=== PATIENT | female | born 1940 | race Caucasian/White ===

== ENCOUNTER → 2017-07-22 | Outpatient (CLI) | payer MEDICARE, BC ==
--- NOTE | 2017-07-22 15:43 | US ---
EXAMINATION TYPE: US thyroid st tissue head/neck DATE OF EXAM: 07/22/2017 COMPARISON: Prior thyroid ultrasound June 14, 2015 CLINICAL HISTORY: L65.9 Hair loss, R53.83 Fatigue. Pt states recent changes in hair loss, fatigue/ fo llow-up GLAND SIZE: Right Lobe: Surgically absent Left Lobe: 5.2 x 2.3 x 2.0 cm Overall Parenchyma: Heterogeneous Isthmus Thickness: 0.4 cm NODULES LEFT: # of nodules measured on left: 2 1. 2.5 X 1.0 x 2.0 cm hypoechoic mixed nodule at the upper pole with well-defined margins; This nod ule is wider than tall and shows intranodular vascularity. Prior size: 2.6 x 1.0 x 1.7 cm 2. 1.4 X 1.0 x 1.4 cm hypoechoic mixed nodule at the lower pole with well-defined margins; This nod ule is wider than tall and shows no intranodular vascularity. Prior size: 0.8 x 0.7 x 0.5 cm ISTHMUS: # of nodules measured in the isthmus: 1 1. 0.9 X 0.5 x 0.7 cm hypoechoic mixed nodule with well-defined margins; This nodule is wider yolanda n tall and shows intranodular vascularity. Prior size: 0.8 x 0.5 x 0.7 cm Bilateral neck scanned, no evidence of lymphadenopathy. Multiple nodules on left, only largest 2 michael ured to compare to previous/ Right lobe surgically absent Heterogeneous prominent left thyroid with scattered mixed nodules remains present. IMPRESSION: Heterogeneous enlarged left thyroid with scattered stable mixed nodules, no definitive new greater th an 1 cm solid or cystic nodules. No suspicious recurrent tissue right thyroid bed.
== END | disposition home or self-care (01) ==
LOC: RADUSWWP 15:01
PROVIDERS: ATTEND Surgery
DX: E04.9 Nontoxic goiter, unspecified (principal); R53.83 Other fatigue; L65.9 Nonscarring hair loss, unspecified
CPT/HCPCS: 76536; 84439; 84443; 84481

== ENCOUNTER → 2017-08-04 | Outpatient (CLI) | payer MEDICARE, BC | END | disposition home or self-care (01) | LOC: LABWHC1 16:11 | PROVIDERS: ATTEND Otolaryngology | DX: J39.2 Other diseases of pharynx (principal) | CPT/HCPCS: 36415; 82565; 84520 ==

== ENCOUNTER → 2017-09-03 | Outpatient (CLI) | payer MEDICARE, BC ==
--- NOTE | 2017-09-04 10:06 | MM ---
Reason for exam: additional evaluation requested from abnormal screening. Last mammogram was performed less than 1 month ago. History: Patient is postmenopausal. Took estrogen for 8 years beginning at age 48. Physical Findings: Nurse did not find any significant physical abnormalities on exam. MG 3D Work Up W/Cad RT Spot compression CC, spot compression MLO, and LM view(s) were taken of the right breast. Prior study comparison: August 25, 2017, bilateral MG 3d screening mammo w/cad. July 02, 2016, bilateral MG 3d screening mammo w/cad. The breast tissue is heterogeneously dense. This may lower the sensitivity of mammography. No suspicious abnormality. The previously seen focal asymmetry resolves on additional views and appear as fibroglandular tissue/overlap. These results were verbally communicated with the patient and result sheet given to the patient on 09/03/17. ASSESSMENT: Negative, BI-RAD 1 RECOMMENDATION: Return to routine screening mammogram schedule for both breasts.
== END | disposition home or self-care (01) ==
LOC: RADMAMWWP 09:18
PROVIDERS: ATTEND Family Medicine
DX: R92.8 Other abnormal and inconclusive findings on diagnostic imaging of breast (principal)
CPT/HCPCS: G0206; G0279

== ENCOUNTER 2017-11-29 14:33 | Emergency (ER) | payer MEDICARE, BC ==
[2017-11-29 14:48] VITALS: TEMP 98.3
[2017-11-29] MEDS ORDERED: IPRATROPIUM-ALBUTEROL 3 ML NEB INHALATION STA (14:59)
--- NOTE | 2017-11-29 15:01 | ED ---
General Adult HPI - General Chief complaint: Back Pain/Injury Stated complaint: Back pain Time Seen by Provider: 11/29/17 14:51 Source: patient, family, RN notes reviewed Mode of arrival: wheelchair Limitations: no limitations - History of Present Illness Initial comments: Patient is a pleasant 77-year-old female presenting to the emergency department with complaints of upper back discomfort. Patient was diagnosed with bronchitis and has been having cough for the past one to 2 weeks. Cough is nonproductive. No fevers. Patient does have a history of mild COPD. Back discomfort started just prior to arrival. No trauma. Patient is also feeling somewhat short of breath. Area of discomfort is the mid thoracic region. - Related Data Home Medications Medication Instructions Recorded Confirmed Loratadine [Claritin] 10 mg PO DAILY 03/18/15 11/29/17 Insulin Detemir [Levemir] 16 unit SQ HS 04/01/16 11/29/17 Insulin Lispro [humaLOG Kwikpen] See Protocol SQ AC-TID PRN 04/01/16 11/29/17 [facility]-3 Fatty Acids/Fish Oil [Fish 1 cap PO DAILY 04/01/16 11/29/17 Oil 1,000 mg Softgel] amLODIPine [Norvasc] 10 mg PO DAILY 04/01/16 11/29/17 Temazepam [Temazepam] 30 mg PO HS 04/09/16 11/29/17 Cholecalciferol [Vitamin D3] 1,000 unit PO DAILY 07/30/17 11/29/17 Montelukast Sodium [Singulair] 10 mg PO HS 07/30/17 11/29/17 Albuterol Nebulized [Ventolin 2.5 mg INHALATION RT-Q4H PRN 11/29/17 11/29/17 Nebulized] Biotin 5 mg PO DAILY 11/29/17 11/29/17 Losartan Potassium [Cozaar] 50 mg PO DAILY 11/29/17 11/29/17 Promethazine HCl/Codeine 5 ml PO Q6H PRN 11/29/17 11/29/17 [Prometh-Codein 6.25-10 mg/5 ml] Simvastatin [Zocor] 5 mg PO HS 11/29/17 11/29/17 predniSONE See Taper PO DIRECTED 11/29/17 11/29/17 Allergies Allergy/AdvReac Type Severity Reaction Status Date / Time sulfamethoxazole AdvReac Unknown Verified 11/29/17 16:35 [From Bactrim] trimethoprim [From Bactrim] AdvReac Unknown Verified 11/29/17 16:35 Review of Systems ROS Statement: Those systems with pertinent positive or pertinent negative responses have been documented in the HPI. ROS Other: All systems not noted in ROS Statement are negative. Constitutional: Denies: fever, chills Eyes: Denies: eye pain ENT: Denies: throat pain Respiratory: Reports: cough, dyspnea Cardiovascular: Denies: chest pain Endocrine: Denies: fatigue Gastrointestinal: Denies: abdominal pain, vomiting Genitourinary: Denies: dysuria Musculoskeletal: Reports: back pain Skin: Denies: rash Neurological: Denies: weakness Past Medical History Past Medical History: Diabetes Mellitus, Hypertension, Musculoskeletal Disorder , Sleep Apnea/CPAP/BIPAP, Thyroid Disorder Additional Past Medical History / Comment(s): HX OF THYROID NODULES, HX OF RUPTURED DISCS, SLEEP APNEA WITH BI-PAP MACHINE, [employer] PACEMAKER. History of Any Multi-Drug Resistant Organisms: None Reported Past Surgical History: Appendectomy, Back Surgery, Bariatric Surgery, Coronary Bypass/CABG, Heart Catheterization, Hysterectomy, Pacemaker Additional Past Surgical History / Comment(s): LAP BAND, CATARACT LEFT EYE, NEUROMA ON FOOT, KNEE ARTHROSCOPY, PACEMAKER ([employer] 04/18/2015) Partial thyroidectomy 1999 Past Anesthesia/Blood Transfusion Reactions: No Reported Reaction Type of Cardiac Device: Permanent Pacemaker Device Placement Date:: 04/18/2015 [employer] Past Psychological History: No Psychological Hx Reported Smoking Status: Current every day smoker Past Alcohol Use History: Occasional Past Drug Use History: None Reported - Past Family History Son(s) Family Medical History: Cancer Additional Family Medical History / Comment(s): MELANOMA Father History Unknown: Yes Family Medical History: Cancer Mother Family Medical History: Coronary Artery Disease (CAD) General Exam Limitations: no limitations General appearance: alert, in no apparent distress Head exam: Present: atraumatic Eye exam: Present: normal appearance ENT exam: Present: normal oropharynx Neck exam: Present: normal inspection Respiratory exam: Present: normal lung sounds bilaterally. Absent: chest wall tenderness Cardiovascular Exam: Present: regular rate, normal rhythm Expanded Peripheral pulses: 2+: Radial (R), Radial (L), Posterior Tibialis (R), Posterior Tibialis (L) GI/Abdominal exam: Present: soft. Absent: tenderness Extremities exam: Present: normal inspection. Absent: pedal edema, calf tenderness Back exam: Present: normal inspection. Absent: tenderness Neurological exam: Present: alert Psychiatric exam: Present: normal affect, normal mood Skin exam: Present: normal color. Absent: rash Course Vital Signs 11/29/17 11/29/17 11/29/17 14:46 15:15 15:28 Temperature 98.3 F Pulse Rate 64 66 68 Respiratory 18 Rate Blood Pressure 138/65 Blood Pressure [Left Arm] Blood Pressure [Right Arm] O2 Sat by Pulse 96 Oximetry 11/29/17 11/29/17 16:47 19:20 Temperature Pulse Rate 89 Respiratory 20 Rate Blood Pressure 147/82 Blood Pressure 179/77 [Left Arm] Blood Pressure 173/81 [Right Arm] O2 Sat by Pulse 96 Oximetry EKG Findings - EKG Comments: EKG Findings:: Paced rhythm at 61. AL 186. QRS 98. QT 406. QTc 408. Left axis. LVH criteria. Biphasic lateral T waves. Medical Decision Making - Medical Decision Making Patient reevaluated and resting comfortably in bed. Patient now symptom-free. Patient and family updated on results. Patient also notified of limitations of tests in the emergency department. Patient is advised admission. Patient is made aware that heart disease and other causes of her back discomfort have not been completely ruled out at this time. Plan was for patient to stay overnight with repeat testing and cardiology evaluation. Patient states she does not have any symptoms at this time and does not want to stay. Patient is advised she would need to leave AGAINST MEDICAL ADVICE. Patient does demonstrate medical decision making. Family is present. - Lab Data Result diagrams: 11/29/17 15:07 11/29/17 15:07 Lab Results 11/29/17 11/29/17 11/29/17 Range/Units 15:07 15:07 15:07 WBC 11.6 H (3.8-10.6) k/uL RBC 4.83 (3.80-5.40) m/uL Hgb 14.5 (11.4-16.0) gm/dL Hct 42.2 (34.0-46.0) % MCV 87.3 (80.0-100.0) fL MCH 30.0 (25.0-35.0) pg MCHC 34.4 (31.0-37.0) g/dL RDW 13.3 (11.5-15.5) % Plt Count 244 (150-450) k/uL Neutrophils % (Manual) 86 % Band Neutrophils % 1 % Lymphocytes % (Manual) 8 % Monocytes % (Manual) 3 % Eosinophils % (Manual) 2 % Neutrophils # (Manual) 10.00 H (1.3-7.7) k/uL Lymphocytes # (Manual) 0.93 L (1.0-4.8) k/uL Monocytes # (Manual) 0.35 (0-1.0) k/uL Eosinophils # (Manual) 0.23 (0-0.7) k/uL Nucleated RBCs 0 (0-0) /100 WBC Manual Slide Review Performed PT (9.0-12.0) sec INR (<1.2) APTT (22.0-30.0) sec D-Dimer (<0.60) mg/L FEU Sodium 141 (137-145) mmol/L Potassium 4.9 (3.5-5.1) mmol/L Chloride 110 H (98-107) mmol/L Carbon Dioxide 19 L (22-30) mmol/L Anion Gap 12 mmol/L BUN 38 H (7-17) mg/dL Creatinine 1.68 H (0.52-1.04) mg/dL Est GFR (CKD-EPI)AfAm 34 (>60 ml/min/1.73 sqM) Est GFR (CKD-EPI)NonAf 29 (>60 ml/min/1.73 sqM) Glucose 248 H (74-99) mg/dL Calcium 8.5 (8.4-10.2) mg/dL Magnesium 2.0 (1.6-2.3) mg/dL Total Bilirubin 0.6 (0.2-1.3) mg/dL AST 17 (14-36) U/L ALT 22 (9-52) U/L Alkaline Phosphatase 78 (38-126) U/L Total Creatine Kinase 59 (30-135) U/L CK-MB (CK-2) <0.2 (0.0-2.4) ng/mL CK-MB (CK-2) Rel Index Troponin I <0.012 (0.000-0.034) ng/mL Total Protein 5.9 L (6.3-8.2) g/dL Albumin 3.0 L (3.5-5.0) g/dL 11/29/17 Range/Units 15:07 WBC (3.8-10.6) k/uL RBC (3.80-5.40) m/uL Hgb (11.4-16.0) gm/dL Hct (34.0-46.0) % MCV (80.0-100.0) fL MCH (25.0-35.0) pg MCHC (31.0-37.0) g/dL RDW (11.5-15.5) % Plt Count (150-450) k/uL Neutrophils % (Manual) % Band Neutrophils % % Lymphocytes % (Manual) % Monocytes % (Manual) % Eosinophils % (Manual) % Neutrophils # (Manual) (1.3-7.7) k/uL Lymphocytes # (Manual) (1.0-4.8) k/uL Monocytes # (Manual) (0-1.0) k/uL Eosinophils # (Manual) (0-0.7) k/uL Nucleated RBCs (0-0) /100 WBC Manual Slide Review PT 10.5 (9.0-12.0) sec INR 1.1 (<1.2) APTT 20.4 L (22.0-30.0) sec D-Dimer 6.00 H (<0.60) mg/L FEU Sodium (137-145) mmol/L Potassium (3.5-5.1) mmol/L Chloride (98-107) mmol/L Carbon Dioxide (22-30) mmol/L Anion Gap mmol/L BUN (7-17) mg/dL Creatinine (0.52-1.04) mg/dL Est GFR (CKD-EPI)AfAm (>60 ml/min/1.73 sqM) Est GFR (CKD-EPI)NonAf (>60 ml/min/1.73 sqM) Glucose (74-99) mg/dL Calcium (8.4-10.2) mg/dL Magnesium (1.6-2.3) mg/dL Total Bilirubin (0.2-1.3) mg/dL AST (14-36) U/L ALT (9-52) U/L Alkaline Phosphatase (38-126) U/L Total Creatine Kinase (30-135) U/L CK-MB (CK-2) (0.0-2.4) ng/mL CK-MB (CK-2) Rel Index Troponin I (0.000-0.034) ng/mL Total Protein (6.3-8.2) g/dL Albumin (3.5-5.0) g/dL - Radiology Data Radiology results: report reviewed (VQ scan low probability for pulmonary embolism.), image reviewed (Chest x-ray shows no acute process.) Disposition Clinical Impression: Back pain Disposition: Left Against Medical Advice Instructions: Back Pain (ED), Acute Bronchitis (ED) Additional Instructions: Please follow-up with your primary care physician Friday. Return for increased pain, chest pain, difficulty breathing, worsening or change in symptoms or other concerns. You are leaving AGAINST MEDICAL ADVICE. Referrals: Carissa Ward MD [Primary Care Provider] - 1-2 days Time of Disposition: 19:28
[2017-11-29 15:39] LABS: Calcium 8.5 mg/dL (8.4-10.2); Potassium 4.9 mmol/L (3.5-5.1); Total Bilirubin 0.6 mg/dL (0.2-1.3); Total Protein 5.9 g/dL (6.3-8.2)
[2017-11-29 15:42] LABS: Creatine Kinase 59 U/L (30-135)
--- NOTE | 2017-11-29 15:44 | XR ---
EXAMINATION TYPE: XR chest 2V DATE OF EXAM: 11/29/2017 COMPARISON: Prior chest 07/11/2017 HISTORY: Chest pain, back pain TECHNIQUE: Frontal and lateral views of the chest are obtained. FINDINGS: There is no focal air space opacity, pleural effusion, or pneumothorax seen. The cardiac silhouette size is within normal limits. Patient is post median sternotomy. Pacemaker is stable. The re are overlying cardiac leads, patient is post lap band. Prominent lung volume may be indicative of underlying COPD. The osseous structures are intact. IMPRESSION: No acute cardiopulmonary process.
[2017-11-29 15:54] LABS: INR 1.1 (<1.2); Prothrombin Time 10.5 sec (9.0-12.0)
[2017-11-29 15:55] LABS: Creatine Kinase MB <0.2 ng/mL (0.0-2.4); Troponin I <0.012 ng/mL (0.000-0.034)
[2017-11-29 16:15] LABS: Partial Thromboplastin Time 20.4 sec (22.0-30.0)
[2017-11-29 16:17] LABS: HCT 42.2 % (34.0-46.0); HGB 14.5 gm/dL (11.4-16.0); MCHC 34.4 g/dL (31.0-37.0); MCV 87.3 fL (80.0-100.0); Mean Platelet Volume 7.9; Platelet Count 244 k/uL (150-450); RBC 4.83 m/uL (3.80-5.40); RDW 13.3 % (11.5-15.5); WBC 11.6 k/uL (3.8-10.6)
[2017-11-29 16:40] LABS: Band Neutrophils % 1 %; Eosinophils # (M) 0.23 k/uL (0-0.7); Lymphocytes # (M) 0.93 k/uL (1.0-4.8); Monocytes # (M) 0.35 k/uL (0-1.0); Neutrophils % (M) 86 %; Nucleated Red Blood Cells 0 /100 WBC (0-0); Total Cells Counted 100
[2017-11-29 19:00] VITALS: RESP 20
--- NOTE | 2017-11-29 19:08 | NM ---
EXAMINATION TYPE: NM pul vent and perfuse DATE OF EXAM: 11/29/2017 COMPARISON: Chest x-ray same date HISTORY: Pain and dyspnea TECHNIQUE: Utilizing inhalation of 72.3 mCi Tc 99m DTPA aerosol and intravenous injection of 5.4 mCi of Tc 99m MAA, ventilation and perfusion images are acquired post injection in multiple projections. FINDINGS: There is heterogeneous uptake on ventilation and perfusion imaging, perfusion somewhat better uptake than on ventilation imaging. No ventilation/perfusion mismatches are evident. Focal subsegmental matc inga defects are also present. IMPRESSION: Low probability for pulmonary embolism.
[2017-11-29 19:21] VITALS: BP 179/77
[2017-11-29 19:29] VITALS: PULSE 60
== END 2017-11-29 19:44 | disposition left against medical advice (07) ==
LOC: EC 14:33
DX: M54.9 Dorsalgia, unspecified (principal); E11.9 Type 2 diabetes mellitus without complications; I10 Essential (primary) hypertension; J44.9 Chronic obstructive pulmonary disease, unspecified; F17.200 Nicotine dependence, unspecified, uncomplicated; G47.30 Sleep apnea, unspecified; Z99.89 Dependence on other enabling machines and devices; Z98.890 Other specified postprocedural states; Z95.1 Presence of aortocoronary bypass graft; Z95.5 Presence of coronary angioplasty implant and graft; Z79.4 Long term (current) use of insulin; Z79.52 Long term (current) use of systemic steroids; Z79.899 Other long term (current) drug therapy; Z88.2 Allergy status to sulfonamides
CPT/HCPCS: 36415; 94640; 93005; 85379; 80053; 82550; 82553; 83735; 84484; 85025; 85610; 85730; 71046; 78582; 99284; A9540; A9567

== ENCOUNTER → 2017-12-10 | Outpatient (CLI) | payer MEDICARE, BC ==
--- NOTE | 2017-12-10 15:43 | XR ---
EXAMINATION TYPE: XR Hip Limited LT DATE OF EXAM: 12/10/2017 COMPARISON: NONE HISTORY: Pain TECHNIQUE: 2 views submitted FINDINGS: There is no evidence of erosive change or acute fracture. Hypertrophic change of the acetabulum and narrowing of the joint space noted. Vascular calcification seen. Soft tissue ossification adjacent to the greater trochanter. IMPRESSION: 1. Left hip arthropathy correlate for femoral acetabular impingement.
--- NOTE | 2017-12-10 15:44 | XR ---
EXAMINATION TYPE: XR knee complete RT DATE OF EXAM: 12/10/2017 COMPARISON: NONE HISTORY: Chronic knee pain TECHNIQUE: Four views are submitted. FINDINGS: Narrowing of the joint space is seen. While hypertrophic spurring along the medial compartment noted on the lateral view. Suggestion of chondrocalcinosis. Diffuse osteopenia and vascular calcifications noted. Osseous structures are intact. No acute fracture seen. IMPRESSION: 1. Mild arthritic changes correlate for osteoarthritis.
== END | disposition home or self-care (01) ==
LOC: RADXRMAIN 15:18
PROVIDERS: ATTEND Family Medicine
DX: M16.12 Unilateral primary osteoarthritis, left hip (principal); M17.11 Unilateral primary osteoarthritis, right knee
CPT/HCPCS: 73501

== ENCOUNTER → 2018-03-31 | Outpatient (CLI) | payer OTHER ==
--- NOTE | 2018-03-31 15:42 | CT ---
EXAMINATION TYPE: CT pelvis wo con DATE OF EXAM: 03/31/2018 COMPARISON: None HISTORY: Left hip pain after fall injury x4 days ago CT DLP: 781.[address] of the pelvis was performed with bone and soft tissue window settings submitted. Brown l and sagittal reconstruction is also reviewed. FINDINGS: No visible displaced or impacted fracture. Moderate to severe degenerative changes lumbar spine great est at L5-S1. Spondylosis noted. Moderate degenerative narrowing bilateral hip joint spaces. Associat ed spur formation of the bilateral hips. No soft tissue mass or collection appreciated. Incidental hy sterectomy changes seen. IMPRESSION: NO EVIDENCE FOR DISPLACED OR IMPACTED FRACTURE.
== END | disposition home or self-care (01) ==
LOC: RADCTMAIN 15:04
PROVIDERS: ATTEND Emergency Medicine
DX: S70.02XA Contusion of left hip, initial encounter (principal)
CPT/HCPCS: 72192

== ENCOUNTER → 2018-03-31 | Outpatient (CLI) | payer OTHER ==
--- NOTE | 2018-03-31 12:25 | XR ---
EXAMINATION TYPE: XR tibia fibula bilateral DATE OF EXAM: 03/31/2018 COMPARISON: NONE HISTORY: Pain TECHNIQUE: Two views are submitted. FINDINGS: The osseous structures are intact. Arthropathy of the knee is noted. There is diffuse osteopenia.. C alcaneal spurs noted. Surgical clips are seen in the soft tissues of the left lower extremity. Athero sclerotic change of the vasculature. IMPRESSION: 1. No acute osseous abnormality.
--- NOTE | 2018-03-31 12:28 | XR ---
EXAMINATION TYPE: XR Hip Complete LT DATE OF EXAM: 03/31/2018 COMPARISON: NONE HISTORY: Pain TECHNIQUE: 2 views submitted FINDINGS: There is no evidence of erosive change or acute fracture. Narrowing of the joint space seen with hype rtrophic change of the acetabulum. Vascular calcifications are noted. IMPRESSION: 1. No evidence of acute fracture or dislocation. 2. Post arthritic changes.
--- NOTE | 2018-03-31 12:30 | XR ---
EXAMINATION TYPE: XR knee complete bilateral DATE OF EXAM: 03/31/2018 COMPARISON: NONE HISTORY: Pain TECHNIQUE: Three views are submitted bilaterally. FINDINGS: Surgical clips are seen in the soft tissues adjacent to the knee and there are vascular calcification s. There is narrowing of the joint spaces without evidence of erosive change. Vascular calcifications are noted. IMPRESSION: 1. No acute fracture.
--- NOTE | 2018-03-31 12:32 | XR ---
EXAMINATION TYPE: XR pelvis complete DATE OF EXAM: 03/31/2018 COMPARISON: NONE HISTORY: Pain The osseous structures are intact and there is narrowing of the hip joints bilaterally with hypertrop hic changes. Calcifications in the pelvis appear to be vascular. Deformity involving the left inferio r pubic ramus is noted vascular calcifications are seen. Degenerative change lower lumbar spine. No a cute fracture is seen. Visualized bowel gas pattern is nonspecific. IMPRESSION: 1. Deformity along the left inferior pubic ramus not seen on the previous exam. This may still be chr onic. Recommend CT scan for further evaluation..
== END | disposition home or self-care (01) ==
LOC: RADXRMAIN 10:54
PROVIDERS: ATTEND Emergency Medicine
DX: M95.5 Acquired deformity of pelvis (principal); M16.52 Unilateral post-traumatic osteoarthritis, left hip; S80.01XA Contusion of right knee, initial encounter; S80.02XA Contusion of left knee, initial encounter
CPT/HCPCS: 73502

== ENCOUNTER → 2018-04-13 | Outpatient (CLI) | payer OTHER ==
--- NOTE | 2018-04-13 17:38 | CT ---
EXAMINATION TYPE: CT knee RT wo con with 3-D reconstruction renderings DATE OF EXAM: 04/13/2018 COMPARISON: 03/31/2018 HISTORY: Right knee pain after slip and fall. CT DLP: 419.5 mGycm. Automated exposure control for dose reduction was used. 3-D postprocessing was o btained at an independent workstation. FINDINGS: There is no fracture or malalignment. There is generalized osteopenia. There is also a "moth-eaten" distribution of subcentimeter osteopenia throughout the trabecula of the visualized lower femur, upper tibia and upper fibula. This moderately heterogeneous nonspecific find ing but peripheral blood smear correlation is requested, in order to exclude for infiltrating process . Mild tricompartmental osteoarthritis changes are appreciated. There is fluid anterior to the patellar tendon, consistent with infrapatellar bursitis. Soft tissues are otherwise unremarkable. IMPRESSION: 1. NEGATIVE FOR FRACTURE OR MALALIGNMENT. 2. INFRAPATELLAR BURSITIS, MILD-MODERATE DEGREE. 3. MODERATELY HETEROGENEOUS OSTEOPENIA PATTERN FOR WHICH PERIPHERAL BLOOD SMEAR CORRELATION IS REQUES
== END | disposition home or self-care (01) ==
LOC: RADCTMAIN 16:10
PROVIDERS: ATTEND Emergency Medicine
DX: M70.51 Other bursitis of knee, right knee (principal); M85.861 Other specified disorders of bone density and structure, right lower leg

== ENCOUNTER → 2018-06-05 | Outpatient (CLI) | payer MEDICARE, BC ==
--- NOTE | 2018-06-24 10:29 | P.ARTDOP ---
Arterial Doppler LOWER EXTREMITY ARTERIAL DOPPLER: DATE OF SERVICE: 06/06/2018 Reason for study: Suspected vascular disease with decreased pulses. Doppler waveforms: Atypical waveforms throughout bilaterally. Waveforms are sharp down to the dorsalis pedis but digital waveforms are flat.. Pulse volume recording: []. Pressure gradients: Moderate gradient on the left at the thigh level and mild gradient at the right thigh level significant infrapopliteal gradients as well.. Ankle-brachial indices: 0.46 on the right and 0.4 on the left. Toe pressures: [] on the right, [] on the left Impression: Suggests at least moderate bilateral femoral popliteal occlusive disease. Suspect significant distal disease. Possible iliac component. Clinical assessment warranted depending on symptoms.
== END | disposition home or self-care (01) ==
LOC: RADUSWWP 10:05
PROVIDERS: ATTEND Family Medicine
DX: Z53.9 Procedure and treatment not carried out, unspecified reason (principal)

== ENCOUNTER → 2018-06-05 | Outpatient (CLI) | payer MEDICARE, BC ==
[2018-06-05 14:04] LABS: Appearance,Urine Cloudy (Clear); Bacteria,Urine Many /hpf; Bilirubin,Urine Negative (Negative); Blood,Urine Negative (Negative); Color,Urine Yellow; Glucose,Urine (UA) Trace (Negative); Ketones,Urine Negative (Negative); Leukocyte Esterase,Urine Small (Negative); Nitrite,Urine Negative (Negative); Protein,Urine 3+ (Negative); Specific Gravity,Urine 1.015 (1.001-1.035); Urobilinogen,Urine <2.0 mg/dL (<2.0); WBC,Urine 21 /hpf (0-5)
[2018-06-05 14:05] LABS: Basophils % (A) 0 %; Eosinophils # (A) 0.1 k/uL (0-0.7); Eosinophils % (A) 1 %; HCT 41.3 % (34.0-46.0); HGB 12.9 gm/dL (11.4-16.0); Lymphocytes # (A) 1.8 k/uL (1.0-4.8); Lymphocytes % (A) 22 %; MCH 29.3 pg (25.0-35.0); MCHC 31.2 g/dL (31.0-37.0); Mean Platelet Volume 7.9; Monocytes # (A) 0.9 k/uL (0-1.0); Monocytes % (A) 11 %; Neutrophils # (A) 4.9 k/uL (1.3-7.7); Neutrophils % (A) 62 %; Platelet Count 175 k/uL (150-450); RDW 13.6 % (11.5-15.5); WBC 7.9 k/uL (3.8-10.6)
[2018-06-05 14:23] LABS: Calcium 9.6 mg/dL (8.4-10.2); Magnesium 2.2 mg/dL (1.6-2.3); Phosphorus 4.8 mg/dL (2.5-4.5); Uric Acid 7.8 mg/dL (3.7-7.4)
[2018-06-05 14:48] LABS: Reticulocyte % 1.9 % (0.5-2.0)
--- NOTE | 2018-06-05 15:19 | NM ---
EXAMINATION TYPE: NM bone/joint multiple DATE OF EXAM: 06/05/2018 COMPARISON: CT right knee 04/13/2018, CT pelvis 03/31/2018, right leg and knee 03/31/2018 HISTORY: Trauma March 2018, right knee pain, left hip pain TECHNIQUE: After the intravenous administration of 24.1 mCi Tc 99m MDP. Immediate images and 3 hour s post injection images acquired. Images of the pelvis and lower extremities obtained FINDINGS: Mild uptake noted within the hips, knees compatible with arthropathy. Soft tissue uptake is normal. Mild uptake in the lower lumbar spine compatible with degenerative disc disease. No abnormal uptake to suggest metastatic disease. IMPRESSION: No abnormality evident to suggest fracture. Findings compatible with underlying arthropat hy.
--- NOTE | 2018-06-05 16:10 | US ---
EXAMINATION TYPE: US thyroid st tissue head/neck DATE OF EXAM: 06/05/2018 COMPARISON: Prior thyroid ultrasound 07/22/2017 CLINICAL HISTORY: R94.6 Abnormal TSH. Tired and cold. GLAND SIZE: Right Lobe: Surgically absent cm Left Lobe: 5.2 x 2.5 x 2.3 cm Overall Parenchyma: heterogeneous Isthmus Thickness: 0.5 cm NODULES LEFT: # of nodules measured on left: 2 1. 1.1 X 0.9 x 1.1 cm echogenic mixed nodule at the lower pole with well-defined margins; . This n odule is wider than tall and shows no intranodular vascularity. Prior size: 1.4 x 1.0 x 1.4 cm 2. .7 X .6 x .7 cm echogenic mixed nodule at the upper pole with well-defined margins; . This nodul e is wider than tall and shows intranodular vascularity. 3. Mixed hypoechoic nodule not measured by the technologist medially within the left lobe measures ap proximately 2.4 cm and shows less cystic component than on prior. ISTHMUS: # of nodules measured in the isthmus: 2 1. .7 X .6 x .6 cm hypoechoic mixed nodule well-defined margins; . This nodule is taller than wide and shows intranodular vascularity. Prior size: 0.8 x 0.7 x 0.5 cm 2. .9 X .4 x .6 cm hypoechoic mixed nodule pole with well-defined margins; . This nodule is wider than tall and shows no intranodular vascularity. Prior size: New nodule compared to previous. IMPRESSION: Status post right hemithyroidectomy. Multinodular goiter as described, multiple colloid cysts are not ed.
[2018-06-05 18:13] LABS: Iron Saturation 18.66 (12.00-45.00); Protein, Total 6.4 g/dL (6.2-8.2)
[2018-06-05 18:17] LABS: Parathyroid Hormone Intact 63.1 pg/mL (14.0-72.0)
[2018-06-05 18:18] LABS: Thyroid Peroxidase Antibodies 40.2 U/mL (0.0-60.0); Vitamin D 25 Hydroxy 23.4 ng/mL (30.0-100.0)
[2018-06-08 09:27] LABS: Albumin 3.36 g/dL (3.80-4.90); Gamma Globulin 0.94 g/dL (0.70-1.50)
== END | disposition home or self-care (01) ==
LOC: RADNMMAIN 10:02
PROVIDERS: ATTEND Internal Medicine Cardiovascular Disease
DX: I80.3 Phlebitis and thrombophlebitis of lower extremities, unspecified (principal); E04.2 Nontoxic multinodular goiter; E89.0 Postprocedural hypothyroidism; E87.8 Other disorders of electrolyte and fluid balance, not elsewhere classified; R73.9 Hyperglycemia, unspecified; D64.9 Anemia, unspecified; E55.9 Vitamin D deficiency, unspecified; N39.0 Urinary tract infection, site not specified; I50.9 Heart failure, unspecified; I49.9 Cardiac arrhythmia, unspecified; I08.0 Rheumatic disorders of both mitral and aortic valves; I95.9 Hypotension, unspecified; Z79.899 Other long term (current) drug therapy
CPT/HCPCS: 84439; 84481; 83880; 80051; 82308; 82728; 82310; 82565; 82550; 82977; 83540; 83550; 83735; 84075; 84100; 84443; 84450; 84460; 84520; 84550; 85025; 85045; 81001; 84165; 86800; 86376; 82306; 83970; 87086; 87077; 87186; 76536; 93923; 78305; A9503

== ENCOUNTER → 2018-12-03 | Outpatient (CLI) | payer MEDICARE, BC | END | disposition home or self-care (01) | LOC: LABWHC1 16:40 | PROVIDERS: ATTEND Family Medicine | DX: E11.40 Type 2 diabetes mellitus with diabetic neuropathy, unspecified (principal) | CPT/HCPCS: 36415; 84681 ==

== ENCOUNTER → 2018-12-29 | Outpatient (CLI) | payer MEDICARE, BC ==
--- NOTE | 2018-12-30 09:27 | BD ---
EXAMINATION TYPE: Axial Bone Density DATE OF EXAM: 12/29/2018 COMPARISON: 09.06.2009 CLINICAL HISTORY: 78 YR OLD FEMALE...ICD-10 CODE: Z13.820 OSTEOPOROSIS SCREENING Height: 65 Weight: 207 FRAX RISK QUESTIONS: Glucocorticoids (More than 3mos): YES (Ex: prednisone, prednisolone, methylprednisolone, dexamethasone, and hydrocortisone). Secondary Osteoporosis: YES 1. Type 1 Diabetes: YES 3. Menopause before 45: YES Current Tobacco Use: YES RISK FACTORS HISTORY OF: Surgery to Spine...L5/S1...LAMINECTOMY...1984 Postmenopausal woman: HYST AT AGE 40 YRS OLD If Premenopausal, do you have irregular periods: AT FIRST FOR ABOUT 5 YRS, NONE NOW Lost more than 2 inches in height since high school: YES MEDICATIONS: Prednisone or other steroids: NEBULIZER, FOR CHRONIC BRONCHITIS, SYMBICORT, How Long: MANY YRS Additional Medications: CHOLESTEROL MEDS, BP MEDS , INSULIN, VIT D, Additional History: INSULIN DIABETIC, HYPERTENSION, CHOLESTEROL, ARTHRITIS, EXAM MEASUREMENTS: Bone mineral densitometry was performed using the [employer] System. LAMINECTOMY 1984...L5/S1 Bone mineral density about the R hip (g/cm2): 1.172 Bone mineral density about the L hip (g/cm2): 1.155 T Score values are as follows: -----R Neck: 0.0 -----L Neck: -1.3 -----R Total: 1.3 -----L Total: 1.2 Bone mineral density has: Increased 2.0% since study of: 09.06.2009 Bone mineral density about the L Wrist (g/cm2): 0.478 T Score values are as follows: -----Dist. R+U: -1.8 -----Prox. R+U: -2.0 -----Radius total: -2.5 Bone mineral density FIRST BONE DENSITY FOR WRIST FRAX%s: THERE IS A 17.7% CHANCE FOR A MAJOR OSTEOPOROTIC FX AND A 6.3% FOR HIP....PROBABILITY OF FX IN 10 YRS TIME IMPRESSION: Osteopenia (T Score between -2.5 and -1). Values approach osteoporosis with regards to the left radiu s. There is slightly increased risk of fracture and the patient may be considered for treatment. Re-Screen 2-5 years. NOTE: T-SCORE=SD OF THE YOUNG ADULT MEAN.
--- NOTE | 2018-12-31 10:31 | MM ---
Reason for exam: screening (asymptomatic). Last mammogram was performed 1 year and 4 months ago. History: Patient is postmenopausal. Took estrogen for 8 years beginning at age 48. Physical Findings: A clinical breast exam by your physician is recommended on an annual basis and results should be correlated with mammographic findings. MG 3D Screening Mammo W/Cad Bilateral CC and MLO view(s) were taken. Prior study comparison: September 03, 2017, right breast MG 3d work up w/cad RT. August 25, 2017, bilateral MG 3d screening mammo w/cad. Finding: There are typically benign stable grouped/clustered calcifications in both breasts. No significant changes in finding since September 03, 2017 and August 25, 2017. ASSESSMENT: Benign, BI-RAD 2 RECOMMENDATION: Routine screening mammogram of both breasts in 1 year.
== END | disposition home or self-care (01) ==
LOC: RADMAMWWP 14:48
PROVIDERS: ATTEND Family Medicine
DX: Z12.31 Encounter for screening mammogram for malignant neoplasm of breast (principal); Z13.820 Encounter for screening for osteoporosis; M85.80 Other specified disorders of bone density and structure, unspecified site; M81.0 Age-related osteoporosis without current pathological fracture
CPT/HCPCS: 77063; 77067; 77080

== ENCOUNTER → 2019-07-01 | Outpatient (CLI) | payer MEDICARE, BC ==
[~2019-07-01] MED LIST: REGADENOSON 0.4 MG/5 ML SYRINGE IV ONE
--- NOTE | 2019-07-01 11:54 | NM ---
EXAMINATION TYPE: NM stress lexiscan cardiolite DATE OF EXAM: 07/01/2019 COMPARISON: NONE HISTORY: E87.8, coronary artery bypass graft, coronary artery disease, I11.0 TECHNIQUE: After the intravenous administration of 9.48 mCi Tc 99m Sestamibi - Cardiolite resting SP ECT images acquired 45 minutes post injection. The patient received 0.4mg Lexiscan, 26.2 mCi Tc 99m Sestamibi - Stress images obtained [address] injection FINDINGS: Review of stress and rest SPECT images demonstrates decreased radio pharmaceutical uptake along the i nferior wall the left ventricle on stress images as compared to rest images towards the base of the h eart. Gated analysis shows normal wall motion with an estimated left ventricular ejection fraction o f 52 %. IMPRESSION: Pharmacologically induced left ventricular myocardial ischemia. Results relayed to the office of Dr.R hayes at the time of interpretation.
--- NOTE | 2019-07-01 12:26 | P.STRESS ---
- Stress Test Note Stress Test Results/Findings: Exam Performed: NM stress lexiscan cardiolite Exam Date: 07/01/19 Reason for Exam: SOB Height: 5 ft 6 in Weight: 92.986 kg Protocol: LEXISCAN Stage: NA Duration of Exercise: NA Resting Heart Rate: 67 Resting Blood Pressure: 170/74 Maximum Achieved Heart Rate: 68 Maximum Achieved Blood Pressure: 182/62 85% PMHR: NA 100% PMHR: NA METS: NA Technologist Comment: Stress Test Results/Findings: This is a 79-year-old female with history of hypertension, diabetes, family history of ischemic heart disease being evaluated for symptoms of shortness of breath. Stress data: Baseline EKG showed dual-chamber pacemaker rhythm with a DDD pacing. Blood pressure at rest is 170/74 with pulse rate of 67. A standard dose of Lexiscan was infused. EKGs taken during the exercise showed pacemaker rhythm with intermittent sinus rhythm with a deep T-wave changes in inferolateral leads. Final impression: #1. Nondiagnostic scan stress test because of baseline EKG changes #2. Report of the nuclear images to be given by the radiologist.
== END | disposition home or self-care (01) ==
LOC: RADNMMAIN 08:18
PROVIDERS: ATTEND Internal Medicine Cardiovascular Disease
DX: I25.9 Chronic ischemic heart disease, unspecified (principal); I11.0 Hypertensive heart disease with heart failure
CPT/HCPCS: 93017; 78452; A9500; J2785

== ENCOUNTER → 2019-07-23 | Outpatient (CLI) | payer MEDICARE, BC ==
--- NOTE | 2019-07-24 15:12 | US ---
EXAMINATION TYPE: US renals and bladder DATE OF EXAM: 07/23/2019 COMPARISON: None CLINICAL HISTORY: N25.89 Other disorders resulting from impaired melissa. Abnormal labs EXAM MEASUREMENTS: Right Kidney: 10.1 x 4.7 x 4.2 cm Left Kidney: 9.7 x 5.7 x 4.5 cm Right Kidney: No evidence of hydronephrosis, possible fluid or edema anterior to kidney Left Kidney: No evidence of hydronephrosis Bladder: wnl Bilateral Jets seen: No There is no evidence for hydronephrosis at this point in time. No nephrolithiasis is seen. No lesly s are identified. The urinary bladder is anechoic. Bilateral ureteral jets are seen. IMPRESSION: Possible trace amount of fluid in the hepatorenal fossa. Otherwise unremarkable exam with no hydronephrosis or nephrolithiasis.
== END | disposition home or self-care (01) ==
LOC: RADUSMAIN 18:06
PROVIDERS: ATTEND Family Medicine
DX: N25.89 Other disorders resulting from impaired renal tubular function (principal)
CPT/HCPCS: 76770

== ENCOUNTER → 2019-10-12 | Outpatient (CLI) | payer MEDICARE, BC ==
[2019-10-12 17:46] LABS: HCT 38.3 % (34.0-46.0); HGB 11.9 gm/dL (11.4-16.0); Hypochromasia Slight; MCH 28.6 pg (25.0-35.0); MCHC 31.1 g/dL (31.0-37.0); Mean Platelet Volume 8.3; Platelet Count 196 k/uL (150-450); RBC 4.16 m/uL (3.80-5.40); RDW 13.8 % (11.5-15.5); WBC 6.5 k/uL (3.8-10.6)
[2019-10-12 18:21] LABS: Appearance,Urine Cloudy (Clear); Bacteria,Urine Many /hpf; Bilirubin,Urine Negative (Negative); Blood,Urine Small (Negative); Color,Urine Light Yellow; Glucose,Urine (UA) 1+ (Negative); Hyaline Casts,Urine 7 /lpf (0-2); Ketones,Urine Negative (Negative); Leukocyte Esterase,Urine Small (Negative); Mucus,Urine Rare /hpf; Nitrite,Urine Negative (Negative); Protein,Urine 3+ (Negative); RBC,Urine 11 /hpf (0-5); Specific Gravity,Urine 1.013 (1.001-1.035); Squamous Epithelial Cell,Urine 1 /hpf (0-4); Urobilinogen,Urine <2.0 mg/dL (<2.0); WBC,Urine 90 /hpf (0-5)
[2019-10-13 00:59] LABS: Urine Creatinine 56.9 mg/dL
[2019-10-13 01:51] LABS: % Iron Saturation 13.09 (12.00-45.00); African American GFR (CKD) 30.5 (60.0-200.0); Albumin 3.3 g/dL (3.80-4.90); Albumin/Globulin Ratio 1.83 (1.60-3.17); Anion Gap 6.8 mmol/L (4.00-12.00); BUN/Creat Ratio 17.78 Ratio (12.00-20.00); Calcium 8.4 mg/dL (8.7-10.3); Carbon Dioxide 23.2 mmol/L (21.6-31.8); Globulin 1.8 g/dL (1.6-3.3); Magnesium 2.1 mg/dL (1.5-2.4); Non-African American GFR(CKD) 26.3 (60.0-200.0); Phosphorus 4.5 mg/dL (2.4-5.1); Potassium 4.8 mmol/L (3.5-5.5); Total Bilirubin 0.3 mg/dL (0.3-1.2); Total Protein 5.1 g/dL (6.2-8.2); Uric Acid 6.7 mg/dL (2.9-7.7)
[2019-10-13 02:00] LABS: Ferritin 49.1 ng/mL (10.0-291.0)
[2019-10-13 07:11] LABS: DNA Double-Stranded NEGATIVE (NEGATIVE)
[2019-10-13 07:13] LABS: Free Kappa Lt Chain Qnt, Serum 6.46 mg/dL (0.33-1.94)
[2019-10-13 13:54] LABS: C-ANCA <1:20 Titer (<1:20)
== END | disposition home or self-care (01) ==
LOC: LABWHC1 16:23
PROVIDERS: ATTEND Internal Medicine
DX: N39.0 Urinary tract infection, site not specified (principal); N25.81 Secondary hyperparathyroidism of renal origin; E55.9 Vitamin D deficiency, unspecified; M10.9 Gout, unspecified; D63.1 Anemia in chronic kidney disease; N18.3 Chronic kidney disease, stage 3 (moderate)
CPT/HCPCS: 36415; 80053; 81001; 82043; 82306; 82570; 82728; 83516; 83540; 83550; 83735; 83883; 83970; 84100; 84166; 84550; 85027; 86038; 86160; 86162; 86225; 86255; 86334

== ENCOUNTER 2019-11-09 22:23 | Inpatient (IN) | payer MEDICARE, BC ==
--- NOTE | 2019-11-09 22:27 | ED ---
General Adult HPI - General Stated complaint: Hypertension Time Seen by Provider: 11/09/19 22:26 - History of Present Illness Initial comments: Elza is a 79-year-old female with extensive past medical history most significant for coronary artery disease status post CABG in the past, pacemaker placement, hypertension, oxygen-dependent COPD. Patient presents to the emergency department today via EMS reporting that she is just not been feeling well today. 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 Patient reports that upon returning home she continued to feel that she is lacking in energy she may have any specific chest pain palpitations she did feel short of breath and does admit she has not been compliant with her oxygen as prescribed. She decided to put her on her oxygen but didn't feel any better which time she contacted EMS to bring her to the hospital. EMS noted the patient was profoundly hypertensive with blood pressure greater than 200 systolic in route to the hospital. Patient denies any recent fevers chills, nausea, vomiting. She reports aside from not wearing her oxygen she has been compliant with her home medications. - Related Data Home Medications Medication Instructions Recorded Confirmed Loratadine [Claritin] 10 mg PO DAILY 03/18/15 11/29/17 Insulin Detemir (Levemir) [Levemir] 16 unit SQ HS 04/01/16 11/29/17 Insulin Lispro [humaLOG Kwikpen] See Protocol SQ AC-TID PRN 04/01/16 11/29/17 [place]-3 Fatty Acids/Fish Oil [Fish 1 cap PO DAILY 04/01/16 11/29/17 Oil 1,000 mg Softgel] amLODIPine [Norvasc] 10 mg PO DAILY 04/01/16 11/29/17 Temazepam 30 mg PO HS 04/09/16 11/29/17 Cholecalciferol [Vitamin D3] 1,000 unit PO DAILY 07/30/17 11/29/17 Montelukast Sodium [Singulair] 10 mg PO HS 07/30/17 11/29/17 Albuterol Nebulized [Ventolin 2.5 mg INHALATION RT-Q4H PRN 11/29/17 11/29/17 Nebulized] Biotin 5 mg PO DAILY 11/29/17 11/29/17 Losartan Potassium [Cozaar] 50 mg PO DAILY 11/29/17 11/29/17 Promethazine HCl/Codeine 5 ml PO Q6H PRN 11/29/17 11/29/17 [Prometh-Codein 6.25-10 mg/5 ml] Simvastatin [Zocor] 5 mg PO HS 11/29/17 11/29/17 predniSONE See Taper PO DIRECTED 11/29/17 11/29/17 Allergies Allergy/AdvReac Type Severity Reaction Status Date / Time sulfamethoxazole AdvReac Unknown Verified 11/29/17 16:35 [From Bactrim] trimethoprim [From Bactrim] AdvReac Unknown Verified 11/29/17 16:35 Review of Systems ROS Statement: Those systems with pertinent positive or pertinent negative responses have been documented in the HPI. ROS Other: All systems not noted in ROS Statement are negative. Past Medical History Past Medical History: Diabetes Mellitus, Hypertension, Musculoskeletal Disorder, Sleep Apnea/CPAP/BIPAP, Thyroid Disorder Additional Past Medical History / Comment(s): HX OF THYROID NODULES, HX OF RUPTURED DISCS, SLEEP APNEA WITH BI-PAP MACHINE, [employer] PACEMAKER. History of Any Multi-Drug Resistant Organisms: ESBL Date of last positivie culture/infection: 10/18/19 MDRO Source:: ESBL URINE Past Surgical History: Appendectomy, Back Surgery, Bariatric Surgery, Coronary Bypass/CABG, Heart Catheterization, Hysterectomy, Pacemaker Additional Past Surgical History / Comment(s): LAP BAND, CATARACT LEFT EYE, NEUROMA ON FOOT, KNEE ARTHROSCOPY, PACEMAKER ([employer] 04/18/2015) Partial thyroidectomy 2000 Past Anesthesia/Blood Transfusion Reactions: No Reported Reaction Type of Cardiac Device: Permanent Pacemaker Device Placement Date:: 04/18/2015 [employer] Past Psychological History: No Psychological Hx Reported Smoking Status: Current every day smoker Past Alcohol Use History: Occasional Past Drug Use History: None Reported - Past Family History Son(s) Family Medical History: Cancer Additional Family Medical History / Comment(s): MELANOMA Father History Unknown: Yes Family Medical History: Cancer Mother Family Medical History: Coronary Artery Disease (CAD) General Exam - General Exam Comments Initial Comments: Physical Exam GENERAL: Elderly female in no acute distress HENT: Normocephalic, Atraumatic. EYES: PERRL, EOMI PULMONARY: Crackles at bilateral bases No wheezing CARDIOVASCULAR: RRR ABDOMEN: Obese Soft and nontender with normal bowel sounds. SKIN: Skin is clear with no lesions or rashes and otherwise unremarkable. : Deferred NEUROLOGIC: Patient is alert and oriented x3. Moving all extremities spontaneously MUSCULOSKELETAL: Normal extremities with adequate strength and full range of motion 2+ pitting edema bilateral lower extremities PSYCHIATRIC: Normal psychiatric evaluation. Course Vital Signs 11/09/19 11/09/19 11/09/19 22:26 22:55 23:30 Temperature 98.7 F Pulse Rate 78 64 64 Respiratory 19 18 19 Rate Blood Pressure 199/102 207/83 210/87 O2 Sat by Pulse 98 97 98 Oximetry 11/10/19 11/10/19 11/10/19 00:00 00:30 00:44 Temperature Pulse Rate 60 60 60 Respiratory 20 18 18 Rate Blood Pressure 213/89 186/78 178/84 O2 Sat by Pulse 97 97 97 Oximetry EKG Findings - EKG Comments: EKG Findings:: EKG was obtained due to hypertension and patient's history, EKG was obtained at 2228, rate is 78 rhythm is paced, RI prolonged at 208, QRS 1:30, QTC is [address] elevations or depressions no evidence of acute ischemia or infarction. A repeat EKG was obtained due to the elevated troponin, repeat EKG was obtained at 12:47 AM, rate is 60 rhythm is paced again with prolonged AV conduction, RI to 48 QRS 102, QTc [address] elevations but noted to have T-wave inversions which are new from previous EKG, T wave inversions are noted in lead 1, 2, aVR, aVF, V3 through V5 Medical Decision Making - Medical Decision Making The patient was seen and evaluated, history is obtained from the patient 79-year-old female with extensive past medical history presenting with generalized fatigue, shortness of breath and hypertension Initial EKG is nonischemic Patient's blood pressure was treated with clonidine Chest x-ray reveals evidence of congestive heart failure Resulted with multiple significant abnormalities, patient's chronic kidney disease with a creatinine of rate or been to have GFR of 25 Patient has a troponin is elevated at 3.1 Decision was made to place the patient on high-dose heparin as we cannot rule out a pulmonary embolism as the cause of shortness of breath though patient does have heart failure which appears new likely contributing to her shortness of breath. Patient are was discussed with Dr. Sandoval cardiology snuff container inspector, patient's labs and EKG findings were discussed, he agrees with plan of care for IV heparin, trending troponin, treatment of heart failure, he will evaluate the patient in the morning Patient care was discussed with Dr. Arias who agrees with plan and accepts admission - Lab Data Result diagrams: 11/09/19 22:42 11/09/19 22:42 Lab Results 11/09/19 11/09/19 11/09/19 Range/Units 22:42 22:42 22:42 WBC 7.8 (3.8-10.6) k/uL RBC 4.05 (3.80-5.40) m/uL Hgb 11.6 (11.4-16.0) gm/dL Hct 37.2 (34.0-46.0) % MCV 91.7 (80.0-100.0) fL MCH 28.6 (25.0-35.0) pg MCHC 31.2 (31.0-37.0) g/dL RDW 13.8 (11.5-15.5) % Plt Count 209 (150-450) k/uL Neutrophils % (Manual) 67 % Band Neutrophils % 2 % Lymphocytes % (Manual) 28 % Monocytes % (Manual) 2 % Eosinophils % (Manual) 1 % Neutrophils # (Manual) 5.30 (1.3-7.7) k/uL Lymphocytes # (Manual) 2.18 (1.0-4.8) k/uL Monocytes # (Manual) 0.16 (0-1.0) k/uL Eosinophils # (Manual) 0.08 (0-0.7) k/uL Nucleated RBCs 0 (0-0) /100 WBC Manual Slide Review Performed Poikilocytosis (manual Present Rouleaux Present PT 10.3 (9.0-12.0) sec INR 1.0 (<1.2) APTT 22.7 (22.0-30.0) sec Sodium 143 (137-145) mmol/L Potassium 4.0 (3.5-5.1) mmol/L Chloride 115 H (98-107) mmol/L Carbon Dioxide 25 (22-30) mmol/L Anion Gap 3 mmol/L BUN 30 H (7-17) mg/dL Creatinine 2.11 H (0.52-1.04) mg/dL Est GFR (CKD-EPI)AfAm 25 (>60 ml/min/1.73 sqM) Est GFR (CKD-EPI)NonAf 22 (>60 ml/min/1.73 sqM) Glucose 92 (74-99) mg/dL Calcium 8.4 (8.4-10.2) mg/dL Total Bilirubin 0.3 (0.2-1.3) mg/dL AST 32 (14-36) U/L ALT 17 (4-34) U/L Alkaline Phosphatase 84 (38-126) U/L Troponin I (0.000-0.034) ng/mL NT-Pro-B Natriuret Pep pg/mL Total Protein 5.9 L (6.3-8.2) g/dL Albumin 3.0 L (3.5-5.0) g/dL 11/09/19 11/09/19 Range/Units 22:42 22:42 WBC (3.8-10.6) k/uL RBC (3.80-5.40) m/uL Hgb (11.4-16.0) gm/dL Hct (34.0-46.0) % MCV (80.0-100.0) fL MCH (25.0-35.0) pg MCHC (31.0-37.0) g/dL RDW (11.5-15.5) % Plt Count (150-450) k/uL Neutrophils % (Manual) % Band Neutrophils % % Lymphocytes % (Manual) % Monocytes % (Manual) % Eosinophils % (Manual) % Neutrophils # (Manual) (1.3-7.7) k/uL Lymphocytes # (Manual) (1.0-4.8) k/uL Monocytes # (Manual) (0-1.0) k/uL Eosinophils # (Manual) (0-0.7) k/uL Nucleated RBCs (0-0) /100 WBC Manual Slide Review Poikilocytosis (manual Rouleaux PT (9.0-12.0) sec INR (<1.2) APTT (22.0-30.0) sec Sodium (137-145) mmol/L Potassium (3.5-5.1) mmol/L Chloride (98-107) mmol/L Carbon Dioxide (22-30) mmol/L Anion Gap mmol/L BUN (7-17) mg/dL Creatinine (0.52-1.04) mg/dL Est GFR (CKD-EPI)AfAm (>60 ml/min/1.73 sqM) Est GFR (CKD-EPI)NonAf (>60 ml/min/1.73 sqM) Glucose (74-99) mg/dL Calcium (8.4-10.2) mg/dL Total Bilirubin (0.2-1.3) mg/dL AST (14-36) U/L ALT (4-34) U/L Alkaline Phosphatase (38-126) U/L Troponin I 3.100 H* (0.000-0.034) ng/mL NT-Pro-B Natriuret Pep 75931 pg/mL Total Protein (6.3-8.2) g/dL Albumin (3.5-5.0) g/dL Critical Care Time Critical Care Time: Yes Total Critical Care Time: 30 Critical Care Time: Critical care time was exclusive of separately billable procedures and treating other patients and teaching time. Critical care was necessary to treat or prevent imminent or life-threatening deterioration. Given the critical condition in which the patient arrived, the patient was immediately assessed by myself and the nurse, and cardiac monitoring initiated due to the potential for rapid decompensation of the patient's clinical condition. During the course of the patients stay, I spent a considerable amount of time at the bedside performing serial re-evaluations of the patient's hemodynamic and clinical status because of the recognized potential threat to life or limb in this condition. I then had a chance to review not only all of the available current laboratory and radiographic studies obtained today, but I also reviewed old records available to me at the time. 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 Sequential vital signs were obtained. Disposition Clinical Impression: Congestive heart failure, Acute pulmonary edema, Acute exacerbation of chronic obstructive pulmonary disease, Pleural effusion, Troponin level elevated, Hx of CABG, Hypertensive emergency Disposition: ADMITTED IP TO THIS HOSP Condition: Serious Is patient prescribed a controlled substance at d/c from ED?: No
[2019-11-09] MEDS ORDERED: ENALAPRILAT 1.25 MG/ML 1 ML VIAL IVP STA (22:50)
[2019-11-09] MEDS ORDERED: cloNIDine HCL 0.1 MG TAB PO STA (22:51)
[2019-11-09 23:02] LABS: HCT 37.2 % (34.0-46.0); HGB 11.6 gm/dL (11.4-16.0); MCH 28.6 pg (25.0-35.0); MCHC 31.2 g/dL (31.0-37.0); MCV 91.7 fL (80.0-100.0); Mean Platelet Volume 8.3; Platelet Count 209 k/uL (150-450); RBC 4.05 m/uL (3.80-5.40); RDW 13.8 % (11.5-15.5); WBC 7.8 k/uL (3.8-10.6)
[2019-11-09 23:08] LABS: Calcium 8.4 mg/dL (8.4-10.2); Total Bilirubin 0.3 mg/dL (0.2-1.3); Total Protein 5.9 g/dL (6.3-8.2)
[2019-11-09 23:12] LABS: Partial Thromboplastin Time 22.7 sec (22.0-30.0); Prothrombin Time 10.3 sec (9.0-12.0)
[2019-11-09 23:23] LABS: Band Neutrophils % 2 %; Eosinophils # (M) 0.08 k/uL (0-0.7); Lymphocytes # (M) 2.18 k/uL (1.0-4.8); Monocytes # (M) 0.16 k/uL (0-1.0); Neutrophils % (M) 67 %; Nucleated Red Blood Cells 0 /100 WBC (0-0); Poikilocytosis (M) Present; Rouleaux Present; Total Cells Counted 100
--- NOTE | 2019-11-09 23:23 | XR ---
EXAMINATION TYPE: XR chest 2V DATE OF EXAM: 11/09/2019 COMPARISON: 11/29/2017 HISTORY: Short of breath TECHNIQUE: FINDINGS: There is pulmonary interstitial edema. There is blunting of costophrenic angles. Heart appe ars enlarged. There is left axillary pacemaker. There are sternal wires. There are chest leads. IMPRESSION: , Pulmonary Edema and pleural fluid probably related to congestive heart failure that is a change compared to last exam.
[2019-11-10] MEDS ORDERED: NITROGLYCERIN OINT 1 INCH/GM PACKET TOPICAL STA (00:45)
[2019-11-10] MEDS ORDERED: HEPARIN SODIUM,PORCINE 5,000 UNIT/ML 1 ML VIAL IV PRN (00:45)
[2019-11-10] MEDS ORDERED: HEPARIN SODIUM,PORCINE 10,000 UNIT/ML 1 ML VIAL IV ONE (00:45)
[2019-11-10] MEDS: HEPARIN SOD,PORK IN 0.45% NACL 25,000 UNIT in 0.45% NACL 1 250ML.BAG IV SCH ×2 (01:05→17:47)
[2019-11-10 01:06] LABS: Glucose,Whole Blood 73 mg/dL (75-99)
[2019-11-10] MEDS: FUROSEMIDE 10 MG/ML 4 ML VIAL IV SCH ×4 (01:10→17:31)
[2019-11-10] MEDS ORDERED: amLODIPine 5 MG TAB PO STA (02:32)
[2019-11-10] MEDS ORDERED: hydrALAZINE HCL 20 MG/ML 1 ML VIAL IVP PRN ×2 (02:32→11:00)
[2019-11-10 05:50] LABS: Glucose,Whole Blood 98 mg/dL (75-99)
[2019-11-10] MEDS: ALBUTEROL NEBULIZED 2.5 MG/3 ML INHALATION PRN ×2 (05:52→11:39)
[2019-11-10] MEDS: INSULIN ASPART (NovoLOG) 100 UNIT/ML VIAL SQ SCH ×4 (06:07→20:55)
--- NOTE | 2019-11-10 08:42 | CONS ---
CONSULTATION Ms. Avery is a 79-year-old female with a history of coronary artery disease, status post coronary artery bypass grafting in 2000, history of permanent pacemaker implantation, who presented with symptoms of dyspnea. The patient has underwent [address] way bypass in 2000. According to her, she had no prior history of myocardial infarction or documented history of congestive heart failure. 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 Yesterday felt suddenly dyspneic with no chest discomfort. She has chronic peripheral edema and according to her, there are no significant changes. She denies any dizziness or palpitation. No syncope. No PND, nor orthopnea. She had no recent cardiac workup. Her coronary risk factors remarkable for history of hypertension, diabetes and hyperlipidemia. She is a nonsmoker. MEDICATION: At home include insulin, losartan 50 mg daily, simvastatin 5 mg daily, temazepam and Ventolin on a p.r.n. basis. PAST MEDICAL HISTORY: Remarkable for history of coronary artery disease, status post coronary artery bypass grafting, history of permanent pacemaker implantation, history of chronic kidney disease, followed by Dr. Roland. REVIEW OF SYSTEMS: RESPIRATORY SYSTEM: She has no documented history of asthma, emphysema or bronchitis. No recent cough. GI SYSTEM: No recent GI bleeding. No peptic ulcer disease. SYSTEM: No dysuria or hematuria. NERVOUS SYSTEM: No stroke or seizure. MUSCULOSKELETAL: She has history of arthritis and has underwent a total hip arthroplasty in January of last year. PHYSICAL EXAMINATION: She is a 79-year-old female, alert, oriented, in no apparent distress. Blood pressure 177/70 with a heart rate in the 70s. HEAD: Normocephalic. EYES: Sclerae nonicteric. NECK: No bruit. LUNGS: With crackles and rales at post bases. HEART: Regular rate and rhythm, S1, S2. No S3 with systolic ejection murmur heard at the base. No diastolic murmur. ABDOMEN: Soft, nontender. Positive bowel sounds, no organomegaly. EXTREMITIES: +1 to 2 edema bilaterally with intact distal pulses. LAB DATA: Revealed BUN and creatinine 30 and 2.1, potassium 4.0, troponin 3.1 and 3.6. NT proBNP 21,300. Hemoglobin of 11.6. Chest x-ray is consistent was congestive heart failure. EKG revealed a sinus mechanism with normal axis and intervals and T-wave inversion in the anterolateral wall. Subsequently, the EKG revealed a paced rhythm. IMPRESSION: 1. Non ST-segment elevation myocardial infarction in a patient with known history of coronary artery disease, status post coronary artery bypass grafting 19 years ago, the details of her surgical intervention is not available to me. The patient had T- wave inversion in the anterolateral leads, consistent with ischemia. 2. Symptoms of congestive heart failure. Her echocardiogram in 2014 revealed an ejection fraction of 50% to 55%. 3. History of chronic kidney disease. 4. History of hypertension. 5. Hyperlipidemia. 6. Permanent pacemaker implantation. 7. History of diabetes. RECOMMENDATION: I will optimize her medical therapy at this time. I will add hydralazine to her regimen to optimize her blood pressure control. I will obtain echocardiogram with Doppler. If further evaluate her renal function, will obtain a consultation from the Renal service. I will try to obtain the report of her prior surgical intervention. The patient most likely will require coronary angiography but since she is feeling better, I will wait at this time to optimize her treatment and if she is stable, that may be something we will address in the next 24 to 48 hours. I have discussed with the patient those findings and she has in under full understanding and agreement. Thank you for this consult. Will follow with you. MMODL / IJN: [id number] /
[2019-11-10] MEDS ORDERED: hydrALAZINE HCL 50 MG TAB PO SCH (09:00)
[2019-11-10] MEDS ORDERED: amLODIPine 5 MG TAB PO SCH (09:00)
[2019-11-10] MEDS: LOSARTAN 50 MG TAB PO SCH (09:13)
[2019-11-10] MEDS: CLOPIDOGREL 75 MG TAB PO SCH (09:13)
[2019-11-10] MEDS: METOPROLOL TARTRATE 25 MG TAB PO SCH ×2 (09:14→19:59)
[2019-11-10] MEDS: NITROGLYCERIN OINT 1 INCH/GM PACKET TOPICAL SCH ×4 (09:14→23:21)
[2019-11-10 10:17] LABS: HCT 35.9 % (34.0-46.0); Hypochromasia Slight; MCH 29.1 pg (25.0-35.0); MCHC 30.7 g/dL (31.0-37.0); MCV 94.8 fL (80.0-100.0); Mean Platelet Volume 10.8; Platelet Count 176 k/uL (150-450); RBC 3.78 m/uL (3.80-5.40); RDW 13.9 % (11.5-15.5); WBC 6.5 k/uL (3.8-10.6)
[2019-11-10 10:33] LABS: Albumin 2.5 g/dL (3.5-5.0); Calcium 8.1 mg/dL (8.4-10.2); Potassium 4.1 mmol/L (3.5-5.1); Total Bilirubin 0.4 mg/dL (0.2-1.3); Total Protein 5.2 g/dL (6.3-8.2)
--- NOTE | 2019-11-10 10:59 | P.HPIM ---
History of Present Illness H&P Date: 11/10/19 This is a 79-year-old female patient of Dr. Ward. Patient reports that over the past few days she has felt increasingly short of breath with activity and not feeling well. Patient denies any specific chest pain. Patient does have past medical history of coronary artery disease with coronary artery bypass grafting in 2000 and permanent pacemaker implantation 2014. Patient reports she follows with bumper machine operator out of [place] additional medical history includes COPD she is oxygen dependent at home, sleep apnea, diabetes mellitus and chronic kidney disease. Upon arrival the ER patient's troponin elevated at 3.100 followed by troponin 3.680 patient started on heparin drip. Patient's creatinine also elevated at 2.11 and bun 30 this does appear higher than baseline. Patient's BNP elevated at 21,300. Patient does have +2 lower extremity edema which she does report his chronic for her. Patient states she does follow regularly with medical surgical tech. At this time cardiology, nephrology and pulmonary services will be consulted. Patient remains on heparin drip. IV Lasix has been ordered 40 every 8. Patient's blood pressure upon arrival 200. This has improved medications adjusted per cardiology. At this time patient is resting comfortably in bed. Possible plans for cardiac cath tomorrow. Patient denies any chest pain. Patient denies any shortness of breath. Patient denies nausea vomiting or diarrhea. Patient denies any urinary burning or frequency Review of Systems Please refer to HPI otherwise unremarkable Past Medical History Past Medical History: Diabetes Mellitus, Hypertension, Musculoskeletal Disorder, Sleep Apnea/CPAP/BIPAP, Thyroid Disorder Additional Past Medical History / Comment(s): HX OF THYROID NODULES, HX OF RUPTURED DISCS, SLEEP APNEA WITH BI-PAP MACHINE, [employer] PACEMAKER. History of Any Multi-Drug Resistant Organisms: ESBL Date of last positivie culture/infection: 10/18/19 MDRO Source:: ESBL URINE Past Surgical History: Appendectomy, Back Surgery, Bariatric Surgery, Coronary Bypass/CABG, Heart Catheterization, Hysterectomy, Pacemaker Additional Past Surgical History / Comment(s): LAP BAND, CATARACT LEFT EYE, NEUROMA ON FOOT, KNEE ARTHROSCOPY, PACEMAKER ([employer] 04/18/2015) Partial thyroidectomy 1999 Past Anesthesia/Blood Transfusion Reactions: No Reported Reaction Type of Cardiac Device: Permanent Pacemaker Device Placement Date:: 04/18/2015 [employer] Past Psychological History: No Psychological Hx Reported Smoking Status: Current every day smoker Past Alcohol Use History: Occasional Past Drug Use History: None Reported - Past Family History Son(s) Family Medical History: Cancer Additional Family Medical History / Comment(s): MELANOMA Father History Unknown: Yes Family Medical History: Cancer Mother Family Medical History: Coronary Artery Disease (CAD) Medications and Allergies Home Medications Medication Instructions Recorded Confirmed Type Insulin Detemir (Levemir) [Levemir] 20 - 25 unit SQ HS 04/01/16 11/10/19 History Insulin Lispro [humaLOG Kwikpen] See Protocol SQ AC-TID PRN 04/01/16 11/10/19 History Temazepam 30 mg PO HS 04/09/16 11/10/19 History Albuterol Nebulized [Ventolin 2.5 mg INHALATION RT-Q4H PRN 11/29/17 11/10/19 History Nebulized] Losartan Potassium [Cozaar] 50 mg PO DAILY 11/29/17 11/10/19 History Simvastatin [Zocor] 5 mg PO HS 11/29/17 11/10/19 History Allergies Allergy/AdvReac Type Severity Reaction Status Date / Time sulfamethoxazole Allergy Unknown Verified 11/10/19 08:09 [From Bactrim] trimethoprim [From Bactrim] Allergy Unknown Verified 11/10/19 08:09 Physical Exam Vitals: Vital Signs Temp Pulse Pulse Resp BP BP Pulse Ox 11/10/19 06:21 177/75 11/10/19 06:00 76 11/10/19 05:52 72 11/10/19 04:00 98.3 F 72 18 187/83 95 11/10/19 01:45 98.9 F 57 L 16 213/86 98 11/10/19 00:44 60 18 178/84 97 11/10/19 00:30 60 18 186/78 97 11/10/19 00:00 60 20 213/89 97 11/09/19 23:30 64 19 210/87 98 11/09/19 22:55 64 18 207/83 97 11/09/19 22:26 98.7 F 78 19 199/102 98 Intake and Output 11/09/19 11/10/19 11/10/19 22:59 06:59 14:59 Intake Total 68 138.677 Balance 68 138.677 Intake: IV 68 Heparin Sod,Pork in 0.45% 68 NaCl 25,000 unit In 0.45 % NaCl 1 250ml.bag @ 18 UNITS/KG/HR 17.554 mls/hr IV .[id number] [facility] Rx#: [id number] Intake, IV Titration 138.677 Amount Heparin Sod,Pork in 0.45% 138.677 NaCl 25,000 unit In 0.45 % NaCl 1 250ml.bag @ 18 UNITS/KG/HR 17.554 mls/hr IV .[id number] [facility] Rx#: [id number] Other: Voiding Method Toilet Weight 97.522 kg 102.1 kg 102.1 kg Head normocephalic Neck supple Lungs diminished bilaterally Heart regular rate and rhythm S1-S2, no rub or gallop Abdomen is soft nontender nondistended positive bowel sounds no hepatosplenomegaly Extremities +2 lower extremity edema Neuro alert and orientated to 3 Results CBC & Chem 7: 11/09/19 22:42 11/10/19 06:12 Labs: Abnormal Lab Results - Last 24 Hours (Table) 11/09/19 11/09/19 11/10/19 Range/Units 22:42 22:42 01:03 APTT (22.0-30.0) sec Chloride 115 H (98-107) mmol/L Carbon Dioxide (22-30) mmol/L BUN 30 H (7-17) mg/dL Creatinine 2.11 H (0.52-1.04) mg/dL POC Glucose (mg/dL) 73 L (75-99) mg/dL Calcium (8.4-10.2) mg/dL Troponin I 3.100 H* (0.000-0.034) ng/mL Total Protein 5.9 L (6.3-8.2) g/dL Albumin 3.0 L (3.5-5.0) g/dL 11/10/19 11/10/19 11/10/19 Range/Units 04:54 06:12 06:12 APTT >200.0 H* (22.0-30.0) sec Chloride 118 H (98-107) mmol/L Carbon Dioxide 17 L (22-30) mmol/L BUN 27 H (7-17) mg/dL Creatinine 2.01 H (0.52-1.04) mg/dL POC Glucose (mg/dL) (75-99) mg/dL Calcium 8.1 L (8.4-10.2) mg/dL Troponin I 3.680 H* (0.000-0.034) ng/mL Total Protein 5.2 L (6.3-8.2) g/dL Albumin 2.5 L (3.5-5.0) g/dL Thrombosis Risk Factor Assmnt - Choose All That Apply Any of the Below Risk Factors Present?: Yes Each Factor Represents 1 point: Heart failure (<1month), Obesity (BMI >25), Swollen legs (current) Other Risk Factors: Yes Each Risk Factor Represents 3 Points: Age 75 years or older Other congenital or acquired thrombophilia - If yes, enter type in comment: No Thrombosis Risk Factor Assessment Total Risk Factor Score: 6 Thrombosis Risk Factor Assessment Level: High Risk Assessment and Plan Assessment: 1. Non-ST elevated myocardial infarction. Troponins elevated at 3.1 and 3.681. Patient currently maintained on heparin drip cardiology services are following. Plans for possible cardiac catheterization tomorrow 11/11/2019 per cardiology services 2. Acute exacerbation of CHF. 2-D echo has been ordered. Patient currently maintained on IV Lasix. BNP elevated at 21,000 3. Hypertensive urgency. Blood pressure upon arrival greater than 200 medications have been adjusted per cardiology will continue to monitor 4. Acute on chronic kidney disease initial creatinine elevated at 2.11 and bun 30 this does appear higher than baseline. Nephrology services have been consulted. Patient does reports she follows regularly with medical surgical tech 5. History of coronary artery disease with coronary artery bypass graft surgery 2000. Patient reports follows with bumper machine operator on [place] 6. History of permanent pacemaker placement 2014 7. Diabetes mellitus type 2. Home long-acting insulin resumed. Sliding scale coverage ordered 8. History of sleep apnea 9. History of COPD oxygen dependent. Troponins services have been consulted DVT prophylaxis heparin drip. GI prophylaxis Pepcid Cardiology, nephrology and pulmonary service is consulted Patient currently maintained on IV Lasix and IV heparin 2-D echo has been ordered Time with Patient: Greater than 30 (Greater than 60% of the total time spent in counseling and coordination of care. I performed an examination of the patient and discussed their management with the Nurse Practitioner. I have reviewed the Nurse Practitioner's notes and agree with the documented findings and plan of care)
--- NOTE | 2019-11-10 11:02 | P.NPCON ---
History of Present Illness - Reason for Consult chronic renal failure - History of Present Illness Reason for consultation: Chronic kidney disease History of present illness: Patient is a 79-year-old female seen in renal consultation for chronic kidney disease. Patient has chronic kidney disease stage III with baseline creatinine in the range of 1.7-2. GFR is near baseline. Patient came to the hospital with complaint of not feeling well overall. Patient states when she came home she felt very tired. Her checked her blood pressure and it was greater than 200 systolic. She denies any vomiting or diarrhea. Oral intake has been fair. She has been voiding. No hematuria or dysuria. No fever or chills. No cough. Denies use of nonsteroidals. Patient does have long-standing history of diabetes mellitus and is insulin-dependent. Her troponins were noted to be elevated and she is currently maintained on heparin drip. Echocardiogram is being done. Chest x-ray was suggestive of fluid overload. She is maintained on IV Lasix. Vital signs are stable. General: The patient appeared well nourished and normally developed. HEENT: Head exam is unremarkable. Neck is without jugular venous distension. LUNGS: Lungs are clear to auscultation and percussion. Breath sounds decreased. HEART: Rate and Rhythm are regular. First and second heart sounds normal. No murmurs, rubs or gallops. ABDOMEN: Abdominal exam reveals normal bowel sounds. Non-tender and non- distended. No evidence of peritonitis. EXTREMITITES: 1+ edema. Right greater than left. Past Medical History Past Medical History: Diabetes Mellitus, Hypertension, Musculoskeletal Disorder, Sleep Apnea/CPAP/BIPAP, Thyroid Disorder Additional Past Medical History / Comment(s): HX OF THYROID NODULES, HX OF RUPTURED DISCS, SLEEP APNEA WITH BI-PAP MACHINE, [employer] PACEMAKER. History of Any Multi-Drug Resistant Organisms: ESBL Date of last positivie culture/infection: 10/18/19 MDRO Source:: ESBL URINE Past Surgical History: Appendectomy, Back Surgery, Bariatric Surgery, Coronary Bypass/CABG, Heart Catheterization, Hysterectomy, Pacemaker Additional Past Surgical History / Comment(s): LAP BAND, CATARACT LEFT EYE, NEUROMA ON FOOT, KNEE ARTHROSCOPY, PACEMAKER ([employer] 04/18/2015) Partial thyroidectomy 1999 Past Anesthesia/Blood Transfusion Reactions: No Reported Reaction Type of Cardiac Device: Permanent Pacemaker Device Placement Date:: 04/18/2015 [employer] Past Psychological History: No Psychological Hx Reported Smoking Status: Current every day smoker Past Alcohol Use History: Occasional Past Drug Use History: None Reported - Past Family History Son(s) Family Medical History: Cancer Additional Family Medical History / Comment(s): MELANOMA Father History Unknown: Yes Family Medical History: Cancer Mother Family Medical History: Coronary Artery Disease (CAD) Medications and Allergies Home Medications Medication Instructions Recorded Confirmed Type Insulin Detemir (Levemir) [Levemir] 20 - 25 unit SQ HS 04/01/16 11/10/19 History Insulin Lispro [humaLOG Kwikpen] See Protocol SQ AC-TID PRN 04/01/16 11/10/19 History Temazepam 30 mg PO HS 04/09/16 11/10/19 History Albuterol Nebulized [Ventolin 2.5 mg INHALATION RT-Q4H PRN 11/29/17 11/10/19 History Nebulized] Losartan Potassium [Cozaar] 50 mg PO DAILY 11/29/17 11/10/19 History Simvastatin [Zocor] 5 mg PO HS 11/29/17 11/10/19 History Allergies Allergy/AdvReac Type Severity Reaction Status Date / Time sulfamethoxazole Allergy Unknown Verified 11/10/19 08:09 [From Bactrim] trimethoprim [From Bactrim] Allergy Unknown Verified 11/10/19 08:09 Physical Exam Vitals: Vital Signs Temp Pulse Pulse Resp BP BP Pulse Ox 11/10/19 06:21 177/75 11/10/19 06:00 76 11/10/19 05:52 72 11/10/19 04:00 98.3 F 72 18 187/83 95 11/10/19 01:45 98.9 F 57 L 16 213/86 98 11/10/19 00:44 60 18 178/84 97 11/10/19 00:30 60 18 186/78 97 11/10/19 00:00 60 20 213/89 97 11/09/19 23:30 64 19 210/87 98 11/09/19 22:55 64 18 207/83 97 11/09/19 22:26 98.7 F 78 19 199/102 98 Intake and Output 11/09/19 11/10/19 11/10/19 22:59 06:59 14:59 Intake Total 68 138.677 Balance 68 138.677 Intake: IV 68 Heparin Sod,Pork in 0.45% 68 NaCl 25,000 unit In 0.45 % NaCl 1 250ml.bag @ 18 UNITS/KG/HR 17.554 mls/hr IV .[id number] [facility] Rx#: [id number] Intake, IV Titration 138.677 Amount Heparin Sod,Pork in 0.45% 138.677 NaCl 25,000 unit In 0.45 % NaCl 1 250ml.bag @ 18 UNITS/KG/HR 17.554 mls/hr IV .[id number] [facility] Rx#: [id number] Other: Voiding Method Toilet Weight 97.522 kg 102.1 kg 102.1 kg Results - Lab Results Most recent lab results Calcium 8.1 mg/dL (8.4-10.2) L 11/10/19 06:12 11/10/19 06:12 11/10/19 06:12 Assessment and Plan Plan: Assessment: 1. 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 2. Non-ST elevated myocardial infarction maintained on heparin drip. 3. Pulmonary edema maintained on IV Lasix. 4. Hypertension with chronic kidney disease. 5. Metabolic acidosis secondary to acute kidney injury. 6. Insulin-dependent diabetes mellitus. Plan: Maintain IV Lasix. Follow-up echocardiogram. Increase hydralazine to 50 mg 3 times daily. Add oral sodium bicarbonate. Repeat electrolytes in the morning. Thank you for the consultation. I will continue to follow the patient with you during her hospital stay.
--- NOTE | 2019-11-10 11:08 | ECHOF ---
Referral Reason:cad MEASUREMENTS -------- HEIGHT: 167.6 cm WEIGHT: 102.1 kg BP: RVIDd: 2.6 cm (< 3.3) IVSd: 1.2 cm (0.6 - 1.1) LVIDd: 5.3 cm (3.9 - 5.3) LVPWd: 1.4 cm (0.6 - 1.1) IVSs: 1.7 cm LVIDs: 3.6 cm LVPWs: 1.6 cm LAESV Index (A-L): 36.98 ml/m Ao Diam: 2.6 cm (2.0 - 3.7) AV Cusp: 2.1 cm (1.5 - 2.6) LA Diam: 3.0 cm (2.7 - 3.8) MV EXCURSION: 15.618 mm (> 18.000) MV EF SLOPE: 46 mm/s (70 - 150) EPSS: 0.9 cm MV E Andres: 1.13 m/s MV DecT: 222 ms MV A Andres: 1.36 m/s MV E/A Ratio: 0.83 RAP: 5.00 mmHg RVSP: 23.58 mmHg FINDINGS -------- Pacemaker This was a technically good study. The left ventricular size is normal. There is mild concentric left ventricular hypertrophy. Overa ll left ventricular systolic function is low-normal with, an EF between 50 - 55 %. Left ventricular fillimg pressure cannot be estimated due to paced rhythm. The right ventricle is normal in size. LA is moderately dilated 34-39 ml/m2 The right atrial size is normal. The aortic valve is trileaflet and appears structurally normal. The mitral valve is normal. The mitral valve leaflets are mildly thickened. Moderate mitral regur gitation is present. The tricuspid valve appears structurally normal. Trace tricuspid regurgitation present. Right maryellen tricular systolic pressure is normal at < 35 mmHg. There is no pulmonic regurgitation present. The aortic root size is normal. Normal inferior vena cava with normal inspiratory collapse consistent with estimated right atrial pre ssure of 5 mmHg. There is no pericardial effusion. CONCLUSIONS -------- 1. Pacemaker 2. This was a technically good study. 3. The left ventricular size is normal. 4. There is mild concentric left ventricular hypertrophy. 5. Overall left ventricular systolic function is low-normal with, an EF between 50 - 55 %. 6. Left ventricular fillimg pressure cannot be estimated due to paced rhythm. 7. The right ventricle is normal in size. 8. LA is moderately dilated 34-39 ml/m2 9. The right atrial size is normal. 10. The aortic valve is trileaflet and appears structurally normal. 11. The mitral valve is normal. 12. The mitral valve leaflets are mildly thickened. 13. Moderate mitral regurgitation is present. 14. The tricuspid valve appears structurally normal. 15. Trace tricuspid regurgitation present. 16. Right ventricular systolic pressure is normal at < 35 mmHg. 17. There is no pulmonic regurgitation present. 18. The aortic root size is normal. 19. Normal inferior vena cava with normal inspiratory collapse consistent with estimated right atrial pressure of 5 mmHg. 20. There is no pericardial effusion. SINGE WINDER: Anita Banda RDCS
[2019-11-10 11:09] LABS: Crenated RBC Present; Eosinophils # (M) 0.46 k/uL (0-0.7); Lymphocytes # (M) 2.02 k/uL (1.0-4.8); Monocytes # (M) 0.26 k/uL (0-1.0); Neutrophils # (M) 3.77 k/uL (1.3-7.7); Neutrophils % (M) 58 %; Nucleated Red Blood Cells 0 /100 WBC (0-0); Poikilocytosis (M) Present; Rouleaux Present; Total Cells Counted 100
[2019-11-10 11:32] LABS: Glucose,Whole Blood 267 mg/dL (75-99)
[2019-11-10] MEDS ORDERED: IPRATROPIUM-ALBUTEROL 3 ML NEB INHALATION PRN (11:55)
--- NOTE | 2019-11-10 12:31 | P.CNPUL ---
History of Present Illness Consult date: 11/10/19 Reason for consult: dyspnea, cough Chief complaint: Shortness of breath History of present illness: 79-year-old white female patient of Dr. Ward, with past medical history of coronary artery disease with previous bypass grafting, diabetes mellitus type 2, chronic kidney disease, pacemaker placement, hypertension, oxygen dependent COPD, chronic smoker, patient carries 50 year history of smoking of less than a pack a day. Does have a chronic cough on a regular basis. In the last few months patient was trying to quit smoking, and switched to vaping with nicotine- containing products. 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 Her noted that patient is more short of breath with exertion just walking down the [place]. On 11/09/2019 patient got home from work, she states she did not feel good. She hadn't been all that compliant with her oxygen as prescribed. She applied her oxygen, but she denied any fevers, chills, denied any chest pain. Her took her blood pressure and the systolic blood pressure was well over 200 mmHg. He called EMS the patient was brought in to the emergency department for evaluation. Chest x-ray was taken showing pulmonary edema and pleural fluid related to acute exacerbation of congestive heart failure. EKG showed atrial paced rhythm, with ST and T-wave abnormality in the inferior and anterolateral leads. Lab work showed no evidence of leukocytosis, white blood cell count was 7.8, hemoglobin was 11.6, serum sodium was 143, potassium is 4.0, BUN was 30, creatinine is 2.11, showing worsening renal function, troponin was elevated at 3.1, 3.68, and 2.62, proBNP was 21,300. Blood pressure was 213/86. Patient was treated with Vasotec, clonidine, and nitroglycerin patches, started on IV Lasix and IV heparin. Was seen by cardiology and diagnosed with non-ST segment elevated myocardial infarction and acute exacerbation of CHF with diastolic dysfunction. Were consulted for acute exacerbation of chronic obstructive pulmonary disease Review of Systems All systems: negative Constitutional: Denies chills, Denies fever Eyes: denies blurred vision, denies pain Ears, nose, mouth and throat: Denies headache, Denies sore throat Cardiovascular: Reports decreased exercise tolerance, Reports edema, Reports high blood pressure, Reports leg edema, Reports shortness of breath, Denies chest pain Respiratory: Reports cough, Reports dyspnea, Reports home oxygen, Reports wheezing Gastrointestinal: Denies abdominal pain, Denies diarrhea, Denies nausea, Denies vomiting Genitourinary: Denies dysuria, Denies hematuria Musculoskeletal: Denies myalgias Integumentary: Denies pruritus, Denies rash Neurological: Denies numbness, Denies weakness Psychiatric: Denies anxiety, Denies depression Endocrine: Denies fatigue, Denies weight change Hematologic/Lymphatic: Reports lymphedema Past Medical History Past Medical History: Diabetes Mellitus, Hypertension, Musculoskeletal Disorder, Sleep Apnea/CPAP/BIPAP, Thyroid Disorder Additional Past Medical History / Comment(s): HX OF THYROID NODULES, HX OF RUPTURED DISCS, SLEEP APNEA WITH BI-PAP MACHINE, [employer] PACEMAKER. History of Any Multi-Drug Resistant Organisms: ESBL Date of last positivie culture/infection: 10/18/19 MDRO Source:: ESBL URINE Past Surgical History: Appendectomy, Back Surgery, Bariatric Surgery, Coronary Bypass/CABG, Heart Catheterization, Hysterectomy, Pacemaker Additional Past Surgical History / Comment(s): LAP BAND, CATARACT LEFT EYE, NEUROMA ON FOOT, KNEE ARTHROSCOPY, PACEMAKER ([employer] 04/18/2015) Partial thyroidectomy 1999 Past Anesthesia/Blood Transfusion Reactions: No Reported Reaction Type of Cardiac Device: Permanent Pacemaker Device Placement Date:: 04/18/2015 [employer] Past Psychological History: No Psychological Hx Reported Smoking Status: Current every day smoker Past Alcohol Use History: Occasional Past Drug Use History: None Reported - Past Family History Son(s) Family Medical History: Cancer Additional Family Medical History / Comment(s): MELANOMA Father History Unknown: Yes Family Medical History: Cancer Mother Family Medical History: Coronary Artery Disease (CAD) Medications and Allergies Home Medications Medication Instructions Recorded Confirmed Type Insulin Detemir (Levemir) [Levemir] 20 - 25 unit SQ HS 04/01/16 11/10/19 History Insulin Lispro [humaLOG Kwikpen] See Protocol SQ AC-TID PRN 04/01/16 11/10/19 History Temazepam 30 mg PO HS 04/09/16 11/10/19 History Albuterol Nebulized [Ventolin 2.5 mg INHALATION RT-Q4H PRN 11/29/17 11/10/19 History Nebulized] Losartan Potassium [Cozaar] 50 mg PO DAILY 11/29/17 11/10/19 History Simvastatin [Zocor] 5 mg PO HS 11/29/17 11/10/19 History Allergies Allergy/AdvReac Type Severity Reaction Status Date / Time sulfamethoxazole Allergy Unknown Verified 11/10/19 08:09 [From Bactrim] trimethoprim [From Bactrim] Allergy Unknown Verified 11/10/19 08:09 Physical Exam Vitals: Vital Signs Temp Pulse Pulse Resp BP BP Pulse Ox 11/10/19 11:49 70 11/10/19 11:41 64 11/10/19 08:00 97.8 F 62 16 166/74 95 11/10/19 06:21 177/75 11/10/19 06:00 76 11/10/19 05:52 72 11/10/19 04:00 98.3 F 72 18 187/83 95 11/10/19 01:45 98.9 F 57 L 16 213/86 98 11/10/19 00:44 60 18 178/84 97 11/10/19 00:30 60 18 186/78 97 11/10/19 00:00 60 20 213/89 97 11/09/19 23:30 64 19 210/87 98 11/09/19 22:55 64 18 207/83 97 11/09/19 22:26 98.7 F 78 19 199/102 98 Intake and Output 11/09/19 11/10/19 11/10/19 22:59 06:59 14:59 Intake Total 68 138.677 Balance 68 138.677 Intake: IV 68 Heparin Sod,Pork in 0.45% 68 NaCl 25,000 unit In 0.45 % NaCl 1 250ml.bag @ 18 UNITS/KG/HR 17.554 mls/hr IV .[id number] [facility] Rx#: [id number] Intake, IV Titration 138.677 Amount Heparin Sod,Pork in 0.45% 138.677 NaCl 25,000 unit In 0.45 % NaCl 1 250ml.bag @ 18 UNITS/KG/HR 17.554 mls/hr IV .[id number] [facility] Rx#: [id number] Other: Voiding Method Toilet Toilet Weight 97.522 kg 102.1 kg 102.1 kg GENERAL EXAM: Alert, very pleasant, 79-year-old white female, on 2 L of oxygen with a pulse ox of 95%, comfortable in no apparent distress. HEAD: Normocephalic/atraumatic. EYES: Normal reaction of pupils, equal size. Conjunctiva pink, sclera white. NOSE: Clear with pink turbinates. THROAT: No erythema or exudates. NECK: No masses, no JVD, no thyroid enlargement, no adenopathy. CHEST: No chest wall deformity. Symmetrical expansion. LUNGS: Equal air entry with diffuse wheezes, and crackles at the bases CVS: Regular rate and rhythm, normal S1 and S2, no gallops, no murmurs, no rubs ABDOMEN: Soft, nontender. No hepatosplenomegaly, normal bowel sounds, no guarding or rigidity. EXTREMITIES: No clubbing, 1+ edema, patient does have history of chronic lymphedema involving lower extremities no cyanosis, 2+ pulses and upper and lower extremities. MUSCULOSKELETAL: Muscle strength and tone normal. SPINE: No scoliosis or deformity SKIN: No rashes CENTRAL NERVOUS SYSTEM: Alert and oriented -3. No focal deficits, tone is normal in all 4 extremities. PSYCHIATRIC: Alert and oriented -3. Appropriate affect. Intact judgment and insight. Results - Laboratory Findings CBC and BMP: 11/10/19 06:12 11/10/19 06:12 PT/INR, D-dimer PT 10.3 sec (9.0-12.0) 11/09/19 22:42 INR 1.0 (<1.2) 11/09/19 22:42 Abnormal lab findings: Abnormal Labs 11/09/19 11/09/19 11/10/19 22:42 22:42 01:03 RBC Hgb MCHC APTT Chloride 115 H Carbon Dioxide BUN 30 H Creatinine 2.11 H POC Glucose (mg/dL) 73 L Calcium Troponin I 3.100 H* Total Protein 5.9 L Albumin 3.0 L 11/10/19 11/10/19 11/10/19 04:54 06:12 06:12 RBC 3.78 L Hgb 11.0 L MCHC 30.7 L APTT >200.0 H* Chloride Carbon Dioxide BUN Creatinine POC Glucose (mg/dL) Calcium Troponin I 3.680 H* Total Protein Albumin 11/10/19 11/10/19 06:12 11:30 RBC Hgb MCHC APTT Chloride 118 H Carbon Dioxide 17 L BUN 27 H Creatinine 2.01 H POC Glucose (mg/dL) 267 H Calcium 8.1 L Troponin I Total Protein 5.2 L Albumin 2.5 L - Diagnostic Findings Chest x-ray: report reviewed, image reviewed Additional studies: EKG reviewed Assessment and Plan Plan: Assessment: #1. Acute exacerbation of COPD #2. Acute non-ST elevated myocardial infarction #3. Hypertensive emergency, with pulmonary edema, and acute on chronic kidney failure #4. Acute exacerbation of diastolic CHF #5. Acute kidney injury #6. History of coronary artery disease status post bypass grafting 19 years ago #7. History of CHF with diastolic dysfunction, echocardiogram showed low normal EF of 50-55% moderate mitral regurgitation, trace tricuspid regurg, PA systolic of less than 35 mmHg, normal inferior vena cava with normal inspiratory collapse an estimated right atrial pressure of 5 mmHg #8. Diabetes mellitus #9. Chronic smoker, carries 50 years of smoking of less than a pack a day, and more recently started vaping in an attempt to quit smoking #10. Oxygen dependent COPD, not consistently compliant with oxygen #11. Hypertension #12. Hyperlipidemia #13. Permanent pacemaker insertion in 2015 #14. Chronic kidney disease, stage III #15. Obstructive sleep apnea on BiPAP machine #16. Obesity, with history of lap band Plan: Continue diuretics, continue breathing treatments, we will add Symbicort, continue DuoNeb. Repeat chest x-ray in the morning, daily weights, daily labs, cardiology and nephrology are following. Blood pressure is better controlled, no complaints of chest pain, no significant cough or phlegm production, no fever or chills. We'll continue to follow. I performed a history & physical examination of the patient and discussed their management with my nurse practitioner, Marylu Lovelace. I reviewed the nurse practitioner's note and agree with the documented findings and plan of care. Lung sounds are positive for diminished breath sounds with expiratory wheezes. The findings and the impression was discussed with the patient. I attest to the documentation by the nurse practitioner. Time with Patient: Greater than 30
[2019-11-10] MEDS: SODIUM BICARBONATE TAB 650 MG TAB PO SCH ×2 (12:57→19:59)
[2019-11-10] MEDS: IPRATROPIUM-ALBUTEROL 3 ML NEB INHALATION SCH ×2 (15:53→20:39)
[2019-11-10 16:47] LABS: Glucose,Whole Blood 241 mg/dL (75-99)
[2019-11-10] MEDS: hydrALAZINE HCL 50 MG TAB PO SCH ×2 (17:30→23:21)
[2019-11-10 20:24] LABS: Glucose,Whole Blood 354 mg/dL (75-99)
[2019-11-10] MEDS: SYMBICORT 160-4.5 MCG INHALER INHALATION SCH (20:39)
[2019-11-10] MEDS: INSULIN DETEMIR (LEVEMIR) 100 UNIT/ML SYR SQ SCH (20:55)
[2019-11-10] MEDS ORDERED: TEMAZEPAM 30 MG CAP PO SCH (21:00)
[2019-11-10] MEDS ORDERED: ATORVASTATIN 10 MG TAB PO SCH (21:00)
[2019-11-10] MEDS: TEMAZEPAM 15 MG CAP PO SCH (23:28)
[2019-11-11] MEDS ORDERED: ASPIRIN 325 MG TAB PO SCH (00:47)
[2019-11-11] MEDS: FUROSEMIDE 10 MG/ML 4 ML VIAL IV SCH ×2 (03:59→10:16)
[2019-11-11 06:00] LABS: Glucose,Whole Blood 85 mg/dL (75-99)
[2019-11-11] MEDS: INSULIN ASPART (NovoLOG) 100 UNIT/ML VIAL SQ SCH ×4 (06:25→20:12)
[2019-11-11 06:29] LABS: HCT 34.3 % (34.0-46.0); HGB 10.6 gm/dL (11.4-16.0); Hypochromasia Slight; MCH 28.8 pg (25.0-35.0); MCV 92.9 fL (80.0-100.0); Mean Platelet Volume 8.8; Platelet Count 194 k/uL (150-450); RBC 3.69 m/uL (3.80-5.40); RDW 13.9 % (11.5-15.5); WBC 6.9 k/uL (3.8-10.6)
[2019-11-11] MEDS: HEPARIN SOD,PORK IN 0.45% NACL 25,000 UNIT in 0.45% NACL 1 250ML.BAG IV SCH (06:43)
[2019-11-11 07:04] LABS: Calcium 7.8 mg/dL (8.4-10.2)
[2019-11-11 07:13] LABS: Eosinophils # (M) 0.28 k/uL (0-0.7); Lymphocytes # (M) 1.93 k/uL (1.0-4.8); Monocytes # (M) 0.35 k/uL (0-1.0); Neutrophils # (M) 4.35 k/uL (1.3-7.7); Neutrophils % (M) 63 %; Nucleated Red Blood Cells 0 /100 WBC (0-0); Total Cells Counted 100
[2019-11-11] MEDS ORDERED: ASPIRIN 81 MG PO SCH (09:00)
--- NOTE | 2019-11-11 09:07 | XR ---
EXAMINATION TYPE: XR chest 1V portable DATE OF EXAM: 11/11/2019 COMPARISON: 11/09/2019 HISTORY: Shortness of breath TECHNIQUE: Single frontal view of the chest is obtained. FINDINGS: Coarsened interstitium with hyperinflation. Heart is enlarged and is postoperative change. Cardiac device seen. Bilateral infiltrates. Surgical change left shoulder. IMPRESSION: 1. Pleural-parenchymal changes most suggestive of COPD with superimposed mild CHF or interstitial pne umonitis. Findings stable. Underlying pneumonia at the lung bases not excluded
[2019-11-11] MEDS: IPRATROPIUM-ALBUTEROL 3 ML NEB INHALATION SCH ×4 (09:28→21:21)
[2019-11-11] MEDS: SYMBICORT 160-4.5 MCG INHALER INHALATION SCH ×2 (09:28→21:22)
[2019-11-11] MEDS: CLOPIDOGREL 75 MG TAB PO SCH (10:09)
[2019-11-11] MEDS: LOSARTAN 50 MG TAB PO SCH (10:10)
[2019-11-11] MEDS: SODIUM BICARBONATE TAB 650 MG TAB PO SCH ×2 (10:10→20:03)
[2019-11-11] MEDS: hydrALAZINE HCL 50 MG TAB PO SCH ×3 (10:10→23:22)
[2019-11-11] MEDS: FAMOTIDINE 20 MG TAB PO SCH (10:10)
[2019-11-11] MEDS: METOPROLOL TARTRATE 25 MG TAB PO SCH (10:16)
[2019-11-11] MEDS: NITROGLYCERIN OINT 1 INCH/GM PACKET TOPICAL SCH (10:17)
--- NOTE | 2019-11-11 10:17 | PN ---
PROGRESS NOTE Mrs. Avery is 79-year-old female with known history of coronary artery disease status post coronary artery bypass grafting, history of hypertension, hyperlipidemia, diabetes mellitus, who presented with symptoms of CHF as well as evidence of non-STEMI. She has a history of chronic kidney disease. She is feeling well this morning. She is denying any symptoms of chest pain. Her breathing is better. She denies any dizziness or palpitation. She denies any nausea. She has underwent an echocardiogram that showed a preserved ventricular size with an ejection fraction 50% to 55% with moderate mitral regurgitation. She continues to be at this time on aspirin once a day, Plavix 75 mg daily, Lipitor 5 mg daily, amlodipine 5 mg daily, IV heparin, hydralazine 50 mg 3 times a day, Cozaar 50 mg daily, metoprolol tartrate 50 mg twice a day and nitro paste. PHYSICAL EXAMINATION: Blood pressure 142/60 with the heart rate in the 60s. LUNGS: Clear. HEART: Regular rate and rhythm. S1, S2. No S3 with systolic murmur. No diastolic murmur. No rub. ABDOMEN: Soft, nontender. EXTREMITIES: No edema. LAB DATA: Lab data revealed a BUN and creatinine 31 and 2.16, potassium 4.0, hemoglobin of 10.6. She had a chest x-ray performed today that revealed evidence of COPD with mild CHF. IMPRESSION: 1. Symptoms of congestive heart failure, improved. 2. Non ST-segment elevation myocardial infarction in a patient with known history of coronary artery disease. 3. Status post coronary artery bypass grafting. 4. Status post permanent pacemaker implantation. 5. Chronic kidney disease. 6. Hypertension. 7. Hyperlipidemia. 8. Diabetes mellitus. RECOMMENDATION: I had a long discussion with the patient regarding the options including coronary angiography, the rationale behind that and the risk to cause worsening renal function. The patient is reluctant to undergo any intervention at this time. I would like to maximize her medical therapy. I will stop her IV heparin. Continue on the aspirin and Plavix. I will switch her to oral diuretics. Continue to increase her level activity and depending on her progress, further recommendation will be made. MMODL / IJN: [id number] /
--- NOTE | 2019-11-11 10:19 | P.PN ---
Subjective Progress Note Date: 11/11/19 This is a 79-year-old female patient of Dr. Ward. Patient reports that over the past few days she has felt increasingly short of breath with activity and not feeling well. Patient denies any specific chest pain. Patient does have past medical history of coronary artery disease with coronary artery bypass grafting in 2000 and permanent pacemaker implantation 2014. Patient reports she follows with insurance billing clerk out of [place] additional medical history includes COPD she is oxygen dependent at home, sleep apnea, diabetes mellitus and chronic kidney disease. Upon arrival the ER patient's troponin elevated at 3.100 followed by troponin 3.680 patient started on heparin drip. Patient's cr eatinine also elevated at 2.11 and bun 30 this does appear higher than baseline. Patient's BNP elevated at 21,300. Patient does have +2 lower extremity edema which she does report his chronic for her. Patient states she does follow regularly with band tumbler. At this time cardiology, nephrology and pulmonary services will be consulted. Patient remains on heparin drip. IV Lasix has been ordered 40 every 8. Patient's blood pressure upon arrival 200. This has improved medications adjusted per cardiology. At this time patient is resting comfortably in bed. Possible plans for cardiac cath tomorrow. Patient denies any chest pain. Patient denies any shortness of breath. Patient denies nausea vomiting or diarrhea. Patient denies any urinary burning or frequency On 11/11/2019 patient is alert and oriented 3. Cardiology was recommending cardiac cath the patient has refused. Discussed case with Dr. Atkinson per cardiology will medically managed at this time. Blood pressure has improved hydralazine added per nephrology. Patient has been transitioned to oral Lasix 40 mg twice a day we'll continue to monitor kidney function over the next 24-48 hours. Patient denies any chest pain or shortness breath at this time. Patient denies nausea vomiting or diarrhea. Patient denies any urinary burning or frequency Objective - Vital Signs Vital signs: Vital Signs Temp 98.4 F 11/11/19 04:00 Pulse 73 11/11/19 09:44 Resp 16 11/11/19 04:00 BP 142/65 11/11/19 04:00 Pulse Ox 95 11/11/19 04:00 Intake & Output 11/10/19 11/11/19 11/11/19 18:59 06:59 18:59 Intake Total 850.000 183.969 200 Output Total 800 1000 Balance 50.000 -816.031 200 Weight 102.1 kg 103.7 kg Intake: IV 20 Invasive Line 1 20 Intake, IV Titration 250.000 163.969 Amount Heparin Sod,Pork in 0.45% 250.000 163.969 NaCl 25,000 unit In 0.45 % NaCl 1 250ml.bag @ 18 UNITS/KG/HR 17.554 mls/hr IV .[id number] [facility] Rx#: [id number] Oral 600 200 Output: Urine 800 1000 Other: Voiding Method Toilet Toilet # Voids 1 # Bowel Movements 0 - Exam Head normocephalic Neck supple Lungs diminished bilaterally Heart regular rate and rhythm S1-S2, no rub or gallop Abdomen is soft nontender nondistended positive bowel sounds no hepatosplenomegaly Extremities +2 lower extremity edema Neuro alert and orientated to 3 - Labs CBC & Chem 7: 11/11/19 05:54 11/11/19 05:54 Labs: Abnormal Lab Results - Last 24 Hours (Table) 11/10/19 11/10/19 11/10/19 Range/Units 06:12 06:12 11:01 RBC 3.78 L (3.80-5.40) m/uL Hgb 11.0 L (11.4-16.0) gm/dL MCHC 30.7 L (31.0-37.0) g/dL APTT (22.0-30.0) sec Chloride 118 H (98-107) mmol/L Carbon Dioxide 17 L (22-30) mmol/L BUN 27 H (7-17) mg/dL Creatinine 2.01 H (0.52-1.04) mg/dL POC Glucose (mg/dL) (75-99) mg/dL Calcium 8.1 L (8.4-10.2) mg/dL Troponin I 2.620 H* (0.000-0.034) ng/mL Total Protein 5.2 L (6.3-8.2) g/dL Albumin 2.5 L (3.5-5.0) g/dL 11/10/19 11/10/19 11/10/19 Range/Units 11:30 15:22 16:45 RBC (3.80-5.40) m/uL Hgb (11.4-16.0) gm/dL MCHC (31.0-37.0) g/dL APTT 85.1 H (22.0-30.0) sec Chloride (98-107) mmol/L Carbon Dioxide (22-30) mmol/L BUN (7-17) mg/dL Creatinine (0.52-1.04) mg/dL POC Glucose (mg/dL) 267 H 241 H (75-99) mg/dL Calcium (8.4-10.2) mg/dL Troponin I (0.000-0.034) ng/mL Total Protein (6.3-8.2) g/dL Albumin (3.5-5.0) g/dL 11/10/19 11/10/19 11/11/19 Range/Units 20:22 23:09 05:54 RBC 3.69 L (3.80-5.40) m/uL Hgb 10.6 L (11.4-16.0) gm/dL MCHC (31.0-37.0) g/dL APTT 53.7 H (22.0-30.0) sec Chloride (98-107) mmol/L Carbon Dioxide (22-30) mmol/L BUN (7-17) mg/dL Creatinine (0.52-1.04) mg/dL POC Glucose (mg/dL) 354 H (75-99) mg/dL Calcium (8.4-10.2) mg/dL Troponin I (0.000-0.034) ng/mL Total Protein (6.3-8.2) g/dL Albumin (3.5-5.0) g/dL 11/11/19 11/11/19 Range/Units 05:54 05:54 RBC (3.80-5.40) m/uL Hgb (11.4-16.0) gm/dL MCHC (31.0-37.0) g/dL APTT 57.2 H (22.0-30.0) sec Chloride 115 H (98-107) mmol/L Carbon Dioxide 20 L (22-30) mmol/L BUN 31 H (7-17) mg/dL Creatinine 2.16 H (0.52-1.04) mg/dL POC Glucose (mg/dL) (75-99) mg/dL Calcium 7.8 L (8.4-10.2) mg/dL Troponin I (0.000-0.034) ng/mL Total Protein (6.3-8.2) g/dL Albumin (3.5-5.0) g/dL Assessment and Plan Assessment: 1. Non-ST elevated myocardial infarction. Troponins elevated at 3.1 and 3.681. Patient currently maintained on heparin drip cardiology services are following. Cardiology services were recommending cardiac cath but patient declined. At this time per cardiology services will medically manage 2. Acute exacerbation of diastolic CHF. 2-D echo completed showing an EF of 50-55%. Patient currently maintained on IV Lasix. BNP elevated at 21,000. She has been transitioned to oral Lasix per cardiology 3. Hypertensive urgency. Blood pressure upon arrival greater than 200 medications have been adjusted per cardiology will continue to monitor. Hydralazine has been added per nephrology services blood pressure has improved 4. Acute on chronic kidney disease initial creatinine elevated at 2.11 and bun 30 this does appear higher than baseline. Nephrology services have been consulted. Patient does reports she follows regularly with band tumbler 5. History of coronary artery disease with coronary artery bypass graft surgery 2000. Patient reports follows with insurance billing clerk on [place] 6. History of permanent pacemaker placement 2014 7. Diabetes mellitus type 2. Home long-acting insulin resumed. Sliding scale coverage ordered 8. History of sleep apnea 9. History of COPD oxygen dependent. Patient was evaluated by pulmonary services continue breathing treatment Symbicort added and repeat chest x-ray ordered for a.m. 10. Metabolic acidosis secondary to acute kidney injury. Sodium bicarb added per nephrology DVT prophylaxis heparin drip. GI prophylaxis Pepcid Cardiology, nephrology and pulmonary service is consulted I performed an examination of the patient and discussed their management with e Nurse Practitioner. I have reviewed the Nurse Practitioner's notes and agree with the documented findings and plan of care
[2019-11-11 11:48] LABS: Glucose,Whole Blood 166 mg/dL (75-99)
[2019-11-11] MEDS: ISOSORBIDE MONONITRATE ER 60 MG TAB.ER.24H PO SCH (12:23)
--- NOTE | 2019-11-11 14:35 | P.PN ---
Subjective Progress Note Date: 11/11/19 On 11/11/2019 patient seen in follow-up on selective care unit, she is calm and comfortable sitting up in the chair, no worsening dyspnea, no complaints of chest pain, she is on 2 L of oxygen with a pulse ox of 98%, afebrile, blood pressure still elevated at 193/75. Cardiology is on the case and managing the blood pressures. Patient has been diuresed and her IV Lasix has been transitioned to oral Lasix, patient is in -760 mL fluid balance. Chest x-ray today still shows COPD with superimposed mild CHF and interstitial prominence. Clinically patient is improving, on today's exam lung sounds reveal some minimal crackles at the bases, no rhonchi, no wheezing. Have been no fever or chills. Cardiology is following and planning on medical treatment at this time, she was offered heart catheterization however she declined and at this time with a concern for worsening renal function. Objective - Vital Signs Vital signs: Vital Signs Temp 97.5 F L 11/11/19 07:50 Pulse 73 11/11/19 09:44 Resp 16 11/11/19 07:50 BP 193/75 11/11/19 07:50 Pulse Ox 98 11/11/19 07:50 Intake & Output 11/10/19 11/11/19 11/11/19 18:59 06:59 18:59 Intake Total 850.000 183.969 400 Output Total 800 1000 Balance 50.000 -816.031 400 Weight 102.1 kg 103.7 kg Intake: IV 20 Invasive Line 1 20 Intake, IV Titration 250.000 163.969 Amount Heparin Sod,Pork in 0.45% 250.000 163.969 NaCl 25,000 unit In 0.45 % NaCl 1 250ml.bag @ 18 UNITS/KG/HR 17.554 mls/hr IV .[id number] WILMER Rx#: [id number] Oral 600 400 Output: Urine 800 1000 Other: Voiding Method Toilet Toilet Toilet # Voids 1 0 # Bowel Movements 0 - Exam GENERAL EXAM: Alert, very pleasant, 79-year-old white female, on 3 L of oxygen with a pulse ox of 95%, comfortable in no apparent distress. HEAD: Normocephalic/atraumatic. EYES: Normal reaction of pupils, equal size. Conjunctiva pink, sclera white. NOSE: Clear with pink turbinates. THROAT: No erythema or exudates. NECK: No masses, no JVD, no thyroid enlargement, no adenopathy. CHEST: No chest wall deformity. Symmetrical expansion. LUNGS: Equal air entry with and crackles at the bases CVS: Regular rate and rhythm, normal S1 and S2, no gallops, no murmurs, no rubs ABDOMEN: Soft, nontender. No hepatosplenomegaly, normal bowel sounds, no guarding or rigidity. EXTREMITIES: No clubbing, 1+ edema, patient does have history of chronic lymphedema involving lower extremities no cyanosis, 2+ pulses and upper and lower extremities. MUSCULOSKELETAL: Muscle strength and tone normal. SPINE: No scoliosis or deformity SKIN: No rashes CENTRAL NERVOUS SYSTEM: Alert and oriented -3. No focal deficits, tone is normal in all 4 extremities. PSYCHIATRIC: Alert and oriented -3. Appropriate affect. Intact judgment and insight. - Labs CBC & Chem 7: 11/11/19 05:54 11/11/19 05:54 Labs: Abnormal Lab Results - Last 24 Hours (Table) 11/10/19 11/10/19 11/10/19 Range/Units 15:22 16:45 20:22 RBC (3.80-5.40) m/uL Hgb (11.4-16.0) gm/dL APTT 85.1 H (22.0-30.0) sec Chloride (98-107) mmol/L Carbon Dioxide (22-30) mmol/L BUN (7-17) mg/dL Creatinine (0.52-1.04) mg/dL POC Glucose (mg/dL) 241 H 354 H (75-99) mg/dL Calcium (8.4-10.2) mg/dL 11/10/19 11/11/19 11/11/19 Range/Units 23:09 05:54 05:54 RBC 3.69 L (3.80-5.40) m/uL Hgb 10.6 L (11.4-16.0) gm/dL APTT 53.7 H (22.0-30.0) sec Chloride 115 H (98-107) mmol/L Carbon Dioxide 20 L (22-30) mmol/L BUN 31 H (7-17) mg/dL Creatinine 2.16 H (0.52-1.04) mg/dL POC Glucose (mg/dL) (75-99) mg/dL Calcium 7.8 L (8.4-10.2) mg/dL 11/11/19 11/11/19 Range/Units 05:54 11:46 RBC (3.80-5.40) m/uL Hgb (11.4-16.0) gm/dL APTT 57.2 H (22.0-30.0) sec Chloride (98-107) mmol/L Carbon Dioxide (22-30) mmol/L BUN (7-17) mg/dL Creatinine (0.52-1.04) mg/dL POC Glucose (mg/dL) 166 H (75-99) mg/dL Calcium (8.4-10.2) mg/dL Assessment and Plan Plan: Assessment: #1. Acute exacerbation of COPD #2. Acute non-ST elevated myocardial infarction #3. Hypertensive emergency, with pulmonary edema, and acute on chronic kidney failure #4. Acute exacerbation of diastolic CHF #5. Acute kidney injury #6. History of coronary artery disease status post bypass grafting 19 years ago #7. History of CHF with diastolic dysfunction, echocardiogram showed low normal EF of 50-55% moderate mitral regurgitation, trace tricuspid regurg, PA systolic of less than 35 mmHg, normal inferior vena cava with normal inspiratory collapse an estimated right atrial pressure of 5 mmHg #8. Diabetes mellitus #9. Chronic smoker, carries 50 years of smoking of less than a pack a day, and more recently started vaping in an attempt to quit smoking #10. Oxygen dependent COPD, not consistently compliant with oxygen #11. Hypertension #12. Hyperlipidemia #13. Permanent pacemaker insertion in 2015 #14. Chronic kidney disease, stage III #15. Obstructive sleep apnea on BiPAP machine #16. Obesity, with history of lap band Plan: Continue oral diuretics, continue same medical treatment, patient is breathing easier, blood pressure and diuretic management per cardiology. This chest x-ray has been reviewed still showing some interstitial edema, clinically patient is improving, maintaining negative fluid balance. We'll continue same medical treatment, will follow I performed a history & physical examination of the patient and discussed their management with my nurse practitioner, Marylu Lovelace. I reviewed the nurse pra ctitioner's note and agree with the documented findings and plan of care. Lung sounds are positive for diminished breath sounds with expiratory wheezes. The findings and the impression was discussed with the patient. I attest to the documentation by the nurse practitioner. Time with Patient: Less than 30
[2019-11-11 17:02] LABS: Glucose,Whole Blood 238 mg/dL (75-99)
--- NOTE | 2019-11-11 18:40 | PN ---
PROGRESS NOTE The patient is seen for followup for acute kidney injury on top of chronic kidney disease. The patient is currently comfortable. She denies any significant complaints. She is currently being diuresed. Lasix is at 40 mg IV q.8 hours and it has been changed to p.o. today. PHYSICAL EXAMINATION: On examination, patient is comfortable, awake, not in any acute distress. Blood pressure was 193/75 earlier today, heart rate 65 per minute, patient is afebrile. Examination of the heart S1, S2. Examination of the lungs, bilateral breath sounds are heard. Abdomen is soft, obese, nontender. Examination of lower extremities shows edema 1+ bilaterally. CAR SALTER exam grossly intact. LABS: Show sodium 139, potassium 4.0, chloride 115. CO2 is 20, BUN 31, creatinine 2.1. ASSESSMENT: 1. Chronic kidney disease stage 3 secondary to diabetic kidney disease, baseline creatinine about 1.7. 2. Non ST elevation MD. 3. Pulmonary edema/volume overload, improved. Lasix has been changed to p.o. 4. Hypertension, improved. 5. Metabolic acidosis secondary to renal failure, maintained on oral sodium bicarb. 6. Hypertension, partly volume sensitive. Hypertension with CKD, better controlled. PLAN: Continue with the current dose of oral diuretics. Repeat labs in a.m. Continue to avoid nephrotoxic agents. At this time, patient is not keen on cardiac catheterization, which can definitely worsen her renal function as the patient does have acute kidney injury on top of chronic kidney disease. She is maintained on medical therapy. MMODL / IJN: [id number] /
[2019-11-11] MEDS ORDERED: TEMAZEPAM 15 MG CAP PO STA (19:56)
[2019-11-11] MEDS: ATORVASTATIN 40 MG TAB PO SCH (20:03)
[2019-11-11] MEDS: FUROSEMIDE 40 MG TAB PO SCH (20:03)
[2019-11-11] MEDS: HEPARIN SODIUM,PORCINE 5,000 UNIT/ML 1 ML VIAL SQ SCH (20:03)
[2019-11-11 20:08] LABS: Glucose,Whole Blood 299 mg/dL (75-99)
[2019-11-11] MEDS: INSULIN DETEMIR (LEVEMIR) 100 UNIT/ML SYR SQ SCH (20:12)
[2019-11-12] MEDS: INSULIN ASPART (NovoLOG) 100 UNIT/ML VIAL SQ SCH ×4 (06:14→21:03)
[2019-11-12 06:15] LABS: Glucose,Whole Blood 114 mg/dL (75-99)
[2019-11-12 07:21] LABS: Calcium 7.7 mg/dL (8.4-10.2); Potassium 4.2 mmol/L (3.5-5.1)
[2019-11-12 07:31] LABS: HCT 30.2 % (34.0-46.0); HGB 9.5 gm/dL (11.4-16.0); MCH 28.8 pg (25.0-35.0); MCHC 31.3 g/dL (31.0-37.0); MCV 91.9 fL (80.0-100.0); Mean Platelet Volume 8.8; Platelet Count 185 k/uL (150-450); RBC 3.29 m/uL (3.80-5.40); WBC 5.3 k/uL (3.8-10.6)
[2019-11-12] MEDS: SYMBICORT 160-4.5 MCG INHALER INHALATION SCH ×2 (07:57→19:10)
[2019-11-12] MEDS: IPRATROPIUM-ALBUTEROL 3 ML NEB INHALATION SCH ×4 (07:57→19:09)
[2019-11-12 08:05] LABS: Eosinophils # (M) 0.21 k/uL (0-0.7); Lymphocytes # (M) 2.01 k/uL (1.0-4.8); Monocytes # (M) 0.37 k/uL (0-1.0); Neutrophils % (M) 51 %; Nucleated Red Blood Cells 0 /100 WBC (0-0); Total Cells Counted 100
[2019-11-12 08:06] LABS: Poikilocytosis (M) Present
[2019-11-12] MEDS: LOSARTAN 50 MG TAB PO SCH (09:13)
[2019-11-12] MEDS: FUROSEMIDE 40 MG TAB PO SCH ×2 (09:13→21:02)
[2019-11-12] MEDS: HEPARIN SODIUM,PORCINE 5,000 UNIT/ML 1 ML VIAL SQ SCH ×2 (09:13→21:03)
[2019-11-12] MEDS: SODIUM BICARBONATE TAB 650 MG TAB PO SCH ×2 (09:13→21:02)
[2019-11-12] MEDS: CLOPIDOGREL 75 MG TAB PO SCH (09:13)
[2019-11-12] MEDS: FAMOTIDINE 20 MG TAB PO SCH (09:13)
[2019-11-12] MEDS: hydrALAZINE HCL 50 MG TAB PO SCH (09:13)
[2019-11-12] MEDS: ISOSORBIDE MONONITRATE ER 60 MG TAB.ER.24H PO SCH (09:13)
--- NOTE | 2019-11-12 10:20 | P.PN ---
Subjective Progress Note Date: 11/12/19 This is a 79-year-old female patient of Dr. Ward. Patient reports that over the past few days she has felt increasingly short of breath with activity and not feeling well. Patient denies any specific chest pain. Patient does have past medical history of coronary artery disease with coronary artery bypass grafting in 2000 and permanent pacemaker implantation 2014. Patient reports she follows with stunt person out of [place] additional medical history includes COPD she is oxygen dependent at home, sleep apnea, diabetes mellitus and chronic kidney disease. Upon arrival the ER patient's troponin elevated at 3.100 followed by troponin 3.680 patient started on heparin drip. Patient's cr eatinine also elevated at 2.11 and bun 30 this does appear higher than baseline. Patient's BNP elevated at 21,300. Patient does have +2 lower extremity edema which she does report his chronic for her. Patient states she does follow regularly with broadcast maintenance technician. At this time cardiology, nephrology and pulmonary services will be consulted. Patient remains on heparin drip. IV Lasix has been ordered 40 every 8. Patient's blood pressure upon arrival 200. This has improved medications adjusted per cardiology. At this time patient is resting comfortably in bed. Possible plans for cardiac cath tomorrow. Patient denies any chest pain. Patient denies any shortness of breath. Patient denies nausea vomiting or diarrhea. Patient denies any urinary burning or frequency On 11/11/2019 patient is alert and oriented 3. Cardiology was recommending cardiac cath the patient has refused. Discussed case with Dr. Grande per cardiology will medically managed at this time. Blood pressure has improved hydralazine added per nephrology. Patient has been transitioned to oral Lasix 40 mg twice a day we'll continue to monitor kidney function over the next 24-48 hours. Patient denies any chest pain or shortness breath at this time. Patient denies nausea vomiting or diarrhea. Patient denies any urinary burning or frequency On 11/12/2019 patient's alert and oriented 3. Patient will continue to be medically managed for non-STEMI per cardiology. Creatinine increasing to 2.21 and bun 36. Nephrology are following. Patient has been transitioned to oral Lasix. Patient is having some increased wheezing pulmonary pump services are following. Patient remains on DuoNeb breathing treatments. Patient denies chest pain. Patient denies nausea vomiting or diarrhea. Patient denies any u rinary burning or frequency Objective - Vital Signs Vital signs: Vital Signs Temp 97.9 F 11/12/19 04:00 Pulse 72 11/12/19 08:09 Resp 16 11/12/19 04:00 BP 132/52 11/12/19 04:00 Pulse Ox 98 11/12/19 04:00 Intake & Output 11/11/19 11/12/19 11/12/19 18:59 06:59 18:59 Intake Total 640 120 Output Total 250 Balance 640 -250 120 Weight 104.7 kg Intake: Oral 640 120 Output: Urine 250 Other: Voiding Method Toilet Toilet # Voids 2 # Bowel Movements 0 - Exam Head normocephalic Neck supple Lungs diminished bilaterally Heart regular rate and rhythm S1-S2, no rub or gallop Abdomen is soft nontender nondistended positive bowel sounds no hepatosplenomegaly Extremities +2 lower extremity edema Neuro alert and orientated to 3 - Labs CBC & Chem 7: 11/12/19 06:03 11/12/19 06:03 Labs: Abnormal Lab Results - Last 24 Hours (Table) 11/11/19 11/11/19 11/11/19 Range/Units 11:46 17:00 20:07 RBC (3.80-5.40) m/uL Hgb (11.4-16.0) gm/dL Hct (34.0-46.0) % Chloride (98-107) mmol/L Carbon Dioxide (22-30) mmol/L BUN (7-17) mg/dL Creatinine (0.52-1.04) mg/dL Glucose (74-99) mg/dL POC Glucose (mg/dL) 166 H 238 H 299 H (75-99) mg/dL Calcium (8.4-10.2) mg/dL 11/12/19 11/12/19 11/12/19 Range/Units 06:03 06:03 06:13 RBC 3.29 L (3.80-5.40) m/uL Hgb 9.5 L (11.4-16.0) gm/dL Hct 30.2 L (34.0-46.0) % Chloride 112 H (98-107) mmol/L Carbon Dioxide 20 L (22-30) mmol/L BUN 36 H (7-17) mg/dL Creatinine 2.21 H (0.52-1.04) mg/dL Glucose 104 H (74-99) mg/dL POC Glucose (mg/dL) 114 H (75-99) mg/dL Calcium 7.7 L (8.4-10.2) mg/dL Assessment and Plan Assessment: 1. Non-ST elevated myocardial infarction. Troponins elevated at 3.1 and 3.681. Patient currently maintained on heparin drip cardiology services are following. Cardiology services were recommending cardiac cath but patient declined. At this time per cardiology services will medically manage 2. Acute exacerbation of diastolic CHF. 2-D echo completed showing an EF of 50-55%. Patient currently maintained on IV Lasix. BNP elevated at 21,000. She has been transitioned to oral Lasix per cardiology 3. Hypertensive urgency. Blood pressure upon arrival greater than 200 medications have been adjusted per cardiology will continue to monitor. Hydralazine has been added per nephrology services blood pressure has improved 4. Acute on chronic kidney disease initial creatinine elevated at 2.11 and bun 30 this does appear higher than baseline. Nephrology services have been consulted. Patient does reports she follows regularly with broadcast maintenance technician 5. History of coronary artery disease with coronary artery bypass graft surgery 2000. Patient reports follows with stunt person on [place] 6. History of permanent pacemaker placement 2014 7. Diabetes mellitus type 2. Home long-acting insulin resumed. Sliding scale coverage ordered 8. History of sleep apnea 9. History of COPD oxygen dependent. Patient was evaluated by pulmonary services continue breathing treatment Symbicort added. Chest x-ray completed showing pleuroparenchymal changes most suggestive COPD with superimposed mild CHF or interstitial pneumonitis. Findings stable underlying pneumonia at the lung bases not excluded. Pulmonary services are following 10. Metabolic acidosis secondary to acute kidney injury. Sodium bicarb added per nephrology DVT prophylaxis heparin drip. GI prophylaxis Pepcid Cardiology, nephrology and pulmonary service is consulted I performed an examination of the patient and discussed their management with the Nurse Practitioner. I have reviewed the Nurse Practitioner's notes and agree with the documented findings and plan of care
[2019-11-12] MEDS: guaiFENesin SYRUP 100MG/5ML 200 MG/10 ML CUP PO PRN (11:29)
[2019-11-12 11:33] LABS: Glucose,Whole Blood 137 mg/dL (75-99)
--- NOTE | 2019-11-12 12:33 | PN ---
PROGRESS NOTE Patient is seen for followup for acute kidney injury. Serum creatinine has increased further to about 2.2 today. Patient has been voiding. Her diuretics were changed to p.o. She denies any significant complaints. She is maintained on angiotensin receptor blockers. Blood pressure has not been low in fact it is slightly on the higher side. Chest x-ray from yesterday showed changes suggestive of COPD with some pulmonary vascular congestion. PHYSICAL EXAMINATION: On examination today, blood pressure was 157/65, heart rate 72 per minute. Patient is afebrile. EXAMINATION OF THE HEART: S1, S2. EXAMINATION OF THE LUNGS: Bilateral breath sounds are heard. Decreased breath sounds at bases. Wheezing is heard. Abdomen is soft, nontender, obese. Examination of lower extremities shows edema 1+ bilaterally. LABS: Labs show sodium 138, potassium 4.2, chloride 112, CO2 is 20, BUN 36, creatinine 2.2, hemoglobin 9.5 g/dL. ASSESSMENT: 1. Chronic kidney disease stage 3 secondary to diabetic kidney disease, baseline creatinine about 1.7 mg/dL. 2. Acute kidney injury, most likely cardiorenal. Rule out urine retention. We will check a postvoid urine. The patient is not on any nephrotoxic medications. She is maintained on Cozaar, which I will continue for now as blood pressure remains high. Continue with the same dose on the diuretics. 3. Hdl-FA-zetsrzzfx myocardial infarction. 4. Volume overload, now improved. 5. Metabolic acidosis associated with renal failure, maintained on sodium bicarb. 6. Hypertension partly volume sensitive. Continue current antihypertensive regimen. PLAN: Check postvoid urine. Continue current dose of Lasix. MMODL / IJN: [id number] /
--- NOTE | 2019-11-12 12:33 | PN ---
PROGRESS NOTE Mrs. Avery is a 79-year-old female with a known history of coronary artery disease, status post coronary artery bypass grafting, history of chronic kidney disease, who presented with symptoms of CHF and [id number] myocardial infarction. Her echocardiogram revealed ejection fraction of 50% to 55% with moderate mitral regurgitation. She is feeling better today. Her breathing is better. She denies any chest pain. No dizziness. No palpitation. No nausea. She has declined coronary angiography. She continues to be on Lipitor 40 mg daily, Plavix 75 mg daily, furosemide 40 mg twice a day, losartan 50 mg daily, isosorbide mononitrate 60 mg daily, hydralazine 50 mg 3 times a day chief. PHYSICAL EXAMINATION: Blood pressure 157/60 with a heart rate in the 70s. LUNGS: Clear. HEART: Regular rate and rhythm, S1, S2. No S3 with a systolic murmur no diastolic murmur. ABDOMEN: Soft, nontender. EXTREMITIES: +1 to 2 edema bilaterally. IMPRESSION: 1. Congestion, improved. 2. Non-STEMI. 3. Chronic kidney disease. 4. Hyperlipidemia. 5. Hypertension. RECOMMENDATION: From the cardiac standpoint, I will continue the present therapy. I will adjust the dose of her hydralazine for her blood pressure control I would expect she should be able to be discharged home soon and follow with her primary lathe spotter. DELL / EDWIN: [id number] /
--- NOTE | 2019-11-12 13:38 | CDI ---
Documentation Clarification Form Date: 11/12/2019 12:45:21 PM From: Cathy Roberts RN, CCDS Admit Date: 11/10/2019 12:48:00 AM Patient Name: Elza Avery Visit Number: [id number] Discharge Date: ATTENTION: The Clinical Documentation Specialists (CDI) and [facility] Coding Staff appreciate your assistance in clarifying documentation. Please respond to the clarification below the line at the bottom and electronically sign. The CDI & [facility] Coding staff will review the response and follow-up if needed. Please note: Queries are made part of the Legal Health Record. If you have any questions, please contact the author of this message via ITS. Dr. Lona Arias Conflicting documentation has been found in the medical record: Emergency department assessment 11/08 (Dr. Anderson) "Hypertensive emergency. 11/09 and subsequent progress notes by attending (Dr. Arias) "Hypertensive urgency. Blood pressure upon arrival greater than 200 medications have been adjusted by cardiology". 11/09 and subsequent progress notes by Pulmonary (Dr. Hammer) "Hypertensive emergency, with pulmonary edema, and acute on chronic kidney failure". History/Risk Factors: Diastolic Congestive heart failure, Diabetes mellitus, Coronary artery disease, Chronic kidney disease, stage III, Hypertension Clinical Indicators: 79-year-old female present to [facility] on 11/08 with complaints of not feeling well, short of breath, noncompliant with her oxygen as prescribed. EMS was called and patient was profoundly hypertensive with blood pressure greater than 200 systolic in route to the hospital. She reports she has been compliant with her home medications. 11/08 vital signs 199/102, 78 19, 207/83 64 18, 10 64 19 11/08 EKG AT 12:47 AM, rate is 60 rhythm is paced again with prolonged AV conduction. with T-wave inversions. lead 1,2, aVR, V3 through V5 11/08 Chest x-ray: evidence of congestive heart failure 11/08 Labs: troponin is elevated 3.1 Treatment: Telemetry monitoring Sequential vital signs monitoring Catapres 0.1 mg po once stat (t 22:51) Lasix 40 mg IV Q8HRS 11/10 change to PO Heparin drip (titrate per orders) Monitor troponin Apresoline 10 Mg IVP at 03: 33 on 11/09 Apresoline 50 Mg PO BID, Increased to 75 MG PO TID 11/11 In your opinion, what is the most clinically appropriate diagnosis for this patient? Hypertensive Emergency Hypertensive Urgency Other explanation of clinical findings Unable to determine (no explanation for clinical findings) (Last Revision: December 2017) MTDD
[2019-11-12 16:34] LABS: Glucose,Whole Blood 195 mg/dL (75-99)
[2019-11-12] MEDS: hydrALAZINE HCL 25 MG TAB PO SCH ×2 (17:39→21:03)
[2019-11-12 20:44] LABS: Glucose,Whole Blood 234 mg/dL (75-99)
[2019-11-12] MEDS: INSULIN DETEMIR (LEVEMIR) 100 UNIT/ML SYR SQ SCH (21:03)
[2019-11-12] MEDS: TEMAZEPAM 15 MG CAP PO SCH (21:03)
[2019-11-12] MEDS: ATORVASTATIN 40 MG TAB PO SCH (21:03)
[2019-11-13 06:15] LABS: Glucose,Whole Blood 105 mg/dL (75-99)
[2019-11-13] MEDS: INSULIN ASPART (NovoLOG) 100 UNIT/ML VIAL SQ SCH ×4 (06:19→20:53)
[2019-11-13 06:59] LABS: HCT 29.6 % (34.0-46.0); HGB 9.4 gm/dL (11.4-16.0); MCH 29.4 pg (25.0-35.0); MCHC 31.7 g/dL (31.0-37.0); MCV 92.9 fL (80.0-100.0); Mean Platelet Volume 8.8; Platelet Count 169 k/uL (150-450); RBC 3.18 m/uL (3.80-5.40); RDW 14.2 % (11.5-15.5); WBC 5.6 k/uL (3.8-10.6)
[2019-11-13 07:04] LABS: Albumin 2.4 g/dL (3.5-5.0); Calcium 7.9 mg/dL (8.4-10.2); Potassium 4.8 mmol/L (3.5-5.1); Total Bilirubin 0.3 mg/dL (0.2-1.3); Total Protein 4.8 g/dL (6.3-8.2)
[2019-11-13] MEDS: IPRATROPIUM-ALBUTEROL 3 ML NEB INHALATION SCH ×4 (08:45→19:10)
[2019-11-13] MEDS: SYMBICORT 160-4.5 MCG INHALER INHALATION SCH ×2 (08:46→19:10)
[2019-11-13 08:58] LABS: Eosinophils # (M) 0.28 k/uL (0-0.7); Lymphocytes # (M) 1.51 k/uL (1.0-4.8); Monocytes # (M) 0.28 k/uL (0-1.0); Neutrophils # (M) 3.53 k/uL (1.3-7.7); Neutrophils % (M) 63 %; Nucleated Red Blood Cells 0 /100 WBC (0-0); Total Cells Counted 100
[2019-11-13] MEDS: hydrALAZINE HCL 25 MG TAB PO SCH ×3 (09:19→20:53)
[2019-11-13] MEDS: ASPIRIN 81 MG PO SCH (09:19)
[2019-11-13] MEDS: LOSARTAN 50 MG TAB PO SCH (09:19)
[2019-11-13] MEDS: ISOSORBIDE MONONITRATE ER 60 MG TAB.ER.24H PO SCH (09:19)
[2019-11-13] MEDS: SODIUM BICARBONATE TAB 650 MG TAB PO SCH ×2 (09:19→20:53)
[2019-11-13] MEDS: FAMOTIDINE 20 MG TAB PO SCH (09:19)
[2019-11-13] MEDS: FUROSEMIDE 40 MG TAB PO SCH (09:19)
[2019-11-13] MEDS: HEPARIN SODIUM,PORCINE 5,000 UNIT/ML 1 ML VIAL SQ SCH ×2 (09:19→20:53)
[2019-11-13] MEDS: CLOPIDOGREL 75 MG TAB PO SCH (09:19)
--- NOTE | 2019-11-13 11:20 | P.PN ---
Subjective Progress Note Date: 11/13/19 Follow-up for acute kidney injury. Still has lower edema with lower extremity swelling. Lasix has been changed to by mouth with worsening creatinine yesterday. Objective - Vital Signs Vital signs: Vital Signs Temp 97.5 F L 11/13/19 08:00 Pulse 76 11/13/19 09:06 Resp 18 11/13/19 08:00 BP 172/73 11/13/19 08:00 Pulse Ox 92 L 11/13/19 08:48 Intake & Output 11/12/19 11/13/19 11/13/19 18:59 06:59 18:59 Intake Total 600 360 Output Total 1424 1500 Balance -824 -1500 360 Weight 97.5 kg Intake: Oral 600 360 Output: Urine 1400 1500 Post Void Residual 24 Other: Voiding Method Toilet Toilet Toilet # Voids 3 - Exam No acute distress S1-S2 heard Decreased breath sounds 2+ edema - Labs CBC & Chem 7: 11/13/19 06:18 11/13/19 06:18 Labs: Abnormal Lab Results - Last 24 Hours (Table) 11/12/19 11/12/19 11/12/19 Range/Units 11:31 16:34 20:42 RBC (3.80-5.40) m/uL Hgb (11.4-16.0) gm/dL Hct (34.0-46.0) % Chloride (98-107) mmol/L Carbon Dioxide (22-30) mmol/L BUN (7-17) mg/dL Creatinine (0.52-1.04) mg/dL POC Glucose (mg/dL) 137 H 195 H 234 H (75-99) mg/dL Calcium (8.4-10.2) mg/dL Total Protein (6.3-8.2) g/dL Albumin (3.5-5.0) g/dL 11/13/19 11/13/19 11/13/19 Range/Units 06:14 06:18 06:18 RBC 3.18 L (3.80-5.40) m/uL Hgb 9.4 L (11.4-16.0) gm/dL Hct 29.6 L (34.0-46.0) % Chloride 113 H (98-107) mmol/L Carbon Dioxide 19 L (22-30) mmol/L BUN 41 H (7-17) mg/dL Creatinine 2.35 H (0.52-1.04) mg/dL POC Glucose (mg/dL) 105 H (75-99) mg/dL Calcium 7.9 L (8.4-10.2) mg/dL Total Protein 4.8 L (6.3-8.2) g/dL Albumin 2.4 L (3.5-5.0) g/dL Assessment and Plan Assessment: #1 nonoliguric acute kidney injury secondary to type I cardiorenal syndrome. #2 diastolic CHF #3 metabolic acidosis secondary to acute kidney injury #4 hypertension with chronic kidney disease #5 chronic kidney disease stage III with a baseline creatinine of 1.8-2.0 MG per DL. #6 volume overload Plan: #1 change by mouth Lasix to IV Lasix 40 mg every 8 hours. #2 check bladder scan to rule out urinary retention and renal ultrasound #3 discontinue losartan for now #4 check urine analysis/urine electrolytes #5 labs in the morning
[2019-11-13 12:06] LABS: Glucose,Whole Blood 205 mg/dL (75-99)
[2019-11-13] MEDS: guaiFENesin SYRUP 100MG/5ML 200 MG/10 ML CUP PO PRN (12:46)
[2019-11-13] MEDS: FUROSEMIDE 10 MG/ML 4 ML VIAL IV SCH ×2 (12:49→20:53)
--- NOTE | 2019-11-13 12:52 | US ---
EXAMINATION TYPE: US kidneys/renal and bladder DATE OF EXAM: 11/13/2019 COMPARISON: US abdomen 2014. Bilateral renal ultrasound July 23, 2019 CLINICAL HISTORY: obstruction. EXAM MEASUREMENTS: Right Kidney: 9.6 x 4.5 x 4.6 cm Left Kidney: 10.6 x 5.5 x 5.5 cm Right Kidney: No hydronephrosis or masses seen Left Kidney: lower pole simple appearing thin-walled cyst measures 1.1 x 0.9 x 1.2 cm Bladder: wnl When scanning right kidney adjacent liver is heterogeneously hyperechoic suggesting diffuse fatty inf iltration similar to prior. There is no evidence for hydronephrosis at this point in time. No nephrolithiasis is seen. No olegario rning solid or cystic masses are identified. The urinary bladder is anechoic. IMPRESSION: No hydronephrosis is seen bilaterally.
--- NOTE | 2019-11-13 13:00 | P.PN ---
Subjective This is a pleasant 79-year-old female past medical history significant for coronary artery disease status post 2 V bypass grafting 2010, chronic kidney disease, hypertension, permanent pacemaker implantation and chronic lower extremity edema. She is seen and examined sitting up in the chair in no acute distress. She complains of persistent cough unable to clear secretions, shortness of breath and increased fatigue. Currently maintained on aspirin 81 mg daily, atorvastatin 40 mg daily, Plavix 75 mg daily, Lasix 40 mg IV 3 times a day, hydralazine 75 mg 3 times a day, Imdur 60 mg daily and losartan 50 mg daily. Laboratory data reviewed, sodium 138, potassium 4.8, creatinine 2.35 with a GFR 19. Blood pressure 172/73 with a heart rate of 76, maintaining oxygen saturation on nasal cannula. GENERAL: Well-appearing, well-nourished and in no acute distress. NECK: Supple without JVD or thyromegaly. LUNGS: Scattered rhonchi and faint expiratory wheezes. No rales. Respiration equal and unlabored. HEART: Regular rate and rhythm with systolic ejection murmur at the left sternal border, no rubs or gallops. S1 and S2 heard. EXTREMITIES: Normal range of motion, 2+ bilateral lower extremity pitting edema. No clubbing or cyanosis. Peripheral pulses intact. ASSESSMENT Acute non-ST elevated myocardial infarction on maximum medical therapy Acute exacerbation of COPD Acute on chronic diastolic heart failure Hypertension Acute kidney injury Dyslipidemia History of coronary artery disease status post bypass grafting in 2010 s/p permanent pacemaker implantation Chronic nicotine dependence PLAN Diuretic therapy per nephrology. Stable from a cardiac perspective on current regimen. We will continue to follow as needed. Follow-up with her primary library media specialist upon discharge. Nurse Practitioner note has been reviewed, I agree with a documented findings and plan of care. Patient was seen and examined. Objective - Vital Signs Vital signs: Vital Signs Temp 97.5 F L 11/13/19 08:00 Pulse 76 11/13/19 09:06 Resp 18 11/13/19 08:00 BP 172/73 11/13/19 08:00 Pulse Ox 92 L 11/13/19 08:48 Intake & Output 11/12/19 11/13/19 11/13/19 18:59 06:59 18:59 Intake Total 600 360 Output Total 1424 1500 Balance -824 -1500 360 Weight 97.5 kg Intake: Oral 600 360 Output: Urine 1400 1500 Post Void Residual 24 Other: Voiding Method Toilet Toilet Toilet # Voids 3 - Labs CBC & Chem 7: 11/13/19 06:18 11/13/19 06:18 Labs: Abnormal Lab Results - Last 24 Hours (Table) 11/12/19 11/12/19 11/12/19 Range/Units 11:31 16:34 20:42 RBC (3.80-5.40) m/uL Hgb (11.4-16.0) gm/dL Hct (34.0-46.0) % Chloride (98-107) mmol/L Carbon Dioxide (22-30) mmol/L BUN (7-17) mg/dL Creatinine (0.52-1.04) mg/dL POC Glucose (mg/dL) 137 H 195 H 234 H (75-99) mg/dL Calcium (8.4-10.2) mg/dL Total Protein (6.3-8.2) g/dL Albumin (3.5-5.0) g/dL 11/13/19 11/13/19 11/13/19 Range/Units 06:14 06:18 06:18 RBC 3.18 L (3.80-5.40) m/uL Hgb 9.4 L (11.4-16.0) gm/dL Hct 29.6 L (34.0-46.0) % Chloride 113 H (98-107) mmol/L Carbon Dioxide 19 L (22-30) mmol/L BUN 41 H (7-17) mg/dL Creatinine 2.35 H (0.52-1.04) mg/dL POC Glucose (mg/dL) 105 H (75-99) mg/dL Calcium 7.9 L (8.4-10.2) mg/dL Total Protein 4.8 L (6.3-8.2) g/dL Albumin 2.4 L (3.5-5.0) g/dL
--- NOTE | 2019-11-13 13:00 | P.PN ---
Subjective Progress Note Date: 11/13/19 On 11/13/2019 of seeing the patient for a follow-up on the telemetry unit. She is on oxygen 2 L per minute nasal cannula. Chest x-rays percent with COPD and mild CHF from 11/11/2019. She was diureses IV Lasix and she switched to oral Lasix for now. She is on Symbicort and DuoNeb nebulized treatments around the clock. She has a congested cough and sputum production. No chest pain. No pleurisy. No hemoptysis. On the blood work, there is no significant leukocytosis. The patient's creatinine is at 2.3 with a BUN of 41. There is a non-anion gap metabolic acidosis with a bicarb level of 19 and the patient has an anion gap of 6. Blood sugar is 205 from this morning. She is post non- STEMI. ProBNP level was 2100 at a time of admission and the echocardiogram showed an ejection fraction of 50-55% without any significant pulmonary hypertension. Objective - Vital Signs Vital signs: Vital Signs Temp 97.5 F L 11/13/19 08:00 Pulse 76 11/13/19 09:06 Resp 18 11/13/19 08:00 BP 172/73 11/13/19 08:00 Pulse Ox 92 L 11/13/19 08:48 Intake & Output 11/12/19 11/13/19 11/13/19 18:59 06:59 18:59 Intake Total 600 360 Output Total 1424 1500 Balance -824 -1500 360 Weight 97.5 kg Intake: Oral 600 360 Output: Urine 1400 1500 Post Void Residual 24 Other: Voiding Method Toilet Toilet Toilet # Voids 3 - Exam GENERAL EXAM: Alert, very pleasant, 79-year-old white female, on 3 L of oxygen with a pulse ox of 95%, comfortable in no apparent distress. HEAD: Normocephalic/atraumatic. EYES: Normal reaction of pupils, equal size. Conjunctiva pink, sclera white. NOSE: Clear with pink turbinates. THROAT: No erythema or exudates. NECK: No masses, no JVD, no thyroid enlargement, no adenopathy. CHEST: No chest wall deformity. Symmetrical expansion. LUNGS: Equal air entry with and crackles at the bases CVS: Regular rate and rhythm, normal S1 and S2, no gallops, no murmurs, no rubs ABDOMEN: Soft, nontender. No hepatosplenomegaly, normal bowel sounds, no guarding or rigidity. EXTREMITIES: No clubbing, 1+ edema, patient does have history of chronic lymphedema involving lower extremities no cyanosis, 2+ pulses and upper and lower extremities. MUSCULOSKELETAL: Muscle strength and tone normal. SPINE: No scoliosis or deformity SKIN: No rashes CENTRAL NERVOUS SYSTEM: Alert and oriented -3. No focal deficits, tone is normal in all 4 extremities. PSYCHIATRIC: Alert and oriented -3. Appropriate affect. Intact judgment and insight. - Labs CBC & Chem 7: 11/13/19 06:18 11/13/19 06:18 Labs: Abnormal Lab Results - Last 24 Hours (Table) 11/12/19 11/12/19 11/13/19 Range/Units 16:34 20:42 06:14 RBC (3.80-5.40) m/uL Hgb (11.4-16.0) gm/dL Hct (34.0-46.0) % Chloride (98-107) mmol/L Carbon Dioxide (22-30) mmol/L BUN (7-17) mg/dL Creatinine (0.52-1.04) mg/dL POC Glucose (mg/dL) 195 H 234 H 105 H (75-99) mg/dL Calcium (8.4-10.2) mg/dL Total Protein (6.3-8.2) g/dL Albumin (3.5-5.0) g/dL 11/13/19 11/13/19 11/13/19 Range/Units 06:18 06:18 12:02 RBC 3.18 L (3.80-5.40) m/uL Hgb 9.4 L (11.4-16.0) gm/dL Hct 29.6 L (34.0-46.0) % Chloride 113 H (98-107) mmol/L Carbon Dioxide 19 L (22-30) mmol/L BUN 41 H (7-17) mg/dL Creatinine 2.35 H (0.52-1.04) mg/dL POC Glucose (mg/dL) 205 H (75-99) mg/dL Calcium 7.9 L (8.4-10.2) mg/dL Total Protein 4.8 L (6.3-8.2) g/dL Albumin 2.4 L (3.5-5.0) g/dL Assessment and Plan Plan: #1. Acute exacerbation of COPD #2. Acute non-ST elevated myocardial infarction, currently free of any chest pain #3. Hypertensive emergency, with pulmonary edema, and acute on chronic kidney failure, and the blood pressure is under better control #4. Acute exacerbation of diastolic CHF #5. Acute kidney injury on top of chronic kidney disease #6. History of coronary artery disease status post bypass grafting 19 years ago #7. History of CHF with diastolic dysfunction, echocardiogram showed low normal EF of 50-55% moderate mitral regurgitation, trace tricuspid regurg, PA systolic of less than 35 mmHg, normal inferior vena cava with normal inspiratory collapse an estimated right atrial pressure of 5 mmHg #8. Diabetes mellitus #9. Chronic smoker, carries 50 years of smoking of less than a pack a day, and more recently started vaping in an attempt to quit smoking #10. Oxygen dependent COPD, not consistently compliant with oxygen #11. Hypertension #12. Hyperlipidemia #13. Permanent pacemaker insertion in 2015 #14. Chronic kidney disease, stage III #15. Obstructive sleep apnea on BiPAP machine #16. Obesity, with history of lap band Plan: Monitor the renal function Keep oral Lasix Add IV Solu-Medrol 40 mg every 12 hours Continue DuoNeb nebulized treatments around the clock We'll continue to follow.
--- NOTE | 2019-11-13 15:41 | P.PN ---
Subjective Progress Note Date: 11/13/19 This is a 79-year-old female patient of Dr. Ward. Patient reports that over the past few days she has felt increasingly short of breath with activity and not feeling well. Patient denies any specific chest pain. Patient does have past medical history of coronary artery disease with coronary artery bypass grafting in 2000 and permanent pacemaker implantation 2014. Patient reports she follows with personnel director out of [place] additional medical history includes COPD she is oxygen dependent at home, sleep apnea, diabetes mellitus and chronic kidney disease. Upon arrival the ER patient's troponin elevated at 3.100 followed by troponin 3.680 patient started on heparin drip. Patient's c reatinine also elevated at 2.11 and bun 30 this does appear higher than baseline. Patient's BNP elevated at 21,300. Patient does have +2 lower extremity edema which she does report his chronic for her. Patient states she does follow regularly with barber or beauty shop manager. At this time cardiology, nephrology and pulmonary services will be consulted. Patient remains on heparin drip. IV Lasix has been ordered 40 every 8. Patient's blood pressure upon arrival 200. This has improved medications adjusted per cardiology. At this time patient is resting comfortably in bed. Possible plans for cardiac cath tomorrow. Patient denies any chest pain. Patient denies any shortness of breath. Patient denies nausea vomiting or diarrhea. Patient denies any urinary burning or frequency On 11/11/2019 patient is alert and oriented 3. Cardiology was recommending cardiac cath the patient has refused. Discussed case with Dr. Grande per cardiology will medically managed at this time. Blood pressure has improved hydralazine added per nephrology. Patient has been transitioned to oral Lasix 40 mg twice a day we'll continue to monitor kidney function over the next 24-48 hours. Patient denies any chest pain or shortness breath at this time. Patient denies nausea vomiting or diarrhea. Patient denies any urinary burning or frequency On 11/12/2019 patient's alert and oriented 3. Patient will continue to be medically managed for non-STEMI per cardiology. Creatinine increasing to 2.21 and bun 36. Nephrology are following. Patient has been transitioned to oral Lasix. Patient is having some increased wheezing pulmonary pump services are following. Patient remains on DuoNeb breathing treatments. Patient denies chest pain. Patient denies nausea vomiting or diarrhea. Patient denies any urinary burning or frequency On 11/13/2019 patient was seen and examined on the telemetry floor she is alert and oriented 3 in no apparent distress there is no fever or chills no headache or dizziness no chest pain no shortness of breath no cough no nausea or vomiting no abdominal pain no diarrhea no burning with urination no frequency or urgency no hematuria Objective - Vital Signs Vital signs: Vital Signs Temp 97.9 F 11/13/19 12:00 Pulse 78 11/13/19 13:14 Resp 16 11/13/19 12:00 BP 135/60 11/13/19 12:00 Pulse Ox 98 11/13/19 12:00 Intake & Output 11/12/19 11/13/19 11/13/19 18:59 06:59 18:59 Intake Total 600 720 Output Total 1424 1500 800 Balance -824 -1500 -80 Weight 97.5 kg Intake: Oral 600 720 Output: Urine 1400 1500 800 Post Void Residual 24 Other: Voiding Method Toilet Toilet Toilet # Voids 3 - Exam In general patient is alert and oriented 3 in no apparent distress Head normocephalic and atraumatic Neck supple no JVD no goiter Lungs diminished bilaterally Heart regular rate and rhythm S1-S2, no rub or gallop Abdomen is soft nontender nondistended positive bowel sounds no hepatosplenomegaly Extremities +2 lower extremity edema Neuro no gross focal neurological deficit - Labs CBC & Chem 7: 11/13/19 06:18 11/13/19 06:18 Labs: Abnormal Lab Results - Last 24 Hours (Table) 11/12/19 11/12/19 11/13/19 Range/Units 16:34 20:42 06:14 RBC (3.80-5.40) m/uL Hgb (11.4-16.0) gm/dL Hct (34.0-46.0) % Chloride (98-107) mmol/L Carbon Dioxide (22-30) mmol/L BUN (7-17) mg/dL Creatinine (0.52-1.04) mg/dL POC Glucose (mg/dL) 195 H 234 H 105 H (75-99) mg/dL Calcium (8.4-10.2) mg/dL Total Protein (6.3-8.2) g/dL Albumin (3.5-5.0) g/dL 11/13/19 11/13/19 11/13/19 Range/Units 06:18 06:18 12:02 RBC 3.18 L (3.80-5.40) m/uL Hgb 9.4 L (11.4-16.0) gm/dL Hct 29.6 L (34.0-46.0) % Chloride 113 H (98-107) mmol/L Carbon Dioxide 19 L (22-30) mmol/L BUN 41 H (7-17) mg/dL Creatinine 2.35 H (0.52-1.04) mg/dL POC Glucose (mg/dL) 205 H (75-99) mg/dL Calcium 7.9 L (8.4-10.2) mg/dL Total Protein 4.8 L (6.3-8.2) g/dL Albumin 2.4 L (3.5-5.0) g/dL Assessment and Plan Plan: 1. Non-ST elevated myocardial infarction. Troponins elevated at 3.1 and 3.681. Patient currently maintained on heparin drip cardiology services are following. Cardiology services were recommending cardiac cath but patient declined. At this time per cardiology services will medically manage 2. Acute exacerbation of diastolic CHF. 2-D echo completed showing an EF of 50-55%. Patient currently maintained on IV Lasix. BNP elevated at 21,000. She has been transitioned to oral Lasix per cardiology 3. Hypertensive urgency. Blood pressure upon arrival greater than 200 medications have been adjusted per cardiology will continue to monitor. Hydrala zine has been added per nephrology services blood pressure has improved 4. Acute on chronic kidney disease initial creatinine elevated at 2.11 and bun 30 this does appear higher than baseline. Nephrology services have been consulted. Patient does reports she follows regularly with barber or beauty shop manager 5. History of coronary artery disease with coronary artery bypass graft surgery 2000. Patient reports follows with personnel director on [place] 6. History of permanent pacemaker placement 2014 7. Diabetes mellitus type 2. Home long-acting insulin resumed. Sliding scale coverage ordered 8. History of sleep apnea 9. History of COPD oxygen dependent. Patient was evaluated by pulmonary services continue breathing treatment Symbicort added. Chest x-ray completed showing pleuroparenchymal changes most suggestive COPD with superimposed mild CHF or interstitial pneumonitis. Findings stable underlying pneumonia at the lung bases not excluded. Pulmonary services are following 10. Metabolic acidosis secondary to acute kidney injury. Sodium bicarb added per nephrology DVT prophylaxis heparin drip. GI prophylaxis Pepcid Cardiology, nephrology and pulmonary service is consulted
[2019-11-13] MEDS: methylPREDNISolone SOD SUCCI 40 MG/ML 1 ML VIAL IV SCH ×2 (16:11→23:49)
[2019-11-13 16:59] LABS: Glucose,Whole Blood 170 mg/dL (75-99)
[2019-11-13 17:30] LABS: Appearance,Urine Clear (Clear); Bacteria,Urine Rare /hpf; Bilirubin,Urine Negative (Negative); Blood,Urine Negative (Negative); Color,Urine Light Yellow; Glucose,Urine (UA) Trace (Negative); Ketones,Urine Negative (Negative); Leukocyte Esterase,Urine Negative (Negative); Mucus,Urine Rare /hpf; Nitrite,Urine Negative (Negative); PH, Urine 5.5 (5.0-8.0); Protein,Urine 2+ (Negative); RBC,Urine <1 /hpf (0-5); Specific Gravity,Urine 1.009 (1.001-1.035); Squamous Epithelial Cell,Urine <1 /hpf (0-4); Urobilinogen,Urine <2.0 mg/dL (<2.0); WBC,Urine 2 /hpf (0-5)
[2019-11-13 20:42] LABS: Glucose,Whole Blood 373 mg/dL (75-99)
[2019-11-13] MEDS: ATORVASTATIN 40 MG TAB PO SCH (20:53)
[2019-11-13] MEDS: TEMAZEPAM 15 MG CAP PO SCH (20:53)
[2019-11-13] MEDS: INSULIN DETEMIR (LEVEMIR) 100 UNIT/ML SYR SQ SCH (20:54)
[2019-11-14] MEDS: FUROSEMIDE 10 MG/ML 4 ML VIAL IV SCH ×3 (05:12→21:21)
[2019-11-14 06:11] LABS: Glucose,Whole Blood 375 mg/dL (75-99)
[2019-11-14 06:12] LABS: Basophils % (A) 0 %; Eosinophils % (A) 0 %; HCT 30.7 % (34.0-46.0); HGB 9.6 gm/dL (11.4-16.0); Lymphocytes # (A) 0.6 k/uL (1.0-4.8); Lymphocytes % (A) 11 %; MCH 28.8 pg (25.0-35.0); MCHC 31.4 g/dL (31.0-37.0); MCV 91.9 fL (80.0-100.0); Mean Platelet Volume 8.8; Monocytes # (A) 0.6 k/uL (0-1.0); Monocytes % (A) 11 %; Neutrophils % (A) 75 %; Platelet Count 177 k/uL (150-450); RBC 3.34 m/uL (3.80-5.40); WBC 5.3 k/uL (3.8-10.6)
[2019-11-14] MEDS: INSULIN ASPART (NovoLOG) 100 UNIT/ML VIAL SQ SCH ×4 (06:22→21:23)
[2019-11-14 06:42] LABS: Albumin 2.7 g/dL (3.5-5.0); Calcium 8.2 mg/dL (8.4-10.2); Potassium 5.3 mmol/L (3.5-5.1); Total Bilirubin 0.3 mg/dL (0.2-1.3); Total Protein 5.1 g/dL (6.3-8.2)
[2019-11-14] MEDS: SYMBICORT 160-4.5 MCG INHALER INHALATION SCH ×2 (08:21→20:25)
[2019-11-14] MEDS: IPRATROPIUM-ALBUTEROL 3 ML NEB INHALATION SCH ×4 (08:21→20:25)
[2019-11-14] MEDS ORDERED: guaiFENesin-Coden 100-10MG/5ML 10 ML CUP PO PRN (09:02)
[2019-11-14] MEDS: ISOSORBIDE MONONITRATE ER 60 MG TAB.ER.24H PO SCH ×2 (09:30→21:22)
[2019-11-14] MEDS: SODIUM BICARBONATE TAB 650 MG TAB PO SCH ×2 (09:45→21:22)
[2019-11-14] MEDS: CLOPIDOGREL 75 MG TAB PO SCH (09:45)
[2019-11-14] MEDS: hydrALAZINE HCL 25 MG TAB PO SCH ×3 (09:45→21:22)
[2019-11-14] MEDS: ASPIRIN 81 MG PO SCH (09:45)
[2019-11-14] MEDS: FAMOTIDINE 20 MG TAB PO SCH (09:45)
[2019-11-14] MEDS: methylPREDNISolone SOD SUCCI 40 MG/ML 1 ML VIAL IV SCH (09:45)
[2019-11-14] MEDS: HEPARIN SODIUM,PORCINE 5,000 UNIT/ML 1 ML VIAL SQ SCH ×2 (09:45→21:22)
--- NOTE | 2019-11-14 09:57 | P.PN ---
Subjective Progress Note Date: 11/14/19 This is a 79-year-old female patient of Dr. Ward. Patient reports that over the past few days she has felt increasingly short of breath with activity and not feeling well. Patient denies any specific chest pain. Patient does have past medical history of coronary artery disease with coronary artery bypass grafting in 2000 and permanent pacemaker implantation 2014. Patient reports she follows with bridge game director out of [place] additional medical history includes COPD she is oxygen dependent at home, sleep apnea, diabetes mellitus and chronic kidney disease. Upon arrival the ER patient's troponin elevated at 3.100 followed by troponin 3.680 patient started on heparin drip. Patient's c reatinine also elevated at 2.11 and bun 30 this does appear higher than baseline. Patient's BNP elevated at 21,300. Patient does have +2 lower extremity edema which she does report his chronic for her. Patient states she does follow regularly with patent attorney. At this time cardiology, nephrology and pulmonary services will be consulted. Patient remains on heparin drip. IV Lasix has been ordered 40 every 8. Patient's blood pressure upon arrival 200. This has improved medications adjusted per cardiology. At this time patient is resting comfortably in bed. Possible plans for cardiac cath tomorrow. Patient denies any chest pain. Patient denies any shortness of breath. Patient denies nausea vomiting or diarrhea. Patient denies any urinary burning or frequency On 11/11/2019 patient is alert and oriented 3. Cardiology was recommending cardiac cath the patient has refused. Discussed case with Dr. Grande per cardiology will medically managed at this time. Blood pressure has improved hydralazine added per nephrology. Patient has been transitioned to oral Lasix 40 mg twice a day we'll continue to monitor kidney function over the next 24-48 hours. Patient denies any chest pain or shortness breath at this time. Patient denies nausea vomiting or diarrhea. Patient denies any urinary burning or frequency On 11/12/2019 patient's alert and oriented 3. Patient will continue to be medically managed for non-STEMI per cardiology. Creatinine increasing to 2.21 and bun 36. Nephrology are following. Patient has been transitioned to oral Lasix. Patient is having some increased wheezing pulmonary pump services are following. Patient remains on DuoNeb breathing treatments. Patient denies chest pain. Patient denies nausea vomiting or diarrhea. Patient denies any urinary burning or frequency On 11/13/2019 patient was seen and examined on the telemetry floor she is alert and oriented 3 in no apparent distress there is no fever or chills no headache or dizziness no chest pain no shortness of breath no cough no nausea or vomiting no abdominal pain no diarrhea no burning with urination no frequency or urgency no hematuria On 11/14/2019 patient was seen and examined on the telemetry floor she is complaining of shortness of breath with activity she is complaining of cough otherwise she denies any complaints there is no fever or chills no headache or dizziness no chest pain no nausea or vomiting no abdominal pain no diarrhea no burning was urination no frequency or urgency and no hematuria patient has 3+ pitting edema bilaterally Objective - Vital Signs Vital signs: Vital Signs Temp 98 F 11/13/19 20:00 Pulse 84 11/14/19 08:34 Resp 19 11/14/19 04:00 BP 156/67 11/14/19 04:00 Pulse Ox 95 11/14/19 08:24 Intake & Output 11/13/19 11/14/19 11/14/19 17:59 06:59 18:59 Intake Total 120 Output Total Balance 120 Weight Intake: Oral 120 Output: Urine Other: Voiding Method - Exam In general patient is alert and oriented 3 in no apparent distress Head normocephalic and atraumatic Neck supple no JVD no goiter Lungs diminished bilaterally Heart regular rate and rhythm S1-S2, no rub or gallop Abdomen is soft nontender nondistended positive bowel sounds no hepatosplenome sylvester Extremities +3 lower extremity edema no cyanosis or clubbing Neuro no gross focal neurological deficit - Labs CBC & Chem 7: 11/14/19 05:53 11/14/19 05:53 Labs: Abnormal Lab Results - Last 24 Hours (Table) 11/13/19 11/13/19 11/13/19 Range/Units 12:02 15:00 16:58 RBC (3.80-5.40) m/uL Hgb (11.4-16.0) gm/dL Hct (34.0-46.0) % Lymphocytes # (1.0-4.8) k/uL Sodium (137-145) mmol/L Potassium (3.5-5.1) mmol/L BUN (7-17) mg/dL Creatinine (0.52-1.04) mg/dL Glucose (74-99) mg/dL POC Glucose (mg/dL) 205 H 170 H (75-99) mg/dL Calcium (8.4-10.2) mg/dL Total Protein (6.3-8.2) g/dL Albumin (3.5-5.0) g/dL Urine Protein 2+ H (Negative) Urine Glucose (UA) Trace H (Negative) Urine Bacteria Rare H (None) /hpf Urine Mucus Rare H (None) /hpf 11/13/19 11/14/19 11/14/19 Range/Units 20:40 05:53 05:53 RBC 3.34 L (3.80-5.40) m/uL Hgb 9.6 L (11.4-16.0) gm/dL Hct 30.7 L (34.0-46.0) % Lymphocytes # 0.6 L (1.0-4.8) k/uL Sodium 134 L (137-145) mmol/L Potassium 5.3 H (3.5-5.1) mmol/L BUN 43 H (7-17) mg/dL Creatinine 2.25 H (0.52-1.04) mg/dL Glucose 333 H (74-99) mg/dL POC Glucose (mg/dL) 373 H (75-99) mg/dL Calcium 8.2 L (8.4-10.2) mg/dL Total Protein 5.1 L (6.3-8.2) g/dL Albumin 2.7 L (3.5-5.0) g/dL Urine Protein (Negative) Urine Glucose (UA) (Negative) Urine Bacteria (None) /hpf Urine Mucus (None) /hpf 11/14/19 Range/Units 06:10 RBC (3.80-5.40) m/uL Hgb (11.4-16.0) gm/dL Hct (34.0-46.0) % Lymphocytes # (1.0-4.8) k/uL Sodium (137-145) mmol/L Potassium (3.5-5.1) mmol/L BUN (7-17) mg/dL Creatinine (0.52-1.04) mg/dL Glucose (74-99) mg/dL POC Glucose (mg/dL) 375 H (75-99) mg/dL Calcium (8.4-10.2) mg/dL Total Protein (6.3-8.2) g/dL Albumin (3.5-5.0) g/dL Urine Protein (Negative) Urine Glucose (UA) (Negative) Urine Bacteria (None) /hpf Urine Mucus (None) /hpf Assessment and Plan Plan: 1. Non-ST elevated myocardial infarction. Troponins elevated at 3.1 and 3.681. Patient currently maintained on heparin drip cardiology services are following. Cardiology services were recommending cardiac cath but patient declined. At this time per cardiology services will medically manage 2. Acute exacerbation of diastolic CHF. 2-D echo completed showing an EF of 50-55%. Patient currently maintained on IV Lasix. BNP elevated at 21,000. She has been transitioned to oral Lasix per cardiology 3. Hypertensive urgency. Blood pressure upon arrival greater than 200 medications have been adjusted per cardiology will continue to monitor. Hydralazine has been added per nephrology services blood pressure has improved 4. Acute on chronic kidney disease initial creatinine elevated at 2.11 and bun 30 this does appear higher than baseline. Nephrology services have been consulted. Patient does reports she follows regularly with patent attorney 5. History of coronary artery disease with coronary artery bypass graft surgery 2000. Patient reports follows with bridge game director on [place] 6. History of permanent pacemaker placement 2014 7. Diabetes mellitus type 2. Home long-acting insulin resumed. Sliding scale coverage ordered 8. History of sleep apnea 9. History of COPD oxygen dependent. Patient was evaluated by pulmonary services continue breathing treatment Symbicort added. Chest x-ray completed showing pleuroparenchymal changes most suggestive COPD with superimposed mild CHF or interstitial pneumonitis. Findings stable underlying pneumonia at the lung bases not excluded. Pulmonary services are following 10. Metabolic acidosis secondary to acute kidney injury. Sodium bicarb added per nephrology DVT prophylaxis heparin drip. GI prophylaxis Pepcid Cardiology, nephrology and pulmonary service is consulted
[2019-11-14 11:39] LABS: Glucose,Whole Blood 371 mg/dL (75-99)
--- NOTE | 2019-11-14 11:43 | P.PN ---
Subjective Progress Note Date: 11/14/19 Follow-up for acute kidney injury. Still has lower extremity edema Objective - Vital Signs Vital signs: Vital Signs Temp 98 F 11/13/19 20:00 Pulse 84 11/14/19 08:34 Resp 19 11/14/19 04:00 BP 156/67 11/14/19 04:00 Pulse Ox 95 11/14/19 08:24 Intake & Output 11/13/19 11/14/19 11/14/19 17:59 06:59 18:59 Intake Total 120 Output Total Balance 120 Weight Intake: Oral 120 Output: Urine Other: Voiding Method - Exam No acute distress S1-S2 heard Decreased breath sounds 2+ edema - Labs CBC & Chem 7: 11/14/19 05:53 11/14/19 05:53 Labs: Abnormal Lab Results - Last 24 Hours (Table) 11/13/19 11/13/19 11/13/19 Range/Units 12:02 15:00 16:58 RBC (3.80-5.40) m/uL Hgb (11.4-16.0) gm/dL Hct (34.0-46.0) % Lymphocytes # (1.0-4.8) k/uL Sodium (137-145) mmol/L Potassium (3.5-5.1) mmol/L BUN (7-17) mg/dL Creatinine (0.52-1.04) mg/dL Glucose (74-99) mg/dL POC Glucose (mg/dL) 205 H 170 H (75-99) mg/dL Calcium (8.4-10.2) mg/dL Total Protein (6.3-8.2) g/dL Albumin (3.5-5.0) g/dL Urine Protein 2+ H (Negative) Urine Glucose (UA) Trace H (Negative) Urine Bacteria Rare H (None) /hpf Urine Mucus Rare H (None) /hpf 11/13/19 11/14/19 11/14/19 Range/Units 20:40 05:53 05:53 RBC 3.34 L (3.80-5.40) m/uL Hgb 9.6 L (11.4-16.0) gm/dL Hct 30.7 L (34.0-46.0) % Lymphocytes # 0.6 L (1.0-4.8) k/uL Sodium 134 L (137-145) mmol/L Potassium 5.3 H (3.5-5.1) mmol/L BUN 43 H (7-17) mg/dL Creatinine 2.25 H (0.52-1.04) mg/dL Glucose 333 H (74-99) mg/dL POC Glucose (mg/dL) 373 H (75-99) mg/dL Calcium 8.2 L (8.4-10.2) mg/dL Total Protein 5.1 L (6.3-8.2) g/dL Albumin 2.7 L (3.5-5.0) g/dL Urine Protein (Negative) Urine Glucose (UA) (Negative) Urine Bacteria (None) /hpf Urine Mucus (None) /hpf 11/14/19 Range/Units 06:10 RBC (3.80-5.40) m/uL Hgb (11.4-16.0) gm/dL Hct (34.0-46.0) % Lymphocytes # (1.0-4.8) k/uL Sodium (137-145) mmol/L Potassium (3.5-5.1) mmol/L BUN (7-17) mg/dL Creatinine (0.52-1.04) mg/dL Glucose (74-99) mg/dL POC Glucose (mg/dL) 375 H (75-99) mg/dL Calcium (8.4-10.2) mg/dL Total Protein (6.3-8.2) g/dL Albumin (3.5-5.0) g/dL Urine Protein (Negative) Urine Glucose (UA) (Negative) Urine Bacteria (None) /hpf Urine Mucus (None) /hpf Assessment and Plan Assessment: #1 nonoliguric acute kidney injury secondary to type I cardiorenal syndrome. #2 diastolic CHF #3 metabolic acidosis secondary to acute kidney injury #4 hypertension with chronic kidney disease #5 chronic kidney disease stage III with a baseline creatinine of 1.8-2.0 MG per DL. #6 volume overload #7 mild hyperkalemia secondary to transcellular shift with hyperglycemia #8 pseudohyponatremia from hyperglycemia Plan: #1 continue with Lasix 40 mg IV every 8 hours, add metolazone 2.5 mg twice a day. #2 monitor bladder scans. #3 discontinue losartan for now #4 check urine analysis/urine electrolytes #5 labs in the morning
[2019-11-14] MEDS: METOLAZONE 2.5 MG TAB PO SCH ×2 (13:17→21:22)
[2019-11-14] MEDS ORDERED: ACETAMINOPHEN TAB 325 MG TAB PO STA (13:33)
[2019-11-14] MEDS ORDERED: NITROGLYCERIN SL TABS 0.4 MG TAB SUBLINGUAL PRN (13:33)
--- NOTE | 2019-11-14 13:49 | P.PN ---
Subjective Progress Note Date: 11/14/19 Physical pleasant 79-year-old female patient with past medical history significant for CAD, status post two-vessel bypass grafting in 2010, chronic kidney disease, hypertension, permanent pacemaker implantation and chronic lower extremity edema. Initially presented with hypertension and acute kidney injury and acute events ST elevation SD and medications were adjusted and she been doing well. She is currently on aspirin 81 mg by mouth daily, atorvastatin 40 mg by mouth daily, Plavix 75 mg by mouth daily, Lasix 40 mg IV every 8 hours, hydralazine 75 mg by mouth 3 times a day, isosorbide mononitrate ER 60 mg by mouth daily and metolazone 2.5 mg by mouth twice a day. This morning the kajal ent developed a headache which subsequently radiated into her jaw and also had some chest heaviness. Blood pressure remains somewhat elevated. EKG today showed a 100% paced rhythm. Labs this morning show potassium 5.3, BUN 43, creatinine 2.25, hemoglobin 9.6. Upon examination, patient is resting in bed continues to complain of headache and some jaw discomfort feels a little better overall. Does have some mild shortness of breath. Denies any dizziness or palpitations. Objective - Vital Signs Vital signs: Vital Signs Temp 98 F 11/13/19 20:00 Pulse 80 11/14/19 11:55 Resp 19 11/14/19 04:00 BP 156/67 11/14/19 04:00 Pulse Ox 95 11/14/19 08:24 Intake & Output 11/13/19 11/14/19 11/14/19 17:59 06:59 18:59 Intake Total 120 Output Total Balance 120 Weight Intake: Oral 120 Output: Urine Other: Voiding Method - Exam PHYSICAL EXAMINATION: HEENT: Head is atraumatic, normocephalic. Pupils equal, round. Neck is supple. There is no elevated jugular venous pressure. HEART EXAMINATION: Heart sounds regular, S1 and S2 with a systolic ejection murmur at the left sternal border. CHEST EXAMINATION: Lungs reveal faint extra wheezing throughout. No chest wall tenderness is noted on palpation or with deep breathing. ABDOMEN: Soft, nontender. Bowel sounds are heard. No organomegaly noted. EXTREMITIES: 2+ peripheral pulses with no evidence of peripheral edema and no calf tenderness noted. NEUROLOGIC patient is awake, alert and oriented x3. . - Labs CBC & Chem 7: 11/14/19 05:53 11/14/19 05:53 Labs: Abnormal Lab Results - Last 24 Hours (Table) 11/13/19 11/13/19 11/13/19 Range/Units 15:00 16:58 20:40 RBC (3.80-5.40) m/uL Hgb (11.4-16.0) gm/dL Hct (34.0-46.0) % Lymphocytes # (1.0-4.8) k/uL Sodium (137-145) mmol/L Potassium (3.5-5.1) mmol/L BUN (7-17) mg/dL Creatinine (0.52-1.04) mg/dL Glucose (74-99) mg/dL POC Glucose (mg/dL) 170 H 373 H (75-99) mg/dL Calcium (8.4-10.2) mg/dL Total Protein (6.3-8.2) g/dL Albumin (3.5-5.0) g/dL Urine Protein 2+ H (Negative) Urine Glucose (UA) Trace H (Negative) Urine Bacteria Rare H (None) /hpf Urine Mucus Rare H (None) /hpf 11/14/19 11/14/19 11/14/19 Range/Units 05:53 05:53 06:10 RBC 3.34 L (3.80-5.40) m/uL Hgb 9.6 L (11.4-16.0) gm/dL Hct 30.7 L (34.0-46.0) % Lymphocytes # 0.6 L (1.0-4.8) k/uL Sodium 134 L (137-145) mmol/L Potassium 5.3 H (3.5-5.1) mmol/L BUN 43 H (7-17) mg/dL Creatinine 2.25 H (0.52-1.04) mg/dL Glucose 333 H (74-99) mg/dL POC Glucose (mg/dL) 375 H (75-99) mg/dL Calcium 8.2 L (8.4-10.2) mg/dL Total Protein 5.1 L (6.3-8.2) g/dL Albumin 2.7 L (3.5-5.0) g/dL Urine Protein (Negative) Urine Glucose (UA) (Negative) Urine Bacteria (None) /hpf Urine Mucus (None) /hpf 11/14/19 Range/Units 11:38 RBC (3.80-5.40) m/uL Hgb (11.4-16.0) gm/dL Hct (34.0-46.0) % Lymphocytes # (1.0-4.8) k/uL Sodium (137-145) mmol/L Potassium (3.5-5.1) mmol/L BUN (7-17) mg/dL Creatinine (0.52-1.04) mg/dL Glucose (74-99) mg/dL POC Glucose (mg/dL) 371 H (75-99) mg/dL Calcium (8.4-10.2) mg/dL Total Protein (6.3-8.2) g/dL Albumin (3.5-5.0) g/dL Urine Protein (Negative) Urine Glucose (UA) (Negative) Urine Bacteria (None) /hpf Urine Mucus (None) /hpf Assessment and Plan Assessment: #1 non-ST elevation SD with recurrent chest discomfort, has chosen to pursue medical management at this time #2 acute exacerbation of COPD #3 acute on chronic diastolic heart failure #4 acute kidney injury on chronic kidney disease #5 hypertension, poorly controlled #6 hyperlipidemia #7 history of CAD status post bypass grafting in 2010 #8 diabetes mellitus #9 status post pacemaker implantation #10 chronic nicotine dependence Plan: From home service director perspective, we will order sublingual nitro to be given as needed. Will order Tylenol to be given once for headache. We will increase isosorbide 60 mg by mouth twice a day. We will start the patient on carvedilol 6.25 mg by mouth twice a day. We'll continue to follow the patient for further recommendations accordingly. ECD note has been reviewed, I agree with a documented findings and plan of care. Patient was seen and examined.
--- NOTE | 2019-11-14 15:26 | P.PN ---
Subjective Progress Note Date: 11/14/19 On today's evaluation of 11/14/2019, the patient's course has improved significantly. No significant cough or congestion or any chest wheezing on today's evaluation. She was in COPD exacerbation I gave her IV Solu-Medrol yesterday and she improved significantly. Nevertheless, the patient developed some chest pain and jaw pain along with some headache earlier. Cardiology was made aware. Her EKG showed 100% pacing. Blood work was done and the hemoglobin was at 9.6 with a creatinine of 2.25.. She was placed on Coreg. No plans to do any further cardiac evaluation. She remains on Lasix 40 mg IV every 8 hours and the rest of medications include aspirin, high-dose Lipitor, Plavix, hydralazine and angios. He is also on Zaroxolyn 2.5 mg twice a day. She is post non-STEMI. ProBNP level was 2100 at a time of admission and the echocardiogram showed an ejection fraction of 50-55% without any significant pulmonary hypertension. Objective - Vital Signs Vital signs: Vital Signs Temp 98 F 11/13/19 20:00 Pulse 80 11/14/19 11:55 Resp 19 11/14/19 04:00 BP 156/67 11/14/19 04:00 Pulse Ox 95 11/14/19 08:24 Intake & Output 11/13/19 11/14/19 11/14/19 17:59 06:59 18:59 Intake Total 240 Output Total Balance 240 Weight Intake: Oral 240 Output: Urine Other: Voiding Method - Exam GENERAL EXAM: Alert, very pleasant, 79-year-old white female, on 3 L of oxygen with a pulse ox of 95%, comfortable in no apparent distress. HEAD: Normocephalic/atraumatic. EYES: Normal reaction of pupils, equal size. Conjunctiva pink, sclera white. NOSE: Clear with pink turbinates. THROAT: No erythema or exudates. NECK: No masses, no JVD, no thyroid enlargement, no adenopathy. CHEST: No chest wall deformity. Symmetrical expansion. LUNGS: Breath sounds are equal and symmetrical and improved air entry bi laterally without any significant wheeze CVS: Regular rate and rhythm, normal S1 and S2, no gallops, no murmurs, no rubs ABDOMEN: Soft, nontender. No hepatosplenomegaly, normal bowel sounds, no guard ing or rigidity. EXTREMITIES: No clubbing, 1+ edema, patient does have history of chronic lymphedema involving lower extremities no cyanosis, 2+ pulses and upper and lower extremities. MUSCULOSKELETAL: Muscle strength and tone normal. SPINE: No scoliosis or deformity SKIN: No rashes CENTRAL NERVOUS SYSTEM: Alert and oriented -3. No focal deficits, tone is normal in all 4 extremities. PSYCHIATRIC: Alert and oriented -3. Appropriate affect. Intact judgment and insight. - Labs CBC & Chem 7: 11/14/19 05:53 11/14/19 05:53 Labs: Abnormal Lab Results - Last 24 Hours (Table) 11/13/19 11/13/19 11/13/19 Range/Units 15:00 16:58 20:40 RBC (3.80-5.40) m/uL Hgb (11.4-16.0) gm/dL Hct (34.0-46.0) % Lymphocytes # (1.0-4.8) k/uL Sodium (137-145) mmol/L Potassium (3.5-5.1) mmol/L BUN (7-17) mg/dL Creatinine (0.52-1.04) mg/dL Glucose (74-99) mg/dL POC Glucose (mg/dL) 170 H 373 H (75-99) mg/dL Calcium (8.4-10.2) mg/dL Total Protein (6.3-8.2) g/dL Albumin (3.5-5.0) g/dL Urine Protein 2+ H (Negative) Urine Glucose (UA) Trace H (Negative) Urine Bacteria Rare H (None) /hpf Urine Mucus Rare H (None) /hpf 11/14/19 11/14/19 11/14/19 Range/Units 05:53 05:53 06:10 RBC 3.34 L (3.80-5.40) m/uL Hgb 9.6 L (11.4-16.0) gm/dL Hct 30.7 L (34.0-46.0) % Lymphocytes # 0.6 L (1.0-4.8) k/uL Sodium 134 L (137-145) mmol/L Potassium 5.3 H (3.5-5.1) mmol/L BUN 43 H (7-17) mg/dL Creatinine 2.25 H (0.52-1.04) mg/dL Glucose 333 H (74-99) mg/dL POC Glucose (mg/dL) 375 H (75-99) mg/dL Calcium 8.2 L (8.4-10.2) mg/dL Total Protein 5.1 L (6.3-8.2) g/dL Albumin 2.7 L (3.5-5.0) g/dL Urine Protein (Negative) Urine Glucose (UA) (Negative) Urine Bacteria (None) /hpf Urine Mucus (None) /hpf 11/14/19 Range/Units 11:38 RBC (3.80-5.40) m/uL Hgb (11.4-16.0) gm/dL Hct (34.0-46.0) % Lymphocytes # (1.0-4.8) k/uL Sodium (137-145) mmol/L Potassium (3.5-5.1) mmol/L BUN (7-17) mg/dL Creatinine (0.52-1.04) mg/dL Glucose (74-99) mg/dL POC Glucose (mg/dL) 371 H (75-99) mg/dL Calcium (8.4-10.2) mg/dL Total Protein (6.3-8.2) g/dL Albumin (3.5-5.0) g/dL Urine Protein (Negative) Urine Glucose (UA) (Negative) Urine Bacteria (None) /hpf Urine Mucus (None) /hpf Assessment and Plan Plan: #1. Acute exacerbation of COPD, improving #2. Acute non-ST elevated myocardial infarction, currently free of any chest pain, however earlier the patient had some chest pain and jaw pain. Cardiology was made aware. She is being treated medically. #3. Hypertensive emergency, with pulmonary edema, and acute on chronic kidney failure, and the blood pressure is under better control #4. Acute exacerbation of diastolic CHF #5. Acute kidney injury on top of chronic kidney disease #6. History of coronary artery disease status post bypass grafting 19 years ago #7. History of CHF with diastolic dysfunction, echocardiogram showed low normal EF of 50-55% moderate mitral regurgitation, trace tricuspid regurg, PA systolic of less than 35 mmHg, normal inferior vena cava with normal inspiratory collapse an estimated right atrial pressure of 5 mmHg #8. Diabetes mellitus #9. Chronic smoker, carries 50 years of smoking of less than a pack a day, and more recently started vaping in an attempt to quit smoking #10. Oxygen dependent COPD, not consistently compliant with oxygen #11. Hypertension #12. Hyperlipidemia #13. Permanent pacemaker insertion in 2015 #14. Chronic kidney disease, stage III #15. Obstructive sleep apnea on BiPAP machine #16. Obesity, with history of lap band Plan: This continued IV Solu-Medrol. COPD status improved significantly. She is on Symbicort. Management of non-STEMI and chest pain per cardiology. She is on a combination of medical treatments including diuresis with IV Lasix 40 mg every 8 hours. Monitor renal function. We'll follow.
[2019-11-14 16:51] LABS: Glucose,Whole Blood 396 mg/dL (75-99)
[2019-11-14] MEDS: CARVEDILOL 6.25 MG TAB PO SCH (17:49)
[2019-11-14 20:32] LABS: Glucose,Whole Blood 299 mg/dL (75-99)
[2019-11-14] MEDS: ATORVASTATIN 40 MG TAB PO SCH (21:22)
[2019-11-14] MEDS: TEMAZEPAM 15 MG CAP PO SCH (21:22)
[2019-11-14] MEDS: INSULIN DETEMIR (LEVEMIR) 100 UNIT/ML SYR SQ SCH (21:22)
[2019-11-15] MEDS: CARVEDILOL 6.25 MG TAB PO SCH ×2 (06:15→17:27)
[2019-11-15] MEDS: FUROSEMIDE 10 MG/ML 4 ML VIAL IV SCH ×3 (06:15→21:38)
[2019-11-15 06:18] LABS: Glucose,Whole Blood 97 mg/dL (75-99)
[2019-11-15] MEDS: INSULIN ASPART (NovoLOG) 100 UNIT/ML VIAL SQ SCH ×4 (06:19→21:38)
[2019-11-15 07:55] LABS: HCT 28.7 % (34.0-46.0); HGB 9.1 gm/dL (11.4-16.0); MCHC 31.7 g/dL (31.0-37.0); MCV 91.7 fL (80.0-100.0); Mean Platelet Volume 9.1; Platelet Count 206 k/uL (150-450); RBC 3.13 m/uL (3.80-5.40); WBC 7.2 k/uL (3.8-10.6)
[2019-11-15 08:06] LABS: Albumin 2.5 g/dL (3.5-5.0); Calcium 8.2 mg/dL (8.4-10.2); Potassium 5.6 mmol/L (3.5-5.1); Total Bilirubin 0.3 mg/dL (0.2-1.3)
[2019-11-15] MEDS: FAMOTIDINE 20 MG TAB PO SCH (08:09)
[2019-11-15] MEDS: HEPARIN SODIUM,PORCINE 5,000 UNIT/ML 1 ML VIAL SQ SCH ×2 (08:09→21:38)
[2019-11-15] MEDS: CLOPIDOGREL 75 MG TAB PO SCH (08:09)
[2019-11-15] MEDS: METOLAZONE 2.5 MG TAB PO SCH ×2 (08:09→21:37)
[2019-11-15] MEDS: SODIUM BICARBONATE TAB 650 MG TAB PO SCH (08:09)
[2019-11-15] MEDS: ISOSORBIDE MONONITRATE ER 60 MG TAB.ER.24H PO SCH ×2 (08:09→21:37)
[2019-11-15] MEDS: ASPIRIN 81 MG PO SCH (08:09)
[2019-11-15] MEDS: hydrALAZINE HCL 25 MG TAB PO SCH ×3 (08:09→21:37)
[2019-11-15] MEDS ORDERED: SODIUM POLYSTYRENE SULFONATE 15 GM/60 ML BOTTLE PO STA (08:33)
[2019-11-15] MEDS: IPRATROPIUM-ALBUTEROL 3 ML NEB INHALATION SCH ×4 (08:56→19:50)
[2019-11-15] MEDS: SYMBICORT 160-4.5 MCG INHALER INHALATION SCH ×2 (08:56→19:50)
[2019-11-15 09:37] LABS: Basophils # (M) 0.14 k/uL (0-0.2); Eosinophils # (M) 0.07 k/uL (0-0.7); Lymphocytes # (M) 1.37 k/uL (1.0-4.8); Monocytes # (M) 0.14 k/uL (0-1.0); Neutrophils # (M) 5.47 k/uL (1.3-7.7); Neutrophils % (M) 76 %; Nucleated Red Blood Cells 0 /100 WBC (0-0); Total Cells Counted 100
[2019-11-15 09:38] LABS: Poikilocytosis (M) Present
--- NOTE | 2019-11-15 10:48 | P.PN ---
Subjective Progress Note Date: 11/15/19 This is a 79-year-old female patient of Dr. Ward. Patient reports that over the past few days she has felt increasingly short of breath with activity and not feeling well. Patient denies any specific chest pain. Patient does have past medical history of coronary artery disease with coronary artery bypass grafting in 2000 and permanent pacemaker implantation 2014. 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 Upon arrival the ER patient's troponin elevated at 3.100 followed by troponin 3.680 patient started on heparin drip. Patient's cr eatinine also elevated at 2.11 and bun 30 this does appear higher than baseline. Patient's BNP elevated at 21,300. Patient does have +2 lower extremity edema which she does report his chronic for her. Patient states she does follow regularly with lung splitter. At this time cardiology, nephrology and pulmonary services will be consulted. Patient remains on heparin drip. IV Lasix has been ordered 40 every 8. Patient's blood pressure upon arrival 200. This has improved medications adjusted per cardiology. At this time patient is resting comfortably in bed. Possible plans for cardiac cath tomorrow. Patient denies any chest pain. Patient denies any shortness of breath. Patient denies nausea vomiting or diarrhea. Patient denies any urinary burning or frequency On 11/11/2019 patient is alert and oriented 3. Cardiology was recommending cardiac cath the patient has refused. Discussed case with Dr. Grande per cardiology will medically managed at this time. Blood pressure has improved hydralazine added per nephrology. Patient has been transitioned to oral Lasix 40 mg twice a day we'll continue to monitor kidney function over the next 24-48 hours. Patient denies any chest pain or shortness breath at this time. Patient denies nausea vomiting or diarrhea. Patient denies any urinary burning or frequency On 11/12/2019 patient's alert and oriented 3. Patient will continue to be medically managed for non-STEMI per cardiology. Creatinine increasing to 2.21 and bun 36. Nephrology are following. Patient has been transitioned to oral Lasix. Patient is having some increased wheezing pulmonary pump services are following. Patient remains on DuoNeb breathing treatments. Patient denies chest pain. Patient denies nausea vomiting or diarrhea. Patient denies any u rinary burning or frequency On 11/13/2019 patient was seen and examined on the telemetry floor she is alert and oriented 3 in no apparent distress there is no fever or chills no headache or dizziness no chest pain no shortness of breath no cough no nausea or vomiting no abdominal pain no diarrhea no burning with urination no frequency or urgency no hematuria On 11/14/2019 patient was seen and examined on the telemetry floor she is complaining of shortness of breath with activity she is complaining of cough otherwise she denies any complaints there is no fever or chills no headache or dizziness no chest pain no nausea or vomiting no abdominal pain no diarrhea no burning was urination no frequency or urgency and no hematuria patient has 3+ pitting edema bilaterally On 11/15/2019 patient is alert and oriented 3. Patient having some increased wheeziness. Patient has been started back on IV Lasix per nephrology. Patient's potassium elevated at 5.6 Kayexalate ordered recheck ordered. Patient also complaining of increase abdominal discomfort right upper quadrant. Will order abdominal ultrasound. At this time patient denies chest pain. Patient denies nausea vomiting or diarrhea. Patient denies any urinary burning or frequency Objective - Vital Signs Vital signs: Vital Signs Temp 98.1 F 11/15/19 07:57 Pulse 72 11/15/19 09:13 Resp 18 11/15/19 08:00 BP 143/65 11/15/19 07:57 Pulse Ox 98 11/15/19 08:58 Intake & Output 11/14/19 11/15/19 11/15/19 18:59 06:59 18:59 Intake Total 240 Output Total 1000 Balance 240 -1000 Weight 98.1 kg Intake: Oral 240 Output: Urine 1000 Other: Voiding Method Toilet Toilet - Exam Head normocephalic Neck supple Lungs diminished bilaterally Heart regular rate and rhythm S1-S2, no rub or gallop Abdomen is soft nontender nondistended positive bowel sounds no hepatos plenomegaly Extremities +2 lower extremity edema Neuro alert and orientated to 3 - Labs CBC & Chem 7: 11/15/19 06:23 11/15/19 06:23 Labs: Abnormal Lab Results - Last 24 Hours (Table) 11/14/19 11/14/19 11/14/19 Range/Units 11:38 16:50 20:31 RBC (3.80-5.40) m/uL Hgb (11.4-16.0) gm/dL Hct (34.0-46.0) % Sodium (137-145) mmol/L Potassium (3.5-5.1) mmol/L BUN (7-17) mg/dL Creatinine (0.52-1.04) mg/dL POC Glucose (mg/dL) 371 H 396 H 299 H (75-99) mg/dL Calcium (8.4-10.2) mg/dL Total Protein (6.3-8.2) g/dL Albumin (3.5-5.0) g/dL 11/15/19 11/15/19 Range/Units 06:23 06:23 RBC 3.13 L (3.80-5.40) m/uL Hgb 9.1 L (11.4-16.0) gm/dL Hct 28.7 L (34.0-46.0) % Sodium 134 L (137-145) mmol/L Potassium 5.6 H (3.5-5.1) mmol/L BUN 56 H (7-17) mg/dL Creatinine 2.72 H (0.52-1.04) mg/dL POC Glucose (mg/dL) (75-99) mg/dL Calcium 8.2 L (8.4-10.2) mg/dL Total Protein 5.0 L (6.3-8.2) g/dL Albumin 2.5 L (3.5-5.0) g/dL Assessment and Plan Assessment: 1. Non-ST elevated myocardial infarction. Troponins elevated at 3.1 and 3.681. Patient currently maintained on heparin drip cardiology services are following. Cardiology services were recommending cardiac cath but patient declined. At this time per cardiology services will medically manage. Imdur and Coreg added 2. Acute exacerbation of diastolic CHF. 2-D echo completed showing an EF of 50-55%. Patient currently maintained on IV Lasix. BNP elevated at 21,000. Patient has been placed back on IV Lasix per nephrology 3. Hypertensive urgency. Blood pressure upon arrival greater than 200 medications have been adjusted per cardiology will continue to monitor. Hydralazine has been added per nephrology services blood pressure has improved 4. Acute on chronic kidney disease initial creatinine elevated at 2.11 and bun 30 this does appear higher than baseline. Nephrology services have been consulted. Patient does reports she follows regularly with lung splitter 5. History of coronary artery disease with coronary artery bypass graft surgery 2000. Patient reports follows with aviation maintenance technician on [place] 6. History of permanent pacemaker placement 2014 7. Diabetes mellitus type 2. Home long-acting insulin resumed. Sliding scale coverage ordered 8. History of sleep apnea 9. History of COPD oxygen dependent. Patient was evaluated by pulmonary serv ices continue breathing treatment Symbicort added. Chest x-ray completed showing pleuroparenchymal changes most suggestive COPD with superimposed mild CHF or interstitial pneumonitis. Findings stable underlying pneumonia at the lung bases not excluded. Pulmonary services are following 10. Metabolic acidosis secondary to acute kidney injury. Sodium bicarb added per nephrology 11. Hyperkalemia. Potassium 5.6. Kayexalate will be ordered recheck ordered for 2 PM 12. Abdominal discomfort. Abdominal ultrasound will be ordered DVT prophylaxis heparin drip. GI prophylaxis Pepcid Cardiology, nephrology and pulmonary service is consulted I performed an examination of the patient and discussed their management with the Nurse Practitioner. I have reviewed the Nurse Practitioner's notes and agree with the documented findings and plan of care
--- NOTE | 2019-11-15 11:27 | P.PN ---
Subjective Progress Note Date: 11/15/19 This is a pleasant 79-year-old female patient with past medical history significant for CAD, status post two-vessel bypass grafting in 2010, chronic kidney disease, hypertension, permanent pacemaker implantation and chronic lower extremity edema. Initially presented with hypertension, acute ki dney injury and nonstemi. Patient was seen and examined this morning, denied any chest discomfort through the night last January. She is still complaining of some right upper quadrant tenderness on examination which she states that she's been experiencing for quite some time. Blood pressure this morning 142/60 with a heart rate in the 60s to 70s, 98% on 2 L of oxygen. White blood cell count 7.2, hemoglobin 9.1, platelet count 206. Sodium 134, potassium 5.6, BUN 56, creatinine 2.7. Objective - Vital Signs Vital signs: Vital Signs Temp 98.1 F 11/15/19 07:57 Pulse 72 11/15/19 09:13 Resp 18 11/15/19 08:00 BP 143/65 11/15/19 07:57 Pulse Ox 98 11/15/19 08:58 Intake & Output 11/14/19 11/15/19 11/15/19 18:59 06:59 18:59 Intake Total 240 Output Total 1000 Balance 240 -1000 Weight 98.1 kg Intake: Oral 240 Output: Urine 1000 Other: Voiding Method Toilet Toilet - Exam PHYSICAL EXAMINATION: HEENT: Head is atraumatic, normocephalic. Pupils equal, round. Neck is supple. There is no elevated jugular venous pressure. HEART EXAMINATION: Heart sounds regular, S1 and S2 with a systolic ejection murmur at the left sternal border. CHEST EXAMINATION: Lungs reveal faint extra wheezing throughout. No chest wall tenderness is noted on palpation or with deep breathing. ABDOMEN: Soft, nontender. Bowel sounds are heard. No organomegaly noted. EXTREMITIES: 2+ peripheral pulses with no evidence of peripheral edema and no calf tenderness noted. NEUROLOGIC patient is awake, alert and oriented x3. . - Labs CBC & Chem 7: 11/15/19 06:23 11/15/19 06:23 Labs: Abnormal Lab Results - Last 24 Hours (Table) 11/14/19 11/14/19 11/14/19 Range/Units 11:38 16:50 20:31 RBC (3.80-5.40) m/uL Hgb (11.4-16.0) gm/dL Hct (34.0-46.0) % Sodium (137-145) mmol/L Potassium (3.5-5.1) mmol/L BUN (7-17) mg/dL Creatinine (0.52-1.04) mg/dL POC Glucose (mg/dL) 371 H 396 H 299 H (75-99) mg/dL Calcium (8.4-10.2) mg/dL Total Protein (6.3-8.2) g/dL Albumin (3.5-5.0) g/dL 11/15/19 11/15/19 Range/Units 06:23 06:23 RBC 3.13 L (3.80-5.40) m/uL Hgb 9.1 L (11.4-16.0) gm/dL Hct 28.7 L (34.0-46.0) % Sodium 134 L (137-145) mmol/L Potassium 5.6 H (3.5-5.1) mmol/L BUN 56 H (7-17) mg/dL Creatinine 2.72 H (0.52-1.04) mg/dL POC Glucose (mg/dL) (75-99) mg/dL Calcium 8.2 L (8.4-10.2) mg/dL Total Protein 5.0 L (6.3-8.2) g/dL Albumin 2.5 L (3.5-5.0) g/dL Assessment and Plan Plan: Assessment: #1 non-ST elevation [place] with recurrent chest discomfort, has chosen to pursue medical management at this time #2 acute exacerbation of COPD #3 acute on chronic diastolic heart failure #4 acute kidney injury on chronic kidney disease #5 hypertension, poorly controlled #6 hyperlipidemia #7 history of CAD status post bypass grafting in 2010 #8 diabetes mellitus #9 status post pacemaker implantation #10 chronic nicotine dependence Plan From cardiology's perspective, we'll continue the patient on her current medications. She may be able to be discharged home from our standpoint to follow-up in the office post discharge. DNP note has been reviewed, I agree with a documented findings and plan of care. Patient was seen and examined.
[2019-11-15 12:06] LABS: Glucose,Whole Blood 118 mg/dL (75-99)
--- NOTE | 2019-11-15 13:07 | P.PN ---
Subjective Progress Note Date: 11/15/19 On 11/11/2019 patient seen in follow-up on selective care unit, she is calm and comfortable sitting up in the chair, no worsening dyspnea, no complaints of chest pain, she is on 2 L of oxygen with a pulse ox of 98%, afebrile, blood pressure still elevated at 193/75. Cardiology is on the case and managing the blood pressures. Patient has been diuresed and her IV Lasix has been transitioned to oral Lasix, patient is in -760 mL fluid balance. Chest x-ray today still shows COPD with superimposed mild CHF and interstitial prominence. Clinically patient is improving, on today's exam lung sounds reveal some minimal crackles at the bases, no rhonchi, no wheezing. Have been no fever or chills. Cardiology is following and planning on medical treatment at this time, she was offered heart catheterization however she declined and at this time with a concern for worsening renal function. On 11/15/2019 patient seen in follow-up on selective care unit, she is resting comfortably in bed, she is currently on 3 L of oxygen the pulse ox of 98%, blood pressures 140/67, patient is afebrile, she states she is still has some occasional wheezing, but overall her breathing has significantly improved, cristhian freeman remains on IV Lasix of 40 mg every 8 hours, and Zaroxolyn at 2-1/2 mg twice daily. Patient is in -760 mL fluid balance over the last 24 hours still has quite significant edema in bilateral lower extremities which shiny swollen legs and the patient states it is somewhat chronic for her. No episodes of chest pain since yesterday morning. Objective - Vital Signs Vital signs: Vital Signs Temp 98.3 F 11/15/19 12:00 Pulse 77 11/15/19 12:00 Resp 18 11/15/19 12:00 BP 140/67 11/15/19 12:00 Pulse Ox 98 11/15/19 12:00 Intake & Output 11/14/19 11/15/19 11/15/19 18:59 06:59 18:59 Intake Total 240 240 Output Total 1000 Balance 240 -1000 240 Weight 98.1 kg Intake: Oral 240 240 Output: Urine 1000 Other: Voiding Method Toilet Toilet - Exam GENERAL EXAM: Alert, very pleasant, 79-year-old white female, on 3 L of oxygen with a pulse ox of 95%, comfortable in no apparent distress. HEAD: Normocephalic/atraumatic. EYES: Normal reaction of pupils, equal size. Conjunctiva pink, sclera white. NOSE: Clear with pink turbinates. THROAT: No erythema or exudates. NECK: No masses, no JVD, no thyroid enlargement, no adenopathy. CHEST: No chest wall deformity. Symmetrical expansion. LUNGS: Equal air entry with and crackles at the bases, mild wheezing at bilateral upper airways CVS: Regular rate and rhythm, normal S1 and S2, no gallops, no murmurs, no rubs ABDOMEN: Soft, nontender. No hepatosplenomegaly, normal bowel sounds, no guarding or rigidity. EXTREMITIES: No clubbing, 1+ edema, patient does have history of chronic l ymphedema involving lower extremities no cyanosis, 2+ pulses and upper and lower extremities. MUSCULOSKELETAL: Muscle strength and tone normal. SPINE: No scoliosis or deformity SKIN: No rashes CENTRAL NERVOUS SYSTEM: Alert and oriented -3. No focal deficits, tone is normal in all 4 extremities. PSYCHIATRIC: Alert and oriented -3. Appropriate affect. Intact judgment and insight. - Labs CBC & Chem 7: 11/15/19 06:23 11/15/19 06:23 Labs: Abnormal Lab Results - Last 24 Hours (Table) 11/14/19 11/14/19 11/15/19 Range/Units 16:50 20:31 06:23 RBC (3.80-5.40) m/uL Hgb (11.4-16.0) gm/dL Hct (34.0-46.0) % Sodium 134 L (137-145) mmol/L Potassium 5.6 H (3.5-5.1) mmol/L BUN 56 H (7-17) mg/dL Creatinine 2.72 H (0.52-1.04) mg/dL POC Glucose (mg/dL) 396 H 299 H (75-99) mg/dL Calcium 8.2 L (8.4-10.2) mg/dL Total Protein 5.0 L (6.3-8.2) g/dL Albumin 2.5 L (3.5-5.0) g/dL 11/15/19 11/15/19 Range/Units 06:23 12:00 RBC 3.13 L (3.80-5.40) m/uL Hgb 9.1 L (11.4-16.0) gm/dL Hct 28.7 L (34.0-46.0) % Sodium (137-145) mmol/L Potassium (3.5-5.1) mmol/L BUN (7-17) mg/dL Creatinine (0.52-1.04) mg/dL POC Glucose (mg/dL) 118 H (75-99) mg/dL Calcium (8.4-10.2) mg/dL Total Protein (6.3-8.2) g/dL Albumin (3.5-5.0) g/dL Assessment and Plan Plan: Assessment: #1. Acute exacerbation of COPD #2. Acute non-ST elevated myocardial infarction #3. Hypertensive emergency, with pulmonary edema, and acute on chronic kidney failure #4. Acute exacerbation of diastolic CHF #5. Acute kidney injury #6. History of coronary artery disease status post bypass grafting 19 years ago #7. History of CHF with diastolic dysfunction, echocardiogram showed low normal EF of 50-55% moderate mitral regurgitation, trace tricuspid regurg, PA systolic of less than 35 mmHg, normal inferior vena cava with normal inspiratory collapse an estimated right atrial pressure of 5 mmHg #8. Diabetes mellitus #9. Chronic smoker, carries 50 years of smoking of less than a pack a day, and more recently started vaping in an attempt to quit smoking #10. Oxygen dependent COPD, not consistently compliant with oxygen #11. Hypertension #12. Hyperlipidemia #13. Permanent pacemaker insertion in 2015 #14. Chronic kidney disease, stage III #15. Obstructive sleep apnea on BiPAP machine #16. Obesity, with history of lap band Plan: Patient is diuresing, maintaining negative fluid balance, no episodes of chest pain since yesterday, vital signs are stable, no fever or chills, continue breathing treatments. Increase activity as tolerated. From pulmonary perspective patient can be considered for discharge home if cleared by cardiology, and nephrology. I performed a history & physical examination of the patient and discussed their management with my nurse practitioner, Marylu Lovelace. I reviewed the nurse practitioner's note and agree with the documented findings and plan of care. Lung sounds are positive for diminished breath sounds with expiratory wheezes. The findings and the impression was discussed with the patient. I attest to the documentation by the nurse practitioner. Time with Patient: Less than 30
--- NOTE | 2019-11-15 14:56 | US ---
EXAMINATION TYPE: US abdomen complete DATE OF EXAM: 11/15/2019 COMPARISON: US renal dated 11/13/2019 CLINICAL HISTORY: abdominal pain. Generalized ABD pain EXAM MEASUREMENTS: Liver Length: 19.2 cm Gallbladder Wall: 0.2 cm CBD: 0.9 cm Spleen: 9.2 cm Right Kidney: 11.2 x 3.9 x 4.7 cm Left Kidney: 9.5 x 5.6 x 4.6 cm There is no ascites. Pancreas: wnl, tail obscured by overlying bowel gas Liver: Enlarged, heterogeneous Gallbladder: wnl Evidence for sonographic Locke's sign: No CBD: ?dilated for pt's age vs. upper limits of normal Spleen: wnl Right Kidney: No evidence of hydro, possible cyst upper pole= 0.8 cm Left Kidney: No evidence of hydro, difficult to visualize Upper IVC: wnl Abd Aorta: atherosclerotic renae without evident aneurysm Kidneys show normal cortical medullary differentiation. IMPRESSION: Hepatomegaly, correlate for possible hepatocellular disease, hepatic steatosis. Common bi le duct at the upper limit of normal or mildly dilated, some limitations the exam
--- NOTE | 2019-11-15 15:42 | PN ---
PROGRESS NOTE Patient is seen for followup for chronic kidney disease and acute kidney injury. She is maintained on IV Lasix secondary to significant edema of the lower extremities. Zaroxolyn was also added. Patient was on steroids, which are now discontinued as well. The patient denies any shortness of breath, nausea, vomiting. She has had good urine output and has been voiding frequently. PHYSICAL EXAMINATION: This afternoon blood pressure 140/67, heart rate 77 per minute, patient is afebrile. Examination of the heart S1, S2. Examination of the lungs, bilateral breath sounds are heard. Abdomen is soft, nontender. Examination lower extremities shows edema 2+ bilaterally. SANITATION ENGINEER exam grossly intact. LABS: Show sodium 134, potassium 5.4, BUN 56 serum creatinine 2.72, CO2 is 26, chloride is 104, hemoglobin 9.1 g/dL. ASSESSMENT: 1. Chronic kidney disease stage III. Baseline creatinine 1.82 mg/dL secondary to nephrosclerosis. 2. Acute kidney injury, cardiorenal. 3. Diastolic congestive heart failure. 4. Hypertension with chronic kidney disease. 5. Volume overload. 6. Hyperkalemia, currently improved. Expect further improvement with continued loop diuretic and thiazide diuretic usage. PLAN: Continue with IV Lasix for one more day. Continue with the metolazone. Expect improvement in volume status now that the IV Solu-Medrol has been discontinued. I will also DC the sodium bicarb for now. MMODL / IJN: [id number] /
[2019-11-15 17:25] LABS: Glucose,Whole Blood 186 mg/dL (75-99)
[2019-11-15 21:02] LABS: Glucose,Whole Blood 231 mg/dL (75-99)
[2019-11-15] MEDS: TEMAZEPAM 15 MG CAP PO SCH (21:37)
[2019-11-15] MEDS: INSULIN DETEMIR (LEVEMIR) 100 UNIT/ML SYR SQ SCH (21:37)
[2019-11-15] MEDS: ATORVASTATIN 40 MG TAB PO SCH (21:48)
[2019-11-16] MEDS: FUROSEMIDE 10 MG/ML 4 ML VIAL IV SCH ×2 (06:03→12:14)
[2019-11-16] MEDS: CARVEDILOL 6.25 MG TAB PO SCH ×2 (06:04→19:33)
[2019-11-16 06:35] LABS: Glucose,Whole Blood 83 mg/dL (75-99)
[2019-11-16] MEDS: INSULIN ASPART (NovoLOG) 100 UNIT/ML VIAL SQ SCH ×4 (06:49→22:10)
[2019-11-16 07:24] LABS: Albumin 2.9 g/dL (3.5-5.0); Calcium 8.3 mg/dL (8.4-10.2); Potassium 4.6 mmol/L (3.5-5.1); Total Bilirubin 0.3 mg/dL (0.2-1.3); Total Protein 5.5 g/dL (6.3-8.2)
[2019-11-16 07:35] LABS: HCT 31.5 % (34.0-46.0); MCH 29.1 pg (25.0-35.0); MCHC 31.9 g/dL (31.0-37.0); MCV 91.4 fL (80.0-100.0); Mean Platelet Volume 8.8; Platelet Count 236 k/uL (150-450); RBC 3.44 m/uL (3.80-5.40); RDW 13.7 % (11.5-15.5); WBC 6.4 k/uL (3.8-10.6)
[2019-11-16 08:12] LABS: Eosinophils # (M) 0.13 k/uL (0-0.7); Lymphocytes # (M) 2.62 k/uL (1.0-4.8); Monocytes # (M) 0.51 k/uL (0-1.0); Neutrophils # (M) 3.14 k/uL (1.3-7.7); Neutrophils % (M) 49 %; Nucleated Red Blood Cells 0 /100 WBC (0-0); Total Cells Counted 100
[2019-11-16] MEDS: IPRATROPIUM-ALBUTEROL 3 ML NEB INHALATION SCH ×4 (08:12→19:20)
[2019-11-16] MEDS: SYMBICORT 160-4.5 MCG INHALER INHALATION SCH ×2 (08:12→19:20)
[2019-11-16] MEDS: HEPARIN SODIUM,PORCINE 5,000 UNIT/ML 1 ML VIAL SQ SCH ×2 (08:45→22:09)
[2019-11-16] MEDS: hydrALAZINE HCL 25 MG TAB PO SCH ×3 (08:45→22:24)
[2019-11-16] MEDS: FAMOTIDINE 20 MG TAB PO SCH (08:45)
[2019-11-16] MEDS: ISOSORBIDE MONONITRATE ER 60 MG TAB.ER.24H PO SCH ×2 (08:45→22:09)
[2019-11-16] MEDS: ASPIRIN 81 MG PO SCH (08:45)
[2019-11-16] MEDS: CLOPIDOGREL 75 MG TAB PO SCH (08:45)
--- NOTE | 2019-11-16 11:04 | P.PN ---
Subjective Progress Note Date: 11/16/19 This is a 79-year-old female patient of Dr. Ward. Patient reports that over the past few days she has felt increasingly short of breath with activity and not feeling well. Patient denies any specific chest pain. Patient does have past medical history of coronary artery disease with coronary artery bypass grafting in 2000 and permanent pacemaker implantation 2014. Patient reports she follows with licensing engineer out of [place] additional medical history includes COPD she is oxygen dependent at home, sleep apnea, diabetes mellitus and chronic kidney disease. Upon arrival the ER patient's troponin elevated at 3.100 followed by troponin 3.680 patient started on heparin drip. Patient's cr eatinine also elevated at 2.11 and bun 30 this does appear higher than baseline. Patient's BNP elevated at 21,300. Patient does have +2 lower extremity edema which she does report his chronic for her. Patient states she does follow regularly with caption writer. At this time cardiology, nephrology and pulmonary services will be consulted. Patient remains on heparin drip. IV Lasix has been ordered 40 every 8. Patient's blood pressure upon arrival 200. This has improved medications adjusted per cardiology. At this time patient is resting comfortably in bed. Possible plans for cardiac cath tomorrow. Patient denies any chest pain. Patient denies any shortness of breath. Patient denies nausea vomiting or diarrhea. Patient denies any urinary burning or frequency On 11/11/2019 patient is alert and oriented 3. Cardiology was recommending cardiac cath the patient has refused. Discussed case with Dr. Grande per cardiology will medically managed at this time. Blood pressure has improved hydralazine added per nephrology. Patient has been transitioned to oral Lasix 40 mg twice a day we'll continue to monitor kidney function over the next 24-48 hours. Patient denies any chest pain or shortness breath at this time. Patient denies nausea vomiting or diarrhea. Patient denies any urinary burning or frequency On 11/12/2019 patient's alert and oriented 3. Patient will continue to be medically managed for non-STEMI per cardiology. Creatinine increasing to 2.21 and bun 36. Nephrology are following. Patient has been transitioned to oral Lasix. Patient is having some increased wheezing pulmonary pump services are following. Patient remains on DuoNeb breathing treatments. Patient denies chest pain. Patient denies nausea vomiting or diarrhea. Patient denies any u rinary burning or frequency On 11/13/2019 patient was seen and examined on the telemetry floor she is alert and oriented 3 in no apparent distress there is no fever or chills no headache or dizziness no chest pain no shortness of breath no cough no nausea or vomiting no abdominal pain no diarrhea no burning with urination no frequency or urgency no hematuria On 11/14/2019 patient was seen and examined on the telemetry floor she is complaining of shortness of breath with activity she is complaining of cough otherwise she denies any complaints there is no fever or chills no headache or dizziness no chest pain no nausea or vomiting no abdominal pain no diarrhea no burning was urination no frequency or urgency and no hematuria patient has 3+ pitting edema bilaterally On 11/15/2019 patient is alert and oriented 3. Patient having some increased wheeziness. Patient has been started back on IV Lasix per nephrology. Patient's potassium elevated at 5.6 Kayexalate ordered recheck ordered. Patient also complaining of increase abdominal discomfort right upper quadrant. Will order abdominal ultrasound. At this time patient denies chest pain. Patient denies nausea vomiting or diarrhea. Patient denies any urinary burning or frequency On 11/16/2019 patient is alert and oriented 3 patient denies any chest pain or shortness of breath. Patient's creatinine increasing to 2.98 and bun 69. Per nephrology possible plans to transition to oral Lasix. GI service is consulted abdominal ultrasound showing increased, and bile duct dilation. Patient denies any nausea vomiting at this time. Still having some abdominal tenderness. Patient denies any urinary burning or frequency Objective - Vital Signs Vital signs: Vital Signs Temp 97.4 F L 11/16/19 08:00 Pulse 68 11/16/19 08:00 Resp 18 11/16/19 08:00 BP 131/69 11/16/19 08:00 Pulse Ox 98 11/16/19 08:00 Intake & Output 11/15/19 11/16/19 11/16/19 18:59 06:59 18:59 Intake Total 480 540 240 Output Total 300 2300 900 Balance 180 -7950 660 Intake: Oral 480 540 240 Output: Urine 300 2300 900 Other: Voiding Method Toilet # Voids 1 - Exam Head normocephalic Neck supple Lungs diminished bilaterally Heart regular rate and rhythm S1-S2, no rub or gallop Abdomen is soft nontender nondistended positive bowel sounds no hepatosplenomegaly Extremities +2 lower extremity edema Neuro alert and orientated to 3 - Labs CBC & Chem 7: 11/16/19 06:33 11/16/19 06:33 Labs: Abnormal Lab Results - Last 24 Hours (Table) 11/15/19 11/15/19 11/15/19 Range/Units 12:00 14:02 17:04 RBC (3.80-5.40) m/uL Hgb (11.4-16.0) gm/dL Hct (34.0-46.0) % Sodium (137-145) mmol/L Potassium 5.4 H (3.5-5.1) mmol/L BUN (7-17) mg/dL Creatinine (0.52-1.04) mg/dL Glucose (74-99) mg/dL POC Glucose (mg/dL) 118 H 186 H (75-99) mg/dL Calcium (8.4-10.2) mg/dL AST (14-36) U/L Total Protein (6.3-8.2) g/dL Albumin (3.5-5.0) g/dL 11/15/19 11/16/19 11/16/19 Range/Units 21:00 06:33 06:33 RBC 3.44 L (3.80-5.40) m/uL Hgb 10.0 L (11.4-16.0) gm/dL Hct 31.5 L (34.0-46.0) % Sodium 136 L (137-145) mmol/L Potassium (3.5-5.1) mmol/L BUN 69 H (7-17) mg/dL Creatinine 2.98 H (0.52-1.04) mg/dL Glucose 73 L (74-99) mg/dL POC Glucose (mg/dL) 231 H (75-99) mg/dL Calcium 8.3 L (8.4-10.2) mg/dL AST 37 H (14-36) U/L Total Protein 5.5 L (6.3-8.2) g/dL Albumin 2.9 L (3.5-5.0) g/dL Assessment and Plan Assessment: 1. Non-ST elevated myocardial infarction. Troponins elevated at 3.1 and 3.681. Patient currently maintained on heparin drip cardiology services are following. Cardiology services were recommending cardiac cath but patient declined. At this time per cardiology services will medically manage. Imdur and Coreg added 2. Acute exacerbation of diastolic CHF. 2-D echo completed showing an EF of 50-55%. Patient currently maintained on IV Lasix. BNP elevated at 21,000. Patient has been placed back on IV Lasix per nephrology 3. Hypertensive urgency. Blood pressure upon arrival greater than 200 medications have been adjusted per cardiology will continue to monitor. Hydralazine has been added per nephrology services blood pressure has improved 4. Acute on chronic kidney disease initial creatinine elevated at 2.11 and bun 30 this does appear higher than baseline. Nephrology services have been consulted. Patient does reports she follows regularly with caption writer. Patient remains on IV Lasix per nephrology possible plans to transition to oral today 5. History of coronary artery disease with coronary artery bypass graft surgery 2000. Patient reports follows with licensing engineer on [place] 6. History of permanent pacemaker placement 2014 7. Diabetes mellitus type 2. Home long-acting insulin resumed. Sliding scale coverage ordered 8. History of sleep apnea 9. History of COPD oxygen dependent. Patient was evaluated by pulmonary services continue breathing treatment Symbicort added. Chest x-ray completed showing pleuroparenchymal changes most suggestive COPD with superimposed mild CHF or interstitial pneumonitis. Findings stable underlying pneumonia at the lung bases not excluded. Pulmonary services are following 10. Metabolic acidosis secondary to acute kidney injury. Sodium bicarb added per nephrology. Sodium bicarb has been DC'd per nephrology 11. Hyperkalemia. Potassium 5.6. Kayexalate will be ordered recheck ordered for 2 PM. Resolved 12. Abdominal discomfort. Abdominal ultrasound completed showing hepatomeg carlitos, correlate for possible hepatocellular disease hepatic steatosis, and bile duct duct at the upper limit of normal or mildly dilated. GI services will be consulted DVT prophylaxis heparin drip. GI prophylaxis Pepcid Cardiology, nephrology and pulmonary service is consulted I performed an examination of the patient and discussed their management with the Nurse Practitioner. I have reviewed the Nurse Practitioner's notes and agree with the documented findings and plan of care
--- NOTE | 2019-11-16 12:03 | P.PN ---
Subjective Progress Note Date: 11/16/19 This is a pleasant 79-year-old female patient with past medical history significant for CAD, status post two-vessel bypass grafting in 2010, chronic kidney disease, hypertension, permanent pacemaker implantation and chronic lower extremity edema. Initially presented with hypertension, acute ki dney injury and nonstemi. Patient was seen and examined this morning, denied any chest discomfort through the night last January. She is still complaining of some right upper quadrant tenderness on examination which she states that she's been experiencing for quite some time. Blood pressure this morning 142/60 with a heart rate in the 60s to 70s, 98% on 2 L of oxygen. White blood cell count 7.2, hemoglobin 9.1, platelet count 206. Sodium 134, potassium 5.6, BUN 56, creatinine 2.7. 11/16/2019 Patient was seen and examined this morning, she had just returned from a walk in the hallway, mildly short of breath but otherwise feeling well. Blood pressure 130/60 with a heart rate in the 60s, 98% on BiPAP. White blood cell count 6.4, hemoglobin 10.0, platelet count 236. Sodium 136, potassium 4.6, BUN 29, creatinine 2.9. Objective - Vital Signs Vital signs: Vital Signs Temp 97.4 F L 11/16/19 08:00 Pulse 68 11/16/19 08:00 Resp 18 11/16/19 08:00 BP 131/69 11/16/19 08:00 Pulse Ox 98 11/16/19 08:00 Intake & Output 11/15/19 11/16/19 11/16/19 18:59 06:59 18:59 Intake Total 480 540 240 Output Total 300 2300 900 Balance 180 -1760 -660 Intake: Oral 480 540 240 Output: Urine 300 2300 900 Other: Voiding Method Toilet # Voids 1 - Exam PHYSICAL EXAMINATION: HEENT: Head is atraumatic, normocephalic. Pupils equal, round. Neck is supple. There is no elevated jugular venous pressure. HEART EXAMINATION: Heart sounds regular, S1 and S2 with a systolic ejection murmur at the left sternal border. CHEST EXAMINATION: Lungs reveal faint extra wheezing throughout. No chest wall tenderness is noted on palpation or with deep breathing. ABDOMEN: Soft, nontender. Bowel sounds are heard. No organomegaly noted. EXTREMITIES: 2+ peripheral pulses with 1+ evidence of peripheral edema NEUROLOGIC patient is awake, alert and oriented x3. . - Labs CBC & Chem 7: 11/16/19 06:33 11/16/19 06:33 Labs: Abnormal Lab Results - Last 24 Hours (Table) 11/15/19 11/15/19 11/15/19 Range/Units 12:00 14:02 17:04 RBC (3.80-5.40) m/uL Hgb (11.4-16.0) gm/dL Hct (34.0-46.0) % Sodium (137-145) mmol/L Potassium 5.4 H (3.5-5.1) mmol/L BUN (7-17) mg/dL Creatinine (0.52-1.04) mg/dL Glucose (74-99) mg/dL POC Glucose (mg/dL) 118 H 186 H (75-99) mg/dL Calcium (8.4-10.2) mg/dL AST (14-36) U/L Total Protein (6.3-8.2) g/dL Albumin (3.5-5.0) g/dL 11/15/19 11/16/19 11/16/19 Range/Units 21:00 06:33 06:33 RBC 3.44 L (3.80-5.40) m/uL Hgb 10.0 L (11.4-16.0) gm/dL Hct 31.5 L (34.0-46.0) % Sodium 136 L (137-145) mmol/L Potassium (3.5-5.1) mmol/L BUN 69 H (7-17) mg/dL Creatinine 2.98 H (0.52-1.04) mg/dL Glucose 73 L (74-99) mg/dL POC Glucose (mg/dL) 231 H (75-99) mg/dL Calcium 8.3 L (8.4-10.2) mg/dL AST 37 H (14-36) U/L Total Protein 5.5 L (6.3-8.2) g/dL Albumin 2.9 L (3.5-5.0) g/dL Assessment and Plan Plan: Assessment: #1 non-ST elevation OH with recurrent chest discomfort, has chosen to pursue me dical management at this time #2 acute exacerbation of COPD #3 acute on chronic diastolic heart failure #4 acute kidney injury on chronic kidney disease #5 hypertension, poorly controlled #6 hyperlipidemia #7 history of CAD status post bypass grafting in 2010 #8 diabetes mellitus #9 status post pacemaker implantation #10 chronic nicotine dependence Plan From cardiology's perspective, we'll continue the patient on her current medications. Diuretic management per nephrology. DNP note has been reviewed, I agree with a documented findings and plan of care. Patient was seen and examined.
[2019-11-16 12:08] LABS: Glucose,Whole Blood 132 mg/dL (75-99)
[2019-11-16] MEDS: METOLAZONE 2.5 MG TAB PO SCH ×2 (12:12→22:09)
[2019-11-16 14:21] VITALS: BMI 34.9
--- NOTE | 2019-11-16 15:50 | PN ---
PROGRESS NOTE Patient is seen for followup for acute kidney injury. Her renal function has been slowly worsening. She is maintained on IV Lasix for significant lower extremity edema. Creatinine is up to 2.9. Her baseline is about 1.7 to 1.8 mg/dL. The patient is also maintained on a small dose of zaroxolyn. She states she has had good urine output. Blood pressure is not low. PHYSICAL EXAMINATION: On examination today, blood pressure is 146/72, heart rate is 73 per minute. The patient is afebrile. Examination of the heart, S1, S2. Examination of the lungs, bilateral breath sounds are heard. No crackles or wheezing is heard. Abdomen is soft, nontender. Examination lower extremities shows edema 3+ bilaterally. PLASTIC CARD GRADER CARDROOM exam grossly intact. LABS: Labs show sodium 136, potassium 4.6, chloride 100, CO2 is 27, BUN is 69, creatinine is 2.98, albumin 2.9, hemoglobin 10.0 g/dL. ASSESSMENT: 1. Acute kidney injury, mainly cardiorenal; no evidence of obstruction. Urinalysis is fairly benign with proteinuria. I will change the IV Lasix to p.o. long-acting loop diuretic in the form of Demadex. Continue with the metolazone, as well, for now. The patient does have underlying proteinuria, which needs to be quantified, most likely underlying diuretic nephropathy. If she has nephrotic-range proteinuria, we should consider a kidney biopsy down the road. 2. Chronic kidney disease, most likely secondary to diabetic nephropathy; rule out any other underlying ___. We will quantify the proteinuria. 3. Preserved ejection fraction at 50-55% with normal right ventricular pressures. PLAN: Switch to p.o. Demadex and follow up as an outpatient for CKD. Consider kidney biopsy if renal function does not improve. MMODL / IJN: [id number] /
[2019-11-16 17:08] LABS: Glucose,Whole Blood 185 mg/dL (75-99)
[2019-11-16 20:26] LABS: Glucose,Whole Blood 281 mg/dL (75-99)
[2019-11-16] MEDS: INSULIN DETEMIR (LEVEMIR) 100 UNIT/ML SYR SQ SCH (22:10)
[2019-11-16] MEDS: ATORVASTATIN 40 MG TAB PO SCH (22:10)
[2019-11-16] MEDS: TEMAZEPAM 15 MG CAP PO SCH (22:10)
[2019-11-16] MEDS: TORSEMIDE 20 MG TAB PO SCH (22:24)
--- NOTE | 2019-11-16 22:47 | CONS ---
CONSULTATION DATE OF DICTATION: 11/16/2019 REASON FOR CONSULTATION: Dilated CBD. HISTORY OF PRESENT ILLNESS: The patient is a 79-year-old pleasant white female who was admitted to the hospital with shortness of breath and abdominal pain. She has been in the hospital for the last 6 days' duration. She has a history of underlying coronary artery disease and CABG done in 2000 as well as permanent pacemaker implantation in 2014. She is being followed by Cardiology. While in the hospital she has been complaining of some lower abdominal pain, mostly in the right lower quadrant area, and she feels it is musculoskeletal in etiology. As a part of workup she had an ultrasound of the abdomen done yesterday that showed dilated common bile duct and hence we are consulted in regards to this issue. The patient denies any epigastric or right upper quadrant abdominal pain. She reports no nausea or vomiting. No recent weight loss. No fever, chills, night sweats. The ultrasound of the abdomen did show gallbladder wall normal and CBD dilated at 9 mm in diameter, but no obvious gallstones identified. PAST MEDICAL HISTORY: Significant for diabetes mellitus, hypertension, hyperlipidemia, hypercholesterolemia. MEDICATIONS: Medications at home include Ventolin, Levemir, Humalog, Cozaar, Zocor and temazepam. SOCIAL HISTORY: No smoking or alcohol use. FAMILY HISTORY: Unremarkable. PAST SURGICAL HISTORY: CABG done in 2000, pacemaker implantation in 2014. History of knee arthroscopy, bilateral cataract surgery, partial thyroidectomy. ALLERGIES: BACTRIM. REVIEW OF SYSTEMS: CARDIOPULMONARY: No chest pain or shortness of breath. GENITOURINARY: No dysuria or hematuria. MUSCULOSKELETAL: Unremarkable. SKIN: Unremarkable. ENDOCRINE: Unremarkable. PSYCHIATRIC: Unremarkable. NEUROLOGY: Unremarkable. ENT/VISION: Unremarkable. CONSTITUTIONAL: No recent weight loss. No fever, chills, night sweats. PHYSICAL EXAMINATION: Blood pressure 146/72, pulse rate 73, temperature . HEENT examination unremarkable. Conjunctivae pink. Sclerae anicteric. Oral cavity no lesions. NECK: No JVD or lymph node enlargement. CHEST: Clear to auscultation. HEART: Regular rate and rhythm. ABDOMEN: Soft. Bowel sounds are positive. There was mild tenderness in the right lower quadrant area. EXTREMITIES: No pedal edema. SKIN: No rashes. NEUROLOGIC: Alert and oriented x3. No focal deficits. LABS: WBC 6.4, hemoglobin 10, platelets normal. Basic metabolic panel showed a BUN of 69, creatinine 2.98. ALT, AST, T-bilirubin and alkaline phosphatase are within normal limits. Albumin 2.9. IMPRESSION: 1. This is a lady who had some vague right lower quadrant abdominal pain which appears to be musculoskeletal in etiology, but she had an ultrasound of the abdomen done to evaluate this and was noted to have a dilated common bile duct at 0.9 cm in diameter. No gallstones noted. No gallbladder wall thickening noted. Serum transaminases are within normal limits. At this time it appears we are dealing with nonspecific dilation of the common bile duct. Doubt we are dealing with any extrahepatic biliary pathology. 2. Congestive heart failure, resolved. 3. History of coronary artery disease, status post coronary artery bypass grafting in 2000. Cardiology is following the patient closely. 4. Chronic kidney disease with elevated BUN and creatinine. RECOMMENDATIONS: I had a lengthy discussion with the patient regarding the dilated common bile duct. Since she is asymptomatic at this time and with normal serum transaminases, I would not pursue any further. Ideally it would have been better to obtain an MRCP, but because of the pacemaker, this is contraindicated. CT scan with IV contrast is contraindicated because of ongoing chronic kidney disease. Hence for now we will continue to monitor her labs, and in the future we will consider an endoscopic workup if needed. Thank you for this consultation. ROML / SPENCERN: [id number] /
[2019-11-17 05:03] VITALS: RESP 20
[2019-11-17 06:11] LABS: Glucose,Whole Blood 95 mg/dL (75-99)
[2019-11-17] MEDS: INSULIN ASPART (NovoLOG) 100 UNIT/ML VIAL SQ SCH ×2 (06:20→11:52)
[2019-11-17] MEDS: CARVEDILOL 6.25 MG TAB PO SCH (06:30)
[2019-11-17 06:44] LABS: Albumin 2.4 g/dL (3.5-5.0); Calcium 7.7 mg/dL (8.4-10.2); Potassium 4.2 mmol/L (3.5-5.1); Total Bilirubin 0.3 mg/dL (0.2-1.3); Total Protein 4.7 g/dL (6.3-8.2)
[2019-11-17 06:55] LABS: HCT 27.2 % (34.0-46.0); HGB 8.7 gm/dL (11.4-16.0); MCH 28.8 pg (25.0-35.0); MCHC 31.9 g/dL (31.0-37.0); MCV 90.2 fL (80.0-100.0); Platelet Count 196 k/uL (150-450); RBC 3.01 m/uL (3.80-5.40); RDW 13.5 % (11.5-15.5); WBC 5.6 k/uL (3.8-10.6)
[2019-11-17 07:15] LABS: Eosinophils # (M) 0.39 k/uL (0-0.7); Lymphocytes # (M) 1.68 k/uL (1.0-4.8); Monocytes # (M) 0.39 k/uL (0-1.0); Neutrophils # (M) 3.14 k/uL (1.3-7.7); Neutrophils % (M) 56 %; Nucleated Red Blood Cells 0 /100 WBC (0-0); Total Cells Counted 100
[2019-11-17] MEDS: SYMBICORT 160-4.5 MCG INHALER INHALATION SCH (08:48)
[2019-11-17] MEDS: IPRATROPIUM-ALBUTEROL 3 ML NEB INHALATION SCH ×3 (08:48→15:11)
[2019-11-17] MEDS: TORSEMIDE 20 MG TAB PO SCH (09:49)
[2019-11-17] MEDS: ASPIRIN 81 MG PO SCH (09:49)
[2019-11-17] MEDS: FAMOTIDINE 20 MG TAB PO SCH (09:49)
[2019-11-17] MEDS: CLOPIDOGREL 75 MG TAB PO SCH (09:49)
[2019-11-17] MEDS: ISOSORBIDE MONONITRATE ER 60 MG TAB.ER.24H PO SCH (09:50)
[2019-11-17] MEDS: HEPARIN SODIUM,PORCINE 5,000 UNIT/ML 1 ML VIAL SQ SCH (09:50)
[2019-11-17] MEDS: METOLAZONE 2.5 MG TAB PO SCH (09:50)
[2019-11-17] MEDS: hydrALAZINE HCL 25 MG TAB PO SCH (09:50)
[2019-11-17 10:25] VITALS: TEMP 97.5
[2019-11-17 11:36] LABS: Glucose,Whole Blood 242 mg/dL (75-99)
[2019-11-17 12:34] VITALS: BP 140/65; PULSE 65
--- NOTE | 2019-11-17 13:00 | P.DS ---
Providers Date of admission: 11/10/19 00:48 Expected date of discharge: 11/17/19 Attending physician: Lona Arias Consults: 11/10/19 00:46 Consult Physician Routine Consulting Provider: [facility] Consult Reason/Comments: NSTEMI, CHF Do you want consulting provider notified?: Yes, Notify in am 11/10/19 07:53 Consult Physician Routine Consulting Provider: Nancy Roland Consult Reason/Comments: ckd Do you want consulting provider notified?: Yes 11/10/19 10:28 Consult Physician Routine Consulting Provider: Deondre Ch Consult Reason/Comments: SOB, COPD Do you want consulting provider notified?: Yes 11/14/19 13:50 Consult Physician Routine Consulting Provider: Shandra Noble Consult Reason/Comments: chest pain Do you want consulting provider notified?: Already Contacted 11/16/19 11:00 Consult Physician Routine Consulting Provider: Elena Martines Consult Reason/Comments: Common bile duct dilation with abdominal discomfort Do you want consulting provider notified?: Yes Primary care physician: Carissa Ward Hospital Course: Discharge diagnosis 1. Non-ST elevated myocardial infarction. Troponins elevated at 3.1 and 3.681. Patient currently maintained on heparin drip cardiology services are following. Cardiology services were recommending cardiac cath but patient declined. At this time per cardiology services will medically manage. Plavix, Imdur and Coreg added patient has been cleared for discharge from cardiology services. Patient to follow-up with her rice milling supervisor 2. Acute exacerbation of diastolic CHF. 2-D echo completed showing an EF of 50-55%. Patient currently maintained on IV Lasix. BNP elevated at 21,000. Patient has been placed back on IV Lasix per nephrology 3. Hypertensive emergency. Blood pressure upon arrival greater than 200 medications have been adjusted per cardiology will continue to monitor. Hydralazine has been added per nephrology services blood pressure has improvedPatient will be DC'd on hydralazine per nephrology recommendation . Cozaar DC'd due to acute kidney injury and Coreg added per cardiology 4. Acute on chronic kidney disease initial creatinine elevated at 2.11 and bun 30 this does appear higher than baseline. Nephrology services have been consulted. Patient does reports she follows regularly with sorting supervisor. Patient remains on IV Lasix per nephrology possible plans to transition to oral today. Patient has been transitioned to oral Demadex and Zaroxolyn. Discussed case with Dr. Eduardo per nephrology. Creatinine trending down to 2.86 and bun 76. Patient has been cleared for discharge from nephrology standpoint. Will order repeat CMP in 2 days and patient to follow-up with nephrology services for further management 5. History of coronary artery disease with coronary artery bypass graft surgery 2000. Patient reports follows with rice milling supervisor on [place] 6. History of permanent pacemaker placement 2014 7. Diabetes mellitus type 2. Home long-acting insulin resumed. Sliding scale coverage ordered 8. History of sleep apnea 9. History of COPD oxygen dependent. Patient was evaluated by pulmonary serv ices continue breathing treatment Symbicort added. Chest x-ray completed showing pleuroparenchymal changes most suggestive COPD with superimposed mild CHF or interstitial pneumonitis. Findings stable underlying pneumonia at the lung bases not excluded. Pulmonary services are following 10. Metabolic acidosis secondary to acute kidney injury. Sodium bicarb added per nephrology. Sodium bicarb has been DC'd per nephrology 11. Hyperkalemia. Potassium 5.6. Kayexalate will be ordered recheck ordered for 2 PM. Resolved 12. Abdominal discomfort. Abdominal ultrasound completed showing he patomegaly, correlate for possible hepatocellular disease hepatic steatosis, and bile duct duct at the upper limit of normal or mildly dilated. patient was evaluated by GI services no further workup at this time. Patient on a candidate for MRCP due to pacemaker placement or CT with IV contrast due to chronic kidney disease. She to follow-up outpatient with GI services consideration of endoscopic workup if needed outpatient Hospital course This is a 79-year-old female patient of Dr. Ward. Patient reports that over the past few days she has felt increasingly short of breath with activity and not feeling well. Patient denies any specific chest pain. Patient does have past medical history of coronary artery disease with coronary artery bypass grafting in 2000 and permanent pacemaker implantation 2014. Patient reports she follows with rice milling supervisor out of [place] additional medical history includes COPD she is oxygen dependent at home, sleep apnea, diabetes mellitus and chronic kidney disease. Upon arrival the ER patient's troponin elevated at 3.100 followed by troponin 3.680 patient started on heparin drip. Patient's creatinine also elevated at 2.11 and bun 30 this does appear higher than baseline. Patient's BNP elevated at 21,300. Patient does have +2 lower extremity edema which she does report his chronic for her. Patient states she does follow regularly with sorting supervisor. At this time cardiology, nephrology and pulmonary services will be consulted. Patient remains on heparin drip. IV Lasix has been ordered 40 every 8. Patient's blood pressure upon arrival 200. This has improved medications adjusted per cardiology. At this time patient is resting comfortably in bed. Possible plans for cardiac cath tomorrow. Patient denies any chest pain. Patient denies any shortness of breath. Patient denies nausea vomiting or diarrhea. Patient denies any urinary burning or frequency On 11/11/2019 patient is alert and oriented 3. Cardiology was recommending cardiac cath the patient has refused. Discussed case with Dr. Grande per cardiology will medically managed at this time. Blood pressure has improved hydralazine added per nephrology. Patient has been transitioned to oral Lasix 40 mg twice a day we'll continue to monitor kidney function over the next 24-48 hours. Patient denies any chest pain or shortness breath at this time. Patient denies nausea vomiting or diarrhea. Patient denies any urinary burning or frequency On 11/12/2019 patient's alert and oriented 3. Patient will continue to be medically managed for non-STEMI per cardiology. Creatinine increasing to 2.21 and bun 36. Nephrology are following. Patient has been transitioned to oral Lasix. Patient is having some increased wheezing pulmonary pump services are following. Patient remains on DuoNeb breathing treatments. Patient denies chest pain. Patient denies nausea vomiting or diarrhea. Patient denies any urinary burning or frequency On 11/13/2019 patient was seen and examined on the telemetry floor she is alert and oriented 3 in no apparent distress there is no fever or chills no headache or dizziness no chest pain no shortness of breath no cough no nausea or vomiting no abdominal pain no diarrhea no burning with urination no frequency or urgency no hematuria On 11/14/2019 patient was seen and examined on the telemetry floor she is complaining of shortness of breath with activity she is complaining of cough otherwise she denies any complaints there is no fever or chills no headache or dizziness no chest pain no nausea or vomiting no abdominal pain no diarrhea no burning was urination no frequency or urgency and no hematuria patient has 3+ pitting edema bilaterally On 11/15/2019 patient is alert and oriented 3. Patient having some increased wheeziness. Patient has been started back on IV Lasix per nephrology. Patient's potassium elevated at 5.6 Kayexalate ordered recheck ordered. Patient also complaining of increase abdominal discomfort right upper quadrant. Will order abdominal ultrasound. At this time patient denies chest pain. Patient denies nausea vomiting or diarrhea. Patient denies any urinary burning or frequency On 11/16/2019 patient is alert and oriented 3 patient denies any chest pain or shortness of breath. Patient's creatinine increasing to 2.98 and bun 69. Per nephrology possible plans to transition to oral Lasix. GI service is consulted abdominal ultrasound showing increased, and bile duct dilation. Patient denies any nausea vomiting at this time. Still having some abdominal tenderness. Patient denies any urinary burning or frequency On 11/17/2019 patient's alert and oriented 3. Patient has been cleared for discharge from cardiology and nephrology services. Patient also evaluated by GI services no further workup and patient will follow-up outpatient for further management. At this time patient denies chest pain or shortness breath. Patient denies nausea vomiting or diarrhea. Patient denies any urinary burning or frequency. Patient declined cardiac cath during hospital stay. She will be medically managed per cardiology. Coreg, Imdur, Plavix and aspirin added per cardiology. Hydralazine Demadex and Zaroxolyn added per nephrology. Patient will need close follow-up with consulting providers for further management of chronic conditions I performed an examination of the patient and discussed their management with the Nurse Practitioner. I have reviewed the Nurse Practitioner's notes and agree with the documented findings and plan of care Patient Condition at Discharge: Stable Plan - Discharge Summary Discharge Rx Participant: No New Discharge Prescriptions: New hydrALAZINE HCL [Apresoline] 75 mg PO TID 30 Days #90 tab Carvedilol [Coreg] 6.25 mg PO BID-W/MEALS 30 Days #60 tab Isosorbide Mononitrate ER [Imdur] 60 mg PO BID 30 Days #60 tab.er.24h Clopidogrel [Plavix] 75 mg PO DAILY 30 Days #30 tab Aspirin 81 mg PO DAILY 30 Days #30 chew Torsemide [Demadex] 20 mg PO BID 30 Days #60 tab Metolazone [Zaroxolyn] 2.5 mg PO BID 30 Days #60 tab Continue Insulin Detemir (Levemir) [Levemir] 20 - 25 unit SQ HS Insulin Lispro [humaLOG Kwikpen] See Protocol SQ AC-TID PRN PRN Reason: Blood Sugar - High Temazepam 30 mg PO HS Albuterol Nebulized [Ventolin Nebulized] 2.5 mg INHALATION RT-Q4H PRN PRN Reason: Shortness Of Breath Simvastatin [Zocor] 5 mg PO HS Discontinued Losartan Potassium [Cozaar] 50 mg PO DAILY Discharge Medication List Insulin Detemir (Levemir) [Levemir] 20 - 25 unit SQ HS 04/01/16 [History] Insulin Lispro [humaLOG Kwikpen] See Protocol SQ AC-TID PRN 04/01/16 [History] Temazepam 30 mg PO HS 04/09/16 [History] Albuterol Nebulized [Ventolin Nebulized] 2.5 mg INHALATION RT-Q4H PRN 11/29/17 [History] Simvastatin [Zocor] 5 mg PO HS 11/29/17 [History] Aspirin 81 mg PO DAILY 30 Days #30 chew 11/17/19 [Rx] Carvedilol [Coreg] 6.25 mg PO BID-W/MEALS 30 Days #60 tab 11/17/19 [Rx] Clopidogrel [Plavix] 75 mg PO DAILY 30 Days #30 tab 11/17/19 [Rx] Isosorbide Mononitrate ER [Imdur] 60 mg PO BID 30 Days #60 tab.er.24h 11/17/19 [Rx] Metolazone [Zaroxolyn] 2.5 mg PO BID 30 Days #60 tab 11/17/19 [Rx] Torsemide [Demadex] 20 mg PO BID 30 Days #60 tab 11/17/19 [Rx] hydrALAZINE HCL [Apresoline] 75 mg PO TID 30 Days #90 tab 11/17/19 [Rx] Follow up Appointment(s)/Referral(s): Carissa Ward MD [Primary Care Provider] - 11/17/19 10:00 am Usman Guillen DO [STAFF PHYSICIAN] - 1 Week Gertrude Hammer MD [STAFF PHYSICIAN] - 1 Week Elena Martines MD [STAFF PHYSICIAN] - 1 Week Ambulatory/Diagnostic Orders: Comprehensive Metabolic Panel [LAB.AMB] Time Frame: 2 Days, Location: None Selected Patient Instructions/Handouts: Heart Attack (DC), Chronic Kidney Disease Diet (DC), Hypertension (DC), Electronic Cigarettes and Your Health (ED) Activity/Diet/Wound Care/Special Instructions: Patient to follow with her rice milling supervisor Discharge Disposition: HOME SELF-CARE Care Plan Goals (MU): Please follow up with your rice milling supervisor within one week of being discharged from [facility].
--- NOTE | 2019-11-17 14:35 | P.PN ---
Subjective Progress Note Date: 11/17/19 This is a pleasant 79-year-old female patient with past medical history significant for CAD, status post two-vessel bypass grafting in 2010, chronic kidney disease, hypertension, permanent pacemaker implantation and chronic lower extremity edema. Initially presented with hypertension, acute ki dney injury and nonstemi. Patient was seen and examined this morning, denied any chest discomfort through the night last January. She is still complaining of some right upper quadrant tenderness on examination which she states that she's been experiencing for quite some time. Blood pressure this morning 142/60 with a heart rate in the 60s to 70s, 98% on 2 L of oxygen. White blood cell count 7.2, hemoglobin 9.1, platelet count 206. Sodium 134, potassium 5.6, BUN 56, creatinine 2.7. 11/16/2019 Patient was seen and examined this morning, she had just returned from a walk in the hallway, mildly short of breath but otherwise feeling well. Blood pressure 130/60 with a heart rate in the 60s, 98% on BiPAP. White blood cell count 6.4, hemoglobin 10.0, platelet count 236. Sodium 136, potassium 4.6, BUN 29, creatinine 2.9. 11/17/2019 Since seen and examined this morning, overall feeling significantly better. Denies any chest discomfort and her breathing is stable. She is anticipating d ischarge home today. Objective - Vital Signs Vital signs: Vital Signs Temp 97.5 F L 11/17/19 08:00 Pulse 65 11/17/19 12:00 Resp 20 11/17/19 12:00 BP 140/65 11/17/19 12:00 Pulse Ox 99 11/17/19 12:00 Intake & Output 11/16/19 11/17/19 11/17/19 18:59 06:59 18:59 Intake Total 720 240 240 Output Total 900 1400 1400 Balance -180 -1160 -1160 Weight 98.1 kg 101.8 kg Intake: Oral 720 240 240 Output: Urine 900 1400 1400 Other: # Voids 1 2 2 - Exam PHYSICAL EXAMINATION: HEENT: Head is atraumatic, normocephalic. Pupils equal, round. Neck is supple. There is no elevated jugular venous pressure. HEART EXAMINATION: Heart sounds regular, S1 and S2 with a systolic ejection murmur at the left sternal border. CHEST EXAMINATION: Lungs reveal faint extra wheezing throughout. No chest wall tenderness is noted on palpation or with deep breathing. ABDOMEN: Soft, nontender. Bowel sounds are heard. No organomegaly noted. EXTREMITIES: 2+ peripheral pulses with 1+ evidence of peripheral edema NEUROLOGIC patient is awake, alert and oriented x3. . - Labs CBC & Chem 7: 11/17/19 05:59 11/17/19 05:59 Labs: Abnormal Lab Results - Last 24 Hours (Table) 11/16/19 11/16/19 11/17/19 Range/Units 17:06 20:22 05:59 RBC 3.01 L (3.80-5.40) m/uL Hgb 8.7 L (11.4-16.0) gm/dL Hct 27.2 L (34.0-46.0) % Sodium (137-145) mmol/L BUN (7-17) mg/dL Creatinine (0.52-1.04) mg/dL POC Glucose (mg/dL) 185 H 281 H (75-99) mg/dL Calcium (8.4-10.2) mg/dL Total Protein (6.3-8.2) g/dL Albumin (3.5-5.0) g/dL 11/17/19 11/17/19 Range/Units 05:59 11:33 RBC (3.80-5.40) m/uL Hgb (11.4-16.0) gm/dL Hct (34.0-46.0) % Sodium 133 L (137-145) mmol/L BUN 76 H (7-17) mg/dL Creatinine 2.86 H (0.52-1.04) mg/dL POC Glucose (mg/dL) 242 H (75-99) mg/dL Calcium 7.7 L (8.4-10.2) mg/dL Total Protein 4.7 L (6.3-8.2) g/dL Albumin 2.4 L (3.5-5.0) g/dL Assessment and Plan Plan: Assessment: #1 non-ST elevation [place] with recurrent chest discomfort, has chosen to pursue medical management at this time #2 acute exacerbation of COPD #3 acute on chronic diastolic heart failure #4 acute kidney injury on chronic kidney disease #5 hypertension, poorly controlled #6 hyperlipidemia #7 history of CAD status post bypass grafting in 2010 #8 diabetes mellitus #9 status post pacemaker implantation #10 chronic nicotine dependence Plan From cardiology's perspective, we'll continue the patient on her current medications. She may be able to be discharged home from our perspective to follow-up with her platform inspector post discharge. DNP note has been reviewed, I agree with a documented findings and plan of care. Patient was seen and examined.
--- NOTE | 2019-11-17 15:52 | PN ---
PROGRESS NOTE Patient is seen for followup for acute kidney injury and significant lower extremity edema along with CKD. She was changed to oral diuretics yesterday. Her edema is about the same. The patient denies any shortness of breath. Plans for discharge today. Serum creatinine is slightly improved to 2.8 from 2.96 and was 2.98 yesterday. PHYSICAL EXAMINATION: Upon examination, blood pressure was 101/53, heart rate 71 per minute. The patient is afebrile. Examination of the heart, S1, S2. Examination of the lungs, bilateral breath sounds are heard. Abdomen is soft, nontender. Examination lower extremities shows edema, 3+ bilaterally. BOARD ATTENDANT exam grossly intact. LABS: Labs show sodium 133, potassium 4.2, BUN 76, creatinine 2.86, hemoglobin 8.7 g/dL. ASSESSMENT: 1. Acute kidney injury, mainly cardiorenal, currently slightly improved. Continue with the current dose of Demadex along with metolazone and follow up in the office in 1- 2 weeks. 2. Chronic kidney disease secondary to diabetic nephropathy, rule out any other underlying glomerulonephritis. Proteinuria needs to be quantified. The patient will follow up as outpatient. Need to rule out nephrotic syndrome. 3. Bilateral lower extremity edema with preserved ejection fraction and normal right heart pressures. 4. Tla-[id number] myocardial elevation. The patient has chosen to proceed with medical management. 5. Coronary artery disease with previous history of coronary artery bypass surgery. 6. Acute exacerbation of chronic obstructive pulmonary disease. PLAN: Continue current dose of Demadex along with metolazone. Follow up as outpatient. MMODL / IJN: [id number] /
--- NOTE | 2019-11-17 22:21 | PN ---
PROGRESS NOTE DATE OF SERVICE: November 17, 2019 Patient is a 79 -year-old pleasant white female admitted to the hospital with some right upper quadrant abdominal pain and a ultrasound of the abdomen showed slightly dilated common bile duct. This morning, she is feeling better. The abdominal pain has resolved. She denies any symptoms. She is noted to be discharged home today. PHYSICAL EXAMINATION: Appears comfortable, no apparent distress. Vital signs stable. Blood pressure 140/65 pulse rate 65, temperature 97.5. HEENT examination unremarkable. Conjunctivae pink. Sclerae anicteric. Oral cavity no lesions. NECK: No JVD or lymph node enlargement. CHEST: Clear to auscultation. HEART: Regular rate and rhythm. ABDOMEN: Soft. Bowel sounds are positive. No organomegaly. EXTREMITIES: No pedal edema. SKIN: No rashes. NEUROLOGICAL: She is alert and oriented x3. No focal deficits. LABS: WBC 5.6, hemoglobin 8.7, platelets normal. Basic metabolic panel is within normal limits. BUN 76, creatinine 2.86. AST, ALT, T-bilirubin and alkaline phosphatase are within normal limits. IMPRESSION: 1. Asymptomatic dilation of common bile duct noted on ultrasound of the abdomen, but clinically she is doing well. Her serum transaminases are completely normal limits. 2. Acute kidney injury for which Nephrology is following the patient closely. 3. History of atrial fibrillation/pacemaker implantation. Cardiology following the patient. RECOMMENDATIONS: In regard to the dilated common bile duct, since her serum transaminases are completely within normal limits, at this time we will not plan on any further investigations. The patient was advised to follow up in the office if she has any right upper quadrant abdominal pain or weight loss. She is going to be discharged home today. She was advised to follow up as needed. Thank you for this consultation. MMODL / IJN: [id number] /
== END 2019-11-17 15:05 | disposition home or self-care (01) | DRG 280 ==
LOC: EC 22:23 → 3SCARD 11-10 00:48
PROVIDERS: ADMIT Internal Medicine; ATTEND Internal Medicine
PROC: 5A09557 Assistance with Respiratory Ventilation, Greater than 96 Consecutive Hours, Continuous Positive Airway Pressure (ICD-10-PCS; principal; 2019-11-11)
DX: I21.4 Non-ST elevation (NSTEMI) myocardial infarction (principal); I50.33 Acute on chronic diastolic (congestive) heart failure; E87.2 Acidosis; N17.9 Acute kidney failure, unspecified; J44.1 Chronic obstructive pulmonary disease with (acute) exacerbation; I13.0 Hypertensive heart and chronic kidney disease with heart failure and stage 1 through stage 4 chronic kidney disease, or unspecified chronic kidney disease; I16.1 Hypertensive emergency; K83.8 Other specified diseases of biliary tract; E11.22 Type 2 diabetes mellitus with diabetic chronic kidney disease; E11.65 Type 2 diabetes mellitus with hyperglycemia; N18.3 Chronic kidney disease, stage 3 (moderate); E87.5 Hyperkalemia; I25.10 Atherosclerotic heart disease of native coronary artery without angina pectoris; I34.0 Nonrheumatic mitral (valve) insufficiency; E78.5 Hyperlipidemia, unspecified; E89.0 Postprocedural hypothyroidism; E78.00 Pure hypercholesterolemia, unspecified; G47.33 Obstructive sleep apnea (adult) (pediatric); E66.9 Obesity, unspecified; Z71.3 Dietary counseling and surveillance; Z68.36 Body mass index [BMI] 36.0-36.9, adult; F17.290 Nicotine dependence, other tobacco product, uncomplicated; Z71.6 Tobacco abuse counseling; Z79.4 Long term (current) use of insulin; Z79.899 Other long term (current) drug therapy; Z95.1 Presence of aortocoronary bypass graft; Z99.81 Dependence on supplemental oxygen; Z90.49 Acquired absence of other specified parts of digestive tract; Z98.84 Bariatric surgery status; Z90.710 Acquired absence of both cervix and uterus; Z86.19 Personal history of other infectious and parasitic diseases; Z95.0 Presence of cardiac pacemaker; Z99.89 Dependence on other enabling machines and devices; Z96.649 Presence of unspecified artificial hip joint; Z86.79 Personal history of other diseases of the circulatory system; Z98.42 Cataract extraction status, left eye; Z98.890 Other specified postprocedural states; Z88.2 Allergy status to sulfonamides; Z80.8 Family history of malignant neoplasm of other organs or systems; Z82.49 Family history of ischemic heart disease and other diseases of the circulatory system
CPT/HCPCS: 36415; 71045; 71046; 76700; 76770; 80048; 80053; 81001; 82570; 83880; 84132; 84300; 84484; 84540; 85025; 85610; 85730; 93005; 93306; 94640; 94760; 96365; 96376; 99291

== ENCOUNTER 2020-02-13 03:25 | Inpatient (IN) | payer MEDICARE, BC ==
[2020-02-13] MEDS ORDERED: ASPIRIN 81 MG PO STA (03:30)
--- NOTE | 2020-02-13 03:30 | ED ---
SOB HPI - General Stated Complaint: Shortness of Breath Time Seen by Provider: 02/13/20 03:29 - History of Present Illness Initial Comments: Elza is an 80-year-old female with a history of CHF, COPD on 4 L oxygen at baseline. Patient has known chronic kidney disease and because of that can only take limited diuretics. Patient presented to an outside hospital with a complaint of difficulty breathing she is found to be hypoxic. She was given additional supplemental oxygen and 3 breathing treatments as well as a dose of Solu-Medrol. Her oxygenation improved she declined any diuretics due to concern for her kidney function requested transfer here to follow with her squirrel worker. In route here on the ambulance patient reported she had worsening shortness of breath and did feel some left-sided chest pain with radiation to her jaw. Patient does state that she wears a CPAP or BiPAP at night she's not certain which not certain what her settings are but is agreeable to trying a BiPAP upon arrival. - Related Data Home Medications Medication Instructions Recorded Confirmed RX: Insulin Detemir (Levemir) 20 - 25 unit SQ HS 04/01/16 11/10/19 [Levemir] RX: Insulin Lispro [humaLOG See Protocol SQ AC-TID PRN 04/01/16 11/10/19 Kwikpen] RX: Temazepam 30 mg PO HS 04/09/16 11/10/19 RX: Albuterol Nebulized [Ventolin 2.5 mg INHALATION RT-Q4H PRN 11/29/17 11/10/19 Nebulized] RX: Simvastatin [Zocor] 5 mg PO HS 11/29/17 11/10/19 Previous Rx's Medication Instructions Recorded RX: Aspirin 81 mg PO DAILY 30 Days #30 chew 11/17/19 RX: Carvedilol [Coreg] 6.25 mg PO BID-W/MEALS 30 Days #60 11/17/19 tab RX: Clopidogrel [Plavix] 75 mg PO DAILY 30 Days #30 tab 11/17/19 RX: Isosorbide Mononitrate ER 60 mg PO BID 30 Days #60 tab.er.24h 11/17/19 [Imdur] RX: Metolazone [Zaroxolyn] 2.5 mg PO BID 30 Days #60 tab 11/17/19 RX: Torsemide [Demadex] 20 mg PO BID 30 Days #60 tab 11/17/19 RX: hydrALAZINE HCL [Apresoline] 75 mg PO TID 30 Days #90 tab 11/17/19 Allergies Allergy/AdvReac Type Severity Reaction Status Date / Time sulfamethoxazole Allergy Unknown Verified 11/10/19 08:09 [From Bactrim] trimethoprim [From Bactrim] Allergy Unknown Verified 11/10/19 08:09 Review of Systems ROS Statement: Those systems with pertinent positive or pertinent negative responses have been documented in the HPI. ROS Other: All systems not noted in ROS Statement are negative. Past Medical History Past Medical History: Diabetes Mellitus, Hypertension, Musculoskeletal Disorder, Sleep Apnea/CPAP/BIPAP, Thyroid Disorder Additional Past Medical History / Comment(s): HX OF THYROID NODULES, HX OF RUPTURED DISCS, SLEEP APNEA WITH BI-PAP MACHINE, [employer] PACEMAKER. History of Any Multi-Drug Resistant Organisms: ESBL Date of last positivie culture/infection: 10/18/19 MDRO Source:: ESBL URINE Past Surgical History: Appendectomy, Back Surgery, Bariatric Surgery, Coronary Bypass/CABG, Heart Catheterization, Hysterectomy, Pacemaker Additional Past Surgical History / Comment(s): LAP BAND, CATARACT LEFT EYE, NEUROMA ON FOOT, KNEE ARTHROSCOPY, PACEMAKER ([employer] 04/18/2015) Partial thyroidectomy 2000 Past Anesthesia/Blood Transfusion Reactions: No Reported Reaction Type of Cardiac Device: Permanent Pacemaker Device Placement Date:: 04/18/2015 [employer] Past Psychological History: No Psychological Hx Reported Smoking Status: Current every day smoker Past Alcohol Use History: Occasional Past Drug Use History: None Reported - Past Family History Son(s) Family Medical History: Cancer Additional Family Medical History / Comment(s): MELANOMA Father History Unknown: Yes Family Medical History: Cancer Mother Family Medical History: Coronary Artery Disease (CAD) General Exam - General Exam Comments Initial Comments: Physical Exam GENERAL: Chronically ill appearing HENT: Normocephalic, Atraumatic. EYES: PERRL, EOMI PULMONARY: Wheezing in upper lung forrest Decreased breath sounds at bilateral bases CARDIOVASCULAR: RRR Pacemaker palpable in left chest ABDOMEN: Soft and nontender with normal bowel sounds. SKIN: Skin is clear with no lesions or rashes and otherwise unremarkable. : Deferred NEUROLOGIC: Patient is alert and oriented x3. Moving all extremities spontaneously Lower extremity edema MUSCULOSKELETAL: No obvious injury PSYCHIATRIC: Normal psychiatric evaluation. Course Vital Signs 02/13/20 02/13/20 02/13/20 03:34 03:39 03:52 Temperature 98 F Pulse Rate 82 75 Respiratory 32 H 32 H Rate Blood Pressure 181/98 O2 Sat by Pulse 94 L Oximetry 02/13/20 02/13/20 04:02 05:00 Temperature Pulse Rate 72 65 Respiratory 24 Rate Blood Pressure 180/80 O2 Sat by Pulse 98 Oximetry Medical Decision Making - Medical Decision Making Patient care was discussed with transferring physician extensive 80-year-old female with COPD, CHF and no chronic kidney disease. Patient presented hypoxic appearing to have multifactorial respiratory failure was treated for COPD and given supplemental oxygenation and upon arrival here patient had worsening short ness of breath and chest pain. Decision was made to place patient on BiPAP for respiratory support which significantly improved her condition. Repeat labs were obtained. Patient's troponin is in fact uptrending I still suspect that this is a Type II NSTEMI secondary to hypoxia, however given her symptoms of chest pain with radiation to her jaw we will heparinize Patient continues to decline diuretics at this time to she is evaluated by her squirrel worker We will continue BiPAP support, breathing treatment is needed admit with consult pulmonology and nephrology - Lab Data Result diagrams: 02/13/20 04:23 02/13/20 04:23 Lab Results 02/13/20 02/13/20 02/13/20 Range/Units 04:23 04:23 04:23 WBC 9.3 (3.8-10.6) k/uL RBC 3.80 (3.80-5.40) m/uL Hgb 10.8 L (11.4-16.0) gm/dL Hct 35.2 (34.0-46.0) % MCV 92.5 (80.0-100.0) fL MCH 28.4 (25.0-35.0) pg MCHC 30.7 L (31.0-37.0) g/dL RDW 14.3 (11.5-15.5) % Plt Count 175 (150-450) k/uL Neutrophils % 78 % Lymphocytes % 7 % Monocytes % 12 % Eosinophils % 0 % Basophils % 0 % Neutrophils # 7.2 (1.3-7.7) k/uL Lymphocytes # 0.7 L (1.0-4.8) k/uL Monocytes # 1.2 H (0-1.0) k/uL Eosinophils # 0.0 (0-0.7) k/uL Basophils # 0.0 (0-0.2) k/uL Hypochromasia Moderate PT 10.6 (9.0-12.0) sec INR 1.0 (<1.2) APTT 21.9 L (22.0-30.0) sec Sodium 141 (137-145) mmol/L Potassium 5.9 H (3.5-5.1) mmol/L Chloride 111 H (98-107) mmol/L Carbon Dioxide 22 (22-30) mmol/L Anion Gap 8 mmol/L BUN 42 H (7-17) mg/dL Creatinine 2.23 H (0.52-1.04) mg/dL Est GFR (CKD-EPI)AfAm 23 (>60 ml/min/1.73 sqM) Est GFR (CKD-EPI)NonAf 20 (>60 ml/min/1.73 sqM) Glucose 273 H (74-99) mg/dL Calcium 8.7 (8.4-10.2) mg/dL Magnesium 2.3 (1.6-2.3) mg/dL Total Bilirubin 0.3 (0.2-1.3) mg/dL AST 38 H (14-36) U/L ALT 29 (4-34) U/L Alkaline Phosphatase 77 (38-126) U/L Troponin I (0.000-0.034) ng/mL NT-Pro-B Natriuret Pep pg/mL Total Protein 6.3 (6.3-8.2) g/dL Albumin 3.4 L (3.5-5.0) g/dL 02/13/20 02/13/20 Range/Units 04:23 04:23 WBC (3.8-10.6) k/uL RBC (3.80-5.40) m/uL Hgb (11.4-16.0) gm/dL Hct (34.0-46.0) % MCV (80.0-100.0) fL MCH (25.0-35.0) pg MCHC (31.0-37.0) g/dL RDW (11.5-15.5) % Plt Count (150-450) k/uL Neutrophils % % Lymphocytes % % Monocytes % % Eosinophils % % Basophils % % Neutrophils # (1.3-7.7) k/uL Lymphocytes # (1.0-4.8) k/uL Monocytes # (0-1.0) k/uL Eosinophils # (0-0.7) k/uL Basophils # (0-0.2) k/uL Hypochromasia PT (9.0-12.0) sec INR (<1.2) APTT (22.0-30.0) sec Sodium (137-145) mmol/L Potassium (3.5-5.1) mmol/L Chloride (98-107) mmol/L Carbon Dioxide (22-30) mmol/L Anion Gap mmol/L BUN (7-17) mg/dL Creatinine (0.52-1.04) mg/dL Est GFR (CKD-EPI)AfAm (>60 ml/min/1.73 sqM) Est GFR (CKD-EPI)NonAf (>60 ml/min/1.73 sqM) Glucose (74-99) mg/dL Calcium (8.4-10.2) mg/dL Magnesium (1.6-2.3) mg/dL Total Bilirubin (0.2-1.3) mg/dL AST (14-36) U/L ALT (4-34) U/L Alkaline Phosphatase (38-126) U/L Troponin I 0.176 H* (0.000-0.034) ng/mL NT-Pro-B Natriuret Pep 49733 pg/mL Total Protein (6.3-8.2) g/dL Albumin (3.5-5.0) g/dL - EKG Data -: EKG Interpreted by Id EKG Comments: EKG was obtained due to complaint of left-sided chest pain with radiation to the left jaw and history of coronary artery disease EKG was obtained 3:33 AM, rate is 82 rhythm is AV paced. CT is prolonged at 248, curious 1:30, QT [address] depressions or elevations no obvious evidence of acute ischemia or infarction Disposition Clinical Impression: Acute exacerbation of chronic obstructive pulmonary disease, Troponin level elevated, Acute exacerbation of congestive heart failure Disposition: ADMITTED IP TO THIS HOSP Condition: Serious Is patient prescribed a controlled substance at d/c from ED?: No Referrals: Carissa Ward MD [Primary Care Provider] - 1-2 days
[2020-02-13] MEDS ORDERED: IPRATROPIUM-ALBUTEROL 3 ML NEB INHALATION STA (03:38)
--- NOTE | 2020-02-13 03:54 | XR ---
EXAMINATION TYPE: XR chest 1V portable DATE OF EXAM: 02/13/2020 COMPARISON: NONE HISTORY: 02/13/2020 2 hours ago. TECHNIQUE: Single view FINDINGS: There is pulmonary vascular congestion. Heart is enlarged. There is blunting of the costoph renic angles. There is a left axillary pacemaker. There are sternal wires. IMPRESSION: Congestive heart failure and pulmonary edema appears slightly worse than last exam. Mild pleural effusions.
[2020-02-13 04:32] LABS: Basophils % (A) 0 %; Eosinophils % (A) 0 %; HCT 35.2 % (34.0-46.0); HGB 10.8 gm/dL (11.4-16.0); Hypochromasia Moderate; Lymphocytes # (A) 0.7 k/uL (1.0-4.8); Lymphocytes % (A) 7 %; MCH 28.4 pg (25.0-35.0); MCHC 30.7 g/dL (31.0-37.0); MCV 92.5 fL (80.0-100.0); Mean Platelet Volume 8.2; Monocytes # (A) 1.2 k/uL (0-1.0); Monocytes % (A) 12 %; Neutrophils # (A) 7.2 k/uL (1.3-7.7); Neutrophils % (A) 78 %; Platelet Count 175 k/uL (150-450); RDW 14.3 % (11.5-15.5); WBC 9.3 k/uL (3.8-10.6)
[2020-02-13 04:37] LABS: Prothrombin Time 10.6 sec (9.0-12.0)
[2020-02-13 04:38] LABS: Albumin 3.4 g/dL (3.5-5.0); Calcium 8.7 mg/dL (8.4-10.2); Magnesium 2.3 mg/dL (1.6-2.3); Potassium 5.9 mmol/L (3.5-5.1); Total Bilirubin 0.3 mg/dL (0.2-1.3); Total Protein 6.3 g/dL (6.3-8.2)
[2020-02-13 04:54] LABS: Partial Thromboplastin Time 21.9 sec (22.0-30.0)
[2020-02-13] MEDS ORDERED: HEPARIN SODIUM,PORCINE 5,000 UNIT/ML 1 ML VIAL IV ONE (05:43)
[2020-02-13] MEDS ORDERED: HEPARIN SODIUM,PORCINE 5,000 UNIT/ML 1 ML VIAL IV PRN (05:43)
[2020-02-13] MEDS ORDERED: NALOXONE 0.4 MG/ML 1 ML VIAL IV PRN (05:45)
[2020-02-13] MEDS: HEPARIN SOD,PORK IN 0.45% NACL 25,000 UNIT in 0.45% NACL 1 250ML.BAG IV SCH (06:03)
[2020-02-13] MEDS ORDERED: TORSEMIDE 20 MG TAB PO PRN (08:42)
[2020-02-13] MEDS ORDERED: ISOSORBIDE MONONITRATE ER 60 MG TAB.ER.24H PO SCH ×2 (09:00)
[2020-02-13] MEDS ORDERED: LOSARTAN 50 MG TAB PO SCH (09:00)
[2020-02-13] MEDS ORDERED: predniSONE 20 MG TAB PO SCH (09:00)
[2020-02-13] MEDS ORDERED: TORSEMIDE 20 MG TAB PO SCH (09:00)
[2020-02-13] MEDS ORDERED: METOLAZONE 2.5 MG TAB PO SCH (09:00)
[2020-02-13] MEDS: CLOPIDOGREL 75 MG TAB PO SCH (09:23)
[2020-02-13] MEDS: hydrALAZINE HCL 25 MG TAB PO SCH ×3 (09:23→21:45)
[2020-02-13] MEDS: ASPIRIN 81 MG PO SCH (09:23)
[2020-02-13] MEDS: ISOSORBIDE MONONITRATE ER 60 MG TAB.ER.24H PO SCH (09:23)
[2020-02-13] MEDS: CARVEDILOL 6.25 MG TAB PO SCH ×2 (09:26→15:35)
[2020-02-13 11:35] LABS: Glucose,Whole Blood 362 mg/dL (75-99)
[2020-02-13] MEDS: INSULIN ASPART (NovoLOG) 100 UNIT/ML VIAL SQ SCH ×3 (12:12→21:47)
--- NOTE | 2020-02-13 13:01 | P.CNPUL ---
History of Present Illness Consult date: 02/13/20 Reason for consult: dyspnea History of present illness: This is an 80-year-old female patient with known history of COPD, diastolic heart failure, chronic kidney disease stage III, hypertension, CAD with previous bypass surgery more than 20 years ago, diabetes mellitus, hypertension and hyperlipidemia and history of placement pacemaker insertion 2014 along with obstructive sleep apnea and obesity with a BMI of 34.4 This patient came into the hospital yesterday because of worsening shortness of breath. She has been having increased lower extremity edema. She has been having exertional dyspnea. No significant cough sputum production. No chest tightness. No wheezing. No angina. No previous history of DVT or pulmonary embolism. The patient was concerned about her renal function and she has been taken her torsemide diuretic on a regular basis and she's been doing good probably once or twice a week. During this current admission, her creatinine is at 2.2 which is slightly lower compared to her baseline. BUN is at 42. She has a troponin leak with troponin level of 0.176 and a proBNP level of 20,008 100. The blood sugar is at 273. Potassium level is at 5.9. She was started on IV heparin and the EKG showed a paced rhythm. History of any chest pain for now. Cardiology consultation is still pending for now. Meanwhile, the patient was not given any diuretics based on her ongoing concern. She did consult with nephrology prior to doing so. I noted that her blood pressure was slightly elevated and it resumed her Coreg and hydralazine for now. She is awake and alert and she has no specific complaint otherwise. Review of Systems Constitutional: Reports fatigue, Reports weight gain Eyes: denies as per HPI, denies blurred vision, denies bulging eye, denies decreased vision, denies diplopia, denies discharge, denies dry eye, denies irritation, denies itching, denies pain, denies photophobia, denies loss of peripheral vision, denies loss of vision, denies tunnel vision/blind spots Ears: deny: decreased hearing, ear discharge, earache, tinnitus Ears, nose, mouth and throat: Denies headache, Denies sore throat Breasts: absent: as per HPI, change in shape, gynecomastia, masses, nipple discharge, pain, skin changes, swelling Breasts: Reports as per HPI Cardiovascular: Reports decreased exercise tolerance, Reports dyspnea on exertion, Reports leg edema Respiratory: Reports dyspnea, Reports home oxygen Gastrointestinal: Reports as per HPI Genitourinary: Reports as per HPI Menstruation: Reports as per HPI Musculoskeletal: Reports as per HPI Musculoskeletal: bilateral: ankle swelling, absent: ankle pain, ankle stiffness Integumentary: Reports as per HPI Neurological: Reports as per HPI, Reports weakness Psychiatric: Reports as per HPI Endocrine: Reports as per HPI, Reports fatigue Hematologic/Lymphatic: Reports as per HPI Allergic/Immunologic: Reports as per HPI Past Medical History Past Medical History: Diabetes Mellitus, Hypertension, Musculoskeletal Disorder, Sleep Apnea/CPAP/BIPAP, Thyroid Disorder Additional Past Medical History / Comment(s): COPD, CHF with diastolic heart failure, hypertension, chronic kidney disease stage III, coronary artery disease with previous bypass surgery, history of pacemaker insertion 2014, diabetes mellitus, hypertension, obstructive sleep apnea, thyroid nodules, hyperlipidemia, history of smoking in the order of [id number] History of Any Multi-Drug Resistant Organisms: ESBL Date of last positivie culture/infection: 10/18/19 MDRO Source:: ESBL URINE Past Surgical History: Appendectomy, Back Surgery, Bariatric Surgery, Coronary Bypass/CABG, Heart Catheterization, Hysterectomy, Pacemaker Additional Past Surgical History / Comment(s): LAP BAND, CATARACT LEFT EYE, NEUROMA ON FOOT, KNEE ARTHROSCOPY, PACEMAKER ([employer] 04/18/2015) Partial thyroidectomy 1999 Past Anesthesia/Blood Transfusion Reactions: No Reported Reaction Type of Cardiac Device: Permanent Pacemaker Device Placement Date:: 04/18/2015 [employer] Past Psychological History: No Psychological Hx Reported Smoking Status: Current every day smoker Past Alcohol Use History: Occasional Past Drug Use History: None Reported - Past Family History Son(s) Family Medical History: Cancer Additional Family Medical History / Comment(s): MELANOMA Father History Unknown: Yes Family Medical History: Cancer Mother Family Medical History: Coronary Artery Disease (CAD) Medications and Allergies Home Medications Medication Instructions Recorded Confirmed Type Insulin Detemir (Levemir) [Levemir] 20 - 25 unit SQ HS 04/01/16 02/13/20 History Insulin Lispro [humaLOG Kwikpen] See Protocol SQ AC-TID PRN 04/01/16 02/13/20 Hi story Temazepam 30 mg PO HS 04/09/16 02/13/20 History Albuterol Nebulized [Ventolin 2.5 mg INHALATION RT-Q4H PRN 11/29/17 02/13/20 History Nebulized] Simvastatin [Zocor] 5 mg PO HS 11/29/17 02/13/20 History Aspirin 81 mg PO DAILY 30 Days #30 chew 11/17/19 02/13/20 Rx Carvedilol [Coreg] 6.25 mg PO BID-W/MEALS 30 Days #60 11/17/19 02/13/20 Rx tab Clopidogrel [Plavix] 75 mg PO DAILY 30 Days #30 tab 11/17/19 02/13/20 Rx hydrALAZINE HCL [Apresoline] 75 mg PO TID 30 Days #90 tab 11/17/19 02/13/20 Rx Isosorbide Mononitrate 60 mg PO DAILY 02/13/20 02/13/20 History Losartan Potassium 100 mg PO DAILY 02/13/20 02/13/20 History Torsemide [Demadex] 20 mg PO DAILY PRN 02/13/20 02/13/20 History Allergies Allergy/AdvReac Type Severity Reaction Status Date / Time sulfamethoxazole Allergy Unknown Verified 11/10/19 08:09 [From Bactrim] trimethoprim [From Bactrim] Allergy Unknown Verified 11/10/19 08:09 Physical Exam Vitals: Vital Signs Temp Pulse Resp BP Pulse Ox 02/13/20 07:27 97 02/13/20 05:00 65 24 180/80 98 02/13/20 04:02 72 02/13/20 03:52 75 02/13/20 03:39 32 H 02/13/20 03:34 98 F 82 32 H 181/98 94 L Intake and Output 02/12/20 02/13/20 02/13/20 22:59 06:59 14:59 Output Total 200 Balance -200 Output: Urine 200 Other: # Bowel Movements 0 Weight 96.615 kg GENERAL EXAM: Alert, very pleasant, 80-year-old white female, , comfortable in no apparent distress. HEAD: Normocephalic/atraumatic. EYES: Normal reaction of pupils, equal size. Conjunctiva pink, sclera white. NOSE: Clear with pink turbinates. THROAT: No erythema or exudates. NECK: No masses, no JVD, no thyroid enlargement, no adenopathy. CHEST: No chest wall deformity. Symmetrical expansion. LUNGS: Equal air entry with and crackles at the bases CVS: Regular rate and rhythm, normal S1 and S2, no gallops, no murmurs, no rubs ABDOMEN: Soft, nontender. No hepatosplenomegaly, normal bowel sounds, no guarding or rigidity. EXTREMITIES: No clubbing, 1+ edema, patient does have history of chronic lymphedema involving lower extremities no cyanosis, 2+ pulses and upper and lower extremities. MUSCULOSKELETAL: Muscle strength and tone normal. SPINE: No scoliosis or deformity SKIN: No rashes CENTRAL NERVOUS SYSTEM: Alert and oriented -3. No focal deficits, tone is normal in all 4 extremities. PSYCHIATRIC: Alert and oriented -3. Appropriate affect. Intact judgment and insight. Results - Laboratory Findings CBC and BMP: 02/13/20 04:23 02/13/20 04:23 PT/INR, D-dimer PT 10.6 sec (9.0-12.0) 02/13/20 04:23 INR 1.0 (<1.2) 02/13/20 04:23 Abnormal lab findings: Abnormal Labs 02/13/20 02/13/20 02/13/20 04:23 04:23 04:23 Hgb 10.8 L MCHC 30.7 L Lymphocytes # 0.7 L Monocytes # 1.2 H APTT 21.9 L Potassium 5.9 H Chloride 111 H BUN 42 H Creatinine 2.23 H Glucose 273 H AST 38 H Troponin I Albumin 3.4 L 02/13/20 04:23 Hgb MCHC Lymphocytes # Monocytes # APTT Potassium Chloride BUN Creatinine Glucose AST Troponin I 0.176 H* Albumin - Diagnostic Findings Chest x-ray: image reviewed Assessment and Plan Plan: 1. Shortness of breath likely on the basis of CHF exacerbation/fluid overload. The patient has pulmonary asked her congestion/edema on her chest x-ray in addition to that she has a elevated proBNP level and increased edema in lower extremities is bilaterally. All these findings are supporting CHF/fluid overload. Furthermore, the patient has been not taking her diuretics are regular basis due to concern of renal insufficiency as the patient has chronic kidney disease. 2. Acute non-ST elevated myocardial infarction, currently the patient is on IV heparin. The patient has been fairly of any chest pain. EKGs is paced rhythm and the patient is being seen by cardiology. 3. Hypertension, and the blood pressure is under poor control 4. Diastolic heart failure 5. chronic kidney disease, stage III 6. History of coronary artery disease status post bypass grafting 19 years ago 7. History of CHF with diastolic dysfunction, echocardiogram showed low normal EF of 50-55% moderate mitral regurgitation, trace tricuspid regurg, PA systolic of less than 35 mmHg, normal inferior vena cava with normal inspiratory collapse an estimated right atrial pressure of 5 mmHg 8. Diabetes mellitus 9. Chronic smoker, carries 50 years of smoking of less than a pack a day, and more recently started vaping in an attempt to quit smoking 10. Oxygen dependent COPD, not consistently compliant with oxygen 11. Hypertension 12. Hyperlipidemia 13. Permanent pacemaker insertion in 2014 14. Obesity, with history of lap band 15. Obstructive sleep apnea on BiPAP machine Plan Support the use of gentle diuresis and the patient asked us to clear this with nephrology prior to giving her any such treatment Monitor troponins Continue IV heparin Cardiology consultation Nephrology consultation Continue DuoNeb nebulized treatments around the clock Tighter blood pressure control Will follow
--- NOTE | 2020-02-13 13:22 | P.NPCON ---
History of Present Illness - Reason for Consult Consult date: 02/13/20 acute renal failure - Chief Complaint Shortness of breath - History of Present Illness This is a 80-year-old female known to us with chronic kidney disease stage III to 4, hypertension COPD history of bypass surgery diabetes hypertension and hyperlipidemia and placement of pacemaker in 2014. She came in with shortness of breath for the last few days. She refuses diuretics. She already has congestive heart failure with edema and lung findings as well as chest x-ray findings that conformity. She is on torsemide 20 mg every 3-4 days at home. She has cough no fever chills. She has not been tested for covid-19 Past Medical History Past Medical History: Diabetes Mellitus, Hypertension, Musculoskeletal Disorder, Sleep Apnea/CPAP/BIPAP, Thyroid Disorder Additional Past Medical History / Comment(s): COPD, CHF with diastolic heart failure, hypertension, chronic kidney disease stage III, coronary artery disease with previous bypass surgery, history of pacemaker insertion 2014, diabetes mellitus, hypertension, obstructive sleep apnea, thyroid nodules, hyperlipidemia, history of smoking in the order of [id number] History of Any Multi-Drug Resistant Organisms: ESBL Date of last positivie culture/infection: 10/18/19 MDRO Source:: ESBL URINE Past Surgical History: Appendectomy, Back Surgery, Bariatric Surgery, Coronary Bypass/CABG, Heart Catheterization, Hysterectomy, Pacemaker Additional Past Surgical History / Comment(s): LAP BAND, CATARACT LEFT EYE, NEUROMA ON FOOT, KNEE ARTHROSCOPY, PACEMAKER ([employer] 04/18/2015) Partial thyroidectomy 1999 Past Anesthesia/Blood Transfusion Reactions: No Reported Reaction Type of Cardiac Device: Permanent Pacemaker Device Placement Date:: 04/18/2015 [employer] Past Psychological History: No Psychological Hx Reported Smoking Status: Current every day smoker Past Alcohol Use History: Occasional Past Drug Use History: None Reported - Past Family History Son(s) Family Medical History: Cancer Additional Family Medical History / Comment(s): MELANOMA Father History Unknown: Yes Family Medical History: Cancer Mother Family Medical History: Coronary Artery Disease (CAD) Medications and Allergies Home Medications Medication Instructions Recorded Confirmed Type Insulin Detemir (Levemir) [Levemir] 20 - 25 unit SQ HS 04/01/16 02/13/20 History Insulin Lispro [humaLOG Kwikpen] See Protocol SQ AC-TID PRN 04/01/16 02/13/20 History Temazepam 30 mg PO HS 04/09/16 02/13/20 History Albuterol Nebulized [Ventolin 2.5 mg INHALATION RT-Q4H PRN 11/29/17 02/13/20 History Nebulized] Simvastatin [Zocor] 5 mg PO HS 11/29/17 02/13/20 History Aspirin 81 mg PO DAILY 30 Days #30 chew 11/17/19 02/13/20 Rx Carvedilol [Coreg] 6.25 mg PO BID-W/MEALS 30 Days #60 11/17/19 02/13/20 Rx tab Clopidogrel [Plavix] 75 mg PO DAILY 30 Days #30 tab 11/17/19 02/13/20 Rx hydrALAZINE HCL [Apresoline] 75 mg PO TID 30 Days #90 tab 11/17/19 02/13/20 Rx Isosorbide Mononitrate 60 mg PO DAILY 02/13/20 02/13/20 History Losartan Potassium 100 mg PO DAILY 02/13/20 02/13/20 History Torsemide [Demadex] 20 mg PO DAILY PRN 02/13/20 02/13/20 History Allergies Allergy/AdvReac Type Severity Reaction Status Date / Time sulfamethoxazole Allergy Unknown Verified 11/10/19 08:09 [From Bactrim] trimethoprim [From Bactrim] Allergy Unknown Verified 11/10/19 08:09 Physical Exam Vitals: Vital Signs Temp Pulse Pulse Resp BP BP Pulse Ox 02/13/20 11:55 98.4 F 77 16 164/64 99 02/13/20 07:30 77 16 02/13/20 07:27 97 02/13/20 07:20 97.6 F 77 16 204/88 98 02/13/20 05:00 65 24 180/80 98 02/13/20 04:02 72 02/13/20 03:52 75 02/13/20 03:39 32 H 02/13/20 03:34 98 F 82 32 H 181/98 94 L Intake and Output 02/12/20 02/13/20 02/13/20 22:59 06:59 14:59 Intake Total 600 140 Output Total 500 Balance 600 -360 Intake: IV 20 Invasive Line 3 20 Oral 600 120 Output: Urine 500 Other: # Bowel Movements 0 Weight 96.615 kg 96.615 kg On examination she is short of breath on nasal cannula. HEENT exam no JVP neck is supple facial asymmetry Lungs are significant for bilateral fine crackles with some end expiratory wheezing fairly good air entry bilaterally Heart sounds are unremarkable. She has a pacemaker Abdomen soft nontender no organomegaly ascites masses noted Extremity exam was mild edema Neurologically awake alert oriented Results - Lab Results Most recent lab results Calcium 8.7 mg/dL (8.4-10.2) 02/13/20 04:23 Magnesium 2.3 mg/dL (1.6-2.3) 02/13/20 04:23 02/13/20 04:23 02/13/20 04:23 Assessment and Plan Assessment: Impression 1. Acute kidney injury, secondary to cardiorenal syndrome creatinines up to 2.23 from baseline of 1.8 dated 10/12/2019 2. Chronic kidney disease stage IV, secondary to diabetic nephropathy with microalbumin to creatinine ratio of 318/33 and additionally nephrosclerosis stage IV with GFR and its best at 28.4 dated 11/04/2018 and more recently on 10/12/2019 was 26.3. 3. Congestive heart failure 4. Mild edema 5. Hyperkalemia potassium 5.9 secondary to combination of medications losartan and acute kidney injury. 6. Mild degree of non-gap acidosis from acute kidney injury and chronic kidney disease 7. Diabetes mellitus with A1c 6.5% dated 06/21/2019 Recommendation 1. Diurese gently with Lasix 20 mg IV daily and see how she does. Patient is refusing at this time but may consider it tomorrow 2. Start sodium bicarb at 650 mg 4 times a day to improve her hyperkalemia and mild acidosis 3. 2 g potassium diet 4. Hold losartan as it might increase potassium. It may be reintroduced once she is on Lasix or torsemide
[2020-02-13] MEDS ORDERED: SODIUM POLYSTYRENE SULFONATE 15 GM/60 ML BOTTLE PO STA (13:24)
--- NOTE | 2020-02-13 13:36 | P.HPIM ---
History of Present Illness H&P Date: 02/13/20 Chief Complaint: Worsening shortness of breath Elza Avery is an 80-year-old female, patient of Dr. Ward, who presented to [facility] with a chief complaint of worsening shortness of breath, patient was evaluated and decision was made to transfer to [facility], she has a known history of chronic kidney disease, history of congestive heart failure and history of COPD, patient was hypoxic she was given supplemental oxygen Solu-Medrol and bronchodilator updrafts, patient was resistant to taking IV diuretics before seen her grouter helper due to her kidney function. During her transfer patient had episode of chest pain and shortness of breath in the ambulance, upon arrival to the hospital she was started on BiPAP. Pulmonary consultation cardiology consultation and nephrology consultations were initiated. Patient was admitted to telemetry floor, troponin level was elevated at 0.176, BNP was elevated at 20,800, patient was started on IV heparin. Home medications were reordered including diuretics. Past Medical History Past Medical History: Diabetes Mellitus, Hypertension, Musculoskeletal Disorder, Sleep Apnea/CPAP/BIPAP, Thyroid Disorder Additional Past Medical History / Comment(s): COPD, CHF with diastolic heart failure, hypertension, chronic kidney disease stage III, coronary artery disease with previous bypass surgery, history of pacemaker insertion 2014, diabetes mellitus, hypertension, obstructive sleep apnea, thyroid nodules, hyperlipidemia, history of smoking in the order of [id number] History of Any Multi-Drug Resistant Organisms: ESBL Date of last positivie culture/infection: 10/18/19 MDRO Source:: ESBL URINE Past Surgical History: Appendectomy, Back Surgery, Bariatric Surgery, Coronary Bypass/CABG, Heart Catheterization, Hysterectomy, Pacemaker Additional Past Surgical History / Comment(s): LAP BAND, CATARACT LEFT EYE, NEUROMA ON FOOT, KNEE ARTHROSCOPY, PACEMAKER ([employer] 04/18/2015) Partial thyroidectomy 1999 Past Anesthesia/Blood Transfusion Reactions: No Reported Reaction Type of Cardiac Device: Permanent Pacemaker Device Placement Date:: 04/18/2015 [employer] Past Psychological History: No Psychological Hx Reported Smoking Status: Current every day smoker Past Alcohol Use History: Occasional Past Drug Use History: None Reported - Past Family History Son(s) Family Medical History: Cancer Additional Family Medical History / Comment(s): MELANOMA Father History Unknown: Yes Family Medical History: Cancer Mother Family Medical History: Coronary Artery Disease (CAD) Medications and Allergies Home Medications Medication Instructions Recorded Confirmed Type Insulin Detemir (Levemir) [Levemir] 20 - 25 unit SQ HS 04/01/16 02/13/20 History Insulin Lispro [humaLOG Kwikpen] See Protocol SQ AC-TID PRN 04/01/16 02/13/20 History Temazepam 30 mg PO HS 04/09/16 02/13/20 History Albuterol Nebulized [Ventolin 2.5 mg INHALATION RT-Q4H PRN 11/29/17 02/13/20 History Nebulized] Simvastatin [Zocor] 5 mg PO HS 11/29/17 02/13/20 History Aspirin 81 mg PO DAILY 30 Days #30 chew 11/17/19 02/13/20 Rx Carvedilol [Coreg] 6.25 mg PO BID-W/MEALS 30 Days #60 11/17/19 02/13/20 Rx tab Clopidogrel [Plavix] 75 mg PO DAILY 30 Days #30 tab 11/17/19 02/13/20 Rx hydrALAZINE HCL [Apresoline] 75 mg PO TID 30 Days #90 tab 11/17/19 02/13/20 Rx Isosorbide Mononitrate 60 mg PO DAILY 02/13/20 02/13/20 History Losartan Potassium 100 mg PO DAILY 02/13/20 02/13/20 History Torsemide [Demadex] 20 mg PO DAILY PRN 02/13/20 02/13/20 History Allergies Allergy/AdvReac Type Severity Reaction Status Date / Time sulfamethoxazole Allergy Unknown Verified 11/10/19 08:09 [From Bactrim] trimethoprim [From Bactrim] Allergy Unknown Verified 11/10/19 08:09 Physical Exam Vitals: Vital Signs Temp Pulse Pulse Resp BP BP Pulse Ox 02/13/20 11:55 98.4 F 77 16 164/64 99 02/13/20 07:30 77 16 02/13/20 07:27 97 02/13/20 07:20 97.6 F 77 16 204/88 98 02/13/20 05:00 65 24 180/80 98 02/13/20 04:02 72 02/13/20 03:52 75 02/13/20 03:39 32 H 02/13/20 03:34 98 F 82 32 H 181/98 94 L Intake and Output 02/12/20 02/13/20 02/13/20 22:59 06:59 14:59 Intake Total 600 140 Output Total 500 Balance 600 -360 Intake: IV 20 Invasive Line 3 20 Oral 600 120 Output: Urine 500 Other: # Bowel Movements 0 Weight 96.615 kg 96.615 kg At this time patient is alert and oriented 3 in no apparent distress HEENT head normocephalic and atraumatic Neck is supple no JVD no goiter no lymphadenopathy Chest exam reveals a few scattered rhonchi no wheezing Cardiac exam reveals regular heart sounds S1 and S2 no gallops no murmurs Abdomen is soft nontender no organomegaly with normal bowel sounds Extremity exam reveals no edema no cyanosis or clubbing Neurological examination reveals no gross focal deficits Results CBC & Chem 7: 02/13/20 04:23 02/13/20 04:23 Labs: Abnormal Lab Results - Last 24 Hours (Table) 02/13/20 02/13/20 02/13/20 Range/Units 04:23 04:23 04:23 Hgb 10.8 L (11.4-16.0) gm/dL MCHC 30.7 L (31.0-37.0) g/dL Lymphocytes # 0.7 L (1.0-4.8) k/uL Monocytes # 1.2 H (0-1.0) k/uL APTT 21.9 L (22.0-30.0) sec Potassium 5.9 H (3.5-5.1) mmol/L Chloride 111 H (98-107) mmol/L BUN 42 H (7-17) mg/dL Creatinine 2.23 H (0.52-1.04) mg/dL Glucose 273 H (74-99) mg/dL POC Glucose (mg/dL) (75-99) mg/dL AST 38 H (14-36) U/L Troponin I (0.000-0.034) ng/mL Albumin 3.4 L (3.5-5.0) g/dL 02/13/20 02/13/20 02/13/20 Range/Units 04:23 11:29 11:35 Hgb (11.4-16.0) gm/dL MCHC (31.0-37.0) g/dL Lymphocytes # (1.0-4.8) k/uL Monocytes # (0-1.0) k/uL APTT 46.2 H (22.0-30.0) sec Potassium (3.5-5.1) mmol/L Chloride (98-107) mmol/L BUN (7-17) mg/dL Creatinine (0.52-1.04) mg/dL Glucose (74-99) mg/dL POC Glucose (mg/dL) 362 H (75-99) mg/dL AST (14-36) U/L Troponin I 0.176 H* (0.000-0.034) ng/mL Albumin (3.5-5.0) g/dL Thrombosis Risk Factor Assmnt - Choose All That Apply Any of the Below Risk Factors Present?: Yes Each Factor Represents 1 point: Heart failure (<1month), Obesity (BMI >25), Swollen legs (current) Each Risk Factor Represents 3 Points: Age 75 years or older Thrombosis Risk Factor Assessment Total Risk Factor Score: 6 Thrombosis Risk Factor Assessment Level: High Risk Assessment and Plan Plan: 1. Acute congestive heart failure exacerbation with pulmonary edema 2. Mild pleural effusion 3. Acute non-ST elevation myocardial infarction patient was started on IV hepari n 4. Underlying history of chronic kidney disease stage III 5. Underlying history of hypertension 6. Underlying history of coronary artery disease with history of coronary artery bypass graft surgery in 2000 7. Underlying history of diastolic congestive heart failure exacerbation her last echo cardiogram revealed normal ejection fraction 8. Underlying history of insulin-dependent diabetes mellitus 9. Underlying history of chronic obstructive pulmonary disease, with chronic hypoxic respiratory failure maintained on home oxygen 10. Underlying history of tobacco abuse 11. Underlying history of pacemaker placement 5 years ago 12. Underlying history of obstructive sleep apnea maintained on BiPAP at home At this time patient is maintained on IV heparin, inhaled bronchodilators She had BiPAP through the night Patient is feeling better at this time Nephrology consultation was requested for management of diuretics Pulmonary and cardiology consultation requested Prognosis is guarded due to age and multiple underlying conditions
[2020-02-13] MEDS: SODIUM BICARBONATE TAB 650 MG TAB PO SCH ×2 (15:35→21:45)
[2020-02-13] MEDS: FUROSEMIDE 10 MG/ML 2 ML VIAL IV SCH (15:35)
[2020-02-13] MEDS: IPRATROPIUM-ALBUTEROL 3 ML NEB INHALATION PRN ×2 (16:22→20:00)
[2020-02-13 16:43] LABS: Glucose,Whole Blood 343 mg/dL (75-99)
[2020-02-13 20:51] LABS: Glucose,Whole Blood 264 mg/dL (75-99)
[2020-02-13] MEDS ORDERED: ATORVASTATIN 10 MG TAB PO SCH (21:00)
[2020-02-13] MEDS: INSULIN DETEMIR (LEVEMIR) 100 UNIT/ML SYR SQ SCH (21:46)
[2020-02-13] MEDS ORDERED: TEMAZEPAM 30 MG CAP PO SCH (22:15)
[2020-02-14] MEDS: TEMAZEPAM 15 MG CAP PO SCH (00:16)
[2020-02-14] MEDS: HEPARIN SOD,PORK IN 0.45% NACL 25,000 UNIT in 0.45% NACL 1 250ML.BAG IV SCH (05:13)
[2020-02-14 06:08] LABS: Glucose,Whole Blood 129 mg/dL (75-99)
[2020-02-14 06:26] LABS: Basophils % (A) 0 %; Eosinophils # (A) 0.1 k/uL (0-0.7); Eosinophils % (A) 1 %; HCT 28.1 % (34.0-46.0); Hypochromasia Moderate; Lymphocytes # (A) 2.1 k/uL (1.0-4.8); Lymphocytes % (A) 23 %; MCH 28.9 pg (25.0-35.0); MCHC 31.4 g/dL (31.0-37.0); Mean Platelet Volume 8.7; Monocytes # (A) 1.2 k/uL (0-1.0); Monocytes % (A) 13 %; Neutrophils # (A) 5.5 k/uL (1.3-7.7); Neutrophils % (A) 60 %; Platelet Count 148 k/uL (150-450); RBC 3.05 m/uL (3.80-5.40); RDW 14.1 % (11.5-15.5); WBC 9.2 k/uL (3.8-10.6)
[2020-02-14 06:34] LABS: Albumin 2.5 g/dL (3.5-5.0); Calcium 7.9 mg/dL (8.4-10.2); Potassium 4.6 mmol/L (3.5-5.1); Total Bilirubin 0.3 mg/dL (0.2-1.3)
[2020-02-14] MEDS: INSULIN ASPART (NovoLOG) 100 UNIT/ML VIAL SQ SCH ×4 (06:37→21:33)
[2020-02-14] MEDS: CARVEDILOL 6.25 MG TAB PO SCH ×2 (06:40→16:55)
[2020-02-14 06:47] LABS: HGB 8.8 gm/dL (11.4-16.0)
[2020-02-14] MEDS: LOSARTAN 50 MG TAB PO SCH (09:35)
[2020-02-14] MEDS: CLOPIDOGREL 75 MG TAB PO SCH (09:36)
[2020-02-14] MEDS: ISOSORBIDE MONONITRATE ER 60 MG TAB.ER.24H PO SCH (09:36)
[2020-02-14] MEDS: SODIUM BICARBONATE TAB 650 MG TAB PO SCH ×4 (09:36→21:29)
[2020-02-14] MEDS: ASPIRIN 81 MG PO SCH (09:36)
--- NOTE | 2020-02-14 10:30 | P.PN ---
Subjective Patient is seen in follow-up for acute kidney injury on chronic kidney disease. Patient has chronic kidney disease stage IIIB/4 baseline creatinine in the range of 1.8-2. Renal function stable. Creatinine 2.11 today. She admits to good urine output. No vomiting or diarrhea. Denies chest pain. Dyspnea better. Vital signs are stable. General: The patient appeared well nourished and normally developed. HEENT: Head exam is unremarkable. Neck is without jugular venous distension. LUNGS: Lungs are clear to auscultation and percussion. Breath sounds decreased. HEART: Rate and Rhythm are regular. ABDOMEN: Soft, nontender. EXTREMITITES: 1+ edema. Objective - Vital Signs Vital signs: Vital Signs Temp 98.4 F 02/14/20 05:05 Pulse 61 02/14/20 05:05 Resp 18 02/14/20 05:05 BP 157/69 02/14/20 05:05 Pulse Ox 97 02/14/20 05:05 Intake & Output 02/13/20 02/14/20 02/14/20 18:59 06:59 18:59 Intake Total 270 463.836 280.419 Output Total 800 850 Balance -530 -386.164 280.419 Weight 96.615 kg 99.1 kg Intake: IV 30 Invasive Line 3 30 Intake, IV Titration 223.836 40.419 Amount Heparin Sod,Pork in 0.45% 223.836 40.419 NaCl 25,000 unit In 0.45 % NaCl 1 250ml.bag @ 10 UNITS/KG/HR 9.662 mls/hr IV .Q24H [facility] Rx#: [id number] Oral 240 240 240 Output: Urine 800 850 Other: Voiding Method Bedside Commode # Bowel Movements 0 - Labs CBC & Chem 7: 02/14/20 05:22 02/14/20 05:22 Labs: Abnormal Lab Results - Last 24 Hours (Table) 02/13/20 02/13/20 02/13/20 Range/Units 11:29 11:35 16:40 RBC (3.80-5.40) m/uL Hgb (11.4-16.0) gm/dL Hct (34.0-46.0) % Plt Count (150-450) k/uL Monocytes # (0-1.0) k/uL APTT 46.2 H (22.0-30.0) sec Chloride (98-107) mmol/L BUN (7-17) mg/dL Creatinine (0.52-1.04) mg/dL Glucose (74-99) mg/dL POC Glucose (mg/dL) 362 H 343 H (75-99) mg/dL Calcium (8.4-10.2) mg/dL Total Protein (6.3-8.2) g/dL Albumin (3.5-5.0) g/dL 02/13/20 02/14/20 02/14/20 Range/Units 20:49 05:22 05:22 RBC 3.05 L (3.80-5.40) m/uL Hgb 8.8 L D (11.4-16.0) gm/dL Hct 28.1 L (34.0-46.0) % Plt Count 148 L (150-450) k/uL Monocytes # 1.2 H (0-1.0) k/uL APTT (22.0-30.0) sec Chloride 110 H (98-107) mmol/L BUN 52 H (7-17) mg/dL Creatinine 2.11 H (0.52-1.04) mg/dL Glucose 117 H (74-99) mg/dL POC Glucose (mg/dL) 264 H (75-99) mg/dL Calcium 7.9 L (8.4-10.2) mg/dL Total Protein 5.0 L (6.3-8.2) g/dL Albumin 2.5 L (3.5-5.0) g/dL 02/14/20 02/14/20 Range/Units 05:22 06:06 RBC (3.80-5.40) m/uL Hgb (11.4-16.0) gm/dL Hct (34.0-46.0) % Plt Count (150-450) k/uL Monocytes # (0-1.0) k/uL APTT 37.7 H (22.0-30.0) sec Chloride (98-107) mmol/L BUN (7-17) mg/dL Creatinine (0.52-1.04) mg/dL Glucose (74-99) mg/dL POC Glucose (mg/dL) 129 H (75-99) mg/dL Calcium (8.4-10.2) mg/dL Total Protein (6.3-8.2) g/dL Albumin (3.5-5.0) g/dL Assessment and Plan Plan: Assessment: 1. Acute kidney injury mostly prerenal secondary to cardiorenal syndrome. Renal function stable. Creatinine 2.11 today. 2. Chronic kidney disease stage IIIB/4 with baseline creatinine in the range of 1.8 to secondary to diabetic kidney disease. Serologies were negative outpatient. 3. Hyperkalemia secondary to acute kidney injury as well as losartan. Improve d. 4. Volume overload. 5. Hypertension with chronic kidney disease. 6. Insulin-dependent diabetes mellitus. 7. Mild metabolic acidosis secondary to acute kidney injury maintained on oral bicarb. 8. Acute on chronic diastolic CHF with moderate mitral regurgitation. Plan: Increase Lasix to 40 mg IV twice daily. Strict I's and O's. Avoid nephrotoxins. Repeat electrolytes in the morning. Monitor renal function, potassium level and bicarb.
[2020-02-14 11:52] LABS: Glucose,Whole Blood 195 mg/dL (75-99)
--- NOTE | 2020-02-14 11:55 | CONS ---
CONSULTATION Mrs. Avery is an 80-year-old female who presented to [facility] and subsequently transferred with symptoms of progressive dyspnea. The patient was in the hospital in November. She has a known history of coronary artery disease status post coronary artery bypass grafting in 2000, history of permanent pacemaker implantation, who follows in with a skate boarder in [place]. In November of this year, she presented with non ST-segment elevation myocardial infarction and symptoms of dyspnea and at that time, a discussion was made with her regarding coronary angiography. Patient declined to have any procedure done because of her history of renal function, did not want to have any procedure. According to her, yesterday she became quite dyspneic, suddenly came into the emergency room and subsequently admitted. She has not been taking diuretics at home, has gained peripheral has study had progressive worsening of peripheral edema. No clear PND. She denies any pressure on the chest. She denies any dizziness, palpitation, or syncope. She feels tired at this point. Her echocardiogram during her last admission has revealed an ejection fraction of 50% to 55% with moderate mitral regurgitation and no evidence of pulmonary hypertension. She has a history of chronic obstructive lung disease and a history of chronic kidney disease. MEDICATIONS: At home included furosemide on a p.r.n. basis. She has not been taking Zocor 5 mg daily, losartan 100 mg daily, isosorbide mononitrate 30 mg daily, insulin, Plavix 75 mg daily, aspirin once a day, Coreg 6.5 mg twice a day and insulin. REVIEW OF SYSTEMS: RESPIRATORY SYSTEM: She has dyspnea on exertion. She has history of chronic obstructive lung disease. No recent wheezing. GI SYSTEM: She denies any recent GI bleeding no peptic ulcer disease. SYSTEM: No dysuria or hematuria. NERVOUS SYSTEM: No history of seizure. PHYSICAL EXAMINATION: She is an 80-year-old female, alert, oriented, no apparent distress. Blood pressure running in the 150s, was in the 200 on presentation. HEAD: Normocephalic eyes sclerae anicteric neck no bruit lungs with few crackles at the bases with rales. HEART: Regular S1, S2. No S3 with systolic ejection murmur 2/6 at the base no diastolic murmur. ABDOMEN: Soft, nontender, obese. Positive bowel sounds, no organomegaly. EXTREMITIES: +1 to 2 edema bilaterally. LAB DATA: Revealed a hemoglobin of 8.8, which was slightly higher on presentation in November. Her BUN and creatinine 52 and 2.1, which appears to be in the same range. Her troponin of 0.176. She was up to 3.6 last admission. Her NT proBNP is 20,800, she was 21,000 the last time. Her the EKG revealed evidence of paced ventricular pacing with sinus mechanism. Her chest x-ray shows evidence of fluid overload and congestive heart failure. IMPRESSION: 1. Symptoms of progressive dyspnea consistent with congestive heart failure with diastolic dysfunction with probable element of underlying ischemia. 2. History of coronary artery disease, status post coronary artery bypass grafting with prior non ST-segment elevation myocardial infarction in November. Of note, the patient declined any coronary angiography. 3. Status post coronary artery bypass grafting in 2000. 4. History of hypertension. 5. Hyperlipidemia. 6. Chronic kidney disease. 7. Diabetes mellitus. RECOMMENDATION: From the cardiac standpoint, I will continue the diuretics, adjust her antihypertensive regimen and depending on her progress, further recommendation will be made. Thank you for this consult. Will follow with you. MMODL / IJN: [id number] /
[2020-02-14] MEDS: IPRATROPIUM-ALBUTEROL 3 ML NEB INHALATION PRN ×3 (12:15→20:18)
--- NOTE | 2020-02-14 14:08 | P.PN ---
Subjective Progress Note Date: 02/14/20 Principal diagnosis: acute exacerbation of chronic CHF, acute non-ST elevated OK his is an 80-year-old female patient with known history of COPD, diastolic heart failure, chronic kidney disease stage III, hypertension, CAD with previous bypass surgery more than 20 years ago, diabetes mellitus, hypertension and hyperlipidemia and history of placement pacemaker insertion 2014 along with obstructive sleep apnea and obesity with a BMI of 34.4 This patient came into the hospital yesterday because of worsening shortness of breath. She has been having increased lower extremity edema. She has been having exertional dyspnea. No significant cough sputum production. No chest t ightness. No wheezing. No angina. No previous history of DVT or pulmonary embolism. The patient was concerned about her renal function and she has been taken her torsemide diuretic on a regular basis and she's been doing good probably once or twice a week. During this current admission, her creatinine is at 2.2 which is slightly lower compared to her baseline. BUN is at 42. She has a troponin leak with troponin level of 0.176 and a proBNP level of 20,008 100. The blood sugar is at 273. Potassium level is at 5.9. She was started on IV heparin and the EKG showed a paced rhythm. History of any chest pain for now. Cardiology consultation is still pending for now. Meanwhile, the patient was not given any diuretics based on her ongoing concern. She did consult with nephrology prior to doing so. I noted that her blood pressure was slightly elevated and it resumed her Coreg and hydralazine for now. She is awake and alert and she has no specific complaint otherwise. On 02/09/2020 patient seen in follow-up on selective care unit, she is awake and alert, in no acute distress. patient is currently on 4 L of oxygen, her pulse ox is around 97-98%. her breathing is improving, patient is less dyspneic, she is wearing BiPAP iat bedtime, currently with pressures of 12/5, and FiO2 of 40%. patient is on IV Lasix 40 mg every 12 hours, and she is in negative fluid balance over the last 24 hours. nephrology is following, today's labs have been reviewed, showing slightly improved renal profile, with B1 of 52, and creatinine is 2.11. Admission proBNP was 20,008 100, patient had elevation of troponins of 0.176, cardiology is following. She is being medically treated. Patient had hypertensive urgency on admission, her blood pressure is much better controlled, her blood pressure is 150/69. Objective - Vital Signs Vital signs: Vital Signs Temp 97.6 F 02/14/20 12:00 Pulse 72 02/14/20 12:27 Resp 19 02/14/20 08:00 BP 158/69 02/14/20 12:00 Pulse Ox 98 02/14/20 12:00 Intake & Output 02/13/20 02/14/20 02/14/20 18:59 06:59 18:59 Intake Total 270 463.836 400.419 Output Total 800 850 400 Balance -530 -386.164 0.419 Weight 96.615 kg 99.1 kg Intake: IV 30 Invasive Line 3 30 Intake, IV Titration 223.836 40.419 Amount Heparin Sod,Pork in 0.45% 223.836 40.419 NaCl 25,000 unit In 0.45 % NaCl 1 250ml.bag @ 10 UNITS/KG/HR 9.662 mls/hr IV .Q24H [facility] Rx#: [id number] Oral 240 240 360 Output: Urine 800 850 400 Other: Voiding Method Bedside Commode # Voids 1 # Bowel Movements 0 - Exam GENERAL EXAM: Alert, very pleasant, 80-year-old white female, on 4 L of oxygen with a pulse ox of 98%, comfortable in no apparent distress. HEAD: Normocephalic/atraumatic. EYES: Normal reaction of pupils, equal size. Conjunctiva pink, sclera white. NOSE: Clear with pink turbinates. THROAT: No erythema or exudates. NECK: No masses, no JVD, no thyroid enlargement, no adenopathy. CHEST: No chest wall deformity. Symmetrical expansion. LUNGS: Equal air entry with no crackles, wheeze, rhonchi or dullness. CVS: Regular rate and rhythm, normal S1 and S2, no gallops, no murmurs, no rubs ABDOMEN: Soft, nontender. No hepatosplenomegaly, normal bowel sounds, no guarding or rigidity. EXTREMITIES: No clubbing, no edema, no cyanosis, 2+ pulses and upper and lower extremities. MUSCULOSKELETAL: Muscle strength and tone normal. SPINE: No scoliosis or deformity SKIN: No rashes CENTRAL NERVOUS SYSTEM: Alert and oriented -3. No focal deficits, tone is normal in all 4 extremities. PSYCHIATRIC: Alert and oriented -3. Appropriate affect. Intact judgment and insight. - Labs CBC & Chem 7: 02/14/20 05:22 02/14/20 05:22 Labs: Abnormal Lab Results - Last 24 Hours (Table) 02/13/20 02/13/20 02/14/20 Range/Units 16:40 20:49 05:22 RBC 3.05 L (3.80-5.40) m/uL Hgb 8.8 L D (11.4-16.0) gm/dL Hct 28.1 L (34.0-46.0) % Plt Count 148 L (150-450) k/uL Monocytes # 1.2 H (0-1.0) k/uL APTT (22.0-30.0) sec Chloride (98-107) mmol/L BUN (7-17) mg/dL Creatinine (0.52-1.04) mg/dL Glucose (74-99) mg/dL POC Glucose (mg/dL) 343 H 264 H (75-99) mg/dL Calcium (8.4-10.2) mg/dL Total Protein (6.3-8.2) g/dL Albumin (3.5-5.0) g/dL 02/14/20 02/14/20 02/14/20 Range/Units 05:22 05:22 06:06 RBC (3.80-5.40) m/uL Hgb (11.4-16.0) gm/dL Hct (34.0-46.0) % Plt Count (150-450) k/uL Monocytes # (0-1.0) k/uL APTT 37.7 H (22.0-30.0) sec Chloride 110 H (98-107) mmol/L BUN 52 H (7-17) mg/dL Creatinine 2.11 H (0.52-1.04) mg/dL Glucose 117 H (74-99) mg/dL POC Glucose (mg/dL) 129 H (75-99) mg/dL Calcium 7.9 L (8.4-10.2) mg/dL Total Protein 5.0 L (6.3-8.2) g/dL Albumin 2.5 L (3.5-5.0) g/dL 02/14/20 Range/Units 11:51 RBC (3.80-5.40) m/uL Hgb (11.4-16.0) gm/dL Hct (34.0-46.0) % Plt Count (150-450) k/uL Monocytes # (0-1.0) k/uL APTT (22.0-30.0) sec Chloride (98-107) mmol/L BUN (7-17) mg/dL Creatinine (0.52-1.04) mg/dL Glucose (74-99) mg/dL POC Glucose (mg/dL) 195 H (75-99) mg/dL Calcium (8.4-10.2) mg/dL Total Protein (6.3-8.2) g/dL Albumin (3.5-5.0) g/dL Assessment and Plan Plan: 1. Shortness of breath likely on the basis of CHF exacerbation/fluid overload, with diastolic dysfunction The patient has pulmonary asked her congestion/edema on her chest x-ray in addition to that she has a elevated proBNP level and increased edema in lower extremities is bilaterally. All these findings are supporting CHF/fluid overload. Furthermore, the patient has been not taking her diuretics are regular basis due to concern of renal insufficiency as the patient has chronic kidney disease. 2. Acute non-ST elevated myocardial infarction, currently the patient is on IV heparin. The patient has been fairly of any chest pain. EKGs is paced rhythm and the patient is being seen by cardiology. 3. Hypertension, and the blood pressure is under poor control 4. Diastolic heart failure 5. chronic kidney disease, stage III 6. History of coronary artery disease status post bypass grafting 19 years ago 7. History of CHF with diastolic dysfunction, echocardiogram showed low normal EF of 50-55% moderate mitral regurgitation, trace tricuspid regurg, PA systolic of less than 35 mmHg, normal inferior vena cava with normal inspiratory collapse an estimated right atrial pressure of 5 mmHg 8. Diabetes mellitus 9. Chronic smoker, carries 50 years of smoking of less than a pack a day, and more recently started vaping in an attempt to quit smoking 10. Oxygen dependent COPD, not consistently compliant with oxygen 11. Hypertension 12. Hyperlipidemia 13. Permanent pacemaker insertion in 2014 14. Obesity, with history of lap band 15. Obstructive sleep apnea on BiPAP machine Plan: Continue with IV diuretics, continue medical management, patient is breathing easier, we'll obtain follow-up chest x-ray tomorrow, weaning FiO2, accurate intake and output and daily electrolytes and renal profile. BiPAP support at night and as needed during the day. We'll continue to follow I performed a history & physical examination of the patient and discussed their management with my nurse practitioner, Marylu Lovelace. I reviewed the nurse practitioner's note and agree with the documented findings and plan of care. Lung sounds are positive for bibasilar crackles. The findings and the impression was discussed with the patient. I attest to the documentation by the nurse practitioner. Time with Patient: Less than 30
[2020-02-14] MEDS ORDERED: FUROSEMIDE 10 MG/ML 2 ML VIAL IV SCH ×2 (16:00→21:00)
[2020-02-14 16:39] LABS: Glucose,Whole Blood 231 mg/dL (75-99)
[2020-02-14] MEDS ORDERED: ARTIFICIAL TEARS-HYPROMELLOSE DROPS 15 ML BTL BOTH EYES PRN (16:51)
[2020-02-14] MEDS: hydrALAZINE HCL 50 MG TAB PO SCH ×2 (16:55→21:34)
--- NOTE | 2020-02-14 17:29 | P.PN ---
Subjective Progress Note Date: 02/14/20 Elza Avery is an 80-year-old female, patient of Dr. 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 During her transfer patient had episode of chest pain and shortness of breath in the ambulance, upon arrival to the hospital she was started on BiPAP. Pulmonary consultation cardiology consultation and nephrology consultations were initiated. Patient was admitted to telemetry floor, troponin level was elevated at 0.176, BNP was elevated at 20,800, patient was started on IV heparin. Home medications were reordered including diuretics. Objective - Vital Signs Vital signs: Vital Signs Temp 98.1 F 02/14/20 17:21 Pulse 95 02/14/20 17:21 Resp 16 02/14/20 17:21 BP 118/67 02/14/20 17:21 Pulse Ox 98 02/14/20 17:21 Intake & Output 02/13/20 02/14/20 02/14/20 18:59 06:59 18:59 Intake Total 270 463.836 400.419 Output Total 800 850 700 Balance -530 -386.164 -299.581 Weight 96.615 kg 99.1 kg Intake: IV 30 Invasive Line 3 30 Intake, IV Titration 223.836 40.419 Amount Heparin Sod,Pork in 0.45% 223.836 40.419 NaCl 25,000 unit In 0.45 % NaCl 1 250ml.bag @ 10 UNITS/KG/HR 9.662 mls/hr IV .Q24H [facility] Rx#: [id number] Oral 240 240 360 Output: Urine 800 850 700 Other: Voiding Method Bedside Commode # Voids 1 # Bowel Movements 0 - Exam At this time patient is alert and oriented 3 in no apparent distress HEENT head normocephalic and atraumatic Neck is supple no JVD no goiter no lymphadenopathy Chest exam reveals a few scattered rhonchi no wheezing Cardiac exam reveals regular heart sounds S1 and S2 no gallops no murmurs Abdomen is soft nontender no organomegaly with normal bowel sounds Extremity exam reveals no edema no cyanosis or clubbing Neurological examination reveals no gross focal deficits - Labs CBC & Chem 7: 02/14/20 05:22 02/14/20 05:22 Labs: Abnormal Lab Results - Last 24 Hours (Table) 02/13/20 02/14/20 02/14/20 Range/Units 20:49 05:22 05:22 RBC 3.05 L (3.80-5.40) m/uL Hgb 8.8 L D (11.4-16.0) gm/dL Hct 28.1 L (34.0-46.0) % Plt Count 148 L (150-450) k/uL Monocytes # 1.2 H (0-1.0) k/uL APTT (22.0-30.0) sec Chloride 110 H (98-107) mmol/L BUN 52 H (7-17) mg/dL Creatinine 2.11 H (0.52-1.04) mg/dL Glucose 117 H (74-99) mg/dL POC Glucose (mg/dL) 264 H (75-99) mg/dL Calcium 7.9 L (8.4-10.2) mg/dL Total Protein 5.0 L (6.3-8.2) g/dL Albumin 2.5 L (3.5-5.0) g/dL 02/14/20 02/14/20 02/14/20 Range/Units 05:22 06:06 11:51 RBC (3.80-5.40) m/uL Hgb (11.4-16.0) gm/dL Hct (34.0-46.0) % Plt Count (150-450) k/uL Monocytes # (0-1.0) k/uL APTT 37.7 H (22.0-30.0) sec Chloride (98-107) mmol/L BUN (7-17) mg/dL Creatinine (0.52-1.04) mg/dL Glucose (74-99) mg/dL POC Glucose (mg/dL) 129 H 195 H (75-99) mg/dL Calcium (8.4-10.2) mg/dL Total Protein (6.3-8.2) g/dL Albumin (3.5-5.0) g/dL 02/14/20 Range/Units 16:37 RBC (3.80-5.40) m/uL Hgb (11.4-16.0) gm/dL Hct (34.0-46.0) % Plt Count (150-450) k/uL Monocytes # (0-1.0) k/uL APTT (22.0-30.0) sec Chloride (98-107) mmol/L BUN (7-17) mg/dL Creatinine (0.52-1.04) mg/dL Glucose (74-99) mg/dL POC Glucose (mg/dL) 231 H (75-99) mg/dL Calcium (8.4-10.2) mg/dL Total Protein (6.3-8.2) g/dL Albumin (3.5-5.0) g/dL Assessment and Plan Plan: 1. Acute congestive heart failure exacerbation with pulmonary edema 2. Mild pleural effusion 3. Acute non-ST elevation myocardial infarction patient was started on IV heparin, IV heparin is off at this time patient is maintained on aspirin and Plavix cardiology are following 4. Underlying history of chronic kidney disease stage III 5. Underlying history of hypertension 6. Underlying history of coronary artery disease with history of coronary artery bypass graft surgery in 2000 7. Underlying history of diastolic congestive heart failure exacerbation her last echo cardiogram revealed normal ejection fraction 8. Underlying history of insulin-dependent diabetes mellitus 9. Underlying history of chronic obstructive pulmonary disease, with chronic hypoxic respiratory failure maintained on home oxygen 10. Underlying history of tobacco abuse 11. Underlying history of pacemaker placement 5 years ago 12. Underlying history of obstructive sleep apnea maintained on BiPAP at home 13. Anemia hemoglobin dropped today to 8.8 will monitor closely, check stools for Hemoccult At this time patient is maintained on IV heparin, inhaled bronchodilators She had BiPAP through the night Patient is feeling better at this time Nephrology consultation was requested for management of diuretics Pulmonary and cardiology consultation requested Prognosis is guarded due to age and multiple underlying conditions
[2020-02-14 20:41] LABS: Glucose,Whole Blood 261 mg/dL (75-99)
[2020-02-14] MEDS: FUROSEMIDE 10 MG/ML 4 ML VIAL IV SCH (21:29)
[2020-02-14] MEDS: ATORVASTATIN 40 MG TAB PO SCH (21:29)
[2020-02-14] MEDS: INSULIN DETEMIR (LEVEMIR) 100 UNIT/ML SYR SQ SCH (21:34)
[2020-02-14] MEDS: hydrALAZINE HCL 25 MG TAB PO SCH (23:34)
[2020-02-14] MEDS: FUROSEMIDE 10 MG/ML 2 ML VIAL IV SCH (23:34)
[2020-02-15] MEDS: TEMAZEPAM 15 MG CAP PO SCH ×2 (00:14→23:06)
[2020-02-15 02:11] LABS: Glucose,Whole Blood 202 mg/dL (75-99)
[2020-02-15 06:10] LABS: Glucose,Whole Blood 149 mg/dL (75-99)
[2020-02-15] MEDS: CARVEDILOL 6.25 MG TAB PO SCH ×2 (07:03→16:59)
[2020-02-15] MEDS: INSULIN ASPART (NovoLOG) 100 UNIT/ML VIAL SQ SCH ×4 (07:03→21:11)
[2020-02-15 07:36] LABS: Albumin 2.6 g/dL (3.5-5.0); Potassium 4.8 mmol/L (3.5-5.1); Total Bilirubin 0.3 mg/dL (0.2-1.3); Total Protein 5.1 g/dL (6.3-8.2)
[2020-02-15 07:37] LABS: HCT 28.8 % (34.0-46.0); HGB 9.1 gm/dL (11.4-16.0); Hypochromasia Slight; MCH 28.9 pg (25.0-35.0); MCHC 31.4 g/dL (31.0-37.0); MCV 92.2 fL (80.0-100.0); Mean Platelet Volume 8.6; Platelet Count 163 k/uL (150-450); RBC 3.13 m/uL (3.80-5.40); RDW 14.2 % (11.5-15.5); WBC 7.9 k/uL (3.8-10.6)
[2020-02-15] MEDS: IPRATROPIUM-ALBUTEROL 3 ML NEB INHALATION PRN ×3 (08:39→20:16)
[2020-02-15] MEDS: ASPIRIN 81 MG PO SCH (09:34)
[2020-02-15] MEDS: CLOPIDOGREL 75 MG TAB PO SCH (09:34)
[2020-02-15] MEDS: hydrALAZINE HCL 50 MG TAB PO SCH ×3 (09:35→21:12)
[2020-02-15] MEDS: SODIUM BICARBONATE TAB 650 MG TAB PO SCH ×4 (09:38→21:12)
[2020-02-15] MEDS: LOSARTAN 50 MG TAB PO SCH (09:39)
[2020-02-15] MEDS: ISOSORBIDE MONONITRATE ER 60 MG TAB.ER.24H PO SCH (09:41)
[2020-02-15] MEDS: guaiFENesin 600 MG TABLET.ER PO PRN ×2 (09:47→21:12)
--- NOTE | 2020-02-15 10:21 | XR ---
EXAMINATION TYPE: XR chest 2V DATE OF EXAM: 02/15/2020 COMPARISON: Prior chest x-ray 02/13/2020 HISTORY: Follow-up, abnormal chest x-ray, congestive heart failure TECHNIQUE: Frontal and lateral views of the chest are obtained. FINDINGS: There is some improvement in the aeration within the lung. No evident pneumothorax. There is blunting of the left cosmetic angle. Patient is post median sternotomy and the heart remains enlar ged. Generators in the left pectoral region, there are leads in the right atrium and ventricle are ag ain noted. Aorta is dense. Biapical pleural thickening is again noted. Catheter is overlying the left upper quadrant. IMPRESSION: Improved aeration, volume status.
[2020-02-15] MEDS: FUROSEMIDE 10 MG/ML 4 ML VIAL IV SCH (11:00)
[2020-02-15 11:18] LABS: Eosinophils # (M) 0.24 k/uL (0-0.7); Lymphocytes # (M) 1.82 k/uL (1.0-4.8); Monocytes # (M) 0.32 k/uL (0-1.0); Neutrophils # (M) 5.53 k/uL (1.3-7.7); Neutrophils % (M) 70 %; Nucleated Red Blood Cells 0 /100 WBC (0-0); Total Cells Counted 100
[2020-02-15 11:19] LABS: Anisocytosis (M) Present; Poikilocytosis (M) Present
[2020-02-15 11:34] LABS: Glucose,Whole Blood 213 mg/dL (75-99)
--- NOTE | 2020-02-15 12:08 | P.PN ---
Subjective Patient is seen in follow-up for acute kidney injury on chronic kidney disease. Patient has chronic kidney disease stage IIIB/4 baseline creatinine in the range of 1.8-2. Renal function a little worse today due to diuresis. Creatinine 2.46 today. She admits to good urine output. No vomiting or diarrhea. Denies chest pain. Dyspnea better. Edema improved. Vital signs are stable. General: The patient appeared well nourished and normally developed. HEENT: Head exam is unremarkable. Neck is without jugular venous distension. LUNGS: Lungs are clear to auscultation and percussion. Breath sounds decreased. HEART: Rate and Rhythm are regular. ABDOMEN: Soft, nontender. EXTREMITITES: Trace edema. Objective - Vital Signs Vital signs: Vital Signs Temp 98.3 F 02/15/20 08:23 Pulse 64 02/15/20 10:58 Resp 16 02/15/20 10:58 BP 156/71 02/15/20 10:58 Pulse Ox 96 02/15/20 10:58 Intake & Output 02/14/20 02/15/20 02/15/20 18:59 06:59 18:59 Intake Total 520.419 120 Output Total 700 1974 Balance -179.581 -1974 120 Weight 98.8 kg Intake: Intake, IV Titration 40.419 Amount Heparin Sod,Pork in 0.45% 40.419 NaCl 25,000 unit In 0.45 % NaCl 1 250ml.bag @ 10 UNITS/KG/HR 9.662 mls/hr IV .Q24H [facility] Rx#: [id number] Oral 480 120 Output: Urine 700 1974 Other: Voiding Method Bedside Commode # Voids 1 3 0 - Labs CBC & Chem 7: 02/15/20 06:21 02/15/20 06:21 Labs: Abnormal Lab Results - Last 24 Hours (Table) 02/14/20 02/14/20 02/14/20 Range/Units 11:51 16:37 20:39 RBC (3.80-5.40) m/uL Hgb (11.4-16.0) gm/dL Hct (34.0-46.0) % Chloride (98-107) mmol/L BUN (7-17) mg/dL Creatinine (0.52-1.04) mg/dL Glucose (74-99) mg/dL POC Glucose (mg/dL) 195 H 231 H 261 H (75-99) mg/dL Calcium (8.4-10.2) mg/dL Total Protein (6.3-8.2) g/dL Albumin (3.5-5.0) g/dL 02/15/20 02/15/20 02/15/20 Range/Units 02:09 06:08 06:21 RBC 3.13 L (3.80-5.40) m/uL Hgb 9.1 L (11.4-16.0) gm/dL Hct 28.8 L (34.0-46.0) % Chloride (98-107) mmol/L BUN (7-17) mg/dL Creatinine (0.52-1.04) mg/dL Glucose (74-99) mg/dL POC Glucose (mg/dL) 202 H 149 H (75-99) mg/dL Calcium (8.4-10.2) mg/dL Total Protein (6.3-8.2) g/dL Albumin (3.5-5.0) g/dL 02/15/20 02/15/20 Range/Units 06:21 11:31 RBC (3.80-5.40) m/uL Hgb (11.4-16.0) gm/dL Hct (34.0-46.0) % Chloride 109 H (98-107) mmol/L BUN 58 H (7-17) mg/dL Creatinine 2.46 H (0.52-1.04) mg/dL Glucose 127 H (74-99) mg/dL POC Glucose (mg/dL) 213 H (75-99) mg/dL Calcium 8.0 L (8.4-10.2) mg/dL Total Protein 5.1 L (6.3-8.2) g/dL Albumin 2.6 L (3.5-5.0) g/dL Assessment and Plan Plan: Assessment: 1. Acute kidney injury mostly prerenal secondary to cardiorenal syndrome. Renal function worse due to diuresis. Creatinine 2. 46 today. 2. Chronic kidney disease stage IIIB/4 with baseline creatinine in the range of 1.8 to secondary to diabetic kidney disease. Serologies were negative outpatient. 3. Hyperkalemia secondary to acute kidney injury as well as losartan. Improved. 4. Volume overload. Improved. 5. Hypertension with chronic kidney disease. 6. Insulin-dependent diabetes mellitus. 7. Mild metabolic acidosis secondary to acute kidney injury maintained on oral bicarb. 8. Acute on chronic diastolic CHF with moderate mitral regurgitation. Plan: Agree with decreasing Lasix to 40 mg IV once daily. Can change to oral torsemide tomorrow. Avoid nephrotoxins. Repeat electrolytes in the morning.
--- NOTE | 2020-02-15 12:20 | PN ---
PROGRESS NOTE Mrs. Avery is an 80-year-old female with known history of coronary artery disease, status post coronary artery bypass grafting, history of chronic kidney disease, who presented with symptoms of progressive dyspnea and evidence of congestive heart failure. She is feeling better today. Her breathing is better. She denies any chest pain. She denies any dizziness. She has been evaluated by Dr. Landrum as well as by Dr. Saenz. She continues on aspirin once a day, Lipitor 40 mg daily, carvedilol 6.25 mg twice a day, Plavix 75 mg daily, Lasix 40 mg IV q.12 hours, hydralazine 100 mg 3 times a day, isosorbide mononitrate 60 mg daily, losartan 100 mg daily, sodium bicarb. PHYSICAL EXAMINATION: Blood pressure running in the 140s to 150s with a heart rate in the 60s. LUNGS: Clear. HEART: Regular rate and rhythm, S1, S2. No S3 with a systolic murmur. ABDOMEN: Soft, nontender. EXTREMITIES: +1 edema bilaterally. LAB DATA: Revealed hemoglobin 9.1, BUN and creatinine 58 and 2.46. She is -2 L over 24 hours. IMPRESSION: 1. CHF improving. 2. Status post coronary artery bypass grafting. 3. Chronic kidney disease. 4. History of hypertension. 5. History of hyperlipidemia. RECOMMENDATION: Will cut down the dose of her IV Lasix to once a day. Follow her renal function closely, increase her level of activity. Follow her blood pressure and depending on her progress, further recommendation will be made. MMODL / IJN: [id number] /
--- NOTE | 2020-02-15 12:28 | P.PN ---
Subjective Progress Note Date: 02/15/20 Principal diagnosis: acute exacerbation of chronic CHF, acute non-ST elevated RI his is an 80-year-old female patient with known history of COPD, diastolic heart failure, chronic kidney disease stage III, hypertension, CAD with previous bypass surgery more than 20 years ago, diabetes mellitus, hypertension and hyperlipidemia and history of placement pacemaker insertion 2014 along with obstructive sleep apnea and obesity with a BMI of 34.4 This patient came into the hospital yesterday because of worsening shortness of breath. She has been having increased lower extremity edema. She has been having exertional dyspnea. No significant cough sputum production. No chest t ightness. No wheezing. No angina. No previous history of DVT or pulmonary embolism. The patient was concerned about her renal function and she has been taken her torsemide diuretic on a regular basis and she's been doing good probably once or twice a week. During this current admission, her creatinine is at 2.2 which is slightly lower compared to her baseline. BUN is at 42. She has a troponin leak with troponin level of 0.176 and a proBNP level of 20,008 100. The blood sugar is at 273. Potassium level is at 5.9. She was started on IV heparin and the EKG showed a paced rhythm. History of any chest pain for now. Cardiology consultation is still pending for now. Meanwhile, the patient was not given any diuretics based on her ongoing concern. She did consult with nephrology prior to doing so. I noted that her blood pressure was slightly elevated and it resumed her Coreg and hydralazine for now. She is awake and alert and she has no specific complaint otherwise. On 02/09/2020 patient seen in follow-up on selective care unit, she is awake and alert, in no acute distress. patient is currently on 4 L of oxygen, her pulse ox is around 97-98%. her breathing is improving, patient is less dyspneic, she is wearing BiPAP iat bedtime, currently with pressures of 12/5, and FiO2 of 40%. patient is on IV Lasix 40 mg every 12 hours, and she is in negative fluid balance over the last 24 hours. nephrology is following, today's labs have been reviewed, showing slightly improved renal profile, with B1 of 52, and creatinine is 2.11. Admission proBNP was 20,008 100, patient had elevation of troponins of 0.176, cardiology is following. She is being medically treated. Patient had hypertensive urgency on admission, her blood pressure is much better controlled, her blood pressure is 150/69. On 02/15/2020 patient seen in follow-up on selective care unit, she is resting comfortably in bed, in no acute distress, she is feeling better, still has some residual scattered wheezes, but overall less bronchospastic, chest x-ray is showing improvement in aeration and volume status. Patient has been on IV diuretics, and she is in -2.1 L net fluid balance over the last 24 hours. Kiya hedrick's labs have been reviewed, showing white blood cell, 7.9, hemoglobin of 9.1, sodium is 137, potassium is 4.8, chloride is 109, CO2 is 25, BUN is 58, creatinine is 2.46. Objective - Vital Signs Vital signs: Vital Signs Temp 98.3 F 02/15/20 08:23 Pulse 64 02/15/20 10:58 Resp 16 02/15/20 10:58 BP 156/71 02/15/20 10:58 Pulse Ox 96 02/15/20 10:58 Intake & Output 02/14/20 02/15/20 02/15/20 18:59 06:59 18:59 Intake Total 520.419 120 Output Total 700 1974 Balance -179.581 -1974 120 Weight 98.8 kg Intake: Intake, IV Titration 40.419 Amount Heparin Sod,Pork in 0.45% 40.419 NaCl 25,000 unit In 0.45 % NaCl 1 250ml.bag @ 10 UNITS/KG/HR 9.662 mls/hr IV .Q24H [facility] Rx#: [id number] Oral 480 120 Output: Urine 700 1974 Other: Voiding Method Bedside Commode # Voids 1 3 0 - Exam GENERAL EXAM: Alert, very pleasant, 80-year-old white female, on 4 L of oxygen with a pulse ox of 96%, comfortable in no apparent distress. HEAD: Normocephalic/atraumatic. EYES: Normal reaction of pupils, equal size. Conjunctiva pink, sclera white. NOSE: Clear with pink turbinates. THROAT: No erythema or exudates. NECK: No masses, no JVD, no thyroid enlargement, no adenopathy. CHEST: No chest wall deformity. Symmetrical expansion. LUNGS: Equal air entry with no crackles, wheeze, rhonchi or dullness. CVS: Regular rate and rhythm, normal S1 and S2, no gallops, no murmurs, no rubs ABDOMEN: Soft, nontender. No hepatosplenomegaly, normal bowel sounds, no guarding or rigidity. EXTREMITIES: No clubbing, no edema, no cyanosis, 2+ pulses and upper and lower extremities. MUSCULOSKELETAL: Muscle strength and tone normal. SPINE: No scoliosis or deformity SKIN: No rashes CENTRAL NERVOUS SYSTEM: Alert and oriented -3. No focal deficits, tone is normal in all 4 extremities. PSYCHIATRIC: Alert and oriented -3. Appropriate affect. Intact judgment and insight. - Labs CBC & Chem 7: 02/15/20 06:21 02/15/20 06:21 Labs: Abnormal Lab Results - Last 24 Hours (Table) 02/14/20 02/14/20 02/15/20 Range/Units 16:37 20:39 02:09 RBC (3.80-5.40) m/uL Hgb (11.4-16.0) gm/dL Hct (34.0-46.0) % Chloride (98-107) mmol/L BUN (7-17) mg/dL Creatinine (0.52-1.04) mg/dL Glucose (74-99) mg/dL POC Glucose (mg/dL) 231 H 261 H 202 H (75-99) mg/dL Calcium (8.4-10.2) mg/dL Total Protein (6.3-8.2) g/dL Albumin (3.5-5.0) g/dL 02/15/20 02/15/20 02/15/20 Range/Units 06:08 06:21 06:21 RBC 3.13 L (3.80-5.40) m/uL Hgb 9.1 L (11.4-16.0) gm/dL Hct 28.8 L (34.0-46.0) % Chloride 109 H (98-107) mmol/L BUN 58 H (7-17) mg/dL Creatinine 2.46 H (0.52-1.04) mg/dL Glucose 127 H (74-99) mg/dL POC Glucose (mg/dL) 149 H (75-99) mg/dL Calcium 8.0 L (8.4-10.2) mg/dL Total Protein 5.1 L (6.3-8.2) g/dL Albumin 2.6 L (3.5-5.0) g/dL 02/15/20 Range/Units 11:31 RBC (3.80-5.40) m/uL Hgb (11.4-16.0) gm/dL Hct (34.0-46.0) % Chloride (98-107) mmol/L BUN (7-17) mg/dL Creatinine (0.52-1.04) mg/dL Glucose (74-99) mg/dL POC Glucose (mg/dL) 213 H (75-99) mg/dL Calcium (8.4-10.2) mg/dL Total Protein (6.3-8.2) g/dL Albumin (3.5-5.0) g/dL Assessment and Plan Plan: 1. Shortness of breath likely on the basis of CHF exacerbation/fluid overload, with diastolic dysfunction The patient has pulmonary asked her congestion/edema on her chest x-ray in addition to that she has a elevated proBNP level and increased edema in lower extremities is bilaterally. All these findings are supporting CHF/fluid overload. Furthermore, the patient has been not taking her diuretics are regular basis due to concern of renal insufficiency as the patient has chronic kidney disease. 2. Acute non-ST elevated myocardial infarction, currently the patient is on IV heparin. The patient has been fairly of any chest pain. EKGs is paced rhythm and the patient is being seen by cardiology. 3. Hypertension, and the blood pressure is under poor control 4. Diastolic heart failure 5. chronic kidney disease, stage III 6. History of coronary artery disease status post bypass grafting 19 years ago 7. History of CHF with diastolic dysfunction, echocardiogram showed low normal EF of 50-55% moderate mitral regurgitation, trace tricuspid regurg, PA systolic of less than 35 mmHg, normal inferior vena cava with normal inspiratory collapse an estimated right atrial pressure of 5 mmHg 8. Diabetes mellitus 9. Chronic smoker, carries 50 years of smoking of less than a pack a day, and more recently started vaping in an attempt to quit smoking 10. Oxygen dependent COPD, not consistently compliant with oxygen 11. Hypertension 12. Hyperlipidemia 13. Permanent pacemaker insertion in 2014 14. Obesity, with history of lap band 15. Obstructive sleep apnea on BiPAP machine Plan: We'll contact IV diuretics to once daily, patient is maintaining negative fluid balance, she is breathing easier, wean FiO2, increase activity as tolerated, today's chest x-ray has been reviewed showing improvement in aeration. Continue with accurate intake and output, daily weights. We'll continue to follow I performed a history & physical examination of the patient and discussed their management with my nurse practitioner, Marylu Lovelace. I reviewed the nurse practitioner's note and agree with the documented findings and plan of care. Lung sounds are positive for bibasilar crackles. The findings and the impression was discussed with the patient. I attest to the documentation by the nurse practitioner. Time with Patient: Less than 30
[2020-02-15 16:40] LABS: Glucose,Whole Blood 194 mg/dL (75-99)
--- NOTE | 2020-02-15 17:56 | P.PN ---
Subjective Progress Note Date: 02/15/20 Elza Avery is an 80-year-old female, patient of Dr. 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 During her transfer patient had episode of chest pain and shortness of breath in the ambulance, upon arrival to the hospital she was started on BiPAP. Pulmonary consultation cardiology consultation and nephrology consultations were initiated. Patient was admitted to telemetry floor, troponin level was elevated at 0.176, BNP was elevated at 20,800, patient was started on IV heparin. Home medications were reordered including diuretics. On 02/15/2020 patient was seen and examined on the telemetry floor she is alert and oriented 3 in no apparent distress, there is no fever or chills no headache or dizziness no chest pain, shortness of breath has improved since yesterday, she is still complaining of cough, there is no nausea or vomiting no abdominal pain no diarrhea no blood in the stools no burning was urination no frequency or urgency and no hematuria Objective - Vital Signs Vital signs: Vital Signs Temp 98.3 F 02/15/20 08:23 Pulse 66 02/15/20 16:00 Resp 16 02/15/20 16:00 BP 188/78 02/15/20 16:00 Pulse Ox 97 02/15/20 16:00 Intake & Output 02/14/20 02/15/20 02/15/20 18:59 06:59 18:59 Intake Total 520.419 520 Output Total 700 1974 Balance - Weight 98.8 kg Intake: Intake, IV Titration 40.419 Amount Heparin Sod,Pork in 0.45% 40.419 NaCl 25,000 unit In 0.45 % NaCl 1 250ml.bag @ 10 UNITS/KG/HR 9.662 mls/hr IV .Q24H [facility] Rx#: [id number] Oral 480 520 Output: Urine 700 1974 Other: Voiding Method Bedside Commode # Voids 1 3 0 # Bowel Movements 1 - Exam At this time patient is alert and oriented 3 in no apparent distress HEENT head normocephalic and atraumatic Neck is supple no JVD no goiter no lymphadenopathy Chest exam reveals a few scattered rhonchi no wheezing Cardiac exam reveals regular heart sounds S1 and S2 no gallops no murmurs Abdomen is soft nontender no organomegaly with normal bowel sounds Extremity exam reveals no edema no cyanosis or clubbing Neurological examination reveals no gross focal deficits - Labs CBC & Chem 7: 02/15/20 06:21 02/15/20 06:21 Labs: Abnormal Lab Results - Last 24 Hours (Table) 02/14/20 02/14/20 02/15/20 Range/Units 10:00 20:39 02:09 RBC (3.80-5.40) m/uL Hgb (11.4-16.0) gm/dL Hct (34.0-46.0) % Chloride (98-107) mmol/L BUN (7-17) mg/dL Creatinine (0.52-1.04) mg/dL Glucose (74-99) mg/dL POC Glucose (mg/dL) 261 H 202 H (75-99) mg/dL Calcium (8.4-10.2) mg/dL Total Protein (6.3-8.2) g/dL Albumin (3.5-5.0) g/dL Stool Occult Blood Positive H (Negative) 02/15/20 02/15/20 02/15/20 Range/Units 06:08 06:21 06:21 RBC 3.13 L (3.80-5.40) m/uL Hgb 9.1 L (11.4-16.0) gm/dL Hct 28.8 L (34.0-46.0) % Chloride 109 H (98-107) mmol/L BUN 58 H (7-17) mg/dL Creatinine 2.46 H (0.52-1.04) mg/dL Glucose 127 H (74-99) mg/dL POC Glucose (mg/dL) 149 H (75-99) mg/dL Calcium 8.0 L (8.4-10.2) mg/dL Total Protein 5.1 L (6.3-8.2) g/dL Albumin 2.6 L (3.5-5.0) g/dL Stool Occult Blood (Negative) 02/15/20 02/15/20 Range/Units 11:31 16:32 RBC (3.80-5.40) m/uL Hgb (11.4-16.0) gm/dL Hct (34.0-46.0) % Chloride (98-107) mmol/L BUN (7-17) mg/dL Creatinine (0.52-1.04) mg/dL Glucose (74-99) mg/dL POC Glucose (mg/dL) 213 H 194 H (75-99) mg/dL Calcium (8.4-10.2) mg/dL Total Protein (6.3-8.2) g/dL Albumin (3.5-5.0) g/dL Stool Occult Blood (Negative) Assessment and Plan Plan: 1. Acute congestive heart failure exacerbation with pulmonary edema 2. Mild pleural effusion 3. Acute non-ST elevation myocardial infarction patient was started on IV heparin, IV heparin is off at this time patient is maintained on aspirin and Plavix cardiology are following 4. Underlying history of chronic kidney disease stage III 5. Underlying history of hypertension 6. Underlying history of coronary artery disease with history of coronary artery bypass graft surgery in 2000 7. Underlying history of diastolic congestive heart failure exacerbation her last echo cardiogram revealed normal ejection fraction 8. Underlying history of insulin-dependent diabetes mellitus 9. Underlying history of chronic obstructive pulmonary disease, with chronic hypoxic respiratory failure maintained on home oxygen 10. Underlying history of tobacco abuse 11. Underlying history of pacemaker placement 5 years ago 12. Underlying history of obstructive sleep apnea maintained on BiPAP at home 13. Anemia hemoglobin dropped today to 8.8 will monitor closely, check stools for Hemoccult At this time patient is maintained on IV heparin, inhaled bronchodilators She had BiPAP through the night Patient is feeling better at this time Nephrology consultation was requested for management of diuretics Pulmonary and cardiology consultation requested Prognosis is guarded due to age and multiple underlying conditions
[2020-02-15 20:04] LABS: Glucose,Whole Blood 363 mg/dL (75-99)
[2020-02-15] MEDS: INSULIN DETEMIR (LEVEMIR) 100 UNIT/ML SYR SQ SCH (21:12)
[2020-02-15] MEDS: ATORVASTATIN 40 MG TAB PO SCH (21:12)
[2020-02-15] MEDS: guaiFENesin-Coden 100-10MG/5ML 10 ML CUP PO PRN (21:15)
[2020-02-16 06:25] LABS: Glucose,Whole Blood 119 mg/dL (75-99)
[2020-02-16] MEDS: CARVEDILOL 6.25 MG TAB PO SCH ×2 (06:26→17:09)
[2020-02-16] MEDS: INSULIN ASPART (NovoLOG) 100 UNIT/ML VIAL SQ SCH ×4 (06:26→20:47)
[2020-02-16] MEDS: IPRATROPIUM-ALBUTEROL 3 ML NEB INHALATION PRN ×4 (07:13→20:18)
[2020-02-16 07:45] LABS: Albumin 2.5 g/dL (3.5-5.0); Potassium 4.7 mmol/L (3.5-5.1); Total Bilirubin 0.3 mg/dL (0.2-1.3); Total Protein 5.1 g/dL (6.3-8.2)
[2020-02-16 08:01] LABS: HCT 28.9 % (34.0-46.0); HGB 9.2 gm/dL (11.4-16.0); Hypochromasia Moderate; MCH 29.3 pg (25.0-35.0); MCHC 31.6 g/dL (31.0-37.0); MCV 92.5 fL (80.0-100.0); Platelet Count 160 k/uL (150-450); RBC 3.13 m/uL (3.80-5.40); WBC 6.1 k/uL (3.8-10.6)
[2020-02-16] MEDS ORDERED: FUROSEMIDE 10 MG/ML 4 ML VIAL IV SCH (09:00)
[2020-02-16] MEDS: CLOPIDOGREL 75 MG TAB PO SCH (09:42)
[2020-02-16] MEDS: hydrALAZINE HCL 50 MG TAB PO SCH ×3 (09:42→20:46)
[2020-02-16] MEDS: ISOSORBIDE MONONITRATE ER 60 MG TAB.ER.24H PO SCH (09:42)
[2020-02-16] MEDS: LOSARTAN 50 MG TAB PO SCH (09:42)
[2020-02-16] MEDS: ASPIRIN 81 MG PO SCH (09:42)
[2020-02-16] MEDS: SODIUM BICARBONATE TAB 650 MG TAB PO SCH ×4 (09:42→20:46)
[2020-02-16] MEDS: guaiFENesin-Coden 100-10MG/5ML 10 ML CUP PO PRN ×2 (09:46→20:47)
[2020-02-16 10:26] LABS: Eosinophils # (M) 0.43 k/uL (0-0.7); Monocytes # (M) 0.18 k/uL (0-1.0); Neutrophils # (M) 3.29 k/uL (1.3-7.7); Neutrophils % (M) 54 %; Nucleated Red Blood Cells 0 /100 WBC (0-0); Total Cells Counted 100
[2020-02-16 12:07] LABS: Glucose,Whole Blood 211 mg/dL (75-99)
--- NOTE | 2020-02-16 12:10 | P.PN ---
Subjective Progress Note Date: 02/16/20 Principal diagnosis: acute exacerbation of chronic CHF, acute non-ST elevated [place] his is an 80-year-old female patient with known history of COPD, diastolic heart failure, chronic kidney disease stage III, hypertension, CAD with previous bypass surgery more than 20 years ago, diabetes mellitus, hypertension and hyperlipidemia and history of placement pacemaker insertion 2014 along with obstructive sleep apnea and obesity with a BMI of 34.4 This patient came into the hospital yesterday because of worsening shortness of breath. She has been having increased lower extremity edema. She has been having exertional dyspnea. No significant cough sputum production. No chest t ightness. No wheezing. No angina. No previous history of DVT or pulmonary embolism. The patient was concerned about her renal function and she has been taken her torsemide diuretic on a regular basis and she's been doing good probably once or twice a week. During this current admission, her creatinine is at 2.2 which is slightly lower compared to her baseline. BUN is at 42. She has a troponin leak with troponin level of 0.176 and a proBNP level of 20,008 100. The blood sugar is at 273. Potassium level is at 5.9. She was started on IV heparin and the EKG showed a paced rhythm. History of any chest pain for now. Cardiology consultation is still pending for now. Meanwhile, the patient was not given any diuretics based on her ongoing concern. She did consult with nephrology prior to doing so. I noted that her blood pressure was slightly elevated and it resumed her Coreg and hydralazine for now. She is awake and alert and she has no specific complaint otherwise. On 02/09/2020 patient seen in follow-up on selective care unit, she is awake and alert, in no acute distress. patient is currently on 4 L of oxygen, her pulse ox is around 97-98%. her breathing is improving, patient is less dyspneic, she is wearing BiPAP iat bedtime, currently with pressures of 12/5, and FiO2 of 40%. patient is on IV Lasix 40 mg every 12 hours, and she is in negative fluid balance over the last 24 hours. nephrology is following, today's labs have been reviewed, showing slightly improved renal profile, with B1 of 52, and creatinine is 2.11. Admission proBNP was 20,008 100, patient had elevation of troponins of 0.176, cardiology is following. She is being medically treated. Patient had hypertensive urgency on admission, her blood pressure is much better controlled, her blood pressure is 150/69. On 02/15/2020 patient seen in follow-up on selective care unit, she is resting comfortably in bed, in no acute distress, she is feeling better, still has some residual scattered wheezes, but overall less bronchospastic, chest x-ray is showing improvement in aeration and volume status. Patient has been on IV diuretics, and she is in -2.1 L net fluid balance over the last 24 hours. T ryley's labs have been reviewed, showing white blood cell, 7.9, hemoglobin of 9.1, sodium is 137, potassium is 4.8, chloride is 109, CO2 is 25, BUN is 58, creatinine is 2.46. On 02/16/2020 patient seen in follow-up on selective care unit. Breathing is comfortable, no signs of any respiratory distress, remains on 4 L with a pulse ox of 96-98%, no fever or chills, hemodynamically stable, no complaints of chest pain. Today's labs have been reviewed showing slightly improved creatinine, down to 2.07, and BUN stable at 56. No nausea vomiting or diarrhea, no significant cough or congestion. Objective - Vital Signs Vital signs: Vital Signs Temp 98.1 F 02/16/20 08:00 Pulse 60 02/16/20 11:44 Resp 16 02/16/20 11:44 BP 158/70 02/16/20 11:44 Pulse Ox 98 02/16/20 11:44 Intake & Output 02/15/20 02/16/20 02/16/20 18:59 06:59 18:59 Intake Total 760 240 Output Total 400 Balance 360 240 Weight 119 kg Intake: Oral 760 240 Output: Urine 400 Other: Voiding Method Bedside Commode # Voids 0 1 # Bowel Movements 1 - Exam GENERAL EXAM: Alert, very pleasant, 80-year-old white female, on 4 L of oxygen with a pulse ox of 98%, comfortable in no apparent distress. HEAD: Normocephalic/atraumatic. EYES: Normal reaction of pupils, equal size. Conjunctiva pink, sclera white. NOSE: Clear with pink turbinates. THROAT: No erythema or exudates. NECK: No masses, no JVD, no thyroid enlargement, no adenopathy. CHEST: No chest wall deformity. Symmetrical expansion. LUNGS: Equal air entry with no crackles, wheeze, rhonchi or dullness. CVS: Regular rate and rhythm, normal S1 and S2, no gallops, no murmurs, no rubs ABDOMEN: Soft, nontender. No hepatosplenomegaly, normal bowel sounds, no guarding or rigidity. EXTREMITIES: No clubbing, no edema, no cyanosis, 2+ pulses and upper and lower extremities. MUSCULOSKELETAL: Muscle strength and tone normal. SPINE: No scoliosis or deformity SKIN: No rashes CENTRAL NERVOUS SYSTEM: Alert and oriented -3. No focal deficits, tone is normal in all 4 extremities. PSYCHIATRIC: Alert and oriented -3. Appropriate affect. Intact judgment and insight. - Labs CBC & Chem 7: 02/16/20 06:32 02/16/20 06:32 Labs: Abnormal Lab Results - Last 24 Hours (Table) 02/14/20 02/15/20 02/15/20 Range/Units 10:00 16:32 20:02 RBC (3.80-5.40) m/uL Hgb (11.4-16.0) gm/dL Hct (34.0-46.0) % Chloride (98-107) mmol/L BUN (7-17) mg/dL Creatinine (0.52-1.04) mg/dL Glucose (74-99) mg/dL POC Glucose (mg/dL) 194 H 363 H (75-99) mg/dL Calcium (8.4-10.2) mg/dL Total Protein (6.3-8.2) g/dL Albumin (3.5-5.0) g/dL Stool Occult Blood Positive H (Negative) 02/16/20 02/16/20 02/16/20 Range/Units 06:23 06:32 06:32 RBC 3.13 L (3.80-5.40) m/uL Hgb 9.2 L (11.4-16.0) gm/dL Hct 28.9 L (34.0-46.0) % Chloride 108 H (98-107) mmol/L BUN 56 H (7-17) mg/dL Creatinine 2.07 H (0.52-1.04) mg/dL Glucose 108 H (74-99) mg/dL POC Glucose (mg/dL) 119 H (75-99) mg/dL Calcium 8.0 L (8.4-10.2) mg/dL Total Protein 5.1 L (6.3-8.2) g/dL Albumin 2.5 L (3.5-5.0) g/dL Stool Occult Blood (Negative) Microbiology - Last 24 Hours (Table) 02/15/20 13:00 Urine Culture - Preliminary Urine,Voided Assessment and Plan Plan: 1. Shortness of breath likely on the basis of CHF exacerbation/fluid overload, with diastolic dysfunction The patient has pulmonary asked her congestion/edema on her chest x-ray in addition to that she has a elevated proBNP level and increased edema in lower extremities is bilaterally. All these findings are supporting CHF/fluid overload. Furthermore, the patient has been not taking her diuretics are regular basis due to concern of renal insufficiency as the patient has chronic kidney disease. 2. Acute non-ST elevated myocardial infarction, currently the patient is on IV heparin. The patient has been fairly of any chest pain. EKGs is paced rhythm and the patient is being seen by cardiology. 3. Hypertension, and the blood pressure is under poor control 4. Diastolic heart failure 5. chronic kidney disease, stage III 6. History of coronary artery disease status post bypass grafting 19 years ago 7. History of CHF with diastolic dysfunction, echocardiogram showed low normal EF of 50-55% moderate mitral regurgitation, trace tricuspid regurg, PA systolic of less than 35 mmHg, normal inferior vena cava with normal inspiratory collapse an estimated right atrial pressure of 5 mmHg 8. Diabetes mellitus 9. Chronic smoker, carries 50 years of smoking of less than a pack a day, and more recently started vaping in an attempt to quit smoking 10. Oxygen dependent COPD, not consistently compliant with oxygen 11. Hypertension 12. Hyperlipidemia 13. Permanent pacemaker insertion in 2015 14. Obesity, with history of lap band 15. Obstructive sleep apnea on BiPAP machine Plan: Breathing is comfortable, no worsening dyspnea, continues on once daily dose of diuretics, renal profile slightly improved. No complaints of chest pain. BiPAP at bedtime and as needed, overall breathing has improved, fluid line status has improved, increase activity as tolerated. I performed a history & physical examination of the patient and discussed their management with my nurse practitioner, Marylu Lovelace. I reviewed the nurse practitioner's note and agree with the documented findings and plan of care. Lung sounds are positive for bibasilar crackles. The findings and the impression was discussed with the patient. I attest to the documentation by the nurse practitioner. Time with Patient: Less than 30
[2020-02-16] MEDS: guaiFENesin 600 MG TABLET.ER PO PRN ×2 (12:25→20:46)
--- NOTE | 2020-02-16 14:20 | P.PN ---
Subjective Progress Note Date: 02/16/20 This up with an 80-year-old female patient with known history of CAD, status post coronary artery bypass grafting, history of CKD. Presented with symptoms of progressive dyspnea and evidence of congestive heart failure. She's feeling better overall. Lasix was decreased yesterday to 40 mg IV push daily. She's being followed by pulmonary and nephrology. She denies any chest discomfort and her breathing is better she does complain of a cough that is nonproductive. She denies any dizziness or lightheadedness. She continues to be on aspirin 81 mg by mouth daily, Lipitor 40 mg by mouth daily at bedtime, carvedilol 6.25 mg by mouth twice a day, Plavix 75 mg daily, Lasix 40 mg IV push daily, hydralazine 100 mg by mouth 3 times a day, losartan 100 mg by mouth daily and isosorbide 60 mg by mouth daily. Objective - Vital Signs Vital signs: Vital Signs Temp 98.1 F 02/16/20 08:00 Pulse 60 02/16/20 11:44 Resp 16 02/16/20 11:44 BP 158/70 02/16/20 11:44 Pulse Ox 98 02/16/20 11:44 Intake & Output 02/15/20 02/16/20 02/16/20 18:59 06:59 18:59 Intake Total 760 240 Output Total 400 Balance 360 240 Weight 119 kg Intake: Oral 760 240 Output: Urine 400 Other: Voiding Method Bedside Commode # Voids 0 1 # Bowel Movements 1 - Exam PHYSICAL EXAMINATION: HEENT: Head is atraumatic, normocephalic. Pupils equal, round. Neck is supple. There is no elevated jugular venous pressure. HEART EXAMINATION: Heart sounds regular, S1 and S2 with a systolic murmur. CHEST EXAMINATION: Lungs are clear to auscultation. No chest wall tenderness is noted on palpation or with deep breathing. ABDOMEN: Soft, nontender. Bowel sounds are heard. No organomegaly noted. EXTREMITIES: 2+ peripheral pulses with evidence of +1 peripheral edema and no calf tenderness noted. NEUROLOGIC patient is awake, alert and oriented x3. . - Labs CBC & Chem 7: 02/16/20 06:32 02/16/20 06:32 Labs: Abnormal Lab Results - Last 24 Hours (Table) 02/14/20 02/15/20 02/15/20 Range/Units 10:00 16:32 20:02 RBC (3.80-5.40) m/uL Hgb (11.4-16.0) gm/dL Hct (34.0-46.0) % Chloride (98-107) mmol/L BUN (7-17) mg/dL Creatinine (0.52-1.04) mg/dL Glucose (74-99) mg/dL POC Glucose (mg/dL) 194 H 363 H (75-99) mg/dL Calcium (8.4-10.2) mg/dL Total Protein (6.3-8.2) g/dL Albumin (3.5-5.0) g/dL Stool Occult Blood Positive H (Negative) 02/16/20 02/16/20 02/16/20 Range/Units 06:23 06:32 06:32 RBC 3.13 L (3.80-5.40) m/uL Hgb 9.2 L (11.4-16.0) gm/dL Hct 28.9 L (34.0-46.0) % Chloride 108 H (98-107) mmol/L BUN 56 H (7-17) mg/dL Creatinine 2.07 H (0.52-1.04) mg/dL Glucose 108 H (74-99) mg/dL POC Glucose (mg/dL) 119 H (75-99) mg/dL Calcium 8.0 L (8.4-10.2) mg/dL Total Protein 5.1 L (6.3-8.2) g/dL Albumin 2.5 L (3.5-5.0) g/dL Stool Occult Blood (Negative) 02/16/20 Range/Units 12:05 RBC (3.80-5.40) m/uL Hgb (11.4-16.0) gm/dL Hct (34.0-46.0) % Chloride (98-107) mmol/L BUN (7-17) mg/dL Creatinine (0.52-1.04) mg/dL Glucose (74-99) mg/dL POC Glucose (mg/dL) 211 H (75-99) mg/dL Calcium (8.4-10.2) mg/dL Total Protein (6.3-8.2) g/dL Albumin (3.5-5.0) g/dL Stool Occult Blood (Negative) Microbiology - Last 24 Hours (Table) 02/15/20 13:00 Urine Culture - Preliminary Urine,Voided Assessment and Plan Assessment: #1 acute on chronic diastolic CHF, improving #2 status post coronary artery bypass grafting #3 chronic kidney disease #4 hypertension #5 hyperlipidemia Plan: From cardiology perspective, medications were reviewed and will continue the same. Continue to follow intake and outputs, daily weights as well as renal function and electrolytes.. We will continue to follow patient and provide further recommendations accordingly. Anticipate discharge in the next 24 hours. CASH REGISTER MECHANIC note has been reviewed, I agree with a documented findings and plan of care. Patient was seen and examined.
--- NOTE | 2020-02-16 14:59 | P.PN ---
Subjective Patient is seen in follow-up for acute kidney injury on chronic kidney disease. Patient has chronic kidney disease stage IIIB/4 baseline creatinine in the range of 1.8-2. Renal function better. Creatinine 2.07 today. Maintain on IV Lasix 40 mg once daily. Edema improved. Good urine output. Vital signs are stable. General: The patient appeared well nourished and normally developed. HEENT: Head exam is unremarkable. Neck is without jugular venous distension. LUNGS: Lungs are clear to auscultation and percussion. Breath sounds decreased. HEART: Rate and Rhythm are regular. ABDOMEN: Soft, nontender. EXTREMITITES: Trace edema. Objective - Vital Signs Vital signs: Vital Signs Temp 98.1 F 02/16/20 08:00 Pulse 60 02/16/20 11:44 Resp 16 02/16/20 11:44 BP 158/70 02/16/20 11:44 Pulse Ox 98 02/16/20 11:44 Intake & Output 02/15/20 02/16/20 02/16/20 18:59 06:59 18:59 Intake Total 760 480 Output Total 400 Balance 360 480 Weight 119 kg Intake: Oral 760 480 Output: Urine 400 Other: Voiding Method Bedside Commode # Voids 0 1 # Bowel Movements 1 - Labs CBC & Chem 7: 02/16/20 06:32 02/16/20 06:32 Labs: Abnormal Lab Results - Last 24 Hours (Table) 02/15/20 02/15/20 02/16/20 Range/Units 16:32 20:02 06:23 RBC (3.80-5.40) m/uL Hgb (11.4-16.0) gm/dL Hct (34.0-46.0) % Chloride (98-107) mmol/L BUN (7-17) mg/dL Creatinine (0.52-1.04) mg/dL Glucose (74-99) mg/dL POC Glucose (mg/dL) 194 H 363 H 119 H (75-99) mg/dL Calcium (8.4-10.2) mg/dL Total Protein (6.3-8.2) g/dL Albumin (3.5-5.0) g/dL 02/16/20 02/16/20 02/16/20 Range/Units 06:32 06:32 12:05 RBC 3.13 L (3.80-5.40) m/uL Hgb 9.2 L (11.4-16.0) gm/dL Hct 28.9 L (34.0-46.0) % Chloride 108 H (98-107) mmol/L BUN 56 H (7-17) mg/dL Creatinine 2.07 H (0.52-1.04) mg/dL Glucose 108 H (74-99) mg/dL POC Glucose (mg/dL) 211 H (75-99) mg/dL Calcium 8.0 L (8.4-10.2) mg/dL Total Protein 5.1 L (6.3-8.2) g/dL Albumin 2.5 L (3.5-5.0) g/dL Microbiology - Last 24 Hours (Table) 02/15/20 13:00 Urine Culture - Preliminary Urine,Voided Assessment and Plan Plan: Assessment: 1. Acute kidney injury mostly prerenal secondary to cardiorenal syndrome. Renal function better. Creatinine 2.07 today. 2. Chronic kidney disease stage IIIB/4 with baseline creatinine in the range of 1.8 to secondary to diabetic kidney disease. Serologies were negative outpatient. 3. Hyperkalemia secondary to acute kidney injury as well as losartan. Improved. 4. Volume overload. Improved. 5. Hypertension with chronic kidney disease. 6. Insulin-dependent diabetes mellitus. 7. Mild metabolic acidosis secondary to acute kidney injury maintained on oral bicarb. 8. Acute on chronic diastolic CHF with moderate mitral regurgitation. Plan: Patient received IV Lasix this morning. Start torsemide 20 mg once daily tomorrow. Avoid nephrotoxins. Repeat electrolytes in the morning. Anticipate discharge soon. I advised patient to monitor her weight closely at home and to call if gains more than 3 pounds or has worsening of edema. Repeat BMP and magnesium level 2-3 days postdischarge. Follow up outpatient in 1-2 weeks.
[2020-02-16 16:38] LABS: Glucose,Whole Blood 172 mg/dL (75-99)
--- NOTE | 2020-02-16 19:14 | P.PN ---
Subjective Progress Note Date: 02/16/20 Elza Avery is an 80-year-old female, patient of Dr. Ward, who presented to [facility] with a chief complaint of worsening shortness of breath, patient was evaluated and decision was made to transfer to [facility], she has a known history of chronic kidney disease, history of co ngestive heart failure and history of COPD, patient was hypoxic she was given supplemental oxygen Solu-Medrol and bronchodilator updrafts, patient was resistant to taking IV diuretics before seen her trading assistant due to her kidney function. During her transfer patient had episode of chest pain and shortness of breath in the ambulance, upon arrival to the hospital she was started on BiPAP. Pulmonary consultation cardiology consultation and nephrology consultations were initiated. Patient was admitted to telemetry floor, troponin level was elevated at 0.176, BNP was elevated at 20,800, patient was started on IV heparin. Home medications were reordered including diuretics. On 02/15/2020 patient was seen and examined on the telemetry floor she is alert and oriented 3 in no apparent distress, there is no fever or chills no headache or dizziness no chest pain, shortness of breath has improved since yesterday, she is still complaining of cough, there is no nausea or vomiting no abdominal pain no diarrhea no blood in the stools no burning was urination no frequency or urgency and no hematuria On 02/16/2020 patient was seen and examined on the telemetry floor she is alert and oriented 3 in no apparent distress, there is no fever or chills no headache or dizziness no chest pain no shortness of breath no cough no nausea or vomiting no abdominal pain no diarrhea no burning with urination no frequency or urgency no hematuria, blood pressure readings are elevated nephrology and cardiology are following Objective - Vital Signs Vital signs: Vital Signs Temp 97.8 F 02/16/20 15:42 Pulse 60 02/16/20 16:23 Resp 16 02/16/20 15:42 BP 184/79 02/16/20 15:42 Pulse Ox 98 02/16/20 15:42 Intake & Output 02/16/20 02/16/20 02/17/20 06:59 18:59 06:59 Intake Total 600 Balance 600 Weight 119 kg Intake: Oral 600 Other: Voiding Method Bedside Commode # Voids 1 - Exam At this time patient is alert and oriented 3 in no apparent distress HEENT head normocephalic and atraumatic Neck is supple no JVD no goiter no lymphadenopathy Chest exam reveals a few scattered rhonchi no wheezing Cardiac exam reveals regular heart sounds S1 and S2 no gallops no murmurs Abdomen is soft nontender no organomegaly with normal bowel sounds Extremity exam reveals no edema no cyanosis or clubbing Neurological examination reveals no gross focal deficits - Labs CBC & Chem 7: 02/16/20 06:32 02/16/20 06:32 Labs: Abnormal Lab Results - Last 24 Hours (Table) 02/15/20 02/16/20 02/16/20 Range/Units 20:02 06:23 06:32 RBC 3.13 L (3.80-5.40) m/uL Hgb 9.2 L (11.4-16.0) gm/dL Hct 28.9 L (34.0-46.0) % Chloride (98-107) mmol/L BUN (7-17) mg/dL Creatinine (0.52-1.04) mg/dL Glucose (74-99) mg/dL POC Glucose (mg/dL) 363 H 119 H (75-99) mg/dL Calcium (8.4-10.2) mg/dL Total Protein (6.3-8.2) g/dL Albumin (3.5-5.0) g/dL 02/16/20 02/16/20 02/16/20 Range/Units 06:32 12:05 16:27 RBC (3.80-5.40) m/uL Hgb (11.4-16.0) gm/dL Hct (34.0-46.0) % Chloride 108 H (98-107) mmol/L BUN 56 H (7-17) mg/dL Creatinine 2.07 H (0.52-1.04) mg/dL Glucose 108 H (74-99) mg/dL POC Glucose (mg/dL) 211 H 172 H (75-99) mg/dL Calcium 8.0 L (8.4-10.2) mg/dL Total Protein 5.1 L (6.3-8.2) g/dL Albumin 2.5 L (3.5-5.0) g/dL Microbiology - Last 24 Hours (Table) 02/15/20 13:00 Urine Culture - Preliminary Urine,Voided Gram Neg Bacilli Assessment and Plan Plan: 1. Acute congestive heart failure exacerbation with pulmonary edema 2. Mild pleural effusion 3. Acute non-ST elevation myocardial infarction patient was started on IV heparin, IV heparin is off at this time patient is maintained on aspirin and Plavix cardiology are following 4. Underlying history of chronic kidney disease stage III 5. Underlying history of hypertension 6. Underlying history of coronary artery disease with history of coronary artery bypass graft surgery in 2000 7. Underlying history of diastolic congestive heart failure exacerbation her last echo cardiogram revealed normal ejection fraction 8. Underlying history of insulin-dependent diabetes mellitus 9. Underlying history of chronic obstructive pulmonary disease, with chronic hypoxic respiratory failure maintained on home oxygen 10. Underlying history of tobacco abuse 11. Underlying history of pacemaker placement 5 years ago 12. Underlying history of obstructive sleep apnea maintained on BiPAP at home 13. Anemia hemoglobin dropped today to 8.8 will monitor closely, check stools for Hemoccult At this time patient is maintained on IV heparin, inhaled bronchodilators She had BiPAP through the night Patient is feeling better at this time Nephrology consultation was requested for management of diuretics Pulmonary and cardiology consultation requested Prognosis is guarded due to age and multiple underlying conditions
[2020-02-16 20:43] LABS: Glucose,Whole Blood 332 mg/dL (75-99)
[2020-02-16] MEDS: ATORVASTATIN 40 MG TAB PO SCH (20:46)
[2020-02-16] MEDS: INSULIN DETEMIR (LEVEMIR) 100 UNIT/ML SYR SQ SCH (20:47)
[2020-02-16] MEDS ORDERED: TEMAZEPAM 15 MG CAP PO SCH (21:00)
[2020-02-17 06:04] LABS: Glucose,Whole Blood 145 mg/dL (75-99)
[2020-02-17] MEDS: CARVEDILOL 6.25 MG TAB PO SCH ×2 (06:21→17:28)
[2020-02-17] MEDS: INSULIN ASPART (NovoLOG) 100 UNIT/ML VIAL SQ SCH ×3 (06:21→17:28)
[2020-02-17 06:25] LABS: HCT 27.4 % (34.0-46.0); HGB 8.8 gm/dL (11.4-16.0); Hypochromasia Slight; MCH 29.2 pg (25.0-35.0); MCHC 32.1 g/dL (31.0-37.0); Mean Platelet Volume 8.7; Platelet Count 148 k/uL (150-450); RBC 3.01 m/uL (3.80-5.40); RDW 14.2 % (11.5-15.5); WBC 6.3 k/uL (3.8-10.6)
[2020-02-17 06:57] LABS: Albumin 2.4 g/dL (3.5-5.0); Calcium 7.7 mg/dL (8.4-10.2); Potassium 4.7 mmol/L (3.5-5.1); Total Bilirubin 0.3 mg/dL (0.2-1.3); Total Protein 4.9 g/dL (6.3-8.2)
[2020-02-17 08:19] VITALS: TEMP 97.2
[2020-02-17] MEDS: CLOPIDOGREL 75 MG TAB PO SCH (08:20)
[2020-02-17] MEDS: LOSARTAN 50 MG TAB PO SCH (08:20)
[2020-02-17] MEDS: ASPIRIN 81 MG PO SCH (08:20)
[2020-02-17] MEDS: ISOSORBIDE MONONITRATE ER 60 MG TAB.ER.24H PO SCH (08:20)
[2020-02-17] MEDS: SODIUM BICARBONATE TAB 650 MG TAB PO SCH ×3 (08:20→17:28)
[2020-02-17] MEDS: hydrALAZINE HCL 50 MG TAB PO SCH ×2 (08:20→17:28)
[2020-02-17] MEDS: guaiFENesin-Coden 100-10MG/5ML 10 ML CUP PO PRN (08:20)
[2020-02-17] MEDS: IPRATROPIUM-ALBUTEROL 3 ML NEB INHALATION PRN ×3 (08:20→16:38)
[2020-02-17 08:43] LABS: Basophils # (M) 0.06 k/uL (0-0.2); Lymphocytes # (M) 1.32 k/uL (1.0-4.8); Monocytes # (M) 0.19 k/uL (0-1.0); Neutrophils # (M) 4.22 k/uL (1.3-7.7); Neutrophils % (M) 67 %; Nucleated Red Blood Cells 0 /100 WBC (0-0); Total Cells Counted 100
[2020-02-17 08:44] LABS: Anisocytosis (M) Present; Poikilocytosis (M) Present
[2020-02-17] MEDS ORDERED: TORSEMIDE 20 MG TAB PO SCH (09:00)
--- NOTE | 2020-02-17 10:29 | PN ---
PROGRESS NOTE Mrs. Avery is an 80-year-old female with known history of coronary artery disease, status post coronary artery bypass grafting, history of chronic kidney disease, who presented with symptoms of progressive dyspnea and symptoms of congestive heart failure. She is feeling better today. Her breathing is stable. She denies any chest pain. She denies any dizziness. She denies any palpitation. She continues on aspirin once a day, Lipitor 40 mg daily, Coreg 6.5 mg twice a day, Plavix 75 mg daily, hydralazine 100 mg 3 times a day, losartan 100 mg daily, isosorbide mononitrate 60 mg daily, and furosemide 20 mg daily. PHYSICAL EXAMINATION: Blood pressure 133/50 with a heart rate in the 60s. LUNGS: Clear. HEART: Regular rate and rhythm, S1, S2. No S3. No rub. ABDOMEN: Soft, nontender. EXTREMITIES: Trace edema. LAB DATA: BUN and creatinine 60 and 2.06, potassium 4.7, hemoglobin of 8.8. IMPRESSION: 1. Symptoms of congestive heart failure, improving. 2. History of coronary artery disease, status post coronary artery bypass grafting. 3. Chronic kidney disease. 4. Hypertension. 5. Hyperlipidemia. RECOMMENDATION: From the cardiac standpoint, she appears to be stable on her present medical regimen. I will continue on her treatment. She may be able to be discharged home today and followed as an outpatient with her primary bead cutter. DELL / EDWIN: [id number] /
--- NOTE | 2020-02-17 11:07 | P.PN ---
Subjective Patient is seen in follow-up for acute kidney injury on chronic kidney disease. Patient has chronic kidney disease stage IIIB/4 baseline creatinine in the range of 1.8-2. Renal function stable. Creatinine 2.06 today. Started on oral diuretics today. Edema improved. Good urine output. Vital signs are stable. General: The patient appeared well nourished and normally developed. HEENT: Head exam is unremarkable. Neck is without jugular venous distension. LUNGS: Lungs are clear to auscultation and percussion. Breath sounds decreased. HEART: Rate and Rhythm are regular. ABDOMEN: Soft, nontender. EXTREMITITES: Trace edema. Objective - Vital Signs Vital signs: Vital Signs Temp 97.2 F L 02/17/20 08:00 Pulse 60 02/17/20 08:31 Resp 18 02/17/20 08:00 BP 133/53 02/17/20 08:00 Pulse Ox 99 02/17/20 08:00 Intake & Output 02/16/20 02/17/20 02/17/20 18:59 06:59 18:59 Intake Total 600 10 350 Balance 600 10 350 Weight 98.7 kg Intake: IV 10 0.9 10 Oral 600 350 Other: Voiding Method Bedside Commode # Voids 2 1 - Labs CBC & Chem 7: 02/17/20 05:43 02/17/20 05:43 Labs: Abnormal Lab Results - Last 24 Hours (Table) 02/16/20 02/16/20 02/16/20 Range/Units 12:05 16:27 20:41 RBC (3.80-5.40) m/uL Hgb (11.4-16.0) gm/dL Hct (34.0-46.0) % Plt Count (150-450) k/uL Sodium (137-145) mmol/L Chloride (98-107) mmol/L BUN (7-17) mg/dL Creatinine (0.52-1.04) mg/dL Glucose (74-99) mg/dL POC Glucose (mg/dL) 211 H 172 H 332 H (75-99) mg/dL Calcium (8.4-10.2) mg/dL Total Protein (6.3-8.2) g/dL Albumin (3.5-5.0) g/dL 02/17/20 02/17/20 02/17/20 Range/Units 05:43 05:43 06:02 RBC 3.01 L (3.80-5.40) m/uL Hgb 8.8 L (11.4-16.0) gm/dL Hct 27.4 L (34.0-46.0) % Plt Count 148 L (150-450) k/uL Sodium 136 L (137-145) mmol/L Chloride 108 H (98-107) mmol/L BUN 60 H (7-17) mg/dL Creatinine 2.06 H (0.52-1.04) mg/dL Glucose 128 H (74-99) mg/dL POC Glucose (mg/dL) 145 H (75-99) mg/dL Calcium 7.7 L (8.4-10.2) mg/dL Total Protein 4.9 L (6.3-8.2) g/dL Albumin 2.4 L (3.5-5.0) g/dL Microbiology - Last 24 Hours (Table) 02/15/20 13:00 Urine Culture - Preliminary Urine,Voided Gram Neg Bacilli Assessment and Plan Plan: Assessment: 1. Acute kidney injury mostly prerenal secondary to cardiorenal syndrome. Renal function stable. Creatinine 2.06 today. 2. Chronic kidney disease stage IIIB/4 with baseline creatinine in the range of 1.8 to secondary to diabetic kidney disease. Serologies were negative outpatient. 3. Hyperkalemia secondary to acute kidney injury as well as losartan. Improved. 4. Volume overload. Improved. 5. Hypertension with chronic kidney disease. Controlled. 6. Insulin-dependent diabetes mellitus. 7. Mild metabolic acidosis secondary to acute kidney injury maintained on oral bicarb. 8. Acute on chronic diastolic CHF with moderate mitral regurgitation. Plan: Maintain torsemide 20 mg once daily. Avoid nephrotoxins. Repeat electrolytes in the morning. Anticipate discharge soon. I advised patient to monitor her weight closely at home and to call if gains more than 3 pounds or has worsening of edema. Repeat BMP and magnesium level 2-3 days postdischarge. Follow up outpatient in 1-2 weeks.
--- NOTE | 2020-02-17 11:41 | CDI ---
Documentation Clarification Form Date: 02/17/2020 10:26:47 AM From: Jenna Walsh RN CCDS Admit Date: 02/13/2020 05:45:00 AM Patient Name: Elza Avery Visit Number: [id number] Discharge Date: ATTENTION: The Clinical Documentation Specialists (CDI) and [facility] Coding Staff appreciate your assistance in clarifying documentation. Please respond to the clarification below the line at the bottom and electronically sign. The CDI & [facility] Coding staff will review the response and follow-up if needed. Please note: Queries are made part of the Legal Health Record. If you have any questions, please contact the author of this message via ITS. Dr. Lona Arias Conflicting documentation has been found in the medical record: Type II NSTEMI is documented in the ED Note 02/12 Acute NSTEMI is documented in H&P 02/12 and following progress notes through 02/15 Patient History/Risk Factors: 80-year old female presents to the ED with shortness of breath and chest pain. Medical HX - Diastolic CHF, COPD, DM, HTN and CKD 3 Clinical Indicators: 02/12 VSS: 181/98, 82,98.0, 32, 94% nasal cannula Labs 02/12 - Troponin: 0.176, Pro BNP 30053 02/12 EKG Results: Atrial sensed ventricular paced rhythm with prolonged AV conduction Treatment: 02/12 Heparin IV x1 followed by Ivpb d/c 02/13, Coreg BID PO, Imdur PO Daily, Lasix IV x1, 02/13 Lasix IV Q 12Hr changed 02/15 to Daily, 02/16 Demadex PO BID Daily For accurate documentation please indicate the underlying etiology of the Type II IA: Type 2 IA secondary to demand ischemia in the setting of Diastolic Heart Failure NSTEMI Ruled Out Unable to determine Other Condition, please specify (Last Revision: December 2017) unable to determine please ask cardiology for accurate answer MTDD
[2020-02-17 11:56] LABS: Glucose,Whole Blood 207 mg/dL (75-99)
[2020-02-17 12:11] VITALS: BP 139/51; RESP 16
--- NOTE | 2020-02-17 12:12 | P.PN ---
Subjective Progress Note Date: 02/17/20 Principal diagnosis: Acute exacerbation of chronic congestive heart failure, acute non-ST segment elevation myocardial infarction This is an 80-year-old female patient with known history of COPD, diastolic heart failure, chronic kidney disease stage III, hypertension, CAD with previous bypass surgery more than 20 years ago, diabetes mellitus, hypertension and hyperlipidemia and history of placement pacemaker insertion 2014 along with obstructive sleep apnea and obesity with a BMI of 34.4 This patient came into the hospital yesterday because of worsening shortness of breath. She has been having increased lower extremity edema. She has been having exertional dyspnea. No significant cough sputum production. No chest tightness. No wheezing. No angina. No previous history of DVT or pulmonary embolism. The patient was concerned about her renal function and she has been taken her torsemide diuretic on a regular basis and she's been doing good probably once or twice a week. During this current admission, her creatinine is at 2.2 which is slightly lower compared to her baseline. BUN is at 42. She has a troponin leak with troponin level of 0.176 and a proBNP level of 20,008 100. The blood sugar is at 273. Potassium level is at 5.9. She was started on IV heparin and the EKG showed a paced rhythm. History of any chest pain for now. Cardiology consultation is still pending for now. Meanwhile, the patient was not given any diuretics based on her ongoing concern. She did consult with nephrology prior to doing so. I noted that her blood pressure was slightly elevated and it resumed her Coreg and hydralazine for now. She is awake and alert and she has no specific complaint otherwise. On 02/09/2020 patient seen in follow-up on selective care unit, she is awake and alert, in no acute distress. patient is currently on 4 L of oxygen, her pulse ox is around 97-98%. her breathing is improving, patient is less dyspneic, she is wearing BiPAP iat bedtime, currently with pressures of 12/5, and FiO2 of 40%. patient is on IV Lasix 40 mg every 12 hours, and she is in negative fluid balance over the last 24 hours. nephrology is following, today's labs have been reviewed, showing slightly improved renal profile, with B1 of 52, and creatinine is 2.11. Admission proBNP was 20,008 100, patient had elevation of troponins of 0.176, cardiology is following. She is being medically treated. Patient had hypertensive urgency on admission, her blood pressure is much better controlled, her blood pressure is 150/69. On 02/15/2020 patient seen in follow-up on selective care unit, she is resting comfortably in bed, in no acute distress, she is feeling better, still has some residual scattered wheezes, but overall less bronchospastic, chest x-ray is s howing improvement in aeration and volume status. Patient has been on IV diuretics, and she is in -2.1 L net fluid balance over the last 24 hours. Today's labs have been reviewed, showing white blood cell, 7.9, hemoglobin of 9.1, sodium is 137, potassium is 4.8, chloride is 109, CO2 is 25, BUN is 58, creatinine is 2.46. On 02/16/2020 patient seen in follow-up on selective care unit. Breathing is comfortable, no signs of any respiratory distress, remains on 4 L with a pulse ox of 96-98%, no fever or chills, hemodynamically stable, no complaints of chest pain. Today's labs have been reviewed showing slightly improved creatinine, down to 2.07, and BUN stable at 56. No nausea vomiting or diarrhea, no significant cough or congestion. The patient is seen today 02/17/2020 in follow-up on the selective care unit. She is currently sitting up in bed. Awake and alert in no acute distress. She is improved today compared to yesterday. No chest pain. No cough or congestion. She is maintaining good O2 saturations on 4 L/m per nasal cannula which is her home oxygen level. Urine culture was positive for gram-negative bacilli. White count 6.3. Hemoglobin 8.8. Platelets 148. Sodium 136. Potassium 4.7. Creatinine 2.06. Remains in sodium bicarb. She is on oral diuretics now. Objective - Vital Signs Vital signs: Vital Signs Temp 97.2 F L 02/17/20 08:00 Pulse 60 02/17/20 11:33 Resp 18 02/17/20 08:00 BP 133/53 02/17/20 08:00 Pulse Ox 99 02/17/20 08:00 Intake & Output 02/16/20 02/17/20 02/17/20 18:59 06:59 18:59 Intake Total 600 10 350 Balance 600 10 350 Weight 98.7 kg Intake: IV 10 0.9 10 Oral 600 350 Other: Voiding Method Bedside Commode # Voids 2 1 - Exam GENERAL EXAM: Alert, very pleasant, 80-year-old female patient, on 4 L of oxygen with a pulse ox of 99%, comfortable in no apparent distress. HEAD: Normocephalic/atraumatic. EYES: Normal reaction of pupils, equal size. Conjunctiva pink, sclera white. NOSE: Clear with pink turbinates. THROAT: No erythema or exudates. NECK: No masses, no JVD, no thyroid enlargement, no adenopathy. CHEST: No chest wall deformity. Symmetrical expansion. LUNGS: Equal air entry with no crackles, wheeze, rhonchi or dullness. CVS: Regular rate and rhythm, normal S1 and S2, no gallops, no murmurs, no rubs ABDOMEN: Soft, nontender. No hepatosplenomegaly, normal bowel sounds, no guarding or rigidity. EXTREMITIES: No clubbing, no edema, no cyanosis, 2+ pulses and upper and lower extremities. MUSCULOSKELETAL: Muscle strength and tone normal. SPINE: No scoliosis or deformity SKIN: No rashes CENTRAL NERVOUS SYSTEM: No focal deficits, tone is normal in all 4 extremities. PSYCHIATRIC: Alert and oriented -3. Appropriate affect. Intact judgment and insight. - Labs CBC & Chem 7: 02/17/20 05:43 02/17/20 05:43 Labs: Abnormal Lab Results - Last 24 Hours (Table) 02/16/20 02/16/20 02/16/20 Range/Units 12:05 16:27 20:41 RBC (3.80-5.40) m/uL Hgb (11.4-16.0) gm/dL Hct (34.0-46.0) % Plt Count (150-450) k/uL Sodium (137-145) mmol/L Chloride (98-107) mmol/L BUN (7-17) mg/dL Creatinine (0.52-1.04) mg/dL Glucose (74-99) mg/dL POC Glucose (mg/dL) 211 H 172 H 332 H (75-99) mg/dL Calcium (8.4-10.2) mg/dL Total Protein (6.3-8.2) g/dL Albumin (3.5-5.0) g/dL 02/17/20 02/17/20 02/17/20 Range/Units 05:43 05:43 06:02 RBC 3.01 L (3.80-5.40) m/uL Hgb 8.8 L (11.4-16.0) gm/dL Hct 27.4 L (34.0-46.0) % Plt Count 148 L (150-450) k/uL Sodium 136 L (137-145) mmol/L Chloride 108 H (98-107) mmol/L BUN 60 H (7-17) mg/dL Creatinine 2.06 H (0.52-1.04) mg/dL Glucose 128 H (74-99) mg/dL POC Glucose (mg/dL) 145 H (75-99) mg/dL Calcium 7.7 L (8.4-10.2) mg/dL Total Protein 4.9 L (6.3-8.2) g/dL Albumin 2.4 L (3.5-5.0) g/dL 02/17/20 Range/Units 11:44 RBC (3.80-5.40) m/uL Hgb (11.4-16.0) gm/dL Hct (34.0-46.0) % Plt Count (150-450) k/uL Sodium (137-145) mmol/L Chloride (98-107) mmol/L BUN (7-17) mg/dL Creatinine (0.52-1.04) mg/dL Glucose (74-99) mg/dL POC Glucose (mg/dL) 207 H (75-99) mg/dL Calcium (8.4-10.2) mg/dL Total Protein (6.3-8.2) g/dL Albumin (3.5-5.0) g/dL Microbiology - Last 24 Hours (Table) 02/15/20 13:00 Urine Culture - Preliminary Urine,Voided Gram Neg Bacilli Assessment and Plan Assessment: 1. Shortness of breath likely on the basis of CHF exacerbation/fluid overload, with diastolic dysfunction The patient has pulmonary vascular congestion/edema on her chest x-ray in addition to that she has a elevated proBNP level and increased edema in lower extremities is bilaterally. All these findings are supporting CHF/fluid overload. Furthermore, the patient has been not taking her diuretics on a regular basis due to concern of renal insufficiency as the patient has chronic kidney disease. 2. Acute non-ST elevated myocardial infarction. The patient has been fairly of any chest pain. EKGs is paced rhythm and the patient is being seen by cardiology. 3. Hypertension, and the blood pressure is under poor control 4. Diastolic heart failure 5. chronic kidney disease, stage III 6. History of coronary artery disease status post bypass grafting 19 years ago 7. History of CHF with diastolic dysfunction, echocardiogram showed low normal EF of 50-55% moderate mitral regurgitation, trace tricuspid regurg, PA systolic of less than 35 mmHg, normal inferior vena cava with normal inspiratory collapse an estimated right atrial pressure of 5 mmHg 8. Diabetes mellitus 9. Chronic smoker, carries 50 years of smoking of less than a pack a day, and more recently started vaping in an attempt to quit smoking 10. Oxygen dependent COPD, not consistently compliant with oxygen 11. Hypertension 12. Hyperlipidemia 13. Permanent pacemaker insertion in 2014 14. Obesity, with history of lap band 15. Obstructive sleep apnea on BiPAP machine 16 Urinary tract infection secondary to gram-negative bacilli Plan: The patient was seen and evaluated by Dr. Landrum Cleared for discharge from the pulmonary standpoint Follow-up in our office in 1-2 weeks' time I, the cosigning physician, performed a history & physical examination of the patient. Lungs sounds are clear. Maintaining good O2 saturations in the 90s on 4 L/m per nasal cannula. I discussed the assessment and plan of care with my nurse practitioner, Kimberley Dowell. I attest to the above note as dictated by her.
[2020-02-17 14:47] VITALS: BMI 35.1
[2020-02-17 16:51] VITALS: PULSE 62
[2020-02-17 16:51] LABS: Glucose,Whole Blood 212 mg/dL (75-99)
--- NOTE | 2020-02-17 17:38 | P.DS ---
Providers Date of admission: 02/13/20 05:45 Expected date of discharge: 02/17/20 Attending physician: Lona Arias Consults: 02/13/20 06:11 Consult Physician Routine Consulting Provider: Gertrude Hammer Consult Reason/Comments: COPD, hypoxic respiratory failure Do you want consulting provider notified?: Yes, Notify in am Consult Physician Urgent Consulting Provider: Desean Eckert Consult Reason/Comments: CKD, CHF, refusing diuretics until she is seen by nephro Do you want consulting provider notified?: Yes, Notify in am 02/13/20 09:20 Consult Physician Routine Consulting Provider: Elder Vasquez Consult Reason/Comments: chf Do you want consulting provider notified?: Yes Primary care physician: Carissa Ward Hospital Course: Diagnosis on discharge: 1. Acute congestive heart failure exacerbation with pulmonary edema 2. Mild pleural effusion 3. Acute non-ST elevation myocardial infarction patient was started on IV heparin, IV heparin is off at this time patient is maintained on aspirin and Plavix cardiology are following 4. Underlying history of chronic kidney disease stage III 5. Underlying history of hypertension 6. Underlying history of coronary artery disease with history of coronary artery bypass graft surgery in 2000 7. Underlying history of diastolic congestive heart failure exacerbation her last echo cardiogram revealed normal ejection fraction 8. Underlying history of insulin-dependent diabetes mellitus 9. Underlying history of chronic obstructive pulmonary disease, with chronic hypoxic respiratory failure maintained on home oxygen 10. Underlying history of tobacco abuse 11. Underlying history of pacemaker placement 5 years ago 12. Underlying history of obstructive sleep apnea maintained on BiPAP at home 13. Anemia hemoglobin dropped today to 8.8 will monitor closely, check stools for Hemoccult Hospital course: Elza Avery is an 80-year-old female, patient of Dr. Ward, who presented to [facility] with a chief complaint of worsening shortness of breath, patient was evaluated and decision was made to transfer to [facility], she has a known history of chronic kidney disease, history of congestive heart failure and history of COPD, patient was hypoxic she was given supplemental oxygen Solu-Medrol and bronchodilator updrafts, patient was resistant to taking IV diuretics before seen her liaison planner due to her kidney function. During her transfer patient had episode of chest pain and shortness of breath in the ambulance, upon arrival to the hospital she was started on BiPAP. Pulmonary consultation cardiology consultation and nephrology consultations were initiated. Patient was admitted to telemetry floor, troponin level was elevated at 0.176, BNP was elevated at 20,800, patient was started on IV heparin. Home medications were reordered including diuretics. On 02/15/2020 patient was seen and examined on the telemetry floor she is alert and oriented 3 in no apparent distress, there is no fever or chills no headache or dizziness no chest pain, shortness of breath has improved since yesterday, she is still complaining of cough, there is no nausea or vomiting no abdominal pain no diarrhea no blood in the stools no burning was urination no frequency or urgency and no hematuria On 02/16/2020 patient was seen and examined on the telemetry floor she is alert and oriented 3 in no apparent distress, there is no fever or chills no headache or dizziness no chest pain no shortness of breath no cough no nausea or vomiting no abdominal pain no diarrhea no burning with urination no frequency or urgency no hematuria, blood pressure readings are elevated nephrology and cardiology are following On 02/17/2020 patient was seen and examined on the medical floor she is alert and oriented 3 in no apparent distress there is no fever or chills no headache or dizziness no chest pain no shortness of breath no cough no nausea or vomiting no abdominal pain no diarrhea no burning was urination no frequency or urgency no hematuria patient improved significantly she is asking to be discharged home she was cleared by pulmonary and cardiology for discharge. Patient will need to follow-up with her primary care physician in 2-3 days, patient would also need to follow with cardiology, pulmonary, nephrology in the next 1-2 weeks Patient Condition at Discharge: Serious Plan - Discharge Summary Discharge Rx Participant: No New Discharge Prescriptions: New hydrALAZINE HCL [Apresoline] 100 mg PO TID tab guaiFENesin [Mucinex] 600 mg PO Q12HR PRN tablet.er PRN Reason: Cough Sodium Bicarbonate Tab 650 mg PO QID tab Continue Insulin Detemir (Levemir) [Levemir] 20 unit SQ HS Insulin Lispro [humaLOG Kwikpen] See Protocol SQ AC-TID PRN PRN Reason: Blood Sugar - High Temazepam 30 mg PO HS Simvastatin [Zocor] 5 mg PO HS Carvedilol [Coreg] 6.25 mg PO BID-W/MEALS 30 Days #60 tab Clopidogrel [Plavix] 75 mg PO DAILY 30 Days #30 tab Aspirin 81 mg PO DAILY 30 Days #30 chew Losartan Potassium 100 mg PO DAILY Torsemide [Demadex] 20 mg PO DAILY PRN PRN Reason: SOB Isosorbide Mononitrate ER [Imdur] 30 mg PO DAILY Insulin Lispro [humaLOG Kwikpen] 10 unit SQ AC-TID Discharge Medication List Insulin Detemir (Levemir) [Levemir] 20 unit SQ HS 04/01/16 [History] Insulin Lispro [humaLOG Kwikpen] See Protocol SQ AC-TID PRN 04/01/16 [History] Temazepam 30 mg PO HS 04/09/16 [History] Simvastatin [Zocor] 5 mg PO HS 11/29/17 [History] Aspirin 81 mg PO DAILY 30 Days #30 chew 11/17/19 [Rx] Carvedilol [Coreg] 6.25 mg PO BID-W/MEALS 30 Days #60 tab 11/17/19 [Rx] Clopidogrel [Plavix] 75 mg PO DAILY 30 Days #30 tab 11/17/19 [Rx] Isosorbide Mononitrate ER [Imdur] 30 mg PO DAILY 02/13/20 [History] Losartan Potassium 100 mg PO DAILY 02/13/20 [History] Torsemide [Demadex] 20 mg PO DAILY PRN 02/13/20 [History] Insulin Lispro [humaLOG Kwikpen] 10 unit SQ AC-TID 02/14/20 [History] Sodium Bicarbonate Tab 650 mg PO QID tab 02/17/20 [Rx] guaiFENesin [Mucinex] 600 mg PO Q12HR PRN tablet.er 02/17/20 [Rx] hydrALAZINE HCL [Apresoline] 100 mg PO TID tab 02/17/20 [Rx] Follow up Appointment(s)/Referral(s): Carissa Ward MD [Primary Care Provider] - 1-2 days Roberth Ervin DO [REFERRING] - 1 Week (Please schedule an appointment with your marine firer.) Usman Guillen DO [STAFF PHYSICIAN] - 1 Week
--- NOTE | 2020-02-18 12:18 | CDI ---
Documentation Clarification Form Date: 02/18/2020 12:09:18 PM From: Jenna Walsh RN CCDS Admit Date: 02/13/2020 05:45:00 AM Patient Name: Elza Avery Visit Number: [id number] Discharge Date: 02/17/2020 07:50:00 PM ATTENTION: The Clinical Documentation Specialists (CDI) and [facility] Coding Staff appreciate your assistance in clarifying documentation. Please respond to the clarification below the line at the bottom and electronically sign. The CDI & [facility] Coding staff will review the response and follow-up if needed. Please note: Queries are made part of the Legal Health Record. If you have any questions, please contact the author of this message via ITS. Dr. Aide Arias referred the query to cardiology for accurate answer. Conflicting documentation has been found in the medical record: Type II NSTEMI is documented in the ED Note 02/12 Acute NSTEMI is documented in H&P 02/12 and following progress notes through 02/15 Patient History/Risk Factors: 80-year old female presents to the ED with shortness of breath and chest pain. Medical HX - Diastolic CHF, COPD, DM, HTN and CKD 3 Clinical Indicators: 02/12 VSS: 181/98, 82,98.0, 32, 94% nasal cannula Labs 02/12 - Troponin: 0.176, Pro BNP 57002 02/12 EKG Results: Atrial sensed ventricular paced rhythm with prolonged AV conduction Treatment: 02/12 Heparin IV x1 followed by Ivpb d/c 02/13, Coreg BID PO, Imdur PO Daily, Lasix IV x1, 02/13 Lasix IV Q 12Hr changed 02/15 to Daily, 02/16 Demadex PO BID Daily For accurate documentation please indicate the underlying etiology of the Type II UT: XXX Type 2 UT secondary to demand ischemia in the setting of Diastolic Heart Failure NSTEMI Ruled Out Unable to determine Other Condition, please specify (Last Revision: December 2017) MTDD
== END 2020-02-17 19:50 | disposition home or self-care (01) | DRG 281 ==
LOC: EC 03:25 → 3SCARD 05:45
PROVIDERS: ADMIT Internal Medicine; ATTEND Internal Medicine
PROC: 5A09357 Assistance with Respiratory Ventilation, Less than 24 Consecutive Hours, Continuous Positive Airway Pressure (ICD-10-PCS; principal; 2020-02-13)
DX: I50.33 Acute on chronic diastolic (congestive) heart failure (principal); I21.A1 Myocardial infarction type 2; J44.1 Chronic obstructive pulmonary disease with (acute) exacerbation; I13.0 Hypertensive heart and chronic kidney disease with heart failure and stage 1 through stage 4 chronic kidney disease, or unspecified chronic kidney disease; N18.4 Chronic kidney disease, stage 4 (severe); J96.11 Chronic respiratory failure with hypoxia; N17.9 Acute kidney failure, unspecified; E87.2 Acidosis; N39.0 Urinary tract infection, site not specified; Z11.59 Encounter for screening for other viral diseases; D63.1 Anemia in chronic kidney disease; E11.22 Type 2 diabetes mellitus with diabetic chronic kidney disease; Z95.1 Presence of aortocoronary bypass graft; Z99.81 Dependence on supplemental oxygen; Z79.4 Long term (current) use of insulin; E66.9 Obesity, unspecified; G47.33 Obstructive sleep apnea (adult) (pediatric); E89.0 Postprocedural hypothyroidism; F17.210 Nicotine dependence, cigarettes, uncomplicated; I25.10 Atherosclerotic heart disease of native coronary artery without angina pectoris; I08.1 Rheumatic disorders of both mitral and tricuspid valves; E78.5 Hyperlipidemia, unspecified; E87.5 Hyperkalemia; I25.2 Old myocardial infarction; I16.0 Hypertensive urgency; B96.89 Other specified bacterial agents as the cause of diseases classified elsewhere; Z71.3 Dietary counseling and surveillance; Z68.34 Body mass index [BMI] 34.0-34.9, adult; Z79.82 Long term (current) use of aspirin; Z79.899 Other long term (current) drug therapy; Z79.02 Long term (current) use of antithrombotics/antiplatelets; Z95.0 Presence of cardiac pacemaker; Z90.710 Acquired absence of both cervix and uterus; Z90.49 Acquired absence of other specified parts of digestive tract; Z98.42 Cataract extraction status, left eye; Z98.890 Other specified postprocedural states; Z91.19 Patient's noncompliance with other medical treatment and regimen; Z98.84 Bariatric surgery status; Z88.2 Allergy status to sulfonamides; Z80.8 Family history of malignant neoplasm of other organs or systems; Z82.49 Family history of ischemic heart disease and other diseases of the circulatory system
CPT/HCPCS: 36415; 71045; 71046; 80053; 82272; 83735; 83880; 84484; 85025; 85610; 85730; 87077; 87086; 87186; 93005; 94640; 94660; 96365; 96376; 99285

== ENCOUNTER 2020-03-09 13:03 | Inpatient (IN) | payer MEDICARE, BC ==
[2020-03-09] MEDS ORDERED: IPRATROPIUM-ALBUTEROL 3 ML NEB INHALATION STA (13:21)
--- NOTE | 2020-03-09 13:34 | ED ---
SOB HPI - General Chief Complaint: Shortness of Breath Stated Complaint: Kidney issue Time Seen by Provider: 03/09/20 13:21 Source: patient, family, RN notes reviewed, old records reviewed Mode of arrival: wheelchair Limitations: no limitations - History of Present Illness Initial Comments: This is an 80-year-old female DF for evaluation patient Dese for evaluation regards to shortness of breath. Patient was sent DF for abnormal lab values with family doctor. Patient states shortness of breath is mainly exertional significant lower extremity edema and waking. No fevers or chest pain. Patient does have some exertional chest pain MD Complaint: shortness of breath, cough -: days(s) Severity: moderate Severity scale (1-10): 7 Quality: dull Consistency: constant Improves With: oxygen, rest, bronchodilators, medication Worsens With: lying flat, exertion Known History Of: COPD, asthma, congestive heart failure Context: recent URI Associated Symptoms: chest pain, pain with inspiration - Related Data Home Medications Medication Instructions Recorded Confirmed Insulin Detemir (Levemir) [Levemir] 20 unit SQ HS 04/01/16 02/14/20 Insulin Lispro [humaLOG Kwikpen] See Protocol SQ AC-TID PRN 04/01/16 02/13/20 Temazepam 30 mg PO HS 04/09/16 02/13/20 Simvastatin [Zocor] 5 mg PO HS 11/29/17 02/13/20 Isosorbide Mononitrate ER [Imdur] 30 mg PO DAILY 02/13/20 02/14/20 Losartan Potassium 100 mg PO DAILY 02/13/20 02/13/20 Torsemide [Demadex] 20 mg PO DAILY PRN 02/13/20 02/13/20 Insulin Lispro [humaLOG Kwikpen] 10 unit SQ AC-TID 02/14/20 02/14/20 Previous Rx's Medication Instructions Recorded Aspirin 81 mg PO DAILY 30 Days #30 chew 11/17/19 Carvedilol [Coreg] 6.25 mg PO BID-W/MEALS 30 Days #60 11/17/19 tab Clopidogrel [Plavix] 75 mg PO DAILY 30 Days #30 tab 11/17/19 Sodium Bicarbonate Tab 650 mg PO QID tab 02/17/20 guaiFENesin [Mucinex] 600 mg PO Q12HR #30 tablet.er 02/17/20 hydrALAZINE HCL [Apresoline] 100 mg PO TID tab 02/17/20 Allergies Allergy/AdvReac Type Severity Reaction Status Date / Time sulfamethoxazole Allergy Unknown Verified 03/09/20 13:20 [From Bactrim] trimethoprim [From Bactrim] Allergy Unknown Verified 03/09/20 13:20 Review of Systems ROS Statement: Those systems with pertinent positive or pertinent negative responses have been documented in the HPI. ROS Other: All systems not noted in ROS Statement are negative. Past Medical History Past Medical History: Diabetes Mellitus, Hypertension, Musculoskeletal Disorder, Sleep Apnea/CPAP/BIPAP, Thyroid Disorder Additional Past Medical History / Comment(s): COPD, CHF with diastolic heart failure, hypertension, chronic kidney disease stage III, coronary artery disease with previous bypass surgery, history of pacemaker insertion 2014, diabetes mellitus, hypertension, obstructive sleep apnea, thyroid nodules, hyperl ipidemia, history of smoking in the order of [id number] History of Any Multi-Drug Resistant Organisms: ESBL Date of last positivie culture/infection: 10/18/19 MDRO Source:: ESBL URINE Past Surgical History: Appendectomy, Back Surgery, Bariatric Surgery, Coronary Bypass/CABG, Heart Catheterization, Hysterectomy, Pacemaker Additional Past Surgical History / Comment(s): LAP BAND, CATARACT LEFT EYE, NEUROMA ON FOOT, KNEE ARTHROSCOPY, PACEMAKER ([employer] 04/18/2015) Partial thyroidectomy 1999 Past Anesthesia/Blood Transfusion Reactions: No Reported Reaction Type of Cardiac Device: Permanent Pacemaker Device Placement Date:: 04/18/2015 [employer] Past Psychological History: No Psychological Hx Reported Smoking Status: Current every day smoker Past Alcohol Use History: Occasional Past Drug Use History: None Reported - Past Family History Son(s) Family Medical History: Cancer Additional Family Medical History / Comment(s): MELANOMA Father History Unknown: Yes Family Medical History: Cancer Mother Family Medical History: Coronary Artery Disease (CAD) General Exam Limitations: no limitations General appearance: alert, in no apparent distress Head exam: Present: atraumatic, normocephalic, normal inspection Eye exam: Present: normal appearance, PERRL, EOMI. Absent: scleral icterus, conjunctival injection, periorbital swelling ENT exam: Present: normal exam, mucous membranes moist Neck exam: Present: normal inspection. Absent: tenderness, meningismus, lymphadenopathy Respiratory exam: Present: normal lung sounds bilaterally, wheezes, rales, decreased breath sounds, prolonged expiratory. Absent: respiratory distress, rhonchi, stridor Cardiovascular Exam: Present: regular rate, normal rhythm, normal heart sounds. Absent: systolic murmur, diastolic murmur, rubs, gallop, clicks GI/Abdominal exam: Present: soft, normal bowel sounds. Absent: distended, tenderness, guarding, rebound, rigid Extremities exam: Present: normal inspection, full ROM, normal capillary refill, other (Bilateral lower Shorty 3+ edema). Absent: tenderness, pedal edema, joint swelling, calf tenderness Back exam: Present: normal inspection Neurological exam: Present: alert, oriented X3, CN II-XII intact Psychiatric exam: Present: normal affect, normal mood Skin exam: Present: warm, dry, intact, normal color. Absent: rash Course Vital Signs 03/09/20 03/09/20 03/09/20 13:18 14:19 14:34 Temperature 98.4 F Pulse Rate 81 70 63 Respiratory 22 Rate Blood Pressure 154/69 O2 Sat by Pulse 90 L Oximetry 03/09/20 03/09/20 14:40 14:42 Temperature Pulse Rate 60 Respiratory 20 20 Rate Blood Pressure 151/54 O2 Sat by Pulse 94 L Oximetry - Reevaluation(s) Reevaluation #1: 03/09/20 15:02 Medical records reviewed Reevaluation #2: 03/09/20 15:02 Patient is still complaining of shortness of breath - Consultations Consultation #1: Spoke with Dr Arias on room agree to admit Medical Decision Making - Medical Decision Making 80 female DF for abnormal outpatient lab tests increasing heart failure CHF and shortness of breath. Patient be admitted for diuresis nephrology and cardiology - Lab Data Result diagrams: 03/09/20 14:31 03/09/20 14:31 Lab Results 03/09/20 03/09/20 03/09/20 Range/Units 14:31 14:31 14:31 WBC 12.3 H (3.8-10.6) k/uL RBC 2.89 L (3.80-5.40) m/uL Hgb 8.2 L (11.4-16.0) gm/dL Hct 26.5 L (34.0-46.0) % MCV 91.7 (80.0-100.0) fL MCH 28.3 (25.0-35.0) pg MCHC 30.9 L (31.0-37.0) g/dL RDW 13.8 (11.5-15.5) % Plt Count 196 (150-450) k/uL Neutrophils % 76 % Lymphocytes % 7 % Monocytes % 14 % Eosinophils % 0 % Basophils % 0 % Neutrophils # 9.3 H (1.3-7.7) k/uL Lymphocytes # 0.9 L (1.0-4.8) k/uL Monocytes # 1.8 H (0-1.0) k/uL Eosinophils # 0.0 (0-0.7) k/uL Basophils # 0.0 (0-0.2) k/uL Hypochromasia Slight PT 10.7 (9.0-12.0) sec INR 1.0 (<1.2) APTT 20.9 L (22.0-30.0) sec Sodium 139 (137-145) mmol/L Potassium 4.7 (3.5-5.1) mmol/L Chloride 107 (98-107) mmol/L Carbon Dioxide 27 (22-30) mmol/L Anion Gap 5 mmol/L BUN 63 H (7-17) mg/dL Creatinine 2.52 H (0.52-1.04) mg/dL Est GFR (CKD-EPI)AfAm 20 (>60 ml/min/1.73 sqM) Est GFR (CKD-EPI)NonAf 17 (>60 ml/min/1.73 sqM) Glucose 60 L (74-99) mg/dL Plasma Lactic Acid David (0.7-2.0) mmol/L Calcium 8.9 (8.4-10.2) mg/dL Magnesium 2.5 H (1.6-2.3) mg/dL Total Bilirubin 0.4 (0.2-1.3) mg/dL AST 19 (14-36) U/L ALT 24 (4-34) U/L Alkaline Phosphatase 57 (38-126) U/L Troponin I (0.000-0.034) ng/mL Total Protein 5.8 L (6.3-8.2) g/dL Albumin 3.2 L (3.5-5.0) g/dL Blood Type Blood Type Recheck Bld Type Recheck Status Antibody Screen Spec Expiration Date 03/09/20 03/09/20 03/09/20 Range/Units 14:31 14:31 14:31 WBC (3.8-10.6) k/uL RBC (3.80-5.40) m/uL Hgb (11.4-16.0) gm/dL Hct (34.0-46.0) % MCV (80.0-100.0) fL MCH (25.0-35.0) pg MCHC (31.0-37.0) g/dL RDW (11.5-15.5) % Plt Count (150-450) k/uL Neutrophils % % Lymphocytes % % Monocytes % % Eosinophils % % Basophils % % Neutrophils # (1.3-7.7) k/uL Lymphocytes # (1.0-4.8) k/uL Monocytes # (0-1.0) k/uL Eosinophils # (0-0.7) k/uL Basophils # (0-0.2) k/uL Hypochromasia PT (9.0-12.0) sec INR (<1.2) APTT (22.0-30.0) sec Sodium (137-145) mmol/L Potassium (3.5-5.1) mmol/L Chloride (98-107) mmol/L Carbon Dioxide (22-30) mmol/L Anion Gap mmol/L BUN (7-17) mg/dL Creatinine (0.52-1.04) mg/dL Est GFR (CKD-EPI)AfAm (>60 ml/min/1.73 sqM) Est GFR (CKD-EPI)NonAf (>60 ml/min/1.73 sqM) Glucose (74-99) mg/dL Plasma Lactic Acid David 1.4 (0.7-2.0) mmol/L Calcium (8.4-10.2) mg/dL Magnesium (1.6-2.3) mg/dL Total Bilirubin (0.2-1.3) mg/dL AST (14-36) U/L ALT (4-34) U/L Alkaline Phosphatase (38-126) U/L Troponin I 0.040 H* (0.000-0.034) ng/mL Total Protein (6.3-8.2) g/dL Albumin (3.5-5.0) g/dL Blood Type O Positive Blood Type Recheck No Previous Record Bld Type Recheck Status CABO Indicated Antibody Screen NEGATIVE Spec Expiration Date 03/12/20202330 - EKG Data -: EKG Interpreted by Me (EKG paced rhythm of 62 AL 216 QRS 146 QTc 477) - Radiology Data Radiology results: report reviewed (Chest x-ray shows CHF pulmonary edema), image reviewed Disposition Clinical Impression: Systolic congestive heart failure, Congestive heart failure, Acute pulmonary edema, Acute renal failure Disposition: ADMITTED IP TO THIS HOSP Condition: Good Is patient prescribed a controlled substance at d/c from ED?: No Referrals: Carissa Ward MD [Primary Care Provider] - 1-2 days
[2020-03-09 14:46] LABS: Basophils % (A) 0 %; Eosinophils % (A) 0 %; HCT 26.5 % (34.0-46.0); HGB 8.2 gm/dL (11.4-16.0); Hypochromasia Slight; Lymphocytes # (A) 0.9 k/uL (1.0-4.8); Lymphocytes % (A) 7 %; MCH 28.3 pg (25.0-35.0); MCHC 30.9 g/dL (31.0-37.0); MCV 91.7 fL (80.0-100.0); Mean Platelet Volume 9.2; Monocytes # (A) 1.8 k/uL (0-1.0); Monocytes % (A) 14 %; Neutrophils # (A) 9.3 k/uL (1.3-7.7); Neutrophils % (A) 76 %; Platelet Count 196 k/uL (150-450); RBC 2.89 m/uL (3.80-5.40); RDW 13.8 % (11.5-15.5); WBC 12.3 k/uL (3.8-10.6)
[2020-03-09 14:57] LABS: Albumin 3.2 g/dL (3.5-5.0); Calcium 8.9 mg/dL (8.4-10.2); Magnesium 2.5 mg/dL (1.6-2.3); Potassium 4.7 mmol/L (3.5-5.1); Total Bilirubin 0.4 mg/dL (0.2-1.3); Total Protein 5.8 g/dL (6.3-8.2)
--- NOTE | 2020-03-09 15:02 | XR ---
EXAMINATION TYPE: XR chest 2V DATE OF EXAM: 03/09/2020 HISTORY: Shortness of breath. COMPARISON: None. TECHNIQUE: 2 views of the chest are submitted. FINDINGS: Demonstrated are scattered senescent parenchymal change. There is cardiomegaly with pulmonary venous congestion, basilar infiltrates and/or atelectasis with s mall effusions. Hilar and mediastinal structures are within normal limits. Degenerative changes are seen of the dorsal spine. IMPRESSION: 1. The findings suggest mild congestive failure. Correlate clinically.
[2020-03-09 15:07] LABS: Prothrombin Time 10.7 sec (9.0-12.0)
[2020-03-09 15:13] LABS: Partial Thromboplastin Time 20.9 sec (22.0-30.0)
[2020-03-09] MEDS: INSULIN ASPART (NovoLOG) 100 UNIT/ML VIAL SQ SCH (17:43)
--- NOTE | 2020-03-09 17:54 | P.HPIM ---
History of Present Illness H&P Date: 03/09/20 Chief Complaint: Shortness of breath Elza Avery is an 80-year-old female with known history of chronic kidney disease who had blood tests recently and is followed by Dr. Fletcher she was called this morning and was told to go to emergency room in regard to worsening blood test and continuing to have shortness of breath, patient was evaluated in the emergency room, blood pressure was elevated at 154/69 pulse ox 90% on 4 L via nasal cannula temperature 98.4 pulse 81 respiration 22 . chest x-ray was suggestive of congestive heart failure, hemoglobin 8.2 BUN 63 creatinine 2.52 creatinine on 02/17/2020 was 2.06 hemoglobin on 02/13/2020 was 10.8, patient stated that she had diarrhea with black stools this morning. On review of systems patient is complaining of cough and shortness of breath, she stated that she follows with Dr. Crockett he recently started her on a course of Zithromax and a course of prednisone, she had diarrhea this morning otherwise she denies any complaints there is no fever or chills no headache or dizziness no chest pain no nausea or vomiting no abdominal pain no burning with urination no frequency or urgency and no hematuria Past Medical History Past Medical History: Diabetes Mellitus, Hypertension, Musculoskeletal Disorder, Sleep Apnea/CPAP/BIPAP, Thyroid Disorder Additional Past Medical History / Comment(s): COPD, CHF with diastolic heart failure, hypertension, chronic kidney disease stage III, coronary artery disease with previous bypass surgery, history of pacemaker insertion 2014, diabetes mellitus, hypertension, obstructive sleep apnea, thyroid nodules, hyperlipid emia, history of smoking in the order of [id number] History of Any Multi-Drug Resistant Organisms: ESBL Date of last positivie culture/infection: 10/18/19 MDRO Source:: ESBL URINE Past Surgical History: Appendectomy, Back Surgery, Bariatric Surgery, Coronary Bypass/CABG, Heart Catheterization, Hysterectomy, Pacemaker Additional Past Surgical History / Comment(s): LAP BAND, CATARACT LEFT EYE, NEUROMA ON FOOT, KNEE ARTHROSCOPY, PACEMAKER ([employer] 04/18/2015) Partial th yroidectomy 1999 Past Anesthesia/Blood Transfusion Reactions: No Reported Reaction Type of Cardiac Device: Permanent Pacemaker Device Placement Date:: 04/18/2015 [employer] Past Psychological History: No Psychological Hx Reported Smoking Status: Current every day smoker Past Alcohol Use History: Occasional Past Drug Use History: None Reported - Past Family History Son(s) Family Medical History: Cancer Additional Family Medical History / Comment(s): MELANOMA Father History Unknown: Yes Family Medical History: Cancer Mother Family Medical History: Coronary Artery Disease (CAD) Medications and Allergies Home Medications Medication Instructions Recorded Confirmed Type Insulin Lispro [humaLOG Kwikpen] See Protocol SQ AC-TID 04/01/16 03/09/20 History Temazepam 30 mg PO HS 04/09/16 03/09/20 History Simvastatin [Zocor] 5 mg PO HS 11/29/17 03/09/20 History Clopidogrel [Plavix] 75 mg PO DAILY 30 Days #30 tab 11/17/19 03/09/20 Rx Isosorbide Mononitrate ER [Imdur] 30 mg PO DAILY 02/13/20 03/09/20 History Losartan Potassium 100 mg PO DAILY 02/13/20 03/09/20 History Torsemide [Demadex] 20 mg PO DAILY 02/13/20 03/09/20 History Insulin Lispro [humaLOG Kwikpen] 10 unit SQ AC-TID 02/14/20 03/09/20 History Sodium Bicarbonate Tab 650 mg PO QID tab 02/17/20 03/09/20 Rx Aspirin EC [Ecotrin Low Dose] 81 mg PO DAILY 03/09/20 03/09/20 History Azithromycin [Zithromax Tri-Ford] 500 mg PO DAILY 03/09/20 03/09/20 History Carvedilol [Coreg] 6.25 mg PO AC-BID@0900,1700 03/09/20 03/09/20 History Insulin Detemir [Levemir Flextouch] 20 unit SQ HS 03/09/20 03/09/20 History guaiFENesin [Mucinex] 600 mg PO Q12H 03/09/20 03/09/20 History hydrALAZINE HCL [Apresoline] 100 mg PO TID@0900,1600,2200 03/09/20 03/09/20 History predniSONE See Taper PO DAILY 03/09/20 03/09/20 History Allergies Allergy/AdvReac Type Severity Reaction Status Date / Time sulfamethoxazole Allergy Unknown Verified 03/09/20 13:20 [From Bactrim] trimethoprim [From Bactrim] Allergy Unknown Verified 03/09/20 13:20 Physical Exam Vitals: Vital Signs Temp Pulse Resp BP Pulse Ox 03/09/20 16:40 62 18 155/61 95 03/09/20 15:56 61 18 152/60 95 03/09/20 14:42 60 20 151/54 94 L 03/09/20 14:40 20 03/09/20 14:34 63 03/09/20 14:19 70 03/09/20 13:18 98.4 F 81 22 154/69 90 L Intake and Output 03/09/20 03/09/20 03/09/20 06:59 14:59 22:59 Other: Weight 100.244 kg In general patient is alert and oriented 3 in no apparent distress HEENT head normocephalic and atraumatic Neck is supple no JVD no goiter no lymphadenopathy Chest exam reveals a few scattered rhonchi no wheezing Cardiac exam reveals regular heart sounds no gallops no murmurs Abdomen is soft nontender no organomegaly with normal bowel sounds Extremity exam reveals 3+ edema no cyanosis or clubbing Neurological examination reveals no gross focal deficit Results CBC & Chem 7: 03/09/20 14:31 03/09/20 14:31 Labs: Abnormal Lab Results - Last 24 Hours (Table) 03/09/20 03/09/20 03/09/20 Range/Units 14:31 14:31 14:31 WBC 12.3 H (3.8-10.6) k/uL RBC 2.89 L (3.80-5.40) m/uL Hgb 8.2 L (11.4-16.0) gm/dL Hct 26.5 L (34.0-46.0) % MCHC 30.9 L (31.0-37.0) g/dL Neutrophils # 9.3 H (1.3-7.7) k/uL Lymphocytes # 0.9 L (1.0-4.8) k/uL Monocytes # 1.8 H (0-1.0) k/uL APTT 20.9 L (22.0-30.0) sec BUN 63 H (7-17) mg/dL Creatinine 2.52 H (0.52-1.04) mg/dL Glucose 60 L (74-99) mg/dL Magnesium 2.5 H (1.6-2.3) mg/dL Troponin I (0.000-0.034) ng/mL Total Protein 5.8 L (6.3-8.2) g/dL Albumin 3.2 L (3.5-5.0) g/dL 03/09/20 Range/Units 14:31 WBC (3.8-10.6) k/uL RBC (3.80-5.40) m/uL Hgb (11.4-16.0) gm/dL Hct (34.0-46.0) % MCHC (31.0-37.0) g/dL Neutrophils # (1.3-7.7) k/uL Lymphocytes # (1.0-4.8) k/uL Monocytes # (0-1.0) k/uL APTT (22.0-30.0) sec BUN (7-17) mg/dL Creatinine (0.52-1.04) mg/dL Glucose (74-99) mg/dL Magnesium (1.6-2.3) mg/dL Troponin I 0.040 H* (0.000-0.034) ng/mL Total Protein (6.3-8.2) g/dL Albumin (3.5-5.0) g/dL Assessment and Plan Plan: 1. Acute on chronic renal failure 2. Acute congestive heart failure exacerbation likely diastolic due to fluid overload 3. Acute bronchitis with bronchospasm, recently started on oral antibiotics and oral steroids by Dr. Crockett as outpatient 4. Underlying history of hypertension 5. Underlying history of insulin-dependent diabetes mellitus 6. Underlying history of hyperlipidemia 7. Underlying history of coronary artery disease 8. Episode of diarrhea this morning with black stools with check stool Hemoccult and monitor CBC closely At this time will hold torsemide, start IV Lasix Consult nephrology Consult pulmonary Will follow during this admission for medical management
[2020-03-09] MEDS: FUROSEMIDE 10 MG/ML 2 ML VIAL IV SCH ×2 (18:44→23:50)
[2020-03-09] MEDS: SODIUM BICARBONATE TAB 650 MG TAB PO SCH ×2 (18:44→23:48)
[2020-03-09] MEDS: ASPIRIN 81 MG PO SCH (18:44)
[2020-03-09] MEDS: hydrALAZINE HCL 50 MG TAB PO SCH (20:36)
[2020-03-09] MEDS: ATORVASTATIN 10 MG TAB PO SCH (20:36)
[2020-03-09] MEDS: guaiFENesin 600 MG TABLET.ER PO SCH (20:36)
[2020-03-09 20:57] LABS: Glucose,Whole Blood 322 mg/dL (75-99)
[2020-03-09] MEDS: INSULIN DETEMIR (LEVEMIR) 100 UNIT/ML SYR SQ SCH (21:43)
[2020-03-09] MEDS ORDERED: TEMAZEPAM 30 MG CAP PO SCH (23:00)
[2020-03-09] MEDS: TEMAZEPAM 15 MG CAP PO SCH (23:48)
[2020-03-10 06:24] LABS: Glucose,Whole Blood 207 mg/dL (75-99)
[2020-03-10 06:27] LABS: Albumin 2.9 g/dL (3.5-5.0); Calcium 8.3 mg/dL (8.4-10.2); Total Bilirubin 0.5 mg/dL (0.2-1.3); Total Protein 5.6 g/dL (6.3-8.2)
[2020-03-10] MEDS: INSULIN ASPART (NovoLOG) 100 UNIT/ML VIAL SQ SCH ×3 (07:06→17:06)
[2020-03-10] MEDS: ISOSORBIDE MONONITRATE ER 30 MG TAB.ER.24H PO SCH (08:30)
[2020-03-10] MEDS: LOSARTAN 50 MG TAB PO SCH (08:30)
[2020-03-10] MEDS: SODIUM BICARBONATE TAB 650 MG TAB PO SCH ×4 (08:30→20:56)
[2020-03-10] MEDS: hydrALAZINE HCL 50 MG TAB PO SCH ×3 (08:30→20:56)
[2020-03-10] MEDS: FUROSEMIDE 10 MG/ML 2 ML VIAL IV SCH ×3 (08:30→23:27)
[2020-03-10] MEDS: guaiFENesin 600 MG TABLET.ER PO SCH ×2 (08:30→20:56)
[2020-03-10] MEDS: CARVEDILOL 6.25 MG TAB PO SCH ×2 (08:30→15:04)
[2020-03-10] MEDS: ASPIRIN 81 MG PO SCH (08:30)
[2020-03-10] MEDS: CLOPIDOGREL 75 MG TAB PO SCH (08:30)
[2020-03-10 08:40] LABS: Basophils % (A) 0 %; Eosinophils % (A) 0 %; HCT 26.7 % (34.0-46.0); HGB 8.4 gm/dL (11.4-16.0); Hypochromasia Moderate; Lymphocytes # (A) 1.4 k/uL (1.0-4.8); Lymphocytes % (A) 17 %; MCH 29.2 pg (25.0-35.0); MCHC 31.3 g/dL (31.0-37.0); MCV 93.3 fL (80.0-100.0); Monocytes # (A) 1.2 k/uL (0-1.0); Monocytes % (A) 15 %; Neutrophils # (A) 5.4 k/uL (1.3-7.7); Neutrophils % (A) 65 %; Platelet Count 183 k/uL (150-450); RBC 2.86 m/uL (3.80-5.40); RDW 13.7 % (11.5-15.5); WBC 8.4 k/uL (3.8-10.6)
[2020-03-10] MEDS ORDERED: predniSONE 10 MG TAB PO SCH (09:00)
[2020-03-10] MEDS ORDERED: TORSEMIDE 20 MG TAB PO SCH (09:00)
[2020-03-10] MEDS ORDERED: IPRATROPIUM-ALBUTEROL 3 ML NEB INHALATION PRN (10:03)
--- NOTE | 2020-03-10 10:06 | P.NPCON ---
History of Present Illness - Reason for Consult Consult date: 03/10/20 acute renal failure - Chief Complaint Shortness of breath - History of Present Illness This is a 80-year-old female, admitted with worsening shortness of breath and cough. She has been hospitalized twice recently in November as well as in February 2020. She is seen because of acute kidney injury and chronic kidney disease with diabetic nephropathy stage IV baseline creatinine 1.8 She is feeling somewhat depressed and supposedly her medical imaging director outside for her that she needs to be dialyzed acutely to improve her congestive heart failure She was seen recently 3 days ago by her pulmonary physician and was started on prednisone and azithromycin. Her history suggest significant for diabetes mellitus, sleep apnea, history of cardiac stent and pacemaker, bariatric surgery. A recent echocardiogram in her November 2019 at admission showed 50-55% ejection fraction and a stress test was positive on the nuclear medicine scan. Admission chest x-rays congestive heart failure. Past Medical History Past Medical History: Diabetes Mellitus, Hypertension, Musculoskeletal Disorder, Sleep Apnea/CPAP/BIPAP, Thyroid Disorder Additional Past Medical History / Comment(s): COPD, CHF with diastolic heart failure, hypertension, chronic kidney disease stage III, coronary artery disease with previous bypass surgery, history of pacemaker insertion 2014, diabetes mellitus, hypertension, obstructive sleep apnea, thyroid nodules, hyperlipidemia, history of smoking in the order of [id number] History of Any Multi-Drug Resistant Organisms: ESBL Date of last positivie culture/infection: 10/18/19 MDRO Source:: ESBL URINE Past Surgical History: Appendectomy, Back Surgery, Bariatric Surgery, Coronary Bypass/CABG, Heart Catheterization, Hysterectomy, Pacemaker Additional Past Surgical History / Comment(s): LAP BAND, CATARACT LEFT EYE, NEUROMA ON FOOT, KNEE ARTHROSCOPY, PACEMAKER ([employer] 04/18/2015) Partial thyroidectomy 1999 Past Anesthesia/Blood Transfusion Reactions: No Reported Reaction Type of Cardiac Device: Permanent Pacemaker Device Placement Date:: 04/18/2015 [employer] Past Psychological History: No Psychological Hx Reported Smoking Status: Current every day smoker Past Alcohol Use History: Occasional Past Drug Use History: None Reported - Past Family History Son(s) Family Medical History: Cancer Additional Family Medical History / Comment(s): MELANOMA Father History Unknown: Yes Family Medical History: Cancer Mother Family Medical History: Coronary Artery Disease (CAD) Medications and Allergies Home Medications Medication Instructions Recorded Confirmed Type Insulin Lispro [humaLOG Kwikpen] See Protocol SQ AC-TID 04/01/16 03/09/20 History Temazepam 30 mg PO HS 04/09/16 03/09/20 History Simvastatin [Zocor] 5 mg PO HS 11/29/17 03/09/20 History Clopidogrel [Plavix] 75 mg PO DAILY 30 Days #30 tab 11/17/19 03/09/20 Rx Isosorbide Mononitrate ER [Imdur] 30 mg PO DAILY 02/13/20 03/09/20 History Losartan Potassium 100 mg PO DAILY 02/13/20 03/09/20 History Torsemide [Demadex] 20 mg PO DAILY 02/13/20 03/09/20 History Insulin Lispro [humaLOG Kwikpen] 10 unit SQ AC-TID 02/14/20 03/09/20 History Sodium Bicarbonate Tab 650 mg PO QID tab 02/17/20 03/09/20 Rx Aspirin EC [Ecotrin Low Dose] 81 mg PO DAILY 03/09/20 03/09/20 History Azithromycin [Zithromax Tri-Ford] 500 mg PO DAILY 03/09/20 03/09/20 History Carvedilol [Coreg] 6.25 mg PO AC-BID@0900,1700 03/09/20 03/09/20 History Insulin Detemir [Levemir Flextouch] 20 unit SQ HS 03/09/20 03/09/20 History guaiFENesin [Mucinex] 600 mg PO Q12H 03/09/20 03/09/20 History hydrALAZINE HCL [Apresoline] 100 mg PO TID@0900,1600,2200 03/09/20 03/09/20 History predniSONE See Taper PO DAILY 03/09/20 03/09/20 History Allergies Allergy/AdvReac Type Severity Reaction Status Date / Time sulfamethoxazole Allergy Unknown Verified 03/09/20 13:20 [From Bactrim] trimethoprim [From Bactrim] Allergy Unknown Verified 03/09/20 13:20 Physical Exam Vitals: Vital Signs Temp Pulse Pulse Resp BP BP Pulse Ox 03/10/20 08:00 97.6 F 56 L 18 193/76 97 03/10/20 04:00 98.0 F 63 18 180/70 97 03/10/20 00:00 98.0 F 66 18 154/52 96 03/09/20 20:00 97.8 F 67 18 171/81 97 03/09/20 17:30 98.2 F 20 151/62 96 03/09/20 16:40 62 18 155/61 95 03/09/20 15:56 61 18 152/60 95 03/09/20 14:42 60 20 151/54 94 L 03/09/20 14:40 20 03/09/20 14:34 63 03/09/20 14:19 70 03/09/20 13:18 98.4 F 81 22 154/69 90 L Intake and Output 03/09/20 03/10/20 03/10/20 22:59 06:59 14:59 Intake Total 711 Output Total 525 Balance 186 Intake: Oral 711 Output: Urine 525 Other: # Voids 2 Weight 100.244 kg 102.1 kg On examination she is awake alert oriented somewhat depressed looking HEENT exam no JVP noted neck is supple no facial asymmetry Lungs are significant for bilateral fine crackles with slight end expiratory wheezing fairly good air entry bilaterally Heart sounds are unremarkable she has a paced rhythm with no murmur rub gallop noted Abdomen is soft nontender no masses felt Extreme exam was 1+ edema Neurologically awake alert oriented no focal motor deficit but she has generalized weakness Results - Lab Results Most recent lab results Calcium 8.3 mg/dL (8.4-10.2) L 03/10/20 05:57 Magnesium 2.5 mg/dL (1.6-2.3) H 03/09/20 14:31 03/10/20 07:42 03/10/20 05:57 Assessment and Plan Assessment: Impression 1. Acute kidney injury secondary to cardiorenal syndrome. Admission creatinine is 2.5 to as of yesterday and 2.49 this morning her baseline creatinine is 1.8 as of 10/12/2019. 2. Chronic kidney disease stage IV with baseline creatinine 1.8 diabetic nephropathy and GFR is in the 14th 222 range by CK D Epi equation 3. Coronary artery disease with stent and pacemaker ejection fraction is maintained at 55% dated November 2019 echocardiogram. She has a positive nuclear medicine scan for 4. History of COPD. 5. Anemia hemoglobin is 8.4 Recommendation 1. Aggressive diuresis with the aim of having at least 2 L of urine per day 2. Check iron saturation 3. Cardiology evaluation regarding positive stress test 4. Will monitor closely her hemoglobin and labs and urine output Thank you for your consultation, we'll continue to follow
--- NOTE | 2020-03-10 11:48 | P.CRDCN ---
History of Present Illness Consult date: 03/10/20 History of present illness: This is a 80-year-old female with history of diabetes mellitus, hypertension, sleep apnea, thyroid disorder, history of diastolic congestive heart failure, history of previous bypass surgery and also permanent pacemaker implantation. Patient is now admitted to the hospital with complaints of increasing shortness of breath and evidence of congestive heart failure. Her creatinine has gone up to 2.5. Patient was seen by her blueprint clerk and week ago, who recommended that she may need dialysis and wanted to be consulted by boiler helper. Patient was seen by nephrology today and recommended aggressive diuretic therapy. She denied any chest pain. There is history of positive stress test. However patient is not having any chest pains. Given her acute renal failure, no cardiac intervention is contemplated this time, as long as patient is not having angina. He patient doesn't respond to diuretic therapy, may be considered for dialysis. Recent echo cardiac rhythm showed normal LV function. No acute changes on the EKG at this time Review of Systems As per the chart Past Medical History Past Medical History: Diabetes Mellitus, Hypertension, Musculoskeletal Disorder, Sleep Apnea/CPAP/BIPAP, Thyroid Disorder Additional Past Medical History / Comment(s): COPD, CHF with diastolic heart failure, hypertension, chronic kidney disease stage III, coronary artery disease with previous bypass surgery, history of pacemaker insertion 2014, diabetes mellitus, hypertension, obstructive sleep apnea, thyroid nodules, hyperlipidemia, history of smoking in the order of [id number] History of Any Multi-Drug Resistant Organisms: ESBL Date of last positivie culture/infection: 10/18/19 MDRO Source:: ESBL URINE Past Surgical History: Appendectomy, Back Surgery, Bariatric Surgery, Coronary Bypass/CABG, Heart Catheterization, Hysterectomy, Pacemaker Additional Past Surgical History / Comment(s): LAP BAND, CATARACT LEFT EYE, NEUROMA ON FOOT, KNEE ARTHROSCOPY, PACEMAKER ([facility] 04/18/2015) Partial thyroidectomy 1999 Past Anesthesia/Blood Transfusion Reactions: No Reported Reaction Type of Cardiac Device: Permanent Pacemaker Device Placement Date:: 04/18/2015 [facility] Past Psychological History: No Psychological Hx Reported Smoking Status: Current every day smoker Past Alcohol Use History: Occasional Past Drug Use History: None Reported - Past Family History Son(s) Family Medical History: Cancer Additional Family Medical History / Comment(s): MELANOMA Father History Unknown: Yes Family Medical History: Cancer Mother Family Medical History: Coronary Artery Disease (CAD) Medications and Allergies Home Medications Medication Instructions Recorded Confirmed Type Insulin Lispro [humaLOG Kwikpen] See Protocol SQ AC-TID 04/01/16 03/09/20 History Temazepam 30 mg PO HS 04/09/16 03/09/20 History Simvastatin [Zocor] 5 mg PO HS 11/29/17 03/09/20 History Clopidogrel [Plavix] 75 mg PO DAILY 30 Days #30 tab 11/17/19 03/09/20 Rx Isosorbide Mononitrate ER [Imdur] 30 mg PO DAILY 02/13/20 03/09/20 History Losartan Potassium 100 mg PO DAILY 02/13/20 03/09/20 History Torsemide [Demadex] 20 mg PO DAILY 02/13/20 03/09/20 History Insulin Lispro [humaLOG Kwikpen] 10 unit SQ AC-TID 02/14/20 03/09/20 History Sodium Bicarbonate Tab 650 mg PO QID tab 02/17/20 03/09/20 Rx Aspirin EC [Ecotrin Low Dose] 81 mg PO DAILY 03/09/20 03/09/20 History Azithromycin [Zithromax Tri-Ford] 500 mg PO DAILY 03/09/20 03/09/20 History Carvedilol [Coreg] 6.25 mg PO AC-BID@0900,1700 03/09/20 03/09/20 History Insulin Detemir [Levemir Flextouch] 20 unit SQ HS 03/09/20 03/09/20 History guaiFENesin [Mucinex] 600 mg PO Q12H 03/09/20 03/09/20 History hydrALAZINE HCL [Apresoline] 100 mg PO TID@0900,1600,2200 03/09/20 03/09/20 History predniSONE See Taper PO DAILY 03/09/20 03/09/20 History Allergies Allergy/AdvReac Type Severity Reaction Status Date / Time sulfamethoxazole Allergy Unknown Verified 03/09/20 13:20 [From Bactrim] trimethoprim [From Bactrim] Allergy Unknown Verified 03/09/20 13:20 Physical Exam Vitals: Vital Signs Temp Pulse Pulse Resp BP BP Pulse Ox 03/10/20 11:29 97.9 F 62 18 151/66 94 L 03/10/20 11:22 60 03/10/20 11:12 60 95 03/10/20 08:00 97.6 F 56 L 18 193/76 97 03/10/20 04:00 98.0 F 63 18 180/70 97 03/10/20 00:00 98.0 F 66 18 154/52 96 03/09/20 20:00 97.8 F 67 18 171/81 97 03/09/20 17:30 98.2 F 20 151/62 96 03/09/20 16:40 62 18 155/61 95 03/09/20 15:56 61 18 152/60 95 03/09/20 14:42 60 20 151/54 94 L 03/09/20 14:40 20 03/09/20 14:34 63 03/09/20 14:19 70 03/09/20 13:18 98.4 F 81 22 154/69 90 L Intake and Output 03/09/20 03/10/20 03/10/20 22:59 06:59 14:59 Intake Total 711 Output Total 525 Balance 186 Intake: Oral 711 Output: Urine 525 Other: # Voids 2 Weight 100.244 kg 102.1 kg GENERAL EXAM: Patient is alert and oriented and doesn't appear to be in any acute distress HEENT: Normocephalic. Normal reaction of pupils, equal size, normal range of e xtraocular motion. No erythema or exudates in the throat. NECK: Mild JVD. CHEST: No chest wall deformity. LUNGS: Clear with diminished breath sounds at bases HEART: S1 and S2 normal with no audible mumurs or gallops. Regular rhythm, femorals equal on both sides.. ABDOMEN: No hepatosplenomegaly, normal bowel sounds, no guarding or rigidity. SKIN: No rashes CENTRAL NERVOUS SYSTEM: No focal deficits. EXTREMITIES: Significant edema Results 03/10/20 07:42 03/10/20 05:57 Cardiac Enzymes 03/09/20 03/09/20 03/09/20 Range/Units 14:31 14:31 17:16 AST 19 (14-36) U/L Troponin I 0.040 H* 0.037 H* (0.000-0.034) ng/mL 03/09/20 03/10/20 Range/Units 20:02 05:57 AST 25 (14-36) U/L Troponin I 0.034 (0.000-0.034) ng/mL Coagulation 03/09/20 Range/Units 14:31 PT 10.7 (9.0-12.0) sec APTT 20.9 L (22.0-30.0) sec CBC 03/09/20 03/10/20 Range/Units 14:31 07:42 WBC 12.3 H 8.4 (3.8-10.6) k/uL RBC 2.89 L 2.86 L (3.80-5.40) m/uL Hgb 8.2 L 8.4 L (11.4-16.0) gm/dL Hct 26.5 L 26.7 L (34.0-46.0) % Plt Count 196 183 (150-450) k/uL Comprehensive Metabolic Panel 03/09/20 03/10/20 Range/Units 14:31 05:57 Sodium 139 136 L (137-145) mmol/L Potassium 4.7 5.0 (3.5-5.1) mmol/L Chloride 107 105 (98-107) mmol/L Carbon Dioxide 27 25 (22-30) mmol/L BUN 63 H 68 H (7-17) mg/dL Creatinine 2.52 H 2.49 H (0.52-1.04) mg/dL Glucose 60 L 195 H (74-99) mg/dL Calcium 8.9 8.3 L (8.4-10.2) mg/dL AST 19 25 (14-36) U/L ALT 24 23 (4-34) U/L Alkaline Phosphatase 57 43 (38-126) U/L Total Protein 5.8 L 5.6 L (6.3-8.2) g/dL Albumin 3.2 L 2.9 L (3.5-5.0) g/dL Current Medications Generic Name Dose Route Start Last Admin Trade Name Freq PRN Reason Stop Dose Admin Albuterol/Ipratropium 3 ml 03/10/20 13:00 Duoneb 0.5 Mg-3 Mg/3 Ml Soln INHALATION RT-TID WILMER Aspirin 81 mg 03/09/20 17:30 03/10/20 08:30 Aspirin PO 81 mg DAILY WILMER Administration Atorvastatin Calcium 10 mg 03/09/20 21:00 03/09/20 20:36 Lipitor PO 10 mg HS WILMER Administration Carvedilol 6.25 mg 03/10/20 09:00 03/10/20 08:30 Coreg PO 6.25 mg AC-BID@0900,1700 WILMER Administration Clopidogrel Bisulfate 75 mg 03/10/20 09:00 03/10/20 08:30 Plavix PO 75 mg DAILY WILMER Administration Darbepoetin Patrice 60 mcg 03/10/20 12:00 Aranesp SQ Q7D WILMER Furosemide 20 mg 03/09/20 17:45 03/10/20 08:30 Lasix IV 20 mg Q8HR WILMER Administration Guaifenesin 600 mg 03/09/20 21:00 03/10/20 08:30 Mucinex PO 600 mg Q12HR WILMER Administration Hydralazine HCl 100 mg 03/09/20 22:00 03/10/20 08:30 Apresoline PO 100 mg TID@0900,1600,2200 WILMER Administration Insulin Aspart 10 unit 03/09/20 17:30 03/10/20 07:06 Novolog SQ 10 unit AC-TID WILMER Administration Insulin Detemir 20 unit 03/09/20 21:00 03/09/20 21:43 Levemir SQ 20 unit HS WILMER Administration Isosorbide Mononitrate 30 mg 03/10/20 09:00 03/10/20 08:30 Imdur PO 30 mg DAILY WILMER Administration Losartan Potassium 100 mg 03/10/20 09:00 03/10/20 08:30 Cozaar PO 100 mg DAILY WILMER Administration Prednisone 30 mg 03/11/20 09:00 PO DAILY WILMER Sodium Bicarbonate 650 mg 03/09/20 18:00 03/10/20 08:30 Sodium Bicarbonate Tab PO 650 mg QID WILMER Administration Temazepam 30 mg 03/09/20 23:09 03/09/20 23:48 Restoril PO 30 mg HS WILMER Administration Intake and Output 03/09/20 03/10/20 03/10/20 22:59 06:59 14:59 Intake Total 711 Output Total 525 Balance 186 Intake: Oral 711 Output: Urine 525 Other: # Voids 2 Weight 100.244 kg 102.1 kg 03/10/20 07:42 03/10/20 05:57 EKG Interpretations (text) EKG showed dual-chamber paced rhythm Assessment and Plan (1) Diastolic CHF Current Visit: Yes Status: Acute Code(s): I50.30 - UNSPECIFIED DIASTOLIC (CONGESTIVE) HEART FAILURE SNOMED Code(s): 139052177 (2) History of coronary artery disease Current Visit: Yes Status: Acute Code(s): Z86.79 - PERSONAL HISTORY OF OTHER DISEASES OF THE CIRCULATORY SYSTEM SNOMED Code(s): 450017648 (3) Acute renal failure Current Visit: Yes Status: Acute Code(s): N17.9 - ACUTE KIDNEY FAILURE, UNSPECIFIED SNOMED Code(s): 32046602 (4) Diabetes mellitus Current Visit: No Status: Acute Code(s): E11.9 - TYPE 2 DIABETES MELLITUS WITHOUT COMPLICATIONS SNOMED Code(s): 75103127 Plan: Continue with aggressive diuretic therapy as recommended by nephrology. No coronary intervention recommended at this time, Given her acute renal failure and lack of any angina symptoms. Further recommendations depend upon the clinical course. He an elevated troponin values, are not suggestive of acute coronary syndrome and probably related to acute renal failure and elevated creatinine
[2020-03-10] MEDS: IPRATROPIUM-ALBUTEROL 3 ML NEB INHALATION SCH ×2 (11:50→20:55)
--- NOTE | 2020-03-10 12:18 | P.CNPUL ---
History of Present Illness Consult date: 03/10/20 Requesting physician: Lona Arias Reason for consult: dyspnea Chief complaint: Abnormal labs, shortness of breath History of present illness: This is a very pleasant 80-year-old female patient who follows with Dr. Ward as her primary care provider. She has a history of morbid obesity, diabetes mellitus, hypertension, obstructive sleep apnea, hypothyroidism, systolic congestive heart failure, chronic kidney disease stage III, coronary artery disease with previous bypass surgery, permanent pacemaker implantation, chronic and ongoing tobacco dependence of greater than 50 years. She has been seen by Dr. Ch in our office on 03/07/2020 and treated for an acute exacerbation of COPD with Zithromax and steroids. She presented here to the hospital again yesterday after being instructed to go to the emergency room based on abnormal lab findings by nephrology. Her creatinine was up to 2.52. She is seen today in consultation on the selective care unit. She is currently awake and alert in no acute distress. Resting fairly comfortably in bed. She is maintaining O2 saturations in the low 90s on 4 L/m per nasal cannula. Chest x-ray revealed evidence of cardiomegaly and pulmonary venous congestion. White count 8.4. Hemoglobin 8.4. Sodium 136. Potassium 5.0. Creatinine 2.49. ProBNP 37,300. She's been initiated on DuoNeb inhalations, IV diuretics, Mucinex and oral prednisone taper. Review of Systems REVIEW OF SYSTEMS: CONSTITUTIONAL: Denies any recent significant weight loss or weight gain. EYES: Denies change in vision. EARS, NOSE, MOUTH, THROAT: Denies headaches, denies sore throat. CARDIOVASCULAR: Denies chest pain, palpitations or syncopal episodes. RESPIRATORY: Positive for shortness of breath, cough, congestion no hemoptysis. GASTROINTESTINAL: Denies change in appetite, denies abdominal pain GENITOURINARY: Denies hematuria, denies infections. MUSKULOSKELETAL: Denies pain, denies swelling. INTEGUMENTARY: Denies rash, denies eczema. NEUROLOGICAL: Denies recent memory loss, no recent seizure activity. PSYCHIATRIC: Denies anxiety, denies depression. HEMATOLOGIC/LYMPHATIC: Positive for anemia, denies enlarged lymph nodes. Past Medical History Past Medical History: Diabetes Mellitus, Hypertension, Musculoskeletal Disorder, Sleep Apnea/CPAP/BIPAP, Thyroid Disorder Additional Past Medical History / Comment(s): COPD, CHF with diastolic heart failure, hypertension, chronic kidney disease stage III, coronary artery disease with previous bypass surgery, history of pacemaker insertion 2014, diabetes mellitus, hypertension, obstructive sleep apnea, thyroid nodules, hyperlipidemia, history of smoking in the order of [id number] History of Any Multi-Drug Resistant Organisms: ESBL Date of last positivie culture/infection: 10/18/19 MDRO Source:: ESBL URINE Past Surgical History: Appendectomy, Back Surgery, Bariatric Surgery, Coronary Bypass/CABG, Heart Catheterization, Hysterectomy, Pacemaker Additional Past Surgical History / Comment(s): LAP BAND, CATARACT LEFT EYE, NEUROMA ON FOOT, KNEE ARTHROSCOPY, PACEMAKER ([facility] 04/18/2015) Partial thyroidectomy 1999 Past Anesthesia/Blood Transfusion Reactions: No Reported Reaction Type of Cardiac Device: Permanent Pacemaker Device Placement Date:: 04/18/2015 [facility] Past Psychological History: No Psychological Hx Reported Smoking Status: Current every day smoker Past Alcohol Use History: Occasional Past Drug Use History: None Reported - Past Family History Son(s) Family Medical History: Cancer Additional Family Medical History / Comment(s): MELANOMA Father History Unknown: Yes Family Medical History: Cancer Mother Family Medical History: Coronary Artery Disease (CAD) Medications and Allergies Home Medications Medication Instructions Recorded Confirmed Type Insulin Lispro [humaLOG Kwikpen] See Protocol SQ AC-TID 04/01/16 03/09/20 History Temazepam 30 mg PO HS 04/09/16 03/09/20 History Simvastatin [Zocor] 5 mg PO HS 11/29/17 03/09/20 History Clopidogrel [Plavix] 75 mg PO DAILY 30 Days #30 tab 11/17/19 03/09/20 Rx Isosorbide Mononitrate ER [Imdur] 30 mg PO DAILY 02/13/20 03/09/20 History Losartan Potassium 100 mg PO DAILY 02/13/20 03/09/20 History Torsemide [Demadex] 20 mg PO DAILY 02/13/20 03/09/20 History Insulin Lispro [humaLOG Kwikpen] 10 unit SQ AC-TID 02/14/20 03/09/20 History Sodium Bicarbonate Tab 650 mg PO QID tab 02/17/20 03/09/20 Rx Aspirin EC [Ecotrin Low Dose] 81 mg PO DAILY 03/09/20 03/09/20 History Azithromycin [Zithromax Tri-Ford] 500 mg PO DAILY 03/09/20 03/09/20 History Carvedilol [Coreg] 6.25 mg PO AC-BID@0900,1700 03/09/20 03/09/20 History Insulin Detemir [Levemir Flextouch] 20 unit SQ HS 03/09/20 03/09/20 History guaiFENesin [Mucinex] 600 mg PO Q12H 03/09/20 03/09/20 History hydrALAZINE HCL [Apresoline] 100 mg PO TID@0900,1600,2200 03/09/20 03/09/20 History predniSONE See Taper PO DAILY 03/09/20 03/09/20 History Allergies Allergy/AdvReac Type Severity Reaction Status Date / Time sulfamethoxazole Allergy Unknown Verified 03/09/20 13:20 [From Bactrim] trimethoprim [From Bactrim] Allergy Unknown Verified 03/09/20 13:20 Physical Exam Vitals: Vital Signs Temp Pulse Pulse Resp BP BP Pulse Ox 03/10/20 11:29 97.9 F 62 18 151/66 94 L 03/10/20 11:22 60 03/10/20 11:12 60 95 03/10/20 08:00 97.6 F 56 L 18 193/76 97 03/10/20 04:00 98.0 F 63 18 180/70 97 03/10/20 00:00 98.0 F 66 18 154/52 96 03/09/20 20:00 97.8 F 67 18 171/81 97 03/09/20 17:30 98.2 F 20 151/62 96 03/09/20 16:40 62 18 155/61 95 03/09/20 15:56 61 18 152/60 95 03/09/20 14:42 60 20 151/54 94 L 03/09/20 14:40 20 03/09/20 14:34 63 03/09/20 14:19 70 03/09/20 13:18 98.4 F 81 22 154/69 90 L Intake and Output 03/09/20 03/10/20 03/10/20 22:59 06:59 14:59 Intake Total 711 Output Total 525 Balance 186 Intake: Oral 711 Output: Urine 525 Other: # Voids 2 Weight 100.244 kg 102.1 kg GENERAL EXAM: Alert, pleasant morbidly obese 80-year-old female patient, on 4 L nasal cannula comfortable in no apparent distress. HEAD: Normocephalic. EYES: Normal reaction of pupils, equal size. NOSE: Clear with pink turbinates. THROAT: No erythema or exudates. NECK: No masses, no JVD. CHEST: No chest wall deformity. LUNGS: Equal air entry with few scattered rhonchi, crackles in the posterior bases, diminished. CVS: S1 and S2 normal with no audible murmur, regular rhythm. ABDOMEN: No hepatosplenomegaly, normal bowel sounds, no guarding or rigidity. SPINE: No scoliosis or deformity SKIN: No rashes CENTRAL NERVOUS SYSTEM: No focal deficits, tone is normal in all 4 extremities. EXTREMITIES: There is 1+ peripheral edema. No clubbing, no cyanosis. Peripheral pulses are intact. Results - Laboratory Findings CBC and BMP: 03/10/20 07:42 03/10/20 05:57 PT/INR, D-dimer PT 10.7 sec (9.0-12.0) 03/09/20 14:31 INR 1.0 (<1.2) 03/09/20 14:31 Abnormal lab findings: Abnormal Labs 03/09/20 03/09/20 03/09/20 14:31 14:31 14:31 WBC 12.3 H RBC 2.89 L Hgb 8.2 L Hct 26.5 L MCHC 30.9 L Neutrophils # 9.3 H Lymphocytes # 0.9 L Monocytes # 1.8 H APTT 20.9 L Sodium BUN 63 H Creatinine 2.52 H Glucose 60 L POC Glucose (mg/dL) Calcium Magnesium 2.5 H Troponin I Total Protein 5.8 L Albumin 3.2 L 03/09/20 03/09/20 03/09/20 14:31 17:16 20:56 WBC RBC Hgb Hct MCHC Neutrophils # Lymphocytes # Monocytes # APTT Sodium BUN Creatinine Glucose POC Glucose (mg/dL) 322 H Calcium Magnesium Troponin I 0.040 H* 0.037 H* Total Protein Albumin 03/10/20 03/10/20 03/10/20 05:57 06:23 07:42 WBC RBC 2.86 L Hgb 8.4 L Hct 26.7 L MCHC Neutrophils # Lymphocytes # Monocytes # 1.2 H APTT Sodium 136 L BUN 68 H Creatinine 2.49 H Glucose 195 H POC Glucose (mg/dL) 207 H Calcium 8.3 L Magnesium Troponin I Total Protein 5.6 L Albumin 2.9 L - Diagnostic Findings Chest x-ray: image reviewed Assessment and Plan Assessment: 1 Acute on chronic renal failure 2 Acute exacerbation of chronic obstructive pulmonary disease 3 Acute exacerbation of chronic diastolic congestive heart failure 4 Acute on chronic hypoxemic respiratory failure secondary to above 5 Chronic kidney disease, stage III 6 History of coronary artery disease status post bypass grafting 19 years ago 7 History of CHF with diastolic dysfunction, echocardiogram showed low normal EF of 50-55% moderate mitral regurgitation, trace tricuspid regurg, PA systolic of less than 35 mmHg, normal inferior vena cava with normal inspiratory collapse an estimated right atrial pressure of 5 mmHg 8 Diabetes mellitus 9 Chronic smoker, carries 50 years of smoking of less than a pack a day, and more recently started vaping in an attempt to quit smoking 10 Oxygen dependent COPD, not consistently compliant with oxygen 11 Hypertension 12 Hyperlipidemia 13 Permanent pacemaker insertion in 2014 14 Obesity, with history of lap band 15 Obstructive sleep apnea on BiPAP machine Plan The patient was seen and evaluated by Dr. Landrum Chest x-ray and labs reviewed Continue with bronchodilators and prednisone Continue diuretics Nephrology is on the case We will continue to follow and make further recommendations based on her clinical status I, the cosigning physician, performed a history & physical examination of the patient. Lungs sounds with few scattered rhonchi, crackles in posterior bases, end expiratory wheeze, diminished. Maintaining good O2 saturations in the 90s on 4 L/m per nasal cannula. I discussed the assessment and plan of care with my nurse practitioner, Kimberley Dowell. I attest to the above note as dictated by her. Time with Patient: Greater than 30
[2020-03-10 12:26] LABS: Glucose,Whole Blood 142 mg/dL (75-99)
--- NOTE | 2020-03-10 13:06 | P.PN ---
Subjective Progress Note Date: 03/10/20 Elza Avery is an 80-year-old female with known history of chronic kidney disease who had blood tests recently and is followed by Dr. Fletcher she was called this morning and was told to go to emergency room in regard to worsening blood test and continuing to have shortness of breath, patient was evaluated in the emergency room, blood pressure was elevated at 154/69 pulse ox 90% on 4 L via nasal cannula temperature 98.4 pulse 81 respiration 22 . chest x-ray was suggestive of congestive heart failure, hemoglobin 8.2 BUN 63 creatinine 2.52 creatinine on 02/17/2020 was 2.06 hemoglobin on 02/13/2020 was 10.8, patient stated that she had diarrhea with black stools this morning. On review of systems patient is complaining of cough and shortness of breath, she stated that she follows with Dr. Crockett he recently started her on a course of Zithromax and a course of prednisone, she had diarrhea this morning otherwise she denies any complaints there is no fever or chills no headache or dizziness no chest pain no nausea or vomiting no abdominal pain no burning with urination no frequency or urgency and no hematuria On 03/10/2020 patient was seen and examined on the medical floor she is alert and oriented 3 in no apparent distress, shortness of breath better than yesterday, she is still complaining of cough otherwise she denies any complaints there is no fever or chills no headache or dizziness no chest pain, no nausea or vomiting no abdominal pain no diarrhea no burning with urination no frequency or urgency and no hematuria Objective - Vital Signs Vital signs: Vital Signs Temp 97.9 F 03/10/20 11:29 Pulse 62 03/10/20 11:29 Resp 18 03/10/20 11:29 BP 151/66 03/10/20 11:29 Pulse Ox 94 L 03/10/20 11:29 Intake & Output 03/09/20 03/10/20 03/10/20 18:59 06:59 18:59 Intake Total 711 Output Total 525 Balance 186 Weight 100.244 kg 102.1 kg Intake: Oral 711 Output: Urine 525 Other: # Voids 2 - Exam In general patient is alert and oriented 3 in no apparent distress HEENT head normocephalic and atraumatic Neck is supple no JVD no goiter no lymphadenopathy Chest exam reveals a few scattered rhonchi no wheezing Cardiac exam reveals regular heart sounds no gallops no murmurs Abdomen is soft nontender no organomegaly with normal bowel sounds Extremity exam reveals 3+ edema no cyanosis or clubbing Neurological examination reveals no gross focal deficit - Labs CBC & Chem 7: 03/10/20 07:42 03/10/20 05:57 Labs: Abnormal Lab Results - Last 24 Hours (Table) 03/09/20 03/09/20 03/09/20 Range/Units 14:31 14:31 14:31 WBC 12.3 H (3.8-10.6) k/uL RBC 2.89 L (3.80-5.40) m/uL Hgb 8.2 L (11.4-16.0) gm/dL Hct 26.5 L (34.0-46.0) % MCHC 30.9 L (31.0-37.0) g/dL Neutrophils # 9.3 H (1.3-7.7) k/uL Lymphocytes # 0.9 L (1.0-4.8) k/uL Monocytes # 1.8 H (0-1.0) k/uL APTT 20.9 L (22.0-30.0) sec Sodium (137-145) mmol/L BUN 63 H (7-17) mg/dL Creatinine 2.52 H (0.52-1.04) mg/dL Glucose 60 L (74-99) mg/dL POC Glucose (mg/dL) (75-99) mg/dL Calcium (8.4-10.2) mg/dL Magnesium 2.5 H (1.6-2.3) mg/dL Troponin I (0.000-0.034) ng/mL Total Protein 5.8 L (6.3-8.2) g/dL Albumin 3.2 L (3.5-5.0) g/dL 03/09/20 03/09/20 03/09/20 Range/Units 14:31 17:16 20:56 WBC (3.8-10.6) k/uL RBC (3.80-5.40) m/uL Hgb (11.4-16.0) gm/dL Hct (34.0-46.0) % MCHC (31.0-37.0) g/dL Neutrophils # (1.3-7.7) k/uL Lymphocytes # (1.0-4.8) k/uL Monocytes # (0-1.0) k/uL APTT (22.0-30.0) sec Sodium (137-145) mmol/L BUN (7-17) mg/dL Creatinine (0.52-1.04) mg/dL Glucose (74-99) mg/dL POC Glucose (mg/dL) 322 H (75-99) mg/dL Calcium (8.4-10.2) mg/dL Magnesium (1.6-2.3) mg/dL Troponin I 0.040 H* 0.037 H* (0.000-0.034) ng/mL Total Protein (6.3-8.2) g/dL Albumin (3.5-5.0) g/dL 03/10/20 03/10/20 03/10/20 Range/Units 05:57 06:23 07:42 WBC (3.8-10.6) k/uL RBC 2.86 L (3.80-5.40) m/uL Hgb 8.4 L (11.4-16.0) gm/dL Hct 26.7 L (34.0-46.0) % MCHC (31.0-37.0) g/dL Neutrophils # (1.3-7.7) k/uL Lymphocytes # (1.0-4.8) k/uL Monocytes # 1.2 H (0-1.0) k/uL APTT (22.0-30.0) sec Sodium 136 L (137-145) mmol/L BUN 68 H (7-17) mg/dL Creatinine 2.49 H (0.52-1.04) mg/dL Glucose 195 H (74-99) mg/dL POC Glucose (mg/dL) 207 H (75-99) mg/dL Calcium 8.3 L (8.4-10.2) mg/dL Magnesium (1.6-2.3) mg/dL Troponin I (0.000-0.034) ng/mL Total Protein 5.6 L (6.3-8.2) g/dL Albumin 2.9 L (3.5-5.0) g/dL 07/03/20 Range/Units 12:24 WBC (3.8-10.6) k/uL RBC (3.80-5.40) m/uL Hgb (11.4-16.0) gm/dL Hct (34.0-46.0) % MCHC (31.0-37.0) g/dL Neutrophils # (1.3-7.7) k/uL Lymphocytes # (1.0-4.8) k/uL Monocytes # (0-1.0) k/uL APTT (22.0-30.0) sec Sodium (137-145) mmol/L BUN (7-17) mg/dL Creatinine (0.52-1.04) mg/dL Glucose (74-99) mg/dL POC Glucose (mg/dL) 142 H (75-99) mg/dL Calcium (8.4-10.2) mg/dL Magnesium (1.6-2.3) mg/dL Troponin I (0.000-0.034) ng/mL Total Protein (6.3-8.2) g/dL Albumin (3.5-5.0) g/dL Assessment and Plan Plan: 1. Acute on chronic renal failure 2. Acute congestive heart failure exacerbation likely diastolic due to fluid o verload 3. Acute bronchitis with bronchospasm, recently started on oral antibiotics and oral steroids by Dr. Crockett as outpatient 4. Underlying history of hypertension 5. Underlying history of insulin-dependent diabetes mellitus 6. Underlying history of hyperlipidemia 7. Underlying history of coronary artery disease 8. Episode of diarrhea this morning with black stools with check stool Hemoccult and monitor CBC closely At this time will hold torsemide, start IV Lasix Consult nephrology Consult pulmonary Will follow during this admission for medical management
[2020-03-10] MEDS: DARBEPOETIN ALFA 60 MCG/0.3 ML SYRINGE SQ SCH (15:05)
[2020-03-10 17:11] LABS: Glucose,Whole Blood 170 mg/dL (75-99)
[2020-03-10 17:13] LABS: % Iron Saturation 5.42 (12.00-45.00)
[2020-03-10 20:31] LABS: Glucose,Whole Blood 252 mg/dL (75-99)
[2020-03-10] MEDS: INSULIN DETEMIR (LEVEMIR) 100 UNIT/ML SYR SQ SCH (20:56)
[2020-03-10] MEDS: ATORVASTATIN 10 MG TAB PO SCH (20:56)
[2020-03-10] MEDS: TEMAZEPAM 15 MG CAP PO SCH (23:15)
[2020-03-10] MEDS: guaiFENesin-Coden 100-10MG/5ML 10 ML CUP PO PRN (23:26)
[2020-03-11 06:25] LABS: Glucose,Whole Blood 156 mg/dL (75-99)
[2020-03-11] MEDS: INSULIN ASPART (NovoLOG) 100 UNIT/ML VIAL SQ SCH ×3 (07:02→17:33)
[2020-03-11] MEDS: IPRATROPIUM-ALBUTEROL 3 ML NEB INHALATION SCH ×3 (07:20→19:48)
[2020-03-11 08:46] LABS: Basophils % (A) 0 %; Eosinophils # (A) 0.2 k/uL (0-0.7); Eosinophils % (A) 2 %; HCT 25.6 % (34.0-46.0); HGB 8.1 gm/dL (11.4-16.0); Hypochromasia Moderate; Lymphocytes # (A) 1.6 k/uL (1.0-4.8); Lymphocytes % (A) 23 %; MCH 29.5 pg (25.0-35.0); MCHC 31.8 g/dL (31.0-37.0); MCV 92.9 fL (80.0-100.0); Mean Platelet Volume 8.7; Monocytes # (A) 1.1 k/uL (0-1.0); Monocytes % (A) 15 %; Neutrophils # (A) 3.9 k/uL (1.3-7.7); Neutrophils % (A) 55 %; Platelet Count 182 k/uL (150-450); RBC 2.75 m/uL (3.80-5.40); RDW 13.9 % (11.5-15.5); WBC 7.1 k/uL (3.8-10.6)
[2020-03-11 08:47] LABS: Albumin 2.8 g/dL (3.5-5.0); Calcium 8.1 mg/dL (8.4-10.2); Potassium 4.6 mmol/L (3.5-5.1); Total Bilirubin 0.4 mg/dL (0.2-1.3); Total Protein 5.3 g/dL (6.3-8.2)
[2020-03-11] MEDS ORDERED: amLODIPine 5 MG TAB PO SCH (09:00)
[2020-03-11] MEDS: FUROSEMIDE 10 MG/ML 2 ML VIAL IV SCH (09:42)
[2020-03-11] MEDS: CLOPIDOGREL 75 MG TAB PO SCH (09:43)
[2020-03-11] MEDS: ISOSORBIDE MONONITRATE ER 30 MG TAB.ER.24H PO SCH (09:43)
[2020-03-11] MEDS: guaiFENesin 600 MG TABLET.ER PO SCH ×2 (09:43→21:00)
[2020-03-11] MEDS: LOSARTAN 50 MG TAB PO SCH (09:43)
[2020-03-11] MEDS: SODIUM BICARBONATE TAB 650 MG TAB PO SCH ×4 (09:43→21:00)
[2020-03-11] MEDS: predniSONE 10 MG TAB PO SCH (09:43)
[2020-03-11] MEDS: CARVEDILOL 6.25 MG TAB PO SCH ×2 (09:44→17:34)
[2020-03-11] MEDS: ASPIRIN 81 MG PO SCH (09:44)
[2020-03-11] MEDS: hydrALAZINE HCL 50 MG TAB PO SCH ×3 (09:44→21:00)
--- NOTE | 2020-03-11 10:32 | P.PN ---
Subjective Progress Note Date: 03/11/20 Principal diagnosis: This is a 80-year-old female, admitted with worsening shortness of breath and cough. She has been hospitalized twice recently in November as well as in February. She was admitted because of worsening shortness of breath. She is because of acute kidney injury and chronic kidney disease with diabetic nephropathy stage IV baseline creatinine 1.8. She has cardiorenal syndrome She is feeling somewhat depressed and supposedly her director university outside for her that she needs to be dialyzed acutely to improve her congestive heart failure She was seen recently 3 days ago by her pulmonary physician and was started on prednisone and azithromycin. Since admission she on IV Lasix 80 every 8 she has made 4 L of urine creatinine is improved to 2.3 from 2.5. Subjectively she is slightly better but still fixated on needing dialysis. Her was in there today and we had a long discussion about the possibility that her disease could be her without dialysis at this time but dialysis is the definite option if diuretics therapy and optimization of heart failure treatment does not result in subjective improvement. So far as of today she is slightly better. Appetite has come back. Breathing is slightly better edema is slightly better Her history suggest significant for diabetes mellitus, sleep apnea, history of cardiac stent and pacemaker, bariatric surgery. A recent echocardiogram in her November 2019 at admission showed 50-55% ejection fraction and a stress test was positive on the nuclear medicine scan. Admission chest x-rays congestive heart failure. Objective - Vital Signs Vital signs: Vital Signs Temp 98.1 F 03/11/20 04:00 Pulse 77 03/11/20 07:33 Resp 18 03/11/20 07:33 BP 173/70 03/11/20 04:00 Pulse Ox 98 03/11/20 07:21 Intake & Output 03/10/20 03/11/20 03/11/20 18:59 06:59 18:59 Intake Total 240 Output Total 1000 3000 Balance -1000 -2760 Weight 102.1 kg 100.7 kg Intake: Oral 240 Output: Urine 1000 3000 On examination she is awake alert oriented somewhat depressed looking HEENT exam no JVP noted neck is supple no facial asymmetry Lungs are significant for bilateral fine crackles with slight end expiratory wheezing fairly good air entry bilaterally Heart sounds are unremarkable she has a paced rhythm with no murmur rub gallop noted Abdomen is soft nontender no masses felt Extreme exam was 1+ edema Neurologically awake alert oriented no focal motor deficit but she has generaliz ed weakness - Labs CBC & Chem 7: 03/11/20 07:43 03/11/20 07:43 Labs: Abnormal Lab Results - Last 24 Hours (Table) 03/10/20 03/10/20 03/10/20 Range/Units 05:57 12:24 17:07 RBC (3.80-5.40) m/uL Hgb (11.4-16.0) gm/dL Hct (34.0-46.0) % Monocytes # (0-1.0) k/uL BUN (7-17) mg/dL Creatinine (0.52-1.04) mg/dL POC Glucose (mg/dL) 142 H 170 H (75-99) mg/dL Calcium (8.4-10.2) mg/dL Iron 16 L (50-170) ug/dL % Saturation 5.42 L (12.00-45.00) Total Protein (6.3-8.2) g/dL Albumin (3.5-5.0) g/dL 03/10/20 03/11/20 03/11/20 Range/Units 20:29 06:23 07:43 RBC 2.75 L (3.80-5.40) m/uL Hgb 8.1 L (11.4-16.0) gm/dL Hct 25.6 L (34.0-46.0) % Monocytes # 1.1 H (0-1.0) k/uL BUN (7-17) mg/dL Creatinine (0.52-1.04) mg/dL POC Glucose (mg/dL) 252 H 156 H (75-99) mg/dL Calcium (8.4-10.2) mg/dL Iron (50-170) ug/dL % Saturation (12.00-45.00) Total Protein (6.3-8.2) g/dL Albumin (3.5-5.0) g/dL 03/11/20 Range/Units 07:43 RBC (3.80-5.40) m/uL Hgb (11.4-16.0) gm/dL Hct (34.0-46.0) % Monocytes # (0-1.0) k/uL BUN 70 H (7-17) mg/dL Creatinine 2.36 H (0.52-1.04) mg/dL POC Glucose (mg/dL) (75-99) mg/dL Calcium 8.1 L (8.4-10.2) mg/dL Iron (50-170) ug/dL % Saturation (12.00-45.00) Total Protein 5.3 L (6.3-8.2) g/dL Albumin 2.8 L (3.5-5.0) g/dL Assessment and Plan Assessment: Impression 1. Acute kidney injury secondary to cardiorenal syndrome. Admission creatinine is 2.5 , improved to 2.3 this morning. Her urine output was 4 L. Her baseline creatinine is 1.8 as of 10/12/2019. Responding with improvement on IV Lasix 80 every 8 2. Chronic kidney disease stage IV with baseline creatinine 1.8 diabetic nephropathy and GFR is in the 14th 222 range by CKD Epi equation 3. Coronary artery disease with stent and pacemaker ejection fraction is maintained at 55% dated November 2019 echocardiogram. She has a positive nuclear medicine scan for 4. History of COPD. 5. Anemia hemoglobin is 8.4, down to 8.1 today Recommendation 1. Will switch her over to Demadex 80 daily and see if he continues to have adequate diuresis. Aggressive diuresis with the aim of having at least 2 L of urine per day 2. Pending iron saturation 3. Cardiology evaluation regarding positive stress test 4. Will monitor closely her hemoglobin and labs and urine output 5. Extensive discussion with the and the regarding treatment of congestive heart failure cardiorenal syndrome and trying to avoid dialysis but that option will be used as a last resort. Both and are now convinced
--- NOTE | 2020-03-11 10:57 | P.PN ---
Subjective Progress Note Date: 03/11/20 This 80-year-old female with history of chronic diastolic CHF and also renal failure admitted with increasing shortness of breath and fluid overload. She was advised to consider dialysis by her primary shot blast equipment operator from out of town. She was seen by an apology and started on IV Lasix 80 mg. She had minimal diuresis and feeling slightly better. Customer Account Coordinator had a discussion with the family and at this point he wants continue the Demadex. If she doesn't respond dialysis needs to be considered. No complaints of chest pain. Continue current management. As far as positive stress test is concerned, we'll try to get the results of the test. He will the patient has a positive stress test, in the a bsence of any active symptoms of chest pain and acute renal failure, no intervention is contemplated at this time. Further recommendations depend upon the clinical course Objective - Vital Signs Vital signs: Vital Signs Temp 98.1 F 03/11/20 04:00 Pulse 77 03/11/20 07:33 Resp 18 03/11/20 07:33 BP 173/70 03/11/20 04:00 Pulse Ox 98 03/11/20 07:21 Intake & Output 03/10/20 03/11/20 03/11/20 18:59 06:59 18:59 Intake Total 240 Output Total 1000 3000 Balance -1000 -2760 Weight 102.1 kg 100.7 kg Intake: Oral 240 Output: Urine 1000 3000 - Exam GENERAL EXAM: Patient is alert and oriented and doesn't appear to be in any acute distress HEENT: Normocephalic. Normal reaction of pupils, equal size, normal range of extraocular motion. No erythema or exudates in the throat. NECK: No masses, no nuchal rigidity. CHEST: No chest wall deformity. LUNGS: Equal air entry with no crackles or wheeze. Diminished breath sounds at bases HEART: S1 and S2 normal with no audible mumurs or gallops. Regular rhythm, femorals equal on both sides.. ABDOMEN: No hepatosplenomegaly, normal bowel sounds, no guarding or rigidity. SKIN: No rashes CENTRAL NERVOUS SYSTEM: No focal deficits. EXTREMITIES: 2-3+ edema - Labs CBC & Chem 7: 03/11/20 07:43 03/11/20 07:43 Labs: Abnormal Lab Results - Last 24 Hours (Table) 03/10/20 03/10/20 03/10/20 Range/Units 05:57 12:24 17:07 RBC (3.80-5.40) m/uL Hgb (11.4-16.0) gm/dL Hct (34.0-46.0) % Monocytes # (0-1.0) k/uL BUN (7-17) mg/dL Creatinine (0.52-1.04) mg/dL POC Glucose (mg/dL) 142 H 170 H (75-99) mg/dL Calcium (8.4-10.2) mg/dL Iron 16 L (50-170) ug/dL % Saturation 5.42 L (12.00-45.00) Total Protein (6.3-8.2) g/dL Albumin (3.5-5.0) g/dL 03/10/20 03/11/20 03/11/20 Range/Units 20:29 06:23 07:43 RBC 2.75 L (3.80-5.40) m/uL Hgb 8.1 L (11.4-16.0) gm/dL Hct 25.6 L (34.0-46.0) % Monocytes # 1.1 H (0-1.0) k/uL BUN (7-17) mg/dL Creatinine (0.52-1.04) mg/dL POC Glucose (mg/dL) 252 H 156 H (75-99) mg/dL Calcium (8.4-10.2) mg/dL Iron (50-170) ug/dL % Saturation (12.00-45.00) Total Protein (6.3-8.2) g/dL Albumin (3.5-5.0) g/dL 03/11/20 Range/Units 07:43 RBC (3.80-5.40) m/uL Hgb (11.4-16.0) gm/dL Hct (34.0-46.0) % Monocytes # (0-1.0) k/uL BUN 70 H (7-17) mg/dL Creatinine 2.36 H (0.52-1.04) mg/dL POC Glucose (mg/dL) (75-99) mg/dL Calcium 8.1 L (8.4-10.2) mg/dL Iron (50-170) ug/dL % Saturation (12.00-45.00) Total Protein 5.3 L (6.3-8.2) g/dL Albumin 2.8 L (3.5-5.0) g/dL Assessment and Plan (1) Diastolic CHF Current Visit: Yes Status: Acute Code(s): I50.30 - UNSPECIFIED DIASTOLIC (CONGESTIVE) HEART FAILURE SNOMED Code(s): 050041015 (2) History of coronary artery disease Current Visit: Yes Status: Acute Code(s): Z86.79 - PERSONAL HISTORY OF OTHER DISEASES OF THE CIRCULATORY SYSTEM SNOMED Code(s): 067791276 (3) Acute renal failure Current Visit: Yes Status: Acute Code(s): N17.9 - ACUTE KIDNEY FAILURE, UNSPECIFIED SNOMED Code(s): 86499561 (4) Diabetes mellitus Current Visit: No Status: Acute Code(s): E11.9 - TYPE 2 DIABETES MELLITUS WITHOUT COMPLICATIONS SNOMED Code(s): 11858688 Plan: Patient's urine output has picked up. Diuretics have been changed to Demadex. Continue current management. No Cardec intervention at this time. Prognosis is guarded
[2020-03-11 12:24] LABS: Glucose,Whole Blood 228 mg/dL (75-99)
--- NOTE | 2020-03-11 13:47 | P.PN ---
Subjective Progress Note Date: 03/11/20 Principal diagnosis: Acute on chronic renal failure, acute exacerbation of chronic obstructive pulmonary disease/diastolic congestive heart failure This is a very pleasant 80-year-old female patient who follows with Dr. Ward as her primary care provider. She has a history of morbid obesity, diabetes mellitus, hypertension, obstructive sleep apnea, hypothyroidism, systolic c ongestive heart failure, chronic kidney disease stage III, coronary artery disease with previous bypass surgery, permanent pacemaker implantation, chronic and ongoing tobacco dependence of greater than 50 years. She has been seen by Dr. Ch in our office on 03/07/2020 and treated for an acute exacerbation of COPD with Zithromax and steroids. She presented here to the hospital again yesterday after being instructed to go to the emergency room based on abnormal lab findings by nephrology. Her creatinine was up to 2.52. She is seen today in consultation on the selective care unit. She is currently awake and alert in no acute distress. Resting fairly comfortably in bed. She is maintaining O2 saturations in the low 90s on 4 L/m per nasal cannula. Chest x-ray revealed evidence of cardiomegaly and pulmonary venous congestion. White count 8.4. Hemoglobin 8.4. Sodium 136. Potassium 5.0. Creatinine 2.49. ProBNP 37,300. She's been initiated on DuoNeb inhalations, IV diuretics, Mucinex and oral prednisone taper. The patient is seen today 03/11/2020 in follow-up on the selective care unit. She is currently sitting up in bed. Awake and alert in no acute distress. Maintaining O2 saturations in the upper 90s on 2 L/m per nasal cannula. White count 7.1. Hemoglobin 8.1. Sodium 1:30. Potassium 4.6. Creatinine 2.36. She remains on bronchodilators, antibiotics, diuretics. Objective - Vital Signs Vital signs: Vital Signs Temp 98.1 F 03/11/20 04:00 Pulse 80 03/11/20 13:40 Resp 18 03/11/20 13:40 BP 167/70 03/11/20 08:00 Pulse Ox 97 03/11/20 08:00 Intake & Output 03/10/20 03/11/20 03/11/20 18:59 06:59 18:59 Intake Total 240 Output Total 1000 3000 Balance -1000 -2720 Weight 102.1 kg 100.7 kg Intake: Oral 240 Output: Urine 1000 3000 - Exam GENERAL EXAM: Alert, pleasant morbidly obese 80-year-old female patient, on 2 L nasal cannula comfortable in no apparent distress. HEAD: Normocephalic. EYES: Normal reaction of pupils, equal size. NOSE: Clear with pink turbinates. THROAT: No erythema or exudates. NECK: No masses, no JVD. CHEST: No chest wall deformity. LUNGS: Equal air entry with few scattered rhonchi, crackles in the posterior bases, diminished. CVS: S1 and S2 normal with no audible murmur, regular rhythm. ABDOMEN: No hepatosplenomegaly, normal bowel sounds, no guarding or rigidity. SPINE: No scoliosis or deformity SKIN: No rashes CENTRAL NERVOUS SYSTEM: No focal deficits, tone is normal in all 4 extremities. EXTREMITIES: There is 1+ peripheral edema. No clubbing, no cyanosis. Perip heral pulses are intact. - Labs CBC & Chem 7: 03/11/20 07:43 03/11/20 07:43 Labs: Abnormal Lab Results - Last 24 Hours (Table) 03/10/20 03/10/20 03/10/20 Range/Units 05:57 17:07 20:29 RBC (3.80-5.40) m/uL Hgb (11.4-16.0) gm/dL Hct (34.0-46.0) % Monocytes # (0-1.0) k/uL BUN (7-17) mg/dL Creatinine (0.52-1.04) mg/dL POC Glucose (mg/dL) 170 H 252 H (75-99) mg/dL Calcium (8.4-10.2) mg/dL Iron 16 L (50-170) ug/dL % Saturation 5.42 L (12.00-45.00) Total Protein (6.3-8.2) g/dL Albumin (3.5-5.0) g/dL 03/11/20 03/11/20 03/11/20 Range/Units 06:23 07:43 07:43 RBC 2.75 L (3.80-5.40) m/uL Hgb 8.1 L (11.4-16.0) gm/dL Hct 25.6 L (34.0-46.0) % Monocytes # 1.1 H (0-1.0) k/uL BUN 70 H (7-17) mg/dL Creatinine 2.36 H (0.52-1.04) mg/dL POC Glucose (mg/dL) 156 H (75-99) mg/dL Calcium 8.1 L (8.4-10.2) mg/dL Iron (50-170) ug/dL % Saturation (12.00-45.00) Total Protein 5.3 L (6.3-8.2) g/dL Albumin 2.8 L (3.5-5.0) g/dL 03/11/20 Range/Units 12:10 RBC (3.80-5.40) m/uL Hgb (11.4-16.0) gm/dL Hct (34.0-46.0) % Monocytes # (0-1.0) k/uL BUN (7-17) mg/dL Creatinine (0.52-1.04) mg/dL POC Glucose (mg/dL) 228 H (75-99) mg/dL Calcium (8.4-10.2) mg/dL Iron (50-170) ug/dL % Saturation (12.00-45.00) Total Protein (6.3-8.2) g/dL Albumin (3.5-5.0) g/dL Assessment and Plan Assessment: 1 Acute on chronic renal failure 2 Acute exacerbation of chronic obstructive pulmonary disease 3 Acute exacerbation of chronic diastolic congestive heart failure 4 Acute on chronic hypoxemic respiratory failure secondary to above 5 Chronic kidney disease, stage III 6 History of coronary artery disease status post bypass grafting 19 years ago 7 History of CHF with diastolic dysfunction, echocardiogram showed low normal EF of 50-55% moderate mitral regurgitation, trace tricuspid regurg, PA systolic of less than 35 mmHg, normal inferior vena cava with normal inspiratory collapse an estimated right atrial pressure of 5 mmHg 8 Diabetes mellitus 9 Chronic smoker, carries 50 years of smoking of less than a pack a day, and more recently started vaping in an attempt to quit smoking 10 Oxygen dependent COPD, not consistently compliant with oxygen 11 Hypertension 12 Hyperlipidemia 13 Permanent pacemaker insertion in 2014 14 Obesity, with history of lap band 15 Obstructive sleep apnea on BiPAP machine Plan The patient was seen and evaluated by Dr. Landrum Currently stable from the pulmonary standpoint Continue with bronchodilators and prednisone Continue diuretics We will continue to follow and make further recommendations based on her clinical status I, the cosigning physician, performed a history & physical examination of the patient. Lungs sounds with few scattered rhonchi, crackles in posterior bases, end expiratory wheeze, diminished. Maintaining good O2 saturations in the 90s on 2 L/m per nasal cannula. I discussed the assessment and plan of care with my nurse practitioner, Kimberley Dowell. I attest to the above note as dictated by her.
--- NOTE | 2020-03-11 13:52 | P.PN ---
Subjective Progress Note Date: 03/11/20 Elza Avery is an 80-year-old female with known history of chronic kidney disease who had blood tests recently and is followed by Dr. Fletcher she was called this morning and was told to go to emergency room in regard to worsening blood test and continuing to have shortness of breath, patient was evaluated in the emergency room, blood pressure was elevated at 154/69 pulse ox 90% on 4 L via nasal cannula temperature 98.4 pulse 81 respiration 22 . chest x-ray was suggestive of congestive heart failure, hemoglobin 8.2 BUN 63 creatinine 2.52 creatinine on 02/17/2020 was 2.06 hemoglobin on 02/13/2020 was 10.8, patient stated that she had diarrhea with black stools this morning. On review of systems patient is complaining of cough and shortness of breath, she stated that she follows with Dr. Crockett he recently started her on a course of Zithromax and a course of prednisone, she had diarrhea this morning otherwise she denies any complaints there is no fever or chills no headache or dizziness no chest pain no nausea or vomiting no abdominal pain no burning with urination no frequency or urgency and no hematuria On 03/10/2020 patient was seen and examined on the medical floor she is alert and oriented 3 in no apparent distress, shortness of breath better than yesterday, she is still complaining of cough otherwise she denies any complaints there is no fever or chills no headache or dizziness no chest pain, no nausea or vomiting no abdominal pain no diarrhea no burning with urination no frequency or urgency and no hematuria Objective - Vital Signs Vital signs: Vital Signs Temp 98.1 F 03/11/20 04:00 Pulse 60 03/11/20 08:00 Resp 16 03/11/20 08:00 BP 167/70 03/11/20 08:00 Pulse Ox 97 03/11/20 08:00 Intake & Output 03/10/20 03/11/20 03/11/20 18:59 06:59 18:59 Intake Total 240 Output Total 1000 3000 Balance -1000 -2760 Weight 102.1 kg 100.7 kg Intake: Oral 240 Output: Urine 1000 3000 - Exam In general patient is alert and oriented 3 in no apparent distress HEENT head normocephalic and atraumatic Neck is supple no JVD no goiter no lymphadenopathy Chest exam reveals a few scattered rhonchi no wheezing Cardiac exam reveals regular heart sounds no gallops no murmurs Abdomen is soft nontender no organomegaly with normal bowel sounds Extremity exam reveals 3+ edema no cyanosis or clubbing Neurological examination reveals no gross focal deficit - Labs CBC & Chem 7: 03/11/20 07:43 03/11/20 07:43 Labs: Abnormal Lab Results - Last 24 Hours (Table) 03/10/20 03/10/20 03/10/20 Range/Units 05:57 17:07 20:29 RBC (3.80-5.40) m/uL Hgb (11.4-16.0) gm/dL Hct (34.0-46.0) % Monocytes # (0-1.0) k/uL BUN (7-17) mg/dL Creatinine (0.52-1.04) mg/dL POC Glucose (mg/dL) 170 H 252 H (75-99) mg/dL Calcium (8.4-10.2) mg/dL Iron 16 L (50-170) ug/dL % Saturation 5.42 L (12.00-45.00) Total Protein (6.3-8.2) g/dL Albumin (3.5-5.0) g/dL 03/11/20 03/11/20 03/11/20 Range/Units 06:23 07:43 07:43 RBC 2.75 L (3.80-5.40) m/uL Hgb 8.1 L (11.4-16.0) gm/dL Hct 25.6 L (34.0-46.0) % Monocytes # 1.1 H (0-1.0) k/uL BUN 70 H (7-17) mg/dL Creatinine 2.36 H (0.52-1.04) mg/dL POC Glucose (mg/dL) 156 H (75-99) mg/dL Calcium 8.1 L (8.4-10.2) mg/dL Iron (50-170) ug/dL % Saturation (12.00-45.00) Total Protein 5.3 L (6.3-8.2) g/dL Albumin 2.8 L (3.5-5.0) g/dL 03/11/20 Range/Units 12:10 RBC (3.80-5.40) m/uL Hgb (11.4-16.0) gm/dL Hct (34.0-46.0) % Monocytes # (0-1.0) k/uL BUN (7-17) mg/dL Creatinine (0.52-1.04) mg/dL POC Glucose (mg/dL) 228 H (75-99) mg/dL Calcium (8.4-10.2) mg/dL Iron (50-170) ug/dL % Saturation (12.00-45.00) Total Protein (6.3-8.2) g/dL Albumin (3.5-5.0) g/dL Assessment and Plan Plan: 1. Acute on chronic renal failure 2. Acute congestive heart failure exacerbation likely diastolic due to fluid overload 3. Acute bronchitis with bronchospasm, recently started on oral antibiotics and oral steroids by Dr. Crockett as outpatient 4. Underlying history of hypertension 5. Underlying history of insulin-dependent diabetes mellitus 6. Underlying history of hyperlipidemia 7. Underlying history of coronary artery disease 8. Episode of diarrhea this morning with black stools with check stool Hemoccult and monitor CBC closely At this time will hold torsemide, start IV Lasix Consult nephrology Consult pulmonary Will follow during this admission for medical management
[2020-03-11 17:04] LABS: Glucose,Whole Blood 265 mg/dL (75-99)
[2020-03-11 20:50] LABS: Glucose,Whole Blood 343 mg/dL (75-99)
[2020-03-11] MEDS: ATORVASTATIN 10 MG TAB PO SCH (21:00)
[2020-03-11] MEDS: INSULIN DETEMIR (LEVEMIR) 100 UNIT/ML SYR SQ SCH (21:00)
[2020-03-11] MEDS: TEMAZEPAM 15 MG CAP PO SCH (21:00)
[2020-03-11] MEDS: guaiFENesin-Coden 100-10MG/5ML 10 ML CUP PO PRN (23:19)
[2020-03-12 06:15] LABS: Glucose,Whole Blood 240 mg/dL (75-99)
[2020-03-12] MEDS: INSULIN ASPART (NovoLOG) 100 UNIT/ML VIAL SQ SCH ×3 (07:21→17:00)
[2020-03-12] MEDS: guaiFENesin-Coden 100-10MG/5ML 10 ML CUP PO PRN ×2 (07:21→22:05)
[2020-03-12 07:40] LABS: Albumin 2.4 g/dL (3.5-5.0); Calcium 7.6 mg/dL (8.4-10.2); Potassium 4.9 mmol/L (3.5-5.1); Total Bilirubin 0.3 mg/dL (0.2-1.3); Total Protein 4.6 g/dL (6.3-8.2)
[2020-03-12 07:50] LABS: HGB 7.4 gm/dL (11.4-16.0); Hypochromasia Slight; MCV 90.6 fL (80.0-100.0); Mean Platelet Volume 9.3; Platelet Count 183 k/uL (150-450); RBC 2.53 m/uL (3.80-5.40); WBC 7.4 k/uL (3.8-10.6)
[2020-03-12] MEDS: ISOSORBIDE MONONITRATE ER 30 MG TAB.ER.24H PO SCH (08:16)
[2020-03-12] MEDS: hydrALAZINE HCL 50 MG TAB PO SCH ×3 (08:16→21:54)
[2020-03-12] MEDS: CLOPIDOGREL 75 MG TAB PO SCH (08:16)
[2020-03-12] MEDS: guaiFENesin 600 MG TABLET.ER PO SCH ×2 (08:16→20:50)
[2020-03-12] MEDS: amLODIPine 2.5 MG TAB PO SCH (08:16)
[2020-03-12] MEDS: SODIUM BICARBONATE TAB 650 MG TAB PO SCH ×4 (08:16→21:54)
[2020-03-12] MEDS: ASPIRIN 81 MG PO SCH (08:16)
[2020-03-12] MEDS: LOSARTAN 50 MG TAB PO SCH (08:16)
[2020-03-12] MEDS: predniSONE 10 MG TAB PO SCH (08:16)
[2020-03-12] MEDS: TORSEMIDE 20 MG TAB PO SCH (08:17)
[2020-03-12] MEDS: IPRATROPIUM-ALBUTEROL 3 ML NEB INHALATION SCH ×3 (08:17→20:53)
[2020-03-12 08:59] LABS: Lymphocytes # (M) 1.63 k/uL (1.0-4.8); Monocytes # (M) 0.44 k/uL (0-1.0); Neutrophils # (M) 5.33 k/uL (1.3-7.7); Neutrophils % (M) 72 %; Nucleated Red Blood Cells 0 /100 WBC (0-0); Total Cells Counted 100
--- NOTE | 2020-03-12 09:44 | P.PN ---
Subjective Progress Note Date: 03/12/20 Principal diagnosis: This is a 80-year-old female, admitted with worsening shortness of breath and cough. She has been hospitalized twice recently in November as well as in February. She was admitted because of worsening shortness of breath. She is because of acute kidney injury and chronic kidney disease with diabetic nephropathy stage IV baseline creatinine 1.8. She has cardiorenal syndrome She is feeling somewhat depressed and supposedly her image scientist outside told her that she needs to be dialyzed acutely to improve her congestive heart failure She was seen recently 3 days ago by her pulmonary physician and was started on prednisone and azithromycin. Since admission she on IV Lasix she has made 4 L of urine creatinine is improved to 2.3 from 2.5. Subjectively she is slightly better but still fixated on needing dialysis. Her was present on 03/11/2020 and extensive discussion was had regarding why and he was hesitant at this time to start her on dialysis until all the appropriate medication changes and diuretic adjustment were made. Both of them agreed to this plan. I changed her from IV Lasix to torsemide yesterday 80 mg. This morning her urine output has dropped to 1500 mL from 4 L. She continues to have shortness of breath and has fair amount of cough with difficulty expectorating No fever chills no nausea vomiting Her past history is significant for diabetes mellitus, sleep apnea, history of cardiac stent and pacemaker, bariatric surgery. A recent echocardiogram in her November 2019 at admission showed 50-55% ejection fraction and a stress test was positive on the nuclear medicine scan. Admission chest x-rays congestive heart failure. Objective - Vital Signs Vital signs: Vital Signs Temp 98.4 F 03/12/20 04:00 Pulse 82 03/12/20 08:31 Resp 16 03/12/20 08:00 BP 157/68 03/12/20 08:00 Pulse Ox 100 03/12/20 08:00 Intake & Output 03/11/20 03/12/20 03/12/20 18:59 06:59 18:59 Intake Total 120 Output Total 1500 Balance -1380 Weight 101.2 kg Intake: Oral 120 Output: Urine 1500 On examination currently she is awake alert oriented she is on nasal cannula oxygen. HEENT exam no JVP neck is supple no facial asymmetry Lungs are significant for harsh breath sounds and occasional wheeze. No crackles were heard Heart sounds are unremarkable for any murmur rub gallop Abdomen soft nontender Extremity exam was mild edema Neurologically awake alert oriented but profoundly weak - Labs CBC & Chem 7: 03/12/20 06:31 03/12/20 06:31 Labs: Abnormal Lab Results - Last 24 Hours (Table) 03/11/20 03/11/20 03/11/20 Range/Units 12:10 17:02 20:48 RBC (3.80-5.40) m/uL Hgb (11.4-16.0) gm/dL Hct (34.0-46.0) % Sodium (137-145) mmol/L BUN (7-17) mg/dL Creatinine (0.52-1.04) mg/dL Glucose (74-99) mg/dL POC Glucose (mg/dL) 228 H 265 H 343 H (75-99) mg/dL Calcium (8.4-10.2) mg/dL AST (14-36) U/L Total Protein (6.3-8.2) g/dL Albumin (3.5-5.0) g/dL 03/12/20 03/12/20 03/12/20 Range/Units 06:14 06:31 06:31 RBC 2.53 L (3.80-5.40) m/uL Hgb 7.4 L (11.4-16.0) gm/dL Hct 23.0 L (34.0-46.0) % Sodium 135 L (137-145) mmol/L BUN 71 H (7-17) mg/dL Creatinine 2.48 H (0.52-1.04) mg/dL Glucose 187 H (74-99) mg/dL POC Glucose (mg/dL) 240 H (75-99) mg/dL Calcium 7.6 L (8.4-10.2) mg/dL AST 13 L (14-36) U/L Total Protein 4.6 L (6.3-8.2) g/dL Albumin 2.4 L (3.5-5.0) g/dL Assessment and Plan Assessment: Impression 1. Acute kidney injury secondary to cardiorenal syndrome. Admission creatinine is 2.5 , improved to 2.3 yesterday but is 2.48 again this morning. Her urine output was 4 L on IV Lasix but decreased to 1500 mL on switching over to torsemide 80 mg yesterday. Her baseline creatinine is 1.8 as of 10/12/2019. 2. Chronic kidney disease stage IV with baseline creatinine 1.8 diabetic nephropathy and GFR is in the 14th 222 range by CKD Epi equation 3. Coronary artery disease with stent and pacemaker ejection fraction is maintained at 55% dated November 2019 echocardiogram. She has a positive nuclear medicine scan for 4. History of COPD. 5. Anemia hemoglobin is 8.4, down to 8.1 and further down to 7.4 today. 6. Iron deficiency, iron saturation is 5%. 7. Blood pressure is slightly about target Recommendation 1. Continued torsemide 80 mg a day but add metolazone 10 mg. 2. We will give her Ferrlecit 125 mg 1 dose today and daily for 3 days 3. Cardiology is on the case evaluating for coronary artery disease 4. He may have to consider dialysis if she does not respond adequately to the current max dose of torsemide and metolazone 5. Reduce her amlodipine to reduce any edema that could be caused by that. Instead I have increased her Coreg
--- NOTE | 2020-03-12 11:14 | P.PN ---
Subjective Progress Note Date: 03/12/20 This 80-year-old female with history of chronic diastolic CHF and also renal failure admitted with increasing shortness of breath and fluid overload. She was advised to consider dialysis by her primary occupational analyst from out of town. She was seen by an apology and started on IV Lasix 80 mg. She had minimal diuresis and feeling slightly better. Food Quality Technician had a discussion with the family and at this point he wants continue the Demadex. If she doesn't respond dialysis needs to be considered. No complaints of chest pain. Continue current management. As far as positive stress test is concerned, we'll try to get the results of the test. He will the patient has a positive stress test, in the a bsence of any active symptoms of chest pain and acute renal failure, no intervention is contemplated at this time. Further recommendations depend upon the clinical course. 03/12/2020: This patient is admitted with increasing fluid retention and shortness of breath. Patient also has a renal failure. Patient was tried on Lasix and is currently on Bumex. Her urine output is fair but dropped compared to the previous 24 hours. Food Quality Technician has added metolazone 10 mg. If she doesn't respond. Patient may require dialysis. Patient is complaining of cough and shortness of breath and wheezing. Lungs do show expiratory wheezes. Further recommendations depend upon the clinical course. She did not have any chest pain. Given her kidney status, low Cardec intervention at this time Objective - Vital Signs Vital signs: Vital Signs Temp 98.4 F 03/12/20 04:00 Pulse 82 03/12/20 08:31 Resp 16 03/12/20 08:00 BP 157/68 03/12/20 08:00 Pulse Ox 100 03/12/20 08:00 Intake & Output 03/11/20 03/12/20 03/12/20 18:59 06:59 18:59 Intake Total 120 Output Total 1500 Balance -1380 Weight 101.2 kg Intake: Oral 120 Output: Urine 1500 Other: # Voids 1 # Bowel Movements 1 - Exam GENERAL EXAM: Patient is alert and oriented and doesn't appear to be in any acute distress HEENT: Normocephalic. Normal reaction of pupils, equal size, normal range of extraocular motion. No erythema or exudates in the throat. NECK: No masses, no nuchal rigidity. CHEST: No chest wall deformity. LUNGS: Diffuse wheezes and rhonchi HEART: S1 and S2 normal with no audible mumurs or gallops. Regular rhythm, femorals equal on both sides.. ABDOMEN: No hepatosplenomegaly, normal bowel sounds, no guarding or rigidity. SKIN: No rashes CENTRAL NERVOUS SYSTEM: No focal deficits. EXTREMITIES: 2-3+ edema - Labs CBC & Chem 7: 03/12/20 06:31 03/12/20 06:31 Labs: Abnormal Lab Results - Last 24 Hours (Table) 03/11/20 03/11/20 03/11/20 Range/Units 12:10 17:02 20:48 RBC (3.80-5.40) m/uL Hgb (11.4-16.0) gm/dL Hct (34.0-46.0) % Sodium (137-145) mmol/L BUN (7-17) mg/dL Creatinine (0.52-1.04) mg/dL Glucose (74-99) mg/dL POC Glucose (mg/dL) 228 H 265 H 343 H (75-99) mg/dL Calcium (8.4-10.2) mg/dL AST (14-36) U/L Total Protein (6.3-8.2) g/dL Albumin (3.5-5.0) g/dL 03/12/20 03/12/20 03/12/20 Range/Units 06:14 06:31 06:31 RBC 2.53 L (3.80-5.40) m/uL Hgb 7.4 L (11.4-16.0) gm/dL Hct 23.0 L (34.0-46.0) % Sodium 135 L (137-145) mmol/L BUN 71 H (7-17) mg/dL Creatinine 2.48 H (0.52-1.04) mg/dL Glucose 187 H (74-99) mg/dL POC Glucose (mg/dL) 240 H (75-99) mg/dL Calcium 7.6 L (8.4-10.2) mg/dL AST 13 L (14-36) U/L Total Protein 4.6 L (6.3-8.2) g/dL Albumin 2.4 L (3.5-5.0) g/dL Assessment and Plan (1) Diastolic CHF Current Visit: Yes Status: Acute Code(s): I50.30 - UNSPECIFIED DIASTOLIC (CONGESTIVE) HEART FAILURE SNOMED Code(s): 559372566 (2) History of coronary artery disease Current Visit: Yes Status: Acute Code(s): Z86.79 - PERSONAL HISTORY OF OTHER DISEASES OF THE CIRCULATORY SYSTEM SNOMED Code(s): 917119586 (3) Acute renal failure Current Visit: Yes Status: Acute Code(s): N17.9 - ACUTE KIDNEY FAILURE, UNSPECIFIED SNOMED Code(s): 57191883 (4) Diabetes mellitus Current Visit: No Status: Acute Code(s): E11.9 - TYPE 2 DIABETES MELLITUS WITHOUT COMPLICATIONS SNOMED Code(s): 15054020 Plan: Patient is having more wheezing and rhonchi. Her urine output is fair, but Doppler compared to yesterday. Food Quality Technician has added metolazone. Further michelle mmendations depend upon the clinical course
[2020-03-12] MEDS ORDERED: IPRATROPIUM-ALBUTEROL 3 ML NEB INHALATION PRN (11:37)
--- NOTE | 2020-03-12 12:25 | P.PN ---
Subjective Progress Note Date: 03/12/20 Elza Avery is an 80-year-old female with known history of chronic kidney disease who had blood tests recently and is followed by Dr. Fletcher she was called this morning and was told to go to emergency room in regard to worsening blood test and continuing to have shortness of breath, patient was evaluated in the emergency room, blood pressure was elevated at 154/69 pulse ox 90% on 4 L via nasal cannula temperature 98.4 pulse 81 respiration 22 . chest x-ray was suggestive of congestive heart failure, hemoglobin 8.2 BUN 63 creatinine 2.52 creatinine on 02/17/2020 was 2.06 hemoglobin on 02/13/2020 was 10.8, patient stated that she had diarrhea with black stools this morning. On review of systems patient is complaining of cough and shortness of breath, she stated that she follows with Dr. Crockett he recently started her on a course of Zithromax and a course of prednisone, she had diarrhea this morning otherwise she denies any complaints there is no fever or chills no headache or dizziness no chest pain no nausea or vomiting no abdominal pain no burning with urination no frequency or urgency and no hematuria On 03/10/2020 patient was seen and examined on the medical floor she is alert and oriented 3 in no apparent distress, shortness of breath better than yesterday, she is still complaining of cough otherwise she denies any complaints there is no fever or chills no headache or dizziness no chest pain, no nausea or vomiting no abdominal pain no diarrhea no burning with urination no frequency or urgency and no hematuria On 03/12/2020 patient was seen and examined on the medical floor she is alert and oriented in no apparent distress she is still complaining of shortness of breath with any activity she is complaining of significant lower extremity swelling otherwise she denies any complaints there is no fever or chills no headache or dizziness no chest pain no cough no nausea or vomiting no abdominal pain no diarrhea no burning with urination no frequency or urgency no hematuria Objective - Vital Signs Vital signs: Vital Signs Temp 98.4 F 03/12/20 04:00 Pulse 82 03/12/20 08:31 Resp 16 03/12/20 08:00 BP 157/68 03/12/20 08:00 Pulse Ox 100 03/12/20 08:00 Intake & Output 03/11/20 03/12/20 03/12/20 18:59 06:59 18:59 Intake Total 120 Output Total 1500 Balance -1380 Weight 101.2 kg Intake: Oral 120 Output: Urine 1500 Other: # Voids 1 # Bowel Movements 1 - Exam In general patient is alert and oriented 3 in no apparent distress HEENT head normocephalic and atraumatic Neck is supple no JVD no goiter no lymphadenopathy Chest exam reveals a few scattered rhonchi no wheezing Cardiac exam reveals regular heart sounds no gallops no murmurs Abdomen is soft nontender no organomegaly with normal bowel sounds Extremity exam reveals 3+ edema no cyanosis or clubbing Neurological examination reveals no gross focal deficit - Labs CBC & Chem 7: 03/12/20 06:31 03/12/20 06:31 Labs: Abnormal Lab Results - Last 24 Hours (Table) 03/11/20 03/11/20 03/11/20 Range/Units 12:10 17:02 20:48 RBC (3.80-5.40) m/uL Hgb (11.4-16.0) gm/dL Hct (34.0-46.0) % Sodium (137-145) mmol/L BUN (7-17) mg/dL Creatinine (0.52-1.04) mg/dL Glucose (74-99) mg/dL POC Glucose (mg/dL) 228 H 265 H 343 H (75-99) mg/dL Calcium (8.4-10.2) mg/dL AST (14-36) U/L Total Protein (6.3-8.2) g/dL Albumin (3.5-5.0) g/dL 03/12/20 03/12/20 03/12/20 Range/Units 06:14 06:31 06:31 RBC 2.53 L (3.80-5.40) m/uL Hgb 7.4 L (11.4-16.0) gm/dL Hct 23.0 L (34.0-46.0) % Sodium 135 L (137-145) mmol/L BUN 71 H (7-17) mg/dL Creatinine 2.48 H (0.52-1.04) mg/dL Glucose 187 H (74-99) mg/dL POC Glucose (mg/dL) 240 H (75-99) mg/dL Calcium 7.6 L (8.4-10.2) mg/dL AST 13 L (14-36) U/L Total Protein 4.6 L (6.3-8.2) g/dL Albumin 2.4 L (3.5-5.0) g/dL Assessment and Plan Plan: 1. Acute on chronic renal failure 2. Acute congestive heart failure exacerbation likely diastolic due to fluid overload 3. Acute bronchitis with bronchospasm, recently started on oral antibiotics and oral steroids by Dr. Crockett as outpatient 4. Underlying history of hypertension 5. Underlying history of insulin-dependent diabetes mellitus 6. Underlying history of hyperlipidemia 7. Underlying history of coronary artery disease 8. Episode of diarrhea this morning with black stools with check stool Hemoccult and monitor CBC closely At this time will hold torsemide, start IV Lasix Consult nephrology Consult pulmonary Will follow during this admission for medical management
[2020-03-12 12:35] LABS: Glucose,Whole Blood 209 mg/dL (75-99)
[2020-03-12] MEDS: CARVEDILOL 12.5 MG TAB PO SCH ×2 (13:01→17:00)
[2020-03-12] MEDS: METOLAZONE 5 MG TAB PO SCH (13:04)
--- NOTE | 2020-03-12 13:20 | P.PN ---
Subjective Progress Note Date: 03/12/20 Principal diagnosis: Acute on chronic renal failure, acute exacerbation of chronic obstructive pulmonary disease/diastolic congestive heart failure This is a very pleasant 80-year-old female patient who follows with Dr. Ward as her primary care provider. She has a history of morbid obesity, diabetes mellitus, hypertension, obstructive sleep apnea, hypothyroidism, systolic c ongestive heart failure, chronic kidney disease stage III, coronary artery disease with previous bypass surgery, permanent pacemaker implantation, chronic and ongoing tobacco dependence of greater than 50 years. She has been seen by Dr. Ch in our office on 03/07/2020 and treated for an acute exacerbation of COPD with Zithromax and steroids. She presented here to the hospital again yesterday after being instructed to go to the emergency room based on abnormal lab findings by nephrology. Her creatinine was up to 2.52. She is seen today in consultation on the selective care unit. She is currently awake and alert in no acute distress. Resting fairly comfortably in bed. She is maintaining O2 saturations in the low 90s on 4 L/m per nasal cannula. Chest x-ray revealed evidence of cardiomegaly and pulmonary venous congestion. White count 8.4. Hemoglobin 8.4. Sodium 136. Potassium 5.0. Creatinine 2.49. ProBNP 37,300. She's been initiated on DuoNeb inhalations, IV diuretics, Mucinex and oral prednisone taper. The patient is seen today 03/11/2020 in follow-up on the selective care unit. She is currently sitting up in bed. Awake and alert in no acute distress. Maintaining O2 saturations in the upper 90s on 2 L/m per nasal cannula. White count 7.1. Hemoglobin 8.1. Sodium 1:30. Potassium 4.6. Creatinine 2.36. She remains on bronchodilators, antibiotics, diuretics. Patient is seen today 03/12/2020 in follow-up on the selective care unit. Currently sitting up in a chair at the bedside. Awake and alert in no acute distress. Still with some dyspnea on minimal exertion. Maintain good O2 saturations in the mid 90s on room air. White count 7.4. Hemoglobin 7.4. Sodium 135. Potassium 4.9. Creatinine 2.48. Currently on bronchodilators, ceftriaxone, prednisone. Objective - Vital Signs Vital signs: Vital Signs Temp 98.4 F 03/12/20 04:00 Pulse 85 07/05/20 13:05 Resp 16 03/12/20 13:05 BP 111/51 03/12/20 13:05 Pulse Ox 98 03/12/20 13:05 Intake & Output 03/11/20 03/12/20 03/12/20 18:59 06:59 18:59 Intake Total 120 Output Total 1500 Balance -1380 Weight 101.2 kg Intake: Oral 120 Output: Urine 1500 Other: # Voids 1 # Bowel Movements 1 - Exam GENERAL EXAM: Alert, pleasant morbidly obese 80-year-old female patient, on room air, comfortable in no apparent distress. HEAD: Normocephalic. EYES: Normal reaction of pupils, equal size. NOSE: Clear with pink turbinates. THROAT: No erythema or exudates. NECK: No masses, no JVD. CHEST: No chest wall deformity. LUNGS: Equal air entry with few scattered rhonchi, crackles in the posterior bases, diminished. CVS: S1 and S2 normal with no audible murmur, regular rhythm. ABDOMEN: No hepatosplenomegaly, normal bowel sounds, no guarding or rigidity. SPINE: No scoliosis or deformity SKIN: No rashes CENTRAL NERVOUS SYSTEM: No focal deficits, tone is normal in all 4 extremities. EXTREMITIES: There is 1+ peripheral edema. No clubbing, no cyanosis. Peripheral pulses are intact. - Labs CBC & Chem 7: 03/12/20 06:31 03/12/20 06:31 Labs: Abnormal Lab Results - Last 24 Hours (Table) 03/11/20 03/11/20 03/12/20 Range/Units 17:02 20:48 06:14 RBC (3.80-5.40) m/uL Hgb (11.4-16.0) gm/dL Hct (34.0-46.0) % Sodium (137-145) mmol/L BUN (7-17) mg/dL Creatinine (0.52-1.04) mg/dL Glucose (74-99) mg/dL POC Glucose (mg/dL) 265 H 343 H 240 H (75-99) mg/dL Calcium (8.4-10.2) mg/dL AST (14-36) U/L Total Protein (6.3-8.2) g/dL Albumin (3.5-5.0) g/dL 03/12/20 03/12/20 03/12/20 Range/Units 06:31 06:31 12:31 RBC 2.53 L (3.80-5.40) m/uL Hgb 7.4 L (11.4-16.0) gm/dL Hct 23.0 L (34.0-46.0) % Sodium 135 L (137-145) mmol/L BUN 71 H (7-17) mg/dL Creatinine 2.48 H (0.52-1.04) mg/dL Glucose 187 H (74-99) mg/dL POC Glucose (mg/dL) 209 H (75-99) mg/dL Calcium 7.6 L (8.4-10.2) mg/dL AST 13 L (14-36) U/L Total Protein 4.6 L (6.3-8.2) g/dL Albumin 2.4 L (3.5-5.0) g/dL Assessment and Plan Assessment: 1 Acute on chronic renal failure 2 Acute exacerbation of chronic obstructive pulmonary disease 3 Acute exacerbation of chronic diastolic congestive heart failure 4 Acute on chronic hypoxemic respiratory failure secondary to above 5 Chronic kidney disease, stage III 6 History of coronary artery disease status post bypass grafting 19 years ago 7 History of CHF with diastolic dysfunction, echocardiogram showed low normal EF of 50-55% moderate mitral regurgitation, trace tricuspid regurg, PA systolic of less than 35 mmHg, normal inferior vena cava with normal inspiratory collapse an estimated right atrial pressure of 5 mmHg 8 Diabetes mellitus 9 Chronic smoker, carries 50 years of smoking of less than a pack a day, and more recently started vaping in an attempt to quit smoking 10 Oxygen dependent COPD, not consistently compliant with oxygen 11 Hypertension 12 Hyperlipidemia 13 Permanent pacemaker insertion in 2014 14 Obesity, with history of lap band 15 Obstructive sleep apnea on BiPAP machine Plan The patient was seen and evaluated by Dr. Landrum Currently stable from the pulmonary standpoint On room air Repeat chest x-ray in a.m. Continue with bronchodilators and prednisone Continue diuretics We will continue to follow and make further recommendations based on her clinical status I, the cosigning physician, performed a history & physical examination of the patient. Lungs sounds with few scattered rhonchi, crackles in posterior bases, end expiratory wheeze, diminished. Maintaining good O2 saturations in the 90s on room air.. I discussed the assessment and plan of care with my nurse practitioner, Kimberley Dowell. I attest to the above note as dictated by her.
[2020-03-12 16:58] LABS: Glucose,Whole Blood 314 mg/dL (75-99)
[2020-03-12] MEDS: SODIUM FERRIC GLUCONAT-SUCROSE 125 MG in SODIUM CHLORIDE 0.9% 100 ML IVPB SCH (16:59)
[2020-03-12] MEDS: ATORVASTATIN 10 MG TAB PO SCH (20:50)
[2020-03-12 20:53] LABS: Glucose,Whole Blood 398 mg/dL (75-99)
[2020-03-12] MEDS: INSULIN DETEMIR (LEVEMIR) 100 UNIT/ML SYR SQ SCH (20:55)
[2020-03-12] MEDS: TEMAZEPAM 15 MG CAP PO SCH (22:05)
[2020-03-13 06:20] LABS: Glucose,Whole Blood 265 mg/dL (75-99)
[2020-03-13] MEDS: CARVEDILOL 12.5 MG TAB PO SCH ×2 (06:40→17:25)
[2020-03-13] MEDS: INSULIN ASPART (NovoLOG) 100 UNIT/ML VIAL SQ SCH ×3 (06:40→17:25)
[2020-03-13] MEDS: IPRATROPIUM-ALBUTEROL 3 ML NEB INHALATION SCH ×3 (08:02→19:21)
[2020-03-13 08:03] LABS: Albumin 2.8 g/dL (3.5-5.0); Potassium 4.9 mmol/L (3.5-5.1); Total Bilirubin 0.4 mg/dL (0.2-1.3)
[2020-03-13 08:30] LABS: HCT 24.5 % (34.0-46.0); HGB 7.7 gm/dL (11.4-16.0); Hypochromasia Slight; MCH 28.6 pg (25.0-35.0); MCHC 31.6 g/dL (31.0-37.0); MCV 90.6 fL (80.0-100.0); Mean Platelet Volume 9.1; Platelet Count 194 k/uL (150-450); RDW 13.7 % (11.5-15.5); WBC 8.2 k/uL (3.8-10.6)
[2020-03-13] MEDS: SODIUM BICARBONATE TAB 650 MG TAB PO SCH ×4 (08:36→21:15)
[2020-03-13] MEDS: LOSARTAN 50 MG TAB PO SCH (08:36)
[2020-03-13] MEDS: METOLAZONE 5 MG TAB PO SCH (08:36)
[2020-03-13] MEDS: ASPIRIN 81 MG PO SCH (08:36)
[2020-03-13] MEDS: CLOPIDOGREL 75 MG TAB PO SCH (08:37)
[2020-03-13] MEDS: guaiFENesin 600 MG TABLET.ER PO SCH ×2 (08:37→21:08)
[2020-03-13] MEDS: TORSEMIDE 20 MG TAB PO SCH (08:37)
[2020-03-13] MEDS: amLODIPine 2.5 MG TAB PO SCH (08:37)
[2020-03-13] MEDS: ISOSORBIDE MONONITRATE ER 30 MG TAB.ER.24H PO SCH (08:37)
[2020-03-13] MEDS: hydrALAZINE HCL 50 MG TAB PO SCH ×3 (08:37→21:15)
[2020-03-13] MEDS: predniSONE 10 MG TAB PO SCH (08:37)
[2020-03-13 08:56] LABS: Basophils # (M) 0.08 k/uL (0-0.2); Lymphocytes # (M) 1.23 k/uL (1.0-4.8); Monocytes # (M) 0.74 k/uL (0-1.0); Neutrophils # (M) 6.15 k/uL (1.3-7.7); Neutrophils % (M) 75 %; Nucleated Red Blood Cells 0 /100 WBC (0-0); Total Cells Counted 100
[2020-03-13] MEDS: CARVEDILOL 6.25 MG TAB PO SCH (08:58)
[2020-03-13] MEDS: SODIUM FERRIC GLUCONAT-SUCROSE 125 MG in SODIUM CHLORIDE 0.9% 100 ML IVPB SCH (10:42)
[2020-03-13 11:25] LABS: Glucose,Whole Blood 347 mg/dL (75-99)
--- NOTE | 2020-03-13 13:31 | XR ---
EXAMINATION TYPE: XR chest 1V DATE OF EXAM: 03/13/2020 COMPARISON: 03/09/2020 HISTORY: Shortness of breath TECHNIQUE: Single frontal view of the chest is obtained. FINDINGS: Bilateral consolidation and pleural effusion. Postoperative change and cardiomegaly. Promi nence the right paratracheal stripe likely back presents ectatic vasculature. Cardiac device seen. No pneumothorax. Diffuse osteopenia and arthropathy of the shoulders. IMPRESSION: 1. Bilateral infiltrate and pleural effusion correlate for mild CHF otherwise consider pneumonia.
[2020-03-13] MEDS: BUMETANIDE 0.25 MG/ML 10 ML VIAL IV SCH (13:57)
[2020-03-13 14:23] VITALS: BMI 36.1
--- NOTE | 2020-03-13 15:31 | PN ---
PROGRESS NOTE Patient is seen for followup for acute kidney injury. The patient was admitted with volume overload. Her creatinine has been about 2.5 to 2.4 mg/dL mostly this admission. It is not far from where it has been previously at about 1.9 in June of 2019. Patient states she is voiding, but she remains short of breath, which is particularly worse on exertion. Her 24-hour urine output is documented at about 2.2 L. Currently patient is maintained on Zaroxolyn 10 mg daily along with Demadex 80 mg daily. I have discussed with the patient renal replacement therapy. I have advised her that we will try to diurese her with medications before starting dialysis. I have also advised her that it could be a temporary procedure if we end up starting, or she may need to stay on it. I will switch her to IV diuretics, continue with the Zaroxolyn and repeat labs in a.m. I will also discuss with her primary floor waxer, who is out of town. Her renal function is fairly stable so far. O/E Pt is awake, comfortable, alert and oriented x3 Exam of the lungs shows decreased breath sounds at the bases with basal crackles. Exam of the heart shows S1 and S2, no rub is heard. Abdomen is soft, obese nontender. Exam of the lower extremities shows edema 2+ bilateral FULL SERVICE VENDING DRIVER exam is intact, pt is moving all 4 extremities. ASSESSMENT: 1. Chronic kidney disease, NKF stage 4. Baseline creatinine 1.9 to 2 mg/dL secondary to diabetic nephropathy and cardiorenal syndrome. 2. Coronary artery disease with stent placement, ejection fraction about 55%. 3. Iron deficiency, maintained on IV iron. 4. Anemia of chronic disease as well as secondary to iron deficiency, maintained on Aranesp and receiving IV iron. PLAN: Change to IV diuretics. Decrease Cozaar. Repeat labs in a.m. with daily weights. We will start her on dialysis if she remains volume-overloaded with no improvement in diuresis. I will also order a chest x-ray for today. MMODL / IJN: [id number] / MTDD
[2020-03-13 16:30] LABS: Glucose,Whole Blood 372 mg/dL (75-99)
--- NOTE | 2020-03-13 16:39 | P.PN ---
Subjective Progress Note Date: 03/13/20 This 80-year-old female with history of chronic diastolic CHF and also renal failure admitted with increasing shortness of breath and fluid overload. She was advised to consider dialysis by her primary marketing research analyst from out of town. She was seen by an apology and started on IV Lasix 80 mg. She had minimal diuresis and feeling slightly better. Agricultural Labor Camp Manager had a discussion with the family and at this point he wants continue the Demadex. If she doesn't respond dialysis needs to be considered. No complaints of chest pain. Continue current management. As far as positive stress test is concerned, we'll try to get the results of the test. He will the patient has a positive stress test, in the a bsence of any active symptoms of chest pain and acute renal failure, no intervention is contemplated at this time. Further recommendations depend upon the clinical course. 03/12/2020: This patient is admitted with increasing fluid retention and shortness of breath. Patient also has a renal failure. Patient was tried on Lasix and is currently on Bumex. Her urine output is fair but dropped compared to the previous 24 hours. Agricultural Labor Camp Manager has added metolazone 10 mg. If she doesn't respond. Patient may require dialysis. Patient is complaining of cough and shortness of breath and wheezing. Lungs do show expiratory wheezes. Further recommendations depend upon the clinical course. She did not have any chest pain. Given her kidney status, low Cardec intervention at this time. 03/13/2020. Patient is feeling slightly better. Her lungs appeared less wheezy. Her urine output is marginal. Seen by nephrology and patient started on Zaroxolyn. She is going to be switching to IV diuretics. Patient is still short of breath with exertional activity. Being followed by pulmonology also. Dr. Montez is going to discuss the management with the her own marketing research analyst. Further recommendations depend upon the clinical course Objective - Vital Signs Vital signs: Vital Signs Temp 98.2 F 03/13/20 15:11 Pulse 61 03/13/20 15:11 Resp 18 03/13/20 15:40 BP 161/67 03/13/20 15:11 Pulse Ox 96 03/13/20 15:11 Intake & Output 03/12/20 03/13/20 03/13/20 18:59 06:59 18:59 Intake Total 798 Output Total 900 1300 1500 Balance -151 -8750 -702 Weight 101.7 kg 101.7 kg Intake: Intake, IV Titration 100 Amount cefTRIAXone 1 gm In 100 Sodium Chloride 0.9% 50 ml @ 100 mls/hr IVPB Q24HR [facility] Rx#:[id number] Oral 698 Output: Urine 900 1300 1500 Other: # Voids 3 # Bowel Movements 0 - Exam GENERAL EXAM: Patient is alert and oriented and doesn't appear to be in any acute distress HEENT: Normocephalic. Normal reaction of pupils, equal size, normal range of extraocular motion. No erythema or exudates in the throat. NECK: No masses, no nuchal rigidity. CHEST: No chest wall deformity. LUNGS: Diffuse wheezes and rhonchi HEART: S1 and S2 normal with no audible mumurs or gallops. Regular rhythm, femorals equal on both sides.. ABDOMEN: No hepatosplenomegaly, normal bowel sounds, no guarding or rigidity. SKIN: No rashes CENTRAL NERVOUS SYSTEM: No focal deficits. EXTREMITIES: 2-3+ edema - Labs CBC & Chem 7: 03/13/20 07:13 03/13/20 07:13 Labs: Abnormal Lab Results - Last 24 Hours (Table) 03/12/20 03/12/20 03/13/20 Range/Units 16:53 20:48 06:07 RBC (3.80-5.40) m/uL Hgb (11.4-16.0) gm/dL Hct (34.0-46.0) % Sodium (137-145) mmol/L BUN (7-17) mg/dL Creatinine (0.52-1.04) mg/dL Glucose (74-99) mg/dL POC Glucose (mg/dL) 314 H 398 H 265 H (75-99) mg/dL Calcium (8.4-10.2) mg/dL Total Protein (6.3-8.2) g/dL Albumin (3.5-5.0) g/dL 03/13/20 03/13/20 03/13/20 Range/Units 07:13 07:13 11:16 RBC 2.70 L (3.80-5.40) m/uL Hgb 7.7 L (11.4-16.0) gm/dL Hct 24.5 L (34.0-46.0) % Sodium 133 L (137-145) mmol/L BUN 83 H (7-17) mg/dL Creatinine 2.47 H (0.52-1.04) mg/dL Glucose 209 H (74-99) mg/dL POC Glucose (mg/dL) 347 H (75-99) mg/dL Calcium 8.0 L (8.4-10.2) mg/dL Total Protein 5.0 L (6.3-8.2) g/dL Albumin 2.8 L (3.5-5.0) g/dL 03/13/20 Range/Units 16:27 RBC (3.80-5.40) m/uL Hgb (11.4-16.0) gm/dL Hct (34.0-46.0) % Sodium (137-145) mmol/L BUN (7-17) mg/dL Creatinine (0.52-1.04) mg/dL Glucose (74-99) mg/dL POC Glucose (mg/dL) 372 H (75-99) mg/dL Calcium (8.4-10.2) mg/dL Total Protein (6.3-8.2) g/dL Albumin (3.5-5.0) g/dL Assessment and Plan (1) Diastolic CHF Current Visit: Yes Status: Acute Code(s): I50.30 - UNSPECIFIED DIASTOLIC (CONGESTIVE) HEART FAILURE SNOMED Code(s): 971595101 (2) History of coronary artery disease Current Visit: Yes Status: Acute Code(s): Z86.79 - PERSONAL HISTORY OF OTHER DISEASES OF THE CIRCULATORY SYSTEM SNOMED Code(s): 936974507 (3) Acute renal failure Current Visit: Yes Status: Acute Code(s): N17.9 - ACUTE KIDNEY FAILURE, UNSPECIFIED SNOMED Code(s): 32926780 (4) Diabetes mellitus Current Visit: No Status: Acute Code(s): E11.9 - TYPE 2 DIABETES MELLITUS WITHOUT COMPLICATIONS SNOMED Code(s): 46764711 Plan: Overall there appears to be some improvement in fluid status and respiratory status. Diuretics are being addressed by nephrology. We'll continue current medical therapy
--- NOTE | 2020-03-13 18:01 | PN ---
PROGRESS NOTE PULMONARY/CRITICAL CARE PROGRESS NOTE: DATE OF SERVICE: 03/13/2020 This is an 80-year-old female with a history of acute on chronic renal failure, COPD exacerbation and exacerbation of diastolic CHF. She has had multiple admissions to the hospital. She also suffers from chronic kidney disease, stage 3. Currently doing a bit better. Chest x-ray still shows some mild fluid overload. She does have a history of diabetes, chronic tobacco use, oxygen-dependent COPD, hypertension, hyperlipidemia and previous pacemaker insertion. All in all, the patient has been here in the hospital now for about 4 days and seems to be doing better. PHYSICAL EXAMINATION: VITAL SIGNS: Currently her vital signs are stable. Temperature is 97.9, heart rate 62, respiratory rate 18, blood pressure 144/65, mean 91. Three-liter saturation 94%. GENERAL APPEARANCE: Appears in no acute distress. HEENT: Examination is grossly unremarkable. Nasal oxygen noted. NECK: Supple. Full range of motion. No adenopathy. Neck veins are flat. CARDIOVASCULAR: Examination reveals regular rhythm and rate. Heart rate 62 beats per minute. S1, S2 normal. No S3, S4 or murmur. Heart sounds are distant. LUNGS: Lungs reveal some bibasilar crackles. A few scattered rhonchi noted. No wheezes. Breath sounds equal. ABDOMEN: Soft. Bowel sounds are heard. EXTREMITIES: Extremities reveal 1+ to 2+ pitting edema. SKIN: Without rash. NEUROLOGIC: Neurologic examination is nonfocal. LABS: Labs are reviewed. White count 8.2, hemoglobin 7.7, hematocrit 24.5, platelet count 194,000. Sodium 133, potassium 4.9, chloride 99. CO2 is 29. Anion gap is 5. BUN and creatinine were 83 and 2.47. Albumin 2.8. Microbiology is currently negative. Chest x-ray shows some mild fluid overload, bilateral pleural effusions. Medications are reviewed. Everything appears to be appropriate. ASSESSMENT: 1. Shortness of breath, multifactorial, in part related to underlying fluid overload from diastolic congestive heart failure and chronic renal insufficiency as well as chronic obstructive pulmonary disease exacerbation. 2. Acute on chronic hypoxemic respiratory failure. 3. Stage 3 chronic kidney disease. 4. History of coronary artery disease, status post bypass grafting 19 years ago. 5. Diastolic congestive heart failure with some valvular heart disease in the form of moderate mitral regurgitation and trace tricuspid regurgitation. 6. Diabetes mellitus. 7. Chronic tobacco use with ongoing tobacco use currently. 8. Oxygen-dependent chronic obstructive pulmonary disease. 9. Hypertension. 10.Hyperlipidemia. 11.Status post permanent pacemaker insertion in 2015. 12.Obesity with prior lap band procedure. 13.History of sleep apnea syndrome, currently on BiPAP. PLAN: Currently the patient seems to be improving. She continues to be watched very carefully. The patient's respiratory status has improved. Hemodynamically she is stable. She will continue on the current regimen. Additional recommendations and suggestions are forthcoming. Prognosis is guarded. She will likely need more diuretics because of her lower extremity edema. MMODL / IJN: [id number] /
--- NOTE | 2020-03-13 18:39 | P.PN ---
Subjective Progress Note Date: 03/13/20 Elza Avery is an 80-year-old female with known history of chronic kidney disease who had blood tests recently and is followed by Dr. Fletcher she was called this morning and was told to go to emergency room in regard to worsening blood test and continuing to have shortness of breath, patient was evaluated in the emergency room, blood pressure was elevated at 154/69 pulse ox 90% on 4 L via nasal cannula temperature 98.4 pulse 81 respiration 22 . chest x-ray was suggestive of congestive heart failure, hemoglobin 8.2 BUN 63 creatinine 2.52 creatinine on 02/17/2020 was 2.06 hemoglobin on 02/13/2020 was 10.8, patient stated that she had diarrhea with black stools this morning. On review of systems patient is complaining of cough and shortness of breath, she stated that she follows with Dr. Crockett he recently started her on a course of Zithromax and a course of prednisone, she had diarrhea this morning otherwise she denies any complaints there is no fever or chills no headache or dizziness no chest pain no nausea or vomiting no abdominal pain no burning with urination no frequency or urgency and no hematuria On 03/10/2020 patient was seen and examined on the medical floor she is alert and oriented 3 in no apparent distress, shortness of breath better than yesterday, she is still complaining of cough otherwise she denies any complaints there is no fever or chills no headache or dizziness no chest pain, no nausea or vomiting no abdominal pain no diarrhea no burning with urination no frequency or urgency and no hematuria On 03/12/2020 patient was seen and examined on the medical floor she is alert and oriented in no apparent distress she is still complaining of shortness of breath with any activity she is complaining of significant lower extremity swelling otherwise she denies any complaints there is no fever or chills no headache or dizziness no chest pain no cough no nausea or vomiting no abdominal pain no diarrhea no burning with urination no frequency or urgency no hematuria on 03/13/2020 patient was seen and examined on the medical floor she is alert and oriented 3 in no apparent distress she is still complaining of severe bilateral lower extremity edema and complaining of shortness of breath with any activity nephrology are following and diuretics are being adjusted, so far no significant improvement, patient is also being followed by cardiology. Otherwise patient denies any complaints there is no fever or chills no headache or dizziness no chest pain no cough no nausea or vomiting no abdominal pain no diarrhea no burning with urination no frequency or urgency and no hematuria Objective - Vital Signs Vital signs: Vital Signs Temp 98.2 F 03/13/20 15:11 Pulse 61 03/13/20 15:11 Resp 18 03/13/20 15:40 BP 161/67 03/13/20 15:11 Pulse Ox 96 03/13/20 15:11 Intake & Output 03/12/20 03/13/20 03/13/20 18:59 06:59 18:59 Intake Total 1016 Output Total 900 1300 1900 Balance -900 1300 -884 Weight 101.7 kg 101.7 kg Intake: Intake, IV Titration 200 Amount Sodium Ferric Gluconat- 100 Sucrose 125 mg In Sodium Chloride 0.9% 100 ml @ 100 mls/hr IVPB DAILY [facility] Rx#:[id number] cefTRIAXone 1 gm In 100 Sodium Chloride 0.9% 50 ml @ 100 mls/hr IVPB Q24HR [facility] Rx#:[id number] Oral 816 Output: Urine 900 1300 1900 Other: # Voids 3 # Bowel Movements 0 - Exam In general patient is alert and oriented 3 in no apparent distress HEENT head normocephalic and atraumatic Neck is supple no JVD no goiter no lymphadenopathy Chest exam reveals a few scattered rhonchi no wheezing Cardiac exam reveals regular heart sounds no gallops no murmurs Abdomen is soft nontender no organomegaly with normal bowel sounds Extremity exam reveals 3+ edema no cyanosis or clubbing Neurological examination reveals no gross focal deficit - Labs CBC & Chem 7: 03/13/20 07:13 03/13/20 07:13 Labs: Abnormal Lab Results - Last 24 Hours (Table) 03/12/20 03/13/20 03/13/20 Range/Units 20:48 06:07 07:13 RBC 2.70 L (3.80-5.40) m/uL Hgb 7.7 L (11.4-16.0) gm/dL Hct 24.5 L (34.0-46.0) % Sodium (137-145) mmol/L BUN (7-17) mg/dL Creatinine (0.52-1.04) mg/dL Glucose (74-99) mg/dL POC Glucose (mg/dL) 398 H 265 H (75-99) mg/dL Calcium (8.4-10.2) mg/dL Total Protein (6.3-8.2) g/dL Albumin (3.5-5.0) g/dL 03/13/20 03/13/20 03/13/20 Range/Units 07:13 11:16 16:27 RBC (3.80-5.40) m/uL Hgb (11.4-16.0) gm/dL Hct (34.0-46.0) % Sodium 133 L (137-145) mmol/L BUN 83 H (7-17) mg/dL Creatinine 2.47 H (0.52-1.04) mg/dL Glucose 209 H (74-99) mg/dL POC Glucose (mg/dL) 347 H 372 H (75-99) mg/dL Calcium 8.0 L (8.4-10.2) mg/dL Total Protein 5.0 L (6.3-8.2) g/dL Albumin 2.8 L (3.5-5.0) g/dL Assessment and Plan Plan: 1. Acute on chronic renal failure 2. Acute congestive heart failure exacerbation likely diastolic due to fluid overload 3. Acute bronchitis with bronchospasm, recently started on oral antibiotics and oral steroids by Dr. Crockett as outpatient 4. Underlying history of hypertension 5. Underlying history of insulin-dependent diabetes mellitus 6. Underlying history of hyperlipidemia 7. Underlying history of coronary artery disease 8. Episode of diarrhea this morning with black stools with check stool Hemoccult and monitor CBC closely At this time will hold torsemide, start IV Lasix Consult nephrology Consult pulmonary Will follow during this admission for medical management
[2020-03-13 21:04] LABS: Glucose,Whole Blood 440 mg/dL (75-99)
[2020-03-13] MEDS: INSULIN DETEMIR (LEVEMIR) 100 UNIT/ML SYR SQ SCH (21:08)
[2020-03-13] MEDS: ATORVASTATIN 10 MG TAB PO SCH (21:08)
[2020-03-13] MEDS: TEMAZEPAM 15 MG CAP PO SCH (21:08)
[2020-03-14] MEDS: BUMETANIDE 0.25 MG/ML 10 ML VIAL IV SCH ×3 (00:14→23:43)
[2020-03-14] MEDS: CARVEDILOL 12.5 MG TAB PO SCH ×2 (06:10→17:23)
[2020-03-14 06:47] LABS: Glucose,Whole Blood 194 mg/dL (75-99)
[2020-03-14] MEDS: INSULIN ASPART (NovoLOG) 100 UNIT/ML VIAL SQ SCH ×3 (07:06→17:24)
[2020-03-14] MEDS: ISOSORBIDE MONONITRATE ER 30 MG TAB.ER.24H PO SCH (08:22)
[2020-03-14] MEDS: METOLAZONE 5 MG TAB PO SCH (08:22)
[2020-03-14] MEDS: LOSARTAN 25 MG TAB PO SCH (08:22)
[2020-03-14] MEDS: SODIUM BICARBONATE TAB 650 MG TAB PO SCH (08:22)
[2020-03-14] MEDS: hydrALAZINE HCL 50 MG TAB PO SCH ×3 (08:22→20:58)
[2020-03-14] MEDS: CLOPIDOGREL 75 MG TAB PO SCH (08:22)
[2020-03-14] MEDS: amLODIPine 2.5 MG TAB PO SCH (08:23)
[2020-03-14] MEDS: ASPIRIN 81 MG PO SCH (08:23)
[2020-03-14] MEDS: guaiFENesin 600 MG TABLET.ER PO SCH ×2 (08:23→20:58)
[2020-03-14] MEDS: predniSONE 10 MG TAB PO SCH (08:23)
[2020-03-14 08:43] LABS: HCT 25.8 % (34.0-46.0); MCH 27.6 pg (25.0-35.0); MCHC 30.9 g/dL (31.0-37.0); MCV 89.4 fL (80.0-100.0); Mean Platelet Volume 9.1; Platelet Count 178 k/uL (150-450); RBC 2.89 m/uL (3.80-5.40); RDW 14.1 % (11.5-15.5); WBC 8.8 k/uL (3.8-10.6)
[2020-03-14] MEDS: IPRATROPIUM-ALBUTEROL 3 ML NEB INHALATION SCH ×3 (08:45→19:45)
[2020-03-14 08:52] LABS: Albumin 2.9 g/dL (3.5-5.0); Calcium 8.1 mg/dL (8.4-10.2); Potassium 4.7 mmol/L (3.5-5.1); Total Bilirubin 0.4 mg/dL (0.2-1.3); Total Protein 5.1 g/dL (6.3-8.2)
[2020-03-14 09:40] LABS: Lymphocytes # (M) 2.64 k/uL (1.0-4.8); Monocytes # (M) 0.26 k/uL (0-1.0); Neutrophils % (M) 67 %; Nucleated Red Blood Cells 0 /100 WBC (0-0); Total Cells Counted 100
[2020-03-14] MEDS: SODIUM FERRIC GLUCONAT-SUCROSE 125 MG in SODIUM CHLORIDE 0.9% 100 ML IVPB SCH (10:26)
--- NOTE | 2020-03-14 11:25 | PN ---
PROGRESS NOTE PULMONARY/CRITICAL CARE PROGRESS NOTE: DATE OF SERVICE: 03/14/2020 This is an 80-year-old female with a history of acute on chronic renal failure, COPD, and CHF, thought to be diastolic in nature. She has had multiple admissions to the hospital. She typically presents with shortness of breath which is usually multifactorial in part related to underlying heart failure, renal failure, and COPD. She also has lower extremity edema. She is feeling a bit better today. She still has significant edema, although her legs are better today than they were yesterday. She denies any chest pain or chest pressure. She denies any fever or chills. She is not coughing up any phlegm. She is minimally short of breath. Current vital signs are reviewed, temperature is 97.4, heart rate 72, respiratory rate 20, blood pressure 106/53, mean of 70, 3 L saturation 96%. Appears in no acute distress. HEENT: Examination is grossly unremarkable. NECK: Supple. CARDIOVASCULAR: Examination reveals regular rhythm and rate. S1, S2 normal. No S3, S4, or murmur. Heart sounds are distant. LUNGS: Reveal a few scattered rhonchi and crackles. Breath sounds equal. No wheezes. ABDOMEN: Soft, but obese. Bowel sounds are noted. Extremities reveal 1+ pitting edema. Legs are improved. No cyanosis or clubbing. SKIN: Without rash. NEUROLOGIC: Examination is brief but nonfocal. White count 8.8, hemoglobin 8, hematocrit 25.8, platelet count normal. Sodium 133, potassium 4.7, chloride 94, CO2 is 30, anion gap is 9. BUN and creatinine were 99 and 2.64. Albumin 2.9. Microbiology is currently negative. Chest x-ray from yesterday shows evidence of CHF versus bibasilar infiltrates with effusion. Medications have been reviewed. ASSESSMENT: 1. Shortness of breath, multifactorial, in part related to underlying fluid overload from diastolic congestive heart failure and chronic renal insufficiency as well as chronic obstructive pulmonary disease exacerbation. 2. Acute on chronic hypoxemic respiratory failure. 3. Stage 3 chronic kidney disease. 4. History of coronary artery disease and previous bypass grafting 19 years ago. 5. Diastolic heart failure with valvular heart disease including moderate mitral regurgitation and trace tricuspid regurgitation. 6. Diabetes mellitus. 7. Chronic tobacco use with ongoing tobacco use currently. 8. Oxygen-dependent chronic obstructive pulmonary disease. 9. Hypertension. 10.Hyperlipidemia. 11.Pacemaker insertion in 2015. 12.History of lap band procedure for obesity. 13.History of sleep apnea syndrome, currently on BiPAP. PLAN: Overall, the patient's condition is a bit improved. She improved slowly. Her lower extremity edema is better. Her respiratory status is more stable. Hemodynamically, she is doing well. Additional recommendations and suggestions are forthcoming. MMLEVL / IJN: [id number] /
[2020-03-14 12:17] LABS: Glucose,Whole Blood 147 mg/dL (75-99)
--- NOTE | 2020-03-14 14:44 | PN ---
PROGRESS NOTE Patient is seen for followup for acute kidney injury, mostly cardiorenal. Patient is currently in fluid overload and acute exacerbation of CHF. She was switched over to IV Bumex yesterday. It looks like patient has had good urine output with 24 hour output at about 3.9 L. Her weight is down by about 2 kg and overall patient states she is feeling slightly better. PHYSICAL EXAMINATION: On examination today, blood pressure is 106/53, heart rate 67 per minute, she is afebrile. Examination of the heart S1, S2. Examination of the lungs, decreased breath sounds at bases. Abdomen is soft, nontender. Examination of the lower extremities shows edema 2+ bilaterally. CALIBRATION CHECKER exam is grossly intact. LABS: Show sodium of 133, potassium 4.7, chloride 94, CO2 is 30, BUN 99, creatinine 2.64, hemoglobin 8.0 g/dL. ASSESSMENT: 1. Acute kidney injury, mostly cardiorenal. Diuresing well. Patient was switched over to IV Bumex yesterday. She is tolerating that well and I will continue the IV Bumex along with Zaroxolyn for now. 2. Chronic kidney disease, NKF stage IV secondary to nephrosclerosis. Baseline creatinine at close to 2 mg/dL. 3. Metabolic acidosis associated with renal failure, currently resolved. Patient is actually alkalotic. I will discontinue the sodium bicarb. 4. Cardiomyopathy, ejection fraction about 50% with dilated left atrium and moderate mitral regurgitation. 5. Chronic obstructive pulmonary disease, currently stable. PLAN: Continue with IV Bumex. Continue with decreased dose of Cozaar. Repeat labs in a.m. If volume status does not improve and renal function continues to deteriorate. Patient will be started on renal replacement therapy as this is her third admission in the last 3 months. MMODL / IJN: [id number] /
--- NOTE | 2020-03-14 15:43 | P.PN ---
Subjective Progress Note Date: 03/14/20 This is a pleasant 80-year-old female with history of morbid obesity, diabetes, hypertension, hyperlipidemia, obstructive sleep apnea, COPD, hypothyroidism, systolic congestive heart failure, chronic kidney disease, coronary artery disease with prior bypass surgery, prior pacer, nicotine dependence, for greater than 50 year history. Patient was initially directed to come to the hospital because of abnormality in renal function on outpatient labs. Also currently being treated for an acute exacerbation of congestive heart failure, diastolic in nature as well as ask exacerbation of COPD. Patient was seen and examined today, overall feeling better. She does continue to have some lower extremity edema. Blood pressure 130/60 with a heart rate in the 60s, 98% on 3 L of oxygen. White blood cell count 8.8, hemoglobin 8.0, platelet count 178. Sodium 133, potassium 4.7, BUN 99, creatinine 2.6. Objective - Vital Signs Vital signs: Vital Signs Temp 97.4 F L 03/14/20 04:10 Pulse 68 03/14/20 12:06 Resp 22 03/14/20 12:00 BP 130/61 03/14/20 12:00 Pulse Ox 98 03/14/20 12:00 Intake & Output 03/13/20 03/14/20 03/14/20 18:59 06:59 18:59 Intake Total 1256 540 220 Output Total 1900 1999 Balance -644 -1460 220 Weight 101.7 kg 99.7 kg Intake: Intake, IV Titration 200 Amount Sodium Ferric Gluconat- 100 Sucrose 125 mg In Sodium Chloride 0.9% 100 ml @ 100 mls/hr IVPB DAILY [facility] Rx#:[id number] cefTRIAXone 1 gm In 100 Sodium Chloride 0.9% 50 ml @ 100 mls/hr IVPB Q24HR [facility] Rx#:[id number] Oral 1056 540 220 Output: Urine 0 1999 Other: # Voids 1 # Bowel Movements 1 - Exam GENERAL EXAM: Patient is alert and oriented and doesn't appear to be in any acute distress HEENT: Normocephalic. Normal reaction of pupils, equal size, normal range of extraocular motion. No erythema or exudates in the throat. NECK: No masses, no nuchal rigidity. CHEST: No chest wall deformity. LUNGS: Clear with mild expiratory wheezing HEART: S1 and S2 normal with no audible mumurs or gallops. Regular rhythm, femorals equal on both sides.. ABDOMEN: No hepatosplenomegaly, normal bowel sounds, no guarding or rigidity. SKIN: No rashes CENTRAL NERVOUS SYSTEM: No focal deficits. EXTREMITIES:1- 2+ edema - Labs CBC & Chem 7: 03/14/20 06:07 03/14/20 06:07 Labs: Abnormal Lab Results - Last 24 Hours (Table) 03/13/20 03/13/20 03/14/20 Range/Units 16:27 21:02 06:07 RBC 2.89 L (3.80-5.40) m/uL Hgb 8.0 L (11.4-16.0) gm/dL Hct 25.8 L (34.0-46.0) % MCHC 30.9 L (31.0-37.0) g/dL Sodium (137-145) mmol/L Chloride (98-107) mmol/L BUN (7-17) mg/dL Creatinine (0.52-1.04) mg/dL Glucose (74-99) mg/dL POC Glucose (mg/dL) 372 H 440 H (75-99) mg/dL Calcium (8.4-10.2) mg/dL Total Protein (6.3-8.2) g/dL Albumin (3.5-5.0) g/dL 03/14/20 03/14/20 03/14/20 Range/Units 06:07 06:45 12:15 RBC (3.80-5.40) m/uL Hgb (11.4-16.0) gm/dL Hct (34.0-46.0) % MCHC (31.0-37.0) g/dL Sodium 133 L (137-145) mmol/L Chloride 94 L (98-107) mmol/L BUN 99 H (7-17) mg/dL Creatinine 2.64 H (0.52-1.04) mg/dL Glucose 167 H (74-99) mg/dL POC Glucose (mg/dL) 194 H 147 H (75-99) mg/dL Calcium 8.1 L (8.4-10.2) mg/dL Total Protein 5.1 L (6.3-8.2) g/dL Albumin 2.9 L (3.5-5.0) g/dL Assessment and Plan Plan: Assessment and plan #1 Acute on chronic renal failure #2 Acute exacerbation of chronic obstructive pulmonary disease #3 Acute exacerbation of chronic diastolic congestive heart failure #4 Acute on chronic hypoxemic respiratory failure secondary to above #5 Chronic kidney disease, stage III #6 History of coronary artery disease status post bypass grafting 19 years ago #7 History of CHF with diastolic dysfunction, echocardiogram showed low normal EF of 50-55% moderate mitral regurgitation, trace tricuspid regurg, PA systolic of less than 35 mmHg, normal inferior vena cava with normal inspiratory collapse an estimated right atrial pressure of 5 mmHg #8 Diabetes mellitus #9 Chronic smoker, carries 50 years of smoking of less than a pack a day, and more recently started vaping in an attempt to quit smoking #10 Oxygen dependent COPD, not consistently compliant with oxygen #11 Hypertension #12 Hyperlipidemia #13 Permanent pacemaker insertion in 2014 #14 Obesity, with history of lap band #15 Obstructive sleep apnea on BiPAP machine Plan We will continue the patient on current dose of IV Bumex along with Zaroxolyn. Continue to monitor the intake and output along with daily weights and daily lytes BUN and creatinine. DNP note has been reviewed, I agree with a documented findings and plan of care. Patient was seen and examined.
--- NOTE | 2020-03-14 19:11 | P.PN ---
Subjective Progress Note Date: 03/14/20 Elza Avery is an 80-year-old female with known history of chronic kidney disease who had blood tests recently and is followed by Dr. Fletcher she was called this morning and was told to go to emergency room in regard to worsening blood test and continuing to have shortness of breath, patient was evaluated in the emergency room, blood pressure was elevated at 154/69 pulse ox 90% on 4 L via nasal cannula temperature 98.4 pulse 81 respiration 22 . chest x-ray was suggestive of congestive heart failure, hemoglobin 8.2 BUN 63 creatinine 2.52 creatinine on 02/17/2020 was 2.06 hemoglobin on 02/13/2020 was 10.8, patient stated that she had diarrhea with black stools this morning. On review of systems patient is complaining of cough and shortness of breath, she stated that she follows with Dr. Crockett he recently started her on a course of Zithromax and a course of prednisone, she had diarrhea this morning otherwise she denies any complaints there is no fever or chills no headache or dizziness no chest pain no nausea or vomiting no abdominal pain no burning with urination no frequency or urgency and no hematuria On 03/10/2020 patient was seen and examined on the medical floor she is alert and oriented 3 in no apparent distress, shortness of breath better than yesterday, she is still complaining of cough otherwise she denies any complaints there is no fever or chills no headache or dizziness no chest pain, no nausea or vomiting no abdominal pain no diarrhea no burning with urination no frequency or urgency and no hematuria On 03/12/2020 patient was seen and examined on the medical floor she is alert and oriented in no apparent distress she is still complaining of shortness of breath with any activity she is complaining of significant lower extremity swelling otherwise she denies any complaints there is no fever or chills no headache or dizziness no chest pain no cough no nausea or vomiting no abdominal pain no diarrhea no burning with urination no frequency or urgency no hematuria on 03/13/2020 patient was seen and examined on the medical floor she is alert and oriented 3 in no apparent distress she is still complaining of severe bilateral lower extremity edema and complaining of shortness of breath with any activity nephrology are following and diuretics are being adjusted, so far no significant improvement, patient is also being followed by cardiology. Otherwise patient denies any complaints there is no fever or chills no headache or dizziness no chest pain no cough no nausea or vomiting no abdominal pain no diarrhea no burning with urination no frequency or urgency and no hematuria On 03/14/2020 patient was seen and examined on the medical floor she is alert and oriented in no apparent distress there is no fever or chills no headache or dizziness no chest pain she is still complaining of shortness of breath there is no cough no nausea or vomiting no abdominal pain no diarrhea no burning with urination no frequency or urgency there is 3+ edema in bilateral lower extremities Objective - Vital Signs Vital signs: Vital Signs Temp 97.4 F L 03/14/20 04:10 Pulse 72 03/14/20 08:56 Resp 20 03/14/20 08:00 BP 106/53 03/14/20 08:00 Pulse Ox 96 03/14/20 08:00 Intake & Output 03/13/20 03/14/20 03/14/20 18:59 06:59 18:59 Intake Total 1256 540 120 Output Total 1900 2000 Balance -644 -1460 120 Weight 101.7 kg 99.7 kg Intake: Intake, IV Titration 200 Amount Sodium Ferric Gluconat- 100 Sucrose 125 mg In Sodium Chloride 0.9% 100 ml @ 100 mls/hr IVPB DAILY [facility] Rx#:[id number] cefTRIAXone 1 gm In 100 Sodium Chloride 0.9% 50 ml @ 100 mls/hr IVPB Q24HR [facility] Rx#:[id number] Oral 1056 540 120 Output: Urine 1900 1999 - Exam In general patient is alert and oriented 3 in no apparent distress HEENT head normocephalic and atraumatic Neck is supple no JVD no goiter no lymphadenopathy Chest exam reveals a few scattered rhonchi no wheezing Cardiac exam reveals regular heart sounds no gallops no murmurs Abdomen is soft nontender no organomegaly with normal bowel sounds Extremity exam reveals 3+ edema no cyanosis or clubbing Neurological examination reveals no gross focal deficit - Labs CBC & Chem 7: 03/14/20 06:07 03/14/20 06:07 Labs: Abnormal Lab Results - Last 24 Hours (Table) 03/13/20 03/13/20 03/14/20 Range/Units 16:27 21:02 06:07 RBC 2.89 L (3.80-5.40) m/uL Hgb 8.0 L (11.4-16.0) gm/dL Hct 25.8 L (34.0-46.0) % MCHC 30.9 L (31.0-37.0) g/dL Sodium (137-145) mmol/L Chloride (98-107) mmol/L BUN (7-17) mg/dL Creatinine (0.52-1.04) mg/dL Glucose (74-99) mg/dL POC Glucose (mg/dL) 372 H 440 H (75-99) mg/dL Calcium (8.4-10.2) mg/dL Total Protein (6.3-8.2) g/dL Albumin (3.5-5.0) g/dL 03/14/20 03/14/20 Range/Units 06:07 06:45 RBC (3.80-5.40) m/uL Hgb (11.4-16.0) gm/dL Hct (34.0-46.0) % MCHC (31.0-37.0) g/dL Sodium 133 L (137-145) mmol/L Chloride 94 L (98-107) mmol/L BUN 99 H (7-17) mg/dL Creatinine 2.64 H (0.52-1.04) mg/dL Glucose 167 H (74-99) mg/dL POC Glucose (mg/dL) 194 H (75-99) mg/dL Calcium 8.1 L (8.4-10.2) mg/dL Total Protein 5.1 L (6.3-8.2) g/dL Albumin 2.9 L (3.5-5.0) g/dL Assessment and Plan Plan: 1. Acute on chronic renal failure 2. Acute congestive heart failure exacerbation likely diastolic due to fluid overload 3. Acute bronchitis with bronchospasm, recently started on oral antibiotics and oral steroids by Dr. Crockett as outpatient 4. Underlying history of hypertension 5. Underlying history of insulin-dependent diabetes mellitus 6. Underlying history of hyperlipidemia 7. Underlying history of coronary artery disease 8. Episode of diarrhea this morning with black stools with check stool Hemoccult and monitor CBC closely At this time will hold torsemide, start IV Lasix Consult nephrology Consult pulmonary Will follow during this admission for medical management
[2020-03-14 20:07] LABS: Glucose,Whole Blood 338 mg/dL (75-99)
[2020-03-14] MEDS: INSULIN DETEMIR (LEVEMIR) 100 UNIT/ML SYR SQ SCH (20:58)
[2020-03-14] MEDS: ATORVASTATIN 10 MG TAB PO SCH (20:58)
[2020-03-14] MEDS: TEMAZEPAM 15 MG CAP PO SCH (20:59)
[2020-03-15] MEDS: hydrALAZINE HCL 50 MG TAB PO SCH ×3 (08:06→22:20)
[2020-03-15] MEDS: amLODIPine 2.5 MG TAB PO SCH (08:06)
[2020-03-15] MEDS: predniSONE 10 MG TAB PO SCH (08:07)
[2020-03-15] MEDS: INSULIN ASPART (NovoLOG) 100 UNIT/ML VIAL SQ SCH ×3 (08:07→18:04)
[2020-03-15] MEDS: IPRATROPIUM-ALBUTEROL 3 ML NEB INHALATION SCH ×3 (08:07→20:29)
[2020-03-15] MEDS: LOSARTAN 25 MG TAB PO SCH (08:07)
[2020-03-15] MEDS: ASPIRIN 81 MG PO SCH (08:07)
[2020-03-15] MEDS: ISOSORBIDE MONONITRATE ER 30 MG TAB.ER.24H PO SCH (08:07)
[2020-03-15] MEDS: guaiFENesin 600 MG TABLET.ER PO SCH ×2 (08:07→22:20)
[2020-03-15] MEDS: CLOPIDOGREL 75 MG TAB PO SCH (08:07)
[2020-03-15] MEDS: CARVEDILOL 12.5 MG TAB PO SCH ×2 (08:07→18:04)
[2020-03-15] MEDS: METOLAZONE 5 MG TAB PO SCH (08:08)
[2020-03-15 12:05] LABS: Glucose,Whole Blood 130 mg/dL (75-99)
--- NOTE | 2020-03-15 15:09 | P.PN ---
Subjective Progress Note Date: 03/15/20 This is a pleasant 80-year-old female with history of morbid obesity, diabetes, hypertension, hyperlipidemia, obstructive sleep apnea, COPD, hypothyroidism, systolic congestive heart failure, chronic kidney disease, coronary artery disease with prior bypass surgery, prior pacer, nicotine dependence, for greater than 50 year history. Patient was initially directed to come to the hospital because of abnormality in renal function on outpatient labs. Also currently being treated for an acute exacerbation of congestive heart failure, diastolic in nature as well as ask exacerbation of COPD. Patient was seen and examined today, overall feeling better. She does continue to have some lower extremity edema. Blood pressure 130/60 with a heart rate in the 60s, 98% on 3 L of oxygen. White blood cell count 8.8, hemoglobin 8.0, platelet count 178. Sodium 133, potassium 4.7, BUN 99, creatinine 2.6. 03/15/2020 was seen and examined this morning, diuresed well through the night last night. Lungs are clear today. Blood pressure 122/60 with a heart rate in the 60s, 98% on 3 L of oxygen. Objective - Vital Signs Vital signs: Vital Signs Temp 98 F 03/15/20 12:00 Pulse 64 03/15/20 13:13 Resp 18 03/15/20 12:00 BP 123/59 03/15/20 12:00 Pulse Ox 98 03/15/20 12:00 Intake & Output 03/14/20 03/15/20 03/15/20 18:59 06:59 18:59 Intake Total 700 444 Output Total 1999 1000 Balance -1300 -1000 444 Weight 100.1 kg Intake: Oral 700 444 Output: Urine 1999 1000 Other: # Voids 1 # Bowel Movements 1 - Exam GENERAL EXAM: Patient is alert and oriented and doesn't appear to be in any acute distress HEENT: Normocephalic. Normal reaction of pupils, equal size, normal range of extraocular motion. No erythema or exudates in the throat. NECK: No masses, no nuchal rigidity. CHEST: No chest wall deformity. LUNGS: Clear to auscultation HEART: S1 and S2 normal with no audible mumurs or gallops. Regular rhythm, femorals equal on both sides.. ABDOMEN: No hepatosplenomegaly, normal bowel sounds, no guarding or rigidity. SKIN: No rashes CENTRAL NERVOUS SYSTEM: No focal deficits. EXTREMITIES:1-+ edema - Labs CBC & Chem 7: 03/14/20 06:07 03/14/20 06:07 Labs: Abnormal Lab Results - Last 24 Hours (Table) 03/14/20 03/15/20 Range/Units 20:05 12:04 POC Glucose (mg/dL) 338 H 130 H (75-99) mg/dL Assessment and Plan Plan: Assessment and plan #1 Acute on chronic renal failure #2 Acute exacerbation of chronic obstructive pulmonary disease #3 Acute exacerbation of chronic diastolic congestive heart failure #4 Acute on chronic hypoxemic respiratory failure secondary to above #5 Chronic kidney disease, stage III #6 History of coronary artery disease status post bypass grafting 19 years ago #7 History of CHF with diastolic dysfunction, echocardiogram showed low normal EF of 50-55% moderate mitral regurgitation, trace tricuspid regurg, PA systolic of less than 35 mmHg, normal inferior vena cava with normal inspiratory collapse an estimated right atrial pressure of 5 mmHg #8 Diabetes mellitus #9 Chronic smoker, carries 50 years of smoking of less than a pack a day, and more recently started vaping in an attempt to quit smoking #10 Oxygen dependent COPD, not consistently compliant with oxygen #11 Hypertension #12 Hyperlipidemia #13 Permanent pacemaker insertion in 2015 #14 Obesity, with history of lap band #15 Obstructive sleep apnea on BiPAP machine Plan From cardiology's perspective, we'll discontinue the IV Bumex from this evening and change the patient over to oral diuretics. Repeat a chest x-ray tomorrow. DNP note has been reviewed, I agree with a documented findings and plan of care. Patient was seen and examined.
--- NOTE | 2020-03-15 15:18 | PN ---
PROGRESS NOTE DATE OF SERVICE: 03/15/2020 This is a very pleasant 80-year-old female patient we are seeing again today in followup on the selective care unit. She is awake and alert, in no acute distress. Her main complaint is that of being tired today. She is somewhat pale. She denies any worsening shortness of breath, cough or congestion. Lungs sound improved. She does have continued swelling of the lower extremities. PHYSICAL EXAMINATION: GENERAL APPEARANCE: She is alert and oriented. She is a pleasant 80-year-old female patient in no acute distress. HEAD: Normocephalic. Sclerae anicteric. NECK: Supple. Trachea midline. LUNGS: Her lungs have faint bilateral crackles in the posterior bases, diminished. HEART: Regular S1, S2. ABDOMEN: Obese, soft, nontender. Bowel sounds are present. LOWER EXTREMITIES: There is 1 to 2+ lower extremity peripheral edema. No clubbing. No cyanosis. Peripheral pulses are intact. NEUROLOGIC: Alert and oriented. No focal deficits. INVESTIGATIONS: Labs are reviewed. Medications are reviewed. PLAN: The patient was seen and evaluated by Dr. Ch. She is improved from the pulmonary standpoint. We will order Dopplers of the lower extremities to rule out DVT. We will continue to titrate down the FiO2 as tolerated. Increase activity as tolerated. Will continue to follow. I, the cosigning physician, performed a history and physical examination of the patient. Lung sounds with crackles in the bilateral posterior bases. Maintain oxygen saturation in the 90's on 2 L nasal cannula. I discussed the assessment and plan of care with my nurse practitioner, Kimberley Dowell. I attest to the above note as dictated by her. MMODL / IJN: [id number] / MTDD
[2020-03-15] MEDS: BUMETANIDE 0.25 MG/ML 10 ML VIAL IV SCH (15:53)
--- NOTE | 2020-03-15 16:32 | PN ---
PROGRESS NOTE Patient is seen for followup for chronic kidney disease and acute kidney injury mainly cardiorenal associated with volume overload. Patient is currently being diuresed. She is maintained on IV Bumex along with Zaroxolyn. She has put out about 3 L of urine output over 24 hours. Overall, patient states she is feeling slightly better. Her Cozaar dose was decreased 2 days ago. No labs available from today. No complaints of chest pain or shortness of breath. However, patient continues to have dyspnea on exertion. PHYSICAL EXAMINATION: On examination, blood pressure is 135/63, heart rate 62 per minute. She is afebrile. Examination of the heart S1, S2. Examination of the lungs, bilateral breath sounds are heard. Abdomen is soft, nontender. Examination of lower extremities shows edema 2+ bilaterally. LUNG PULLER exam is grossly intact. LABS: Not available from today, serum creatinine 2.64 from yesterday. ASSESSMENT: 1. Acute kidney injury, cardiorenal, currently being diuresed. Repeat chest x-ray has been ordered. I will also repeat her labs today. Continue with the IV Bumex and Zaroxolyn for now. No indication to start renal replacement therapy yet. 2. Hypertension. Blood pressure was high earlier in the morning, but currently improved continue with current medication including Cozaar which is now decreased to 25 mg daily. 3. Cardiomyopathy, ejection fraction about 50%. 4. Acute on top of chronic heart failure mainly diastolic. 5. Anemia of chronic disease as well as iron deficiency status post IV iron maintained on Aranesp. PLAN: Continue with the IV Bumex and Zaroxolyn. Check labs today and repeat chest x-ray today and again in a.m. No indication to start dialysis yet. MMODL / IJN: [id number] /
[2020-03-15 17:06] LABS: Glucose,Whole Blood 333 mg/dL (75-99)
--- NOTE | 2020-03-15 17:22 | P.PN ---
Subjective Progress Note Date: 03/15/20 Elza Avery is an 80-year-old female with known history of chronic kidney disease who had blood tests recently and is followed by Dr. Fletcher she was called this morning and was told to go to emergency room in regard to worsening blood test and continuing to have shortness of breath, patient was evaluated in the emergency room, blood pressure was elevated at 154/69 pulse ox 90% on 4 L via nasal cannula temperature 98.4 pulse 81 respiration 22 . chest x-ray was suggestive of congestive heart failure, hemoglobin 8.2 BUN 63 creatinine 2.52 creatinine on 02/17/2020 was 2.06 hemoglobin on 02/13/2020 was 10.8, patient stated that she had diarrhea with black stools this morning. On review of systems patient is complaining of cough and shortness of breath, she stated that she follows with Dr. Crockett he recently started her on a course of Zithromax and a course of prednisone, she had diarrhea this morning otherwise she denies any complaints there is no fever or chills no headache or dizziness no chest pain no nausea or vomiting no abdominal pain no burning with urination no frequency or urgency and no hematuria On 03/10/2020 patient was seen and examined on the medical floor she is alert and oriented 3 in no apparent distress, shortness of breath better than yesterday, she is still complaining of cough otherwise she denies any complaints there is no fever or chills no headache or dizziness no chest pain, no nausea or vomiting no abdominal pain no diarrhea no burning with urination no frequency or urgency and no hematuria On 03/12/2020 patient was seen and examined on the medical floor she is alert and oriented in no apparent distress she is still complaining of shortness of breath with any activity she is complaining of significant lower extremity swelling otherwise she denies any complaints there is no fever or chills no headache or dizziness no chest pain no cough no nausea or vomiting no abdominal pain no diarrhea no burning with urination no frequency or urgency no hematuria on 03/13/2020 patient was seen and examined on the medical floor she is alert and oriented 3 in no apparent distress she is still complaining of severe bilateral lower extremity edema and complaining of shortness of breath with any activity nephrology are following and diuretics are being adjusted, so far no significant improvement, patient is also being followed by cardiology. Otherwise patient denies any complaints there is no fever or chills no headache or dizziness no chest pain no cough no nausea or vomiting no abdominal pain no diarrhea no burning with urination no frequency or urgency and no hematuria On 03/14/2020 patient was seen and examined on the medical floor she is alert and oriented in no apparent distress there is no fever or chills no headache or dizziness no chest pain she is still complaining of shortness of breath there is no cough no nausea or vomiting no abdominal pain no diarrhea no burning with urination no frequency or urgency there is 3+ edema in bilateral lower extremities. 03/15/2020 patient was seen and examined on the telemetry floor she is alert and oriented 3 she reports some improvement in her lower extremity swelling and her shortness of breath she reports some improvement in her urine output otherwise she denies any complaints there is no fever or chills no headache or dizziness no chest pain no cough no nausea or vomiting no abdominal pain no diarrhea no blood in the stools no burning with urination no frequency or urgency and no hematuria Objective - Vital Signs Vital signs: Vital Signs Temp 98 F 03/15/20 08:00 Pulse 68 03/15/20 08:18 Resp 18 03/15/20 08:00 BP 135/63 03/15/20 08:00 Pulse Ox 98 03/15/20 08:00 Intake & Output 03/14/20 03/15/20 03/15/20 18:59 06:59 18:59 Intake Total 700 444 Output Total 2000 1000 Balance -1300 -1000 444 Weight 100.1 kg Intake: Oral 700 444 Output: Urine 1999 1000 Other: # Voids 1 # Bowel Movements 1 - Exam In general patient is alert and oriented 3 in no apparent distress HEENT head normocephalic and atraumatic Neck is supple no JVD no goiter no lymphadenopathy Chest exam reveals a few scattered rhonchi no wheezing Cardiac exam reveals regular heart sounds no gallops no murmurs Abdomen is soft nontender no organomegaly with normal bowel sounds Extremity exam reveals 3+ edema no cyanosis or clubbing Neurological examination reveals no gross focal deficit - Labs CBC & Chem 7: 03/14/20 06:07 03/14/20 06:07 Labs: Abnormal Lab Results - Last 24 Hours (Table) 03/14/20 03/15/20 Range/Units 20:05 12:04 POC Glucose (mg/dL) 338 H 130 H (75-99) mg/dL Assessment and Plan Plan: 1. Acute on chronic renal failure 2. Acute congestive heart failure exacerbation likely diastolic due to fluid overload 3. Acute bronchitis with bronchospasm, recently started on oral antibiotics and oral steroids by Dr. Crockett as outpatient 4. Underlying history of hypertension 5. Underlying history of insulin-dependent diabetes mellitus 6. Underlying history of hyperlipidemia 7. Underlying history of coronary artery disease 8. Episode of diarrhea this morning with black stools with check stool Hemoccult and monitor CBC closely At this time will hold torsemide, start IV Lasix Consult nephrology Consult pulmonary Will follow during this admission for medical management
--- NOTE | 2020-03-15 17:39 | XR ---
EXAMINATION TYPE: XR chest 1V DATE OF EXAM: 03/15/2020 COMPARISON: 03/13/2020 HISTORY: Short of breath TECHNIQUE: FINDINGS: Heart is enlarged. There is mild pulmonary vascular congestion. There is blunting of the co stophrenic angles. There is left axillary pacemaker. There are chest leads. There are sternal wires. IMPRESSION: Congestive heart failure with pleural effusions is improved compared to recent exam.
--- NOTE | 2020-03-15 18:07 | US ---
EXAMINATION TYPE: US venous doppler duplex LE DATE OF EXAM: 03/15/2020 5:44 PM COMPARISON: US 2015 CLINICAL HISTORY: rule out DVT, swelling. Bilateral leg swelling SIDE PERFORMED: Bilateral TECHNIQUE: The lower extremity deep venous system is examined utilizing real time linear array sonog steve with graded compression, doppler sonography and color-flow sonography. VESSELS IMAGED: External Iliac Vein (EIV) Common Femoral Vein Deep Femoral Vein Greater Saphenous Vein * Femoral Vein Popliteal Vein Small Saphenous Vein * Proximal Calf Veins (* superficial vessels) Difficult and limited study due to leg swelling and shadowing from arterial calcifications Right Leg: Appears negative for DVT Left Leg: Appears negative for DVT IMPRESSION: No sign of deep vein thrombosis in both legs.
[2020-03-15 20:08] LABS: Glucose,Whole Blood 419 mg/dL (75-99)
[2020-03-15] MEDS: TEMAZEPAM 15 MG CAP PO SCH (22:20)
[2020-03-15] MEDS: ATORVASTATIN 10 MG TAB PO SCH (22:20)
[2020-03-15] MEDS: INSULIN DETEMIR (LEVEMIR) 100 UNIT/ML SYR SQ SCH (22:21)
[2020-03-16 06:23] LABS: Glucose,Whole Blood 138 mg/dL (75-99)
[2020-03-16 06:35] LABS: Albumin 2.6 g/dL (3.5-5.0); Calcium 8.2 mg/dL (8.4-10.2); Potassium 4.6 mmol/L (3.5-5.1); Total Bilirubin 0.3 mg/dL (0.2-1.3); Total Protein 4.7 g/dL (6.3-8.2)
[2020-03-16 06:45] LABS: HCT 23.7 % (34.0-46.0); HGB 7.7 gm/dL (11.4-16.0); MCH 28.9 pg (25.0-35.0); MCHC 32.5 g/dL (31.0-37.0); MCV 88.9 fL (80.0-100.0); Mean Platelet Volume 8.5; Platelet Count 195 k/uL (150-450); RBC 2.67 m/uL (3.80-5.40); WBC 7.9 k/uL (3.8-10.6)
[2020-03-16] MEDS: CARVEDILOL 12.5 MG TAB PO SCH ×2 (06:53→17:57)
[2020-03-16] MEDS: INSULIN ASPART (NovoLOG) 100 UNIT/ML VIAL SQ SCH ×3 (06:53→17:56)
[2020-03-16 07:06] LABS: Anisocytosis (M) Present; Eosinophils # (M) 0.08 k/uL (0-0.7); Hypochromasia (M) Present; Lymphocytes # (M) 2.61 k/uL (1.0-4.8); Neutrophils # (M) 4.82 k/uL (1.3-7.7); Neutrophils % (M) 61 %; Nucleated Red Blood Cells 0 /100 WBC (0-0); Poikilocytosis (M) Present; Total Cells Counted 100
--- NOTE | 2020-03-16 07:54 | XR ---
EXAMINATION TYPE: XR chest 2V DATE OF EXAM: 03/16/2020 COMPARISON: 03/15/2020 HISTORY: Shortness of breath TECHNIQUE: Frontal and lateral views of the chest are obtained. FINDINGS: Scattered senescent parenchymal changes noted. Hyperinflation compatible with COPD. No evidence for infiltrate. Small bilateral pleural effusion or compressive atelectasis. Mild pulmona ry venous engorgement without overt failure. Heart size is stable. Mediastinal structures are stable and grossly unremarkable. No evidence for hilar prominence. Degenerative changes dorsal spine. IMPRESSION: 1. Small bilateral pleural effusion or compressive atelectasis. Mild pulmonary venous engorgement wit hout overt failure.
[2020-03-16] MEDS: IPRATROPIUM-ALBUTEROL 3 ML NEB INHALATION SCH ×3 (07:59→19:02)
[2020-03-16] MEDS: hydrALAZINE HCL 50 MG TAB PO SCH ×3 (08:58→20:57)
[2020-03-16] MEDS: guaiFENesin 600 MG TABLET.ER PO SCH ×2 (08:58→20:57)
[2020-03-16] MEDS: ISOSORBIDE MONONITRATE ER 30 MG TAB.ER.24H PO SCH (08:58)
[2020-03-16] MEDS: CLOPIDOGREL 75 MG TAB PO SCH (08:58)
[2020-03-16] MEDS: LOSARTAN 25 MG TAB PO SCH (08:58)
[2020-03-16] MEDS: METOLAZONE 5 MG TAB PO SCH (08:59)
[2020-03-16] MEDS: predniSONE 10 MG TAB PO SCH (08:59)
[2020-03-16] MEDS: ASPIRIN 81 MG PO SCH (08:59)
[2020-03-16] MEDS: amLODIPine 2.5 MG TAB PO SCH (08:59)
--- NOTE | 2020-03-16 11:08 | P.PN ---
Subjective Progress Note Date: 03/16/20 Principal diagnosis: Acute on chronic renal failure, acute exacerbation of chronic obstructive pulmonary disease/diastolic congestive heart failure This is a very pleasant 80-year-old female patient who follows with Dr. Ward as her primary care provider. She has a history of morbid obesity, diabetes mellitus, hypertension, obstructive sleep apnea, hypothyroidism, systolic c ongestive heart failure, chronic kidney disease stage III, coronary artery disease with previous bypass surgery, permanent pacemaker implantation, chronic and ongoing tobacco dependence of greater than 50 years. She has been seen by Dr. Ch in our office on 03/07/2020 and treated for an acute exacerbation of COPD with Zithromax and steroids. She presented here to the hospital again yesterday after being instructed to go to the emergency room based on abnormal lab findings by nephrology. Her creatinine was up to 2.52. She is seen today in consultation on the selective care unit. She is currently awake and alert in no acute distress. Resting fairly comfortably in bed. She is maintaining O2 saturations in the low 90s on 4 L/m per nasal cannula. Chest x-ray revealed evidence of cardiomegaly and pulmonary venous congestion. White count 8.4. Hemoglobin 8.4. Sodium 136. Potassium 5.0. Creatinine 2.49. ProBNP 37,300. She's been initiated on DuoNeb inhalations, IV diuretics, Mucinex and oral prednisone taper. The patient is seen today 03/11/2020 in follow-up on the selective care unit. She is currently sitting up in bed. Awake and alert in no acute distress. Maintaining O2 saturations in the upper 90s on 2 L/m per nasal cannula. White count 7.1. Hemoglobin 8.1. Sodium 1:30. Potassium 4.6. Creatinine 2.36. She remains on bronchodilators, antibiotics, diuretics. Patient is seen today 03/12/2020 in follow-up on the selective care unit. Currently sitting up in a chair at the bedside. Awake and alert in no acute distress. Still with some dyspnea on minimal exertion. Maintain good O2 saturations in the mid 90s on room air. White count 7.4. Hemoglobin 7.4. Sodium 135. Potassium 4.9. Creatinine 2.48. Currently on bronchodilators, ceftriaxone, prednisone. The patient is seen today 03/16/2020 in follow-up on the selective care unit. She is currently up in a chair at the bedside. Awake and alert in no acute distress. She is maintaining good O2 saturations in the high 90s on 3 L/m per nasal cannula. She's afebrile. Hemodynamically stable. White count 7.9. Hemoglobin 7.7. Sodium 131. Potassium 4.6. BUN 114. Creatinine 2.51. Currently in a negative balance. Weight 98.5 kg. Objective - Vital Signs Vital signs: Vital Signs Temp 97.4 F L 03/16/20 08:00 Pulse 68 03/16/20 08:19 Resp 19 03/16/20 08:00 BP 105/46 03/16/20 08:00 Pulse Ox 99 03/16/20 08:00 Intake & Output 03/15/20 03/16/20 03/16/20 18:59 06:59 18:59 Intake Total 1790 240 Output Total 2200 1000 1000 Balance -410 -1000 -760 Weight 98.5 kg Intake: Oral 1790 240 Output: Urine 2200 1000 1000 Other: Voiding Method Bedside Commode # Voids 2 3 - Exam GENERAL EXAM: Alert, pleasant morbidly obese 80-year-old female patient, on 3 L nasal cannula, comfortable in no apparent distress. HEAD: Normocephalic. EYES: Normal reaction of pupils, equal size. NOSE: Clear with pink turbinates. THROAT: No erythema or exudates. NECK: No masses, no JVD. CHEST: No chest wall deformity. LUNGS: Equal air entry with crackles in the posterior bases, diminished. CVS: S1 and S2 normal with no audible murmur, regular rhythm. ABDOMEN: No hepatosplenomegaly, normal bowel sounds, no guarding or rigidity. SPINE: No scoliosis or deformity SKIN: No rashes CENTRAL NERVOUS SYSTEM: No focal deficits, tone is normal in all 4 extremities. EXTREMITIES: There is 1+ peripheral edema. No clubbing, no cyanosis. Periphera l pulses are intact. - Labs CBC & Chem 7: 03/16/20 06:09 03/16/20 06:09 Labs: Abnormal Lab Results - Last 24 Hours (Table) 03/10/20 03/15/20 03/15/20 Range/Units 07:42 12:04 17:05 RBC 2.86 L (3.80-5.40) m/uL Hgb 8.4 L (11.4-16.0) gm/dL Hct 26.7 L (34.0-46.0) % Monocytes # 1.2 H (0-1.0) k/uL Sodium (137-145) mmol/L Chloride (98-107) mmol/L BUN (7-17) mg/dL Creatinine (0.52-1.04) mg/dL Glucose (74-99) mg/dL POC Glucose (mg/dL) 130 H 333 H (75-99) mg/dL Calcium (8.4-10.2) mg/dL Total Protein (6.3-8.2) g/dL Albumin (3.5-5.0) g/dL 03/15/20 03/16/20 03/16/20 Range/Units 20:07 06:09 06:09 RBC 2.67 L (3.80-5.40) m/uL Hgb 7.7 L (11.4-16.0) gm/dL Hct 23.7 L (34.0-46.0) % Monocytes # (0-1.0) k/uL Sodium 131 L (137-145) mmol/L Chloride 95 L (98-107) mmol/L BUN 114 H* (7-17) mg/dL Creatinine 2.51 H (0.52-1.04) mg/dL Glucose 123 H (74-99) mg/dL POC Glucose (mg/dL) 419 H (75-99) mg/dL Calcium 8.2 L (8.4-10.2) mg/dL Total Protein 4.7 L (6.3-8.2) g/dL Albumin 2.6 L (3.5-5.0) g/dL 03/16/20 Range/Units 06:22 RBC (3.80-5.40) m/uL Hgb (11.4-16.0) gm/dL Hct (34.0-46.0) % Monocytes # (0-1.0) k/uL Sodium (137-145) mmol/L Chloride (98-107) mmol/L BUN (7-17) mg/dL Creatinine (0.52-1.04) mg/dL Glucose (74-99) mg/dL POC Glucose (mg/dL) 138 H (75-99) mg/dL Calcium (8.4-10.2) mg/dL Total Protein (6.3-8.2) g/dL Albumin (3.5-5.0) g/dL Assessment and Plan Assessment: 1 Acute on chronic renal failure 2 Acute exacerbation of chronic obstructive pulmonary disease 3 Acute exacerbation of chronic diastolic congestive heart failure 4 Acute on chronic hypoxemic respiratory failure secondary to above 5 Chronic kidney disease, stage III 6 History of coronary artery disease status post bypass grafting 19 years ago 7 History of CHF with diastolic dysfunction, echocardiogram showed low normal EF of 50-55% moderate mitral regurgitation, trace tricuspid regurg, PA systolic of less than 35 mmHg, normal inferior vena cava with normal inspiratory collapse an estimated right atrial pressure of 5 mmHg 8 Diabetes mellitus 9 Chronic smoker, carries 50 years of smoking of less than a pack a day, and more recently started vaping in an attempt to quit smoking 10 Oxygen dependent COPD, not consistently compliant with oxygen 11 Hypertension 12 Hyperlipidemia 13 Permanent pacemaker insertion in 2014 14 Obesity, with history of lap band 15 Obstructive sleep apnea on BiPAP machine Plan The patient was seen and evaluated by Dr. Ch Currently stable from the pulmonary standpoint Continue with bronchodilators and prednisone Continue diuretics We will continue to follow and make further recommendations based on her clinical status I, the cosigning physician, performed a history & physical examination of the patient. Lungs sounds with crackles in posterior bases, end expiratory wheeze, diminished. Maintaining good O2 saturations in the 90s on 3 L/m per nasal canula.. I discussed the assessment and plan of care with my nurse practitioner, Kimberley Dowell. I attest to the above note as dictated by her.
[2020-03-16 11:59] LABS: Glucose,Whole Blood 152 mg/dL (75-99)
[2020-03-16 12:36] LABS: Hepatitis B Surface AB- Quant 3.5 mIU/mL; Hepatitis B Surface Antibody Non-Reactive (Non-Reactive); Hepatitis B Surface Antigen Non-Reactive (Non-Reactive)
[2020-03-16] MEDS: BUMETANIDE 0.25 MG/ML 10 ML VIAL IV SCH ×2 (12:40→23:05)
--- NOTE | 2020-03-16 13:45 | PN ---
PROGRESS NOTE Patient is seen for followup for acute kidney injury on top of chronic kidney disease and CHF exacerbation. Currently patient is being diuresed. She was maintained on IV Bumex. Somehow this was changed to p.o. today. Her BUN is elevated disproportionately. This is mostly from steroids. The serum creatinine is actually slightly better with creatinine down to 2.5 from 2.6 yesterday. A 24 hour urine output was 3.2 L. Patient's weight is down close to 4 kg since admission. Patient's chest x- ray is also improved. Overall, she states she is feeling better. However, still complaining of some dyspnea on exertion, although much better than on admission. PHYSICAL EXAMINATION: On examination today, blood pressure was 105/46, heart rate 60 per minute, she is afebrile. Patient is currently in the shower. She continues to have edema in the lower extremities. COMBUSTION ENGINEER exam is grossly intact. LABS: Show sodium 131, potassium 4.6. BUN 114, serum creatinine 2.5, hemoglobin 7.7 g/dL. ASSESSMENT: 1. Acute kidney injury, cardiorenal, currently slightly improved. The BUN is disproportionately elevated secondary to steroids. I will switch her back to the IV Bumex. 2. Chronic kidney disease, NKF stage IV, secondary to nephrosclerosis and cardiorenal syndrome. 3. Anemia with no active bleeding noted, maintained on Aranesp and status post IV iron. 4. Cardiomyopathy, ejection fraction about 50%. 5. Hypertension with decreased dose of Cozaar. PLAN: Switch back to IV Bumex. Consider weaning steroids further and no need for renal replacement therapy this admission. Patient will need close followup as outpatient for adjustment of her diuretics. Her chest x-ray is improved. Her weight is down and overall she is feeling better than on admission. However, if she her volume status worsens, post discharge we will initiate renal replacement therapy as outpatient. Can also consider workup for anemia including possible underlying GI bleed as hemoglobin has dropped further from yesterday. MMODL / IJN: [id number] /
--- NOTE | 2020-03-16 14:47 | P.PN ---
Subjective Progress Note Date: 03/16/20 This is a pleasant 80-year-old female with history of morbid obesity, diabetes, hypertension, hyperlipidemia, obstructive sleep apnea, COPD, hypothyroidism, systolic congestive heart failure, chronic kidney disease, coronary artery disease with prior bypass surgery, prior pacer, nicotine dependence, for greater than 50 year history. Patient was initially directed to come to the hospital because of abnormality in renal function on outpatient labs. Also currently being treated for an acute exacerbation of congestive heart failure, diastolic in nature as well as ask exacerbation of COPD. Patient was seen and examined today, overall feeling better. She does continue to have some lower extremity edema. Blood pressure 130/60 with a heart rate in the 60s, 98% on 3 L of oxygen. White blood cell count 8.8, hemoglobin 8.0, platelet count 178. Sodium 133, potassium 4.7, BUN 99, creatinine 2.6. 03/15/2020 Patient was seen and examined this morning, diuresed well through the night last night. Lungs are clear today. Blood pressure 122/60 with a heart rate in the 60s, 98% on 3 L of oxygen. 03/16/2020 Patient was seen and examined this morning, appears to be quite comfortable at the time of our examination. Sodium 131, potassium 4.6, BUN 114, creatinine 2.5. White blood cell count 7.9, hemoglobin 7.7, platelet count 195. Objective - Vital Signs Vital signs: Vital Signs Temp 97.4 F L 03/16/20 08:00 Pulse 64 03/16/20 13:38 Resp 19 03/16/20 08:00 BP 105/46 03/16/20 08:00 Pulse Ox 99 03/16/20 08:00 Intake & Output 03/15/20 03/16/20 03/16/20 18:59 06:59 18:59 Intake Total 1790 600 Output Total 2200 1000 1000 Balance -410 -1000 -400 Weight 98.5 kg Intake: Oral 1790 600 Output: Urine 2200 1000 1000 Other: Voiding Method Bedside Commode # Voids 2 3 - Exam GENERAL EXAM: Patient is alert and oriented and doesn't appear to be in any acute distress HEENT: Normocephalic. Normal reaction of pupils, equal size, normal range of extraocular motion. No erythema or exudates in the throat. NECK: No masses, no nuchal rigidity. CHEST: No chest wall deformity. LUNGS: Clear to auscultation HEART: S1 and S2 normal with no audible mumurs or gallops. Regular rhythm, femorals equal on both sides.. ABDOMEN: No hepatosplenomegaly, normal bowel sounds, no guarding or rigidity. SKIN: No rashes CENTRAL NERVOUS SYSTEM: No focal deficits. EXTREMITIES:1-+ edema - Labs CBC & Chem 7: 03/16/20 06:09 03/16/20 06:09 Labs: Abnormal Lab Results - Last 24 Hours (Table) 03/10/20 03/15/20 03/15/20 Range/Units 07:42 17:05 20:07 RBC 2.86 L (3.80-5.40) m/uL Hgb 8.4 L (11.4-16.0) gm/dL Hct 26.7 L (34.0-46.0) % Monocytes # 1.2 H (0-1.0) k/uL Sodium (137-145) mmol/L Chloride (98-107) mmol/L BUN (7-17) mg/dL Creatinine (0.52-1.04) mg/dL Glucose (74-99) mg/dL POC Glucose (mg/dL) 333 H 419 H (75-99) mg/dL Calcium (8.4-10.2) mg/dL Total Protein (6.3-8.2) g/dL Albumin (3.5-5.0) g/dL 03/16/20 03/16/20 03/16/20 Range/Units 06:09 06:09 06:22 RBC 2.67 L (3.80-5.40) m/uL Hgb 7.7 L (11.4-16.0) gm/dL Hct 23.7 L (34.0-46.0) % Monocytes # (0-1.0) k/uL Sodium 131 L (137-145) mmol/L Chloride 95 L (98-107) mmol/L BUN 114 H* (7-17) mg/dL Creatinine 2.51 H (0.52-1.04) mg/dL Glucose 123 H (74-99) mg/dL POC Glucose (mg/dL) 138 H (75-99) mg/dL Calcium 8.2 L (8.4-10.2) mg/dL Total Protein 4.7 L (6.3-8.2) g/dL Albumin 2.6 L (3.5-5.0) g/dL 03/16/20 Range/Units 11:54 RBC (3.80-5.40) m/uL Hgb (11.4-16.0) gm/dL Hct (34.0-46.0) % Monocytes # (0-1.0) k/uL Sodium (137-145) mmol/L Chloride (98-107) mmol/L BUN (7-17) mg/dL Creatinine (0.52-1.04) mg/dL Glucose (74-99) mg/dL POC Glucose (mg/dL) 152 H (75-99) mg/dL Calcium (8.4-10.2) mg/dL Total Protein (6.3-8.2) g/dL Albumin (3.5-5.0) g/dL Assessment and Plan Plan: Assessment and plan #1 Acute on chronic renal failure #2 Acute exacerbation of chronic obstructive pulmonary disease #3 Acute exacerbation of chronic diastolic congestive heart failure #4 Acute on chronic hypoxemic respiratory failure secondary to above #5 Chronic kidney disease, stage III #6 History of coronary artery disease status post bypass grafting 19 years ago #7 History of CHF with diastolic dysfunction, echocardiogram showed low normal EF of 50-55% moderate mitral regurgitation, trace tricuspid regurg, PA systolic of less than 35 mmHg, normal inferior vena cava with normal inspiratory collapse an estimated right atrial pressure of 5 mmHg #8 Diabetes mellitus #9 Chronic smoker, carries 50 years of smoking of less than a pack a day, and more recently started vaping in an attempt to quit smoking #10 Oxygen dependent COPD, not consistently compliant with oxygen #11 Hypertension #12 Hyperlipidemia #13 Permanent pacemaker insertion in 2015 #14 Obesity, with history of lap band #15 Obstructive sleep apnea on BiPAP machine Plan Repeat chest x-ray showed small bilateral pleural effusion with mild pulmonary venous engorgement without any evidence of failure. IV Bumex was discontinued yesterday and patient was changed over to oral diuretics. From our perspective we will continue the patient on current medications. DNP note has been reviewed, I agree with a documented findings and plan of care. Patient was seen and examined.
[2020-03-16 16:38] LABS: Glucose,Whole Blood 417 mg/dL (75-99)
--- NOTE | 2020-03-16 18:50 | P.PN ---
Subjective Progress Note Date: 03/16/20 Elza Avery is an 80-year-old female with known history of chronic kidney disease who had blood tests recently and is followed by Dr. Fletcher she was called this morning and was told to go to emergency room in regard to worsening blood test and continuing to have shortness of breath, patient was evaluated in the emergency room, blood pressure was elevated at 154/69 pulse ox 90% on 4 L via nasal cannula temperature 98.4 pulse 81 respiration 22 . chest x-ray was suggestive of congestive heart failure, hemoglobin 8.2 BUN 63 creatinine 2.52 creatinine on 02/17/2020 was 2.06 hemoglobin on 02/13/2020 was 10.8, patient stated that she had diarrhea with black stools this morning. On review of systems patient is complaining of cough and shortness of breath, she stated that she follows with Dr. Crockett he recently started her on a course of Zithromax and a course of prednisone, she had diarrhea this morning otherwise she denies any complaints there is no fever or chills no headache or dizziness no chest pain no nausea or vomiting no abdominal pain no burning with urination no frequency or urgency and no hematuria On 03/10/2020 patient was seen and examined on the medical floor she is alert and oriented 3 in no apparent distress, shortness of breath better than yesterday, she is still complaining of cough otherwise she denies any complaints there is no fever or chills no headache or dizziness no chest pain, no nausea or vomiting no abdominal pain no diarrhea no burning with urination no frequency or urgency and no hematuria On 03/12/2020 patient was seen and examined on the medical floor she is alert and oriented in no apparent distress she is still complaining of shortness of breath with any activity she is complaining of significant lower extremity swelling otherwise she denies any complaints there is no fever or chills no headache or dizziness no chest pain no cough no nausea or vomiting no abdominal pain no diarrhea no burning with urination no frequency or urgency no hematuria on 03/13/2020 patient was seen and examined on the medical floor she is alert and oriented 3 in no apparent distress she is still complaining of severe bilateral lower extremity edema and complaining of shortness of breath with any activity nephrology are following and diuretics are being adjusted, so far no significant improvement, patient is also being followed by cardiology. Otherwise patient denies any complaints there is no fever or chills no headache or dizziness no chest pain no cough no nausea or vomiting no abdominal pain no diarrhea no burning with urination no frequency or urgency and no hematuria On 03/14/2020 patient was seen and examined on the medical floor she is alert and oriented in no apparent distress there is no fever or chills no headache or dizziness no chest pain she is still complaining of shortness of breath there is no cough no nausea or vomiting no abdominal pain no diarrhea no burning with urination no frequency or urgency there is 3+ edema in bilateral lower extremities. 03/15/2020 patient was seen and examined on the telemetry floor she is alert and oriented 3 she reports some improvement in her lower extremity swelling and her shortness of breath she reports some improvement in her urine output otherwise she denies any complaints there is no fever or chills no headache or dizziness no chest pain no cough no nausea or vomiting no abdominal pain no diarrhea no blood in the stools no burning with urination no frequency or urgency and no hematuria On 03/16/2020 patient was seen and examined on the medical floor she is alert and oriented 3 in no apparent distress she reports some improvement in her shortness of breath and her lower extremity edema, otherwise she denies any complaints there is no fever or chills no headache or dizziness no chest pain no shortness of breath no cough no nausea or vomiting no abdominal pain no diarrhea no burning with urination no frequency or urgency no hematuria Objective - Vital Signs Vital signs: Vital Signs Temp 97.4 F L 03/16/20 08:00 Pulse 67 03/16/20 16:00 Resp 19 03/16/20 16:00 BP 148/58 03/16/20 16:00 Pulse Ox 100 03/16/20 16:00 Intake & Output 03/15/20 03/16/20 03/16/20 18:59 06:59 18:59 Intake Total 1790 840 Output Total 2200 1000 1000 Balance -410 -1000 -160 Weight 98.5 kg Intake: Oral 1790 840 Output: Urine 2200 1000 1000 Other: Voiding Method Bedside Commode Bedside Commode # Voids 2 3 3 - Exam In general patient is alert and oriented 3 in no apparent distress HEENT head normocephalic and atraumatic Neck is supple no JVD no goiter no lymphadenopathy Chest exam reveals a few scattered rhonchi no wheezing Cardiac exam reveals regular heart sounds no gallops no murmurs Abdomen is soft nontender no organomegaly with normal bowel sounds Extremity exam reveals 3+ edema no cyanosis or clubbing Neurological examination reveals no gross focal deficit - Labs CBC & Chem 7: 03/16/20 06:09 03/16/20 06:09 Labs: Abnormal Lab Results - Last 24 Hours (Table) 03/10/20 03/15/20 03/16/20 Range/Units 07:42 20:07 06:09 RBC 2.86 L 2.67 L (3.80-5.40) m/uL Hgb 8.4 L 7.7 L (11.4-16.0) gm/dL Hct 26.7 L 23.7 L (34.0-46.0) % Monocytes # 1.2 H (0-1.0) k/uL Sodium (137-145) mmol/L Chloride (98-107) mmol/L BUN (7-17) mg/dL Creatinine (0.52-1.04) mg/dL Glucose (74-99) mg/dL POC Glucose (mg/dL) 419 H (75-99) mg/dL Calcium (8.4-10.2) mg/dL Total Protein (6.3-8.2) g/dL Albumin (3.5-5.0) g/dL 03/16/20 03/16/20 03/16/20 Range/Units 06:09 06:22 11:54 RBC (3.80-5.40) m/uL Hgb (11.4-16.0) gm/dL Hct (34.0-46.0) % Monocytes # (0-1.0) k/uL Sodium 131 L (137-145) mmol/L Chloride 95 L (98-107) mmol/L BUN 114 H* (7-17) mg/dL Creatinine 2.51 H (0.52-1.04) mg/dL Glucose 123 H (74-99) mg/dL POC Glucose (mg/dL) 138 H 152 H (75-99) mg/dL Calcium 8.2 L (8.4-10.2) mg/dL Total Protein 4.7 L (6.3-8.2) g/dL Albumin 2.6 L (3.5-5.0) g/dL 03/16/20 Range/Units 16:36 RBC (3.80-5.40) m/uL Hgb (11.4-16.0) gm/dL Hct (34.0-46.0) % Monocytes # (0-1.0) k/uL Sodium (137-145) mmol/L Chloride (98-107) mmol/L BUN (7-17) mg/dL Creatinine (0.52-1.04) mg/dL Glucose (74-99) mg/dL POC Glucose (mg/dL) 417 H (75-99) mg/dL Calcium (8.4-10.2) mg/dL Total Protein (6.3-8.2) g/dL Albumin (3.5-5.0) g/dL Assessment and Plan Plan: 1. Acute on chronic renal failure 2. Acute congestive heart failure exacerbation likely diastolic due to fluid overload 3. Acute bronchitis with bronchospasm, recently started on oral antibiotics and oral steroids by Dr. Crockett as outpatient 4. Underlying history of hypertension 5. Underlying history of insulin-dependent diabetes mellitus 6. Underlying history of hyperlipidemia 7. Underlying history of coronary artery disease 8. Episode of diarrhea this morning with black stools with check stool Hemoccult and monitor CBC closely At this time will hold torsemide, start IV Lasix Consult nephrology Consult pulmonary Will follow during this admission for medical management
[2020-03-16 20:32] LABS: Glucose,Whole Blood 456 mg/dL (75-99)
[2020-03-16] MEDS: ATORVASTATIN 10 MG TAB PO SCH (20:57)
[2020-03-16] MEDS: INSULIN DETEMIR (LEVEMIR) 100 UNIT/ML SYR SQ SCH (20:57)
[2020-03-16] MEDS: TEMAZEPAM 15 MG CAP PO SCH (20:57)
[2020-03-17 06:08] LABS: Glucose,Whole Blood 193 mg/dL (75-99)
[2020-03-17] MEDS: INSULIN ASPART (NovoLOG) 100 UNIT/ML VIAL SQ SCH ×2 (06:52→12:29)
[2020-03-17] MEDS: CARVEDILOL 12.5 MG TAB PO SCH (06:52)
[2020-03-17] MEDS: predniSONE 10 MG TAB PO SCH (08:08)
[2020-03-17] MEDS: METOLAZONE 5 MG TAB PO SCH (08:08)
[2020-03-17] MEDS: ISOSORBIDE MONONITRATE ER 30 MG TAB.ER.24H PO SCH (08:08)
[2020-03-17] MEDS: CLOPIDOGREL 75 MG TAB PO SCH (08:08)
[2020-03-17] MEDS: hydrALAZINE HCL 50 MG TAB PO SCH ×2 (08:08→15:33)
[2020-03-17] MEDS: guaiFENesin 600 MG TABLET.ER PO SCH (08:09)
[2020-03-17] MEDS: ASPIRIN 81 MG PO SCH (08:09)
[2020-03-17] MEDS: LOSARTAN 25 MG TAB PO SCH (08:10)
[2020-03-17] MEDS: amLODIPine 2.5 MG TAB PO SCH (08:10)
[2020-03-17] MEDS: IPRATROPIUM-ALBUTEROL 3 ML NEB INHALATION SCH ×2 (08:47→13:38)
[2020-03-17] MEDS ORDERED: BUMETANIDE 1 MG TAB PO SCH ×2 (09:00→21:00)
[2020-03-17 09:55] LABS: Calcium 7.9 mg/dL (8.4-10.2); Potassium 4.5 mmol/L (3.5-5.1)
[2020-03-17 11:03] VITALS: RESP 18
--- NOTE | 2020-03-17 11:28 | PN ---
PROGRESS NOTE Patient is seen for followup for acute kidney injury on top of chronic kidney disease. Patient was admitted to the hospital with diastolic heart failure, volume overload. She is currently maintained on IV diuretics. She has had good diuresis with good decrease in weight since admission. Overall symptoms have improved as well. Therefore, we have held off on starting renal replacement therapy. There are plans for possible discharge today. PHYSICAL EXAMINATION: On examination, patient is comfortable. Blood pressure is 134/57, heart rate 65 per minute, she is afebrile. Patient is awake, alert, oriented x3. Examination of the heart S1, S2. Examination of the lungs, bilateral breath sounds are heard. Abdomen is soft, nontender. Examination of the lower extremities shows edema 2+ bilaterally. 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 LABS: Show sodium 133, potassium 4.5, chloride 95, BUN 107, serum creatinine 2.82. ASSESSMENT: Acute kidney injury on top of chronic kidney disease, mostly cardiorenal. Patient has diuresed well on IV Bumex. We will switch her to oral Bumex which she can continue as outpatient. MMODL / IJN: [id number] /
--- NOTE | 2020-03-17 11:28 | PN ---
PROGRESS NOTE Patient is seen for followup for acute kidney injury. Patient was admitted to the hospital with shortness of breath, volume overload. She is currently being diuresed. She has acute kidney injury, mainly cardiorenal on top of chronic kidney disease. There was initial consideration for renal replacement therapy. However, patient's volume status had improved and therefore we are holding off on dialysis for now. She has responded well to IV Bumex and patient is being considered for discharge today to rehab. PHYSICAL EXAMINATION: On examination today, blood pressure was 134/57, heart rate 65 per minute, she is afebrile. Examination of the heart S1, S2. Examination of the lungs, bilateral breath sounds are heard. Abdomen is soft, nontender. Examination of the lower extremities shows edema 2+ bilaterally. [employer]EL exam grossly intact. LABS: Show sodium 133, potassium 4.5, chloride 95, BUN 107, serum creatinine 2.82. ASSESSMENT: 1. Acute kidney injury cardiorenal, serum creatinine slightly higher than yesterday. Patient can be switched over to oral Bumex today. 2. Disproportionately elevated BUN also secondary to steroids. 3. Chronic kidney disease NKF stage 4 with baseline creatinine around 2.2 to 2.1 mg/dL, secondary to nephrosclerosis. 4. Diastolic heart failure. 5. Volume overload. 6. Congestive heart failure, acute on top of chronic, mainly diastolic. PLAN: Switch to oral Bumex today. Patient can be discharged. Continue with the Zaroxolyn as well. Follow up in the office in 1 week's time. If the patient's volume status worsens, she will be started on renal replacement therapy as outpatient. MMODL / SPENCERN: [id number] /
[2020-03-17] MEDS: DARBEPOETIN ALFA 60 MCG/0.3 ML SYRINGE SQ SCH (11:52)
[2020-03-17 12:01] LABS: Glucose,Whole Blood 236 mg/dL (75-99)
--- NOTE | 2020-03-17 12:16 | P.PN ---
Subjective Progress Note Date: 03/17/20 Principal diagnosis: Acute on chronic renal failure, acute exacerbation of COPD and diastolic CHF This is a very pleasant 80-year-old female patient who follows with Dr. Ward as her primary care provider. She has a history of morbid obesity, diabetes mellitus, hypertension, obstructive sleep apnea, hypothyroidism, systolic congestive heart failure, chronic kidney disease stage III, coronary artery disease with previous bypass surgery, permanent pacemaker implantation, chronic and ongoing tobacco dependence of greater than 50 years. She has been seen by Dr. Ch in our office on 03/07/2020 and treated for an acute exacerbation of COPD with Zithromax and steroids. She presented here to the hospital again yesterday after being instructed to go to the emergency room based on abnormal lab findings by nephrology. Her creatinine was up to 2.52. She is seen today in consultation on the selective care unit. She is currently awake and alert in no acute distress. Resting fairly comfortably in bed. She is maintaining O2 saturations in the low 90s on 4 L/m per nasal cannula. Chest x-ray revealed evidence of cardiomegaly and pulmonary venous congestion. White count 8.4. Hemoglobin 8.4. Sodium 136. Potassium 5.0. Creatinine 2.49. ProBNP 37,300. She's been initiated on DuoNeb inhalations, IV diuretics, Mucinex and oral prednisone taper. The patient is seen today 03/11/2020 in follow-up on the selective care unit. She is currently sitting up in bed. Awake and alert in no acute distress. Maintaining O2 saturations in the upper 90s on 2 L/m per nasal cannula. White count 7.1. Hemoglobin 8.1. Sodium 1:30. Potassium 4.6. Creatinine 2.36. She remains on bronchodilators, antibiotics, diuretics. Patient is seen today 03/12/2020 in follow-up on the selective care unit. Currently sitting up in a chair at the bedside. Awake and alert in no acute distress. Still with some dyspnea on minimal exertion. Maintain good O2 saturations in the mid 90s on room air. White count 7.4. Hemoglobin 7.4. Sodium 135. Potassium 4.9. Creatinine 2.48. Currently on bronchodilators, ceftriaxone, prednisone. The patient is seen today 03/16/2020 in follow-up on the selective care unit. She is currently up in a chair at the bedside. Awake and alert in no acute distress. She is maintaining good O2 saturations in the high 90s on 3 L/m per nasal cannula. She's afebrile. Hemodynamically stable. White count 7.9. Hemoglobin 7.7. Sodium 131. Potassium 4.6. BUN 114. Creatinine 2.51. Currently in a negative balance. Weight 98.5 kg. On 03/17/2020 patient seen in follow-up on selective care unit. She is resting comfortably in bed, in no acute distress, she is on 3 L of oxygen and the pulse ox 100%, hemodynamically she stable, no fever or chills, she is maintaining negative fluid balance, she is in -5.2 L over the last 24 hours, she has been switched to oral Bumex by nephrology, she is on 30 mg of prednisone, breathing treatments, no significant rhonchi or wheezing, she is on empiric antibiotics in the form of Rocephin. Today's labs have been reviewed, serum sodium is 133, potassium is 4.5, B1 is 107, and creatinine is 2.82. Objective - Vital Signs Vital signs: Vital Signs Temp 98 F 03/17/20 11:52 Pulse 65 03/17/20 11:52 Resp 18 03/17/20 11:52 BP 169/73 03/17/20 11:52 Pulse Ox 100 03/17/20 11:52 Intake & Output 03/16/20 03/17/20 03/17/20 18:59 06:59 18:59 Intake Total 840 450 225 Output Total 1000 5500 Balance -160 -5050 225 Weight 98.6 kg Intake: Oral 840 450 225 Output: Urine 1000 5500 Other: Voiding Method Bedside Commode Bedside Commode # Voids 3 - Exam GENERAL EXAM: Alert, very pleasant, 80-year-old white female, 3 L of oxygen pulse ox 100% comfortable in no apparent distress. HEAD: Normocephalic/atraumatic. EYES: Normal reaction of pupils, equal size. Conjunctiva pink, sclera white. NOSE: Clear with pink turbinates. THROAT: No erythema or exudates. NECK: No masses, no JVD, no thyroid enlargement, no adenopathy. CHEST: No chest wall deformity. Symmetrical expansion. LUNGS: Equal air entry with no crackles, wheeze, rhonchi or dullness. CVS: Regular rate and rhythm, normal S1 and S2, no gallops, no murmurs, no rubs ABDOMEN: Soft, nontender. No hepatosplenomegaly, normal bowel sounds, no guarding or rigidity. EXTREMITIES: No clubbing, 1+ pitting edema involving bilateral lower extremities no cyanosis, 2+ pulses and upper and lower extremities. MUSCULOSKELETAL: Muscle strength and tone normal. SPINE: No scoliosis or deformity SKIN: No rashes CENTRAL NERVOUS SYSTEM: Alert and oriented -3. No focal deficits, tone is normal in all 4 extremities. PSYCHIATRIC: Alert and oriented -3. Appropriate affect. Intact judgment and insight. - Labs CBC & Chem 7: 03/16/20 06:09 03/17/20 09:09 Labs: Abnormal Lab Results - Last 24 Hours (Table) 03/16/20 03/16/20 03/17/20 Range/Units 16:36 20:30 06:07 Sodium (137-145) mmol/L Chloride (98-107) mmol/L BUN (7-17) mg/dL Creatinine (0.52-1.04) mg/dL Glucose (74-99) mg/dL POC Glucose (mg/dL) 417 H 456 H 193 H (75-99) mg/dL Calcium (8.4-10.2) mg/dL 03/17/20 03/17/20 Range/Units 09:09 12:00 Sodium 133 L (137-145) mmol/L Chloride 95 L (98-107) mmol/L BUN 107 H* (7-17) mg/dL Creatinine 2.82 H (0.52-1.04) mg/dL Glucose 136 H (74-99) mg/dL POC Glucose (mg/dL) 236 H (75-99) mg/dL Calcium 7.9 L (8.4-10.2) mg/dL Assessment and Plan Plan: Assessment: 1 Acute on chronic renal failure 2 Acute exacerbation of chronic obstructive pulmonary disease 3 Acute exacerbation of chronic diastolic congestive heart failure 4 Acute on chronic hypoxemic respiratory failure secondary to above 5 Chronic kidney disease, stage III 6 History of coronary artery disease status post bypass grafting 19 years ago 7 History of CHF with diastolic dysfunction, echocardiogram showed low normal EF of 50-55% moderate mitral regurgitation, trace tricuspid regurg, PA systolic of less than 35 mmHg, normal inferior vena cava with normal inspiratory collapse an estimated right atrial pressure of 5 mmHg 8 Diabetes mellitus 9 Chronic smoker, carries 50 years of smoking of less than a pack a day, and more recently started vaping in an attempt to quit smoking 10 Oxygen dependent COPD, not consistently compliant with oxygen 11 Hypertension 12 Hyperlipidemia 13 Permanent pacemaker insertion in 2015 14 Obesity, with history of lap band 15 Obstructive sleep apnea on BiPAP machine Plan: Diuretics per nephrology, patient is maintaining negative fluid balance, breathing easier, fluid status is improving, decreased oral prednisone dose to 20 mg, no significant rhonchi or wheezing, continue breathing treatments, increase activity as tolerated, continue monitoring renal profile and electrolytes. Patient has been afebrile, she has received 7 days worth of IV Rocephin, we can discontinue it now. From pulmonary perspective patient can be considered for discharge home when cleared by nephrology and primary care service I performed a history & physical examination of the patient and discussed their management with my nurse practitioner, Marylu Lovelace. I reviewed the nurse practitioner's note and agree with the documented findings and plan of care. Lung sounds are positive for diminished breath sounds. The findings and the impression was discussed with the patient. I attest to the documentation by the nurse practitioner. Time with Patient: Less than 30
--- NOTE | 2020-03-17 14:22 | P.PN ---
Subjective Progress Note Date: 03/17/20 This is a pleasant 80-year-old female with history of morbid obesity, diabetes, hypertension, hyperlipidemia, obstructive sleep apnea, COPD, hypothyroidism, systolic congestive heart failure, chronic kidney disease, coronary artery disease with prior bypass surgery, prior pacer, nicotine dependence, for greater than 50 year history. Patient was initially directed to come to the hospital because of abnormality in renal function on outpatient labs. Also currently being treated for an acute exacerbation of congestive heart failure, diastolic in nature as well as ask exacerbation of COPD. Patient was seen and examined today, overall feeling better. She does continue to have some lower extremity edema. Blood pressure 130/60 with a heart rate in the 60s, 98% on 3 L of oxygen. White blood cell count 8.8, hemoglobin 8.0, platelet count 178. Sodium 133, potassium 4.7, BUN 99, creatinine 2.6. 03/15/2020 Patient was seen and examined this morning, diuresed well through the night last night. Lungs are clear today. Blood pressure 122/60 with a heart rate in the 60s, 98% on 3 L of oxygen. 03/16/2020 Patient was seen and examined this morning, appears to be quite comfortable at the time of our examination. Sodium 131, potassium 4.6, BUN 114, creatinine 2.5. White blood cell count 7.9, hemoglobin 7.7, platelet count 195. 03/17/2020 Patient seen and examined this morning, today she was sitting up in the chair at bedside. She looks good overall, dates that she had some difficulty in breathing through the night last night. Blood pressure 158/73, heart rate in the 60s, 100% on 3 L of oxygen. Sodium 133, potassium 4.5, BUN 107, creatinine 2.8. Objective - Vital Signs Vital signs: Vital Signs Temp 98 F 03/17/20 11:52 Pulse 65 03/17/20 13:54 Resp 18 03/17/20 11:52 BP 169/73 03/17/20 11:52 Pulse Ox 100 03/17/20 11:52 Intake & Output 03/16/20 03/17/20 03/17/20 18:59 06:59 18:59 Intake Total 840 450 275 Output Total 1000 5500 Balance -160 -5050 275 Weight 98.6 kg Intake: Intake, IV Titration 50 Amount cefTRIAXone 1 gm In 50 Sodium Chloride 0.9% 50 ml @ 100 mls/hr IVPB Q24HR [facility] Rx#:[id number] Oral 840 450 225 Output: Urine 1000 5500 Other: Voiding Method Bedside Commode Bedside Commode # Voids 3 1 - Exam GENERAL EXAM: Patient is alert and oriented and doesn't appear to be in any acute distress HEENT: Normocephalic. Normal reaction of pupils, equal size, normal range of extraocular motion. No erythema or exudates in the throat. NECK: No masses, no nuchal rigidity. CHEST: No chest wall deformity. LUNGS: Clear to auscultation HEART: S1 and S2 normal with no audible mumurs or gallops. Regular rhythm, femorals equal on both sides.. ABDOMEN: No hepatosplenomegaly, normal bowel sounds, no guarding or rigidity. SKIN: No rashes CENTRAL NERVOUS SYSTEM: No focal deficits. EXTREMITIES:1-+ edema - Labs CBC & Chem 7: 03/16/20 06:09 03/17/20 09:09 Labs: Abnormal Lab Results - Last 24 Hours (Table) 03/16/20 03/16/20 03/17/20 Range/Units 16:36 20:30 06:07 Sodium (137-145) mmol/L Chloride (98-107) mmol/L BUN (7-17) mg/dL Creatinine (0.52-1.04) mg/dL Glucose (74-99) mg/dL POC Glucose (mg/dL) 417 H 456 H 193 H (75-99) mg/dL Calcium (8.4-10.2) mg/dL 03/17/20 03/17/20 Range/Units 09:09 12:00 Sodium 133 L (137-145) mmol/L Chloride 95 L (98-107) mmol/L BUN 107 H* (7-17) mg/dL Creatinine 2.82 H (0.52-1.04) mg/dL Glucose 136 H (74-99) mg/dL POC Glucose (mg/dL) 236 H (75-99) mg/dL Calcium 7.9 L (8.4-10.2) mg/dL Assessment and Plan Plan: Assessment and plan #1 Acute on chronic renal failure #2 Acute exacerbation of chronic obstructive pulmonary disease #3 Acute exacerbation of chronic diastolic congestive heart failure #4 Acute on chronic hypoxemic respiratory failure secondary to above #5 Chronic kidney disease, stage III #6 History of coronary artery disease status post bypass grafting 19 years ago #7 History of CHF with diastolic dysfunction, echocardiogram showed low normal EF of 50-55% moderate mitral regurgitation, trace tricuspid regurg, PA systolic of less than 35 mmHg, normal inferior vena cava with normal inspiratory collapse an estimated right atrial pressure of 5 mmHg #8 Diabetes mellitus #9 Chronic smoker, carries 50 years of smoking of less than a pack a day, and more recently started vaping in an attempt to quit smoking #10 Oxygen dependent COPD, not consistently compliant with oxygen #11 Hypertension #12 Hyperlipidemia #13 Permanent pacemaker insertion in 2015 #14 Obesity, with history of lap band #15 Obstructive sleep apnea on BiPAP machine Plan From cardiology's perspective, patient may be able to be discharged once cleared by primary and nephrology. We'll make a follow-up appointment in the office post discharge. DNP note has been reviewed, I agree with a documented findings and plan of care. Patient was seen and examined.
[2020-03-17 15:33] VITALS: BP 138/58; PULSE 60; TEMP 97.2
--- NOTE | 2020-03-17 15:58 | P.DS ---
Providers Date of admission: 03/09/20 15:46 Expected date of discharge: 03/17/20 Attending physician: Lona Arias Consults: 03/09/20 15:46 Consult Physician Routine Consulting Provider: Usman Guillen Consult Reason/Comments: arf Do you want consulting provider notified?: Yes Consult Physician Routine Consulting Provider: Shandra Noble Consult Reason/Comments: chf Do you want consulting provider notified?: Yes 03/09/20 17:41 Consult Physician Routine Consulting Provider: Deondre Ch Consult Reason/Comments: shortness of breath Do you want consulting provider notified?: Yes Primary care physician: [facility] Course: Diagnosis on discharge: 1. Acute on chronic renal failure 2. Acute congestive heart failure exacerbation likely diastolic due to fluid overload 3. Acute bronchitis with bronchospasm, recently started on oral antibiotics and oral steroids by Dr. Crockett as outpatient 4. Underlying history of hypertension 5. Underlying history of insulin-dependent diabetes mellitus 6. Underlying history of hyperlipidemia 7. Underlying history of coronary artery disease 8. Episode of diarrhea this morning with black stools with check stool Hemoccult and monitor CBC closely Hospital course: Elza Avery is an 80-year-old female with known history of chronic kidney disease who had blood tests recently and is followed by Dr. Fletcher she was called this morning and was told to go to emergency room in regard to worsening blood test and continuing to have shortness of breath, patient was evaluated in the emergency room, blood pressure was elevated at 154/69 pulse ox 90% on 4 L via nasal cannula temperature 98.4 pulse 81 respiration 22 . chest x-ray was suggestive of congestive heart failure, hemoglobin 8.2 BUN 63 creatinine 2.52 creatinine on 02/17/2020 was 2.06 hemoglobin on 02/13/2020 was 10.8, patient stated that she had diarrhea with black stools this morning. On review of systems patient is complaining of cough and shortness of breath, she stated that she follows with Dr. Crockett he recently started her on a course of Zithromax and a course of prednisone, she had diarrhea this morning otherwise she denies any complaints there is no fever or chills no headache or dizziness no chest pain no nausea or vomiting no abdominal pain no burning with urination no frequency or urgency and no hematuria On 03/10/2020 patient was seen and examined on the medical floor she is alert and oriented 3 in no apparent distress, shortness of breath better than yesterday, she is still complaining of cough otherwise she denies any complaints there is no fever or chills no headache or dizziness no chest pain, no nausea or vomiting no abdominal pain no diarrhea no burning with urination no frequency or urgency and no hematuria On 03/12/2020 patient was seen and examined on the medical floor she is alert and oriented in no apparent distress she is still complaining of shortness of breath with any activity she is complaining of significant lower extremity swelling otherwise she denies any complaints there is no fever or chills no headache or dizziness no chest pain no cough no nausea or vomiting no abdominal pain no diarrhea no burning with urination no frequency or urgency no hematuria on 03/13/2020 patient was seen and examined on the medical floor she is alert and oriented 3 in no apparent distress she is still complaining of severe bilateral lower extremity edema and complaining of shortness of breath with any activity nephrology are following and diuretics are being adjusted, so far no significant improvement, patient is also being followed by cardiology. Otherwise patient denies any complaints there is no fever or chills no headache or dizziness no chest pain no cough no nausea or vomiting no abdominal pain no diarrhea no burning with urination no frequency or urgency and no hematuria On 03/14/2020 patient was seen and examined on the medical floor she is alert and oriented in no apparent distress there is no fever or chills no headache or dizziness no chest pain she is still complaining of shortness of breath there is no cough no nausea or vomiting no abdominal pain no diarrhea no burning with urination no frequency or urgency there is 3+ edema in bilateral lower extremities. 03/15/2020 patient was seen and examined on the telemetry floor she is alert and oriented 3 she reports some improvement in her lower extremity swelling and her shortness of breath she reports some improvement in her urine output otherwise she denies any complaints there is no fever or chills no headache or dizziness no chest pain no cough no nausea or vomiting no abdominal pain no diarrhea no blood in the stools no burning with urination no frequency or urgency and no hematuria On 03/16/2020 patient was seen and examined on the medical floor she is alert and oriented 3 in no apparent distress she reports some improvement in her sergio rtness of breath and her lower extremity edema, otherwise she denies any complaints there is no fever or chills no headache or dizziness no chest pain no shortness of breath no cough no nausea or vomiting no abdominal pain no diarrhea no burning with urination no frequency or urgency no hematuria On 03/17/2020 patient was seen and examined on the medical floor feeling better shortness of breath has improved since yesterday there is no fever or chills no headache or dizziness no chest pain no nausea or vomiting no abdominal pain no diarrhea no burning with urination no frequency or urgency and no hematuria. Diuretics were adjusted patient is now on Bumex 2 mg by mouth twice daily and Zaroxolyn 5 mg by mouth daily responding well patient was cleared for discharge by nephrology pulmonary and cardiology he would be discharged to [facility] on the light today Will follow up at [facility] for rehabilitation patient will then be followed by her primary care physician Dr. Ward Patient Condition at Discharge: Good Plan - Discharge Summary Discharge Rx Participant: No New Discharge Prescriptions: New Bumetanide [BUMEX] 2 mg PO BID tab Carvedilol [Coreg*] 12.5 mg PO BID-W/MEALS tab Ipratropium-Albuterol Nebulize [Duoneb 0.5 mg-3 mg/3 ml Soln] 3 ml INHALATION RT-TID ml amLODIPine [Norvasc] 2.5 mg PO DAILY tab Temazepam [Restoril] 30 mg PO HS cap guaiFENesin-Coden 100-10MG/5ML [Robitussin AC] 10 ml PO Q6H PRN ml PRN Reason: Cough Metolazone [Zaroxolyn] 10 mg PO DAILY tab Continue Simvastatin [Zocor] 5 mg PO HS Clopidogrel [Plavix] 75 mg PO DAILY 30 Days #30 tab Losartan Potassium 100 mg PO DAILY Isosorbide Mononitrate ER [Imdur] 30 mg PO DAILY Insulin Lispro [humaLOG Kwikpen] 10 unit SQ AC-TID Insulin Detemir [Levemir Flextouch] 20 unit SQ HS Aspirin EC [Ecotrin Low Dose] 81 mg PO DAILY hydrALAZINE HCL [Apresoline] 100 mg PO TID@0900,1600,2200 predniSONE See Taper PO DAILY 4 Days #4 Discontinued Insulin Lispro [humaLOG Kwikpen] See Protocol SQ AC-TID Temazepam 30 mg PO HS Torsemide [Demadex] 20 mg PO DAILY Sodium Bicarbonate Tab 650 mg PO QID tab Azithromycin [Zithromax Tri-Ford] 500 mg PO DAILY Carvedilol [Coreg] 6.25 mg PO AC-BID@0900,1700 guaiFENesin [Mucinex] 600 mg PO Q12H Discharge Medication List Simvastatin [Zocor] 5 mg PO HS 11/29/17 [History] Clopidogrel [Plavix] 75 mg PO DAILY 30 Days #30 tab 11/17/19 [Rx] Isosorbide Mononitrate ER [Imdur] 30 mg PO DAILY 02/13/20 [History] Losartan Potassium 100 mg PO DAILY 02/13/20 [History] Insulin Lispro [humaLOG Kwikpen] 10 unit SQ AC-TID 02/14/20 [History] Aspirin EC [Ecotrin Low Dose] 81 mg PO DAILY 03/09/20 [History] Insulin Detemir [Levemir Flextouch] 20 unit SQ HS 03/09/20 [History] hydrALAZINE HCL [Apresoline] 100 mg PO TID@0900,1600,2200 03/09/20 [History] Bumetanide [BUMEX] 2 mg PO BID tab 03/17/20 [Rx] Carvedilol [Coreg*] 12.5 mg PO BID-W/MEALS tab 03/17/20 [Rx] Ipratropium-Albuterol Nebulize [Duoneb 0.5 mg-3 mg/3 ml Soln] 3 ml INHALATION RT-TID ml 03/17/20 [Rx] Metolazone [Zaroxolyn] 10 mg PO DAILY tab 03/17/20 [Rx] Temazepam [Restoril] 30 mg PO HS cap 03/17/20 [Rx] amLODIPine [Norvasc] 2.5 mg PO DAILY tab 03/17/20 [Rx] guaiFENesin-Coden 100-10MG/5ML [Robitussin AC] 10 ml PO Q6H PRN ml 03/17/20 [Rx] predniSONE See Taper PO DAILY 4 Days #4 03/17/20 [Rx] Follow up Appointment(s)/Referral(s): Carissa Ward MD [Primary Care Provider] - 1-2 days [facility] [NON-STAFF] -
[2020-03-18] MEDS ORDERED: predniSONE 20 MG TAB PO SCH (09:00)
== END 2020-03-17 16:30 | DRG 291 ==
LOC: EC 13:03 → 3SCARD 15:46
PROVIDERS: ADMIT Internal Medicine; ATTEND Internal Medicine
DX: I13.0 Hypertensive heart and chronic kidney disease with heart failure and stage 1 through stage 4 chronic kidney disease, or unspecified chronic kidney disease (principal); I50.43 Acute on chronic combined systolic (congestive) and diastolic (congestive) heart failure; J96.21 Acute and chronic respiratory failure with hypoxia; E87.4 Mixed disorder of acid-base balance; J44.1 Chronic obstructive pulmonary disease with (acute) exacerbation; J44.0 Chronic obstructive pulmonary disease with (acute) lower respiratory infection; N17.9 Acute kidney failure, unspecified; N18.4 Chronic kidney disease, stage 4 (severe); D63.8 Anemia in other chronic diseases classified elsewhere; D50.9 Iron deficiency anemia, unspecified; Z11.59 Encounter for screening for other viral diseases; E89.0 Postprocedural hypothyroidism; E11.22 Type 2 diabetes mellitus with diabetic chronic kidney disease; E66.01 Morbid (severe) obesity due to excess calories; Z68.35 Body mass index [BMI] 35.0-35.9, adult; Z98.84 Bariatric surgery status; E78.5 Hyperlipidemia, unspecified; F17.210 Nicotine dependence, cigarettes, uncomplicated; G47.33 Obstructive sleep apnea (adult) (pediatric); Z99.89 Dependence on other enabling machines and devices; I25.10 Atherosclerotic heart disease of native coronary artery without angina pectoris; I08.1 Rheumatic disorders of both mitral and tricuspid valves; I42.9 Cardiomyopathy, unspecified; J20.9 Acute bronchitis, unspecified; T38.0X5A Adverse effect of glucocorticoids and synthetic analogues, initial encounter; Z79.02 Long term (current) use of antithrombotics/antiplatelets; Z79.4 Long term (current) use of insulin; Z79.82 Long term (current) use of aspirin; Z79.899 Other long term (current) drug therapy; Z80.8 Family history of malignant neoplasm of other organs or systems; Z82.49 Family history of ischemic heart disease and other diseases of the circulatory system; Z90.710 Acquired absence of both cervix and uterus; Z95.0 Presence of cardiac pacemaker; Z95.1 Presence of aortocoronary bypass graft; Z95.5 Presence of coronary angioplasty implant and graft; Z99.81 Dependence on supplemental oxygen; Z98.42 Cataract extraction status, left eye; E04.1 Nontoxic single thyroid nodule; Z91.19 Patient's noncompliance with other medical treatment and regimen; Z86.19 Personal history of other infectious and parasitic diseases; Z88.2 Allergy status to sulfonamides; R19.7 Diarrhea, unspecified
CPT/HCPCS: 36415; 71045; 71046; 80048; 80053; 83540; 83550; 83605; 83735; 83880; 84484; 85025; 85610; 85730; 86704; 86706; 86850; 86900; 86901; 87340; 93005; 93970; 94640; 94760; 99285

== ENCOUNTER 2020-03-27 15:52 | Inpatient (IN) | payer MEDICARE, BC ==
--- NOTE | 2020-03-27 16:18 | ED ---
General Adult HPI - General Chief complaint: Recheck/Abnormal Lab/Rx Stated complaint: dialysis Time Seen by Provider: 03/27/20 16:00 Source: patient, EMS Mode of arrival: EMS Limitations: no limitations - History of Present Illness Initial comments: Patient is an 80-year-old female past history of diabetes, hypertension, chronic kidney disease, CHF who presents to the emergency department from [facility]. Patient was transferred for abnormal labs. Patient was recently hospitalized on march for heart failure. She was discharged to [facility] where she has had worsening kidney function. She is on diuresis and reports to improved lower extremity edema and has had improvement in her breathing. States she feels a symptomatically at this time. Patient did sustain a fall a few days ago in the shower. She has bruising to her left humerus and right foot. States x-rays were performed which demonstrated no acute fractures. Patient continues to make urine. Denies dysuria, hematuria or difficult voiding. She sees Dr. Guillen. No other alleviating, precipitating or modifying factors - Related Data Home Medications Medication Instructions Recorded Confirmed Simvastatin [Zocor] 5 mg PO HS@209911/29/17 03/27/20 Losartan Potassium 100 mg PO DAILY@89902/13/20 03/27/20 Insulin Lispro [humaLOG Kwikpen] 10 unit SQ AC-TID 02/14/20 03/27/20 Aspirin EC [Ecotrin Low Dose] 81 mg PO DAILY@89903/09/20 03/27/20 hydrALAZINE HCL [Apresoline] 100 mg PO TID@0900,1600,2200 03/09/20 03/27/20 Bumetanide [BUMEX] 2 mg PO BID@0900,1700 03/27/20 03/27/20 Clopidogrel [Plavix] 75 mg PO DAILY@89903/27/20 03/27/20 Insulin Glargine,Hum.rec.anlog 20 unit SQ HS@209903/27/20 03/27/20 [Basaglar Kwikpen U-100] Insulin Lispro [humaLOG Kwikpen] See Protocol SQ ACHS 03/27/20 03/27/20 Isosorbide Mononitrate ER [Imdur] 30 mg PO DAILY@0900 07/20/20 07/20/20 Nicotine 14Mg/24Hr Patch [Habitrol 1 patch TRANSDERM HS@209903/27/20 03/27/20 14Mg/24Hr Patch] Temazepam [Restoril] 30 mg PO HS@209903/27/20 03/27/20 amLODIPine [Norvasc] 2.5 mg PO DAILY@0900 03/27/20 03/27/20 carvediloL [Coreg*] 12.5 mg PO BID@0900,1700 03/27/20 03/27/20 metOLazone [Zaroxolyn] 10 mg PO DAILY@0900 03/27/20 03/27/20 Previous Rx's Medication Instructions Recorded guaiFENesin-Coden 100-10MG/5ML 10 ml PO Q6H PRN ml 03/17/20 [Robitussin AC] Allergies Allergy/AdvReac Type Severity Reaction Status Date / Time Sulfa (Sulfonamide Allergy Unknown Verified 03/27/20 17:26 Antibiotics) sulfamethoxazole Allergy Unknown Verified 03/27/20 17:26 [From Bactrim] trimethoprim [From Bactrim] Allergy Unknown Verified 03/27/20 17:26 Review of Systems ROS Statement: Those systems with pertinent positive or pertinent negative responses have been documented in the HPI. ROS Other: All systems not noted in ROS Statement are negative. Past Medical History Past Medical History: Diabetes Mellitus, Hypertension, Musculoskeletal Disorder, Sleep Apnea/CPAP/BIPAP, Thyroid Disorder Additional Past Medical History / Comment(s): COPD, CHF with diastolic heart failure, hypertension, chronic kidney disease stage III, coronary artery disease with previous bypass surgery, history of pacemaker insertion 2014, diabetes mellitus, hypertension, obstructive sleep apnea, thyroid nodules, hyperlipidemia, history of smoking in the order of [id number] History of Any Multi-Drug Resistant Organisms: ESBL Date of last positivie culture/infection: 10/18/19 MDRO Source:: ESBL URINE Past Surgical History: Appendectomy, Back Surgery, Bariatric Surgery, Coronary Bypass/CABG, Heart Catheterization, Hysterectomy, Pacemaker Additional Past Surgical History / Comment(s): LAP BAND, CATARACT LEFT EYE, NEUROMA ON FOOT, KNEE ARTHROSCOPY, PACEMAKER ([employer] 04/18/2015) Partial thyroidectomy 2000 Past Anesthesia/Blood Transfusion Reactions: No Reported Reaction Type of Cardiac Device: Permanent Pacemaker Device Placement Date:: 04/18/2015 [employer] Past Psychological History: No Psychological Hx Reported Past Alcohol Use History: Occasional Past Drug Use History: None Reported - Past Family History Son(s) Family Medical History: Cancer Additional Family Medical History / Comment(s): MELANOMA Father History Unknown: Yes Family Medical History: Cancer Mother Family Medical History: Coronary Artery Disease (CAD) Brother(s) Family Medical History: Cancer General Exam Limitations: no limitations General appearance: alert, in no apparent distress Head exam: Present: atraumatic, normocephalic, normal inspection Eye exam: Present: normal appearance, PERRL, EOMI. Absent: scleral icterus, conjunctival injection, periorbital swelling ENT exam: Present: normal exam, mucous membranes moist Neck exam: Present: normal inspection. Absent: tenderness, meningismus, lymphad enopathy Respiratory exam: Present: normal lung sounds bilaterally. Absent: respiratory distress, wheezes, rales, rhonchi, stridor Cardiovascular Exam: Present: regular rate, normal rhythm, normal heart sounds. Absent: systolic murmur, diastolic murmur, rubs, gallop, clicks GI/Abdominal exam: Present: soft, normal bowel sounds. Absent: distended, tenderness, guarding, rebound, rigid Extremities exam: Present: normal inspection, full ROM, normal capillary refill, pedal edema. Absent: tenderness, joint swelling, calf tenderness Back exam: Present: normal inspection Neurological exam: Present: alert, oriented X3, CN II-XII intact Psychiatric exam: Present: normal affect, normal mood Skin exam: Present: warm, dry, intact, other (ecchymosis over dorsal right foot and left bicep). Absent: rash Course Vital Signs 03/27/20 03/27/20 03/27/20 16:01 16:44 19:09 Temperature 98.3 F Pulse Rate 66 68 68 Respiratory 16 18 18 Rate Blood Pressure 142/56 139/61 154/90 O2 Sat by Pulse 99 97 94 L Oximetry 03/27/20 19:10 Temperature 98.3 F Pulse Rate 68 Respiratory 18 Rate Blood Pressure 154/90 O2 Sat by Pulse 94 L Oximetry EKG Findings - EKG Comments: EKG Findings:: EKG demonstrates an electronic ventricular pacemaker. Rate of 63. [place] interval 234. QRS 182. QTC of 43. Pacemaker captures properly. No acute ST segment elevations. Medical Decision Making - Medical Decision Making Upon arrival the patient is placed into room 3. A thorough history and physical exam was performed. Patient is a symptomatically at this time. Laboratory studies were performed which demonstrated BUN 148 and a creatinine of 3.8. Hemoglobin is 8.2. BNP 12,700. Chest x-ray does demonstrate small pleural effusions which are improved compared to last exam. No obvious heart failure. I did discuss results with the patient. She is resting complaint this time. I will admit the patient for nephrology evaluation. I discussed the case with Dr. Ferris who accepted admission. Patient was then transferred to the floor - Lab Data Result diagrams: 04/01/20 05:52 04/01/20 05:52 Lab Results 03/27/20 03/27/20 03/27/20 Range/Units 16:57 16:57 16:57 WBC 6.6 (3.8-10.6) k/uL RBC 2.80 L (3.80-5.40) m/uL Hgb 8.2 L (11.4-16.0) gm/dL Hct 25.0 L (34.0-46.0) % MCV 89.4 (80.0-100.0) fL MCH 29.2 (25.0-35.0) pg MCHC 32.7 (31.0-37.0) g/dL RDW 14.3 (11.5-15.5) % Plt Count 152 (150-450) k/uL Neutrophils % (Manual) 65 % Lymphocytes % (Manual) 23 % Monocytes % (Manual) 8 % Eosinophils % (Manual) 4 % Neutrophils # (Manual) 4.29 (1.3-7.7) k/uL Lymphocytes # (Manual) 1.52 (1.0-4.8) k/uL Monocytes # (Manual) 0.53 (0-1.0) k/uL Eosinophils # (Manual) 0.26 (0-0.7) k/uL Nucleated RBCs 0 (0-0) /100 WBC Manual Slide Review Performed Hypochromasia Slight Poikilocytosis (manual Anisocytosis (manual) PT 10.2 (9.0-12.0) sec INR 1.0 (<1.2) APTT 22.4 (22.0-30.0) sec Sodium 135 L (137-145) mmol/L Potassium 5.0 (3.5-5.1) mmol/L Chloride 100 (98-107) mmol/L Carbon Dioxide 25 (22-30) mmol/L Anion Gap 10 mmol/L BUN 148 H* (7-17) mg/dL Creatinine 3.82 H (0.52-1.04) mg/dL Est GFR (CKD-EPI)AfAm 12 (>60 ml/min/1.73 sqM) Est GFR (CKD-EPI)NonAf 11 (>60 ml/min/1.73 sqM) Glucose 167 H (74-99) mg/dL POC Glucose (mg/dL) (75-99) mg/dL POC Glu Dyeing Machine Tender ID Plasma Lactic Acid David (0.7-2.0) mmol/L Calcium 8.5 (8.4-10.2) mg/dL Magnesium 2.9 H (1.6-2.3) mg/dL Total Bilirubin 0.3 (0.2-1.3) mg/dL AST 18 (14-36) U/L ALT 15 (4-34) U/L Alkaline Phosphatase 91 (38-126) U/L Creatine Kinase 61 (30-135) U/L Troponin I (0.000-0.034) ng/mL NT-Pro-B Natriuret Pep pg/mL Total Protein 5.7 L (6.3-8.2) g/dL Albumin 3.3 L (3.5-5.0) g/dL Urine Color Urine Appearance (Clear) Urine pH (5.0-8.0) Ur Specific [place] (1.001-1.035) Urine Protein (Negative) Urine Glucose (UA) (Negative) Urine Ketones (Negative) Urine Blood (Negative) Urine Nitrite (Negative) Urine Bilirubin (Negative) Urine Urobilinogen (<2.0) mg/dL Ur Leukocyte Esterase (Negative) Urine WBC (0-5) /hpf Ur Squamous Epith Cells (0-4) /hpf Urine Mucus (None) /hpf Coronavirus (PCR) (Not Detected) 03/27/20 03/27/20 03/27/20 Range/Units 16:57 16:57 16:57 WBC (3.8-10.6) k/uL RBC (3.80-5.40) m/uL Hgb (11.4-16.0) gm/dL Hct (34.0-46.0) % MCV (80.0-100.0) fL MCH (25.0-35.0) pg MCHC (31.0-37.0) g/dL RDW (11.5-15.5) % Plt Count (150-450) k/uL Neutrophils % (Manual) % Lymphocytes % (Manual) % Monocytes % (Manual) % Eosinophils % (Manual) % Neutrophils # (Manual) (1.3-7.7) k/uL Lymphocytes # (Manual) (1.0-4.8) k/uL Monocytes # (Manual) (0-1.0) k/uL Eosinophils # (Manual) (0-0.7) k/uL Nucleated RBCs (0-0) /100 WBC Manual Slide Review Hypochromasia Poikilocytosis (manual Anisocytosis (manual) PT (9.0-12.0) sec INR (<1.2) APTT (22.0-30.0) sec Sodium (137-145) mmol/L Potassium (3.5-5.1) mmol/L Chloride (98-107) mmol/L Carbon Dioxide (22-30) mmol/L Anion Gap mmol/L BUN (7-17) mg/dL Creatinine (0.52-1.04) mg/dL Est GFR (CKD-EPI)AfAm (>60 ml/min/1.73 sqM) Est GFR (CKD-EPI)NonAf (>60 ml/min/1.73 sqM) Glucose (74-99) mg/dL POC Glucose (mg/dL) (75-99) mg/dL POC Glu Dyeing Machine Tender ID Plasma Lactic Acid David 1.3 (0.7-2.0) mmol/L Calcium (8.4-10.2) mg/dL Magnesium (1.6-2.3) mg/dL Total Bilirubin (0.2-1.3) mg/dL AST (14-36) U/L ALT (4-34) U/L Alkaline Phosphatase (38-126) U/L Creatine Kinase (30-135) U/L Troponin I 0.049 H* (0.000-0.034) ng/mL NT-Pro-B Natriuret Pep 20730 pg/mL Total Protein (6.3-8.2) g/dL Albumin (3.5-5.0) g/dL Urine Color Urine Appearance (Clear) Urine pH (5.0-8.0) Ur Specific [place] (1.001-1.035) Urine Protein (Negative) Urine Glucose (UA) (Negative) Urine Ketones (Negative) Urine Blood (Negative) Urine Nitrite (Negative) Urine Bilirubin (Negative) Urine Urobilinogen (<2.0) mg/dL Ur Leukocyte Esterase (Negative) Urine WBC (0-5) /hpf Ur Squamous Epith Cells (0-4) /hpf Urine Mucus (None) /hpf Coronavirus (PCR) (Not Detected) 03/27/20 03/27/20 03/27/20 Range/Units 18:49 18:57 20:15 WBC (3.8-10.6) k/uL RBC (3.80-5.40) m/uL Hgb (11.4-16.0) gm/dL Hct (34.0-46.0) % MCV (80.0-100.0) fL MCH (25.0-35.0) pg MCHC (31.0-37.0) g/dL RDW (11.5-15.5) % Plt Count (150-450) k/uL Neutrophils % (Manual) % Lymphocytes % (Manual) % Monocytes % (Manual) % Eosinophils % (Manual) % Neutrophils # (Manual) (1.3-7.7) k/uL Lymphocytes # (Manual) (1.0-4.8) k/uL Monocytes # (Manual) (0-1.0) k/uL Eosinophils # (Manual) (0-0.7) k/uL Nucleated RBCs (0-0) /100 WBC Manual Slide Review Hypochromasia Poikilocytosis (manual Anisocytosis (manual) PT (9.0-12.0) sec INR (<1.2) APTT (22.0-30.0) sec Sodium (137-145) mmol/L Potassium (3.5-5.1) mmol/L Chloride (98-107) mmol/L Carbon Dioxide (22-30) mmol/L Anion Gap mmol/L BUN (7-17) mg/dL Creatinine (0.52-1.04) mg/dL Est GFR (CKD-EPI)AfAm (>60 ml/min/1.73 sqM) Est GFR (CKD-EPI)NonAf (>60 ml/min/1.73 sqM) Glucose (74-99) mg/dL POC Glucose (mg/dL) 181 H (75-99) mg/dL POC Glu Dyeing Machine Tender Zulay Ornelas Plasma Lactic Acid David (0.7-2.0) mmol/L Calcium (8.4-10.2) mg/dL Magnesium (1.6-2.3) mg/dL Total Bilirubin (0.2-1.3) mg/dL AST (14-36) U/L ALT (4-34) U/L Alkaline Phosphatase (38-126) U/L Creatine Kinase (30-135) U/L Troponin I (0.000-0.034) ng/mL NT-Pro-B Natriuret Pep pg/mL Total Protein (6.3-8.2) g/dL Albumin (3.5-5.0) g/dL Urine Color Light Yellow Urine Appearance Clear (Clear) Urine pH 6.0 (5.0-8.0) Ur Specific [place] 1.011 (1.001-1.035) Urine Protein 2+ H (Negative) Urine Glucose (UA) Negative (Negative) Urine Ketones Negative (Negative) Urine Blood Negative (Negative) Urine Nitrite Negative (Negative) Urine Bilirubin Negative (Negative) Urine Urobilinogen <2.0 (<2.0) mg/dL Ur Leukocyte Esterase Negative (Negative) Urine WBC <1 (0-5) /hpf Ur Squamous Epith Cells <1 (0-4) /hpf Urine Mucus Rare H (None) /hpf Coronavirus (PCR) Not Detected (Not Detected) 03/27/20 03/27/20 03/28/20 Range/Units 20:50 23:44 05:44 WBC 5.6 (3.8-10.6) k/uL RBC 2.54 L (3.80-5.40) m/uL Hgb 7.4 L (11.4-16.0) gm/dL Hct 23.1 L (34.0-46.0) % MCV 90.9 (80.0-100.0) fL MCH 29.1 (25.0-35.0) pg MCHC 32.0 (31.0-37.0) g/dL RDW 14.6 (11.5-15.5) % Plt Count 141 L (150-450) k/uL Neutrophils % (Manual) 73 % Lymphocytes % (Manual) 18 % Monocytes % (Manual) 9 % Eosinophils % (Manual) % Neutrophils # (Manual) 4.09 (1.3-7.7) k/uL Lymphocytes # (Manual) 1.01 (1.0-4.8) k/uL Monocytes # (Manual) 0.50 (0-1.0) k/uL Eosinophils # (Manual) (0-0.7) k/uL Nucleated RBCs 0 (0-0) /100 WBC Manual Slide Review Performed Hypochromasia Slight Poikilocytosis (manual Present Anisocytosis (manual) Present PT (9.0-12.0) sec INR (<1.2) APTT (22.0-30.0) sec Sodium (137-145) mmol/L Potassium (3.5-5.1) mmol/L Chloride (98-107) mmol/L Carbon Dioxide (22-30) mmol/L Anion Gap mmol/L BUN (7-17) mg/dL Creatinine (0.52-1.04) mg/dL Est GFR (CKD-EPI)AfAm (>60 ml/min/1.73 sqM) Est GFR (CKD-EPI)NonAf (>60 ml/min/1.73 sqM) Glucose (74-99) mg/dL POC Glucose (mg/dL) (75-99) mg/dL POC Glu Dyeing Machine Tender ID Plasma Lactic Acid David (0.7-2.0) mmol/L Calcium (8.4-10.2) mg/dL Magnesium (1.6-2.3) mg/dL Total Bilirubin (0.2-1.3) mg/dL AST (14-36) U/L ALT (4-34) U/L Alkaline Phosphatase (38-126) U/L Creatine Kinase (30-135) U/L Troponin I 0.068 H* 0.083 H* (0.000-0.034) ng/mL NT-Pro-B Natriuret Pep pg/mL Total Protein (6.3-8.2) g/dL Albumin (3.5-5.0) g/dL Urine Color Urine Appearance (Clear) Urine pH (5.0-8.0) Ur Specific [place] (1.001-1.035) Urine Protein (Negative) Urine Glucose (UA) (Negative) Urine Ketones (Negative) Urine Blood (Negative) Urine Nitrite (Negative) Urine Bilirubin (Negative) Urine Urobilinogen (<2.0) mg/dL Ur Leukocyte Esterase (Negative) Urine WBC (0-5) /hpf Ur Squamous Epith Cells (0-4) /hpf Urine Mucus (None) /hpf Coronavirus (PCR) (Not Detected) 03/28/20 03/28/20 03/28/20 Range/Units 05:44 11:37 16:47 WBC (3.8-10.6) k/uL RBC (3.80-5.40) m/uL Hgb (11.4-16.0) gm/dL Hct (34.0-46.0) % MCV (80.0-100.0) fL MCH (25.0-35.0) pg MCHC (31.0-37.0) g/dL RDW (11.5-15.5) % Plt Count (150-450) k/uL Neutrophils % (Manual) % Lymphocytes % (Manual) % Monocytes % (Manual) % Eosinophils % (Manual) % Neutrophils # (Manual) (1.3-7.7) k/uL Lymphocytes # (Manual) (1.0-4.8) k/uL Monocytes # (Manual) (0-1.0) k/uL Eosinophils # (Manual) (0-0.7) k/uL Nucleated RBCs (0-0) /100 WBC Manual Slide Review Hypochromasia Poikilocytosis (manual Anisocytosis (manual) PT (9.0-12.0) sec INR (<1.2) APTT (22.0-30.0) sec Sodium 138 (137-145) mmol/L Potassium 4.6 (3.5-5.1) mmol/L Chloride 103 (98-107) mmol/L Carbon Dioxide 25 (22-30) mmol/L Anion Gap 10 mmol/L BUN 143 H* (7-17) mg/dL Creatinine 3.42 H (0.52-1.04) mg/dL Est GFR (CKD-EPI)AfAm 14 (>60 ml/min/1.73 sqM) Est GFR (CKD-EPI)NonAf 12 (>60 ml/min/1.73 sqM) Glucose 160 H (74-99) mg/dL POC Glucose (mg/dL) 234 H 171 H (75-99) mg/dL POC Glu Dyeing Machine Tender ID Claudia Perdue Donna Plasma Lactic Acid David (0.7-2.0) mmol/L Calcium 8.2 L (8.4-10.2) mg/dL Magnesium (1.6-2.3) mg/dL Total Bilirubin 0.4 (0.2-1.3) mg/dL AST 18 (14-36) U/L ALT 14 (4-34) U/L Alkaline Phosphatase 65 (38-126) U/L Creatine Kinase (30-135) U/L Troponin I (0.000-0.034) ng/mL NT-Pro-B Natriuret Pep pg/mL Total Protein 5.2 L (6.3-8.2) g/dL Albumin 2.9 L (3.5-5.0) g/dL Urine Color Urine Appearance (Clear) Urine pH (5.0-8.0) Ur Specific [place] (1.001-1.035) Urine Protein (Negative) Urine Glucose (UA) (Negative) Urine Ketones (Negative) Urine Blood (Negative) Urine Nitrite (Negative) Urine Bilirubin (Negative) Urine Urobilinogen (<2.0) mg/dL Ur Leukocyte Esterase (Negative) Urine WBC (0-5) /hpf Ur Squamous Epith Cells (0-4) /hpf Urine Mucus (None) /hpf Coronavirus (PCR) (Not Detected) 03/28/20 03/29/20 03/29/20 Range/Units 19:54 06:00 10:23 WBC (3.8-10.6) k/uL RBC (3.80-5.40) m/uL Hgb (11.4-16.0) gm/dL Hct (34.0-46.0) % MCV (80.0-100.0) fL MCH (25.0-35.0) pg MCHC (31.0-37.0) g/dL RDW (11.5-15.5) % Plt Count (150-450) k/uL Neutrophils % (Manual) % Lymphocytes % (Manual) % Monocytes % (Manual) % Eosinophils % (Manual) % Neutrophils # (Manual) (1.3-7.7) k/uL Lymphocytes # (Manual) (1.0-4.8) k/uL Monocytes # (Manual) (0-1.0) k/uL Eosinophils # (Manual) (0-0.7) k/uL Nucleated RBCs (0-0) /100 WBC Manual Slide Review Hypochromasia Poikilocytosis (manual Anisocytosis (manual) PT (9.0-12.0) sec INR (<1.2) APTT (22.0-30.0) sec Sodium 136 L (137-145) mmol/L Potassium 4.8 (3.5-5.1) mmol/L Chloride 106 (98-107) mmol/L Carbon Dioxide 23 (22-30) mmol/L Anion Gap 7 mmol/L BUN 128 H* (7-17) mg/dL Creatinine 3.02 H (0.52-1.04) mg/dL Est GFR (CKD-EPI)AfAm 16 (>60 ml/min/1.73 sqM) Est GFR (CKD-EPI)NonAf 14 (>60 ml/min/1.73 sqM) Glucose 220 H (74-99) mg/dL POC Glucose (mg/dL) 139 H 180 H (75-99) mg/dL POC Glu Dyeing Machine Tender MARIEL Charly Long Charly Plasma Lactic Acid David (0.7-2.0) mmol/L Calcium 8.3 L (8.4-10.2) mg/dL Magnesium (1.6-2.3) mg/dL Total Bilirubin (0.2-1.3) mg/dL AST (14-36) U/L ALT (4-34) U/L Alkaline Phosphatase (38-126) U/L Creatine Kinase (30-135) U/L Troponin I (0.000-0.034) ng/mL NT-Pro-B Natriuret Pep pg/mL Total Protein (6.3-8.2) g/dL Albumin (3.5-5.0) g/dL Urine Color Urine Appearance (Clear) Urine pH (5.0-8.0) Ur Specific [place] (1.001-1.035) Urine Protein (Negative) Urine Glucose (UA) (Negative) Urine Ketones (Negative) Urine Blood (Negative) Urine Nitrite (Negative) Urine Bilirubin (Negative) Urine Urobilinogen (<2.0) mg/dL Ur Leukocyte Esterase (Negative) Urine WBC (0-5) /hpf Ur Squamous Epith Cells (0-4) /hpf Urine Mucus (None) /hpf Coronavirus (PCR) (Not Detected) 03/29/20 03/29/20 Range/Units 11:33 16:49 WBC (3.8-10.6) k/uL RBC (3.80-5.40) m/uL Hgb (11.4-16.0) gm/dL Hct (34.0-46.0) % MCV (80.0-100.0) fL MCH (25.0-35.0) pg MCHC (31.0-37.0) g/dL RDW (11.5-15.5) % Plt Count (150-450) k/uL Neutrophils % (Manual) % Lymphocytes % (Manual) % Monocytes % (Manual) % Eosinophils % (Manual) % Neutrophils # (Manual) (1.3-7.7) k/uL Lymphocytes # (Manual) (1.0-4.8) k/uL Monocytes # (Manual) (0-1.0) k/uL Eosinophils # (Manual) (0-0.7) k/uL Nucleated RBCs (0-0) /100 WBC Manual Slide Review Hypochromasia Poikilocytosis (manual Anisocytosis (manual) PT (9.0-12.0) sec INR (<1.2) APTT (22.0-30.0) sec Sodium (137-145) mmol/L Potassium (3.5-5.1) mmol/L Chloride (98-107) mmol/L Carbon Dioxide (22-30) mmol/L Anion Gap mmol/L BUN (7-17) mg/dL Creatinine (0.52-1.04) mg/dL Est GFR (CKD-EPI)AfAm (>60 ml/min/1.73 sqM) Est GFR (CKD-EPI)NonAf (>60 ml/min/1.73 sqM) Glucose (74-99) mg/dL POC Glucose (mg/dL) 214 H 214 H (75-99) mg/dL POC Glu Dyeing Machine Tender ID Head, [place], [place] Plasma Lactic Acid David (0.7-2.0) mmol/L Calcium (8.4-10.2) mg/dL Magnesium (1.6-2.3) mg/dL Total Bilirubin (0.2-1.3) mg/dL AST (14-36) U/L ALT (4-34) U/L Alkaline Phosphatase (38-126) U/L Creatine Kinase (30-135) U/L Troponin I (0.000-0.034) ng/mL NT-Pro-B Natriuret Pep pg/mL Total Protein (6.3-8.2) g/dL Albumin (3.5-5.0) g/dL Urine Color Urine Appearance (Clear) Urine pH (5.0-8.0) Ur Specific [place] (1.001-1.035) Urine Protein (Negative) Urine Glucose (UA) (Negative) Urine Ketones (Negative) Urine Blood (Negative) Urine Nitrite (Negative) Urine Bilirubin (Negative) Urine Urobilinogen (<2.0) mg/dL Ur Leukocyte Esterase (Negative) Urine WBC (0-5) /hpf Ur Squamous Epith Cells (0-4) /hpf Urine Mucus (None) /hpf Coronavirus (PCR) (Not Detected) Disposition Clinical Impression: Acute renal failure Disposition: ADMITTED IP TO [facility] Condition: Stable Is patient prescribed a controlled substance at d/c from ED?: No Decision to Admit Reason: Admit from EC Decision Date: 03/27/20 Decision Time: 18:03
[2020-03-27 17:13] LABS: Albumin 3.3 g/dL (3.5-5.0); Calcium 8.5 mg/dL (8.4-10.2); Magnesium 2.9 mg/dL (1.6-2.3); Total Bilirubin 0.3 mg/dL (0.2-1.3); Total Protein 5.7 g/dL (6.3-8.2)
[2020-03-27 17:14] LABS: Partial Thromboplastin Time 22.4 sec (22.0-30.0); Prothrombin Time 10.2 sec (9.0-12.0)
[2020-03-27 17:19] LABS: HGB 8.2 gm/dL (11.4-16.0); Hypochromasia Slight; MCH 29.2 pg (25.0-35.0); MCHC 32.7 g/dL (31.0-37.0); MCV 89.4 fL (80.0-100.0); Mean Platelet Volume 9.3; Platelet Count 152 k/uL (150-450); RDW 14.3 % (11.5-15.5); WBC 6.6 k/uL (3.8-10.6)
[2020-03-27 17:36] LABS: Eosinophils # (M) 0.26 k/uL (0-0.7); Lymphocytes # (M) 1.52 k/uL (1.0-4.8); Monocytes # (M) 0.53 k/uL (0-1.0); Neutrophils # (M) 4.29 k/uL (1.3-7.7); Neutrophils % (M) 65 %; Nucleated Red Blood Cells 0 /100 WBC (0-0); Total Cells Counted 100
--- NOTE | 2020-03-27 17:51 | XR ---
EXAMINATION TYPE: XR chest 2V DATE OF EXAM: 03/27/2020 COMPARISON: 07/17/2020 HISTORY: Short of breath TECHNIQUE: 2 views FINDINGS: Heart is borderline enlarged. There is no pulmonary consolidation. There is some coarsening of the interstitial markings. There are sternal wires. There is left axillary pacemaker. There are n o hilar masses. Thoracic aorta is atheromatous. There is slight blunting of the posterior costophreni c angles. IMPRESSION: Small pleural effusions are improved compared to last exam. No obvious heart failure seen . Pulmonary avascularity improved compared to old exam.
[2020-03-27] MEDS ORDERED: NALOXONE 0.4 MG/ML 1 ML VIAL IV PRN (18:03)
[2020-03-27] MEDS: SODIUM CHLORIDE 0.9% 1,000 ML IV SCH (18:49)
[2020-03-27 19:15] LABS: Appearance,Urine Clear (Clear); Bilirubin,Urine Negative (Negative); Blood,Urine Negative (Negative); Color,Urine Light Yellow; Glucose,Urine (UA) Negative (Negative); Ketones,Urine Negative (Negative); Leukocyte Esterase,Urine Negative (Negative); Mucus,Urine Rare /hpf; Nitrite,Urine Negative (Negative); Protein,Urine 2+ (Negative); Specific Gravity,Urine 1.011 (1.001-1.035); Squamous Epithelial Cell,Urine <1 /hpf (0-4); Urobilinogen,Urine <2.0 mg/dL (<2.0); WBC,Urine <1 /hpf (0-5)
[2020-03-27] MEDS ORDERED: guaiFENesin-Coden 100-10MG/5ML 10 ML CUP PO PRN (19:56)
[2020-03-27 20:16] LABS: Glucose,Whole Blood 181 mg/dL (75-99)
[2020-03-27] MEDS ORDERED: TEMAZEPAM 30 MG CAP PO SCH (21:00)
[2020-03-27] MEDS: hydrALAZINE HCL 50 MG TAB PO SCH (21:03)
[2020-03-27] MEDS: ATORVASTATIN 10 MG TAB PO SCH (21:03)
[2020-03-27] MEDS: INSULIN DETEMIR (LEVEMIR) 100 UNIT/ML SYR SQ SCH (21:04)
[2020-03-27] MEDS: NICOTINE 14MG/24HR PATCH TRANSDERM SCH (21:04)
[2020-03-28] MEDS: TEMAZEPAM 15 MG CAP PO SCH (00:53)
[2020-03-28 06:44] LABS: HCT 23.1 % (34.0-46.0); HGB 7.4 gm/dL (11.4-16.0); Hypochromasia Slight; MCH 29.1 pg (25.0-35.0); MCV 90.9 fL (80.0-100.0); Mean Platelet Volume 9.1; Platelet Count 141 k/uL (150-450); RBC 2.54 m/uL (3.80-5.40); RDW 14.6 % (11.5-15.5); WBC 5.6 k/uL (3.8-10.6)
[2020-03-28 06:50] LABS: Albumin 2.9 g/dL (3.5-5.0); Calcium 8.2 mg/dL (8.4-10.2); Potassium 4.6 mmol/L (3.5-5.1); Total Bilirubin 0.4 mg/dL (0.2-1.3); Total Protein 5.2 g/dL (6.3-8.2)
[2020-03-28] MEDS: INSULIN ASPART (NovoLOG) 100 UNIT/ML VIAL SQ SCH ×3 (07:36→17:16)
[2020-03-28] MEDS: amLODIPine 2.5 MG TAB PO SCH (08:05)
[2020-03-28] MEDS: hydrALAZINE HCL 50 MG TAB PO SCH ×3 (08:05→21:12)
[2020-03-28] MEDS: carvediloL 12.5 MG TAB PO SCH ×2 (08:05→16:03)
[2020-03-28] MEDS: ISOSORBIDE MONONITRATE ER 30 MG TAB.ER.24H PO SCH (08:05)
[2020-03-28] MEDS: CLOPIDOGREL 75 MG TAB PO SCH (08:06)
[2020-03-28] MEDS: ASPIRIN 81 MG PO SCH (08:06)
[2020-03-28] MEDS ORDERED: BUMETANIDE 1 MG TAB PO SCH (09:00)
[2020-03-28] MEDS ORDERED: metOLazone 5 MG TAB PO SCH (09:00)
[2020-03-28] MEDS ORDERED: LOSARTAN 50 MG TAB PO SCH (09:00)
[2020-03-28 10:09] LABS: Anisocytosis (M) Present; Lymphocytes # (M) 1.01 k/uL (1.0-4.8); Neutrophils # (M) 4.09 k/uL (1.3-7.7); Neutrophils % (M) 73 %; Nucleated Red Blood Cells 0 /100 WBC (0-0); Poikilocytosis (M) Present; Total Cells Counted 100
[2020-03-28 12:09] LABS: Glucose,Whole Blood 234 mg/dL (75-99)
--- NOTE | 2020-03-28 14:30 | CONS ---
CONSULTATION REASON FOR CONSULT: Renal failure. HISTORY OF PRESENT ILLNESS: Patient is an 80-year-old female with history of chronic kidney disease, NKF stage IV and diastolic heart failure. The patient was recently discharged from the hospital after admission for congestive heart failure exacerbation. She was diuresed and discharged to rehab facility. The patient states that her shortness of breath has improved. She was able to participate in therapy. However, she was referred back to the hospital as her renal function had deteriorated. On this admission, patient appears to be mildly dehydrated. She has been started on IV fluids and diuretics are on hold. The patient states she has had good appetite. She denies any nausea and vomiting. On previous admissions, we have discussed renal replacement therapy, which will be started if she continues to have repeated hospitalizations for volume overload. On this admission, however, patient was volume depleted. Currently maintained on IV fluids. Her serum creatinine has improved to 3.42 from 3.8 yesterday. Baseline creatinine appears to be around 2.3-2.6 mg/dL. No history of fever, chills, nausea, vomiting, chest pains or shortness of breath or cough. PAST MEDICAL HISTORY: Diastolic heart failure, CKD stage 4, cardiomyopathy, obstructive sleep apnea, type 2 diabetes, hypothyroidism, COPD, coronary artery disease with history of coronary artery bypass surgery, obstructive sleep apnea, hyperlipidemia. PAST SURGICAL HISTORY: Appendectomy, back surgery, bariatric surgery, coronary artery bypass surgery, hysterectomy, pacemaker placement, cardiac catheterization, cataract surgery, arthroscopy of the knee, partial thyroidectomy and pacemaker placement. SOCIAL HISTORY: Negative for smoking, drug abuse or alcohol abuse. MEDICATIONS: Medications prior to admission included Zocor, losartan, hydralazine, aspirin, Bumex, Coreg, Plavix, insulin, metolazone, Restoril, Norvasc. ALLERGIES: Include SULFA and BACTRIM. REVIEW OF SYSTEMS: As per HPI. Other systems negative. PHYSICAL EXAMINATION: Patient is comfortable, awake, alert, oriented x3, not in any acute distress. Blood pressure is 149/68, heart rate 65 per minute. She is afebrile. Examination of the heart S1, S2. Examination of the lungs, bilateral breath sounds are heard. Abdomen: Soft, nontender, obese. Exam of lower extremities shows much decreased edema. DINING ROOM BUSSER exam is grossly intact. LABS SHOW: Hemoglobin 7.4 g/dL, white cell count 5.6, sodium 138, potassium 4.6, BUN 143, serum creatinine 3.42. ASSESSMENT: 1. Acute kidney injury, prerenal, currently improved with IV hydration. Hold off on the diuretics for now. The patient is maintained on Cozaar which I will decrease to 50 mg daily. We need to be cautious with dehydration given her history of diastolic heart failure. 2. Chronic kidney disease stage IV. Baseline creatinine 2.3-2.7 mg/dL secondary to nephrosclerosis. 3. Diastolic heart failure EF about 50 to 55% on previous echocardiogram. 4. Chronic obstructive pulmonary disease. 5. Obstructive sleep apnea. 6. Anemia of chronic disease. The patient will be maintained on erythrocyte stimulating agents in the form of Aranesp. I believe her iron profile was checked on the last admission and she did receive IV iron for iron sat of 5.4. PLAN: Hold diuretics and DC IV fluids later on tonight. Decrease Cozaar. Patient is advised at this time she does not need renal replacement therapy since her volume status has improved and renal function has improved with gentle IV hydration. Hopefully, she can be discharged by tomorrow and follow up as outpatient. Thank you for this consultation. We will continue to follow the patient with you during her hospitalization. MMODL / IJN: [id number] /
[2020-03-28] MEDS: SODIUM CHLORIDE 0.9% 1,000 ML IV SCH (16:03)
[2020-03-28 16:53] LABS: Glucose,Whole Blood 171 mg/dL (75-99)
--- NOTE | 2020-03-28 17:42 | P.HPIM ---
History of Present Illness H&P Date: 03/28/20 Elza Avery, is an 80-year-old female with known history of chronic kidney disease stage IV who was recently admitted to [facility] due to acute diastolic congestive heart failure exacerbation, she was [facility] 10 was transferred to [facility] on the [facility] for rehabilitation, patient did well in regard to her shortness of breath which has improved significantly, she is still having lower extremity edema, however kidney function worsened during her stay at [facility] on the [place], her last creatinine at [facility] was 4.5, a telemedicine visit was done with Dr. Roland trackmobile operator who advised that patient should be transferred to the hospital. Patient was seen and examined on the medical floor she is alert and oriented 3 in no apparent distress she is complaining of bilateral lower extremity edema, there is no shortness of breath at rest but she has some shortness of breath with activity otherwise she denies any complaints there is no fever or chills no headache or dizziness no chest pain no cough no nausea or vomiting no abdominal pain no diarrhea no burning was urination no frequency or urgency and no hematuria. Past Medical History Past Medical History: Diabetes Mellitus, Hypertension, Musculoskeletal Disorder, Sleep Apnea/CPAP/BIPAP, Thyroid Disorder Additional Past Medical History / Comment(s): COPD, CHF with diastolic heart failure, hypertension, chronic kidney disease stage III, coronary artery disease with previous bypass surgery, history of pacemaker insertion 2014, diabetes daniele itus, hypertension, obstructive sleep apnea, thyroid nodules, hyperlipidemia, history of smoking in the order of [id number] History of Any Multi-Drug Resistant Organisms: ESBL Date of last positivie culture/infection: 10/18/19 MDRO Source:: ESBL URINE Past Surgical History: Appendectomy, Back Surgery, Bariatric Surgery, Coronary Bypass/CABG, Heart Catheterization, Hysterectomy, Pacemaker Additional Past Surgical History / Comment(s): LAP BAND, CATARACT LEFT EYE, NEUROMA ON FOOT, KNEE ARTHROSCOPY, PACEMAKER ([employer] 04/18/2015) Partial thyroidectomy 1999 Past Anesthesia/Blood Transfusion Reactions: No Reported Reaction Type of Cardiac Device: Permanent Pacemaker Device Placement Date:: 04/18/2015 [employer] Past Psychological History: No Psychological Hx Reported Past Alcohol Use History: Occasional Past Drug Use History: None Reported - Past Family History Son(s) Family Medical History: Cancer Additional Family Medical History / Comment(s): MELANOMA Brother(s) Family Medical History: Cancer Father History Unknown: Yes Family Medical History: Cancer Mother Family Medical History: Coronary Artery Disease (CAD) Medications and Allergies Home Medications Medication Instructions Recorded Confirmed Type Simvastatin [Zocor] 5 mg PO HS@209911/29/17 03/27/20 History Losartan Potassium 100 mg PO DAILY@89902/13/20 03/27/20 History Insulin Lispro [humaLOG Kwikpen] 10 unit SQ AC-TID 02/14/20 03/27/20 History Aspirin EC [Ecotrin Low Dose] 81 mg PO DAILY@89903/09/20 03/27/20 History hydrALAZINE HCL [Apresoline] 100 mg PO TID@0900,1600,0 03/09/20 03/27/20 History guaiFENesin-Coden 100-10MG/5ML 10 ml PO Q6H PRN ml 03/17/20 03/27/20 Rx [Robitussin AC] Bumetanide [BUMEX] 2 mg PO BID@0900,169903/27/20 03/27/20 History Carvedilol [Coreg*] 12.5 mg PO BID@0900,169903/27/20 03/27/20 History Clopidogrel [Plavix] 75 mg PO DAILY@89903/27/20 03/27/20 History Insulin Glargine,Hum.rec.anlog 20 unit SQ HS@209903/27/20 03/27/20 History [Basaglar Kwikpen U-100] Insulin Lispro [humaLOG Kwikpen] See Protocol SQ ACHS 03/27/20 03/27/20 History Isosorbide Mononitrate ER [Imdur] 30 mg PO DAILY@89903/27/20 03/27/20 History Metolazone [Zaroxolyn] 10 mg PO DAILY@89903/27/20 03/27/20 History Nicotine 14Mg/24Hr Patch [Habitrol 1 patch TRANSDERM HS@209903/27/20 03/27/20 History 14Mg/24Hr Patch] Temazepam [Restoril] 30 mg PO HS@209903/27/20 03/27/20 History amLODIPine [Norvasc] 2.5 mg PO DAILY@0900 03/27/20 03/27/20 History Allergies Allergy/AdvReac Type Severity Reaction Status Date / Time Sulfa (Sulfonamide Allergy Unknown Verified 03/27/20 17:26 Antibiotics) sulfamethoxazole Allergy Unknown Verified 03/27/20 17:26 [From Bactrim] trimethoprim [From Bactrim] Allergy Unknown Verified 03/27/20 17:26 Physical Exam Vitals: Vital Signs Temp Pulse Pulse Resp BP BP Pulse Ox 03/28/20 08:00 98.2 F 65 18 149/68 93 L 03/28/20 03:54 98.1 F 61 16 125/54 93 L 03/28/20 00:00 97.7 F 64 18 147/56 95 03/27/20 20:00 97.7 F 62 18 138/67 94 L 03/27/20 19:10 98.3 F 68 18 154/90 94 L 03/27/20 19:09 68 18 154/90 94 L 03/27/20 16:44 68 18 139/61 97 03/27/20 16:01 98.3 F 66 16 142/56 99 Intake and Output 03/27/20 03/28/20 03/28/20 22:59 06:59 14:59 Intake Total 700 240 Balance 700 240 Intake: Intake, IV Titration 400 Amount Sodium Chloride 0.9% 1, 400 000 ml @ 50 mls/hr IV . Q20H [facility] Rx#:[id number] Oral 300 240 Other: Voiding Method Bedside Commode Bedside Commode Bedside Commode # Voids 1 1 Weight 99.79 kg In general patient is alert and oriented 3 in no apparent distress HEENT head normocephalic and atraumatic Neck is supple no JVD no goiter no lymphadenopathy Chest exam reveals a few scattered rhonchi no wheezing Cardiac exam reveals regular heart sounds S1 and S2 no gallops no murmurs Abdomen is soft nontender no organomegaly with normal bowel sounds Extremity exam reveals 2+ edema no cyanosis or clubbing Neurological examination reveals no gross focal deficits Results CBC & Chem 7: 03/28/20 05:44 03/28/20 05:44 Labs: Abnormal Lab Results - Last 24 Hours (Table) 03/27/20 03/27/20 03/27/20 Range/Units 16:57 16:57 16:57 RBC 2.80 L (3.80-5.40) m/uL Hgb 8.2 L (11.4-16.0) gm/dL Hct 25.0 L (34.0-46.0) % Plt Count (150-450) k/uL Sodium 135 L (137-145) mmol/L BUN 148 H* (7-17) mg/dL Creatinine 3.82 H (0.52-1.04) mg/dL Glucose 167 H (74-99) mg/dL POC Glucose (mg/dL) (75-99) mg/dL Calcium (8.4-10.2) mg/dL Magnesium 2.9 H (1.6-2.3) mg/dL Troponin I 0.049 H* (0.000-0.034) ng/mL Total Protein 5.7 L (6.3-8.2) g/dL Albumin 3.3 L (3.5-5.0) g/dL Urine Protein (Negative) Urine Mucus (None) /hpf 03/27/20 03/27/20 03/27/20 Range/Units 18:57 20:15 20:50 RBC (3.80-5.40) m/uL Hgb (11.4-16.0) gm/dL Hct (34.0-46.0) % Plt Count (150-450) k/uL Sodium (137-145) mmol/L BUN (7-17) mg/dL Creatinine (0.52-1.04) mg/dL Glucose (74-99) mg/dL POC Glucose (mg/dL) 181 H (75-99) mg/dL Calcium (8.4-10.2) mg/dL Magnesium (1.6-2.3) mg/dL Troponin I 0.068 H* (0.000-0.034) ng/mL Total Protein (6.3-8.2) g/dL Albumin (3.5-5.0) g/dL Urine Protein 2+ H (Negative) Urine Mucus Rare H (None) /hpf 03/27/20 03/28/20 03/28/20 Range/Units 23:44 05:44 05:44 RBC 2.54 L (3.80-5.40) m/uL Hgb 7.4 L (11.4-16.0) gm/dL Hct 23.1 L (34.0-46.0) % Plt Count 141 L (150-450) k/uL Sodium (137-145) mmol/L BUN 143 H* (7-17) mg/dL Creatinine 3.42 H (0.52-1.04) mg/dL Glucose 160 H (74-99) mg/dL POC Glucose (mg/dL) (75-99) mg/dL Calcium 8.2 L (8.4-10.2) mg/dL Magnesium (1.6-2.3) mg/dL Troponin I 0.083 H* (0.000-0.034) ng/mL Total Protein 5.2 L (6.3-8.2) g/dL Albumin 2.9 L (3.5-5.0) g/dL Urine Protein (Negative) Urine Mucus (None) /hpf Thrombosis Risk Factor Assmnt - Choose All That Apply Any of the Below Risk Factors Present?: Yes Each Factor Represents 1 point: Heart failure (<1month), Obesity (BMI >25) Other Risk Factors: Yes Each Risk Factor Represents 3 Points: Age 75 years or older Thrombosis Risk Factor Assessment Total Risk Factor Score: 5 Thrombosis Risk Factor Assessment Level: High Risk Assessment and Plan Plan: 1. Acute kidney failure 2. Chronic kidney disease stage IV 3. Chronic diastolic congestive heart failure, last echo done in November 2019 revealed ejection fraction of 50-55% 4. Underlying history of hypertension 5. Underlying history of anemia 6. Underlying history of hyperlipidemia maintained on Lipitor 7. Right foot pain and swelling, possible cellulitis with abscess patient was started on IV Ancef and infectious disease consultation was requested 8. Elevated troponin levels cardiology consultation was requested 9. Underlying history of insulin-dependent diabetes Shaun's At this time patient is clinically stable Medications reviewed and reordered Awaiting input from nephrology and cardiology and infectious disease
[2020-03-28 19:55] LABS: Glucose,Whole Blood 139 mg/dL (75-99)
[2020-03-28] MEDS: ATORVASTATIN 10 MG TAB PO SCH (21:11)
[2020-03-28] MEDS: INSULIN DETEMIR (LEVEMIR) 100 UNIT/ML SYR SQ SCH (21:12)
[2020-03-28] MEDS: NICOTINE 14MG/24HR PATCH TRANSDERM SCH (21:13)
[2020-03-29] MEDS: TEMAZEPAM 15 MG CAP PO SCH (00:09)
[2020-03-29 06:02] LABS: Glucose,Whole Blood 180 mg/dL (75-99)
--- NOTE | 2020-03-29 07:34 | P.CONS ---
History of Present Illness - Reason for Consult Consult date: 03/28/20 Right foot cellulitis Requesting physician: Lona Arias - Chief Complaint Pain and swelling to the right foot x few days - History of Present Illness Patient is 80-year-old female who was recently admitted at this facility and was treated for congestive heart failure patient subsequently was transferred to [facility] on the [facility] for rehabilitation while at the [facility] and the patient was noticed to have worsening of her kidney function patient did have a tele visit with her timber robber will advise the patient to go to the ER for worsening of her kidney function. The patient currently denies having any fever or any chills; no swelling in her both lower extremity and also complaining of swelling and some discoloration and pain on the dorsum aspect of the right foot that she has noticed about 2 days ago she denies having any history of any trauma to been complaining of pain to the right foot more of a dull aching pain 4-5 out of 10 and no radiation patient did have swelling minimal redness and a bruise currently with no open wound or any drainage on arrival to the ER the patient has been afebrile and did have a normal white count she was started on cefazolin and infectious disease was consulted for the management of antibiotic therapy Review of Systems Positive point has been mentioned in the HPI rest of the systems are negative Past Medical History Past Medical History: Diabetes Mellitus, Hypertension, Musculoskeletal Disorder, Sleep Apnea/CPAP/BIPAP, Thyroid Disorder Additional Past Medical History / Comment(s): COPD, CHF with diastolic heart failure, hypertension, chronic kidney disease stage III, coronary artery disease with previous bypass surgery, history of pacemaker insertion 2014, diabetes mellitus, hypertension, obstructive sleep apnea, thyroid nodules, hyperlipidemia, history of smoking in the order of [id number] History of Any Multi-Drug Resistant Organisms: ESBL Year Discovered:: 10/18/19 MDRO Source:: ESBL URINE Past Surgical History: Appendectomy, Back Surgery, Bariatric Surgery, Coronary Bypass/CABG, Heart Catheterization, Hysterectomy, Pacemaker Additional Past Surgical History / Comment(s): LAP BAND, CATARACT LEFT EYE, NEUROMA ON FOOT, KNEE ARTHROSCOPY, PACEMAKER ([employer] 04/18/2015) Partial thyroidectomy 2000 Past Anesthesia/Blood Transfusion Reactions: No Reported Reaction Type of Cardiac Device: Permanent Pacemaker Device Placement Date:: 04/18/2015 [employer] Past Psychological History: No Psychological Hx Reported Past Alcohol Use History: Occasional Past Drug Use History: None Reported - Past Family History Son(s) Family Medical History: Cancer Additional Family Medical History / Comment(s): MELANOMA Brother(s) Family Medical History: Cancer Father History Unknown: Yes Family Medical History: Cancer Mother Family Medical History: Coronary Artery Disease (CAD) Medications and Allergies Home Medications Medication Instructions Recorded Confirmed Type Simvastatin [Zocor] 5 mg PO HS@209911/29/17 03/27/20 History Losartan Potassium 100 mg PO DAILY@89902/13/20 03/27/20 History Insulin Lispro [humaLOG Kwikpen] 10 unit SQ AC-TID 02/14/20 03/27/20 History Aspirin EC [Ecotrin Low Dose] 81 mg PO DAILY@89903/09/20 03/27/20 History hydrALAZINE HCL [Apresoline] 100 mg PO TID@0900,1600,2200 03/09/20 03/27/20 History guaiFENesin-Coden 100-10MG/5ML 10 ml PO Q6H PRN ml 03/17/20 03/27/20 Rx [Robitussin AC] Bumetanide [BUMEX] 2 mg PO BID@0900,1700 03/27/20 03/27/20 History Clopidogrel [Plavix] 75 mg PO DAILY@89903/27/20 03/27/20 History Insulin Glargine,Hum.rec.anlog 20 unit SQ HS@209903/27/20 03/27/20 History [Basaglar Kwikpen U-100] Insulin Lispro [humaLOG Kwikpen] See Protocol SQ ACHS 03/27/20 03/27/20 History Isosorbide Mononitrate ER [Imdur] 30 mg PO DAILY@89903/27/20 03/27/20 History Nicotine 14Mg/24Hr Patch [Habitrol 1 patch TRANSDERM HS@209903/27/20 03/27/20 History 14Mg/24Hr Patch] Temazepam [Restoril] 30 mg PO HS@209903/27/20 03/27/20 History amLODIPine [Norvasc] 2.5 mg PO DAILY@89903/27/20 03/27/20 History carvediloL [Coreg*] 12.5 mg PO BID@0900,1700 03/27/20 03/27/20 History metOLazone [Zaroxolyn] 10 mg PO DAILY@0900 03/27/20 03/27/20 History Allergies Allergy/AdvReac Type Severity Reaction Status Date / Time Sulfa (Sulfonamide Allergy Unknown Verified 03/27/20 17:26 Antibiotics) sulfamethoxazole Allergy Unknown Verified 03/27/20 17:26 [From Bactrim] trimethoprim [From Bactrim] Allergy Unknown Verified 03/27/20 17:26 Physical Exam Vitals: Vital Signs Temp Pulse Pulse Resp BP BP Pulse Ox 03/28/20 12:00 97.8 F 92 16 152/67 94 L 03/28/20 08:00 98.2 F 65 18 149/68 93 L 03/28/20 03:54 98.1 F 61 16 125/54 93 L 03/28/20 00:00 97.7 F 64 18 147/56 95 03/27/20 20:00 97.7 F 62 18 138/67 94 L 03/27/20 19:10 98.3 F 68 18 154/90 94 L 03/27/20 19:09 68 18 154/90 94 L 03/27/20 16:44 68 18 139/61 97 03/27/20 16:01 98.3 F 66 16 142/56 99 Intake and Output 03/27/20 03/28/20 03/28/20 22:59 06:59 14:59 Intake Total 700 480 Balance 700 480 Intake: Intake, IV Titration 400 Amount Sodium Chloride 0.9% 1, 400 000 ml @ 50 mls/hr IV . Q20H [facility] Rx#:[id number] Oral 300 480 Other: Voiding Method Bedside Commode Bedside Commode Bedside Commode # Voids 1 1 1 Weight 99.79 kg GENERAL DESCRIPTION: An elderly female lying in bed, no distress. No tachypnea or accessory muscle of respiration use. HEENT: Shows Pallor , no scleral icterus. Oral mucous membrane is dry. No pharyngeal erythema or thrush NECK: Trachea central, no thyromegaly. LUNGS: Unlabored breathing. Clear to auscultation anteriorly. No wheeze or crackle. HEART: S1, S2, regular rate and rhythm. No loud murmur ABDOMEN: Soft, no tenderness , guarding or rigidity, no organomegaly EXTREMITIES: 2+ edema feet this patient did have a swelling minimal redness and bruise to the right foot dorsum SKIN: No rash, no masses palpable. NEUROLOGICAL: The patient is awake, alert, oriented x3, mood and affect normal. Results CBC & Chem 7: 03/28/20 05:44 03/28/20 05:44 Labs: Abnormal Lab Results - Last 24 Hours (Table) 03/27/20 03/27/20 03/27/20 Range/Units 16:57 16:57 16:57 RBC 2.80 L (3.80-5.40) m/uL Hgb 8.2 L (11.4-16.0) gm/dL Hct 25.0 L (34.0-46.0) % Plt Count (150-450) k/uL Sodium 135 L (137-145) mmol/L BUN 148 H* (7-17) mg/dL Creatinine 3.82 H (0.52-1.04) mg/dL Glucose 167 H (74-99) mg/dL POC Glucose (mg/dL) (75-99) mg/dL Calcium (8.4-10.2) mg/dL Magnesium 2.9 H (1.6-2.3) mg/dL Troponin I 0.049 H* (0.000-0.034) ng/mL Total Protein 5.7 L (6.3-8.2) g/dL Albumin 3.3 L (3.5-5.0) g/dL Urine Protein (Negative) Urine Mucus (None) /hpf 03/27/20 03/27/20 03/27/20 Range/Units 18:57 20:15 20:50 RBC (3.80-5.40) m/uL Hgb (11.4-16.0) gm/dL Hct (34.0-46.0) % Plt Count (150-450) k/uL Sodium (137-145) mmol/L BUN (7-17) mg/dL Creatinine (0.52-1.04) mg/dL Glucose (74-99) mg/dL POC Glucose (mg/dL) 181 H (75-99) mg/dL Calcium (8.4-10.2) mg/dL Magnesium (1.6-2.3) mg/dL Troponin I 0.068 H* (0.000-0.034) ng/mL Total Protein (6.3-8.2) g/dL Albumin (3.5-5.0) g/dL Urine Protein 2+ H (Negative) Urine Mucus Rare H (None) /hpf 03/27/20 03/28/20 03/28/20 Range/Units 23:44 05:44 05:44 RBC 2.54 L (3.80-5.40) m/uL Hgb 7.4 L (11.4-16.0) gm/dL Hct 23.1 L (34.0-46.0) % Plt Count 141 L (150-450) k/uL Sodium (137-145) mmol/L BUN 143 H* (7-17) mg/dL Creatinine 3.42 H (0.52-1.04) mg/dL Glucose 160 H (74-99) mg/dL POC Glucose (mg/dL) (75-99) mg/dL Calcium 8.2 L (8.4-10.2) mg/dL Magnesium (1.6-2.3) mg/dL Troponin I 0.083 H* (0.000-0.034) ng/mL Total Protein 5.2 L (6.3-8.2) g/dL Albumin 2.9 L (3.5-5.0) g/dL Urine Protein (Negative) Urine Mucus (None) /hpf 03/28/20 Range/Units 11:37 RBC (3.80-5.40) m/uL Hgb (11.4-16.0) gm/dL Hct (34.0-46.0) % Plt Count (150-450) k/uL Sodium (137-145) mmol/L BUN (7-17) mg/dL Creatinine (0.52-1.04) mg/dL Glucose (74-99) mg/dL POC Glucose (mg/dL) 234 H (75-99) mg/dL Calcium (8.4-10.2) mg/dL Magnesium (1.6-2.3) mg/dL Troponin I (0.000-0.034) ng/mL Total Protein (6.3-8.2) g/dL Albumin (3.5-5.0) g/dL Urine Protein (Negative) Urine Mucus (None) /hpf Assessment and Plan Assessment: 1- patient with right foot pain and swelling in this patient who did have a component of a bruising on the dorsum aspect of the right foot is minimally tender and slightly warm to touch with a question of possible hematoma underlying cellulitis less likely but not entirely excluded 2- patient with sulfa ALLERGY that would limit the number of antibiotic safety use (1) Cellulitis of right foot Current Visit: Yes Status: Acute Code(s): L03.115 - CELLULITIS OF RIGHT LOWER LIMB SNOMED Code(s): 552999652 (2) Allergy to sulfa drugs Current Visit: Yes Status: Acute Code(s): Z88.2 - ALLERGY STATUS TO SULFONAMIDES STATUS SNOMED Code(s): 49192561 Plan: 1- marked the area there and his right foot 2- Yao wrap to both the from August the toe to below the knee 3- cefazolin dose adjusted to 2 g every 12hr dosing adjusted to the kidney function 4- we'll obtain x-rays of the right foot We will follow on clinical condition and cultures to further adjust medication if needed Thank you for this consultation will follow this patient with you Time with Patient: Greater than 30
[2020-03-29] MEDS: INSULIN ASPART (NovoLOG) 100 UNIT/ML VIAL SQ SCH ×3 (07:51→16:58)
[2020-03-29] MEDS: hydrALAZINE HCL 50 MG TAB PO SCH ×3 (09:06→21:38)
[2020-03-29] MEDS: CLOPIDOGREL 75 MG TAB PO SCH (09:06)
[2020-03-29] MEDS: carvediloL 12.5 MG TAB PO SCH ×2 (09:06→16:58)
[2020-03-29] MEDS: ISOSORBIDE MONONITRATE ER 30 MG TAB.ER.24H PO SCH (09:06)
[2020-03-29] MEDS: ASPIRIN 81 MG PO SCH (09:06)
[2020-03-29] MEDS: amLODIPine 2.5 MG TAB PO SCH ×2 (09:06→21:39)
[2020-03-29] MEDS: LOSARTAN 50 MG TAB PO SCH (09:06)
--- NOTE | 2020-03-29 09:34 | XR ---
EXAMINATION TYPE: XR foot complete RT DATE OF EXAM: 03/29/2020 CLINICAL HISTORY: Pain and swelling in right foot TECHNIQUE: Frontal, lateral, and oblique images of the right foot are obtained. Oblique images demons trate artifact with nonvisualization of the distal second through third toes. COMPARISON: Foot radiograph 03/28/2014 FINDINGS: There is no acute fracture/dislocation evident in the right foot. There is soft tissue swe lling of the volar foot over the level of the metatarsals. There is decreased osseous mineralization. There are degenerative changes of the midfoot. Deformity of the fifth metatarsal head unchanged rede monstrated from 2013 comparison, with pencil in cup deformity. No definitive osseous erosion or perio steal reaction. There appears to be postoperative changes of the calcaneus with removal of previously demonstrated plantar spur. The joint spaces of the toes are limited in evaluation due to flexion. Va scular calcifications. IMPRESSION: 1. Soft tissue swelling of the volar foot at the level of the metatarsals. 2. No evidence of acute osseous abnormality. Somewhat limited evaluation of the distal toes due to t echnique and positioning. 3. Arthritic changes with chronic deformity of the fifth metatarsal head with differential again inc luding psoriatic arthritis. 4. Decreased osseous mineralization.
[2020-03-29 11:02] LABS: Calcium 8.3 mg/dL (8.4-10.2); Potassium 4.8 mmol/L (3.5-5.1)
[2020-03-29 11:34] LABS: Glucose,Whole Blood 214 mg/dL (75-99)
--- NOTE | 2020-03-29 11:35 | P.CRDCN ---
History of Present Illness History of present illness: This is Pattie Avendano PA-C dictating a consult on this patient The patient was interviewed and examined by me as well as by Dr. Vasquez Case discussed with Dr. Vsaquez and he agrees with the plan of care HPI Patient is an 80-year-old female with a history of diabetes, hypertension, sleep apnea, thyroid disorder, CHF, CAD status post CABG, status post permanent pacemaker implantation who presented from [facility] due to abnormal lab, worsening renal function. She follows with Dr. Ervin in [place]. Patient was recently discharged from the hospital after being treated for CHF exacerbation. She was discharged to [facility] and was on Bumex 2 mg twice a day. Her breathing had imp roved. No chest pain or chest pressure. Her renal function was declining therefore she was sent back for evaluation. On arrival to the emergency department her EKG showed ventricular paced rhythm. Chest x-ray showed small pleural effusions which were improved compared to last exam. Hemoglobin was 8.2, BUN 148, creatinine 3.82, potassium 5. Nephrology was consulted and gentle IV hydration along with discontinuation of diuretics was recommended. Her creatinine has improved. Patient seen and examined resting in bed. States she is short of breath at baseline but denies any worsening shortness of breath. States her breathing is improved compared to the last time she was in the hospital when she was treated for CHF exacerbation. Denies any chest pain or chest pressure. Her main complaint is right foot pain. Sections disease is following her for possible hematoma with possible underlying cellulitis and recommended bandages. ROS: No fevers, chills or rigors, no cough, phlegm or expectoration, no nausea, vomiting or diarrhea, no hematuria, dysuria, Positive for right foot pain no strokes or seizures, Positive for bruising of the right foot EXAMINATION: Temperature 98.1F, pulse 70, respirations 18, blood pressure 157/54, oxygen saturation 96% on room air Patient seen and examined resting in bed, in no acute distress Lungs with few scattered crackles at the bases Heart is regular, systolic murmur audible Legs are wrapped in an Yao bandage bilaterally No elevated JVD REVIEW OF LABS, ECG & MEDICAL DATA WBC 5.6, hemoglobin 7.4, platelets 141, potassium 4.6, BUN 143, creatinine 3.4 to Troponin 0.083, 0.068, 0.049 Reveals echocardiogram shows EF 50-55%, moderate MR IMPRESSION / ASSESSMENT: #1 ANABEL on CKD, creatinine improving, nephrology following #2 chronic CHF secondary to systolic dysfunction, last echocardiogram shows EF low normal at 50-55% , stable from a heart failure symptoms standpoint #3 CAD status post CABG #4 abnormal troponins in the setting of worsening renal function, patient denies any symptoms of chest pain #5 diabetes #6 hypertension #7 sleep apnea #8 status post permanent pacemaker implantation #9 right foot pain, infectious disease following for possible cellulitis PLAN: Management of diuretics per nephrology Maximize medical treatment Increase atorvastatin 40 mg daily Increase amlodipine to 2.5 mg twice a day Past Medical History Past Medical History: Diabetes Mellitus, Hypertension, Musculoskeletal Disorder, Sleep Apnea/CPAP/BIPAP, Thyroid Disorder Additional Past Medical History / Comment(s): COPD, CHF with diastolic heart failure, hypertension, chronic kidney disease stage III, coronary artery disease with previous bypass surgery, history of pacemaker insertion 2014, diabetes mellitus, hypertension, obstructive sleep apnea, thyroid nodules, hyperlipi demia, history of smoking in the order of [id number] History of Any Multi-Drug Resistant Organisms: ESBL Date of last positivie culture/infection: 10/18/19 MDRO Source:: ESBL URINE Past Surgical History: Appendectomy, Back Surgery, Bariatric Surgery, Coronary Bypass/CABG, Heart Catheterization, Hysterectomy, Pacemaker Additional Past Surgical History / Comment(s): LAP BAND, CATARACT LEFT EYE, NEUROMA ON FOOT, KNEE ARTHROSCOPY, PACEMAKER ([employer] 04/18/2015) Partial t hyroidectomy 1999 Past Anesthesia/Blood Transfusion Reactions: No Reported Reaction Type of Cardiac Device: Permanent Pacemaker Device Placement Date:: 04/18/2015 [employer] Past Psychological History: No Psychological Hx Reported Past Alcohol Use History: Occasional Past Drug Use History: None Reported - Past Family History Son(s) Family Medical History: Cancer Additional Family Medical History / Comment(s): MELANOMA Brother(s) Family Medical History: Cancer Father History Unknown: Yes Family Medical History: Cancer Mother Family Medical History: Coronary Artery Disease (CAD) Medications and Allergies Home Medications Medication Instructions Recorded Confirmed Type Simvastatin [Zocor] 5 mg PO HS@2100 11/29/17 03/27/20 History Losartan Potassium 100 mg PO DAILY@0900 02/13/20 03/27/20 History Insulin Lispro [humaLOG Kwikpen] 10 unit SQ AC-TID 02/14/20 03/27/20 History Aspirin EC [Ecotrin Low Dose] 81 mg PO DAILY@0903/09/20 03/27/20 History hydrALAZINE HCL [Apresoline] 100 mg PO TID@0900,1600,2200 03/09/20 03/27/20 History guaiFENesin-Coden 100-10MG/5ML 10 ml PO Q6H PRN ml 03/17/20 03/27/20 Rx [Robitussin AC] Bumetanide [BUMEX] 2 mg PO BID@0900,1700 03/27/20 03/27/20 History Clopidogrel [Plavix] 75 mg PO DAILY@0903/27/20 03/27/20 History Insulin Glargine,Hum.rec.anlog 20 unit SQ HS@209903/27/20 03/27/20 History [Basaglar Kwikpen U-100] Insulin Lispro [humaLOG Kwikpen] See Protocol SQ ACHS 03/27/20 03/27/20 History Isosorbide Mononitrate ER [Imdur] 30 mg PO DAILY@0903/27/20 03/27/20 History Nicotine 14Mg/24Hr Patch [Habitrol 1 patch TRANSDERM HS@209903/27/20 03/27/20 History 14Mg/24Hr Patch] Temazepam [Restoril] 30 mg PO HS@209903/27/20 03/27/20 History amLODIPine [Norvasc] 2.5 mg PO DAILY@0903/27/20 03/27/20 History carvediloL [Coreg*] 12.5 mg PO BID@0900,1700 03/27/20 03/27/20 History metOLazone [Zaroxolyn] 10 mg PO DAILY@0900 03/27/20 03/27/20 History Allergies Allergy/AdvReac Type Severity Reaction Status Date / Time Sulfa (Sulfonamide Allergy Unknown Verified 03/27/20 17:26 Antibiotics) sulfamethoxazole Allergy Unknown Verified 03/27/20 17:26 [From Bactrim] trimethoprim [From Bactrim] Allergy Unknown Verified 03/27/20 17:26 Physical Exam Vitals: Vital Signs Temp Pulse Resp BP Pulse Ox 03/29/20 08:00 98.1 F 70 18 157/54 96 03/29/20 04:00 66 18 182/74 96 03/29/20 00:00 65 18 164/70 93 L 03/28/20 20:00 98.5 F 60 18 149/54 95 03/28/20 16:00 97.7 F 60 18 149/66 95 03/28/20 12:00 97.8 F 92 16 152/67 94 L Intake and Output 03/28/20 03/29/20 03/29/20 22:59 06:59 14:59 Intake Total 480 Output Total 280 Balance 480 -280 Intake: Oral 480 Output: Urine 280 Other: Voiding Method Bedside Commode Bedside Commode # Voids 2 1 Results 03/28/20 05:44 03/29/20 10:23 Comprehensive Metabolic Panel 03/29/20 Range/Units 10:23 Sodium 136 L (137-145) mmol/L Potassium 4.8 (3.5-5.1) mmol/L Chloride 106 (98-107) mmol/L Carbon Dioxide 23 (22-30) mmol/L BUN 128 H* (7-17) mg/dL Creatinine 3.02 H (0.52-1.04) mg/dL Glucose 220 H (74-99) mg/dL Calcium 8.3 L (8.4-10.2) mg/dL Current Medications Generic Name Dose Route Start Last Admin Trade Name Freq PRN Reason Stop Dose Admin Amlodipine Besylate 2.5 mg 03/29/20 21:00 Norvasc PO BID WILMER Aspirin 81 mg 03/28/20 09:00 03/29/20 09:06 Aspirin PO 81 mg DAILY@0900 [facility] Administration Atorvastatin Calcium 40 mg 03/29/20 21:00 Lipitor PO HS@2100 [facility] Carvedilol 12.5 mg 03/28/20 09:00 03/29/20 09:06 Coreg PO 12.5 mg BID@0900,1700 [facility] Administration Clopidogrel Bisulfate 75 mg 03/28/20 09:00 03/29/20 09:06 Plavix PO 75 mg DAILY@0900 [facility] Administration Guaifenesin/Codeine Phosphate 10 ml 03/27/20 19:56 Robitussin Ac PO Q6H PRN Cough Hydralazine HCl 100 mg 03/27/20 22:00 03/29/20 09:06 Apresoline PO 100 mg TID@0900,1600,2200 WILMER Administration Cefazolin Sodium 1,000 mg/ 50 mls @ 100 mls/hr 03/29/20 09:00 03/29/20 09:10 Sodium Chloride IVPB 100 mls/hr Q12HR [facility]ILMER Administration Insulin Aspart 10 unit 03/28/20 07:30 03/29/20 07:51 Novolog SQ 10 unit AC-TID [facility]IL[facility] Administration Insulin Detemir 20 unit 03/27/20 21:00 03/28/20 21:12 Levemir SQ 20 unit HS@2100 [facility] Administration Isosorbide Mononitrate 30 mg 03/28/20 09:00 03/29/20 09:06 Imdur PO 30 mg DAILY@0900 [facility] Administration Losartan Potassium 50 mg 03/29/20 09:00 03/29/20 09:06 Cozaar PO 50 mg DAILY@0900 [facility] Administration Naloxone HCl 0.2 mg 03/27/20 18:03 Narcan IV Q2M PRN Opioid Reversal Nicotine 1 patch 03/27/20 21:00 03/28/20 21:13 Habitrol 14mg/24hr Patch TRANSDERM 1 patch HS@2100 [facility] Administration Temazepam 30 mg 03/28/20 00:39 03/29/20 00:09 Restoril PO 30 mg HS@2100 [facility] Administration Intake and Output 03/28/20 03/29/20 03/29/20 22:59 06:59 14:59 Intake Total 480 Output Total 280 Balance 480 -280 Intake: Oral 480 Output: Urine 280 Other: Voiding Method Bedside Commode Bedside Commode # Voids 2 1 03/28/20 05:44 03/29/20 10:23
--- NOTE | 2020-03-29 11:57 | PN ---
PROGRESS NOTE Patient is seen for followup for acute kidney injury on top of chronic kidney disease. This morning her renal function has improved. However, patient states she was short of breath. She has been maintained on IV fluids. She also stated that she does not have a good appetite and the fact that patient is tired of getting admitted to the hospital frequently. On previous admissions, she has had IV fluids for volume depletion and acute kidney injury from over-diuresis and she also developed very rapidly volume overload when diuretic doses are decreased. Given the fact that patient has poor quality of life with significant decrease in appetite, I will proceed with starting renal replacement therapy. We can always discontinue dialysis as outpatient if patient remains stable. She is in agreement. PHYSICAL EXAMINATION: Today, blood pressure is 157/54, heart rate 70 per minute, she is afebrile. Examination of the heart S1, S2. Examination of the lungs, bilateral breath sounds are heard. Abdomen is soft, nontender. Examination of the lower extremities shows bilateral extremities to be wrapped. LABS: Show sodium 136, potassium 4.9, chloride 106, BUN 128, serum creatinine 3.02. ASSESSMENT: 1. Acute kidney injury, mostly prerenal associated with over-diuresis. However, patient is very sensitive to IV fluids and diuresis with multiple admissions for heart failure and worsening renal functions. At this time, she states she has a very poor appetite and is tired of repeated admissions. Therefore, I will proceed with initiation of renal replacement therapy and we will plan our first treatment of dialysis tomorrow. Patient will be monitored as outpatient with possible recovery for possible recovery of kidney function, if she remains stable. 2. Diastolic heart failure. 3. Chronic kidney disease stage IV. Baseline creatinine about 2.5 mg/dL. 4. Hypertension uncontrolled. Expect improvement with improvement in volume status. PLAN: Proceed with Vascular Surgery consult and placement of dialysis catheter with repeat labs in a.m. and plan for first treatment tomorrow. MMODL / IJN: [id number] /
[2020-03-29 16:50] LABS: Glucose,Whole Blood 214 mg/dL (75-99)
--- NOTE | 2020-03-29 16:57 | P.PN ---
Subjective Progress Note Date: 03/29/20 Elza Avery, is an 80-year-old female with known history of chronic kidney disease stage IV who was recently admitted to [facility] due to acute diastolic congestive heart failure exacerbation, she was [facility] eyes 10 was transferred to [facility] on the [facility] for rehabilitation, patient did well in regard to her shortness of breath which has improved significantly, she is still having lower extremity edema, however kidney function worsened during her stay at [facility] on the [place], her last creatinine at [facility] was 4.5, a telemedicine visit was done with Dr. Roland control panel assembler who advised that patient should be transferred to the hospital. Patient was seen and examined on the medical floor she is alert and oriented 3 in no apparent distress she is complaining of bilateral lower extremity edema, there is no shortness of breath at rest but she has some shortness of breath with activity otherwise she denies any complaints there is no fever or chills no headache or dizziness no chest pain no cough no nausea or vomiting no abdominal pain no diarrhea no burning was urination no frequency or urgency and no hematuria. On 03/29/2020 patient was seen and examined on the medical floor, she is alert and oriented 3 in no apparent distress there is no fever or chills no headache or dizziness no chest pain no shortness of breath no cough no nausea or vomiting no abdominal pain no diarrhea no burning with urination no frequency no hematuria she is still complaining of bilateral lower extremity swelling she is complaining of right foot pain and swelling and discoloration and complaining of mild shortness of breath with activity Objective - Vital Signs Vital signs: Vital Signs Temp 98.1 F 03/29/20 08:00 Pulse 60 03/29/20 12:00 Resp 18 03/29/20 12:00 BP 134/63 03/29/20 12:00 Pulse Ox 97 03/29/20 12:00 Intake & Output 03/28/20 03/29/20 03/29/20 18:59 06:59 18:59 Intake Total 960 240 Output Total 280 Balance 960 -280 240 Intake: Oral 960 240 Output: Urine 280 Other: Voiding Method Bedside Commode Bedside Commode # Voids 2 1 - Exam In general patient is alert and oriented 3 in no apparent distress HEENT head normocephalic and atraumatic Neck is supple no JVD no goiter no lymphadenopathy Chest exam reveals a few scattered rhonchi no wheezing Cardiac exam reveals regular heart sounds S1 and S2 no gallops no murmurs Abdomen is soft nontender no organomegaly with normal bowel sounds Extremity exam reveals 2+ edema no cyanosis or clubbing Neurological examination reveals no gross focal deficits - Labs CBC & Chem 7: 03/28/20 05:44 03/29/20 10:23 Labs: Abnormal Lab Results - Last 24 Hours (Table) 03/28/20 03/28/20 03/29/20 Range/Units 16:47 19:54 06:00 Sodium (137-145) mmol/L BUN (7-17) mg/dL Creatinine (0.52-1.04) mg/dL Glucose (74-99) mg/dL POC Glucose (mg/dL) 171 H 139 H 180 H (75-99) mg/dL Calcium (8.4-10.2) mg/dL 03/29/20 03/29/20 Range/Units 10:23 11:33 Sodium 136 L (137-145) mmol/L BUN 128 H* (7-17) mg/dL Creatinine 3.02 H (0.52-1.04) mg/dL Glucose 220 H (74-99) mg/dL POC Glucose (mg/dL) 214 H (75-99) mg/dL Calcium 8.3 L (8.4-10.2) mg/dL Assessment and Plan Plan: 1. Acute kidney failure 2. Chronic kidney disease stage IV 3. Chronic diastolic congestive heart failure, last echo done in November 2019 revealed ejection fraction of 50-55% 4. Underlying history of hypertension 5. Underlying history of anemia 6. Underlying history of hyperlipidemia maintained on Lipitor 7. Right foot pain and swelling, possible cellulitis with abscess patient was started on IV Ancef and infectious disease consultation was requested 8. Elevated troponin levels cardiology consultation was requested 9. Underlying history of insulin-dependent diabetes Shaun's At this time patient is clinically stable Medications reviewed and reordered Awaiting input from nephrology and cardiology and infectious disease
[2020-03-29 20:46] LABS: Glucose,Whole Blood 203 mg/dL (75-99)
[2020-03-29] MEDS: ATORVASTATIN 40 MG TAB PO SCH (21:38)
[2020-03-29] MEDS: NICOTINE 14MG/24HR PATCH TRANSDERM SCH (21:39)
[2020-03-29] MEDS: INSULIN DETEMIR (LEVEMIR) 100 UNIT/ML SYR SQ SCH (21:39)
[2020-03-30] MEDS: TEMAZEPAM 15 MG CAP PO SCH ×2 (00:01→23:16)
--- NOTE | 2020-03-30 00:33 | PN ---
PROGRESS NOTE DATE OF SERVICE: 03/29/2020 REASON FOR FOLLOWUP: Right foot wound with a question of cellulitis. INTERVAL HISTORY: The patient is currently afebrile. The patient is breathing comfortably. Denies having any chest pain, shortness of breath or cough. Overall pain discomfort to the right foot slightly decreased. PHYSICAL EXAMINATION: Blood pressure 144/52 with a pulse of 68, temperature 98. She is 94% on room air. General description is an elderly female lying in bed in no distress. RESPIRATORY SYSTEM: Unlabored breathing, clear to auscultation anteriorly. HEART: S1, S2. Regular rate and rhythm. ABDOMEN: Soft, no tenderness. The right foot is currently dressed up. No obvious drainage on the dressing. LABS: Hemoglobin 7.4, white count 5.6, creatinine 3.02. Urine is negative. DIAGNOSTIC IMPRESSION AND PLAN: Patient with right foot bruise with question of cellulitis. X-ray did show some soft tissue swelling. White count normal. The patient is covered with cefazolin to continue along with Yao wrap. Monitor clinical course closely. MMODL / IJN: [id number] /
[2020-03-30 06:18] LABS: Glucose,Whole Blood 159 mg/dL (75-99)
[2020-03-30 06:57] LABS: Albumin 2.6 g/dL (3.5-5.0); Total Bilirubin 0.3 mg/dL (0.2-1.3); Total Protein 4.9 g/dL (6.3-8.2)
[2020-03-30 06:59] LABS: HCT 22.2 % (34.0-46.0); Hypochromasia Slight; MCHC 31.4 g/dL (31.0-37.0); MCV 92.3 fL (80.0-100.0); Mean Platelet Volume 9.4; Platelet Count 140 k/uL (150-450); RDW 14.9 % (11.5-15.5); WBC 5.7 k/uL (3.8-10.6)
[2020-03-30 07:19] LABS: Calcium 8.2 mg/dL (8.4-10.2); Potassium 4.6 mmol/L (3.5-5.1)
--- NOTE | 2020-03-30 07:33 | P.GSCN ---
History of Present Illness History of present illness: 80-year-old white female, consulted for placement of a dialysis catheter. Patient has history of chronic renal failure sleep apnea heart failure discuss with nephrology for placement of the dialysis catheter Neck examination neck is supple no jugular distention noted Chest few scattered breath sounds first and second sound present Abdomen soft nontender Vascular examination femorals are 1+ bilateral Plan is placement of the dialysis catheter risk and application discussed Past Medical History Past Medical History: Diabetes Mellitus, Hypertension, Musculoskeletal Disorder, Sleep Apnea/CPAP/BIPAP, Thyroid Disorder Additional Past Medical History / Comment(s): COPD, CHF with diastolic heart failure, hypertension, chronic kidney disease stage III, coronary artery disease with previous bypass surgery, history of pacemaker insertion 2014, diabetes mellitus, hypertension, obstructive sleep apnea, thyroid nodules, hyperlipidemia, history of smoking in the order of [id number] History of Any Multi-Drug Resistant Organisms: ESBL Year Discovered:: 10/18/19 MDRO Source:: ESBL URINE Past Surgical History: Appendectomy, Back Surgery, Bariatric Surgery, Coronary Bypass/CABG, Heart Catheterization, Hysterectomy, Pacemaker Additional Past Surgical History / Comment(s): LAP BAND, CATARACT LEFT EYE, NEUROMA ON FOOT, KNEE ARTHROSCOPY, PACEMAKER ([employer] 04/18/2015) Partial thyroidectomy 1999 Past Anesthesia/Blood Transfusion Reactions: No Reported Reaction Type of Cardiac Device: Permanent Pacemaker Device Placement Date:: 04/18/2015 [employer] Past Psychological History: No Psychological Hx Reported Past Alcohol Use History: Occasional Past Drug Use History: None Reported - Past Family History Son(s) Family Medical History: Cancer Additional Family Medical History / Comment(s): MELANOMA Brother(s) Family Medical History: Cancer Father History Unknown: Yes Family Medical History: Cancer Mother Family Medical History: Coronary Artery Disease (CAD) Medications and Allergies Home Medications Medication Instructions Recorded Confirmed Type Simvastatin [Zocor] 5 mg PO HS@2100 11/29/17 03/27/20 History Losartan Potassium 100 mg PO DAILY@0902/13/20 03/27/20 History Insulin Lispro [humaLOG Kwikpen] 10 unit SQ AC-TID 02/14/20 03/27/20 History Aspirin EC [Ecotrin Low Dose] 81 mg PO DAILY@0900 03/09/20 03/27/20 History hydrALAZINE HCL [Apresoline] 100 mg PO TID@0900,1600,2200 03/09/20 03/27/20 History guaiFENesin-Coden 100-10MG/5ML 10 ml PO Q6H PRN ml 03/17/20 03/27/20 Rx [Robitussin AC] Bumetanide [BUMEX] 2 mg PO BID@0900,1700 03/27/20 03/27/20 History Clopidogrel [Plavix] 75 mg PO DAILY@0900 03/27/20 03/27/20 History Insulin Glargine,Hum.rec.anlog 20 unit SQ HS@209903/27/20 03/27/20 History [Basaglar Kwikpen U-100] Insulin Lispro [humaLOG Kwikpen] See Protocol SQ ACHS 03/27/20 03/27/20 History Isosorbide Mononitrate ER [Imdur] 30 mg PO DAILY@0900 03/27/20 03/27/20 History Nicotine 14Mg/24Hr Patch [Habitrol 1 patch TRANSDERM HS@209903/27/20 03/27/20 History 14Mg/24Hr Patch] Temazepam [Restoril] 30 mg PO HS@209903/27/20 03/27/20 History amLODIPine [Norvasc] 2.5 mg PO DAILY@0903/27/20 03/27/20 History carvediloL [Coreg*] 12.5 mg PO BID@0900,1700 03/27/20 03/27/20 History metOLazone [Zaroxolyn] 10 mg PO DAILY@0900 03/27/20 03/27/20 History Allergies Allergy/AdvReac Type Severity Reaction Status Date / Time Sulfa (Sulfonamide Allergy Unknown Verified 03/27/20 17:26 Antibiotics) sulfamethoxazole Allergy Unknown Verified 03/27/20 17:26 [From Bactrim] trimethoprim [From Bactrim] Allergy Unknown Verified 03/27/20 17:26 Surgical - Exam Vital Signs Temp Pulse Resp BP Pulse Ox 98.3 F 66 16 142/56 99 03/27/20 16:01 03/27/20 16:01 03/27/20 16:01 03/27/20 16:01 03/27/20 16:01 Results - Labs 03/30/20 05:45 03/29/20 10:23 Abnormal Lab Results - Last 24 Hours (Table) 03/29/20 03/29/20 03/29/20 Range/Units 10:23 11:33 16:49 RBC (3.80-5.40) m/uL Hgb (11.4-16.0) gm/dL Hct (34.0-46.0) % Plt Count (150-450) k/uL Sodium 136 L (137-145) mmol/L BUN 128 H* (7-17) mg/dL Creatinine 3.02 H (0.52-1.04) mg/dL Glucose 220 H (74-99) mg/dL POC Glucose (mg/dL) 214 H 214 H (75-99) mg/dL Calcium 8.3 L (8.4-10.2) mg/dL 03/29/20 03/30/20 03/30/20 Range/Units 20:44 05:45 06:17 RBC 2.40 L (3.80-5.40) m/uL Hgb 7.0 L (11.4-16.0) gm/dL Hct 22.2 L (34.0-46.0) % Plt Count 140 L (150-450) k/uL Sodium (137-145) mmol/L BUN (7-17) mg/dL Creatinine (0.52-1.04) mg/dL Glucose (74-99) mg/dL POC Glucose (mg/dL) 203 H 159 H (75-99) mg/dL Calcium (8.4-10.2) mg/dL Diabetes panel 03/29/20 Range/Units 10:23 Sodium 136 L (137-145) mmol/L Potassium 4.8 (3.5-5.1) mmol/L Chloride 106 (98-107) mmol/L Carbon Dioxide 23 (22-30) mmol/L BUN 128 H* (7-17) mg/dL Creatinine 3.02 H (0.52-1.04) mg/dL Glucose 220 H (74-99) mg/dL Calcium 8.3 L (8.4-10.2) mg/dL Calcium panel 03/29/20 Range/Units 10:23 Calcium 8.3 L (8.4-10.2) mg/dL Pituitary panel 03/29/20 Range/Units 10:23 Sodium 136 L (137-145) mmol/L Potassium 4.8 (3.5-5.1) mmol/L Chloride 106 (98-107) mmol/L Carbon Dioxide 23 (22-30) mmol/L BUN 128 H* (7-17) mg/dL Creatinine 3.02 H (0.52-1.04) mg/dL Glucose 220 H (74-99) mg/dL Calcium 8.3 L (8.4-10.2) mg/dL Adrenal panel 03/29/20 Range/Units 10:23 Sodium 136 L (137-145) mmol/L Potassium 4.8 (3.5-5.1) mmol/L Chloride 106 (98-107) mmol/L Carbon Dioxide 23 (22-30) mmol/L BUN 128 H* (7-17) mg/dL Creatinine 3.02 H (0.52-1.04) mg/dL Glucose 220 H (74-99) mg/dL Calcium 8.3 L (8.4-10.2) mg/dL
[2020-03-30] MEDS ORDERED: fentaNYL (PF) 50 MCG/ML 2 ML AMP ONE (08:00)
[2020-03-30 08:05] LABS: Eosinophils # (M) 0.11 k/uL (0-0.7); Lymphocytes # (M) 1.03 k/uL (1.0-4.8); Monocytes # (M) 0.29 k/uL (0-1.0); Neutrophils # (M) 4.28 k/uL (1.3-7.7); Neutrophils % (M) 75 %; Nucleated Red Blood Cells 0 /100 WBC (0-0); Total Cells Counted 100
[2020-03-30 08:06] LABS: Anisocytosis (M) Present; Poikilocytosis (M) Present
[2020-03-30] MEDS ORDERED: SODIUM CHLORIDE 0.9% 500 ML 400 ML IV ONE (08:08)
[2020-03-30] MEDS ORDERED: fentaNYL (PF) 50 MCG/ML 2 ML AMP IV ONE (08:17)
[2020-03-30] MEDS: LIDOCAINE 1% INJ 10MG/ML (20 ML MDV) SQ ONE ×2 (08:20→08:25)
[2020-03-30] MEDS ORDERED: MIDAZOLAM 2 MG/2 ML VIAL IVP ONE (08:20)
[2020-03-30] MEDS ORDERED: SODIUM CHLORIDE 0.9% 250 ML IV ONE (08:21)
[2020-03-30] MEDS ORDERED: LIDOCAINE 1% INJ 10MG/ML (20 ML MDV) ONE ×2 (08:25)
[2020-03-30] MEDS ORDERED: LIDOCAINE 1% INJ 10MG/ML (20 ML MDV) SQ ONE (08:27)
[2020-03-30] MEDS: carvediloL 12.5 MG TAB PO SCH ×2 (09:31→21:10)
[2020-03-30] MEDS: ASPIRIN 81 MG PO SCH (09:31)
[2020-03-30] MEDS: amLODIPine 2.5 MG TAB PO SCH ×2 (09:31→21:15)
[2020-03-30] MEDS: hydrALAZINE HCL 50 MG TAB PO SCH ×3 (09:31→21:15)
[2020-03-30] MEDS: CLOPIDOGREL 75 MG TAB PO SCH (09:31)
[2020-03-30] MEDS: ISOSORBIDE MONONITRATE ER 30 MG TAB.ER.24H PO SCH (09:31)
[2020-03-30] MEDS: LOSARTAN 50 MG TAB PO SCH (09:31)
--- NOTE | 2020-03-30 09:35 | XR ---
EXAMINATION TYPE: XR chest 1V portable DATE OF EXAM: 03/30/2020 CLINICAL HISTORY: Hemodialysis catheter placement TECHNIQUE: Frontal portable view of the chest obtained. COMPARISON: Chest radiograph 03/27/2020 FINDINGS: Interval placement of right-sided tunneled dual-lumen hemodialysis catheter, with somewhat sharp curvature at the internal jugular insertion site however no definitive kinking. Left-sided anna l-chamber pacemaker device. Cardiomegaly. The mediastinal silhouette is within normal limits for size . Pulmonary vasculature is normal. Left midlung subsegmental atelectasis. There is no focal air space opacity, pleural effusion, or pneumothorax seen. The osseous structures are intact. IMPRESSION: 1. Right-sided internal jugular tunneled hemodialysis catheter with distal tip at the cavoatrial nini ction. No pneumothorax. 2. Cardiomegaly.
--- NOTE | 2020-03-30 10:31 | IR ---
EXAMINATION TYPE: IR cvc insert central tunneled DATE OF EXAM: 03/30/2020 CLINICAL HISTORY: Renal failure. TECHNIQUE: Fluoroscopy. COMPARISON: None. FINDINGS: Fluoroscopic guidance was provided during dialysis catheter insertion procedure performed by Dr. Goins. A total of 1.9 minute of fluoroscopic time was utilized during the procedure and 0 s pot images are saved to PACS. IMPRESSION: As Above.
--- NOTE | 2020-03-30 10:50 | PCN ---
PROCEDURE NOTE PREOPERATIVE DIAGNOSIS: Acute chronic renal failure. PROCEDURE: Ultrasound-guided 23 cm dialysis catheter placed right jugular approach. SEDATION TIME: 27 minutes This patient brought to the quality assurance lab technician, right side of the chest and prepped and draped in a proper manner. Ultrasound-guided micropuncture into the right common jugular vein and micropuncture guidewire was passed and 4-Kiswahili dilator advanced on top of the guidewire. Then we created the tunnel. Through the tunnel we brought 23 cm dialysis catheter through the neck incision site. This patient has a pacemaker on the left side. After that, we passed a guidewire which was parked in the inferior vena cava and dilator advanced. The sheath was advanced on the top of the guidewire. Then through the sheath we introduced a dialysis catheter, tip of the catheter in superior vena cava at the junction. Flushed with heparin saline and hep-locked and secured with 3-0 nylon. Dressing applied. Patient tolerated the procedure well. MMODL / IJN: [id number] /
--- NOTE | 2020-03-30 11:19 | P.PN ---
Subjective Progress Note Date: 03/30/20 Elza Avery, is an 80-year-old female with known history of chronic kidney disease stage IV who was recently admitted to [facility] due to acute diastolic congestive heart failure exacerbation, she was Mayda eyes 10 was transferred to [facility] on the [facility] for rehabilitation, patient did well in regard to her shortness of breath which has improved significantly, she is still having lower extremity edema, however kidney function worsened during her stay at [facility] on the [place], her last creatinine at [facility] was 4.5, a telemedicine visit was done with Dr. Roland manager business systems who advised that patient should be transferred to the hospital. Patient was seen and examined on the medical floor she is alert and oriented 3 in no apparent distress she is complaining of bilateral lower extremity edema, there is no shortness of breath at rest but she has some shortness of breath with activity otherwise she denies any complaints there is no fever or chills no headache or dizziness no chest pain no cough no nausea or vomiting no abdominal pain no diarrhea no burning was urination no frequency or urgency and no hematuria. On 03/29/2020 patient was seen and examined on the medical floor, she is alert and oriented 3 in no apparent distress there is no fever or chills no headache or dizziness no chest pain no shortness of breath no cough no nausea or vomiting no abdominal pain no diarrhea no burning with urination no frequency no hematuria she is still complaining of bilateral lower extremity swelling she is complaining of right foot pain and swelling and discoloration and complaining of mild shortness of breath with activity On 03/30/2020 patient was seen and examined on the medical floor, she is alert and oriented 3 in no distress, she underwent right subclavian catheter placement for dialysis this morning, there is no fever or chills no headache or dizziness no chest pain no shortness of breath no cough no nausea or vomiting no abdominal pain no diarrhea no blood in the stools no burning with urination no frequency or urgency and no hematuria Objective - Vital Signs Vital signs: Vital Signs Temp 97.3 F L 03/29/20 20:00 Pulse 66 03/30/20 08:00 Resp 18 03/30/20 08:00 BP 173/66 03/30/20 08:00 Pulse Ox 96 03/30/20 08:00 Intake & Output 03/29/20 03/30/2020 18:59 06:59 18:59 Intake Total 340 100 Balance 340 100 Weight 102 kg Intake: IV 100 Intake, IV Titration 100 Amount ceFAZolin 1,000 mg In 100 Sodium Chloride 0.9% 50 ml @ 100 mls/hr IVPB Q12HR [facility] Rx#:[id number] Oral 240 0 Other: Voiding Method Bedside Commode # Voids 2 - Exam In general patient is alert and oriented 3 in no apparent distress HEENT head normocephalic and atraumatic Neck is supple no JVD no goiter no lymphadenopathy Chest exam reveals a few scattered rhonchi no wheezing Cardiac exam reveals regular heart sounds S1 and S2 no gallops no murmurs Abdomen is soft nontender no organomegaly with normal bowel sounds Extremity exam reveals 2+ edema no cyanosis or clubbing Neurological examination reveals no gross focal deficits - Labs CBC & Chem 7: 03/30/20 05:45 03/30/20 05:45 Labs: Abnormal Lab Results - Last 24 Hours (Table) 03/29/20 03/29/20 03/29/20 Range/Units 10:23 11:33 16:49 RBC (3.80-5.40) m/uL Hgb (11.4-16.0) gm/dL Hct (34.0-46.0) % Plt Count (150-450) k/uL Sodium 136 L (137-145) mmol/L Chloride (98-107) mmol/L Carbon Dioxide (22-30) mmol/L BUN 128 H* (7-17) mg/dL Creatinine 3.02 H (0.52-1.04) mg/dL Glucose 220 H (74-99) mg/dL POC Glucose (mg/dL) 214 H 214 H (75-99) mg/dL Calcium 8.3 L (8.4-10.2) mg/dL Total Protein (6.3-8.2) g/dL Albumin (3.5-5.0) g/dL 03/29/20 03/30/20 03/30/20 Range/Units 20:44 05:45 05:45 RBC 2.40 L (3.80-5.40) m/uL Hgb 7.0 L (11.4-16.0) gm/dL Hct 22.2 L (34.0-46.0) % Plt Count 140 L (150-450) k/uL Sodium (137-145) mmol/L Chloride 112 H (98-107) mmol/L Carbon Dioxide 21 L (22-30) mmol/L BUN (7-17) mg/dL Creatinine 3.15 H (0.52-1.04) mg/dL Glucose 141 H (74-99) mg/dL POC Glucose (mg/dL) 203 H (75-99) mg/dL Calcium 8.2 L (8.4-10.2) mg/dL Total Protein 4.9 L (6.3-8.2) g/dL Albumin 2.6 L (3.5-5.0) g/dL 03/30/20 Range/Units 06:17 RBC (3.80-5.40) m/uL Hgb (11.4-16.0) gm/dL Hct (34.0-46.0) % Plt Count (150-450) k/uL Sodium (137-145) mmol/L Chloride (98-107) mmol/L Carbon Dioxide (22-30) mmol/L BUN (7-17) mg/dL Creatinine (0.52-1.04) mg/dL Glucose (74-99) mg/dL POC Glucose (mg/dL) 159 H (75-99) mg/dL Calcium (8.4-10.2) mg/dL Total Protein (6.3-8.2) g/dL Albumin (3.5-5.0) g/dL Assessment and Plan Plan: 1. Acute kidney failure 2. Chronic kidney disease stage IV 3. Chronic diastolic congestive heart failure, last echo done in November 2019 revealed ejection fraction of 50-55% 4. Underlying history of hypertension 5. Underlying history of anemia 6. Underlying history of hyperlipidemia maintained on Lipitor 7. Right foot pain and swelling, possible cellulitis with abscess patient was started on IV Ancef and infectious disease consultation was requested 8. Elevated troponin levels cardiology consultation was requested 9. Underlying history of insulin-dependent diabetes Shaun's At this time patient is clinically stable Medications reviewed and reordered Awaiting input from nephrology and cardiology and infectious disease
[2020-03-30 11:41] LABS: Glucose,Whole Blood 181 mg/dL (75-99)
[2020-03-30] MEDS ORDERED: DARBEPOETIN ALFA 60 MCG/0.3 ML SYRINGE SQ SCH (12:00)
--- NOTE | 2020-03-30 12:03 | PN ---
PROGRESS NOTE Patient is seen for followup for acute kidney injury on top of chronic kidney disease and CHF. This admission was mostly for prerenal acute kidney injury associated with over-diuresis. Patient has started to complain of shortness of breath when she was being hydrated and therefore the decision was made to proceed with renal replacement therapy. Patient had her dialysis catheter placed today and we will plan for her first treatment sometime this afternoon. She will need to be set up as outpatient for dialysis. No significant complaints today. Patient is complaining of soreness at the site of the catheter placement. She continues to have good urine output. PHYSICAL EXAMINATION: Today blood pressure was 173/66, heart rate 66 per minute, she is afebrile. Examination of the heart S1, S2. Examination of lungs, bilateral breath sounds are heard. Abdomen is soft, obese. Examination of the lower extremities shows chronic edema. Chronic skin changes noted. [employer] exam grossly intact. LABS: Show sodium 140, potassium 4.6, chloride 112, CO2 is 21, BUN was 128 yesterday. It is pending today and creatinine 3.15, hemoglobin 7.0. ASSESSMENT: 1. Acute kidney injury, prerenal, somewhat improved from admission. However, patient has started to complain of loss of appetite and increased fatigue and she was also complaining of shortness of breath with IV hydration. Therefore, we have decided to proceed with renal replacement therapy. Patient will have her first treatment today. She will maintain outpatient dialysis. We will continue to monitor for recovery of renal function and maintenance of volume status as outpatient. 2. Anemia of chronic disease, check iron studies. Maintain patient on Aranesp. If the patient is iron deficient, I will add IV iron again this admission. 3. Hypertension. Continue current antihypertensive regimen. Continue with the Cozaar as well. 4. Disproportionately elevated BUN secondary to prerenal acute kidney injury. 5. Diastolic heart failure. PLAN: Hemodialysis today and then again in a.m. Check iron studies. Maintain patient on Aranesp and patient will need to be set up for outpatient dialysis. MMODL / IJN: [id number] /
--- NOTE | 2020-03-30 15:35 | P.PN ---
Subjective This is Pattie Avendano PA-C dictating a progress note on this patient The patient was interviewed and examined by me as well as by Dr. Vasquez Case discussed with Dr. Vasquez and he agrees with the plan of care HPI/interval history Patient is an 80-year-old female with a history of diabetes, hypertension, sleep apnea, thyroid disorder, CHF, CAD status post CABG, status post permanent pacemaker implantation who presented from [facility] due to abnormal lab, worsening renal function. She was admitted for further evaluation and treatment. Nephrology has evaluated the patient and is initiating renal replacement therapy. Patient seen and examined sitting in bed. States her breathing is" okay". Denies any chest pain, dizziness or headaches. EXAMINATION Patient is afebrile, pulse in the 60s, respirations 18, blood pressure 145/57, oxygen saturation 94% on room air Patient seen and examined resting in bed, appears in no acute distress Lungs with few scattered crackles at the bases Heart is regular, systolic murmur audible Mild lower extremity edema bilaterally, legs wrapped Yao bandage REVIEW OF LABS, ECG WBC 5.7, hemoglobin 7, platelets 140, potassium 4.6, creatinine 3.15 IMPRESSION / ASSESSMENT: #1 ANABEL on CKD, nephrology following, starting dialysis #2 chronic CHF secondary to systolic dysfunction, last echocardiogram shows EF low normal at 50-55% , stable from a heart failure symptoms standpoint #3 CAD status post CABG #4 abnormal troponins in the setting of worsening renal function, patient denies any symptoms of chest pain #5 diabetes #6 hypertension blood pressure trending high #7 sleep apnea #8 status post permanent pacemaker implantation #9 right foot pain, infectious disease following for possible cellulitis PLAN: Continue with medical management from a cardiac standpoint Increase Coreg to 25 mg twice daily Continue statins Objective - Vital Signs Vital signs: Vital Signs Temp 97.3 F L 03/29/20 20:00 Pulse 60 03/30/20 12:00 Resp 18 03/30/20 12:00 BP 145/57 03/30/20 12:00 Pulse Ox 94 L 03/30/20 12:00 Intake & Output 03/29/20 03/30/20 03/30/20 18:59 06:59 18:59 Intake Total 340 100 Balance 340 100 Weight 102 kg Intake: IV 100 Intake, IV Titration 100 Amount ceFAZolin 1,000 mg In 100 Sodium Chloride 0.9% 50 ml @ 100 mls/hr IVPB Q12HR [facility] Rx#:[id number] Oral 240 0 Other: Voiding Method Bedside Commode # Voids 2 - Labs CBC & Chem 7: 03/30/20 05:45 03/30/20 05:45 Labs: Abnormal Lab Results - Last 24 Hours (Table) 03/29/20 03/29/20 03/30/20 Range/Units 16:49 20:44 05:45 RBC 2.40 L (3.80-5.40) m/uL Hgb 7.0 L (11.4-16.0) gm/dL Hct 22.2 L (34.0-46.0) % Plt Count 140 L (150-450) k/uL Chloride (98-107) mmol/L Carbon Dioxide (22-30) mmol/L Creatinine (0.52-1.04) mg/dL Glucose (74-99) mg/dL POC Glucose (mg/dL) 214 H 203 H (75-99) mg/dL Calcium (8.4-10.2) mg/dL Total Protein (6.3-8.2) g/dL Albumin (3.5-5.0) g/dL 03/30/20 03/30/20 03/30/20 Range/Units 05:45 06:17 11:40 RBC (3.80-5.40) m/uL Hgb (11.4-16.0) gm/dL Hct (34.0-46.0) % Plt Count (150-450) k/uL Chloride 112 H (98-107) mmol/L Carbon Dioxide 21 L (22-30) mmol/L Creatinine 3.15 H (0.52-1.04) mg/dL Glucose 141 H (74-99) mg/dL POC Glucose (mg/dL) 159 H 181 H (75-99) mg/dL Calcium 8.2 L (8.4-10.2) mg/dL Total Protein 4.9 L (6.3-8.2) g/dL Albumin 2.6 L (3.5-5.0) g/dL
[2020-03-30 17:10] LABS: % Iron Saturation 12.95 (12.00-45.00)
[2020-03-30 17:12] LABS: Glucose,Whole Blood 176 mg/dL (75-99)
[2020-03-30] MEDS: INSULIN ASPART (NovoLOG) 100 UNIT/ML VIAL SQ SCH ×3 (17:50→21:11)
[2020-03-30 20:38] LABS: Glucose,Whole Blood 229 mg/dL (75-99)
[2020-03-30] MEDS: INSULIN DETEMIR (LEVEMIR) 100 UNIT/ML SYR SQ SCH (21:15)
[2020-03-30] MEDS: NICOTINE 14MG/24HR PATCH TRANSDERM SCH (21:15)
[2020-03-30] MEDS: ATORVASTATIN 40 MG TAB PO SCH (21:15)
--- NOTE | 2020-03-31 01:00 | PN ---
PROGRESS NOTE DATE OF SERVICE: 03/30/2020 REASON FOR FOLLOWUP: Right foot cellulitis. INTERVAL HISTORY: The patient is currently afebrile. The patient is breathing comfortably. The patient did get a dialysis catheter for dialysis because of the kidney function. Denies having any chest pain or shortness of breath or cough. No abdominal pain. No worsening of pain in the right foot. PHYSICAL EXAMINATION: Blood pressure 166/72 with a pulse of 64, temperature of 97.8. She is 95% on room air. General description is an elderly female lying in bed in no distress. RESPIRATORY SYSTEM: Unlabored breathing, clear to auscultation anteriorly. HEART: S1, S2. Regular rate and rhythm. ABDOMEN: Soft, no tenderness. LABS: Hemoglobin is 7 with white count 5.7, creatinine 3.15. DIAGNOSTIC IMPRESSION AND PLAN: Patient with right foot cellulitis versus bruise. Currently covered with cefazolin 1 gram q.12. Continue along with Yao wrap to keep the swelling down and monitor clinical course closely. MMODL / IJN: [id number] /
[2020-03-31 06:19] LABS: Glucose,Whole Blood 127 mg/dL (75-99)
[2020-03-31 07:38] LABS: Albumin 2.8 g/dL (3.5-5.0); Calcium 7.9 mg/dL (8.4-10.2); Potassium 4.1 mmol/L (3.5-5.1); Total Bilirubin 0.4 mg/dL (0.2-1.3)
[2020-03-31 07:43] LABS: HCT 22.9 % (34.0-46.0); HGB 7.1 gm/dL (11.4-16.0); Hypochromasia Slight; MCH 28.1 pg (25.0-35.0); MCHC 31.1 g/dL (31.0-37.0); MCV 90.2 fL (80.0-100.0); Mean Platelet Volume 8.9; Platelet Count 140 k/uL (150-450); RBC 2.54 m/uL (3.80-5.40); WBC 4.9 k/uL (3.8-10.6)
[2020-03-31] MEDS: INSULIN ASPART (NovoLOG) 100 UNIT/ML VIAL SQ SCH ×3 (07:46→17:27)
[2020-03-31] MEDS: CLOPIDOGREL 75 MG TAB PO SCH (08:54)
[2020-03-31] MEDS: ASPIRIN 81 MG PO SCH (08:54)
[2020-03-31] MEDS: carvediloL 12.5 MG TAB PO SCH (08:57)
[2020-03-31] MEDS: LOSARTAN 50 MG TAB PO SCH (08:57)
[2020-03-31] MEDS: amLODIPine 2.5 MG TAB PO SCH ×2 (08:57→20:50)
[2020-03-31] MEDS: hydrALAZINE HCL 50 MG TAB PO SCH ×3 (08:57→22:55)
[2020-03-31] MEDS: ISOSORBIDE MONONITRATE ER 30 MG TAB.ER.24H PO SCH (08:58)
[2020-03-31 09:27] LABS: Lymphocytes # (M) 0.44 k/uL (1.0-4.8); Monocytes # (M) 0.34 k/uL (0-1.0); Neutrophils # (M) 3.92 k/uL (1.3-7.7); Neutrophils % (M) 80 %; Nucleated Red Blood Cells 0 /100 WBC (0-0); Total Cells Counted 100
[2020-03-31 09:32] LABS: Anisocytosis (M) Present; Poikilocytosis (M) Present
[2020-03-31] MEDS: SODIUM FERRIC GLUCONAT-SUCROSE 125 MG in SODIUM CHLORIDE 0.9% 100 ML IVPB SCH (10:36)
[2020-03-31 11:00] LABS: Basophils % (A) 0 %; Eosinophils # (A) 0.1 k/uL (0-0.7); Eosinophils % (A) 3 %; HCT 22.4 % (34.0-46.0); Hypochromasia Slight; Lymphocytes # (A) 0.9 k/uL (1.0-4.8); Lymphocytes % (A) 21 %; MCH 27.9 pg (25.0-35.0); MCHC 31.1 g/dL (31.0-37.0); MCV 89.9 fL (80.0-100.0); Mean Platelet Volume 9.1; Monocytes # (A) 0.5 k/uL (0-1.0); Monocytes % (A) 13 %; Neutrophils # (A) 2.4 k/uL (1.3-7.7); Neutrophils % (A) 59 %; Platelet Count 114 k/uL (150-450); RBC 2.49 m/uL (3.80-5.40); RDW 15.1 % (11.5-15.5); WBC 4.1 k/uL (3.8-10.6)
[2020-03-31 11:47] LABS: Glucose,Whole Blood 121 mg/dL (75-99)
--- NOTE | 2020-03-31 13:23 | P.PN ---
Subjective Progress Note Date: 03/31/20 Elza Avery, is an 80-year-old female with known history of chronic kidney disease stage IV who was recently admitted to [facility] due to acute diastolic congestive heart failure exacerbation, she was Mayda eyes 10 was transferred to [facility] on the [facility] for rehabilitation, patient did well in regard to her shortness of breath which has improved significantly, she is still having lower extremity edema, however kidney function worsened during her stay at [facility] on the [place], her last creatinine at [facility] was 4.5, a telemedicine visit was done with Dr. Roland client services manager who advised that patient should be transferred to the hospital. Patient was seen and examined on the medical floor she is alert and oriented 3 in no apparent distress she is complaining of bilateral lower extremity edema, there is no shortness of breath at rest but she has some shortness of breath with activity otherwise she denies any complaints there is no fever or chills no headache or dizziness no chest pain no cough no nausea or vomiting no abdominal pain no diarrhea no burning was urination no frequency or urgency and no hematuria. On 03/29/2020 patient was seen and examined on the medical floor, she is alert and oriented 3 in no apparent distress there is no fever or chills no headache or dizziness no chest pain no shortness of breath no cough no nausea or vomiting no abdominal pain no diarrhea no burning with urination no frequency no hematuria she is still complaining of bilateral lower extremity swelling she is complaining of right foot pain and swelling and discoloration and complaining of mild shortness of breath with activity On 03/30/2020 patient was seen and examined on the medical floor, she is alert and oriented 3 in no distress, she underwent right subclavian catheter placement for dialysis this morning, there is no fever or chills no headache or dizziness no chest pain no shortness of breath no cough no nausea or vomiting no abdominal pain no diarrhea no blood in the stools no burning with urination no frequency or urgency and no hematuria On 03/31/2020 patient was seen and examined on the medical floor she is alert and oriented 3 she underwent her first dialysis session today she had 2.5 L removed better she has less shortness of breath there is no fever or chills no headache or dizziness no chest pain no shortness of breath no cough no nausea or vomiting no abdominal pain no diarrhea no burning with urination no frequency or urgency and no hematuria Objective - Vital Signs Vital signs: Vital Signs Temp 97.3 F L 03/31/20 13:12 Pulse 63 03/31/20 13:12 Resp 18 03/31/20 13:12 BP 126/58 03/31/20 13:12 Pulse Ox 96 03/31/20 10:37 Intake & Output 03/30/20 03/31/20 03/31/20 18:59 06:59 18:59 Intake Total 100 120 300 Output Total 1999 2499 Balance -1900 120 -2200 Weight 101.5 kg Intake: IV 100 Oral 0 120 300 Output: Hemodialysis 1999 2499 Other: Voiding Method Bedside Commode Bedside Commode # Voids 0 - Exam In general patient is alert and oriented 3 in no apparent distress HEENT head normocephalic and atraumatic Neck is supple no JVD no goiter no lymphadenopathy Chest exam reveals a few scattered rhonchi no wheezing Cardiac exam reveals regular heart sounds S1 and S2 no gallops no murmurs Abdomen is soft nontender no organomegaly with normal bowel sounds Extremity exam reveals 2+ edema no cyanosis or clubbing Neurological examination reveals no gross focal deficits - Labs CBC & Chem 7: 03/31/20 10:49 03/31/20 06:22 Labs: Abnormal Lab Results - Last 24 Hours (Table) 03/30/20 03/30/20 03/30/20 Range/Units 05:45 17:10 20:37 RBC (3.80-5.40) m/uL Hgb (11.4-16.0) gm/dL Hct (34.0-46.0) % Plt Count (150-450) k/uL Lymphocytes # (1.0-4.8) k/uL Lymphocytes # (Manual) (1.0-4.8) k/uL Chloride (98-107) mmol/L BUN (7-17) mg/dL Creatinine (0.52-1.04) mg/dL Glucose (74-99) mg/dL POC Glucose (mg/dL) 176 H 229 H (75-99) mg/dL Calcium (8.4-10.2) mg/dL Iron 36 L (50-170) ug/dL Total Protein (6.3-8.2) g/dL Albumin (3.5-5.0) g/dL 03/31/20 03/31/20 03/31/20 Range/Units 06:17 06:22 06:22 RBC 2.54 L (3.80-5.40) m/uL Hgb 7.1 L (11.4-16.0) gm/dL Hct 22.9 L (34.0-46.0) % Plt Count 140 L (150-450) k/uL Lymphocytes # (1.0-4.8) k/uL Lymphocytes # (Manual) 0.44 L (1.0-4.8) k/uL Chloride 110 H (98-107) mmol/L BUN 77 H (7-17) mg/dL Creatinine 2.27 H (0.52-1.04) mg/dL Glucose 111 H (74-99) mg/dL POC Glucose (mg/dL) 127 H (75-99) mg/dL Calcium 7.9 L (8.4-10.2) mg/dL Iron (50-170) ug/dL Total Protein 5.0 L (6.3-8.2) g/dL Albumin 2.8 L (3.5-5.0) g/dL 03/31/20 03/31/20 Range/Units 10:49 11:46 RBC 2.49 L (3.80-5.40) m/uL Hgb 7.0 L (11.4-16.0) gm/dL Hct 22.4 L (34.0-46.0) % Plt Count 114 L (150-450) k/uL Lymphocytes # 0.9 L (1.0-4.8) k/uL Lymphocytes # (Manual) (1.0-4.8) k/uL Chloride (98-107) mmol/L BUN (7-17) mg/dL Creatinine (0.52-1.04) mg/dL Glucose (74-99) mg/dL POC Glucose (mg/dL) 121 H (75-99) mg/dL Calcium (8.4-10.2) mg/dL Iron (50-170) ug/dL Total Protein (6.3-8.2) g/dL Albumin (3.5-5.0) g/dL Assessment and Plan Plan: 1. Acute kidney failure 2. Chronic kidney disease stage IV, with end-stage renal disease patient started on hemodialysis today 3. Chronic diastolic congestive heart failure, last echo done in November 2019 revealed ejection fraction of 50-55% 4. Underlying history of hypertension 5. Underlying history of anemia 6. Underlying history of hyperlipidemia maintained on Lipitor 7. Right foot pain and swelling, possible cellulitis with abscess patient was started on IV Ancef and infectious disease consultation was requested 8. Elevated troponin levels cardiology consultation was requested 9. Underlying history of insulin-dependent diabetes Shaun's At this time patient is clinically stable Medications reviewed and reordered Awaiting input from nephrology and cardiology and infectious disease
[2020-03-31 14:28] LABS: Hepatitis A Antibody IgM Non-Reactive (Non-Reactive); Hepatitis B Core IgM Non-Reactive (Non-Reactive); Hepatitis B Surface AB- Quant 3.5 mIU/mL; Hepatitis B Surface Antibody Non-Reactive (Non-Reactive); Hepatitis B Surface Antigen Non-Reactive (Non-Reactive); Hepatitis C IgG Antibody Non-Reactive (Non-Reactive)
--- NOTE | 2020-03-31 16:29 | P.PN ---
Subjective This is Pattie Avendano PA-C dictating a progress note on this patient The patient was interviewed and examined by me as well as by Dr. Vasquez Case discussed with Dr. Vasquez and he agrees with the plan of care HPI/interval history Patient is an 80-year-old female with a history of diabetes, hypertension, sleep apnea, thyroid disorder, CHF, CAD status post CABG, status post permanent pacemaker implantation who presented from [facility] due to abnormal lab, worsening renal function. She was admitted for further evaluation and treatment. Nephrology has evaluated the patient and is initiated renal replacement therapy. Patient seen and examined resting in bed, currently receiving hemodialysis. States her breathing is" fine". Denies any chest pain. States her foot is getting better. EXAMINATION Patient is afebrile, pulse in the 60s, respirations 18, blood pressure 126/58, oxygen saturation 86% on room air Patient seen and examined resting in bed, in no acute distress Lungs are clear to auscultation bilaterally, no wheezing rhonchi or crackles appreciated Heart is regular, soft systolic murmur Legs are wrapped in an Yao bandage REVIEW OF LABS, ECG WBC 4.1, hemoglobin 7.0, platelets 114, potassium 4.1, BUN 77, creatinine 2.27 IMPRESSION / ASSESSMENT: #1 ANABEL on CKD, nephrology following, on dialysis #2 chronic CHF secondary to systolic dysfunction, last echocardiogram shows EF low normal at 50-55% , stable from a heart failure symptoms standpoint #3 CAD status post CABG #4 abnormal troponins in the setting of worsening renal function, patient denies any symptoms of chest pain #5 diabetes #6 hypertension blood pressure trending high #7 sleep apnea #8 status post permanent pacemaker implantation #9 right foot pain, infectious disease following for possible cellulitis PLAN: Continue aspirin and statins Continue current antihypertensive regimen and monitor blood pressure now that she is receiving dialysis Further recommendations to follow based on blood pressure readings Objective - Vital Signs Vital signs: Vital Signs Temp 97.3 F L 03/31/20 13:12 Pulse 63 03/31/20 13:12 Resp 18 03/31/20 15:26 BP 126/58 03/31/20 13:12 Pulse Ox 96 03/31/20 10:37 Intake & Output 03/30/20 03/31/20 03/31/20 18:59 06:59 18:59 Intake Total 100 120 300 Output Total 2000 2500 Balance -1900 120 -2200 Weight 101.5 kg Intake: IV 100 Oral 0 120 300 Output: Hemodialysis 1999 2499 Other: Voiding Method Bedside Commode Bedside Commode # Voids 0 - Labs CBC & Chem 7: 03/31/20 10:49 03/31/20 06:22 Labs: Abnormal Lab Results - Last 24 Hours (Table) 03/30/20 03/30/20 03/30/20 Range/Units 05:45 17:10 20:37 RBC (3.80-5.40) m/uL Hgb (11.4-16.0) gm/dL Hct (34.0-46.0) % Plt Count (150-450) k/uL Lymphocytes # (1.0-4.8) k/uL Lymphocytes # (Manual) (1.0-4.8) k/uL Chloride (98-107) mmol/L BUN (7-17) mg/dL Creatinine (0.52-1.04) mg/dL Glucose (74-99) mg/dL POC Glucose (mg/dL) 176 H 229 H (75-99) mg/dL Calcium (8.4-10.2) mg/dL Iron 36 L (50-170) ug/dL Total Protein (6.3-8.2) g/dL Albumin (3.5-5.0) g/dL 03/31/20 03/31/20 03/31/20 Range/Units 06:17 06:22 06:22 RBC 2.54 L (3.80-5.40) m/uL Hgb 7.1 L (11.4-16.0) gm/dL Hct 22.9 L (34.0-46.0) % Plt Count 140 L (150-450) k/uL Lymphocytes # (1.0-4.8) k/uL Lymphocytes # (Manual) 0.44 L (1.0-4.8) k/uL Chloride 110 H (98-107) mmol/L BUN 77 H (7-17) mg/dL Creatinine 2.27 H (0.52-1.04) mg/dL Glucose 111 H (74-99) mg/dL POC Glucose (mg/dL) 127 H (75-99) mg/dL Calcium 7.9 L (8.4-10.2) mg/dL Iron (50-170) ug/dL Total Protein 5.0 L (6.3-8.2) g/dL Albumin 2.8 L (3.5-5.0) g/dL 03/31/20 03/31/20 Range/Units 10:49 11:46 RBC 2.49 L (3.80-5.40) m/uL Hgb 7.0 L (11.4-16.0) gm/dL Hct 22.4 L (34.0-46.0) % Plt Count 114 L (150-450) k/uL Lymphocytes # 0.9 L (1.0-4.8) k/uL Lymphocytes # (Manual) (1.0-4.8) k/uL Chloride (98-107) mmol/L BUN (7-17) mg/dL Creatinine (0.52-1.04) mg/dL Glucose (74-99) mg/dL POC Glucose (mg/dL) 121 H (75-99) mg/dL Calcium (8.4-10.2) mg/dL Iron (50-170) ug/dL Total Protein (6.3-8.2) g/dL Albumin (3.5-5.0) g/dL
--- NOTE | 2020-03-31 17:01 | PN ---
PROGRESS NOTE Patient is seen on hemodialysis. She is tolerating her treatment well. This is her second treatment today. We had about 2 L of fluid removed yesterday and we are planning for about 2.5 L today. On examination, patient is comfortable. She denies any complaints. Soreness in the chest has improved. Blood pressure this morning was 118/52, heart rate 62 per minute. She is afebrile. EXAMINATION OF THE HEART: S1 and S2. EXAMINATION OF LUNGS: Bilateral breath sounds are heard. ABDOMEN: Soft, obese, non-tender. Examination of lower extremities shows much improved edema. ENGRAVER TIRE MOLD exam is grossly intact. Labs show sodium of 139, potassium 4.1. ASSESSMENT: 1. Chronic kidney disease, stage 4, with acute kidney injury, mostly cardiorenal, and diastolic heart failure, currently started on hemodialysis and tolerating treatments well. The patient will continue with outpatient hemodialysis. She does not want to go to the [place] [facility] and prefers to go to the [facility]. The patient will be maintained on a Friday, Friday, Friday schedule. We will continue to watch for recovery of renal function. 2. Volume status, currently improving. 3. Metabolic acidosis, now improved. I will discontinue the sodium bicarb. 4. Anemia with evidence of iron deficiency, maintained on Aranesp. IV iron has been added. 5. Hypertension, currently controlled. PLAN: Repeat hemodialysis in a.m. Decrease Coreg to 6.25 mg b.i.d., as blood pressure is improved with ultrafiltration. An outpatient chair time to be arranged. I will also decrease the hydralazine once blood pressure further improves. MMODL / IJN: [id number] /
[2020-03-31 17:04] LABS: Glucose,Whole Blood 137 mg/dL (75-99)
[2020-03-31] MEDS: carvediloL 6.25 MG TAB PO SCH (17:27)
--- NOTE | 2020-03-31 17:28 | PN ---
PROGRESS NOTE DATE OF SERVICE: 03/2024. REASON FOR FOLLOWUP: Right foot cellulitis. INTERVAL HISTORY: Patient is currently afebrile. The patient is breathing comfortably. Denies having any chest pain or shortness of breath or cough. No nausea, no vomiting. No abdominal pain or diarrhea. PHYSICAL EXAMINATION: Blood pressure 136/58 with a pulse of 63, temperature 97.8. General description is an elderly female, lying in bed in no distress. RESPIRATORY SYSTEM: Unlabored breathing, clear to auscultation anteriorly. HEART: S1, S2. Regular rate and rhythm. ABDOMEN: Soft, no tenderness. Right foot is mostly a bruise, though it has spread from the lines of the . LABS: Hemoglobin is 7, white count 4.1, BUN of 77, creatinine is 2.27. DIAGNOSTIC IMPRESSION AND PLAN: Patient with right foot pain. This patient did have a bruise with concern for possible cellulitis, covered with for a short course and monitor clinical course closely. MMODL / IJN: [id number] /
[2020-03-31] MEDS ORDERED: ACETAMINOPHEN TAB 325 MG TAB PO PRN (18:34)
[2020-03-31] MEDS: ATORVASTATIN 40 MG TAB PO SCH (20:51)
[2020-03-31] MEDS: NICOTINE 14MG/24HR PATCH TRANSDERM SCH (20:51)
[2020-03-31] MEDS: INSULIN DETEMIR (LEVEMIR) 100 UNIT/ML SYR SQ SCH (20:57)
[2020-03-31 21:43] LABS: Glucose,Whole Blood 160 mg/dL (75-99)
[2020-03-31] MEDS: TEMAZEPAM 15 MG CAP PO SCH (22:55)
[2020-04-01 06:03] LABS: Glucose,Whole Blood 126 mg/dL (75-99)
[2020-04-01 06:46] LABS: HCT 21.6 % (34.0-46.0); Hypochromasia Moderate; MCH 29.3 pg (25.0-35.0); MCHC 32.2 g/dL (31.0-37.0); MCV 90.9 fL (80.0-100.0); Mean Platelet Volume 9.1; Platelet Count 124 k/uL (150-450); RBC 2.38 m/uL (3.80-5.40); WBC 4.7 k/uL (3.8-10.6)
[2020-04-01 07:08] LABS: ALT <6 U/L (4-34); AST 15 U/L (14-36); African American GFR (CKD) 25 (>60 ml/min/1.73 sqM); Albumin 2.6 g/dL (3.5-5.0); Alkaline Phosphatase 48 U/L (38-126); Anion Gap 5 mmol/L; Blood Urea Nitrogen 50 mg/dL (7-17); Carbon Dioxide 24 mmol/L (22-30); Chloride 111 mmol/L (98-107); Eosinophils # (M) 0.19 k/uL (0-0.7); Glucose 111 mg/dL (74-99); Lymphocytes # (M) 1.36 k/uL (1.0-4.8); Monocytes # (M) 0.56 k/uL (0-1.0); Neutrophils # (M) 2.59 k/uL (1.3-7.7); Neutrophils % (M) 55 %; Non-African American GFR(CKD) 21 (>60 ml/min/1.73 sqM); Nucleated Red Blood Cells 0 /100 WBC (0-0); Sodium 140 mmol/L (137-145); Total Bilirubin 0.3 mg/dL (0.2-1.3); Total Cells Counted 100; Total Protein 4.7 g/dL (6.3-8.2)
[2020-04-01] MEDS: SODIUM FERRIC GLUCONAT-SUCROSE 125 MG in SODIUM CHLORIDE 0.9% 100 ML IVPB SCH (09:13)
[2020-04-01 09:14] LABS: Glucose,Whole Blood 216 mg/dL (75-99)
[2020-04-01] MEDS: hydrALAZINE HCL 50 MG TAB PO SCH ×3 (09:15→22:03)
[2020-04-01] MEDS: carvediloL 6.25 MG TAB PO SCH ×2 (09:15→16:29)
[2020-04-01] MEDS: CLOPIDOGREL 75 MG TAB PO SCH (09:15)
[2020-04-01] MEDS: ASPIRIN 81 MG PO SCH (09:15)
[2020-04-01] MEDS: ISOSORBIDE MONONITRATE ER 30 MG TAB.ER.24H PO SCH (09:15)
[2020-04-01] MEDS: LOSARTAN 50 MG TAB PO SCH (09:15)
[2020-04-01] MEDS: amLODIPine 2.5 MG TAB PO SCH ×2 (09:15→20:34)
[2020-04-01] MEDS: INSULIN ASPART (NovoLOG) 100 UNIT/ML VIAL SQ SCH ×3 (09:17→19:07)
--- NOTE | 2020-04-01 12:14 | PN ---
PROGRESS NOTE Patient is seen for followup for acute kidney injury, currently hemodialysis dependent. Patient has been started on dialysis. She is tolerating her treatment well and feels much better with fluid removal. PHYSICAL EXAMINATION: On examination today, blood pressure is 112/78, heart rate 65 per minute, she is afebrile. Examination of the heart S1, S2. Examination of the lungs, bilateral breath sounds are heard. Abdomen is soft, nontender. Examination of lower extremities shows much decreased edema. HEAD REFRIGERATING ENGINEER exam is grossly intact. LABS: Show sodium 140, potassium 4.0, chloride 111, BUN 50, creatinine 2.1 from today. ASSESSMENT: 1. Acute kidney injury, mainly cardiorenal, currently started on dialysis. The patient will continue on a Friday, Friday, Friday schedule for hemodialysis. We will follow her up at [facility]. She is set for the following Friday as outpatient. 2. Anemia. Hemoglobin has been stable. She is maintained on IV iron and Aranesp. 3. Volume overload, significantly improved. 4. Diastolic heart failure. 5. Generalized debility, currently improved. PLAN: Hemodialysis today and then the patient can be discharged and follow up as outpatient for dialysis on Friday in [place]. I will decrease her hydralazine to 50 mg t.i.d. and the Coreg has also been decreased given the improvement in blood pressure with dialysis. MMODL / IJN: [id number] /
[2020-04-01 12:19] LABS: Glucose,Whole Blood 256 mg/dL (75-99)
--- NOTE | 2020-04-01 13:30 | P.PN ---
Subjective Progress Note Date: 04/01/20 Elza Avery, is an 80-year-old female with known history of chronic kidney disease stage IV who was recently admitted to [facility] due to acute diastolic congestive heart failure exacerbation, she was [facility] 10 was transferred to [facility] the [facility] for rehabilitation, patient did well in regard to her shortness of breath which has improved significantly, she is still having lower extremity edema, however kidney function worsened during her stay at [facility] on the [place], her last creatinine at [facility] was 4.5, a telemedicine visit was done with Dr. Roland oil recovery unit operator who advised that patient should be transferred to the hospital. Patient was seen and examined on the medical floor she is alert and oriented 3 in no apparent distress she is complaining of bilateral lower extremity edema, there is no shortness of breath at rest but she has some shortness of breath with activity otherwise she denies any complaints there is no fever or chills no headache or dizziness no chest pain no cough no nausea or vomiting no abdominal pain no diarrhea no burning was urination no frequency or urgency and no hematuria. On 03/29/2020 patient was seen and examined on the medical floor, she is alert and oriented 3 in no apparent distress there is no fever or chills no headache or dizziness no chest pain no shortness of breath no cough no nausea or vomiting no abdominal pain no diarrhea no burning with urination no frequency no hematuria she is still complaining of bilateral lower extremity swelling she is complaining of right foot pain and swelling and discoloration and complaining of mild shortness of breath with activity On 03/30/2020 patient was seen and examined on the medical floor, she is alert and oriented 3 in no distress, she underwent right subclavian catheter placement for dialysis this morning, there is no fever or chills no headache or dizziness no chest pain no shortness of breath no cough no nausea or vomiting no abdominal pain no diarrhea no blood in the stools no burning with urination no frequency or urgency and no hematuria On 03/31/2020 patient was seen and examined on the medical floor she is alert and oriented 3 she underwent her first dialysis session today she had 2.5 L removed better she has less shortness of breath there is no fever or chills no headache or dizziness no chest pain no shortness of breath no cough no nausea or vomiting no abdominal pain no diarrhea no burning with urination no frequency or urgency and no hematuria On 04/01/2020 patient was seen and examined on the medical floor she is undergoing hemodialysis at this time. She is alert and oriented 3 in no apparent distress shortness of breath with activity has improved since yesterday, lower extremity edema has improved, there is no fever or chills no headache or dizziness no chest pain no shortness of breath no cough no nausea or vomiting no abdominal pain no diarrhea no burning with urination no frequency or urgency and no hematuria. Objective - Vital Signs Vital signs: Vital Signs Temp 98.1 F 04/01/20 12:00 Pulse 69 04/01/20 12:00 Resp 20 04/01/20 12:00 BP 90/44 04/01/20 13:01 Pulse Ox 97 04/01/20 12:00 Intake & Output 03/31/20 04/01/20 04/01/20 18:59 06:59 18:59 Intake Total 780 Output Total 2500 Balance -1720 Weight 99 kg Intake: Oral 780 Output: Hemodialysis 2500 Other: # Voids 0 1 - Exam In general patient is alert and oriented 3 in no apparent distress HEENT head normocephalic and atraumatic Neck is supple no JVD no goiter no lymphadenopathy Chest exam reveals a few scattered rhonchi no wheezing Cardiac exam reveals regular heart sounds S1 and S2 no gallops no murmurs Abdomen is soft nontender no organomegaly with normal bowel sounds Extremity exam reveals 2+ edema no cyanosis or clubbing Neurological examination reveals no gross focal deficits - Labs CBC & Chem 7: 04/01/20 05:52 04/01/20 05:52 Labs: Abnormal Lab Results - Last 24 Hours (Table) 03/31/20 03/31/20 04/01/20 Range/Units 16:58 21:39 05:52 RBC 2.38 L (3.80-5.40) m/uL Hgb 7.0 L (11.4-16.0) gm/dL Hct 21.6 L (34.0-46.0) % Plt Count 124 L (150-450) k/uL Chloride (98-107) mmol/L BUN (7-17) mg/dL Creatinine (0.52-1.04) mg/dL Glucose (74-99) mg/dL POC Glucose (mg/dL) 137 H 160 H (75-99) mg/dL Calcium (8.4-10.2) mg/dL Total Protein (6.3-8.2) g/dL Albumin (3.5-5.0) g/dL 04/01/20 04/01/20 04/01/20 Range/Units 05:52 06:02 09:12 RBC (3.80-5.40) m/uL Hgb (11.4-16.0) gm/dL Hct (34.0-46.0) % Plt Count (150-450) k/uL Chloride 111 H (98-107) mmol/L BUN 50 H (7-17) mg/dL Creatinine 2.14 H (0.52-1.04) mg/dL Glucose 111 H (74-99) mg/dL POC Glucose (mg/dL) 126 H 216 H (75-99) mg/dL Calcium 8.0 L (8.4-10.2) mg/dL Total Protein 4.7 L (6.3-8.2) g/dL Albumin 2.6 L (3.5-5.0) g/dL 04/01/20 Range/Units 11:52 RBC (3.80-5.40) m/uL Hgb (11.4-16.0) gm/dL Hct (34.0-46.0) % Plt Count (150-450) k/uL Chloride (98-107) mmol/L BUN (7-17) mg/dL Creatinine (0.52-1.04) mg/dL Glucose (74-99) mg/dL POC Glucose (mg/dL) 256 H (75-99) mg/dL Calcium (8.4-10.2) mg/dL Total Protein (6.3-8.2) g/dL Albumin (3.5-5.0) g/dL Assessment and Plan Plan: 1. Acute kidney failure 2. Chronic kidney disease stage IV, with end-stage renal disease patient started on hemodialysis today 3. Chronic diastolic congestive heart failure, last echo done in November 2019 revealed ejection fraction of 50-55% 4. Underlying history of hypertension 5. Underlying history of anemia 6. Underlying history of hyperlipidemia maintained on Lipitor 7. Right foot pain and swelling, possible cellulitis with abscess patient was started on IV Ancef and infectious disease consultation was requested 8. Elevated troponin levels cardiology consultation was requested 9. Underlying history of insulin-dependent diabetes Shaun's At this time patient is clinically stable Medications reviewed Patient is undergoing hemodialysis at this time this is her third session during this admission Possible discharge to home tomorrow if stable, She will have dialysis Friday and Friday as outpatient
[2020-04-01 14:49] LABS: Glucose,Whole Blood 121 mg/dL (75-99)
--- NOTE | 2020-04-01 16:41 | P.PN ---
Subjective This is Pattie Avendano PA-C dictating a progress note on this patient The patient was interviewed and examined by me as well as by Dr. Vasquez Case discussed with Dr. Vasquez and he agrees with the plan of care HPI/interval history Patient is an 80-year-old female with a history of diabetes, hypertension, sleep apnea, thyroid disorder, CHF, CAD status post CABG, status post permanent pacemaker implantation who presented from [facility] due to abnormal lab, worsening renal function. She was admitted for further evaluation and treatment. Nephrology has evaluated the patient and initiated renal replacement therapy. Blood pressure medications were reduced by nephrology yesterday. Blood pressure remains well-controlled. Patient seen and examined resting in bed, currently receiving hemodialysis. Denies any shortness of breath, chest pain, dizziness. EXAMINATION Patient is afebrile, pulse in the 60s, respirations 20, blood pressure 111/41, oxygen saturation 99% on room air Patient seen and examined resting in bed in no acute distress Lungs are clear to auscultation bilaterally Heart is regular, soft systolic murmur Mild lower extremity edema bilaterally REVIEW OF LABS, ECG WBC 4.7, hemoglobin 7.0, platelets 124, potassium 4.0, BUN 50, creatinine 2.14 IMPRESSION / ASSESSMENT: #1 ANABEL on CKD, nephrology following, on dialysis #2 chronic CHF secondary to systolic dysfunction, last echocardiogram shows EF low normal at 50-55% , stable from a heart failure symptoms standpoint #3 CAD status post CABG #4 abnormal troponins in the setting of worsening renal function, patient denies any symptoms of chest pain #5 diabetes #6 hypertension blood pressure has improved with hemodialysis #7 sleep apnea #8 status post permanent pacemaker implantation #9 right foot pain, infectious disease following for possible cellulitis PLAN: Continue current antihypertensive regimen Continue aspirin and statins Cardiac standpoint continue the current cardiac medication regimen and we will sign off at this time, patient should follow-up with her primary chancery clerk after discharge Objective - Vital Signs Vital signs: Vital Signs Temp 98.3 F 04/01/20 16:00 Pulse 65 04/01/20 16:00 Resp 20 04/01/20 16:00 BP 111/41 04/01/20 16:22 Pulse Ox 99 04/01/20 16:00 Intake & Output 03/31/20 04/01/20 04/01/20 18:59 06:59 18:59 Intake Total 780 452 Output Total 2500 Balance -1720 452 Weight 99 kg Intake: Oral 780 452 Output: Hemodialysis 2500 Other: # Voids 0 1 - Labs CBC & Chem 7: 04/01/20 05:52 04/01/20 05:52 Labs: Abnormal Lab Results - Last 24 Hours (Table) 03/31/20 03/31/20 04/01/20 Range/Units 16:58 21:39 05:52 RBC 2.38 L (3.80-5.40) m/uL Hgb 7.0 L (11.4-16.0) gm/dL Hct 21.6 L (34.0-46.0) % Plt Count 124 L (150-450) k/uL Chloride (98-107) mmol/L BUN (7-17) mg/dL Creatinine (0.52-1.04) mg/dL Glucose (74-99) mg/dL POC Glucose (mg/dL) 137 H 160 H (75-99) mg/dL Calcium (8.4-10.2) mg/dL Total Protein (6.3-8.2) g/dL Albumin (3.5-5.0) g/dL 04/01/20 04/01/20 04/01/20 Range/Units 05:52 06:02 09:12 RBC (3.80-5.40) m/uL Hgb (11.4-16.0) gm/dL Hct (34.0-46.0) % Plt Count (150-450) k/uL Chloride 111 H (98-107) mmol/L BUN 50 H (7-17) mg/dL Creatinine 2.14 H (0.52-1.04) mg/dL Glucose 111 H (74-99) mg/dL POC Glucose (mg/dL) 126 H 216 H (75-99) mg/dL Calcium 8.0 L (8.4-10.2) mg/dL Total Protein 4.7 L (6.3-8.2) g/dL Albumin 2.6 L (3.5-5.0) g/dL 04/01/20 04/01/20 Range/Units 11:52 14:47 RBC (3.80-5.40) m/uL Hgb (11.4-16.0) gm/dL Hct (34.0-46.0) % Plt Count (150-450) k/uL Chloride (98-107) mmol/L BUN (7-17) mg/dL Creatinine (0.52-1.04) mg/dL Glucose (74-99) mg/dL POC Glucose (mg/dL) 256 H 121 H (75-99) mg/dL Calcium (8.4-10.2) mg/dL Total Protein (6.3-8.2) g/dL Albumin (3.5-5.0) g/dL
--- NOTE | 2020-04-01 16:41 | PN ---
PROGRESS NOTE DATE OF SERVICE: 04/01/2020 REASON FOR FOLLOWUP: Right foot cellulitis. INTERVAL HISTORY: Patient is currently afebrile. The patient is breathing comfortably. Denies having any chest pain. No shortness of breath or cough. No nausea, no vomiting. No abdominal pain or any worsening pain in the right foot. PHYSICAL EXAMINATION: Blood pressure is 140/60 with a pulse of 69, temperature 98.1, she is 97% on room air. General description is an elderly female lying in bed in no distress. Respiratory system: Unlabored breathing, clear to auscultation anteriorly. Heart S1, S2. Regular rate and rhythm. Abdomen soft, no tenderness. Right foot did have a bruise, swelling persists. No significant redness or drainage. LABS: Hemoglobin 7, white count 4.7, BUN of 50, creatinine is 2.14. DIAGNOSTIC IMPRESSION AND PLAN: Patient with right foot swelling and redness with more features of a bruise, underlying cellulitis not entirely excluded. Patient is currently covered with cefazolin, finish therapy short course of oral Keflex along with an Yao wrap to keep the swelling down. Continue supportive care. MMODL / IJN: [id number] /
[2020-04-01 17:39] LABS: Glucose,Whole Blood 117 mg/dL (75-99)
[2020-04-01 19:08] LABS: Glucose,Whole Blood 156 mg/dL (75-99)
[2020-04-01] MEDS: INSULIN DETEMIR (LEVEMIR) 100 UNIT/ML SYR SQ SCH (20:33)
[2020-04-01] MEDS: ATORVASTATIN 40 MG TAB PO SCH (20:34)
[2020-04-01 20:49] LABS: Glucose,Whole Blood 148 mg/dL (75-99)
[2020-04-01] MEDS: NICOTINE 14MG/24HR PATCH TRANSDERM SCH (21:07)
[2020-04-01] MEDS: TEMAZEPAM 15 MG CAP PO SCH (22:04)
[2020-04-02 06:21] LABS: HCT 22.7 % (34.0-46.0); HGB 7.4 gm/dL (11.4-16.0); Hypochromasia Slight; MCHC 32.6 g/dL (31.0-37.0); Mean Platelet Volume 8.8; Platelet Count 144 k/uL (150-450); RBC 2.47 m/uL (3.80-5.40); RDW 15.4 % (11.5-15.5); WBC 6.3 k/uL (3.8-10.6)
[2020-04-02 06:29] LABS: Glucose,Whole Blood 90 mg/dL (75-99)
[2020-04-02 06:33] LABS: ALT <6 U/L (4-34); AST 18 U/L (14-36); African American GFR (CKD) 21 (>60 ml/min/1.73 sqM); Albumin 2.6 g/dL (3.5-5.0); Alkaline Phosphatase 54 U/L (38-126); Anion Gap 7 mmol/L; Blood Urea Nitrogen 51 mg/dL (7-17); Calcium 7.9 mg/dL (8.4-10.2); Carbon Dioxide 23 mmol/L (22-30); Chloride 108 mmol/L (98-107); Glucose 80 mg/dL (74-99); Non-African American GFR(CKD) 19 (>60 ml/min/1.73 sqM); Potassium 4.1 mmol/L (3.5-5.1); Sodium 138 mmol/L (137-145); Total Bilirubin 0.3 mg/dL (0.2-1.3); Total Protein 4.8 g/dL (6.3-8.2)
[2020-04-02] MEDS: INSULIN ASPART (NovoLOG) 100 UNIT/ML VIAL SQ SCH ×3 (06:46→12:51)
[2020-04-02 08:13] LABS: Basophils # (M) 0.06 k/uL (0-0.2); Eosinophils # (M) 0.13 k/uL (0-0.7); Lymphocytes # (M) 1.45 k/uL (1.0-4.8); Monocytes # (M) 0.57 k/uL (0-1.0); Neutrophils % (M) 65 %; Nucleated Red Blood Cells 0 /100 WBC (0-0); Total Cells Counted 100
[2020-04-02 08:14] LABS: Poikilocytosis (M) Present
[2020-04-02] MEDS: ISOSORBIDE MONONITRATE ER 30 MG TAB.ER.24H PO SCH (09:15)
[2020-04-02] MEDS: SODIUM FERRIC GLUCONAT-SUCROSE 125 MG in SODIUM CHLORIDE 0.9% 100 ML IVPB SCH (09:15)
[2020-04-02] MEDS: ASPIRIN 81 MG PO SCH (09:15)
[2020-04-02] MEDS: CLOPIDOGREL 75 MG TAB PO SCH (09:15)
[2020-04-02 09:16] LABS: Glucose,Whole Blood 243 mg/dL (75-99)
[2020-04-02] MEDS: amLODIPine 2.5 MG TAB PO SCH (09:16)
[2020-04-02] MEDS: LOSARTAN 50 MG TAB PO SCH (10:26)
[2020-04-02] MEDS: carvediloL 6.25 MG TAB PO SCH (10:26)
[2020-04-02] MEDS: hydrALAZINE HCL 50 MG TAB PO SCH (10:26)
[2020-04-02 10:42] VITALS: RESP 20; TEMP 98.8
--- NOTE | 2020-04-02 10:57 | PN ---
PROGRESS NOTE Patient is seen for followup for acute kidney injury, currently maintained on hemodialysis. She was admitted with severe volume overload initially and then this admission was mainly prerenal secondary to over-diuresis. Patient remains short of breath. Although her renal function has started to improve, but given the repeated admissions and persistent shortness of breath, patient was started on dialysis. She states she is feeling much better. Her blood pressure was actually low last night. It had dropped into the 80s, currently improved. Antihypertensive medications have been decreased. The patient is set up for dialysis on a Friday, Friday, Friday schedule at [place]. PHYSICAL EXAMINATION: On examination, blood pressure was 123/62, heart rate 63 per minute, she is afebrile. Examination of the heart S1, S2. Examination of the lungs: Decreased breath sounds at bases. Abdomen is soft, nontender. Examination of lower extremities shows much improved edema. COMPUTATIONAL THEORY SCIENTIST exam is grossly intact. ASSESSMENT: 1. Acute kidney injury, mostly cardiorenal, currently hemodialysis dependent. 2. Hypertension. Blood pressure is now low post ultrafiltration and improvement in volume status. We have had 6.5 L taken off in the last 3 days. The patient will be maintained on a Friday, Friday, Friday schedule as outpatient. 3. Chronic kidney disease stage 4. Baseline creatinine 2.5 prior to this admission, mainly cardiorenal and nephrosclerosis. 4. Generalized debility. 5. Diastolic heart failure. 6. Anemia, maintained on IV iron and Aranesp. PLAN: SENAIT Cramer and patient is advised to monitor her blood pressure at home. She may not need as much antihypertensive medication. She will most likely be able to come off the hydralazine as well. I will leave the Cozaar on for now if she is able to tolerate it. MMODL / IJN: [id number] /
[2020-04-02 12:52] LABS: Glucose,Whole Blood 115 mg/dL (75-99)
--- NOTE | 2020-04-02 13:58 | P.DS ---
Providers Date of admission: 03/29/20 20:03 Expected date of discharge: 04/02/20 Attending physician: Lona Arias Consults: 03/27/20 18:04 Consult Physician Urgent Consulting Provider: Nancy Roland Consult Reason/Comments: ngoc/ckd Do you want consulting provider notified?: Yes 03/27/20 20:08 Consult Physician Urgent Consulting Provider: Nancy Roland Consult Reason/Comments: Abnormal labs Do you want consulting provider notified?: Yes 03/28/20 10:56 Consult Physician Routine Consulting Provider: Shandra Noble Consult Reason/Comments: elevated troponin Do you want consulting provider notified?: Yes 03/28/20 14:03 Consult Physician Routine Consulting Provider: Shaorn Do Consult Reason/Comments: R foot infection Do you want consulting provider notified?: Yes 03/29/20 12:08 Consult Physician Urgent Consulting Provider: Jorge A Goins Consult Reason/Comments: diaylsis cath Do you want consulting provider notified?: Yes Primary care physician: Carissa Ward [facility] Course: Diagnosis on discharge: 1. Acute kidney failure 2. Chronic kidney disease stage IV, with end-stage renal disease patient started on hemodialysis today 3. Chronic diastolic congestive heart failure, last echo done in November 2019 revealed ejection fraction of 50-55% 4. Underlying history of hypertension 5. Underlying history of anemia 6. Underlying history of hyperlipidemia maintained on Lipitor 7. Right foot pain and swelling, possible cellulitis with abscess patient was started on IV Ancef and infectious disease consultation was requested 8. Elevated troponin levels cardiology consultation was requested 9. Underlying history of insulin-dependent diabetes mellitus 10. Episodes of hypotension post dialysis on 04/01/2020 requiring holding off blood pressure medications. At this time blood pressure medications are being adjusted, Norvasc was discontinued, hydralazine was cut down to 50 mg 3 times a day, Coreg was cut down to 6.25 mg twice a day, and Cozaar was cut down to 50 mg once daily, patient was instructed to monitor blood pressure closely, and to hold blood pressure medications if systolic blood pressure is below 100. Hospital course: Elza Avery, is an 80-year-old female with known history of chronic kidney disease stage IV who was recently admitted to [facility] due to acute diastolic congestive heart failure exacerbation, she was [facility] eyes 10 was transferred to [facility] on the [facility] for rehabilitation, patient did well in regard to her shortness of breath which has improved significantly, she is still having lower extremity edema, however kidney function worsened during her stay at [facility] on the [place], her last creatinine at [facility] was 4.5, a telemedicine visit was done with Dr. Roland manager domestic who advised that patient should be transferred to the hospital. Patient was seen and examined on the medical floor she is alert and oriented 3 in no apparent distress she is complaining of bilateral lower extremity edema, there is no shortness of breath at rest but she has some shortness of breath with activity otherwise she denies any complaints there is no fever or chills no headache or dizziness no chest pain no cough no nausea or vomiting no abdominal pain no diarrhea no burning was urination no frequency or urgency and no h ematuria. On 03/29/2020 patient was seen and examined on the medical floor, she is alert and oriented 3 in no apparent distress there is no fever or chills no headache or dizziness no chest pain no shortness of breath no cough no nausea or vomiting no abdominal pain no diarrhea no burning with urination no frequency no hematuria she is still complaining of bilateral lower extremity swelling she is complaining of right foot pain and swelling and discoloration and complaining of mild shortness of breath with activity On 03/30/2020 patient was seen and examined on the medical floor, she is alert and oriented 3 in no distress, she underwent right subclavian catheter placement for dialysis this morning, there is no fever or chills no headache or dizziness no chest pain no shortness of breath no cough no nausea or vomiting no abdominal pain no diarrhea no blood in the stools no burning with urination no frequency or urgency and no hematuria On 03/31/2020 patient was seen and examined on the medical floor she is alert and oriented 3 she underwent her first dialysis session today she had 2.5 L removed better she has less shortness of breath there is no fever or chills no headache or dizziness no chest pain no shortness of breath no cough no nausea or vomiting no abdominal pain no diarrhea no burning with urination no frequency or urgency and no hematuria On 04/01/2020 patient was seen and examined on the medical floor she is undergoing hemodialysis at this time. She is alert and oriented 3 in no apparent distress shortness of breath with activity has improved since yesterd ay, lower extremity edema has improved, there is no fever or chills no headache or dizziness no chest pain no shortness of breath no cough no nausea or vomiting no abdominal pain no diarrhea no burning with urination no frequency or urgency and no hematuria. On 04/02/2020 patient was seen and examined on the medical floor she is alert and oriented 3 in no apparent distress there is no fever or chills no headache or dizziness no chest pain no shortness of breath no cough no nausea or vomiting no abdominal pain no diarrhea no burning with urination no frequency or urgency and no hematuria at this time is stable she will be discharged home she will continue hemodialysis on Friday and Friday as outpatient Patient Condition at Discharge: Stable Plan - Discharge Summary Discharge Rx Participant: No New Discharge Prescriptions: New hydrALAZINE HCL [Apresoline] 50 mg PO TID@0900,1600,2200 tab carvediloL [Coreg] 6.25 mg PO BID@0900,1700 tab Losartan [Cozaar] 50 mg PO DAILY@0900 tab Continue Simvastatin [Zocor] 5 mg PO HS@2100 Insulin Lispro [humaLOG Kwikpen] 10 unit SQ AC-TID Aspirin EC [Ecotrin Low Dose] 81 mg PO DAILY@0900 guaiFENesin-Coden 100-10MG/5ML [Robitussin AC] 10 ml PO Q6H PRN ml PRN Reason: Cough Insulin Glargine,Hum.rec.anlog [Basaglar Kwikpen U-100] 20 unit SQ HS@2100 Isosorbide Mononitrate ER [Imdur] 30 mg PO DAILY@0900 Nicotine 14Mg/24Hr Patch [Habitrol] 1 patch TRANSDERM HS@2100 Clopidogrel [Plavix] 75 mg PO DAILY@0900 Temazepam [Restoril] 30 mg PO HS@2100 Discontinued Losartan Potassium 100 mg PO DAILY@0900 hydrALAZINE HCL [Apresoline] 100 mg PO TID@0900,1600,2200 Insulin Lispro [humaLOG Kwikpen] See Protocol SQ ACHS metOLazone [Zaroxolyn] 10 mg PO DAILY@0900 amLODIPine [Norvasc] 2.5 mg PO DAILY@0900 Bumetanide [BUMEX] 2 mg PO BID@0900,1700 carvediloL [Coreg*] 12.5 mg PO BID@0900,1700 Discharge Medication List Simvastatin [Zocor] 5 mg PO HS@209911/29/17 [History] Insulin Lispro [humaLOG Kwikpen] 10 unit SQ AC-TID 02/14/20 [History] Aspirin EC [Ecotrin Low Dose] 81 mg PO DAILY@0903/09/20 [History] guaiFENesin-Coden 100-10MG/5ML [Robitussin AC] 10 ml PO Q6H PRN ml 03/17/20 [Rx] Clopidogrel [Plavix] 75 mg PO DAILY@89903/27/20 [History] Insulin Glargine,Hum.rec.anlog [Basaglar Kwikpen U-100] 20 unit SQ HS@209903/27/20 [History] Isosorbide Mononitrate ER [Imdur] 30 mg PO DAILY@89903/27/20 [History] Nicotine 14Mg/24Hr Patch [Habitrol] 1 patch TRANSDERM HS@209903/27/20 [History] Temazepam [Restoril] 30 mg PO HS@209903/27/20 [History] Losartan [Cozaar] 50 mg PO DAILY@0900 tab 04/02/20 [Rx] carvediloL [Coreg] 6.25 mg PO BID@0900,1700 tab 04/02/20 [Rx] hydrALAZINE HCL [Apresoline] 50 mg PO TID@0900,1600,2200 tab 04/02/20 [Rx] Follow up Appointment(s)/Referral(s): Carissa Ward MD [Primary Care Provider] - 1-2 days [facility] [NON-STAFF] [facility] [place] [facility] - 04/03/20 11:30 am (Starting Friday04/03/2020 plan to start at 11:30AM time for the first week and then your permanent time will be 2:20PM starting 04/10/2020.)
[2020-04-02 14:12] VITALS: BP 112/75; PULSE 78
== END 2020-04-02 16:19 | disposition home health service (06) | DRG 683 ==
LOC: EC 15:52 → 3SCARD 18:03 → OBSVTOIN 03-29 20:03
PROVIDERS: ADMIT Internal Medicine; ATTEND Internal Medicine
PROC: 02HV33Z Insertion of Infusion Device into Superior Vena Cava, Percutaneous Approach (ICD-10-PCS; principal; 2020-03-30 07:30)
PROC: 5A1D70Z Performance of Urinary Filtration, Intermittent, Less than 6 Hours Per Day (ICD-10-PCS; 2020-03-30 07:30)
DX: N17.9 Acute kidney failure, unspecified (principal); I13.0 Hypertensive heart and chronic kidney disease with heart failure and stage 1 through stage 4 chronic kidney disease, or unspecified chronic kidney disease; I50.42 Chronic combined systolic (congestive) and diastolic (congestive) heart failure; L03.115 Cellulitis of right lower limb; E87.2 Acidosis; I42.9 Cardiomyopathy, unspecified; N18.6 End stage renal disease; I95.3 Hypotension of hemodialysis; G47.33 Obstructive sleep apnea (adult) (pediatric); E78.5 Hyperlipidemia, unspecified; J44.9 Chronic obstructive pulmonary disease, unspecified; Z11.59 Encounter for screening for other viral diseases; E66.9 Obesity, unspecified; E03.9 Hypothyroidism, unspecified; E11.22 Type 2 diabetes mellitus with diabetic chronic kidney disease; D63.1 Anemia in chronic kidney disease; I25.10 Atherosclerotic heart disease of native coronary artery without angina pectoris; T50.2X5A Adverse effect of carbonic-anhydrase inhibitors, benzothiadiazides and other diuretics, initial encounter; R53.81 Other malaise; Z68.35 Body mass index [BMI] 35.0-35.9, adult; Z79.02 Long term (current) use of antithrombotics/antiplatelets; Z79.4 Long term (current) use of insulin; Z79.82 Long term (current) use of aspirin; Z79.899 Other long term (current) drug therapy; Z90.710 Acquired absence of both cervix and uterus; Z95.0 Presence of cardiac pacemaker; Z95.1 Presence of aortocoronary bypass graft; Z99.2 Dependence on renal dialysis; Z98.42 Cataract extraction status, left eye; Z98.84 Bariatric surgery status; Z98.890 Other specified postprocedural states; Z82.49 Family history of ischemic heart disease and other diseases of the circulatory system; Z80.8 Family history of malignant neoplasm of other organs or systems; Z88.2 Allergy status to sulfonamides; Z80.9 Family history of malignant neoplasm, unspecified; Z88.8 Allergy status to other drugs, medicaments and biological substances; Z90.49 Acquired absence of other specified parts of digestive tract; Z86.19 Personal history of other infectious and parasitic diseases; Z87.891 Personal history of nicotine dependence
CPT/HCPCS: 36415; 36558; 71045; 71046; 76937; 77001; 80048; 80053; 80074; 81001; 82550; 83540; 83550; 83605; 83735; 83880; 84484; 85025; 85610; 85730; 86704; 86706; 90935; 93005; 99284

== ENCOUNTER 2020-11-24 14:53 | Inpatient (IN) | payer MEDICARE, BC ==
[2020-11-24 16:22] LABS: Basophils % (A) 0 %; Eosinophils # (A) 0.3 k/uL (0-0.7); Eosinophils % (A) 5 %; HCT 30.6 % (34.0-46.0); HGB 9.5 gm/dL (11.4-16.0); Hypochromasia Moderate; Lymphocytes # (A) 1.1 k/uL (1.0-4.8); Lymphocytes % (A) 19 %; MCH 28.5 pg (25.0-35.0); Mean Platelet Volume 9.4; Monocytes # (A) 0.9 k/uL (0-1.0); Monocytes % (A) 15 %; Neutrophils # (A) 3.4 k/uL (1.3-7.7); Neutrophils % (A) 56 %; Platelet Count 137 k/uL (150-450); RBC 3.33 m/uL (3.80-5.40)
--- NOTE | 2020-11-24 16:27 | XR ---
EXAMINATION TYPE: XR chest 2V DATE OF EXAM: 11/24/2020 COMPARISON: 03/30/2020 INDICATION: Difficulty breathing TECHNIQUE: Single frontal view of the chest is obtained. FINDINGS: The heart size is the prominent. Pacemaker is present. The pulmonary vasculature is upper limits of normal. Small bilateral pleural effusions are present. IMPRESSION: 1. Interval development of small pleural effusions. 2. Cardiomegaly. There may be some mild volume overload vascular prominence.
[2020-11-24 16:48] LABS: Albumin 3.6 g/dL (3.5-5.0); INR 1.1 (<1.2); Partial Thromboplastin Time 21.4 sec (22.0-30.0); Prothrombin Time 11.3 sec (9.0-12.0); Total Bilirubin 0.5 mg/dL (0.2-1.3); Total Protein 6.4 g/dL (6.3-8.2)
[2020-11-24] MEDS ORDERED: FUROSEMIDE 10 MG/ML 10 ML VIAL IV STA (17:43)
[2020-11-24] MEDS ORDERED: NALOXONE 0.4 MG/ML 1 ML VIAL IV PRN (17:49)
--- NOTE | 2020-11-24 17:49 | ED ---
SOB HPI - General Chief Complaint: Shortness of Breath Stated Complaint: Diff Breathing Source: patient Mode of arrival: wheelchair Limitations: no limitations - History of Present Illness Initial Comments: Patient is a 80-year-old female past medical history of COPD on 4 L home O2, CHF with diastolic heart failure, diabetes who presents emergency Department with reported weight gain and shortness of breath. Patient admits increased swelling in her bilateral lower extremities for the past month and a half. Also admits to slow progressive weight gain and shortness of breath. She has a pulse ox at home and states that when she ambulates to the bathroom her pulse ox will go down to 82. She takes torsemide. does report that she has missed a couple of doses because she does not like to get up in the middle the night to use the restroom. She denies any chest pain. No fevers, chills or cough. Patient is Covid vaccinated. No abdominal pain. No calf pain. No history of DVT or PE. No other alleviating, precipitating or modifying factors - Related Data Home Medications Medication Instructions Recorded Confirmed Simvastatin [Zocor] 5 mg PO HS 11/29/17 11/24/20 Insulin Lispro [humaLOG Kwikpen] 10 unit SQ AC-TID 02/14/20 11/24/20 Aspirin EC [Ecotrin Low Dose] 81 mg PO DAILY 03/09/20 11/24/20 Clopidogrel [Plavix] 75 mg PO DAILY 03/27/20 11/24/20 Ergocalciferol (Vitamin D2) 1,250 mcg PO BONDS 11/17/20 11/24/20 [Vitamin D2 (50,000 Iu)] Mirtazapine 15 mg PO DAILY 11/17/20 11/24/20 Torsemide [Demadex] 20 mg PO DAILY 11/17/20 11/24/20 Albuterol Nebulized [Ventolin 2.5 mg INHALATION RT-QID PRN 11/24/20 11/24/20 Nebulized] Insulin Detemir [Levemir Flextouch] 20 - 25 units SQ HS 11/24/20 11/24/20 Temazepam 30 mg PO HS 11/24/20 11/24/20 carvediloL [Coreg] 6.25 mg PO BID 11/24/20 11/24/20 Allergies Allergy/AdvReac Type Severity Reaction Status Date / Time Sulfa (Sulfonamide Allergy Unknown Verified 11/24/20 17:23 Antibiotics) sulfamethoxazole Allergy Unknown Verified 11/24/20 17:23 [From Bactrim] trimethoprim [From Bactrim] Allergy Unknown Verified 11/24/20 17:23 Review of Systems ROS Statement: Those systems with pertinent positive or pertinent negative responses have been documented in the HPI. ROS Other: All systems not noted in ROS Statement are negative. Past Medical History Past Medical History: Diabetes Mellitus, Hypertension, Musculoskeletal Disorder, Sleep Apnea/CPAP/BIPAP, Thyroid Disorder Additional Past Medical History / Comment(s): COPD, CHF with diastolic heart failure, hypertension, chronic kidney disease stage III, coronary artery disease with previous bypass surgery, history of pacemaker insertion 2014, diabetes mellitus, hypertension, obstructive sleep apnea, thyroid nodules, hyperlipidemia, history of smoking in the order of [id number] History of Any Multi-Drug Resistant Organisms: ESBL Date of last positivie culture/infection: 10/18/19 MDRO Source:: ESBL URINE Past Surgical History: Appendectomy, Back Surgery, Bariatric Surgery, Coronary Bypass/CABG, Heart Catheterization, Hysterectomy, Pacemaker Additional Past Surgical History / Comment(s): LAP BAND, CATARACT LEFT EYE, NEUROMA ON FOOT, KNEE ARTHROSCOPY, PACEMAKER ([employer] 04/18/2015) Partial thyroidectomy 1999 Past Anesthesia/Blood Transfusion Reactions: No Reported Reaction Type of Cardiac Device: Permanent Pacemaker Device Placement Date:: 04/18/2015 [employer] Past Psychological History: No Psychological Hx Reported Smoking Status: Current every day smoker Past Alcohol Use History: None Reported Past Drug Use History: None Reported - Past Family History Son(s) Family Medical History: Cancer Additional Family Medical History / Comment(s): MELANOMA Brother(s) Family Medical History: Cancer Father History Unknown: Yes Family Medical History: Cancer Mother Family Medical History: Coronary Artery Disease (CAD) General Exam Limitations: no limitations General appearance: alert, in no apparent distress Head exam: Present: atraumatic, normocephalic, normal inspection Eye exam: Present: normal appearance, PERRL, EOMI. Absent: scleral icterus, conjunctival injection, periorbital swelling ENT exam: Present: normal exam, mucous membranes moist Neck exam: Present: normal inspection. Absent: tenderness, meningismus, lymphadenopathy Respiratory exam: Present: rales, decreased breath sounds. Absent: respiratory distress, wheezes, rhonchi, stridor Cardiovascular Exam: Present: regular rate, normal rhythm, normal heart sounds. Absent: systolic murmur, diastolic murmur, rubs, gallop, clicks GI/Abdominal exam: Present: soft, normal bowel sounds. Absent: distended, tenderness, guarding, rebound, rigid Extremities exam: Present: full ROM, normal capillary refill, pedal edema. Absent: tenderness, joint swelling, calf tenderness Back exam: Present: normal inspection Neurological exam: Present: alert, oriented X3, CN II-XII intact Psychiatric exam: Present: normal affect, normal mood Skin exam: Present: warm, dry, intact, normal color. Absent: rash Course Vital Signs 11/24/20 11/24/20 11/24/20 15:02 15:35 17:01 Temperature 97.9 F Pulse Rate 60 60 Pulse Rate [ Pulse Oximetery ] Respiratory 18 24 20 Rate Blood Pressure 164/67 153/67 Blood Pressure [Right Arm] O2 Sat by Pulse 93 L 100 Oximetry 11/24/20 18:25 Temperature 98.1 F Pulse Rate Pulse Rate [ 64 Pulse Oximetery ] Respiratory 18 Rate Blood Pressure Blood Pressure 190/81 [Right Arm] O2 Sat by Pulse 100 Oximetry Medical Decision Making - Medical Decision Making Upon arrival patient is placed into room 2. A thorough history and physical exam is performed. IV is established. Laboratory studies were conducted. Patient has chronic renal failure with a creatinine of 2.6. BNP is 29,000. Chest x-ray does demonstrate interval development of small pleural effusions. M ild volume overload. Patient was given a dose of Lasix. She does see Dr. Roland. I did recommend admission for IV diuresis. Esquivel is placed. Patient will be seen by cardiology and nephrology. Patient remained in stable condition awaiting a bed - Lab Data Result diagrams: 11/29/20 08:53 11/29/20 08:53 Lab Results 11/24/20 11/24/20 11/24/20 Range/Units 15:58 15:58 15:58 WBC 6.0 (3.8-10.6) k/uL RBC 3.33 L (3.80-5.40) m/uL Hgb 9.5 L (11.4-16.0) gm/dL Hct 30.6 L (34.0-46.0) % MCV 92.0 (80.0-100.0) fL MCH 28.5 (25.0-35.0) pg MCHC 31.0 (31.0-37.0) g/dL RDW 15.0 (11.5-15.5) % Plt Count 137 L (150-450) k/uL MPV 9.4 Neutrophils % 56 % Lymphocytes % 19 % Monocytes % 15 % Eosinophils % 5 % Basophils % 0 % Neutrophils # 3.4 (1.3-7.7) k/uL Lymphocytes # 1.1 (1.0-4.8) k/uL Monocytes # 0.9 (0-1.0) k/uL Eosinophils # 0.3 (0-0.7) k/uL Basophils # 0.0 (0-0.2) k/uL Hypochromasia Moderate PT 11.3 (9.0-12.0) sec INR 1.1 (<1.2) APTT 21.4 L (22.0-30.0) sec Sodium 140 (137-145) mmol/L Potassium 5.0 (3.5-5.1) mmol/L Chloride 109 H (98-107) mmol/L Carbon Dioxide 26 (22-30) mmol/L Anion Gap 5 mmol/L BUN 72 H (7-17) mg/dL Creatinine 2.68 H (0.52-1.04) mg/dL Est GFR (CKD-EPI)AfAm 19 (>60 ml/min/1.73 sqM) Est GFR (CKD-EPI)NonAf 16 (>60 ml/min/1.73 sqM) Glucose 111 H (74-99) mg/dL Plasma Lactic Acid David (0.7-2.0) mmol/L Calcium 9.0 (8.4-10.2) mg/dL Total Bilirubin 0.5 (0.2-1.3) mg/dL AST 21 (14-36) U/L ALT 25 (4-34) U/L Alkaline Phosphatase 64 (38-126) U/L Troponin I (0.000-0.034) ng/mL NT-Pro-B Natriuret Pep pg/mL Total Protein 6.4 (6.3-8.2) g/dL Albumin 3.6 (3.5-5.0) g/dL Coronavirus (PCR) (Not Detectd) 11/24/20 11/24/20 11/24/20 Range/Units 15:58 15:58 15:58 WBC (3.8-10.6) k/uL RBC (3.80-5.40) m/uL Hgb (11.4-16.0) gm/dL Hct (34.0-46.0) % MCV (80.0-100.0) fL MCH (25.0-35.0) pg MCHC (31.0-37.0) g/dL RDW (11.5-15.5) % Plt Count (150-450) k/uL MPV Neutrophils % % Lymphocytes % % Monocytes % % Eosinophils % % Basophils % % Neutrophils # (1.3-7.7) k/uL Lymphocytes # (1.0-4.8) k/uL Monocytes # (0-1.0) k/uL Eosinophils # (0-0.7) k/uL Basophils # (0-0.2) k/uL Hypochromasia PT (9.0-12.0) sec INR (<1.2) APTT (22.0-30.0) sec Sodium (137-145) mmol/L Potassium (3.5-5.1) mmol/L Chloride (98-107) mmol/L Carbon Dioxide (22-30) mmol/L Anion Gap mmol/L BUN (7-17) mg/dL Creatinine (0.52-1.04) mg/dL Est GFR (CKD-EPI)AfAm (>60 ml/min/1.73 sqM) Est GFR (CKD-EPI)NonAf (>60 ml/min/1.73 sqM) Glucose (74-99) mg/dL Plasma Lactic Acid David 1.1 (0.7-2.0) mmol/L Calcium (8.4-10.2) mg/dL Total Bilirubin (0.2-1.3) mg/dL AST (14-36) U/L ALT (4-34) U/L Alkaline Phosphatase (38-126) U/L Troponin I 0.018 (0.000-0.034) ng/mL NT-Pro-B Natriuret Pep 22121 pg/mL Total Protein (6.3-8.2) g/dL Albumin (3.5-5.0) g/dL Coronavirus (PCR) (Not Detectd) 11/24/20 Range/Units 15:58 WBC (3.8-10.6) k/uL RBC (3.80-5.40) m/uL Hgb (11.4-16.0) gm/dL Hct (34.0-46.0) % MCV (80.0-100.0) fL MCH (25.0-35.0) pg MCHC (31.0-37.0) g/dL RDW (11.5-15.5) % Plt Count (150-450) k/uL MPV Neutrophils % % Lymphocytes % % Monocytes % % Eosinophils % % Basophils % % Neutrophils # (1.3-7.7) k/uL Lymphocytes # (1.0-4.8) k/uL Monocytes # (0-1.0) k/uL Eosinophils # (0-0.7) k/uL Basophils # (0-0.2) k/uL Hypochromasia PT (9.0-12.0) sec INR (<1.2) APTT (22.0-30.0) sec Sodium (137-145) mmol/L Potassium (3.5-5.1) mmol/L Chloride (98-107) mmol/L Carbon Dioxide (22-30) mmol/L Anion Gap mmol/L BUN (7-17) mg/dL Creatinine (0.52-1.04) mg/dL Est GFR (CKD-EPI)AfAm (>60 ml/min/1.73 sqM) Est GFR (CKD-EPI)NonAf (>60 ml/min/1.73 sqM) Glucose (74-99) mg/dL Plasma Lactic Acid David (0.7-2.0) mmol/L Calcium (8.4-10.2) mg/dL Total Bilirubin (0.2-1.3) mg/dL AST (14-36) U/L ALT (4-34) U/L Alkaline Phosphatase (38-126) U/L Troponin I (0.000-0.034) ng/mL NT-Pro-B Natriuret Pep pg/mL Total Protein (6.3-8.2) g/dL Albumin (3.5-5.0) g/dL Coronavirus (PCR) Not Detected (Not Detectd) - EKG Data EKG Comments: EKG demonstrates AV dual paced rhythm. Rate is 63. [place] interval 198. QRS 190. QTC 497. Pacemaker captures properly. Negative for sgarbossa criteria Disposition Clinical Impression: Congestive heart failure, Hx of CABG, Pleural effusion, CKD (chronic kidney disease), Chronic respiratory failure Disposition: ADMITTED IP TO THIS HOSP Condition: Serious Is patient prescribed a controlled substance at d/c from ED?: No Decision to Admit Reason: Admit from EC Decision Date: 11/24/20 Decision Time: 17:49
[2020-11-24 19:57] LABS: Glucose,Whole Blood 119 mg/dL (75-99)
[2020-11-24] MEDS ORDERED: TEMAZEPAM 30 MG CAP PO SCH (21:00)
[2020-11-24] MEDS: carvediloL 6.25 MG TAB PO SCH (22:04)
[2020-11-24] MEDS: ATORVASTATIN 10 MG TAB PO SCH (22:04)
[2020-11-24] MEDS: INSULIN DETEMIR (LEVEMIR) 100 UNIT/ML SYR SQ SCH (22:04)
[2020-11-24] MEDS: TEMAZEPAM 15 MG CAP PO SCH (22:05)
[2020-11-24] MEDS: ALBUTEROL NEBULIZED 2.5 MG/3 ML INHALATION PRN (23:41)
[2020-11-25] MEDS: carvediloL 6.25 MG TAB PO SCH (06:35)
[2020-11-25 07:18] LABS: Glucose,Whole Blood 159 mg/dL (75-99)
[2020-11-25] MEDS: INSULIN ASPART (NovoLOG) 100 UNIT/ML VIAL SQ SCH ×3 (09:11→17:26)
[2020-11-25] MEDS: MIRTAZAPINE 15 MG TAB PO SCH (09:11)
[2020-11-25] MEDS: CLOPIDOGREL 75 MG TAB PO SCH (09:11)
[2020-11-25] MEDS: FUROSEMIDE 10 MG/ML 10 ML VIAL IV SCH ×2 (09:11→21:14)
[2020-11-25] MEDS: ASPIRIN 81 MG PO SCH (09:11)
[2020-11-25 09:59] LABS: Calcium 8.5 mg/dL (8.4-10.2); Potassium 5.3 mmol/L (3.5-5.1)
[2020-11-25 10:16] LABS: Basophils % (A) 0 %; Eosinophils # (A) 0.2 k/uL (0-0.7); Eosinophils % (A) 4 %; HCT 30.6 % (34.0-46.0); HGB 9.4 gm/dL (11.4-16.0); Hypochromasia Marked; Lymphocytes # (A) 0.7 k/uL (1.0-4.8); Lymphocytes % (A) 13 %; MCH 28.5 pg (25.0-35.0); MCHC 30.5 g/dL (31.0-37.0); MCV 93.2 fL (80.0-100.0); Mean Platelet Volume 9.6; Monocytes % (A) 19 %; Neutrophils % (A) 59 %; Platelet Count 123 k/uL (150-450); RBC 3.29 m/uL (3.80-5.40); RDW 15.1 % (11.5-15.5); WBC 5.1 k/uL (3.8-10.6)
[2020-11-25] MEDS: ALBUTEROL NEBULIZED 2.5 MG/3 ML INHALATION PRN ×3 (11:07→19:31)
[2020-11-25 12:13] LABS: Glucose,Whole Blood 158 mg/dL (75-99)
--- NOTE | 2020-11-25 12:47 | P.HPIM ---
History of Present Illness H&P Date: 11/25/20 Elza Avery, is an 80-year-old female patient of Dr. Ward, who presented to [facility] emergency room with a chief complaint of shortness of breath, patient stated that she had worsening lower extremity edema and weight gain for the last 6 weeks she has a known history of diastolic congestive heart failure and history of COPD with chronic respiratory failure requiring home oxygen use, patient checks her pulse ox at home and it was down in the 80s and she decided to come to emergency room. Patient was evaluated in the emergency room her vital examination on presentation revealed a temperature of 97.9 pulse 60 respiration 18 and blood pressure 164/67 pulse ox 93% on 4 L nasal cannula, white blood count was 6.0 hemoglobin 9.5 platelet count 137, sodium 140 potassium 5.0 chloride 109 CO2 26 BUN 72 creatinine 2.68, AST and ALT within normal limits glucose 111 troponin at 0.018 BNP elevated at 29,400 coronavirus PCR was negative patient stated that she was vaccinated for Covid 19. Chest x- ray done in the emergency room revealed small bilateral pleural effusions, cardiomegaly, with evidence of fluid overload and vascular prominence, EKG done in the emergency room revealed dual paced rhythm. Patient was admitted to telemetry floor, nephrology consultation and cardiology consultation were requested. Past medical history is significant for history of coronary artery disease, history of chronic diastolic congestive heart failure, history of hypertension, history of hypothyroidism, history of chronic kidney disease, history of cardiac arrhythmia with history of pacemaker placement. On review of systems patient is complaining of cough and shortness of breath, and bilateral lower extremity swelling with weight gain otherwise she denies any complaints there is no fever or chills no headache or dizziness no chest pain no palpitation no nausea or vomiting no abdominal pain no diarrhea no blood in the stools no burning with urination no frequency or urgency and no hematuria there is no weakness or numbness in any of the extremities no change in vision speech or gait Past Medical History Past Medical History: Diabetes Mellitus, Hypertension, Musculoskeletal Disorder, Sleep Apnea/CPAP/BIPAP, Thyroid Disorder Additional Past Medical History / Comment(s): COPD, CHF with diastolic heart failure, hypertension, chronic kidney disease stage III, coronary artery disease with previous bypass surgery, history of pacemaker insertion 2014, diabetes mellitus, hypertension, obstructive sleep apnea, thyroid nodules, hyperlipidemia, history of smoking in the order of [id number] History of Any Multi-Drug Resistant Organisms: ESBL Date of last positivie culture/infection: 10/18/19 MDRO Source:: ESBL URINE Past Surgical History: Appendectomy, Back Surgery, Bariatric Surgery, Coronary Bypass/CABG, Heart Catheterization, Hysterectomy, Pacemaker Additional Past Surgical History / Comment(s): LAP BAND, CATARACT LEFT EYE, NEUROMA ON FOOT, KNEE ARTHROSCOPY, PACEMAKER ([employer] 04/18/2015) Partial thyroidectomy 2000 Past Anesthesia/Blood Transfusion Reactions: No Reported Reaction Type of Cardiac Device: Permanent Pacemaker Device Placement Date:: 04/18/2015 [employer] Past Psychological History: No Psychological Hx Reported Smoking Status: Current every day smoker Past Alcohol Use History: None Reported Past Drug Use History: None Reported - Past Family History Son(s) Family Medical History: Cancer Additional Family Medical History / Comment(s): MELANOMA Brother(s) Family Medical History: Cancer Father History Unknown: Yes Family Medical History: Cancer Mother Family Medical History: Coronary Artery Disease (CAD) Medications and Allergies Home Medications Medication Instructions Recorded Confirmed Type Simvastatin [Zocor] 5 mg PO HS 11/29/17 11/24/20 History Insulin Lispro [humaLOG Kwikpen] 10 unit SQ AC-TID 02/14/20 11/24/20 History Aspirin EC [Ecotrin Low Dose] 81 mg PO DAILY 03/09/20 11/24/20 History Clopidogrel [Plavix] 75 mg PO DAILY 03/27/20 11/24/20 History Ergocalciferol (Vitamin D2) 1,250 mcg PO BONDS 11/17/20 11/24/20 History [Vitamin D2 (50,000 Iu)] Mirtazapine 15 mg PO DAILY 11/17/20 11/24/20 History Torsemide [Demadex] 20 mg PO DAILY 11/17/20 11/24/20 History Albuterol Nebulized [Ventolin 2.5 mg INHALATION RT-QID PRN 11/24/20 11/24/20 History Nebulized] Insulin Detemir [Levemir Flextouch] 20 - 25 units SQ HS 11/24/20 11/24/20 History Temazepam 30 mg PO HS 11/24/20 11/24/20 History carvediloL [Coreg] 6.25 mg PO BID 11/24/20 11/24/20 History Allergies Allergy/AdvReac Type Severity Reaction Status Date / Time Sulfa (Sulfonamide Allergy Unknown Verified 11/24/20 17:23 Antibiotics) sulfamethoxazole Allergy Unknown Verified 11/24/20 17:23 [From Bactrim] trimethoprim [From Bactrim] Allergy Unknown Verified 11/24/20 17:23 Physical Exam Vitals: Vital Signs Temp Pulse Pulse Resp BP BP Pulse Ox 11/25/20 11:19 70 11/25/20 11:07 70 11/25/20 08:00 98.2 F 60 18 155/60 97 11/25/20 04:00 61 18 160/67 97 11/25/20 02:00 60 18 11/25/20 00:00 60 18 165/70 99 11/24/20 23:50 71 11/24/20 23:41 68 11/24/20 20:40 18 11/24/20 20:00 64 18 190/81 100 11/24/20 19:12 98.1 F 64 20 177/74 98 11/24/20 18:25 98.1 F 64 18 190/81 100 11/24/20 17:01 60 20 153/67 100 11/24/20 15:35 24 11/24/20 15:02 97.9 F 60 18 164/67 93 L Intake and Output 11/24/20 11/25/20 11/25/20 22:59 06:59 14:59 Intake Total 250 Output Total 295 700 Balance -45 -700 Intake: Oral 250 Output: Urine 295 700 Uretheral (Esquivel) 295 Other: Voiding Method Indwelling Catheter Indwelling Catheter Indwelling Catheter Weight 90.718 kg 92.9 kg In general patient is alert and oriented 3 in no apparent distress HEENT head normocephalic and atraumatic Neck is supple no JVD no goiter no lymphadenopathy Chest exam reveals a few scattered rhonchi no wheezing Cardiac exam reveals regular heart sounds S1 and S2 no gallops no murmurs Abdomen is soft nontender no organomegaly with normal bowel sounds Extremity exam reveals 2+ edema no cyanosis or clubbing Neurological examination reveals no gross focal deficit Results CBC & Chem 7: 11/25/20 08:52 11/25/20 08:52 Labs: Abnormal Lab Results - Last 24 Hours (Table) 11/24/20 11/24/20 11/24/20 Range/Units 15:58 15:58 15:58 RBC 3.33 L (3.80-5.40) m/uL Hgb 9.5 L (11.4-16.0) gm/dL Hct 30.6 L (34.0-46.0) % MCHC (31.0-37.0) g/dL Plt Count 137 L (150-450) k/uL Lymphocytes # (1.0-4.8) k/uL APTT 21.4 L (22.0-30.0) sec Potassium (3.5-5.1) mmol/L Chloride 109 H (98-107) mmol/L BUN 72 H (7-17) mg/dL Creatinine 2.68 H (0.52-1.04) mg/dL Glucose 111 H (74-99) mg/dL POC Glucose (mg/dL) (75-99) mg/dL 11/24/20 11/25/20 11/25/20 Range/Units 19:55 07:17 08:52 RBC 3.29 L (3.80-5.40) m/uL Hgb 9.4 L (11.4-16.0) gm/dL Hct 30.6 L (34.0-46.0) % MCHC 30.5 L (31.0-37.0) g/dL Plt Count 123 L (150-450) k/uL Lymphocytes # 0.7 L (1.0-4.8) k/uL APTT (22.0-30.0) sec Potassium (3.5-5.1) mmol/L Chloride (98-107) mmol/L BUN (7-17) mg/dL Creatinine (0.52-1.04) mg/dL Glucose (74-99) mg/dL POC Glucose (mg/dL) 119 H 159 H (75-99) mg/dL 11/25/20 Range/Units 08:52 RBC (3.80-5.40) m/uL Hgb (11.4-16.0) gm/dL Hct (34.0-46.0) % MCHC (31.0-37.0) g/dL Plt Count (150-450) k/uL Lymphocytes # (1.0-4.8) k/uL APTT (22.0-30.0) sec Potassium 5.3 H (3.5-5.1) mmol/L Chloride 109 H (98-107) mmol/L BUN 71 H (7-17) mg/dL Creatinine 2.56 H (0.52-1.04) mg/dL Glucose 149 H (74-99) mg/dL POC Glucose (mg/dL) (75-99) mg/dL Thrombosis Risk Factor Assmnt - Choose All That Apply Any of the Below Risk Factors Present?: No Other Risk Factors: Yes Each Risk Factor Represents 3 Points: Age 75 years or older Other congenital or acquired thrombophilia - If yes, enter type in comment: No Thrombosis Risk Factor Assessment Total Risk Factor Score: 3 Thrombosis Risk Factor Assessment Level: Moderate Risk Assessment and Plan Plan: Worsening shortness of breath multi-factorial related to acute exacerbation of diastolic congestive heart failure, with evidence of bilateral pleural effusion and underlying advanced chronic obstructive pulmonary disease with history of chronic hypoxic respiratory failure requiring home oxygen use. Evidence of anemia hemoglobin is 9.5 on presentation will check iron vitamin B12 and folate levels Underlying history of chronic kidney disease, patient is followed by Dr. Roland s he stated that last year she had to be on dialysis for several months, nephrology consultation requested Underlying history of chronic diastolic congestive heart failure will check echocardiogram Will consult cardiology Underlying history of diabetes mellitus Underlying history of hypertension Underlying history of hyperlipidemia Underlying history of coronary artery disease, maintained on Plavix and aspirin Underlying history of cardiac arrhythmia with history of pacemaker placement Underlying history of depression maintained on Mirtazapine Underlying history of chronic obstructive pulmonary disease At this time patient is admitted to telemetry floor cardiology consultation and nephrology consultation requested Patient was started on IV Lasix for diuresis Home medications reviewed and reordered Anemia workup initiated Will follow closely
--- NOTE | 2020-11-25 13:34 | P.CRDCN ---
History of Present Illness Consult date: 11/25/20 History of present illness: HISTORY OF PRESENT ILLNESS: This is a 80-year-old female with a past medical history significant for chronic kidney disease who was previously on hemodialysis, hypertension, hyperlipidemia, diabetes mellitus, coronary artery disease with previous CABG, pacemaker insertion, and nicotine dependence. Patient follows with a chief of anesthesiology in [place]. We have been asked to see the patient in consultation for congestive he art failure. Patient examined at the bedside. Patient reports she has been feeling short of breath for the past 6 weeks. She states her shortness of breath has worsened in severity over the last 2-3 days. Reports being unable to lay flat in bed due to dyspnea. She reports increased lower extremity edema. She states that she was evaluated by her primary care physician for this on an outpatient basis but she states "She did nothing". EKG reveals paced rhythm Chest xray small pleural effusions. Cardiomegaly. Mild volume overload. Vascular prominence. Laboratory data: WBC 5.1. Hemoglobin 9.4. Platelet count 123. Sodium 140. Potassium 5.3. BUN 71. Creatinine 2.56. Troponin negative 1. BNP 29,400 Current home cardiac medications include Coreg 6.25 mg twice a day, Demadex 20 mg daily, Zocor 5 mg daily, Plavix 75 mg daily, aspirin 81 mg daily. Most recent echocardiogram obtained in 2020 revealed ejection fraction 50-55% with moderate mitral regurgitation REVIEW OF SYSTEMS: At the time of my exam: CONSTITUTIONAL: Denies fever or chills. HEENT: Denies blurred vision, vision changes, or eye pain. Denies hemoptysis CARDIOVASCULAR: Denies chest pain. Reports orthopnea. Denies PND. Denies palpitations RESPIRATORY: Denies shortness of breath. GASTROINTESTINAL: Denies abdominal pain. Denies nausea or vomiting. HEMATOLOGIC: Denies bleeding disorders. GENITOURINARY: Denies any blood in urine. SKIN: Denies pruitis. Denies rash. PHYSICAL EXAM: VITAL SIGNS: Reviewed. GENERAL: Well-developed in no acute distress. HEENT: Head is normocephalic. Pupils are equal, round. Sclerae anicteric. Mucous membranes of the mouth are moist. Neck supple. No JVD or thyromegaly LUNGS: Respirations even and unlabored. Lungs diminished with bibasilar rales HEART: Regular rate and rhythm. S1 and S2 heard. Systolic murmur. ABDOMEN: Soft. Nondistended. Nontender. EXTREMITIES: Normal range of motion. No clubbing or cyanosis. Peripheral pulses intact. 2+ bilateral lower extremity edema NEUROLOGIC: Awake and alert. Oriented x 3. ASSESSMENT: Acute exacerbation of chronic diastolic heart failure, EF 50-55% in 2019 Coronary artery disease with previous CABG Hypertension Hyperlipidemia History of pacemaker insertion Moderate mitral regurgitation Chronic kidney disease, previously on hemodialysis Diabetes mellitus Nicotine dependence, patient smokes 1/2 pack per day PLAN: Obtain 2-D echo to assess cardiac structure and function Begin Lasix 60 mg IV every 12 hours Daily weights Accurate I&O Monitor kidney function. Nephrology following Resume additional home cardiac medications Smoking cessation encouraged Further recommendations for any patient course Nurse practitioner note has been reviewed by physician. Signing provider agrees with the documented findings, assessment, and plan of care. Past Medical History Past Medical History: Diabetes Mellitus, Hypertension, Musculoskeletal Disorder, Sleep Apnea/CPAP/BIPAP, Thyroid Disorder Additional Past Medical History / Comment(s): COPD, CHF with diastolic heart failure, hypertension, chronic kidney disease stage III, coronary artery disease with previous bypass surgery, history of pacemaker insertion 2014, diabetes mellitus, hypertension, obstructive sleep apnea, thyroid nodules, hyperlipidemia, history of smoking in the order of [id number] History of Any Multi-Drug Resistant Organisms: ESBL Date of last positivie culture/infection: 10/18/19 MDRO Source:: ESBL URINE Past Surgical History: Appendectomy, Back Surgery, Bariatric Surgery, Coronary Bypass/CABG, Heart Catheterization, Hysterectomy, Pacemaker Additional Past Surgical History / Comment(s): LAP BAND, CATARACT LEFT EYE, NEUROMA ON FOOT, KNEE ARTHROSCOPY, PACEMAKER ([employer] 04/18/2015) Partial thyroidectomy 1999 Past Anesthesia/Blood Transfusion Reactions: No Reported Reaction Type of Cardiac Device: Permanent Pacemaker Device Placement Date:: 04/18/2015 [employer] Past Psychological History: No Psychological Hx Reported Smoking Status: Current every day smoker Past Alcohol Use History: None Reported Past Drug Use History: None Reported - Past Family History Son(s) Family Medical History: Cancer Additional Family Medical History / Comment(s): MELANOMA Brother(s) Family Medical History: Cancer Father History Unknown: Yes Family Medical History: Cancer Mother Family Medical History: Coronary Artery Disease (CAD) Medications and Allergies Home Medications Medication Instructions Recorded Confirmed Type Simvastatin [Zocor] 5 mg PO HS 11/29/17 11/24/20 History Insulin Lispro [humaLOG Kwikpen] 10 unit SQ AC-TID 02/14/20 11/24/20 History Aspirin EC [Ecotrin Low Dose] 81 mg PO DAILY 03/09/20 11/24/20 History Clopidogrel [Plavix] 75 mg PO DAILY 03/27/20 11/24/20 History Ergocalciferol (Vitamin D2) 1,250 mcg PO BONDS 11/17/20 11/24/20 History [Vitamin D2 (50,000 Iu)] Mirtazapine 15 mg PO DAILY 11/17/20 11/24/20 History Torsemide [Demadex] 20 mg PO DAILY 11/17/20 11/24/20 History Albuterol Nebulized [Ventolin 2.5 mg INHALATION RT-QID PRN 11/24/20 11/24/20 History Nebulized] Insulin Detemir [Levemir Flextouch] 20 - 25 units SQ HS 11/24/20 11/24/20 History Temazepam 30 mg PO HS 11/24/20 11/24/20 History carvediloL [Coreg] 6.25 mg PO BID 11/24/20 11/24/20 History Allergies Allergy/AdvReac Type Severity Reaction Status Date / Time Sulfa (Sulfonamide Allergy Unknown Verified 11/24/20 17:23 Antibiotics) sulfamethoxazole Allergy Unknown Verified 11/24/20 17:23 [From Bactrim] trimethoprim [From Bactrim] Allergy Unknown Verified 11/24/20 17:23 Physical Exam Vitals: Vital Signs Temp Pulse Pulse Resp BP BP Pulse Ox 11/25/20 11:19 70 11/25/20 11:07 70 11/25/20 08:00 98.2 F 60 18 155/60 97 11/25/20 04:00 61 18 160/67 97 11/25/20 02:00 60 18 11/25/20 00:00 60 18 165/70 99 11/24/20 23:50 71 11/24/20 23:41 68 11/24/20 20:40 18 11/24/20 20:00 64 18 190/81 100 11/24/20 19:12 98.1 F 64 20 177/74 98 11/24/20 18:25 98.1 F 64 18 190/81 100 11/24/20 17:01 60 20 153/67 100 11/24/20 15:35 24 11/24/20 15:02 97.9 F 60 18 164/67 93 L Intake and Output 11/24/20 11/25/20 11/25/20 22:59 06:59 14:59 Intake Total 250 Output Total 295 700 Balance -45 -700 Intake: Oral 250 Output: Urine 295 700 Uretheral (Esquivel) 295 Other: Voiding Method Indwelling Catheter Indwelling Catheter Indwelling Catheter Weight 90.718 kg 92.9 kg Results 11/25/20 08:52 11/25/20 08:52 Cardiac Enzymes 11/24/20 11/24/20 Range/Units 15:58 15:58 AST 21 (14-36) U/L Troponin I 0.018 (0.000-0.034) ng/mL Coagulation 11/24/20 Range/Units 15:58 PT 11.3 (9.0-12.0) sec APTT 21.4 L (22.0-30.0) sec CBC 11/24/20 11/25/20 Range/Units 15:58 08:52 WBC 6.0 5.1 (3.8-10.6) k/uL RBC 3.33 L 3.29 L (3.80-5.40) m/uL Hgb 9.5 L 9.4 L (11.4-16.0) gm/dL Hct 30.6 L 30.6 L (34.0-46.0) % Plt Count 137 L 123 L (150-450) k/uL Comprehensive Metabolic Panel 11/24/20 11/25/20 Range/Units 15:58 08:52 Sodium 140 140 (137-145) mmol/L Potassium 5.0 5.3 H (3.5-5.1) mmol/L Chloride 109 H 109 H (98-107) mmol/L Carbon Dioxide 26 25 (22-30) mmol/L BUN 72 H 71 H (7-17) mg/dL Creatinine 2.68 H 2.56 H (0.52-1.04) mg/dL Glucose 111 H 149 H (74-99) mg/dL Calcium 9.0 8.5 (8.4-10.2) mg/dL AST 21 (14-36) U/L ALT 25 (4-34) U/L Alkaline Phosphatase 64 (38-126) U/L Total Protein 6.4 (6.3-8.2) g/dL Albumin 3.6 (3.5-5.0) g/dL Current Medications Generic Name Dose Route Start Last Admin Trade Name Freq PRN Reason Stop Dose Admin Albuterol Sulfate 2.5 mg 11/24/20 19:16 11/25/20 11:07 Albuterol Nebulized 2.5 Mg/3 Ml INHALATION 2.5 mg RT-QID PRN Administration Shortness Of Breath Aspirin 81 mg 11/25/20 09:00 11/25/20 09:11 Aspirin 81 Mg PO 81 mg DAILY WILMER Administration Atorvastatin Calcium 10 mg 11/24/20 21:00 11/24/20 22:04 Atorvastatin 10 Mg Tab PO 10 mg HS WILMER Administration Carvedilol 6.25 mg 11/24/20 21:00 11/25/20 06:35 Carvedilol 6.25 Mg Tab PO 6.25 mg BID-W/MEALS WILMER Administration Clopidogrel Bisulfate 75 mg 11/25/20 09:00 11/25/20 09:11 Clopidogrel 75 Mg Tab PO 75 mg DAILY WILMER Administration Ergocalciferol 1,250 mcg 11/26/20 09:00 Ergocalciferol 1,250 Mcg (50,000 Iu) Capsule PO BONDS WILMER Furosemide 60 mg 11/25/20 09:00 11/25/20 09:11 Furosemide 10 Mg/Ml 10 Ml Vial IV 60 mg Q12HR WILMER Administration Guaifenesin/Codeine Phosphate 10 ml 11/25/20 12:44 Guaifenesin-Coden 100-10mg/5ml 10 Ml Cup PO Q6H PRN Cough Insulin Aspart 10 unit 11/25/20 07:30 11/25/20 12:37 Insulin Aspart (Novolog) 100 Unit/Ml Vial SQ 10 unit AC-TID WILMER Administration Insulin Detemir 20 unit 11/24/20 21:00 11/24/20 22:04 Insulin Detemir (Levemir) 100 Unit/Ml Syr SQ 20 unit HS WILMER Administration Mirtazapine 15 mg 11/25/20 09:00 11/25/20 09:11 Mirtazapine 15 Mg Tab PO 15 mg DAILY WILMER Administration Naloxone HCl 0.2 mg 11/24/20 17:49 Naloxone 0.4 Mg/Ml 1 Ml Vial IV Q2M PRN Opioid Reversal Temazepam 30 mg 11/24/20 21:00 11/24/20 22:05 Temazepam 15 Mg Cap PO 30 mg HS WILMER Administration Intake and Output 11/24/20 11/25/20 11/25/20 22:59 06:59 14:59 Intake Total 250 Output Total 295 700 Balance -45 -700 Intake: Oral 250 Output: Urine 295 700 Uretheral (Esquivel) 295 Other: Voiding Method Indwelling Catheter Indwelling Catheter Indwelling Catheter Weight 90.718 kg 92.9 kg 11/25/20 08:52 11/25/20 08:52
--- NOTE | 2020-11-25 15:00 | CONS ---
CONSULTATION REASON FOR CONSULT: Renal failure. HISTORY OF PRESENT ILLNESS: Patient is an 80-year-old female with chronic kidney disease, NKF stage IV with history of dialysis dependent acute renal failure and patient was on dialysis for about 2 months. She has been off dialysis for about 5-6 months now. Patient was admitted to the hospital with complaints of increasing shortness of breath over the last two weeks. She has also had some cough. Patient denies any fever or chills. No diarrhea, abdominal pain. Patient has also noticed increased lower extremity edema. She denies changes in her dose of diuretics. Serum creatinine has been at about 2.6-2.5 mg/dL with which is close to her baseline which was around 2 mg/dL. Blood pressure is not low. Chest x-ray shows evidence of cardiomegaly and pulmonary vascular prominence. Patient denies use of any nonsteroidal anti-inflammatory agents. She has been using Demadex 20 mg daily. PAST MEDICAL HISTORY: CKD stage 4 with history of dialysis dependent acute renal failure, came off dialysis about five months ago; chronic diastolic CHF, type 2 diabetes, COPD, hypertension, obstructive sleep apnea, hyperlipidemia. PAST SURGICAL HISTORY: Appendectomy, back surgery, bariatric surgery, coronary artery bypass surgery, hysterectomy, pacemaker placement, cataract surgery, lap band procedure, knee arthroscopy, partial thyroidectomy, removal of neuroma on foot. MEDICATIONS: Medications prior to admission included Zocor, insulin, aspirin, Plavix, vitamin D, Demadex, Coreg. ALLERGIES: Include SULFA, BACTRIM. REVIEW OF SYSTEMS: As per HPI. Other systems negative. SOCIAL HISTORY: Positive for smoking. No history of drug abuse or alcohol abuse. EXAMINATION: Patient is currently comfortable, awake. She is not in any acute distress. Blood pressure this morning 155/60, heart rate 60 per minute, she is afebrile. Examination of the heart S1, S2. Examination of the lungs, bilateral breath sounds are heard. Decreased breath sounds at bases. Abdomen is soft, obese. 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 LAB: Show sodium of 140, potassium 5.3, chloride 109, BUN 71, serum creatinine 2.56, hemoglobin 9.4 g/dL. ASSESSMENT: 1. Chronic kidney disease, NKF stage IV, renal function close to baseline. 2. History of dialysis dependent acute kidney injury about five months ago. Patient stayed on dialysis for about two months and came off about five months ago. 3. Volume overload. 4. Diastolic congestive heart failure, acute on top of chronic. Ejection fraction has been preserved previously. 5. Hyperlipidemia. 6. Type 2 diabetes. 7. Anemia, rule out iron deficiency, most likely component of anemia of chronic disease present. PLAN: Diurese patient, repeat labs in a.m. and hopefully the patient will not need renal replacement therapy and she can diurese on her own. Thank you for this consultation. We will continue to follow the patient with you during her hospitalization/ MMODL / IJN: [id number] /
[2020-11-25 16:56] LABS: Glucose,Whole Blood 127 mg/dL (75-99)
[2020-11-25 18:05] LABS: % Iron Saturation 63.28 (12.00-45.00)
[2020-11-25 18:14] LABS: Folate, Serum 8.3 ng/mL
[2020-11-25] MEDS ORDERED: NICOTINE 14MG/24HR PATCH TRANSDERM SCH (20:00)
[2020-11-25 20:06] LABS: Glucose,Whole Blood 188 mg/dL (75-99)
[2020-11-25] MEDS: ATORVASTATIN 10 MG TAB PO SCH (21:14)
[2020-11-25] MEDS: INSULIN DETEMIR (LEVEMIR) 100 UNIT/ML SYR SQ SCH (21:14)
[2020-11-25] MEDS: TEMAZEPAM 15 MG CAP PO SCH (21:14)
[2020-11-25] MEDS: guaiFENesin-Coden 100-10MG/5ML 10 ML CUP PO PRN (23:28)
[2020-11-25 23:50] LABS: Appearance,Urine Clear (Clear); Bacteria,Urine Moderate /hpf; Bilirubin,Urine Negative (Negative); Blood,Urine Small (Negative); Color,Urine Colorless; Glucose,Urine (UA) Negative (Negative); Ketones,Urine Negative (Negative); Leukocyte Esterase,Urine Large (Negative); Mucus,Urine Rare /hpf; Nitrite,Urine Negative (Negative); Protein,Urine 1+ (Negative); RBC,Urine 10 /hpf (0-5); Specific Gravity,Urine 1.007 (1.001-1.035); Squamous Epithelial Cell,Urine <1 /hpf (0-4); Urobilinogen,Urine <2.0 mg/dL (<2.0); WBC,Urine 58 /hpf (0-5)
[2020-11-26] MEDS: carvediloL 6.25 MG TAB PO SCH ×3 (05:30→17:17)
[2020-11-26 07:18] LABS: Glucose,Whole Blood 149 mg/dL (75-99)
[2020-11-26 08:14] LABS: Calcium 7.9 mg/dL (8.4-10.2); Potassium 4.9 mmol/L (3.5-5.1)
--- NOTE | 2020-11-26 08:38 | ECHOF ---
Referral Reason:lv function, chf MEASUREMENTS -------- HEIGHT: 157.5 cm WEIGHT: 99.8 kg BP: RVIDd: 3.7 cm (< 3.3) IVSd: 1.3 cm (0.6 - 1.1) LVIDd: 5.5 cm (3.9 - 5.3) LVPWd: 1.4 cm (0.6 - 1.1) IVSs: 1.5 cm LVIDs: 4.5 cm LVPWs: 1.6 cm LA Diam: 4.6 cm (2.7 - 3.8) LAESV Index (A-L): 54.58 ml/m Ao Diam: 3.1 cm (2.0 - 3.7) AV Cusp: 1.5 cm (1.5 - 2.6) MV EXCURSION: 17.354 mm (> 18.000) MV EF SLOPE: 46 mm/s (70 - 150) EPSS: 0.9 cm MV E Andres: 1.81 m/s MV DecT: 169 ms MV A Andres: 0.97 m/s MV E/A Ratio: 1.87 RAP: 10.00 mmHg RVSP: 46.69 mmHg FINDINGS -------- Pacerwire seen in RV and RA. This was a technically good study. The left ventricular size is normal. There is borderline concentric left ventricular hypertrophy. Overall left ventricular systolic function is mildly impaired with, an EF between 45 - 50 %. Dista l Septal Hypokinesis. The right ventricle is normal in size. LA is severely dilated >40 ml/m2 The right atrial size is normal. The aortic valve is trileaflet, and appears structurally normal. No aortic stenosis or regurgitation. The mitral valve leaflets are mildly thickened. Severe mitral regurgitation is present. Mild tricuspid regurgitation present. There is moderate pulmonary hypertension. The right ventric ular systolic pressure, as measured by Doppler, is 46.69mmHg. Trace/mild (physiologic) pulmonic regurgitation. The aortic root size is normal. There is no pericardial effusion. CONCLUSIONS -------- 1. Pacerwire seen in RV and RA. 2. The left ventricular size is normal. 3. There is borderline concentric left ventricular hypertrophy. 4. Distal Septal Hypokinesis. 5. The right ventricle is normal in size. 6. LA is severely dilated >40 ml/m2 7. The right atrial size is normal. 8. The mitral valve leaflets are mildly thickened. 9. Severe mitral regurgitation is present. 10. Mild tricuspid regurgitation present. 11. There is moderate pulmonary hypertension. 12. The right ventricular systolic pressure, as measured by Doppler, is 46.69mmHg. 13. Trace/mild (physiologic) pulmonic regurgitation. 14. The aortic root size is normal. 15. There is no pericardial effusion. [employer] MONITORING TECHNICIAN: Loni eDlgado RDCS
[2020-11-26] MEDS: guaiFENesin-Coden 100-10MG/5ML 10 ML CUP PO PRN ×3 (08:48→23:35)
[2020-11-26] MEDS: ERGOCALCIFEROL 1,250 MCG (50,000 IU) CAPSULE PO SCH (08:49)
[2020-11-26] MEDS: MIRTAZAPINE 15 MG TAB PO SCH (08:49)
[2020-11-26] MEDS: FUROSEMIDE 10 MG/ML 10 ML VIAL IV SCH ×2 (08:49→21:17)
[2020-11-26] MEDS: INSULIN ASPART (NovoLOG) 100 UNIT/ML VIAL SQ SCH ×3 (08:49→17:17)
[2020-11-26] MEDS: CLOPIDOGREL 75 MG TAB PO SCH (08:49)
[2020-11-26] MEDS: ASPIRIN 81 MG PO SCH (08:49)
[2020-11-26] MEDS: ALBUTEROL NEBULIZED 2.5 MG/3 ML INHALATION PRN ×3 (11:27→20:07)
--- NOTE | 2020-11-26 11:40 | P.PN ---
Subjective Progress Note Date: 11/26/20 Elza Avrey, is an 80-year-old female patient of Dr. Ward, who presented to [facility] emergency room with a chief complaint of shortness of breath, patient stated that she had worsening lower extremity edema and weight gain for the last 6 weeks she has a known history of diastolic congestive heart failure and history of COPD with chronic respiratory failure requiring home oxygen use, patient checks her pulse ox at home and it was down in the 80s and she decided to come to emergency room. Patient was evaluated in the emergency room her vital examination on presentation revealed a temperature of 97.9 pulse 60 respiration 18 and blood pressure 164/67 pulse ox 93% on 4 L nasal cannula, white blood count was 6.0 hemoglobin 9.5 platelet count 137, sodium 140 potassium 5.0 chloride 109 CO2 26 BUN 72 creatinine 2.68, AST and ALT within normal limits glucose 111 troponin at 0.018 BNP elevated at 29,400 coronavirus PCR was negative patient stated that she was vaccinated for Covid 19. Chest x- ray done in the emergency room revealed small bilateral pleural effusions, cardiomegaly, with evidence of fluid overload and vascular prominence, EKG done in the emergency room revealed dual paced rhythm. Patient was admitted to telemetry floor, nephrology consultation and cardiology consultation were requested. Past medical history is significant for history of coronary artery disease, history of chronic diastolic congestive heart failure, history of hypertension, history of hypothyroidism, history of chronic kidney disease, history of cardiac arrhythmia with history of pacemaker placement. On review of systems patient is complaining of cough and shortness of breath, and bilateral lower extremity swelling with weight gain otherwise she denies any complaints there is no fever or chills no headache or dizziness no chest pain no palpitation no nausea or vomiting no abdominal pain no diarrhea no blood in the stools no burning with urination no frequency or urgency and no hematuria there is no weakness or numbness in any of the extremities no change in vision speech or gait On on 11/26/2020 patient is alert and oriented 3 resting comfortably in bed. Patient reports minimum improvement with shortness of breath. Patient remains on IV Lasix. Nephrology cardiology services following. Pulmonary service is consulted. Swelling to lower extremities do appear slightly improved. Patient denies nausea vomiting or diarrhea. Patient denies any urinary burning or frequency Objective - Vital Signs Vital signs: Vital Signs Temp 97.9 F 11/26/20 08:00 Pulse 60 11/26/20 11:27 Resp 18 11/26/20 08:00 BP 149/56 11/26/20 08:00 Pulse Ox 96 11/26/20 08:00 Intake & Output 11/25/20 11/26/20 11/26/20 18:59 06:59 18:59 Intake Total 1030 240 Output Total 1000 650 Balance 30 -650 240 Weight 94.3 kg Intake: Oral 1030 240 Output: Urine 1000 650 Other: Voiding Method Indwelling Catheter Indwelling Catheter - Exam In general patient is alert and oriented 3 in no apparent distress HEENT head normocephalic and atraumatic Neck is supple no JVD no goiter no lymphadenopathy Chest exam reveals a few scattered rhonchi no wheezing Cardiac exam reveals regular heart sounds S1 and S2 no gallops no murmurs Abdomen is soft nontender no organomegaly with normal bowel sounds Extremity exam reveals 2+ edema no cyanosis or clubbing Neurological examination reveals no gross focal deficit - Labs CBC & Chem 7: 11/25/20 08:52 11/26/20 07:17 Labs: Abnormal Lab Results - Last 24 Hours (Table) 11/25/20 11/25/20 11/25/20 Range/Units 08:52 12:11 16:55 Chloride (98-107) mmol/L BUN (7-17) mg/dL Creatinine (0.52-1.04) mg/dL Glucose (74-99) mg/dL POC Glucose (mg/dL) 158 H 127 H (75-99) mg/dL Calcium (8.4-10.2) mg/dL % Saturation 63.28 H (12.00-45.00) Urine Protein (Negative) Urine Blood (Negative) Ur Leukocyte Esterase (Negative) Urine RBC (0-5) /hpf Urine WBC (0-5) /hpf Urine Bacteria (None) /hpf Urine Mucus (None) /hpf 11/25/20 11/25/20 11/26/20 Range/Units 20:05 23:26 07:17 Chloride 108 H (98-107) mmol/L BUN 74 H (7-17) mg/dL Creatinine 2.78 H (0.52-1.04) mg/dL Glucose 137 H (74-99) mg/dL POC Glucose (mg/dL) 188 H (75-99) mg/dL Calcium 7.9 L (8.4-10.2) mg/dL % Saturation (12.00-45.00) Urine Protein 1+ H (Negative) Urine Blood Small H (Negative) Ur Leukocyte Esterase Large H (Negative) Urine RBC 10 H (0-5) /hpf Urine WBC 58 H (0-5) /hpf Urine Bacteria Moderate H (None) /hpf Urine Mucus Rare H (None) /hpf 11/26/20 Range/Units 07:17 Chloride (98-107) mmol/L BUN (7-17) mg/dL Creatinine (0.52-1.04) mg/dL Glucose (74-99) mg/dL POC Glucose (mg/dL) 149 H (75-99) mg/dL Calcium (8.4-10.2) mg/dL % Saturation (12.00-45.00) Urine Protein (Negative) Urine Blood (Negative) Ur Leukocyte Esterase (Negative) Urine RBC (0-5) /hpf Urine WBC (0-5) /hpf Urine Bacteria (None) /hpf Urine Mucus (None) /hpf Microbiology - Last 24 Hours (Table) 11/25/20 23:26 Urine Culture - Preliminary Urine,Catheterized Assessment and Plan Plan: Worsening shortness of breath multi-factorial related to acute exacerbation of diastolic congestive heart failure, with evidence of bilateral pleural effusion and underlying advanced chronic obstructive pulmonary disease with history of chronic hypoxic respiratory failure requiring home oxygen use. Evidence of anemia hemoglobin is 9.5 on presentation will check iron vitamin B12 and folate levels Underlying history of chronic kidney disease, patient is followed by Dr. Roland she stated that last year she had to be on dialysis for several months, nephrology consultation requested Underlying history of chronic diastolic congestive heart failure will check echocardiogram Will consult cardiology Underlying history of diabetes mellitus Underlying history of hypertension Underlying history of hyperlipidemia Underlying history of coronary artery disease, maintained on Plavix and aspirin Underlying history of cardiac arrhythmia with history of pacemaker placement Underlying history of depression maintained on Mirtazapine Underlying history of chronic obstructive pulmonary disease Urinary tract infection. Patient started on Rocephin urine culture ordered At this time patient is admitted to telemetry floor cardiology consultation and nephrology consultation requested Patient was started on IV Lasix for diuresis Home medications reviewed and reordered Anemia workup initiated Will follow closely
[2020-11-26 12:01] LABS: Glucose,Whole Blood 94 mg/dL (75-99)
--- NOTE | 2020-11-26 12:39 | P.PN ---
Subjective Progress Note Date: 11/26/20 HISTORY OF PRESENT ILLNESS: 11/25/2020 This is a 80-year-old female with a past medical history significant for chronic kidney disease who was previously on hemodialysis, hypertension, hyperlipidemia, diabetes mellitus, coronary artery disease with previous CABG, pacemaker insertion, and nicotine dependence. 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 We have been asked to see the patient in consultation for congestive heart failure. Patient examined at the bedside. Patient reports she has been feeling short of breath for the past 6 weeks. She states her shortness of breath has worsened in severity over the last 2-3 days. Reports being unable to lay flat in bed due to dyspnea. She reports increased lower extremity edema. She states that she was evaluated by her primary care physician for this on an outpatient basis but she states "She did nothing". EKG reveals paced rhythm Chest xray small pleural effusions. Cardiomegaly. Mild volume overload. Vascular prominence. Laboratory data: WBC 5.1. Hemoglobin 9.4. Platelet count 123. Sodium 140. Potassium 5.3. BUN 71. Creatinine 2.56. Troponin negative 1. BNP 29,400 Current home cardiac medications include Coreg 6.25 mg twice a day, Demadex 20 mg daily, Zocor 5 mg daily, Plavix 75 mg daily, aspirin 81 mg daily. Most recent echocardiogram obtained in 2019 revealed ejection fraction 50-55% with moderate mitral regurgitation 11/26/2020 Patient examined this morning at the bedside. Patient states she is tired this morning and did not sleep well overnight. She continues to feel short of breath but states it is improving. She remains on IV Lasix 60 mg every 12 hours. Creatinine 2.78 today. Echocardiogram completed revealed ejection fraction 45-50%, mild tricuspid regurgitation, severe mitral regurgitation, and moderate pulmonary hypertension PHYSICAL EXAM: VITAL SIGNS: Reviewed. GENERAL: Well-developed in no acute distress. HEENT: Head is normocephalic. Pupils are equal, round. Sclerae anicteric. Mucous membranes of the mouth are moist. Neck supple. No JVD or thyromegaly LUNGS: Respirations even and unlabored. Lungs diminished with scattered rhonchi and expiratory wheezing HEART: Regular rate and rhythm. S1 and S2 heard. Systolic murmur. ABDOMEN: Soft. Nondistended. Nontender. EXTREMITIES: Normal range of motion. No clubbing or cyanosis. Peripheral pulses intact. 2+ bilateral lower extremity edema NEUROLOGIC: Awake and alert. Oriented x 3. ASSESSMENT: Acute exacerbation of chronic diastolic heart failure, EF 45-50% Acute exacerbation of COPD Coronary artery disease with previous CABG Hypertension Hyperlipidemia History of pacemaker insertion Valvular heart disease Moderate pulmonary hypertension Chronic kidney disease, previously on hemodialysis Diabetes mellitus Nicotine dependence, patient smokes 1/2 pack per day PLAN: Continue Lasix 60 mg IV every 12 hours Daily weights Accurate I&O Monitor kidney function. Nephrology following Smoking cessation encouraged Further recommendations pending patient course Nurse practitioner note has been reviewed by physician. Signing provider agrees with the documented findings, assessment, and plan of care. Objective - Vital Signs Vital signs: Vital Signs Temp 97.9 F 11/26/20 08:00 Pulse 60 11/26/20 11:38 Resp 18 11/26/20 08:00 BP 149/56 11/26/20 08:00 Pulse Ox 96 11/26/20 08:00 Intake & Output 11/25/20 11/26/20 11/26/20 18:59 06:59 18:59 Intake Total 1030 240 Output Total 1000 650 Balance 30 -650 240 Weight 94.3 kg Intake: Oral 1030 240 Output: Urine 1000 650 Other: Voiding Method Indwelling Catheter Indwelling Catheter - Labs CBC & Chem 7: 11/25/20 08:52 11/26/20 07:17 Labs: Abnormal Lab Results - Last 24 Hours (Table) 11/25/20 11/25/20 11/25/20 Range/Units 08:52 16:55 20:05 Chloride (98-107) mmol/L BUN (7-17) mg/dL Creatinine (0.52-1.04) mg/dL Glucose (74-99) mg/dL POC Glucose (mg/dL) 127 H 188 H (75-99) mg/dL Calcium (8.4-10.2) mg/dL % Saturation 63.28 H (12.00-45.00) Urine Protein (Negative) Urine Blood (Negative) Ur Leukocyte Esterase (Negative) Urine RBC (0-5) /hpf Urine WBC (0-5) /hpf Urine Bacteria (None) /hpf Urine Mucus (None) /hpf 11/25/20 11/26/20 11/26/20 Range/Units 23:26 07:17 07:17 Chloride 108 H (98-107) mmol/L BUN 74 H (7-17) mg/dL Creatinine 2.78 H (0.52-1.04) mg/dL Glucose 137 H (74-99) mg/dL POC Glucose (mg/dL) 149 H (75-99) mg/dL Calcium 7.9 L (8.4-10.2) mg/dL % Saturation (12.00-45.00) Urine Protein 1+ H (Negative) Urine Blood Small H (Negative) Ur Leukocyte Esterase Large H (Negative) Urine RBC 10 H (0-5) /hpf Urine WBC 58 H (0-5) /hpf Urine Bacteria Moderate H (None) /hpf Urine Mucus Rare H (None) /hpf Microbiology - Last 24 Hours (Table) 11/25/20 23:26 Urine Culture - Preliminary Urine,Catheterized
--- NOTE | 2020-11-26 15:03 | PN ---
PROGRESS NOTE Patient is seen for followup for chronic kidney disease. The patient was admitted to the hospital with shortness of breath, volume overload. She is currently being diuresed. Serum creatinine staying at about 2.5-2.7 mg/dL. Overall patient states she is feeling better. She has an indwelling Esquivel catheter and 24 hour urine output documented at about 1.6 L. PHYSICAL EXAMINATION: On examination today, blood pressure was 149/56, heart rate 76 per minute. She is afebrile. Examination of the heart S1, S2. Examination of lungs decreased breath sounds at bases, basal crackles are heard. Abdomen is soft, obese. Exam of lower extremities shows edema 2+ bilaterally. 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 LAB: Show sodium of 141, potassium 4.9, chloride 108, CO2 is 30, BUN 74, creatinine 2.78. UA shows WBCs 58. Urine culture is currently pending. ASSESSMENT: 1. Chronic kidney disease, NKF stage IV secondary to nephrosclerosis, diabetic kidney disease with an element of acute kidney injury, mostly cardiorenal. Patient is currently being diuresed. Lasix is at 60 mg q.12 hours, which I will continue. We can repeat a chest x-ray in a.m. 2. Pyuria. Urine culture is pending. Patient is maintained on ceftriaxone. 3. History of diastolic heart failure. 4. Hypertension, controlled. Blood pressure is slightly on the higher side. Continue to diurese patient. Expect improvement with improving volume status. 5. Type 2 diabetes. 6. History of dialysis dependent acute renal failure. Off dialysis for about 5 months now. PLAN: Continue with IV Lasix. Repeat labs in a.m. Repeat chest x-ray in a.m. MMODL / IJN: [id number] /
[2020-11-26 16:56] LABS: Glucose,Whole Blood 92 mg/dL (75-99)
[2020-11-26 20:52] LABS: Glucose,Whole Blood 123 mg/dL (75-99)
[2020-11-26] MEDS: TEMAZEPAM 15 MG CAP PO SCH (21:17)
[2020-11-26] MEDS: NICOTINE 14MG/24HR PATCH TRANSDERM SCH (21:17)
[2020-11-26] MEDS: ATORVASTATIN 10 MG TAB PO SCH (21:17)
[2020-11-26] MEDS: INSULIN DETEMIR (LEVEMIR) 100 UNIT/ML SYR SQ SCH (21:17)
[2020-11-27] MEDS: carvediloL 6.25 MG TAB PO SCH ×2 (06:23→17:14)
[2020-11-27] MEDS: guaiFENesin-Coden 100-10MG/5ML 10 ML CUP PO PRN (06:23)
[2020-11-27 07:10] LABS: Glucose,Whole Blood 142 mg/dL (75-99)
[2020-11-27] MEDS: INSULIN ASPART (NovoLOG) 100 UNIT/ML VIAL SQ SCH ×3 (07:11→17:14)
[2020-11-27 08:06] LABS: Albumin 3.3 g/dL (3.5-5.0); Basophils % (A) 0 %; Calcium 8.4 mg/dL (8.4-10.2); Eosinophils # (A) 0.2 k/uL (0-0.7); Eosinophils % (A) 3 %; HCT 30.3 % (34.0-46.0); HGB 9.5 gm/dL (11.4-16.0); Hypochromasia Marked; Lymphocytes # (A) 0.7 k/uL (1.0-4.8); Lymphocytes % (A) 10 %; MCH 29.5 pg (25.0-35.0); MCHC 31.3 g/dL (31.0-37.0); Mean Platelet Volume 9.6; Monocytes # (A) 1.2 k/uL (0-1.0); Monocytes % (A) 18 %; Neutrophils # (A) 4.2 k/uL (1.3-7.7); Neutrophils % (A) 64 %; Platelet Count 118 k/uL (150-450); Potassium 5.2 mmol/L (3.5-5.1); RBC 3.22 m/uL (3.80-5.40); RDW 15.2 % (11.5-15.5); Total Bilirubin 0.4 mg/dL (0.2-1.3); Total Protein 5.9 g/dL (6.3-8.2); WBC 6.5 k/uL (3.8-10.6)
[2020-11-27] MEDS: ASPIRIN 81 MG PO SCH (09:05)
[2020-11-27] MEDS: MIRTAZAPINE 15 MG TAB PO SCH (09:05)
[2020-11-27] MEDS: CLOPIDOGREL 75 MG TAB PO SCH (09:05)
[2020-11-27] MEDS: FUROSEMIDE 10 MG/ML 10 ML VIAL IV SCH ×3 (09:05→23:00)
[2020-11-27] MEDS ORDERED: IPRATROPIUM-ALBUTEROL 3 ML NEB INHALATION PRN (10:08)
--- NOTE | 2020-11-27 10:09 | P.CNPUL ---
History of Present Illness Consult date: 11/27/20 Reason for consult: dyspnea History of present illness: 80-year-old female patient presented to the hospital because of feeling short of breath for the past 6 weeks. Shortness of breath got worse over the past few days and for that reason the patient came into the hospital. The patient reported that she was unable to lay down flat in bed because of worsening shortness of breath and the patient also had increased lower extremity edema. The patient has multiple medical problems including COPD and chronic hypoxic respiratory failure and the patient was admitted on oxygen at 2 L per minute nasal cannula chronic kidney disease, hypertension, hyperlipidemia, diabetes mellitus and coronary artery disease and the patient undergone previous bypass surgery. The patient also has a pacemaker in place. The patient at a time of admission showed to have a paced rhythm on the EKG. Chest x-ray showed small bilateral pleural effusion in addition to cardiomegaly and prominent vascular markings. White cell count was at 5.1 with a hemoglobin of 9.4 and platelets of 123. BUN was 71 with a creatinine of 2.56 and a troponin 1 was negative. ProBNP level was 99,400. The patient had an echocardiogram that showed an ejection fraction of 45-50% with severe mitral regurgitation and moderate degree of pulmonary hypertension. Patient was diagnosed having an acute decompensated heart failure and COPD exacerbation. Noted the patient is a chronic smoker. A pulmonary consultation was also requested accordingly. Currently the patient is on IV Lasix 60 mg every 12 hours, the patient is also on 4 L about 2 by nasal cannula with a pulse ox of 98-99% . note that the covid 19 PCR came back negative. This morning, the patient is on 4 L of oxygen by nasal cannula. Saturations around 99%. She is afebrile. She remains on IV Lasix 60 mg every 8 hours. The with balance over the past 24 hours has been -620 mL and the patient's BUN and creatinine are 76 and 3.02 respectively. Potassium level is up to 5.2. Review of Systems Constitutional: Denies chills, Denies fever Eyes: denies as per HPI, denies blurred vision, denies bulging eye, denies decreased vision, denies diplopia, denies discharge, denies dry eye, denies irritation, denies itching, denies pain, denies photophobia, denies loss of peripheral vision, denies loss of vision, denies tunnel vision/blind spots Ears: deny: decreased hearing, ear discharge, earache, tinnitus Ears, nose, mouth and throat: Reports as per HPI Breasts: absent: as per HPI, change in shape, gynecomastia, masses, nipple discharge, pain, skin changes, swelling Cardiovascular: Reports decreased exercise tolerance, Reports dyspnea on exertion, Reports edema, Reports paroxysmal nocturnal dyspnea, Reports shortness of breath Respiratory: Reports dyspnea, Reports home oxygen, Reports wheezing Gastrointestinal: Reports as per HPI Genitourinary: Reports as per HPI Menstruation: Reports as per HPI Musculoskeletal: Reports as per HPI Musculoskeletal: bilateral: ankle swelling, absent: ankle pain, ankle stiffness Integumentary: Reports as per HPI Neurological: Reports as per HPI Psychiatric: Reports as per HPI Endocrine: Reports as per HPI Hematologic/Lymphatic: Reports as per HPI Allergic/Immunologic: Reports as per HPI Past Medical History Past Medical History: Diabetes Mellitus, Hypertension, Musculoskeletal Disorder, Sleep Apnea/CPAP/BIPAP, Thyroid Disorder Additional Past Medical History / Comment(s): COPD, CHF with diastolic heart failure, hypertension, chronic kidney disease stage III, coronary artery disease with previous bypass surgery, history of pacemaker insertion 2014, diabetes mellitus, hypertension, obstructive sleep apnea, thyroid nodules, hyperlipidemia, history of smoking in the order of [id number] History of Any Multi-Drug Resistant Organisms: ESBL Date of last positivie culture/infection: 10/18/19 MDRO Source:: ESBL URINE Past Surgical History: Appendectomy, Back Surgery, Bariatric Surgery, Coronary Bypass/CABG, Heart Catheterization, Hysterectomy, Pacemaker Additional Past Surgical History / Comment(s): LAP BAND, CATARACT LEFT EYE, NEUROMA ON FOOT, KNEE ARTHROSCOPY, PACEMAKER ([employer] 04/18/2015) Partial thyroidectomy 1999 Past Anesthesia/Blood Transfusion Reactions: No Reported Reaction Type of Cardiac Device: Permanent Pacemaker Device Placement Date:: 04/18/2015 [employer] Past Psychological History: No Psychological Hx Reported Smoking Status: Current every day smoker Past Alcohol Use History: None Reported Past Drug Use History: None Reported - Past Family History Son(s) Family Medical History: Cancer Additional Family Medical History / Comment(s): MELANOMA Brother(s) Family Medical History: Cancer Father History Unknown: Yes Family Medical History: Cancer Mother Family Medical History: Coronary Artery Disease (CAD) Medications and Allergies Home Medications Medication Instructions Recorded Confirmed Type Simvastatin [Zocor] 5 mg PO HS 11/29/17 11/24/20 History Insulin Lispro [humaLOG Kwikpen] 10 unit SQ AC-TID 02/14/20 11/24/20 History Aspirin EC [Ecotrin Low Dose] 81 mg PO DAILY 03/09/20 11/24/20 History Clopidogrel [Plavix] 75 mg PO DAILY 03/27/20 11/24/20 History Ergocalciferol (Vitamin D2) 1,250 mcg PO BONDS 11/17/20 11/24/20 History [Vitamin D2 (50,000 Iu)] Mirtazapine 15 mg PO DAILY 11/17/20 11/24/20 History Torsemide [Demadex] 20 mg PO DAILY 11/17/20 11/24/20 History Albuterol Nebulized [Ventolin 2.5 mg INHALATION RT-QID PRN 11/24/20 11/24/20 History Nebulized] Insulin Detemir [Levemir Flextouch] 20 - 25 units SQ HS 11/24/20 11/24/20 History Temazepam 30 mg PO HS 11/24/20 11/24/20 History carvediloL [Coreg] 6.25 mg PO BID 11/24/20 11/24/20 History Allergies Allergy/AdvReac Type Severity Reaction Status Date / Time Sulfa (Sulfonamide Allergy Unknown Verified 11/24/20 17:23 Antibiotics) sulfamethoxazole Allergy Unknown Verified 11/24/20 17:23 [From Bactrim] trimethoprim [From Bactrim] Allergy Unknown Verified 11/24/20 17:23 Physical Exam Vitals: Vital Signs Temp Pulse Pulse Resp BP Pulse Ox 11/27/20 04:00 98.9 F 60 18 144/74 99 11/27/20 02:00 62 18 11/27/20 00:00 98.9 F 62 18 158/67 99 11/26/20 20:22 68 11/26/20 20:08 66 99 11/26/20 20:00 99.7 F H 62 18 155/66 100 11/26/20 16:00 18 167/60 98 11/26/20 15:36 68 11/26/20 15:25 64 11/26/20 13:52 63 18 11/26/20 12:00 63 18 172/62 99 11/26/20 11:38 60 03/21/21 11:27 60 Intake and Output 11/26/20 11/27/20 11/27/20 22:59 06:59 14:59 Intake Total 680 Output Total 600 550 Balance 80 -550 Intake: Oral 680 Output: Urine 600 550 Other: Voiding Method Indwelling Catheter Indwelling Catheter Weight 94.7 kg GENERAL: Well-developed in no acute distress. Patient is currently on 4 L of oxygen by nasal cannula. Head exam was generally normal. There was no scleral icterus or corneal arcus. Mucous membranes were moist. HEENT: Head is normocephalic. Pupils are equal, round. Sclerae anicteric. Mucous membranes of the mouth are moist. Neck supple. No JVD or thyromegaly LUNGS: Respirations even and unlabored. Lungs diminished with scattered rhonchi and expiratory wheezing HEART: Regular rate and rhythm. S1 and S2 heard. Systolic murmur. Abdominal exam revealed normal bowel sounds. The abdomen was soft, non-tender, and without masses, organomegaly, or appreciable enlargement of the abdominal aorta. EXTREMITIES: Normal range of motion. No clubbing or cyanosis. Peripheral pulses intact. 2+ bilateral lower extremity edema NEUROLOGIC: Awake and alert. Oriented x 3. Neurologically, the patient is awake and alert and the patient does not have any focal neurological deficit. Cranial nerves are essentially intact. Results - Laboratory Findings CBC and BMP: 11/27/20 07:32 11/27/20 07:32 PT/INR, D-dimer PT 11.3 sec (9.0-12.0) 11/24/20 15:58 INR 1.1 (<1.2) 11/24/20 15:58 Abnormal lab findings: Abnormal Labs 11/24/20 11/24/20 11/24/20 15:58 15:58 15:58 RBC 3.33 L Hgb 9.5 L Hct 30.6 L MCHC Plt Count 137 L Lymphocytes # Monocytes # APTT 21.4 L Potassium Chloride 109 H BUN 72 H Creatinine 2.68 H Glucose 111 H POC Glucose (mg/dL) Calcium % Saturation Total Protein Albumin Urine Protein Urine Blood Ur Leukocyte Esterase Urine RBC Urine WBC Urine Bacteria Urine Mucus 11/24/20 11/25/20 11/25/20 19:55 07:17 08:52 RBC 3.29 L Hgb 9.4 L Hct 30.6 L MCHC 30.5 L Plt Count 123 L Lymphocytes # 0.7 L Monocytes # APTT Potassium Chloride BUN Creatinine Glucose POC Glucose (mg/dL) 119 H 159 H Calcium % Saturation Total Protein Albumin Urine Protein Urine Blood Ur Leukocyte Esterase Urine RBC Urine WBC Urine Bacteria Urine Mucus 11/25/20 11/25/20 11/25/20 08:52 08:52 12:11 RBC Hgb Hct MCHC Plt Count Lymphocytes # Monocytes # APTT Potassium 5.3 H Chloride 109 H BUN 71 H Creatinine 2.56 H Glucose 149 H POC Glucose (mg/dL) 158 H Calcium % Saturation 63.28 H Total Protein Albumin Urine Protein Urine Blood Ur Leukocyte Esterase Urine RBC Urine WBC Urine Bacteria Urine Mucus 11/25/20 11/25/20 11/25/20 16:55 20:05 23:26 RBC Hgb Hct MCHC Plt Count Lymphocytes # Monocytes # APTT Potassium Chloride BUN Creatinine Glucose POC Glucose (mg/dL) 127 H 188 H Calcium % Saturation Total Protein Albumin Urine Protein 1+ H Urine Blood Small H Ur Leukocyte Esterase Large H Urine RBC 10 H Urine WBC 58 H Urine Bacteria Moderate H Urine Mucus Rare H 11/26/20 11/26/20 11/26/20 07:17 07:17 20:50 RBC Hgb Hct MCHC Plt Count Lymphocytes # Monocytes # APTT Potassium Chloride 108 H BUN 74 H Creatinine 2.78 H Glucose 137 H POC Glucose (mg/dL) 149 H 123 H Calcium 7.9 L % Saturation Total Protein Albumin Urine Protein Urine Blood Ur Leukocyte Esterase Urine RBC Urine WBC Urine Bacteria Urine Mucus 11/27/20 11/27/20 11/27/20 07:08 07:32 07:32 RBC 3.22 L Hgb 9.5 L Hct 30.3 L MCHC Plt Count 118 L Lymphocytes # 0.7 L Monocytes # 1.2 H APTT Potassium 5.2 H Chloride BUN 76 H Creatinine 3.02 H Glucose 162 H POC Glucose (mg/dL) 142 H Calcium % Saturation Total Protein 5.9 L Albumin 3.3 L Urine Protein Urine Blood Ur Leukocyte Esterase Urine RBC Urine WBC Urine Bacteria Urine Mucus Assessment and Plan Plan: 1 shortness of breath predominantly due to CHF exacerbation in addition to a possible component of COPD. Patient is responding nicely to diuretics. The patient presented with increased interstitial edema and elevated proBNP level in addition to increased lower extremity edema on all these facts support diagnosis of underlying CHF/fluid overload specially the patient is a component of chronic kidney disease at baseline 2 CHF with impaired ejection fraction of 45-50% and moderate to severe mitral regurgitation pulmonary patient 3 COPD 4 acute on chronic hypoxic respiratory failure, secondary to above 5. chronic kidney disease, stage III 6. History of coronary artery disease status post bypass grafting 19 years ago 7. History of CHF with systolic and diastolic dysfunction, echocardiogram showed low normal EF of 45% with moderate/severe mitral regurgitation, trace tricuspid regurg, and pulmonary hypertension 8. Diabetes mellitus 9. Chronic smoker, carries 50 years of smoking of less than a pack a day, and more recently started vaping in an attempt to quit smoking 10. Oxygen dependent COPD, not consistently compliant with oxygen 11. Hypertension 12. Hyperlipidemia 13. Permanent pacemaker insertion in 2015 14. Obesity, with history of lap band 15. Obstructive sleep apnea on BiPAP machine Plan Support the use of gentle diuresis and renal function is going up and the patient is on diuretics and the patient continues to have increased lower extremity edema. The patient is currently on Lasix 60 mg IV push every 8 hours. Monitor renal function Cardiology consultation Continue DuoNeb nebulized treatments around the clock Levemir insulin 20 units along with sliding scale insulin coverage Start the patient on DuoNeb nebulized treatments around the clock and add Solu- Medrol 40 mg every 12 hours and monitor the blood sugar Smoking cessation counseling was done Will follow
[2020-11-27] MEDS: IPRATROPIUM-ALBUTEROL 3 ML NEB INHALATION SCH ×3 (11:32→18:50)
--- NOTE | 2020-11-27 12:03 | P.PN ---
Subjective Patient seen and examined sitting up on the edge of the bed. She continues to feel short of breath at rest as well as with exertion. Nephrology is increased her Lasix to 3 times a day and added Zaroxolyn. Creatinine is mildly worse today. Output for the last 24 hours is 1150 mL creating a negative fluid balance wall january. Blood pressure 160/50 heart rate 68 afebrile maintaining oxygen saturation on nasal cannula. Laboratory data reviewed, WBC 6.5, hemoglobin 9.5, platelets 118, sodium 140, potassium 5.2, creatinine 3.02. GENERAL: Well-appearing, well-nourished and in no acute distress. NECK: Supple without JVD or thyromegaly. LUNGS: Respiration equal and unlabored. Scattered rhonchi, diminished bilaterally, no rales or wheezes. HEART: Regular rate and rhythm with systolic ejection murmur at the base, no rubs or gallops. S1 and S2 heard. EXTREMITIES: Normal range of motion, bilateral lower extremity 1+ eating edema. No clubbing or cyanosis. Peripheral pulses intact. ASSESSMENT Acute on chronic heart failure with preserved ejection fraction Acute exacerbation of COPD Acute on chronic kidney disease Coronary artery disease status post bypass grafting Hypertension Dyslipidemia Pulmonary hypertension, moderate Diabetes mellitus Mitral regurgitation, severe Chronic nicotine dependence PLAN Continue IV diuresis per nephrology. Her lungs are clear however her weight is increasing daily and renal function worsening each day. Consider possible fluid overload secondary to kidney disease rather than heart failure. Repeat chest x-ray. Continue to document accurate intake and output along with daily weights. Nurse Practitioner note has been reviewed, I agree with a documented findings and plan of care. Patient was seen and examined. Objective - Vital Signs Vital signs: Vital Signs Temp 99.1 F 11/27/20 08:00 Pulse 68 11/27/20 11:46 Resp 18 11/27/20 08:00 BP 160/50 11/27/20 08:00 Pulse Ox 94 L 11/27/20 08:00 Intake & Output 11/26/20 11/27/20 11/27/20 18:59 06:59 18:59 Intake Total 480 560 Output Total 600 550 Balance -120 10 Weight 94.7 kg Intake: Oral 480 560 Output: Urine 600 550 Other: Voiding Method Indwelling Catheter Indwelling Catheter Indwelling Catheter - Labs CBC & Chem 7: 11/27/20 07:32 11/27/20 07:32 Labs: Abnormal Lab Results - Last 24 Hours (Table) 11/26/20 11/27/20 11/27/20 Range/Units 20:50 07:08 07:32 RBC 3.22 L (3.80-5.40) m/uL Hgb 9.5 L (11.4-16.0) gm/dL Hct 30.3 L (34.0-46.0) % Plt Count 118 L (150-450) k/uL Lymphocytes # 0.7 L (1.0-4.8) k/uL Monocytes # 1.2 H (0-1.0) k/uL Potassium (3.5-5.1) mmol/L BUN (7-17) mg/dL Creatinine (0.52-1.04) mg/dL Glucose (74-99) mg/dL POC Glucose (mg/dL) 123 H 142 H (75-99) mg/dL Total Protein (6.3-8.2) g/dL Albumin (3.5-5.0) g/dL 11/27/20 Range/Units 07:32 RBC (3.80-5.40) m/uL Hgb (11.4-16.0) gm/dL Hct (34.0-46.0) % Plt Count (150-450) k/uL Lymphocytes # (1.0-4.8) k/uL Monocytes # (0-1.0) k/uL Potassium 5.2 H (3.5-5.1) mmol/L BUN 76 H (7-17) mg/dL Creatinine 3.02 H (0.52-1.04) mg/dL Glucose 162 H (74-99) mg/dL POC Glucose (mg/dL) (75-99) mg/dL Total Protein 5.9 L (6.3-8.2) g/dL Albumin 3.3 L (3.5-5.0) g/dL Microbiology - Last 24 Hours (Table) 11/25/20 23:26 Urine Culture - Preliminary Urine,Catheterized
[2020-11-27 12:10] LABS: Glucose,Whole Blood 91 mg/dL (75-99)
--- NOTE | 2020-11-27 12:38 | CDI ---
Documentation Clarification Form Date: 11/27/2020 12:22:57 PM From: Emely Martin CCS, CCDS Admit Date: 11/24/2020 05:49:00 PM Patient Name: Elza Avery Visit Number: [id number] Discharge Date: ATTENTION: The Clinical Documentation Specialists (CDI) and [facility] Coding Staff appreciate your assistance in clarifying documentation. Please respond to the clarification below the line at the bottom and electronically sign. The CDI & [facility] Coding staff will review the response and follow-up if needed. Please note: Queries are made part of the Legal Health Record. If you have any questions, please contact the author of this message via ITS. Dr. Lona Arias: There is conflicting documentation regarding the diagnosis of CHF in the medical record. Per the 11/25 History & Physical: Acute exacerbation of Diastolic CHF. History of Chronic Diastolic CHF. Per the 11/25 Cardiology Consult: Acute exacerbation Chronic Diastolic Heart Failure. Most recent ECHO in 2019 revealed EF 50-55% with Moderate Mitral Regurgitation. Per the 11/25 ECHO: Left ventricular systolic function mildly impaired with EF 45-50%. Severe mitral regurgitation, Mild Tricuspid regurgitation, Moderate pulmonary hypertension. History/Risk Factors: Chronic Diastolic CHF, Chronic Hypoxic Respiratory Failure, COPD on Home O2 4Lnc, CKD Stage III, DM II, Chronic Smoker, recently started Vaping, Hypertension, Hyperlipidemia, Pacemaker, Obesity with history of Bariatric Surgery and ELISABET. Clinical Indicators: VS 11/24: T 97.9, P 60, R 18, BP 164/67, PO 93 4Lnc, BMI: 33.7 11/24 LAB: Hgb 9.5, Pl Ct 137, APTT 21.4, BUN 72, Cr 2.68, Glucose 111, Troponin 0.018, BNP 29,400. Echocardiogram Results 10/28: Systolic EF 45-50%, Severe Mitral Regurgitation, Mild Tricuspid Regurgitation, Moderate Pulmonary Hypertension. Chest X Ray 11/24: Interval development of small pleural effusions. Cardiomegaly. There may be some mild volume overload vascular prominence. Treatment 11/24: IV Lasix 60 mg x1, INH Ventolin, O2 4Lnc In your professional opinion, can you please clarify the acuity and type of CHF if known? [ ] Systolic Heart Failure: [ ] Acute [ ] Chronic [ ] Acute on Chronic [ ] Diastolic Heart Failure: [ ] Acute [ ] Chronic [ ] Acute on Chronic [ ] Systolic & Diastolic Heart Failure: [ ] Acute [ ] Chronic [ ] Acute on Chronic Heart Failure [ ] Unable to Determine [ ] Other, please specify (Last Revision: December 2017) Acute on chronic diastolic heart failure [facility]
[2020-11-27] MEDS: metOLazone 5 MG TAB PO SCH (12:46)
[2020-11-27] MEDS: methylPREDNISolone SOD SUCCI 40 MG/ML 1 ML VIAL IV SCH ×3 (12:46→23:00)
--- NOTE | 2020-11-27 14:18 | PN ---
PROGRESS NOTE Patient is seen for followup for CKD and acute kidney injury as well as volume overload. The patient is maintained on IV Lasix. She has had fair urine output with 24-hour urine output of about 1150 mL. However, she is not in signet significant negative balance. The patient has been coughing. Oral intake is low. PHYSICAL EXAMINATION: Blood pressure this morning 160/50, heart rate 70 per minute. She is afebrile. EXAMINATION OF THE HEART: S1, S2. EXAMINATION OF THE LUNGS: Decreased breath sounds at bases. Abdomen is soft. Examination of lower extremities shows edema 1+ bilaterally. 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 LABS: Labs show sodium 140, potassium 5.2, BUN 76, creatinine 3.02, hemoglobin 9.5 g/dL. ASSESSMENT: 1. Chronic kidney disease, stage 4 secondary to diabetic kidney disease and nephrosclerosis with an element of acute kidney injury, mostly cardiorenal. Continue to diurese patient. I will increase the Lasix and I will also add Zaroxolyn. Repeat chest x-ray in a.m. 2. Mild hyperkalemia associated with acute kidney injury. Monitor closely. Maintain patient on low-potassium diet. 3. History of diastolic heart failure. 4. Urinary tract infection with urine culture growing Gram-negative bacilli. PLAN: Increase diuresis. Repeat chest x-ray. Continue antibiotics. Repeat labs in a.m. Pulmonary consultation has been ordered. MMLEVL / EDWIN: [id number] /
--- NOTE | 2020-11-27 16:15 | XR ---
EXAMINATION TYPE: XR chest 1V portable DATE OF EXAM: 11/27/2020 COMPARISON: Chest x-ray 11/24/2020 HISTORY: Shortness of breath TECHNIQUE: Single frontal view of the chest is obtained. FINDINGS: Patient is post median sternotomy and the heart is enlarged. There is a generator in the l eft pectoral region, leads are present in the right atrium and ventricle. Bibasilar increased attenua tion is present with obscured hemidiaphragms, blunting the costophrenic angles. Central vascularity a nd interstitium are increased. No evident pneumoperitoneum. Postop change noted to the left shoulder. Aorta is dense. IMPRESSION: Correlate for congestive heart failure with pleural effusions, follow-up is recommended. Ammonia not excluded.
[2020-11-27 16:56] LABS: Glucose,Whole Blood 224 mg/dL (75-99)
--- NOTE | 2020-11-27 17:41 | P.PN ---
Subjective Progress Note Date: 11/27/20 Elza Avery, is an 80-year-old female patient of Dr. Ward, who presented to [facility] emergency room with a chief complaint of shortness of breath, patient stated that she had worsening lower extremity edema and weight gain for the last 6 weeks she has a known history of diastolic congestive heart failure and history of COPD with chronic respiratory failure requiring home oxygen use, patient checks her pulse ox at home and it was down in the 80s and she decided to come to emergency room. Patient was evaluated in the emergency room her vital examination on presentation revealed a temperature of 97.9 pulse 60 respiration 18 and blood pressure 164/67 pulse ox 93% on 4 L nasal cannula, white blood count was 6.0 hemoglobin 9.5 platelet count 137, sodium 140 potassium 5.0 chloride 109 CO2 26 BUN 72 creatinine 2.68, AST and ALT within normal limits glucose 111 troponin at 0.018 BNP elevated at 29,400 coronavirus PCR was negative patient stated that she was vaccinated for Covid 19. Chest x- ray done in the emergency room revealed small bilateral pleural effusions, cardiomegaly, with evidence of fluid overload and vascular prominence, EKG done in the emergency room revealed dual paced rhythm. Patient was admitted to telemetry floor, nephrology consultation and cardiology consultation were requested. Past medical history is significant for history of coronary artery disease, history of chronic diastolic congestive heart failure, history of hypertension, history of hypothyroidism, history of chronic kidney disease, history of cardiac arrhythmia with history of pacemaker placement. On review of systems patient is complaining of cough and shortness of breath, and bilateral lower extremity swelling with weight gain otherwise she denies any complaints there is no fever or chills no headache or dizziness no chest pain no palpitation no nausea or vomiting no abdominal pain no diarrhea no blood in the stools no burning with urination no frequency or urgency and no hematuria there is no weakness or numbness in any of the extremities no change in vision speech or gait On on 11/26/2020 patient is alert and oriented 3 resting comfortably in bed. Patient reports minimum improvement with shortness of breath. Patient remains on IV Lasix. Nephrology cardiology services following. Pulmonary service is consulted. Swelling to lower extremities do appear slightly improved. Patient denies nausea vomiting or diarrhea. Patient denies any urinary burning or frequency On 11/27/2020 patient was seen and examined on the telemetry floor she is alert and oriented 3 in no distress. Patient reports minimum improvement with shortness of breath. Patient remains on IV Lasix. Nephrology cardiology services are following. Pulmonary service is consulted. Swelling to lower extremities do is slightly improved. otherwise she denies any complaints there is no fever or chills no headache or dizziness no chest pain no palpitation no nausea or vomiting no abdominal pain no diarrhea no blood in the stools no burning with urination no frequency or urgency and no hematuria there is no weakness or numbness in any of the extremities no change in vision speech or gai t Objective - Vital Signs Vital signs: Vital Signs Temp 98.9 F 11/27/20 04:00 Pulse 60 11/27/20 04:00 Resp 18 11/27/20 04:00 BP 144/74 11/27/20 04:00 Pulse Ox 99 11/27/20 04:00 Intake & Output 11/26/20 11/27/20 11/27/20 18:59 06:59 18:59 Intake Total 480 560 Output Total 600 550 Balance -120 10 Weight 94.7 kg Intake: Oral 480 560 Output: Urine 600 550 Other: Voiding Method Indwelling Catheter Indwelling Catheter - Exam In general patient is alert and oriented 3 in no apparent distress HEENT head normocephalic and atraumatic Neck is supple no JVD no goiter no lymphadenopathy Chest exam reveals a few scattered rhonchi no wheezing Cardiac exam reveals regular heart sounds S1 and S2 no gallops no murmurs Abdomen is soft nontender no organomegaly with normal bowel sounds Extremity exam reveals 2+ edema no cyanosis or clubbing Neurological examination reveals no gross focal deficit - Labs CBC & Chem 7: 11/27/20 07:32 11/27/20 07:32 Labs: Abnormal Lab Results - Last 24 Hours (Table) 11/26/20 11/27/20 11/27/20 Range/Units 20:50 07:08 07:32 RBC 3.22 L (3.80-5.40) m/uL Hgb 9.5 L (11.4-16.0) gm/dL Hct 30.3 L (34.0-46.0) % Plt Count 118 L (150-450) k/uL Lymphocytes # 0.7 L (1.0-4.8) k/uL Monocytes # 1.2 H (0-1.0) k/uL Potassium (3.5-5.1) mmol/L BUN (7-17) mg/dL Creatinine (0.52-1.04) mg/dL Glucose (74-99) mg/dL POC Glucose (mg/dL) 123 H 142 H (75-99) mg/dL Total Protein (6.3-8.2) g/dL Albumin (3.5-5.0) g/dL 11/27/20 Range/Units 07:32 RBC (3.80-5.40) m/uL Hgb (11.4-16.0) gm/dL Hct (34.0-46.0) % Plt Count (150-450) k/uL Lymphocytes # (1.0-4.8) k/uL Monocytes # (0-1.0) k/uL Potassium 5.2 H (3.5-5.1) mmol/L BUN 76 H (7-17) mg/dL Creatinine 3.02 H (0.52-1.04) mg/dL Glucose 162 H (74-99) mg/dL POC Glucose (mg/dL) (75-99) mg/dL Total Protein 5.9 L (6.3-8.2) g/dL Albumin 3.3 L (3.5-5.0) g/dL Microbiology - Last 24 Hours (Table) 11/25/20 23:26 Urine Culture - Preliminary Urine,Catheterized Assessment and Plan Plan: Worsening shortness of breath multi-factorial related to acute exacerbation of diastolic congestive heart failure, with evidence of bilateral pleural effusion and underlying advanced chronic obstructive pulmonary disease with history of chronic hypoxic respiratory failure requiring home oxygen use. Evidence of anemia hemoglobin is 9.5 on presentation will check iron vitamin B12 and folate levels Underlying history of chronic kidney disease, patient is followed by Dr. Roland she stated that last year she had to be on dialysis for several months, nephrology consultation requested Underlying history of chronic diastolic congestive heart failure will check echocardiogram Will consult cardiology Underlying history of diabetes mellitus Underlying history of hypertension Underlying history of hyperlipidemia Underlying history of coronary artery disease, maintained on Plavix and aspirin Underlying history of cardiac arrhythmia with history of pacemaker placement Underlying history of depression maintained on Mirtazapine Underlying history of chronic obstructive pulmonary disease Urinary tract infection. Patient started on Rocephin urine culture ordered At this time patient is admitted to telemetry floor cardiology consultation and nephrology consultation requested Patient was started on IV Lasix for diuresis Home medications reviewed and reordered Anemia workup initiated Will follow closely
[2020-11-27] MEDS: BUDESONIDE 1 MG/2 ML NEBU INHALATION SCH (18:50)
[2020-11-27] MEDS: FORMOTEROL FUMARATE 20 MCG/2 ML NEBU INHALATION SCH (18:50)
[2020-11-27 20:01] LABS: Glucose,Whole Blood 281 mg/dL (75-99)
[2020-11-27] MEDS: NICOTINE 14MG/24HR PATCH TRANSDERM SCH (20:50)
[2020-11-27] MEDS: INSULIN DETEMIR (LEVEMIR) 100 UNIT/ML SYR SQ SCH (20:50)
[2020-11-27] MEDS: ATORVASTATIN 10 MG TAB PO SCH (20:50)
[2020-11-27] MEDS: TEMAZEPAM 15 MG CAP PO SCH (20:50)
[2020-11-28] MEDS: carvediloL 6.25 MG TAB PO SCH ×2 (07:07→14:51)
[2020-11-28] MEDS: INSULIN ASPART (NovoLOG) 100 UNIT/ML VIAL SQ SCH ×4 (07:08→21:59)
[2020-11-28 07:09] LABS: Glucose,Whole Blood 238 mg/dL (75-99)
[2020-11-28] MEDS: IPRATROPIUM-ALBUTEROL 3 ML NEB INHALATION SCH ×4 (07:43→19:04)
[2020-11-28] MEDS: FORMOTEROL FUMARATE 20 MCG/2 ML NEBU INHALATION SCH ×2 (07:43→19:04)
[2020-11-28] MEDS: BUDESONIDE 1 MG/2 ML NEBU INHALATION SCH ×2 (07:43→19:04)
[2020-11-28 08:05] LABS: Calcium 8.2 mg/dL (8.4-10.2); Potassium 5.2 mmol/L (3.5-5.1)
[2020-11-28] MEDS: ASPIRIN 81 MG PO SCH (10:15)
[2020-11-28] MEDS: metOLazone 5 MG TAB PO SCH (10:17)
[2020-11-28] MEDS: CLOPIDOGREL 75 MG TAB PO SCH (10:17)
[2020-11-28] MEDS: MIRTAZAPINE 15 MG TAB PO SCH (10:18)
--- NOTE | 2020-11-28 11:00 | P.PN ---
Subjective Progress Note Date: 11/28/20 80-year-old female patient presented to the hospital because of feeling short of breath for the past 6 weeks. Shortness of breath got worse over the past few days and for that reason the patient came into the hospital. The patient reported that she was unable to lay down flat in bed because of worsening shortness of breath and the patient also had increased lower extremity edema. The patient has multiple medical problems including COPD and chronic hypoxic respiratory failure and the patient was admitted on oxygen at 2 L per minute nasal cannula chronic kidney disease, hypertension, hyperlipidemia, diabetes mellitus and coronary artery disease and the patient undergone previous bypass surgery. The patient also has a pacemaker in place. The patient at a time of admission showed to have a paced rhythm on the EKG. Chest x-ray showed small bilateral pleural effusion in addition to cardiomegaly and prominent vascular markings. White cell count was at 5.1 with a hemoglobin of 9.4 and platelets of 123. BUN was 71 with a creatinine of 2.56 and a troponin 1 was negative. ProBNP level was 99,400. The patient had an echocardiogram that showed an ejection fraction of 45-50% with severe mitral regurgitation and moderate degree of pulmonary hypertension. Patient was diagnosed having an acute decompensated heart failure and COPD exacerbation. Noted the patient is a chronic smoker. A pulmonary consultation was also requested accordingly. Currently the patient is on IV Lasix 60 mg every 12 hours, the patient is also on 4 L about 2 by nasal cannula with a pulse ox of 98-99% . note that the covid 19 PCR came back negative. This morning, the patient is on 4 L of oxygen by nasal cannula. Saturations around 99%. She is afebrile. She remains on IV Lasix 60 mg every 8 hours. The with balance over the past 24 hours has been -620 mL and the patient's BUN and creatinine are 76 and 3.02 respectively. Potassium level is up to 5.2. On today's evaluation of 11/28/2016, the patient is being seen in follow-up. The patient is being treated for CHF predominantly and a mild component of COPD. She had interstitial edema and small bilateral pleural effusions and her chest x-ray. She is on Lasix 60 mg every 8 hours. She is a negative fluid balance of 1.6 L over the past 24 hours. She is also empirically covered with antibiotics. She is on DuoNeb neb last treatment and IV Solu-Medrol 40 mg every 8 hours as the patient was having some limited amount of wheezing on yesterday's evaluation. The blood work from today is showing a BUN of 2081 with a creatinine of 2.8 and the numbers have improved compared to yesterday. Woke was up to 246 and this is probably related to steroids. Potassium level is up to 5.2. Covid 19 was negative. UA was abnormal and urine culture are still pending he was the patient is covered with IV Rocephin regarding the possibility of a gram-negative UTI. She remains on oxygen at 4 L with a pulse ox of 99%. Objective - Vital Signs Vital signs: Vital Signs Temp 98.0 F 11/28/20 08:00 Pulse 62 11/28/20 08:00 Resp 17 11/28/20 08:00 BP 125/56 11/28/20 08:00 Pulse Ox 99 11/28/20 08:00 Intake & Output 11/27/20 11/28/20 11/28/20 18:59 06:59 18:59 Intake Total 660 Output Total 875 800 725 Balance -875 -800 -65 Weight 93.7 kg Intake: Oral 660 Output: Urine 875 800 725 Other: Voiding Method Indwelling Catheter Indwelling Catheter Indwelling Catheter - Exam GENERAL: Well-developed in no acute distress. Patient is currently on 4 L of oxygen by nasal cannula. Head exam was generally normal. There was no scleral icterus or corneal arcus. Mucous membranes were moist. HEENT: Head is normocephalic. Pupils are equal, round. Sclerae anicteric. Mucous membranes of the mouth are moist. Neck supple. No JVD or thyromegaly LUNGS: Respirations even and unlabored. Lungs diminished with scattered rhonchi and expiratory wheezing HEART: Regular rate and rhythm. S1 and S2 heard. Systolic murmur. Abdominal exam revealed normal bowel sounds. The abdomen was soft, non-tender, and without masses, organomegaly, or appreciable enlargement of the abdominal aorta. EXTREMITIES: Normal range of motion. No clubbing or cyanosis. Peripheral pulses intact. 2+ bilateral lower extremity edema NEUROLOGIC: Awake and alert. Oriented x 3. Neurologically, the patient is awake and alert and the patient does not have any focal neurological deficit. Cranial nerves are essentially intact. - Labs CBC & Chem 7: 11/27/20 07:32 11/28/20 06:57 Labs: Abnormal Lab Results - Last 24 Hours (Table) 11/27/20 11/27/20 11/28/20 Range/Units 16:54 20:00 06:57 Sodium 134 L (137-145) mmol/L Potassium 5.2 H (3.5-5.1) mmol/L BUN 81 H (7-17) mg/dL Creatinine 2.87 H (0.52-1.04) mg/dL Glucose 246 H (74-99) mg/dL POC Glucose (mg/dL) 224 H 281 H (75-99) mg/dL Calcium 8.2 L (8.4-10.2) mg/dL 11/28/20 Range/Units 07:07 Sodium (137-145) mmol/L Potassium (3.5-5.1) mmol/L BUN (7-17) mg/dL Creatinine (0.52-1.04) mg/dL Glucose (74-99) mg/dL POC Glucose (mg/dL) 238 H (75-99) mg/dL Calcium (8.4-10.2) mg/dL Microbiology - Last 24 Hours (Table) 11/25/20 23:26 Urine Culture - Preliminary Urine,Catheterized Gram Neg Bacilli Assessment and Plan Plan: 1 shortness of breath predominantly due to CHF exacerbation in addition to a possible component of COPD. Patient is responding nicely to diuretics. The patient presented with increased interstitial edema and elevated proBNP level in addition to increased lower extremity edema on all these facts support diagnosis of underlying CHF/fluid overload specially the patient is a component of chronic kidney disease at baseline and the patient is clinically improving currently on 40s about 2 by nasal cannula and the patient is responding nicely to diuretics and she is in a negative fluid balance. 2 CHF with impaired ejection fraction of 45-50% and moderate to severe mitral regurgitation pulmonary patient 3 COPD 4 acute on chronic hypoxic respiratory failure, secondary to above 5. chronic kidney disease, stage III, creatinine slightly improved compared to yesterday 6. History of coronary artery disease status post bypass grafting 19 years ago 7. History of CHF with systolic and diastolic dysfunction, echocardiogram showed low normal EF of 45% with moderate/severe mitral regurgitation, trace tricuspid regurg, and pulmonary hypertension 8. Diabetes mellitus 9. Chronic smoker, carries 50 years of smoking of less than a pack a day, and more recently started vaping in an attempt to quit smoking 10. Oxygen dependent COPD, not consistently compliant with oxygen 11. Hypertension 12. Hyperlipidemia 13. Permanent pacemaker insertion in 2014 14. Obesity, with history of lap band 15. Obstructive sleep apnea on BiPAP machine Plan Continue diuretics. The patient is currently on Lasix 60 mg IV push every 8 hours. Monitor renal function Continued IV Solu-Medrol for another 24 hours Continue DuoNeb nebulized treatments around the clock Levemir insulin 20 units along with sliding scale insulin coverage DuoNeb nebulized treatments around the clock and add Solu-Medrol 40 mg every 12 hours and monitor the blood sugar Smoking cessation counseling was done Will follow
--- NOTE | 2020-11-28 11:04 | P.PN ---
Subjective Progress Note Date: 11/28/20 Elza Avery, is an 80-year-old female patient of Dr. Ward, who presented to [facility] emergency room with a chief complaint of shortness of breath, patient stated that she had worsening lower extremity edema and weight gain for the last 6 weeks she has a known history of diastolic congestive heart failure and history of COPD with chronic respiratory failure requiring home oxygen use, patient checks her pulse ox at home and it was down in the 80s and she decided to come to emergency room. Patient was evaluated in the emergency room her vital examination on presentation revealed a temperature of 97.9 pulse 60 respiration 18 and blood pressure 164/67 pulse ox 93% on 4 L nasal cannula, white blood count was 6.0 hemoglobin 9.5 platelet count 137, sodium 140 potassium 5.0 chloride 109 CO2 26 BUN 72 creatinine 2.68, AST and ALT within normal limits glucose 111 troponin at 0.018 BNP elevated at 29,400 coronavirus PCR was negative patient stated that she was vaccinated for Covid 19. Chest x- ray done in the emergency room revealed small bilateral pleural effusions, cardiomegaly, with evidence of fluid overload and vascular prominence, EKG done in the emergency room revealed dual paced rhythm. Patient was admitted to telemetry floor, nephrology consultation and cardiology consultation were requested. Past medical history is significant for history of coronary artery disease, history of chronic diastolic congestive heart failure, history of hypertension, history of hypothyroidism, history of chronic kidney disease, history of cardiac arrhythmia with history of pacemaker placement. On review of systems patient is complaining of cough and shortness of breath, and bilateral lower extremity swelling with weight gain otherwise she denies any complaints there is no fever or chills no headache or dizziness no chest pain no palpitation no nausea or vomiting no abdominal pain no diarrhea no blood in the stools no burning with urination no frequency or urgency and no hematuria there is no weakness or numbness in any of the extremities no change in vision speech or gait On on 11/26/2020 patient is alert and oriented 3 resting comfortably in bed. Patient reports minimum improvement with shortness of breath. Patient remains on IV Lasix. Nephrology cardiology services following. Pulmonary service is consulted. Swelling to lower extremities do appear slightly improved. Patient denies nausea vomiting or diarrhea. Patient denies any urinary burning or frequency On 11/27/2020 patient was seen and examined on the telemetry floor she is alert and oriented 3 in no distress. Patient reports minimum improvement with shortness of breath. Patient remains on IV Lasix. Nephrology cardiology services are following. Pulmonary service is consulted. Swelling to lower extremities do is slightly improved. otherwise she denies any complaints there is no fever or chills no headache or dizziness no chest pain no palpitation no nausea or vomiting no abdominal pain no diarrhea no blood in the stools no burning with urination no frequency or urgency and no hematuria there is no weakness or numbness in any of the extremities no change in vision speech or gai t On 11/29/2019 patient is alert and oriented x 3. Patient appears improved. wt decreasing grom 94.7 kg to 93.7 kg. remains on lasix 60mg IV q8hr. creatinine slightly improved. swelling to lower extremity improved. Denies any chest pain. Denies any nausea vomiting or diarrhea. denies any urinary burning or frequency. Objective - Vital Signs Vital signs: Vital Signs Temp 98.0 F 11/28/20 08:00 Pulse 62 11/28/20 08:00 Resp 17 11/28/20 08:00 BP 125/56 11/28/20 08:00 Pulse Ox 99 11/28/20 08:00 Intake & Output 11/27/20 11/28/20 11/28/20 18:59 06:59 18:59 Intake Total 660 Output Total 875 800 725 Balance -875 -800 -65 Weight 93.7 kg Intake: Oral 660 Output: Urine 875 800 725 Other: Voiding Method Indwelling Catheter Indwelling Catheter Indwelling Catheter - Exam In general patient is alert and oriented 3 in no apparent distress HEENT head normocephalic and atraumatic Neck is supple no JVD no goiter no lymphadenopathy Chest exam reveals a few scattered rhonchi no wheezing Cardiac exam reveals regular heart sounds S1 and S2 no gallops no murmurs Abdomen is soft nontender no organomegaly with normal bowel sounds Extremity exam reveals 2+ edema no cyanosis or clubbing Neurological examination reveals no gross focal deficit - Labs CBC & Chem 7: 11/27/20 07:32 11/28/20 06:57 Labs: Abnormal Lab Results - Last 24 Hours (Table) 11/27/20 11/27/20 11/28/20 Range/Units 16:54 20:00 06:57 Sodium 134 L (137-145) mmol/L Potassium 5.2 H (3.5-5.1) mmol/L BUN 81 H (7-17) mg/dL Creatinine 2.87 H (0.52-1.04) mg/dL Glucose 246 H (74-99) mg/dL POC Glucose (mg/dL) 224 H 281 H (75-99) mg/dL Calcium 8.2 L (8.4-10.2) mg/dL 11/28/20 Range/Units 07:07 Sodium (137-145) mmol/L Potassium (3.5-5.1) mmol/L BUN (7-17) mg/dL Creatinine (0.52-1.04) mg/dL Glucose (74-99) mg/dL POC Glucose (mg/dL) 238 H (75-99) mg/dL Calcium (8.4-10.2) mg/dL Microbiology - Last 24 Hours (Table) 11/25/20 23:26 Urine Culture - Preliminary Urine,Catheterized Gram Neg Bacilli Assessment and Plan Plan: Worsening shortness of breath multi-factorial related to acute exacerbation of diastolic congestive heart failure, with evidence of bilateral pleural effusion and underlying advanced chronic obstructive pulmonary disease with history of chronic hypoxic respiratory failure requiring home oxygen use. Evidence of anemia hemoglobin is 9.5 on presentation will check iron vitamin B12 and folate levels Underlying history of chronic kidney disease, patient is followed by Dr. Roland she stated that last year she had to be on dialysis for several months Underlying history of chronic diastolic congestive heart failure will check echocardiogram Will consult cardiology Underlying history of diabetes mellitus Underlying history of hypertension Underlying history of hyperlipidemia Underlying history of coronary artery disease, maintained on Plavix and aspirin Underlying history of cardiac arrhythmia with history of pacemaker placement Underlying history of depression maintained on Mirtazapine Underlying history of chronic obstructive pulmonary disease Urinary tract infection. Patient started on Rocephin urine culture ordered COPD exacerbation. maintained on steroids Patient maintained on IV Lasix for diuresis nephrology, cardiology and pulmonary services following
[2020-11-28] MEDS: FUROSEMIDE 10 MG/ML 10 ML VIAL IV SCH ×3 (11:15→22:14)
[2020-11-28] MEDS: methylPREDNISolone SOD SUCCI 40 MG/ML 1 ML VIAL IV SCH ×2 (11:15→14:51)
--- NOTE | 2020-11-28 11:56 | PN ---
PROGRESS NOTE Patient is seen for followup for CKD. She was admitted with volume overload and is currently being diuresed. Today patient states she is feeling slightly better. A 24- hour output was about 1675 and her weight is finally decreased today. PHYSICAL EXAMINATION: Blood pressure 125/56, heart rate 62 per minute. She is afebrile. EXAMINATION OF THE HEART: S1, S2. EXAMINATION OF THE LUNGS: Bilateral breath sounds are heard. Decreased breath sounds at bases. Abdomen is soft, obese. EXAMINATION OF LOWER EXTREMITIES: 2+ edema. 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 LABS: Labs show sodium 134, potassium 5.2, chloride 102, BUN 81, creatinine 2.87. ASSESSMENT: 1. Chronic kidney disease NKF stage 4 with history of dialysis dependent renal failure for about 2 months, currently off of dialysis for about 5 months now. Renal function fairly stable. Component of acute kidney injury mostly cardiorenal currently stable. We will continue to diurese the patient. 2. Mild hyperkalemia associated with chronic kidney disease and acute kidney injury, currently stable. 3. History of diastolic heart failure. 4. Urinary tract infection with urine culture growing Citrobacter freundii. 5. Congestive heart failure, acute on top of chronic, mostly diastolic. PLAN: Continue current diuresis. Repeat labs in a.m. MMODL / IJN: [id number] /
[2020-11-28 12:03] LABS: Glucose,Whole Blood 303 mg/dL (75-99)
--- NOTE | 2020-11-28 12:18 | P.PN ---
Subjective Patient seen and examined sitting up on the edge of the bed. She continues to feel short of breath at rest as well as with exertion. Nephrology is increased her Lasix to 3 times a day and added Zaroxolyn. Creatinine is mildly worse today. Output for the last 24 hours is 1150 mL creating a negative fluid balance wall january. Blood pressure 160/50 heart rate 68 afebrile maintaining oxygen saturation on nasal cannula. Laboratory data reviewed, WBC 6.5, hemoglobin 9.5, platelets 118, sodium 140, potassium 5.2, creatinine 3.02. 11/28/2020 Patient seen and examined sitting up in bed in no acute distress. She feels his breathing is slightly improved in the last 24 hours however not back to baseline. She continues to have a cough intermittently. She has no symptoms of chest discomfort. Blood pressure 146/67 heart rate 60 afebrile maintaining oxygen saturation on nasal cannula. Laboratory data reviewed, sodium 134, potassium 5.2, creatinine 2.87. Her weight is down 1 kg from yesterday. She is maintaining a negative fluid balance. Currently maintained on Lasix 60 mg IV 3 times a day and Zaroxolyn per nephrology. She is also receiving IV steroids. GENERAL: Well-appearing, well-nourished and in no acute distress. NECK: Supple without JVD or thyromegaly. LUNGS: Respiration equal and unlabored. Scattered rhonchi, diminished bilaterally, no rales or wheezes. HEART: Regular rate and rhythm with systolic ejection murmur at the base, no rubs or gallops. S1 and S2 heard. EXTREMITIES: Normal range of motion, bilateral lower extremity 1+ eating edema. No clubbing or cyanosis. Peripheral pulses intact. ASSESSMENT Acute on chronic heart failure with preserved ejection fraction Acute exacerbation of COPD Acute on chronic kidney disease Coronary artery disease status post bypass grafting Hypertension Dyslipidemia Pulmonary hypertension, moderate Diabetes mellitus Mitral regurgitation, severe Chronic nicotine dependence PLAN Continue IV diuresis per nephrology. Nurse Practitioner note has been reviewed, I agree with a documented findings and plan of care. Patient was seen and examined. Objective - Vital Signs Vital signs: Vital Signs Temp 98 F 11/28/20 11:44 Pulse 60 11/28/20 11:44 Resp 18 11/28/20 11:44 BP 146/67 11/28/20 11:44 Pulse Ox 99 11/28/20 11:44 Intake & Output 11/27/20 11/28/20 11/28/20 18:59 06:59 18:59 Intake Total 660 Output Total 875 800 725 Balance -875 -800 -65 Weight 93.7 kg Intake: Oral 660 Output: Urine 875 800 725 Other: Voiding Method Indwelling Catheter Indwelling Catheter Indwelling Catheter - Labs CBC & Chem 7: 11/27/20 07:32 11/28/20 06:57 Labs: Abnormal Lab Results - Last 24 Hours (Table) 11/27/20 11/27/20 11/28/20 Range/Units 16:54 20:00 06:57 Sodium 134 L (137-145) mmol/L Potassium 5.2 H (3.5-5.1) mmol/L BUN 81 H (7-17) mg/dL Creatinine 2.87 H (0.52-1.04) mg/dL Glucose 246 H (74-99) mg/dL POC Glucose (mg/dL) 224 H 281 H (75-99) mg/dL Calcium 8.2 L (8.4-10.2) mg/dL 11/28/20 11/28/20 Range/Units 07:07 11:58 Sodium (137-145) mmol/L Potassium (3.5-5.1) mmol/L BUN (7-17) mg/dL Creatinine (0.52-1.04) mg/dL Glucose (74-99) mg/dL POC Glucose (mg/dL) 238 H 303 H (75-99) mg/dL Calcium (8.4-10.2) mg/dL Microbiology - Last 24 Hours (Table) 11/25/20 23:26 Urine Culture - Final Urine,Catheterized Citrobacter freundii
[2020-11-28 17:06] LABS: Glucose,Whole Blood 324 mg/dL (75-99)
[2020-11-28 19:50] LABS: Glucose,Whole Blood 390 mg/dL (75-99)
[2020-11-28 19:58] LABS: Glucose,Whole Blood 413 mg/dL (75-99)
[2020-11-28] MEDS: ATORVASTATIN 10 MG TAB PO SCH (21:59)
[2020-11-28] MEDS: INSULIN DETEMIR (LEVEMIR) 100 UNIT/ML SYR SQ SCH (22:00)
[2020-11-28] MEDS: NICOTINE 14MG/24HR PATCH TRANSDERM SCH (22:00)
[2020-11-29] MEDS: methylPREDNISolone SOD SUCCI 40 MG/ML 1 ML VIAL IV SCH (00:11)
[2020-11-29] MEDS: TEMAZEPAM 15 MG CAP PO SCH ×2 (00:11→23:34)
[2020-11-29] MEDS: carvediloL 6.25 MG TAB PO SCH ×2 (06:50→16:31)
[2020-11-29 07:11] LABS: Glucose,Whole Blood 286 mg/dL (75-99)
--- NOTE | 2020-11-29 08:15 | XR ---
EXAMINATION TYPE: XR chest 1V portable DATE OF EXAM: 11/29/2020 HISTORY: Shortness of breath. COMPARISON: 11/27/2020 TECHNIQUE: Single view of the chest is submitted. FINDINGS: Demonstrated are scattered senescent parenchymal change. There is no evidence for focal infiltrate. Continued cardiomegaly with pulmonary venous congestion and scattered infiltrates. Improving pleural effusions. Hilar and mediastinal structures are within normal limits. Degenerative changes are seen of the dorsal spine. IMPRESSION: 1. Continued cardiomegaly with pulmonary venous congestion and scattered infiltrates. Improving pleu ral effusions.
[2020-11-29] MEDS: IPRATROPIUM-ALBUTEROL 3 ML NEB INHALATION SCH ×4 (08:47→19:51)
[2020-11-29] MEDS: FORMOTEROL FUMARATE 20 MCG/2 ML NEBU INHALATION SCH ×2 (08:47→19:51)
[2020-11-29] MEDS: BUDESONIDE 1 MG/2 ML NEBU INHALATION SCH ×2 (08:47→19:51)
[2020-11-29 10:10] LABS: Calcium 7.8 mg/dL (8.4-10.2)
--- NOTE | 2020-11-29 10:20 | P.PN ---
Subjective Progress Note Date: 11/29/20 80-year-old female patient presented to the hospital because of feeling short of breath for the past 6 weeks. Shortness of breath got worse over the past few days and for that reason the patient came into the hospital. The patient reported that she was unable to lay down flat in bed because of worsening shortness of breath and the patient also had increased lower extremity edema. The patient has multiple medical problems including COPD and chronic hypoxic respiratory failure and the patient was admitted on oxygen at 2 L per minute nasal cannula chronic kidney disease, hypertension, hyperlipidemia, diabetes mellitus and coronary artery disease and the patient undergone previous bypass surgery. The patient also has a pacemaker in place. The patient at a time of admission showed to have a paced rhythm on the EKG. Chest x-ray showed small bilateral pleural effusion in addition to cardiomegaly and prominent vascular markings. White cell count was at 5.1 with a hemoglobin of 9.4 and platelets of 123. BUN was 71 with a creatinine of 2.56 and a troponin 1 was negative. ProBNP level was 99,400. The patient had an echocardiogram that showed an ejection fraction of 45-50% with severe mitral regurgitation and moderate degree of pulmonary hypertension. Patient was diagnosed having an acute decompensated heart failure and COPD exacerbation. Noted the patient is a chronic smoker. A pulmonary consultation was also requested accordingly. Currently the patient is on IV Lasix 60 mg every 12 hours, the patient is also on 4 L about 2 by nasal cannula with a pulse ox of 98-99% . note that the covid 19 PCR came back negative. This morning, the patient is on 4 L of oxygen by nasal cannula. Saturations around 99%. She is afebrile. She remains on IV Lasix 60 mg every 8 hours. The with balance over the past 24 hours has been -620 mL and the patient's BUN and creatinine are 76 and 3.02 respectively. Potassium level is up to 5.2. On today's evaluation of 11/28/2016, the patient is being seen in follow-up. The patient is being treated for CHF predominantly and a mild component of COPD. She had interstitial edema and small bilateral pleural effusions and her chest x-ray. She is on Lasix 60 mg every 8 hours. She is a negative fluid balance of 1.6 L over the past 24 hours. She is also empirically covered with antibiotics. She is on DuoNeb neb last treatment and IV Solu-Medrol 40 mg every 8 hours as the patient was having some limited amount of wheezing on yesterday's evaluation. The blood work from today is showing a BUN of 2080 with a creatinine of 2.8 and the numbers have improved compared to yesterday. Woke was up to 246 and this is probably related to steroids. Potassium level is up to 5.2. Covid 19 was negative. UA was abnormal and urine culture are still pending he was the patient is covered with IV Rocephin regarding the possibility of a gram-negative UTI. She remains on oxygen at 4 L with a pulse ox of 99%. 05/01/2021, I'm seeing the patient for a follow-up regarding her acute hypoxic respiratory failure. She is predominantly CHF with a mild component of COPD. I have her on Lasix 60 mg IV every 8 hours and she is also on Zaroxolyn 5 mg by mouth daily. Fluid balance has been -1.6 L over the past 24 hours and since this morning she is another sister 50 mL negative. Blood work and electrolytes shows that the patient's potassium level is at 5.0 and the creatinine is at 2.6 with a BUN of 94. Her blood sugar is elevated at 46 and I am contemplating to reduce the Solu-Medrol dose as the patient has developed steroid-induced hypergl ycemia. She is on DuoNeb nebulized treatments around the clock. She is on IV Solu-Medrol 40 mg every 8 hours. Her current pulse ox is currently 98% 40s about 2 by nasal cannula and this can be further weaned down. Her urine culture came back positive for gram-negative UTI and the patient is currently on IV Rocephin. Chest x-ray from today is showing improvement in the pleural effusions and the patient bilaterally. She has cardiomegaly. Objective - Vital Signs Vital signs: Vital Signs Temp 98.0 F 11/29/20 08:00 Pulse 60 11/29/20 09:28 Resp 20 11/29/20 08:00 BP 144/66 11/29/20 08:00 Pulse Ox 98 11/29/20 08:00 Intake & Output 11/28/20 11/29/20 11/29/20 18:59 06:59 18:59 Intake Total 1566 900 240 Output Total 1075 1625 Balance 491 -725 240 Weight 94.6 kg Intake: Oral 1566 900 240 Output: Urine 8854 1625 Other: Voiding Method Indwelling Catheter Indwelling Catheter - Exam GENERAL: Well-developed in no acute distress. Patient is currently on 4 L of oxygen by nasal cannula. Head exam was generally normal. There was no scleral icterus or corneal arcus. Mucous membranes were moist. HEENT: Head is normocephalic. Pupils are equal, round. Sclerae anicteric. Mucous membranes of the mouth are moist. Neck supple. No JVD or thyromegaly LUNGS: Respirations even and unlabored. Lungs diminished with scattered rhonchi and expiratory wheezing HEART: Regular rate and rhythm. S1 and S2 heard. Systolic murmur. Abdominal exam revealed normal bowel sounds. The abdomen was soft, non-tender, and without masses, organomegaly, or appreciable enlargement of the abdominal aorta. EXTREMITIES: Normal range of motion. No clubbing or cyanosis. Peripheral pulses intact. 2+ bilateral lower extremity edema NEUROLOGIC: Awake and alert. Oriented x 3. Neurologically, the patient is awake and alert and the patient does not have any focal neurological deficit. Cranial nerves are essentially intact. - Labs CBC & Chem 7: 11/27/20 07:32 11/29/20 08:53 Labs: Abnormal Lab Results - Last 24 Hours (Table) 11/28/20 11/28/20 11/28/20 Range/Units 11:58 17:02 19:49 Sodium (137-145) mmol/L Chloride (98-107) mmol/L BUN (7-17) mg/dL Creatinine (0.52-1.04) mg/dL Glucose (74-99) mg/dL POC Glucose (mg/dL) 303 H 324 H 390 H (75-99) mg/dL Calcium (8.4-10.2) mg/dL 11/28/20 11/29/20 11/29/20 Range/Units 19:57 07:09 08:53 Sodium 131 L (137-145) mmol/L Chloride 96 L (98-107) mmol/L BUN 94 H (7-17) mg/dL Creatinine 2.61 H (0.52-1.04) mg/dL Glucose 406 H (74-99) mg/dL POC Glucose (mg/dL) 413 H 286 H (75-99) mg/dL Calcium 7.8 L (8.4-10.2) mg/dL Microbiology - Last 24 Hours (Table) 11/25/20 23:26 Urine Culture - Final Urine,Catheterized Citrobacter freundii Assessment and Plan Plan: 1 shortness of breath predominantly due to CHF exacerbation in addition to a p ossible component of COPD. Patient is responding nicely to diuretics. The patient presented with increased interstitial edema and elevated proBNP level in addition to increased lower extremity edema on all these facts support diagnosis of underlying CHF/fluid overload specially the patient is a component of chronic kidney disease at baseline and the patient is clinically improving. On today's evaluation she still on 4 L. Clinically she is feeling better. Once that is improved as the patient received a combination of Lasix and Zaroxolyn. She is in a negative fluid balance. Chest x-ray showing improvement in the volume status and the pleural effusions. She is less bronchospastic and wheezy insulin Medrol can be also tapered. 2 CHF with impaired ejection fraction of 45-50% and moderate to severe mitral regurgitation pulmonary patient 3 COPD 4 acute on chronic hypoxic respiratory failure, secondary to above 5. chronic kidney disease, stage III, creatinine slightly improved compared to yesterday 6. History of coronary artery disease status post bypass grafting 19 years ago 7. History of CHF with systolic and diastolic dysfunction, echocardiogram showed low normal EF of 45% with moderate/severe mitral regurgitation, trace tricuspid regurg, and pulmonary hypertension 8. Diabetes mellitus 9. Chronic smoker, carries 50 years of smoking of less than a pack a day, and more recently started vaping in an attempt to quit smoking 10. Oxygen dependent COPD, not consistently compliant with oxygen 11. Hypertension 12. Hyperlipidemia 13. Permanent pacemaker insertion in 2015 14. Obesity, with history of lap band 15. Obstructive sleep apnea on BiPAP machine 16 gram-negative bacteria in the urine, gram-negative UTI with Citrobacter and currently she is on IV Rocephin Plan Continue diuretics. The patient can be switched to oral diuretics His continued IV Solu Medrol and start the patient on low-dose prednisone 30 mg and monitor the blood sugars Monitor renal function Continue DuoNeb nebulized treatments around the clock Levemir insulin 20 units along with sliding scale insulin coverage and adjust the liver made insulin as long as the sugars remain elevated, increasing the dose up to 25 as long as the patient is on steroids. Smoking cessation counseling was done Will follow
[2020-11-29 10:43] LABS: Basophils % (A) 0 %; Eosinophils % (A) 0 %; HCT 27.9 % (34.0-46.0); HGB 8.9 gm/dL (11.4-16.0); Hypochromasia Slight; Lymphocytes # (A) 0.5 k/uL (1.0-4.8); Lymphocytes % (A) 9 %; MCHC 32.1 g/dL (31.0-37.0); MCV 93.2 fL (80.0-100.0); Mean Platelet Volume 10.7; Monocytes # (A) 0.8 k/uL (0-1.0); Monocytes % (A) 16 %; Neutrophils # (A) 3.6 k/uL (1.3-7.7); Neutrophils % (A) 72 %; Platelet Count 115 k/uL (150-450); RBC 2.99 m/uL (3.80-5.40); RDW 15.3 % (11.5-15.5)
--- NOTE | 2020-11-29 11:22 | PN ---
PROGRESS NOTE Patient is seen for followup for chronic kidney disease and volume overload. She is currently being diuresed. Symptoms have improved since admission. However, today patient is complaining of feeling tired. A 24-hour urine output of about 2.7 L. Although I do see that her intake was significantly high for the last 24 hours. PHYSICAL EXAMINATION: On examination today, blood pressure was 144/66, heart rate 60 per minute. She is afebrile. EXAMINATION OF THE HEART: S1, S2. EXAMINATION OF THE LUNGS: Bilateral breath sounds are heard. Abdomen is soft, obese. Examination of lower extremities shows 1+ edema bilaterally. OPERATIONS REPRESENTATIVE exam grossly intact. LABS: Labs show sodium 131, potassium 5.0, BUN 94, creatinine 2.6, hemoglobin 8.9. ASSESSMENT: 1. Chronic kidney disease NKF stage 4, renal function fairly stable with fluctuation in creatinine ranging between 2.6-2.9 mg/dL. 2. Volume overload, slowly improving. 3. Diastolic heart failure. 4. Anemia of chronic disease with no active bleeding noted. PLAN: Continue with the Zaroxolyn and the IV Lasix. Add Aranesp for anemia and check iron profile if not done recently. MMODL / IJN: [id number] /
[2020-11-29] MEDS: CLOPIDOGREL 75 MG TAB PO SCH (11:36)
[2020-11-29] MEDS: metOLazone 5 MG TAB PO SCH (11:36)
[2020-11-29] MEDS: ASPIRIN 81 MG PO SCH (11:36)
[2020-11-29] MEDS: MIRTAZAPINE 15 MG TAB PO SCH (11:36)
[2020-11-29] MEDS: FUROSEMIDE 10 MG/ML 10 ML VIAL IV SCH ×3 (11:49→23:34)
[2020-11-29] MEDS: INSULIN ASPART (NovoLOG) 100 UNIT/ML VIAL SQ SCH ×7 (11:51→20:49)
[2020-11-29 11:53] LABS: Glucose,Whole Blood 435 mg/dL (75-99)
[2020-11-29] MEDS: DARBEPOETIN ALFA 40 MCG/0.4 ML SYRINGE SQ SCH (12:10)
[2020-11-29 14:21] VITALS: BMI 33.6
[2020-11-29 16:56] LABS: Glucose,Whole Blood 469 mg/dL (75-99)
--- NOTE | 2020-11-29 17:51 | P.PN ---
Subjective Progress Note Date: 11/29/20 Elza Avery, is an 80-year-old female patient of Dr. Ward, who presented to [facility] emergency room with a chief complaint of shortness of breath, patient stated that she had worsening lower extremity edema and weight gain for the last 6 weeks she has a known history of diastolic congestive heart failure and history of COPD with chronic respiratory failure requiring home oxygen use, patient checks her pulse ox at home and it was down in the 80s and she decided to come to emergency room. Patient was evaluated in the emergency room her vital examination on presentation revealed a temperature of 97.9 pulse 60 respiration 18 and blood pressure 164/67 pulse ox 93% on 4 L nasal cannula, white blood count was 6.0 hemoglobin 9.5 platelet count 137, sodium 140 potassium 5.0 chloride 109 CO2 26 BUN 72 creatinine 2.68, AST and ALT within normal limits glucose 111 troponin at 0.018 BNP elevated at 29,400 coronavirus PCR was negative patient stated that she was vaccinated for Covid 19. Chest x- ray done in the emergency room revealed small bilateral pleural effusions, cardiomegaly, with evidence of fluid overload and vascular prominence, EKG done in the emergency room revealed dual paced rhythm. Patient was admitted to telemetry floor, nephrology consultation and cardiology consultation were requested. Past medical history is significant for history of coronary artery disease, history of chronic diastolic congestive heart failure, history of hypertension, history of hypothyroidism, history of chronic kidney disease, history of cardiac arrhythmia with history of pacemaker placement. On review of systems patient is complaining of cough and shortness of breath, and bilateral lower extremity swelling with weight gain otherwise she denies any complaints there is no fever or chills no headache or dizziness no chest pain no palpitation no nausea or vomiting no abdominal pain no diarrhea no blood in the stools no burning with urination no frequency or urgency and no hematuria there is no weakness or numbness in any of the extremities no change in vision speech or gait On on 11/26/2020 patient is alert and oriented 3 resting comfortably in bed. Patient reports minimum improvement with shortness of breath. Patient remains on IV Lasix. Nephrology cardiology services following. Pulmonary service is consulted. Swelling to lower extremities do appear slightly improved. Patient denies nausea vomiting or diarrhea. Patient denies any urinary burning or frequency On 11/27/2020 patient was seen and examined on the telemetry floor she is alert and oriented 3 in no distress. Patient reports minimum improvement with shortness of breath. Patient remains on IV Lasix. Nephrology cardiology services are following. Pulmonary service is consulted. Swelling to lower extremities do is slightly improved. otherwise she denies any complaints there is no fever or chills no headache or dizziness no chest pain no palpitation no nausea or vomiting no abdominal pain no diarrhea no blood in the stools no burning with urination no frequency or urgency and no hematuria there is no weakness or numbness in any of the extremities no change in vision speech or gai t On 11/29/2019 patient is alert and oriented x 3. Patient appears improved. wt decreasing grom 94.7 kg to 93.7 kg. remains on lasix 60mg IV q8hr. creatinine slightly improved. swelling to lower extremity improved. Denies any chest pain. Denies any nausea vomiting or diarrhea. denies any urinary burning or frequency. On 11/30/2019 patient was seen and examined on the telemetry floor she is alert and oriented 3 in no apparent distress she states that her shortness of breath is improving she is maintained on IV Lasix there is no fever or chills no headache or dizziness no chest pain no nausea or vomiting no abdominal pain no diarrhea no blood in the stools no burning with urination no frequency or urgency and no hematuria Objective - Vital Signs Vital signs: Vital Signs Temp 98.0 F 11/29/20 08:00 Pulse 60 11/29/20 09:28 Resp 20 11/29/20 08:00 BP 144/66 11/29/20 08:00 Pulse Ox 98 11/29/20 08:00 Intake & Output 11/28/20 11/29/20 11/29/20 18:59 06:59 18:59 Intake Total 1566 900 240 Output Total 1075 1625 Balance 491 -725 240 Weight 94.6 kg Intake: Oral 1566 900 240 Output: Urine 1075 1625 Other: Voiding Method Indwelling Catheter Indwelling Catheter - Exam In general patient is alert and oriented 3 in no apparent distress HEENT head normocephalic and atraumatic Neck is supple no JVD no goiter no lymphadenopathy Chest exam reveals a few scattered rhonchi no wheezing Cardiac exam reveals regular heart sounds S1 and S2 no gallops no murmurs Abdomen is soft nontender no organomegaly with normal bowel sounds Extremity exam reveals 2+ edema no cyanosis or clubbing Neurological examination reveals no gross focal deficit - Labs CBC & Chem 7: 11/29/20 08:53 11/29/20 08:53 Labs: Abnormal Lab Results - Last 24 Hours (Table) 11/28/20 11/28/20 11/28/20 Range/Units 11:58 17:02 19:49 POC Glucose (mg/dL) 303 H 324 H 390 H (75-99) mg/dL 11/28/20 11/29/20 Range/Units 19:57 07:09 POC Glucose (mg/dL) 413 H 286 H (75-99) mg/dL Microbiology - Last 24 Hours (Table) 11/25/20 23:26 Urine Culture - Final Urine,Catheterized Citrobacter freundii Assessment and Plan Plan: Worsening shortness of breath multi-factorial related to acute exacerbation of diastolic congestive heart failure, with evidence of bilateral pleural effusion and underlying advanced chronic obstructive pulmonary disease with history of chronic hypoxic respiratory failure requiring home oxygen use. Evidence of anemia hemoglobin is 9.5 on presentation will check iron vitamin B12 and folate levels Underlying history of chronic kidney disease, patient is followed by Dr. Roland she stated that last year she had to be on dialysis for several months Underlying history of chronic diastolic congestive heart failure will check echocardiogram Will consult cardiology Underlying history of diabetes mellitus Underlying history of hypertension Underlying history of hyperlipidemia Underlying history of coronary artery disease, maintained on Plavix and aspirin Underlying history of cardiac arrhythmia with history of pacemaker placement Underlying history of depression maintained on Mirtazapine Underlying history of chronic obstructive pulmonary disease Urinary tract infection. Patient started on Rocephin urine culture ordered COPD exacerbation. maintained on steroids Patient maintained on IV Lasix for diuresis nephrology, cardiology and pulmonary services following
[2020-11-29 20:10] LABS: Glucose,Whole Blood 458 mg/dL (75-99)
[2020-11-29] MEDS ORDERED: INSULIN ASPART (NovoLOG) 100 UNIT/ML VIAL SQ ONE (20:25)
[2020-11-29] MEDS: INSULIN DETEMIR (LEVEMIR) 100 UNIT/ML SYR SQ SCH (20:52)
[2020-11-29] MEDS ORDERED: INSULIN DETEMIR (LEVEMIR) 100 UNIT/ML SYR SQ SCH (21:00)
[2020-11-29] MEDS: NICOTINE 14MG/24HR PATCH TRANSDERM SCH (21:02)
[2020-11-29] MEDS: ATORVASTATIN 10 MG TAB PO SCH (21:02)
[2020-11-30] MEDS: methylPREDNISolone SOD SUCCI 40 MG/ML 1 ML VIAL IV SCH (00:22)
[2020-11-30] MEDS: carvediloL 6.25 MG TAB PO SCH ×2 (06:28→18:25)
[2020-11-30] MEDS: IPRATROPIUM-ALBUTEROL 3 ML NEB INHALATION SCH ×4 (07:04→20:20)
[2020-11-30] MEDS: BUDESONIDE 1 MG/2 ML NEBU INHALATION SCH ×2 (07:04→20:20)
[2020-11-30] MEDS: FORMOTEROL FUMARATE 20 MCG/2 ML NEBU INHALATION SCH ×3 (07:04→20:33)
[2020-11-30 07:19] LABS: Glucose,Whole Blood 151 mg/dL (75-99)
[2020-11-30] MEDS: FUROSEMIDE 10 MG/ML 10 ML VIAL IV SCH ×3 (09:02→22:55)
[2020-11-30] MEDS: CLOPIDOGREL 75 MG TAB PO SCH (09:02)
[2020-11-30] MEDS: INSULIN ASPART (NovoLOG) 100 UNIT/ML VIAL SQ SCH ×7 (09:02→21:48)
[2020-11-30] MEDS: ASPIRIN 81 MG PO SCH (09:03)
[2020-11-30] MEDS: metOLazone 5 MG TAB PO SCH (09:03)
[2020-11-30] MEDS: predniSONE 10 MG TAB PO SCH (09:06)
[2020-11-30] MEDS: MIRTAZAPINE 15 MG TAB PO SCH (09:06)
[2020-11-30 11:00] LABS: Hypochromasia Slight; MCH 28.8 pg (25.0-35.0); MCHC 31.4 g/dL (31.0-37.0); MCV 91.7 fL (80.0-100.0); Mean Platelet Volume 10.4; Platelet Count 141 k/uL (150-450); RBC 3.49 m/uL (3.80-5.40); RDW 15.7 % (11.5-15.5)
[2020-11-30 11:03] LABS: Albumin 3.1 g/dL (3.5-5.0); Calcium 7.7 mg/dL (8.4-10.2); Total Bilirubin 0.5 mg/dL (0.2-1.3); Total Protein 5.9 g/dL (6.3-8.2)
[2020-11-30 11:36] LABS: Band Neutrophils % 1 %; Eosinophils # (M) 0.21 k/uL (0-0.7); Lymphocytes # (M) 1.54 k/uL (1.0-4.8); Monocytes # (M) 0.49 k/uL (0-1.0); Neutrophils % (M) 67 %; Nucleated Red Blood Cells 0 /100 WBC (0-0); Total Cells Counted 100
--- NOTE | 2020-11-30 11:36 | P.PN ---
Subjective Progress Note Date: 11/30/20 80-year-old female patient presented to the hospital because of feeling short of breath for the past 6 weeks. Shortness of breath got worse over the past few days and for that reason the patient came into the hospital. The patient reported that she was unable to lay down flat in bed because of worsening shortness of breath and the patient also had increased lower extremity edema. The patient has multiple medical problems including COPD and chronic hypoxic respiratory failure and the patient was admitted on oxygen at 2 L per minute nasal cannula chronic kidney disease, hypertension, hyperlipidemia, diabetes mellitus and coronary artery disease and the patient undergone previous bypass surgery. The patient also has a pacemaker in place. The patient at a time of admission showed to have a paced rhythm on the EKG. Chest x-ray showed small bilateral pleural effusion in addition to cardiomegaly and prominent vascular markings. White cell count was at 5.1 with a hemoglobin of 9.4 and platelets of 123. BUN was 71 with a creatinine of 2.56 and a troponin 1 was negative. ProBNP level was 99,400. The patient had an echocardiogram that showed an ejection fraction of 45-50% with severe mitral regurgitation and moderate degree of pulmonary hypertension. Patient was diagnosed having an acute decompensated heart failure and COPD exacerbation. Noted the patient is a chronic smoker. A pulmonary consultation was also requested accordingly. Currently the patient is on IV Lasix 60 mg every 12 hours, the patient is also on 4 L about 2 by nasal cannula with a pulse ox of 98-99% . note that the covid 19 PCR came back negative. This morning, the patient is on 4 L of oxygen by nasal cannula. Saturations around 99%. She is afebrile. She remains on IV Lasix 60 mg every 8 hours. The with balance over the past 24 hours has been -620 mL and the patient's BUN and creatinine are 76 and 3.02 respectively. Potassium level is up to 5.2. On today's evaluation of 11/28/2016, the patient is being seen in follow-up. The patient is being treated for CHF predominantly and a mild component of COPD. She had interstitial edema and small bilateral pleural effusions and her chest x-ray. She is on Lasix 60 mg every 8 hours. She is a negative fluid balance of 1.6 L over the past 24 hours. She is also empirically covered with antibiotics. She is on DuoNeb neb last treatment and IV Solu-Medrol 40 mg every 8 hours as the patient was having some limited amount of wheezing on yesterday's evaluation. The blood work from today is showing a BUN of 2080 with a creatinine of 2.8 and the numbers have improved compared to yesterday. Woke was up to 246 and this is probably related to steroids. Potassium level is up to 5.2. Covid 19 was negative. UA was abnormal and urine culture are still pending he was the patient is covered with IV Rocephin regarding the possibility of a gram-negative UTI. She remains on oxygen at 4 L with a pulse ox of 99%. 05/01/2021, I'm seeing the patient for a follow-up regarding her acute hypoxic respiratory failure. She is predominantly CHF with a mild component of COPD. I have her on Lasix 60 mg IV every 8 hours and she is also on Zaroxolyn 5 mg by mouth daily. Fluid balance has been -1.6 L over the past 24 hours and since this morning she is another sister 50 mL negative. Blood work and electrolytes shows that the patient's potassium level is at 5.0 and the creatinine is at 2.6 with a BUN of 94. Her blood sugar is elevated at 46 and I am contemplating to reduce the Solu-Medrol dose as the patient has developed steroid-induced hypergl ycemia. She is on DuoNeb nebulized treatments around the clock. She is on IV Solu-Medrol 40 mg every 8 hours. Her current pulse ox is currently 98% 40s about 2 by nasal cannula and this can be further weaned down. Her urine culture came back positive for gram-negative UTI and the patient is currently on IV Rocephin. Chest x-ray from today is showing improvement in the pleural effusions and the patient bilaterally. She has cardiomegaly. 11/30/2020, the patient is still on diuretics on a combination of Lasix and Zaroxolyn. She has been in a negative fluid balance again for several days in a row. Her urine output has progressively slowed down. On her blood work, she has a normal white cell count of 7 with hemoglobin of 10.0. Electrodes are still pending for now. She is on DuoNeb nebulized treatments around the clock. She is on IV Solu-Medrol and we had a steroids for an underlying COPD exacerbation in combination with CHF and fluid overload. She also had Citrobacter urine and the patient is on IV Rocephin Objective - Vital Signs Vital signs: Vital Signs Temp 98.6 F 11/30/20 11:09 Pulse 68 11/30/20 11:19 Resp 18 11/30/20 11:09 BP 160/84 11/30/20 11:09 Pulse Ox 100 11/30/20 11:09 Intake & Output 11/29/20 11/30/20 11/30/20 18:59 06:59 18:59 Intake Total 720 120 240 Output Total 1425 250 800 Balance -705 130 -560 Weight 94.6 kg 96 kg Intake: Oral 720 120 240 Output: Urine 1425 250 800 Other: Voiding Method Indwelling Catheter Indwelling Catheter Indwelling Catheter - Exam GENERAL: Well-developed in no acute distress. Patient is currently on 4 L of oxygen by nasal cannula. Head exam was generally normal. There was no scleral icterus or corneal arcus. Mucous membranes were moist. HEENT: Head is normocephalic. Pupils are equal, round. Sclerae anicteric. Mucous membranes of the mouth are moist. Neck supple. No JVD or thyromegaly LUNGS: Respirations even and unlabored. Lungs diminished with scattered rhonchi and expiratory wheezing HEART: Regular rate and rhythm. S1 and S2 heard. Systolic murmur. Abdominal exam revealed normal bowel sounds. The abdomen was soft, non-tender, and without masses, organomegaly, or appreciable enlargement of the abdominal aorta. EXTREMITIES: Normal range of motion. No clubbing or cyanosis. Peripheral pulses intact. 2+ bilateral lower extremity edema NEUROLOGIC: Awake and alert. Oriented x 3. Neurologically, the patient is awake and alert and the patient does not have any focal neurological deficit. Cranial nerves are essentially intact. - Labs CBC & Chem 7: 11/30/20 10:01 11/29/20 08:53 Labs: Abnormal Lab Results - Last 24 Hours (Table) 11/29/20 11/29/20 11/29/20 Range/Units 11:50 16:54 20:09 RBC (3.80-5.40) m/uL Hgb (11.4-16.0) gm/dL Hct (34.0-46.0) % RDW (11.5-15.5) % Plt Count (150-450) k/uL POC Glucose (mg/dL) 435 H 469 H 458 H (75-99) mg/dL 11/30/20 11/30/20 Range/Units 07:13 10:01 RBC 3.49 L (3.80-5.40) m/uL Hgb 10.0 L (11.4-16.0) gm/dL Hct 32.0 L (34.0-46.0) % RDW 15.7 H (11.5-15.5) % Plt Count 141 L (150-450) k/uL POC Glucose (mg/dL) 151 H (75-99) mg/dL Assessment and Plan Plan: 1 shortness of breath predominantly due to CHF exacerbation in addition to a possible component of COPD. and likely improving, still on diuretics and still on steroids and breathing treatments. She is on 4 L by nasal cannula. 2 CHF with impaired ejection fraction of 45-50% and moderate to severe mitral regurgitation pulmonary patient 3 COPD 4 acute on chronic hypoxic respiratory failure, secondary to above 5. chronic kidney disease, stage III, creatinine slightly improved compared to yesterday 6. History of coronary artery disease status post bypass grafting 19 years ago 7. History of CHF with systolic and diastolic dysfunction, echocardiogram showed low normal EF of 45% with moderate/severe mitral regurgitation, trace tricuspid regurg, and pulmonary hypertension 8. Diabetes mellitus 9. Chronic smoker, carries 50 years of smoking of less than a pack a day, and more recently started vaping in an attempt to quit smoking 10. Oxygen dependent COPD, not consistently compliant with oxygen 11. Hypertension 12. Hyperlipidemia 13. Permanent pacemaker insertion in 2014 14. Obesity, with history of lap band 15. Obstructive sleep apnea on BiPAP machine 16 gram-negative bacteria in the urine, gram-negative UTI with Citrobacter and currently she is on IV Rocephin Plan Wean down the FiO2 further Continue diuretics. The patient can be switched to oral diuretics, and nephrology is managing the diuretics. prednisone 30 mg and monitor the blood sugars on the prednisone will be given to her as part of the burst taper Monitor renal function Continue DuoNeb nebulized treatments around the clock Levemir insulin 35 units along with sliding scale insulin coverage Smoking cessation counseling was done Will follow
[2020-11-30 11:44] LABS: Anisocytosis (M) Present
[2020-11-30 11:52] LABS: Potassium 4.7 mmol/L (3.5-5.1)
[2020-11-30 11:59] LABS: Glucose,Whole Blood 104 mg/dL (75-99)
--- NOTE | 2020-11-30 16:41 | PN ---
PROGRESS NOTE Patient is seen for followup for CKD and fluid overload. She is currently sleeping. Patient has not had significant shortness of breath. However, she states she is feeling tired. She is maintained on IV Lasix along with Zaroxolyn. Weight has actually increased today. I am not sure if this is accurate. [id number] urine output documented at 2.7 L, although it looks like patient increased her intake significantly yesterday. PHYSICAL EXAMINATION: On examination today, blood pressure was 146/69, heart rate 61 per minute. Patient is afebrile. EXAMINATION OF THE HEART: S1 and S2. EXAMINATION OF LUNGS: Bilateral breath sounds are heard. ABDOMEN: Soft, non-tender, obese. Examination of lower extremities shows 1+ edema. [employer] exam is grossly intact. LABS: Sodium of 131, potassium 4.7, chloride 96, BUN 114, creatinine 2.6 mg/dL. ASSESSMENT: 1. Chronic kidney disease, NKF stage IV; renal function fairly stable. Serum creatinine fluctuates. BUN is disproportionately elevated, mostly related to steroids. 2. Volume overload, improved. Chest x-ray, however, continues to show pulmonary vascular congestion from yesterday. 3. History of dialysis-dependent renal failure. 4. Chronic obstructive pulmonary disease with some degree of exacerbation. 5. Cardiomyopathy, ejection fraction 45% to 50%, with moderate to severe mitral regurgitation. 6. Urinary tract infection. Urine culture growing citrobacter. Currently maintained on antibiotics. PLAN: Switch to p.o. diuretics tomorrow. Consider decreasing prednisone further. Repeat labs in a.m. MMLEVL / SPENCERN: [id number] /
[2020-11-30 17:03] LABS: Glucose,Whole Blood 242 mg/dL (75-99)
[2020-11-30 21:30] LABS: Glucose,Whole Blood 333 mg/dL (75-99)
[2020-11-30] MEDS: NICOTINE 14MG/24HR PATCH TRANSDERM SCH (21:48)
[2020-11-30] MEDS: TEMAZEPAM 15 MG CAP PO SCH (21:49)
[2020-11-30] MEDS: INSULIN DETEMIR (LEVEMIR) 100 UNIT/ML SYR SQ SCH (21:49)
[2020-11-30] MEDS: ATORVASTATIN 10 MG TAB PO SCH (21:50)
[2020-12-01 06:11] LABS: Glucose,Whole Blood 213 mg/dL (75-99)
[2020-12-01] MEDS: carvediloL 6.25 MG TAB PO SCH ×2 (07:00→17:26)
[2020-12-01] MEDS: INSULIN ASPART (NovoLOG) 100 UNIT/ML VIAL SQ SCH ×7 (07:02→21:08)
[2020-12-01] MEDS: FORMOTEROL FUMARATE 20 MCG/2 ML NEBU INHALATION SCH ×2 (08:13→20:31)
[2020-12-01] MEDS: BUDESONIDE 1 MG/2 ML NEBU INHALATION SCH ×2 (08:13→20:32)
[2020-12-01] MEDS: IPRATROPIUM-ALBUTEROL 3 ML NEB INHALATION SCH ×4 (08:14→20:32)
[2020-12-01] MEDS: FUROSEMIDE 10 MG/ML 10 ML VIAL IV SCH ×2 (08:53→17:27)
[2020-12-01] MEDS: MIRTAZAPINE 15 MG TAB PO SCH (08:54)
[2020-12-01] MEDS: CLOPIDOGREL 75 MG TAB PO SCH (08:54)
[2020-12-01] MEDS: predniSONE 10 MG TAB PO SCH (08:54)
[2020-12-01] MEDS: ASPIRIN 81 MG PO SCH (08:54)
[2020-12-01] MEDS: metOLazone 5 MG TAB PO SCH (08:54)
[2020-12-01 09:02] LABS: Calcium 7.5 mg/dL (8.4-10.2); Potassium 4.5 mmol/L (3.5-5.1)
--- NOTE | 2020-12-01 09:43 | P.PN ---
Subjective Progress Note Date: 11/30/20 Elza Avery, is an 80-year-old female patient of Dr. Ward, who presented to [facility] emergency room with a chief complaint of shortness of breath, patient stated that she had worsening lower extremity edema and weight gain for the last 6 weeks she has a known history of diastolic congestive heart failure and history of COPD with chronic respiratory failure requiring home oxygen use, patient checks her pulse ox at home and it was down in the 80s and she decided to come to emergency room. Patient was evaluated in the emergency room her vital examination on presentation revealed a temperature of 97.9 pulse 60 respiration 18 and blood pressure 164/67 pulse ox 93% on 4 L nasal cannula, white blood count was 6.0 hemoglobin 9.5 platelet count 137, sodium 140 potassium 5.0 chloride 109 CO2 26 BUN 72 creatinine 2.68, AST and ALT within normal limits glucose 111 troponin at 0.018 BNP elevated at 29,400 coronavirus PCR was negative patient stated that she was vaccinated for Covid 19. Chest x- ray done in the emergency room revealed small bilateral pleural effusions, cardiomegaly, with evidence of fluid overload and vascular prominence, EKG done in the emergency room revealed dual paced rhythm. Patient was admitted to telemetry floor, nephrology consultation and cardiology consultation were requested. Past medical history is significant for history of coronary artery disease, history of chronic diastolic congestive heart failure, history of hypertension, history of hypothyroidism, history of chronic kidney disease, history of cardiac arrhythmia with history of pacemaker placement. On review of systems patient is complaining of cough and shortness of breath, and bilateral lower extremity swelling with weight gain otherwise she denies any complaints there is no fever or chills no headache or dizziness no chest pain no palpitation no nausea or vomiting no abdominal pain no diarrhea no blood in the stools no burning with urination no frequency or urgency and no hematuria there is no weakness or numbness in any of the extremities no change in vision speech or gait On on 11/26/2020 patient is alert and oriented 3 resting comfortably in bed. Patient reports minimum improvement with shortness of breath. Patient remains on IV Lasix. Nephrology cardiology services following. Pulmonary service is consulted. Swelling to lower extremities do appear slightly improved. Patient denies nausea vomiting or diarrhea. Patient denies any urinary burning or frequency On 11/27/2020 patient was seen and examined on the telemetry floor she is alert and oriented 3 in no distress. Patient reports minimum improvement with shortness of breath. Patient remains on IV Lasix. Nephrology cardiology services are following. Pulmonary service is consulted. Swelling to lower extremities do is slightly improved. otherwise she denies any complaints there is no fever or chills no headache or dizziness no chest pain no palpitation no nausea or vomiting no abdominal pain no diarrhea no blood in the stools no burning with urination no frequency or urgency and no hematuria there is no weakness or numbness in any of the extremities no change in vision speech or gai t On 11/29/2019 patient is alert and oriented x 3. Patient appears improved. wt decreasing grom 94.7 kg to 93.7 kg. remains on lasix 60mg IV q8hr. creatinine slightly improved. swelling to lower extremity improved. Denies any chest pain. Denies any nausea vomiting or diarrhea. denies any urinary burning or frequency. On 11/30/2019 patient was seen and examined on the telemetry floor she is alert and oriented 3 in no apparent distress she states that her shortness of breath is improving she is maintained on IV Lasix there is no fever or chills no headache or dizziness no chest pain no nausea or vomiting no abdominal pain no diarrhea no blood in the stools no burning with urination no frequency or urgency and no hematuria On 12/01/2019 patient was seen and examined on the telemetry floor she is alert and oriented 3 in no distress she is reporting improvement in her shortness of breath she is maintained on IV Lasix there is no fever or chills no headache or dizziness no chest pain no nausea or vomiting no abdominal pain no diarrhea no blood in the stools no burning with urination no frequency or urgency and no hematuria Objective - Vital Signs Vital signs: Vital Signs Temp 97.7 F 12/01/20 08:00 Pulse 62 12/01/20 08:00 Resp 16 12/01/20 08:00 BP 151/65 12/01/20 08:00 Pulse Ox 94 L 12/01/20 08:00 Intake & Output 11/30/20 12/01/20 12/01/20 18:59 06:59 18:59 Intake Total 940 30 0 Output Total 2251 1425 Balance -1311 -1395 0 Weight 95.345 kg Intake: IV 30 0.9 30 Oral 940 0 Output: Urine 2250 1425 Stool 1 Other: Voiding Method Indwelling Catheter Indwelling Catheter - Exam In general patient is alert and oriented 3 in no apparent distress HEENT head normocephalic and atraumatic Neck is supple no JVD no goiter no lymphadenopathy Chest exam reveals a few scattered rhonchi no wheezing Cardiac exam reveals regular heart sounds S1 and S2 no gallops no murmurs Abdomen is soft nontender no organomegaly with normal bowel sounds Extremity exam reveals 2+ edema no cyanosis or clubbing Neurological examination reveals no gross focal deficit - Labs CBC & Chem 7: 11/30/20 10:11/30/20 10:01 Labs: Abnormal Lab Results - Last 24 Hours (Table) 11/30/20 11/30/20 11/30/20 Range/Units 10: 10: 11:57 RBC 3.49 L (3.80-5.40) m/uL Hgb 10.0 L (11.4-16.0) gm/dL Hct 32.0 L (34.0-46.0) % RDW 15.7 H (11.5-15.5) % Plt Count 141 L (150-450) k/uL Sodium 131 L (137-145) mmol/L Chloride 96 L (98-107) mmol/L BUN 114 H* (7-17) mg/dL Creatinine 2.62 H (0.52-1.04) mg/dL Glucose 134 H (74-99) mg/dL POC Glucose (mg/dL) 104 H (75-99) mg/dL Calcium 7.7 L (8.4-10.2) mg/dL Total Protein 5.9 L (6.3-8.2) g/dL Albumin 3.1 L (3.5-5.0) g/dL 11/30/20 11/30/20 12/01/20 Range/Units 17:01 21:11 06:10 RBC (3.80-5.40) m/uL Hgb (11.4-16.0) gm/dL Hct (34.0-46.0) % RDW (11.5-15.5) % Plt Count (150-450) k/uL Sodium (137-145) mmol/L Chloride (98-107) mmol/L BUN (7-17) mg/dL Creatinine (0.52-1.04) mg/dL Glucose (74-99) mg/dL POC Glucose (mg/dL) 242 H 333 H 213 H (75-99) mg/dL Calcium (8.4-10.2) mg/dL Total Protein (6.3-8.2) g/dL Albumin (3.5-5.0) g/dL Assessment and Plan Plan: Worsening shortness of breath multi-factorial related to acute exacerbation of diastolic congestive heart failure, with evidence of bilateral pleural effusion and underlying advanced chronic obstructive pulmonary disease with history of chronic hypoxic respiratory failure requiring home oxygen use. Evidence of anemia hemoglobin is 9.5 on presentation will check iron vitamin B12 and folate levels Underlying history of chronic kidney disease, patient is followed by Dr. Roland she stated that last year she had to be on dialysis for several months Underlying history of chronic diastolic congestive heart failure will check echocardiogram Will consult cardiology Underlying history of diabetes mellitus Underlying history of hypertension Underlying history of hyperlipidemia Underlying history of coronary artery disease, maintained on Plavix and aspirin Underlying history of cardiac arrhythmia with history of pacemaker placement Underlying history of depression maintained on Mirtazapine Underlying history of chronic obstructive pulmonary disease Urinary tract infection. Patient started on Rocephin urine culture ordered COPD exacerbation. maintained on steroids Patient maintained on IV Lasix for diuresis nephrology, cardiology and pulmonary services following
[2020-12-01 10:11] LABS: Anisocytosis Slight; HCT 26.8 % (34.0-46.0); HGB 8.6 gm/dL (11.4-16.0); MCH 29.1 pg (25.0-35.0); MCHC 32.3 g/dL (31.0-37.0); MCV 90.1 fL (80.0-100.0); Platelet Count 122 k/uL (150-450); RBC 2.97 m/uL (3.80-5.40); RDW 16.2 % (11.5-15.5); WBC 6.7 k/uL (3.8-10.6)
--- NOTE | 2020-12-01 10:24 | P.PN ---
Subjective Progress Note Date: 12/01/20 Elza Avery, is an 80-year-old female patient of Dr. Ward, who presented to [facility] emergency room with a chief complaint of shortness of breath, patient stated that she had worsening lower extremity edema and weight gain for the last 6 weeks she has a known history of diastolic congestive heart failure and history of COPD with chronic respiratory failure requiring home oxygen use, patient checks her pulse ox at home and it was down in the 80s and she decided to come to emergency room. Patient was evaluated in the emergency room her vital examination on presentation revealed a temperature of 97.9 pulse 60 respiration 18 and blood pressure 164/67 pulse ox 93% on 4 L nasal cannula, white blood count was 6.0 hemoglobin 9.5 platelet count 137, sodium 140 potassium 5.0 chloride 109 CO2 26 BUN 72 creatinine 2.68, AST and ALT within normal limits glucose 111 troponin at 0.018 BNP elevated at 29,400 coronavirus PCR was negative patient stated that she was vaccinated for Covid 19. Chest x- ray done in the emergency room revealed small bilateral pleural effusions, cardiomegaly, with evidence of fluid overload and vascular prominence, EKG done in the emergency room revealed dual paced rhythm. Patient was admitted to telemetry floor, nephrology consultation and cardiology consultation were requested. Past medical history is significant for history of coronary artery disease, history of chronic diastolic congestive heart failure, history of hypertension, history of hypothyroidism, history of chronic kidney disease, history of cardiac arrhythmia with history of pacemaker placement. On review of systems patient is complaining of cough and shortness of breath, and bilateral lower extremity swelling with weight gain otherwise she denies any complaints there is no fever or chills no headache or dizziness no chest pain no palpitation no nausea or vomiting no abdominal pain no diarrhea no blood in the stools no burning with urination no frequency or urgency and no hematuria there is no weakness or numbness in any of the extremities no change in vision speech or gait On on 11/26/2020 patient is alert and oriented 3 resting comfortably in bed. Patient reports minimum improvement with shortness of breath. Patient remains on IV Lasix. Nephrology cardiology services following. Pulmonary service is consulted. Swelling to lower extremities do appear slightly improved. Patient denies nausea vomiting or diarrhea. Patient denies any urinary burning or frequency On 11/27/2020 patient was seen and examined on the telemetry floor she is alert and oriented 3 in no distress. Patient reports minimum improvement with shortness of breath. Patient remains on IV Lasix. Nephrology cardiology services are following. Pulmonary service is consulted. Swelling to lower extremities do is slightly improved. otherwise she denies any complaints there is no fever or chills no headache or dizziness no chest pain no palpitation no nausea or vomiting no abdominal pain no diarrhea no blood in the stools no burning with urination no frequency or urgency and no hematuria there is no weakness or numbness in any of the extremities no change in vision speech or gai t On 11/29/2019 patient is alert and oriented x 3. Patient appears improved. wt decreasing grom 94.7 kg to 93.7 kg. remains on lasix 60mg IV q8hr. creatinine slightly improved. swelling to lower extremity improved. Denies any chest pain. Denies any nausea vomiting or diarrhea. denies any urinary burning or frequency. On 11/30/2019 patient was seen and examined on the telemetry floor she is alert and oriented 3 in no apparent distress she states that her shortness of breath is improving she is maintained on IV Lasix there is no fever or chills no headache or dizziness no chest pain no nausea or vomiting no abdominal pain no diarrhea no blood in the stools no burning with urination no frequency or urgency and no hematuria On 12/01/2019 patient was seen and examined on the telemetry floor she is alert and oriented 3 in no distress she is reporting improvement in her shortness of breath she is maintained on IV Lasix there is no fever or chills no headache or dizziness no chest pain no nausea or vomiting no abdominal pain no diarrhea no blood in the stools no burning with urination no frequency or urgency and no hematuria On 12/02/2019 patient is alert and oriented x 3. remains on IV lasix. weight decreasing from 96kg to 95.3kg. nephrology, cardiology and pulmonary services following. Denies any urinary burning or frequency. denies any urinary burning or frequency. denies any chest pain or shortness of breath. Objective - Vital Signs Vital signs: Vital Signs Temp 97.7 F 12/01/20 08:00 Pulse 62 12/01/20 08:00 Resp 16 12/01/20 08:00 BP 151/65 12/01/20 08:00 Pulse Ox 94 L 12/01/20 08:00 Intake & Output 11/30/20 12/01/20 12/01/20 18:59 06:59 18:59 Intake Total 940 30 0 Output Total 2251 1425 Balance -1311 -1395 0 Weight 95.345 kg Intake: IV 30 0.9 30 Oral 940 0 Output: Urine 2250 1425 Stool 1 Other: Voiding Method Indwelling Catheter Indwelling Catheter - Exam In general patient is alert and oriented 3 in no apparent distress HEENT head normocephalic and atraumatic Neck is supple no JVD no goiter no lymphadenopathy Chest exam reveals a few scattered rhonchi no wheezing Cardiac exam reveals regular heart sounds S1 and S2 no gallops no murmurs Abdomen is soft nontender no organomegaly with normal bowel sounds Extremity exam reveals 2+ edema no cyanosis or clubbing Neurological examination reveals no gross focal deficit - Labs CBC & Chem 7: 12/01/20 06:28 11/30/20 10:01 Labs: Abnormal Lab Results - Last 24 Hours (Table) 11/30/20 11/30/20 11/30/20 Range/Units 10:01 10:01 11:57 RBC 3.49 L (3.80-5.40) m/uL Hgb 10.0 L (11.4-16.0) gm/dL Hct 32.0 L (34.0-46.0) % RDW 15.7 H (11.5-15.5) % Plt Count 141 L (150-450) k/uL Sodium 131 L (137-145) mmol/L Chloride 96 L (98-107) mmol/L BUN 114 H* (7-17) mg/dL Creatinine 2.62 H (0.52-1.04) mg/dL Glucose 134 H (74-99) mg/dL POC Glucose (mg/dL) 104 H (75-99) mg/dL Calcium 7.7 L (8.4-10.2) mg/dL Total Protein 5.9 L (6.3-8.2) g/dL Albumin 3.1 L (3.5-5.0) g/dL 11/30/20 11/30/20 12/01/20 Range/Units 17:01 21:11 06:10 RBC (3.80-5.40) m/uL Hgb (11.4-16.0) gm/dL Hct (34.0-46.0) % RDW (11.5-15.5) % Plt Count (150-450) k/uL Sodium (137-145) mmol/L Chloride (98-107) mmol/L BUN (7-17) mg/dL Creatinine (0.52-1.04) mg/dL Glucose (74-99) mg/dL POC Glucose (mg/dL) 242 H 333 H 213 H (75-99) mg/dL Calcium (8.4-10.2) mg/dL Total Protein (6.3-8.2) g/dL Albumin (3.5-5.0) g/dL 12/01/20 Range/Units 06:28 RBC 2.97 L (3.80-5.40) m/uL Hgb 8.6 L (11.4-16.0) gm/dL Hct 26.8 L (34.0-46.0) % RDW 16.2 H (11.5-15.5) % Plt Count 122 L (150-450) k/uL Sodium (137-145) mmol/L Chloride (98-107) mmol/L BUN (7-17) mg/dL Creatinine (0.52-1.04) mg/dL Glucose (74-99) mg/dL POC Glucose (mg/dL) (75-99) mg/dL Calcium (8.4-10.2) mg/dL Total Protein (6.3-8.2) g/dL Albumin (3.5-5.0) g/dL Assessment and Plan Plan: Worsening shortness of breath multi-factorial related to acute exacerbation of diastolic congestive heart failure, with evidence of bilateral pleural effusion and underlying advanced chronic obstructive pulmonary disease with history of chronic hypoxic respiratory failure requiring home oxygen use. Evidence of anemia hemoglobin is 9.5 on presentation will check iron vitamin B12 and folate levels Underlying history of chronic kidney disease, patient is followed by Dr. Roland she stated that last year she had to be on dialysis for several months Underlying history of chronic diastolic congestive heart failure will check echocardiogram Will consult cardiology Underlying history of diabetes mellitus Underlying history of hypertension Underlying history of hyperlipidemia Underlying history of coronary artery disease, maintained on Plavix and aspirin Underlying history of cardiac arrhythmia with history of pacemaker placement Underlying history of depression maintained on Mirtazapine Underlying history of chronic obstructive pulmonary disease Urinary tract infection. Patient started on Rocephin urine culture ordered COPD exacerbation. maintained on steroids Patient maintained on IV Lasix for diuresis nephrology, cardiology and pulmonary services following
[2020-12-01 11:09] LABS: Band Neutrophils % 1 %; Lymphocytes # (M) 1.01 k/uL (1.0-4.8); Neutrophils % (M) 75 %; Nucleated Red Blood Cells 0 /100 WBC (0-0); Total Cells Counted 100
[2020-12-01 11:10] LABS: Poikilocytosis (M) Present
[2020-12-01 12:23] LABS: Glucose,Whole Blood 153 mg/dL (75-99)
--- NOTE | 2020-12-01 12:41 | P.PN ---
Subjective Progress Note Date: 12/01/20 80-year-old female patient presented to the hospital because of feeling short of breath for the past 6 weeks. Shortness of breath got worse over the past few days and for that reason the patient came into the hospital. The patient reported that she was unable to lay down flat in bed because of worsening shortness of breath and the patient also had increased lower extremity edema. The patient has multiple medical problems including COPD and chronic hypoxic respiratory failure and the patient was admitted on oxygen at 2 L per minute nasal cannula chronic kidney disease, hypertension, hyperlipidemia, diabetes mellitus and coronary artery disease and the patient undergone previous bypass surgery. The patient also has a pacemaker in place. The patient at a time of admission showed to have a paced rhythm on the EKG. Chest x-ray showed small bilateral pleural effusion in addition to cardiomegaly and prominent vascular markings. White cell count was at 5.1 with a hemoglobin of 9.4 and platelets of 123. BUN was 71 with a creatinine of 2.56 and a troponin 1 was negative. ProBNP level was 99,400. The patient had an echocardiogram that showed an ejection fraction of 45-50% with severe mitral regurgitation and moderate degree of pulmonary hypertension. Patient was diagnosed having an acute decompensated heart failure and COPD exacerbation. Noted the patient is a chronic smoker. A pulmonary consultation was also requested accordingly. Currently the patient is on IV Lasix 60 mg every 12 hours, the patient is also on 4 L about 2 by nasal cannula with a pulse ox of 98-99% . note that the covid 19 PCR came back negative. This morning, the patient is on 4 L of oxygen by nasal cannula. Saturations around 99%. She is afebrile. She remains on IV Lasix 60 mg every 8 hours. The with balance over the past 24 hours has been -620 mL and the patient's BUN and creatinine are 76 and 3.02 respectively. Potassium level is up to 5.2. On today's evaluation of 11/28/2016, the patient is being seen in follow-up. The patient is being treated for CHF predominantly and a mild component of COPD. She had interstitial edema and small bilateral pleural effusions and her chest x-ray. She is on Lasix 60 mg every 8 hours. She is a negative fluid balance of 1.6 L over the past 24 hours. She is also empirically covered with antibiotics. She is on DuoNeb neb last treatment and IV Solu-Medrol 40 mg every 8 hours as the patient was having some limited amount of wheezing on yesterday's evaluation. The blood work from today is showing a BUN of 2080 with a creatinine of 2.8 and the numbers have improved compared to yesterday. Woke was up to 246 and this is probably related to steroids. Potassium level is up to 5.2. Covid 19 was negative. UA was abnormal and urine culture are still pending he was the patient is covered with IV Rocephin regarding the possibility of a gram-negative UTI. She remains on oxygen at 4 L with a pulse ox of 99%. 05/01/2021, I'm seeing the patient for a follow-up regarding her acute hypoxic respiratory failure. She is predominantly CHF with a mild component of COPD. I have her on Lasix 60 mg IV every 8 hours and she is also on Zaroxolyn 5 mg by mouth daily. Fluid balance has been -1.6 L over the past 24 hours and since this morning she is another sister 50 mL negative. Blood work and electrolytes shows that the patient's potassium level is at 5.0 and the creatinine is at 2.6 with a BUN of 94. Her blood sugar is elevated at 46 and I am contemplating to reduce the Solu-Medrol dose as the patient has developed steroid-induced hypergl ycemia. She is on DuoNeb nebulized treatments around the clock. She is on IV Solu-Medrol 40 mg every 8 hours. Her current pulse ox is currently 98% 40s about 2 by nasal cannula and this can be further weaned down. Her urine culture came back positive for gram-negative UTI and the patient is currently on IV Rocephin. Chest x-ray from today is showing improvement in the pleural effusions and the patient bilaterally. She has cardiomegaly. 11/30/2020, the patient is still on diuretics on a combination of Lasix and Zaroxolyn. She has been in a negative fluid balance again for several days in a row. Her urine output has progressively slowed down. On her blood work, she has a normal white cell count of 7 with hemoglobin of 10.0. Electrodes are still pending for now. She is on DuoNeb nebulized treatments around the clock. She is on IV Solu-Medrol and we had a steroids for an underlying COPD exacerbation in combination with CHF and fluid overload. She also had Citrobacter urine and the patient is on IV Rocephin Today's evaluation of 12/01/2020, the patient is feeling well. The patient is started on diuretics 60 mg IV Lasix every 8 hours. She is also on Zaroxolyn 5 mg by mouth daily. The patient is completing a prednisone burst taper. Blood sugar management is with Levemir insulin 35 units along with a 10 units of NovoLog with meals and sliding scale coverage. She is doing well. No specific complaints. She is on DuoNeb nebulized treatments around the clock. She is also Pulmicort Respules. No fever. No chills. No night sweats. Renal function is stable and the patient's creatinine is at 2.7 with a BUN of 129. Electrolytes are all within normal limits. Objective - Vital Signs Vital signs: Vital Signs Temp 98.3 F 12/01/20 12:22 Pulse 60 12/01/20 12:22 Resp 18 12/01/20 12:22 BP 160/72 12/01/20 12:22 Pulse Ox 98 12/01/20 12:22 Intake & Output 11/30/20 12/01/20 12/01/20 18:59 06:59 18:59 Intake Total 940 30 0 Output Total 2251 1425 900 Balance -1311 -1395 -900 Weight 95.345 kg Intake: IV 30 0.9 30 Oral 940 0 Output: Urine 2250 1425 900 Stool 1 Other: Voiding Method Indwelling Catheter Indwelling Catheter - Exam GENERAL: Well-developed in no acute distress. Patient is currently on 3L of oxygen by nasal cannula. Head exam was generally normal. There was no scleral icterus or corneal arcus. Mucous membranes were moist. HEENT: Head is normocephalic. Pupils are equal, round. Sclerae anicteric. Mucous membranes of the mouth are moist. Neck supple. No JVD or thyromegaly LUNGS: Respirations even and unlabored. Lungs diminished with scattered rhonchi and expiratory wheezing HEART: Regular rate and rhythm. S1 and S2 heard. Systolic murmur. Abdominal exam revealed normal bowel sounds. The abdomen was soft, non-tender, and without masses, organomegaly, or appreciable enlargement of the abdominal aorta. EXTREMITIES: Normal range of motion. No clubbing or cyanosis. Peripheral pulses intact. 2+ bilateral lower extremity edema NEUROLOGIC: Awake and alert. Oriented x 3. Neurologically, the patient is awake and alert and the patient does not have any focal neurological deficit. Cranial nerves are essentially intact. - Labs CBC & Chem 7: 12/01/20 06:28 12/01/20 07:49 Labs: Abnormal Lab Results - Last 24 Hours (Table) 11/30/20 11/30/20 12/01/20 Range/Units 17:01 21:11 06:10 RBC (3.80-5.40) m/uL Hgb (11.4-16.0) gm/dL Hct (34.0-46.0) % RDW (11.5-15.5) % Plt Count (150-450) k/uL Sodium (137-145) mmol/L Chloride (98-107) mmol/L BUN (7-17) mg/dL Creatinine (0.52-1.04) mg/dL Glucose (74-99) mg/dL POC Glucose (mg/dL) 242 H 333 H 213 H (75-99) mg/dL Calcium (8.4-10.2) mg/dL 12/01/20 12/01/20 12/01/20 Range/Units 06:28 07:49 12:12 RBC 2.97 L (3.80-5.40) m/uL Hgb 8.6 L (11.4-16.0) gm/dL Hct 26.8 L (34.0-46.0) % RDW 16.2 H (11.5-15.5) % Plt Count 122 L (150-450) k/uL Sodium 131 L (137-145) mmol/L Chloride 95 L (98-107) mmol/L BUN 129 H* (7-17) mg/dL Creatinine 2.70 H (0.52-1.04) mg/dL Glucose 162 H (74-99) mg/dL POC Glucose (mg/dL) 153 H (75-99) mg/dL Calcium 7.5 L (8.4-10.2) mg/dL Assessment and Plan Plan: 1 shortness of breath predominantly due to CHF exacerbation in addition to a possible component of COPD. and likely improving, still on diuretics and still on steroids and breathing treatments. She is on 3 L by nasal cannula. 2 CHF with impaired ejection fraction of 45-50% and moderate to severe mitral regurgitation pulmonary patient 3 COPD 4 acute on chronic hypoxic respiratory failure, secondary to above 5. chronic kidney disease, stage III, creatinine slightly improved compared to yesterday 6. History of coronary artery disease status post bypass grafting 19 years ago 7. History of CHF with systolic and diastolic dysfunction, echocardiogram showed low normal EF of 45% with moderate/severe mitral regurgitation, trace tricuspid regurg, and pulmonary hypertension 8. Diabetes mellitus 9. Chronic smoker, carries 50 years of smoking of less than a pack a day, and more recently started vaping in an attempt to quit smoking 10. Oxygen dependent COPD, not consistently compliant with oxygen 11. Hypertension 12. Hyperlipidemia 13. Permanent pacemaker insertion in 2015 14. Obesity, with history of lap band 15. Obstructive sleep apnea on BiPAP machine 16 gram-negative bacteria in the urine, gram-negative UTI with Citrobacter and currently she is on IV Rocephin Plan Wean down the FiO2 further, currently on 3 L Continue diuretics. The patient can be switched to oral diuretics, and nephr ology is managing the diuretics. She remains on a combination of Lasix IV and Zaroxolyn oral prednisone 30 mg and monitor the blood sugars on the prednisone will be given to her as part of the burst taper Monitor renal function, creatinine is favored to 0.7, BUN is on the rise Continue DuoNeb nebulized treatments around the clock Levemir insulin 35 units along with sliding scale insulin coverage Smoking cessation counseling was done Will follow
--- NOTE | 2020-12-01 16:37 | PN ---
PROGRESS NOTE Patient is seen for followup for chronic kidney disease. The patient was admitted to the hospital with complaints of shortness of breath, worsening CHF and volume overload. She has been diuresed. The patient states she is feeling better. She did receive burst dose of steroids as well during her hospitalization. The patient feels she can go home. She has underlying CKD stage 4. Baseline creatinine about 2.7-2.8 mg/dL. The patient had been on dialysis for about 2 months for volume overload and acute on top of chronic renal failure. She came off of dialysis about 5 months ago. PHYSICAL EXAMINATION: On examination today, blood pressure was 160/72, heart rate 60 per minute. She is afebrile. EXAMINATION OF THE HEART: S1, S2. EXAMINATION OF LUNGS: Decreased breath sounds at bases. Basal crackles are heard. Abdomen is soft, nontender. Examination of the lower extremities shows edema 1+ bilaterally. This is improved. NUTTER UP exam grossly intact. LABS: Labs show sodium of 131, potassium 4.5, chloride 95, BUN 129, creatinine 2.7, hemoglobin 8.6 g/dL. ASSESSMENT: 1. Chronic kidney disease NKF stage 4 secondary to diabetic nephropathy and nephrosclerosis. Serum creatinine fairly stable. 2. Congestive heart failure, volume overload, acute on top of chronic. Ejection fraction 45% to 50%, systolic in nature. Status post diuresis. Volume status improved since admission. 3. Moderate pulmonary hypertension and severe mitral regurgitation. 4. Disproportionately elevated BUN secondary to steroids. PLAN: I will switch to oral diuretics. The patient will continue with the Zaroxolyn and she will need close followup as outpatient. She is advised regarding salt and fluid restriction and I have also advised the patient that if her volume status and renal function worsens again, she may need to restart renal replacement therapy. The patient is not too keen to restart dialysis at this time. Plan switch to oral Demadex. Recommend to wean down steroids further. Continue with Zaroxolyn. Repeat labs in a.m. MMODL / IJN: [id number] /
[2020-12-01 17:04] LABS: Glucose,Whole Blood 314 mg/dL (75-99)
[2020-12-01 20:13] LABS: Glucose,Whole Blood 428 mg/dL (75-99)
[2020-12-01] MEDS: NICOTINE 14MG/24HR PATCH TRANSDERM SCH (21:08)
[2020-12-01] MEDS: INSULIN DETEMIR (LEVEMIR) 100 UNIT/ML SYR SQ SCH (21:08)
[2020-12-01] MEDS: TEMAZEPAM 15 MG CAP PO SCH (21:09)
[2020-12-01] MEDS: ATORVASTATIN 10 MG TAB PO SCH (21:09)
[2020-12-02 07:09] LABS: Glucose,Whole Blood 166 mg/dL (75-99)
[2020-12-02] MEDS: PANTOPRAZOLE 40 MG TABLET PO SCH (07:12)
[2020-12-02] MEDS: carvediloL 6.25 MG TAB PO SCH ×2 (07:12→17:16)
[2020-12-02] MEDS: INSULIN ASPART (NovoLOG) 100 UNIT/ML VIAL SQ SCH ×7 (07:12→20:37)
[2020-12-02] MEDS: FORMOTEROL FUMARATE 20 MCG/2 ML NEBU INHALATION SCH ×2 (08:13→19:29)
[2020-12-02] MEDS: BUDESONIDE 1 MG/2 ML NEBU INHALATION SCH ×2 (08:13→19:29)
[2020-12-02] MEDS: IPRATROPIUM-ALBUTEROL 3 ML NEB INHALATION SCH ×4 (08:14→19:29)
[2020-12-02 08:38] LABS: Albumin 2.9 g/dL (3.5-5.0); Calcium 7.8 mg/dL (8.4-10.2); Potassium 4.3 mmol/L (3.5-5.1); Total Bilirubin 0.6 mg/dL (0.2-1.3); Total Protein 5.4 g/dL (6.3-8.2)
[2020-12-02] MEDS: predniSONE 10 MG TAB PO SCH (08:46)
[2020-12-02] MEDS: ASPIRIN 81 MG PO SCH (08:46)
[2020-12-02] MEDS: TORSEMIDE 20 MG TAB PO SCH (08:47)
[2020-12-02] MEDS: metOLazone 5 MG TAB PO SCH (08:47)
[2020-12-02] MEDS: MIRTAZAPINE 15 MG TAB PO SCH (08:47)
[2020-12-02] MEDS: CLOPIDOGREL 75 MG TAB PO SCH (08:47)
--- NOTE | 2020-12-02 11:05 | P.PN ---
Subjective Progress Note Date: 12/02/20 Principal diagnosis: This is a 80-year-old female with chronic kidney disease stage IV, admitted with shortness of breath and CHF. She is responding well decrease in her shortness of breath fair appetite no nausea vomiting. Good urine output. She wants to be discharged home. In the past she's had dialysis for 2 months and taken off about 5 months ago. Currently she is doing well. Urine output is 2600 mL on torsemide 40 mg a day. Vital signs are stable Objective - Vital Signs Vital signs: Vital Signs Temp 96.1 F L 12/02/20 08:00 Pulse 63 12/02/20 08:00 Resp 20 12/02/20 08:00 BP 141/62 12/02/20 08:00 Pulse Ox 95 12/02/20 08:00 Intake & Output 12/01/20 12/02/20 12/02/20 18:59 06:59 18:59 Intake Total 480 600 Output Total 2200 400 400 Balance -1720 -400 200 Weight 95.345 kg 93.7 kg Intake: Oral 480 600 Output: Urine 2200 400 400 Other: Voiding Method Indwelling Catheter Toilet Diaper # Voids 1 On examination she is awake alert oriented comfortable. HEENT exam no JVP neck is supple no facial asymmetry Lungs are significant for an occasional coarse crackle at bases no wheezing good air entry Heart sounds unremarkable no murmur rub gallop Abdomen soft nontender Extremity exam was trace edema Neurologically awake alert oriented - Labs CBC & Chem 7: 12/01/20 06:28 12/02/20 08:01 Labs: Abnormal Lab Results - Last 24 Hours (Table) 12/01/20 12/01/20 12/01/20 Range/Units 12:12 16:50 20:12 Sodium (137-145) mmol/L Chloride (98-107) mmol/L BUN (7-17) mg/dL Creatinine (0.52-1.04) mg/dL Glucose (74-99) mg/dL POC Glucose (mg/dL) 153 H 314 H 428 H (75-99) mg/dL Calcium (8.4-10.2) mg/dL Alkaline Phosphatase (38-126) U/L Total Protein (6.3-8.2) g/dL Albumin (3.5-5.0) g/dL 12/02/20 12/02/20 Range/Units 07:07 08:01 Sodium 132 L (137-145) mmol/L Chloride 93 L (98-107) mmol/L BUN 137 H* (7-17) mg/dL Creatinine 2.63 H (0.52-1.04) mg/dL Glucose 220 H (74-99) mg/dL POC Glucose (mg/dL) 166 H (75-99) mg/dL Calcium 7.8 L (8.4-10.2) mg/dL Alkaline Phosphatase 37 L (38-126) U/L Total Protein 5.4 L (6.3-8.2) g/dL Albumin 2.9 L (3.5-5.0) g/dL Assessment and Plan Assessment: Impression 1. Acute kidney injury, creatinine was 3.0 to and currently 2.63 improved. Etiology is congestive heart failure 2. Chronic kidney disease, CK D stage IV creatinine baseline is 2.56 on 11/25/2020 and was 2.39 on 04/02/2020. 3. Blood pressure nearly at target 4. Congestive heart failure improved with minimal edema. 5. Anemia hemoglobin went down from 10-8.6 yesterday. Etiology is CK D. Iron saturation 63% dated 11/25/2020 Recommendation 1. Maintain current medications including furosemide 40 mg a day. Patient would like to be discharged on have no problem with that she'll need referral been 48 hours after discharge 2. She is on darbepoetin 40 g every 7 days we can follow this up as an outpatient and monitor hemoglobin closely
[2020-12-02 12:06] LABS: Glucose,Whole Blood 193 mg/dL (75-99)
--- NOTE | 2020-12-02 13:18 | P.PN ---
Subjective Progress Note Date: 12/02/20 80-year-old female patient presented to the hospital because of feeling short of breath for the past 6 weeks. Shortness of breath got worse over the past few days and for that reason the patient came into the hospital. The patient reported that she was unable to lay down flat in bed because of worsening shortness of breath and the patient also had increased lower extremity edema. The patient has multiple medical problems including COPD and chronic hypoxic respiratory failure and the patient was admitted on oxygen at 2 L per minute nasal cannula chronic kidney disease, hypertension, hyperlipidemia, diabetes mellitus and coronary artery disease and the patient undergone previous bypass surgery. The patient also has a pacemaker in place. The patient at a time of admission showed to have a paced rhythm on the EKG. Chest x-ray showed small bilateral pleural effusion in addition to cardiomegaly and prominent vascular markings. White cell count was at 5.1 with a hemoglobin of 9.4 and platelets of 123. BUN was 71 with a creatinine of 2.56 and a troponin 1 was negative. ProBNP level was 99,400. The patient had an echocardiogram that showed an ejection fraction of 45-50% with severe mitral regurgitation and moderate degree of pulmonary hypertension. Patient was diagnosed having an acute decompensated heart failure and COPD exacerbation. Noted the patient is a chronic smoker. A pulmonary consultation was also requested accordingly. Currently the patient is on IV Lasix 60 mg every 12 hours, the patient is also on 4 L about 2 by nasal cannula with a pulse ox of 98-99% . note that the covid 19 PCR came back negative. This morning, the patient is on 4 L of oxygen by nasal cannula. Saturations around 99%. She is afebrile. She remains on IV Lasix 60 mg every 8 hours. The with balance over the past 24 hours has been -620 mL and the patient's BUN and creatinine are 76 and 3.02 respectively. Potassium level is up to 5.2. On today's evaluation of 11/28/2016, the patient is being seen in follow-up. The patient is being treated for CHF predominantly and a mild component of COPD. She had interstitial edema and small bilateral pleural effusions and her chest x-ray. She is on Lasix 60 mg every 8 hours. She is a negative fluid balance of 1.6 L over the past 24 hours. She is also empirically covered with antibiotics. She is on DuoNeb neb last treatment and IV Solu-Medrol 40 mg every 8 hours as the patient was having some limited amount of wheezing on yesterday's evaluation. The blood work from today is showing a BUN of 2080 with a creatinine of 2.8 and the numbers have improved compared to yesterday. Woke was up to 246 and this is probably related to steroids. Potassium level is up to 5.2. Covid 19 was negative. UA was abnormal and urine culture are still pending he was the patient is covered with IV Rocephin regarding the possibility of a gram-negative UTI. She remains on oxygen at 4 L with a pulse ox of 99%. 05/01/2021, I'm seeing the patient for a follow-up regarding her acute hypoxic respiratory failure. She is predominantly CHF with a mild component of COPD. I have her on Lasix 60 mg IV every 8 hours and she is also on Zaroxolyn 5 mg by mouth daily. Fluid balance has been -1.6 L over the past 24 hours and since this morning she is another sister 50 mL negative. Blood work and electrolytes shows that the patient's potassium level is at 5.0 and the creatinine is at 2.6 with a BUN of 94. Her blood sugar is elevated at 46 and I am contemplating to reduce the Solu-Medrol dose as the patient has developed steroid-induced hypergl ycemia. She is on DuoNeb nebulized treatments around the clock. She is on IV Solu-Medrol 40 mg every 8 hours. Her current pulse ox is currently 98% 40s about 2 by nasal cannula and this can be further weaned down. Her urine culture came back positive for gram-negative UTI and the patient is currently on IV Rocephin. Chest x-ray from today is showing improvement in the pleural effusions and the patient bilaterally. She has cardiomegaly. 11/30/2020, the patient is still on diuretics on a combination of Lasix and Zaroxolyn. She has been in a negative fluid balance again for several days in a row. Her urine output has progressively slowed down. On her blood work, she has a normal white cell count of 7 with hemoglobin of 10.0. Electrodes are still pending for now. She is on DuoNeb nebulized treatments around the clock. She is on IV Solu-Medrol and we had a steroids for an underlying COPD exacerbation in combination with CHF and fluid overload. She also had Citrobacter urine and the patient is on IV Rocephin Today's evaluation of 12/01/2020, the patient is feeling well. The patient is started on diuretics 60 mg IV Lasix every 8 hours. She is also on Zaroxolyn 5 mg by mouth daily. The patient is completing a prednisone burst taper. Blood sugar management is with Levemir insulin 35 units along with a 10 units of NovoLog with meals and sliding scale coverage. She is doing well. No specific complaints. She is on DuoNeb nebulized treatments around the clock. She is also Pulmicort Respules. No fever. No chills. No night sweats. Renal function is stable and the patient's creatinine is at 2.7 with a BUN of 129. Electrolytes are all within normal limits. 12/02/2020 the patient looks better. In terms of her diuretics, the patient is on a combination of Lasix and Zaroxolyn. Lasix is at a dose of 40 mg every 8 hours and this was discontinued and Zaroxolyn was also discontinued and the patient was started on Demadex 40 mg by mouth daily. This was done by nephrology. His BUN currently is at 137 and the creatinine is up to 2.8 the 3. The patient is well diuresis for now. No major respiratory distress. I also started on a prednisone burst taper regarding her COPD exacerbation. She has been a significant amount of negative fluid balance approximately 2.6 L 40 yesterday and she continues to make good amount of urine output. No chest pain. No angina. No palpitation. No other significant events overnight. Objective - Vital Signs Vital signs: Vital Signs Temp 96.1 F L 12/02/20 08:00 Pulse 71 12/02/20 12:16 Resp 18 12/02/20 12:16 BP 174/77 12/02/20 12:16 Pulse Ox 94 L 12/02/20 12:16 Intake & Output 12/01/20 12/02/20 12/02/20 18:59 06:59 18:59 Intake Total 480 600 Output Total 2200 400 750 Balance -1720 -400 -150 Weight 95.345 kg 93.7 kg Intake: Oral 480 600 Output: Urine 2200 400 750 Other: Voiding Method Indwelling Catheter Toilet Diaper # Voids 1 # Bowel Movements 1 - Exam GENERAL: Well-developed in no acute distress. Patient is currently on 2 L of oxygen by nasal cannula. Head exam was generally normal. There was no scleral icterus or corneal arcus. Mucous membranes were moist. HEENT: Head is normocephalic. Pupils are equal, round. Sclerae anicteric. Mucous membranes of the mouth are moist. Neck supple. No JVD or thyromegaly LUNGS: Respirations even and unlabored. Lungs diminished with scattered rhonchi and expiratory wheezing HEART: Regular rate and rhythm. S1 and S2 heard. Systolic murmur. Abdominal exam revealed normal bowel sounds. The abdomen was soft, non-tender, and without masses, organomegaly, or appreciable enlargement of the abdominal aorta. EXTREMITIES: Normal range of motion. No clubbing or cyanosis. Peripheral pulses intact. 2+ bilateral lower extremity edema NEUROLOGIC: Awake and alert. Oriented x 3. Neurologically, the patient is awake and alert and the patient does not have any focal neurological deficit. Cranial nerves are essentially intact. - Labs CBC & Chem 7: 12/01/20 06:28 12/02/20 08:01 Labs: Abnormal Lab Results - Last 24 Hours (Table) 12/01/20 12/01/20 12/02/20 Range/Units 16:50 20:12 07:07 Sodium (137-145) mmol/L Chloride (98-107) mmol/L BUN (7-17) mg/dL Creatinine (0.52-1.04) mg/dL Glucose (74-99) mg/dL POC Glucose (mg/dL) 314 H 428 H 166 H (75-99) mg/dL Calcium (8.4-10.2) mg/dL Alkaline Phosphatase (38-126) U/L Total Protein (6.3-8.2) g/dL Albumin (3.5-5.0) g/dL 12/02/20 12/02/20 Range/Units 08:01 12:05 Sodium 132 L (137-145) mmol/L Chloride 93 L (98-107) mmol/L BUN 137 H* (7-17) mg/dL Creatinine 2.63 H (0.52-1.04) mg/dL Glucose 220 H (74-99) mg/dL POC Glucose (mg/dL) 193 H (75-99) mg/dL Calcium 7.8 L (8.4-10.2) mg/dL Alkaline Phosphatase 37 L (38-126) U/L Total Protein 5.4 L (6.3-8.2) g/dL Albumin 2.9 L (3.5-5.0) g/dL Assessment and Plan Plan: 1 shortness of breath predominantly due to CHF exacerbation in addition to a possible component of COPD. and likely improving, still on diuretics and still on steroids and breathing treatments. She is on 2 L by nasal cannula. She has done great progress with diuretics and her COPD is also optimized and currently she is on a prednisone burst taper. 2 CHF with impaired ejection fraction of 45-50% and moderate to severe mitral regurgitation pulmonary patient 3 COPD 4 acute on chronic hypoxic respiratory failure, secondary to above 5. chronic kidney disease, stage III, creatinine slightly improved compared to yesterday 6. History of coronary artery disease status post bypass grafting 19 years ago 7. History of CHF with systolic and diastolic dysfunction, echocardiogram showed low normal EF of 45% with moderate/severe mitral regurgitation, trace tricuspid regurg, and pulmonary hypertension 8. Diabetes mellitus 9. Chronic smoker, carries 50 years of smoking of less than a pack a day, and more recently started vaping in an attempt to quit smoking 10. Oxygen dependent COPD, not consistently compliant with oxygen 11. Hypertension 12. Hyperlipidemia 13. Permanent pacemaker insertion in 2015 14. Obesity, with history of lap band 15. Obstructive sleep apnea on BiPAP machine 16 gram-negative bacteria in the urine, gram-negative UTI with Citrobacter and currently she is on IV Rocephin Plan Wean down the FiO2 further, currently on 2 L Continue diuretics. Lasix and Zaroxolyn has been discontinued and the patient is currently on a Demadex at a dose of 40 mg by mouth daily. Levemir insulin 35 units along with a size care coverage prednisone 30 mg and monitor the blood sugars on the prednisone will be given to her as part of the burst taper Monitor renal function, creatinine Smoking cessation counseling was done Will follow as needed
--- NOTE | 2020-12-02 14:14 | P.PN ---
Subjective Progress Note Date: 12/02/20 Elza Avery, is an 80-year-old female patient of Dr. Ward, who presented to [facility] emergency room with a chief complaint of shortness of breath, patient stated that she had worsening lower extremity edema and weight gain for the last 6 weeks she has a known history of diastolic congestive heart failure and history of COPD with chronic respiratory failure requiring home oxygen use, patient checks her pulse ox at home and it was down in the 80s and she decided to come to emergency room. Patient was evaluated in the emergency room her vital examination on presentation revealed a temperature of 97.9 pulse 60 respiration 18 and blood pressure 164/67 pulse ox 93% on 4 L nasal cannula, white blood count was 6.0 hemoglobin 9.5 platelet count 137, sodium 140 potassium 5.0 chloride 109 CO2 26 BUN 72 creatinine 2.68, AST and ALT within normal limits glucose 111 troponin at 0.018 BNP elevated at 29,400 coronavirus PCR was negative patient stated that she was vaccinated for Covid 19. Chest x- ray done in the emergency room revealed small bilateral pleural effusions, cardiomegaly, with evidence of fluid overload and vascular prominence, EKG done in the emergency room revealed dual paced rhythm. Patient was admitted to telemetry floor, nephrology consultation and cardiology consultation were requested. Past medical history is significant for history of coronary artery disease, history of chronic diastolic congestive heart failure, history of hypertension, history of hypothyroidism, history of chronic kidney disease, history of cardiac arrhythmia with history of pacemaker placement. On review of systems patient is complaining of cough and shortness of breath, and bilateral lower extremity swelling with weight gain otherwise she denies any complaints there is no fever or chills no headache or dizziness no chest pain no palpitation no nausea or vomiting no abdominal pain no diarrhea no blood in the stools no burning with urination no frequency or urgency and no hematuria there is no weakness or numbness in any of the extremities no change in vision speech or gait On on 11/26/2020 patient is alert and oriented 3 resting comfortably in bed. Patient reports minimum improvement with shortness of breath. Patient remains on IV Lasix. Nephrology cardiology services following. Pulmonary service is consulted. Swelling to lower extremities do appear slightly improved. Patient denies nausea vomiting or diarrhea. Patient denies any urinary burning or frequency On 11/27/2020 patient was seen and examined on the telemetry floor she is alert and oriented 3 in no distress. Patient reports minimum improvement with shortness of breath. Patient remains on IV Lasix. Nephrology cardiology services are following. Pulmonary service is consulted. Swelling to lower extremities do is slightly improved. otherwise she denies any complaints there is no fever or chills no headache or dizziness no chest pain no palpitation no nausea or vomiting no abdominal pain no diarrhea no blood in the stools no burning with urination no frequency or urgency and no hematuria there is no weakness or numbness in any of the extremities no change in vision speech or gai t On 11/28/2020 patient is alert and oriented x 3. Patient appears improved. wt decreasing grom 94.7 kg to 93.7 kg. remains on lasix 60mg IV q8hr. creatinine slightly improved. swelling to lower extremity improved. Denies any chest pain. Denies any nausea vomiting or diarrhea. denies any urinary burning or frequency. On 11/29/2020 patient was seen and examined on the telemetry floor she is alert and oriented 3 in no apparent distress she states that her shortness of breath is improving she is maintained on IV Lasix there is no fever or chills no headache or dizziness no chest pain no nausea or vomiting no abdominal pain no diarrhea no blood in the stools no burning with urination no frequency or urgency and no hematuria On 11/30/2020 patient was seen and examined on the telemetry floor she is alert and oriented 3 in no distress she is reporting improvement in her shortness of breath she is maintained on IV Lasix there is no fever or chills no headache or dizziness no chest pain no nausea or vomiting no abdominal pain no diarrhea no blood in the stools no burning with urination no frequency or urgency and no hematuria On 12/01/2020 patient is alert and oriented x 3. remains on IV lasix. weight decreasing from 96kg to 95.3kg. nephrology, cardiology and pulmonary services following. Denies any urinary burning or frequency. denies any urinary burning or frequency. denies any chest pain or shortness of breath. On 12/02/2020 patient was seen and examined on the medical floor she is alert and oriented 3 she is feeling somewhat better her shortness of breath and lower extremity edema has improved since yesterday otherwise she denies any complaints there is no fever or chills no headache or dizziness no chest pain no nausea or vomiting no abdominal pain no diarrhea and no urinary symptoms at this time will add physical therapy and occupational therapy will continue to monitor closely Objective - Vital Signs Vital signs: Vital Signs Temp 97.9 F 12/02/20 04:00 Pulse 60 12/02/20 04:00 Resp 20 12/02/20 04:00 BP 169/72 12/02/20 04:00 Pulse Ox 94 L 12/02/20 04:00 Intake & Output 12/01/20 12/02/20 12/02/20 18:59 06:59 18:59 Intake Total 480 600 Output Total 2200 400 400 Balance -1720 -400 200 Weight 95.345 kg 93.7 kg Intake: Oral 480 600 Output: Urine 2200 400 400 Other: Voiding Method Indwelling Catheter Toilet Diaper # Voids 1 - Exam In general patient is alert and oriented 3 in no apparent distress HEENT head normocephalic and atraumatic Neck is supple no JVD no goiter no lymphadenopathy Chest exam reveals a few scattered rhonchi no wheezing Cardiac exam reveals regular heart sounds S1 and S2 no gallops no murmurs Abdomen is soft nontender no organomegaly with normal bowel sounds Extremity exam reveals 2+ edema no cyanosis or clubbing Neurological examination reveals no gross focal deficit - Labs CBC & Chem 7: 12/01/20 06:28 12/02/20 08:01 Labs: Abnormal Lab Results - Last 24 Hours (Table) 12/01/20 12/01/20 12/01/20 Range/Units 06:28 07:49 12:12 RBC 2.97 L (3.80-5.40) m/uL Hgb 8.6 L (11.4-16.0) gm/dL Hct 26.8 L (34.0-46.0) % RDW 16.2 H (11.5-15.5) % Plt Count 122 L (150-450) k/uL Sodium 131 L (137-145) mmol/L Chloride 95 L (98-107) mmol/L BUN 129 H* (7-17) mg/dL Creatinine 2.70 H (0.52-1.04) mg/dL Glucose 162 H (74-99) mg/dL POC Glucose (mg/dL) 153 H (75-99) mg/dL Calcium 7.5 L (8.4-10.2) mg/dL Alkaline Phosphatase (38-126) U/L Total Protein (6.3-8.2) g/dL Albumin (3.5-5.0) g/dL 12/01/20 12/01/20 12/02/20 Range/Units 16:50 20:12 07:07 RBC (3.80-5.40) m/uL Hgb (11.4-16.0) gm/dL Hct (34.0-46.0) % RDW (11.5-15.5) % Plt Count (150-450) k/uL Sodium (137-145) mmol/L Chloride (98-107) mmol/L BUN (7-17) mg/dL Creatinine (0.52-1.04) mg/dL Glucose (74-99) mg/dL POC Glucose (mg/dL) 314 H 428 H 166 H (75-99) mg/dL Calcium (8.4-10.2) mg/dL Alkaline Phosphatase (38-126) U/L Total Protein (6.3-8.2) g/dL Albumin (3.5-5.0) g/dL 12/02/20 Range/Units 08:01 RBC (3.80-5.40) m/uL Hgb (11.4-16.0) gm/dL Hct (34.0-46.0) % RDW (11.5-15.5) % Plt Count (150-450) k/uL Sodium 132 L (137-145) mmol/L Chloride 93 L (98-107) mmol/L BUN 137 H* (7-17) mg/dL Creatinine 2.63 H (0.52-1.04) mg/dL Glucose 220 H (74-99) mg/dL POC Glucose (mg/dL) (75-99) mg/dL Calcium 7.8 L (8.4-10.2) mg/dL Alkaline Phosphatase 37 L (38-126) U/L Total Protein 5.4 L (6.3-8.2) g/dL Albumin 2.9 L (3.5-5.0) g/dL Assessment and Plan Plan: Worsening shortness of breath multi-factorial related to acute exacerbation of diastolic congestive heart failure, with evidence of bilateral pleural effusion and underlying advanced chronic obstructive pulmonary disease with history of chronic hypoxic respiratory failure requiring home oxygen use. Evidence of anemia hemoglobin is 9.5 on presentation will check iron vitamin B12 and folate levels Underlying history of chronic kidney disease, patient is followed by Dr. Roland she stated that last year she had to be on dialysis for several months Underlying history of chronic diastolic congestive heart failure will check echocardiogram Will consult cardiology Underlying history of diabetes mellitus Underlying history of hypertension Underlying history of hyperlipidemia Underlying history of coronary artery disease, maintained on Plavix and aspirin Underlying history of cardiac arrhythmia with history of pacemaker placement Underlying history of depression maintained on Mirtazapine Underlying history of chronic obstructive pulmonary disease Urinary tract infection. Patient started on Rocephin urine culture ordered COPD exacerbation. maintained on steroids Patient maintained on IV Lasix for diuresis nephrology, cardiology and pulmonary services following
[2020-12-02 16:57] LABS: Glucose,Whole Blood 377 mg/dL (75-99)
[2020-12-02 20:25] LABS: Glucose,Whole Blood 365 mg/dL (75-99)
[2020-12-02] MEDS: NICOTINE 14MG/24HR PATCH TRANSDERM SCH (20:37)
[2020-12-02] MEDS: TEMAZEPAM 15 MG CAP PO SCH (20:37)
[2020-12-02] MEDS: INSULIN DETEMIR (LEVEMIR) 100 UNIT/ML SYR SQ SCH (20:37)
[2020-12-02] MEDS: ATORVASTATIN 10 MG TAB PO SCH (20:37)
[2020-12-03] MEDS: guaiFENesin-Coden 100-10MG/5ML 10 ML CUP PO PRN ×2 (00:18→07:11)
[2020-12-03] MEDS: PANTOPRAZOLE 40 MG TABLET PO SCH (07:11)
[2020-12-03] MEDS: carvediloL 6.25 MG TAB PO SCH ×2 (07:11→17:04)
[2020-12-03] MEDS: INSULIN ASPART (NovoLOG) 100 UNIT/ML VIAL SQ SCH ×7 (07:12→21:04)
[2020-12-03 07:13] LABS: Glucose,Whole Blood 176 mg/dL (75-99)
[2020-12-03] MEDS: TORSEMIDE 20 MG TAB PO SCH (08:20)
[2020-12-03] MEDS: ERGOCALCIFEROL 1,250 MCG (50,000 IU) CAPSULE PO SCH (08:20)
[2020-12-03] MEDS: ASPIRIN 81 MG PO SCH (08:21)
[2020-12-03] MEDS: metOLazone 5 MG TAB PO SCH (08:21)
[2020-12-03] MEDS: CLOPIDOGREL 75 MG TAB PO SCH (08:21)
[2020-12-03] MEDS: MIRTAZAPINE 15 MG TAB PO SCH (08:21)
[2020-12-03] MEDS: predniSONE 10 MG TAB PO SCH (08:21)
[2020-12-03] MEDS: BUDESONIDE 1 MG/2 ML NEBU INHALATION SCH ×2 (09:19→19:52)
[2020-12-03] MEDS: IPRATROPIUM-ALBUTEROL 3 ML NEB INHALATION SCH ×4 (09:19→19:52)
[2020-12-03] MEDS: FORMOTEROL FUMARATE 20 MCG/2 ML NEBU INHALATION SCH ×2 (09:19→19:52)
--- NOTE | 2020-12-03 09:22 | P.PN ---
Subjective Progress Note Date: 12/03/20 Elza Avery, is an 80-year-old female patient of Dr. Ward, who presented to [facility] emergency room with a chief complaint of shortness of breath, patient stated that she had worsening lower extremity edema and weight gain for the last 6 weeks she has a known history of diastolic congestive heart failure and history of COPD with chronic respiratory failure requiring home oxygen use, patient checks her pulse ox at home and it was down in the 80s and she decided to come to emergency room. Patient was evaluated in the emergency room her vital examination on presentation revealed a temperature of 97.9 pulse 60 respiration 18 and blood pressure 164/67 pulse ox 93% on 4 L nasal cannula, white blood count was 6.0 hemoglobin 9.5 platelet count 137, sodium 140 potassium 5.0 chloride 109 CO2 26 BUN 72 creatinine 2.68, AST and ALT within normal limits glucose 111 troponin at 0.018 BNP elevated at 29,400 coronavirus PCR was negative patient stated that she was vaccinated for Covid 19. Chest x- ray done in the emergency room revealed small bilateral pleural effusions, cardiomegaly, with evidence of fluid overload and vascular prominence, EKG done in the emergency room revealed dual paced rhythm. Patient was admitted to telemetry floor, nephrology consultation and cardiology consultation were requested. Past medical history is significant for history of coronary artery disease, history of chronic diastolic congestive heart failure, history of hypertension, history of hypothyroidism, history of chronic kidney disease, history of cardiac arrhythmia with history of pacemaker placement. On review of systems patient is complaining of cough and shortness of breath, and bilateral lower extremity swelling with weight gain otherwise she denies any complaints there is no fever or chills no headache or dizziness no chest pain no palpitation no nausea or vomiting no abdominal pain no diarrhea no blood in the stools no burning with urination no frequency or urgency and no hematuria there is no weakness or numbness in any of the extremities no change in vision speech or gait On on 11/26/2020 patient is alert and oriented 3 resting comfortably in bed. Patient reports minimum improvement with shortness of breath. Patient remains on IV Lasix. Nephrology cardiology services following. Pulmonary service is consulted. Swelling to lower extremities do appear slightly improved. Patient denies nausea vomiting or diarrhea. Patient denies any urinary burning or frequency On 11/27/2020 patient was seen and examined on the telemetry floor she is alert and oriented 3 in no distress. Patient reports minimum improvement with shortness of breath. Patient remains on IV Lasix. Nephrology cardiology services are following. Pulmonary service is consulted. Swelling to lower extremities do is slightly improved. otherwise she denies any complaints there is no fever or chills no headache or dizziness no chest pain no palpitation no nausea or vomiting no abdominal pain no diarrhea no blood in the stools no burning with urination no frequency or urgency and no hematuria there is no weakness or numbness in any of the extremities no change in vision speech or gai t On 11/28/2020 patient is alert and oriented x 3. Patient appears improved. wt decreasing grom 94.7 kg to 93.7 kg. remains on lasix 60mg IV q8hr. creatinine slightly improved. swelling to lower extremity improved. Denies any chest pain. Denies any nausea vomiting or diarrhea. denies any urinary burning or frequency. On 11/29/2020 patient was seen and examined on the telemetry floor she is alert and oriented 3 in no apparent distress she states that her shortness of breath is improving she is maintained on IV Lasix there is no fever or chills no headache or dizziness no chest pain no nausea or vomiting no abdominal pain no diarrhea no blood in the stools no burning with urination no frequency or urgency and no hematuria On 11/30/2020 patient was seen and examined on the telemetry floor she is alert and oriented 3 in no distress she is reporting improvement in her shortness of breath she is maintained on IV Lasix there is no fever or chills no headache or dizziness no chest pain no nausea or vomiting no abdominal pain no diarrhea no blood in the stools no burning with urination no frequency or urgency and no hematuria On 12/01/2020 patient is alert and oriented x 3. remains on IV lasix. weight decreasing from 96kg to 95.3kg. nephrology, cardiology and pulmonary services following. Denies any urinary burning or frequency. denies any urinary burning or frequency. denies any chest pain or shortness of breath. On 12/02/2020 patient was seen and examined on the medical floor she is alert and oriented 3 she is feeling somewhat better her shortness of breath and lower extremity edema has improved, otherwise she denies any complaints there is no fever or chills no headache or dizziness no chest pain no nausea or vomiting no abdominal pain no diarrhea and no urinary symptoms at this time will add physical therapy and occupational therapy will continue to monitor closely On 12/03/2020 patient was seen and examined on the medical floor she is alert and oriented 3 she is still complaining of shortness of breath and lower extremity edema, otherwise she denies any complaints there is no fever or chills no headache or dizziness no chest pain no nausea or vomiting no abdominal pain no diarrhea and no urinary symptoms at this time will add physical therapy and occupational therapy will continue to monitor closely Objective - Vital Signs Vital signs: Vital Signs Temp 97.7 F 12/03/20 04:00 Pulse 60 12/03/20 08:21 Resp 18 12/03/20 08:21 BP 136/62 12/03/20 08:21 Pulse Ox 93 L 12/03/20 08:21 Intake & Output 12/02/20 12/03/20 12/03/20 18:59 06:59 18:59 Intake Total 1080 480 Output Total 1350 450 Balance -270 30 Weight 90.5 kg Intake: Oral 1080 480 Output: Urine 1350 450 Other: Voiding Method Toilet Toilet Diaper Diaper # Voids 200 1 # Bowel Movements 2 - Exam In general patient is alert and oriented 3 in no apparent distress HEENT head normocephalic and atraumatic Neck is supple no JVD no goiter no lymphadenopathy Chest exam reveals a few scattered rhonchi no wheezing Cardiac exam reveals regular heart sounds S1 and S2 no gallops no murmurs Abdomen is soft nontender no organomegaly with normal bowel sounds Extremity exam reveals 2+ edema no cyanosis or clubbing Neurological examination reveals no gross focal deficit - Labs CBC & Chem 7: 12/01/20 06:28 12/02/20 08:01 Labs: Abnormal Lab Results - Last 24 Hours (Table) 12/02/20 12/02/20 12/02/20 Range/Units 12:05 16:56 20:23 POC Glucose (mg/dL) 193 H 377 H 365 H (75-99) mg/dL 12/03/20 Range/Units 07:12 POC Glucose (mg/dL) 176 H (75-99) mg/dL Assessment and Plan Plan: Worsening shortness of breath multi-factorial related to acute exacerbation of diastolic congestive heart failure, with evidence of bilateral pleural effusion and underlying advanced chronic obstructive pulmonary disease with history of chronic hypoxic respiratory failure requiring home oxygen use. Evidence of anemia hemoglobin is 9.5 on presentation will check iron vitamin B12 and folate levels Underlying history of chronic kidney disease, patient is followed by Dr. Roland she stated that last year she had to be on dialysis for several months Underlying history of chronic diastolic congestive heart failure will check echocardiogram Will consult cardiology Underlying history of diabetes mellitus Underlying history of hypertension Underlying history of hyperlipidemia Underlying history of coronary artery disease, maintained on Plavix and aspirin Underlying history of cardiac arrhythmia with history of pacemaker placement Underlying history of depression maintained on Mirtazapine Underlying history of chronic obstructive pulmonary disease Urinary tract infection. Patient started on Rocephin urine culture ordered COPD exacerbation. maintained on steroids Patient maintained on IV Lasix for diuresis nephrology, cardiology and pulmonary services following
[2020-12-03 10:00] LABS: Albumin 2.7 g/dL (3.5-5.0); Calcium 7.8 mg/dL (8.4-10.2); Potassium 4.2 mmol/L (3.5-5.1); Total Bilirubin 0.2 mg/dL (0.2-1.3); Total Protein 4.8 g/dL (6.3-8.2)
[2020-12-03 10:30] LABS: Anisocytosis Slight; HCT 27.5 % (34.0-46.0); HGB 8.8 gm/dL (11.4-16.0); MCH 28.7 pg (25.0-35.0); MCHC 31.9 g/dL (31.0-37.0); Mean Platelet Volume 9.6; Platelet Count 131 k/uL (150-450); RBC 3.05 m/uL (3.80-5.40); RDW 16.4 % (11.5-15.5); WBC 7.6 k/uL (3.8-10.6)
--- NOTE | 2020-12-03 10:51 | P.PN ---
Subjective Progress Note Date: 12/03/20 Principal diagnosis: This is a 80-year-old female with chronic kidney disease stage IV, admitted with shortness of breath and CHF. She is responding well decrease in her shortness of breath fair appetite no nausea vomiting. Has mild cough Good urine output. She wants to be discharged home. In the past she's had dialysis for 2 months and taken off about 5 months ago. Currently she is doing well. Urine output is 2600 mL day before and 1800 yesterday, on torsemide 40 mg a day. Vital signs are stable Objective - Vital Signs Vital signs: Vital Signs Temp 97.7 F 12/03/20 04:00 Pulse 60 12/03/20 08:21 Resp 18 12/03/20 08:21 BP 136/62 12/03/20 08:21 Pulse Ox 93 L 12/03/20 08:21 Intake & Output 12/02/20 12/03/20 12/03/20 18:59 06:59 18:59 Intake Total 1080 480 Output Total 1350 450 Balance -270 30 Weight 90.5 kg Intake: Oral 1080 480 Output: Urine 1350 450 Other: Voiding Method Toilet Toilet Diaper Diaper # Voids 200 1 # Bowel Movements 2 On examination she is awake alert oriented comfortable on nasal cannula. HEENT exam no JVP neck is supple no facial asymmetry Lungs are significant for an occasional left-sided basilar crackle good air entry bilaterally Heart sounds are unremarkable for any murmur rub gallop Abdomen soft nontender Extremity exam was trace edema Neurologically awake alert oriented - Labs CBC & Chem 7: 12/03/20 09:03 12/03/20 09:03 Labs: Abnormal Lab Results - Last 24 Hours (Table) 12/02/20 12/02/20 12/02/20 Range/Units 12:05 16:56 20:23 RBC (3.80-5.40) m/uL Hgb (11.4-16.0) gm/dL Hct (34.0-46.0) % RDW (11.5-15.5) % Plt Count (150-450) k/uL Sodium (137-145) mmol/L Chloride (98-107) mmol/L BUN (7-17) mg/dL Creatinine (0.52-1.04) mg/dL Glucose (74-99) mg/dL POC Glucose (mg/dL) 193 H 377 H 365 H (75-99) mg/dL Calcium (8.4-10.2) mg/dL Total Protein (6.3-8.2) g/dL Albumin (3.5-5.0) g/dL 12/03/20 12/03/20 12/03/20 Range/Units 07:12 09:03 09:03 RBC 3.05 L (3.80-5.40) m/uL Hgb 8.8 L (11.4-16.0) gm/dL Hct 27.5 L (34.0-46.0) % RDW 16.4 H (11.5-15.5) % Plt Count 131 L (150-450) k/uL Sodium 133 L (137-145) mmol/L Chloride 95 L (98-107) mmol/L BUN 131 H* (7-17) mg/dL Creatinine 2.60 H (0.52-1.04) mg/dL Glucose 180 H (74-99) mg/dL POC Glucose (mg/dL) 176 H (75-99) mg/dL Calcium 7.8 L (8.4-10.2) mg/dL Total Protein 4.8 L (6.3-8.2) g/dL Albumin 2.7 L (3.5-5.0) g/dL Assessment and Plan Assessment: Impression 1. Acute kidney injury, creatinine was 3.0 to and currently 2.6 improved. Etiology is congestive heart failure 2. Chronic kidney disease, CK D stage IV creatinine baseline is 2.56 on 11/25/2020 and was 2.39 on 04/02/2020. 3. Blood pressure nearly at target 4. Congestive heart failure improved with minimal edema. 5. Anemia hemoglobin went down from 10-8.6 yesterday. Etiology is CK D. Iron saturation 63% dated 11/25/2020 Recommendation 1. Maintain current medications including furosemide 40 mg a day. Patient would like to be discharged 2. She is on darbepoetin 40 g every 7 days we can follow this up as an outpa tient and monitor hemoglobin closely
[2020-12-03 12:21] LABS: Eosinophils # (M) 0.08 k/uL (0-0.7); Lymphocytes # (M) 1.44 k/uL (1.0-4.8); Monocytes # (M) 0.84 k/uL (0-1.0); Neutrophils # (M) 5.24 k/uL (1.3-7.7); Neutrophils % (M) 69 %; Nucleated Red Blood Cells 0 /100 WBC (0-0); Total Cells Counted 100
[2020-12-03 12:28] LABS: Glucose,Whole Blood 106 mg/dL (75-99)
[2020-12-03 16:53] LABS: Glucose,Whole Blood 244 mg/dL (75-99)
[2020-12-03 20:06] LABS: Glucose,Whole Blood 377 mg/dL (75-99)
[2020-12-03] MEDS: NICOTINE 14MG/24HR PATCH TRANSDERM SCH (21:03)
[2020-12-03] MEDS: INSULIN DETEMIR (LEVEMIR) 100 UNIT/ML SYR SQ SCH (21:03)
[2020-12-03] MEDS: ATORVASTATIN 10 MG TAB PO SCH (21:03)
[2020-12-03] MEDS: TEMAZEPAM 15 MG CAP PO SCH (21:03)
[2020-12-04] MEDS ORDERED: hydrALAZINE HCL 20 MG/ML 1 ML VIAL IVP PRN (01:30)
[2020-12-04] MEDS: guaiFENesin-Coden 100-10MG/5ML 10 ML CUP PO PRN ×2 (01:41→20:29)
[2020-12-04] MEDS: carvediloL 6.25 MG TAB PO SCH ×2 (06:51→17:37)
[2020-12-04] MEDS: PANTOPRAZOLE 40 MG TABLET PO SCH (06:51)
[2020-12-04 07:18] LABS: Glucose,Whole Blood 120 mg/dL (75-99)
--- NOTE | 2020-12-04 08:39 | XR ---
EXAMINATION TYPE: XR chest 1V portable DATE OF EXAM: 12/04/2020 COMPARISON: Chest x-ray 11/29/2020 HISTORY: Congestive heart failure TECHNIQUE: Single frontal view of the chest is obtained. FINDINGS: There is improvement in aeration as compared to prior exam. Heart may be somewhat less enl arged. Generator in the left pectoral region, leads in right atrium and ventricle, post median sterno eric change again noted. No evident pneumothorax or sizable effusion. IMPRESSION: Improvement in aeration, volume status
[2020-12-04] MEDS: IPRATROPIUM-ALBUTEROL 3 ML NEB INHALATION SCH ×3 (09:13→16:12)
[2020-12-04] MEDS: BUDESONIDE 1 MG/2 ML NEBU INHALATION SCH (09:13)
[2020-12-04] MEDS: FORMOTEROL FUMARATE 20 MCG/2 ML NEBU INHALATION SCH (09:13)
[2020-12-04] MEDS: CLOPIDOGREL 75 MG TAB PO SCH (09:30)
[2020-12-04] MEDS: ASPIRIN 81 MG PO SCH (09:30)
[2020-12-04] MEDS: predniSONE 10 MG TAB PO SCH (09:30)
[2020-12-04] MEDS: MIRTAZAPINE 15 MG TAB PO SCH (09:30)
[2020-12-04] MEDS: TORSEMIDE 20 MG TAB PO SCH (09:31)
[2020-12-04] MEDS: INSULIN ASPART (NovoLOG) 100 UNIT/ML VIAL SQ SCH ×7 (09:31→20:28)
[2020-12-04] MEDS: metOLazone 5 MG TAB PO SCH (09:32)
[2020-12-04 11:51] LABS: Glucose,Whole Blood 127 mg/dL (75-99)
[2020-12-04] MEDS: hydrALAZINE HCL 25 MG TAB PO SCH ×2 (12:45→20:23)
--- NOTE | 2020-12-04 13:51 | PN ---
PROGRESS NOTE Patient is seen for followup for chronic kidney disease and volume overload. Her volume status is improved. Patient's renal function fairly stable. BUN is decreasing and she is currently maintained on oral diuretics and patient wants to go home. PHYSICAL EXAMINATION: On examination today, blood pressure was elevated 178/73, heart rate of 60 per minute. She is afebrile. EXAMINATION OF THE HEART: S1, S2. EXAMINATION OF LUNGS: Bilateral breath sounds are heard. Abdomen is soft, nontender, obese. Examination of lower extremities shows trace edema bilaterally. [employer] exam is grossly intact. LABS: Labs show sodium of 133, potassium 4.2, BUN 131 yesterday, serum creatinine 2.6. ASSESSMENT: 1. Chronic kidney disease, NKF stage 4, secondary to diabetic nephropathy and nephrosclerosis. Renal function fairly stable. 2. Volume overload, congestive heart failure, acute on top of chronic, mostly diastolic, currently improved. 3. Hypertension, uncontrolled. I will increase the Coreg to 12.5 mg daily. 4. Anemia of chronic disease, maintained on Aranesp. PLAN: Patient can be discharged on the torsemide as well as the Zaroxolyn and follow up as outpatient in about 2 to 3 days time. MMODL / IJN: [id number] /
--- NOTE | 2020-12-04 16:37 | P.PN ---
Subjective Progress Note Date: 12/04/20 Principal diagnosis: Acute on chronic hypoxic respiratory failure secondary to acute systolic congestive heart failure and severe mitral regurgitation, as well as some component of acute exacerbation of COPD. 80-year-old female patient presented to the hospital because of feeling short of breath for the past 6 weeks. Shortness of breath got worse over the past few days and for that reason the patient came into the hospital. The patient reported that she was unable to lay down flat in bed because of worsening shortness of breath and the patient also had increased lower extremity edema. The patient has multiple medical problems including COPD and chronic hypoxic respiratory failure and the patient was admitted on oxygen at 2 L per minute nasal cannula chronic kidney disease, hypertension, hyperlipidemia, diabetes mellitus and coronary artery disease and the patient undergone previous bypass surgery. The patient also has a pacemaker in place. The patient at a time of admission showed to have a paced rhythm on the EKG. Chest x-ray showed small bilateral pleural effusion in addition to cardiomegaly and prominent vascular markings. White cell count was at 5.1 with a hemoglobin of 9.4 and platelets of 123. BUN was 71 with a creatinine of 2.56 and a troponin 1 was negative. ProBNP level was 99,400. The patient had an echocardiogram that showed an ejection fraction of 45-50% with severe mitral regurgitation and moderate degree of pulmonary hypertension. Patient was diagnosed having an acute decompensated heart failure and COPD exacerbation. Noted the patient is a chronic smoker. A pulmonary consultation was also requested accordingly. Currently the patient is on IV Lasix 60 mg every 12 hours, the patient is also on 4 L about 2 by nasal cannula with a pulse ox of 98-99% . note that the covid 19 PCR came back negative. This morning, the patient is on 4 L of oxygen by nasal cannula. Saturations around 99%. She is afebrile. She remains on IV Lasix 60 mg every 8 hours. The with balance over the past 24 hours has been -620 mL and the kajal ent's BUN and creatinine are 76 and 3.02 respectively. Potassium level is up to 5.2. On today's evaluation of 11/28/2016, the patient is being seen in follow-up. The patient is being treated for CHF predominantly and a mild component of COPD. She had interstitial edema and small bilateral pleural effusions and her chest x-ray. She is on Lasix 60 mg every 8 hours. She is a negative fluid balance of 1.6 L over the past 24 hours. She is also empirically covered with antibiotics. She is on DuoNeb neb last treatment and IV Solu-Medrol 40 mg every 8 hours as the patient was having some limited amount of wheezing on yesterday's evaluation. The blood work from today is showing a BUN of 2080 with a creatinine of 2.8 and the numbers have improved compared to yesterday. Woke was up to 246 and this is probably related to steroids. Potassium level is up to 5.2. Covid 19 was negative. UA was abnormal and urine culture are still pending he was the patient is covered with IV Rocephin regarding the possibility of a gram-negative UTI. She remains on oxygen at 4 L with a pulse ox of 99%. 05/01/2021, I'm seeing the patient for a follow-up regarding her acute hypoxic respiratory failure. She is predominantly CHF with a mild component of COPD. I have her on Lasix 60 mg IV every 8 hours and she is also on Zaroxolyn 5 mg by mouth daily. Fluid balance has been -1.6 L over the past 24 hours and since this morning she is another sister 50 mL negative. Blood work and electrolytes shows that the patient's potassium level is at 5.0 and the creatinine is at 2.6 with a BUN of 94. Her blood sugar is elevated at 46 and I am contemplating to reduce the Solu-Medrol dose as the patient has developed steroid-induced hyperglycemia. She is on DuoNeb nebulized treatments around the clock. She is on IV Solu-Medrol 40 mg every 8 hours. Her current pulse ox is currently 98% 40s about 2 by nasal cannula and this can be further weaned down. Her urine culture came back positive for gram-negative UTI and the patient is currently on IV Rocephin. Chest x-ray from today is showing improvement in the pleural effusions and the patient bilaterally. She has cardiomegaly. 11/30/2020, the patient is still on diuretics on a combination of Lasix and Zaroxolyn. She has been in a negative fluid balance again for several days in a row. Her urine output has progressively slowed down. On her blood work, she has a normal white cell count of 7 with hemoglobin of 10.0. Electrodes are still pending for now. She is on DuoNeb nebulized treatments around the clock. She is on IV Solu-Medrol and we had a steroids for an underlying COPD exacerbation in combination with CHF and fluid overload. She also had Citrobacter urine and the patient is on IV Rocephin Today's evaluation of 12/01/2020, the patient is feeling well. The patient is started on diuretics 60 mg IV Lasix every 8 hours. She is also on Zaroxolyn 5 mg by mouth daily. The patient is completing a prednisone burst taper. Blood sugar management is with Levemir insulin 35 units along with a 10 units of NovoLog with meals and sliding scale coverage. She is doing well. No specific complaints. She is on DuoNeb nebulized treatments around the clock. She is also Pulmicort Respules. No fever. No chills. No night sweats. Renal function is stable and the patient's creatinine is at 2.7 with a BUN of 129. Electrolytes are all within normal limits. 12/02/2020 the patient looks better. In terms of her diuretics, the patient is on a combination of Lasix and Zaroxolyn. Lasix is at a dose of 40 mg every 8 hours and this was discontinued and Zaroxolyn was also discontinued and the patient was started on Demadex 40 mg by mouth daily. This was done by nephrology. His BUN currently is at 137 and the creatinine is up to 2.8 the 3. The patient is well diuresis for now. No major respiratory distress. I also started on a prednisone burst taper regarding her COPD exacerbation. She has been a significant amount of negative fluid balance approximately 2.6 L 40 yesterday and she continues to make good amount of urine output. No chest pain. No angina. No palpitation. No other significant events overnight. Patient was reevaluated today on 12/04/2020, patient is doing well, asymptomatic, she is being considered for discharge, and Dr. Hammer felt that we will see her when necessary Objective - Vital Signs Vital signs: Vital Signs Temp 97.3 F L 12/04/20 08:00 Pulse 72 12/04/20 16:21 Resp 20 12/04/20 04:00 BP 129/54 12/04/20 12:00 Pulse Ox 98 12/04/20 08:00 Intake & Output 12/03/20 12/04/2012/04/21 18:59 06:59 18:59 Intake Total 480 240 Output Total 009 005 5757 Balance -270 -802 -760 Weight 91.5 kg Intake: Oral 480 240 Output: Urine 159 058 6145 Stool 2 Other: Voiding Method Toilet Toilet Diaper - Exam Physical exam revealed 80-year-old female in no distress. HEENT PERRLA, EOMI, nonicteric. No neck masses no JVD no stridor. Neck supple no neck masses no thyromegaly. No stridor. Chest : Minimal crackles at the bases no rhonchi and no wheezes. Cardiac exam reveals regular heart sounds S1 and S2 no gallops no murmurs Abdomen is soft nontender no organomegaly with normal bowel sounds Extremity 1+ bipedal edema no clubbing or cyanosis. Neurological : Alert and oriented 3 focal deficits. Psychiatric: Normal mood affect and normal mental status examination. - Labs CBC & Chem 7: 12/03/20 09:03 12/03/20 09:03 Labs: Abnormal Lab Results - Last 24 Hours (Table) 12/03/20 12/03/20 12/04/20 Range/Units 16:44 20:05 07:16 POC Glucose (mg/dL) 244 H 377 H 120 H (75-99) mg/dL 12/04/20 Range/Units 11:48 POC Glucose (mg/dL) 127 H (75-99) mg/dL Assessment and Plan Assessment: Impression: acute on chronic hypoxic respiratory failure, multifactorial, secondary to a cute on chronic systolic and diastolic congestive heart failure and underlying COPD. Acute on chronic CHF with impaired ejection fraction of 45-50% and moderate to severe mitral regurgitation pulmonary patien chronic kidney disease, stage III, creatinine slightly improved compared to yesterday History of coronary artery disease status post bypass grafting 19 years ago Type 2 diabetes. History of underlying COPD. Patient is O2 dependent. But not compliant with her oxygen on a regular basis. History of pacemaker implantation. Obesity. Previous history of lap band procedure. Obstructive sleep apnea syndrome on BiPAP. Recommendation: Continue present supportive care measures. Cleared from our perspective for discharge once the patient is cleared by cardiology. We will sign off and see the patient on when necessary basis. Time with Patient: Less than 30
[2020-12-04 17:11] LABS: Glucose,Whole Blood 164 mg/dL (75-99)
--- NOTE | 2020-12-04 18:32 | P.PN ---
Subjective Progress Note Date: 12/04/20 Elza Avery, is an 80-year-old female patient of Dr. Ward, who presented to [facility] emergency room with a chief complaint of shortness of breath, patient stated that she had worsening lower extremity edema and weight gain for the last 6 weeks she has a known history of diastolic congestive heart failure and history of COPD with chronic respiratory failure requiring home oxygen use, patient checks her pulse ox at home and it was down in the 80s and she decided to come to emergency room. Patient was evaluated in the emergency room her vital examination on presentation revealed a temperature of 97.9 pulse 60 respiration 18 and blood pressure 164/67 pulse ox 93% on 4 L nasal cannula, white blood count was 6.0 hemoglobin 9.5 platelet count 137, sodium 140 potassium 5.0 chloride 109 CO2 26 BUN 72 creatinine 2.68, AST and ALT within normal limits glucose 111 troponin at 0.018 BNP elevated at 29,400 coronavirus PCR was negative patient stated that she was vaccinated for Covid 19. Chest x- ray done in the emergency room revealed small bilateral pleural effusions, cardiomegaly, with evidence of fluid overload and vascular prominence, EKG done in the emergency room revealed dual paced rhythm. Patient was admitted to telemetry floor, nephrology consultation and cardiology consultation were requested. Past medical history is significant for history of coronary artery disease, history of chronic diastolic congestive heart failure, history of hypertension, history of hypothyroidism, history of chronic kidney disease, history of cardiac arrhythmia with history of pacemaker placement. On review of systems patient is complaining of cough and shortness of breath, and bilateral lower extremity swelling with weight gain otherwise she denies any complaints there is no fever or chills no headache or dizziness no chest pain no palpitation no nausea or vomiting no abdominal pain no diarrhea no blood in the stools no burning with urination no frequency or urgency and no hematuria there is no weakness or numbness in any of the extremities no change in vision speech or gait On on 11/26/2020 patient is alert and oriented 3 resting comfortably in bed. Patient reports minimum improvement with shortness of breath. Patient remains on IV Lasix. Nephrology cardiology services following. Pulmonary service is consulted. Swelling to lower extremities do appear slightly improved. Patient denies nausea vomiting or diarrhea. Patient denies any urinary burning or frequency On 11/27/2020 patient was seen and examined on the telemetry floor she is alert and oriented 3 in no distress. Patient reports minimum improvement with shortness of breath. Patient remains on IV Lasix. Nephrology cardiology services are following. Pulmonary service is consulted. Swelling to lower extremities do is slightly improved. otherwise she denies any complaints there is no fever or chills no headache or dizziness no chest pain no palpitation no nausea or vomiting no abdominal pain no diarrhea no blood in the stools no burning with urination no frequency or urgency and no hematuria there is no weakness or numbness in any of the extremities no change in vision speech or gai t On 11/28/2020 patient is alert and oriented x 3. Patient appears improved. wt decreasing grom 94.7 kg to 93.7 kg. remains on lasix 60mg IV q8hr. creatinine slightly improved. swelling to lower extremity improved. Denies any chest pain. Denies any nausea vomiting or diarrhea. denies any urinary burning or frequency. On 11/29/2020 patient was seen and examined on the telemetry floor she is alert and oriented 3 in no apparent distress she states that her shortness of breath is improving she is maintained on IV Lasix there is no fever or chills no headache or dizziness no chest pain no nausea or vomiting no abdominal pain no diarrhea no blood in the stools no burning with urination no frequency or urgency and no hematuria On 11/30/2020 patient was seen and examined on the telemetry floor she is alert and oriented 3 in no distress she is reporting improvement in her shortness of breath she is maintained on IV Lasix there is no fever or chills no headache or dizziness no chest pain no nausea or vomiting no abdominal pain no diarrhea no blood in the stools no burning with urination no frequency or urgency and no hematuria On 12/01/2020 patient is alert and oriented x 3. remains on IV lasix. weight decreasing from 96kg to 95.3kg. nephrology, cardiology and pulmonary services following. Denies any urinary burning or frequency. denies any urinary burning or frequency. denies any chest pain or shortness of breath. On 12/02/2020 patient was seen and examined on the medical floor she is alert and oriented 3 she is feeling somewhat better her shortness of breath and lower extremity edema has improved, otherwise she denies any complaints there is no fever or chills no headache or dizziness no chest pain no nausea or vomiting no abdominal pain no diarrhea and no urinary symptoms at this time will add physical therapy and occupational therapy will continue to monitor closely On 12/03/2020 patient was seen and examined on the medical floor she is alert and oriented 3 she is still complaining of shortness of breath and lower extremity edema, otherwise she denies any complaints there is no fever or chills no headache or dizziness no chest pain no nausea or vomiting no abdominal pain no diarrhea and no urinary symptoms at this time will add physical therapy and occupational therapy will continue to monitor closely. On 12/04/2020 patient was seen and examined on the medical floor she is alert and oriented in no distress she is still complaining of shortness of breath her blood pressure is significantly elevated patient received IV hydralazine during the last night as needed for elevated blood pressure this morning I have added hydralazine 25 mg by mouth twice daily Will continue to monitor otherwise patient denies any complaints there is no fever or chills no headache or dizziness no chest pain no nausea or vomiting no abdominal pain no diarrhea and no urinary symptoms. Objective - Vital Signs Vital signs: Vital Signs Temp 97.3 F L 12/04/20 08:00 Pulse 76 12/04/20 13:08 Resp 20 12/04/20 04:00 BP 178/73 12/04/20 08:00 Pulse Ox 98 12/04/20 08:00 Intake & Output 12/03/20 12/04/20 12/04/20 18:59 06:59 18:59 Intake Total 480 240 Output Total 624 501 6589 Balance -270 -802 -760 Weight 91.5 kg Intake: Oral 480 240 Output: Urine 934 403 3932 Stool 2 Other: Voiding Method Toilet Toilet Diaper - Exam In general patient is alert and oriented 3 in no apparent distress HEENT head normocephalic and atraumatic Neck is supple no JVD no goiter no lymphadenopathy Chest exam reveals a few scattered rhonchi no wheezing Cardiac exam reveals regular heart sounds S1 and S2 no gallops no murmurs Abdomen is soft nontender no organomegaly with normal bowel sounds Extremity exam reveals 2+ edema no cyanosis or clubbing Neurological examination reveals no gross focal deficit - Labs CBC & Chem 7: 12/03/20 09:03 12/03/20 09:03 Labs: Abnormal Lab Results - Last 24 Hours (Table) 12/03/20 12/03/20 12/04/20 Range/Units 16:44 20:05 07:16 POC Glucose (mg/dL) 244 H 377 H 120 H (75-99) mg/dL 12/04/20 Range/Units 11:48 POC Glucose (mg/dL) 127 H (75-99) mg/dL Assessment and Plan Plan: Worsening shortness of breath multi-factorial related to acute exacerbation of diastolic congestive heart failure, with evidence of bilateral pleural effusion and underlying advanced chronic obstructive pulmonary disease with history of chronic hypoxic respiratory failure requiring home oxygen use. Evidence of anemia hemoglobin is 9.5 on presentation will check iron vitamin B12 and folate levels Underlying history of chronic kidney disease, patient is followed by Dr. Roland she stated that last year she had to be on dialysis for several months Underlying history of chronic diastolic congestive heart failure will check echocardiogram Will consult cardiology Underlying history of diabetes mellitus Underlying history of hypertension Underlying history of hyperlipidemia Underlying history of coronary artery disease, maintained on Plavix and aspirin Underlying history of cardiac arrhythmia with history of pacemaker placement Underlying history of depression maintained on Mirtazapine Underlying history of chronic obstructive pulmonary disease Urinary tract infection. Patient started on Rocephin urine culture ordered COPD exacerbation. maintained on steroids Patient maintained on IV Lasix for diuresis nephrology, cardiology and pulmonary services following
[2020-12-04 20:23] LABS: Glucose,Whole Blood 390 mg/dL (75-99)
[2020-12-04] MEDS: ATORVASTATIN 10 MG TAB PO SCH (20:23)
[2020-12-04] MEDS: NICOTINE 14MG/24HR PATCH TRANSDERM SCH (20:23)
[2020-12-04] MEDS: TEMAZEPAM 15 MG CAP PO SCH (20:23)
[2020-12-04] MEDS: INSULIN DETEMIR (LEVEMIR) 100 UNIT/ML SYR SQ SCH (20:28)
[2020-12-05] MEDS: BUDESONIDE 1 MG/2 ML NEBU INHALATION SCH ×3 (02:17→20:06)
[2020-12-05] MEDS: FORMOTEROL FUMARATE 20 MCG/2 ML NEBU INHALATION SCH ×3 (02:17→20:06)
[2020-12-05] MEDS: IPRATROPIUM-ALBUTEROL 3 ML NEB INHALATION SCH ×5 (02:17→20:06)
[2020-12-05] MEDS: PANTOPRAZOLE 40 MG TABLET PO SCH (06:20)
[2020-12-05] MEDS: carvediloL 6.25 MG TAB PO SCH ×2 (06:20→17:55)
[2020-12-05] MEDS: INSULIN ASPART (NovoLOG) 100 UNIT/ML VIAL SQ SCH ×7 (06:58→22:12)
[2020-12-05 07:03] LABS: Glucose,Whole Blood 87 mg/dL (75-99)
[2020-12-05] MEDS: predniSONE 10 MG TAB PO SCH (08:29)
[2020-12-05] MEDS: ASPIRIN 81 MG PO SCH (08:29)
[2020-12-05] MEDS: hydrALAZINE HCL 25 MG TAB PO SCH ×2 (08:29→22:11)
[2020-12-05] MEDS: MIRTAZAPINE 15 MG TAB PO SCH (08:29)
[2020-12-05] MEDS: CLOPIDOGREL 75 MG TAB PO SCH (08:29)
[2020-12-05 08:34] LABS: Anisocytosis Slight; HCT 32.5 % (34.0-46.0); HGB 10.3 gm/dL (11.4-16.0); MCH 28.5 pg (25.0-35.0); MCHC 31.6 g/dL (31.0-37.0); MCV 90.1 fL (80.0-100.0); Mean Platelet Volume 9.5; Platelet Count 159 k/uL (150-450); RBC 3.61 m/uL (3.80-5.40); RDW 16.3 % (11.5-15.5)
[2020-12-05 08:41] LABS: Albumin 3.2 g/dL (3.5-5.0); Calcium 7.9 mg/dL (8.4-10.2); Total Bilirubin 0.6 mg/dL (0.2-1.3); Total Protein 5.8 g/dL (6.3-8.2)
[2020-12-05 08:48] LABS: Potassium 4.9 mmol/L (3.5-5.1)
[2020-12-05] MEDS: TORSEMIDE 20 MG TAB PO SCH (09:34)
[2020-12-05] MEDS: metOLazone 5 MG TAB PO SCH (09:35)
--- NOTE | 2020-12-05 11:13 | P.PN ---
Subjective Patient is seen in follow-up for chronic kidney disease. Renal function stable. Denies chest pain or shortness of breath. Currently on 2 L nasal cannula. Nonoliguric. Vital signs are stable. General: The patient appeared well nourished and normally developed. HEENT: Head exam is unremarkable. Neck is without jugular venous distension. LUNGS: Breath sounds decreased. HEART: Rate and Rhythm are regular. ABDOMEN: Soft, nontender. EXTREMITITES: 1+ edema. Objective - Vital Signs Vital signs: Vital Signs Temp 97.4 F L 12/05/20 08:20 Pulse 68 12/05/20 09:41 Resp 18 12/05/20 08:20 BP 105/58 12/05/20 08:20 Pulse Ox 100 12/05/20 08:20 Intake & Output 12/04/20 12/05/20 12/05/20 18:59 06:59 18:59 Intake Total 720 480 Output Total 1650 450 300 Balance -930 -450 180 Weight 90.6 kg Intake: Oral 720 480 Output: Urine 1650 450 300 - Labs CBC & Chem 7: 12/05/20 07:49 12/05/20 07:49 Labs: Abnormal Lab Results - Last 24 Hours (Table) 12/04/20 12/04/20 12/04/20 Range/Units 11:48 16:48 20:22 RBC (3.80-5.40) m/uL Hgb (11.4-16.0) gm/dL Hct (34.0-46.0) % RDW (11.5-15.5) % Sodium (137-145) mmol/L Chloride (98-107) mmol/L Carbon Dioxide (22-30) mmol/L BUN (7-17) mg/dL Creatinine (0.52-1.04) mg/dL Glucose (74-99) mg/dL POC Glucose (mg/dL) 127 H 164 H 390 H (75-99) mg/dL Calcium (8.4-10.2) mg/dL Alkaline Phosphatase (38-126) U/L Total Protein (6.3-8.2) g/dL Albumin (3.5-5.0) g/dL 12/05/20 12/05/20 Range/Units 07:49 07:49 RBC 3.61 L (3.80-5.40) m/uL Hgb 10.3 L (11.4-16.0) gm/dL Hct 32.5 L (34.0-46.0) % RDW 16.3 H (11.5-15.5) % Sodium 132 L (137-145) mmol/L Chloride 90 L (98-107) mmol/L Carbon Dioxide 33 H (22-30) mmol/L BUN 146 H* (7-17) mg/dL Creatinine 2.55 H (0.52-1.04) mg/dL Glucose 105 H (74-99) mg/dL POC Glucose (mg/dL) (75-99) mg/dL Calcium 7.9 L (8.4-10.2) mg/dL Alkaline Phosphatase 35 L (38-126) U/L Total Protein 5.8 L (6.3-8.2) g/dL Albumin 3.2 L (3.5-5.0) g/dL Assessment and Plan Plan: Assessment: 1. Chronic kidney disease stage IV secondary to diabetic kidney disease and cardiorenal syndrome. Creatinine stable at 2.55 today. 2. Volume overload. Improved with diuresis. 3. Disproportionately elevated BUN secondary to chronic kidney disease as well as steroids. No evidence of GI bleed. 4. Hypervolemic hyponatremia. 5. Anemia of chronic kidney disease maintained on Aranesp. 6. Diabetes mellitus. Plan: Maintain torsemide and metolazone. Advised low salt diet. Patient was advised to monitor her weight closely at home and to call if gains more than 3-4 pounds in 1 week duration. Anticipate discharge soon. Follow up outpatient within 1 week.
[2020-12-05 11:23] LABS: Lymphocytes # (M) 1.92 k/uL (1.0-4.8); Monocytes # (M) 0.72 k/uL (0-1.0); Myelocytes # (M) 0.08 k/uL (0); Myelocytes % 1 %; Neutrophils # (M) 5.44 k/uL (1.3-7.7); Neutrophils % (M) 68 %; Nucleated Red Blood Cells 0 /100 WBC (0-0); Poikilocytosis (M) Present; Polychromasia Present; Total Cells Counted 200
[2020-12-05 12:28] LABS: Glucose,Whole Blood 193 mg/dL (75-99)
[2020-12-05 17:26] LABS: Glucose,Whole Blood 336 mg/dL (75-99)
--- NOTE | 2020-12-05 18:47 | P.PN ---
Subjective Progress Note Date: 12/05/20 Elza Avery, is an 80-year-old female patient of Dr. Ward, who presented to [facility] emergency room with a chief complaint of shortness of breath, patient stated that she had worsening lower extremity edema and weight gain for the last 6 weeks she has a known history of diastolic congestive heart failure and history of COPD with chronic respiratory failure requiring home oxygen use, patient checks her pulse ox at home and it was down in the 80s and she decided to come to emergency room. Patient was evaluated in the emergency room her vital examination on presentation revealed a temperature of 97.9 pulse 60 respiration 18 and blood pressure 164/67 pulse ox 93% on 4 L nasal cannula, white blood count was 6.0 hemoglobin 9.5 platelet count 137, sodium 140 potassium 5.0 chloride 109 CO2 26 BUN 72 creatinine 2.68, AST and ALT within normal limits glucose 111 troponin at 0.018 BNP elevated at 29,400 coronavirus PCR was negative patient stated that she was vaccinated for Covid 19. Chest x- ray done in the emergency room revealed small bilateral pleural effusions, cardiomegaly, with evidence of fluid overload and vascular prominence, EKG done in the emergency room revealed dual paced rhythm. Patient was admitted to telemetry floor, nephrology consultation and cardiology consultation were requested. Past medical history is significant for history of coronary artery disease, history of chronic diastolic congestive heart failure, history of hypertension, history of hypothyroidism, history of chronic kidney disease, history of cardiac arrhythmia with history of pacemaker placement. On review of systems patient is complaining of cough and shortness of breath, and bilateral lower extremity swelling with weight gain otherwise she denies any complaints there is no fever or chills no headache or dizziness no chest pain no palpitation no nausea or vomiting no abdominal pain no diarrhea no blood in the stools no burning with urination no frequency or urgency and no hematuria there is no weakness or numbness in any of the extremities no change in vision speech or gait On on 11/26/2020 patient is alert and oriented 3 resting comfortably in bed. Patient reports minimum improvement with shortness of breath. Patient remains on IV Lasix. Nephrology cardiology services following. Pulmonary service is consulted. Swelling to lower extremities do appear slightly improved. Patient denies nausea vomiting or diarrhea. Patient denies any urinary burning or frequency On 11/27/2020 patient was seen and examined on the telemetry floor she is alert and oriented 3 in no distress. Patient reports minimum improvement with shortness of breath. Patient remains on IV Lasix. Nephrology cardiology services are following. Pulmonary service is consulted. Swelling to lower extremities do is slightly improved. otherwise she denies any complaints there is no fever or chills no headache or dizziness no chest pain no palpitation no nausea or vomiting no abdominal pain no diarrhea no blood in the stools no burning with urination no frequency or urgency and no hematuria there is no weakness or numbness in any of the extremities no change in vision speech or gai t On 11/28/2020 patient is alert and oriented x 3. Patient appears improved. wt decreasing grom 94.7 kg to 93.7 kg. remains on lasix 60mg IV q8hr. creatinine slightly improved. swelling to lower extremity improved. Denies any chest pain. Denies any nausea vomiting or diarrhea. denies any urinary burning or frequency. On 11/29/2020 patient was seen and examined on the telemetry floor she is alert and oriented 3 in no apparent distress she states that her shortness of breath is improving she is maintained on IV Lasix there is no fever or chills no headache or dizziness no chest pain no nausea or vomiting no abdominal pain no diarrhea no blood in the stools no burning with urination no frequency or urgency and no hematuria On 11/30/2020 patient was seen and examined on the telemetry floor she is alert and oriented 3 in no distress she is reporting improvement in her shortness of breath she is maintained on IV Lasix there is no fever or chills no headache or dizziness no chest pain no nausea or vomiting no abdominal pain no diarrhea no blood in the stools no burning with urination no frequency or urgency and no hematuria On 12/01/2020 patient is alert and oriented x 3. remains on IV lasix. weight decreasing from 96kg to 95.3kg. nephrology, cardiology and pulmonary services following. Denies any urinary burning or frequency. denies any urinary burning or frequency. denies any chest pain or shortness of breath. On 12/02/2020 patient was seen and examined on the medical floor she is alert and oriented 3 she is feeling somewhat better her shortness of breath and lower extremity edema has improved, otherwise she denies any complaints there is no fever or chills no headache or dizziness no chest pain no nausea or vomiting no abdominal pain no diarrhea and no urinary symptoms at this time will add physical therapy and occupational therapy will continue to monitor closely On 12/03/2020 patient was seen and examined on the medical floor she is alert and oriented 3 she is still complaining of shortness of breath and lower extremity edema, otherwise she denies any complaints there is no fever or chills no headache or dizziness no chest pain no nausea or vomiting no abdominal pain no diarrhea and no urinary symptoms at this time will add physical therapy and occupational therapy will continue to monitor closely. On 12/04/2020 patient was seen and examined on the medical floor she is alert and oriented in no distress she is still complaining of shortness of breath her blood pressure is significantly elevated patient received IV hydralazine during the last night as needed for elevated blood pressure this morning I have added hydralazine 25 mg by mouth twice daily Will continue to monitor otherwise patient denies any complaints there is no fever or chills no headache or dizziness no chest pain no nausea or vomiting no abdominal pain no diarrhea and no urinary symptoms. On 12/05/2020 patient was seen and examined on the medical floor she is alert and oriented 3 in no distress there is no fever or chills no headache or dizziness no chest pain shortness of breath is improving there is no cough no nausea or vomiting no abdominal pain no diarrhea no burning with urination no frequency or urgency and no hematuria blood pressure medications are being a djusted dose of hydralazine is being increased to 25 mg 3 times daily new to monitor possible discharge to home tomorrow Objective - Vital Signs Vital signs: Vital Signs Temp 97.0 F L 12/05/20 12:00 Pulse 62 12/05/20 16:00 Resp 18 12/05/20 16:00 BP 150/72 12/05/20 16:00 Pulse Ox 98 12/05/20 16:00 Intake & Output 12/04/20 12/05/20 12/05/20 18:59 06:59 18:59 Intake Total 720 720 Output Total 1650 450 300 Balance -930 -450 420 Weight 90.6 kg Intake: Oral 720 720 Output: Urine 1650 450 300 - Exam In general patient is alert and oriented 3 in no apparent distress HEENT head normocephalic and atraumatic Neck is supple no JVD no goiter no lymphadenopathy Chest exam reveals a few scattered rhonchi no wheezing Cardiac exam reveals regular heart sounds S1 and S2 no gallops no murmurs Abdomen is soft nontender no organomegaly with normal bowel sounds Extremity exam reveals 2+ edema no cyanosis or clubbing Neurological examination reveals no gross focal deficit - Labs CBC & Chem 7: 12/05/20 07:49 12/05/20 07:49 Labs: Abnormal Lab Results - Last 24 Hours (Table) 12/04/20 12/05/20 12/05/20 Range/Units 20:22 07:49 07:49 RBC 3.61 L (3.80-5.40) m/uL Hgb 10.3 L (11.4-16.0) gm/dL Hct 32.5 L (34.0-46.0) % RDW 16.3 H (11.5-15.5) % Myelocytes # (Manual) 0.08 H (0) k/uL Sodium 132 L (137-145) mmol/L Chloride 90 L (98-107) mmol/L Carbon Dioxide 33 H (22-30) mmol/L BUN 146 H* (7-17) mg/dL Creatinine 2.55 H (0.52-1.04) mg/dL Glucose 105 H (74-99) mg/dL POC Glucose (mg/dL) 390 H (75-99) mg/dL Calcium 7.9 L (8.4-10.2) mg/dL Alkaline Phosphatase 35 L (38-126) U/L Total Protein 5.8 L (6.3-8.2) g/dL Albumin 3.2 L (3.5-5.0) g/dL 12/05/20 12/05/20 Range/Units 12:22 17:05 RBC (3.80-5.40) m/uL Hgb (11.4-16.0) gm/dL Hct (34.0-46.0) % RDW (11.5-15.5) % Myelocytes # (Manual) (0) k/uL Sodium (137-145) mmol/L Chloride (98-107) mmol/L Carbon Dioxide (22-30) mmol/L BUN (7-17) mg/dL Creatinine (0.52-1.04) mg/dL Glucose (74-99) mg/dL POC Glucose (mg/dL) 193 H 336 H (75-99) mg/dL Calcium (8.4-10.2) mg/dL Alkaline Phosphatase (38-126) U/L Total Protein (6.3-8.2) g/dL Albumin (3.5-5.0) g/dL Assessment and Plan Plan: Worsening shortness of breath multi-factorial related to acute exacerbation of diastolic congestive heart failure, with evidence of bilateral pleural effusion and underlying advanced chronic obstructive pulmonary disease with history of chronic hypoxic respiratory failure requiring home oxygen use. Evidence of anemia hemoglobin is 9.5 on presentation will check iron vitamin B12 and folate levels Underlying history of chronic kidney disease, patient is followed by Dr. Roland she stated that last year she had to be on dialysis for several months Underlying history of chronic diastolic congestive heart failure will check echocardiogram Will consult cardiology Underlying history of diabetes mellitus Underlying history of hypertension Underlying history of hyperlipidemia Underlying history of coronary artery disease, maintained on Plavix and aspirin Underlying history of cardiac arrhythmia with history of pacemaker placement Underlying history of depression maintained on Mirtazapine Underlying history of chronic obstructive pulmonary disease Urinary tract infection. Patient started on Rocephin urine culture ordered COPD exacerbation. maintained on steroids Patient maintained on IV Lasix for diuresis nephrology, cardiology and pulmonary services following
[2020-12-05 20:46] LABS: Glucose,Whole Blood 319 mg/dL (75-99)
[2020-12-05] MEDS: TEMAZEPAM 15 MG CAP PO SCH (22:11)
[2020-12-05] MEDS: ATORVASTATIN 10 MG TAB PO SCH (22:11)
[2020-12-05] MEDS: INSULIN DETEMIR (LEVEMIR) 100 UNIT/ML SYR SQ SCH (22:12)
[2020-12-05] MEDS: NICOTINE 14MG/24HR PATCH TRANSDERM SCH (22:13)
[2020-12-06] MEDS: hydrALAZINE HCL 25 MG TAB PO SCH ×3 (00:54→17:27)
[2020-12-06 04:57] VITALS: RESP 16; TEMP 97.2
[2020-12-06 07:14] LABS: Glucose,Whole Blood 92 mg/dL (75-99)
[2020-12-06] MEDS: INSULIN ASPART (NovoLOG) 100 UNIT/ML VIAL SQ SCH ×6 (07:27→17:28)
[2020-12-06] MEDS: PANTOPRAZOLE 40 MG TABLET PO SCH (07:32)
[2020-12-06] MEDS: carvediloL 6.25 MG TAB PO SCH ×2 (07:32→17:27)
[2020-12-06] MEDS: ASPIRIN 81 MG PO SCH (08:46)
[2020-12-06] MEDS: predniSONE 10 MG TAB PO SCH (08:46)
[2020-12-06] MEDS: CLOPIDOGREL 75 MG TAB PO SCH (08:47)
[2020-12-06] MEDS: metOLazone 5 MG TAB PO SCH (08:47)
[2020-12-06] MEDS: TORSEMIDE 20 MG TAB PO SCH (08:49)
[2020-12-06] MEDS: MIRTAZAPINE 15 MG TAB PO SCH (08:49)
[2020-12-06] MEDS: FORMOTEROL FUMARATE 20 MCG/2 ML NEBU INHALATION SCH (09:20)
[2020-12-06] MEDS: IPRATROPIUM-ALBUTEROL 3 ML NEB INHALATION SCH ×4 (09:22→16:34)
[2020-12-06] MEDS: BUDESONIDE 1 MG/2 ML NEBU INHALATION SCH (09:22)
--- NOTE | 2020-12-06 10:26 | P.PN ---
Subjective Patient is seen in follow-up for chronic kidney disease. Renal function stable as of yesterday. Denies chest pain or shortness of breath. Currently on 2 L nasal cannula. Nonoliguric. Hemodynamically stable. Vital signs are stable. General: The patient appeared well nourished and normally developed. HEENT: Head exam is unremarkable. Neck is without jugular venous distension. LUNGS: Breath sounds decreased. HEART: Rate and Rhythm are regular. ABDOMEN: Soft, nontender. EXTREMITITES: Trace edema. Objective - Vital Signs Vital signs: Vital Signs Temp 97.2 F L 12/06/20 08:00 Pulse 64 12/06/20 09:33 Resp 16 12/06/20 08:00 BP 120/55 12/06/20 08:00 Pulse Ox 99 12/06/20 08:00 Intake & Output 12/05/20 12/06/20 12/06/20 18:59 06:59 18:59 Intake Total 1200 Output Total 950 Balance 250 Weight 90.3 kg Intake: Oral 1200 Output: Urine 950 Other: Voiding Method Toilet # Voids 1 - Labs CBC & Chem 7: 12/05/20 07:49 12/05/20 07:49 Labs: Abnormal Lab Results - Last 24 Hours (Table) 12/05/20 12/05/20 12/05/20 Range/Units 07:49 12:22 17:05 Myelocytes # (Manual) 0.08 H (0) k/uL POC Glucose (mg/dL) 193 H 336 H (75-99) mg/dL 12/05/20 Range/Units 20:45 Myelocytes # (Manual) (0) k/uL POC Glucose (mg/dL) 319 H (75-99) mg/dL Assessment and Plan Plan: Assessment: 1. Chronic kidney disease stage IV secondary to diabetic kidney disease and cardiorenal syndrome. Creatinine stable at 2.55 as of yesterday. 2. Volume overload. Improved with diuresis. 3. Disproportionately elevated BUN secondary to chronic kidney disease as well as steroids. No evidence of GI bleed. 4. Hypervolemic hyponatremia. 5. Anemia of chronic kidney disease maintained on Aranesp. 6. Diabetes mellitus. Plan: Maintain torsemide. Decrease torsemide to every other day. Advised low salt diet. Check stool for occult blood. Patient was advised to monitor her weight closely at home and to call if gains more than 3-4 pounds in 1 week duration. Anticipate discharge soon. Follow up outpatient within 1 week.
[2020-12-06] MEDS ORDERED: DOCUSATE 100 MG CAP PO PRN (11:56)
[2020-12-06 12:08] LABS: Glucose,Whole Blood 147 mg/dL (75-99)
[2020-12-06] MEDS: DARBEPOETIN ALFA 40 MCG/0.4 ML SYRINGE SQ SCH (12:29)
[2020-12-06 13:17] LABS: Anisocytosis Slight; Basophils % (A) 0 %; Eosinophils % (A) 1 %; HCT 32.1 % (34.0-46.0); HGB 10.6 gm/dL (11.4-16.0); Lymphocytes # (A) 0.7 k/uL (1.0-4.8); Lymphocytes % (A) 9 %; MCH 29.7 pg (25.0-35.0); MCHC 32.9 g/dL (31.0-37.0); MCV 90.4 fL (80.0-100.0); Mean Platelet Volume 10.5; Monocytes # (A) 1.3 k/uL (0-1.0); Monocytes % (A) 16 %; Neutrophils # (A) 5.9 k/uL (1.3-7.7); Neutrophils % (A) 73 %; Platelet Count 147 k/uL (150-450); RBC 3.55 m/uL (3.80-5.40); RDW 16.2 % (11.5-15.5); WBC 8.1 k/uL (3.8-10.6)
--- NOTE | 2020-12-06 13:33 | P.DS ---
Providers Date of admission: 11/24/20 17:49 Expected date of discharge: 12/06/20 Attending physician: Lona Arias Consults: 11/24/20 17:50 Consult Physician Urgent Consulting Provider: [facility] Consult Reason/Comments: aechf Do you want consulting provider notified?: Yes Consult Physician Urgent Consulting Provider: Nancy Roland Consult Reason/Comments: ckd, aechf Do you want consulting provider notified?: Yes 11/26/20 11:36 Consult Physician Routine Consulting Provider: Deondre Ch Consult Reason/Comments: pleural effusion Do you want consulting provider notified?: Yes Primary care physician: Carissa Ward [facility] Course: Discharge diagnosis orsening shortness of breath multi-factorial related to acute exacerbation of diastolic congestive heart failure, with evidence of bilateral pleural effusion and underlying advanced chronic obstructive pulmonary disease with history of chronic hypoxic respiratory failure requiring home oxygen use. Evidence of anemia hemoglobin is 9.5 on presentation will check iron vitamin B12 and folate levels. Hemoglobin levels are improving Acute on chronic kidney disease, patient is followed by Dr. Roland she stated that last year she had to be on dialysis for several months. Demadex increased during hospitalization Zaroxolyn ordered for every other day. Repeat BMP ordered for 2 days upon discharge patient to follow-up with nephrology services Underlying history of chronic diastolic congestive heart failure Underlying history of diabetes mellitus Underlying history of hypertension Underlying history of hyperlipidemia Underlying history of coronary artery disease, maintained on Plavix and aspirin Underlying history of cardiac arrhythmia with history of pacemaker placement Underlying history of depression maintained on Mirtazapine Underlying history of chronic obstructive pulmonary disease Urinary tract infection. Patient started on Rocephin urine culture positive for Citrobacter freundii. Patient received adequate antibiotic treatment during hospitalization no need for antibiotics upon discharge COPD exacerbation. maintained on steroids. Patient will be DC'd on prednisone taper Hospital course Elza Avery, is an 80-year-old female patient of Dr. Ward, who presented to [facility] emergency room with a chief complaint of shortness of breath, patient stated that she had worsening lower extremity edema and weight gain for the last 6 weeks she has a known history of diastolic congestive heart failure and history of COPD with chronic respiratory failure requiring home oxygen use, patient checks her pulse ox at home and it was down in the 80s and she decided to come to emergency room. Patient was evaluated in the emergency room her vital examination on presentation revealed a temperature of 97.9 pulse 60 respiration 18 and blood pressure 164/67 pulse ox 93% on 4 L nasal cannula, white blood count was 6.0 hemoglobin 9.5 platelet count 137, sodium 140 potassium 5.0 chloride 109 CO2 26 BUN 72 creatinine 2.68, AST and ALT within normal limits glucose 111 troponin at 0.018 BNP elevated at 29,400 coronavirus PCR was negative patient stated that she was vaccinated for Covid 19. Chest x- ray done in the emergency room revealed small bilateral pleural effusions, cardiomegaly, with evidence of fluid overload and vascular prominence, EKG done in the emergency room revealed dual paced rhythm. Patient was admitted to telemetry floor, nephrology consultation and cardiology consultation were requested. Past medical history is significant for history of coronary artery disease, history of chronic diastolic congestive heart failure, history of hypertension, history of hypothyroidism, history of chronic kidney disease, history of cardiac arrhythmia with history of pacemaker placement. On review of systems patient is complaining of cough and shortness of breath, and bilateral lower extremity swelling with weight gain otherwise she denies any complaints there is no fever or chills no headache or dizziness no chest pain no palpitation no nausea or vomiting no abdominal pain no diarrhea no blood in the stools no burning with urination no frequency or urgency and no hematuria there is no weakness or numbness in any of the extremities no change in vision speech or gait On on 11/26/2020 patient is alert and oriented 3 resting comfortably in bed. Patient reports minimum improvement with shortness of breath. Patient remains on IV Lasix. Nephrology cardiology services following. Pulmonary service is consulted. Swelling to lower extremities do appear slightly improved. Patient denies nausea vomiting or diarrhea. Patient denies any urinary burning or frequency On 11/27/2020 patient was seen and examined on the telemetry floor she is alert and oriented 3 in no distress. Patient reports minimum improvement with shortness of breath. Patient remains on IV Lasix. Nephrology cardiology services are following. Pulmonary service is consulted. Swelling to lower extremities do is slightly improved. otherwise she denies any complaints there is no fever or chills no headache or dizziness no chest pain no palpitation no nausea or vomiting no abdominal pain no diarrhea no blood in the stools no burning with urination no frequency or urgency and no hematuria there is no weakness or numbness in any of the extremities no change in vision speech or gait On 11/28/2020 patient is alert and oriented x 3. Patient appears improved. wt decreasing grom 94.7 kg to 93.7 kg. remains on lasix 60mg IV q8hr. creatinine slightly improved. swelling to lower extremity improved. Denies any chest pain. Denies any nausea vomiting or diarrhea. denies any urinary burning or frequency. On 11/29/2020 patient was seen and examined on the telemetry floor she is alert and oriented 3 in no apparent distress she states that her shortness of breath is improving she is maintained on IV Lasix there is no fever or chills no headache or dizziness no chest pain no nausea or vomiting no abdominal pain no diarrhea no blood in the stools no burning with urination no frequency or urge ncy and no hematuria On 11/30/2020 patient was seen and examined on the telemetry floor she is alert and oriented 3 in no distress she is reporting improvement in her shortness of breath she is maintained on IV Lasix there is no fever or chills no headache or dizziness no chest pain no nausea or vomiting no abdominal pain no diarrhea no blood in the stools no burning with urination no frequency or urgency and no hematuria On 12/01/2020 patient is alert and oriented x 3. remains on IV lasix. weight decreasing from 96kg to 95.3kg. nephrology, cardiology and pulmonary services following. Denies any urinary burning or frequency. denies any urinary burning or frequency. denies any chest pain or shortness of breath. On 12/02/2020 patient was seen and examined on the medical floor she is alert and oriented 3 she is feeling somewhat better her shortness of breath and lower extremity edema has improved, otherwise she denies any complaints there is no fever or chills no headache or dizziness no chest pain no nausea or vomiting no abdominal pain no diarrhea and no urinary symptoms at this time will add physical therapy and occupational therapy will continue to monitor closely On 12/03/2020 patient was seen and examined on the medical floor she is alert and oriented 3 she is still complaining of shortness of breath and lower extremity edema, otherwise she denies any complaints there is no fever or chills no headache or dizziness no chest pain no nausea or vomiting no abdominal pain no diarrhea and no urinary symptoms at this time will add physical therapy and occupational therapy will continue to monitor closely. On 12/04/2020 patient was seen and examined on the medical floor she is alert and oriented in no distress she is still complaining of shortness of breath her blood pressure is significantly elevated patient received IV hydralazine during the last night as needed for elevated blood pressure this morning I have added hydralazine 25 mg by mouth twice daily Will continue to monitor otherwise patient denies any complaints there is no fever or chills no headache or dizziness no chest pain no nausea or vomiting no abdominal pain no diarrhea and no urinary symptoms. On 12/05/2020 patient was seen and examined on the medical floor she is alert and oriented 3 in no distress there is no fever or chills no headache or dizziness no chest pain shortness of breath is improving there is no cough no nausea or vomiting no abdominal pain no diarrhea no burning with urination no frequency or urgency and no hematuria blood pressure medications are being adjusted dose of hydralazine is being increased to 25 mg 3 times daily new to monitor possible discharge to home tomorrow On 12/06/2020 patient's alert and oriented 3. Patient denies chest pain or shortness of breath. Patient has been cleared for discharge from pulmonary and nephrology standpoint. Demadex increased during hospitalization. Zaroxolyn ordered for every other day. Hemoglobin improving to 10.6. Blood pressure medications adjusted Coreg increased hydralazine added. Patient to follow-up with nephrology services outpatient for further management of chronic kidney disease. Patient also to follow up with PCP in regards to further plan of care. Patient educated on the importance of smoking cessation nicotine patch ordered upon discharge Patient Condition at Discharge: Stable Plan - Discharge Summary Discharge Rx Participant: No New Discharge Prescriptions: New carvediloL [Coreg] 12.5 mg PO BID-W/MEALS 30 Days #60 tab Docusate [Colace] 100 mg PO DAILY PRN 30 Days #30 cap PRN Reason: Constipation predniSONE 30 mg PO DAILY #19 tab metOLazone [Zaroxolyn] 5 mg PO DAILY 30 Days #30 tab hydrALAZINE HCL [Apresoline] 25 mg PO TID 30 Days #90 tab Torsemide [Demadex] 40 mg PO DAILY 30 Days #60 tab Nicotine 14Mg/24Hr Patch [Habitrol] 1 patch TRANSDERM HS 30 Days #30 patch Continue Simvastatin [Zocor] 5 mg PO HS Insulin Lispro [humaLOG Kwikpen] 10 unit SQ AC-TID Aspirin EC [Ecotrin Low Dose] 81 mg PO DAILY Clopidogrel [Plavix] 75 mg PO DAILY Mirtazapine 15 mg PO DAILY Ergocalciferol (Vitamin D2) [Vitamin D2 (50,000 Iu)] 1,250 mcg PO BONDS Albuterol Nebulized [Ventolin Nebulized] 2.5 mg INHALATION RT-QID PRN PRN Reason: Shortness Of Breath Insulin Detemir [Levemir Flextouch] 20 - 25 units SQ HS Temazepam 30 mg PO HS Discontinued Torsemide [Demadex] 20 mg PO DAILY carvediloL [Coreg] 6.25 mg PO BID Discharge Medication List Simvastatin [Zocor] 5 mg PO HS 11/29/17 [History] Insulin Lispro [humaLOG Kwikpen] 10 unit SQ AC-TID 02/14/20 [History] Aspirin EC [Ecotrin Low Dose] 81 mg PO DAILY 03/09/20 [History] Clopidogrel [Plavix] 75 mg PO DAILY 03/27/20 [History] Ergocalciferol (Vitamin D2) [Vitamin D2 (50,000 Iu)] 1,250 mcg PO BONDS 11/17/20 [History] Mirtazapine 15 mg PO DAILY 11/17/20 [History] Albuterol Nebulized [Ventolin Nebulized] 2.5 mg INHALATION RT-QID PRN 11/24/20 [History] Insulin Detemir [Levemir Flextouch] 20 - 25 units SQ HS 11/24/20 [History] Temazepam 30 mg PO HS 11/24/20 [History] Docusate [Colace] 100 mg PO DAILY PRN 30 Days #30 cap 12/06/20 [Rx] Nicotine 14Mg/24Hr Patch [Habitrol] 1 patch TRANSDERM HS 30 Days #30 patch 12/06 [Rx] Torsemide [Demadex] 40 mg PO DAILY 30 Days #60 tab 12/06/20 [Rx] carvediloL [Coreg] 12.5 mg PO BID-W/MEALS 30 Days #60 tab 12/06/20 [Rx] hydrALAZINE HCL [Apresoline] 25 mg PO TID 30 Days #90 tab 12/06/20 [Rx] metOLazone [Zaroxolyn] 5 mg PO DAILY 30 Days #30 tab 12/06/20 [Rx] predniSONE 30 mg PO DAILY #19 tab 12/06/20 [Rx] Follow up Appointment(s)/Referral(s): Nancy Roland MD [STAFF PHYSICIAN] - 1-2 Days Carissa Ward MD [Primary Care Provider] - 1-2 days [facility], [NON-STAFF] - Ambulatory/Diagnostic Orders: Basic Metabolic Panel [LAB.AMB] Time Frame: 2 Days, Location: None Selected Discharge Disposition: HOME SELF-CARE
[2020-12-06 14:47] VITALS: BP 132/60; PULSE 65
[2020-12-06 17:31] LABS: Glucose,Whole Blood 197 mg/dL (75-99)
== END 2020-12-06 18:02 | disposition home health service (06) | DRG 291 ==
LOC: EC 14:53 → 3SCARD 17:49
PROVIDERS: ADMIT Internal Medicine; ATTEND Internal Medicine
DX: I13.0 Hypertensive heart and chronic kidney disease with heart failure and stage 1 through stage 4 chronic kidney disease, or unspecified chronic kidney disease (principal); I50.33 Acute on chronic diastolic (congestive) heart failure; J96.21 Acute and chronic respiratory failure with hypoxia; N17.9 Acute kidney failure, unspecified; E87.1 Hypo-osmolality and hyponatremia; N18.4 Chronic kidney disease, stage 4 (severe); N39.0 Urinary tract infection, site not specified; J44.1 Chronic obstructive pulmonary disease with (acute) exacerbation; I27.20 Pulmonary hypertension, unspecified; D63.1 Anemia in chronic kidney disease; I42.9 Cardiomyopathy, unspecified; E11.22 Type 2 diabetes mellitus with diabetic chronic kidney disease; Z99.81 Dependence on supplemental oxygen; E11.65 Type 2 diabetes mellitus with hyperglycemia; Z79.4 Long term (current) use of insulin; Z20.822 Contact with and (suspected) exposure to COVID-19; E89.0 Postprocedural hypothyroidism; E78.5 Hyperlipidemia, unspecified; E87.5 Hyperkalemia; F32.9 Major depressive disorder, single episode, unspecified; G47.33 Obstructive sleep apnea (adult) (pediatric); I25.10 Atherosclerotic heart disease of native coronary artery without angina pectoris; I34.0 Nonrheumatic mitral (valve) insufficiency; B96.89 Other specified bacterial agents as the cause of diseases classified elsewhere; T38.0X5A Adverse effect of glucocorticoids and synthetic analogues, initial encounter; F17.210 Nicotine dependence, cigarettes, uncomplicated; Z71.6 Tobacco abuse counseling; E66.9 Obesity, unspecified; Z68.32 Body mass index [BMI] 32.0-32.9, adult; Z79.82 Long term (current) use of aspirin; Z79.02 Long term (current) use of antithrombotics/antiplatelets; Z79.899 Other long term (current) drug therapy; Z95.1 Presence of aortocoronary bypass graft; Z95.0 Presence of cardiac pacemaker; Z98.84 Bariatric surgery status; Z90.710 Acquired absence of both cervix and uterus; Z90.49 Acquired absence of other specified parts of digestive tract; Z87.19 Personal history of other diseases of the digestive system; Z87.42 Personal history of other diseases of the female genital tract; Z98.42 Cataract extraction status, left eye; Z87.39 Personal history of other diseases of the musculoskeletal system and connective tissue; Z86.19 Personal history of other infectious and parasitic diseases; Z86.018 Personal history of other benign neoplasm; Z98.890 Other specified postprocedural states; Z71.3 Dietary counseling and surveillance; Z88.2 Allergy status to sulfonamides; Z82.49 Family history of ischemic heart disease and other diseases of the circulatory system; Z80.8 Family history of malignant neoplasm of other organs or systems
CPT/HCPCS: 36415; 71045; 71046; 80048; 80053; 81001; 82607; 82746; 83540; 83550; 83605; 83880; 84484; 85025; 85610; 85730; 87077; 87086; 87186; 87635; 93005; 93306; 94640; 94760; 96365; 99285

== ENCOUNTER → 2021-01-30 | Outpatient (CLI) | payer MEDICARE, BC ==
[2021-01-30 15:43] VITALS: BP 150/74; PULSE 73; TEMP 98.3; BMI 31.8
--- NOTE | 2021-01-30 17:40 | P.BASOAP ---
Subjective Progress Note Date: 01/30/21 Principal diagnosis: Morbid obesity Patient with history of lap band 18 years ago. Has had increased vomiting recently. Not daily. Usually with solid foods. No real reflux symptoms. Patient has had multiple other health issues recently. Objective - Vital Signs Vital signs: Vital Signs Temp 98.3 F 01/30/21 15:41 Pulse 73 01/30/21 15:41 Resp BP 150/74 01/30/21 15:41 Pulse Ox Intake & Output 01/29/21 01/30/21 01/30/21 18:59 06:59 18:59 Weight 89.358 kg - Exam Abdomen: Soft, nontender, nondistended Assessment/Plan (1) Morbid obesity Narrative/Plan: Patient would like her band emptied at this time. She is considering band removal. Will empty band to see how the patient does. If symptoms persist we'll order esophagram. The patient's lap band port was palpated. The site was aseptically prepped. The Alvarez needle was advanced into the port. A total of 3.2 ml of fluid was removed. Band is now empty. Pressure was held and a sterile dressing was applied. Plan: Date: 01/30/21 Initial Weight: Initial BMI: Current Weight: 89.358 kg Current BMI: 31.8 Type of Surgery: Total Volume in Band: 0 Previous Volume: Volume Removed: 3 Volume Added: Band Size:
== END | disposition home or self-care (01) ==
LOC: BARWHC3 14:05
PROVIDERS: ATTEND Surgery
DX: E66.01 Morbid (severe) obesity due to excess calories (principal); Z68.31 Body mass index [BMI] 31.0-31.9, adult
CPT/HCPCS: 99212

== ENCOUNTER 2021-05-08 14:14 | Inpatient (IN) | payer MEDICARE, BC ==
[2021-05-08] MEDS ORDERED: ASPIRIN 325 MG TAB PO STA (14:47)
[2021-05-08] MEDS ORDERED: FUROSEMIDE 10 MG/ML 4 ML VIAL IV STA (14:47)
[2021-05-08 15:22] LABS: Albumin 3.4 g/dL (3.5-5.0); Calcium 8.4 mg/dL (8.4-10.2); Magnesium 2.2 mg/dL (1.6-2.3); Potassium 4.4 mmol/L (3.5-5.1); Total Bilirubin 0.3 mg/dL (0.2-1.3); Total Protein 5.8 g/dL (6.3-8.2)
[2021-05-08 15:35] LABS: Anisocytosis Slight; HCT 31.2 % (34.0-46.0); Hypochromasia Moderate; INR 1.1 (<1.2); MCH 31.3 pg (25.0-35.0); MCV 97.6 fL (80.0-100.0); Macrocytosis Slight; Mean Platelet Volume 8.9; Partial Thromboplastin Time 22.4 sec (22.0-30.0); Platelet Count 146 k/uL (150-450); Prothrombin Time 11.5 sec (9.0-12.0); RDW 16.1 % (11.5-15.5); WBC 5.2 k/uL (3.8-10.6)
--- NOTE | 2021-05-08 15:46 | XR ---
EXAMINATION TYPE: XR chest 2V DATE OF EXAM: 05/08/2021 COMPARISON: Chest x-ray 12/04/2020 HISTORY: Difficulty breathing, shortness of breath and leg swelling TECHNIQUE: Frontal and lateral views of the chest are obtained. FINDINGS: Patient is post median sternotomy. Generators present in the left pectoral region, there a re leads in the right atrium and ventricle. Post lap band changes are also noted again. The heart is enlarged. Central vascularity and interstitium are increased. There is no evident pneumothorax. Blunt ing the posterior costophrenic angles is noted. Prominent lung volumes suggest underlying COPD. IMPRESSION: Findings suggest congestive heart failure with small basilar effusions. Follow-up is rec ommended.
[2021-05-08 16:26] LABS: Band Neutrophils % 1 %; Lymphocytes # (M) 0.52 k/uL (1.0-4.8); Monocytes # (M) 0.52 k/uL (0-1.0); Neutrophils % (M) 77 %; Nucleated Red Blood Cells 0 /100 WBC (0-0); Total Cells Counted 100
[2021-05-08] MEDS ORDERED: ALBUTEROL NEBULIZED 2.5 MG/3 ML INHALATION PRN (16:55)
--- NOTE | 2021-05-08 17:48 | ED ---
General Adult HPI - General Chief complaint: Shortness of Breath Stated complaint: SOB,Bilateral Leg Swelling Time Seen by Provider: 05/08/21 14:29 Source: patient, family, RN notes reviewed, old records reviewed Mode of arrival: wheelchair Limitations: no limitations - History of Present Illness Initial comments: Patient is an 81-year-old female with past medical history remarkable for heart failure, chronic hypoxic respiratory failure on home 3 L nasal cannula oxygen, diabetes, hypertension, COPD, CK D, CAD with prior bypass surgery, pacemaker ins ertion who presents emergency Department complaining of progressive 2 week history of worsening shortness of breath and fluid accumulation. She has noticed worsening swelling in her bilateral lower extremity is. She does endorse worsening orthopnea but denies paroxysmal nocturnal dyspnea. Denies missing any doses of her water pills. She states she has noticed worsening exertional dyspnea over the last 2 weeks that is progressively getting worse patches on his no change in her urinary output. Denies any chest pain, abdominal pain, nausea, vomiting. Patient voices no acute complaints at this time. She does have a history of heart failure exacerbations and her and her suspect this is occurring cause for symptoms. She denies any fevers, cough. She has no other acute complaint at this time. - Related Data Home Medications Medication Instructions Recorded Confirmed Simvastatin [Zocor] 5 mg PO HS 11/29/17 05/08/21 Aspirin EC [Ecotrin Low Dose] 81 mg PO DAILY 03/09/20 05/08/21 Mirtazapine 15 mg PO DAILY 11/17/20 05/08/21 Albuterol Nebulized [Ventolin 2.5 mg INHALATION RT-QID PRN 11/24/20 05/08/21 Nebulized] Temazepam 30 mg PO HS PRN 11/24/20 05/08/21 Allopurinol [Zyloprim] 100 mg PO DAILY 05/01/21 05/08/21 Ergocalciferol [Vitamin D2 (1250 50,000 unit PO BONDS 05/01/21 05/08/21 Mcg = [id number] Iu)] Insulin Detemir (Levemir) [Levemir] 25 unit SQ HS 05/01/21 05/08/21 Insulin Lispro [humaLOG Kwikpen] See Protocol SQ AC-TID PRN 05/01/21 05/08/21 Sertraline [Zoloft] 50 mg PO DAILY 05/01/21 05/08/21 Torsemide [Demadex] 20 mg PO DAILY 05/01/21 05/08/21 hydrALAZINE HCL [Apresoline] 25 mg PO BID 05/01/21 05/08/21 metOLazone [Zaroxolyn] 5 mg PO MOWEFR 05/01/21 05/08/21 carvediloL [Coreg] 6.25 mg PO BID-W/MEALS 05/08/21 05/08/21 Allergies Allergy/AdvReac Type Severity Reaction Status Date / Time Sulfa (Sulfonamide Allergy Unknown Verified 05/08/21 16:20 Antibiotics) sulfamethoxazole Allergy Unknown Verified 05/08/21 16:20 [From Bactrim] trimethoprim [From Bactrim] Allergy Unknown Verified 05/08/21 16:20 Review of Systems ROS Statement: Those systems with pertinent positive or pertinent negative responses have been documented in the HPI. Review of Systems: CONST: Denies fever EYES: Denies blurry vision ENT: Denies nasal congestion C/V: Denies Chest pain RESP: Endorses dyspnea GI: Denies abdominal pain : Denies dysuria SKIN: Denies rash. MSK: Denies joint pain. NEURO: Denies headache ROS Other: All systems not noted in ROS Statement are negative. Past Medical History Past Medical History: Heart Failure, Diabetes Mellitus, Hypertension, Musculoskeletal Disorder, Sleep Apnea/CPAP/BIPAP, Thyroid Disorder Additional Past Medical History / Comment(s): COPD, CHF with diastolic heart failure, hypertension, chronic kidney disease stage III, coronary artery disease with previous bypass surgery, history of pacemaker insertion 2014, diabetes mellitus, hypertension, obstructive sleep apnea, thyroid nodules, hyperlipidemia, history of smoking in the order of [id number] History of Any Multi-Drug Resistant Organisms: ESBL Date of last positivie culture/infection: 10/18/19 MDRO Source:: ESBL URINE Past Surgical History: Appendectomy, Back Surgery, Bariatric Surgery, Coronary Bypass/CABG, Heart Catheterization, Hysterectomy, Pacemaker Additional Past Surgical History / Comment(s): LAP BAND, CATARACT LEFT EYE, NEUROMA ON FOOT, KNEE ARTHROSCOPY, PACEMAKER ([facility] 04/18/2015) Partial thyroidectomy 2000 Past Anesthesia/Blood Transfusion Reactions: No Reported Reaction Type of Cardiac Device: Permanent Pacemaker Device Placement Date:: 04/18/2015 [facility] Past Psychological History: No Psychological Hx Reported Smoking Status: Former smoker Past Alcohol Use History: None Reported Past Drug Use History: None Reported - Past Family History Son(s) Family Medical History: Cancer Additional Family Medical History / Comment(s): MELANOMA Brother(s) Family Medical History: Cancer Father History Unknown: Yes Family Medical History: Cancer Mother Family Medical History: Coronary Artery Disease (CAD) General Exam - General Exam Comments Initial Comments: General: Appears in no acute distress. HEAD: Normal with no signs of head trauma. EYES: PERRLA, EOMI, conjunctiva normal, no discharge. ENT: Hearing grossly intact, normal oropharynx. RESPIRATORY: Clear breath sounds bilaterally. No wheezes, rales, or rhonchi. C/V: Regular rate and rhythm. S1 and S2 auscultated. Patient has 2+ pitting edema to the bilateral knees and it is symmetrical in bilateral lower x-rays. Peripheral pulses are 2+ intact throughout. ABD: Abd is soft, nontender, nondistended EXT: Normal range of motion, no obvious deformity SKIN: No rashes or lesions observed on exposed skin. NEURO: Alert and oriented 4. Limitations: no limitations Course Vital Signs 05/08/21 05/08/21 05/08/21 14:22 16:26 18:18 Temperature 98.2 F 98.4 F Pulse Rate 60 60 Pulse Rate [ 75 Pulse Oximetery ] Respiratory 22 18 18 Rate Blood Pressure 150/62 151/67 Blood Pressure 144/72 [Left Arm Sitting] O2 Sat by Pulse 89 L 98 95 Oximetry Medical Decision Making - Medical Decision Making Based on patient's presentation and physical exam, I'm concerned for acute heart failure exacerbation. I cannot rule out acute cardiac etiology for symptoms at this time. Therefore we will obtain a cardiac work up including BNP, troponin, EKG, chest x-ray as well as basic laboratory studies. She'll be connected to continuous chronic monitoring while she is in the department. She will be given 40 mg IV Lasix. She also be given an aspirin. Patient was in agreement this plan. Patient is hypoxic on room air and will be placed on a normal nasal cannula oxygen 3 L, for which she has sats within normal limits. Patient's EKG shows no acute ischemic changes. Patient's chest x-ray reveals findings suggestive of congestive heart failure. Patient's lavatory studies are remarkable for a troponin of 0.046, repeat is still pending at this time. BUN/creatinine are elevated in the setting of CK D, and appear to be at her baseline. Patient's BNP is 38,000. Patient is a normocytic anemia with a hemoglobin of 10. Rate of her labs are unremarkable. On reevaluation, I did discuss the patient results for laboratory studies and imaging. I suggested that we admit her to the hospital for her acute heart failure exacerbation. She was in agreement with this plan. She'll receive diuresis while she is here in the department. I spoke with the admitting team under Dr. Arias who was in agreement with the plan. I spoke with cardiology he was in agreement with the plan. He also agrees to hold anticoagulation at this time, we will trend her troponins, this patient has no chest pain and no acute EKG changes. Patient was therefore admitted in serous condition to telemetry bed. - Lab Data Result diagrams: 05/08/21 14:56 05/08/21 14:56 Lab Results 05/08/21 05/08/21 05/08/21 Range/Units 14:56 14:56 14:56 WBC 5.2 (3.8-10.6) k/uL RBC 3.20 L (3.80-5.40) m/uL Hgb 10.0 L (11.4-16.0) gm/dL Hct 31.2 L (34.0-46.0) % MCV 97.6 (80.0-100.0) fL MCH 31.3 (25.0-35.0) pg MCHC 32.0 (31.0-37.0) g/dL RDW 16.1 H (11.5-15.5) % Plt Count 146 L (150-450) k/uL MPV 8.9 Neutrophils % (Manual) 77 % Band Neuts % (Manual) 1 % Lymphocytes % (Manual) 10 % Monocytes % (Manual) 10 % Eosinophils % (Manual) 2 % Neutrophils # (Manual) 4.00 (1.3-7.7) k/uL Lymphocytes # (Manual) 0.52 L (1.0-4.8) k/uL Monocytes # (Manual) 0.52 (0-1.0) k/uL Eosinophils # (Manual) 0.10 (0-0.7) k/uL Nucleated RBCs 0 (0-0) /100 WBC Manual Slide Review Performed Hypochromasia Moderate Anisocytosis Slight Macrocytosis Slight PT 11.5 (9.0-12.0) sec INR 1.1 (<1.2) APTT 22.4 (22.0-30.0) sec Sodium 140 (137-145) mmol/L Potassium 4.4 (3.5-5.1) mmol/L Chloride 104 (98-107) mmol/L Carbon Dioxide 28 (22-30) mmol/L Anion Gap 8 mmol/L BUN 74 H (7-17) mg/dL Creatinine 2.64 H (0.52-1.04) mg/dL Est GFR (CKD-EPI)AfAm 19 (>60 ml/min/1.73 sqM) Est GFR (CKD-EPI)NonAf 16 (>60 ml/min/1.73 sqM) Glucose 223 H (74-99) mg/dL Calcium 8.4 (8.4-10.2) mg/dL Magnesium 2.2 (1.6-2.3) mg/dL Total Bilirubin 0.3 (0.2-1.3) mg/dL AST 37 H (14-36) U/L ALT 36 H (4-34) U/L Alkaline Phosphatase 78 (38-126) U/L Troponin I (0.000-0.034) ng/mL NT-Pro-B Natriuret Pep pg/mL Total Protein 5.8 L (6.3-8.2) g/dL Albumin 3.4 L (3.5-5.0) g/dL 05/08/21 05/08/21 Range/Units 14:56 14:56 WBC (3.8-10.6) k/uL RBC (3.80-5.40) m/uL Hgb (11.4-16.0) gm/dL Hct (34.0-46.0) % MCV (80.0-100.0) fL MCH (25.0-35.0) pg MCHC (31.0-37.0) g/dL RDW (11.5-15.5) % Plt Count (150-450) k/uL MPV Neutrophils % (Manual) % Band Neuts % (Manual) % Lymphocytes % (Manual) % Monocytes % (Manual) % Eosinophils % (Manual) % Neutrophils # (Manual) (1.3-7.7) k/uL Lymphocytes # (Manual) (1.0-4.8) k/uL Monocytes # (Manual) (0-1.0) k/uL Eosinophils # (Manual) (0-0.7) k/uL Nucleated RBCs (0-0) /100 WBC Manual Slide Review Hypochromasia Anisocytosis Macrocytosis PT (9.0-12.0) sec INR (<1.2) APTT (22.0-30.0) sec Sodium (137-145) mmol/L Potassium (3.5-5.1) mmol/L Chloride (98-107) mmol/L Carbon Dioxide (22-30) mmol/L Anion Gap mmol/L BUN (7-17) mg/dL Creatinine (0.52-1.04) mg/dL Est GFR (CKD-EPI)AfAm (>60 ml/min/1.73 sqM) Est GFR (CKD-EPI)NonAf (>60 ml/min/1.73 sqM) Glucose (74-99) mg/dL Calcium (8.4-10.2) mg/dL Magnesium (1.6-2.3) mg/dL Total Bilirubin (0.2-1.3) mg/dL AST (14-36) U/L ALT (4-34) U/L Alkaline Phosphatase (38-126) U/L Troponin I 0.046 H* (0.000-0.034) ng/mL NT-Pro-B Natriuret Pep 37586 pg/mL Total Protein (6.3-8.2) g/dL Albumin (3.5-5.0) g/dL - EKG Data -: EKG Interpreted by Me EKG Comments: 12-lead Electrocardiogram Interpretation Note EKG was reviewed and interpreted by myself. 12-lead ECG performed at 1441 is interpreted by me as revealing AV dual paced rhythm with a prolonged AV conduction at a rate of 62 beats per minute. Left axis deviation. AL interval is 210 ms, QRS duration is 200 ms, QTc is 5 and 25 ms.. There were no ST or T wave abnormalities to suggest myocardial ischemia or injury. R wave progression across the precordium was satisfactory. By my interpretation this EKG is non- diagnostic for acute ischemia. On comparison to prior EKGs, this EKG is unchanged. Disposition Clinical Impression: CHF exacerbation, Elevated troponin, Hypoxia, CKD (chronic kidney disease), Chronic respiratory failure with hypoxia, Normocytic anemia Disposition: ADMITTED IP TO THIS HOSP Condition: Serious
[2021-05-08 17:52] LABS: Glucose,Whole Blood 139 mg/dL (75-99)
[2021-05-08] MEDS: INSULIN ASPART (NovoLOG) 100 UNIT/ML VIAL SQ SCH (17:54)
[2021-05-08] MEDS: FUROSEMIDE 10 MG/ML 4 ML VIAL IV SCH ×2 (19:14→21:32)
[2021-05-08] MEDS: carvediloL 6.25 MG TAB PO SCH (19:14)
[2021-05-08 21:23] LABS: Glucose,Whole Blood 148 mg/dL (75-99)
[2021-05-08] MEDS: INSULIN DETEMIR (LEVEMIR) 100 UNIT/ML SYR SQ SCH (21:32)
[2021-05-08] MEDS: hydrALAZINE HCL 25 MG TAB PO SCH (21:32)
[2021-05-08] MEDS: ATORVASTATIN 10 MG TAB PO SCH (21:32)
[2021-05-08] MEDS ORDERED: ONDANSETRON 4 MG/2 ML VIAL IVP PRN (21:39)
[2021-05-08] MEDS: TEMAZEPAM 15 MG CAP PO PRN (23:39)
[2021-05-09 06:10] LABS: Glucose,Whole Blood 164 mg/dL (75-99)
[2021-05-09] MEDS: INSULIN ASPART (NovoLOG) 100 UNIT/ML VIAL SQ SCH ×3 (06:30→16:36)
[2021-05-09] MEDS: carvediloL 6.25 MG TAB PO SCH ×2 (06:33→16:35)
[2021-05-09] MEDS: hydrALAZINE HCL 25 MG TAB PO SCH ×2 (08:17→20:12)
[2021-05-09] MEDS: MIRTAZAPINE 15 MG TAB PO SCH (08:17)
[2021-05-09] MEDS: metOLazone 5 MG TAB PO SCH (08:17)
[2021-05-09] MEDS: ASPIRIN 81 MG PO SCH (08:17)
[2021-05-09] MEDS: FUROSEMIDE 10 MG/ML 4 ML VIAL IV SCH ×2 (08:17→16:35)
[2021-05-09] MEDS: allopurinoL 100 MG TAB PO SCH (08:17)
--- NOTE | 2021-05-09 08:56 | P.CRDCN ---
History of Present Illness Consult date: 05/09/21 History of present illness: HISTORY OF PRESENT ILLNESS: This is a 81 year old female with a past medical history significant for congestive heart failure, chronic kidney disease, hypertension, hyperlipidemia, diabetes mellitus, coronary artery disease with previous CABG, and pacemaker insertion. Patient follows in the office with Dr. Cooper. We have been asked to see the patient in consultation for congestive heart failure. Patient examined at the bedside. Patient states she has had increased lower extremity edema for the past 3-4 days. She reports being compliant with her medications. She denies having increased shortness of breath. She denies chest pain or pressure. Patient states she does not weigh herself at home regularly. She reports compliance with a low sodium diet. The patient was found to be in congestive heart failure upon presentation to the emergency room. She was started on IV Lasix 40 mg every 8 hours. EKG reveals AV dual paced rhythm Chest xray findings suggestive of congestive heart failure with small basilar effusions. Laboratory data: WBC 5.2. Hemoglobin 10.0. Platelet count 146. Sodium 140. Potassium 4.4. BUN 74. Creatinine 2.64. Troponin 0.046. 0.057. 0.078. ProBNP 38,300. Current home cardiac medications include Zaroxolyn 5 mg Friday, simvastatin 5 mg daily, Demadex 20 mg daily, hydralazine 25 mg twice a day, carvedilol 6.25 mg twice a day, and aspirin 81 mg daily Most recent echocardiogram obtained in January 2021 reveals ejection fraction 45- 50%. Mild tricuspid regurgitation. Severe mitral regurgitation. Moderate pulmonary hypertension. REVIEW OF SYSTEMS: At the time of my exam: CONSTITUTIONAL: Denies fever or chills. HEENT: Denies blurred vision, vision changes, or eye pain. Denies hemoptysis CARDIOVASCULAR: Denies chest pain. Denies orthopnea. Denies PND. Denies palpitations RESPIRATORY: Denies shortness of breath. GASTROINTESTINAL: Denies abdominal pain. Denies nausea or vomiting. HEMATOLOGIC: Denies bleeding disorders. GENITOURINARY: Denies any blood in urine. SKIN: Denies pruitis. Denies rash. PHYSICAL EXAM: VITAL SIGNS: Reviewed. GENERAL: Well-developed in no acute distress. HEENT: Head is normocephalic. Pupils are equal, round. Sclerae anicteric. Mucous membranes of the mouth are moist. Neck supple. No JVD or thyromegaly LUNGS: Respirations even and unlabored. Lungs diminished with bibasilar rales HEART: Regular rate and rhythm. S1 and S2 heard. Systolic murmur ABDOMEN: Soft. Nondistended. Nontender. EXTREMITIES: Normal range of motion. No clubbing or cyanosis. Peripheral pulses intact. 2+ bilateral lower extremity edema NEUROLOGIC: Awake and alert. Oriented x 3. ASSESSMENT: Acute exacerbation of chronic diastolic heart failure, ejection fraction 45-50% Chronic kidney disease Abnormal troponins, secondary to chronic kidney disease, not suggestive of acute coronary syndrome Hypertension Hyperlipidemia Coronary artery disease with previous CABG History of pacemaker insertion PLAN: An acute coronary event has been ruled out Continue IV Lasix 40 mg every 8 hours Monitor kidney function Daily weights Accurate I&O Obtain 2-D echo to assess cardiac structure and function Resume additional home cardiac medications Further recommendations pending patient's course Nurse practitioner note has been reviewed by physician. Signing provider agrees with the documented findings, assessment, and plan of care. Past Medical History Past Medical History: Heart Failure, Diabetes Mellitus, Hypertension, Musculoskeletal Disorder, Sleep Apnea/CPAP/BIPAP, Thyroid Disorder Additional Past Medical History / Comment(s): COPD, CHF with diastolic heart failure, hypertension, chronic kidney disease stage III, coronary artery disease with previous bypass surgery, history of pacemaker insertion 2014, diabetes mellitus, hypertension, obstructive sleep apnea, thyroid nodules, hyperlipidemia, history of smoking in the order of [id number] History of Any Multi-Drug Resistant Organisms: ESBL Date of last positivie culture/infection: 10/18/19 MDRO Source:: ESBL URINE Past Surgical History: Appendectomy, Back Surgery, Bariatric Surgery, Coronary Bypass/CABG, Heart Catheterization, Hysterectomy, Pacemaker Additional Past Surgical History / Comment(s): LAP BAND, CATARACT LEFT EYE, NEUROMA ON FOOT, KNEE ARTHROSCOPY, PACEMAKER ([facility] 04/18/2015) Partial thyroidectomy 1999 Past Anesthesia/Blood Transfusion Reactions: No Reported Reaction Type of Cardiac Device: Permanent Pacemaker Device Placement Date:: 04/18/2015 [facility] Past Psychological History: No Psychological Hx Reported Smoking Status: Former smoker Past Alcohol Use History: None Reported Past Drug Use History: None Reported - Past Family History Son(s) Family Medical History: Cancer Additional Family Medical History / Comment(s): MELANOMA Brother(s) Family Medical History: Cancer Father History Unknown: Yes Family Medical History: Cancer Mother Family Medical History: Coronary Artery Disease (CAD) Medications and Allergies Home Medications Medication Instructions Recorded Confirmed Type Simvastatin [Zocor] 5 mg PO HS 11/29/17 05/08/21 History Aspirin EC [Ecotrin Low Dose] 81 mg PO DAILY 03/09/20 05/08/21 History Mirtazapine 15 mg PO DAILY 11/17/20 05/08/21 History Albuterol Nebulized [Ventolin 2.5 mg INHALATION RT-QID PRN 11/24/20 05/08/21 History Nebulized] Temazepam 30 mg PO HS PRN 11/24/20 05/08/21 History Allopurinol [Zyloprim] 100 mg PO DAILY 05/01/21 05/08/21 History Ergocalciferol [Vitamin D2 (1250 50,000 unit PO BONDS 05/01/21 05/08/21 History Mcg = 05002 Iu)] Insulin Detemir (Levemir) [Levemir] 25 unit SQ HS 05/01/21 05/08/21 History Insulin Lispro [humaLOG Kwikpen] See Protocol SQ AC-TID PRN 05/01/21 05/08/21 History Sertraline [Zoloft] 50 mg PO DAILY 05/01/21 05/08/21 History Torsemide [Demadex] 20 mg PO DAILY 05/01/21 05/08/21 History hydrALAZINE HCL [Apresoline] 25 mg PO BID 05/01/21 05/08/21 History metOLazone [Zaroxolyn] 5 mg PO MOWEFR 05/01/21 05/08/21 History carvediloL [Coreg] 6.25 mg PO BID-W/MEALS 05/08/21 05/08/21 History Allergies Allergy/AdvReac Type Severity Reaction Status Date / Time Sulfa (Sulfonamide Allergy Unknown Verified 05/08/21 16:20 Antibiotics) sulfamethoxazole Allergy Unknown Verified 05/08/21 16:20 [From Bactrim] trimethoprim [From Bactrim] Allergy Unknown Verified 05/08/21 16:20 Physical Exam Vitals: Vital Signs Temp Pulse Pulse Resp BP BP Pulse Ox 05/09/21 08:00 63 18 05/09/21 07:59 98.1 F 63 18 161/73 98 05/09/21 04:00 98.6 F 60 16 146/80 97 05/09/21 00:07 62 18 05/09/21 00:00 98.2 F 62 18 157/76 98 05/08/21 20:00 75 18 05/08/21 18:18 98.4 F 75 18 144/72 95 05/08/21 16:26 60 18 151/67 98 05/08/21 14:22 98.2 F 60 22 150/62 89 L Intake and Output 05/08/21 05/09/21 05/09/21 22:59 06:59 14:59 Output Total 800 Balance -800 Output: Urine 800 Other: Weight 90.718 kg 95 kg Results 05/08/21 14:56 05/08/21 14:56 Cardiac Enzymes 05/08/21 05/08/21 05/08/21 Range/Units 14:56 14:56 18:00 AST 37 H (14-36) U/L Troponin I 0.046 H* 0.057 H* (0.000-0.034) ng/mL 05/08/21 Range/Units 21:19 AST (14-36) U/L Troponin I 0.078 H* (0.000-0.034) ng/mL Coagulation 05/08/21 Range/Units 14:56 PT 11.5 (9.0-12.0) sec APTT 22.4 (22.0-30.0) sec CBC 05/08/21 Range/Units 14:56 WBC 5.2 (3.8-10.6) k/uL RBC 3.20 L (3.80-5.40) m/uL Hgb 10.0 L (11.4-16.0) gm/dL Hct 31.2 L (34.0-46.0) % Plt Count 146 L (150-450) k/uL Comprehensive Metabolic Panel 05/08/21 Range/Units 14:56 Sodium 140 (137-145) mmol/L Potassium 4.4 (3.5-5.1) mmol/L Chloride 104 (98-107) mmol/L Carbon Dioxide 28 (22-30) mmol/L BUN 74 H (7-17) mg/dL Creatinine 2.64 H (0.52-1.04) mg/dL Glucose 223 H (74-99) mg/dL Calcium 8.4 (8.4-10.2) mg/dL AST 37 H (14-36) U/L ALT 36 H (4-34) U/L Alkaline Phosphatase 78 (38-126) U/L Total Protein 5.8 L (6.3-8.2) g/dL Albumin 3.4 L (3.5-5.0) g/dL Current Medications Generic Name Dose Route Start Last Admin Trade Name Freq PRN Reason Stop Dose Admin Albuterol Sulfate 2.5 mg 05/08/21 16:55 Albuterol Nebulized 2.5 Mg/3 Ml INHALATION RT-QID PRN Shortness Of Breath Allopurinol 100 mg 05/09/21 09:00 05/09/21 08:17 Allopurinol 100 Mg Tab PO 100 mg DAILY [facility] Administration Aspirin 81 mg 05/09/21 09:00 05/09/21 08:17 Aspirin 81 Mg PO 81 mg DAILY [facility] Administration Atorvastatin Calcium 10 mg 05/08/21 21:00 05/08/21 21:32 Atorvastatin 10 Mg Tab PO 10 mg HS [facility] Administration Carvedilol 6.25 mg 05/08/21 17:30 05/09/21 06:33 Carvedilol 6.25 Mg Tab PO 6.25 mg BID-W/MEALS [facility] Administration Furosemide 40 mg 05/08/21 17:00 05/09/21 08:17 Furosemide 10 Mg/Ml 4 Ml Vial IV 40 mg Q8H [facility] Administration Hydralazine HCl 25 mg 05/08/21 21:00 05/09/21 08:17 Hydralazine Hcl 25 Mg Tab PO 25 mg BID [facility] Administration Insulin Aspart 0 unit 05/08/21 17:30 05/09/21 06:30 Insulin Aspart (Novolog) 100 Unit/Ml Vial SQ Not Given AC-TID [facility] [place] Protocol Insulin Detemir 25 unit 05/08/21 21:00 05/08/21 21:32 Insulin Detemir (Levemir) 100 Unit/Ml Syr SQ 25 unit HS [facility] Administration Metolazone 5 mg 05/09/21 09:00 05/09/21 08:17 Metolazone 5 Mg Tab PO 5 mg MOWEFR [facility] Administration Mirtazapine 15 mg 05/09/21 09:00 05/09/21 08:17 Mirtazapine 15 Mg Tab PO 15 mg DAILY [facility] Administration Ondansetron HCl 4 mg 05/08/21 21:39 Ondansetron 4 Mg/2 Ml Vial IVP Q6HR PRN Nausea And Vomiting Temazepam 30 mg 05/08/21 22:12 05/08/21 23:39 Temazepam 15 Mg Cap PO 30 mg HS PRN Administration SLEEP Intake and Output 05/08/21 05/09/21 05/09/21 22:59 06:59 14:59 Output Total 800 Balance -800 Output: Urine 800 Other: Weight 90.718 kg 95 kg 05/08/21 14:56 05/08/21 14:56
--- NOTE | 2021-05-09 11:41 | ECHOF ---
Referral Reason:LV function, CHF MEASUREMENTS -------- HEIGHT: 167.6 cm WEIGHT: 94.8 kg BP: 161/73 IVSd: 1.6 cm (0.6 - 1.1) LVIDd: 5.1 cm (3.9 - 5.3) LVPWd: 1.6 cm (0.6 - 1.1) EDV(Teich): 123 ml IVSs: 2.0 cm LVIDs: 3.5 cm LVPWs: 1.9 cm %IVS Thck: 25 % ESV(Teich): 53 ml EF(Teich): 57 % %FS: 30 % SV(Teich): 70 ml LA Diam: 4.4 cm (2.7 - 3.8) RVIDd: 3.5 cm (< 3.3) LALs A4C: 5.6 cm LAAs A4C: 25.7 cm LAESV A-L A4C: 100 ml LAESV MOD A4C: 96 ml LALs A2C: 5.7 cm LAAs A2C: 25.8 cm LAESV A-L A2C: 99 ml LAESV MOD A2C: 92 ml LAESV(A-L): 101 ml LAESV Index (A-L): 49.30 ml/m Ao Diam: 3.3 cm (2.0 - 3.7) AV Cusp: 2.2 cm (1.5 - 2.6) EPSS: 0.8 cm MV E Andres: 1.78 m/s MV DecT: 224 ms MV Dec [place]: 8.0 m/s MV A Andres: 0.71 m/s MV E/A Ratio: 2.49 MV PHT: 65 ms AV Vmax: 1.54 m/s AV maxP.45 mmHg TR Vmax: 3.40 m/s TR maxP.18 mmHg RAP: 5.00 mmHg RVSP: 51.18 mmHg MV EF SLOPE: 38.91 mm/s (70 - 150) MV EXCURSION: 21.87 mm (> 18.000) FINDINGS -------- A-V paced rhythm. This was a technically adequate study. The left ventricular size is normal. There is moderate concentric left ventricular hypertrophy. O verall left ventricular systolic function is low-normal with, an EF between 50 - 55 %. Apical infer ior LV wall motion is hypokinetic. The right ventricle is mildly enlarged. LA is severely dilated >40 ml/m2 The right atrium is normal in size. Interatrial and interventricular septum intact. There is mild aortic valve sclerosis. The mitral valve leaflets are mildly thickened. Mild mitral annular calcification present. Mild-t o-moderate mitral regurgitation is present. Mild tricuspid regurgitation present. There is moderate pulmonary hypertension. The right ventric ular systolic pressure, as measured by Doppler, is 51.18mmHg. Trace/mild (physiologic) pulmonic regurgitation. The aortic root size is normal. Normal inferior vena cava with normal inspiratory collapse consistent with estimated right atrial pre ssure of 5 mmHg. There is no pericardial effusion. CONCLUSIONS -------- 1. The left ventricular size is normal. 2. There is moderate concentric left ventricular hypertrophy. 3. Overall left ventricular systolic function is low-normal with, an EF between 50 - 55 %. 4. Apical inferior LV wall motion is hypokinetic. 5. The right ventricle is mildly enlarged. 6. LA is severely dilated >40 ml/m2 7. There is mild aortic valve sclerosis. 8. The mitral valve leaflets are mildly thickened. 9. Mild mitral annular calcification present. 10. [id number] mitral regurgitation is present. 11. Mild tricuspid regurgitation present. 12. There is moderate pulmonary hypertension. 13. The right ventricular systolic pressure, as measured by Doppler, is 51.18mmHg. 14. Trace/mild (physiologic) pulmonic regurgitation. 15. There is no pericardial effusion. CABLE TELEVISION TECHNICIAN: Rosanne Young RDCS
[2021-05-09 12:23] LABS: Glucose,Whole Blood 276 mg/dL (75-99)
[2021-05-09 12:24] LABS: HCT 34.4 % (34.0-46.0); HGB 10.8 gm/dL (11.4-16.0); Hypochromasia Marked; MCH 31.4 pg (25.0-35.0); MCHC 31.4 g/dL (31.0-37.0); MCV 99.7 fL (80.0-100.0); Macrocytosis Slight; Mean Platelet Volume 8.6; Platelet Count 124 k/uL (150-450); RBC 3.45 m/uL (3.80-5.40); WBC 6.8 k/uL (3.8-10.6)
[2021-05-09 12:37] LABS: Albumin 3.4 g/dL (3.5-5.0); Calcium 8.5 mg/dL (8.4-10.2); Potassium 4.8 mmol/L (3.5-5.1); Total Bilirubin 0.3 mg/dL (0.2-1.3); Total Protein 5.9 g/dL (6.3-8.2)
[2021-05-09 13:19] LABS: Eosinophils # (M) 0.07 k/uL (0-0.7); Lymphocytes # (M) 0.48 k/uL (1.0-4.8); Monocytes # (M) 0.34 k/uL (0-1.0); Neutrophils # (M) 5.92 k/uL (1.3-7.7); Neutrophils % (M) 87 %; Nucleated Red Blood Cells 0 /100 WBC (0-0); Total Cells Counted 100
--- NOTE | 2021-05-09 13:38 | P.HPIM ---
History of Present Illness H&P Date: 05/09/21 Chief Complaint: Shortness of breath and increased edema This is a 81-year-old female patient of Dr. Ward who presented with progressive been worsening shortness of breath and increased edema to lower extremities over the past 2 weeks. Patient has a significant past medical history for chronic hypoxic respiratory failure on 3 L, diabetes mellitus, hypertension, COPD, chronic kidney disease, CAD with coronary artery bypass graft surgery, pacemaker insertion and chronic diastolic congestive heart failure. Chest x-ray completed in ER showing findings suggestive with c ongestive heart failure small basilar effusions follow-up is recommended area patient also elevated troponin 0.078. BNP elevated 38,300. At this time patient has been started on IV Lasix. Cardiology services have been consulted. 2-D echo has been ordered. Patient is currently resting comfortably in bed. Patient reports slight improvement with shortness of breath. Patient complains of shortness of breath with activity. Patient denies chest pain. Patient denies nausea vomiting or diarrhea. Patient denies any urinary burning or frequency Review of Systems Please refer to HPI otherwise unremarkable Past Medical History Past Medical History: Heart Failure, Diabetes Mellitus, Hypertension, Musculoskeletal Disorder, Sleep Apnea/CPAP/BIPAP, Thyroid Disorder Additional Past Medical History / Comment(s): COPD, CHF with diastolic heart failure, hypertension, chronic kidney disease stage III, coronary artery disease with previous bypass surgery, history of pacemaker insertion 2014, diabetes me llitus, hypertension, obstructive sleep apnea, thyroid nodules, hyperlipidemia, history of smoking in the order of [id number] History of Any Multi-Drug Resistant Organisms: ESBL Date of last positivie culture/infection: 10/18/19 MDRO Source:: ESBL URINE Past Surgical History: Appendectomy, Back Surgery, Bariatric Surgery, Coronary Bypass/CABG, Heart Catheterization, Hysterectomy, Pacemaker Additional Past Surgical History / Comment(s): LAP BAND, CATARACT LEFT EYE, BUBBA RUT ON FOOT, KNEE ARTHROSCOPY, PACEMAKER ([employer] 04/18/2015) Partial thyroidectomy 1999 Past Anesthesia/Blood Transfusion Reactions: No Reported Reaction Type of Cardiac Device: Permanent Pacemaker Device Placement Date:: 04/18/2015 [employer] Past Psychological History: No Psychological Hx Reported Smoking Status: Former smoker Past Alcohol Use History: None Reported Past Drug Use History: None Reported - Past Family History Son(s) Family Medical History: Cancer Additional Family Medical History / Comment(s): MELANOMA Brother(s) Family Medical History: Cancer Father History Unknown: Yes Family Medical History: Cancer Mother Family Medical History: Coronary Artery Disease (CAD) Medications and Allergies Home Medications Medication Instructions Recorded Confirmed Type Simvastatin [Zocor] 5 mg PO HS 11/29/17 05/08/21 History Aspirin EC [Ecotrin Low Dose] 81 mg PO DAILY 03/09/20 05/08/21 History Mirtazapine 15 mg PO DAILY 11/17/20 05/08/21 History Albuterol Nebulized [Ventolin 2.5 mg INHALATION RT-QID PRN 11/24/20 05/08/21 History Nebulized] Temazepam 30 mg PO HS PRN 11/24/20 05/08/21 History Allopurinol [Zyloprim] 100 mg PO DAILY 05/01/21 05/08/21 History Ergocalciferol [Vitamin D2 (1250 50,000 unit PO BONDS 05/01/21 05/08/21 History Mcg = [id number] Iu)] Insulin Detemir (Levemir) [Levemir] 25 unit SQ HS 05/01/21 05/08/21 History Insulin Lispro [humaLOG Kwikpen] See Protocol SQ AC-TID PRN 05/01/21 05/08/21 History Sertraline [Zoloft] 50 mg PO DAILY 05/01/21 05/08/21 History Torsemide [Demadex] 20 mg PO DAILY 05/01/21 05/08/21 History hydrALAZINE HCL [Apresoline] 25 mg PO BID 05/01/21 05/08/21 History metOLazone [Zaroxolyn] 5 mg PO MOWEFR 05/01/21 05/08/21 History carvediloL [Coreg] 6.25 mg PO BID-W/MEALS 05/08/21 05/08/21 History Allergies Allergy/AdvReac Type Severity Reaction Status Date / Time Sulfa (Sulfonamide Allergy Unknown Verified 05/08/21 16:20 Antibiotics) sulfamethoxazole Allergy Unknown Verified 05/08/21 16:20 [From Bactrim] trimethoprim [From Bactrim] Allergy Unknown Verified 05/08/21 16:20 Physical Exam Vitals: Vital Signs Temp Pulse Pulse Resp BP BP Pulse Ox 05/09/21 12:29 98.0 F 60 18 170/64 99 05/09/21 08:00 63 18 05/09/21 07:59 98.1 F 63 18 161/73 98 05/09/21 04:00 98.6 F 60 16 146/80 97 05/09/21 00:07 62 18 05/09/21 00:00 98.2 F 62 18 157/76 98 05/08/21 20:00 75 18 05/08/21 18:18 98.4 F 75 18 144/72 95 05/08/21 16:26 60 18 151/67 98 05/08/21 14:22 98.2 F 60 22 150/62 89 L Intake and Output 05/08/21 05/09/21 05/09/21 22:59 06:59 14:59 Intake Total 125 Output Total 800 Balance -800 125 Intake: Oral 125 Output: Urine 800 Other: Weight 90.718 kg 95 kg 95 kg Head normocephalic Neck supple Lungs diminished bilaterally Heart regular rate and rhythm S1-S2, no rub or gallop Abdomen is soft nontender nondistended positive bowel sounds no hepatosplenomegaly Extremities +2 bilateral lower extremity edema Neuro alert and orientated to 3 Results CBC & Chem 7: 05/09/21 12:03 05/09/21 12:03 Labs: Abnormal Lab Results - Last 24 Hours (Table) 05/08/21 05/08/21 05/08/21 Range/Units 14:56 14:56 14:56 RBC 3.20 L (3.80-5.40) m/uL Hgb 10.0 L (11.4-16.0) gm/dL Hct 31.2 L (34.0-46.0) % RDW 16.1 H (11.5-15.5) % Plt Count 146 L (150-450) k/uL Lymphocytes # (Manual) 0.52 L (1.0-4.8) k/uL Carbon Dioxide (22-30) mmol/L BUN 74 H (7-17) mg/dL Creatinine 2.64 H (0.52-1.04) mg/dL Glucose 223 H (74-99) mg/dL POC Glucose (mg/dL) (75-99) mg/dL AST 37 H (14-36) U/L ALT 36 H (4-34) U/L Troponin I 0.046 H* (0.000-0.034) ng/mL Total Protein 5.8 L (6.3-8.2) g/dL Albumin 3.4 L (3.5-5.0) g/dL 05/08/21 05/08/21 05/08/21 Range/Units 17:49 18:00 21:19 RBC (3.80-5.40) m/uL Hgb (11.4-16.0) gm/dL Hct (34.0-46.0) % RDW (11.5-15.5) % Plt Count (150-450) k/uL Lymphocytes # (Manual) (1.0-4.8) k/uL Carbon Dioxide (22-30) mmol/L BUN (7-17) mg/dL Creatinine (0.52-1.04) mg/dL Glucose (74-99) mg/dL POC Glucose (mg/dL) 139 H (75-99) mg/dL AST (14-36) U/L ALT (4-34) U/L Troponin I 0.057 H* 0.078 H* (0.000-0.034) ng/mL Total Protein (6.3-8.2) g/dL Albumin (3.5-5.0) g/dL 05/08/21 05/09/21 05/09/21 Range/Units 21:21 06:08 12:03 RBC 3.45 L (3.80-5.40) m/uL Hgb 10.8 L (11.4-16.0) gm/dL Hct (34.0-46.0) % RDW 16.0 H (11.5-15.5) % Plt Count 124 L (150-450) k/uL Lymphocytes # (Manual) 0.48 L (1.0-4.8) k/uL Carbon Dioxide (22-30) mmol/L BUN (7-17) mg/dL Creatinine (0.52-1.04) mg/dL Glucose (74-99) mg/dL POC Glucose (mg/dL) 148 H 164 H (75-99) mg/dL AST (14-36) U/L ALT (4-34) U/L Troponin I (0.000-0.034) ng/mL Total Protein (6.3-8.2) g/dL Albumin (3.5-5.0) g/dL 05/09/21 05/09/21 Range/Units 12:03 12:22 RBC (3.80-5.40) m/uL Hgb (11.4-16.0) gm/dL Hct (34.0-46.0) % RDW (11.5-15.5) % Plt Count (150-450) k/uL Lymphocytes # (Manual) (1.0-4.8) k/uL Carbon Dioxide 31 H (22-30) mmol/L BUN 82 H (7-17) mg/dL Creatinine 2.70 H (0.52-1.04) mg/dL Glucose 250 H (74-99) mg/dL POC Glucose (mg/dL) 276 H (75-99) mg/dL AST (14-36) U/L ALT (4-34) U/L Troponin I (0.000-0.034) ng/mL Total Protein 5.9 L (6.3-8.2) g/dL Albumin 3.4 L (3.5-5.0) g/dL Thrombosis Risk Factor Assmnt - Choose All That Apply Each Factor Represents 1 point: Obesity (BMI >25), Swollen legs (current) Other Risk Factors: Yes Each Risk Factor Represents 3 Points: Age 75 years or older Thrombosis Risk Factor Assessment Total Risk Factor Score: 5 Thrombosis Risk Factor Assessment Level: High Risk Assessment and Plan Assessment: 1. Acute on chronic diastolic congestive heart failure 2. elevated troponin 3. Acute on chronic kidney disease 4. History of diabetes mellitus 5. History of hyperlipidemia 6. History of essential hypertension 7. History of coronary artery disease 8. History of cardiac arrhythmia with history of AICD and pacemaker placement 9. History of COPD 10. History of ongoing nicotine dependence DVT prophylaxis Lovenox. GI prophylaxis Protonix Cardiology and nephrology service is consulted Maintained on IV Lasix Repeat labs ordered for a.m. Time with Patient: Greater than 30 (Greater than 60% of the total time spent in counseling and coordination of care)
[2021-05-09 16:24] LABS: Glucose,Whole Blood 246 mg/dL (75-99)
[2021-05-09 20:01] LABS: Glucose,Whole Blood 356 mg/dL (75-99)
[2021-05-09] MEDS: INSULIN DETEMIR (LEVEMIR) 100 UNIT/ML SYR SQ SCH (20:12)
[2021-05-09] MEDS: ATORVASTATIN 10 MG TAB PO SCH (20:12)
[2021-05-10] MEDS: TEMAZEPAM 15 MG CAP PO PRN ×2 (00:04→20:30)
[2021-05-10 06:03] LABS: Glucose,Whole Blood 171 mg/dL (75-99)
[2021-05-10] MEDS: PANTOPRAZOLE 40 MG TABLET PO SCH (06:54)
[2021-05-10] MEDS: INSULIN ASPART (NovoLOG) 100 UNIT/ML VIAL SQ SCH ×3 (06:54→16:54)
[2021-05-10] MEDS: carvediloL 6.25 MG TAB PO SCH ×2 (06:54→16:54)
[2021-05-10 08:00] LABS: Calcium 8.3 mg/dL (8.4-10.2); Potassium 4.1 mmol/L (3.5-5.1); Total Bilirubin 0.4 mg/dL (0.2-1.3); Total Protein 5.4 g/dL (6.3-8.2)
[2021-05-10 08:14] LABS: HCT 30.9 % (34.0-46.0); HGB 9.9 gm/dL (11.4-16.0); Hypochromasia Slight; MCH 31.4 pg (25.0-35.0); MCHC 32.1 g/dL (31.0-37.0); Macrocytosis Slight; Platelet Count 139 k/uL (150-450); RBC 3.15 m/uL (3.80-5.40); RDW 15.9 % (11.5-15.5); WBC 5.4 k/uL (3.8-10.6)
[2021-05-10] MEDS ORDERED: ENOXAPARIN 40 MG/0.4 ML SYRINGE SQ SCH (09:00)
[2021-05-10] MEDS: hydrALAZINE HCL 25 MG TAB PO SCH ×2 (09:41→20:22)
[2021-05-10] MEDS: ASPIRIN 81 MG PO SCH (09:41)
[2021-05-10] MEDS: allopurinoL 100 MG TAB PO SCH (09:41)
[2021-05-10] MEDS: FUROSEMIDE 10 MG/ML 4 ML VIAL IV SCH ×3 (09:41→20:23)
[2021-05-10] MEDS: MIRTAZAPINE 15 MG TAB PO SCH (09:41)
--- NOTE | 2021-05-10 10:00 | P.PN ---
Subjective Progress Note Date: 05/10/21 Elza Avery is a 81-year-old female patient of Dr. Ward who presented with progressive been worsening shortness of breath and increased edema to lower extremities over the past 2 weeks. Patient has a significant past medical history for chronic hypoxic respiratory failure on 3 L, diabetes mellitus, hy pertension, COPD, chronic kidney disease, CAD with coronary artery bypass graft surgery, pacemaker insertion and chronic diastolic congestive heart failure. Chest x-ray completed in ER showing findings suggestive with congestive heart failure small basilar effusions follow-up is recommended area patient also elevated troponin 0.078. BNP elevated 38,300. At this time patient has been started on IV Lasix. Cardiology services have been consulted. 2-D echo has been ordered. Patient is currently resting comfortably in bed. Patient reports slight improvement with shortness of breath. Patient complains of shortness of breath with activity. Patient denies chest pain. Patient denies nausea vomiting or diarrhea. Patient denies any urinary burning or frequency On 05/10/2021 Patient was seen and examined on the medical floor, she is alert and oriented x 3 in no distress, she is still complaining of shortness of breath otherwise she denies any complaints there is no fever or chills no headache or dizziness no chest pain no palpitation no cough no nausea or vomiting no abdominal pain no diarrhea no blood in the stools no burning with urination no frequency or urgency and no hematuria, there is no weakness or numbness in any of the extremities no change in vision speech or gait. Objective - Vital Signs Vital signs: Vital Signs Temp 98.3 F 05/10/21 08:03 Pulse 60 05/10/21 08:03 Resp 18 05/10/21 08:03 BP 143/65 05/10/21 08:03 Pulse Ox 97 05/10/21 08:03 Intake & Output 05/09/21 05/10/21 05/10/21 18:59 06:59 18:59 Intake Total 599 240 Output Total 900 900 Balance -301 -900 240 Weight 95 kg 97 kg Intake: Oral 599 240 Output: Urine 900 900 Other: Voiding Method External Catheter # Voids 2 - Exam In general patient is alert and oriented x 3 in no distress HEENT head normocephalic and atraumatic Neck is supple no JVD no goiter no lymphadenopathy no carotid bruit Chest examination reveals a scattered crackles in both bases no wheezing Cardiac exam reveals regular heart sounds S1 and S2 no gallops no murmurs Abdomen is soft nontender no organomegaly with normal bowel sounds Extremity exam reveals 1+ edema no cyanosis or clubbing Neurological examination reveals no gross focal deficits - Labs CBC & Chem 7: 05/10/21 07:11 05/10/21 07:11 Labs: Abnormal Lab Results - Last 24 Hours (Table) 05/09/21 05/09/21 05/09/21 Range/Units 12:03 12:03 12:22 RBC 3.45 L (3.80-5.40) m/uL Hgb 10.8 L (11.4-16.0) gm/dL Hct (34.0-46.0) % RDW 16.0 H (11.5-15.5) % Plt Count 124 L (150-450) k/uL Lymphocytes # (Manual) 0.48 L (1.0-4.8) k/uL Carbon Dioxide 31 H (22-30) mmol/L BUN 82 H (7-17) mg/dL Creatinine 2.70 H (0.52-1.04) mg/dL Glucose 250 H (74-99) mg/dL POC Glucose (mg/dL) 276 H (75-99) mg/dL Calcium (8.4-10.2) mg/dL Total Protein 5.9 L (6.3-8.2) g/dL Albumin 3.4 L (3.5-5.0) g/dL 05/09/21 05/09/21 05/10/21 Range/Units 16:19 20:00 06:02 RBC (3.80-5.40) m/uL Hgb (11.4-16.0) gm/dL Hct (34.0-46.0) % RDW (11.5-15.5) % Plt Count (150-450) k/uL Lymphocytes # (Manual) (1.0-4.8) k/uL Carbon Dioxide (22-30) mmol/L BUN (7-17) mg/dL Creatinine (0.52-1.04) mg/dL Glucose (74-99) mg/dL POC Glucose (mg/dL) 246 H 356 H 171 H (75-99) mg/dL Calcium (8.4-10.2) mg/dL Total Protein (6.3-8.2) g/dL Albumin (3.5-5.0) g/dL 05/10/21 05/10/21 Range/Units 07:11 07:11 RBC 3.15 L (3.80-5.40) m/uL Hgb 9.9 L (11.4-16.0) gm/dL Hct 30.9 L (34.0-46.0) % RDW 15.9 H (11.5-15.5) % Plt Count 139 L (150-450) k/uL Lymphocytes # (Manual) (1.0-4.8) k/uL Carbon Dioxide (22-30) mmol/L BUN 86 H (7-17) mg/dL Creatinine 2.66 H (0.52-1.04) mg/dL Glucose 132 H (74-99) mg/dL POC Glucose (mg/dL) (75-99) mg/dL Calcium 8.3 L (8.4-10.2) mg/dL Total Protein 5.4 L (6.3-8.2) g/dL Albumin 3.0 L (3.5-5.0) g/dL Assessment and Plan Assessment: 1. Acute on chronic diastolic congestive heart failure 2. elevated troponin 3. Acute on chronic kidney disease 4. History of diabetes mellitus 5. History of hyperlipidemia 6. History of essential hypertension 7. History of coronary artery disease 8. History of cardiac arrhythmia with history of AICD and pacemaker placement 9. History of COPD 10. History of ongoing nicotine dependence DVT prophylaxis Lovenox. GI prophylaxis Protonix Cardiology and nephrology service is consulted Maintained on IV Lasix Repeat labs ordered for a.m.
[2021-05-10 11:40] LABS: Glucose,Whole Blood 209 mg/dL (75-99)
[2021-05-10 11:54] LABS: Eosinophils # (M) 0.22 k/uL (0-0.7); Monocytes # (M) 0.54 k/uL (0-1.0); Neutrophils # (M) 3.94 k/uL (1.3-7.7); Neutrophils % (M) 73 %; Nucleated Red Blood Cells 0 /100 WBC (0-0); Total Cells Counted 100
--- NOTE | 2021-05-10 12:31 | CONS ---
CONSULTATION REASON FOR CONSULTATION: Renal failure. HISTORY OF PRESENT ILLNESS: Patient is an 81-year-old female with CKD stage 4 secondary to nephrosclerosis and diabetic kidney disease. The patient also has underlying diastolic heart failure. She was admitted to the hospital with complaints of increasing shortness of breath and increased edema over the past 1-2 weeks prior to admission. It appears that there was some confusion with her dose of torsemide at home, and the patient had decreased the dose recently. She denies increased intake of jmun-lktciv-cdzhuvufqb foods. There are no complaints of chest pain, nausea, vomiting, fever, chills or cough. Currently patient is maintained on IV Lasix 40 mg q.8 hours. She states she is feeling better. She has had good urine output; for 24 hours we had about 1.8 L. PAST MEDICAL HISTORY: CKD stage 4, hypertension, CHF, diastolic heart failure, type 2 diabetes, hypothyroidism, obstructive sleep apnea, coronary artery disease, hyperlipidemia, thyroid nodules. PAST SURGICAL HISTORY: Appendectomy, back surgery, bariatric surgery, coronary artery bypass surgery, lap band procedure, cataract, left eye, hysterectomy, pacemaker placement, knee arthroscopy, partial thyroidectomy. SOCIAL HISTORY: The patient is a former smoker. No history of drug abuse or alcohol abuse. MEDICATIONS: Medications prior to admission included Zocor, aspirin, mirtazapine, Zyloprim, temazepam, insulin, vitamin D, Zoloft, Demadex, hydralazine, Zaroxolyn, Coreg. ALLERGIES: ALLERGIES include SULFA. REVIEW OF SYSTEMS: As per HPI. Other systems negative. PHYSICAL EXAMINATION: Patient is comfortable, awake, alert and oriented x3, not in any acute distress. Blood pressure is 143/65, heart rate 60 per minute. She is afebrile. EXAMINATION OF THE HEART: S1 and S2. EXAMINATION OF LUNGS: Bilateral breath sounds are heard. ABDOMEN: Soft, nontender. LOWER EXTREMITIES: Examination of lower extremities shows edema 1+ bilaterally. LEGAL RECOVERY SPECIALIST EXAM: Grossly intact. LABS: Labs show sodium 137, potassium 4.1, chloride 100. CO2 is 30, BUN 86, creatinine 2.6, hemoglobin 9.9 g/dL. ASSESSMENT: 1. Chronic kidney disease NKF stage 4 secondary to nephrosclerosis, diabetic kidney disease. Renal function at baseline. 2. Volume overload, currently improved. The patient's Lasix is being decreased to q.12 hours from q.8 hours. 3. Diastolic heart failure, acute on top of chronic, currently improving. 4. Coronary artery disease. 5. Anemia of chronic disease. PLAN: Check iron profile. Add Aranesp. Continue with Zaroxolyn. Continue with IV Lasix; okay to decrease to q.12 hours. Repeat labs. Monitor urine output. Check daily weights. Possible discharge tomorrow. Thank you for this consultation. Will continue to follow the patient with you during her hospitalization. MMODL / SPENCERN: [id number] /
--- NOTE | 2021-05-10 13:13 | P.PN ---
Subjective Progress Note Date: 05/10/21 HISTORY OF PRESENT ILLNESS: This is a 81 year old female with a past medical history significant for congestive heart failure, chronic kidney disease, hypertension, hyperlipidemia, diabetes mellitus, coronary artery disease with previous CABG, and pacemaker insertion. Patient follows in the office with Dr. Cooper. We have been asked to see the patient in consultation for congestive heart failure. Patient examined at the bedside. Patient states she has had increased lower extremity edema for the past 3-4 days. She reports being compliant with her medications. She denies having increased shortness of breath. She denies chest pain or pressure. Patient states she does not weigh herself at home regularly. She reports compliance with a low sodium diet. The patient was found to be in congestive heart failure upon presentation to the emergency room. She was started on IV Lasix 40 mg every 8 hours. EKG reveals AV dual paced rhythm Chest xray findings suggestive of congestive heart failure with small basilar effusions. Laboratory data: WBC 5.2. Hemoglobin 10.0. Platelet count 146. Sodium 140. Potassium 4.4. BUN 74. Creatinine 2.64. Troponin 0.046. 0.057. 0.078. ProBNP 38,300. Current home cardiac medications include Zaroxolyn 5 mg Friday, simvastatin 5 mg daily, Demadex 20 mg daily, hydralazine 25 mg twice a day, carvedilol 6.25 mg twice a day, and aspirin 81 mg daily Most recent echocardiogram obtained in January 2021 reveals ejection fraction 45- 50%. Mild tricuspid regurgitation. Severe mitral regurgitation. Moderate pulmonary hypertension. 05/10/2021 Patient examined this morning at the bedside. Patient denies chest pain or pressure. She reports minimal shortness of breath. She remains on nasal cannula. She is on IV Lasix 40 mg every 8 hours. Creatinine stable today at 2.66. Fluid balance over the last 4 hours is -1200 mL. Echocardiogram completed revealed ejection fraction 50-55% PHYSICAL EXAM: VITAL SIGNS: Reviewed. GENERAL: Well-developed in no acute distress. HEENT: Head is normocephalic. Pupils are equal, round. Sclerae anicteric. Mucous membranes of the mouth are moist. Neck supple. No JVD or thyromegaly LUNGS: Respirations even and unlabored. Lungs diminished with bibasilar rales HEART: Regular rate and rhythm. S1 and S2 heard. Systolic murmur ABDOMEN: Soft. Nondistended. Nontender. EXTREMITIES: Normal range of motion. No clubbing or cyanosis. Peripheral pulses intact. 1+ bilateral lower extremity edema NEUROLOGIC: Awake and alert. Oriented x 3. ASSESSMENT: Acute exacerbation of chronic diastolic heart failure, ejection fraction 50-55% Chronic kidney disease Abnormal troponins, secondary to chronic kidney disease, not suggestive of acute coronary syndrome Hypertension Hyperlipidemia Coronary artery disease with previous CABG History of pacemaker insertion PLAN: Decrease Lasix to every 12 hours. Possible transition to oral dosing tomorrow Monitor kidney function Daily weights Accurate I&O Further recommendations pending patient's course Nurse practitioner note has been reviewed by physician. Signing provider agrees with the documented findings, assessment, and plan of care. Objective - Vital Signs Vital signs: Vital Signs Temp 98.6 F 05/10/21 12:23 Pulse 60 05/10/21 12:23 Resp 18 05/10/21 12:23 BP 169/70 05/10/21 12:23 Pulse Ox 98 05/10/21 12:23 Intake & Output 05/09/21 05/10/21 05/10/21 18:59 06:59 18:59 Intake Total 599 240 Output Total 900 900 Balance -301 -900 240 Weight 95 kg 97 kg Intake: Oral 599 240 Output: Urine 900 900 Other: Voiding Method External Catheter # Voids 2 - Labs CBC & Chem 7: 05/10/21 07:11 05/10/21 07:11 Labs: Abnormal Lab Results - Last 24 Hours (Table) 05/09/21 05/09/21 05/09/21 Range/Units 12:03 16:19 20:00 RBC (3.80-5.40) m/uL Hgb (11.4-16.0) gm/dL Hct (34.0-46.0) % RDW (11.5-15.5) % Plt Count (150-450) k/uL Lymphocytes # (Manual) 0.48 L (1.0-4.8) k/uL BUN (7-17) mg/dL Creatinine (0.52-1.04) mg/dL Glucose (74-99) mg/dL POC Glucose (mg/dL) 246 H 356 H (75-99) mg/dL Calcium (8.4-10.2) mg/dL Total Protein (6.3-8.2) g/dL Albumin (3.5-5.0) g/dL 05/10/21 05/10/21 05/10/21 Range/Units 06:02 07:11 07:11 RBC 3.15 L (3.80-5.40) m/uL Hgb 9.9 L (11.4-16.0) gm/dL Hct 30.9 L (34.0-46.0) % RDW 15.9 H (11.5-15.5) % Plt Count 139 L (150-450) k/uL Lymphocytes # (Manual) 0.70 L (1.0-4.8) k/uL BUN 86 H (7-17) mg/dL Creatinine 2.66 H (0.52-1.04) mg/dL Glucose 132 H (74-99) mg/dL POC Glucose (mg/dL) 171 H (75-99) mg/dL Calcium 8.3 L (8.4-10.2) mg/dL Total Protein 5.4 L (6.3-8.2) g/dL Albumin 3.0 L (3.5-5.0) g/dL 05/10/21 Range/Units 11:38 RBC (3.80-5.40) m/uL Hgb (11.4-16.0) gm/dL Hct (34.0-46.0) % RDW (11.5-15.5) % Plt Count (150-450) k/uL Lymphocytes # (Manual) (1.0-4.8) k/uL BUN (7-17) mg/dL Creatinine (0.52-1.04) mg/dL Glucose (74-99) mg/dL POC Glucose (mg/dL) 209 H (75-99) mg/dL Calcium (8.4-10.2) mg/dL Total Protein (6.3-8.2) g/dL Albumin (3.5-5.0) g/dL
[2021-05-10] MEDS: DARBEPOETIN ALFA 40 MCG/0.4 ML SYRINGE SQ SCH (14:14)
[2021-05-10 16:49] LABS: Glucose,Whole Blood 173 mg/dL (75-99)
[2021-05-10 19:49] LABS: Glucose,Whole Blood 218 mg/dL (75-99)
[2021-05-10] MEDS: ATORVASTATIN 10 MG TAB PO SCH (20:22)
[2021-05-10] MEDS: INSULIN DETEMIR (LEVEMIR) 100 UNIT/ML SYR SQ SCH (20:23)
[2021-05-11 03:28] LABS: % Iron Saturation 7.58 (12.00-45.00)
[2021-05-11 06:30] LABS: Glucose,Whole Blood 119 mg/dL (75-99)
[2021-05-11] MEDS: INSULIN ASPART (NovoLOG) 100 UNIT/ML VIAL SQ SCH ×3 (06:31→16:58)
[2021-05-11] MEDS: carvediloL 6.25 MG TAB PO SCH ×2 (06:33→16:58)
[2021-05-11] MEDS: PANTOPRAZOLE 40 MG TABLET PO SCH (06:33)
[2021-05-11 08:14] LABS: Anisocytosis Slight; HCT 29.6 % (34.0-46.0); HGB 9.6 gm/dL (11.4-16.0); MCH 31.4 pg (25.0-35.0); MCHC 32.4 g/dL (31.0-37.0); MCV 96.9 fL (80.0-100.0); Macrocytosis Slight; Platelet Count 143 k/uL (150-450); RBC 3.06 m/uL (3.80-5.40); RDW 16.2 % (11.5-15.5)
[2021-05-11 08:25] LABS: Albumin 2.7 g/dL (3.5-5.0); Calcium 8.1 mg/dL (8.4-10.2); Total Bilirubin 0.3 mg/dL (0.2-1.3)
[2021-05-11] MEDS: ENOXAPARIN 30 MG/0.3 ML SYRINGE SQ SCH (09:15)
[2021-05-11] MEDS: ASPIRIN 81 MG PO SCH (09:15)
[2021-05-11] MEDS: FUROSEMIDE 10 MG/ML 4 ML VIAL IV SCH (09:15)
[2021-05-11] MEDS: MIRTAZAPINE 15 MG TAB PO SCH (09:15)
[2021-05-11] MEDS: allopurinoL 100 MG TAB PO SCH (09:15)
[2021-05-11] MEDS: hydrALAZINE HCL 25 MG TAB PO SCH ×2 (09:15→21:58)
[2021-05-11] MEDS: metOLazone 5 MG TAB PO SCH (09:21)
--- NOTE | 2021-05-11 09:53 | P.PN ---
Subjective Progress Note Date: 05/11/21 Elza Avery is a 81-year-old female patient of Dr. Ward who presented with progressive been worsening shortness of breath and increased edema to lower extremities over the past 2 weeks. Patient has a significant past medical history for chronic hypoxic respiratory failure on 3 L, diabetes mellitus, hy pertension, COPD, chronic kidney disease, CAD with coronary artery bypass graft surgery, pacemaker insertion and chronic diastolic congestive heart failure. Chest x-ray completed in ER showing findings suggestive with congestive heart failure small basilar effusions follow-up is recommended area patient also elevated troponin 0.078. BNP elevated 38,300. At this time patient has been started on IV Lasix. Cardiology services have been consulted. 2-D echo has been ordered. Patient is currently resting comfortably in bed. Patient reports slight improvement with shortness of breath. Patient complains of shortness of breath with activity. Patient denies chest pain. Patient denies nausea vomiting or diarrhea. Patient denies any urinary burning or frequency On 05/10/2021 Patient was seen and examined on the medical floor, she is alert and oriented x 3 in no distress, she is still complaining of shortness of breath otherwise she denies any complaints there is no fever or chills no headache or dizziness no chest pain no palpitation no cough no nausea or vomiting no abdominal pain no diarrhea no blood in the stools no burning with urination no frequency or urgency and no hematuria, there is no weakness or numbness in any of the extremities no change in vision speech or gait. On 05/11/2021 patient alert and oriented times 3. Patient is still complaining of some shortness of breath. Patient remains on IV Lasix 40 every 12. Nephrology and cardiology services are consulted. Weight down 97 kg just 96.5. Creatinine slightly increased to 2.89 bun 96. Patient denies chest pain. Patient denies nausea vomiting or diarrhea. Patient denies any urinary burning or frequency Objective - Vital Signs Vital signs: Vital Signs Temp 98.0 F 05/11/21 07:30 Pulse 60 05/11/21 07:30 Resp 18 05/11/21 07:43 BP 152/70 05/11/21 07:30 Pulse Ox 96 05/11/21 07:30 Intake & Output 05/10/21 05/11/21 05/11/21 18:59 06:59 18:59 Intake Total 1207 240 Output Total 1200 700 Balance 7 -700 240 Weight 96.5 kg Intake: Oral 1207 240 Output: Urine 1200 700 Other: Voiding Method External Catheter External Catheter External Catheter - Exam In general patient is alert and oriented x 3 in no distress HEENT head normocephalic and atraumatic Neck is supple no JVD no goiter no lymphadenopathy no carotid bruit Chest examination reveals a scattered crackles in both bases no wheezing Cardiac exam reveals regular heart sounds S1 and S2 no gallops no murmurs Abdomen is soft nontender no organomegaly with normal bowel sounds Extremity exam reveals 1+ edema no cyanosis or clubbing Neurological examination reveals no gross focal deficits - Labs CBC & Chem 7: 05/11/21 07:10 05/11/21 07:10 Labs: Abnormal Lab Results - Last 24 Hours (Table) 05/10/21 05/10/21 05/10/21 Range/Units 07:11 07:11 11:38 RBC (3.80-5.40) m/uL Hgb (11.4-16.0) gm/dL Hct (34.0-46.0) % RDW (11.5-15.5) % Plt Count (150-450) k/uL Lymphocytes # (Manual) 0.70 L (1.0-4.8) k/uL Sodium (137-145) mmol/L Carbon Dioxide (22-30) mmol/L BUN (7-17) mg/dL Creatinine (0.52-1.04) mg/dL Glucose (74-99) mg/dL POC Glucose (mg/dL) 209 H (75-99) mg/dL Calcium (8.4-10.2) mg/dL Iron 21 L (50-170) ug/dL % Saturation 7.58 L (12.00-45.00) Total Protein (6.3-8.2) g/dL Albumin (3.5-5.0) g/dL 05/10/21 05/10/21 05/11/21 Range/Units 16:47 19:47 06:29 RBC (3.80-5.40) m/uL Hgb (11.4-16.0) gm/dL Hct (34.0-46.0) % RDW (11.5-15.5) % Plt Count (150-450) k/uL Lymphocytes # (Manual) (1.0-4.8) k/uL Sodium (137-145) mmol/L Carbon Dioxide (22-30) mmol/L BUN (7-17) mg/dL Creatinine (0.52-1.04) mg/dL Glucose (74-99) mg/dL POC Glucose (mg/dL) 173 H 218 H 119 H (75-99) mg/dL Calcium (8.4-10.2) mg/dL Iron (50-170) ug/dL % Saturation (12.00-45.00) Total Protein (6.3-8.2) g/dL Albumin (3.5-5.0) g/dL 05/11/21 05/11/21 Range/Units 07:10 07:10 RBC 3.06 L (3.80-5.40) m/uL Hgb 9.6 L (11.4-16.0) gm/dL Hct 29.6 L (34.0-46.0) % RDW 16.2 H (11.5-15.5) % Plt Count 143 L (150-450) k/uL Lymphocytes # (Manual) (1.0-4.8) k/uL Sodium 136 L (137-145) mmol/L Carbon Dioxide 32 H (22-30) mmol/L BUN 96 H (7-17) mg/dL Creatinine 2.89 H (0.52-1.04) mg/dL Glucose 108 H (74-99) mg/dL POC Glucose (mg/dL) (75-99) mg/dL Calcium 8.1 L (8.4-10.2) mg/dL Iron (50-170) ug/dL % Saturation (12.00-45.00) Total Protein 5.0 L (6.3-8.2) g/dL Albumin 2.7 L (3.5-5.0) g/dL Assessment and Plan Assessment: 1. Acute on chronic diastolic congestive heart failure 2. elevated troponin 3. Acute on chronic kidney disease 4. History of diabetes mellitus 5. History of hyperlipidemia 6. History of essential hypertension 7. History of coronary artery disease 8. History of cardiac arrhythmia with history of AICD and pacemaker placement 9. History of COPD 10. History of ongoing nicotine dependence DVT prophylaxis Lovenox. GI prophylaxis Protonix Cardiology and nephrology service is consulted Maintained on IV Lasix Repeat labs ordered for a.m.
[2021-05-11 10:07] LABS: Basophils # (M) 0.05 k/uL (0-0.2); Neutrophils # (M) 3.55 k/uL (1.3-7.7); Neutrophils % (M) 71 %; Nucleated Red Blood Cells 0 /100 WBC (0-0); Total Cells Counted 100
--- NOTE | 2021-05-11 10:17 | P.PN ---
Subjective Progress Note Date: 05/11/21 Principal diagnosis: Heart failure with preserved ejection fraction This is a pleasant 81-year-old female patient was admitted to the hospital with acute exacerbation of chronic diastolic heart failure. The ejection fraction was 50-55%. Patient was seen this morning she is feeling better term of shortness of breath and she continues to have lower extremity edema which has been coming down. She denies any symptoms of chest pain or chest discomfort and denies any dizziness or lightheadedness or any presyncope or syncope. I would advise continue the patient IV Lasix for additional 24 hours and follow-up with the patient Objective - Vital Signs Vital signs: Vital Signs Temp 98.0 F 05/11/21 07:30 Pulse 60 05/11/21 07:30 Resp 18 05/11/21 07:43 BP 152/70 05/11/21 07:30 Pulse Ox 96 05/11/21 07:30 Intake & Output 05/10/21 05/11/21 05/11/21 18:59 06:59 18:59 Intake Total 1207 240 Output Total 1200 700 Balance 7 -700 240 Weight 96.5 kg Intake: Oral 1207 240 Output: Urine 1200 700 Other: Voiding Method External Catheter External Catheter External Catheter - Constitutional General appearance: Present: no acute distress - Respiratory Respiratory: bilateral: diminished - Cardiovascular Rhythm: regular Heart sounds: normal: S1, S2 - Labs CBC & Chem 7: 05/11/21 07:10 05/11/21 07:10 Labs: Abnormal Lab Results - Last 24 Hours (Table) 05/10/21 05/10/21 05/10/21 Range/Units 07:11 07:11 11:38 RBC (3.80-5.40) m/uL Hgb (11.4-16.0) gm/dL Hct (34.0-46.0) % RDW (11.5-15.5) % Plt Count (150-450) k/uL Lymphocytes # (Manual) 0.70 L (1.0-4.8) k/uL Sodium (137-145) mmol/L Carbon Dioxide (22-30) mmol/L BUN (7-17) mg/dL Creatinine (0.52-1.04) mg/dL Glucose (74-99) mg/dL POC Glucose (mg/dL) 209 H (75-99) mg/dL Calcium (8.4-10.2) mg/dL Iron 21 L (50-170) ug/dL % Saturation 7.58 L (12.00-45.00) Total Protein (6.3-8.2) g/dL Albumin (3.5-5.0) g/dL 05/10/21 05/10/21 05/11/21 Range/Units 16:47 19:47 06:29 RBC (3.80-5.40) m/uL Hgb (11.4-16.0) gm/dL Hct (34.0-46.0) % RDW (11.5-15.5) % Plt Count (150-450) k/uL Lymphocytes # (Manual) (1.0-4.8) k/uL Sodium (137-145) mmol/L Carbon Dioxide (22-30) mmol/L BUN (7-17) mg/dL Creatinine (0.52-1.04) mg/dL Glucose (74-99) mg/dL POC Glucose (mg/dL) 173 H 218 H 119 H (75-99) mg/dL Calcium (8.4-10.2) mg/dL Iron (50-170) ug/dL % Saturation (12.00-45.00) Total Protein (6.3-8.2) g/dL Albumin (3.5-5.0) g/dL 05/11/21 05/11/21 Range/Units 07:10 07:10 RBC 3.06 L (3.80-5.40) m/uL Hgb 9.6 L (11.4-16.0) gm/dL Hct 29.6 L (34.0-46.0) % RDW 16.2 H (11.5-15.5) % Plt Count 143 L (150-450) k/uL Lymphocytes # (Manual) (1.0-4.8) k/uL Sodium 136 L (137-145) mmol/L Carbon Dioxide 32 H (22-30) mmol/L BUN 96 H (7-17) mg/dL Creatinine 2.89 H (0.52-1.04) mg/dL Glucose 108 H (74-99) mg/dL POC Glucose (mg/dL) (75-99) mg/dL Calcium 8.1 L (8.4-10.2) mg/dL Iron (50-170) ug/dL % Saturation (12.00-45.00) Total Protein 5.0 L (6.3-8.2) g/dL Albumin 2.7 L (3.5-5.0) g/dL Assessment and Plan Assessment: Assessment #1 acute exacerbation of heart failure with preserved ejection fraction #2 chronic kidney disease #3 hypertension #4 dyslipidemia #5 coronary artery disease Plan #1 continue the current medical regimen #2 continue IV Lasix for additional 24 hours #3 follow-up with the patient
[2021-05-11] MEDS ORDERED: FUROSEMIDE 10 MG/ML 4 ML VIAL IV STA (10:24)
[2021-05-11 11:26] LABS: Glucose,Whole Blood 255 mg/dL (75-99)
[2021-05-11] MEDS: SODIUM FERRIC GLUCONAT-SUCROSE 125 MG in SODIUM CHLORIDE 0.9% 100 ML IVPB SCH (11:45)
--- NOTE | 2021-05-11 13:46 | PN ---
PROGRESS NOTE Patient is seen for followup for chronic kidney disease. She was admitted with acute on top of chronic diastolic heart failure and volume overload. The patient is currently being diuresed. Lasix was decreased yesterday to 40 mg IV q.12 hours. However, patient states she is not feeling much better than yesterday. She remains on about 3 L nasal cannula. However, patient does use oxygen at home. She has had 1900 cc of urine output for 24 hours. PHYSICAL EXAMINATION: On examination today, blood pressure 152/70, heart rate 60 per minute, she is afebrile. Examination of the heart S1, S2. Examination of the lungs, bilateral breath sounds are heard. Abdomen is soft, nontender. Examination of lower extremities shows chronic edema bilaterally with chronic skin changes. [employer] exam grossly intact. LAB: Show sodium 136, potassium 4.0, BUN 96, creatinine 2.89, hemoglobin 9.6. ASSESSMENT: 1. Chronic kidney disease associated with diabetic kidney disease and nephrosclerosis with an element of acute kidney injury, mostly cardiorenal. 2. Volume overload, acute on top of chronic diastolic heart failure. Increase Lasix to 60 mg q.12 hours today. Possible discharge tomorrow. 3. Anemia of chronic disease with significant iron deficiency noted. I will add IV iron. 4. Chronic kidney disease, mineral bone disorder. 5. Coronary artery disease. PLAN: Increase Lasix. Possible discharge tomorrow. Add IV iron. MMODL / IJN: [id number] /
[2021-05-11 16:38] LABS: Glucose,Whole Blood 188 mg/dL (75-99)
[2021-05-11 20:05] LABS: Glucose,Whole Blood 259 mg/dL (75-99)
[2021-05-11] MEDS: ATORVASTATIN 10 MG TAB PO SCH (21:57)
[2021-05-11] MEDS: FUROSEMIDE 10 MG/ML 10 ML VIAL IV SCH (21:58)
[2021-05-11] MEDS: INSULIN DETEMIR (LEVEMIR) 100 UNIT/ML SYR SQ SCH (21:58)
[2021-05-11] MEDS: TEMAZEPAM 15 MG CAP PO PRN (23:11)
[2021-05-12 06:02] LABS: Glucose,Whole Blood 167 mg/dL (75-99)
[2021-05-12] MEDS: PANTOPRAZOLE 40 MG TABLET PO SCH (06:24)
[2021-05-12] MEDS: INSULIN ASPART (NovoLOG) 100 UNIT/ML VIAL SQ SCH ×3 (06:24→17:18)
[2021-05-12] MEDS: carvediloL 6.25 MG TAB PO SCH ×2 (06:24→17:18)
[2021-05-12] MEDS: hydrALAZINE HCL 25 MG TAB PO SCH ×2 (08:38→21:11)
[2021-05-12] MEDS: allopurinoL 100 MG TAB PO SCH (08:38)
[2021-05-12] MEDS: ENOXAPARIN 30 MG/0.3 ML SYRINGE SQ SCH (08:38)
[2021-05-12] MEDS: FUROSEMIDE 10 MG/ML 10 ML VIAL IV SCH (08:38)
[2021-05-12] MEDS: ASPIRIN 81 MG PO SCH (08:38)
[2021-05-12] MEDS: MIRTAZAPINE 15 MG TAB PO SCH (08:38)
--- NOTE | 2021-05-12 09:17 | P.PN ---
Subjective Progress Note Date: 05/12/21 Principal diagnosis: Heart failure with preserved ejection fraction This is a pleasant 81-year-old female patient was admitted to the hospital with acute exacerbation of chronic diastolic heart failure. The ejection fraction was 50-55%. The patient was seen this morning. She is feeling overall better. The lower extremities edema has improved significantly and on examination she does have diminished breathing sounds bilaterally only few crackles. The echo showed normal left ventricle systolic function. She denies any symptoms of chest pain or chest discomfort. The Lasix IV has been managed by the nephrology service. The creatinine continues to be stable. Objective - Vital Signs Vital signs: Vital Signs Temp 97.6 F 05/12/21 08:35 Pulse 60 05/12/21 08:35 Resp 18 05/12/21 08:35 BP 155/64 05/12/21 08:35 Pulse Ox 98 05/12/21 08:35 Intake & Output 05/11/21 05/12/21 05/12/21 18:59 06:59 18:59 Intake Total 717 Output Total 1250 1740 Balance -533 -1740 Weight 97 kg Intake: Oral 717 Output: Urine 1250 1740 Other: Voiding Method External Catheter External Catheter # Voids 1 - Constitutional General appearance: Present: no acute distress - Respiratory Respiratory: bilateral: diminished - Cardiovascular Rhythm: regular Heart sounds: normal: S1, S2 - Labs CBC & Chem 7: 05/11/21 07:10 05/11/21 07:10 Labs: Abnormal Lab Results - Last 24 Hours (Table) 05/11/21 05/11/21 05/11/21 Range/Units 11:24 16:36 20:04 POC Glucose (mg/dL) 255 H 188 H 259 H (75-99) mg/dL 05/12/21 Range/Units 06:00 POC Glucose (mg/dL) 167 H (75-99) mg/dL Assessment and Plan Assessment: Assessment #1 acute exacerbation of heart failure with preserved ejection fraction #2 chronic kidney disease #3 hypertension #4 dyslipidemia #5 coronary artery disease Plan #1 continue the current medical regimen
[2021-05-12 09:56] LABS: Anisocytosis Slight; HCT 30.6 % (34.0-46.0); MCH 31.1 pg (25.0-35.0); MCHC 32.6 g/dL (31.0-37.0); MCV 95.3 fL (80.0-100.0); Mean Platelet Volume 9.1; Platelet Count 133 k/uL (150-450); RBC 3.21 m/uL (3.80-5.40); RDW 16.1 % (11.5-15.5); WBC 4.5 k/uL (3.8-10.6)
[2021-05-12] MEDS: SODIUM FERRIC GLUCONAT-SUCROSE 125 MG in SODIUM CHLORIDE 0.9% 100 ML IVPB SCH (09:56)
[2021-05-12 10:09] LABS: Albumin 2.8 g/dL (3.5-5.0); Calcium 8.3 mg/dL (8.4-10.2); Potassium 4.3 mmol/L (3.5-5.1); Total Bilirubin 0.4 mg/dL (0.2-1.3); Total Protein 5.3 g/dL (6.3-8.2)
--- NOTE | 2021-05-12 11:24 | P.PN ---
Subjective Progress Note Date: 05/12/21 Elza Avery is a 81-year-old female patient of Dr. Ward who presented with progressive been worsening shortness of breath and increased edema to lower extremities over the past 2 weeks. Patient has a significant past medical history for chronic hypoxic respiratory failure on 3 L, diabetes mellitus, hy pertension, COPD, chronic kidney disease, CAD with coronary artery bypass graft surgery, pacemaker insertion and chronic diastolic congestive heart failure. Chest x-ray completed in ER showing findings suggestive with congestive heart failure small basilar effusions follow-up is recommended area patient also elevated troponin 0.078. BNP elevated 38,300. At this time patient has been started on IV Lasix. Cardiology services have been consulted. 2-D echo has been ordered. Patient is currently resting comfortably in bed. Patient reports slight improvement with shortness of breath. Patient complains of shortness of breath with activity. Patient denies chest pain. Patient denies nausea vomiting or diarrhea. Patient denies any urinary burning or frequency On 05/10/2021 Patient was seen and examined on the medical floor, she is alert and oriented x 3 in no distress, she is still complaining of shortness of breath otherwise she denies any complaints there is no fever or chills no headache or dizziness no chest pain no palpitation no cough no nausea or vomiting no abdominal pain no diarrhea no blood in the stools no burning with urination no frequency or urgency and no hematuria, there is no weakness or numbness in any of the extremities no change in vision speech or gait. On 05/11/2021 patient alert and oriented times 3. Patient is still complaining of some shortness of breath. Patient remains on IV Lasix 40 every 12. Nephrology and cardiology services are consulted. Weight down 97 kg just 96.5. Creatinine slightly increased to 2.89 bun 96. Patient denies chest pain. Patient denies nausea vomiting or diarrhea. Patient denies any urinary burning or frequency On 05/12/2021 patient was seen and examined on the telemetry floor, she is still complaining of shortness of breath especially with activity, otherwise she denies any complaints there is no fever or chills no headache or dizziness no chest pain no palpitation no cough no nausea or vomiting no abdominal pain no diarrhea no blood in the stools no burning with urination no frequency or urgency and no hematuria. Objective - Vital Signs Vital signs: Vital Signs Temp 98.4 F 05/12/21 03:26 Pulse 64 05/12/21 03:26 Resp 18 05/12/21 03:26 BP 162/67 05/12/21 03:26 Pulse Ox 98 05/12/21 03:26 Intake & Output 05/11/21 05/12/21 05/12/21 18:59 06:59 18:59 Intake Total 717 Output Total 1250 1740 Balance -533 -1740 Weight 97 kg Intake: Oral 717 Output: Urine 1250 1740 Other: Voiding Method External Catheter External Catheter # Voids 1 - Exam In general patient is alert and oriented x 3 in no distress HEENT head normocephalic and atraumatic Neck is supple no JVD no goiter no lymphadenopathy no carotid bruit Chest examination reveals a scattered crackles in both bases no wheezing Cardiac exam reveals regular heart sounds S1 and S2 no gallops no murmurs Abdomen is soft nontender no organomegaly with normal bowel sounds Extremity exam reveals 1+ edema no cyanosis or clubbing Neurological examination reveals no gross focal deficits - Labs CBC & Chem 7: 05/12/21 09:35 05/12/21 09:35 Labs: Abnormal Lab Results - Last 24 Hours (Table) 05/11/21 05/11/21 05/11/21 Range/Units 07:10 07:10 11:24 RBC 3.06 L (3.80-5.40) m/uL Hgb 9.6 L (11.4-16.0) gm/dL Hct 29.6 L (34.0-46.0) % RDW 16.2 H (11.5-15.5) % Plt Count 143 L (150-450) k/uL Sodium 136 L (137-145) mmol/L Carbon Dioxide 32 H (22-30) mmol/L BUN 96 H (7-17) mg/dL Creatinine 2.89 H (0.52-1.04) mg/dL Glucose 108 H (74-99) mg/dL POC Glucose (mg/dL) 255 H (75-99) mg/dL Calcium 8.1 L (8.4-10.2) mg/dL Total Protein 5.0 L (6.3-8.2) g/dL Albumin 2.7 L (3.5-5.0) g/dL 05/11/21 05/11/21 05/12/21 Range/Units 16:36 20:04 06:00 RBC (3.80-5.40) m/uL Hgb (11.4-16.0) gm/dL Hct (34.0-46.0) % RDW (11.5-15.5) % Plt Count (150-450) k/uL Sodium (137-145) mmol/L Carbon Dioxide (22-30) mmol/L BUN (7-17) mg/dL Creatinine (0.52-1.04) mg/dL Glucose (74-99) mg/dL POC Glucose (mg/dL) 188 H 259 H 167 H (75-99) mg/dL Calcium (8.4-10.2) mg/dL Total Protein (6.3-8.2) g/dL Albumin (3.5-5.0) g/dL Assessment and Plan Assessment: 1. Acute on chronic diastolic congestive heart failure 2. elevated troponin 3. Acute on chronic kidney disease 4. History of diabetes mellitus 5. History of hyperlipidemia 6. History of essential hypertension 7. History of coronary artery disease 8. History of cardiac arrhythmia with history of AICD and pacemaker placement 9. History of COPD 10. History of ongoing nicotine dependence DVT prophylaxis Lovenox. GI prophylaxis Protonix Cardiology and nephrology service is consulted Maintained on IV Lasix Repeat labs ordered for a.m.
--- NOTE | 2021-05-12 11:28 | P.PN ---
Subjective Progress Note Date: 05/12/21 Principal diagnosis: This is an 81-year-old female known to us with chronic kidney disease who was at mid-with cardiorenal syndrome shortness of breath. She is on diuretics and has felt less short of breath but feels tired. She didn't get enough sleep. Appetite is fair. Also has anemia and is on IV iron. She is known with coronary artery disease. Her vital signs are unremarkable blood. Slightly high in the 150s to 160s systolic and 60s diastolic. Urine output is documented at 29 90 mL Objective - Vital Signs Vital signs: Vital Signs Temp 97.6 F 05/12/21 08:35 Pulse 60 05/12/21 08:35 Resp 18 05/12/21 08:35 BP 155/64 05/12/21 08:35 Pulse Ox 98 05/12/21 08:35 Intake & Output 05/11/21 05/12/21 05/12/21 18:59 06:59 18:59 Intake Total 717 480 Output Total 1250 1740 600 Balance -533 -1740 -120 Weight 97 kg Intake: Oral 717 480 Output: Urine 1250 1740 600 Other: Voiding Method External Catheter External Catheter External Catheter # Voids 1 On examination she is currently on nasal cannula oxygen comfortable at rest. A chin exam no JVP neck is supple no facial asymmetry Lungs are significant for an occasional coarse crackle at bases Good air entry bilaterally Heart sounds unremarkable for any murmur rub gallop Abdomen soft nontender Extremity exam was trace edema Neurologically awake alert oriented no asterixis - Labs CBC & Chem 7: 05/12/21 09:35 05/12/21 09:35 Labs: Abnormal Lab Results - Last 24 Hours (Table) 05/11/21 05/11/21 05/11/21 Range/Units 11:24 16:36 20:04 RBC (3.80-5.40) m/uL Hgb (11.4-16.0) gm/dL Hct (34.0-46.0) % RDW (11.5-15.5) % Plt Count (150-450) k/uL Sodium (137-145) mmol/L Chloride (98-107) mmol/L Carbon Dioxide (22-30) mmol/L BUN (7-17) mg/dL Creatinine (0.52-1.04) mg/dL Glucose (74-99) mg/dL POC Glucose (mg/dL) 255 H 188 H 259 H (75-99) mg/dL Calcium (8.4-10.2) mg/dL Total Protein (6.3-8.2) g/dL Albumin (3.5-5.0) g/dL 05/12/21 05/12/21 05/12/21 Range/Units 06:00 09:35 09:35 RBC 3.21 L (3.80-5.40) m/uL Hgb 10.0 L (11.4-16.0) gm/dL Hct 30.6 L (34.0-46.0) % RDW 16.1 H (11.5-15.5) % Plt Count 133 L (150-450) k/uL Sodium 133 L (137-145) mmol/L Chloride 94 L (98-107) mmol/L Carbon Dioxide 31 H (22-30) mmol/L BUN 107 H* (7-17) mg/dL Creatinine 2.50 H (0.52-1.04) mg/dL Glucose 172 H (74-99) mg/dL POC Glucose (mg/dL) 167 H (75-99) mg/dL Calcium 8.3 L (8.4-10.2) mg/dL Total Protein 5.3 L (6.3-8.2) g/dL Albumin 2.8 L (3.5-5.0) g/dL Assessment and Plan Assessment: Impression 1. Chronic kidney disease stage III. with diabetic nephropathy and nephrosclerosis. 2. Acute kidney injury from cardiac renal syndrome creatinine improved slightly today. 3. An deficiency anemia. Hemoglobin is 10 saturation is 7% dated 05/10/2021 status post IV iron. 4. Mild degree of hyponatremia from acute kidney injury and diuresis 5. Mild degree of metabolic alkalosis from diuresis bicarb is 31. Recommendation 1. Continue darbepoetin 2. [place] [id number] did torsemide 80 today and maintain the metolazone at 5 mg. 3. Hopefully she will be able to go home tomorrow if she feels better
[2021-05-12 11:37] LABS: Glucose,Whole Blood 233 mg/dL (75-99)
[2021-05-12] MEDS: TORSEMIDE 20 MG TAB PO SCH (14:16)
[2021-05-12 14:44] LABS: Eosinophils # (M) 0.27 k/uL (0-0.7); Lymphocytes # (M) 0.45 k/uL (1.0-4.8); Monocytes # (M) 0.27 k/uL (0-1.0); Neutrophils # (M) 3.51 k/uL (1.3-7.7); Neutrophils % (M) 78 %; Nucleated Red Blood Cells 0 /100 WBC (0-0); Total Cells Counted 100
[2021-05-12 16:37] LABS: Glucose,Whole Blood 193 mg/dL (75-99)
[2021-05-12 20:48] LABS: Glucose,Whole Blood 230 mg/dL (75-99)
[2021-05-12] MEDS: TEMAZEPAM 15 MG CAP PO PRN (21:11)
[2021-05-12] MEDS: INSULIN DETEMIR (LEVEMIR) 100 UNIT/ML SYR SQ SCH (21:11)
[2021-05-12] MEDS: ATORVASTATIN 10 MG TAB PO SCH (21:11)
[2021-05-13 06:17] LABS: Glucose,Whole Blood 188 mg/dL (75-99)
[2021-05-13] MEDS: carvediloL 6.25 MG TAB PO SCH ×2 (06:35→17:34)
[2021-05-13] MEDS: PANTOPRAZOLE 40 MG TABLET PO SCH (06:35)
[2021-05-13] MEDS: INSULIN ASPART (NovoLOG) 100 UNIT/ML VIAL SQ SCH ×3 (06:35→17:34)
--- NOTE | 2021-05-13 07:38 | P.PN ---
Subjective Progress Note Date: 05/13/21 Principal diagnosis: Heart failure with preserved ejection fraction This is a pleasant 81-year-old female patient was admitted to the hospital with acute exacerbation of chronic diastolic heart failure. The ejection fraction was 50-55%. The patient was seen this morning. She seems to be euvolemic on examination. The lower extremities edema has improved significantly and she has clear breathing sounds bilaterally as well. She was seen yesterday by the nephrology service and the Lasix was changed to Torsemide . She is also on metolazone. Objective - Vital Signs Vital signs: Vital Signs Temp 98.4 F 05/13/21 03:43 Pulse 60 05/13/21 03:43 Resp 18 05/13/21 03:43 BP 160/72 05/13/21 03:43 Pulse Ox 96 05/13/21 03:43 Intake & Output 05/12/21 05/13/21 05/13/21 18:59 06:59 18:59 Intake Total 600 Output Total 1100 650 Balance -500 -650 Weight 92 kg Intake: Oral 600 Output: Urine 1100 650 Other: Voiding Method External Catheter External Catheter - Constitutional General appearance: Present: no acute distress - Respiratory Respiratory: bilateral: CTA - Cardiovascular Heart sounds: normal: S1, S2 - Labs CBC & Chem 7: 05/12/21 09:35 05/12/21 09:35 Labs: Abnormal Lab Results - Last 24 Hours (Table) 05/12/21 05/12/21 05/12/21 Range/Units 09:35 09:35 11:36 RBC 3.21 L (3.80-5.40) m/uL Hgb 10.0 L (11.4-16.0) gm/dL Hct 30.6 L (34.0-46.0) % RDW 16.1 H (11.5-15.5) % Plt Count 133 L (150-450) k/uL Lymphocytes # (Manual) 0.45 L (1.0-4.8) k/uL Sodium 133 L (137-145) mmol/L Chloride 94 L (98-107) mmol/L Carbon Dioxide 31 H (22-30) mmol/L BUN 107 H* (7-17) mg/dL Creatinine 2.50 H (0.52-1.04) mg/dL Glucose 172 H (74-99) mg/dL POC Glucose (mg/dL) 233 H (75-99) mg/dL Calcium 8.3 L (8.4-10.2) mg/dL Total Protein 5.3 L (6.3-8.2) g/dL Albumin 2.8 L (3.5-5.0) g/dL 05/12/21 05/12/21 05/13/21 Range/Units 16:35 20:47 06:15 RBC (3.80-5.40) m/uL Hgb (11.4-16.0) gm/dL Hct (34.0-46.0) % RDW (11.5-15.5) % Plt Count (150-450) k/uL Lymphocytes # (Manual) (1.0-4.8) k/uL Sodium (137-145) mmol/L Chloride (98-107) mmol/L Carbon Dioxide (22-30) mmol/L BUN (7-17) mg/dL Creatinine (0.52-1.04) mg/dL Glucose (74-99) mg/dL POC Glucose (mg/dL) 193 H 230 H 188 H (75-99) mg/dL Calcium (8.4-10.2) mg/dL Total Protein (6.3-8.2) g/dL Albumin (3.5-5.0) g/dL Assessment and Plan Assessment: Assessment #1 acute exacerbation of heart failure with preserved ejection fraction #2 chronic kidney disease #3 hypertension #4 dyslipidemia #5 coronary artery disease Plan #1 continue the current medical regimen #2 discharge in the next 12-24
[2021-05-13 08:56] LABS: HCT 30.2 % (34.0-46.0); HGB 9.8 gm/dL (11.4-16.0); Hypochromasia Slight; MCH 31.3 pg (25.0-35.0); MCHC 32.5 g/dL (31.0-37.0); MCV 96.3 fL (80.0-100.0); Platelet Count 158 k/uL (150-450); RBC 3.14 m/uL (3.80-5.40); WBC 4.6 k/uL (3.8-10.6)
[2021-05-13 09:01] LABS: Albumin 2.8 g/dL (3.5-5.0); Calcium 8.4 mg/dL (8.4-10.2); Potassium 4.1 mmol/L (3.5-5.1); Total Bilirubin 0.2 mg/dL (0.2-1.3); Total Protein 5.2 g/dL (6.3-8.2)
[2021-05-13] MEDS: hydrALAZINE HCL 50 MG TAB PO SCH ×3 (09:18→20:50)
[2021-05-13] MEDS: allopurinoL 100 MG TAB PO SCH (09:18)
[2021-05-13] MEDS: MIRTAZAPINE 15 MG TAB PO SCH (09:18)
[2021-05-13] MEDS: ENOXAPARIN 30 MG/0.3 ML SYRINGE SQ SCH (09:18)
[2021-05-13] MEDS: ASPIRIN 81 MG PO SCH (09:18)
[2021-05-13] MEDS: SODIUM FERRIC GLUCONAT-SUCROSE 125 MG in SODIUM CHLORIDE 0.9% 100 ML IVPB SCH (09:19)
[2021-05-13 11:31] LABS: Glucose,Whole Blood 216 mg/dL (75-99)
--- NOTE | 2021-05-13 11:47 | P.PN ---
Subjective Progress Note Date: 05/13/21 Principal diagnosis: This is an 81-year-old female known to us with chronic kidney disease who was admitted with cardiorenal syndrome and shortness of breath. She is on diuretics and has felt less short of breath but feels tired. With the diuresis her creatinine went up from 2.5-3.2 and a BUN went up from 107-122. While signs are stable she is not hypotensive. Urine output is documented at 17 50 mL, and 2990 before that She says she can walk without any help and no dizziness. Also has anemia and is on IV iron. She is known with coronary artery disease. Objective - Vital Signs Vital signs: Vital Signs Temp 97.3 F L 05/13/21 09:15 Pulse 60 05/13/21 09:15 Resp 16 05/13/21 09:15 BP 138/63 05/13/21 09:15 Pulse Ox 100 05/13/21 09:15 Intake & Output 05/12/21 05/13/21 05/13/21 18:59 06:59 18:59 Intake Total 600 358 Output Total 1100 650 500 Balance -500 -650 -142 Weight 92 kg Intake: Oral 600 358 Output: Urine 1100 650 500 Other: Voiding Method External Catheter External Catheter External Catheter On examination she is currently on nasal cannula oxygen comfortable at rest. A chin exam no JVP neck is supple no facial asymmetry Lungs are significant for an occasional coarse crackle at bases Good air entry bilaterally Heart sounds unremarkable for any murmur rub gallop Abdomen soft nontender Extremity exam was trace edema Neurologically awake alert oriented no asterixis - Labs CBC & Chem 7: 05/13/21 08:18 05/13/21 08:18 Labs: Abnormal Lab Results - Last 24 Hours (Table) 05/12/21 05/12/21 05/12/21 Range/Units 09:35 16:35 20:47 RBC (3.80-5.40) m/uL Hgb (11.4-16.0) gm/dL Hct (34.0-46.0) % RDW (11.5-15.5) % Lymphocytes # (Manual) 0.45 L (1.0-4.8) k/uL Sodium (137-145) mmol/L Chloride (98-107) mmol/L Carbon Dioxide (22-30) mmol/L BUN (7-17) mg/dL Creatinine (0.52-1.04) mg/dL Glucose (74-99) mg/dL POC Glucose (mg/dL) 193 H 230 H (75-99) mg/dL Total Protein (6.3-8.2) g/dL Albumin (3.5-5.0) g/dL 05/13/21 05/13/21 05/13/21 Range/Units 06:15 08:18 08:18 RBC 3.14 L (3.80-5.40) m/uL Hgb 9.8 L (11.4-16.0) gm/dL Hct 30.2 L (34.0-46.0) % RDW 16.0 H (11.5-15.5) % Lymphocytes # (Manual) (1.0-4.8) k/uL Sodium 135 L (137-145) mmol/L Chloride 93 L (98-107) mmol/L Carbon Dioxide 33 H (22-30) mmol/L BUN 122 H* (7-17) mg/dL Creatinine 3.20 H (0.52-1.04) mg/dL Glucose 180 H (74-99) mg/dL POC Glucose (mg/dL) 188 H (75-99) mg/dL Total Protein 5.2 L (6.3-8.2) g/dL Albumin 2.8 L (3.5-5.0) g/dL 05/13/21 Range/Units 11:30 RBC (3.80-5.40) m/uL Hgb (11.4-16.0) gm/dL Hct (34.0-46.0) % RDW (11.5-15.5) % Lymphocytes # (Manual) (1.0-4.8) k/uL Sodium (137-145) mmol/L Chloride (98-107) mmol/L Carbon Dioxide (22-30) mmol/L BUN (7-17) mg/dL Creatinine (0.52-1.04) mg/dL Glucose (74-99) mg/dL POC Glucose (mg/dL) 216 H (75-99) mg/dL Total Protein (6.3-8.2) g/dL Albumin (3.5-5.0) g/dL Assessment and Plan Assessment: Impression 1. Chronic kidney disease stage III. with diabetic nephropathy and nephrosclerosis. 2. Acute kidney injury from cardiac renal syndrome creatinine had improved to 2.5 from 2.8 but this morning went up again to 3.2. Possibly intravascular volume depletion 3. Iron deficiency anemia. Hemoglobin is 9.8 saturation is 7% dated 05/10/2021 status post IV iron. 4. Mild degree of hyponatremia from acute kidney injury and diuresis 5. Mild degree of metabolic alkalosis from diuresis bicarb is 31, and up to 33. Recommendation 1. Will obtain orthostatic changes and reduce the torsemide 80 mg down to 40 mg a day. 2. Discontinue metolazone at 5 mg 3. Labs tomorrow and he adjusts diuretic dose as needed. 4. We'll obtain chest for tomorrow if creatinine worsens and see if there is pulmonary edema remaining
[2021-05-13] MEDS: TORSEMIDE 20 MG TAB PO SCH ×2 (11:50→12:41)
--- NOTE | 2021-05-13 12:17 | P.PN ---
Subjective Progress Note Date: 05/13/21 Elza Avery is a 81-year-old female patient of Dr. Ward who presented with progressive been worsening shortness of breath and increased edema to lower extremities over the past 2 weeks. Patient has a significant past medical history for chronic hypoxic respiratory failure on 3 L, diabetes mellitus, hy pertension, COPD, chronic kidney disease, CAD with coronary artery bypass graft surgery, pacemaker insertion and chronic diastolic congestive heart failure. Chest x-ray completed in ER showing findings suggestive with congestive heart failure small basilar effusions follow-up is recommended area patient also elevated troponin 0.078. BNP elevated 38,300. At this time patient has been started on IV Lasix. Cardiology services have been consulted. 2-D echo has been ordered. Patient is currently resting comfortably in bed. Patient reports slight improvement with shortness of breath. Patient complains of shortness of breath with activity. Patient denies chest pain. Patient denies nausea vomiting or diarrhea. Patient denies any urinary burning or frequency On 05/10/2021 Patient was seen and examined on the medical floor, she is alert and oriented x 3 in no distress, she is still complaining of shortness of breath otherwise she denies any complaints there is no fever or chills no headache or dizziness no chest pain no palpitation no cough no nausea or vomiting no abdominal pain no diarrhea no blood in the stools no burning with urination no frequency or urgency and no hematuria, there is no weakness or numbness in any of the extremities no change in vision speech or gait. On 05/11/2021 patient alert and oriented times 3. Patient is still complaining of some shortness of breath. Patient remains on IV Lasix 40 every 12. Nephrology and cardiology services are consulted. Weight down 97 kg just 96.5. Creatinine slightly increased to 2.89 bun 96. Patient denies chest pain. Patient denies nausea vomiting or diarrhea. Patient denies any urinary burning or frequency On 05/12/2021 patient was seen and examined on the telemetry floor, she is still complaining of shortness of breath especially with activity, otherwise she denies any complaints there is no fever or chills no headache or dizziness no chest pain no palpitation no cough no nausea or vomiting no abdominal pain no diarrhea no blood in the stools no burning with urination no frequency or urgency and no hematuria. On 05/13/2021 patient is alert and oriented 3. Creatinine 3.20 and bun 122. Per nephrology services plan to decrease torsemide from 80-40. Metabolic bone DC'd. Repeat labs in a.m. At this time patient denies chest pain or shortness of breath. Patient denies nausea vomiting or diarrhea. Patient denies any urinary burning or frequency Objective - Vital Signs Vital signs: Vital Signs Temp 96.7 F L 05/13/21 11:52 Pulse 72 05/13/21 11:52 Resp 18 05/13/21 11:52 BP 152/65 05/13/21 11:52 Pulse Ox 100 05/13/21 11:52 Intake & Output 05/12/21 05/13/21 05/13/21 18:59 06:59 18:59 Intake Total 600 358 Output Total 1100 650 500 Balance -500 -650 -142 Weight 92 kg Intake: Oral 600 358 Output: Urine 1100 650 500 Other: Voiding Method External Catheter External Catheter External Catheter - Exam In general patient is alert and oriented x 3 in no distress HEENT head normocephalic and atraumatic Neck is supple no JVD no goiter no lymphadenopathy no carotid bruit Chest examination reveals a scattered crackles in both bases no wheezing Cardiac exam reveals regular heart sounds S1 and S2 no gallops no murmurs Abdomen is soft nontender no organomegaly with normal bowel sounds Extremity exam reveals 1+ edema no cyanosis or clubbing Neurological examination reveals no gross focal deficits - Labs CBC & Chem 7: 05/13/21 08:18 05/13/21 08:18 Labs: Abnormal Lab Results - Last 24 Hours (Table) 05/12/21 05/12/21 05/12/21 Range/Units 09:35 16:35 20:47 RBC (3.80-5.40) m/uL Hgb (11.4-16.0) gm/dL Hct (34.0-46.0) % RDW (11.5-15.5) % Lymphocytes # (Manual) 0.45 L (1.0-4.8) k/uL Sodium (137-145) mmol/L Chloride (98-107) mmol/L Carbon Dioxide (22-30) mmol/L BUN (7-17) mg/dL Creatinine (0.52-1.04) mg/dL Glucose (74-99) mg/dL POC Glucose (mg/dL) 193 H 230 H (75-99) mg/dL Total Protein (6.3-8.2) g/dL Albumin (3.5-5.0) g/dL 05/13/21 05/13/21 05/13/21 Range/Units 06:15 08:18 08:18 RBC 3.14 L (3.80-5.40) m/uL Hgb 9.8 L (11.4-16.0) gm/dL Hct 30.2 L (34.0-46.0) % RDW 16.0 H (11.5-15.5) % Lymphocytes # (Manual) (1.0-4.8) k/uL Sodium 135 L (137-145) mmol/L Chloride 93 L (98-107) mmol/L Carbon Dioxide 33 H (22-30) mmol/L BUN 122 H* (7-17) mg/dL Creatinine 3.20 H (0.52-1.04) mg/dL Glucose 180 H (74-99) mg/dL POC Glucose (mg/dL) 188 H (75-99) mg/dL Total Protein 5.2 L (6.3-8.2) g/dL Albumin 2.8 L (3.5-5.0) g/dL 05/13/21 Range/Units 11:30 RBC (3.80-5.40) m/uL Hgb (11.4-16.0) gm/dL Hct (34.0-46.0) % RDW (11.5-15.5) % Lymphocytes # (Manual) (1.0-4.8) k/uL Sodium (137-145) mmol/L Chloride (98-107) mmol/L Carbon Dioxide (22-30) mmol/L BUN (7-17) mg/dL Creatinine (0.52-1.04) mg/dL Glucose (74-99) mg/dL POC Glucose (mg/dL) 216 H (75-99) mg/dL Total Protein (6.3-8.2) g/dL Albumin (3.5-5.0) g/dL Assessment and Plan Assessment: 1. Acute on chronic diastolic congestive heart failure 2. elevated troponin 3. Acute on chronic kidney disease 4. History of diabetes mellitus 5. History of hyperlipidemia 6. History of essential hypertension 7. History of coronary artery disease 8. History of cardiac arrhythmia with history of AICD and pacemaker placement 9. History of COPD 10. History of ongoing nicotine dependence DVT prophylaxis Lovenox. GI prophylaxis Protonix Cardiology and nephrology service is consulted Lasix DC'd. Torsemide decreased and metolazone DC'd per nephrology Repeat labs in a.m. Chest x-ray ordered for a.m.
[2021-05-13 12:19] LABS: Eosinophils # (M) 0.37 k/uL (0-0.7); Lymphocytes # (M) 0.97 k/uL (1.0-4.8); Monocytes # (M) 0.09 k/uL (0-1.0); Neutrophils # (M) 3.17 k/uL (1.3-7.7); Neutrophils % (M) 69 %; Nucleated Red Blood Cells 0 /100 WBC (0-0); Total Cells Counted 100
[2021-05-13 17:03] LABS: Glucose,Whole Blood 229 mg/dL (75-99)
[2021-05-13 20:17] LABS: Glucose,Whole Blood 177 mg/dL (75-99)
[2021-05-13] MEDS: INSULIN DETEMIR (LEVEMIR) 100 UNIT/ML SYR SQ SCH (20:49)
[2021-05-13] MEDS: TEMAZEPAM 15 MG CAP PO PRN (20:50)
[2021-05-13] MEDS: ATORVASTATIN 10 MG TAB PO SCH (20:50)
[2021-05-14 05:54] LABS: Glucose,Whole Blood 175 mg/dL (75-99)
[2021-05-14] MEDS: INSULIN ASPART (NovoLOG) 100 UNIT/ML VIAL SQ SCH ×3 (06:30→16:55)
[2021-05-14] MEDS: PANTOPRAZOLE 40 MG TABLET PO SCH (06:30)
[2021-05-14] MEDS: carvediloL 6.25 MG TAB PO SCH ×2 (06:30→16:55)
--- NOTE | 2021-05-14 07:38 | XR ---
EXAMINATION TYPE: XR chest 1V DATE OF EXAM: 05/14/2021 COMPARISON: 05/08/2021 INDICATION: Follow-up CHF TECHNIQUE: Single frontal view of the chest is obtained. FINDINGS: The heart size is moderately prominent. Sternotomy wires are in the midline. Pacemaker overlies left chest.. The pulmonary vasculature is slightly prominent. Mild diffuse increased lung markings are present. Findings could be compatible with mild congestive h eart failure. IMPRESSION: 1. Mild congestive heart failure
[2021-05-14 08:21] LABS: ALT 18 U/L (4-34); AST 23 U/L (14-36); African American GFR (CKD) 15 (>60 ml/min/1.73 sqM); Albumin 2.7 g/dL (3.5-5.0); Alkaline Phosphatase 71 U/L (38-126); Anion Gap 7 mmol/L; Calcium 8.4 mg/dL (8.4-10.2); Carbon Dioxide 35 mmol/L (22-30); Chloride 94 mmol/L (98-107); Glucose 133 mg/dL (74-99); Non-African American GFR(CKD) 13 (>60 ml/min/1.73 sqM); Sodium 136 mmol/L (137-145); Total Bilirubin <0.1 mg/dL (0.2-1.3); Total Protein 5.1 g/dL (6.3-8.2)
[2021-05-14 08:24] LABS: Anisocytosis Slight; HCT 28.3 % (34.0-46.0); MCH 30.7 pg (25.0-35.0); MCV 95.9 fL (80.0-100.0); Mean Platelet Volume 10.2; Platelet Count 150 k/uL (150-450); RBC 2.95 m/uL (3.80-5.40); RDW 16.1 % (11.5-15.5); WBC 4.4 k/uL (3.8-10.6)
[2021-05-14 08:44] LABS: Blood Urea Nitrogen 130 mg/dL (7-17); Potassium 4.1 mmol/L (3.5-5.1)
[2021-05-14] MEDS ORDERED: TORSEMIDE 20 MG TAB PO SCH (09:00)
[2021-05-14] MEDS: TORSEMIDE 20 MG TAB PO SCH (09:22)
[2021-05-14] MEDS: ASPIRIN 81 MG PO SCH (09:22)
[2021-05-14] MEDS: SODIUM FERRIC GLUCONAT-SUCROSE 125 MG in SODIUM CHLORIDE 0.9% 100 ML IVPB SCH (09:22)
[2021-05-14] MEDS: ENOXAPARIN 30 MG/0.3 ML SYRINGE SQ SCH (09:22)
[2021-05-14] MEDS: MIRTAZAPINE 15 MG TAB PO SCH (09:22)
[2021-05-14] MEDS: hydrALAZINE HCL 50 MG TAB PO SCH ×3 (09:22→20:44)
[2021-05-14] MEDS: allopurinoL 100 MG TAB PO SCH (09:22)
[2021-05-14 10:30] LABS: Eosinophils # (M) 0.35 k/uL (0-0.7); Lymphocytes # (M) 0.66 k/uL (1.0-4.8); Monocytes # (M) 0.26 k/uL (0-1.0); Neutrophils # (M) 3.12 k/uL (1.3-7.7); Neutrophils % (M) 71 %; Nucleated Red Blood Cells 0 /100 WBC (0-0); Total Cells Counted 100
[2021-05-14 10:32] LABS: Large Platelets Present
--- NOTE | 2021-05-14 11:49 | P.PN ---
Subjective Progress Note Date: 05/14/21 Principal diagnosis: Heart failure with preserved ejection fraction This is a pleasant 81-year-old female patient was admitted to the hospital with acute exacerbation of chronic diastolic heart failure. The ejection fraction was 50-55%. The patient was seen this morning. She is feeling overall better. She seems to be euvolemic on examination besides very mild lower extremities edema. No symptoms of chest pain or chest discomfort and no shortness of breath. The diuretics has been managed by the nephrology service. From the cardiac standpoint of view, we'll follow-up with the patient on when necessary case Objective - Vital Signs Vital signs: Vital Signs Temp 98.0 F 05/14/21 08:00 Pulse 60 05/14/21 08:00 Resp 18 05/14/21 08:00 BP 126/66 05/14/21 08:00 Pulse Ox 100 05/14/21 08:00 Intake & Output 05/13/21 05/14/21 05/14/21 18:59 06:59 18:59 Intake Total 838 Output Total 1250 1250 Balance -412 -1250 Weight 92.1 kg Intake: Oral 838 Output: Urine 1250 1250 Other: Voiding Method External Catheter External Catheter External Catheter # Bowel Movements 1 - Constitutional General appearance: Present: no acute distress - Respiratory Respiratory: bilateral: diminished - Cardiovascular Heart sounds: normal: S1, S2 - Labs CBC & Chem 7: 05/14/21 07:00 05/14/21 07:00 Labs: Abnormal Lab Results - Last 24 Hours (Table) 05/13/21 05/13/21 05/13/21 Range/Units 08:18 16:52 20:15 RBC (3.80-5.40) m/uL Hgb (11.4-16.0) gm/dL Hct (34.0-46.0) % RDW (11.5-15.5) % Lymphocytes # (Manual) 0.97 L (1.0-4.8) k/uL Sodium (137-145) mmol/L Chloride (98-107) mmol/L Carbon Dioxide (22-30) mmol/L BUN (7-17) mg/dL Creatinine (0.52-1.04) mg/dL Glucose (74-99) mg/dL POC Glucose (mg/dL) 229 H 177 H (75-99) mg/dL Total Bilirubin (0.2-1.3) mg/dL Total Protein (6.3-8.2) g/dL Albumin (3.5-5.0) g/dL 05/14/21 05/14/21 05/14/21 Range/Units 05:53 07:00 07:00 RBC 2.95 L (3.80-5.40) m/uL Hgb 9.0 L (11.4-16.0) gm/dL Hct 28.3 L (34.0-46.0) % RDW 16.1 H (11.5-15.5) % Lymphocytes # (Manual) 0.66 L (1.0-4.8) k/uL Sodium 136 L (137-145) mmol/L Chloride 94 L (98-107) mmol/L Carbon Dioxide 35 H (22-30) mmol/L BUN 130 H* (7-17) mg/dL Creatinine 3.14 H (0.52-1.04) mg/dL Glucose 133 H (74-99) mg/dL POC Glucose (mg/dL) 175 H (75-99) mg/dL Total Bilirubin <0.1 L (0.2-1.3) mg/dL Total Protein 5.1 L (6.3-8.2) g/dL Albumin 2.7 L (3.5-5.0) g/dL Assessment and Plan Assessment: Assessment #1 acute exacerbation of heart failure with preserved ejection fraction #2 chronic kidney disease #3 hypertension #4 dyslipidemia #5 coronary artery disease Plan #1 continue the current medical regimen #2 follow-up with the patient on when necessary case
[2021-05-14 12:11] LABS: Glucose,Whole Blood 219 mg/dL (75-99)
--- NOTE | 2021-05-14 12:46 | P.PN ---
Subjective Progress Note Date: 05/14/21 Principal diagnosis: This is an 81-year-old female known to us with chronic kidney disease who was admitted with cardiorenal syndrome and shortness of breath. She is on diuretics and has felt less short of breath but feels tired. With the diuresis her creatinine went up from 2.6-3.2 yesterday. Her torsemide was reduced from 80 mg to 40 mg and metolazone was discontinued She remains somewhat short of breath on oxygen nasal cannula. No dizziness No orthostatic changes when checked yesterday. This morning her creatinine is somewhat stable at 3.14 from 3.2 yesterday. Vital signs are stable Urine output is 2500 mL, in spite of reducing the torsemide Also has anemia and was given IV iron . She is known with coronary artery disease. Objective - Vital Signs Vital signs: Vital Signs Temp 98.0 F 05/14/21 08:00 Pulse 60 05/14/21 11:59 Resp 18 05/14/21 11:59 BP 140/62 05/14/21 11:59 Pulse Ox 99 05/14/21 11:59 Intake & Output 05/13/21 05/14/21 05/14/21 18:59 06:59 18:59 Intake Total 838 240 Output Total 1250 1250 Balance -412 -1250 240 Weight 92.1 kg Intake: Oral 838 240 Output: Urine 1250 1250 Other: Voiding Method External Catheter External Catheter External Catheter # Bowel Movements 1 On examination she is currently on nasal cannula oxygen comfortable at rest. HEENT exam no JVP neck is supple no facial asymmetry Lungs are significant for an occasional coarse crackle at bases Good air entry bilaterally Heart sounds unremarkable for any murmur rub gallop Abdomen soft nontender Extremity exam was minimal edema Neurologically awake alert oriented - Labs CBC & Chem 7: 05/14/21 07:00 05/14/21 07:00 Labs: Abnormal Lab Results - Last 24 Hours (Table) 05/13/21 05/13/21 05/14/21 Range/Units 16:52 20:15 05:53 RBC (3.80-5.40) m/uL Hgb (11.4-16.0) gm/dL Hct (34.0-46.0) % RDW (11.5-15.5) % Lymphocytes # (Manual) (1.0-4.8) k/uL Sodium (137-145) mmol/L Chloride (98-107) mmol/L Carbon Dioxide (22-30) mmol/L BUN (7-17) mg/dL Creatinine (0.52-1.04) mg/dL Glucose (74-99) mg/dL POC Glucose (mg/dL) 229 H 177 H 175 H (75-99) mg/dL Total Bilirubin (0.2-1.3) mg/dL Total Protein (6.3-8.2) g/dL Albumin (3.5-5.0) g/dL 05/14/21 05/14/21 05/14/21 Range/Units 07:00 07:00 12:06 RBC 2.95 L (3.80-5.40) m/uL Hgb 9.0 L (11.4-16.0) gm/dL Hct 28.3 L (34.0-46.0) % RDW 16.1 H (11.5-15.5) % Lymphocytes # (Manual) 0.66 L (1.0-4.8) k/uL Sodium 136 L (137-145) mmol/L Chloride 94 L (98-107) mmol/L Carbon Dioxide 35 H (22-30) mmol/L BUN 130 H* (7-17) mg/dL Creatinine 3.14 H (0.52-1.04) mg/dL Glucose 133 H (74-99) mg/dL POC Glucose (mg/dL) 219 H (75-99) mg/dL Total Bilirubin <0.1 L (0.2-1.3) mg/dL Total Protein 5.1 L (6.3-8.2) g/dL Albumin 2.7 L (3.5-5.0) g/dL Assessment and Plan Assessment: Impression 1. Chronic kidney disease stage III. with diabetic nephropathy and nephrosclerosis. 2. Acute kidney injury from cardiac renal syndrome creatinine had improved to 2.5 from 2.8 but went up again to 3.2. Possibly intravascular volume depletion, torsemide was reduced from 80 mg to 40 mg yesterday and metolazone was discontinued. Creatinine is stabilizing at 3.14 from 3.2 yesterday 3. Iron deficiency anemia. Hemoglobin is 9.8 > 9 saturation is 7% dated status post IV iron. 4. Mild degree of hyponatremia from acute kidney injury and diuresis, almost resolved sodium is up to 136 5. Mild degree of metabolic alkalosis from diuresis bicarb is 31 > 33 > 35. Recommendation 1. Continue torsemide at 40 mg reduced dose yesterday from 80 mg 2. We'll check labs tomorrow. 3. Will obtain orthostatic changes and reduce the torsemide 80 mg down to 40 mg a day. 2. Discontinue metolazone at 5 mg 3. Labs tomorrow and he adjusts diuretic dose as needed.
--- NOTE | 2021-05-14 12:59 | P.PN ---
Subjective Progress Note Date: 05/14/21 Elza Avery is a 81-year-old female patient of Dr. Ward who presented with progressive been worsening shortness of breath and increased edema to lower extremities over the past 2 weeks. Patient has a significant past medical history for chronic hypoxic respiratory failure on 3 L, diabetes mellitus, hy pertension, COPD, chronic kidney disease, CAD with coronary artery bypass graft surgery, pacemaker insertion and chronic diastolic congestive heart failure. Chest x-ray completed in ER showing findings suggestive with congestive heart failure small basilar effusions follow-up is recommended area patient also elevated troponin 0.078. BNP elevated 38,300. At this time patient has been started on IV Lasix. Cardiology services have been consulted. 2-D echo has been ordered. Patient is currently resting comfortably in bed. Patient reports slight improvement with shortness of breath. Patient complains of shortness of breath with activity. Patient denies chest pain. Patient denies nausea vomiting or diarrhea. Patient denies any urinary burning or frequency On 05/10/2021 Patient was seen and examined on the medical floor, she is alert and oriented x 3 in no distress, she is still complaining of shortness of breath otherwise she denies any complaints there is no fever or chills no headache or dizziness no chest pain no palpitation no cough no nausea or vomiting no abdominal pain no diarrhea no blood in the stools no burning with urination no frequency or urgency and no hematuria, there is no weakness or numbness in any of the extremities no change in vision speech or gait. On 05/11/2021 patient alert and oriented times 3. Patient is still complaining of some shortness of breath. Patient remains on IV Lasix 40 every 12. Nephrology and cardiology services are consulted. Weight down 97 kg just 96.5. Creatinine slightly increased to 2.89 bun 96. Patient denies chest pain. Patient denies nausea vomiting or diarrhea. Patient denies any urinary burning or frequency On 05/12/2021 patient was seen and examined on the telemetry floor, she is still complaining of shortness of breath especially with activity, otherwise she denies any complaints there is no fever or chills no headache or dizziness no chest pain no palpitation no cough no nausea or vomiting no abdominal pain no diarrhea no blood in the stools no burning with urination no frequency or urgency and no hematuria. On 05/13/2021 patient is alert and oriented 3. Creatinine 3.20 and bun 122. Per nephrology services plan to decrease torsemide from 80-40. Metabolic bone DC'd. Repeat labs in a.m. At this time patient denies chest pain or shortness of breath. Patient denies nausea vomiting or diarrhea. Patient denies any urinary burning or frequency On 05/14/2021 Patient was seen and examined on the medical floor, she is alert and oriented x 3 in no distress, she is still complaining of shortness of breath otherwise she denies any complaints there is no fever or chills no headache or dizziness no chest pain no palpitation no cough no nausea or vomiting no abdominal pain no diarrhea no blood in the stools no burning with urination no frequency or urgency and no hematuria, there is no weakness or numbness in any of the extremities no change in vision speech or gait. Objective - Vital Signs Vital signs: Vital Signs Temp 98.4 F 05/14/21 03:56 Pulse 60 05/14/21 03:56 Resp 18 05/14/21 03:56 BP 144/53 05/14/21 03:56 Pulse Ox 97 05/14/21 03:56 Intake & Output 05/13/21 05/14/21 05/14/21 18:59 06:59 18:59 Intake Total 838 Output Total 1250 1250 Balance -412 -1250 Weight 92.1 kg Intake: Oral 838 Output: Urine 1250 1250 Other: Voiding Method External Catheter External Catheter # Bowel Movements 1 - Exam In general patient is alert and oriented x 3 in no distress HEENT head normocephalic and atraumatic Neck is supple no JVD no goiter no lymphadenopathy no carotid bruit Chest examination reveals a scattered crackles in both bases no wheezing Cardiac exam reveals regular heart sounds S1 and S2 no gallops no murmurs Abdomen is soft nontender no organomegaly with normal bowel sounds Extremity exam reveals 1+ edema no cyanosis or clubbing Neurological examination reveals no gross focal deficits - Labs CBC & Chem 7: 05/14/21 07:00 05/14/21 07:00 Labs: Abnormal Lab Results - Last 24 Hours (Table) 05/13/21 05/13/21 05/13/21 Range/Units 08:18 08:18 11:30 RBC 3.14 L (3.80-5.40) m/uL Hgb 9.8 L (11.4-16.0) gm/dL Hct 30.2 L (34.0-46.0) % RDW 16.0 H (11.5-15.5) % Lymphocytes # (Manual) 0.97 L (1.0-4.8) k/uL Sodium 135 L (137-145) mmol/L Chloride 93 L (98-107) mmol/L Carbon Dioxide 33 H (22-30) mmol/L BUN 122 H* (7-17) mg/dL Creatinine 3.20 H (0.52-1.04) mg/dL Glucose 180 H (74-99) mg/dL POC Glucose (mg/dL) 216 H (75-99) mg/dL Total Protein 5.2 L (6.3-8.2) g/dL Albumin 2.8 L (3.5-5.0) g/dL 05/13/21 05/13/21 05/14/21 Range/Units 16:52 20:15 05:53 RBC (3.80-5.40) m/uL Hgb (11.4-16.0) gm/dL Hct (34.0-46.0) % RDW (11.5-15.5) % Lymphocytes # (Manual) (1.0-4.8) k/uL Sodium (137-145) mmol/L Chloride (98-107) mmol/L Carbon Dioxide (22-30) mmol/L BUN (7-17) mg/dL Creatinine (0.52-1.04) mg/dL Glucose (74-99) mg/dL POC Glucose (mg/dL) 229 H 177 H 175 H (75-99) mg/dL Total Protein (6.3-8.2) g/dL Albumin (3.5-5.0) g/dL Assessment and Plan Assessment: 1. Acute on chronic diastolic congestive heart failure 2. elevated troponin 3. Acute on chronic kidney disease 4. History of diabetes mellitus 5. History of hyperlipidemia 6. History of essential hypertension 7. History of coronary artery disease 8. History of cardiac arrhythmia with history of AICD and pacemaker placement 9. History of COPD 10. History of ongoing nicotine dependence DVT prophylaxis Lovenox. GI prophylaxis Protonix Cardiology and nephrology service is consulted Lasix DC'd. Torsemide decreased and metolazone DC'd per nephrology Repeat labs in a.m. Chest x-ray ordered for a.m.
[2021-05-14 16:55] LABS: Glucose,Whole Blood 238 mg/dL (75-99)
[2021-05-14 20:02] LABS: Glucose,Whole Blood 309 mg/dL (75-99)
[2021-05-14] MEDS: INSULIN DETEMIR (LEVEMIR) 100 UNIT/ML SYR SQ SCH (20:44)
[2021-05-14] MEDS: ATORVASTATIN 10 MG TAB PO SCH (20:44)
[2021-05-14] MEDS: TEMAZEPAM 15 MG CAP PO PRN (23:31)
[2021-05-15 05:58] LABS: Glucose,Whole Blood 165 mg/dL (75-99)
[2021-05-15] MEDS: INSULIN ASPART (NovoLOG) 100 UNIT/ML VIAL SQ SCH ×3 (06:25→17:06)
[2021-05-15] MEDS: carvediloL 6.25 MG TAB PO SCH ×2 (06:25→17:06)
[2021-05-15] MEDS: PANTOPRAZOLE 40 MG TABLET PO SCH (06:25)
[2021-05-15 08:34] LABS: HCT 29.1 % (34.0-46.0); HGB 9.2 gm/dL (11.4-16.0); Hypochromasia Slight; MCH 30.9 pg (25.0-35.0); MCHC 31.7 g/dL (31.0-37.0); MCV 97.4 fL (80.0-100.0); Macrocytosis Slight; Mean Platelet Volume 9.8; Platelet Count 166 k/uL (150-450); RBC 2.99 m/uL (3.80-5.40); WBC 5.5 k/uL (3.8-10.6)
[2021-05-15] MEDS: allopurinoL 100 MG TAB PO SCH (08:45)
[2021-05-15] MEDS: hydrALAZINE HCL 50 MG TAB PO SCH ×3 (08:46→20:38)
[2021-05-15] MEDS: MIRTAZAPINE 15 MG TAB PO SCH (08:46)
[2021-05-15] MEDS: ASPIRIN 81 MG PO SCH (08:46)
[2021-05-15] MEDS: ENOXAPARIN 30 MG/0.3 ML SYRINGE SQ SCH (08:46)
[2021-05-15] MEDS: TORSEMIDE 20 MG TAB PO SCH (08:46)
[2021-05-15 08:56] LABS: Calcium 8.9 mg/dL (8.4-10.2); Potassium 4.2 mmol/L (3.5-5.1); Total Bilirubin 0.2 mg/dL (0.2-1.3); Total Protein 5.6 g/dL (6.3-8.2)
[2021-05-15] MEDS: SODIUM FERRIC GLUCONAT-SUCROSE 125 MG in SODIUM CHLORIDE 0.9% 100 ML IVPB SCH (09:09)
[2021-05-15 11:40] LABS: Glucose,Whole Blood 212 mg/dL (75-99)
[2021-05-15 11:44] LABS: Eosinophils # (M) 0.44 k/uL (0-0.7); Lymphocytes # (M) 0.77 k/uL (1.0-4.8); Monocytes # (M) 0.33 k/uL (0-1.0); Neutrophils # (M) 3.96 k/uL (1.3-7.7); Neutrophils % (M) 72 %; Nucleated Red Blood Cells 0 /100 WBC (0-0); Total Cells Counted 100
--- NOTE | 2021-05-15 14:23 | PN ---
PROGRESS NOTE Patient is seen for followup for acute kidney injury on top of chronic kidney disease. The patient was admitted with congestive heart failure exacerbation and volume overload, acute on top of chronic diastolic heart failure. She has been diuresed. Volume status has improved but BUN is significantly elevated at 134 today. Torsemide was decreased yesterday. The patient's weight has progressively decreased over the last 4-5 days with 6 kg less since 05/12/2021. PHYSICAL EXAMINATION: On examination today, blood pressure was 137/67, heart rate 62 per minute, she is afebrile. Examination of the heart S1, S2. Examination of lungs, decreased breath sounds at the bases. Abdomen is soft, nontender, obese. Exam of lower extremities shows trace edema bilaterally. DIGITAL AD TRAFFICKER exam grossly intact. LAB: Show sodium 135, potassium 4.2, chloride 92, CO2 is 33, BUN 134, creatinine 3.07, hemoglobin 9.2 g/dL. ASSESSMENT: 1. Acute kidney injury, cardiorenal, BUN disproportionately elevated secondary to recent diuresis. I will hold the torsemide today. The patient has been talked to regarding the possibility of dialysis again. However, she is quite reluctant for that. Hopefully she will not need it this admission. 2. Volume overload, currently improved. 3. Acute on top of chronic diastolic heart failure, currently improved. 4. Chronic kidney disease stage 4 with baseline creatinine around 2.3-2.7 mg/dL. 5. Anemia of chronic disease. PLAN: Hold torsemide today. Repeat labs in a.m. No need for renal replacement therapy yet. MMODL / IJN: [id number] /
[2021-05-15 16:55] LABS: Glucose,Whole Blood 209 mg/dL (75-99)
--- NOTE | 2021-05-15 19:14 | P.PN ---
Subjective Progress Note Date: 05/15/21 Elza Avery is a 81-year-old female patient of Dr. Ward who presented with progressive been worsening shortness of breath and increased edema to lower extremities over the past 2 weeks. Patient has a significant past medical history for chronic hypoxic respiratory failure on 3 L, diabetes mellitus, hy pertension, COPD, chronic kidney disease, CAD with coronary artery bypass graft surgery, pacemaker insertion and chronic diastolic congestive heart failure. Chest x-ray completed in ER showing findings suggestive with congestive heart failure small basilar effusions follow-up is recommended area patient also elevated troponin 0.078. BNP elevated 38,300. At this time patient has been started on IV Lasix. Cardiology services have been consulted. 2-D echo has been ordered. Patient is currently resting comfortably in bed. Patient reports slight improvement with shortness of breath. Patient complains of shortness of breath with activity. Patient denies chest pain. Patient denies nausea vomiting or diarrhea. Patient denies any urinary burning or frequency On 05/10/2021 Patient was seen and examined on the medical floor, she is alert and oriented x 3 in no distress, she is still complaining of shortness of breath otherwise she denies any complaints there is no fever or chills no headache or dizziness no chest pain no palpitation no cough no nausea or vomiting no abdominal pain no diarrhea no blood in the stools no burning with urination no frequency or urgency and no hematuria, there is no weakness or numbness in any of the extremities no change in vision speech or gait. On 05/11/2021 patient alert and oriented times 3. Patient is still complaining of some shortness of breath. Patient remains on IV Lasix 40 every 12. Nephrology and cardiology services are consulted. Weight down 97 kg just 96.5. Creatinine slightly increased to 2.89 bun 96. Patient denies chest pain. Patient denies nausea vomiting or diarrhea. Patient denies any urinary burning or frequency On 05/12/2021 patient was seen and examined on the telemetry floor, she is still complaining of shortness of breath especially with activity, otherwise she denies any complaints there is no fever or chills no headache or dizziness no chest pain no palpitation no cough no nausea or vomiting no abdominal pain no diarrhea no blood in the stools no burning with urination no frequency or urgency and no hematuria. On 05/13/2021 patient is alert and oriented 3. Creatinine 3.20 and bun 122. Per nephrology services plan to decrease torsemide from 80-40. Metabolic bone DC'd. Repeat labs in a.m. At this time patient denies chest pain or shortness of breath. Patient denies nausea vomiting or diarrhea. Patient denies any urinary burning or frequency On 05/14/2021 Patient was seen and examined on the medical floor, she is alert and oriented x 3 in no distress, she is still complaining of shortness of breath otherwise she denies any complaints there is no fever or chills no headache or dizziness no chest pain no palpitation no cough no nausea or vomiting no abdominal pain no diarrhea no blood in the stools no burning with urination no frequency or urgency and no hematuria, there is no weakness or numbness in any of the extremities no change in vision speech or gait. On 05/15/2021 patient was seen and examined on the telemetry floor she is still complaining of shortness of breath otherwise she denies any complaints , there is no fever or chills no headache or dizziness no chest pain, no palpitation no cough no nausea or vomiting no abdominal pain no diarrhea no blood in the stools no burning with urination no frequency or urgency and no hematuria, there is no weakness or numbness in any of the extremities no change in vision speech or gait. Input from cardiology and nephrology reviewed Objective - Vital Signs Vital signs: Vital Signs Temp 98.5 F 05/15/21 11:49 Pulse 62 05/15/21 11:49 Resp 18 05/15/21 11:49 BP 137/67 05/15/21 11:49 Pulse Ox 96 05/15/21 11:49 Intake & Output 05/14/21 05/15/21 05/15/21 18:59 06:59 18:59 Intake Total 720 240 Output Total 450 660 Balance 270 -660 240 Weight 91.6 kg Intake: Oral 720 240 Output: Urine 450 660 Other: Voiding Method External Catheter External Catheter # Voids 1 # Bowel Movements 1 - Exam In general patient is alert and oriented x 3 in no distress HEENT head normocephalic and atraumatic Neck is supple no JVD no goiter no lymphadenopathy no carotid bruit Chest examination reveals a scattered crackles in both bases no wheezing Cardiac exam reveals regular heart sounds S1 and S2 no gallops no murmurs Abdomen is soft nontender no organomegaly with normal bowel sounds Extremity exam reveals 1+ edema no cyanosis or clubbing Neurological examination reveals no gross focal deficits - Labs CBC & Chem 7: 05/15/21 07:55 05/15/21 07:55 Labs: Abnormal Lab Results - Last 24 Hours (Table) 05/14/21 05/14/21 05/15/21 Range/Units 16:43 20:01 05:57 RBC (3.80-5.40) m/uL Hgb (11.4-16.0) gm/dL Hct (34.0-46.0) % RDW (11.5-15.5) % Lymphocytes # (Manual) (1.0-4.8) k/uL Sodium (137-145) mmol/L Chloride (98-107) mmol/L Carbon Dioxide (22-30) mmol/L BUN (7-17) mg/dL Creatinine (0.52-1.04) mg/dL Glucose (74-99) mg/dL POC Glucose (mg/dL) 238 H 309 H 165 H (75-99) mg/dL Total Protein (6.3-8.2) g/dL Albumin (3.5-5.0) g/dL 05/15/21 05/15/21 05/15/21 Range/Units 07:55 07:55 11:38 RBC 2.99 L (3.80-5.40) m/uL Hgb 9.2 L (11.4-16.0) gm/dL Hct 29.1 L (34.0-46.0) % RDW 16.0 H (11.5-15.5) % Lymphocytes # (Manual) 0.77 L (1.0-4.8) k/uL Sodium 135 L (137-145) mmol/L Chloride 92 L (98-107) mmol/L Carbon Dioxide 33 H (22-30) mmol/L BUN 134 H* (7-17) mg/dL Creatinine 3.07 H (0.52-1.04) mg/dL Glucose 197 H (74-99) mg/dL POC Glucose (mg/dL) 212 H (75-99) mg/dL Total Protein 5.6 L (6.3-8.2) g/dL Albumin 3.0 L (3.5-5.0) g/dL Assessment and Plan Assessment: 1. Acute on chronic diastolic congestive heart failure 2. elevated troponin 3. Acute on chronic kidney disease 4. History of diabetes mellitus 5. History of hyperlipidemia 6. History of essential hypertension 7. History of coronary artery disease 8. History of cardiac arrhythmia with history of AICD and pacemaker placement 9. History of COPD 10. History of ongoing nicotine dependence DVT prophylaxis Lovenox. GI prophylaxis Protonix Cardiology and nephrology service is consulted Lasix DC'd. Torsemide decreased and metolazone DC'd per nephrology Repeat labs in a.m. Chest x-ray ordered for a.m.
[2021-05-15 20:12] LABS: Glucose,Whole Blood 290 mg/dL (75-99)
[2021-05-15] MEDS: ATORVASTATIN 10 MG TAB PO SCH (20:38)
[2021-05-15] MEDS: INSULIN DETEMIR (LEVEMIR) 100 UNIT/ML SYR SQ SCH (20:38)
[2021-05-15] MEDS: TEMAZEPAM 15 MG CAP PO PRN (23:59)
[2021-05-16 06:04] LABS: Glucose,Whole Blood 190 mg/dL (75-99)
[2021-05-16] MEDS: INSULIN ASPART (NovoLOG) 100 UNIT/ML VIAL SQ SCH ×3 (06:28→18:08)
[2021-05-16] MEDS: PANTOPRAZOLE 40 MG TABLET PO SCH (06:28)
[2021-05-16] MEDS: carvediloL 6.25 MG TAB PO SCH ×2 (06:28→18:08)
[2021-05-16] MEDS: SODIUM FERRIC GLUCONAT-SUCROSE 125 MG in SODIUM CHLORIDE 0.9% 100 ML IVPB SCH (08:37)
[2021-05-16] MEDS: ASPIRIN 81 MG PO SCH (08:37)
[2021-05-16] MEDS: hydrALAZINE HCL 50 MG TAB PO SCH ×3 (08:37→22:18)
[2021-05-16] MEDS: MIRTAZAPINE 15 MG TAB PO SCH (08:38)
[2021-05-16] MEDS: ENOXAPARIN 30 MG/0.3 ML SYRINGE SQ SCH (08:38)
[2021-05-16] MEDS: allopurinoL 100 MG TAB PO SCH (08:38)
[2021-05-16 10:20] LABS: HGB 8.7 gm/dL (11.4-16.0); MCH 31.3 pg (25.0-35.0); MCHC 32.4 g/dL (31.0-37.0); MCV 96.6 fL (80.0-100.0); Mean Platelet Volume 9.9; Platelet Count 137 k/uL (150-450); RDW 15.5 % (11.5-15.5); WBC 4.6 k/uL (3.8-10.6)
[2021-05-16 10:58] LABS: Albumin 2.8 g/dL (3.5-5.0); Calcium 8.6 mg/dL (8.4-10.2); Potassium 4.1 mmol/L (3.5-5.1); Total Bilirubin 0.2 mg/dL (0.2-1.3); Total Protein 5.2 g/dL (6.3-8.2)
[2021-05-16 12:02] LABS: Glucose,Whole Blood 181 mg/dL (75-99)
[2021-05-16] MEDS: SODIUM CHLORIDE 0.9% 1,000 ML IV SCH ×2 (12:31→22:18)
[2021-05-16 13:08] LABS: Eosinophils # (M) 0.41 k/uL (0-0.7); Lymphocytes # (M) 0.64 k/uL (1.0-4.8); Monocytes # (M) 0.18 k/uL (0-1.0); Neutrophils # (M) 3.36 k/uL (1.3-7.7); Neutrophils % (M) 73 %; Nucleated Red Blood Cells 0 /100 WBC (0-0); Total Cells Counted 100
--- NOTE | 2021-05-16 13:51 | PN ---
PROGRESS NOTE Patient is seen for followup for chronic kidney disease and acute kidney injury. The patient's volume status has improved. However, her BUN is significantly elevated now to 150. Diuretics were held yesterday. Overall, patient states she is feeling fair. Denies any chest pains or shortness of breath. She denies nausea, vomiting. I have discussed renal replacement therapy again with the patient. She is reluctant although she states that if she needs to she will agree to it. PHYSICAL EXAMINATION: Blood pressure is 122/63, heart rate 62 per minute. She is afebrile. Examination of the heart S1, S2. Examination of the lungs, bilateral breath sounds are heard. Abdomen: Soft, nontender, obese. Examination of lower extremities shows chronic edema. 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 LAB: Show sodium 134, potassium 4.1, BUN 150, serum creatinine 3.2, hemoglobin 8.7 g/dL. ASSESSMENT: 1. Acute kidney injury cardiorenal associated with recent diuresis. BUN is up to 150. Diuretics are on hold. I will add IV fluids and recheck labs in a.m. If patient's volume status worsens and she has worsening shortness of breath and worsening renal function. She will need to resume dialysis. 2. Congestive heart failure acute on top of chronic diastolic currently improved. 3. Chronic kidney disease, mineral bone disorder. 4. Disproportionately elevated BUN associated with recent diuresis and congestive heart failure. The patient is not on steroids. 5. Chronic kidney disease, stage 4. Baseline creatinine 2.3-2.7 mg/dL secondary to cardiorenal syndrome nephrosclerosis. 6. Anemia of chronic disease with iron deficiency maintained on IV iron, which I will discontinue and we will continue with the Aranesp. PLAN: Discontinue IV iron. Add IV fluids. Continue Aranesp. Repeat labs in a.m. If renal function continues to deteriorate or patient develops worsening CHF, she will need to restart dialysis. MMODL / IJN: [id number] /
[2021-05-16 17:00] LABS: Glucose,Whole Blood 204 mg/dL (75-99)
--- NOTE | 2021-05-16 17:40 | P.PN ---
Subjective Progress Note Date: 05/16/21 Elza Avery is a 81-year-old female patient of Dr. Ward who presented with progressive been worsening shortness of breath and increased edema to lower extremities over the past 2 weeks. Patient has a significant past medical history for chronic hypoxic respiratory failure on 3 L, diabetes mellitus, hy pertension, COPD, chronic kidney disease, CAD with coronary artery bypass graft surgery, pacemaker insertion and chronic diastolic congestive heart failure. Chest x-ray completed in ER showing findings suggestive with congestive heart failure small basilar effusions follow-up is recommended area patient also elevated troponin 0.078. BNP elevated 38,300. At this time patient has been started on IV Lasix. Cardiology services have been consulted. 2-D echo has been ordered. Patient is currently resting comfortably in bed. Patient reports slight improvement with shortness of breath. Patient complains of shortness of breath with activity. Patient denies chest pain. Patient denies nausea vomiting or diarrhea. Patient denies any urinary burning or frequency On 05/10/2021 Patient was seen and examined on the medical floor, she is alert and oriented x 3 in no distress, she is still complaining of shortness of breath otherwise she denies any complaints there is no fever or chills no headache or dizziness no chest pain no palpitation no cough no nausea or vomiting no abdominal pain no diarrhea no blood in the stools no burning with urination no frequency or urgency and no hematuria, there is no weakness or numbness in any of the extremities no change in vision speech or gait. On 05/11/2021 patient alert and oriented times 3. Patient is still complaining of some shortness of breath. Patient remains on IV Lasix 40 every 12. Nephrology and cardiology services are consulted. Weight down 97 kg just 96.5. Creatinine slightly increased to 2.89 bun 96. Patient denies chest pain. Patient denies nausea vomiting or diarrhea. Patient denies any urinary burning or frequency On 05/12/2021 patient was seen and examined on the telemetry floor, she is still complaining of shortness of breath especially with activity, otherwise she denies any complaints there is no fever or chills no headache or dizziness no chest pain no palpitation no cough no nausea or vomiting no abdominal pain no diarrhea no blood in the stools no burning with urination no frequency or urgency and no hematuria. On 05/13/2021 patient is alert and oriented 3. Creatinine 3.20 and bun 122. Per nephrology services plan to decrease torsemide from 80-40. Metabolic bone DC'd. Repeat labs in a.m. At this time patient denies chest pain or shortness of breath. Patient denies nausea vomiting or diarrhea. Patient denies any urinary burning or frequency On 05/14/2021 Patient was seen and examined on the medical floor, she is alert and oriented x 3 in no distress, she is still complaining of shortness of breath otherwise she denies any complaints there is no fever or chills no headache or dizziness no chest pain no palpitation no cough no nausea or vomiting no abdominal pain no diarrhea no blood in the stools no burning with urination no frequency or urgency and no hematuria, there is no weakness or numbness in any of the extremities no change in vision speech or gait. On 05/15/2021 patient was seen and examined on the telemetry floor she is still complaining of shortness of breath otherwise she denies any complaints , there is no fever or chills no headache or dizziness no chest pain, no palpitation no cough no nausea or vomiting no abdominal pain no diarrhea no blood in the stools no burning with urination no frequency or urgency and no hematuria, there is no weakness or numbness in any of the extremities no change in vision speech or gait. Input from cardiology and nephrology reviewed On 05/16/2021 patient was seen and examined on the telemetry floor she is still complaining of shortness of breath but somewhat less then yesterday, otherwise no complaints there is no fever or chills no headache or dizziness no chest pain, no palpitation no cough no nausea or vomiting no abdominal pain no diarrhea no blood in the stools no burning with urination no frequency or ur gency and no hematuria, there is no weakness or numbness in any of the extremities no change in vision speech or gait. Input from cardiology and nephrology reviewed Objective - Vital Signs Vital signs: Vital Signs Temp 97.9 F 05/16/21 04:00 Pulse 69 05/16/21 04:00 Resp 18 05/16/21 04:00 BP 133/63 05/16/21 04:00 Pulse Ox 98 05/16/21 04:00 Intake & Output 05/15/21 05/16/21 05/16/21 18:59 06:59 18:59 Intake Total 477 240 Output Total 200 Balance 477 -200 240 Weight 92.4 kg Intake: Oral 477 240 Output: Urine 200 Other: Voiding Method Toilet # Voids 1 - Exam In general patient is alert and oriented x 3 in no distress HEENT head normocephalic and atraumatic Neck is supple no JVD no goiter no lymphadenopathy no carotid bruit Chest examination reveals a scattered crackles in both bases no wheezing Cardiac exam reveals regular heart sounds S1 and S2 no gallops no murmurs Abdomen is soft nontender no organomegaly with normal bowel sounds Extremity exam reveals 1+ edema no cyanosis or clubbing Neurological examination reveals no gross focal deficits - Labs CBC & Chem 7: 05/16/21 09:48 05/16/21 09:48 Labs: Abnormal Lab Results - Last 24 Hours (Table) 05/15/21 05/15/21 05/15/21 Range/Units 07:55 11:38 16:54 Lymphocytes # (Manual) 0.77 L (1.0-4.8) k/uL POC Glucose (mg/dL) 212 H 209 H (75-99) mg/dL 05/15/21 05/16/21 Range/Units 20:10 06:01 Lymphocytes # (Manual) (1.0-4.8) k/uL POC Glucose (mg/dL) 290 H 190 H (75-99) mg/dL Assessment and Plan Assessment: 1. Acute on chronic diastolic congestive heart failure 2. elevated troponin 3. Acute on chronic kidney disease 4. History of diabetes mellitus 5. History of hyperlipidemia 6. History of essential hypertension 7. History of coronary artery disease 8. History of cardiac arrhythmia with history of AICD and pacemaker placement 9. History of COPD 10. History of ongoing nicotine dependence DVT prophylaxis Lovenox. GI prophylaxis Protonix Cardiology and nephrology service is consulted Lasix DC'd. Torsemide decreased and metolazone DC'd per nephrology Repeat labs in a.m. Chest x-ray ordered for a.m.
[2021-05-16 20:30] LABS: Glucose,Whole Blood 319 mg/dL (75-99)
[2021-05-16] MEDS: ATORVASTATIN 10 MG TAB PO SCH (21:38)
[2021-05-16] MEDS: INSULIN DETEMIR (LEVEMIR) 100 UNIT/ML SYR SQ SCH (21:38)
[2021-05-16] MEDS: TEMAZEPAM 15 MG CAP PO PRN (22:18)
[2021-05-17 06:21] LABS: Glucose,Whole Blood 224 mg/dL (75-99)
[2021-05-17] MEDS: PANTOPRAZOLE 40 MG TABLET PO SCH (06:25)
[2021-05-17] MEDS: carvediloL 6.25 MG TAB PO SCH ×2 (06:25→17:37)
[2021-05-17] MEDS: INSULIN ASPART (NovoLOG) 100 UNIT/ML VIAL SQ SCH ×3 (06:26→17:37)
[2021-05-17 08:39] LABS: Anisocytosis Slight; HCT 26.1 % (34.0-46.0); HGB 8.2 gm/dL (11.4-16.0); Hypochromasia Slight; MCH 30.6 pg (25.0-35.0); MCHC 31.4 g/dL (31.0-37.0); MCV 97.5 fL (80.0-100.0); Macrocytosis Slight; Mean Platelet Volume 9.5; Platelet Count 155 k/uL (150-450); RBC 2.67 m/uL (3.80-5.40); RDW 16.4 % (11.5-15.5); WBC 4.3 k/uL (3.8-10.6)
[2021-05-17] MEDS: hydrALAZINE HCL 50 MG TAB PO SCH ×3 (08:55→21:18)
[2021-05-17] MEDS: ENOXAPARIN 30 MG/0.3 ML SYRINGE SQ SCH (08:55)
[2021-05-17] MEDS: ASPIRIN 81 MG PO SCH (08:55)
[2021-05-17] MEDS: allopurinoL 100 MG TAB PO SCH (08:55)
[2021-05-17] MEDS: MIRTAZAPINE 15 MG TAB PO SCH (08:55)
[2021-05-17 09:43] LABS: Band Neutrophils % 1 %; Basophils # (M) 0.04 k/uL (0-0.2); Lymphocytes # (M) 0.86 k/uL (1.0-4.8); Monocytes # (M) 0.26 k/uL (0-1.0); Neutrophils % (M) 65 %; Nucleated Red Blood Cells 0 /100 WBC (0-0); Poikilocytosis (M) Present; Total Cells Counted 100
[2021-05-17 11:16] LABS: Potassium 4.3 mmol/L (3.5-5.1)
[2021-05-17 11:17] LABS: Albumin 2.8 g/dL (3.5-5.0); Calcium 8.9 mg/dL (8.4-10.2); Total Bilirubin 0.2 mg/dL (0.2-1.3); Total Protein 5.2 g/dL (6.3-8.2)
[2021-05-17 11:44] LABS: Glucose,Whole Blood 227 mg/dL (75-99)
--- NOTE | 2021-05-17 13:19 | PN ---
PROGRESS NOTE The patient is seen for followup for acute kidney injury on top of chronic kidney disease. The patient was admitted to the hospital with volume overload. She was diuresed and her BUN increase significantly up to 150 yesterday. Patient was started on IV fluids yesterday. She has tolerated it well with improvement in her BUN down to 144. Serum creatinine staying at about 3 mg/dL. Patient's volume status did not get worse and she is not short of breath. I have discussed renal replacement therapy with her and she is reluctant. Patient does have a history of dialysis for about 2-3 months about a year ago, but she was able to come off dialysis. PHYSICAL EXAMINATION: On examination today, blood pressure 114/54, heart rate 62 per minute. She is afebrile. Examination of the heart S1, S2. Examination of the lungs, bilateral breath sounds are heard. Abdomen is soft, nontender. Examination of lower extremities shows chronic lower extremity edema. No significant changes. 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 LAB: Show sodium 137, potassium 4.3, chloride 100, CO2 is 28, BUN 144, creatinine 3.14, hemoglobin 8.2. ASSESSMENT: 1. Acute kidney injury associated with cardiorenal syndrome and recent diuresis with disproportionately elevated BUN secondary to recent diuresis. Patient was started on IV fluids yesterday as BUN was as high as 150. Serum creatinine remains stable. She is tolerating IV fluids and I will continue with IV fluids for another 24 hours. No need for starting dialysis at this point. 2. Anemia of chronic disease maintained on Aranesp. 3. Congestive heart failure, acute on top of chronic, mostly diastolic, currently improved. 4. Hypervolemia, now improved. 5. Hypertension, fairly stable. PLAN: Continue with IV fluids for another 24 hours. No need for renal replacement therapy at this time. MMODL / IJN: [id number] /
[2021-05-17] MEDS: DARBEPOETIN ALFA 40 MCG/0.4 ML SYRINGE SQ SCH (15:11)
[2021-05-17 17:01] LABS: Glucose,Whole Blood 254 mg/dL (75-99)
--- NOTE | 2021-05-17 17:15 | P.PN ---
Subjective Progress Note Date: 05/17/21 Elza Avery is a 81-year-old female patient of Dr. Ward who presented with progressive been worsening shortness of breath and increased edema to lower extremities over the past 2 weeks. Patient has a significant past medical history for chronic hypoxic respiratory failure on 3 L, diabetes mellitus, hy pertension, COPD, chronic kidney disease, CAD with coronary artery bypass graft surgery, pacemaker insertion and chronic diastolic congestive heart failure. Chest x-ray completed in ER showing findings suggestive with congestive heart failure small basilar effusions follow-up is recommended area patient also elevated troponin 0.078. BNP elevated 38,300. At this time patient has been started on IV Lasix. Cardiology services have been consulted. 2-D echo has been ordered. Patient is currently resting comfortably in bed. Patient reports slight improvement with shortness of breath. Patient complains of shortness of breath with activity. Patient denies chest pain. Patient denies nausea vomiting or diarrhea. Patient denies any urinary burning or frequency On 05/10/2021 Patient was seen and examined on the medical floor, she is alert and oriented x 3 in no distress, she is still complaining of shortness of breath otherwise she denies any complaints there is no fever or chills no headache or dizziness no chest pain no palpitation no cough no nausea or vomiting no abdominal pain no diarrhea no blood in the stools no burning with urination no frequency or urgency and no hematuria, there is no weakness or numbness in any of the extremities no change in vision speech or gait. On 05/11/2021 patient alert and oriented times 3. Patient is still complaining of some shortness of breath. Patient remains on IV Lasix 40 every 12. Nephrology and cardiology services are consulted. Weight down 97 kg just 96.5. Creatinine slightly increased to 2.89 bun 96. Patient denies chest pain. Patient denies nausea vomiting or diarrhea. Patient denies any urinary burning or frequency On 05/12/2021 patient was seen and examined on the telemetry floor, she is still complaining of shortness of breath especially with activity, otherwise she denies any complaints there is no fever or chills no headache or dizziness no chest pain no palpitation no cough no nausea or vomiting no abdominal pain no diarrhea no blood in the stools no burning with urination no frequency or urgency and no hematuria. On 05/13/2021 patient is alert and oriented 3. Creatinine 3.20 and bun 122. Per nephrology services plan to decrease torsemide from 80-40. Metabolic bone DC'd. Repeat labs in a.m. At this time patient denies chest pain or shortness of breath. Patient denies nausea vomiting or diarrhea. Patient denies any urinary burning or frequency On 05/14/2021 Patient was seen and examined on the medical floor, she is alert and oriented x 3 in no distress, she is still complaining of shortness of breath otherwise she denies any complaints there is no fever or chills no headache or dizziness no chest pain no palpitation no cough no nausea or vomiting no abdominal pain no diarrhea no blood in the stools no burning with urination no frequency or urgency and no hematuria, there is no weakness or numbness in any of the extremities no change in vision speech or gait. On 05/15/2021 patient was seen and examined on the telemetry floor she is still complaining of shortness of breath otherwise she denies any complaints , there is no fever or chills no headache or dizziness no chest pain, no palpitation no cough no nausea or vomiting no abdominal pain no diarrhea no blood in the stools no burning with urination no frequency or urgency and no hematuria, there is no weakness or numbness in any of the extremities no change in vision speech or gait. Input from cardiology and nephrology reviewed On 05/16/2021 patient was seen and examined on the telemetry floor she is still complaining of shortness of breath but somewhat less then yesterday, otherwise no complaints there is no fever or chills no headache or dizziness no chest pain, no palpitation no cough no nausea or vomiting no abdominal pain no diarrhea no blood in the stools no burning with urination no frequency or ur gency and no hematuria, there is no weakness or numbness in any of the extremities no change in vision speech or gait. Input from cardiology and nephrology reviewed On 05/17/2021 Patient is improving gradually, she is still complaining of shortness of breath otherwise she denies any complaints there is no fever or chills no headache or dizziness no chest pain no palpitation no cough no nausea or vomiting no abdominal pain no diarrhea no blood in the stools no burning with urination no frequency or urgency and no hematuria, there is no weakness or numbness in any of the extremities no change in vision speech or gait. Objective - Vital Signs Vital signs: Vital Signs Temp 98.1 F 05/17/21 15:36 Pulse 60 05/17/21 15:36 Resp 18 05/17/21 15:36 BP 170/63 05/17/21 15:36 Pulse Ox 98 05/17/21 15:36 Intake & Output 05/16/21 05/17/21 05/17/21 18:59 06:59 18:59 Intake Total 720 780 Output Total 300 Balance 720 -300 780 Weight 93.1 kg Intake: Oral 720 780 Output: Urine 300 Other: Voiding Method Toilet Toilet External Catheter External Catheter # Voids 1 1 # Bowel Movements 1 - Exam In general patient is alert and oriented x 3 in no distress HEENT head normocephalic and atraumatic Neck is supple no JVD no goiter no lymphadenopathy no carotid bruit Chest examination reveals a scattered crackles in both bases no wheezing Cardiac exam reveals regular heart sounds S1 and S2 no gallops no murmurs Abdomen is soft nontender no organomegaly with normal bowel sounds Extremity exam reveals 1+ edema no cyanosis or clubbing Neurological examination reveals no gross focal deficits - Labs CBC & Chem 7: 05/17/21 08:20 05/17/21 08:20 Labs: Abnormal Lab Results - Last 24 Hours (Table) 05/16/21 05/17/21 05/17/21 Range/Units 20:29 06:19 08:20 RBC 2.67 L (3.80-5.40) m/uL Hgb 8.2 L (11.4-16.0) gm/dL Hct 26.1 L (34.0-46.0) % RDW 16.4 H (11.5-15.5) % Lymphocytes # (Manual) 0.86 L (1.0-4.8) k/uL BUN (7-17) mg/dL Creatinine (0.52-1.04) mg/dL Glucose (74-99) mg/dL POC Glucose (mg/dL) 319 H 224 H (75-99) mg/dL Total Protein (6.3-8.2) g/dL Albumin (3.5-5.0) g/dL 05/17/21 05/17/21 05/17/21 Range/Units 08:20 11:43 17:00 RBC (3.80-5.40) m/uL Hgb (11.4-16.0) gm/dL Hct (34.0-46.0) % RDW (11.5-15.5) % Lymphocytes # (Manual) (1.0-4.8) k/uL BUN 144 H* (7-17) mg/dL Creatinine 3.14 H (0.52-1.04) mg/dL Glucose 207 H (74-99) mg/dL POC Glucose (mg/dL) 227 H 254 H (75-99) mg/dL Total Protein 5.2 L (6.3-8.2) g/dL Albumin 2.8 L (3.5-5.0) g/dL Assessment and Plan Assessment: 1. Acute on chronic diastolic congestive heart failure 2. elevated troponin 3. Acute on chronic kidney disease 4. History of diabetes mellitus 5. History of hyperlipidemia 6. History of essential hypertension 7. History of coronary artery disease 8. History of cardiac arrhythmia with history of AICD and pacemaker placement 9. History of COPD 10. History of ongoing nicotine dependence DVT prophylaxis Lovenox. GI prophylaxis Protonix Cardiology and nephrology service is consulted Lasix DC'd. Torsemide decreased and metolazone DC'd per nephrology Repeat labs in a.m. Chest x-ray ordered for a.m.
[2021-05-17] MEDS: SODIUM CHLORIDE 0.9% 1,000 ML IV SCH (17:37)
[2021-05-17 20:15] LABS: Glucose,Whole Blood 373 mg/dL (75-99)
[2021-05-17] MEDS: ATORVASTATIN 10 MG TAB PO SCH (21:18)
[2021-05-17] MEDS: INSULIN DETEMIR (LEVEMIR) 100 UNIT/ML SYR SQ SCH (21:18)
[2021-05-17] MEDS: TEMAZEPAM 15 MG CAP PO PRN (22:41)
[2021-05-18] MEDS: SODIUM CHLORIDE 0.9% 1,000 ML IV SCH ×3 (05:55→21:17)
[2021-05-18 06:02] LABS: Glucose,Whole Blood 249 mg/dL (75-99)
[2021-05-18] MEDS: INSULIN ASPART (NovoLOG) 100 UNIT/ML VIAL SQ SCH ×3 (06:12→17:21)
[2021-05-18] MEDS: PANTOPRAZOLE 40 MG TABLET PO SCH (06:12)
[2021-05-18] MEDS: carvediloL 6.25 MG TAB PO SCH ×2 (06:12→17:22)
[2021-05-18] MEDS: ENOXAPARIN 30 MG/0.3 ML SYRINGE SQ SCH (08:57)
[2021-05-18] MEDS: ASPIRIN 81 MG PO SCH (08:57)
[2021-05-18] MEDS: hydrALAZINE HCL 50 MG TAB PO SCH ×3 (08:57→21:17)
[2021-05-18] MEDS: allopurinoL 100 MG TAB PO SCH (08:57)
[2021-05-18] MEDS: MIRTAZAPINE 15 MG TAB PO SCH (08:57)
--- NOTE | 2021-05-18 10:00 | P.PN ---
Subjective Progress Note Date: 05/18/21 Principal diagnosis: This is an 81-year-old female known to us with chronic kidney disease who was admitted with cardiorenal syndrome and shortness of breath. She was diuresed. Her creatinine went up. She was then started on IV fluids. Her creatinine in the past has been in the 2.5-4 range. On admission here on 05/08/2021 creatinine was 2.64 and currently is at 3.14. She is off of diuretics on IV fluids. Blood pressure and vital signs are stable. Urine output is documented at 300 cc only. She remains on nasal cannula oxygen tired and weak. She has been reluctant to accept renal replacement therapy. The past she's had dialysis for a few months sometimes in the past about a year ago She is known with coronary artery disease. Objective - Vital Signs Vital signs: Vital Signs Temp 98.4 F 05/18/21 09:01 Pulse 61 05/18/21 09:01 Resp 16 05/18/21 09:01 BP 119/54 05/18/21 09:01 Pulse Ox 98 05/18/21 09:01 Intake & Output 05/17/21 05/18/21 05/18/21 18:59 06:59 18:59 Intake Total 1020 480 Output Total 300 Balance 1020 -300 480 Weight 94.8 kg Intake: Oral 1020 480 Output: Urine 300 Other: Voiding Method Toilet External Catheter External Catheter External Catheter # Voids 1 1 # Bowel Movements 1 On examination she is awake alert but tired and weak depressed. HEENT exam no JVP neck is supple no facial asymmetry Lungs are clear to auscultation with fair air entry bilaterally. Heart sounds unremarkable for any murmur rub gallop Abdomen soft nontender. Extremity exam was trace edema Neurologically awake alert oriented but profoundly weak. - Labs CBC & Chem 7: 05/17/21 08:20 05/17/21 08:20 Labs: Abnormal Lab Results - Last 24 Hours (Table) 05/17/21 05/17/21 05/17/21 Range/Units 08:20 08:20 11:43 Lymphocytes # (Manual) 0.86 L (1.0-4.8) k/uL BUN 144 H* (7-17) mg/dL Creatinine 3.14 H (0.52-1.04) mg/dL Glucose 207 H (74-99) mg/dL POC Glucose (mg/dL) 227 H (75-99) mg/dL Total Protein 5.2 L (6.3-8.2) g/dL Albumin 2.8 L (3.5-5.0) g/dL 05/17/21 05/17/21 05/18/21 Range/Units 17:00 20:14 06:01 Lymphocytes # (Manual) (1.0-4.8) k/uL BUN (7-17) mg/dL Creatinine (0.52-1.04) mg/dL Glucose (74-99) mg/dL POC Glucose (mg/dL) 254 H 373 H 249 H (75-99) mg/dL Total Protein (6.3-8.2) g/dL Albumin (3.5-5.0) g/dL Assessment and Plan Assessment: Impression 1. Chronic kidney disease stage III. with diabetic nephropathy and nephrosclerosis. Baseline creatinine 2.5-4. Previously was on dialysis for a short time may be a year ago for a few weeks 2. Acute kidney injury from cardiac renal syndrome creatinine had improved to 2.5 from 2.8 but went up again. She was started on IV fluids and the diuretics were discontinued. Creatinine continues to remain high. Was 3.2 yesterday and 3.14 this morning. BUN is 144 down from 150 yesterday. Clinically not doing well performed a week. 3. Iron deficiency anemia. Hemoglobin is 8.2 saturation was 7% dated 10/2020 status post IV iron. 4. Echocardiogram shows 50% ejection fraction. No significant valvular abnormalities noted Recommendation 1. Long discussion held regarding dialysis including peritoneal dialysis and hemodialysis. She does have a daughter about age 50 and her lives with her and could be trained possibly. She continues to be reluctant to start on dialysis. I told her that the best option would be to give her the trial and if she doesn't like it and she can always discontinue it and go on for hospice care 2. In the meantime continue IV fluids under careful monitoring 3. Check labs tomorrow 4. I have recommended that she make a decision by tomorrow regarding dialysis.
[2021-05-18 11:51] LABS: Glucose,Whole Blood 285 mg/dL (75-99)
--- NOTE | 2021-05-18 13:24 | P.PN ---
Subjective Progress Note Date: 05/18/21 Elza Avery is a 81-year-old female patient of Dr. Ward who presented with progressive been worsening shortness of breath and increased edema to lower extremities over the past 2 weeks. Patient has a significant past medical history for chronic hypoxic respiratory failure on 3 L, diabetes mellitus, hy pertension, COPD, chronic kidney disease, CAD with coronary artery bypass graft surgery, pacemaker insertion and chronic diastolic congestive heart failure. Chest x-ray completed in ER showing findings suggestive with congestive heart failure small basilar effusions follow-up is recommended area patient also elevated troponin 0.078. BNP elevated 38,300. At this time patient has been started on IV Lasix. Cardiology services have been consulted. 2-D echo has been ordered. Patient is currently resting comfortably in bed. Patient reports slight improvement with shortness of breath. Patient complains of shortness of breath with activity. Patient denies chest pain. Patient denies nausea vomiting or diarrhea. Patient denies any urinary burning or frequency On 05/10/2021 Patient was seen and examined on the medical floor, she is alert and oriented x 3 in no distress, she is still complaining of shortness of breath otherwise she denies any complaints there is no fever or chills no headache or dizziness no chest pain no palpitation no cough no nausea or vomiting no abdominal pain no diarrhea no blood in the stools no burning with urination no frequency or urgency and no hematuria, there is no weakness or numbness in any of the extremities no change in vision speech or gait. On 05/11/2021 patient alert and oriented times 3. Patient is still complaining of some shortness of breath. Patient remains on IV Lasix 40 every 12. Nephrology and cardiology services are consulted. Weight down 97 kg just 96.5. Creatinine slightly increased to 2.89 bun 96. Patient denies chest pain. Patient denies nausea vomiting or diarrhea. Patient denies any urinary burning or frequency On 05/12/2021 patient was seen and examined on the telemetry floor, she is still complaining of shortness of breath especially with activity, otherwise she denies any complaints there is no fever or chills no headache or dizziness no chest pain no palpitation no cough no nausea or vomiting no abdominal pain no diarrhea no blood in the stools no burning with urination no frequency or urgency and no hematuria. On 05/13/2021 patient is alert and oriented 3. Creatinine 3.20 and bun 122. Per nephrology services plan to decrease torsemide from 80-40. Metabolic bone DC'd. Repeat labs in a.m. At this time patient denies chest pain or shortness of breath. Patient denies nausea vomiting or diarrhea. Patient denies any urinary burning or frequency On 05/14/2021 Patient was seen and examined on the medical floor, she is alert and oriented x 3 in no distress, she is still complaining of shortness of breath otherwise she denies any complaints there is no fever or chills no headache or dizziness no chest pain no palpitation no cough no nausea or vomiting no abdominal pain no diarrhea no blood in the stools no burning with urination no frequency or urgency and no hematuria, there is no weakness or numbness in any of the extremities no change in vision speech or gait. On 05/15/2021 patient was seen and examined on the telemetry floor she is still complaining of shortness of breath otherwise she denies any complaints , there is no fever or chills no headache or dizziness no chest pain, no palpitation no cough no nausea or vomiting no abdominal pain no diarrhea no blood in the stools no burning with urination no frequency or urgency and no hematuria, there is no weakness or numbness in any of the extremities no change in vision speech or gait. Input from cardiology and nephrology reviewed On 05/16/2021 patient was seen and examined on the telemetry floor she is still complaining of shortness of breath but somewhat less then yesterday, otherwise no complaints there is no fever or chills no headache or dizziness no chest pain, no palpitation no cough no nausea or vomiting no abdominal pain no diarrhea no blood in the stools no burning with urination no frequency or ur gency and no hematuria, there is no weakness or numbness in any of the extremities no change in vision speech or gait. Input from cardiology and nephrology reviewed On 05/17/2021 Patient is improving gradually, she is still complaining of shortness of breath otherwise she denies any complaints there is no fever or chills no headache or dizziness no chest pain no palpitation no cough no nausea or vomiting no abdominal pain no diarrhea no blood in the stools no burning with urination no frequency or urgency and no hematuria, there is no weakness or numbness in any of the extremities no change in vision speech or gait. On 05/18/2021 patient is still complaining of shortness of breath and ge neralized weakness otherwise she denies any complaints there is no fever or chills no headache or dizziness no chest pain no cough no nausea or vomiting no abdominal pain no diarrhea no blood in the stools no burning with urination no frequency or urgency and no hematuria. At this time, I had a prolonged discussion with patient, in the presence of 2 family members, hemodialysis and peritoneal dialysis discussed in detail, patient at this time is willing to restart hemodialysis, will consult Dr. Goins for dialysis catheter placement. Objective - Vital Signs Vital signs: Vital Signs Temp 98.4 F 05/18/21 09:01 Pulse 61 05/18/21 09:01 Resp 16 05/18/21 09:01 BP 119/54 05/18/21 09:01 Pulse Ox 98 05/18/21 09:01 Intake & Output 05/17/21 05/18/21 05/18/21 18:59 06:59 18:59 Intake Total 1020 480 Output Total 300 Balance 1020 -300 480 Weight 94.8 kg Intake: Oral 1020 480 Output: Urine 300 Other: Voiding Method Toilet External Catheter External Catheter External Catheter # Voids 1 1 # Bowel Movements 1 - Exam In general patient is alert and oriented x 3 in no distress HEENT head normocephalic and atraumatic Neck is supple no JVD no goiter no lymphadenopathy no carotid bruit Chest examination reveals a scattered crackles in both bases no wheezing Cardiac exam reveals regular heart sounds S1 and S2 no gallops no murmurs Abdomen is soft nontender no organomegaly with normal bowel sounds Extremity exam reveals 1+ edema no cyanosis or clubbing Neurological examination reveals no gross focal deficits - Labs CBC & Chem 7: 05/17/21 08:20 05/17/21 08:20 Labs: Abnormal Lab Results - Last 24 Hours (Table) 05/17/21 05/17/21 05/18/21 Range/Units 17:00 20:14 06:01 POC Glucose (mg/dL) 254 H 373 H 249 H (75-99) mg/dL 05/18/21 Range/Units 11:50 POC Glucose (mg/dL) 285 H (75-99) mg/dL Assessment and Plan Assessment: 1. Acute on chronic diastolic congestive heart failure 2. elevated troponin 3. Acute on chronic kidney disease 4. History of diabetes mellitus 5. History of hyperlipidemia 6. History of essential hypertension 7. History of coronary artery disease 8. History of cardiac arrhythmia with history of AICD and pacemaker placement 9. History of COPD 10. History of ongoing nicotine dependence DVT prophylaxis Lovenox. GI prophylaxis Protonix Cardiology and nephrology service is consulted Lasix DC'd. Torsemide decreased and metolazone DC'd per nephrology Repeat labs in a.m. Chest x-ray ordered for a.m.
[2021-05-18 17:00] LABS: Glucose,Whole Blood 341 mg/dL (75-99)
--- NOTE | 2021-05-18 17:57 | CONS ---
CONSULTATION This is an 81-year-old female. She is known to me from the past. The patient had a dialysis catheter placed in the past. Her kidney function improved. Then the dialysis catheter was removed. The patient has been readmitted with high BUN and creatinine. I was consulted for placement of dialysis catheter. MEDICAL HISTORY: History of diabetes, chronic renal failure. SURGICAL HISTORY: Patient had a CABG done 20 years ago, hysterectomy and appendectomy in the past and right shoulder surgery. PERSONAL HISTORY: ALLERGY TO BACTRIM. PHYSICAL EXAMINATION: NECK: Supple. Trachea central. CHEST: Clear. ABDOMEN: Soft. Femorals are 1+. IMPRESSION: Acute renal failure. PLAN: Placement of a dialysis catheter. Risks and complications were discussed. MMODL / IJN: [id number] /
[2021-05-18 20:24] LABS: Glucose,Whole Blood 345 mg/dL (75-99)
[2021-05-18] MEDS: ATORVASTATIN 10 MG TAB PO SCH (21:17)
[2021-05-18] MEDS: INSULIN DETEMIR (LEVEMIR) 100 UNIT/ML SYR SQ SCH (21:17)
[2021-05-19 05:58] LABS: Glucose,Whole Blood 273 mg/dL (75-99)
[2021-05-19] MEDS: carvediloL 6.25 MG TAB PO SCH ×2 (06:34→17:36)
[2021-05-19] MEDS: INSULIN ASPART (NovoLOG) 100 UNIT/ML VIAL SQ SCH ×3 (06:34→16:50)
[2021-05-19] MEDS: PANTOPRAZOLE 40 MG TABLET PO SCH (06:37)
[2021-05-19] MEDS ORDERED: IV FLUID CONTINUATION 1,000 ML IV ONE (08:15)
[2021-05-19] MEDS ORDERED: fentaNYL (PF) 50 MCG/ML 2 ML AMP IV ONE (08:34)
[2021-05-19] MEDS ORDERED: LIDOCAINE 1% INJ 10MG/ML (20 ML MDV) SQ ONE (08:34)
[2021-05-19] MEDS ORDERED: HEPARIN SODIUM 1,000 UN/ML (10ML VL) MISCELLANE ONE (08:39)
--- NOTE | 2021-05-19 09:11 | IR ---
EXAMINATION TYPE: IR cvc insert central tunneled DATE OF EXAM: 05/19/2021 CLINICAL HISTORY: Dialysis failure. TECHNIQUE: Fluoroscopy. COMPARISON: None. FINDINGS: Fluoroscopic guidance was provided during right internal jugular dialysis catheter inserti on procedure performed by Dr. Goins. A total of 3.5 minutes of fluoroscopic time was utilized duri ng the procedure and 29 spot images was acquired. Intraoperative images show portion of right interna l jugular dual-lumen dialysis catheter with tips near cavoatrial junction. IMPRESSION: As Above.
[2021-05-19] MEDS: ASPIRIN 81 MG PO SCH (09:34)
[2021-05-19] MEDS: hydrALAZINE HCL 50 MG TAB PO SCH ×3 (09:34→20:16)
[2021-05-19] MEDS: allopurinoL 100 MG TAB PO SCH (09:34)
[2021-05-19] MEDS: ENOXAPARIN 30 MG/0.3 ML SYRINGE SQ SCH ×2 (09:34→10:06)
[2021-05-19] MEDS: MIRTAZAPINE 15 MG TAB PO SCH (09:34)
--- NOTE | 2021-05-19 10:24 | P.PN ---
Subjective Patient is seen in follow-up for chronic kidney disease now progressed to end- stage renal disease. She had a permacath placed this morning. Urine output 650 mL in the last 24 hours. Does have edema in lower 70s. On IV fluids. Vital signs are stable. General: The patient appeared well nourished and normally developed. HEENT: Head exam is unremarkable. LUNGS: Breath sounds decreased. HEART: Rate and Rhythm are regular. ABDOMEN: Soft, no distention. EXTREMITITES: 1+ edema. Objective - Vital Signs Vital signs: Vital Signs Temp 98.6 F 05/18/21 20:00 Pulse 65 05/19/21 01:48 Resp 18 05/19/21 01:48 BP 166/86 05/19/21 01:48 Pulse Ox 99 05/19/21 07:38 Intake & Output 05/18/21 05/19/21 05/19/21 18:59 06:59 18:59 Intake Total 960 75 Output Total 650 Balance 960 -650 75 Weight 97 kg Intake: IV 75 Oral 960 Output: Urine 650 Other: Voiding Method External Catheter External Catheter - Labs CBC & Chem 7: 05/17/21 08:20 05/17/21 08:20 Labs: Abnormal Lab Results - Last 24 Hours (Table) 05/18/21 05/18/21 05/18/21 Range/Units 11:50 16:58 20:23 POC Glucose (mg/dL) 285 H 341 H 345 H (75-99) mg/dL 05/19/21 Range/Units 05:51 POC Glucose (mg/dL) 273 H (75-99) mg/dL Assessment and Plan Plan: Assessment: 1. Chronic kidney disease stage IV now progressed to end-stage renal disease. Etiology is nephrosclerosis and diabetic kidney disease. Patient agreeable to proceed with replacement therapy. She had a permacath placed this morning. 2. Volume overload. 3. Anemia of chronic kidney disease maintained on Aranesp. 4. Hypertension with chronic kidney disease. Stable. 5. Diabetes mellitus. Plan: Hep-Lock IV fluids. First treatment of hemodialysis today. Check phosphorus level. table games manager to set up outpatient hemodialysis.
--- NOTE | 2021-05-19 11:18 | OP ---
OPERATIVE REPORT POSTOPERATIVE DIAGNOSIS: Acute on chronic renal failure. POSTOPERATIVE DIAGNOSIS: Acute on chronic renal failure. PROCEDURE: Placement of a 23 cm dialysis catheter, right jugular approach, ultrasound-guided with IV sedation. Sedation time 24 minutes. PROCEDURE DESCRIPTION: The patient was brought to the qc lab technician. Right side of the neck and chest was prepped and draped in usual sterile manner. Lidocaine 1% was infiltrated into the neck and chest area. Ultrasound-guided micropuncture needle was introduced into the right jugular vein. Micropuncture guidewire was passed. This patient has a pacemaker on the left side. Then we passed a regular guidewire through the sheath. The guidewire was parked in the inferior vena cava. Dilator was advanced on the top of the guidewire. Then sheath was advanced on top of the guidewire. Through the sheath we introduced the dialysis catheter. Tip of the catheter was in superior vena cavoatrial junction, flushed with heparin saline and hep-locked, secured with 3-0 nylon and Vicryl. Dressing was applied. Patient tolerated the procedure well. MMODL / IJN: [id number] /
[2021-05-19 11:40] LABS: Calcium 8.8 mg/dL (8.4-10.2); Magnesium 2.1 mg/dL (1.6-2.3); Phosphorus 5.1 mg/dL (2.5-4.5); Potassium 4.8 mmol/L (3.5-5.1)
[2021-05-19 11:51] LABS: Glucose,Whole Blood 248 mg/dL (75-99)
--- NOTE | 2021-05-19 12:08 | XR ---
EXAMINATION TYPE: XR chest 1V confirm line [facility] DATE OF EXAM: 05/19/2021 CLINICAL HISTORY: Dialysis catheter placement. TECHNIQUE: Single AP portable upright view of the chest is obtained. COMPARISON: Chest x-ray from 5 days earlier FINDINGS: New Right internal jugular dual-lumen dialysis catheter with tips terminating at cavoatria l junction. No pneumothorax noted. Persisting cardiomegaly with dual lead pacemaker. Overlying sterna l wires and mediastinal clips redemonstrated. Osseous structures are demineralized. Metallic anchors left humeral head level again seen. Mild chronic interstitial changes bilaterally without new focal a irspace opacity. Improved bilateral pleural effusions from prior. IMPRESSION: As above.
[2021-05-19] MEDS ORDERED: HYDROmorphone 0.5 MG/0.5 ML SYRINGE IVP PRN (12:19)
--- NOTE | 2021-05-19 16:19 | P.PN ---
Subjective Progress Note Date: 05/19/21 Elza Avery is a 81-year-old female patient of Dr. Ward who presented with progressive been worsening shortness of breath and increased edema to lower extremities over the past 2 weeks. Patient has a significant past medical history for chronic hypoxic respiratory failure on 3 L, diabetes mellitus, hy pertension, COPD, chronic kidney disease, CAD with coronary artery bypass graft surgery, pacemaker insertion and chronic diastolic congestive heart failure. Chest x-ray completed in ER showing findings suggestive with congestive heart failure small basilar effusions follow-up is recommended area patient also elevated troponin 0.078. BNP elevated 38,300. At this time patient has been started on IV Lasix. Cardiology services have been consulted. 2-D echo has been ordered. Patient is currently resting comfortably in bed. Patient reports slight improvement with shortness of breath. Patient complains of shortness of breath with activity. Patient denies chest pain. Patient denies nausea vomiting or diarrhea. Patient denies any urinary burning or frequency On 05/10/2021 Patient was seen and examined on the medical floor, she is alert and oriented x 3 in no distress, she is still complaining of shortness of breath otherwise she denies any complaints there is no fever or chills no headache or dizziness no chest pain no palpitation no cough no nausea or vomiting no abdominal pain no diarrhea no blood in the stools no burning with urination no frequency or urgency and no hematuria, there is no weakness or numbness in any of the extremities no change in vision speech or gait. On 05/11/2021 patient alert and oriented times 3. Patient is still complaining of some shortness of breath. Patient remains on IV Lasix 40 every 12. Nephrology and cardiology services are consulted. Weight down 97 kg just 96.5. Creatinine slightly increased to 2.89 bun 96. Patient denies chest pain. Patient denies nausea vomiting or diarrhea. Patient denies any urinary burning or frequency On 05/12/2021 patient was seen and examined on the telemetry floor, she is still complaining of shortness of breath especially with activity, otherwise she denies any complaints there is no fever or chills no headache or dizziness no chest pain no palpitation no cough no nausea or vomiting no abdominal pain no diarrhea no blood in the stools no burning with urination no frequency or urgency and no hematuria. On 05/13/2021 patient is alert and oriented 3. Creatinine 3.20 and bun 122. Per nephrology services plan to decrease torsemide from 80-40. Metabolic bone DC'd. Repeat labs in a.m. At this time patient denies chest pain or shortness of breath. Patient denies nausea vomiting or diarrhea. Patient denies any urinary burning or frequency On 05/14/2021 Patient was seen and examined on the medical floor, she is alert and oriented x 3 in no distress, she is still complaining of shortness of breath otherwise she denies any complaints there is no fever or chills no headache or dizziness no chest pain no palpitation no cough no nausea or vomiting no abdominal pain no diarrhea no blood in the stools no burning with urination no frequency or urgency and no hematuria, there is no weakness or numbness in any of the extremities no change in vision speech or gait. On 05/15/2021 patient was seen and examined on the telemetry floor she is still complaining of shortness of breath otherwise she denies any complaints , there is no fever or chills no headache or dizziness no chest pain, no palpitation no cough no nausea or vomiting no abdominal pain no diarrhea no blood in the stools no burning with urination no frequency or urgency and no hematuria, there is no weakness or numbness in any of the extremities no change in vision speech or gait. Input from cardiology and nephrology reviewed On 05/16/2021 patient was seen and examined on the telemetry floor she is still complaining of shortness of breath but somewhat less then yesterday, otherwise no complaints there is no fever or chills no headache or dizziness no chest pain, no palpitation no cough no nausea or vomiting no abdominal pain no diarrhea no blood in the stools no burning with urination no frequency or ur gency and no hematuria, there is no weakness or numbness in any of the extremities no change in vision speech or gait. Input from cardiology and nephrology reviewed On 05/17/2021 Patient is improving gradually, she is still complaining of shortness of breath otherwise she denies any complaints there is no fever or chills no headache or dizziness no chest pain no palpitation no cough no nausea or vomiting no abdominal pain no diarrhea no blood in the stools no burning with urination no frequency or urgency and no hematuria, there is no weakness or numbness in any of the extremities no change in vision speech or gait. On 05/18/2021 patient is still complaining of shortness of breath and ge neralized weakness otherwise she denies any complaints there is no fever or chills no headache or dizziness no chest pain no cough no nausea or vomiting no abdominal pain no diarrhea no blood in the stools no burning with urination no frequency or urgency and no hematuria. At this time, I had a prolonged discussion with patient, in the presence of 2 family members, hemodialysis and peritoneal dialysis discussed in detail, patient at this time is willing to restart hemodialysis, will consult Dr. Goins for dialysis catheter placement. On 05/19/2021 Patient was seen and examined on the medical floor, he is alert and oriented x 3 in no distress, he denies any complaints there is no fever or chills no headache or dizziness no chest pain no shortness of breath no palpitation no cough no nausea or vomiting no abdominal pain no diarrhea no blood in the stools no burning with urination no frequency or urgency and no hematuria, there is no weakness or numbness in any of the extremities no change in vision or speech. Gait was not tested. Dialysis catheter was placed yesterday, patient is receiving hemodialysis at this time, will continue to monitor recheck labs in a.m.. Objective - Vital Signs Vital signs: Vital Signs Temp 98.6 F 05/18/21 20:00 Pulse 65 05/19/21 01:48 Resp 18 05/19/21 01:48 BP 166/86 05/19/21 01:48 Pulse Ox 99 05/19/21 07:38 Intake & Output 05/18/21 05/19/21 05/19/21 18:59 06:59 18:59 Intake Total 960 75 Output Total 650 Balance 960 -650 75 Weight 97 kg Intake: IV 75 Oral 960 Output: Urine 650 Other: Voiding Method External Catheter External Catheter - Exam In general patient is alert and oriented x 3 in no distress HEENT head normocephalic and atraumatic Neck is supple no JVD no goiter no lymphadenopathy no carotid bruit Chest examination reveals a scattered crackles in both bases no wheezing Cardiac exam reveals regular heart sounds S1 and S2 no gallops no murmurs Abdomen is soft nontender no organomegaly with normal bowel sounds Extremity exam reveals 1+ edema no cyanosis or clubbing Neurological examination reveals no gross focal deficits - Labs CBC & Chem 7: 05/17/21 08:20 05/19/21 11:00 Labs: Abnormal Lab Results - Last 24 Hours (Table) 05/18/21 05/18/21 05/18/21 Range/Units 11:50 16:58 20:23 POC Glucose (mg/dL) 285 H 341 H 345 H (75-99) mg/dL 05/19/21 Range/Units 05:51 POC Glucose (mg/dL) 273 H (75-99) mg/dL Assessment and Plan Assessment: 1. Acute on chronic diastolic congestive heart failure 2. elevated troponin 3. Acute on chronic kidney disease 4. History of diabetes mellitus 5. History of hyperlipidemia 6. History of essential hypertension 7. History of coronary artery disease 8. History of cardiac arrhythmia with history of AICD and pacemaker placement 9. History of COPD 10. History of ongoing nicotine dependence DVT prophylaxis Lovenox. GI prophylaxis Protonix Cardiology and nephrology service is consulted Lasix DC'd. Torsemide decreased and metolazone DC'd per nephrology Repeat labs in a.m. Chest x-ray ordered for a.m.
[2021-05-19 16:40] LABS: Glucose,Whole Blood 150 mg/dL (75-99)
[2021-05-19] MEDS: ATORVASTATIN 10 MG TAB PO SCH (20:16)
[2021-05-19] MEDS: INSULIN DETEMIR (LEVEMIR) 100 UNIT/ML SYR SQ SCH (20:16)
[2021-05-19 20:37] LABS: Glucose,Whole Blood 218 mg/dL (75-99)
[2021-05-19 21:44] LABS: Hepatitis B Surface AB- Quant <3.5 mIU/mL; Hepatitis B Surface Antibody Non-Reactive (Non-Reactive); Hepatitis B Surface Antigen Non-Reactive (Non-Reactive)
[2021-05-20 05:52] LABS: Glucose,Whole Blood 226 mg/dL (75-99)
[2021-05-20] MEDS: carvediloL 6.25 MG TAB PO SCH ×2 (06:18→17:44)
[2021-05-20] MEDS: PANTOPRAZOLE 40 MG TABLET PO SCH (06:18)
[2021-05-20] MEDS: INSULIN ASPART (NovoLOG) 100 UNIT/ML VIAL SQ SCH ×3 (06:18→17:44)
[2021-05-20] MEDS: ASPIRIN 81 MG PO SCH (08:44)
[2021-05-20] MEDS: ENOXAPARIN 30 MG/0.3 ML SYRINGE SQ SCH (08:44)
[2021-05-20] MEDS: allopurinoL 100 MG TAB PO SCH (08:44)
[2021-05-20] MEDS: hydrALAZINE HCL 50 MG TAB PO SCH ×3 (08:45→20:20)
[2021-05-20] MEDS: MIRTAZAPINE 15 MG TAB PO SCH (08:45)
--- NOTE | 2021-05-20 08:46 | P.PN ---
Subjective Patient is seen in follow-up for chronic kidney disease now progressed to end- stage renal disease. She had a permacath placed on May 19 and was started on hemodialysis. Tolerated dialysis well yesterday. Urine output about 200 mL overnight per the nurse. No chest pain or shortness of breath. Vital signs are stable. General: The patient appeared well nourished and normally developed. HEENT: Head exam is unremarkable. LUNGS: Breath sounds decreased. HEART: Rate and Rhythm are regular. ABDOMEN: Soft, no distention. EXTREMITITES: 1+ edema. Objective - Vital Signs Vital signs: Vital Signs Temp 98.5 F 05/19/21 20:00 Pulse 60 05/20/21 02:00 Resp 18 05/20/21 02:00 BP 136/61 05/20/21 02:00 Pulse Ox 98 05/20/21 08:31 Intake & Output 05/19/21 05/20/21 05/20/21 18:59 06:59 18:59 Intake Total 1055 240 Output Total 1600 Balance -545 240 Weight 96.9 kg Intake: IV 75 Oral 680 240 Hemodialysis 300 Output: Urine 300 Hemodialysis 1300 Other: Voiding Method External Catheter External Catheter - Labs CBC & Chem 7: 05/17/21 08:20 05/19/21 11:00 Labs: Abnormal Lab Results - Last 24 Hours (Table) 05/19/21 05/19/21 05/19/21 Range/Units 11:00 11:50 16:39 BUN 144 H* (7-17) mg/dL Creatinine 3.01 H (0.52-1.04) mg/dL Glucose 234 H (74-99) mg/dL POC Glucose (mg/dL) 248 H 150 H (75-99) mg/dL Phosphorus 5.1 H (2.5-4.5) mg/dL 05/19/21 05/20/21 Range/Units 20:12 05:51 BUN (7-17) mg/dL Creatinine (0.52-1.04) mg/dL Glucose (74-99) mg/dL POC Glucose (mg/dL) 218 H 226 H (75-99) mg/dL Phosphorus (2.5-4.5) mg/dL Assessment and Plan Plan: Assessment: 1. Chronic kidney disease stage IV now progressed to end-stage renal disease. Etiology is nephrosclerosis and diabetic kidney disease. Patient agreed to proceed with replacement therapy. She has a permacath. Started on hemodialysis May 19. 2. Volume overload. 3. Anemia of chronic kidney disease maintained on Aranesp. 4. Hypertension with chronic kidney disease. Stable. 5. Diabetes mellitus. Plan: Second treatment of hemodialysis tomorrow. Phosphorus 5.1. manager animal to set up outpatient hemodialysis.
[2021-05-20 10:32] LABS: Albumin 2.7 g/dL (3.5-5.0); Calcium 8.5 mg/dL (8.4-10.2); Potassium 4.4 mmol/L (3.5-5.1); Total Bilirubin 0.4 mg/dL (0.2-1.3); Total Protein 5.1 g/dL (6.3-8.2)
[2021-05-20 10:46] LABS: Anisocytosis Slight; HCT 21.4 % (34.0-46.0); Hypochromasia Slight; MCH 31.8 pg (25.0-35.0); MCHC 32.7 g/dL (31.0-37.0); MCV 97.2 fL (80.0-100.0); Macrocytosis Slight; Mean Platelet Volume 10.7; Platelet Count 120 k/uL (150-450); RBC 2.21 m/uL (3.80-5.40); RDW 17.4 % (11.5-15.5); WBC 3.7 k/uL (3.8-10.6)
[2021-05-20 11:35] LABS: Eosinophils # (M) 0.15 k/uL (0-0.7); Metamyelocytes # (M) 0.04 k/uL (0); Metamyelocytes % 1 %; Monocytes # (M) 0.52 k/uL (0-1.0); Neutrophils # (M) 2.74 k/uL (1.3-7.7); Neutrophils % (M) 74 %; Nucleated Red Blood Cells 0 /100 WBC (0-0); Total Cells Counted 200
[2021-05-20 11:36] LABS: Poikilocytosis (M) Present
[2021-05-20 11:40] LABS: Glucose,Whole Blood 267 mg/dL (75-99)
--- NOTE | 2021-05-20 12:52 | P.PN ---
Subjective Progress Note Date: 05/20/21 Elza Avery is a 81-year-old female patient of Dr. Ward who presented with progressive been worsening shortness of breath and increased edema to lower extremities over the past 2 weeks. Patient has a significant past medical history for chronic hypoxic respiratory failure on 3 L, diabetes mellitus, hy pertension, COPD, chronic kidney disease, CAD with coronary artery bypass graft surgery, pacemaker insertion and chronic diastolic congestive heart failure. Chest x-ray completed in ER showing findings suggestive with congestive heart failure small basilar effusions follow-up is recommended area patient also elevated troponin 0.078. BNP elevated 38,300. At this time patient has been started on IV Lasix. Cardiology services have been consulted. 2-D echo has been ordered. Patient is currently resting comfortably in bed. Patient reports slight improvement with shortness of breath. Patient complains of shortness of breath with activity. Patient denies chest pain. Patient denies nausea vomiting or diarrhea. Patient denies any urinary burning or frequency On 05/10/2021 Patient was seen and examined on the medical floor, she is alert and oriented x 3 in no distress, she is still complaining of shortness of breath otherwise she denies any complaints there is no fever or chills no headache or dizziness no chest pain no palpitation no cough no nausea or vomiting no abdominal pain no diarrhea no blood in the stools no burning with urination no frequency or urgency and no hematuria, there is no weakness or numbness in any of the extremities no change in vision speech or gait. On 05/11/2021 patient alert and oriented times 3. Patient is still complaining of some shortness of breath. Patient remains on IV Lasix 40 every 12. Nephrology and cardiology services are consulted. Weight down 97 kg just 96.5. Creatinine slightly increased to 2.89 bun 96. Patient denies chest pain. Patient denies nausea vomiting or diarrhea. Patient denies any urinary burning or frequency On 05/12/2021 patient was seen and examined on the telemetry floor, she is still complaining of shortness of breath especially with activity, otherwise she denies any complaints there is no fever or chills no headache or dizziness no chest pain no palpitation no cough no nausea or vomiting no abdominal pain no diarrhea no blood in the stools no burning with urination no frequency or urgency and no hematuria. On 05/13/2021 patient is alert and oriented 3. Creatinine 3.20 and bun 122. Per nephrology services plan to decrease torsemide from 80-40. Metabolic bone DC'd. Repeat labs in a.m. At this time patient denies chest pain or shortness of breath. Patient denies nausea vomiting or diarrhea. Patient denies any urinary burning or frequency On 05/14/2021 Patient was seen and examined on the medical floor, she is alert and oriented x 3 in no distress, she is still complaining of shortness of breath otherwise she denies any complaints there is no fever or chills no headache or dizziness no chest pain no palpitation no cough no nausea or vomiting no abdominal pain no diarrhea no blood in the stools no burning with urination no frequency or urgency and no hematuria, there is no weakness or numbness in any of the extremities no change in vision speech or gait. On 05/15/2021 patient was seen and examined on the telemetry floor she is still complaining of shortness of breath otherwise she denies any complaints , there is no fever or chills no headache or dizziness no chest pain, no palpitation no cough no nausea or vomiting no abdominal pain no diarrhea no blood in the stools no burning with urination no frequency or urgency and no hematuria, there is no weakness or numbness in any of the extremities no change in vision speech or gait. Input from cardiology and nephrology reviewed On 05/16/2021 patient was seen and examined on the telemetry floor she is still complaining of shortness of breath but somewhat less then yesterday, otherwise no complaints there is no fever or chills no headache or dizziness no chest pain, no palpitation no cough no nausea or vomiting no abdominal pain no diarrhea no blood in the stools no burning with urination no frequency or ur gency and no hematuria, there is no weakness or numbness in any of the extremities no change in vision speech or gait. Input from cardiology and nephrology reviewed On 05/17/2021 Patient is improving gradually, she is still complaining of shortness of breath otherwise she denies any complaints there is no fever or chills no headache or dizziness no chest pain no palpitation no cough no nausea or vomiting no abdominal pain no diarrhea no blood in the stools no burning with urination no frequency or urgency and no hematuria, there is no weakness or numbness in any of the extremities no change in vision speech or gait. On 05/18/2021 patient is still complaining of shortness of breath and ge neralized weakness otherwise she denies any complaints there is no fever or chills no headache or dizziness no chest pain no cough no nausea or vomiting no abdominal pain no diarrhea no blood in the stools no burning with urination no frequency or urgency and no hematuria. At this time, I had a prolonged discussion with patient, in the presence of 2 family members, hemodialysis and peritoneal dialysis discussed in detail, patient at this time is willing to restart hemodialysis, will consult Dr. Goins for dialysis catheter placement. On 05/19/2021 Patient was seen and examined on the medical floor, he is alert and oriented x 3 in no distress, he denies any complaints there is no fever or chills no headache or dizziness no chest pain no shortness of breath no palpitation no cough no nausea or vomiting no abdominal pain no diarrhea no blood in the stools no burning with urination no frequency or urgency and no hematuria, there is no weakness or numbness in any of the extremities no change in vision or speech. Gait was not tested. Dialysis catheter was placed yesterday, patient is receiving hemodialysis at this time, will continue to monitor recheck labs in a.m.. On 05/20/2021 Patient was seen and examined on the medical floor, he is alert and oriented x 3 in no distress, he denies any complaints there is no fever or chills no headache or dizziness no chest pain no shortness of breath no palpitation no cough no nausea or vomiting no abdominal pain no diarrhea no blood in the stools no burning with urination no frequency or urgency and no hematuria, there is no weakness or numbness in any of the extremities no change in vision speech or gait. Patient is complaining of some discomfort at the dialysis catheter site, otherwise she denies any complaints, she has a dialysis session scheduled for tomorrow, possible discharge to home on Friday if stable Objective - Vital Signs Vital signs: Vital Signs Temp 98.8 F 05/20/21 08:00 Pulse 65 05/20/21 08:00 Resp 18 05/20/21 08:00 BP 115/46 05/20/21 08:00 Pulse Ox 98 05/20/21 08:31 Intake & Output 05/19/21 05/20/21 05/20/21 18:59 06:59 18:59 Intake Total 1055 240 Output Total 1600 Balance -545 240 Weight 96.9 kg Intake: IV 75 Oral 680 240 Hemodialysis 300 Output: Urine 300 Hemodialysis 1300 Other: Voiding Method External Catheter External Catheter External Catheter - Exam In general patient is alert and oriented x 3 in no distress HEENT head normocephalic and atraumatic Neck is supple no JVD no goiter no lymphadenopathy no carotid bruit Chest examination reveals a scattered crackles in both bases no wheezing Cardiac exam reveals regular heart sounds S1 and S2 no gallops no murmurs Abdomen is soft nontender no organomegaly with normal bowel sounds Extremity exam reveals 1+ edema no cyanosis or clubbing Neurological examination reveals no gross focal deficits - Labs CBC & Chem 7: 05/20/21 09:17 05/20/21 09:17 Labs: Abnormal Lab Results - Last 24 Hours (Table) 05/19/21 05/19/21 05/19/21 Range/Units 11:00 11:50 16:39 WBC (3.8-10.6) k/uL RBC (3.80-5.40) m/uL Hgb (11.4-16.0) gm/dL Hct (34.0-46.0) % RDW (11.5-15.5) % Plt Count (150-450) k/uL Lymphocytes # (Manual) (1.0-4.8) k/uL Metamyelocytes # (Man) (0) k/uL Sodium (137-145) mmol/L BUN 144 H* (7-17) mg/dL Creatinine 3.01 H (0.52-1.04) mg/dL Glucose 234 H (74-99) mg/dL POC Glucose (mg/dL) 248 H 150 H (75-99) mg/dL Phosphorus 5.1 H (2.5-4.5) mg/dL Total Protein (6.3-8.2) g/dL Albumin (3.5-5.0) g/dL 05/19/21 05/20/21 05/20/21 Range/Units 20:12 05:51 09:17 WBC 3.7 L (3.8-10.6) k/uL RBC 2.21 L (3.80-5.40) m/uL Hgb 7.0 L (11.4-16.0) gm/dL Hct 21.4 L (34.0-46.0) % RDW 17.4 H (11.5-15.5) % Plt Count 120 L (150-450) k/uL Lymphocytes # (Manual) 0.30 L (1.0-4.8) k/uL Metamyelocytes # (Man) 0.04 H (0) k/uL Sodium (137-145) mmol/L BUN (7-17) mg/dL Creatinine (0.52-1.04) mg/dL Glucose (74-99) mg/dL POC Glucose (mg/dL) 218 H 226 H (75-99) mg/dL Phosphorus (2.5-4.5) mg/dL Total Protein (6.3-8.2) g/dL Albumin (3.5-5.0) g/dL 05/20/21 Range/Units 09:17 WBC (3.8-10.6) k/uL RBC (3.80-5.40) m/uL Hgb (11.4-16.0) gm/dL Hct (34.0-46.0) % RDW (11.5-15.5) % Plt Count (150-450) k/uL Lymphocytes # (Manual) (1.0-4.8) k/uL Metamyelocytes # (Man) (0) k/uL Sodium 135 L (137-145) mmol/L BUN 97 H (7-17) mg/dL Creatinine 2.41 H (0.52-1.04) mg/dL Glucose 242 H (74-99) mg/dL POC Glucose (mg/dL) (75-99) mg/dL Phosphorus (2.5-4.5) mg/dL Total Protein 5.1 L (6.3-8.2) g/dL Albumin 2.7 L (3.5-5.0) g/dL Assessment and Plan Assessment: 1. Acute on chronic diastolic congestive heart failure 2. elevated troponin 3. Acute on chronic kidney disease 4. History of diabetes mellitus 5. History of hyperlipidemia 6. History of essential hypertension 7. History of coronary artery disease 8. History of cardiac arrhythmia with history of AICD and pacemaker placement 9. History of COPD 10. History of ongoing nicotine dependence DVT prophylaxis Lovenox. GI prophylaxis Protonix Cardiology and nephrology service is consulted Lasix DC'd. Torsemide decreased and metolazone DC'd per nephrology Repeat labs in a.m. Chest x-ray ordered for a.m.
[2021-05-20 16:43] LABS: Glucose,Whole Blood 233 mg/dL (75-99)
[2021-05-20 17:52] LABS: % Iron Saturation 15.53 (12.00-45.00)
[2021-05-20 20:05] LABS: Glucose,Whole Blood 328 mg/dL (75-99)
[2021-05-20] MEDS: ATORVASTATIN 10 MG TAB PO SCH (20:20)
[2021-05-20] MEDS: INSULIN DETEMIR (LEVEMIR) 100 UNIT/ML SYR SQ SCH (20:26)
[2021-05-20] MEDS: TEMAZEPAM 15 MG CAP PO PRN (23:04)
[2021-05-21 06:02] LABS: Glucose,Whole Blood 224 mg/dL (75-99)
[2021-05-21] MEDS: carvediloL 6.25 MG TAB PO SCH ×2 (06:43→17:01)
[2021-05-21] MEDS: INSULIN ASPART (NovoLOG) 100 UNIT/ML VIAL SQ SCH ×3 (06:43→17:00)
[2021-05-21] MEDS: PANTOPRAZOLE 40 MG TABLET PO SCH (06:43)
[2021-05-21] MEDS: ASPIRIN 81 MG PO SCH (08:24)
[2021-05-21] MEDS: hydrALAZINE HCL 50 MG TAB PO SCH ×3 (08:24→20:18)
[2021-05-21] MEDS: MIRTAZAPINE 15 MG TAB PO SCH (08:24)
[2021-05-21] MEDS: ENOXAPARIN 30 MG/0.3 ML SYRINGE SQ SCH (08:24)
[2021-05-21] MEDS: allopurinoL 100 MG TAB PO SCH (08:24)
--- NOTE | 2021-05-21 09:35 | P.PN ---
Subjective Patient is seen in follow-up for chronic kidney disease now progressed to end- stage renal disease. She had a permacath placed on May 19 and was started on hemodialysis. Tolerated dialysis well on Friday. No chest pain or shortness of breath. On 2 L nasal cannula. Vital signs are stable. General: The patient appeared well nourished and normally developed. HEENT: Head exam is unremarkable. LUNGS: Breath sounds decreased. HEART: Rate and Rhythm are regular. ABDOMEN: Soft, no distention. EXTREMITITES: 1+ edema. Objective - Vital Signs Vital signs: Vital Signs Temp 98 F 05/21/21 07:56 Pulse 70 05/21/21 07:58 Resp 16 05/21/21 07:58 BP 139/79 05/21/21 07:56 Pulse Ox 98 05/21/21 08:46 Intake & Output 05/20/21 05/21/21 05/21/21 18:59 06:59 18:59 Intake Total 780 560 Output Total 250 Balance 780 310 Weight 97.9 kg Intake: Oral 780 560 Output: Urine 250 Other: Voiding Method External Catheter External Catheter External Catheter - Labs CBC & Chem 7: 05/20/21 09:17 05/20/21 09:17 Labs: Abnormal Lab Results - Last 24 Hours (Table) 05/20/21 05/20/21 05/20/21 Range/Units 09:17 09:17 09:17 WBC 3.7 L (3.8-10.6) k/uL RBC 2.21 L (3.80-5.40) m/uL Hgb 7.0 L (11.4-16.0) gm/dL Hct 21.4 L (34.0-46.0) % RDW 17.4 H (11.5-15.5) % Plt Count 120 L (150-450) k/uL Lymphocytes # (Manual) 0.30 L (1.0-4.8) k/uL Metamyelocytes # (Man) 0.04 H (0) k/uL Sodium 135 L (137-145) mmol/L BUN 97 H (7-17) mg/dL Creatinine 2.41 H (0.52-1.04) mg/dL Glucose 242 H (74-99) mg/dL POC Glucose (mg/dL) (75-99) mg/dL Iron 34 L (50-170) ug/dL TIBC 219 L (228-460) ug/dL Total Protein 5.1 L (6.3-8.2) g/dL Albumin 2.7 L (3.5-5.0) g/dL 05/20/21 05/20/21 05/20/21 Range/Units 11:39 16:39 20:04 WBC (3.8-10.6) k/uL RBC (3.80-5.40) m/uL Hgb (11.4-16.0) gm/dL Hct (34.0-46.0) % RDW (11.5-15.5) % Plt Count (150-450) k/uL Lymphocytes # (Manual) (1.0-4.8) k/uL Metamyelocytes # (Man) (0) k/uL Sodium (137-145) mmol/L BUN (7-17) mg/dL Creatinine (0.52-1.04) mg/dL Glucose (74-99) mg/dL POC Glucose (mg/dL) 267 H 233 H 328 H (75-99) mg/dL Iron (50-170) ug/dL TIBC (228-460) ug/dL Total Protein (6.3-8.2) g/dL Albumin (3.5-5.0) g/dL 05/21/21 Range/Units 06:01 WBC (3.8-10.6) k/uL RBC (3.80-5.40) m/uL Hgb (11.4-16.0) gm/dL Hct (34.0-46.0) % RDW (11.5-15.5) % Plt Count (150-450) k/uL Lymphocytes # (Manual) (1.0-4.8) k/uL Metamyelocytes # (Man) (0) k/uL Sodium (137-145) mmol/L BUN (7-17) mg/dL Creatinine (0.52-1.04) mg/dL Glucose (74-99) mg/dL POC Glucose (mg/dL) 224 H (75-99) mg/dL Iron (50-170) ug/dL TIBC (228-460) ug/dL Total Protein (6.3-8.2) g/dL Albumin (3.5-5.0) g/dL Assessment and Plan Plan: Assessment: 1. Chronic kidney disease stage IV now progressed to end-stage renal disease. Etiology is nephrosclerosis and diabetic kidney disease. Patient agreed to proceed with replacement therapy. She has a permacath. Started on hemodialysis May 19. 2. Volume overload. 3. Anemia of chronic kidney disease maintained on Aranesp. Iron deficiency noted. 4. Hypertension with chronic kidney disease. Stable. 5. Diabetes mellitus. Plan: Second treatment of hemodialysis today. Phosphorus 5.1. manager wholesale to set up outpatient hemodialysis. Add IV iron.
[2021-05-21] MEDS: SODIUM FERRIC GLUCONAT-SUCROSE 125 MG in SODIUM CHLORIDE 0.9% 100 ML IVPB SCH (10:21)
[2021-05-21 11:38] LABS: Glucose,Whole Blood 317 mg/dL (75-99)
--- NOTE | 2021-05-21 15:40 | P.PN ---
Subjective Progress Note Date: 05/21/21 Elza Avery is a 81-year-old female patient of Dr. Ward who presented with progressive been worsening shortness of breath and increased edema to lower extremities over the past 2 weeks. Patient has a significant past medical history for chronic hypoxic respiratory failure on 3 L, diabetes mellitus, hy pertension, COPD, chronic kidney disease, CAD with coronary artery bypass graft surgery, pacemaker insertion and chronic diastolic congestive heart failure. Chest x-ray completed in ER showing findings suggestive with congestive heart failure small basilar effusions follow-up is recommended area patient also elevated troponin 0.078. BNP elevated 38,300. At this time patient has been started on IV Lasix. Cardiology services have been consulted. 2-D echo has been ordered. Patient is currently resting comfortably in bed. Patient reports slight improvement with shortness of breath. Patient complains of shortness of breath with activity. Patient denies chest pain. Patient denies nausea vomiting or diarrhea. Patient denies any urinary burning or frequency On 05/10/2021 Patient was seen and examined on the medical floor, she is alert and oriented x 3 in no distress, she is still complaining of shortness of breath otherwise she denies any complaints there is no fever or chills no headache or dizziness no chest pain no palpitation no cough no nausea or vomiting no abdominal pain no diarrhea no blood in the stools no burning with urination no frequency or urgency and no hematuria, there is no weakness or numbness in any of the extremities no change in vision speech or gait. On 05/11/2021 patient alert and oriented times 3. Patient is still complaining of some shortness of breath. Patient remains on IV Lasix 40 every 12. Nephrology and cardiology services are consulted. Weight down 97 kg just 96.5. Creatinine slightly increased to 2.89 bun 96. Patient denies chest pain. Patient denies nausea vomiting or diarrhea. Patient denies any urinary burning or frequency On 05/12/2021 patient was seen and examined on the telemetry floor, she is still complaining of shortness of breath especially with activity, otherwise she denies any complaints there is no fever or chills no headache or dizziness no chest pain no palpitation no cough no nausea or vomiting no abdominal pain no diarrhea no blood in the stools no burning with urination no frequency or urgency and no hematuria. On 05/13/2021 patient is alert and oriented 3. Creatinine 3.20 and bun 122. Per nephrology services plan to decrease torsemide from 80-40. Metabolic bone DC'd. Repeat labs in a.m. At this time patient denies chest pain or shortness of breath. Patient denies nausea vomiting or diarrhea. Patient denies any urinary burning or frequency On 05/14/2021 Patient was seen and examined on the medical floor, she is alert and oriented x 3 in no distress, she is still complaining of shortness of breath otherwise she denies any complaints there is no fever or chills no headache or dizziness no chest pain no palpitation no cough no nausea or vomiting no abdominal pain no diarrhea no blood in the stools no burning with urination no frequency or urgency and no hematuria, there is no weakness or numbness in any of the extremities no change in vision speech or gait. On 05/15/2021 patient was seen and examined on the telemetry floor she is still complaining of shortness of breath otherwise she denies any complaints , there is no fever or chills no headache or dizziness no chest pain, no palpitation no cough no nausea or vomiting no abdominal pain no diarrhea no blood in the stools no burning with urination no frequency or urgency and no hematuria, there is no weakness or numbness in any of the extremities no change in vision speech or gait. Input from cardiology and nephrology reviewed On 05/16/2021 patient was seen and examined on the telemetry floor she is still complaining of shortness of breath but somewhat less then yesterday, otherwise no complaints there is no fever or chills no headache or dizziness no chest pain, no palpitation no cough no nausea or vomiting no abdominal pain no diarrhea no blood in the stools no burning with urination no frequency or ur gency and no hematuria, there is no weakness or numbness in any of the extremities no change in vision speech or gait. Input from cardiology and nephrology reviewed On 05/17/2021 Patient is improving gradually, she is still complaining of shortness of breath otherwise she denies any complaints there is no fever or chills no headache or dizziness no chest pain no palpitation no cough no nausea or vomiting no abdominal pain no diarrhea no blood in the stools no burning with urination no frequency or urgency and no hematuria, there is no weakness or numbness in any of the extremities no change in vision speech or gait. On 05/18/2021 patient is still complaining of shortness of breath and ge neralized weakness otherwise she denies any complaints there is no fever or chills no headache or dizziness no chest pain no cough no nausea or vomiting no abdominal pain no diarrhea no blood in the stools no burning with urination no frequency or urgency and no hematuria. At this time, I had a prolonged discussion with patient, in the presence of 2 family members, hemodialysis and peritoneal dialysis discussed in detail, patient at this time is willing to restart hemodialysis, will consult Dr. Goins for dialysis catheter placement. On 05/19/2021 Patient was seen and examined on the medical floor, she is alert and oriented x 3 in no distress, she denies any complaints there is no fever or chills no headache or dizziness no chest pain no shortness of breath no palpitation no cough no nausea or vomiting no abdominal pain no diarrhea no blood in the stools no burning with urination no frequency or urgency and no hematuria, there is no weakness or numbness in any of the extremities no change in vision or speech. Gait was not tested. Dialysis catheter was placed yesterday, patient is receiving hemodialysis at this time, will continue to monitor recheck labs in a.m.. On 05/20/2021 Patient was seen and examined on the medical floor, she is alert and oriented x 3 in no distress, she denies any complaints there is no fever or chills no headache or dizziness no chest pain no shortness of breath no palpitation no cough no nausea or vomiting no abdominal pain no diarrhea no blood in the stools no burning with urination no frequency or urgency and no hematuria, there is no weakness or numbness in any of the extremities no change in vision speech or gait. Patient is complaining of some discomfort at the dialysis catheter site, otherwise she denies any complaints, she has a dialysis session scheduled for tomorrow, possible discharge to home on Friday if stable. On 05/21/2021 patient was seen and examined on the medical floor, she is undergoing hemodialysis at this time there is no fever or chills no headache or dizziness no chest pain no shortness of breath no cough no nausea or vomiting no abdominal pain no diarrhea no blood in the stools no burning with urination no frequency or urgency and no hematuria, at this time continue with hemodialysis if stable possible discharge to home tomorrow. Objective - Vital Signs Vital signs: Vital Signs Temp 98 F 05/21/21 07:56 Pulse 70 05/21/21 07:58 Resp 16 05/21/21 07:58 BP 139/79 05/21/21 07:56 Pulse Ox 98 05/21/21 08:46 Intake & Output 05/20/21 05/21/21 05/21/21 18:59 06:59 18:59 Intake Total 780 560 Output Total 250 Balance 780 310 Weight 97.9 kg Intake: Oral 780 560 Output: Urine 250 Other: Voiding Method External Catheter External Catheter External Catheter - Exam In general patient is alert and oriented x 3 in no distress HEENT head normocephalic and atraumatic Neck is supple no JVD no goiter no lymphadenopathy no carotid bruit Chest examination reveals a scattered crackles in both bases no wheezing Cardiac exam reveals regular heart sounds S1 and S2 no gallops no murmurs Abdomen is soft nontender no organomegaly with normal bowel sounds Extremity exam reveals 1+ edema no cyanosis or clubbing Neurological examination reveals no gross focal deficits - Labs CBC & Chem 7: 05/20/21 09:17 05/20/21 09:17 Labs: Abnormal Lab Results - Last 24 Hours (Table) 05/20/21 05/20/21 05/20/21 Range/Units 09:17 09:17 09:17 WBC 3.7 L (3.8-10.6) k/uL RBC 2.21 L (3.80-5.40) m/uL Hgb 7.0 L (11.4-16.0) gm/dL Hct 21.4 L (34.0-46.0) % RDW 17.4 H (11.5-15.5) % Plt Count 120 L (150-450) k/uL Lymphocytes # (Manual) 0.30 L (1.0-4.8) k/uL Metamyelocytes # (Man) 0.04 H (0) k/uL Sodium 135 L (137-145) mmol/L BUN 97 H (7-17) mg/dL Creatinine 2.41 H (0.52-1.04) mg/dL Glucose 242 H (74-99) mg/dL POC Glucose (mg/dL) (75-99) mg/dL Iron 34 L (50-170) ug/dL TIBC 219 L (228-460) ug/dL Total Protein 5.1 L (6.3-8.2) g/dL Albumin 2.7 L (3.5-5.0) g/dL 05/20/21 05/20/21 05/20/21 Range/Units 11:39 16:39 20:04 WBC (3.8-10.6) k/uL RBC (3.80-5.40) m/uL Hgb (11.4-16.0) gm/dL Hct (34.0-46.0) % RDW (11.5-15.5) % Plt Count (150-450) k/uL Lymphocytes # (Manual) (1.0-4.8) k/uL Metamyelocytes # (Man) (0) k/uL Sodium (137-145) mmol/L BUN (7-17) mg/dL Creatinine (0.52-1.04) mg/dL Glucose (74-99) mg/dL POC Glucose (mg/dL) 267 H 233 H 328 H (75-99) mg/dL Iron (50-170) ug/dL TIBC (228-460) ug/dL Total Protein (6.3-8.2) g/dL Albumin (3.5-5.0) g/dL 05/21/21 Range/Units 06:01 WBC (3.8-10.6) k/uL RBC (3.80-5.40) m/uL Hgb (11.4-16.0) gm/dL Hct (34.0-46.0) % RDW (11.5-15.5) % Plt Count (150-450) k/uL Lymphocytes # (Manual) (1.0-4.8) k/uL Metamyelocytes # (Man) (0) k/uL Sodium (137-145) mmol/L BUN (7-17) mg/dL Creatinine (0.52-1.04) mg/dL Glucose (74-99) mg/dL POC Glucose (mg/dL) 224 H (75-99) mg/dL Iron (50-170) ug/dL TIBC (228-460) ug/dL Total Protein (6.3-8.2) g/dL Albumin (3.5-5.0) g/dL Assessment and Plan Assessment: 1. Acute on chronic diastolic congestive heart failure 2. elevated troponin 3. Acute on chronic kidney disease 4. History of diabetes mellitus 5. History of hyperlipidemia 6. History of essential hypertension 7. History of coronary artery disease 8. History of cardiac arrhythmia with history of AICD and pacemaker placement 9. History of COPD 10. History of ongoing nicotine dependence DVT prophylaxis Lovenox. GI prophylaxis Protonix Cardiology and nephrology service is consulted Lasix DC'd. Torsemide decreased and metolazone DC'd per nephrology Repeat labs in a.m. Chest x-ray ordered for a.m.
[2021-05-21 16:42] LABS: Glucose,Whole Blood 168 mg/dL (75-99)
[2021-05-21 20:10] LABS: Glucose,Whole Blood 260 mg/dL (75-99)
[2021-05-21] MEDS: ATORVASTATIN 10 MG TAB PO SCH (20:18)
[2021-05-21] MEDS: INSULIN DETEMIR (LEVEMIR) 100 UNIT/ML SYR SQ SCH (20:18)
[2021-05-21] MEDS: TEMAZEPAM 15 MG CAP PO PRN (22:31)
[2021-05-22 07:12] LABS: Anisocytosis Slight; HCT 22.8 % (34.0-46.0); HGB 7.5 gm/dL (11.4-16.0); Hypochromasia Slight; MCH 32.3 pg (25.0-35.0); MCHC 32.7 g/dL (31.0-37.0); MCV 98.9 fL (80.0-100.0); Macrocytosis Slight; Mean Platelet Volume 10.9; Platelet Count 136 k/uL (150-450); RBC 2.31 m/uL (3.80-5.40); RDW 17.4 % (11.5-15.5); WBC 5.2 k/uL (3.8-10.6)
[2021-05-22 07:13] LABS: Albumin 2.7 g/dL (3.5-5.0); Potassium 4.2 mmol/L (3.5-5.1); Total Bilirubin 0.3 mg/dL (0.2-1.3); Total Protein 5.1 g/dL (6.3-8.2)
[2021-05-22 07:22] LABS: Glucose,Whole Blood 119 mg/dL (75-99)
[2021-05-22] MEDS: INSULIN ASPART (NovoLOG) 100 UNIT/ML VIAL SQ SCH ×4 (07:55→22:44)
[2021-05-22] MEDS: carvediloL 6.25 MG TAB PO SCH ×2 (08:03→16:51)
[2021-05-22] MEDS: ASPIRIN 81 MG PO SCH (08:03)
[2021-05-22] MEDS: hydrALAZINE HCL 50 MG TAB PO SCH ×3 (08:03→22:44)
[2021-05-22] MEDS: MIRTAZAPINE 15 MG TAB PO SCH (08:03)
[2021-05-22] MEDS: PANTOPRAZOLE 40 MG TABLET PO SCH (08:03)
[2021-05-22] MEDS: allopurinoL 100 MG TAB PO SCH (08:03)
[2021-05-22] MEDS: ENOXAPARIN 30 MG/0.3 ML SYRINGE SQ SCH (08:03)
[2021-05-22 08:38] LABS: Basophils # (M) 0.05 k/uL (0-0.2); Nucleated Red Blood Cells 0 /100 WBC (0-0)
[2021-05-22 08:40] LABS: Eosinophils # (M) 0.31 k/uL (0-0.7); Lymphocytes # (M) 0.47 k/uL (1.0-4.8); Monocytes # (M) 0.47 k/uL (0-1.0); Neutrophils # (M) 3.95 k/uL (1.3-7.7); Neutrophils % (M) 76 %; Total Cells Counted 200
--- NOTE | 2021-05-22 10:02 | P.PN ---
Subjective Patient is seen in follow-up for chronic kidney disease now progressed to end- stage renal disease. She had a permacath placed on May 19 and was started on hemodialysis. Tolerating dialysis and ultrafiltration well. Edema improving. No chest pain or shortness of breath. On 2 L nasal cannula. Vital signs are stable. General: The patient appeared well nourished and normally developed. HEENT: Head exam is unremarkable. LUNGS: Breath sounds decreased. HEART: Rate and Rhythm are regular. ABDOMEN: Soft, no distention. EXTREMITITES: 1+ edema. Objective - Vital Signs Vital signs: Vital Signs Temp 97.7 F 05/22/21 08:00 Pulse 64 05/22/21 08:00 Resp 16 05/22/21 08:00 BP 114/61 05/22/21 08:00 Pulse Ox 100 05/22/21 08:00 Intake & Output 05/21/21 05/22/21 05/22/21 18:59 06:59 18:59 Intake Total 240 Output Total 2200 260 Balance -2200 -20 Weight 97.9 kg Intake: Oral 240 Output: Urine 200 260 Hemodialysis 2000 Other: Voiding Method External Catheter External Catheter - Labs CBC & Chem 7: 05/22/21 05:53 05/22/21 05:53 Labs: Abnormal Lab Results - Last 24 Hours (Table) 05/20/21 05/21/21 05/21/21 Range/Units 09:17 11:37 16:38 RBC (3.80-5.40) m/uL Hgb (11.4-16.0) gm/dL Hct (34.0-46.0) % RDW (11.5-15.5) % Plt Count (150-450) k/uL Lymphocytes # (Manual) (1.0-4.8) k/uL Carbon Dioxide (22-30) mmol/L BUN (7-17) mg/dL Creatinine (0.52-1.04) mg/dL Glucose (74-99) mg/dL POC Glucose (mg/dL) 317 H 168 H (75-99) mg/dL Calcium (8.4-10.2) mg/dL Ferritin 541.0 H (10.0-291.0) ng/mL Total Protein (6.3-8.2) g/dL Albumin (3.5-5.0) g/dL 05/21/21 05/22/21 05/22/21 Range/Units 20:09 05:53 05:53 RBC 2.31 L (3.80-5.40) m/uL Hgb 7.5 L (11.4-16.0) gm/dL Hct 22.8 L (34.0-46.0) % RDW 17.4 H (11.5-15.5) % Plt Count 136 L (150-450) k/uL Lymphocytes # (Manual) 0.47 L (1.0-4.8) k/uL Carbon Dioxide 31 H (22-30) mmol/L BUN 68 H (7-17) mg/dL Creatinine 2.10 H (0.52-1.04) mg/dL Glucose 130 H (74-99) mg/dL POC Glucose (mg/dL) 260 H (75-99) mg/dL Calcium 8.0 L (8.4-10.2) mg/dL Ferritin (10.0-291.0) ng/mL Total Protein 5.1 L (6.3-8.2) g/dL Albumin 2.7 L (3.5-5.0) g/dL 05/22/21 Range/Units 07:21 RBC (3.80-5.40) m/uL Hgb (11.4-16.0) gm/dL Hct (34.0-46.0) % RDW (11.5-15.5) % Plt Count (150-450) k/uL Lymphocytes # (Manual) (1.0-4.8) k/uL Carbon Dioxide (22-30) mmol/L BUN (7-17) mg/dL Creatinine (0.52-1.04) mg/dL Glucose (74-99) mg/dL POC Glucose (mg/dL) 119 H (75-99) mg/dL Calcium (8.4-10.2) mg/dL Ferritin (10.0-291.0) ng/mL Total Protein (6.3-8.2) g/dL Albumin (3.5-5.0) g/dL Assessment and Plan Plan: Assessment: 1. Chronic kidney disease stage IV now progressed to end-stage renal disease. Etiology is nephrosclerosis and diabetic kidney disease. Patient agreed to proceed with replacement therapy. She has a permacath. Started on hemodialysis May 19. 2. Volume overload. Improving with ultrafiltration. 3. Anemia of chronic kidney disease maintained on Aranesp. Iron deficiency noted. 4. Hypertension with chronic kidney disease. Blood pressure on the lower side now. 5. Diabetes mellitus. Plan: Third treatment of hemodialysis today. Phosphorus 5.1. 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 Maintain IV iron. Hold hydralazine for systolic blood pressure less than 120.
[2021-05-22] MEDS: SODIUM FERRIC GLUCONAT-SUCROSE 125 MG in SODIUM CHLORIDE 0.9% 100 ML IVPB SCH (10:30)
[2021-05-22 11:38] LABS: Glucose,Whole Blood 215 mg/dL (75-99)
--- NOTE | 2021-05-22 16:00 | PN ---
PROGRESS NOTE This is an 81-year-old gentleman who is known to me from the past. The patient had a right leg wound debridement in the past. The patient came back with history of swelling and redness of the wound and also some scab formation and a superficial ulcer on the left lower extremity. We did the debridement yesterday. All the devitalized tissue was removed. Today we have changed the dressing. Base of the wound is clean. We placed Aquacel Silver to the wound with 4 x 4 and Kerlix and Yao wrap. On the left leg we have been using Triad. Plan is that we will change the dressing on . If the patient goes home, then we will follow her in the wound clinic. MMODL / IJN: [id number] /
[2021-05-22 16:31] LABS: Glucose,Whole Blood 166 mg/dL (75-99)
--- NOTE | 2021-05-22 17:50 | P.PN ---
Subjective Progress Note Date: 05/22/21 Elza Avery is a 81-year-old female patient of Dr. Ward who presented with progressive been worsening shortness of breath and increased edema to lower extremities over the past 2 weeks. Patient has a significant past medical history for chronic hypoxic respiratory failure on 3 L, diabetes mellitus, hy pertension, COPD, chronic kidney disease, CAD with coronary artery bypass graft surgery, pacemaker insertion and chronic diastolic congestive heart failure. Chest x-ray completed in ER showing findings suggestive with congestive heart failure small basilar effusions follow-up is recommended area patient also elevated troponin 0.078. BNP elevated 38,300. At this time patient has been started on IV Lasix. Cardiology services have been consulted. 2-D echo has been ordered. Patient is currently resting comfortably in bed. Patient reports slight improvement with shortness of breath. Patient complains of shortness of breath with activity. Patient denies chest pain. Patient denies nausea vomiting or diarrhea. Patient denies any urinary burning or frequency On 05/10/2021 Patient was seen and examined on the medical floor, she is alert and oriented x 3 in no distress, she is still complaining of shortness of breath otherwise she denies any complaints there is no fever or chills no headache or dizziness no chest pain no palpitation no cough no nausea or vomiting no abdominal pain no diarrhea no blood in the stools no burning with urination no frequency or urgency and no hematuria, there is no weakness or numbness in any of the extremities no change in vision speech or gait. On 05/11/2021 patient alert and oriented times 3. Patient is still complaining of some shortness of breath. Patient remains on IV Lasix 40 every 12. Nephrology and cardiology services are consulted. Weight down 97 kg just 96.5. Creatinine slightly increased to 2.89 bun 96. Patient denies chest pain. Patient denies nausea vomiting or diarrhea. Patient denies any urinary burning or frequency On 05/12/2021 patient was seen and examined on the telemetry floor, she is still complaining of shortness of breath especially with activity, otherwise she denies any complaints there is no fever or chills no headache or dizziness no chest pain no palpitation no cough no nausea or vomiting no abdominal pain no diarrhea no blood in the stools no burning with urination no frequency or urgency and no hematuria. On 05/13/2021 patient is alert and oriented 3. Creatinine 3.20 and bun 122. Per nephrology services plan to decrease torsemide from 80-40. Metabolic bone DC'd. Repeat labs in a.m. At this time patient denies chest pain or shortness of breath. Patient denies nausea vomiting or diarrhea. Patient denies any urinary burning or frequency On 05/14/2021 Patient was seen and examined on the medical floor, she is alert and oriented x 3 in no distress, she is still complaining of shortness of breath otherwise she denies any complaints there is no fever or chills no headache or dizziness no chest pain no palpitation no cough no nausea or vomiting no abdominal pain no diarrhea no blood in the stools no burning with urination no frequency or urgency and no hematuria, there is no weakness or numbness in any of the extremities no change in vision speech or gait. On 05/15/2021 patient was seen and examined on the telemetry floor she is still complaining of shortness of breath otherwise she denies any complaints , there is no fever or chills no headache or dizziness no chest pain, no palpitation no cough no nausea or vomiting no abdominal pain no diarrhea no blood in the stools no burning with urination no frequency or urgency and no hematuria, there is no weakness or numbness in any of the extremities no change in vision speech or gait. Input from cardiology and nephrology reviewed On 05/16/2021 patient was seen and examined on the telemetry floor she is still complaining of shortness of breath but somewhat less then yesterday, otherwise no complaints there is no fever or chills no headache or dizziness no chest pain, no palpitation no cough no nausea or vomiting no abdominal pain no diarrhea no blood in the stools no burning with urination no frequency or ur gency and no hematuria, there is no weakness or numbness in any of the extremities no change in vision speech or gait. Input from cardiology and nephrology reviewed On 05/17/2021 Patient is improving gradually, she is still complaining of shortness of breath otherwise she denies any complaints there is no fever or chills no headache or dizziness no chest pain no palpitation no cough no nausea or vomiting no abdominal pain no diarrhea no blood in the stools no burning with urination no frequency or urgency and no hematuria, there is no weakness or numbness in any of the extremities no change in vision speech or gait. On 05/18/2021 patient is still complaining of shortness of breath and ge neralized weakness otherwise she denies any complaints there is no fever or chills no headache or dizziness no chest pain no cough no nausea or vomiting no abdominal pain no diarrhea no blood in the stools no burning with urination no frequency or urgency and no hematuria. At this time, I had a prolonged discussion with patient, in the presence of 2 family members, hemodialysis and peritoneal dialysis discussed in detail, patient at this time is willing to restart hemodialysis, will consult Dr. Goins for dialysis catheter placement. On 05/19/2021 Patient was seen and examined on the medical floor, she is alert and oriented x 3 in no distress, she denies any complaints there is no fever or chills no headache or dizziness no chest pain no shortness of breath no palpitation no cough no nausea or vomiting no abdominal pain no diarrhea no blood in the stools no burning with urination no frequency or urgency and no hematuria, there is no weakness or numbness in any of the extremities no change in vision or speech. Gait was not tested. Dialysis catheter was placed yesterday, patient is receiving hemodialysis at this time, will continue to monitor recheck labs in a.m.. On 05/20/2021 Patient was seen and examined on the medical floor, she is alert and oriented x 3 in no distress, she denies any complaints there is no fever or chills no headache or dizziness no chest pain no shortness of breath no palpitation no cough no nausea or vomiting no abdominal pain no diarrhea no blood in the stools no burning with urination no frequency or urgency and no hematuria, there is no weakness or numbness in any of the extremities no change in vision speech or gait. Patient is complaining of some discomfort at the dialysis catheter site, otherwise she denies any complaints, she has a dialysis session scheduled for tomorrow, possible discharge to home on Friday if stable. On 05/21/2021 patient was seen and examined on the medical floor, she is undergoing hemodialysis at this time there is no fever or chills no headache or dizziness no chest pain no shortness of breath no cough no nausea or vomiting no abdominal pain no diarrhea no blood in the stools no burning with urination no frequency or urgency and no hematuria, at this time continue with hemodialysis if stable possible discharge to home tomorrow. On 05/22/2021 patient was seen and examined on the medical floor she is alert and oriented x 3 in no distress, she is complaining of fatigue and generalized weakness otherwise she denies any complaints there is no fever or chills no headache or dizziness no chest pain no shortness of breath no palpitation no cough no nausea or vomiting no abdominal pain no diarrhea no blood in the stools no burning with urination no frequency or urgency and no hematuria, there is no weakness or numbness in any of the extremities no change in vision speech or gait. Patient is scheduled for another session of hemodialysis today plan for discharge tomorrow Objective - Vital Signs Vital signs: Vital Signs Temp 97.7 F 05/22/21 08:00 Pulse 64 05/22/21 08:00 Resp 16 05/22/21 08:00 BP 114/61 05/22/21 08:00 Pulse Ox 100 05/22/21 08:00 Intake & Output 05/21/21 05/22/21 05/22/21 18:59 06:59 18:59 Intake Total 240 Output Total 2200 260 Balance -2200 -20 Weight 97.9 kg Intake: Oral 240 Output: Urine 200 260 Hemodialysis 2000 Other: Voiding Method External Catheter External Catheter - Exam In general patient is alert and oriented x 3 in no distress HEENT head normocephalic and atraumatic Neck is supple no JVD no goiter no lymphadenopathy no carotid bruit Chest examination reveals a scattered crackles in both bases no wheezing Cardiac exam reveals regular heart sounds S1 and S2 no gallops no murmurs Abdomen is soft nontender no organomegaly with normal bowel sounds Extremity exam reveals 1+ edema no cyanosis or clubbing Neurological examination reveals no gross focal deficits - Labs CBC & Chem 7: 05/22/21 05:53 05/22/21 05:53 Labs: Abnormal Lab Results - Last 24 Hours (Table) 05/20/21 05/21/21 05/21/21 Range/Units 09:17 16:38 20:09 RBC (3.80-5.40) m/uL Hgb (11.4-16.0) gm/dL Hct (34.0-46.0) % RDW (11.5-15.5) % Plt Count (150-450) k/uL Lymphocytes # (Manual) (1.0-4.8) k/uL Carbon Dioxide (22-30) mmol/L BUN (7-17) mg/dL Creatinine (0.52-1.04) mg/dL Glucose (74-99) mg/dL POC Glucose (mg/dL) 168 H 260 H (75-99) mg/dL Calcium (8.4-10.2) mg/dL Ferritin 541.0 H (10.0-291.0) ng/mL Total Protein (6.3-8.2) g/dL Albumin (3.5-5.0) g/dL 05/22/21 05/22/21 05/22/21 Range/Units 05:53 05:53 07:21 RBC 2.31 L (3.80-5.40) m/uL Hgb 7.5 L (11.4-16.0) gm/dL Hct 22.8 L (34.0-46.0) % RDW 17.4 H (11.5-15.5) % Plt Count 136 L (150-450) k/uL Lymphocytes # (Manual) 0.47 L (1.0-4.8) k/uL Carbon Dioxide 31 H (22-30) mmol/L BUN 68 H (7-17) mg/dL Creatinine 2.10 H (0.52-1.04) mg/dL Glucose 130 H (74-99) mg/dL POC Glucose (mg/dL) 119 H (75-99) mg/dL Calcium 8.0 L (8.4-10.2) mg/dL Ferritin (10.0-291.0) ng/mL Total Protein 5.1 L (6.3-8.2) g/dL Albumin 2.7 L (3.5-5.0) g/dL 05/22/21 Range/Units 11:36 RBC (3.80-5.40) m/uL Hgb (11.4-16.0) gm/dL Hct (34.0-46.0) % RDW (11.5-15.5) % Plt Count (150-450) k/uL Lymphocytes # (Manual) (1.0-4.8) k/uL Carbon Dioxide (22-30) mmol/L BUN (7-17) mg/dL Creatinine (0.52-1.04) mg/dL Glucose (74-99) mg/dL POC Glucose (mg/dL) 215 H (75-99) mg/dL Calcium (8.4-10.2) mg/dL Ferritin (10.0-291.0) ng/mL Total Protein (6.3-8.2) g/dL Albumin (3.5-5.0) g/dL Assessment and Plan Assessment: 1. Acute on chronic diastolic congestive heart failure 2. elevated troponin 3. Acute on chronic kidney disease 4. History of diabetes mellitus 5. History of hyperlipidemia 6. History of essential hypertension 7. History of coronary artery disease 8. History of cardiac arrhythmia with history of AICD and pacemaker placement 9. History of COPD 10. History of ongoing nicotine dependence DVT prophylaxis Lovenox. GI prophylaxis Protonix Cardiology and nephrology service is consulted Lasix DC'd. Torsemide decreased and metolazone DC'd per nephrology Repeat labs in a.m. Chest x-ray ordered for a.m.
[2021-05-22 21:16] LABS: Glucose,Whole Blood 188 mg/dL (75-99)
[2021-05-22] MEDS: TEMAZEPAM 15 MG CAP PO PRN (22:43)
[2021-05-22] MEDS: ATORVASTATIN 10 MG TAB PO SCH (22:43)
[2021-05-22] MEDS: INSULIN DETEMIR (LEVEMIR) 100 UNIT/ML SYR SQ SCH (22:45)
[2021-05-23 07:12] LABS: Glucose,Whole Blood 131 mg/dL (75-99)
[2021-05-23] MEDS: PANTOPRAZOLE 40 MG TABLET PO SCH (07:59)
[2021-05-23] MEDS: ENOXAPARIN 30 MG/0.3 ML SYRINGE SQ SCH (07:59)
[2021-05-23] MEDS: ASPIRIN 81 MG PO SCH (07:59)
[2021-05-23] MEDS: hydrALAZINE HCL 50 MG TAB PO SCH (07:59)
[2021-05-23] MEDS: MIRTAZAPINE 15 MG TAB PO SCH (07:59)
[2021-05-23] MEDS: allopurinoL 100 MG TAB PO SCH (07:59)
[2021-05-23] MEDS: carvediloL 6.25 MG TAB PO SCH (07:59)
[2021-05-23] MEDS: SODIUM FERRIC GLUCONAT-SUCROSE 125 MG in SODIUM CHLORIDE 0.9% 100 ML IVPB SCH (08:11)
[2021-05-23 11:17] LABS: Glucose,Whole Blood 259 mg/dL (75-99)
--- NOTE | 2021-05-23 11:20 | P.DS ---
Providers Date of admission: 05/08/21 16:52 Expected date of discharge: 05/23/21 Attending physician: Lona Arias Consults: 05/08/21 16:52 Consult Physician Routine Consulting Provider: Stephon Chen Consult Reason/Comments: heart failure exacerbation, elevated troponin Do you want consulting provider notified?: Already Contacted 05/09/21 13:30 Consult Physician Routine Consulting Provider: Nancy Roland Consult Reason/Comments: Acute on chronic renal failure Do you want consulting provider notified?: Yes 05/18/21 13:16 Consult Physician Routine Consulting Provider: Jorge A Goins Consult Reason/Comments: dialysis port access Do you want consulting provider notified?: Yes Primary care physician: Carissa Ward Hospital Course: Diagnosis on discharge: 1. Acute on chronic diastolic congestive heart failure 2. elevated troponin, patient evaluated by cardiology no intervention recommended at this time 3. Acute on chronic kidney disease, patient has stage IV chronic kidney disease which progressed during this admission to end-stage renal disease patient was started on hemodialysis during this admission 4. History of diabetes mellitus 5. History of hyperlipidemia 6. History of essential hypertension 7. History of coronary artery disease 8. History of cardiac arrhythmia with history of AICD and pacemaker placement 9. History of COPD 10. History of ongoing nicotine dependence Hospital course: Elza Avery is a 81-year-old female patient of Dr. Ward who presented with progressive been worsening shortness of breath and increased edema to lower extremities over the past 2 weeks. Patient has a significant past medical history for chronic hypoxic respiratory failure on 3 L, diabetes mellitus, hypertension, COPD, chronic kidney disease, CAD with coronary artery bypass graft surgery, pacemaker insertion and chronic diastolic congestive heart failure. Chest x-ray completed in ER showing findings suggestive with congestive heart failure small basilar effusions follow-up is recommended area patient also elevated troponin 0.078. BNP elevated 38,300. At this time patient has been started on IV Lasix. Cardiology services have been consulted. 2-D echo has been ordered. Patient is currently resting comfortably in bed. Patient reports slight improvement with shortness of breath. Patient complains of shortness of breath with activity. Patient denies chest pain. Patient denies nausea vomiting or diarrhea. Patient denies any urinary burning or frequency On 05/10/2021 Patient was seen and examined on the medical floor, she is alert and oriented x 3 in no distress, she is still complaining of shortness of breath otherwise she denies any complaints there is no fever or chills no headache or dizziness no chest pain no palpitation no cough no nausea or vomiting no abdominal pain no diarrhea no blood in the stools no burning with urination no frequency or urgency and no hematuria, there is no weakness or numbness in any of the extremities no change in vision speech or gait. On 05/11/2021 patient alert and oriented times 3. Patient is still complaining of some shortness of breath. Patient remains on IV Lasix 40 every 12. Nephrology and cardiology services are consulted. Weight down 97 kg just 96.5. Creatinine slightly increased to 2.89 bun 96. Patient denies chest pain. Patient denies nausea vomiting or diarrhea. Patient denies any urinary burning or frequency On 05/12/2021 patient was seen and examined on the telemetry floor, she is still complaining of shortness of breath especially with activity, otherwise she denies any complaints there is no fever or chills no headache or dizziness no chest pain no palpitation no cough no nausea or vomiting no abdominal pain no diarrhea no blood in the stools no burning with urination no frequency or urgency and no hematuria. On 05/13/2021 patient is alert and oriented 3. Creatinine 3.20 and bun 122. Per nephrology services plan to decrease torsemide from 80-40. Metabolic bone DC'd. Repeat labs in a.m. At this time patient denies chest pain or shortness of breath. Patient denies nausea vomiting or diarrhea. Patient denies any urinary burning or frequency On 05/14/2021 Patient was seen and examined on the medical floor, she is alert and oriented x 3 in no distress, she is still complaining of shortness of breath otherwise she denies any complaints there is no fever or chills no headache or dizziness no chest pain no palpitation no cough no nausea or vomiting no ab dominal pain no diarrhea no blood in the stools no burning with urination no frequency or urgency and no hematuria, there is no weakness or numbness in any of the extremities no change in vision speech or gait. On 05/15/2021 patient was seen and examined on the telemetry floor she is still complaining of shortness of breath otherwise she denies any complaints , there is no fever or chills no headache or dizziness no chest pain, no palpitation no cough no nausea or vomiting no abdominal pain no diarrhea no blood in the stools no burning with urination no frequency or urgency and no hematuria, there is no weakness or numbness in any of the extremities no change in vision speech or gait. Input from cardiology and nephrology reviewed On 05/16/2021 patient was seen and examined on the telemetry floor she is still complaining of shortness of breath but somewhat less then yesterday, otherwise no complaints there is no fever or chills no headache or dizziness no chest pain, no palpitation no cough no nausea or vomiting no abdominal pain no diarrhea no blood in the stools no burning with urination no frequency or urgency and no hematuria, there is no weakness or numbness in any of the e xtremities no change in vision speech or gait. Input from cardiology and nephrology reviewed On 05/17/2021 Patient is improving gradually, she is still complaining of shortness of breath otherwise she denies any complaints there is no fever or chills no headache or dizziness no chest pain no palpitation no cough no nausea or vomiting no abdominal pain no diarrhea no blood in the stools no burning with urination no frequency or urgency and no hematuria, there is no weakness or numbness in any of the extremities no change in vision speech or gait. On 05/18/2021 patient is still complaining of shortness of breath and generalized weakness otherwise she denies any complaints there is no fever or chills no headache or dizziness no chest pain no cough no nausea or vomiting no abdominal pain no diarrhea no blood in the stools no burning with urination no frequency or urgency and no hematuria. At this time, I had a prolonged discussion with patient, in the presence of 2 family members, hemodialysis and peritoneal dialysis discussed in detail, patient at this time is willing to restart hemodialysis, will consult Dr. Goins for dialysis catheter placement. On 05/19/2021 Patient was seen and examined on the medical floor, she is alert and oriented x 3 in no distress, she denies any complaints there is no fever or chills no headache or dizziness no chest pain no shortness of breath no palpitation no cough no nausea or vomiting no abdominal pain no diarrhea no blood in the stools no burning with urination no frequency or urgency and no hematuria, there is no weakness or numbness in any of the extremities no change in vision or speech. Gait was not tested. Dialysis catheter was placed yesterday, patient is receiving hemodialysis at this time, will continue to monitor recheck labs in a.m.. On 05/20/2021 Patient was seen and examined on the medical floor, she is alert and oriented x 3 in no distress, she denies any complaints there is no fever or chills no headache or dizziness no chest pain no shortness of breath no palpitation no cough no nausea or vomiting no abdominal pain no diarrhea no blood in the stools no burning with urination no frequency or urgency and no h ematuria, there is no weakness or numbness in any of the extremities no change in vision speech or gait. Patient is complaining of some discomfort at the dialysis catheter site, otherwise she denies any complaints, she has a dialysis session scheduled for tomorrow, possible discharge to home on Friday if stable. On 05/21/2021 patient was seen and examined on the medical floor, she is undergoing hemodialysis at this time there is no fever or chills no headache or dizziness no chest pain no shortness of breath no cough no nausea or vomiting no abdominal pain no diarrhea no blood in the stools no burning with urination no frequency or urgency and no hematuria, at this time continue with hemodialysis if stable possible discharge to home tomorrow. On 05/22/2021 patient was seen and examined on the medical floor she is alert and oriented x 3 in no distress, she is complaining of fatigue and generalized weakness otherwise she denies any complaints there is no fever or chills no headache or dizziness no chest pain no shortness of breath no palpitation no cough no nausea or vomiting no abdominal pain no diarrhea no blood in the stools no burning with urination no frequency or urgency and no hematuria, there is no weakness or numbness in any of the extremities no change in vision speech or gait. Patient is scheduled for another session of hemodialysis today plan for discharge tomorrow Patient Condition at Discharge: Serious Plan - Discharge Summary Discharge Rx Participant: No New Discharge Prescriptions: New Darbepoetin Patrice [Aranesp] 40 mcg SQ Q7D each Torsemide [Demadex] 40 mg PO DAILY 30 Days #30 tablet hydrALAZINE HCL [Apresoline] 50 mg PO TID tab Continue Simvastatin [Zocor] 5 mg PO HS Aspirin EC [Ecotrin Low Dose] 81 mg PO DAILY Mirtazapine 15 mg PO DAILY Albuterol Nebulized [Ventolin Nebulized] 2.5 mg INHALATION RT-QID PRN PRN Reason: Shortness Of Breath Sertraline [Zoloft] 50 mg PO DAILY Insulin Detemir (Levemir) [Levemir] 25 unit SQ HS Temazepam 30 mg PO HS PRN PRN Reason: SLEEP Allopurinol [Zyloprim] 100 mg PO DAILY Ergocalciferol [Vitamin D2 (1250 Mcg = 39901 Iu)] 50,000 unit PO BONDS Insulin Lispro [humaLOG Kwikpen] See Protocol SQ AC-TID PRN PRN Reason: HIGH BLOOD SUGAR carvediloL [Coreg] 6.25 mg PO BID-W/MEALS Discontinued Torsemide [Demadex] 20 mg PO DAILY hydrALAZINE HCL [Apresoline] 25 mg PO BID metOLazone [Zaroxolyn] 5 mg PO MOWEFR Discharge Medication List Simvastatin [Zocor] 5 mg PO HS 11/29/17 [History] Aspirin EC [Ecotrin Low Dose] 81 mg PO DAILY 03/09/20 [History] Mirtazapine 15 mg PO DAILY 11/17/20 [History] Albuterol Nebulized [Ventolin Nebulized] 2.5 mg INHALATION RT-QID PRN 11/24/20 [History] Temazepam 30 mg PO HS PRN 11/24/20 [History] Allopurinol [Zyloprim] 100 mg PO DAILY 05/01/21 [History] Ergocalciferol [Vitamin D2 (1250 Mcg = 72571 Iu)] 50,000 unit PO BONDS 05/01/21 [History] Insulin Detemir (Levemir) [Levemir] 25 unit SQ HS 05/01/21 [History] Insulin Lispro [humaLOG Kwikpen] See Protocol SQ AC-TID PRN 05/01/21 [History] Sertraline [Zoloft] 50 mg PO DAILY 05/01/21 [History] carvediloL [Coreg] 6.25 mg PO BID-W/MEALS 05/08/21 [History] Darbepoetin Patrice [Aranesp] 40 mcg SQ Q7D each 05/23/21 [Rx] Torsemide [Demadex] 40 mg PO DAILY 30 Days #30 tablet 05/23/21 [Rx] hydrALAZINE HCL [Apresoline] 50 mg PO TID tab 05/23/21 [Rx] Follow up Appointment(s)/Referral(s): Carissa Ward MD [Primary Care Provider] - 1-2 days [facility] [NON-STAFF] - 05/25/21 2:00 pm (Please arrive to first appointment 15 minutes early. ) Patient Instructions/Handouts: Heart Failure (ER)
[2021-05-23] MEDS: INSULIN ASPART (NovoLOG) 100 UNIT/ML VIAL SQ SCH (11:32)
--- NOTE | 2021-05-23 12:56 | P.PN ---
Subjective Patient is seen in follow-up for chronic kidney disease now progressed to end- stage renal disease. She had a permacath placed on May 19 and was started on hemodialysis. Tolerating dialysis and ultrafiltration well. Edema improving. No chest pain or shortness of breath. On 2 L nasal cannula. No changes overnight. Wants to go home. Vital signs are stable. General: The patient appeared well nourished and normally developed. HEENT: Head exam is unremarkable. LUNGS: Breath sounds decreased. HEART: Rate and Rhythm are regular. ABDOMEN: Soft, no distention. EXTREMITITES: 1+ edema. Objective - Vital Signs Vital signs: Vital Signs Temp 97.6 F 05/23/21 07:45 Pulse 58 L 05/23/21 08:00 Resp 17 05/23/21 08:00 BP 125/70 05/23/21 07:45 Pulse Ox 99 05/23/21 07:45 Intake & Output 05/22/21 05/23/21 05/23/21 18:59 06:59 18:59 Intake Total 780 Output Total 1500 260 Balance -1500 520 Weight 97.9 kg Intake: Oral 780 Output: Urine 260 Hemodialysis 1500 Other: Voiding Method External Catheter Toilet # Voids 1 1 # Bowel Movements 1 - Labs CBC & Chem 7: 05/22/21 05:53 05/22/21 05:53 Labs: Abnormal Lab Results - Last 24 Hours (Table) 05/22/21 05/22/21 05/23/21 Range/Units 16:30 21:14 07:10 POC Glucose (mg/dL) 166 H 188 H 131 H (75-99) mg/dL 05/23/21 Range/Units 11:11 POC Glucose (mg/dL) 259 H (75-99) mg/dL Assessment and Plan Plan: Assessment: 1. Chronic kidney disease stage IV now progressed to end-stage renal disease. Etiology is nephrosclerosis and diabetic kidney disease. Patient agreed to proceed with replacement therapy. She has a permacath. Started on hemodialysis May 19. 2. Volume overload. Improving with ultrafiltration. 3. Anemia of chronic kidney disease maintained on Aranesp. Iron deficiency noted. 4. Hypertension with chronic kidney disease. Blood pressure on the lower side now. 5. Diabetes mellitus. Plan: Hemodialysis today. She will be maintained on Friday schedule. Phosphorus 5.1. Outpatient dialysis has been set up. Maintain IV iron. Decrease dose of hydralazine to 25 mg 3 times daily - Hold hydralazine for systolic blood pressure less than 125.
[2021-05-23 12:57] VITALS: BMI 34.8
[2021-05-23 14:50] VITALS: BP 113/49; PULSE 60; RESP 18; TEMP 97.5
[2021-05-23] MEDS ORDERED: hydrALAZINE HCL 25 MG TAB PO SCH (16:00)
--- NOTE | 2021-05-24 08:07 | CDI ---
Documentation Clarification Form Date: 05/24/21 From: Nancy Summers Admit Date: 05/08/2021 04:52:00 PM Patient Name: Elza Avery Visit Number: [id number] Discharge Date: 05/23/2021 05:52:00 PM ATTENTION: The Clinical Documentation Specialists (CDI) and [facility] Coding Staff appreciate your assistance in clarifying documentation. Please respond to the clarification below the line at the bottom and electronically sign. The CDI & [facility] Coding staff will review the response and follow-up if needed. Please note: Queries are made part of the Legal Health Record. If you have any questions, please contact the author of this message via ITS. Dr. Jorge A Goins, A debridement is documented in your progress note on 05/22. Additional clarification regarding the procedure is requested. History/Risk Factors: HTN w ESRD & acute on chronic diastolic CHF, ANABEL, chronic respiratory failure w hypoxia, Clinical Indicators & Treatment: The patient came back with history of swelling and redness of the wound and also some scab formation and a superficial ulcer on the left lower extremity. We did the debridement yesterday. All the devitalized tissue was removed. Today we have changed the dressing. Base of the wound is clean. We placed Aquacel Silver to the wound with 4 x 4 and Kerlix and Yao wrap. On the left leg we have been using Triad. Please clarify the type of procedure performed: [ X ] Excisional debridement (the removal of necrotic, devitalized tissue or slough by means of cutting away of tissue) [ ] Non-excisional debridement (the removal of necrotic, devitalized tissue or slough by means of flushing, brushing, or washing. (Irrigation) [ ] Other; please specify [ ] Unable to determine Please include these elements in describing the debridement. Five elements required for accurate and compliant documentation of a debridement: Technique used (e.g., excisional, excised, cutting, brushing, jet lavage etc.) Instrument(s) used (e.g., scalpel, curette, etc.) Nature of the tissue removed (e.g., necrotic, devitalized tissues, non-viable tissue, etc.) Appearance and size of the wound (e.g., down to fresh bleeding tissue, 7cm x 10cm, etc.) Depth of the debridement* (e.g., skin, subcutaneous tissue, fascia, muscle, bone, etc.) Excisional debridement, down to subcutaneous tissue MTDD
== END 2021-05-23 17:52 | disposition home or self-care (01) | DRG 264 ==
LOC: EC 14:14 → 3SCARD 16:52 → 4SSUR 05-21 21:00
PROVIDERS: ADMIT Internal Medicine; ATTEND Internal Medicine
PROC: 06H033Z Insertion of Infusion Device into Inferior Vena Cava, Percutaneous Approach (ICD-10-PCS; 2021-05-19 08:30)
PROC: 5A1D70Z Performance of Urinary Filtration, Intermittent, Less than 6 Hours Per Day (ICD-10-PCS; 2021-05-19 08:30)
PROC: 0JBP0ZZ Excision of Left Lower Leg Subcutaneous Tissue and Fascia, Open Approach (ICD-10-PCS; principal; 2021-05-21)
DX: I13.2 Hypertensive heart and chronic kidney disease with heart failure and with stage 5 chronic kidney disease, or end stage renal disease (principal); I50.33 Acute on chronic diastolic (congestive) heart failure; N18.6 End stage renal disease; N17.9 Acute kidney failure, unspecified; J96.11 Chronic respiratory failure with hypoxia; E87.3 Alkalosis; E87.1 Hypo-osmolality and hyponatremia; L97.929 Non-pressure chronic ulcer of unspecified part of left lower leg with unspecified severity; D63.1 Anemia in chronic kidney disease; E83.9 Disorder of mineral metabolism, unspecified; I27.20 Pulmonary hypertension, unspecified; E11.22 Type 2 diabetes mellitus with diabetic chronic kidney disease; E11.622 Type 2 diabetes mellitus with other skin ulcer; J44.9 Chronic obstructive pulmonary disease, unspecified; Z79.4 Long term (current) use of insulin; Z20.822 Contact with and (suspected) exposure to COVID-19; D50.9 Iron deficiency anemia, unspecified; E89.0 Postprocedural hypothyroidism; E78.5 Hyperlipidemia, unspecified; I08.1 Rheumatic disorders of both mitral and tricuspid valves; I25.10 Atherosclerotic heart disease of native coronary artery without angina pectoris; G47.33 Obstructive sleep apnea (adult) (pediatric); R77.8 Other specified abnormalities of plasma proteins; E66.9 Obesity, unspecified; Z68.34 Body mass index [BMI] 34.0-34.9, adult; Z79.82 Long term (current) use of aspirin; Z79.899 Other long term (current) drug therapy; Z95.810 Presence of automatic (implantable) cardiac defibrillator; Z99.81 Dependence on supplemental oxygen; Z95.1 Presence of aortocoronary bypass graft; Z87.891 Personal history of nicotine dependence; Z86.19 Personal history of other infectious and parasitic diseases; Z90.49 Acquired absence of other specified parts of digestive tract; Z87.19 Personal history of other diseases of the digestive system; Z98.84 Bariatric surgery status; Z90.710 Acquired absence of both cervix and uterus; Z87.42 Personal history of other diseases of the female genital tract; Z98.42 Cataract extraction status, left eye; Z87.39 Personal history of other diseases of the musculoskeletal system and connective tissue; Z98.890 Other specified postprocedural states; Z71.3 Dietary counseling and surveillance; Z88.2 Allergy status to sulfonamides; Z80.8 Family history of malignant neoplasm of other organs or systems; Z82.49 Family history of ischemic heart disease and other diseases of the circulatory system
CPT/HCPCS: 36415; 36558; 71045; 71046; 76937; 77001; 80048; 80053; 82728; 83540; 83550; 83735; 83880; 84100; 84484; 85025; 85610; 85730; 86704; 86706; 87340; 87635; 90935; 93005; 93306; 94760; 96374; 96376; 99285

== ENCOUNTER 2021-05-26 03:51 | Inpatient (IN) | payer MEDICARE, BC ==
--- NOTE | 2021-05-26 04:07 | ED ---
Weakness HPI - General Chief complaint: Weakness Stated complaint: Weakness Time Seen by Provider: 05/26/21 03:53 Source: EMS Mode of arrival: EMS Limitations: no limitations - Related Data Home Medications Medication Instructions Recorded Confirmed Simvastatin [Zocor] 5 mg PO HS 11/29/17 05/08/21 Aspirin EC [Ecotrin Low Dose] 81 mg PO DAILY 03/09/20 05/08/21 Mirtazapine 15 mg PO DAILY 11/17/20 05/08/21 Albuterol Nebulized [Ventolin 2.5 mg INHALATION RT-QID PRN 11/24/20 05/08/21 Nebulized] Temazepam 30 mg PO HS PRN 11/24/20 05/08/21 Allopurinol [Zyloprim] 100 mg PO DAILY 05/01/21 05/08/21 Ergocalciferol [Vitamin D2 (1250 50,000 unit PO BONDS 05/01/21 05/08/21 Mcg = 90728 Iu)] Insulin Detemir (Levemir) [Levemir] 25 unit SQ HS 05/01/21 05/08/21 Insulin Lispro [humaLOG Kwikpen] See Protocol SQ AC-TID PRN 05/01/21 05/08/21 Sertraline [Zoloft] 50 mg PO DAILY 05/01/21 05/08/21 carvediloL [Coreg] 6.25 mg PO BID-W/MEALS 05/08/21 05/08/21 Previous Rx's Medication Instructions Recorded Darbepoetin Patrice [Aranesp] 40 mcg SQ Q7D each 05/23/21 Torsemide [Demadex] 40 mg PO DAILY 30 Days #30 tablet 05/23/21 hydrALAZINE HCL [Apresoline] 50 mg PO TID tab 05/23/21 Allergies Allergy/AdvReac Type Severity Reaction Status Date / Time Sulfa (Sulfonamide Allergy Unknown Verified 05/26/21 04:03 Antibiotics) sulfamethoxazole Allergy Unknown Verified 05/26/21 04:03 [From Bactrim] trimethoprim [From Bactrim] Allergy Unknown Verified 05/26/21 04:03 Review of Systems ROS Statement: Those systems with pertinent positive or pertinent negative responses have been documented in the HPI. ROS Other: All systems not noted in ROS Statement are negative. Past Medical History Past Medical History: Heart Failure, Diabetes Mellitus, Hypertension, Musculoskeletal Disorder, Sleep Apnea/CPAP/BIPAP, Thyroid Disorder Additional Past Medical History / Comment(s): COPD, CHF with diastolic heart failure, hypertension, chronic kidney disease stage III, coronary artery disease with previous bypass surgery, history of pacemaker insertion 2014, diabetes mellitus, hypertension, obstructive sleep apnea, thyroid nodules, hyp erlipidemia, history of smoking in the order of [id number] History of Any Multi-Drug Resistant Organisms: ESBL Date of last positivie culture/infection: 10/18/19 MDRO Source:: ESBL URINE Past Surgical History: Appendectomy, Back Surgery, Bariatric Surgery, Coronary Bypass/CABG, Heart Catheterization, Hysterectomy, Pacemaker Additional Past Surgical History / Comment(s): LAP BAND, CATARACT LEFT EYE, NEUROMA ON FOOT, KNEE ARTHROSCOPY, PACEMAKER ([employer] 04/18/2015) Partial thyroidectomy 1999 Past Anesthesia/Blood Transfusion Reactions: No Reported Reaction Type of Cardiac Device: Permanent Pacemaker Device Placement Date:: 04/18/2015 [employer] Past Psychological History: No Psychological Hx Reported Smoking Status: Former smoker Past Alcohol Use History: None Reported Past Drug Use History: None Reported - Past Family History Son(s) Family Medical History: Cancer Additional Family Medical History / Comment(s): MELANOMA Brother(s) Family Medical History: Cancer Father History Unknown: Yes Family Medical History: Cancer Mother Family Medical History: Coronary Artery Disease (CAD) General Exam Limitations: no limitations Course Vital Signs 05/26/21 03:52 Temperature 98.3 F Pulse Rate 75 Respiratory 18 Rate Blood Pressure 123/55 O2 Sat by Pulse 92 L Oximetry EKG Findings - EKG Comments: EKG Findings:: EKG shows paced 67 QRS 204 QTC 545 Medical Decision Making - Lab Data Result diagrams: 05/26/21 04:22 05/26/21 04:22 Lab Results 05/26/21 05/26/21 05/26/21 Range/Units 04:22 04:22 04:22 WBC 6.0 (3.8-10.6) k/uL RBC 2.31 L (3.80-5.40) m/uL Hgb 7.1 L (11.4-16.0) gm/dL Hct 22.6 L (34.0-46.0) % MCV 98.2 (80.0-100.0) fL MCH 31.0 (25.0-35.0) pg MCHC 31.6 (31.0-37.0) g/dL RDW 16.6 H (11.5-15.5) % Plt Count 128 L (150-450) k/uL MPV 10.6 Neutrophils % (Manual) 82 % Lymphocytes % (Manual) 7 % Monocytes % (Manual) 11 % Neutrophils # (Manual) 4.92 (1.3-7.7) k/uL Lymphocytes # (Manual) 0.42 L (1.0-4.8) k/uL Monocytes # (Manual) 0.66 (0-1.0) k/uL Nucleated RBCs 0 (0-0) /100 WBC Manual Slide Review Performed Polychromasia Present Hypochromasia Slight Anisocytosis Slight Anisocytosis (manual) Present Macrocytosis Slight PT 12.0 (9.0-12.0) sec INR 1.1 (<1.2) APTT 22.7 (22.0-30.0) sec Sodium 132 L (137-145) mmol/L Potassium 3.7 (3.5-5.1) mmol/L Chloride 95 L (98-107) mmol/L Carbon Dioxide 30 (22-30) mmol/L Anion Gap 7 mmol/L BUN 31 H (7-17) mg/dL Creatinine 2.24 H (0.52-1.04) mg/dL Est GFR (CKD-EPI)AfAm 23 (>60 ml/min/1.73 sqM) Est GFR (CKD-EPI)NonAf 20 (>60 ml/min/1.73 sqM) Glucose 158 H (74-99) mg/dL Calcium 8.0 L (8.4-10.2) mg/dL Phosphorus 4.1 (2.5-4.5) mg/dL Magnesium 2.0 (1.6-2.3) mg/dL Total Bilirubin 0.4 (0.2-1.3) mg/dL AST 24 (14-36) U/L ALT 21 (4-34) U/L Alkaline Phosphatase 74 (38-126) U/L Troponin I (0.000-0.034) ng/mL NT-Pro-B Natriuret Pep pg/mL Total Protein 5.2 L (6.3-8.2) g/dL Albumin 2.9 L (3.5-5.0) g/dL 05/26/21 05/26/21 Range/Units 04:22 04:22 WBC (3.8-10.6) k/uL RBC (3.80-5.40) m/uL Hgb (11.4-16.0) gm/dL Hct (34.0-46.0) % MCV (80.0-100.0) fL MCH (25.0-35.0) pg MCHC (31.0-37.0) g/dL RDW (11.5-15.5) % Plt Count (150-450) k/uL MPV Neutrophils % (Manual) % Lymphocytes % (Manual) % Monocytes % (Manual) % Neutrophils # (Manual) (1.3-7.7) k/uL Lymphocytes # (Manual) (1.0-4.8) k/uL Monocytes # (Manual) (0-1.0) k/uL Nucleated RBCs (0-0) /100 WBC Manual Slide Review Polychromasia Hypochromasia Anisocytosis Anisocytosis (manual) Macrocytosis PT (9.0-12.0) sec INR (<1.2) APTT (22.0-30.0) sec Sodium (137-145) mmol/L Potassium (3.5-5.1) mmol/L Chloride (98-107) mmol/L Carbon Dioxide (22-30) mmol/L Anion Gap mmol/L BUN (7-17) mg/dL Creatinine (0.52-1.04) mg/dL Est GFR (CKD-EPI)AfAm (>60 ml/min/1.73 sqM) Est GFR (CKD-EPI)NonAf (>60 ml/min/1.73 sqM) Glucose (74-99) mg/dL Calcium (8.4-10.2) mg/dL Phosphorus (2.5-4.5) mg/dL Magnesium (1.6-2.3) mg/dL Total Bilirubin (0.2-1.3) mg/dL AST (14-36) U/L ALT (4-34) U/L Alkaline Phosphatase (38-126) U/L Troponin I 1.080 H* (0.000-0.034) ng/mL NT-Pro-B Natriuret Pep 45817 pg/mL Total Protein (6.3-8.2) g/dL Albumin (3.5-5.0) g/dL Disposition Clinical Impression: Troponin level elevated, Hx of CABG, Acute pulmonary edema, CKD (chronic kidney disease), Chronic respiratory failure, Pleural effusion, Acute exacerbation of chronic obstructive pulmonary disease Disposition: ADMITTED IP TO THIS HOSP Condition: Serious Is patient prescribed a controlled substance at d/c from ED?: No
[2021-05-26 04:42] LABS: Anisocytosis Slight; HCT 22.6 % (34.0-46.0); HGB 7.1 gm/dL (11.4-16.0); Hypochromasia Slight; INR 1.1 (<1.2); MCHC 31.6 g/dL (31.0-37.0); MCV 98.2 fL (80.0-100.0); Macrocytosis Slight; Mean Platelet Volume 10.6; Partial Thromboplastin Time 22.7 sec (22.0-30.0); Platelet Count 128 k/uL (150-450); RBC 2.31 m/uL (3.80-5.40); RDW 16.6 % (11.5-15.5)
[2021-05-26 04:46] LABS: Albumin 2.9 g/dL (3.5-5.0); Phosphorus 4.1 mg/dL (2.5-4.5); Potassium 3.7 mmol/L (3.5-5.1); Total Bilirubin 0.4 mg/dL (0.2-1.3); Total Protein 5.2 g/dL (6.3-8.2)
[2021-05-26 04:59] LABS: Lymphocytes # (M) 0.42 k/uL (1.0-4.8); Monocytes # (M) 0.66 k/uL (0-1.0); Neutrophils # (M) 4.92 k/uL (1.3-7.7); Neutrophils % (M) 82 %; Nucleated Red Blood Cells 0 /100 WBC (0-0); Polychromasia Present; Total Cells Counted 100
[2021-05-26 05:00] LABS: Anisocytosis (M) Present
--- NOTE | 2021-05-26 05:01 | XR ---
EXAMINATION TYPE: XR chest 2V DATE OF EXAM: 05/26/2021 COMPARISON: 05/19/2021 HISTORY: Weakness TECHNIQUE: 2 views FINDINGS: Heart is enlarged. There is mild pulmonary congestion. There is minimal blunting of the cos tophrenic angles. There is left axillary pacemaker. There is right central venous catheter with tip i n the superior vena cava. IMPRESSION: Mild heart failure. Small pleural effusions. Pulmonary congestion slightly worse than las t exam.
[2021-05-26] MEDS ORDERED: NALOXONE 0.4 MG/ML 1 ML VIAL IV PRN (05:09)
[2021-05-26] MEDS ORDERED: NITROGLYCERIN SL TABS 0.4 MG TAB SUBLINGUAL PRN (05:09)
[2021-05-26] MEDS ORDERED: MORPHINE SULFATE 4 MG/ML SYRINGE IV PRN (05:09)
[2021-05-26] MEDS ORDERED: ASPIRIN 81 MG PO STA (05:09)
[2021-05-26] MEDS: SODIUM CHLORIDE 0.9% 1,000 ML IV SCH (05:42)
[2021-05-26] MEDS: HEPARIN SOD,PORK IN 0.45% NACL 25,000 UNIT in 0.45% NACL 1 250ML.BAG IV SCH (05:46)
--- NOTE | 2021-05-26 13:00 | ECHOF ---
Referral Reason:elevTrop MEASUREMENTS -------- HEIGHT: 167.6 cm WEIGHT: 95.3 kg BP: 112/54 RVIDd: 3.6 cm (< 3.3) IVSd: 1.5 cm (0.6 - 1.1) LVIDd: 5.5 cm (3.9 - 5.3) LVPWd: 1.5 cm (0.6 - 1.1) IVSs: 2.4 cm LVIDs: 4.3 cm LVPWs: 1.8 cm LA Diam: 4.7 cm (2.7 - 3.8) LAESV Index (A-L): 40.55 ml/m Ao Diam: 3.0 cm (2.0 - 3.7) AV Cusp: 1.9 cm (1.5 - 2.6) MV EXCURSION: 20.477 mm (> 18.000) MV EF SLOPE: 86 mm/s (70 - 150) EPSS: 0.7 cm RAP: 15.00 mmHg RVSP: 48.41 mmHg FINDINGS -------- Paced rhythm. This was a technically good study. The left ventricular size is normal. There is moderate concentric left ventricular hypertrophy. O verall left ventricular systolic function is moderate-severely impaired with, an EF between 30 - 35 % . Apical anterior LV wall motion is hypokinetic. Apical inferior LV wall motion is hypokinetic. Apical septum LV wall motion is hypokinetic. The right ventricle is mildly enlarged. LA is severely dilated >40 ml/m2 The right atrium is normal in size. Interatrial and interventricular septum intact. The aortic valve is trileaflet, and appears structurally normal. No aortic stenosis or regurgitation. The mitral valve leaflets are mildly thickened. Mild mitral annular calcification present. Mild-t o-moderate mitral regurgitation is present. The peak and mean MV gradients are 17.91mmHg 4.29mmHg as measured by doppler. Mild tricuspid regurgitation present. There is moderate pulmonary hypertension. The right ventric ular systolic pressure, as measured by Doppler, is 48.41mmHg. Trace/mild (physiologic) pulmonic regurgitation. The aortic root size is normal. The inferior vena cava is dilated with no significant inspiratory collapse which is consistent estima phillip right atrial pressure of >15 mmHg. There is no pericardial effusion. CONCLUSIONS -------- 1. The left ventricular size is normal. 2. There is moderate concentric left ventricular hypertrophy. 3. Overall left ventricular systolic function is moderate-severely impaired with, an EF between 30 - 35 %. 4. Apical anterior LV wall motion is hypokinetic. 5. Apical inferior LV wall motion is hypokinetic. 6. Apical septum LV wall motion is hypokinetic. 7. The right ventricle is mildly enlarged. 8. LA is severely dilated >40 ml/m2 9. The aortic valve is trileaflet, and appears structurally normal. No aortic stenosis or regurgitati on. 10. The mitral valve leaflets are mildly thickened. 11. Mild mitral annular calcification present. 12. [id number] mitral regurgitation is present. 13. The peak and mean MV gradients are 17.91mmHg 4.29mmHg as measured by doppler. 14. Mild tricuspid regurgitation present. 15. There is moderate pulmonary hypertension. 16. The right ventricular systolic pressure, as measured by Doppler, is 48.41mmHg. 17. Trace/mild (physiologic) pulmonic regurgitation. 18. The inferior vena cava is dilated with no significant inspiratory collapse which is consistent es timated right atrial pressure of >15 mmHg. 19. There is no pericardial effusion. COMPUTERIZED TABLE CUTTER: Rosanne Young RDCS
--- NOTE | 2021-05-26 15:41 | P.HPIM ---
History of Present Illness H&P Date: 05/26/21 Elza Avery, is an 81-year-old female who presented to [facility] emergency room due to severe weakness and fatigue. Patient was recently admitted to the hospital, she was discharged home 5 days ago, during her last admission she was started on hemodialysis, she had 1 session of h emodialysis as outpatient yesterday, however patient was extremely weak she was having difficulty standing up and walking and her decided to bring her back to emergency room. She was evaluated in emergency room vital examination revealed a temperature of 98.3 pulse 75 respiration 18 blood pressure 123/55 pulse ox 92% on room air Laboratory data reveals a white blood count of 6.0 hemoglobin 7.1 platelet count 128 sodium 132 potassium 3.7 chloride 95 CO2 30 BUN 31 creatinine 2.24 glucose 1 58 troponin 1.08 Chest x-ray revealed evidence of mild heart failure with small bilateral pleural effusions and pulmonary congestion, EKG revealed ventricular paced rhythm Patient was admitted to telemetry floor cardiology consultation was requested in regard to elevated troponin level, nephrology consultation was requested in regard to end-stage renal disease on hemodialysis, and anemia. Past Medical History Past Medical History: Heart Failure, Diabetes Mellitus, Hypertension, Musculoskeletal Disorder, Sleep Apnea/CPAP/BIPAP, Thyroid Disorder Additional Past Medical History / Comment(s): COPD, CHF with diastolic heart failure, hypertension, chronic kidney disease stage III, coronary artery disease with previous bypass surgery, history of pacemaker insertion 2014, diabetes mellitus, hypertension, obstructive sleep apnea, thyroid nodules, hyperlipidemia, history of smoking in the order of [id number] History of Any Multi-Drug Resistant Organisms: ESBL Date of last positivie culture/infection: 10/18/19 MDRO Source:: ESBL URINE Past Surgical History: Appendectomy, Back Surgery, Bariatric Surgery, Coronary Bypass/CABG, Heart Catheterization, Hysterectomy, Pacemaker Additional Past Surgical History / Comment(s): LAP BAND, CATARACT LEFT EYE, NEUROMA ON FOOT, KNEE ARTHROSCOPY, PACEMAKER ([employer] 04/18/2015) Partial thyroidectomy 1999 Past Anesthesia/Blood Transfusion Reactions: No Reported Reaction Type of Cardiac Device: Permanent Pacemaker Device Placement Date:: 04/18/2015 [employer] Past Psychological History: No Psychological Hx Reported Smoking Status: Former smoker Past Alcohol Use History: None Reported Past Drug Use History: None Reported - Past Family History Son(s) Family Medical History: Cancer Additional Family Medical History / Comment(s): MELANOMA Brother(s) Family Medical History: Cancer Father History Unknown: Yes Family Medical History: Cancer Mother Family Medical History: Coronary Artery Disease (CAD) Medications and Allergies Home Medications Medication Instructions Recorded Confirmed Type Simvastatin [Zocor] 5 mg PO HS 11/29/17 05/26/21 History Aspirin EC [Ecotrin Low Dose] 81 mg PO DAILY 03/09/20 05/26/21 History Mirtazapine 15 mg PO DAILY 11/17/20 05/26/21 History Temazepam 30 mg PO HS PRN 11/24/20 05/26/21 History Allopurinol [Zyloprim] 100 mg PO DAILY 05/01/21 05/26/21 History Ergocalciferol [Vitamin D2 (1250 50,000 unit PO BONDS 05/01/21 05/26/21 History Mcg = 70770 Iu)] Insulin Detemir (Levemir) [Levemir] 25 unit SQ HS 05/01/21 05/26/21 History Insulin Lispro [humaLOG Kwikpen] See Protocol SQ AC-TID PRN 05/01/21 05/26/21 History Sertraline [Zoloft] 50 mg PO DAILY 05/01/21 05/26/21 History carvediloL [Coreg] 6.25 mg PO BID-W/MEALS 05/08/21 05/26/21 History Torsemide [Demadex] 40 mg PO DAILY 30 Days #30 tablet 05/23/21 05/26/21 Rx hydrALAZINE HCL [Apresoline] 25 mg PO TID 05/26/21 05/26/21 History Allergies Allergy/AdvReac Type Severity Reaction Status Date / Time Sulfa (Sulfonamide Allergy Unknown Verified 05/26/21 09:06 Antibiotics) sulfamethoxazole Allergy Unknown Verified 05/26/21 09:06 [From Bactrim] trimethoprim [From Bactrim] Allergy Unknown Verified 05/26/21 09:06 Physical Exam Vitals: Vital Signs Temp Pulse Resp BP Pulse Ox 05/26/21 07:00 98.4 F 60 16 117/56 97 05/26/21 05:53 60 16 112/54 96 05/26/21 03:52 98.3 F 75 18 123/55 92 L Intake and Output 05/25/21 05/26/21 05/26/21 22:59 06:59 14:59 Other: Weight 95.254 kg In general patient is alert and oriented x 3 in no distress HEENT head normocephalic and atraumatic Neck is supple no JVD no goiter no lymphadenopathy no carotid bruit Chest examination is clear to auscultation no crackles no wheezing Cardiac exam reveals regular heart sounds S1 and S2 no gallops no murmurs Abdomen is soft nontender no organomegaly with normal bowel sounds Extremity exam reveals no edema no cyanosis or clubbing Neurological examination reveals no gross focal deficits, patient has generalized weakness Results CBC & Chem 7: 05/26/21 04:22 05/26/21 04:22 Labs: Abnormal Lab Results - Last 24 Hours (Table) 05/26/21 05/26/21 05/26/21 Range/Units 04:22 04:22 04:22 RBC 2.31 L (3.80-5.40) m/uL Hgb 7.1 L (11.4-16.0) gm/dL Hct 22.6 L (34.0-46.0) % RDW 16.6 H (11.5-15.5) % Plt Count 128 L (150-450) k/uL Lymphocytes # (Manual) 0.42 L (1.0-4.8) k/uL Sodium 132 L (137-145) mmol/L Chloride 95 L (98-107) mmol/L BUN 31 H (7-17) mg/dL Creatinine 2.24 H (0.52-1.04) mg/dL Glucose 158 H (74-99) mg/dL Calcium 8.0 L (8.4-10.2) mg/dL Troponin I 1.080 H* (0.000-0.034) ng/mL Total Protein 5.2 L (6.3-8.2) g/dL Albumin 2.9 L (3.5-5.0) g/dL 05/26/21 Range/Units 06:16 RBC (3.80-5.40) m/uL Hgb (11.4-16.0) gm/dL Hct (34.0-46.0) % RDW (11.5-15.5) % Plt Count (150-450) k/uL Lymphocytes # (Manual) (1.0-4.8) k/uL Sodium (137-145) mmol/L Chloride (98-107) mmol/L BUN (7-17) mg/dL Creatinine (0.52-1.04) mg/dL Glucose (74-99) mg/dL Calcium (8.4-10.2) mg/dL Troponin I 1.390 H* (0.000-0.034) ng/mL Total Protein (6.3-8.2) g/dL Albumin (3.5-5.0) g/dL Assessment and Plan Plan: Severe generalized weakness Anemia with hemoglobin of 7.1 Elevated troponin levels, cardiology consultation was requested in the emergency room End-stage renal disease on hemodialysis patient was started on hemodialysis about 2 weeks ago, she received her first outpatient dialysis session yesterday Underlying history of hypertension Underlying history of congestive heart failure Underlying history of diabetes mellitus Underlying history of hypertension Underlying history of hyperlipidemia Underlying history of coronary artery disease Underlying history of cardiac arrhythmia status post AICD and pacemaker placement Underlying history of COPD History of ongoing nicotine dependence At this time patient is admitted to telemetry floor Cardiology consultation was requested in that regard to elevated troponin level Nephrology consultation was requested in regards to hemodialysis and anemia Home medications reviewed and reordered Prognosis is guarded to due to advanced age and multiple medical problems
[2021-05-26] MEDS ORDERED: ERGOCALCIFEROL 1,250 MCG (50,000 IU) CAPSULE PO SCH (17:45)
--- NOTE | 2021-05-26 18:18 | P.CRDCN ---
History of Present Illness History of present illness: HISTORY OF PRESENTING ILLNESS This is a pleasant 81 year old female with a past medical history significant for congestive heart failure, chronic kidney disease, hypertension, hyperlipidemia, diabetes mellitus, coronary artery disease with previous CABG, and pacemaker insertion. Patient follows in the office with Dr. Cooper. We have been asked to see the patient in consultation for congestive heart failure. Patient had a prolonged hospitalization at the beginning of this month with init iation of hemodialysis. She admits she had been on hemodialysis proximal leg 1 year prior however was able to come off of it. Her first crystal evaluator was Dr Ervin and she initially had a two-vessel CABG. She did have a dual-chamber permanent pacemaker placed approximately 5 years ago. She has had varying degrees of ejection fractions from 45% up to 50% and most recent echo showed a drop in EF down the 30th 35%. She mainly describes issues of going home and then having increased fluid retention. She states that despite dialysis she has been having increased lower extremity edema as well as dyspnea on exertion. She also has been feeling fatigued She previously made urine however has not made urine in the last few days.. EKG shows ventricular paced rhythm. Hemoglobin 7.1. She admits she previously was given iron infusions however had diarrhea with these and therefore these were stopped. She denies any hematochezia or melena. Prior to her CABG she was having headache symptoms and more recently over the past few weeks she has also been noting headaches. No chest pain REVIEW OF SYSTEMS At the time of my exam: CONSTITUTIONAL: Denies fever or chills. CARDIOVASCULAR: Denies chest pain, + shortness of breath, no orthopnea, PND or palpitations. RESPIRATORY: Denies cough. GASTROINTESTINAL: Denies abdominal pain, diarrhea, constipation, nausea or vomiting. MUSCULOSKELETAL: Denies myalgias. NEUROLOGIC: Denies numbness, tingling or weakness. ENDOCRINE: Denies fatigue, weight change, polydipsia or polyurina. GENITOURINARY: Denies burning, hematuria or urgency with micturation. HEMATOLOGIC: Denies history of anemia or bleeding. PHYSICAL EXAMINATION Vital signs reviewed. CONSTITUTIONAL: No apparent distress. HEENT: Head is normocephalic. Pupils are equal, round. Sclerae anicteric. Mucous membranes of the mouth are moist. No JVD. No carotid bruit. CHEST EXAMINATION: Lungs are clear to auscultation. No chest wall tenderness is noted on palpation or with deep breathing. HEART EXAMINATION: Regular rate and rhythm. S1, S2 heard. No murmurs, gallops or rub. ABDOMEN: Soft, nontender. Positive bowel sounds. EXTREMITIES: 2+ peripheral pulses, no lower extremity edema and no calf tenderness. NEUROLOGIC EXAMINATION: Patient is awake, alert and oriented x3. ASSESSMENT NSTEMI concerning for type I mechanism with initial angina symptoms around CABG headaches and new drop in EF Cardiomyopathy, may be ischemic however additionally may be influenced by RV pacing SSS s/p dual chamber PPM ESRD HTN HLD CAD s/p 2 vessel CABG Acute on chronic systolic heart failure anemia PLAN Continue with heparin drip. Monitor hemoglobin. Drop in EF and some possible angina symptoms similar to prior to her CABG. Discussed recommendations of heart catheterization and patient is agreeable. If hemoglobin remains stable may consider LHC with possible PCI on friday. Past Medical History Past Medical History: Heart Failure, Diabetes Mellitus, Hypertension, Musculoskeletal Disorder, Sleep Apnea/CPAP/BIPAP, Thyroid Disorder Additional Past Medical History / Comment(s): COPD, CHF with diastolic heart failure, hypertension, chronic kidney disease stage III, coronary artery disease with previous bypass surgery, history of pacemaker insertion 2014, diabetes mellitus, hypertension, obstructive sleep apnea, thyroid nodules, hyperlipidemia, history of smoking in the order of [id number] History of Any Multi-Drug Resistant Organisms: ESBL Date of last positivie culture/infection: 10/18/19 MDRO Source:: ESBL URINE Past Surgical History: Appendectomy, Back Surgery, Bariatric Surgery, Coronary Bypass/CABG, Heart Catheterization, Hysterectomy, Pacemaker Additional Past Surgical History / Comment(s): LAP BAND, CATARACT LEFT EYE, NEUROMA ON FOOT, KNEE ARTHROSCOPY, PACEMAKER ([employer] 04/18/2015) Partial thyroidectomy 1999 Past Anesthesia/Blood Transfusion Reactions: No Reported Reaction Type of Cardiac Device: Permanent Pacemaker Device Placement Date:: 04/18/2015 [employer] Past Psychological History: No Psychological Hx Reported Smoking Status: Former smoker Past Alcohol Use History: None Reported Past Drug Use History: None Reported - Past Family History Son(s) Family Medical History: Cancer Additional Family Medical History / Comment(s): MELANOMA Brother(s) Family Medical History: Cancer Father History Unknown: Yes Family Medical History: Cancer Mother Family Medical History: Coronary Artery Disease (CAD) Medications and Allergies Home Medications Medication Instructions Recorded Confirmed Type Simvastatin [Zocor] 5 mg PO HS 11/29/17 05/26/21 History Aspirin EC [Ecotrin Low Dose] 81 mg PO DAILY 03/09/20 05/26/21 History Mirtazapine 15 mg PO DAILY 11/17/20 05/26/21 History Temazepam 30 mg PO HS PRN 11/24/20 05/26/21 History Allopurinol [Zyloprim] 100 mg PO DAILY 05/01/21 05/26/21 History Ergocalciferol [Vitamin D2 (1250 50,000 unit PO BONDS 05/01/21 05/26/21 History Mcg = [id number] Iu)] Insulin Detemir (Levemir) [Levemir] 25 unit SQ HS 05/01/21 05/26/21 History Insulin Lispro [humaLOG Kwikpen] See Protocol SQ AC-TID PRN 05/01/21 05/26/21 History Sertraline [Zoloft] 50 mg PO DAILY 05/01/21 05/26/21 History carvediloL [Coreg] 6.25 mg PO BID-W/MEALS 05/08/21 05/26/21 History Torsemide [Demadex] 40 mg PO DAILY 30 Days #30 tablet 05/23/21 05/26/21 Rx hydrALAZINE HCL [Apresoline] 25 mg PO TID 05/26/21 05/26/21 History Allergies Allergy/AdvReac Type Severity Reaction Status Date / Time Sulfa (Sulfonamide Allergy Unknown Verified 05/26/21 09:06 Antibiotics) sulfamethoxazole Allergy Unknown Verified 05/26/21 09:06 [From Bactrim] trimethoprim [From Bactrim] Allergy Unknown Verified 05/26/21 09:06 Physical Exam Vitals: Vital Signs Temp Pulse Resp BP Pulse Ox 05/26/21 15:00 62 18 126/57 98 05/26/21 07:00 98.4 F 60 16 117/56 97 05/26/21 05:53 60 16 112/54 96 05/26/21 03:52 98.3 F 75 18 123/55 92 L Intake and Output 05/26/21 05/26/21 05/26/21 06:59 14:59 22:59 Intake Total 103.854 Balance 103.854 Intake: Intake, IV Titration 103.854 Amount Heparin Sod,Pork in 0.45% 103.854 NaCl 25,000 unit In 0.45 % NaCl 1 250ml.bag @ 10.5 UNITS/KG/HR 10.002 mls/ hr IV .Q24H [facility] Rx#: [id number] Other: Weight 95.254 kg Results 05/26/21 04:22 05/26/21 04:22 Cardiac Enzymes 05/26/21 05/26/21 05/26/21 Range/Units 04:22 04:22 06:16 AST 24 (14-36) U/L Troponin I 1.080 H* 1.390 H* (0.000-0.034) ng/mL 05/26/21 Range/Units 12:25 AST (14-36) U/L Troponin I 1.760 H* (0.000-0.034) ng/mL Coagulation 05/26/21 05/26/21 Range/Units 04:22 12:25 PT 12.0 (9.0-12.0) sec APTT 22.7 34.4 H (22.0-30.0) sec CBC 05/26/21 Range/Units 04:22 WBC 6.0 (3.8-10.6) k/uL RBC 2.31 L (3.80-5.40) m/uL Hgb 7.1 L (11.4-16.0) gm/dL Hct 22.6 L (34.0-46.0) % Plt Count 128 L (150-450) k/uL Comprehensive Metabolic Panel 05/26/21 Range/Units 04:22 Sodium 132 L (137-145) mmol/L Potassium 3.7 (3.5-5.1) mmol/L Chloride 95 L (98-107) mmol/L Carbon Dioxide 30 (22-30) mmol/L BUN 31 H (7-17) mg/dL Creatinine 2.24 H (0.52-1.04) mg/dL Glucose 158 H (74-99) mg/dL Calcium 8.0 L (8.4-10.2) mg/dL AST 24 (14-36) U/L ALT 21 (4-34) U/L Alkaline Phosphatase 74 (38-126) U/L Total Protein 5.2 L (6.3-8.2) g/dL Albumin 2.9 L (3.5-5.0) g/dL Current Medications Generic Name Dose Route Start Last Admin Trade Name Freq PRN Reason Stop Dose Admin Allopurinol 100 mg 05/27/21 09:00 Allopurinol 100 Mg Tab PO DAILY [facility] Aspirin 325 mg 05/27/21 09:00 Aspirin 325 Mg Tab PO DAILY [facility] Aspirin 81 mg 05/27/21 09:00 Aspirin 325 Mg Tab PO DAILY [facility] Atorvastatin Calcium 5 mg 05/26/21 21:00 Atorvastatin 10 Mg Tab PO HS [facility] Carvedilol 6.25 mg 05/26/21 21:00 Carvedilol 6.25 Mg Tab PO BID-W/MEALS [facility] Ergocalciferol 1,250 mcg 05/26/21 17:45 Ergocalciferol 1,250 Mcg (50,000 Iu) Capsule PO Q7D [facility] Hydralazine HCl 25 mg 05/26/21 22:00 Hydralazine Hcl 25 Mg Tab PO TID [facility] Sodium Chloride 1,000 mls @ 20 mls/hr 05/26/21 05:15 05/26/21 05:42 Saline 0.9% IV 20 mls/hr .Q24H [facility] Administration Heparin Sodium/Sodium Chloride 250 mls @ 10.002 mls/hr 05/26/21 05:15 05/26/21 16:09 25,000 unit/ Sodium Chloride IV 13.5 units/kg/hr .Q24H [facility] 12.859 mls/hr Titration Protocol 10.5 UNITS/KG/HR Mirtazapine 15 mg 05/26/21 21:00 Mirtazapine 15 Mg Tab PO DAILY [facility] Morphine Sulfate 4 mg 05/26/21 05:09 Morphine Sulfate 4 Mg/Ml Syringe IV Q4HR PRN Severe Pain Naloxone HCl 0.2 mg 05/26/21 05:09 Naloxone 0.4 Mg/Ml 1 Ml Vial IV Q2M PRN Opioid Reversal Nitroglycerin 0.4 mg 05/26/21 05:09 Nitroglycerin Sl Tabs 0.4 Mg Tab SUBLINGUAL Q5M PRN Chest Pain Sertraline HCl 50 mg 05/27/21 09:00 Sertraline 50 Mg Tab PO DAILY [facility] Temazepam 30 mg 05/26/21 21:00 Temazepam 30 Mg Cap PO HS PRN Agitation or Acute Anxiety Torsemide 40 mg 05/27/21 09:00 Torsemide 20 Mg Tab PO DAILY [facility] Intake and Output 05/26/21 05/26/21 05/26/21 06:59 14:59 22:59 Intake Total 103.854 Balance 103.854 Intake: Intake, IV Titration 103.854 Amount Heparin Sod,Pork in 0.45% 103.854 NaCl 25,000 unit In 0.45 % NaCl 1 250ml.bag @ 10.5 UNITS/KG/HR 10.002 mls/ hr IV .Q24H [facility] Rx#: [id number] Other: Weight 95.254 kg 05/26/21 04:22 05/26/21 04:22
[2021-05-26] MEDS ORDERED: TEMAZEPAM 30 MG CAP PO PRN (21:00)
[2021-05-26] MEDS: carvediloL 6.25 MG TAB PO SCH (21:50)
[2021-05-26] MEDS: hydrALAZINE HCL 25 MG TAB PO SCH (21:51)
[2021-05-26] MEDS: MIRTAZAPINE 15 MG TAB PO SCH (21:51)
[2021-05-26] MEDS: ATORVASTATIN 10 MG TAB PO SCH (21:52)
[2021-05-27] MEDS: TEMAZEPAM 15 MG CAP PO PRN ×2 (00:58→23:45)
[2021-05-27] MEDS: HEPARIN SOD,PORK IN 0.45% NACL 25,000 UNIT in 0.45% NACL 1 250ML.BAG IV SCH (04:27)
[2021-05-27 04:58] LABS: Anisocytosis Slight; HCT 23.5 % (34.0-46.0); HGB 7.3 gm/dL (11.4-16.0); Hypochromasia Slight; MCH 30.4 pg (25.0-35.0); MCHC 30.9 g/dL (31.0-37.0); MCV 98.3 fL (80.0-100.0); Macrocytosis Slight; Mean Platelet Volume 10.3; Platelet Count 135 k/uL (150-450); RBC 2.39 m/uL (3.80-5.40); RDW 16.8 % (11.5-15.5); WBC 6.3 k/uL (3.8-10.6)
[2021-05-27 05:12] LABS: Albumin 2.8 g/dL (3.5-5.0); Calcium 7.8 mg/dL (8.4-10.2); Magnesium 2.1 mg/dL (1.6-2.3); Phosphorus 6.1 mg/dL (2.5-4.5); Potassium 4.2 mmol/L (3.5-5.1); Total Bilirubin 0.5 mg/dL (0.2-1.3); Total Protein 5.3 g/dL (6.3-8.2)
[2021-05-27 06:51] LABS: Band Neutrophils % 2 %; Eosinophils # (M) 0.38 k/uL (0-0.7); Lymphocytes # (M) 0.82 k/uL (1.0-4.8); Monocytes # (M) 0.06 k/uL (0-1.0); Neutrophils % (M) 78 %; Nucleated Red Blood Cells 0 /100 WBC (0-0); Total Cells Counted 100
[2021-05-27 06:52] LABS: Polychromasia Present
[2021-05-27] MEDS: ASPIRIN 325 MG TAB PO SCH (08:26)
[2021-05-27] MEDS: MIRTAZAPINE 15 MG TAB PO SCH (08:46)
[2021-05-27] MEDS: TORSEMIDE 20 MG TAB PO SCH (08:46)
[2021-05-27] MEDS: carvediloL 6.25 MG TAB PO SCH ×2 (08:46→17:30)
[2021-05-27] MEDS: hydrALAZINE HCL 25 MG TAB PO SCH ×3 (08:46→20:13)
[2021-05-27] MEDS: ASPIRIN 81 MG PO SCH (08:46)
[2021-05-27] MEDS: allopurinoL 100 MG TAB PO SCH (08:46)
[2021-05-27] MEDS: SERTRALINE 50 MG TAB PO SCH (08:47)
[2021-05-27] MEDS: SODIUM CHLORIDE 0.9% 1,000 ML IV SCH (08:49)
--- NOTE | 2021-05-27 10:59 | P.PN ---
Subjective Progress Note Date: 05/27/21 Elza Avery, is an 81-year-old female who presented to [facility] emergency room due to severe weakness and fatigue. Patient was recently admitted to the hospital, she was discharged home 5 days ago, during her last admission she was started on hemodialysis, she had 1 session of hemodialysis as outpatient yesterday, however patient was extremely weak she was having difficulty standing up and walking and her decided to bring her back to emergency room. She was evaluated in emergency room vital examination revealed a temperature of 98.3 pulse 75 respiration 18 blood pressure 123/55 pulse ox 92% on room air Laboratory data reveals a white blood count of 6.0 hemoglobin 7.1 platelet count 128 sodium 132 potassium 3.7 chloride 95 CO2 30 BUN 31 creatinine 2.24 glucose 158 troponin 1.08 Chest x-ray revealed evidence of mild heart failure with small bilateral pleural effusions and pulmonary congestion, EKG revealed ventricular paced rhythm Patient was admitted to telemetry floor cardiology consultation was requested in regard to elevated troponin level, nephrology consultation was requested in regard to end-stage renal disease on hemodialysis, and anemia. On 05/27/2021 patient is alert and oriented 3. Patient remains on IV heparin. Per cardiology possible plans for cardiac catheterization tomorrow. Nephrology services also consulted. Patient remains weak and fatigued. Patient denies any chest pain. Patient denies nausea vomiting or diarrhea. Patient denies any urinary burning or frequency. Objective - Vital Signs Vital signs: Vital Signs Temp 98.4 F 05/26/21 07:00 Pulse 64 05/27/21 08:45 Resp 18 05/27/21 08:45 BP 126/54 05/27/21 08:45 Pulse Ox 99 05/27/21 08:45 Intake & Output 05/26/21 05/27/21 05/27/21 18:59 06:59 18:59 Intake Total 103.854 146.146 Balance 103.854 146.146 Intake: Intake, IV Titration 103.854 146.146 Amount Heparin Sod,Pork in 0.45% 103.854 146.146 NaCl 25,000 unit In 0.45 % NaCl 1 250ml.bag @ 10.5 UNITS/KG/HR 10.002 mls/ hr IV .Q24H [facility] Rx#: [id number] - Exam In general patient is alert and oriented x 3 in no distress HEENT head normocephalic and atraumatic Neck is supple no JVD no goiter no lymphadenopathy no carotid bruit Chest examination is clear to auscultation no crackles no wheezing Cardiac exam reveals regular heart sounds S1 and S2 no gallops no murmurs Abdomen is soft nontender no organomegaly with normal bowel sounds Extremity exam reveals no edema no cyanosis or clubbing Neurological examination reveals no gross focal deficits, patient has generalized weakness - Labs CBC & Chem 7: 05/27/21 04:16 05/27/21 04:16 Labs: Abnormal Lab Results - Last 24 Hours (Table) 05/26/21 05/26/21 05/27/21 Range/Units 12:25 12:25 04:16 RBC 2.39 L (3.80-5.40) m/uL Hgb 7.3 L (11.4-16.0) gm/dL Hct 23.5 L (34.0-46.0) % MCHC 30.9 L (31.0-37.0) g/dL RDW 16.8 H (11.5-15.5) % Plt Count 135 L (150-450) k/uL Lymphocytes # (Manual) 0.82 L (1.0-4.8) k/uL APTT 34.4 H (22.0-30.0) sec Sodium (137-145) mmol/L Chloride (98-107) mmol/L BUN (7-17) mg/dL Creatinine (0.52-1.04) mg/dL Glucose (74-99) mg/dL Calcium (8.4-10.2) mg/dL Phosphorus (2.5-4.5) mg/dL AST (14-36) U/L Troponin I 1.760 H* (0.000-0.034) ng/mL Total Protein (6.3-8.2) g/dL Albumin (3.5-5.0) g/dL 05/27/21 05/27/21 Range/Units 04:16 04:16 RBC (3.80-5.40) m/uL Hgb (11.4-16.0) gm/dL Hct (34.0-46.0) % MCHC (31.0-37.0) g/dL RDW (11.5-15.5) % Plt Count (150-450) k/uL Lymphocytes # (Manual) (1.0-4.8) k/uL APTT 51.7 H (22.0-30.0) sec Sodium 131 L (137-145) mmol/L Chloride 96 L (98-107) mmol/L BUN 50 H (7-17) mg/dL Creatinine 3.27 H (0.52-1.04) mg/dL Glucose 209 H (74-99) mg/dL Calcium 7.8 L (8.4-10.2) mg/dL Phosphorus 6.1 H (2.5-4.5) mg/dL AST 41 H (14-36) U/L Troponin I (0.000-0.034) ng/mL Total Protein 5.3 L (6.3-8.2) g/dL Albumin 2.8 L (3.5-5.0) g/dL Assessment and Plan Plan: Severe generalized weakness Anemia with hemoglobin of 7.1 Elevated troponin levels, cardiology consultation was requested in the emergency room area per cardiology possible plans for cardiac catheterization tomorrow 05/28/2021 End-stage renal disease on hemodialysis patient was started on hemodialysis about 2 weeks ago, she received her first outpatient dialysis session yesterday Underlying history of hypertension Underlying history of congestive heart failure Underlying history of diabetes mellitus Underlying history of hypertension Underlying history of hyperlipidemia Underlying history of coronary artery disease Underlying history of cardiac arrhythmia status post AICD and pacemaker placement Underlying history of COPD History of ongoing nicotine dependence At this time patient is admitted to telemetry floor Cardiology consultation was requested in that regard to elevated troponin level Nephrology consultation was requested in regards to hemodialysis and anemia Home medications reviewed and reordered Prognosis is guarded to due to advanced age and multiple medical problems
[2021-05-27 13:25] LABS: Chol/HDL Ratio 2.24; LDL Cholesterol,Calculated 35.4 mg/dL (0.0-131.0); VLDL Calculation 10.6 mg/dL (5.00-40.00)
[2021-05-27 15:40] LABS: Glucose,Whole Blood 287 mg/dL (75-99)
[2021-05-27 16:49] LABS: Glucose,Whole Blood 336 mg/dL (75-99)
--- NOTE | 2021-05-27 19:18 | P.PN ---
Subjective HISTORY OF PRESENTING ILLNESS This is a pleasant 81 year old female with a past medical history significant for congestive heart failure, chronic kidney disease, hypertension, hyperlipidemia, diabetes mellitus, coronary artery disease with previous CABG, and pacemaker insertion. Patient follows in the office with Dr. Cooper. We have been asked to see the patient in consultation for congestive heart failure. Patient had a prolonged hospitalization at the beginning of this month with initiation of hemodialysis. She admits she had been on hemodialysis proximal leg 1 year prior however was able to come off of it. Her first divider operator was Dr Ervin and she initially had a two-vessel CABG. She did have a dual-chamber permanent pacemaker placed approximately 5 years ago. She has had varying degrees of ejection fractions from 45% up to 50% and most recent echo showed a drop in EF down the 30th 35%. She mainly describes issues of going home and then having increased fluid retention. She states that despite dialysis she has been having increased lower extremity edema as well as dyspnea on exertion. She also has been feeling fatigued She previously made urine however has not made urine in the last few days.. EKG shows ventricular paced rhythm. Hemoglobin 7.1. She admits she previously was given iron infusions however had diarrhea with these and therefore these were stopped. She denies any hematochezia or melena. Prior to her CABG she was having headache symptoms and more recently over the past few weeks she has also been noting headaches. No chest pain 05/27 Patient seen and examined. Patient denies any chest pain or pressure. Eyes and shortness breath. Still has some lower extremity edema however is not keeping her legs elevated. Blood work shows relatively stable hemoglobin 7.3. Denies any hematochezia or melena. She has been on a heparin drip without any bleeding. REVIEW OF SYSTEMS At the time of my exam: CONSTITUTIONAL: Denies fever or chills. CARDIOVASCULAR: Denies chest pain, + shortness of breath, no orthopnea, PND or palpitations. RESPIRATORY: Denies cough. GASTROINTESTINAL: Denies abdominal pain, diarrhea, constipation, nausea or vomiting. MUSCULOSKELETAL: Denies myalgias. NEUROLOGIC: Denies numbness, tingling or weakness. ENDOCRINE: Denies fatigue, weight change, polydipsia or polyurina. GENITOURINARY: Denies burning, hematuria or urgency with micturation. HEMATOLOGIC: Denies history of anemia or bleeding. PHYSICAL EXAMINATION Vital signs reviewed. CONSTITUTIONAL: No apparent distress. HEENT: Head is normocephalic. Pupils are equal, round. Sclerae anicteric. Mucous membranes of the mouth are moist. No JVD. No carotid bruit. CHEST EXAMINATION: Lungs are clear to auscultation. No chest wall tenderness is noted on palpation or with deep breathing. HEART EXAMINATION: Regular rate and rhythm. S1, S2 heard. No murmurs, gallops or rub. ABDOMEN: Soft, nontender. Positive bowel sounds. EXTREMITIES: 2+ peripheral pulses, no lower extremity edema and no calf tenderness. NEUROLOGIC EXAMINATION: Patient is awake, alert and oriented x3. ASSESSMENT NSTEMI concerning for type I mechanism with initial angina symptoms around CABG headaches and new drop in EF Cardiomyopathy, may be ischemic however additionally may be influenced by RV pacing SSS s/p dual chamber PPM ESRD HTN HLD CAD s/p 2 vessel CABG Acute on chronic systolic heart failure anemia PLAN Patient with symptoms similar to those before her bypass and drop in EF with non-STEMI and therefore discussed heart catheterization. Monitor hemoglobin on heparin drip and as long as remains stable likely heart catheterization 05/28/[address] Cooper. Further recommendations to follow. Objective - Vital Signs Vital signs: Vital Signs Temp 97.5 F L 05/27/21 16:33 Pulse 60 05/27/21 16:33 Resp 18 05/27/21 16:33 BP 144/62 05/27/21 16:33 Pulse Ox 92 L 05/27/21 16:33 Intake & Output 05/27/21 05/27/21 05/28/21 06:59 18:59 06:59 Intake Total 146.146 120 Balance 146.146 120 Weight 96.5 kg Intake: Intake, IV Titration 146.146 Amount Heparin Sod,Pork in 0.45% 146.146 NaCl 25,000 unit In 0.45 % NaCl 1 250ml.bag @ 10.5 UNITS/KG/HR 10.002 mls/ hr IV .Q24H [facility] Rx#: [id number] Oral 120 - Labs CBC & Chem 7: 05/27/21 04:16 05/27/21 04:16 Labs: Abnormal Lab Results - Last 24 Hours (Table) 05/27/21 05/27/21 05/27/21 Range/Units 04:16 04:16 04:16 RBC 2.39 L (3.80-5.40) m/uL Hgb 7.3 L (11.4-16.0) gm/dL Hct 23.5 L (34.0-46.0) % MCHC 30.9 L (31.0-37.0) g/dL RDW 16.8 H (11.5-15.5) % Plt Count 135 L (150-450) k/uL Lymphocytes # (Manual) 0.82 L (1.0-4.8) k/uL APTT 51.7 H (22.0-30.0) sec Sodium 131 L (137-145) mmol/L Chloride 96 L (98-107) mmol/L BUN 50 H (7-17) mg/dL Creatinine 3.27 H (0.52-1.04) mg/dL Glucose 209 H (74-99) mg/dL POC Glucose (mg/dL) (75-99) mg/dL Calcium 7.8 L (8.4-10.2) mg/dL Phosphorus 6.1 H (2.5-4.5) mg/dL AST 41 H (14-36) U/L Total Protein 5.3 L (6.3-8.2) g/dL Albumin 2.8 L (3.5-5.0) g/dL HDL Cholesterol 37.0 L (40.0-60.0) mg/dL 05/27/21 05/27/21 Range/Units 15:38 16:48 RBC (3.80-5.40) m/uL Hgb (11.4-16.0) gm/dL Hct (34.0-46.0) % MCHC (31.0-37.0) g/dL RDW (11.5-15.5) % Plt Count (150-450) k/uL Lymphocytes # (Manual) (1.0-4.8) k/uL APTT (22.0-30.0) sec Sodium (137-145) mmol/L Chloride (98-107) mmol/L BUN (7-17) mg/dL Creatinine (0.52-1.04) mg/dL Glucose (74-99) mg/dL POC Glucose (mg/dL) 287 H 336 H (75-99) mg/dL Calcium (8.4-10.2) mg/dL Phosphorus (2.5-4.5) mg/dL AST (14-36) U/L Total Protein (6.3-8.2) g/dL Albumin (3.5-5.0) g/dL HDL Cholesterol (40.0-60.0) mg/dL
[2021-05-27] MEDS: ATORVASTATIN 10 MG TAB PO SCH (20:13)
[2021-05-27 20:32] LABS: Glucose,Whole Blood 212 mg/dL (75-99)
[2021-05-27] MEDS: INSULIN ASPART (NovoLOG) 100 UNIT/ML VIAL SQ SCH (21:28)
[2021-05-27] MEDS: INSULIN DETEMIR (LEVEMIR) 100 UNIT/ML SYR SQ SCH (21:28)
[2021-05-28] MEDS: HEPARIN SOD,PORK IN 0.45% NACL 25,000 UNIT in 0.45% NACL 1 250ML.BAG IV SCH (01:42)
[2021-05-28 04:48] LABS: Glucose,Whole Blood 185 mg/dL (75-99)
[2021-05-28] MEDS: INSULIN ASPART (NovoLOG) 100 UNIT/ML VIAL SQ SCH ×5 (05:44→21:13)
[2021-05-28] MEDS: carvediloL 6.25 MG TAB PO SCH ×2 (06:51→17:26)
[2021-05-28] MEDS: SODIUM CHLORIDE 0.9% 1,000 ML IV SCH (06:52)
[2021-05-28] MEDS: allopurinoL 100 MG TAB PO SCH (08:13)
[2021-05-28] MEDS: ASPIRIN 325 MG TAB PO SCH (08:13)
[2021-05-28] MEDS: MIRTAZAPINE 15 MG TAB PO SCH (08:14)
[2021-05-28] MEDS: SERTRALINE 50 MG TAB PO SCH (08:14)
[2021-05-28] MEDS: hydrALAZINE HCL 25 MG TAB PO SCH ×3 (08:14→21:13)
[2021-05-28] MEDS: ASPIRIN 81 MG PO SCH (08:16)
[2021-05-28 08:22] LABS: Anisocytosis Slight; HCT 22.6 % (34.0-46.0); Hypochromasia Slight; MCH 30.5 pg (25.0-35.0); MCHC 31.2 g/dL (31.0-37.0); MCV 97.9 fL (80.0-100.0); Macrocytosis Slight; Mean Platelet Volume 9.5; Platelet Count 140 k/uL (150-450); RBC 2.31 m/uL (3.80-5.40); RDW 16.8 % (11.5-15.5); WBC 5.7 k/uL (3.8-10.6)
[2021-05-28 09:13] LABS: Albumin 2.8 g/dL (3.5-5.0); Calcium 7.8 mg/dL (8.4-10.2); Potassium 4.4 mmol/L (3.5-5.1); Total Bilirubin 0.3 mg/dL (0.2-1.3); Total Protein 5.2 g/dL (6.3-8.2)
[2021-05-28] MEDS ORDERED: ATORVASTATIN 80 MG TAB PO STA (09:56)
[2021-05-28] MEDS ORDERED: ALPRAZolam 0.25 MG TAB PO PRN (09:56)
[2021-05-28] MEDS ORDERED: SODIUM CHLORIDE 0.9% 1,000 ML in EMPTY BAG 1 BAG IV ONE (09:56)
[2021-05-28 10:25] LABS: Eosinophils # (M) 0.23 k/uL (0-0.7); Metamyelocytes # (M) 0.06 k/uL (0); Metamyelocytes % 1 %; Monocytes # (M) 0.57 k/uL (0-1.0); Neutrophils # (M) 4.45 k/uL (1.3-7.7); Neutrophils % (M) 78 %; Nucleated Red Blood Cells 0 /100 WBC (0-0); Total Cells Counted 100
[2021-05-28 10:26] LABS: Poikilocytosis (M) Present; Polychromasia Present
[2021-05-28 10:27] LABS: RBC Fragments Present; Spherocytes Present
[2021-05-28 11:52] LABS: Glucose,Whole Blood 113 mg/dL (75-99)
[2021-05-28] MEDS ORDERED: HEPARIN SODIUM 1,000 UN/ML (10ML VL) ONE (12:41)
[2021-05-28] MEDS ORDERED: fentaNYL (PF) 50 MCG/ML 2 ML AMP ONE (12:41)
[2021-05-28] MEDS ORDERED: MIDAZOLAM 2 MG/2 ML VIAL IV ONE (12:48)
[2021-05-28] MEDS ORDERED: IV FLUID CONTINUATION 800 ML IV ONE (12:48)
[2021-05-28] MEDS ORDERED: LIDOCAINE 1% INJ 10MG/ML (20 ML MDV) SQ ONE ×2 (12:48→12:49)
[2021-05-28] MEDS ORDERED: fentaNYL (PF) 50 MCG/ML 2 ML AMP IV ONE (12:48)
[2021-05-28] MEDS ORDERED: VERAPAMIL SYRINGE (5 MG/10 ML) INTRAARTER ONE (12:52)
[2021-05-28] MEDS ORDERED: DARBEPOETIN ALFA 60 MCG/0.3 ML SYRINGE SQ SCH (13:00)
[2021-05-28] MEDS ORDERED: IOPAMIDOL-370 125ML BTL INJ ONE (13:23)
[2021-05-28] MEDS ORDERED: IOPAMIDOL-370 50ML BTL INJ ONE (13:25)
[2021-05-28] MEDS ORDERED: IOPAMIDOL-370 100ML BTL INJ ONE (13:32)
[2021-05-28] MEDS ORDERED: RX INFO: IV CONTRAST WAS GIVEN 1 EACH MISC MISCELLANE PRN (13:48)
--- NOTE | 2021-05-28 13:48 | P.CARDCATH ---
Description of Procedure: PROCEDURES PERFORMED: Left heart catheterization, bilateral coronary angiography, aortic root angiography, SVG to RCA, SVG to OM angiography INDICATION: Non-STEMI HISTORY: Patient is an 81-year-old female with history of coronary artery disease status post 2 vessel CABG remotely, hypertension, hyperlipidemia, chronic kidney disease recently placed on hemodialysis and cardiomyopathy. Patient presented with increase in fatigue, dyspnea and lower extremity edema and was found to have drop in her ejection fraction down to 30-35%. She additionally had mildly elevated troponins. She has been having increased dyspnea despite diuresis with hemodialysis. Therefore heart catheterization was recommended. CONSENT:I have discussed the risks, benefits and alternative therapies for the above-mentioned procedure and for both sedation/analgesia as well as necessary blood product administration, if indicated, as they pertain to this patient. The patient has indicated understanding and acceptance of the risks and procedures discussed. PROCEDURE: After the risks, benefits and alternatives of the above mentioned procedure explained in detail with the patient, informed consent was obtained. Patient was taken to the catheterization lab and prepped and draped in usual fashion. 1% lidocaine was used to anesthetize the right left artery. A 6- Honduran sheath was placed in the left radial artery using modified Seldinger technique. Left coronary angiography was performed with a 5-Honduran JL 3.5 catheter and right coronary angiography was performed with a 5-Honduran JR4 catheter in various views. A 5-Honduran FR5 catheter was inserted into the left ventricle and pressure measurements were obtained. ZEPEDA angiography was performed as CABG surgery details were unavailable other than 2 vessel bypass however ZEPEDA angiography showed no ZEPEDA to LAD. SVG to RCA angiography was performed with a multipurpose catheter. A aortic root angiography was performed which did show a second SVG graft. The SVG graft was engaged with a 6-Honduran LCB catheter. The left radial sheath was removed and a TR band was placed with hemostasis ach ieved. The patient tolerated the procedure well. Patient was transported back to the post catheterization holding area in stable condition. Conscious Sedation: Patient was monitored under the direct supervision of vision of myself for conscious sedation using Versed and fentanyl for a total duration of 46 minutes HEMODYNAMICS: Ao: 96/31 LV: 95/3, LVEDP 12 SELECTIVE CORONARY ARTERIOGRAPHY: LEFT MAIN: The left main is a large caliber vessel which bifurcates into the LAD and circumflex. There is no significant stenosis. LEFT ANTERIOR DESCENDING CORONARY ARTERY: LAD is a large caliber vessel which wraps around to the apex. The LAD is diffusely diseased with proximal 50-60% stenosis and diffuse 30-40% stenosis with more focal mid LAD 80% stenosis. LEFT CIRCUMFLEX CORONARY ARTERY: Left circumflex is a moderate caliber vessel with 100% stenosis. RIGHT CORONARY ARTERY: The right coronary artery is a small caliber vessel which gives off a PDA and PLV branch and is the dominant vessel. There is 100% stenosis. SVG to RCA: 100% occluded proximally SVG to OM: patent with small sized OM and left to right collaterals FINAL IMPRESSION: 1. Severe CAD as described above with 100% circumflex, diffuse heavily calcified LAD with up to 80% mid LAD stenosis, 100% RCA, 100% SVG to RCA disease and only patent graft SVG to OM PLAN: 1. Aggressive risk factor modification per most recent ACC/AHA guidelines. 2. Would recommend continuing to medically treat however if symptoms appear consistent with angina despite optimization of anemia and fluid balance may consider PCI of LAD however diffusely diseased and would require almost entire LAD stenting
[2021-05-28 16:33] LABS: Glucose,Whole Blood 106 mg/dL (75-99)
[2021-05-28] MEDS: ACETAMINOPHEN TAB 500 MG TAB PO PRN (16:38)
--- NOTE | 2021-05-28 17:07 | CONS ---
CONSULTATION REASON FOR CONSULT: Renal failure. HISTORY OF PRESENT ILLNESS: The patient is an 81-year-old female with history of chronic kidney disease, NKF stage 4-5, recently started back on hemodialysis for volume overload and worsening renal function. The patient has a previous history of acute kidney injury requiring dialysis about a year ago, however, she was able to come off dialysis at that time. The patient is currently being dialyzed as outpatient at the [facility] on a Friday, Friday, Friday schedule. She has a right IJ PermCath. Patient was readmitted to the hospital with complaints of increased weakness, some mental status changes. She denied any significant chest pains or shortness of breath. The patient has been evaluated by Cardiology and she is going for cardiac catheterization today. She did rule in for non ST elevation myocardial infarction. Patient has underlying cardiomyopathy with fluctuating ejection fraction from 30-35% and previously at 50-55%. No history of fever, cough, nausea, vomiting, abdominal pain or diarrhea. PAST MEDICAL HISTORY: Type 2 diabetes, hypertension, coronary artery disease, diastolic CHF, currently systolic CHF with cardiomyopathy, CKD mineral bone disorder, history of coronary artery bypass surgery, pacemaker placement, previous history of dialysis dependent acute kidney injury. PAST SURGICAL HISTORY: Appendectomy, bariatric surgery, coronary artery bypass surgery, back surgery, pacemaker placement, hysterectomy, cardiac catheterization, lap band procedure, cataract surgery, partial thyroidectomy, PermCath placement, removal and replacement again last admission. SOCIAL HISTORY: Negative for smoking, drug abuse or alcohol abuse. Patient is a former smoker. MEDICATIONS PRIOR TO ADMISSION: Included Zocor, aspirin, temazepam, Zyloprim, vitamin D, Zoloft, Coreg, Demadex, hydralazine. ALLERGIES: Include SULFA, BACTRIM. REVIEW OF SYSTEMS: As per HPI. Other systems negative. EXAMINATION: Patient is comfortable, awake, not in any acute distress. Alert, oriented x3. Blood pressure was 130/75, heart rate 58 per minute, she is afebrile. Examination of the heart S1, S2. Examination of the lungs, bilateral breath sounds are heard. Abdomen is soft, nontender. Examination of lower extremities shows edema 2+ bilaterally. BOOSTER STATION OPERATOR exam is grossly intact. LAB: Show troponin 1.7 which increased from 1.0 on initial admission. Sodium 131, potassium 4.4, chloride 97, BUN 67 serum creatinine 4.09, hemoglobin of 7.0 g/dL. ASSESSMENT: 1. Acute kidney injury, currently dialysis dependent renal failure. Restarted dialysis last admission for volume overload and worsening renal failure. I will continue with the hemodialysis on a Friday, Friday, Friday schedule for now. The patient has a right IJ PermCath. 2. Acute non ST elevation myocardial infarction, going for cardiac catheterization. 3. Chronic kidney disease mineral bone disorder. 4. Anemia of chronic disease. Hemoglobin is 7. No active bleeding noted. Will maintain patient on Aranesp. 5. Volume overload. 6. Cardiomyopathy with ejection fraction most recently 30-35%, previously 50-55%. PLAN: Hemodialysis today post cardiac catheterization, DC IV fluids, add Aranesp. Repeat labs in a.m. MMDANIELE / SPENCERN: [id number] /
[2021-05-28] MEDS: TORSEMIDE 20 MG TAB PO SCH (17:25)
[2021-05-28 17:45] LABS: Hemoglobin A1C 6.7 % (4.0-6.0)
--- NOTE | 2021-05-28 19:46 | P.PN ---
Subjective Progress Note Date: 05/28/21 Elza Avery, is an 81-year-old female who presented to [facility] emergency room due to severe weakness and fatigue. Patient was recently admitted to the hospital, she was discharged home 5 days ago, during her last admission she was started on hemodialysis, she had 1 session of hemodialysis as outpatient yesterday, however patient was extremely weak she was having difficulty standing up and walking and her decided to bring her back to emergency room. She was evaluated in emergency room vital examination revealed a temperature of 98.3 pulse 75 respiration 18 blood pressure 123/55 pulse ox 92% on room air Laboratory data reveals a white blood count of 6.0 hemoglobin 7.1 platelet count 128 sodium 132 potassium 3.7 chloride 95 CO2 30 BUN 31 creatinine 2.24 glucose 158 troponin 1.08 Chest x-ray revealed evidence of mild heart failure with small bilateral pleural effusions and pulmonary congestion, EKG revealed ventricular paced rhythm Patient was admitted to telemetry floor cardiology consultation was requested in regard to elevated troponin level, nephrology consultation was requested in regard to end-stage renal disease on hemodialysis, and anemia. On 05/27/2021 patient is alert and oriented 3. Patient remains on IV heparin. Per cardiology possible plans for cardiac catheterization tomorrow. Nephrology services also consulted. Patient remains weak and fatigued. Patient denies any chest pain. Patient denies nausea vomiting or diarrhea. Patient denies any urinary burning or frequency. On 05/28/2021 patient was seen and examined on the telemetry floor she is alert and oriented 3 in no apparent distress she is complaining of generalized weakness otherwise she denies any complaints there is no chest pain no shortness of breath no cough no nausea or vomiting no abdominal pain no diarrhea no blood in the stools and no urinary symptoms. Patient was evaluated by cardiology and is scheduled for cardiac catheterization today Objective - Vital Signs Vital signs: Vital Signs Temp 98.4 F 05/28/21 08:00 Pulse 60 05/28/21 08:00 Resp 18 05/28/21 08:00 BP 113/63 05/28/21 08:00 Pulse Ox 99 05/28/21 08:00 Intake & Output 05/27/21 05/28/21 05/28/21 18:59 06:59 18:59 Intake Total 120 250 Balance 120 250 Weight 96.5 kg 97.2 kg Intake: Intake, IV Titration 250 Amount Heparin Sod,Pork in 0.45% 250 NaCl 25,000 unit In 0.45 % NaCl 1 250ml.bag @ 10.5 UNITS/KG/HR 10.002 mls/ hr IV .Q24H [facility] Rx#: [id number] Oral 120 Other: Voiding Method Toilet Toilet # Voids 1 - Exam In general patient is alert and oriented x 3 in no distress HEENT head normocephalic and atraumatic Neck is supple no JVD no goiter no lymphadenopathy no carotid bruit Chest examination is clear to auscultation no crackles no wheezing Cardiac exam reveals regular heart sounds S1 and S2 no gallops no murmurs Abdomen is soft nontender no organomegaly with normal bowel sounds Extremity exam reveals no edema no cyanosis or clubbing Neurological examination reveals no gross focal deficits, patient has generalized weakness - Labs CBC & Chem 7: 05/28/21 07:54 05/28/21 07:54 Labs: Abnormal Lab Results - Last 24 Hours (Table) 05/27/21 05/27/21 05/27/21 Range/Units 04:16 15:38 16:48 RBC (3.80-5.40) m/uL Hgb (11.4-16.0) gm/dL Hct (34.0-46.0) % RDW (11.5-15.5) % Plt Count (150-450) k/uL APTT (22.0-30.0) sec Sodium (137-145) mmol/L Chloride (98-107) mmol/L BUN (7-17) mg/dL Creatinine (0.52-1.04) mg/dL Glucose (74-99) mg/dL POC Glucose (mg/dL) 287 H 336 H (75-99) mg/dL Calcium (8.4-10.2) mg/dL Total Protein (6.3-8.2) g/dL Albumin (3.5-5.0) g/dL HDL Cholesterol 37.0 L (40.0-60.0) mg/dL 05/27/21 05/28/21 05/28/21 Range/Units 20:31 04:41 07:54 RBC 2.31 L (3.80-5.40) m/uL Hgb 7.0 L (11.4-16.0) gm/dL Hct 22.6 L (34.0-46.0) % RDW 16.8 H (11.5-15.5) % Plt Count 140 L (150-450) k/uL APTT (22.0-30.0) sec Sodium (137-145) mmol/L Chloride (98-107) mmol/L BUN (7-17) mg/dL Creatinine (0.52-1.04) mg/dL Glucose (74-99) mg/dL POC Glucose (mg/dL) 212 H 185 H (75-99) mg/dL Calcium (8.4-10.2) mg/dL Total Protein (6.3-8.2) g/dL Albumin (3.5-5.0) g/dL HDL Cholesterol (40.0-60.0) mg/dL 05/28/21 05/28/21 Range/Units 07:54 07:54 RBC (3.80-5.40) m/uL Hgb (11.4-16.0) gm/dL Hct (34.0-46.0) % RDW (11.5-15.5) % Plt Count (150-450) k/uL APTT 45.9 H (22.0-30.0) sec Sodium 131 L (137-145) mmol/L Chloride 97 L (98-107) mmol/L BUN 67 H (7-17) mg/dL Creatinine 4.09 H (0.52-1.04) mg/dL Glucose 144 H (74-99) mg/dL POC Glucose (mg/dL) (75-99) mg/dL Calcium 7.8 L (8.4-10.2) mg/dL Total Protein 5.2 L (6.3-8.2) g/dL Albumin 2.8 L (3.5-5.0) g/dL HDL Cholesterol (40.0-60.0) mg/dL Assessment and Plan Plan: Severe generalized weakness Anemia with hemoglobin of 7.1 Elevated troponin levels, cardiology consultation was requested in the emergency room area per cardiology possible plans for cardiac catheterization tomorrow 05/28/2021 End-stage renal disease on hemodialysis patient was started on hemodialysis a bout 2 weeks ago, she received her first outpatient dialysis session yesterday Underlying history of hypertension Underlying history of congestive heart failure Underlying history of diabetes mellitus Underlying history of hypertension Underlying history of hyperlipidemia Underlying history of coronary artery disease Underlying history of cardiac arrhythmia status post AICD and pacemaker pl acement Underlying history of COPD History of ongoing nicotine dependence At this time patient is admitted to telemetry floor Cardiology consultation was requested in that regard to elevated troponin level Nephrology consultation was requested in regards to hemodialysis and anemia Home medications reviewed and reordered Prognosis is guarded to due to advanced age and multiple medical problems
[2021-05-28 20:43] LABS: Glucose,Whole Blood 150 mg/dL (75-99)
[2021-05-28] MEDS: ATORVASTATIN 10 MG TAB PO SCH (21:16)
[2021-05-28] MEDS: INSULIN DETEMIR (LEVEMIR) 100 UNIT/ML SYR SQ SCH (21:17)
[2021-05-29] MEDS: TEMAZEPAM 15 MG CAP PO PRN (00:50)
[2021-05-29 05:57] LABS: Glucose,Whole Blood 184 mg/dL (75-99)
[2021-05-29] MEDS ORDERED: HEPARIN SODIUM,PORCINE 2,500 UNIT in SODIUM CHLORIDE 0.9% 250 ML IRRIGATION PRN (07:00)
[2021-05-29] MEDS ORDERED: HEPARIN SODIUM,PORCINE 10,000 UNIT in SODIUM CHLORIDE 0.9% 1,000 ML IRRIGATION PRN (07:00)
[2021-05-29] MEDS: carvediloL 6.25 MG TAB PO SCH ×2 (07:33→16:50)
[2021-05-29] MEDS: INSULIN ASPART (NovoLOG) 100 UNIT/ML VIAL SQ SCH ×4 (07:33→22:29)
[2021-05-29] MEDS: SODIUM CHLORIDE 0.9% 1,000 ML IV SCH (07:35)
[2021-05-29] MEDS: allopurinoL 100 MG TAB PO SCH (08:24)
[2021-05-29] MEDS: ASPIRIN 81 MG PO SCH (08:24)
[2021-05-29] MEDS: MIRTAZAPINE 15 MG TAB PO SCH (08:24)
[2021-05-29] MEDS: hydrALAZINE HCL 25 MG TAB PO SCH ×3 (08:24→20:08)
[2021-05-29] MEDS: TORSEMIDE 20 MG TAB PO SCH (08:25)
[2021-05-29] MEDS: SERTRALINE 50 MG TAB PO SCH (08:25)
[2021-05-29 08:31] LABS: Anisocytosis Slight; HCT 23.4 % (34.0-46.0); HGB 7.1 gm/dL (11.4-16.0); Hypochromasia Marked; MCH 31.3 pg (25.0-35.0); MCHC 30.6 g/dL (31.0-37.0); MCV 102.3 fL (80.0-100.0); Macrocytosis Moderate; Mean Platelet Volume 9.5; Platelet Count 126 k/uL (150-450); RBC 2.29 m/uL (3.80-5.40); RDW 16.9 % (11.5-15.5); WBC 4.8 k/uL (3.8-10.6)
[2021-05-29 08:51] LABS: Albumin 2.7 g/dL (3.5-5.0); Potassium 4.2 mmol/L (3.5-5.1); Total Bilirubin 0.3 mg/dL (0.2-1.3); Total Protein 5.2 g/dL (6.3-8.2)
[2021-05-29] MEDS: HEPARIN SOD,PORK IN 0.45% NACL 25,000 UNIT in 0.45% NACL 1 250ML.BAG IV SCH (11:04)
[2021-05-29 11:41] LABS: Eosinophils # (M) 0.05 k/uL (0-0.7); Lymphocytes # (M) 0.38 k/uL (1.0-4.8); Monocytes # (M) 0.58 k/uL (0-1.0); Neutrophils # (M) 3.79 k/uL (1.3-7.7); Neutrophils % (M) 79 %; Nucleated Red Blood Cells 0 /100 WBC (0-0); Total Cells Counted 100
[2021-05-29 11:43] LABS: Poikilocytosis (M) Present
[2021-05-29 11:45] LABS: Glucose,Whole Blood 198 mg/dL (75-99)
--- NOTE | 2021-05-29 12:06 | P.PN ---
Subjective HISTORY OF PRESENTING ILLNESS This is a pleasant 81 year old female with a past medical history significant for congestive heart failure, chronic kidney disease, hypertension, hyperlipidemia, diabetes mellitus, coronary artery disease with previous CABG, and pacemaker insertion. Patient follows in the office with Dr. Cooper. We have been asked to see the patient in consultation for congestive heart failure. Patient had a prolonged hospitalization at the beginning of this month with initiation of hemodialysis. She admits she had been on hemodialysis approximately 1 year prior however was able to come off of it. Her first psychiatric secretary was Dr Ervin and she initially had a two-vessel CABG. She did have a dual-chamber permanent pacemaker placed approximately 5 years ago. She has had varying degrees of ejection fractions from 45% up to 50% and most recent echo showed a drop in EF down the 30-35%. 05/29/2021 Pt seen and examined resting comfortably laying flat in bed. She denies chest pain, shortness of breath, dizziness or palpitations. Blood pressure 102/59 heart rate 60 afebrile and maintaining oxygen saturation on nasal cannula. Catheterization yesterday revealed severe CAD with 100% circumflex, heavily calcified LAD with 80% mid stenosis, 100% RCA, 100% SVG-RXA with only SVG-OM patent graft. Maximal medical therapy recommended.. Currently maintained on aspirin 81 mg daily, atorvastatin 5 mg at bedtime, Coreg 6.25 mg twice a day, hydralazine 25 mg 3 times a day and torsemide 40 mg daily. She underwent dialysis yesterday after procedure. PHYSICAL EXAMINATION CONSTITUTIONAL: No apparent distress. HEENT: Head is normocephalic. Pupils are equal, round. Sclerae anicteric. Mucous membranes of the mouth are moist. No JVD. No carotid bruit. CHEST EXAMINATION: Lungs are clear to auscultation. No chest wall tenderness is noted on palpation or with deep breathing. HEART EXAMINATION: Regular rate and rhythm. S1, S2 heard. No murmurs, gallops or rub. EXTREMITIES: 2+ peripheral pulses, no lower extremity edema and no calf tenderness. Left radial access site soft, nontender with strong pulses. No evidence of hematoma or ecchymosis. ASSESSMENT NSTEMI concerning for type I mechanism with initial angina symptoms around CABG headaches and new drop in EF Cardiomyopathy, may be ischemic however additionally may be influenced by RV pacing SSS s/p dual chamber PPM ESRD HTN HLD CAD s/p 2 vessel CABG Acute on chronic systolic heart failure anemia PLAN Clinically stable on current medical regimen. Increase atorvastatin to 40 mg at bedtime. Stable for discharge to follow-up with Dr. Cooper in the office in one week. Nurse Practitioner note has been reviewed, I agree with a documented findings and plan of care. Patient was seen and examined. Objective - Vital Signs Vital signs: Vital Signs Temp 98.0 F 05/29/21 08:00 Pulse 60 05/29/21 08:00 Resp 16 05/29/21 08:00 BP 102/59 05/29/21 08:00 Pulse Ox 100 05/29/21 08:00 Intake & Output 05/28/21 05/29/21 05/29/21 18:59 06:59 18:59 Intake Total 347.092 240 Output Total 1999 Balance -1652.908 240 Weight 95.2 kg Intake: IV 25 Intake, IV Titration 142.092 Amount Heparin Sod,Pork in 0.45% 142.092 NaCl 25,000 unit In 0.45 % NaCl 1 250ml.bag @ 10.5 UNITS/KG/HR 10.002 mls/ hr IV .Q24H [facility] Rx#: [id number] Oral 180 240 Output: Hemodialysis 1999 Other: Voiding Method Toilet Toilet # Voids 0 0 # Bowel Movements 0 1 - Labs CBC & Chem 7: 05/29/21 07:50 05/29/21 07:50 Labs: Abnormal Lab Results - Last 24 Hours (Table) 05/28/21 05/28/21 05/28/21 Range/Units 07:54 07:54 11:51 RBC (3.80-5.40) m/uL Hgb (11.4-16.0) gm/dL Hct (34.0-46.0) % MCV (80.0-100.0) fL MCHC (31.0-37.0) g/dL RDW (11.5-15.5) % Plt Count (150-450) k/uL Lymphocytes # (Manual) 0.40 L (1.0-4.8) k/uL Metamyelocytes # (Man) 0.06 H (0) k/uL Sodium (137-145) mmol/L BUN (7-17) mg/dL Creatinine (0.52-1.04) mg/dL Glucose (74-99) mg/dL POC Glucose (mg/dL) 113 H (75-99) mg/dL Hemoglobin A1c 6.7 H (4.0-6.0) % Calcium (8.4-10.2) mg/dL Total Protein (6.3-8.2) g/dL Albumin (3.5-5.0) g/dL 05/28/21 05/28/21 05/29/21 Range/Units 16:30 20:32 05:49 RBC (3.80-5.40) m/uL Hgb (11.4-16.0) gm/dL Hct (34.0-46.0) % MCV (80.0-100.0) fL MCHC (31.0-37.0) g/dL RDW (11.5-15.5) % Plt Count (150-450) k/uL Lymphocytes # (Manual) (1.0-4.8) k/uL Metamyelocytes # (Man) (0) k/uL Sodium (137-145) mmol/L BUN (7-17) mg/dL Creatinine (0.52-1.04) mg/dL Glucose (74-99) mg/dL POC Glucose (mg/dL) 106 H 150 H 184 H (75-99) mg/dL Hemoglobin A1c (4.0-6.0) % Calcium (8.4-10.2) mg/dL Total Protein (6.3-8.2) g/dL Albumin (3.5-5.0) g/dL 05/29/21 05/29/21 Range/Units 07:50 07:50 RBC 2.29 L (3.80-5.40) m/uL Hgb 7.1 L (11.4-16.0) gm/dL Hct 23.4 L (34.0-46.0) % MCV 102.3 H (80.0-100.0) fL MCHC 30.6 L (31.0-37.0) g/dL RDW 16.9 H (11.5-15.5) % Plt Count 126 L (150-450) k/uL Lymphocytes # (Manual) (1.0-4.8) k/uL Metamyelocytes # (Man) (0) k/uL Sodium 135 L (137-145) mmol/L BUN 36 H (7-17) mg/dL Creatinine 2.79 H (0.52-1.04) mg/dL Glucose 153 H (74-99) mg/dL POC Glucose (mg/dL) (75-99) mg/dL Hemoglobin A1c (4.0-6.0) % Calcium 8.0 L (8.4-10.2) mg/dL Total Protein 5.2 L (6.3-8.2) g/dL Albumin 2.7 L (3.5-5.0) g/dL
--- NOTE | 2021-05-29 12:55 | PN ---
PROGRESS NOTE Patient is seen for followup for end-stage renal disease. She has had another episode of acute kidney injury and is currently maintained on dialysis. I am not sure if the patient will be able to come off of dialysis this time. She was admitted with increased weakness and had an elevated troponin, for which a cardiac catheterization was performed yesterday. Patient was found to have critical disease, with plans for medical therapy at this time and possible intervention down the road if symptoms persist. She has had previous coronary artery bypass surgery, and one of the grafts SVG to OM was patent. On examination today, patient is comfortable. Blood pressure 102/59, heart rate 60 per minute. She is afebrile. EXAMINATION OF THE HEART: S1 and S2. EXAMINATION OF LUNGS: Bilateral breath sounds are heard. ABDOMEN: Soft, nontender. LOWER EXTREMITIES: Examination of lower extremities shows edema 2+ bilaterally. DATA WAREHOUSING ARCHITECT EXAM: Grossly intact. Labs show sodium 131, potassium 4.2, BUN 50, serum creatinine 3.27, hemoglobin 7.3 g/dL. ASSESSMENT: 1. Acute kidney injury on top of chronic kidney disease, currently back on hemodialysis. Patient will probably continue to require renal replacement therapy at this time. Etiology is mostly cardiorenal with volume overload and worsening renal function. She is currently maintained on a Friday, Friday, Friday schedule. Patient was dialyzed yesterday. We will plan for a treatment tomorrow. She has an IJ catheter. 2. Coronary artery disease with elevated troponin, status post cardiac catheterization. No intervention was done, with plans for possible intervention down the road. 3. Anemia of chronic disease with history of iron deficiency, status post iron during her last treatment. Currently maintained on Aranesp. 4. History of congestive heart failure, diastolic initially. Recently ejection fraction was at 30% to 35%. 5. Volume overload, currently improved. PLAN: Hemodialysis in a.m. Continue to maintain patient on Aranesp. Continue with the Demadex for now. MMODL / IJN: [id number] /
[2021-05-29 16:39] LABS: Glucose,Whole Blood 178 mg/dL (75-99)
--- NOTE | 2021-05-29 19:44 | P.PN ---
Subjective Progress Note Date: 05/29/21 Elza Avery, is an 81-year-old female who presented to [facility] emergency room due to severe weakness and fatigue. Patient was recently admitted to the hospital, she was discharged home 5 days ago, during her last admission she was started on hemodialysis, she had 1 session of hemodialysis as outpatient yesterday, however patient was extremely weak she was having difficulty standing up and walking and her decided to bring her back to emergency room. She was evaluated in emergency room vital examination revealed a temperature of 98.3 pulse 75 respiration 18 blood pressure 123/55 pulse ox 92% on room air Laboratory data reveals a white blood count of 6.0 hemoglobin 7.1 platelet count 128 sodium 132 potassium 3.7 chloride 95 CO2 30 BUN 31 creatinine 2.24 glucose 158 troponin 1.08 Chest x-ray revealed evidence of mild heart failure with small bilateral pleural effusions and pulmonary congestion, EKG revealed ventricular paced rhythm Patient was admitted to telemetry floor cardiology consultation was requested in regard to elevated troponin level, nephrology consultation was requested in regard to end-stage renal disease on hemodialysis, and anemia. On 05/27/2021 patient is alert and oriented 3. Patient remains on IV heparin. Per cardiology possible plans for cardiac catheterization tomorrow. Nephrology services also consulted. Patient remains weak and fatigued. Patient denies any chest pain. Patient denies nausea vomiting or diarrhea. Patient denies any urinary burning or frequency. On 05/28/2021 patient was seen and examined on the telemetry floor she is alert and oriented 3 in no apparent distress she is complaining of generalized weakness otherwise she denies any complaints there is no chest pain no shortness of breath no cough no nausea or vomiting no abdominal pain no diarrhea no blood in the stools and no urinary symptoms. Patient was evaluated by cardiology and is scheduled for cardiac catheterization today On 05/29/2021 patient was seen and examined on the telemetry floor she is alert and oriented 3 in no apparent distress patient is complaining of severe weakness with inability to stand and walk otherwise she denies any complaints there is no fever or chills no headache or dizziness no chest pain no shortness of breath no cough no nausea or vomiting no abdominal pain no diarrhea and no urinary symptoms patient has a larger bruise on her left upper extremity. Objective - Vital Signs Vital signs: Vital Signs Temp 98.0 F 05/29/21 08:00 Pulse 60 05/29/21 08:00 Resp 16 05/29/21 08:00 BP 102/59 05/29/21 08:00 Pulse Ox 100 05/29/21 08:00 Intake & Output 05/28/21 05/29/21 05/29/21 18:59 06:59 18:59 Intake Total 347.092 240 Output Total 1999 Balance -1652.908 240 Weight 95.2 kg Intake: IV 25 Intake, IV Titration 142.092 Amount Heparin Sod,Pork in 0.45% 142.092 NaCl 25,000 unit In 0.45 % NaCl 1 250ml.bag @ 10.5 UNITS/KG/HR 10.002 mls/ hr IV .Q24H WILMER Rx#: [id number] Oral 180 240 Output: Hemodialysis 1999 Other: Voiding Method Toilet Toilet # Voids 0 0 # Bowel Movements 0 1 - Exam In general patient is alert and oriented x 3 in no distress HEENT head normocephalic and atraumatic Neck is supple no JVD no goiter no lymphadenopathy no carotid bruit Chest examination is clear to auscultation no crackles no wheezing Cardiac exam reveals regular heart sounds S1 and S2 no gallops no murmurs Abdomen is soft nontender no organomegaly with normal bowel sounds Extremity exam reveals no edema no cyanosis or clubbing Neurological examination reveals no gross focal deficits, patient has generalized weakness - Labs CBC & Chem 7: 05/29/21 07:50 05/29/21 07:50 Labs: Abnormal Lab Results - Last 24 Hours (Table) 05/28/21 05/28/21 05/28/21 Range/Units 07:54 07:54 07:54 RBC (3.80-5.40) m/uL Hgb (11.4-16.0) gm/dL Hct (34.0-46.0) % MCV (80.0-100.0) fL MCHC (31.0-37.0) g/dL RDW (11.5-15.5) % Plt Count (150-450) k/uL Lymphocytes # (Manual) 0.40 L (1.0-4.8) k/uL Metamyelocytes # (Man) 0.06 H (0) k/uL Sodium 131 L (137-145) mmol/L Chloride 97 L (98-107) mmol/L BUN 67 H (7-17) mg/dL Creatinine 4.09 H (0.52-1.04) mg/dL Glucose 144 H (74-99) mg/dL POC Glucose (mg/dL) (75-99) mg/dL Hemoglobin A1c 6.7 H (4.0-6.0) % Calcium 7.8 L (8.4-10.2) mg/dL Total Protein 5.2 L (6.3-8.2) g/dL Albumin 2.8 L (3.5-5.0) g/dL 05/28/21 05/28/21 05/28/21 Range/Units 11:51 16:30 20:32 RBC (3.80-5.40) m/uL Hgb (11.4-16.0) gm/dL Hct (34.0-46.0) % MCV (80.0-100.0) fL MCHC (31.0-37.0) g/dL RDW (11.5-15.5) % Plt Count (150-450) k/uL Lymphocytes # (Manual) (1.0-4.8) k/uL Metamyelocytes # (Man) (0) k/uL Sodium (137-145) mmol/L Chloride (98-107) mmol/L BUN (7-17) mg/dL Creatinine (0.52-1.04) mg/dL Glucose (74-99) mg/dL POC Glucose (mg/dL) 113 H 106 H 150 H (75-99) mg/dL Hemoglobin A1c (4.0-6.0) % Calcium (8.4-10.2) mg/dL Total Protein (6.3-8.2) g/dL Albumin (3.5-5.0) g/dL 05/29/21 05/29/21 05/29/21 Range/Units 05:49 07:50 07:50 RBC 2.29 L (3.80-5.40) m/uL Hgb 7.1 L (11.4-16.0) gm/dL Hct 23.4 L (34.0-46.0) % MCV 102.3 H (80.0-100.0) fL MCHC 30.6 L (31.0-37.0) g/dL RDW 16.9 H (11.5-15.5) % Plt Count 126 L (150-450) k/uL Lymphocytes # (Manual) (1.0-4.8) k/uL Metamyelocytes # (Man) (0) k/uL Sodium 135 L (137-145) mmol/L Chloride (98-107) mmol/L BUN 36 H (7-17) mg/dL Creatinine 2.79 H (0.52-1.04) mg/dL Glucose 153 H (74-99) mg/dL POC Glucose (mg/dL) 184 H (75-99) mg/dL Hemoglobin A1c (4.0-6.0) % Calcium 8.0 L (8.4-10.2) mg/dL Total Protein 5.2 L (6.3-8.2) g/dL Albumin 2.7 L (3.5-5.0) g/dL Assessment and Plan Plan: Severe generalized weakness Anemia with hemoglobin of 7.1 Elevated troponin levels, cardiology consultation was requested in the emergency room area per cardiology possible plans for cardiac catheterization tomorrow End-stage renal disease on hemodialysis patient was started on hemodialysis about 2 weeks ago, she received her first outpatient dialysis session yesterday Underlying history of hypertension Underlying history of congestive heart failure Underlying history of diabetes mellitus Underlying history of hypertension Underlying history of hyperlipidemia Underlying history of coronary artery disease Underlying history of cardiac arrhythmia status post AICD and pacemaker placement Underlying history of COPD History of ongoing nicotine dependence At this time patient is admitted to telemetry floor Cardiology consultation was requested in that regard to elevated troponin level Nephrology consultation was requested in regards to hemodialysis and anemia Home medications reviewed and reordered Prognosis is guarded to due to advanced age and multiple medical problems
[2021-05-29] MEDS: ATORVASTATIN 40 MG TAB PO SCH (20:08)
[2021-05-29 21:04] LABS: Glucose,Whole Blood 207 mg/dL (75-99)
[2021-05-29] MEDS: INSULIN DETEMIR (LEVEMIR) 100 UNIT/ML SYR SQ SCH (22:46)
[2021-05-30] MEDS: TEMAZEPAM 15 MG CAP PO PRN ×2 (02:17→21:01)
[2021-05-30 06:01] LABS: Glucose,Whole Blood 224 mg/dL (75-99)
[2021-05-30] MEDS: carvediloL 6.25 MG TAB PO SCH ×2 (06:33→21:00)
[2021-05-30] MEDS: INSULIN ASPART (NovoLOG) 100 UNIT/ML VIAL SQ SCH ×4 (06:33→21:01)
[2021-05-30] MEDS: SODIUM CHLORIDE 0.9% 1,000 ML IV SCH (06:35)
[2021-05-30 07:22] LABS: Anisocytosis Slight; HCT 22.9 % (34.0-46.0); Hypochromasia Marked; MCH 30.7 pg (25.0-35.0); MCHC 29.8 g/dL (31.0-37.0); Macrocytosis Moderate; Mean Platelet Volume 9.5; Platelet Count 137 k/uL (150-450); RBC 2.22 m/uL (3.80-5.40); RDW 16.7 % (11.5-15.5); WBC 5.5 k/uL (3.8-10.6)
[2021-05-30 07:34] LABS: Albumin 2.8 g/dL (3.5-5.0); Calcium 8.1 mg/dL (8.4-10.2); Potassium 4.7 mmol/L (3.5-5.1); Total Bilirubin 0.2 mg/dL (0.2-1.3); Total Protein 5.2 g/dL (6.3-8.2)
[2021-05-30 07:40] LABS: HGB 6.8 gm/dL (11.4-16.0)
[2021-05-30] MEDS: ASPIRIN 81 MG PO SCH (07:48)
[2021-05-30] MEDS: allopurinoL 100 MG TAB PO SCH (07:48)
[2021-05-30] MEDS: hydrALAZINE HCL 25 MG TAB PO SCH ×3 (07:48→21:03)
[2021-05-30] MEDS: TORSEMIDE 20 MG TAB PO SCH (07:49)
[2021-05-30] MEDS: SERTRALINE 50 MG TAB PO SCH (07:49)
[2021-05-30] MEDS: MIRTAZAPINE 15 MG TAB PO SCH (07:49)
[2021-05-30 08:27] LABS: Eosinophils # (M) 0.22 k/uL (0-0.7); Lymphocytes # (M) 1.05 k/uL (1.0-4.8); Monocytes # (M) 0.55 k/uL (0-1.0); Neutrophils # (M) 3.69 k/uL (1.3-7.7); Neutrophils % (M) 67 %; Nucleated Red Blood Cells 0 /100 WBC (0-0); Total Cells Counted 100
[2021-05-30 08:29] LABS: Poikilocytosis (M) Present; Polychromasia Present
--- NOTE | 2021-05-30 11:41 | P.PN ---
Subjective HISTORY OF PRESENTING ILLNESS This is a pleasant 81 year old female with a past medical history significant for congestive heart failure, chronic kidney disease, hypertension, hyperlipidemia, diabetes mellitus, coronary artery disease with previous CABG, and pacemaker insertion. Patient follows in the office with Dr. Cooper. We have been asked to see the patient in consultation for congestive heart failure. Patient had a prolonged hospitalization at the beginning of this month with initiation of hemodialysis. She admits she had been on hemodialysis approximately 1 year prior however was able to come off of it. Her first specialist managers was Dr Ervin and she initially had a two-vessel CABG. She did have a dual-chamber permanent pacemaker placed approximately 5 years ago. She has had varying degrees of ejection fractions from 45% up to 50% and most recent echo showed a drop in EF down the 30-35%. 05/30/2021 Patient seen and examined resting comfortably lying flat in bed in no acute distress. She has no symptoms of chest pain, shortness of breath, dizziness or palpitations. Blood pressure 121/56 heart rate 68 afebrile maintaining oxygen saturations on nasal cannula. Laboratory data reviewed, WBC 5.5, hemoglobin 6.8, platelets 137, sodium 133, potassium 4.7, creatinine 4.1. PHYSICAL EXAMINATION CONSTITUTIONAL: No apparent distress. HEENT: Head is normocephalic. Pupils are equal, round. Sclerae anicteric. Mucous membranes of the mouth are moist. No JVD. No carotid bruit. CHEST EXAMINATION: Lungs are clear to auscultation. No chest wall tenderness is noted on palpation or with deep breathing. HEART EXAMINATION: Regular rate and rhythm. S1, S2 heard. No murmurs, gallops or rub. EXTREMITIES: 2+ peripheral pulses, no lower extremity edema and no calf tenderness. Left radial access site soft, nontender with strong pulses. No evidence of hematoma or ecchymosis. ASSESSMENT NSTEMI concerning for type I mechanism with initial angina symptoms around CABG headaches and new drop in EF Cardiomyopathy, may be ischemic however additionally may be influenced by RV pacing SSS s/p dual chamber PPM ESRD HTN HLD CAD s/p 2 vessel CABG Acute on chronic systolic heart failure anemia PLAN Clinically stable on current medical regimen. We will follow along as needed. Follow-up with Dr. Cooper in the office in one week. Nurse Practitioner note has been reviewed, I agree with a documented findings and plan of care. Patient was seen and examined. Objective - Vital Signs Vital signs: Vital Signs Temp 97.6 F 05/30/21 07:52 Pulse 60 05/30/21 07:52 Resp 16 05/30/21 07:52 BP 121/56 05/30/21 07:52 Pulse Ox 99 05/30/21 07:52 Intake & Output 05/29/21 05/30/21 05/30/21 18:59 06:59 18:59 Intake Total 240 480 Balance 240 480 Weight 95.2 kg 152 kg Intake: Oral 240 480 Other: Voiding Method Toilet Toilet Bedside Commode Bedside Commode # Voids 1 # Bowel Movements 1 - Labs CBC & Chem 7: 05/30/21 06:42 05/30/21 06:42 Labs: Abnormal Lab Results - Last 24 Hours (Table) 05/29/21 05/29/21 05/29/21 Range/Units 07:50 11:44 16:38 RBC (3.80-5.40) m/uL Hgb (11.4-16.0) gm/dL Hct (34.0-46.0) % MCV (80.0-100.0) fL MCHC (31.0-37.0) g/dL RDW (11.5-15.5) % Plt Count (150-450) k/uL Lymphocytes # (Manual) 0.38 L (1.0-4.8) k/uL Sodium (137-145) mmol/L BUN (7-17) mg/dL Creatinine (0.52-1.04) mg/dL Glucose (74-99) mg/dL POC Glucose (mg/dL) 198 H 178 H (75-99) mg/dL Calcium (8.4-10.2) mg/dL Total Protein (6.3-8.2) g/dL Albumin (3.5-5.0) g/dL 05/29/21 05/30/21 05/30/21 Range/Units 20:38 06:00 06:42 RBC 2.22 L (3.80-5.40) m/uL Hgb 6.8 L* (11.4-16.0) gm/dL Hct 22.9 L (34.0-46.0) % MCV 103.0 H (80.0-100.0) fL MCHC 29.8 L (31.0-37.0) g/dL RDW 16.7 H (11.5-15.5) % Plt Count 137 L (150-450) k/uL Lymphocytes # (Manual) (1.0-4.8) k/uL Sodium (137-145) mmol/L BUN (7-17) mg/dL Creatinine (0.52-1.04) mg/dL Glucose (74-99) mg/dL POC Glucose (mg/dL) 207 H 224 H (75-99) mg/dL Calcium (8.4-10.2) mg/dL Total Protein (6.3-8.2) g/dL Albumin (3.5-5.0) g/dL 05/30/21 Range/Units 06:42 RBC (3.80-5.40) m/uL Hgb (11.4-16.0) gm/dL Hct (34.0-46.0) % MCV (80.0-100.0) fL MCHC (31.0-37.0) g/dL RDW (11.5-15.5) % Plt Count (150-450) k/uL Lymphocytes # (Manual) (1.0-4.8) k/uL Sodium 133 L (137-145) mmol/L BUN 57 H (7-17) mg/dL Creatinine 4.10 H (0.52-1.04) mg/dL Glucose 180 H (74-99) mg/dL POC Glucose (mg/dL) (75-99) mg/dL Calcium 8.1 L (8.4-10.2) mg/dL Total Protein 5.2 L (6.3-8.2) g/dL Albumin 2.8 L (3.5-5.0) g/dL
[2021-05-30 11:51] LABS: Glucose,Whole Blood 105 mg/dL (75-99)
--- NOTE | 2021-05-30 12:51 | P.PN ---
Subjective Progress Note Date: 05/30/21 Elza Avery, is an 81-year-old female who presented to [facility] emergency room due to severe weakness and fatigue. Patient was recently admitted to the hospital, she was discharged home 5 days ago, during her last admission she was started on hemodialysis, she had 1 session of hemodialysis as outpatient yesterday, however patient was extremely weak she was having difficulty standing up and walking and her decided to bring her back to emergency room. She was evaluated in emergency room vital examination revealed a temperature of 98.3 pulse 75 respiration 18 blood pressure 123/55 pulse ox 92% on room air Laboratory data reveals a white blood count of 6.0 hemoglobin 7.1 platelet count 128 sodium 132 potassium 3.7 chloride 95 CO2 30 BUN 31 creatinine 2.24 glucose 158 troponin 1.08 Chest x-ray revealed evidence of mild heart failure with small bilateral pleural effusions and pulmonary congestion, EKG revealed ventricular paced rhythm Patient was admitted to telemetry floor cardiology consultation was requested in regard to elevated troponin level, nephrology consultation was requested in regard to end-stage renal disease on hemodialysis, and anemia. On 05/27/2021 patient is alert and oriented 3. Patient remains on IV heparin. Per cardiology possible plans for cardiac catheterization tomorrow. Nephrology services also consulted. Patient remains weak and fatigued. Patient denies any chest pain. Patient denies nausea vomiting or diarrhea. Patient denies any urinary burning or frequency. On 05/28/2021 patient was seen and examined on the telemetry floor she is alert and oriented 3 in no apparent distress she is complaining of generalized weakness otherwise she denies any complaints there is no chest pain no shortness of breath no cough no nausea or vomiting no abdominal pain no diarrhea no blood in the stools and no urinary symptoms. Patient was evaluated by cardiology and is scheduled for cardiac catheterization today On 05/29/2021 patient was seen and examined on the telemetry floor she is alert and oriented 3 in no apparent distress patient is complaining of severe weakness with inability to stand and walk otherwise she denies any complaints there is no fever or chills no headache or dizziness no chest pain no shortness of breath no cough no nausea or vomiting no abdominal pain no diarrhea and no urinary symptoms patient has a larger bruise on her left upper extremity. On 05/30/2023 1 patient is alert and oriented 3. Hemoglobin 6.8. 1 unit of PRBCs will be ordered with hemodialysis. Did discuss with nursing staff. At this time patient denies chest pain or shortness breath. Patient denies nausea vomiting or diarrhea. Patient denies any urinary burning or frequency Objective - Vital Signs Vital signs: Vital Signs Temp 97.6 F 05/30/21 07:52 Pulse 60 05/30/21 08:00 Resp 16 05/30/21 08:00 BP 121/56 05/30/21 07:52 Pulse Ox 99 05/30/21 07:52 Intake & Output 05/29/21 05/30/21 05/30/21 18:59 06:59 18:59 Intake Total 240 480 0 Balance 240 480 0 Weight 95.2 kg 152 kg Intake: Oral 240 480 0 Other: Voiding Method Toilet Toilet Toilet Bedside Commode Bedside Commode Bedside Commode # Voids 1 # Bowel Movements 1 - Exam In general patient is alert and oriented x 3 in no distress HEENT head normocephalic and atraumatic Neck is supple no JVD no goiter no lymphadenopathy no carotid bruit Chest examination is clear to auscultation no crackles no wheezing Cardiac exam reveals regular heart sounds S1 and S2 no gallops no murmurs Abdomen is soft nontender no organomegaly with normal bowel sounds Extremity exam reveals no edema no cyanosis or clubbing Neurological examination reveals no gross focal deficits, patient has generalized weakness - Labs CBC & Chem 7: 05/30/21 06:42 05/30/21 06:42 Labs: Abnormal Lab Results - Last 24 Hours (Table) 05/29/21 05/29/21 05/30/21 Range/Units 16:38 20:38 06:00 RBC (3.80-5.40) m/uL Hgb (11.4-16.0) gm/dL Hct (34.0-46.0) % MCV (80.0-100.0) fL MCHC (31.0-37.0) g/dL RDW (11.5-15.5) % Plt Count (150-450) k/uL Sodium (137-145) mmol/L BUN (7-17) mg/dL Creatinine (0.52-1.04) mg/dL Glucose (74-99) mg/dL POC Glucose (mg/dL) 178 H 207 H 224 H (75-99) mg/dL Calcium (8.4-10.2) mg/dL Total Protein (6.3-8.2) g/dL Albumin (3.5-5.0) g/dL Crossmatch 05/30/21 05/30/21 05/30/21 Range/Units 06:42 06:42 10:28 RBC 2.22 L (3.80-5.40) m/uL Hgb 6.8 L* (11.4-16.0) gm/dL Hct 22.9 L (34.0-46.0) % MCV 103.0 H (80.0-100.0) fL MCHC 29.8 L (31.0-37.0) g/dL RDW 16.7 H (11.5-15.5) % Plt Count 137 L (150-450) k/uL Sodium 133 L (137-145) mmol/L BUN 57 H (7-17) mg/dL Creatinine 4.10 H (0.52-1.04) mg/dL Glucose 180 H (74-99) mg/dL POC Glucose (mg/dL) (75-99) mg/dL Calcium 8.1 L (8.4-10.2) mg/dL Total Protein 5.2 L (6.3-8.2) g/dL Albumin 2.8 L (3.5-5.0) g/dL Crossmatch See Detail 05/30/21 Range/Units 11:49 RBC (3.80-5.40) m/uL Hgb (11.4-16.0) gm/dL Hct (34.0-46.0) % MCV (80.0-100.0) fL MCHC (31.0-37.0) g/dL RDW (11.5-15.5) % Plt Count (150-450) k/uL Sodium (137-145) mmol/L BUN (7-17) mg/dL Creatinine (0.52-1.04) mg/dL Glucose (74-99) mg/dL POC Glucose (mg/dL) 105 H (75-99) mg/dL Calcium (8.4-10.2) mg/dL Total Protein (6.3-8.2) g/dL Albumin (3.5-5.0) g/dL Crossmatch Assessment and Plan Plan: Severe generalized weakness Anemia with hemoglobin of 6.8 , 1 unit of PRBCs ordered with hemodialysis Elevated troponin levels. Status post cardiac catheterization showing severe CAD with recommendations to continue medically managed however if symptoms appear consistent with angina despite optimization of will consider PCI of LAD. End-stage renal disease on hemodialysis patient was started on hemodialysis about 2 weeks ago, she received her first outpatient dialysis session yesterday Underlying history of hypertension Underlying history of congestive heart failure Underlying history of diabetes mellitus Underlying history of hypertension Underlying history of hyperlipidemia Underlying history of coronary artery disease Underlying history of cardiac arrhythmia status post AICD and pacemaker placement Underlying history of COPD History of ongoing nicotine dependence Nephrology and cardiology services following Status post cardiac catheterization findings above Transfuse 1 unit PRBCs
--- NOTE | 2021-05-30 13:31 | CDI ---
Documentation Clarification Form Date: 05/30/2021 12:59:23 PM From: Jenna Walsh RN CCDS Admit Date: 05/26/2021 05:09:00 AM Patient Name: Elza Avery Visit Number: [id number] Discharge Date: ATTENTION: The Clinical Documentation Specialists (CDI) and [facility] Coding Staff appreciate your assistance in clarifying documentation. Please respond to the clarification below the line at the bottom and electronically sign. The CDI & [facility] Coding staff will review the response and follow-up if needed. Please note: Queries are made part of the Legal Health Record. If you have any questions, please contact the author of this message via ITS. Dr. Lona Arias NSTEMI Type I is documented Cardiology consult, 05/26 and Cardiology progress notes, 05/27, 05/29 & 05/30 but is not noted in subsequent documentation. Clarification is requested. History/Risk Factors: 81-year-old female presents to the ED for severe weakness and fatigue. The patient was discharged from the hospital five days prior to admission. Medical History: Heart Failure, DM, HTN, CHF, CKD III and CAD. H&P, 05/26. Clinical Indicators: VSS: . B/P 123/55; HR 75; Temp 98.3 F Oral; RR 18; SpO2 92% room air Labs: 05/26 Troponin I 1.390; 1.760; BNP 47246 Consult Cardiology: 05/26 NSTEMI concerning for type I mechanism with initial angina symptoms around CABG headaches and new drop in EF. Cardiac Catheterization: 05/28 Severe CAD as described above with 100% circumflex, diffuse heavily calcified LAD with up to 80% mid LAD stenosis, 100% RCA, 100% SVG to RCA disease and only patent graft SVG to OM. ECHO 05/26: Moderate concentric left ventricular hypertrophy. Overall left ventricular systolic function is moderate - severely impaired with an EF between 30-35%. Apical anterior LV wall motion is hypokinetic. Apical inferior LV wall motion is hypoknetic. Apical septum LV wall motion is hypokinetic. Mild tricuspid regurgitation present. Moderate pulmonary HTN. Treatment: Cardiac Catheterization see above; 05/27 to current Apresoline 25mg po tid, 05/27 to current Demadex 40mg po daily, 05/26 to current Coreg 6.25mg po bid; 05/26 to 05/29 Heparin Sodium / Sodium Chl 250.5mls @ 250mls/hr. Please clarify if the NSTEMI I is: [ ] NSTEMI I confirmed, remains under treatment [ ] NSTEMI I confirmed, resolved [ ] NSTEMI I ruled out [ ] Other condition, please specify [ ] Unable to determine (Template Last Revised: November 2020) MTDD
[2021-05-30 16:49] LABS: Glucose,Whole Blood 171 mg/dL (75-99)
--- NOTE | 2021-05-30 19:57 | PN ---
PROGRESS NOTE The patient is seen for followup for end-stage renal disease. She has had previous episodes of acute kidney injury requiring dialysis. This time, patient had another episode of acute kidney injury and started on hemodialysis. She remains on dialysis at this time. Urine output is decreased and patient will need to continue with the outpatient treatments. She is status post cardiac catheterization this admission and currently doing fairly well. PHYSICAL EXAMINATION: On examination today, blood pressure 131/61, heart rate 66 per minute. She is afebrile. Examination of the heart S1, S2. Examination of the lungs, bilateral breath sounds are heard. Abdomen is soft, nontender. Examination lower extremities shows edema 1+ bilaterally. DOPE FIRER exam grossly intact. LAB: Show hemoglobin 6.8 g/dL, sodium 133, potassium 4.7, BUN 57, serum creatinine 4.1. ASSESSMENT: 1. End-stage renal disease, on hemodialysis on a Friday, Friday, Friday schedule. 2. Acute non-ST elevation myocardial infarction status post cardiac catheterization. We will plan for aggressive medical treatment. 3. Anemia with hemoglobin down to 6.8. Maintained on Aranesp and status post IV infusions on her last admission recently. No active bleeding noted at this time. Patient will be given 1 unit of packed RBCs. 4. Chronic kidney disease, mineral bone disorder. 5. History of congestive heart failure and cardiomyopathy with ejection fraction 30- 35%. 6. Volume overload currently improved. PLAN: Hemodialysis today. Agree with transfusion of packed RBCs. Continue with Aranesp. MMODL / IJN: [id number] /
[2021-05-30 20:11] LABS: Glucose,Whole Blood 191 mg/dL (75-99)
[2021-05-30] MEDS: ATORVASTATIN 40 MG TAB PO SCH (21:00)
[2021-05-30] MEDS: INSULIN DETEMIR (LEVEMIR) 100 UNIT/ML SYR SQ SCH (21:01)
[2021-05-30] MEDS: ACETAMINOPHEN TAB 500 MG TAB PO PRN (21:01)
[2021-05-31] MEDS: SODIUM CHLORIDE 0.9% 1,000 ML IV SCH (05:29)
[2021-05-31 06:15] LABS: Glucose,Whole Blood 160 mg/dL (75-99)
[2021-05-31] MEDS: INSULIN ASPART (NovoLOG) 100 UNIT/ML VIAL SQ SCH ×4 (06:27→21:05)
[2021-05-31] MEDS: carvediloL 6.25 MG TAB PO SCH ×2 (06:27→17:13)
[2021-05-31 07:28] LABS: Anisocytosis Slight; HCT 27.2 % (34.0-46.0); Hypochromasia Moderate; MCH 31.7 pg (25.0-35.0); MCV 99.1 fL (80.0-100.0); Macrocytosis Slight; Mean Platelet Volume 9.9; Platelet Count 152 k/uL (150-450); Poikilocytosis Slight; RBC 2.74 m/uL (3.80-5.40); RDW 17.6 % (11.5-15.5); WBC 5.8 k/uL (3.8-10.6)
[2021-05-31 07:35] LABS: HGB 8.7 gm/dL (11.4-16.0)
[2021-05-31 07:38] LABS: Albumin 2.8 g/dL (3.5-5.0); Total Bilirubin 0.7 mg/dL (0.2-1.3); Total Protein 5.6 g/dL (6.3-8.2)
[2021-05-31 07:48] LABS: Potassium 4.7 mmol/L (3.5-5.1)
[2021-05-31 09:19] LABS: Eosinophils # (M) 0.46 k/uL (0-0.7); Lymphocytes # (M) 0.81 k/uL (1.0-4.8); Monocytes # (M) 0.41 k/uL (0-1.0); Neutrophils # (M) 4.12 k/uL (1.3-7.7); Neutrophils % (M) 71 %; Nucleated Red Blood Cells 0 /100 WBC (0-0); Total Cells Counted 100
[2021-05-31] MEDS: ASPIRIN 81 MG PO SCH (09:43)
[2021-05-31] MEDS: hydrALAZINE HCL 25 MG TAB PO SCH ×3 (09:43→21:04)
[2021-05-31] MEDS: MIRTAZAPINE 15 MG TAB PO SCH (09:43)
[2021-05-31] MEDS: allopurinoL 100 MG TAB PO SCH (09:43)
[2021-05-31] MEDS: SERTRALINE 50 MG TAB PO SCH (09:43)
[2021-05-31] MEDS: TORSEMIDE 20 MG TAB PO SCH (09:43)
[2021-05-31 11:12] VITALS: BMI 34.1
[2021-05-31 11:37] LABS: Glucose,Whole Blood 216 mg/dL (75-99)
--- NOTE | 2021-05-31 12:16 | PN ---
PROGRESS NOTE Patient is seen for followup for end-stage renal disease. Patient is currently lying in bed. She did get 1 unit of packed RBCs yesterday. Her hemoglobin is 8.7 today. No ongoing GI bleed noted. PHYSICAL EXAMINATION: Blood pressure was 113/57, heart rate 60 per minute, she is afebrile. Examination of the heart S1, S2. Examination of the lungs, bilateral breath sounds are heard. Abdomen is soft, nontender. Exam of lower extremities shows edema 2+ bilaterally. HOUSING LIAISON exam grossly intact. LAB: Show sodium 134, potassium 4.7, BUN 38, creatinine 2.7, hemoglobin 8.7 g/dL. ASSESSMENT: 1. End-stage renal disease, on hemodialysis on a Friday, Friday, Friday schedule. 2. Anemia status post packed RBC transfusion status post IV iron on her last admission about 2 weeks ago. Continue with the Aranesp for now. No active bleeding noted at this time. 3. Volume overload, continue with hemodialysis and oral diuretics. 4. Status post acute myocardial infarction and status post cardiac catheterization with no intervention at this time. 5. Cardiomyopathy. Current ejection fraction on 05/26/2021 on echocardiogram was 30- 35%. PLAN: Hemodialysis in a.m. Continue with the Aranesp. Maintain salt and fluid restriction. MMODL / IJN: [id number] /
--- NOTE | 2021-05-31 13:54 | P.PN ---
Subjective Progress Note Date: 05/31/21 Elza Avery, is an 81-year-old female who presented to [facility] emergency room due to severe weakness and fatigue. Patient was recently admitted to the hospital, she was discharged home 5 days ago, during her last admission she was started on hemodialysis, she had 1 session of hemodialysis as outpatient yesterday, however patient was extremely weak she was having difficulty standing up and walking and her decided to bring her back to emergency room. She was evaluated in emergency room vital examination revealed a temperature of 98.3 pulse 75 respiration 18 blood pressure 123/55 pulse ox 92% on room air Laboratory data reveals a white blood count of 6.0 hemoglobin 7.1 platelet count 128 sodium 132 potassium 3.7 chloride 95 CO2 30 BUN 31 creatinine 2.24 glucose 158 troponin 1.08 Chest x-ray revealed evidence of mild heart failure with small bilateral pleural effusions and pulmonary congestion, EKG revealed ventricular paced rhythm Patient was admitted to telemetry floor cardiology consultation was requested in regard to elevated troponin level, nephrology consultation was requested in regard to end-stage renal disease on hemodialysis, and anemia. On 05/27/2021 patient is alert and oriented 3. Patient remains on IV heparin. Per cardiology possible plans for cardiac catheterization tomorrow. Nephrology services also consulted. Patient remains weak and fatigued. Patient denies any chest pain. Patient denies nausea vomiting or diarrhea. Patient denies any urinary burning or frequency. On 05/28/2021 patient was seen and examined on the telemetry floor she is alert and oriented 3 in no apparent distress she is complaining of generalized weakness otherwise she denies any complaints there is no chest pain no shortness of breath no cough no nausea or vomiting no abdominal pain no diarrhea no blood in the stools and no urinary symptoms. Patient was evaluated by cardiology and is scheduled for cardiac catheterization today On 05/29/2021 patient was seen and examined on the telemetry floor she is alert and oriented 3 in no apparent distress patient is complaining of severe weakness with inability to stand and walk otherwise she denies any complaints there is no fever or chills no headache or dizziness no chest pain no shortness of breath no cough no nausea or vomiting no abdominal pain no diarrhea and no urinary symptoms patient has a larger bruise on her left upper extremity. On 05/30/2021 patient is alert and oriented 3. Hemoglobin 6.8. 1 unit of PRBCs will be ordered with hemodialysis. Did discuss with nursing staff. At t his time patient denies chest pain or shortness breath. Patient denies nausea vomiting or diarrhea. Patient denies any urinary burning or frequency On 05/31/2021 patient was seen and examined on the telemetry floor she is alert and oriented 3 in no apparent distress she is still complaining of severe weakness and shortness of breath with any activity and bilateral lower extremity edema otherwise she denies any complaints there is no fever or chills no headache or dizziness no chest pain no cough no nausea or vomiting no abdominal pain no diarrhea and no urinary symptoms Objective - Vital Signs Vital signs: Vital Signs Temp 98.2 F 05/31/21 08:00 Pulse 60 05/31/21 12:40 Resp 20 05/31/21 12:40 BP 141/64 05/31/21 12:00 Pulse Ox 90 L 05/31/21 12:00 Intake & Output 05/30/21 05/31/21 05/31/21 18:59 06:59 18:59 Intake Total 930 300 840 Output Total 3300 Balance 930 -3000 840 Weight 95.8 kg 96 kg 96 kg Intake: Intake, IV Titration 140 Amount Sodium Chloride 0.9% 1, 140 000 ml @ 20 mls/hr IV . Q24H [facility] Rx#:[id number] Oral 480 840 Blood Product 310 Rc As-1 Unit 310 [id number] Hemodialysis 300 Output: Hemodialysis 3300 Other: Voiding Method Toilet Toilet Toilet Bedside Commode Bedside Commode Bedside Commode # Voids 0 1 # Bowel Movements 1 - Exam In general patient is alert and oriented x 3 in no distress HEENT head normocephalic and atraumatic Neck is supple no JVD no goiter no lymphadenopathy no carotid bruit Chest examination is clear to auscultation no crackles no wheezing Cardiac exam reveals regular heart sounds S1 and S2 no gallops no murmurs Abdomen is soft nontender no organomegaly with normal bowel sounds Extremity exam reveals no edema no cyanosis or clubbing Neurological examination reveals no gross focal deficits, patient has generalized weakness - Labs CBC & Chem 7: 05/31/21 06:46 05/31/21 06:46 Labs: Abnormal Lab Results - Last 24 Hours (Table) 05/30/21 05/30/21 05/30/21 Range/Units 10:28 16:47 20:09 RBC (3.80-5.40) m/uL Hgb (11.4-16.0) gm/dL Hct (34.0-46.0) % RDW (11.5-15.5) % Lymphocytes # (Manual) (1.0-4.8) k/uL Sodium (137-145) mmol/L BUN (7-17) mg/dL Creatinine (0.52-1.04) mg/dL Glucose (74-99) mg/dL POC Glucose (mg/dL) 171 H 191 H (75-99) mg/dL Calcium (8.4-10.2) mg/dL Total Protein (6.3-8.2) g/dL Albumin (3.5-5.0) g/dL Crossmatch See Detail 05/31/21 05/31/21 05/31/21 Range/Units 06:12 06:46 06:46 RBC 2.74 L (3.80-5.40) m/uL Hgb 8.7 L D (11.4-16.0) gm/dL Hct 27.2 L (34.0-46.0) % RDW 17.6 H (11.5-15.5) % Lymphocytes # (Manual) 0.81 L (1.0-4.8) k/uL Sodium 134 L (137-145) mmol/L BUN 38 H (7-17) mg/dL Creatinine 2.72 H (0.52-1.04) mg/dL Glucose 126 H (74-99) mg/dL POC Glucose (mg/dL) 160 H (75-99) mg/dL Calcium 8.0 L (8.4-10.2) mg/dL Total Protein 5.6 L (6.3-8.2) g/dL Albumin 2.8 L (3.5-5.0) g/dL Crossmatch 05/31/21 Range/Units 11:35 RBC (3.80-5.40) m/uL Hgb (11.4-16.0) gm/dL Hct (34.0-46.0) % RDW (11.5-15.5) % Lymphocytes # (Manual) (1.0-4.8) k/uL Sodium (137-145) mmol/L BUN (7-17) mg/dL Creatinine (0.52-1.04) mg/dL Glucose (74-99) mg/dL POC Glucose (mg/dL) 216 H (75-99) mg/dL Calcium (8.4-10.2) mg/dL Total Protein (6.3-8.2) g/dL Albumin (3.5-5.0) g/dL Crossmatch Assessment and Plan Plan: Severe generalized weakness Anemia with hemoglobin of 6.8 , 1 unit of PRBCs ordered with hemodialysis Elevated troponin levels. Status post cardiac catheterization showing severe CAD with recommendations to continue medically managed however if symptoms appear consistent with angina despite optimization of will consider PCI of LAD. End-stage renal disease on hemodialysis patient was started on hemodialysis about 2 weeks ago, she received her first outpatient dialysis session yesterday Underlying history of hypertension Underlying history of congestive heart failure Underlying history of diabetes mellitus Underlying history of hypertension Underlying history of hyperlipidemia Underlying history of coronary artery disease Underlying history of cardiac arrhythmia status post AICD and pacemaker placement Underlying history of COPD History of ongoing nicotine dependence Nephrology and cardiology services following Status post cardiac catheterization findings above Transfuse 1 unit PRBCs
[2021-05-31 16:22] LABS: Glucose,Whole Blood 154 mg/dL (75-99)
[2021-05-31 20:12] LABS: Glucose,Whole Blood 228 mg/dL (75-99)
[2021-05-31] MEDS: TEMAZEPAM 15 MG CAP PO PRN (21:04)
[2021-05-31] MEDS: ATORVASTATIN 40 MG TAB PO SCH (21:04)
[2021-05-31] MEDS: INSULIN DETEMIR (LEVEMIR) 100 UNIT/ML SYR SQ SCH (21:04)
[2021-06-01] MEDS: SODIUM CHLORIDE 0.9% 1,000 ML IV SCH (05:49)
[2021-06-01 06:09] LABS: Glucose,Whole Blood 151 mg/dL (75-99)
[2021-06-01] MEDS: carvediloL 6.25 MG TAB PO SCH ×2 (06:39→17:13)
[2021-06-01] MEDS: INSULIN ASPART (NovoLOG) 100 UNIT/ML VIAL SQ SCH ×4 (06:39→20:51)
--- NOTE | 2021-06-01 09:54 | P.DS ---
Providers Date of admission: 05/26/21 05:09 Expected date of discharge: 06/01/21 Attending physician: Lona Arias Consults: 05/26/21 05:09 Consult Physician Urgent Consulting Provider: Shandra Noble Consult Reason/Comments: elevTropp Do you want consulting provider notified?: Yes 05/28/21 10:04 Consult Physician Routine Consulting Provider: Nancy Roland Consult Reason/Comments: ESRD on HD Do you want consulting provider notified?: Yes Primary care physician: Carissa Ward Hospital Course: Discharge diagnosis Severe generalized weakness Anemia with hemoglobin of 6.8 , 1 unit of PRBCs ordered with hemodialysis Non-STEMI. Status post cardiac catheterization showing severe CAD with recommendations to continue medically managed however if symptoms appear consistent with angina despite optimization of will consider PCI of LAD. Cardiomyopathy EF 30-35% End-stage renal disease on hemodialysis patient was started on hemodialysis about 2 weeks ago, she received her first outpatient dialysis session yesterday Underlying history of hypertension Underlying history of congestive heart failure Underlying history of diabetes mellitus Underlying history of hypertension Underlying history of hyperlipidemia Underlying history of coronary artery disease Underlying history of cardiac arrhythmia status post AICD and pacemaker placemen t Underlying history of COPD History of ongoing nicotine dependence Nephrology and cardiology services following Status post cardiac catheterization findings above Transfuse 1 unit PRBCs Hospital course Elza Avery, is an 81-year-old female who presented to [facility] emergency room due to severe weakness and fatigue. Patient was recently admitted to the hospital, she was discharged home 5 days ago, during her last admission she was started on hemodialysis, she had 1 session of hemodialysis as outpatient yesterday, however patient was extremely weak she was having difficulty standing up and walking and her decided to bring her back to emergency room. She was evaluated in emergency room vital examination revealed a temperature of 98.3 pulse 75 respiration 18 blood pressure 123/55 pulse ox 92% on room air Laboratory data reveals a white blood count of 6.0 hemoglobin 7.1 platelet count 128 sodium 132 potassium 3.7 chloride 95 CO2 30 BUN 31 creatinine 2.24 glucose 158 troponin 1.08 Chest x-ray revealed evidence of mild heart failure with small bilateral pleural effusions and pulmonary congestion, EKG revealed ventricular paced rhythm Patient was admitted to telemetry floor cardiology consultation was requested in regard to elevated troponin level, nephrology consultation was requested in regard to end-stage renal disease on hemodialysis, and anemia. On 05/27/2021 patient is alert and oriented 3. Patient remains on IV heparin. Per cardiology possible plans for cardiac catheterization tomorrow. Nephrology services also consulted. Patient remains weak and fatigued. Patient denies any chest pain. Patient denies nausea vomiting or diarrhea. Patient denies any urinary burning or frequency. On 05/28/2021 patient was seen and examined on the telemetry floor she is alert and oriented 3 in no apparent distress she is complaining of generalized weakness otherwise she denies any complaints there is no chest pain no shortness of breath no cough no nausea or vomiting no abdominal pain no diarrhea no blood in the stools and no urinary symptoms. Patient was evaluated by cardiology and is scheduled for cardiac catheterization today On 05/29/2021 patient was seen and examined on the telemetry floor she is alert and oriented 3 in no apparent distress patient is complaining of severe weakness with inability to stand and walk otherwise she denies any complaints there is no fever or chills no headache or dizziness no chest pain no shortness of breath no cough no nausea or vomiting no abdominal pain no diarrhea and no urinary symptoms patient has a larger bruise on her left upper extremity. On 05/30/2021 patient is alert and oriented 3. Hemoglobin 6.8. 1 unit of PRBCs will be ordered with hemodialysis. Did discuss with nursing staff. At this time patient denies chest pain or shortness breath. Patient denies nausea vomiting or diarrhea. Patient denies any urinary burning or frequency On 05/31/2021 patient was seen and examined on the telemetry floor she is alert and oriented 3 in no apparent distress she is still complaining of severe weakness and shortness of breath with any activity and bilateral lower extremity edema otherwise she denies any complaints there is no fever or chills no headache or dizziness no chest pain no cough no nausea or vomiting no abdominal pain no diarrhea and no urinary symptom On 06/01/2021 Patient alert and oriented 3. Currently getting hemodialysis. Patient stable for discharge. Patient cleared by cardiology services will follow up with cardiology services in 1 week continue current medication regime. Home health care to be arranged per shelter case manager. Patient denies any chest pain or shortness breath. Patient denies nausea vomiting or diarrhea. Patient denies any urinary burning or frequency Patient Condition at Discharge: Stable Plan - Discharge Summary Discharge Rx Participant: No New Discharge Prescriptions: Continue Simvastatin [Zocor] 5 mg PO HS Aspirin EC [Ecotrin Low Dose] 81 mg PO DAILY Mirtazapine 15 mg PO DAILY Sertraline [Zoloft] 50 mg PO DAILY Insulin Detemir (Levemir) [Levemir] 25 unit SQ HS Torsemide [Demadex] 40 mg PO DAILY 30 Days #30 tablet hydrALAZINE HCL [Apresoline] 25 mg PO TID Temazepam 30 mg PO HS PRN PRN Reason: SLEEP Allopurinol [Zyloprim] 100 mg PO DAILY Ergocalciferol [Vitamin D2 (1250 Mcg = 24113 Iu)] 50,000 unit PO BONDS Insulin Lispro [humaLOG Kwikpen] See Protocol SQ AC-TID PRN PRN Reason: HIGH BLOOD SUGAR carvediloL [Coreg] 6.25 mg PO BID-W/MEALS Discharge Medication List Simvastatin [Zocor] 5 mg PO HS 11/29/17 [History] Aspirin EC [Ecotrin Low Dose] 81 mg PO DAILY 03/09/20 [History] Mirtazapine 15 mg PO DAILY 11/17/20 [History] Temazepam 30 mg PO HS PRN 11/24/20 [History] Allopurinol [Zyloprim] 100 mg PO DAILY 05/01/21 [History] Ergocalciferol [Vitamin D2 (1250 Mcg = 90420 Iu)] 50,000 unit PO BONDS 05/01/21 [History] Insulin Detemir (Levemir) [Levemir] 25 unit SQ HS 05/01/21 [History] Insulin Lispro [humaLOG Kwikpen] See Protocol SQ AC-TID PRN 05/01/21 [History] Sertraline [Zoloft] 50 mg PO DAILY 05/01/21 [History] carvediloL [Coreg] 6.25 mg PO BID-W/MEALS 05/08/21 [History] Torsemide [Demadex] 40 mg PO DAILY 30 Days #30 tablet 05/23/21 [Rx] hydrALAZINE HCL [Apresoline] 25 mg PO TID 05/26/21 [History] Follow up Appointment(s)/Referral(s): Carmella Cooper MD [STAFF PHYSICIAN] - 1 Week Carissa Ward MD [Primary Care Provider] - 1-2 days Activity/Diet/Wound Care/Special Instructions: Activity as tolerated Diet heart healthy renal diet Discharge Disposition: HOME WITH HOME HEALTH SERVICES
[2021-06-01 11:26] LABS: Glucose,Whole Blood 155 mg/dL (75-99)
[2021-06-01] MEDS: TORSEMIDE 20 MG TAB PO SCH (12:29)
[2021-06-01] MEDS: MIRTAZAPINE 15 MG TAB PO SCH (12:29)
[2021-06-01] MEDS: ASPIRIN 81 MG PO SCH (12:29)
[2021-06-01] MEDS: hydrALAZINE HCL 25 MG TAB PO SCH ×2 (12:29→17:14)
[2021-06-01] MEDS: allopurinoL 100 MG TAB PO SCH (12:29)
[2021-06-01] MEDS: SERTRALINE 50 MG TAB PO SCH (12:29)
[2021-06-01 13:00] VITALS: RESP 18
[2021-06-01 16:26] LABS: Glucose,Whole Blood 139 mg/dL (75-99)
--- NOTE | 2021-06-01 16:46 | PN ---
PROGRESS NOTE Patient is seen for followup for acute on top of chronic kidney disease, currently dialysis dependent, renal failure maintained on Friday, Friday, Friday schedule. The patient likely has end-stage kidney disease now and will need to continue with the hemodialysis. She has been able to come off dialysis previously. Etiology had been cardiorenal syndrome and persistent fluid overload. On this admission, patient was found to have an acute myocardial infarction. She is status post cardiac catheterization with plans for medical therapy. Her hemoglobin had dropped to 6.8 g/dL on May 30 for which patient received packed RBCs. She is fairly stable. No active bleeding is noted. On examination today patient is seen on dialysis, tolerating her treatment well. PHYSICAL EXAMINATION: Blood pressure was 127/57, heart rate 60 per minute. She is afebrile. Examination of the heart S1, S2. Examination of the lungs, bilateral breath sounds are heard. Abdomen is soft, nontender. Examination of lower extremities shows edema 2+ bilaterally. D[employer]PER exam grossly intact. LAB: Show sodium 134, potassium 4.7, BUN 38, creatinine 2.7, hemoglobin 8.7 g/dL. ASSESSMENT: 1. End-stage renal disease, on hemodialysis on a Friday, Friday, Friday schedule. Currently via [facility]. The patient will be going to the [facility] as outpatient. 2. Volume overload slowly improving. 3. Status post acute non ST elevation myocardial infarction status post cardiac catheterization with the findings of coronary artery disease, to be managed medically at this point. 4. History of congestive heart failure, acute, mostly systolic. 5. Cardiomyopathy, ejection fraction 30-35%. PLAN: Patient is stable for discharge. She will follow up as outpatient for hemodialysis on Friday and we will continue with the [facility] as outpatient for anemia of chronic disease. MMODL / IJN: [id number] /
[2021-06-01 19:41] LABS: Glucose,Whole Blood 194 mg/dL (75-99)
[2021-06-01] MEDS: INSULIN DETEMIR (LEVEMIR) 100 UNIT/ML SYR SQ SCH (20:51)
[2021-06-01] MEDS: ATORVASTATIN 40 MG TAB PO SCH (20:51)
[2021-06-01] MEDS: TEMAZEPAM 15 MG CAP PO PRN (20:54)
[2021-06-02] MEDS: hydrALAZINE HCL 25 MG TAB PO SCH ×2 (00:21→08:49)
[2021-06-02] MEDS: SODIUM CHLORIDE 0.9% 1,000 ML IV SCH (06:04)
[2021-06-02 06:07] LABS: Glucose,Whole Blood 127 mg/dL (75-99)
[2021-06-02] MEDS: INSULIN ASPART (NovoLOG) 100 UNIT/ML VIAL SQ SCH ×2 (06:20→12:30)
[2021-06-02] MEDS: carvediloL 6.25 MG TAB PO SCH (06:30)
[2021-06-02] MEDS: allopurinoL 100 MG TAB PO SCH (08:49)
[2021-06-02] MEDS: SERTRALINE 50 MG TAB PO SCH (08:49)
[2021-06-02] MEDS: MIRTAZAPINE 15 MG TAB PO SCH (08:49)
[2021-06-02] MEDS: TORSEMIDE 20 MG TAB PO SCH (08:49)
[2021-06-02] MEDS: ASPIRIN 81 MG PO SCH (08:49)
--- NOTE | 2021-06-02 11:26 | P.PN ---
Subjective Progress Note Date: 06/02/21 Principal diagnosis: This is an 81-year-old female seen in consultation because of chronic kidney disease, acute kidney injury now dialysis dependent. She is on dialysis Friday on the Friday. She also had an acute MD, had a cardiac catheterization done. She has a ejection fraction of 30-35% secondary to ischemic cardiomyopathy Previously she was on dialysis for a few weeks and came off of it. She is being readied for discharge today. She remains on nasal cannula she is able to walk with a walker. This has been going on for some time and should been using a walker at home even before this admission. Her appetite is fair no nausea vomiting diarrhea no cough. Objective - Vital Signs Vital signs: Vital Signs Temp 97.7 F 06/02/21 08:39 Pulse 60 06/02/21 08:39 Resp 18 06/02/21 08:39 BP 122/50 06/02/21 08:39 Pulse Ox 96 06/02/21 08:47 Intake & Output 06/01/21 06/02/21 06/02/21 18:59 06:59 18:59 Intake Total 960 20 520 Balance 960 20 520 Weight 93.5 kg Intake: IV 20 Invasive Line 2 20 Oral 960 520 Other: Voiding Method Toilet Toilet Toilet # Voids 0 0 2 # Bowel Movements 1 Examination awake alert oriented she is on nasal cannula oxygen comfortable HEENT exam no JVP neck is supple no facial asymmetry Lungs are significant for by crackles at bases more on the right than on the left. Good air entry bilaterally Heart sounds unremarkable for any murmur rub gallop Abdomen soft nontender Extreme exam was moderate edema Neurologically awake alert oriented. - Labs CBC & Chem 7: 05/31/21 06:46 05/31/21 06:46 Labs: Abnormal Lab Results - Last 24 Hours (Table) 06/01/21 06/01/21 06/01/21 Range/Units 11:25 16:24 19:38 POC Glucose (mg/dL) 155 H 139 H 194 H (75-99) mg/dL 06/02/21 Range/Units 06:05 POC Glucose (mg/dL) 127 H (75-99) mg/dL Assessment and Plan Assessment: Impression 1. ESRD on dialysis Friday was a Friday new started. She is a potential re tinal dialysis candidate I spoke to her today and she is willing to consider. 2. Condition heart failure, ischemic cardiomyopathy, status post acute MD and cardiac catheterization. Stable with the few crackles at bases but the last chest x-ray was reasonable 3. Anemia of chronic illness and ESRD. Hemoglobin is 8.7 going up Recommendation Patient can be discharged and she can discuss with her dialysis staff in the [place] dialysis unit where she is going to be getting her outpatient dialysis regarding peritoneal dialysis.
--- NOTE | 2021-06-02 11:34 | P.PN ---
Subjective Progress Note Date: 06/02/21 Elza Avery, is an 81-year-old female who presented to [facility] emergency room due to severe weakness and fatigue. Patient was recently admitted to the hospital, she was discharged home 5 days ago, during her last admission she was started on hemodialysis, she had 1 session of hemodialysis as outpatient yesterday, however patient was extremely weak she was having difficulty standing up and walking and her decided to bring her back to emergency room. She was evaluated in emergency room vital examination revealed a temperature of 98.3 pulse 75 respiration 18 blood pressure 123/55 pulse ox 92% on room air Laboratory data reveals a white blood count of 6.0 hemoglobin 7.1 platelet count 128 sodium 132 potassium 3.7 chloride 95 CO2 30 BUN 31 creatinine 2.24 glucose 158 troponin 1.08 Chest x-ray revealed evidence of mild heart failure with small bilateral pleural effusions and pulmonary congestion, EKG revealed ventricular paced rhythm Patient was admitted to telemetry floor cardiology consultation was requested in regard to elevated troponin level, nephrology consultation was requested in regard to end-stage renal disease on hemodialysis, and anemia. On 05/27/2021 patient is alert and oriented 3. Patient remains on IV heparin. Per cardiology possible plans for cardiac catheterization tomorrow. Nephrology services also consulted. Patient remains weak and fatigued. Patient denies any chest pain. Patient denies nausea vomiting or diarrhea. Patient denies any urinary burning or frequency. On 05/28/2021 patient was seen and examined on the telemetry floor she is alert and oriented 3 in no apparent distress she is complaining of generalized weakness otherwise she denies any complaints there is no chest pain no shortness of breath no cough no nausea or vomiting no abdominal pain no diarrhea no blood in the stools and no urinary symptoms. Patient was evaluated by cardiology and is scheduled for cardiac catheterization today On 05/29/2021 patient was seen and examined on the telemetry floor she is alert and oriented 3 in no apparent distress patient is complaining of severe weakness with inability to stand and walk otherwise she denies any complaints there is no fever or chills no headache or dizziness no chest pain no shortness of breath no cough no nausea or vomiting no abdominal pain no diarrhea and no urinary symptoms patient has a larger bruise on her left upper extremity. On 05/30/2021 patient is alert and oriented 3. Hemoglobin 6.8. 1 unit of PRBCs will be ordered with hemodialysis. Did discuss with nursing staff. At t his time patient denies chest pain or shortness breath. Patient denies nausea vomiting or diarrhea. Patient denies any urinary burning or frequency On 05/31/2021 patient was seen and examined on the telemetry floor she is alert and oriented 3 in no apparent distress she is still complaining of severe weakness and shortness of breath with any activity and bilateral lower extremity edema otherwise she denies any complaints there is no fever or chills no headache or dizziness no chest pain no cough no nausea or vomiting no abdominal pain no diarrhea and no urinary symptoms On 06/02/2021 patient is alert and oriented 3. Discharge held yesterday due to power outage at patient's home. Per nursing staff however has been restored. Patient will be discharged home and follow-up in outpatient dialysis center. At this time patient denies chest pain or shortness breath. Patient denies na usea vomiting or diarrhea. Patient denies any urinary burning or frequency Objective - Vital Signs Vital signs: Vital Signs Temp 97.7 F 06/02/21 08:39 Pulse 60 06/02/21 08:39 Resp 18 06/02/21 08:39 BP 122/50 06/02/21 08:39 Pulse Ox 96 06/02/21 08:47 Intake & Output 06/01/21 06/02/21 06/02/21 18:59 06:59 18:59 Intake Total 960 20 520 Balance 960 20 520 Weight 93.5 kg Intake: IV 20 Invasive Line 2 20 Oral 960 520 Other: Voiding Method Toilet Toilet Toilet # Voids 0 0 2 # Bowel Movements 1 - Exam In general patient is alert and oriented x 3 in no distress HEENT head normocephalic and atraumatic Neck is supple no JVD no goiter no lymphadenopathy no carotid bruit Chest examination is clear to auscultation no crackles no wheezing Cardiac exam reveals regular heart sounds S1 and S2 no gallops no murmurs Abdomen is soft nontender no organomegaly with normal bowel sounds Extremity exam reveals no edema no cyanosis or clubbing Neurological examination reveals no gross focal deficits, patient has generalized weakness - Labs CBC & Chem 7: 05/31/21 06:46 05/31/21 06:46 Labs: Abnormal Lab Results - Last 24 Hours (Table) 06/01/21 06/01/21 06/02/21 Range/Units 16:24 19:38 06:05 POC Glucose (mg/dL) 139 H 194 H 127 H (75-99) mg/dL Assessment and Plan Plan: Severe generalized weakness Anemia with hemoglobin of 6.8 , 1 unit of PRBCs ordered with hemodialysis Elevated troponin levels. Status post cardiac catheterization showing severe CAD with recommendations to continue medically managed however if symptoms appear consistent with angina despite optimization of will consider PCI of LAD. End-stage renal disease on hemodialysis patient was started on hemodialysis about 2 weeks ago, she received her first outpatient dialysis session yesterday Underlying history of hypertension Underlying history of congestive heart failure Underlying history of diabetes mellitus Underlying history of hypertension Underlying history of hyperlipidemia Underlying history of coronary artery disease Underlying history of cardiac arrhythmia status post AICD and pacemaker placement Underlying history of COPD History of ongoing nicotine dependence Nephrology and cardiology services following Status post cardiac catheterization findings above Transfuse 1 unit PRBCs Be DC'd home today follow-up with dialysis Center
[2021-06-02 11:39] LABS: Glucose,Whole Blood 202 mg/dL (75-99)
[2021-06-02 12:29] VITALS: BP 133/65; PULSE 63; TEMP 97.6
== END 2021-06-02 14:45 | disposition home health service (06) | DRG 280 ==
LOC: EC 03:51 → 3SCARD 05:09
PROVIDERS: ADMIT Internal Medicine; ATTEND Internal Medicine
PROC: 30233N1 Transfusion of Nonautologous Red Blood Cells into Peripheral Vein, Percutaneous Approach (ICD-10-PCS; principal; 2021-05-30)
PROC: 4A023N7 Measurement of Cardiac Sampling and Pressure, Left Heart, Percutaneous Approach (ICD-10-PCS; 2021-05-30)
PROC: B2111ZZ Fluoroscopy of Multiple Coronary Arteries using Low Osmolar Contrast (ICD-10-PCS; 2021-05-30)
DX: I21.4 Non-ST elevation (NSTEMI) myocardial infarction (principal); I50.43 Acute on chronic combined systolic (congestive) and diastolic (congestive) heart failure; N18.6 End stage renal disease; I13.2 Hypertensive heart and chronic kidney disease with heart failure and with stage 5 chronic kidney disease, or end stage renal disease; J96.10 Chronic respiratory failure, unspecified whether with hypoxia or hypercapnia; N17.9 Acute kidney failure, unspecified; Z16.24 Resistance to multiple antibiotics; D63.8 Anemia in other chronic diseases classified elsewhere; E11.22 Type 2 diabetes mellitus with diabetic chronic kidney disease; E78.5 Hyperlipidemia, unspecified; I25.10 Atherosclerotic heart disease of native coronary artery without angina pectoris; I25.2 Old myocardial infarction; I25.5 Ischemic cardiomyopathy; I25.84 Coronary atherosclerosis due to calcified coronary lesion; J44.9 Chronic obstructive pulmonary disease, unspecified; M89.9 Disorder of bone, unspecified; G47.33 Obstructive sleep apnea (adult) (pediatric); Z95.0 Presence of cardiac pacemaker; Z79.4 Long term (current) use of insulin; Z79.82 Long term (current) use of aspirin; Z79.899 Other long term (current) drug therapy; Z80.8 Family history of malignant neoplasm of other organs or systems; Z82.49 Family history of ischemic heart disease and other diseases of the circulatory system; Z87.891 Personal history of nicotine dependence; Z95.1 Presence of aortocoronary bypass graft; Z95.810 Presence of automatic (implantable) cardiac defibrillator; Z99.2 Dependence on renal dialysis; Z90.710 Acquired absence of both cervix and uterus
CPT/HCPCS: 71046; 80053; 80061; 83036; 83735; 83880; 84100; 84484; 85025; 85610; 85730; 86850; 86900; 86901; 86920; 87635; 90935; 93005; 93306; 93459; 94760; 99285

== ENCOUNTER 2021-08-14 09:05 | Inpatient (IN) | payer MEDICARE, BC ==
[~2021-08-14 09:05] MED LIST changes: +ALPRAZolam 0.25 MG TAB PO PRN; +ALPRAZolam 0.5 MG TAB PO PRN; +ASPIRIN 325 MG TAB PO ONE; +ATORVASTATIN 80 MG TAB PO STA; +HEPARIN SODIUM,PORCINE 10,000 UNIT in SODIUM CHLORIDE 0.9% 1,000 ML IRRIGATION PRN; +HEPARIN SODIUM,PORCINE 2,500 UNIT in SODIUM CHLORIDE 0.9% 250 ML IRRIGATION PRN; +NITROGLYCERIN SL TABS 0.4 MG TAB SUBLINGUAL PRN; -REGADENOSON 0.4 MG/5 ML SYRINGE IV ONE
[2021-08-14] MEDS ORDERED: SODIUM CHLORIDE 0.9% 1,000 ML IV ONE (09:14)
[2021-08-14 09:49] LABS: Glucose,Whole Blood 105 mg/dL (75-99)
[2021-08-14 09:52] LABS: HCT 40.5 % (34.0-46.0); HGB 13.2 gm/dL (11.4-16.0); MCH 31.2 pg (25.0-35.0); MCHC 32.6 g/dL (31.0-37.0); MCV 95.7 fL (80.0-100.0); Platelet Count 148 k/uL (150-450); RBC 4.23 m/uL (3.80-5.40); WBC 8.5 k/uL (3.8-10.6)
[2021-08-14] MEDS ORDERED: LIDOCAINE 1% INJ 10MG/ML (20 ML MDV) ONE (10:14)
[2021-08-14 10:16] LABS: Calcium 9.1 mg/dL (8.4-10.2)
[2021-08-14 10:31] LABS: Potassium 4.7 mmol/L (3.5-5.1)
[2021-08-14 10:34] LABS: Eosinophils # (M) 0.43 k/uL (0-0.7); Lymphocytes # (M) 1.02 k/uL (1.0-4.8); Monocytes # (M) 0.43 k/uL (0-1.0); Neutrophils # (M) 6.63 k/uL (1.3-7.7); Neutrophils % (M) 78 %; Nucleated Red Blood Cells 0 /100 WBC (0-0); Total Cells Counted 100
[2021-08-14 10:35] LABS: Anisocytosis (M) Present
[2021-08-14] MEDS ORDERED: MIDAZOLAM 2 MG/2 ML VIAL IVP ONE ×2 (11:09)
[2021-08-14] MEDS ORDERED: LIDOCAINE 1% INJ 10MG/ML (20 ML MDV) SQ ONE (11:10)
[2021-08-14] MEDS ORDERED: HEPARIN SODIUM 1,000 UN/ML (10ML VL) ONE (11:14)
[2021-08-14] MEDS: fentaNYL (PF) 50 MCG/ML 5 ML AMP IVP ONE ×2 (11:21→11:34)
[2021-08-14] MEDS ORDERED: HEPARIN SODIUM 1,000 UN/ML (10ML VL) IV ONE (11:37)
[2021-08-14] MEDS ORDERED: CLOPIDOGREL 75 MG TAB ONE (12:42)
[2021-08-14] MEDS ORDERED: CLOPIDOGREL 75 MG TAB PO ONE (12:43)
[2021-08-14] MEDS: NITROGLYCERIN 1000MCG/10ML SYRINGE INTRACORON ONE ×2 (12:47→12:51)
[2021-08-14] MEDS ORDERED: IOPAMIDOL-370 100ML BTL INJ ONE (12:48)
[2021-08-14] MEDS ORDERED: NITROGLYCERIN SL TABS 0.4 MG TAB SUBLINGUAL ONE ×2 (12:53)
[2021-08-14] MEDS ORDERED: HYDROmorphone 0.5 MG/0.5 ML SYRINGE IVP ONE ×2 (12:53→12:57)
[2021-08-14] MEDS ORDERED: NITROGLYCERIN SL TABS 0.4 MG TAB SUBLINGUAL PRN (13:24)
[2021-08-14] MEDS ORDERED: ATROPINE SULFATE 0.1 MG/ML 10ML SYRINGE IV PRN (13:24)
[2021-08-14] MEDS ORDERED: MAG HYDROX/AL HYDROX/SIMETH 30 ML CUP PO PRN (13:24)
[2021-08-14] MEDS ORDERED: ZOLPIDEM 5 MG TAB PO PRN (13:24)
[2021-08-14] MEDS ORDERED: RX INFO: IV CONTRAST WAS GIVEN 1 EACH MISC MISCELLANE PRN (13:24)
[2021-08-14] MEDS ORDERED: SODIUM CHLORIDE 0.9% 1,000 ML IV SCH (13:30)
[2021-08-14 13:44] LABS: Glucose,Whole Blood 107 mg/dL (75-99)
[2021-08-14] MEDS ORDERED: TEMAZEPAM 30 MG CAP PO PRN (13:48)
[2021-08-14] MEDS ORDERED: HEPARIN SODIUM 1,000 UN/ML (10ML VL) IV PRN (14:38)
[2021-08-14] MEDS ORDERED: HEPARIN SOD,PORK IN 0.45% NACL 25,000 UNIT in 0.45% NACL 1 250ML.BAG IV SCH (14:45)
[2021-08-14] MEDS: SODIUM CHLORIDE 0.9% 1,000 ML in EMPTY BAG 1 BAG IV SCH ×2 (15:30→20:31)
[2021-08-14] MEDS: hydrALAZINE HCL 25 MG TAB PO SCH (16:00)
[2021-08-14] MEDS ORDERED: HEPARIN SODIUM,PORCINE/PF 5,000 UNIT/0.5 ML SYRINGE SQ SCH (16:00)
--- NOTE | 2021-08-14 16:10 | P.GSCN ---
History of Present Illness Consult date: 08/14/21 Reason for Consult: Cold Right leg Requesting physician: Carmella Cooper History of present illness: This is an 81-year-old female scheduled for cardiac stent placement LAD with Dr. Cooper. Apparently an Impala device was used and patient was admitted to the ICU with Fem-stop to right groin to control bleeding. Cardiovascular report not available at this time. Nursing reported that patient began to have blue toes, and unable to feel pulse in right foot. Apparently during the procedure there had never been a Doppler signal on the right dorsalis pedis. Apparently though after the procedure nursing reported she was given report that there was a posterior tibialis signal. She has a past medical history including coronary artery disease with ischemic cardiomyopathy and status post bypass surgery, diabetes mellitus, diabetic neuropathy,end-stage renal disease on hemodialysis, she is a current every day smoker for many years. She denies any previous history of peripheral arterial disease. She has seen Dr. Goins in the past for tunneled catheter placement however she states she's never had any vascular intervention done to her lower extremities or any imaging. Upon evaluation, tFem-stop was in place at the right groin, patient is able to wiggle her toes slightly. Her foot and toes are slightly dusky and cool to the touch. She denies any pain to her right lower extremity, fever, or chills. She denies any chest pain or shortness of breath. Review of Systems - Constitutional Constitutional Comment(s): 14 point review of systems was completed all pertinent positives and negatives as stated in the HPI Past Medical History Past Medical History: Heart Failure, COPD, Diabetes Mellitus, Hyperlipidemia, Hypertension, Myocardial Infarction (MA), Musculoskeletal Disorder, Renal Disease, Sleep Apnea/CPAP/BIPAP, Thyroid Disorder Additional Past Medical History / Comment(s): Hemodialysis MWF from 12:30 to 4:30, CHF with diastolic heart failure, hypertension, chronic kidney disease stage III, coronary artery disease with previous bypass surgery, history of pa cemaker insertion 2014, obstructive sleep apnea, thyroid nodules, , history of smoking in the order of [id number],no cpap Last Myocardial Infarction Date:: 05/26/21 History of Any Multi-Drug Resistant Organisms: ESBL Year Discovered:: 10/18/19 MDRO Source:: ESBL URINE Past Surgical History: Appendectomy, Back Surgery, Bariatric Surgery, Coronary Bypass/CABG, Heart Catheterization, Hysterectomy, Pacemaker Additional Past Surgical History / Comment(s): LAP BAND insertion and removal, CATARACT LEFT EYE, NEUROMA ON FOOT, KNEE ARTHROSCOPY, PACEMAKER ([employer] 04/18/2015) Partial thyroidectomy 1999 Past Anesthesia/Blood Transfusion Reactions: No Reported Reaction Type of Cardiac Device: Permanent Pacemaker Device Placement Date:: 04/18/2015 [employer] Smoking Status: Former smoker - Past Family History Son(s) Family Medical History: Cancer Additional Family Medical History / Comment(s): MELANOMA- Brother(s) Family Medical History: Cancer Father History Unknown: Yes Family Medical History: Cancer Mother Family Medical History: CVA/TIA Medications and Allergies Home Medications Medication Instructions Recorded Confirmed Type Simvastatin [Zocor] 5 mg PO HS 11/29/17 08/14/21 History Mirtazapine 15 mg PO DAILY 11/17/20 08/14/21 History Temazepam 30 mg PO HS PRN 11/24/20 08/14/21 History Allopurinol [Zyloprim] 100 mg PO DAILY 05/01/21 08/14/21 History Ergocalciferol [Vitamin D2 (1250 50,000 unit PO BONDS 05/01/21 08/14/21 History Mcg = 23559 Iu)] Insulin Detemir (Levemir) [Levemir] 25 unit SQ HS 05/01/21 08/14/21 History Insulin Lispro [humaLOG Kwikpen] See Protocol SQ AC-TID PRN 05/01/21 08/14/21 History Sertraline [Zoloft] 50 mg PO DAILY 05/01/21 08/14/21 History carvediloL [Coreg] 6.25 mg PO BID-W/MEALS 05/08/21 08/14/21 History Torsemide [Demadex] 40 mg PO DAILY 30 Days #30 tablet 05/23/21 08/14/21 Rx hydrALAZINE HCL [Apresoline] 25 mg PO TID 05/26/21 08/14/21 History Apixaban [Eliquis] 2.5 mg PO BID 08/14/21 08/14/21 History Allergies Allergy/AdvReac Type Severity Reaction Status Date / Time No Known Allergies Allergy Verified 08/14/21 12:36 Surgical - Exam Vital Signs Temp Pulse Resp BP Pulse Ox 98.9 F 78 18 140/43 100 08/14/21 09:42 08/14/21 09:42 08/14/21 09:42 08/14/21 09:42 08/14/21 09:42 General appearance: The patient is alert, oriented, in no acute distress. HET: Head is normocephalic and atraumatic. Pupils are equal and reactive. Oropharynx is clear without lesions. Neck: Supple without lymphadenopathy. Trachea midline. Heart: S1 S2. Regular rate and rhythm. Lungs: Clear to auscultation. Abdomen: Soft, nontender, nondistended. Extremities: Fem-stop to right groin. Right leg from the knee down cool to the touch, unable to palpate dorsalis pedis or posterior tibialis pulse. Patient with improved color now turning pink, initially was dusky in toes. Decreased capillary refill. Patient is able to wiggle her toes and has good sensation. Positive femoral and popliteal doppler signal. Unable to obtain posterior tibialis or dorsalis pedis Doppler signal. Left lower extremity with palpable DP and PT pulse, warm to the touch with good capillary refill. Neurological: No focal deficits. Strength and sensation are intact. Results - Labs 08/14/21 09:15 08/14/21 09:15 Abnormal Lab Results - Last 24 Hours (Table) 08/14/21 08/14/21 08/14/21 Range/Units 09:15 09:15 09:42 Plt Count 148 L (150-450) k/uL Chloride 97 L (98-107) mmol/L BUN 55 H (7-17) mg/dL Creatinine 3.60 H (0.52-1.04) mg/dL Glucose 122 H (74-99) mg/dL POC Glucose (mg/dL) 105 H (75-99) mg/dL 08/14/21 Range/Units 13:42 Plt Count (150-450) k/uL Chloride (98-107) mmol/L BUN (7-17) mg/dL Creatinine (0.52-1.04) mg/dL Glucose (74-99) mg/dL POC Glucose (mg/dL) 107 H (75-99) mg/dL Diabetes panel 08/14/21 Range/Units 09:15 Sodium 137 (137-145) mmol/L Potassium 4.7 (3.5-5.1) mmol/L Chloride 97 L (98-107) mmol/L Carbon Dioxide 30 (22-30) mmol/L BUN 55 H (7-17) mg/dL Creatinine 3.60 H (0.52-1.04) mg/dL Glucose 122 H (74-99) mg/dL Calcium 9.1 (8.4-10.2) mg/dL Calcium panel 08/14/21 Range/Units 09:15 Calcium 9.1 (8.4-10.2) mg/dL Pituitary panel 08/14/21 Range/Units 09:15 Sodium 137 (137-145) mmol/L Potassium 4.7 (3.5-5.1) mmol/L Chloride 97 L (98-107) mmol/L Carbon Dioxide 30 (22-30) mmol/L BUN 55 H (7-17) mg/dL Creatinine 3.60 H (0.52-1.04) mg/dL Glucose 122 H (74-99) mg/dL Calcium 9.1 (8.4-10.2) mg/dL Adrenal panel 08/14/21 Range/Units 09:15 Sodium 137 (137-145) mmol/L Potassium 4.7 (3.5-5.1) mmol/L Chloride 97 L (98-107) mmol/L Carbon Dioxide 30 (22-30) mmol/L BUN 55 H (7-17) mg/dL Creatinine 3.60 H (0.52-1.04) mg/dL Glucose 122 H (74-99) mg/dL Calcium 9.1 (8.4-10.2) mg/dL Assessment and Plan Assessment: 1. Ischemic changes to the right lower extremity status post cardiac stenting and Impala support, likely related to Fem-stop pressure. 2. History of coronary artery disease 3. Diabetes mellitus 4. End-stage renal disease on hemodialysis 5. Current smoker Plan: 1. Continue symptomatic and supportive care 2. Agree with heparin drip 3. Reduce pressure from Fem-Stop 4. Further recommendations forthcoming per vascular surgeon Thank you for this consultation and allowing us take part in the plan of care of your patient during her hospital stay. The impression and plan of care has been dictated as directed. Dr. Henao I performed a history and examination of this patient, discussed the same with the dictator. I agree with the dictator's note ,documented as a scribe. Any additional findings or plans will be noted.
[2021-08-14 16:14] LABS: INR 1.1 (<1.2); Partial Thromboplastin Time 31.2 sec (22.0-30.0); Prothrombin Time 11.2 sec (9.0-12.0)
[2021-08-14 16:51] LABS: Glucose,Whole Blood 107 mg/dL (75-99)
--- NOTE | 2021-08-14 17:11 | PN ---
PROGRESS NOTE I came back to see Mrs. Avery in the afternoon about 4:00 because of some inability to get pulse in the right lower extremity. The foot is cooler but not very cold. Up until the ankle there was good warmth. Popliteal pulse is palpable. I am requesting vascular surgeon to evaluate the patient. I do not believe there is a concern. Femstop has been taken off. I will place her on low-dose heparin and keep an eye on her. We will continue the dual antiplatelet therapy. I will re-evaluate her tomorrow morning and I expect that we can manage her conservatively. Discussed my thoughts in detail with the patient and . Blood pressure is 130/70. Pulse rate is 70. Patient is comfortable, asymptomatic. Awaiting further input from vascular surgeon, Dr. Esquivel or Dr. Henao. MMLEVL / IJN: [id number] /
[2021-08-14] MEDS: INSULIN ASPART (NovoLOG) 100 UNIT/ML VIAL SQ SCH ×2 (17:15→20:48)
[2021-08-14] MEDS ORDERED: carvediloL 6.25 MG TAB PO SCH (17:30)
--- NOTE | 2021-08-14 17:35 | PCN ---
PROCEDURE NOTE DATE OF SERVICE: 08/14/2021 PROCEDURES: 1. Impella heart pump placement from right femoral approach under fluoroscopic guidance. 2. Orbital atherectomy of proximal and mid LAD. 3. Percutaneous transluminal coronary angioplasty and stenting of proximal and mid LAD with two drug-eluting stents. PERFORMED BY: Dr. Cristina Cooper. Moderate conscious sedation time was 119 minutes. Patient was administered Versed, Dilaudid, fentanyl. Oxygen saturation, hemodynamics and EKG were monitored closely. CLINICAL INFORMATION: Mrs. Elza Avery is an 81-year-old lady with a known history of end-stage renal disease, hypertension, diabetes, hyperlipidemia, who also has significant CAD with previous bypass surgery. She had two vein grafts placed to the circumflex and RCA. LAD was never grafted. She came in with a [id number] CA in May, had a cardiac cath by Dr. Nguyen, which revealed diffuse disease in a heavily calcified LAD with total occlusion of the RCA graft and patent vein graft to the obtuse marginal which was also filling to the RCA to some extent. Ejection fraction was 40% with moderate MR. After due discussion, patient was advised intervention of the LAD with an Impella heart pump support. Ejection fraction was in 35% to 40% range and the LAD was her main vessel. Circumflex was totally occluded with vein graft filling the obtuse marginal. She was brought in for the procedure electively. I did a noninvasive assessment of the lower extremity and patient had diminished pulses. However, under strict aseptic she was advised the procedure after doing an angiogram of the right lower extremity. PROCEDURE NOTE: Under local anesthesia and strict aseptic precautions, a 6-Nicaraguan introducer was placed in the right femoral artery. There was heavy calcification, but the caliber of the artery was fairly decent. I did a pre-close with two Perclose devices in a 2 o'clock and 10 o'clock position. I then advanced an 8-Nicaraguan and 10- and 12-Nicaraguan dilators, and eventually a 14-Nicaraguan sheath was placed uneventfully. Distal pulses were not the greatest to begin with, and with placement of the device, pulses were not palpable but the foot was warm. I then advanced and positioned the Impella in the LV cavity under fluoroscopic guidance. Excellent waveform and cardiac output of 3.5 L were noted. This was an Impella CP. Subsequently I did angiography of the left coronary artery. Initially I tried with an EBU catheter and subsequently used an XB LAD 3.0 guide catheter of 6-Nicaraguan caliber. Good position was achieved of the guide catheter. I used a run-through wire to advance and cross the lesion and kept the wire in the distal portion of the LAD. I used a Teleport catheter. With this I exchanged the long 300 cm run-through wire and advanced a Nitinol orbital atherectomy wire. I then took the Teleport catheter out and performed orbital atherectomy with 3 passes of the mid and proximal LAD. Subsequent angiography revealed modest improvement. I then used a 2.5 caliber 15 mm long NC Trek balloon. With this, I pre-dilated the entire lesion. I switched over from Nitinol wire to the run-through wire with a Teleport catheter. I then advanced and positioned an 18 mm long 2.75 caliber Xience stent in the distal aspect of the lesion just after the diagonal branch, and proximal to it and telescoping into it was a 12 mm long 3.0 caliber Xience stent, and excellent angiographic result was achieved. Both stents were deployed at 14 atmospheres. Excellent angiographic result was achieved. Patient had mild chest pain and no significant EKG changes. She had a paced rhythm. Patient has an underlying dual-chamber pacemaker. Excellent angiographic result was achieved. I then took the sheath out and tried to use the two Perclose devices. I was able to deploy one Perclose suture very well, but the other Perclose suture broke and then I used an 8-Nicaraguan Angio-Seal. Excellent hemostasis was achieved. Pulse in the distal foot was not palpable, but the foot was acceptably warm. She will be watched very closely and was sent to the ICU. Excellent angiographic result without complication was achieved. Findings were discussed with the patient and her . She will be sent to the ICU and we will watch her right lower extremity closely. I also spoke to a lining presser and requested dialysis tomorrow. If all goes well, I expect she will be discharged tomorrow evening after dialysis. We will watch her right lower extremity closely. Angiographic result was excellent. Patient remained hemodynamically stable throughout. The Impella was taken out uneventfully under fluoroscopic guidance. MMODL / IJN: [id number] /
[2021-08-14 18:59] LABS: HCT 35.8 % (34.0-46.0); HGB 11.3 gm/dL (11.4-16.0); Hypochromasia Slight; MCH 31.3 pg (25.0-35.0); MCHC 31.6 g/dL (31.0-37.0); MCV 98.9 fL (80.0-100.0); Macrocytosis Slight; Platelet Count 111 k/uL (150-450); RBC 3.62 m/uL (3.80-5.40); RDW 15.1 % (11.5-15.5); WBC 7.7 k/uL (3.8-10.6)
[2021-08-14 20:43] LABS: Glucose,Whole Blood 141 mg/dL (75-99)
[2021-08-14] MEDS ORDERED: INSULIN DETEMIR (LEVEMIR) 100 UNIT/ML SYR SQ SCH (21:00)
[2021-08-14] MEDS: SODIUM CHLORIDE 0.9% 1,000 ML IV SCH (21:28)
[2021-08-14] MEDS ORDERED: TEMAZEPAM 15 MG CAP PO PRN (21:48)
[2021-08-15 04:14] LABS: HCT 32.4 % (34.0-46.0); HGB 10.3 gm/dL (11.4-16.0); Hypochromasia Slight; MCV 100.1 fL (80.0-100.0); Mean Platelet Volume 9.5; Platelet Count 107 k/uL (150-450); RBC 3.24 m/uL (3.80-5.40); RDW 14.3 % (11.5-15.5); WBC 6.6 k/uL (3.8-10.6)
[2021-08-15 05:09] LABS: Calcium 8.1 mg/dL (8.4-10.2); Potassium 4.7 mmol/L (3.5-5.1)
[2021-08-15 05:18] LABS: Prothrombin Time 10.8 sec (9.0-12.0)
[2021-08-15 06:34] LABS: Glucose,Whole Blood 72 mg/dL (75-99)
[2021-08-15] MEDS: INSULIN ASPART (NovoLOG) 100 UNIT/ML VIAL SQ SCH ×3 (06:37→17:27)
[2021-08-15] MEDS ORDERED: ACETAMINOPHEN TAB 325 MG TAB PO PRN (06:38)
[2021-08-15] MEDS: carvediloL 3.125 MG TAB PO SCH ×2 (07:02→17:27)
[2021-08-15] MEDS: HYDROmorphone 0.5 MG/0.5 ML SYRINGE IVP PRN ×2 (07:02→12:20)
[2021-08-15] MEDS: hydrALAZINE HCL 25 MG TAB PO SCH (07:40)
[2021-08-15 08:15] LABS: Eosinophils # (M) 0.66 k/uL (0-0.7); Lymphocytes # (M) 1.32 k/uL (1.0-4.8); Monocytes # (M) 0.66 k/uL (0-1.0); Neutrophils # (M) 3.96 k/uL (1.3-7.7); Neutrophils % (M) 60 %; Nucleated Red Blood Cells 0 /100 WBC (0-0); Total Cells Counted 100
[2021-08-15] MEDS ORDERED: SERTRALINE 50 MG TAB PO SCH (09:00)
[2021-08-15] MEDS ORDERED: ATORVASTATIN 40 MG TAB PO SCH (09:00)
[2021-08-15] MEDS ORDERED: ASPIRIN 81 MG PO SCH (09:00)
[2021-08-15] MEDS ORDERED: MIRTAZAPINE 15 MG TAB PO SCH (09:00)
[2021-08-15] MEDS ORDERED: APIXABAN 2.5 MG TABLET PO SCH (09:00)
[2021-08-15] MEDS ORDERED: TORSEMIDE 20 MG TAB PO SCH (09:00)
[2021-08-15] MEDS ORDERED: CLOPIDOGREL 75 MG TAB PO SCH (09:00)
[2021-08-15] MEDS ORDERED: allopurinoL 100 MG TAB PO SCH (09:00)
[2021-08-15] MEDS: SODIUM CHLORIDE 0.9% 1,000 ML IV SCH (09:27)
--- NOTE | 2021-08-15 09:46 | PN ---
PROGRESS NOTE Mrs. Avery this morning is comfortable. Complains of some discomfort in both feet, more on the right foot. She has not had any chest pain. She is quite comfortable from that point of view. EKG revealed a ventricular paced rhythm. Vitals are stable. Blood pressure is 150/70. Pulse rate is 60 per minute, paced. There is JVD of 1 cm. No carotid bruit. S1, S2 with a short systolic murmur at the base is audible. Lungs are clear. Abdomen is soft. Lower extremities reveal that the right foot, which was cooler yesterday, is now warm, but I cannot feel or hear a dorsalis pedis pulse, and on the left side dorsalis pedis is obtained by Doppler only. Patient does have peripheral vascular disease and had Impella yesterday with a 14-Fijian sheath. She was seen by Dr. Henao today. Dr. Esquivel, his associate, will see the patient and will make a decision whether we should do conservative management or consider angiography. I will ask Dr. Gaytan, the hospitalist, to follow her and will place her on his service. I discussed this with the patient. From a cardiac standpoint, she is stable. I will await further input from Dr. Esquivel. I have held hydralazine and Coreg yesterday, but I will resume Coreg at 3.125 mg b.i.d. I discussed my thoughts in detail with the patient and I will also speak to Dr. Esquivel. MMLEVL / SPENCERN: [id number] /
--- NOTE | 2021-08-15 10:15 | P.NPCON ---
History of Present Illness - Reason for Consult end stage renal disease - History of Present Illness Reason for consultation: End-stage renal disease History of present illness: Patient is a 81-year-old female seen in renal consultation for end-stage renal disease. She is maintained on hemodialysis on Friday schedule via right chest permacath. Patient underwent cardiac catheterization with 2 stents placed to the LAD. The stents were placed on 08/14/2021. She is currently resting in bed. Blood pressure stable. Denies chest pain or shortness of breath. She is on 3 L nasal cannula. Last hemodialysis was on Friday. No fever or chills. No vomiting or diarrhea. She also had Impella device placed yesterday. She is complaining of discomfort in her feet. Vascular surgery is following. Patient has history of peripheral arterial disease. Vital signs are stable. General: The patient appeared well nourished and normally developed. HEENT: On nasal cannula. LUNGS: Breath sounds decreased. HEART: Rate and Rhythm are regular. ABDOMEN: Soft, no distention. EXTREMITITES: No edema. Past Medical History Past Medical History: Heart Failure, COPD, Diabetes Mellitus, Hyperlipidemia, Hypertension, Myocardial Infarction ([place]), Musculoskeletal Disorder, Renal Disease, Sleep Apnea/CPAP/BIPAP, Thyroid Disorder Additional Past Medical History / Comment(s): Hemodialysis MWF from 12:30 to 4:30, CHF with diastolic heart failure, hypertension, chronic kidney disease stage III, coronary artery disease with previous bypass surgery, history of pacemaker insertion 2014, obstructive sleep apnea, thyroid nodules, , history of smoking in the order of [id number],no cpap Last Myocardial Infarction Date:: 05/26/21 History of Any Multi-Drug Resistant Organisms: ESBL Date of last positivie culture/infection: 10/18/19 MDRO Source:: ESBL URINE Past Surgical History: Appendectomy, Back Surgery, Bariatric Surgery, Coronary Bypass/CABG, Heart Catheterization, Hysterectomy, Pacemaker Additional Past Surgical History / Comment(s): LAP BAND insertion and removal, CATARACT LEFT EYE, NEUROMA ON FOOT, KNEE ARTHROSCOPY, PACEMAKER ([facility] 04/18/2015) Partial thyroidectomy 1999 Past Anesthesia/Blood Transfusion Reactions: No Reported Reaction Type of Cardiac Device: Permanent Pacemaker Device Placement Date:: 04/18/2015 [facility] Smoking Status: Former smoker - Past Family History Son(s) Family Medical History: Cancer Additional Family Medical History / Comment(s): MELANOMA- Brother(s) Family Medical History: Cancer Father History Unknown: Yes Family Medical History: Cancer Mother Family Medical History: CVA/TIA Medications and Allergies Home Medications Medication Instructions Recorded Confirmed Type Simvastatin [Zocor] 5 mg PO HS 11/29/17 08/14/21 History Mirtazapine 15 mg PO DAILY 11/17/20 08/14/21 History Temazepam 30 mg PO HS PRN 11/24/20 08/14/21 History Allopurinol [Zyloprim] 100 mg PO DAILY 05/01/21 08/14/21 History Ergocalciferol [Vitamin D2 (1250 50,000 unit PO BONDS 05/01/21 08/14/21 History Mcg = 61981 Iu)] Insulin Detemir (Levemir) [Levemir] 25 unit SQ HS 05/01/21 08/14/21 History Insulin Lispro [humaLOG Kwikpen] See Protocol SQ AC-TID PRN 05/01/21 08/14/21 History Sertraline [Zoloft] 50 mg PO DAILY 05/01/21 08/14/21 History carvediloL [Coreg] 6.25 mg PO BID-W/MEALS 05/08/21 08/14/21 History Torsemide [Demadex] 40 mg PO DAILY 30 Days #30 tablet 05/23/21 08/14/21 Rx hydrALAZINE HCL [Apresoline] 25 mg PO TID 05/26/21 08/14/21 History Apixaban [Eliquis] 2.5 mg PO BID 08/14/21 08/14/21 History Calcium Acetate [Phoslo] 667 mg PO TID 08/14/21 08/14/21 History Allergies Allergy/AdvReac Type Severity Reaction Status Date / Time No Known Allergies Allergy Verified 08/14/21 12:36 Physical Exam Vitals: Vital Signs Temp Pulse Resp BP Pulse Ox 08/15/21 09:00 60 14 158/63 97 08/15/21 08:00 98 F 60 12 148/56 97 08/15/21 07:00 60 16 151/60 99 08/15/21 06:00 60 18 138/52 98 08/15/21 05:00 60 16 148/55 96 08/15/21 04:00 97.9 F 60 12 149/57 96 08/15/21 03:00 60 20 149/62 98 08/15/21 02:00 60 11 L 133/55 97 08/15/21 01:00 60 18 134/48 96 08/15/21 00:00 98.0 F 60 16 149/53 97 08/14/21 23:00 60 16 144/50 96 08/14/21 22:01 60 18 89/62 97 08/14/21 22:00 60 13 89/62 98 08/14/21 21:30 61 16 140/69 97 08/14/21 21:00 28 H 104/51 08/14/21 20:30 60 14 96 08/14/21 20:00 97.7 F 61 14 123/49 99 08/14/21 19:30 60 11 L 123/47 99 08/14/21 19:00 61 12 113/43 98 08/14/21 18:30 60 12 98 08/14/21 18:00 60 12 103/45 98 08/14/21 17:30 60 16 134/60 97 08/14/21 17:00 60 16 128/47 95 08/14/21 16:30 61 16 144/57 98 08/14/21 16:15 60 16 144/57 99 08/14/21 16:00 97.6 F 60 16 96 08/14/21 15:45 60 16 133/51 99 08/14/21 15:30 60 16 95 08/14/21 15:15 60 16 138/61 99 08/14/21 15:00 60 16 135/54 98 08/14/21 14:45 60 16 145/59 97 08/14/21 14:30 60 16 110/54 98 08/14/21 14:15 60 16 112/44 97 08/14/21 14:00 60 16 122/51 97 08/14/21 13:45 97.9 F 61 16 123/60 97 08/14/21 13:39 67 Intake and Output 08/14/21 08/15/21 08/15/21 22:59 06:59 14:59 Intake Total 275 600 225 Output Total 0 20 0 Balance 275 580 225 Intake: IV 115 600 150 Sodium Chloride 0.9% 1, 115 600 150 000 ml @ 10 mls/hr IV . Q24H [facility] Rx#:[id number] Intake, IV Titration 160 75 Amount Sodium Chloride 0.9% 1, 10 000 ml @ 0 mls/hr IV .[facility] Rx#:[id number] Sodium Chloride 0.9% 1, 75 000 ml @ 10 mls/hr IV . Q24H [facility] Rx#:[id number] Sodium Chloride 0.9% 1, 150 000 ml @ 50 mls/hr IV . Q20H [facility] Rx#:[id number] Output: Urine 0 20 0 Other: Voiding Method External Catheter External Catheter Weight 92 kg Results - Lab Results Most recent lab results Calcium 8.1 mg/dL (8.4-10.2) L 08/15/21 03:38 08/15/21 03:38 08/15/21 03:38 Assessment and Plan Plan: Assessment: 1. End-stage renal disease may 2 on hemodialysis on Friday schedule via right chest permacath. 2. Coronary artery disease status post 2 stents placed to the LAD on 08/14/2021. 3. Peripheral arterial disease. Vascular surgery following. 4. Diabetes mellitus. 5. Hypertension with chronic kidney disease. Plan: Hemodialysis today. Hep-Lock IV fluids. Thank you for the consultation. I will continue to follow the patient with you during her hospital stay.
--- NOTE | 2021-08-15 10:45 | P.PN ---
Subjective Progress Note Date: 08/15/21 Examined as a follow-up to be in the ICU. She is status post day #1 for patella heart pump placement from right femoral approach, or pleural atherectomy of proximal and mid LAD and percutaneous transluminal coronary angioplasty and stenting of proximal and mid LAD. Vascular surgery was consulted for his acute ischemic changes status post postop placement to the right lower extremity. The FemoStop has been removed today the patient has increased color and warmth to the right lower extremity. She is able to move her right leg foot and toes. She is denying any pain to the right lower extremity. She has not been up and ambulating yet. Objective - Vital Signs Vital signs: Vital Signs Temp 97.9 F 08/15/21 04:00 Pulse 60 08/15/21 07:00 Resp 16 08/15/21 07:00 BP 151/60 08/15/21 07:00 Pulse Ox 99 08/15/21 07:00 Intake & Output 08/14/21 08/15/21 08/15/21 18:59 06:59 18:59 Intake Total 600 725 75 Output Total 0 20 0 Balance 600 705 75 Weight 89.4 kg 92 kg Intake: IV 450 715 75 Sodium Chloride 0.9% 1, 715 75 000 ml @ 75 mls/hr IV . [id number] [facility] Rx#:[id number] Intake, IV Titration 150 10 Amount Sodium Chloride 0.9% 1, 10 000 ml @ 0 mls/hr IV .[facility] Rx#:[id number] Sodium Chloride 0.9% 1, 150 000 ml @ 50 mls/hr IV . Q20H [facility] Rx#:[id number] Output: Urine 0 20 0 Other: Voiding Method External Catheter External Catheter - Exam General appearance: The patient is alert, oriented, in no acute distress. HET: Head is normocephalic and atraumatic. Pupils are equal and reactive. Oropharynx is clear without lesions. Neck: Supple without lymphadenopathy. Trachea midline. Extremities: Right lower extremity warm to the touch, good capillary refill. Right groin access site without any hematoma or bruising. Palpable femoral pulse. Doppler signals obtained from the femoral, popliteal, and posterior tibialis. Posterior tibialis Doppler signal is faint, monophasic. Unable to obtain dorsalis pedis Doppler signal. Patient is able to move her right lower extremity foot and toes. She is denying any pain with palpation. Left lower extremity with palpable left femoral pulse. Positive Doppler signal for popliteal, dorsalis pedis and posterior tibialis. Neurological: No focal deficits. Strength and sensation are grossly intact. - Labs CBC & Chem 7: 08/15/21 03:38 08/15/21 03:38 Labs: Abnormal Lab Results - Last 24 Hours (Table) 08/14/21 08/14/21 08/14/21 Range/Units 09:15 09:15 09:42 RBC (3.80-5.40) m/uL Hgb (11.4-16.0) gm/dL Hct (34.0-46.0) % MCV (80.0-100.0) fL Plt Count 148 L (150-450) k/uL APTT (22.0-30.0) sec Sodium (137-145) mmol/L Chloride 97 L (98-107) mmol/L BUN 55 H (7-17) mg/dL Creatinine 3.60 H (0.52-1.04) mg/dL Glucose 122 H (74-99) mg/dL POC Glucose (mg/dL) 105 H (75-99) mg/dL Calcium (8.4-10.2) mg/dL 08/14/21 08/14/21 08/14/21 Range/Units 13:42 15:45 16:49 RBC (3.80-5.40) m/uL Hgb (11.4-16.0) gm/dL Hct (34.0-46.0) % MCV (80.0-100.0) fL Plt Count (150-450) k/uL APTT 31.2 H (22.0-30.0) sec Sodium (137-145) mmol/L Chloride (98-107) mmol/L BUN (7-17) mg/dL Creatinine (0.52-1.04) mg/dL Glucose (74-99) mg/dL POC Glucose (mg/dL) 107 H 107 H (75-99) mg/dL Calcium (8.4-10.2) mg/dL 08/14/21 08/14/21 08/14/21 Range/Units 18:37 20:41 21:33 RBC 3.62 L (3.80-5.40) m/uL Hgb 11.3 L (11.4-16.0) gm/dL Hct (34.0-46.0) % MCV (80.0-100.0) fL Plt Count 111 L (150-450) k/uL APTT 43.6 H (22.0-30.0) sec Sodium (137-145) mmol/L Chloride (98-107) mmol/L BUN (7-17) mg/dL Creatinine (0.52-1.04) mg/dL Glucose (74-99) mg/dL POC Glucose (mg/dL) 141 H (75-99) mg/dL Calcium (8.4-10.2) mg/dL 08/15/21 08/15/21 08/15/21 Range/Units 03:38 03:38 03:38 RBC 3.24 L (3.80-5.40) m/uL Hgb 10.3 L (11.4-16.0) gm/dL Hct 32.4 L (34.0-46.0) % MCV 100.1 H (80.0-100.0) fL Plt Count 107 L (150-450) k/uL APTT 54.0 H (22.0-30.0) sec Sodium 133 L (137-145) mmol/L Chloride (98-107) mmol/L BUN 63 H (7-17) mg/dL Creatinine 4.04 H (0.52-1.04) mg/dL Glucose 118 H (74-99) mg/dL POC Glucose (mg/dL) (75-99) mg/dL Calcium 8.1 L (8.4-10.2) mg/dL 08/15/21 Range/Units 06:33 RBC (3.80-5.40) m/uL Hgb (11.4-16.0) gm/dL Hct (34.0-46.0) % MCV (80.0-100.0) fL Plt Count (150-450) k/uL APTT (22.0-30.0) sec Sodium (137-145) mmol/L Chloride (98-107) mmol/L BUN (7-17) mg/dL Creatinine (0.52-1.04) mg/dL Glucose (74-99) mg/dL POC Glucose (mg/dL) 72 L (75-99) mg/dL Calcium (8.4-10.2) mg/dL Assessment and Plan Assessment: 1. Ischemic changes to the right lower extremity status post cardiac stenting and Impala support, likely related to Fem-stop pressure. Resolved 2. History of coronary artery disease 3. Diabetes mellitus 4. End-stage renal disease on hemodialysis 5. Current smoker 6. Diabetic neuropathy Plan: 1. Continue symptomatic and supportive care 2. No planned intervention from vascular surgery at this time 4. Recommend Smoking cessation 3. Patient is cleared for discharge from vascular surgery. Patient will r equire outpatient follow-up and further workup for peripheral arterial disease 4. Script given to start on Gabapentin 300mg BID for neuropathy Thank you for this consultation and allowing us take part in the plan of care of your patient during her hospital stay. The impression and plan of care has been dictated as directed. Dr. Esquivel I performed a history and examination of this patient, discussed the same with the dictator. I agree with the dictator's note ,documented as a scribe. Any additional findings or plans will be noted.
[2021-08-15 10:54] LABS: Glucose,Whole Blood 78 mg/dL (75-99)
--- NOTE | 2021-08-15 12:17 | P.CONS ---
History of Present Illness - Reason for Consult Consult date: 08/15/21 Medical management Requesting physician: Carmella Cooper - Chief Complaint Coronary artery disease - History of Present Illness This is a 81-year-old female patient of Dr. Ward. Patient presented to the hospital for an elective angioplasty on 08/14/[address] KI Cooper. Patient has known history of coronary artery disease and underwent placement of 2 stents the LAD. During procedure patient also had a patella heart pump placement. Additional medical history includes end-stage renal disease maintained on hemodialysis Friday, CHF, COPD, diabetes mellitus, hyperlipidemia, hypertension, renal disease and thyroid disorder. Patient also had pacemaker placement in 2014. Patient also has nicotine dependence history quitting in July 2021. Postprocedure patient did develop some acute ischemic changes to right lower extremity with concerns of decreased pulse to right lower extremity. Patient was evaluated by vascular surgery and femstop eventually removed. Patient also placed on low-dose IV heparin. issues to right lower extremity have resolved. At this time patient is resting comfortably in ICU. Patient currently receiving hemodialysis. Patient denies chest pain or shortness of breath. Patient denies nausea vomiting or diarrhea. Patient denies any urinary burning or frequency. Review of Systems Please refer to HPI otherwise unremarkable Past Medical History Past Medical History: Heart Failure, COPD, Diabetes Mellitus, Hyperlipidemia, Hypertension, Myocardial Infarction ([place]), Musculoskeletal Disorder, Renal Disease, Sleep Apnea/CPAP/BIPAP, Thyroid Disorder Additional Past Medical History / Comment(s): Hemodialysis MWF from 12:30 to 4:30, CHF with diastolic heart failure, hypertension, chronic kidney disease stage III, coronary artery disease with previous bypass surgery, history of pacemaker insertion 2014, obstructive sleep apnea, thyroid nodules, , history of smoking in the order of [id number],no cpap Last Myocardial Infarction Date:: 05/26/21 History of Any Multi-Drug Resistant Organisms: ESBL Year Discovered:: 10/18/19 MDRO Source:: ESBL URINE Past Surgical History: Appendectomy, Back Surgery, Bariatric Surgery, Coronary Bypass/CABG, Heart Catheterization, Hysterectomy, Pacemaker Additional Past Surgical History / Comment(s): LAP BAND insertion and removal, CATARACT LEFT EYE, NEUROMA ON FOOT, KNEE ARTHROSCOPY, PACEMAKER ([facility] 04/18/2015) Partial thyroidectomy 1999 Past Anesthesia/Blood Transfusion Reactions: No Reported Reaction Type of Cardiac Device: Permanent Pacemaker Device Placement Date:: 04/18/2015 [facility] Smoking Status: Former smoker - Past Family History Son(s) Family Medical History: Cancer Additional Family Medical History / Comment(s): MELANOMA- Brother(s) Family Medical History: Cancer Father History Unknown: Yes Family Medical History: Cancer Mother Family Medical History: CVA/TIA Medications and Allergies Home Medications Medication Instructions Recorded Confirmed Type Simvastatin [Zocor] 5 mg PO HS 11/29/17 08/14/21 History Mirtazapine 15 mg PO DAILY 11/17/20 08/14/21 History Temazepam 30 mg PO HS PRN 11/24/20 08/14/21 History Allopurinol [Zyloprim] 100 mg PO DAILY 05/01/21 08/14/21 History Ergocalciferol [Vitamin D2 (1250 50,000 unit PO BONDS 05/01/21 08/14/21 History Mcg = 74603 Iu)] Insulin Detemir (Levemir) [Levemir] 25 unit SQ HS 05/01/21 08/14/21 History Insulin Lispro [humaLOG Kwikpen] See Protocol SQ AC-TID PRN 05/01/21 08/14/21 History Sertraline [Zoloft] 50 mg PO DAILY 05/01/21 08/14/21 History carvediloL [Coreg] 6.25 mg PO BID-W/MEALS 05/08/21 08/14/21 History Torsemide [Demadex] 40 mg PO DAILY 30 Days #30 tablet 05/23/21 08/14/21 Rx hydrALAZINE HCL [Apresoline] 25 mg PO TID 05/26/21 08/14/21 History Apixaban [Eliquis] 2.5 mg PO BID 08/14/21 08/14/21 History Calcium Acetate [Phoslo] 667 mg PO TID 08/14/21 08/14/21 History Allergies Allergy/AdvReac Type Severity Reaction Status Date / Time No Known Allergies Allergy Verified 08/14/21 12:36 Physical Exam Vitals: Vital Signs Temp Pulse Resp BP Pulse Ox 08/15/21 11:00 60 14 126/53 95 08/15/21 10:00 61 12 141/61 98 08/15/21 09:00 60 14 158/63 97 08/15/21 08:00 98 F 60 12 148/56 97 08/15/21 07:00 60 16 151/60 99 08/15/21 06:00 60 18 138/52 98 08/15/21 05:00 60 16 148/55 96 08/15/21 04:00 97.9 F 60 12 149/57 96 08/15/21 03:00 60 20 149/62 98 08/15/21 02:00 60 11 L 133/55 97 08/15/21 01:00 60 18 134/48 96 08/15/21 00:00 98.0 F 60 16 149/53 97 08/14/21 23:00 60 16 144/50 96 08/14/21 22:01 60 18 89/62 97 08/14/21 22:00 60 13 89/62 98 08/14/21 21:30 61 16 140/69 97 08/14/21 21:00 28 H 104/51 08/14/21 20:30 60 14 96 08/14/21 20:00 97.7 F 61 14 123/49 99 08/14/21 19:30 60 11 L 123/47 99 08/14/21 19:00 61 12 113/43 98 08/14/21 18:30 60 12 98 08/14/21 18:00 60 12 103/45 98 08/14/21 17:30 60 16 134/60 97 08/14/21 17:00 60 16 128/47 95 08/14/21 16:30 61 16 144/57 98 08/14/21 16:15 60 16 144/57 99 08/14/21 16:00 97.6 F 60 16 96 08/14/21 15:45 60 16 133/51 99 08/14/21 15:30 60 16 95 08/14/21 15:15 60 16 138/61 99 08/14/21 15:00 60 16 135/54 98 08/14/21 14:45 60 16 145/59 97 08/14/21 14:30 60 16 110/54 98 08/14/21 14:15 60 16 112/44 97 08/14/21 14:00 60 16 122/51 97 08/14/21 13:45 97.9 F 61 16 123/60 97 08/14/21 13:39 67 Intake and Output 08/14/21 08/15/21 08/15/21 22:59 06:59 14:59 Intake Total 275 600 245 Output Total 0 20 0 Balance 275 580 245 Intake: IV 115 600 170 Sodium Chloride 0.9% 1, 115 600 170 000 ml @ 10 mls/hr IV . Q24H [facility] Rx#:[id number] Intake, IV Titration 160 75 Amount Sodium Chloride 0.9% 1, 10 000 ml @ 0 mls/hr IV .[facility] Rx#:[id number] Sodium Chloride 0.9% 1, 75 000 ml @ 10 mls/hr IV . Q24H [facility] Rx#:[id number] Sodium Chloride 0.9% 1, 150 000 ml @ 50 mls/hr IV . Q20H [facility] Rx#:[id number] Output: Urine 0 20 0 Other: Voiding Method External Catheter External Catheter Weight 92 kg Head normocephalic Neck supple Lungs clear to auscultation bilaterally no wheezing or crackles Heart regular rate and rhythm S1-S2, no rub or gallop Abdomen is soft nontender nondistended positive bowel sounds no hepatosplenomegaly Extremities no edema Neuro alert and orientated to 3 Results CBC & Chem 7: 08/15/21 03:38 08/15/21 03:38 Labs: Abnormal Lab Results - Last 24 Hours (Table) 08/14/21 08/14/21 08/14/21 Range/Units 13:42 15:45 16:49 RBC (3.80-5.40) m/uL Hgb (11.4-16.0) gm/dL Hct (34.0-46.0) % MCV (80.0-100.0) fL Plt Count (150-450) k/uL APTT 31.2 H (22.0-30.0) sec Sodium (137-145) mmol/L BUN (7-17) mg/dL Creatinine (0.52-1.04) mg/dL Glucose (74-99) mg/dL POC Glucose (mg/dL) 107 H 107 H (75-99) mg/dL Calcium (8.4-10.2) mg/dL 08/14/21 08/14/21 08/14/21 Range/Units 18:37 20:41 21:33 RBC 3.62 L (3.80-5.40) m/uL Hgb 11.3 L (11.4-16.0) gm/dL Hct (34.0-46.0) % MCV (80.0-100.0) fL Plt Count 111 L (150-450) k/uL APTT 43.6 H (22.0-30.0) sec Sodium (137-145) mmol/L BUN (7-17) mg/dL Creatinine (0.52-1.04) mg/dL Glucose (74-99) mg/dL POC Glucose (mg/dL) 141 H (75-99) mg/dL Calcium (8.4-10.2) mg/dL 08/15/21 08/15/21 08/15/21 Range/Units 03:38 03:38 03:38 RBC 3.24 L (3.80-5.40) m/uL Hgb 10.3 L (11.4-16.0) gm/dL Hct 32.4 L (34.0-46.0) % MCV 100.1 H (80.0-100.0) fL Plt Count 107 L (150-450) k/uL APTT 54.0 H (22.0-30.0) sec Sodium 133 L (137-145) mmol/L BUN 63 H (7-17) mg/dL Creatinine 4.04 H (0.52-1.04) mg/dL Glucose 118 H (74-99) mg/dL POC Glucose (mg/dL) (75-99) mg/dL Calcium 8.1 L (8.4-10.2) mg/dL 08/15/21 Range/Units 06:33 RBC (3.80-5.40) m/uL Hgb (11.4-16.0) gm/dL Hct (34.0-46.0) % MCV (80.0-100.0) fL Plt Count (150-450) k/uL APTT (22.0-30.0) sec Sodium (137-145) mmol/L BUN (7-17) mg/dL Creatinine (0.52-1.04) mg/dL Glucose (74-99) mg/dL POC Glucose (mg/dL) 72 L (75-99) mg/dL Calcium (8.4-10.2) mg/dL Assessment and Plan Assessment: 1. Known coronary artery disease status post 2 stent placement on 08/14/[address] KI Cooper 2. Ischemic changes of right lower extremity post cardiac procedure. Patient was evaluated by vascular surgery and this was likely related to Fem-Stop placement. 3. End-stage renal disease. Patient maintained on hemodialysis Friday 4. Nicotine dependence. Patient has 50+ year smoking history. Patient reports she quit July 2021 5. History of diabetes mellitus type 2 Thank you for this consultation we will continue to follow patient closely throughout stay Time with Patient: Greater than 30 (Greater than 60% of the total time spent in counseling and coordination of care)
[2021-08-15 13:33] VITALS: BMI 32.7
[2021-08-15] MEDS ORDERED: GABAPENTIN 300 MG CAP PO STA (13:51)
[2021-08-15] MEDS ORDERED: APIXABAN 2.5 MG TABLET PO STA (16:53)
[2021-08-15 16:57] VITALS: TEMP 97.4
[2021-08-15 17:42] VITALS: BP 156/64; PULSE 63; RESP 14
--- NOTE | 2021-08-15 17:43 | P.DS ---
Providers Date of admission: 08/14/21 09:05 Expected date of discharge: 08/15/21 Attending physician: Carmella Cooper Consults: 08/14/21 13:24 Consult Physician Routine Consulting Provider: [facility] Consult Reason/Comments: Post Interventional patient Do you want consulting provider notified?: Already Contacted 08/14/21 13:47 Consult Physician Routine Consulting Provider: Usmna Guillen Consult Reason/Comments: hemodialysis Do you want consulting provider notified?: Already Contacted 08/14/21 14:47 Consult Physician Urgent Consulting Provider: Socrates Henao Consult Reason/Comments: decreased circulation to right leg Do you want consulting provider notified?: Already Contacted 08/15/21 06:56 Consult Physician Routine Consulting Provider: Raffaele Gaytan Consult Reason/Comments: Admit Do you want consulting provider notified?: Yes Primary care physician: Carissa Ward Hospital Course: Diagnosis On Discharge: 1. Known coronary artery disease status post 2 stent placement on 08/14/[address] KI Cooper 2. Ischemic changes of right lower extremity post cardiac procedure. Patient was evaluated by vascular surgery and this was likely related to Fem-Stop placement. 3. End-stage renal disease. Patient maintained on hemodialysis Friday 4. Nicotine dependence. Patient has 50+ year smoking history. Patient reports she quit July 2021 5. History of diabetes mellitus type 2 Hospital course: This is a 81-year-old female patient of Dr. Ward. Patient presented to the hospital for an elective angioplasty on 08/14/[address] KI Cooper. Patient has known history of coronary artery disease and underwent placement of 2 stents the LAD. During procedure patient also had a patella heart pump placement. Additional medical history includes end-stage renal disease maintained on hemodialysis Friday, CHF, COPD, diabetes mellitus, hyperlipidemia, hypertension, renal disease and thyroid disorder. Patient also had pacemaker placement in 2014. Patient also has nicotine dependence history quitting in July 2021. Postprocedure patient did develop some acute ischemic changes to right lower extremity with concerns of decreased pulse to right lower extremity. Patient was evaluated by vascular surgery and femstop eventually removed. Patient also placed on low-dose IV heparin. issues to right lower extremity have resolved. At this time patient is resting comfortably in ICU. Patient currently receiving hemodialysis. Patient denies chest pain or shortness of breath. Patient denies nausea vomiting or diarrhea. Patient denies any urinary burning or frequency. On 08/15/2021 Patient was seen by cardiology and vascular surgery and was cleared for discharge. She was evaluated again this afternoon and was eager to go home. She was given prescription for Gabapentin and norco. She will follow up with her primary care physician Dr Ward in 1-2 days Plan - Discharge Summary Discharge Rx Participant: No New Discharge Prescriptions: New Gabapentin [Neurontin] 300 mg PO BID #30 cap Aspirin 81 mg PO DAILY tab Atorvastatin [Lipitor] 40 mg PO DAILY tab Clopidogrel [Plavix] 75 mg PO DAILY tab HYDROcodone/APAP 5-325MG [[place] 5-325] 1 tab PO Q6HR PRN 3 Days #12 tab PRN Reason: Pain Continue Mirtazapine 15 mg PO DAILY Sertraline [Zoloft] 50 mg PO DAILY Insulin Detemir (Levemir) [Levemir] 25 unit SQ HS Torsemide [Demadex] 40 mg PO DAILY 30 Days #30 tablet Calcium Acetate [PhosLo] 667 mg PO TID Temazepam 30 mg PO HS PRN PRN Reason: SLEEP Allopurinol [Zyloprim] 100 mg PO DAILY Ergocalciferol [Vitamin D2 (1250 Mcg = 70810 Iu)] 50,000 unit PO BONDS Insulin Lispro [humaLOG Kwikpen] See Protocol SQ AC-TID PRN PRN Reason: HIGH BLOOD SUGAR carvediloL [Coreg] 6.25 mg PO BID-W/MEALS Apixaban [Eliquis] 2.5 mg PO BID Discontinued Simvastatin [Zocor] 5 mg PO HS hydrALAZINE HCL [Apresoline] 25 mg PO TID Discharge Medication List Mirtazapine 15 mg PO DAILY 11/17/20 [History] Temazepam 30 mg PO HS PRN 11/24/20 [History] Allopurinol [Zyloprim] 100 mg PO DAILY 05/01/21 [History] Ergocalciferol [Vitamin D2 (1250 Mcg = 69279 Iu)] 50,000 unit PO BONDS 05/01/21 [History] Insulin Detemir (Levemir) [Levemir] 25 unit SQ HS 05/01/21 [History] Insulin Lispro [humaLOG Kwikpen] See Protocol SQ AC-TID PRN 05/01/21 [History] Sertraline [Zoloft] 50 mg PO DAILY 05/01/21 [History] carvediloL [Coreg] 6.25 mg PO BID-W/MEALS 05/08/21 [History] Torsemide [Demadex] 40 mg PO DAILY 30 Days #30 tablet 05/23/21 [Rx] Apixaban [Eliquis] 2.5 mg PO BID 08/14/21 [History] Calcium Acetate [PhosLo] 667 mg PO TID 08/14/21 [History] Aspirin 81 mg PO DAILY tab 08/15/21 [Rx] Atorvastatin [Lipitor] 40 mg PO DAILY tab 08/15/21 [Rx] Clopidogrel [Plavix] 75 mg PO DAILY tab 08/15/21 [Rx] Gabapentin [Neurontin] 300 mg PO BID #30 cap 08/15/21 [Rx] HYDROcodone/APAP 5-325MG [[place] 5-325] 1 tab PO Q6HR PRN 3 Days #12 tab 08/15/21 [Rx] Follow up Appointment(s)/Referral(s): Carmella Cooper MD [STAFF PHYSICIAN] - 08/23/21 2:45 pm Gertrude Esquivel DO [STAFF PHYSICIAN] - 2 Weeks (1-2 weeks) Patient Instructions/Handouts: Heart Catheterization (GEN), Coronary Intravascular Stent Placement (GEN) Discharge/Stand Alone Forms: Personal Director [employer] Discharge Disposition: HOME SELF-CARE
[2021-08-15] MEDS ORDERED: GABAPENTIN 300 MG CAP PO SCH (21:00)
== END 2021-08-15 18:35 | disposition home or self-care (01) | DRG 216 ==
LOC: 2ORMAIN 09:05 → EDSTATUS 10:30 → 2SICU 13:40
PROVIDERS: ADMIT Internal Medicine Interventional Cardiology; ATTEND Internal Medicine Interventional Cardiology
PROC: 02C03Z7 Extirpation of Matter from Coronary Artery, One Artery, Orbital Atherectomy Technique, Percutaneous Approach (ICD-10-PCS; 2021-08-14)
PROC: 02HA3RJ Insertion of Short-term External Heart Assist System into Heart, Intraoperative, Percutaneous Approach (ICD-10-PCS; 2021-08-14)
PROC: 5A0221D Assistance with Cardiac Output using Impeller Pump, Continuous (ICD-10-PCS; principal; 2021-08-14 10:30)
PROC: B2101ZZ Fluoroscopy of Single Coronary Artery using Low Osmolar Contrast (ICD-10-PCS; 2021-08-14 10:30)
PROC: 027035Z Dilation of Coronary Artery, One Artery with Two Drug-eluting Intraluminal Devices, Percutaneous Approach (ICD-10-PCS; 2021-08-14 10:30)
PROC: 5A1D70Z Performance of Urinary Filtration, Intermittent, Less than 6 Hours Per Day (ICD-10-PCS; 2021-08-15)
DX: I25.10 Atherosclerotic heart disease of native coronary artery without angina pectoris (principal); N18.6 End stage renal disease; I50.32 Chronic diastolic (congestive) heart failure; I13.2 Hypertensive heart and chronic kidney disease with heart failure and with stage 5 chronic kidney disease, or end stage renal disease; I25.2 Old myocardial infarction; I25.5 Ischemic cardiomyopathy; I25.82 Chronic total occlusion of coronary artery; J44.9 Chronic obstructive pulmonary disease, unspecified; Z79.01 Long term (current) use of anticoagulants; Z79.4 Long term (current) use of insulin; Z79.899 Other long term (current) drug therapy; Z80.8 Family history of malignant neoplasm of other organs or systems; Z90.710 Acquired absence of both cervix and uterus; Z95.0 Presence of cardiac pacemaker; Z95.1 Presence of aortocoronary bypass graft; Z99.2 Dependence on renal dialysis; Z20.822 Contact with and (suspected) exposure to COVID-19; E11.22 Type 2 diabetes mellitus with diabetic chronic kidney disease; E11.40 Type 2 diabetes mellitus with diabetic neuropathy, unspecified; E11.51 Type 2 diabetes mellitus with diabetic peripheral angiopathy without gangrene; E78.5 Hyperlipidemia, unspecified; F17.200 Nicotine dependence, unspecified, uncomplicated
CPT/HCPCS: 80048; 85025; 85027; 85610; 85730; 87635; 90935; 92933

== ENCOUNTER 2021-08-18 14:15 | Inpatient (IN) | payer MEDICARE, BC ==
[2021-08-18] MEDS ORDERED: HEPARIN SODIUM 1,000 UN/ML (10ML VL) IV PRN (15:47)
[2021-08-18] MEDS ORDERED: HEPARIN SODIUM 1,000 UN/ML (10ML VL) IV ONE (15:47)
[2021-08-18] MEDS ORDERED: HEPARIN SOD,PORK IN 0.45% NACL 25,000 UNIT in 0.45% NACL 1 250ML.BAG IV SCH (16:00)
--- NOTE | 2021-08-18 16:02 | ED ---
General Adult HPI - General Chief complaint: Extremity Injury, Lower Stated complaint: Unable to use R leg Time Seen by Provider: 08/18/21 15:20 Source: patient Mode of arrival: ambulatory Limitations: no limitations - History of Present Illness Initial comments: Elza is an 81yo F with extensive PMH who presents to the emergency department today via private vehicle for evaluation of cold painful leg. Patient has a history of peripheral arterial disease. She underwent cardiac catheterization on Friday of this week, she was noted to have a pulseless foot prior to the procedure.. She had have been stopped in place to control bleeding. She did fe el her leg was cold and painful at that time. It was felt that the blue discoloration of her leg postoperatively was due to the symptoms stop. Upon evaluation next day seemed to be improved and she was discharged home with planned follow-up with vascular surgery outpatient. Patient reports that t hroughout the week or pain has progressively worsened. She now has foot drop and trouble walking without leg. She also notes that the leg is very cold. She's been wrapping his repeated electric blanket without improvement in the cold feeling. Worsening pain and coldness in which she return to the ER for evaluation. - Related Data Home Medications Medication Instructions Recorded Confirmed Mirtazapine 15 mg PO HS 11/17/20 08/18/21 Temazepam 30 mg PO HS PRN 11/24/20 08/18/21 Allopurinol [Zyloprim] 100 mg PO DAILY 05/01/21 08/18/21 Ergocalciferol [Vitamin D2 (1250 1,250 mcg PO BONDS 05/01/21 08/18/21 Mcg = 62015 Iu)] Insulin Detemir (Levemir) [Levemir] 25 unit SQ HS 05/01/21 08/18/21 Insulin Lispro [humaLOG Kwikpen] See Protocol SQ AC-TID 05/01/21 08/18/21 carvediloL [Coreg] 6.25 mg PO BID 05/08/21 08/18/21 Apixaban [Eliquis] 2.5 mg PO BID 08/14/21 08/18/21 Calcium Acetate [PhosLo] 1,334 mg PO QID 08/14/21 08/18/21 Aspirin EC [Ecotrin Low Dose] 81 mg PO DAILY 08/18/21 08/18/21 Sertraline [Zoloft] 100 mg PO DAILY 08/18/21 08/18/21 Previous Rx's Medication Instructions Recorded Torsemide [Demadex] 40 mg PO DAILY 30 Days #30 tablet 05/23/21 Atorvastatin [Lipitor] 40 mg PO DAILY tab 08/15/21 Clopidogrel [Plavix] 75 mg PO DAILY tab 08/15/21 Gabapentin [Neurontin] 300 mg PO BID #30 cap 08/15/21 HYDROcodone/APAP 5-325MG [[place] 1 tab PO Q6HR PRN 3 Days #12 tab 08/15/21 5-325] Allergies Allergy/AdvReac Type Severity Reaction Status Date / Time sulfamethoxazole Allergy Anaphylaxis Verified 08/18/21 18:30 [From Bactrim] trimethoprim [From Bactrim] Allergy Anaphylaxis Verified 08/18/21 18:30 Review of Systems ROS Statement: Those systems with pertinent positive or pertinent negative responses have been documented in the HPI. ROS Other: All systems not noted in ROS Statement are negative. Past Medical History Past Medical History: Heart Failure, COPD, Diabetes Mellitus, Hyperlipidemia, Hypertension, Myocardial Infarction (NH), Musculoskeletal Disorder, Renal Disease, Sleep Apnea/CPAP/BIPAP, Thyroid Disorder Additional Past Medical History / Comment(s): Hemodialysis MWF from 12:30 to 4:30, CHF with diastolic heart failure, hypertension, chronic kidney disease stage III, coronary artery disease with previous bypass surgery, history of pacemaker insertion 2014, obstructive sleep apnea, thyroid nodules, , history of smoking in the order of [id number] cpap Last Myocardial Infarction Date:: 05/26/21 History of Any Multi-Drug Resistant Organisms: ESBL Date of last positivie culture/infection: 10/18/19 MDRO Source:: ESBL URINE Past Surgical History: Appendectomy, Back Surgery, Bariatric Surgery, Coronary Bypass/CABG, Heart Catheterization, Hysterectomy, Pacemaker Additional Past Surgical History / Comment(s): LAP BAND insertion and removal, CATARACT LEFT EYE, NEUROMA ON FOOT, KNEE ARTHROSCOPY, PACEMAKER ([facility] 04/18/2015) Partial thyroidectomy 1999 Past Anesthesia/Blood Transfusion Reactions: No Reported Reaction Type of Cardiac Device: Permanent Pacemaker Device Placement Date:: 04/18/2015 [employer] Past Psychological History: No Psychological Hx Reported Smoking Status: Former smoker Past Alcohol Use History: None Reported Past Drug Use History: None Reported - Past Family History Son(s) Family Medical History: Cancer Additional Family Medical History / Comment(s): MELANOMA- Brother(s) Family Medical History: Cancer Father History Unknown: Yes Family Medical History: Cancer Mother Family Medical History: CVA/TIA General Exam - General Exam Comments Initial Comments: Physical Exam GENERAL: Chronically ill hearing elderly female HENT: Normocephalic, Atraumatic. EYES: PERRL, EOMI PULMONARY: Unlabored respirations. CARDIOVASCULAR: No DP or PT pulses or signals with doppler ABDOMEN: Non-distended SKIN: Well healing incision right groin : Deferred NEUROLOGIC: Alert and oriented MUSCULOSKELETAL: Normal plantar flexion of the foot, decreased strength with dorsiflexion PSYCHIATRIC: No SI/HI Limitations: no limitations Course Vital Signs 08/18/21 08/18/21 08/18/21 14:39 17:46 20:13 Temperature 98.6 F Pulse Rate 72 60 64 Respiratory 20 18 18 Rate Blood Pressure 114/50 150/68 143/63 O2 Sat by Pulse 94 L 98 99 Oximetry Medical Decision Making - Medical Decision Making Shunt was seen and evaluated, history is obtained from patient and review of medical record. 81-year-old female who underwent angioplasty to the right him earlier this week, now has a cold painful limb. She has weakness in dorsiflexion. Patient care was discussed with vascular surgeon Dr. Esquivel who recommended sign patient on heparin, obtaining ultrasound ABIs. Labs are obtained, at baseline for patient, creatinine kinase is elevated this is concerning for ischemic injury however lactic acid is not elevated Patient care was discussed with Dr. Arias who accepts the admission Patient care was again discussed with Dr. Esquivel who recommends CTA with plan for nothing by mouth at midnight possible surgery tomorrow followed by dialysis Was admitted with nephrology and Dr. Esquivel on consult - Lab Data Result diagrams: 08/18/21 16:08 08/18/21 16:08 Lab Results 08/18/21 08/18/21 08/18/21 Range/Units 16:08 16:08 16:08 WBC 7.3 (3.8-10.6) k/uL RBC 3.05 L (3.80-5.40) m/uL Hgb 9.8 L (11.4-16.0) gm/dL Hct 30.2 L (34.0-46.0) % MCV 99.0 (80.0-100.0) fL MCH 32.2 (25.0-35.0) pg MCHC 32.5 (31.0-37.0) g/dL RDW 15.3 (11.5-15.5) % Plt Count 130 L (150-450) k/uL MPV 9.0 Neutrophils % (Manual) 67 % Band Neuts % (Manual) 3 % Lymphocytes % (Manual) 20 % Monocytes % (Manual) 4 % Eosinophils % (Manual) 4 % Metamyelocytes % 2 % Neutrophils # (Manual) 5.10 (1.3-7.7) k/uL Lymphocytes # (Manual) 1.46 (1.0-4.8) k/uL Monocytes # (Manual) 0.29 (0-1.0) k/uL Eosinophils # (Manual) 0.29 (0-0.7) k/uL Metamyelocytes # (Man) 0.15 H (0) k/uL Nucleated RBCs 0 (0-0) /100 WBC Manual Slide Review Performed Hypochromasia Slight Macrocytosis Slight PT (9.0-12.0) sec INR (<1.2) APTT (22.0-30.0) sec Sodium 135 L (137-145) mmol/L Potassium 5.1 (3.5-5.1) mmol/L Chloride 98 (98-107) mmol/L Carbon Dioxide 32 H (22-30) mmol/L Anion Gap 5 mmol/L BUN 48 H (7-17) mg/dL Creatinine 2.82 H (0.52-1.04) mg/dL Est GFR (CKD-EPI)AfAm 17 (>60 ml/min/1.73 sqM) Est GFR (CKD-EPI)NonAf 15 (>60 ml/min/1.73 sqM) Glucose 81 (74-99) mg/dL Plasma Lactic Acid David 0.9 (0.7-2.0) mmol/L Calcium 8.4 (8.4-10.2) mg/dL Total Bilirubin 0.3 (0.2-1.3) mg/dL AST 29 (14-36) U/L ALT 12 (4-34) U/L Alkaline Phosphatase 65 (38-126) U/L Creatine Kinase 200 H (30-135) U/L Total Protein 5.8 L (6.3-8.2) g/dL Albumin 3.1 L (3.5-5.0) g/dL 08/18/21 Range/Units 16:08 WBC (3.8-10.6) k/uL RBC (3.80-5.40) m/uL Hgb (11.4-16.0) gm/dL Hct (34.0-46.0) % MCV (80.0-100.0) fL MCH (25.0-35.0) pg MCHC (31.0-37.0) g/dL RDW (11.5-15.5) % Plt Count (150-450) k/uL MPV Neutrophils % (Manual) % Band Neuts % (Manual) % Lymphocytes % (Manual) % Monocytes % (Manual) % Eosinophils % (Manual) % Metamyelocytes % % Neutrophils # (Manual) (1.3-7.7) k/uL Lymphocytes # (Manual) (1.0-4.8) k/uL Monocytes # (Manual) (0-1.0) k/uL Eosinophils # (Manual) (0-0.7) k/uL Metamyelocytes # (Man) (0) k/uL Nucleated RBCs (0-0) /100 WBC Manual Slide Review Hypochromasia Macrocytosis PT 11.2 (9.0-12.0) sec INR 1.1 (<1.2) APTT 24.5 (22.0-30.0) sec Sodium (137-145) mmol/L Potassium (3.5-5.1) mmol/L Chloride (98-107) mmol/L Carbon Dioxide (22-30) mmol/L Anion Gap mmol/L BUN (7-17) mg/dL Creatinine (0.52-1.04) mg/dL Est GFR (CKD-EPI)AfAm (>60 ml/min/1.73 sqM) Est GFR (CKD-EPI)NonAf (>60 ml/min/1.73 sqM) Glucose (74-99) mg/dL Plasma Lactic Acid David (0.7-2.0) mmol/L Calcium (8.4-10.2) mg/dL Total Bilirubin (0.2-1.3) mg/dL AST (14-36) U/L ALT (4-34) U/L Alkaline Phosphatase (38-126) U/L Creatine Kinase (30-135) U/L Total Protein (6.3-8.2) g/dL Albumin (3.5-5.0) g/dL Disposition Clinical Impression: Ischemic leg, Diabetes mellitus, Normocytic anemia, History of coronary artery disease Disposition: ADMITTED IP TO THIS HOSP Condition: Serious
[2021-08-18 16:24] LABS: HCT 30.2 % (34.0-46.0); HGB 9.8 gm/dL (11.4-16.0); Hypochromasia Slight; MCH 32.2 pg (25.0-35.0); MCHC 32.5 g/dL (31.0-37.0); Macrocytosis Slight; Platelet Count 130 k/uL (150-450); RBC 3.05 m/uL (3.80-5.40); RDW 15.3 % (11.5-15.5); WBC 7.3 k/uL (3.8-10.6)
[2021-08-18 16:36] LABS: Albumin 3.1 g/dL (3.5-5.0); Calcium 8.4 mg/dL (8.4-10.2); INR 1.1 (<1.2); Partial Thromboplastin Time 24.5 sec (22.0-30.0); Potassium 5.1 mmol/L (3.5-5.1); Prothrombin Time 11.2 sec (9.0-12.0); Total Bilirubin 0.3 mg/dL (0.2-1.3); Total Protein 5.8 g/dL (6.3-8.2)
[2021-08-18 17:57] LABS: Nucleated Red Blood Cells 0 /100 WBC (0-0)
[2021-08-18 18:00] LABS: Band Neutrophils % 3 %; Eosinophils # (M) 0.29 k/uL (0-0.7); Lymphocytes # (M) 1.46 k/uL (1.0-4.8); Metamyelocytes # (M) 0.15 k/uL (0); Metamyelocytes % 2 %; Monocytes # (M) 0.29 k/uL (0-1.0); Neutrophils % (M) 67 %; Total Cells Counted 100
[2021-08-18] MEDS ORDERED: NALOXONE 0.4 MG/ML 1 ML VIAL IV PRN (19:37)
--- NOTE | 2021-08-18 22:39 | CT ---
EXAMINATION TYPE: CT angio abd aorta w/Runoff DATE OF EXAM: 08/18/2021 COMPARISON: HISTORY: ischemic right leg CT DLP: 1878.1 mGycm Automated exposure control for dose reduction was used. CONTRAST: Performed with IV Contrast, patient injected with 80 mL of Isovue 370. Images obtained from the diaphragm to the bottom of the feet with IV contrast. There are 3-D post pro cessed images. There is some patchy atelectasis and pleural thickening at the lung bases. There is gastric sleeve. H eart is enlarged. There is no pericardial effusion. Liver spleen stomach pancreas appear intact. The bile ducts are not dilated. There is 1 cm cyst in the medial spleen. Gallbladder appears normal. Kidn eys show contrast opacification. There is cortical thinning and patchy areas of decreased enhancement in both kidneys. There is no retroperitoneal adenopathy. Ureters are not dilated. Abdominal aorta is atheromatous. Bladder distends smoothly. There is air in the bladder consistent with catheterization. There is left hip prosthesis. There is no free fluid in the pelvis. There is no evidence of a pelvic mass. Abdominal aorta is atheromatous. There is plaque formation at the origin of the celiac artery and 50% stenosis. There is arterial flow in the superior mesenteric artery. There are small renal arteries. There is significant plaque formation in the femoral arteries. There is subtotal occlusions of both f emoral arteries. There is apparent complete occlusion of the left femoral artery at the distal femur. There is similar subtotal or complete occlusion of the right femoral artery at the distal femur. The re appears to be contrast opacification of the posterior tibial arteries at both feet. There is no ev idence of flow in the dorsalis pedis arteries bilaterally. There is arterial flow in the left and rig ht anterior tibial artery down to the distal tibia. IMPRESSION: Atherosclerotic Vascular disease. 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 There is priscilla nosis in both renal arteries and variable multifocal decreased enhancement of the kidneys consistent with atherosclerotic hemodynamic stenosis and atrophy and ischemia. Extensive plaque formation in the iliac arteries. There is multifocal stenosis in the femoral arterie s and complete occlusions of the distal femoral arteries bilaterally. There is apparent collateral fl ow reconstituting the tibial arteries bilaterally. There is bilateral posterior tibial artery flow at the feet and distal anterior tibial artery flow to the ankles. Cardiomegaly. Pleural reaction and atelectasis in thickening at the posterior lung bases.
[2021-08-19 01:49] LABS: Glucose,Whole Blood 297 mg/dL (75-99)
[2021-08-19 05:05] LABS: HCT 27.4 % (34.0-46.0); HGB 8.5 gm/dL (11.4-16.0); Hypochromasia Marked; MCH 31.9 pg (25.0-35.0); Macrocytosis Slight; Mean Platelet Volume 9.4; Platelet Count 114 k/uL (150-450); RBC 2.66 m/uL (3.80-5.40); RDW 15.1 % (11.5-15.5); WBC 6.2 k/uL (3.8-10.6)
[2021-08-19 05:19] LABS: Band Neutrophils % 1 %; Eosinophils # (M) 0.56 k/uL (0-0.7); Lymphocytes # (M) 0.93 k/uL (1.0-4.8); Neutrophils % (M) 67 %; Nucleated Red Blood Cells 0 /100 WBC (0-0); Total Cells Counted 100
[2021-08-19 07:16] LABS: African American GFR (CKD) 14 (>60 ml/min/1.73 sqM); Anion Gap 6 mmol/L; Blood Urea Nitrogen 58 mg/dL (7-17); Calcium 7.9 mg/dL (8.4-10.2); Carbon Dioxide 26 mmol/L (22-30); Chloride 101 mmol/L (98-107); Glucose 273 mg/dL (74-99); Non-African American GFR(CKD) 12 (>60 ml/min/1.73 sqM); Sodium 133 mmol/L (137-145)
[2021-08-19 07:36] LABS: Glucose,Whole Blood 225 mg/dL (75-99)
[2021-08-19] MEDS ORDERED: HYDROcodone/APAP 5-325MG 1 EACH TAB PO PRN (09:12)
[2021-08-19] MEDS ORDERED: TEMAZEPAM 30 MG CAP PO PRN (09:12)
--- NOTE | 2021-08-19 09:43 | P.GSCN ---
History of Present Illness Consult date: 08/19/21 History of present illness: Elza is an 81-year-old female with end-stage renal disease, coronary artery disease status post 2 recent stents and cardiac catheterization with impeller device in the right femoral artery. She has has diabetes, hypertension, hyperlipidemia, previous bypass CABG. Prior to her intervention last week she had no difficulty or pain with her lower extremities. She was known to have peripheral arterial disease and did not have good palpable pulses pedal he prior to procedure. Immediately following her catheterization there was notation of some discoloration to her right lower extremity therefore vascular surgery was consult it. After the FemoStop had been removed, there was improvement of her issue and she was sent home on aspirin, Plavix and low-dose Eliquis. She was thought to have more evidence of chronic disease at the time. She presented back to the ER with continuing discomfort of her right lower extremity feeling like it is heavy and unable to use. She is able to ambulate with a 4 will walker. She continues to have some pain in her right lower extremity, neuropathy and this heaviness type feeling Past Medical History Past Medical History: Heart Failure, COPD, Diabetes Mellitus, Hyperlipidemia, Hypertension, Myocardial Infarction ([place]), Musculoskeletal Disorder, Renal Dise ase, Sleep Apnea/CPAP/BIPAP, Thyroid Disorder Additional Past Medical History / Comment(s): Hemodialysis MWF from 12:30 to 4:30, CHF with diastolic heart failure, hypertension, chronic kidney disease stage III, coronary artery disease with previous bypass surgery, history of pacemaker insertion 2014, obstructive sleep apnea, thyroid nodules, , history of smoking in the order of [id number],no cpap Last Myocardial Infarction Date:: 05/26/21 History of Any Multi-Drug Resistant Organisms: None Reported Year Discovered:: 10/18/19 MDRO Source:: ESBL URINE Past Surgical History: Appendectomy, Back Surgery, Bariatric Surgery, Coronary Bypass/CABG, Heart Catheterization, Hysterectomy, Pacemaker Additional Past Surgical History / Comment(s): LAP BAND insertion and removal, CATARACT LEFT EYE, NEUROMA ON FOOT, KNEE ARTHROSCOPY, PACEMAKER ([facility] 04/18/2015) Partial thyroidectomy 1999 Past Anesthesia/Blood Transfusion Reactions: No Reported Reaction Type of Cardiac Device: Permanent Pacemaker Device Placement Date:: 04/18/2015 [facility] Past Psychological History: No Psychological Hx Reported Smoking Status: Former smoker Past Alcohol Use History: None Reported Additional Past Alcohol Use History / Comment(s): Started smoking at age 15 quit smoking Jul 2021 Past Drug Use History: None Reported - Past Family History Son(s) Family Medical History: Cancer Additional Family Medical History / Comment(s): MELANOMA- Brother(s) Family Medical History: Cancer Father History Unknown: Yes Family Medical History: Cancer Mother Family Medical History: CVA/TIA Medications and Allergies Home Medications Medication Instructions Recorded Confirmed Type Mirtazapine 15 mg PO HS 11/17/20 08/18/21 History Temazepam 30 mg PO HS PRN 11/24/20 08/18/21 History Allopurinol [Zyloprim] 100 mg PO DAILY 05/01/21 08/18/21 History Ergocalciferol [Vitamin D2 (1250 1,250 mcg PO BONDS 05/01/21 08/18/21 History Mcg = 34857 Iu)] Insulin Detemir (Levemir) [Levemir] 25 unit SQ HS 05/01/21 08/18/21 History Insulin Lispro [humaLOG Kwikpen] See Protocol SQ AC-TID 05/01/21 08/18/21 History carvediloL [Coreg] 6.25 mg PO BID 05/08/21 08/18/21 History Torsemide [Demadex] 40 mg PO DAILY 30 Days #30 tablet 05/23/21 08/18/21 Rx Apixaban [Eliquis] 2.5 mg PO BID 08/14/21 08/18/21 History Calcium Acetate [PhosLo] 1,334 mg PO QID 08/14/21 08/18/21 History Atorvastatin [Lipitor] 40 mg PO DAILY tab 08/15/21 08/18/21 Rx Clopidogrel [Plavix] 75 mg PO DAILY tab 08/15/21 08/18/21 Rx Gabapentin [Neurontin] 300 mg PO BID #30 cap 08/15/21 08/18/21 Rx HYDROcodone/APAP 5-325MG [[place] 1 tab PO Q6HR PRN 3 Days #12 tab 08/15/21 08/18/21 Rx 5-325] Aspirin EC [Ecotrin Low Dose] 81 mg PO DAILY 08/18/21 08/18/21 History Sertraline [Zoloft] 100 mg PO DAILY 08/18/21 08/18/21 History Allergies Allergy/AdvReac Type Severity Reaction Status Date / Time sulfamethoxazole Allergy Anaphylaxis Verified 08/18/21 18:30 [From Bactrim] trimethoprim [From Bactrim] Allergy Anaphylaxis Verified 08/18/21 18:30 Surgical - Exam Vital Signs Temp Pulse Resp BP Pulse Ox 98.6 F 72 20 114/50 94 L 08/18/21 14:39 08/18/21 14:39 08/18/21 14:39 08/18/21 14:39 08/18/21 14:39 Gen. is a pleasant and cooperative obese female in no acute distress resting comfortably in bed. HEENT is normocephalic, atraumatic, extraocular motion intact. Heart appears regular at this time. Lungs diminished but clear. Abdomen is soft obese and nontender. Extremity show no clubbing, cyanosis or edema. Right foot is slightly cooler to touch. No palpable pedal pulses. Weakly palpable femoral pulses bilaterally.. Motor sensory intact bilaterally Results Arterial images reviewed. ALMA DELIA relatively similar to 2008. 0.32 on the right, 0.[address] angiogram is reviewed. No evidence of acute occlusions noted. Chronic significant calcific disease - Labs 08/19/21 04:18 08/19/21 04:18 Abnormal Lab Results - Last 24 Hours (Table) 08/18/21 08/18/21 08/18/21 Range/Units 16:08 16:08 22:54 RBC 3.05 L (3.80-5.40) m/uL Hgb 9.8 L (11.4-16.0) gm/dL Hct 30.2 L (34.0-46.0) % MCV (80.0-100.0) fL Plt Count 130 L (150-450) k/uL Lymphocytes # (Manual) (1.0-4.8) k/uL Metamyelocytes # (Man) 0.15 H (0) k/uL APTT 69.8 H (22.0-30.0) sec Sodium 135 L (137-145) mmol/L Carbon Dioxide 32 H (22-30) mmol/L BUN 48 H (7-17) mg/dL Creatinine 2.82 H (0.52-1.04) mg/dL Glucose (74-99) mg/dL POC Glucose (mg/dL) (75-99) mg/dL Calcium (8.4-10.2) mg/dL Creatine Kinase 200 H (30-135) U/L Total Protein 5.8 L (6.3-8.2) g/dL Albumin 3.1 L (3.5-5.0) g/dL 08/19/21 08/19/21 08/19/21 Range/Units 01:45 04:18 04:18 RBC 2.66 L (3.80-5.40) m/uL Hgb 8.5 L (11.4-16.0) gm/dL Hct 27.4 L (34.0-46.0) % MCV 103.0 H (80.0-100.0) fL Plt Count 114 L (150-450) k/uL Lymphocytes # (Manual) 0.93 L (1.0-4.8) k/uL Metamyelocytes # (Man) (0) k/uL APTT (22.0-30.0) sec Sodium 133 L (137-145) mmol/L Carbon Dioxide (22-30) mmol/L BUN 58 H (7-17) mg/dL Creatinine 3.31 H (0.52-1.04) mg/dL Glucose 273 H (74-99) mg/dL POC Glucose (mg/dL) 297 H (75-99) mg/dL Calcium 7.9 L (8.4-10.2) mg/dL Creatine Kinase (30-135) U/L Total Protein (6.3-8.2) g/dL Albumin (3.5-5.0) g/dL 08/19/21 Range/Units 07:28 RBC (3.80-5.40) m/uL Hgb (11.4-16.0) gm/dL Hct (34.0-46.0) % MCV (80.0-100.0) fL Plt Count (150-450) k/uL Lymphocytes # (Manual) (1.0-4.8) k/uL Metamyelocytes # (Man) (0) k/uL APTT (22.0-30.0) sec Sodium (137-145) mmol/L Carbon Dioxide (22-30) mmol/L BUN (7-17) mg/dL Creatinine (0.52-1.04) mg/dL Glucose (74-99) mg/dL POC Glucose (mg/dL) 225 H (75-99) mg/dL Calcium (8.4-10.2) mg/dL Creatine Kinase (30-135) U/L Total Protein (6.3-8.2) g/dL Albumin (3.5-5.0) g/dL Diabetes panel 08/18/21 08/19/21 Range/Units 16:08 04:18 Sodium 135 L 133 L (137-145) mmol/L Potassium 5.1 5.0 (3.5-5.1) mmol/L Chloride 98 101 (98-107) mmol/L Carbon Dioxide 32 H 26 (22-30) mmol/L BUN 48 H 58 H (7-17) mg/dL Creatinine 2.82 H 3.31 H (0.52-1.04) mg/dL Glucose 81 273 H (74-99) mg/dL Calcium 8.4 7.9 L (8.4-10.2) mg/dL AST 29 (14-36) U/L ALT 12 (4-34) U/L Alkaline Phosphatase 65 (38-126) U/L Total Protein 5.8 L (6.3-8.2) g/dL Albumin 3.1 L (3.5-5.0) g/dL Calcium panel 08/18/21 08/19/21 Range/Units 16:08 04:18 Calcium 8.4 7.9 L (8.4-10.2) mg/dL Albumin 3.1 L (3.5-5.0) g/dL Pituitary panel 08/18/21 08/19/21 Range/Units 16:08 04:18 Sodium 135 L 133 L (137-145) mmol/L Potassium 5.1 5.0 (3.5-5.1) mmol/L Chloride 98 101 (98-107) mmol/L Carbon Dioxide 32 H 26 (22-30) mmol/L BUN 48 H 58 H (7-17) mg/dL Creatinine 2.82 H 3.31 H (0.52-1.04) mg/dL Glucose 81 273 H (74-99) mg/dL Calcium 8.4 7.9 L (8.4-10.2) mg/dL Adrenal panel 08/18/21 08/19/21 Range/Units 16:08 04:18 Sodium 135 L 133 L (137-145) mmol/L Potassium 5.1 5.0 (3.5-5.1) mmol/L Chloride 98 101 (98-107) mmol/L Carbon Dioxide 32 H 26 (22-30) mmol/L BUN 48 H 58 H (7-17) mg/dL Creatinine 2.82 H 3.31 H (0.52-1.04) mg/dL Glucose 81 273 H (74-99) mg/dL Calcium 8.4 7.9 L (8.4-10.2) mg/dL Total Bilirubin 0.3 (0.2-1.3) mg/dL AST 29 (14-36) U/L ALT 12 (4-34) U/L Alkaline Phosphatase 65 (38-126) U/L Total Protein 5.8 L (6.3-8.2) g/dL Albumin 3.1 L (3.5-5.0) g/dL Assessment and Plan Assessment: Right lower extremity pain, Henry 4 peripheral arterial disease Coronary artery disease status post recent stenting with impella Diabetes Hypertension Hyperlipidemia End-stage renal disease Plan: After review of all imaging and previous findings I do believe this is continued to be a more chronic issue with some disruption after the intervention of her collateral channels. Given the fact she has more rest pain at this time would plan to go forward with intervention this hospitalization. We had a long discussion regarding the significant risks in doing so namely her recent stenti ng procedures. Discussed with her implanting physician as well as cardiology rounding. Patient to be maintained on a heparin drip. Continue aspirin. At this point hold the Plavix, we will reinitiate immediately following when able. This is also all conveyed to the patient's . They seemingly understand and are willing to proceed as such
--- NOTE | 2021-08-19 09:49 | P.CRDCN ---
History of Present Illness Consult date: 08/19/21 Chief complaint: Preoperative cardiac assessment History of present illness: This is an 81-year-old female patient who sees Dr. Cooper irregularly with an extensive cardiovascular history consistent of coronary artery disease with a prior coronary artery bypass grafting and recent stenting on the LAD as well as cardiomyopathy with EF between 35-40% and also permanent atrial fibrillation as well as multiple comorbid conditions who requested to see for preoperative cardiac assessment before noncardiac surgery. The patient underwent recently s uccessful stenting of the left anterior descending artery with adjunctive use of Impella for hemodynamic support. The procedure was performed from the right colon but unfortunately was complicated by acute ischemia. The patient at that point was seen by the vascular surgery service and she was discharged home in stable medical condition to present back to the emergency department complaining of right foot discomfort with cold right foot. She underwent a CTA which revealed almost complete occlusion of the right femoral artery. The patient was seen subsequently by Dr. Esquivel who was planning to undergo right fem-pop bypass this coming Friday. From the cardiac standpoint overview, the patient seems to be stable clinically and hemodynamically. She was started on heparin earlier by the vascular service. She does have permanent atrial fibrillation or anticoagulation and that is on hold. Beside that her antiplatelet on hold beside aspirin. From the cardiac standpoint of view, the patient can pursue the vascular procedure with fem-pop bypass this coming Friday. Past Medical History Past Medical History: Heart Failure, COPD, Diabetes Mellitus, Hyperlipidemia, Hypertension, Myocardial Infarction ([place]), Musculoskeletal Disorder, Renal Di sease, Sleep Apnea/CPAP/BIPAP, Thyroid Disorder Additional Past Medical History / Comment(s): Hemodialysis MWF from 12:30 to 4:30, CHF with diastolic heart failure, hypertension, chronic kidney disease stage III, coronary artery disease with previous bypass surgery, history of pacemaker insertion 2014, obstructive sleep apnea, thyroid nodules, , history of smoking in the order of [id number],no cpap Last Myocardial Infarction Date:: 05/26/21 History of Any Multi-Drug Resistant Organisms: None Reported Date of last positivie culture/infection: 10/18/19 MDRO Source:: ESBL URINE Past Surgical History: Appendectomy, Back Surgery, Bariatric Surgery, Coronary Bypass/CABG, Heart Catheterization, Hysterectomy, Pacemaker Additional Past Surgical History / Comment(s): LAP BAND insertion and removal, CATARACT LEFT EYE, NEUROMA ON FOOT, KNEE ARTHROSCOPY, PACEMAKER ([employer] 04/18/2015) Partial thyroidectomy 1999 Past Anesthesia/Blood Transfusion Reactions: No Reported Reaction Type of Cardiac Device: Permanent Pacemaker Device Placement Date:: 04/18/2015 [employer] Past Psychological History: No Psychological Hx Reported Smoking Status: Former smoker Past Alcohol Use History: None Reported Additional Past Alcohol Use History / Comment(s): Started smoking at age 15 quit smoking Jul 2021 Past Drug Use History: None Reported - Past Family History Son(s) Family Medical History: Cancer Additional Family Medical History / Comment(s): MELANOMA- Brother(s) Family Medical History: Cancer Father History Unknown: Yes Family Medical History: Cancer Mother Family Medical History: CVA/TIA Medications and Allergies Home Medications Medication Instructions Recorded Confirmed Type Mirtazapine 15 mg PO HS 11/17/20 08/18/21 History Temazepam 30 mg PO HS PRN 11/24/20 08/18/21 History Allopurinol [Zyloprim] 100 mg PO DAILY 05/01/21 08/18/21 History Ergocalciferol [Vitamin D2 (1250 1,250 mcg PO BONDS 05/01/21 08/18/21 History Mcg = 63653 Iu)] Insulin Detemir (Levemir) [Levemir] 25 unit SQ HS 05/01/21 08/18/21 History Insulin Lispro [humaLOG Kwikpen] See Protocol SQ AC-TID 05/01/21 08/18/21 History carvediloL [Coreg] 6.25 mg PO BID 05/08/21 08/18/21 History Torsemide [Demadex] 40 mg PO DAILY 30 Days #30 tablet 05/23/21 08/18/21 Rx Apixaban [Eliquis] 2.5 mg PO BID 08/14/21 08/18/21 History Calcium Acetate [PhosLo] 1,334 mg PO QID 08/14/21 08/18/21 History Atorvastatin [Lipitor] 40 mg PO DAILY tab 08/15/21 08/18/21 Rx Clopidogrel [Plavix] 75 mg PO DAILY tab 08/15/21 08/18/21 Rx Gabapentin [Neurontin] 300 mg PO BID #30 cap 08/15/21 08/18/21 Rx HYDROcodone/APAP 5-325MG [[place] 1 tab PO Q6HR PRN 3 Days #12 tab 08/15/21 08/18/21 Rx 5-325] Aspirin EC [Ecotrin Low Dose] 81 mg PO DAILY 08/18/21 08/18/21 History Sertraline [Zoloft] 100 mg PO DAILY 08/18/21 08/18/21 History Allergies Allergy/AdvReac Type Severity Reaction Status Date / Time sulfamethoxazole Allergy Anaphylaxis Verified 08/18/21 18:30 [From Bactrim] trimethoprim [From Bactrim] Allergy Anaphylaxis Verified 08/18/21 18:30 Physical Exam Vitals: Vital Signs Temp Pulse Pulse Resp BP BP Pulse Ox 08/19/21 07:00 98.1 F 69 18 132/58 99 08/19/21 00:57 98.0 F 66 18 133/67 100 08/18/21 20:13 64 18 143/63 99 08/18/21 17:46 60 18 150/68 98 08/18/21 14:39 98.6 F 72 20 114/50 94 L Intake and Output 08/18/21 08/19/21 08/19/21 22:59 06:59 14:59 Intake Total 84.639 Balance 84.639 Intake: Intake, IV Titration 84.639 Amount Heparin Sod,Pork in 0.45% 84.639 NaCl 25,000 unit In 0.45 % NaCl 1 250ml.bag @ 11. 191 UNITS/KG/HR 10 mls/hr IV .Q24H [facility] Rx#: [id number] Oral 0 Other: Voiding Method Diaper # Voids 0 Weight 89.358 kg - Constitutional General appearance: no acute distress - Respiratory Respiratory: bilateral: diminished - Cardiovascular Rhythm: irregularly irregular Heart sounds: normal: S1, S2 Results 08/19/21 04:18 08/19/21 04:18 Cardiac Enzymes 08/18/21 Range/Units 16:08 AST 29 (14-36) U/L Coagulation 08/18/21 08/18/21 Range/Units 16:08 22:54 PT 11.2 (9.0-12.0) sec APTT 24.5 69.8 H (22.0-30.0) sec CBC 08/18/21 08/19/21 Range/Units 16:08 04:18 WBC 7.3 6.2 (3.8-10.6) k/uL RBC 3.05 L 2.66 L (3.80-5.40) m/uL Hgb 9.8 L 8.5 L (11.4-16.0) gm/dL Hct 30.2 L 27.4 L (34.0-46.0) % Plt Count 130 L 114 L (150-450) k/uL Comprehensive Metabolic Panel 08/18/21 08/19/21 Range/Units 16:08 04:18 Sodium 135 L 133 L (137-145) mmol/L Potassium 5.1 5.0 (3.5-5.1) mmol/L Chloride 98 101 (98-107) mmol/L Carbon Dioxide 32 H 26 (22-30) mmol/L BUN 48 H 58 H (7-17) mg/dL Creatinine 2.82 H 3.31 H (0.52-1.04) mg/dL Glucose 81 273 H (74-99) mg/dL Calcium 8.4 7.9 L (8.4-10.2) mg/dL AST 29 (14-36) U/L ALT 12 (4-34) U/L Alkaline Phosphatase 65 (38-126) U/L Total Protein 5.8 L (6.3-8.2) g/dL Albumin 3.1 L (3.5-5.0) g/dL Current Medications Generic Name Dose Route Start Last Admin Trade Name Freq PRN Reason Stop Dose Admin Hydrocodone Bitart/Acetaminophen 1 each 08/19/21 09:12 Hydrocodone/Apap 5-325mg 1 Each Tab PO Q6HR PRN Pain Allopurinol 100 mg 08/20/21 09:00 Allopurinol 100 Mg Tab PO DAILY [facility] Atorvastatin Calcium 40 mg 08/20/21 09:00 Atorvastatin 40 Mg Tab PO DAILY [facility] Calcium Acetate 1,334 mg 08/19/21 13:00 Calcium Acetate 667 Mg Tab PO QID [facility] Carvedilol 6.25 mg 08/19/21 17:30 Carvedilol 6.25 Mg Tab PO BID-W/MEALS [facility] Ergocalciferol 1,250 mcg 08/19/21 10:00 Ergocalciferol 1,250 Mcg (50,000 Iu) Capsule PO BONDS [facility] Gabapentin 300 mg 08/19/21 21:00 Gabapentin 300 Mg Cap PO BID [facility] Heparin Sodium (Porcine) 0 unit 08/18/21 15:47 Heparin Sodium 1,000 Un/Ml (10ml Vl) IV PER PROTOCOL PRN Low PTT Protocol Heparin Sodium/Sodium Chloride 250 mls @ 10 mls/hr 08/18/21 16:00 08/19/21 01:31 25,000 unit/ Sodium Chloride IV 0 units/kg/hr .Q24H [facility] 0 mls/hr Titration Protocol 11.191 UNITS/KG/HR Insulin Aspart 0 unit 08/19/21 12:30 Insulin Aspart (Novolog) 100 Unit/Ml Vial SQ ACHS [facility] Protocol Insulin Detemir 25 unit 08/19/21 21:00 Insulin Detemir (Levemir) 100 Unit/Ml Syr SQ HS [facility] Mirtazapine 15 mg 08/19/21 21:00 Mirtazapine 15 Mg Tab PO HS [facility] Naloxone HCl 0.2 mg 08/18/21 19:37 Naloxone 0.4 Mg/Ml 1 Ml Vial IV Q2M PRN Opioid Reversal Sertraline HCl 100 mg 08/20/21 09:00 Sertraline 100 Mg Tab PO DAILY [facility] Temazepam 30 mg 08/19/21 09:12 Temazepam 30 Mg Cap PO HS PRN Insomnia Torsemide 40 mg 08/20/21 09:00 Torsemide 20 Mg Tab PO DAILY [facility] Intake and Output 08/18/21 08/19/21 08/19/21 22:59 06:59 14:59 Intake Total 84.639 Balance 84.639 Intake: Intake, IV Titration 84.639 Amount Heparin Sod,Pork in 0.45% 84.639 NaCl 25,000 unit In 0.45 % NaCl 1 250ml.bag @ 11. 191 UNITS/KG/HR 10 mls/hr IV .Q24H [facility] Rx#: [id number] Oral 0 Other: Voiding Method Diaper # Voids 0 Weight 89.358 kg 08/19/21 04:18 08/19/21 04:18 Assessment and Plan Assessment: Assessment #1 acute limb ischemia of the right foot #2 severe lower extremities peripheral arterial disease #3 severe coronary artery disease with prior revascularization #4 ischemic cardiomyopathy #5 permanent atrial fibrillation #6 multiple comorbid conditions #7 anemia #8 chronic renal disease Plan #1 the patient can proceed the right femoral bypass this coming Friday #2 restart dual antiplatelet therapy and anticoagulation as soon as possible and safe after the surgery #3 continue monitor the kidney function as well as electrolytes #4 avoid any aggressive blood pressure control #5 follow-up with the patient
[2021-08-19] MEDS ORDERED: ERGOCALCIFEROL 1,250 MCG (50,000 IU) CAPSULE PO SCH (10:00)
[2021-08-19] MEDS ORDERED: HEPARIN SODIUM 1,000 UN/ML (10ML VL) IV PRN (10:07)
[2021-08-19] MEDS ORDERED: HEPARIN SODIUM 1,000 UN/ML (10ML VL) IV ONE (10:07)
--- NOTE | 2021-08-19 10:18 | P.HPIM ---
History of Present Illness H&P Date: 08/19/21 Chief Complaint: Ischemic leg 81-year-old female patient of Dr. Ward who presented with concerns of right lower extremity and inability to use. Patient underwent cardiac stent placement last week when she was temporarily maintained on impella. After cardiac catheterization patient did have fem-stop in place. Patient was noted post catheterization to have some discoloration to right lower extremity and vascular surgery was consulted at that time. Overall improvement with this issue and patient was sent home on aspirin and was told to follow-up with vascular surgery . Patient was DC'd on Plavix eliquis and baby aspirin. Patient presents to ER with worsening discomfort to right lower extremity. Patient underwent CTA which revealed almost complete occlusion of the right femoral artery. Patient has a past medical history of end-stage renal disease maintained on hemodialysis Friday coronary artery disease status post recent to stop placement, diabetes mellitus, hypertension, hyperlipidemia and previous coronary artery bypass graft surgery. Patient also has a long-standing history of nicotine dependence. Patient was started on heparin drip. Vascular surgery and cardiology services have been consulted. At this time patient is resting comfortably in bed. Did discuss case with nursing staff. Patient will be maintained on heparin drip. Plans for surgical intervention on Friday due to finding donor veins per vascular surgery. Per vascular surgery continue heparin drip and hold Plavix and eliquis at this time. Patient is currently resting comfortably in bed still having discomfort to right lower extremity. Patient denies chest pain or shortness breath. Patient denies nausea vomiting or diarrhea patient denies any urinary burning or frequency. Nephrology services will also be consulted for hemodialysis. Review of Systems Please refer to HPI otherwise unremarkable Past Medical History Past Medical History: Heart Failure, COPD, Diabetes Mellitus, Hyperlipidemia, Hypertension, Myocardial Infarction ([place]), Musculoskeletal Disorder, Renal Disease, Sleep Apnea/CPAP/BIPAP, Thyroid Disorder Additional Past Medical History / Comment(s): Hemodialysis MWF from 12:30 to 4:30, CHF with diastolic heart failure, hypertension, chronic kidney disease stage III, coronary artery disease with previous bypass surgery, history of pacemaker insertion 2014, obstructive sleep apnea, thyroid nodules, , history of smoking in the order of [id number],no cpap Last Myocardial Infarction Date:: 05/26/21 History of Any Multi-Drug Resistant Organisms: None Reported Date of last positivie culture/infection: 10/18/19 MDRO Source:: ESBL URINE Past Surgical History: Appendectomy, Back Surgery, Bariatric Surgery, Coronary Bypass/CABG, Heart Catheterization, Hysterectomy, Pacemaker Additional Past Surgical History / Comment(s): LAP BAND insertion and removal, CATARACT LEFT EYE, NEUROMA ON FOOT, KNEE ARTHROSCOPY, PACEMAKER ([employer] 04/18/2015) Partial thyroidectomy 1999 Past Anesthesia/Blood Transfusion Reactions: No Reported Reaction Type of Cardiac Device: Permanent Pacemaker Device Placement Date:: 04/18/2015 [employer] Past Psychological History: No Psychological Hx Reported Smoking Status: Former smoker Past Alcohol Use History: None Reported Additional Past Alcohol Use History / Comment(s): Started smoking at age 15 quit smoking Jul 2021 Past Drug Use History: None Reported - Past Family History Son(s) Family Medical History: Cancer Additional Family Medical History / Comment(s): MELANOMA- Brother(s) Family Medical History: Cancer Father History Unknown: Yes Family Medical History: Cancer Mother Family Medical History: CVA/TIA Medications and Allergies Home Medications Medication Instructions Recorded Confirmed Type Mirtazapine 15 mg PO HS 11/17/20 08/18/21 History Temazepam 30 mg PO HS PRN 11/24/20 08/18/21 History Allopurinol [Zyloprim] 100 mg PO DAILY 05/01/21 08/18/21 History Ergocalciferol [Vitamin D2 (1250 1,250 mcg PO BONDS 05/01/21 08/18/21 History Mcg = 20492 Iu)] Insulin Detemir (Levemir) [Levemir] 25 unit SQ HS 05/01/21 08/18/21 History Insulin Lispro [humaLOG Kwikpen] See Protocol SQ AC-TID 05/01/21 08/18/21 History carvediloL [Coreg] 6.25 mg PO BID 05/08/21 08/18/21 History Torsemide [Demadex] 40 mg PO DAILY 30 Days #30 tablet 05/23/21 08/18/21 Rx Apixaban [Eliquis] 2.5 mg PO BID 08/14/21 08/18/21 History Calcium Acetate [PhosLo] 1,334 mg PO QID 08/14/21 08/18/21 History Atorvastatin [Lipitor] 40 mg PO DAILY tab 08/15/21 08/18/21 Rx Clopidogrel [Plavix] 75 mg PO DAILY tab 08/15/21 08/18/21 Rx Gabapentin [Neurontin] 300 mg PO BID #30 cap 08/15/21 08/18/21 Rx HYDROcodone/APAP 5-325MG [[place] 1 tab PO Q6HR PRN 3 Days #12 tab 08/15/21 08/18/21 Rx 5-325] Aspirin EC [Ecotrin Low Dose] 81 mg PO DAILY 08/18/21 08/18/21 History Sertraline [Zoloft] 100 mg PO DAILY 08/18/21 08/18/21 History Allergies Allergy/AdvReac Type Severity Reaction Status Date / Time sulfamethoxazole Allergy Anaphylaxis Verified 08/18/21 18:30 [From Bactrim] trimethoprim [From Bactrim] Allergy Anaphylaxis Verified 08/18/21 18:30 Physical Exam Vitals: Vital Signs Temp Pulse Pulse Resp BP BP Pulse Ox 08/19/21 07:00 98.1 F 69 18 132/58 99 08/19/21 00:57 98.0 F 66 18 133/67 100 08/18/21 20:13 64 18 143/63 99 08/18/21 17:46 60 18 150/68 98 08/18/21 14:39 98.6 F 72 20 114/50 94 L Intake and Output 08/18/21 08/19/21 08/19/21 22:59 06:59 14:59 Intake Total 84.639 Balance 84.639 Intake: Intake, IV Titration 84.639 Amount Heparin Sod,Pork in 0.45% 84.639 NaCl 25,000 unit In 0.45 % NaCl 1 250ml.bag @ 11. 191 UNITS/KG/HR 10 mls/hr IV .Q24H [facility] Rx#: [id number] Oral 0 Other: Voiding Method Diaper # Voids 0 Weight 89.358 kg Head normocephalic Neck supple Lungs clear to auscultation bilaterally no wheezing or crackles Heart regular rate and rhythm S1-S2, no rub or gallop Abdomen is soft nontender nondistended positive bowel sounds no hepatosplenomegaly Extremities no edema. Right foot is slightly cooler to touch no palpable pedal pulses bilaterally Neuro alert and orientated to 3 Results CBC & Chem 7: 08/19/21 04:18 08/19/21 04:18 Labs: Abnormal Lab Results - Last 24 Hours (Table) 08/18/21 08/18/21 08/18/21 Range/Units 16:08 16:08 22:54 RBC 3.05 L (3.80-5.40) m/uL Hgb 9.8 L (11.4-16.0) gm/dL Hct 30.2 L (34.0-46.0) % MCV (80.0-100.0) fL Plt Count 130 L (150-450) k/uL Lymphocytes # (Manual) (1.0-4.8) k/uL Metamyelocytes # (Man) 0.15 H (0) k/uL APTT 69.8 H (22.0-30.0) sec Sodium 135 L (137-145) mmol/L Carbon Dioxide 32 H (22-30) mmol/L BUN 48 H (7-17) mg/dL Creatinine 2.82 H (0.52-1.04) mg/dL Glucose (74-99) mg/dL POC Glucose (mg/dL) (75-99) mg/dL Calcium (8.4-10.2) mg/dL Creatine Kinase 200 H (30-135) U/L Total Protein 5.8 L (6.3-8.2) g/dL Albumin 3.1 L (3.5-5.0) g/dL 08/19/21 08/19/21 08/19/21 Range/Units 01:45 04:18 04:18 RBC 2.66 L (3.80-5.40) m/uL Hgb 8.5 L (11.4-16.0) gm/dL Hct 27.4 L (34.0-46.0) % MCV 103.0 H (80.0-100.0) fL Plt Count 114 L (150-450) k/uL Lymphocytes # (Manual) 0.93 L (1.0-4.8) k/uL Metamyelocytes # (Man) (0) k/uL APTT (22.0-30.0) sec Sodium 133 L (137-145) mmol/L Carbon Dioxide (22-30) mmol/L BUN 58 H (7-17) mg/dL Creatinine 3.31 H (0.52-1.04) mg/dL Glucose 273 H (74-99) mg/dL POC Glucose (mg/dL) 297 H (75-99) mg/dL Calcium 7.9 L (8.4-10.2) mg/dL Creatine Kinase (30-135) U/L Total Protein (6.3-8.2) g/dL Albumin (3.5-5.0) g/dL 08/19/21 Range/Units 07:28 RBC (3.80-5.40) m/uL Hgb (11.4-16.0) gm/dL Hct (34.0-46.0) % MCV (80.0-100.0) fL Plt Count (150-450) k/uL Lymphocytes # (Manual) (1.0-4.8) k/uL Metamyelocytes # (Man) (0) k/uL APTT (22.0-30.0) sec Sodium (137-145) mmol/L Carbon Dioxide (22-30) mmol/L BUN (7-17) mg/dL Creatinine (0.52-1.04) mg/dL Glucose (74-99) mg/dL POC Glucose (mg/dL) 225 H (75-99) mg/dL Calcium (8.4-10.2) mg/dL Creatine Kinase (30-135) U/L Total Protein (6.3-8.2) g/dL Albumin (3.5-5.0) g/dL Thrombosis Risk Factor Assmnt - Choose All That Apply Any of the Below Risk Factors Present?: Yes Each Factor Represents 1 point: Abnormal pulmonary function (COPD), Acute ND, Heart failure (<1month), Medical pt on bed rest, Minor surgery planned, Obesity (BMI >25) Other Risk Factors: Yes Each Risk Factor Represents 2 Points: Patient confined to bed Each Risk Factor Represents 3 Points: Age 75 years or older Thrombosis Risk Factor Assessment Total Risk Factor Score: 11 Thrombosis Risk Factor Assessment Level: High Risk Assessment and Plan Assessment: 1. Acute limb ischemia of the right foot plans for from bypass surgery on Friday per vascular surgery. Patient maintained on heparin drip 2. Known history of peripheral arterial disease 3. Known coronary artery disease with recent 2 stent placement 4. History of ischemic cardiomyopathy 5. End-stage renal disease maintained on hemodialysis Friday 6. Diabetes mellitus type 2 sliding scale coverage added 7. Long-standing history of nicotine dependence Vascular surgery, cardiology and nephrology service is consulted Patient maintained on heparin drip Plans for fem-bypass surgery on Friday Per cardiology restart dual antiplatelet therapy and anticoagulation as soon as possible after surgery Time with Patient: Greater than 30 (Greater than 60% of the total time spent in counseling and coordination of care)
[2021-08-19] MEDS: ASPIRIN 81 MG PO SCH (10:35)
[2021-08-19 10:44] LABS: INR 1.03 (0.90-1.11); Prothrombin Time 11.3 sec (9.9-11.9)
[2021-08-19] MEDS: HEPARIN SOD,PORK IN 0.45% NACL 25,000 UNIT in 0.45% NACL 1 250ML.BAG IV SCH (11:15)
--- NOTE | 2021-08-19 12:12 | P.NPCON ---
History of Present Illness - Reason for Consult Consult date: 08/19/21 end stage renal disease - Chief Complaint Acute right limb ischemia - History of Present Illness This is a 81-year-old old female seen in consultation because of ESRD, on dialysis under the Friday. She came in because of right leg ischemic changes. She recently underwent cardiac stent placement a week ago on 08/14/2021 and was maintained on impella device. She has some discoloration of right lower extremities and vascular surgery had seen and she was discharged on Plavix and atelectasis and baby aspirin. A CTA shows generalized atherosclerosis with both renal arteries, extensive plaque in the eye like arteries multifocal stenosis in the femoral arteries and complete occlusion of the distal femoral arteries bilaterally with collateral flow bilaterally in the tibial arteries She is also known with diabetes, COPD, coronary artery disease. Admission hemoglobin is 8.5, potassium is 5F patient denies any nausea vomiting chest pain short of breath. She is on nasal cannula oxygen currently. She was dialyzed before yesterday and is scheduled Friday dialysis and unaware of how much fluid was taken off. Past Medical History Past Medical History: Heart Failure, COPD, Diabetes Mellitus, Hyperlipidemia, Hypertension, Myocardial Infarction ([place]), Musculoskeletal Disorder, Renal Disease, Sleep Apnea/CPAP/BIPAP, Thyroid Disorder Additional Past Medical History / Comment(s): Hemodialysis MWF from 12:30 to 4:30, CHF with diastolic heart failure, hypertension, chronic kidney disease stage III, coronary artery disease with previous bypass surgery, history of pacemaker insertion 2014, obstructive sleep apnea, thyroid nodules, , history of smoking in the order of [id number],no cpap Last Myocardial Infarction Date:: 05/26/21 History of Any Multi-Drug Resistant Organisms: None Reported Date of last positivie culture/infection: 10/18/19 MDRO Source:: ESBL URINE Past Surgical History: Appendectomy, Back Surgery, Bariatric Surgery, Coronary Bypass/CABG, Heart Catheterization, Hysterectomy, Pacemaker Additional Past Surgical History / Comment(s): LAP BAND insertion and removal, CATARACT LEFT EYE, NEUROMA ON FOOT, KNEE ARTHROSCOPY, PACEMAKER ([employer] 04/18/2015) Partial thyroidectomy 1999 Past Anesthesia/Blood Transfusion Reactions: No Reported Reaction Type of Cardiac Device: Permanent Pacemaker Device Placement Date:: 04/18/2015 [employer] Past Psychological History: No Psychological Hx Reported Smoking Status: Former smoker Past Alcohol Use History: None Reported Additional Past Alcohol Use History / Comment(s): Started smoking at age 15 quit smoking Jul 2021 Past Drug Use History: None Reported - Past Family History Son(s) Family Medical History: Cancer Additional Family Medical History / Comment(s): MELANOMA- Brother(s) Family Medical History: Cancer Father History Unknown: Yes Family Medical History: Cancer Mother Family Medical History: CVA/TIA Medications and Allergies Home Medications Medication Instructions Recorded Confirmed Type Mirtazapine 15 mg PO HS 11/17/20 08/18/21 History Temazepam 30 mg PO HS PRN 11/24/20 08/18/21 History Allopurinol [Zyloprim] 100 mg PO DAILY 05/01/21 08/18/21 History Ergocalciferol [Vitamin D2 (1250 1,250 mcg PO BONDS 05/01/21 08/18/21 History Mcg = 19767 Iu)] Insulin Detemir (Levemir) [Levemir] 25 unit SQ HS 05/01/21 08/18/21 History Insulin Lispro [humaLOG Kwikpen] See Protocol SQ AC-TID 05/01/21 08/18/21 History carvediloL [Coreg] 6.25 mg PO BID 05/08/21 08/18/21 History Torsemide [Demadex] 40 mg PO DAILY 30 Days #30 tablet 05/23/21 08/18/21 Rx Apixaban [Eliquis] 2.5 mg PO BID 08/14/21 08/18/21 History Calcium Acetate [PhosLo] 1,334 mg PO QID 08/14/21 08/18/21 History Atorvastatin [Lipitor] 40 mg PO DAILY tab 08/15/21 08/18/21 Rx Clopidogrel [Plavix] 75 mg PO DAILY tab 08/15/21 08/18/21 Rx Gabapentin [Neurontin] 300 mg PO BID #30 cap 08/15/21 08/18/21 Rx HYDROcodone/APAP 5-325MG [[place] 1 tab PO Q6HR PRN 3 Days #12 tab 08/15/21 08/18/21 Rx 5-325] Aspirin EC [Ecotrin Low Dose] 81 mg PO DAILY 08/18/21 08/18/21 History Sertraline [Zoloft] 100 mg PO DAILY 08/18/21 08/18/21 History Allergies Allergy/AdvReac Type Severity Reaction Status Date / Time sulfamethoxazole Allergy Anaphylaxis Verified 08/18/21 18:30 [From Bactrim] trimethoprim [From Bactrim] Allergy Anaphylaxis Verified 08/18/21 18:30 Physical Exam Vitals: Vital Signs Temp Pulse Pulse Resp BP BP Pulse Ox 08/19/21 08:00 69 18 08/19/21 07:00 98.1 F 69 18 132/58 99 08/19/21 00:57 98.0 F 66 18 133/67 100 08/18/21 20:13 64 18 143/63 99 08/18/21 17:46 60 18 150/68 98 08/18/21 14:39 98.6 F 72 20 114/50 94 L Intake and Output 08/18/21 08/19/21 08/19/21 22:59 06:59 14:59 Intake Total 84.639 Balance 84.639 Intake: Intake, IV Titration 84.639 Amount Heparin Sod,Pork in 0.45% 84.639 NaCl 25,000 unit In 0.45 % NaCl 1 250ml.bag @ 11. 191 UNITS/KG/HR 10 mls/hr IV .Q24H [facility] Rx#: [id number] Oral 0 Other: Voiding Method Diaper Diaper # Voids 0 Weight 89.358 kg Examination awake alert oriented comfortable HEENT exam no JVP neck is supple no facial asymmetry Lungs are significant for an occasional Heart sounds unremarkable for any murmur rub gallop Abdomen soft nontender Extremity exam reveals warm and normal-looking extremities both sides but some pain on the right side. Both dorsalis pedis are not felt. Neurologically awake alert oriented Results - Lab Results Most recent lab results Calcium 7.9 mg/dL (8.4-10.2) L 08/19/21 04:18 08/19/21 04:18 08/19/21 04:18 Assessment and Plan Assessment: Impression 1. ESRD on dialysis Friday via permacath on the right. 2. Admitted with right leg pain and ischemic changes, currently on exam though looks warm and equally pink on both sides. CTA shows multiple focus of stenosis extensively in both legs was, renal arteries and generalized atherosclerosis. 3. Anemia of ESRD hemoglobin is 8.5 rule out an deficiency 4. Rule out congestive heart failure. 5. History of diabetes and COPD, ischemic cardiac disease status post recent stenting on 08/14/2021 Recommendation 1. Will dialyze tomorrow take off 3 L. 2. Check chest x-ray to ensure there is no significant CHF 3. Check iron saturation 4. Aranesp 60 g every weekly 5. Torsemide 80 mg a day Thank you for this consultation will continue follow
[2021-08-19 12:20] LABS: Glucose,Whole Blood 262 mg/dL (75-99)
[2021-08-19] MEDS ORDERED: DARBEPOETIN ALFA 60 MCG/0.3 ML SYRINGE SQ SCH (12:30)
[2021-08-19] MEDS: INSULIN ASPART (NovoLOG) 100 UNIT/ML VIAL SQ SCH ×3 (13:27→21:10)
[2021-08-19] MEDS: CALCIUM ACETATE 667 MG TAB PO SCH ×3 (13:27→21:10)
[2021-08-19] MEDS: TORSEMIDE 20 MG TAB PO SCH (13:28)
[2021-08-19] MEDS: carvediloL 6.25 MG TAB PO SCH (17:03)
[2021-08-19 17:26] LABS: Glucose,Whole Blood 279 mg/dL (75-99)
[2021-08-19 20:03] LABS: Glucose,Whole Blood 268 mg/dL (75-99)
[2021-08-19] MEDS: GABAPENTIN 300 MG CAP PO SCH (21:10)
[2021-08-19] MEDS: MIRTAZAPINE 15 MG TAB PO SCH (21:10)
[2021-08-19] MEDS: INSULIN DETEMIR (LEVEMIR) 100 UNIT/ML SYR SQ SCH (21:11)
[2021-08-19 22:45] LABS: % Iron Saturation 26.88 (12.00-45.00)
[2021-08-20 07:08] LABS: Glucose,Whole Blood 163 mg/dL (75-99)
[2021-08-20] MEDS: CALCIUM ACETATE 667 MG TAB PO SCH ×4 (07:47→20:35)
[2021-08-20] MEDS: carvediloL 6.25 MG TAB PO SCH ×2 (07:47→17:43)
[2021-08-20] MEDS: ASPIRIN 81 MG PO SCH (07:48)
[2021-08-20] MEDS: TORSEMIDE 20 MG TAB PO SCH (07:48)
[2021-08-20] MEDS: GABAPENTIN 300 MG CAP PO SCH ×2 (07:48→20:35)
[2021-08-20] MEDS: ATORVASTATIN 40 MG TAB PO SCH (07:48)
[2021-08-20] MEDS: SERTRALINE 100 MG TAB PO SCH (07:48)
[2021-08-20] MEDS: allopurinoL 100 MG TAB PO SCH (07:48)
[2021-08-20] MEDS: INSULIN ASPART (NovoLOG) 100 UNIT/ML VIAL SQ SCH ×4 (07:49→20:35)
[2021-08-20] MEDS: HEPARIN SOD,PORK IN 0.45% NACL 25,000 UNIT in 0.45% NACL 1 250ML.BAG IV SCH (07:55)
[2021-08-20] MEDS ORDERED: TORSEMIDE 20 MG TAB PO SCH (09:00)
[2021-08-20 09:03] LABS: Basophils # (A) 0.03 X 10*3/uL (0.00-0.10); Basophils % (A) 0.3 %; Eosinophils # (A) 0.24 X 10*3/uL (0.04-0.35); Eosinophils % (A) 2.1 %; HGB 7.2 g/dL (12.0-15.0); Lymphocytes # (A) 1.33 X 10*3/uL (0.90-5.00); Lymphocytes % (A) 11.8 %; MCH 29.9 pg (27.0-32.0); MCHC 28.8 g/dL (32.0-37.0); MCV 103.7 fL (80.0-97.0); Mean Platelet Volume 12.3 fL (9.5-12.2); Monocytes % (A) 8.9 %; Neutrophils # (A) 8.57 X 10*3/uL (1.80-7.70); Neutrophils % (A) 76.4 %; Platelet Count 117 X 10*3/uL (140-440); RBC 2.41 X 10*6/uL (4.10-5.20); RDW 14.7 % (11.5-14.5); WBC 11.23 X 10*3/uL (4.50-10.00)
[2021-08-20 09:23] LABS: African American GFR (CKD) 11.8 (60.0-200.0); Albumin 3.1 g/dL (3.8-4.9); Albumin/Globulin Ratio 1.48 (1.60-3.17); Anion Gap 14.5 mmol/L (10.00-18.00); BUN/Creat Ratio 19.79 Ratio (12.00-20.00); Blood Urea Nitrogen 77.2 mg/dL (9.0-27.0); Calcium 8.3 mg/dL (8.7-10.3); Carbon Dioxide 20.5 mmol/L (20.0-27.5); Globulin 2.1 g/dL (1.6-3.3); Non-African American GFR(CKD) 10.2 (60.0-200.0); Potassium 6.5 mmol/L (3.5-5.5); Total Bilirubin 0.2 mg/dL (0.30-1.20); Total Protein 5.2 g/dL (6.2-8.2)
--- NOTE | 2021-08-20 10:05 | P.PN ---
Subjective Progress Note Date: 08/20/21 HISTORY OF PRESENT ILLNESS: This is an 81-year-old female patient who sees Dr. Cooper irregularly with an extensive cardiovascular history consistent of coronary artery disease with a prior coronary artery bypass grafting and recent stenting on the LAD as well as cardiomyopathy with EF between 35-40% and also permanent atrial fibrillation as well as multiple comorbid conditions who requested to see for preoperative cardiac assessment before noncardiac surgery. The patient underwent recently successful stenting of the left anterior descending artery with adjunctive use of Impella for hemodynamic support. The procedure was performed from the right colon but unfortunately was complicated by acute ischemia. The patient at that point was seen by the vascular surgery service and she was discharged home in stable medical condition to present back to the emergency department complaining of right foot discomfort with cold right foot. She underwent a CTA which revealed almost complete occlusion of the right femoral artery. The patient was seen subsequently by Dr. Esquivel who was planning to undergo right fem-pop bypass this coming Friday. From the cardiac standpoint overview, the patient seems to be stable clinically and hemodynamically. She was started on heparin earlier by the vascular service. She does have permanent atrial fibrillation or anticoagulation and that is on hold. Beside that her antiplatelet on hold beside aspirin. From the cardiac standpoint of view, the patient can pursue the vascular procedure with fem-pop bypass this coming Friday. 08/20/2021 Patient examined this morning at the bedside. Patient denies chest pain or pr essure. She denies shortness of breath. Telemetry reveals atrial fibrillation. She remains on IV heparin. She is scheduled to undergo right fem-pop bypass on Friday. PHYSICAL EXAM: VITAL SIGNS: Reviewed. GENERAL: Well-developed in no acute distress. NECK: Supple. No JVD or thyromegaly LUNGS: Respirations even and unlabored. Lungs essentially clear to auscultation bilaterally. HEART: Irregular rate and rhythm. S1 and S2 heard. EXTREMITIES: Right lower extremity cool to touch. No clubbing or cyanosis. Peripheral pulses intact. No lower extremity edema ASSESSMENT: Acute limb ischemia of right foot Peripheral arterial disease Coronary artery disease with previous revascularization Ischemic cardiomyopathy Chronic persistent atrial fibrillation Anemia Chronic kidney disease on hemodialysis PLAN: Patient was cleared by Dr. Chen on 08/19/2021 to undergo surgery Continue current cardiac medications Plavix is on hold for upcoming surgery Continue IV heparin Patient is scheduled to undergo surgery on Friday with vascular team Further recommendations pending patient's course Nurse practitioner note has been reviewed by physician. Signing provider agrees with the documented findings, assessment, and plan of care. Objective - Vital Signs Vital signs: Vital Signs Temp 98.2 F 08/20/21 07:00 Pulse 77 08/20/21 07:00 Resp 18 08/20/21 07:00 BP 123/56 08/20/21 07:00 Pulse Ox 98 08/20/21 07:00 Intake & Output 08/19/21 08/20/21 08/20/21 18:59 06:59 18:59 Intake Total 236 185.5 21.167 Balance 236 185.5 21.167 Intake: Intake, IV Titration 185.5 21.167 Amount Heparin Sod,Pork in 0.45% 185.5 21.167 NaCl 25,000 unit In 0.45 % NaCl 1 250ml.bag @ 11. 191 UNITS/KG/HR 10 mls/hr IV .Q24H [facility] Rx#: [id number] Oral 236 Other: Voiding Method Diaper Diaper Diaper # Voids 1 1 - Labs CBC & Chem 7: 08/20/21 04:46 08/20/21 04:46 Labs: Abnormal Lab Results - Last 24 Hours (Table) 08/19/21 08/19/21 08/19/21 Range/Units 12:19 17:14 17:14 WBC (4.50-10.00) X 10*3/uL RBC (4.10-5.20) X 10*6/uL Hgb (12.0-15.0) g/dL Hct (37.2-46.3) % MCV (80.0-97.0) fL MCHC (32.0-37.0) g/dL RDW (11.5-14.5) % Plt Count (140-440) X 10*3/uL MPV (9.5-12.2) fL Immature Gran # (0.00-0.04) X 10*3/uL Neutrophils # (1.80-7.70) X 10*3/uL APTT 57.0 H (22.0-30.0) sec Sodium (135-145) mmol/L Potassium (3.5-5.5) mmol/L BUN (9.0-27.0) mg/dL Creatinine (0.6-1.5) mg/dL Est GFR (CKD-EPI)AfAm (60.0-200.0) Est GFR (CKD-EPI)NonAf (60.0-200.0) Glucose (70-110) mg/dL POC Glucose (mg/dL) 262 H (75-99) mg/dL Calcium (8.7-10.3) mg/dL Iron 49 L (50-170) ug/dL TIBC 183 L (228-460) ug/dL Transferrin 131.0 L (204.0-354.0) mg/dL Total Bilirubin (0.30-1.20) mg/dL Total Protein (6.2-8.2) g/dL Albumin (3.8-4.9) g/dL Albumin/Globulin Ratio (1.60-3.17) g/dL 08/19/21 08/19/21 08/20/21 Range/Units 17:24 20:01 04:46 WBC 11.23 H (4.50-10.00) X 10*3/uL RBC 2.41 L (4.10-5.20) X 10*6/uL Hgb 7.2 L (12.0-15.0) g/dL Hct 25.0 L (37.2-46.3) % MCV 103.7 H (80.0-97.0) fL MCHC 28.8 L (32.0-37.0) g/dL RDW 14.7 H (11.5-14.5) % Plt Count 117 L (140-440) X 10*3/uL MPV 12.3 H (9.5-12.2) fL Immature Gran # 0.06 H (0.00-0.04) X 10*3/uL Neutrophils # 8.57 H (1.80-7.70) X 10*3/uL APTT (22.0-30.0) sec Sodium (135-145) mmol/L Potassium (3.5-5.5) mmol/L BUN (9.0-27.0) mg/dL Creatinine (0.6-1.5) mg/dL Est GFR (CKD-EPI)AfAm (60.0-200.0) Est GFR (CKD-EPI)NonAf (60.0-200.0) Glucose (70-110) mg/dL POC Glucose (mg/dL) 279 H 268 H (75-99) mg/dL Calcium (8.7-10.3) mg/dL Iron (50-170) ug/dL TIBC (228-460) ug/dL Transferrin (204.0-354.0) mg/dL Total Bilirubin (0.30-1.20) mg/dL Total Protein (6.2-8.2) g/dL Albumin (3.8-4.9) g/dL Albumin/Globulin Ratio (1.60-3.17) g/dL 08/20/21 08/20/21 08/20/21 Range/Units 04:46 04:46 06:52 WBC (4.50-10.00) X 10*3/uL RBC (4.10-5.20) X 10*6/uL Hgb (12.0-15.0) g/dL Hct (37.2-46.3) % MCV (80.0-97.0) fL MCHC (32.0-37.0) g/dL RDW (11.5-14.5) % Plt Count (140-440) X 10*3/uL MPV (9.5-12.2) fL Immature Gran # (0.00-0.04) X 10*3/uL Neutrophils # (1.80-7.70) X 10*3/uL APTT 50.0 H (22.0-30.0) sec Sodium 134 L (135-145) mmol/L Potassium 6.5 H* (3.5-5.5) mmol/L BUN 77.2 H (9.0-27.0) mg/dL Creatinine 3.9 H (0.6-1.5) mg/dL Est GFR (CKD-EPI)AfAm 11.8 L (60.0-200.0) Est GFR (CKD-EPI)NonAf 10.2 L (60.0-200.0) Glucose 131 H (70-110) mg/dL POC Glucose (mg/dL) 163 H (75-99) mg/dL Calcium 8.3 L (8.7-10.3) mg/dL Iron (50-170) ug/dL TIBC (228-460) ug/dL Transferrin (204.0-354.0) mg/dL Total Bilirubin 0.20 L (0.30-1.20) mg/dL Total Protein 5.2 L (6.2-8.2) g/dL Albumin 3.1 L (3.8-4.9) g/dL Albumin/Globulin Ratio 1.48 L (1.60-3.17) g/dL
[2021-08-20 12:17] LABS: Glucose,Whole Blood 117 mg/dL (75-99)
--- NOTE | 2021-08-20 14:56 | P.PN ---
Subjective Progress Note Date: 08/20/21 Patient is seen and examined lying in bed. She is undergoing dialysis treatment today. She states she is feeling very tired. She states that she continues to have pain in her right lower extremity. Objective - Vital Signs Vital signs: Vital Signs Temp 98.2 F 08/20/21 07:00 Pulse 77 08/20/21 07:00 Resp 18 08/20/21 07:00 BP 123/56 08/20/21 07:00 Pulse Ox 98 08/20/21 07:00 Intake & Output 08/19/21 08/20/21 08/20/21 18:59 06:59 18:59 Intake Total 236 185.5 21.167 Balance 236 185.5 21.167 Intake: Intake, IV Titration 185.5 21.167 Amount Heparin Sod,Pork in 0.45% 185.5 21.167 NaCl 25,000 unit In 0.45 % NaCl 1 250ml.bag @ 11. 191 UNITS/KG/HR 10 mls/hr IV .Q24H [facility] Rx#: [id number] Oral 236 Other: Voiding Method Diaper Diaper Diaper # Voids 1 1 - Exam General appearance: The patient is alert, oriented, appears in no acute distress. HET: Head is normocephalic and atraumatic. Heart: S1 S2. Regular rate and rhythm. Lungs: Clear to auscultation. Abdomen: Soft, nontender, nondistended. Extremities: Normal skin color and turgor. No clubbing, cyanosis, or edema. Right foot is slightly cooler to touch. No palpable pedal pulses. Palpable bilateral femoral pulses. Motor sensory and intact bilaterally. Neurological: No focal deficits. - Labs CBC & Chem 7: 08/20/21 04:46 08/20/21 04:46 Labs: Abnormal Lab Results - Last 24 Hours (Table) 08/19/21 08/19/21 08/19/21 Range/Units 12:19 17:14 17:14 WBC (4.50-10.00) X 10*3/uL RBC (4.10-5.20) X 10*6/uL Hgb (12.0-15.0) g/dL Hct (37.2-46.3) % MCV (80.0-97.0) fL MCHC (32.0-37.0) g/dL RDW (11.5-14.5) % Plt Count (140-440) X 10*3/uL MPV (9.5-12.2) fL Immature Gran # (0.00-0.04) X 10*3/uL Neutrophils # (1.80-7.70) X 10*3/uL APTT 57.0 H (22.0-30.0) sec Sodium (135-145) mmol/L Potassium (3.5-5.5) mmol/L BUN (9.0-27.0) mg/dL Creatinine (0.6-1.5) mg/dL Est GFR (CKD-EPI)AfAm (60.0-200.0) Est GFR (CKD-EPI)NonAf (60.0-200.0) Glucose (70-110) mg/dL POC Glucose (mg/dL) 262 H (75-99) mg/dL Calcium (8.7-10.3) mg/dL Iron 49 L (50-170) ug/dL TIBC 183 L (228-460) ug/dL Transferrin 131.0 L (204.0-354.0) mg/dL Total Bilirubin (0.30-1.20) mg/dL Total Protein (6.2-8.2) g/dL Albumin (3.8-4.9) g/dL Albumin/Globulin Ratio (1.60-3.17) g/dL 08/19/21 08/19/21 08/20/21 Range/Units 17:24 20:01 04:46 WBC 11.23 H (4.50-10.00) X 10*3/uL RBC 2.41 L (4.10-5.20) X 10*6/uL Hgb 7.2 L (12.0-15.0) g/dL Hct 25.0 L (37.2-46.3) % MCV 103.7 H (80.0-97.0) fL MCHC 28.8 L (32.0-37.0) g/dL RDW 14.7 H (11.5-14.5) % Plt Count 117 L (140-440) X 10*3/uL MPV 12.3 H (9.5-12.2) fL Immature Gran # 0.06 H (0.00-0.04) X 10*3/uL Neutrophils # 8.57 H (1.80-7.70) X 10*3/uL APTT (22.0-30.0) sec Sodium (135-145) mmol/L Potassium (3.5-5.5) mmol/L BUN (9.0-27.0) mg/dL Creatinine (0.6-1.5) mg/dL Est GFR (CKD-EPI)AfAm (60.0-200.0) Est GFR (CKD-EPI)NonAf (60.0-200.0) Glucose (70-110) mg/dL POC Glucose (mg/dL) 279 H 268 H (75-99) mg/dL Calcium (8.7-10.3) mg/dL Iron (50-170) ug/dL TIBC (228-460) ug/dL Transferrin (204.0-354.0) mg/dL Total Bilirubin (0.30-1.20) mg/dL Total Protein (6.2-8.2) g/dL Albumin (3.8-4.9) g/dL Albumin/Globulin Ratio (1.60-3.17) g/dL 08/20/21 08/20/21 08/20/21 Range/Units 04:46 04:46 06:52 WBC (4.50-10.00) X 10*3/uL RBC (4.10-5.20) X 10*6/uL Hgb (12.0-15.0) g/dL Hct (37.2-46.3) % MCV (80.0-97.0) fL MCHC (32.0-37.0) g/dL RDW (11.5-14.5) % Plt Count (140-440) X 10*3/uL MPV (9.5-12.2) fL Immature Gran # (0.00-0.04) X 10*3/uL Neutrophils # (1.80-7.70) X 10*3/uL APTT 50.0 H (22.0-30.0) sec Sodium 134 L (135-145) mmol/L Potassium 6.5 H* (3.5-5.5) mmol/L BUN 77.2 H (9.0-27.0) mg/dL Creatinine 3.9 H (0.6-1.5) mg/dL Est GFR (CKD-EPI)AfAm 11.8 L (60.0-200.0) Est GFR (CKD-EPI)NonAf 10.2 L (60.0-200.0) Glucose 131 H (70-110) mg/dL POC Glucose (mg/dL) 163 H (75-99) mg/dL Calcium 8.3 L (8.7-10.3) mg/dL Iron (50-170) ug/dL TIBC (228-460) ug/dL Transferrin (204.0-354.0) mg/dL Total Bilirubin 0.20 L (0.30-1.20) mg/dL Total Protein 5.2 L (6.2-8.2) g/dL Albumin 3.1 L (3.8-4.9) g/dL Albumin/Globulin Ratio 1.48 L (1.60-3.17) g/dL Assessment and Plan Assessment: 1. Right lower extremity pain, Henry for peripheral arterial disease 2. Coronary artery disease status post recent stenting with impella 3. Diabetes 4. Hypertension 5. Hyperlipidemia 6. End-stage renal disease on hemodialysis Plan: 1. Continue to hold Plavix 2. Continue heparin drip, hold 6 hours prior to procedure 3. Patient is scheduled for right femoral to below the knee bypass The impression and plan of care has been dictated as directed. Dr. Hernandez I performed a history and examination of this patient, discussed the same with the dictator. I agree with the dictator's note ,documented as a scribe. Any additional findings or plans will be noted.
--- NOTE | 2021-08-20 16:17 | PN ---
PROGRESS NOTE Patient is seen on dialysis. She is tolerating her treatment well. She is maintained on a Friday, Friday, Friday schedule. On examination today, blood pressure 123/56, heart rate 77 per minute. Patient is afebrile. EXAMINATION OF THE HEART: S1 and S2. EXAMINATION OF LUNGS: Bilateral breath sounds are heard. Abdomen is soft, non-tender. Examination of lower extremities shows no significant edema. OIL BOILER EXAM: Grossly intact. Labs show hemoglobin 7.2, sodium 134, potassium of 6.5, serum creatinine of 3.9 mg/dL. ASSESSMENT: 1. End-stage renal disease, on hemodialysis on a Friday, Friday, Friday schedule. Currently tolerating treatment well. 2. Acute right lower extremity ischemia. Going for intervention on Friday. 3. Anemia of chronic disease. No active bleeding noted. Check iron. 4. Chronic obstructive pulmonary disease. 5. Coronary artery disease, status post recent coronary stenting on 08/14/2021. 6. Hyperkalemia, currently being dialyzed. Expect improvement post dialysis. It is probably exacerbated with ongoing ischemia in the right leg. PLAN: Next dialysis on Friday. Continue Aranesp. Check iron profile. MMODL / IJN: [id number] /
[2021-08-20 17:32] LABS: Glucose,Whole Blood 272 mg/dL (75-99)
--- NOTE | 2021-08-20 18:51 | P.PN ---
Subjective Progress Note Date: 08/20/21 Elza Avery is an 81-year-old female patient of Dr. Ward who presented with concerns of right lower extremity and inability to use. Patient underwent cardiac stent placement last week when she was temporarily maintained on impella. After cardiac catheterization patient did have fem-stop in place. Sebastian chávez was noted post catheterization to have some discoloration to right lower extremity and vascular surgery was consulted at that time. Overall improvement with this issue and patient was sent home on aspirin and was told to follow-up with vascular surgery. Patient was DC'd on Plavix eliquis and baby aspirin. Patient presents to ER with worsening discomfort to right lower extremity. Patient underwent CTA which revealed almost complete occlusion of the right femoral artery. Patient has a past medical history of end-stage renal disease maintained on hemodialysis Friday coronary artery disease status post recent to stop placement, diabetes mellitus, hypertension, hyperlip idemia and previous coronary artery bypass graft surgery. Patient also has a long-standing history of nicotine dependence. Patient was started on heparin drip. Vascular surgery and cardiology services have been consulted. At this time patient is resting comfortably in bed. Did discuss case with nursing staff. Patient will be maintained on heparin drip. Plans for surgical intervention on Friday due to finding donor veins per vascular surgery. Per vascular surgery continue heparin drip and hold Plavix and eliquis at this time. Patient is currently resting comfortably in bed still having discomfort to right lower extremity. Patient denies chest pain or shortness breath. Patient denies nausea vomiting or diarrhea patient denies any urinary burning or frequency. Nephrology services will also be consulted for hemodialysis. On 08/20/2021 patient was seen and examined on the medical floor she is alert and oriented 3 in no apparent distress she is complaining of foot pain othe rwise she denies any complaints there is no fever or chills no headache or dizziness no chest pain no shortness of breath no cough, no nausea or vomiting no abdominal pain no diarrhea no blood in the stools no burning with urination no frequency or urgency and no hematuria Objective - Vital Signs Vital signs: Vital Signs Temp 98.2 F 08/20/21 07:00 Pulse 77 08/20/21 07:00 Resp 18 08/20/21 07:00 BP 123/56 08/20/21 07:00 Pulse Ox 98 08/20/21 07:00 Intake & Output 08/19/21 08/20/21 08/20/21 18:59 06:59 18:59 Intake Total 236 185.5 21.167 Balance 236 185.5 21.167 Intake: Intake, IV Titration 185.5 21.167 Amount Heparin Sod,Pork in 0.45% 185.5 21.167 NaCl 25,000 unit In 0.45 % NaCl 1 250ml.bag @ 11. 191 UNITS/KG/HR 10 mls/hr IV .Q24H [facility] Rx#: [id number] Oral 236 Other: Voiding Method Diaper Diaper Diaper # Voids 1 1 - Exam In general patient is alert and orientated to 3 Head normocephalic and atraumatic Neck supple, no JVD, no goiter Lungs clear to auscultation bilaterally no wheezing or crackles Heart regular rate and rhythm S1-S2, no rub or gallop Abdomen is soft nontender nondistended positive bowel sounds no hepatosplenomegaly Extremities no edema. Right foot is slightly cooler to touch no palpable pedal pulses bilaterally Neuro no gross focal neurological deficit - Labs CBC & Chem 7: 08/20/21 04:46 08/20/21 04:46 Labs: Abnormal Lab Results - Last 24 Hours (Table) 08/19/21 08/19/21 08/19/21 Range/Units 12:19 17:14 17:14 WBC (4.50-10.00) X 10*3/uL RBC (4.10-5.20) X 10*6/uL Hgb (12.0-15.0) g/dL Hct (37.2-46.3) % MCV (80.0-97.0) fL MCHC (32.0-37.0) g/dL RDW (11.5-14.5) % Plt Count (140-440) X 10*3/uL MPV (9.5-12.2) fL Immature Gran # (0.00-0.04) X 10*3/uL Neutrophils # (1.80-7.70) X 10*3/uL APTT 57.0 H (22.0-30.0) sec Sodium (135-145) mmol/L Potassium (3.5-5.5) mmol/L BUN (9.0-27.0) mg/dL Creatinine (0.6-1.5) mg/dL Est GFR (CKD-EPI)AfAm (60.0-200.0) Est GFR (CKD-EPI)NonAf (60.0-200.0) Glucose (70-110) mg/dL POC Glucose (mg/dL) 262 H (75-99) mg/dL Calcium (8.7-10.3) mg/dL Iron 49 L (50-170) ug/dL TIBC 183 L (228-460) ug/dL Transferrin 131.0 L (204.0-354.0) mg/dL Total Bilirubin (0.30-1.20) mg/dL Total Protein (6.2-8.2) g/dL Albumin (3.8-4.9) g/dL Albumin/Globulin Ratio (1.60-3.17) g/dL 08/19/21 08/19/21 08/20/21 Range/Units 17:24 20:01 04:46 WBC 11.23 H (4.50-10.00) X 10*3/uL RBC 2.41 L (4.10-5.20) X 10*6/uL Hgb 7.2 L (12.0-15.0) g/dL Hct 25.0 L (37.2-46.3) % MCV 103.7 H (80.0-97.0) fL MCHC 28.8 L (32.0-37.0) g/dL RDW 14.7 H (11.5-14.5) % Plt Count 117 L (140-440) X 10*3/uL MPV 12.3 H (9.5-12.2) fL Immature Gran # 0.06 H (0.00-0.04) X 10*3/uL Neutrophils # 8.57 H (1.80-7.70) X 10*3/uL APTT (22.0-30.0) sec Sodium (135-145) mmol/L Potassium (3.5-5.5) mmol/L BUN (9.0-27.0) mg/dL Creatinine (0.6-1.5) mg/dL Est GFR (CKD-EPI)AfAm (60.0-200.0) Est GFR (CKD-EPI)NonAf (60.0-200.0) Glucose (70-110) mg/dL POC Glucose (mg/dL) 279 H 268 H (75-99) mg/dL Calcium (8.7-10.3) mg/dL Iron (50-170) ug/dL TIBC (228-460) ug/dL Transferrin (204.0-354.0) mg/dL Total Bilirubin (0.30-1.20) mg/dL Total Protein (6.2-8.2) g/dL Albumin (3.8-4.9) g/dL Albumin/Globulin Ratio (1.60-3.17) g/dL 08/20/21 08/20/21 08/20/21 Range/Units 04:46 04:46 06:52 WBC (4.50-10.00) X 10*3/uL RBC (4.10-5.20) X 10*6/uL Hgb (12.0-15.0) g/dL Hct (37.2-46.3) % MCV (80.0-97.0) fL MCHC (32.0-37.0) g/dL RDW (11.5-14.5) % Plt Count (140-440) X 10*3/uL MPV (9.5-12.2) fL Immature Gran # (0.00-0.04) X 10*3/uL Neutrophils # (1.80-7.70) X 10*3/uL APTT 50.0 H (22.0-30.0) sec Sodium 134 L (135-145) mmol/L Potassium 6.5 H* (3.5-5.5) mmol/L BUN 77.2 H (9.0-27.0) mg/dL Creatinine 3.9 H (0.6-1.5) mg/dL Est GFR (CKD-EPI)AfAm 11.8 L (60.0-200.0) Est GFR (CKD-EPI)NonAf 10.2 L (60.0-200.0) Glucose 131 H (70-110) mg/dL POC Glucose (mg/dL) 163 H (75-99) mg/dL Calcium 8.3 L (8.7-10.3) mg/dL Iron (50-170) ug/dL TIBC (228-460) ug/dL Transferrin (204.0-354.0) mg/dL Total Bilirubin 0.20 L (0.30-1.20) mg/dL Total Protein 5.2 L (6.2-8.2) g/dL Albumin 3.1 L (3.8-4.9) g/dL Albumin/Globulin Ratio 1.48 L (1.60-3.17) g/dL Assessment and Plan Assessment: 1. Acute limb ischemia of the right foot plans for from bypass surgery on Friday per vascular surgery. Patient maintained on heparin drip 2. Known history of peripheral arterial disease 3. Known coronary artery disease with recent 2 stent placement 4. History of ischemic cardiomyopathy 5. End-stage renal disease maintained on hemodialysis Friday 6. Diabetes mellitus type 2 sliding scale coverage added 7. Long-standing history of nicotine dependence Vascular surgery, cardiology and nephrology service is consulted Patient maintained on heparin drip Plans for fem-bypass surgery on Friday Per cardiology restart dual antiplatelet therapy and anticoagulation as soon as possible after surgery
[2021-08-20 20:05] LABS: Glucose,Whole Blood 413 mg/dL (75-99)
[2021-08-20] MEDS: INSULIN DETEMIR (LEVEMIR) 100 UNIT/ML SYR SQ SCH (20:34)
[2021-08-20] MEDS: MIRTAZAPINE 15 MG TAB PO SCH (20:35)
[2021-08-21 07:18] LABS: Glucose,Whole Blood 292 mg/dL (75-99)
[2021-08-21 07:43] VITALS: RESP 18
[2021-08-21] MEDS: ATORVASTATIN 40 MG TAB PO SCH (07:56)
[2021-08-21] MEDS: allopurinoL 100 MG TAB PO SCH (07:56)
[2021-08-21] MEDS: ASPIRIN 81 MG PO SCH (07:56)
[2021-08-21] MEDS: TORSEMIDE 20 MG TAB PO SCH (07:56)
[2021-08-21] MEDS: SERTRALINE 100 MG TAB PO SCH (07:56)
[2021-08-21] MEDS: carvediloL 6.25 MG TAB PO SCH (07:56)
[2021-08-21] MEDS: GABAPENTIN 300 MG CAP PO SCH (07:56)
[2021-08-21] MEDS: HEPARIN SOD,PORK IN 0.45% NACL 25,000 UNIT in 0.45% NACL 1 250ML.BAG IV SCH (08:10)
[2021-08-21] MEDS: INSULIN ASPART (NovoLOG) 100 UNIT/ML VIAL SQ SCH ×2 (08:15→13:12)
[2021-08-21] MEDS: CALCIUM ACETATE 667 MG TAB PO SCH ×2 (08:16→13:12)
--- NOTE | 2021-08-21 09:48 | P.PN ---
Subjective Progress Note Date: 08/21/21 HISTORY OF PRESENT ILLNESS: This is an 81-year-old female patient who sees Dr. Cooper irregularly with an extensive cardiovascular history consistent of coronary artery disease with a prior coronary artery bypass grafting and recent stenting on the LAD as well as cardiomyopathy with EF between 35-40% and also permanent atrial fibrillation as well as multiple comorbid conditions who requested to see for preoperative cardiac assessment before noncardiac surgery. The patient underwent recently successful stenting of the left anterior descending artery with adjunctive use of Impella for hemodynamic support. The procedure was performed from the right colon but unfortunately was complicated by acute ischemia. The patient at that point was seen by the vascular surgery service and she was discharged home in stable medical condition to present back to the emergency department complaining of right foot discomfort with cold right foot. She underwent a CTA which revealed almost complete occlusion of the right femoral artery. The patient was seen subsequently by Dr. Esquivel who was planning to undergo right fem-pop bypass this coming Friday. From the cardiac standpoint overview, the patient seems to be stable clinically and hemodynamically. She was started on heparin earlier by the vascular service. She does have permanent atrial fibrillation or anticoagulation and that is on hold. Beside that her antiplatelet on hold beside aspirin. From the cardiac standpoint of view, the patient can pursue the vascular procedure with fem-pop bypass this coming Friday. 08/20/2021 Patient examined this morning at the bedside. Patient denies chest pain or pr essure. She denies shortness of breath. Telemetry reveals atrial fibrillation. She remains on IV heparin. She is scheduled to undergo right fem-pop bypass on Friday. 08/21/2021 Patient examined this morning at the bedside. Patient denies chest pain or pressure. She denies shortness of breath. Telemetry reveals atrial fibrillation. She remains on IV heparin. She complaints of pain to right lower extremity. Blood pressure 107/61. Heart rate is in the 70s. She is on 3 L nasal cannula with oxygen saturations greater than 92%. PHYSICAL EXAM: VITAL SIGNS: Reviewed. GENERAL: Well-developed in no acute distress. NECK: Supple. No JVD or thyromegaly LUNGS: Respirations even and unlabored. Lungs essentially clear to auscultation bilaterally. HEART: Irregular rate and rhythm. S1 and S2 heard. EXTREMITIES: Right lower extremity cool to touch. No clubbing or cyanosis. Peripheral pulses intact. No lower extremity edema ASSESSMENT: Acute limb ischemia of right foot Peripheral arterial disease Coronary artery disease with previous revascularization Ischemic cardiomyopathy Chronic persistent atrial fibrillation Anemia Chronic kidney disease on hemodialysis PLAN: Patient was cleared by Dr. Chen on 08/19/2021 to undergo surgery Continue current cardiac medications Plavix is on hold for upcoming surgery Continue IV heparin Patient is scheduled to undergo surgery on Friday with vascular team Further recommendations pending patient's course Nurse practitioner note has been reviewed by physician. Signing provider agrees with the documented findings, assessment, and plan of care. Objective - Vital Signs Vital signs: Vital Signs Temp 99.1 F 08/21/21 07:00 Pulse 71 08/21/21 07:00 Resp 18 08/21/21 07:00 BP 107/61 08/21/21 07:00 Pulse Ox 100 08/21/21 07:00 Intake & Output 08/20/21 08/21/21 08/21/21 18:59 06:59 18:59 Intake Total 501.167 242.5 Output Total 1400 Balance -898.833 242.5 Intake: Intake, IV Titration 21.167 242.5 Amount Heparin Sod,Pork in 0.45% 21.167 242.5 NaCl 25,000 unit In 0.45 % NaCl 1 250ml.bag @ 11. 191 UNITS/KG/HR 10 mls/hr IV .Q24H [facility] Rx#: [id number] Oral 480 Output: Hemodialysis 1400 Other: Voiding Method Diaper Diaper External Catheter # Voids 0 3 # Bowel Movements 1 - Labs CBC & Chem 7: 08/20/21 04:46 08/20/21 04:46 Labs: Abnormal Lab Results - Last 24 Hours (Table) 08/20/21 08/20/21 08/20/21 Range/Units 12:08 17:22 20:04 APTT (22.0-30.0) sec POC Glucose (mg/dL) 117 H 272 H 413 H (75-99) mg/dL 08/21/21 08/21/21 Range/Units 05:12 06:49 APTT 44.1 H (22.0-30.0) sec POC Glucose (mg/dL) 292 H (75-99) mg/dL
[2021-08-21 11:48] LABS: Glucose,Whole Blood 282 mg/dL (75-99)
--- NOTE | 2021-08-21 13:50 | P.PN ---
Subjective Progress Note Date: 08/21/21 Patient is seen and examined lying in bed. She is feeling tired today. She states that she continues to have pain in her right lower extremity at rest. She has not been up ambulating. Objective - Vital Signs Vital signs: Vital Signs Temp 99.1 F 08/21/21 07:00 Pulse 71 08/21/21 07:00 Resp 18 08/21/21 07:00 BP 107/61 08/21/21 07:00 Pulse Ox 100 08/21/21 07:00 Intake & Output 08/20/21 08/21/21 08/21/21 18:59 06:59 18:59 Intake Total 501.167 242.5 Output Total 1400 Balance -898.833 242.5 Intake: Intake, IV Titration 21.167 242.5 Amount Heparin Sod,Pork in 0.45% 21.167 242.5 NaCl 25,000 unit In 0.45 % NaCl 1 250ml.bag @ 11. 191 UNITS/KG/HR 10 mls/hr IV .Q24H [facility] Rx#: [id number] Oral 480 Output: Hemodialysis 1400 Other: Voiding Method Diaper Diaper External Catheter # Voids 0 3 # Bowel Movements 1 - Exam General appearance: The patient is alert, oriented, appears in no acute distress. HET: Head is normocephalic and atraumatic. Heart: S1 S2. Regular rate and rhythm. Lungs: Clear to auscultation. Abdomen: Soft, nontender, nondistended. Extremities: Normal skin color and turgor. No clubbing, cyanosis, or edema. Right foot is slightly cooler to touch. No palpable pedal pulses. Palpable bilateral femoral pulses. Motor sensory and intact bilaterally. Neurological: No focal deficits. - Labs CBC & Chem 7: 08/20/21 04:46 08/20/21 04:46 Labs: Abnormal Lab Results - Last 24 Hours (Table) 08/20/21 08/20/21 08/20/21 Range/Units 12:08 17:22 20:04 APTT (22.0-30.0) sec POC Glucose (mg/dL) 117 H 272 H 413 H (75-99) mg/dL 08/21/21 08/21/21 Range/Units 05:12 06:49 APTT 44.1 H (22.0-30.0) sec POC Glucose (mg/dL) 292 H (75-99) mg/dL Assessment and Plan Assessment: 1. Right lower extremity pain, Henry for peripheral arterial disease 2. Coronary artery disease status post recent stenting with impella 3. Diabetes 4. Hypertension 5. Hyperlipidemia 6. End-stage renal disease on hemodialysis Plan: 1. Continue to hold Plavix 2. Continue heparin drip, hold 6 hours prior to procedure. Discontinue 08/22/21 @ 0900. 3. Patient is scheduled for right femoral to below the knee bypass tomorrow 4. Patient may have liquids and light breakfast up until 0600. NPO 0700 The impression and plan of care has been dictated as directed. Dr. Henao I performed a history and examination of this patient, discussed the same with the dictator. I agree with the dictator's note ,documented as a scribe. Any additional findings or plans will be noted.
[2021-08-21 14:14] LABS: Glucose,Whole Blood 283 mg/dL (75-99)
[2021-08-21] MEDS ORDERED: LACTATED RINGERS 1,000 ML IV SCH (14:16)
[2021-08-21] MEDS ORDERED: ONDANSETRON 4 MG/2 ML VIAL IVP ONE (14:16)
[2021-08-21] MEDS ORDERED: LIDOCAINE 1% (10MG/ML) FOR IV START INTRADERMA PRN (14:16)
[2021-08-21] MEDS ORDERED: DEXAMETHASONE SOD PHOSPHATE 4 MG/ML 1 ML VIAL IV ONE (14:16)
--- NOTE | 2021-08-21 14:38 | CT ---
EXAMINATION TYPE: CT brain wo con for TPA DATE OF EXAM: 08/21/2021 COMPARISON: None HISTORY: cva CT DLP: 1029.9 mGycm Automated exposure control for dose reduction was used. FINDINGS: Intracranial atherosclerotic changes are noted. Exam is limited due to motion. This limits assessment for hemorrhage. There is mild generalized degenerative change with diffuse low-attenuation in the wh ite matter which is nonspecific. No sizable obvious intraparenchymal hemorrhage is seen given the marie itation of the exam. Calvarium intact. Craniocervical junction maintained. IMPRESSION: MILD DEGENERATIVE CHANGE WITH NONSPECIFIC WHITE MATTER CHANGES COULD BE ON THE BASIS OF REMOTE ISCHEM IA. IF CONCERN FOR ACUTE ISCHEMIA CORRELATE WITH MRI. ASSESSMENT FOR HEMORRHAGE IS LIMITED DUE TO SEVERE MOTION ARTIFACT ON SEVERAL IMAGES. NO GROSS ACUTE INTRACRANIAL HEMORRHAGE VISUALIZED CORRELATE CLINICALLY.
[2021-08-21 15:30] VITALS: TEMP 98.3
--- NOTE | 2021-08-21 15:54 | CT ---
EXAMINATION TYPE: CODE STROKE: CTA head neck DATE OF EXAM: 08/21/2021 HISTORY: cva COMPARISON: 08/21/2021 CT DLP: 403.5 mGycm. Automated Exposure Control for Dose Reduction was Utilized. TECHNIQUE: CTA scan of the neck is performed with IV Contrast, patient injected with 65cc mL of Isov ue 370, axial images are obtained, coronal and sagittal reformatted images are reviewed. 3D reconstru cted images are created on an independent workstation and reviewed. FINDINGS: Right vertebral artery slightly dominant. Vertebral basilar system is patent. Atherosclerotic change aorta. Atherosclerotic change of the origins of the great vessels. Atherosclerotic change involving t he carotid bifurcations bilaterally approximately 50% stenosis on the right and 60% stenosis on the l eft. Intracranial atherosclerotic changes also noted. Intracranially the vertebral basilar system is patent. No sizable aneurysm or vascular malformation. M1 segment of the left middle cerebral bilaterally somewhat diminutive in caliber. Generalized degene rative changes seen intracranially with nonspecific white matter changes. Degenerative change of the cervical spine noted. Left thyroid lobe appears enlarged. Lung apices are clear. There appears be a diminutive posterior cerebral arteries bilaterally. IMPRESSION: 1. The findings suggest a 50% stenosis of the proximal right ICA and 66% stenosis of the proximal lef t ICA. 2. No sizable aneurysm or vascular malformation. 3. M1 segment of the left MCA is somewhat diminutive in caliber. There is enhancement distally of the trifurcation branches. Recommend follow-up MRI MRA for further evaluation. NASCET criteria was used in interpretation of this exam?
[2021-08-21 16:20] VITALS: BP 172/90; PULSE 88
[2021-08-21] MEDS ORDERED: SODIUM BICARB 8.4% 50 ML SYR (1 MEQ/ML) ONE (16:38)
[2021-08-21] MEDS ORDERED: CALCIUM CHLORIDE 1 GM/10 ML VIAL ONE (16:38)
[2021-08-21] MEDS ORDERED: EPINEPHrine 10 ML SYRINGE (0.1 MG/ML) ONE (16:38)
[2021-08-21 16:56] LABS: INR 1.2 (<1.2); Partial Thromboplastin Time 23.8 sec (22.0-30.0); Prothrombin Time 12.3 sec (9.0-12.0)
[2021-08-21 16:59] LABS: Glucose,Whole Blood 359 mg/dL (75-99)
[2021-08-21] MEDS ORDERED: carvediloL 3.125 MG TAB PO SCH (17:30)
--- NOTE | 2021-08-21 17:31 | PN ---
PROGRESS NOTE Patient is seen for followup for end-stage renal disease. Pt is seen in the morning. This morning she is comfortable. Patient denies any significant complaints. She is resting comfortably. Patient is maintained on a Friday, Friday, Friday schedule for dialysis. She continues to complain of pain in her right lower extremity. On examination today, blood pressure this morning 107/61, heart rate 71 per minute. She is afebrile. EXAMINATION OF THE HEART: S1 and S2. EXAMINATION OF LUNGS: Bilateral breath sounds are heard. Abdomen is soft, non-tender. Examination of lower extremities shows no significant edema. 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 Labs are not available from today. Yesterday sodium was 134, potassium 6.5. ASSESSMENT: 1. End-stage renal disease, on hemodialysis on a Friday, Friday, Friday schedule. Will arrange for hemodialysis in a.m. 2. Right lower extremity pain secondary to ischemia, being followed by Vascular. Plan for intervention tomorrow. Maintained on IV heparin. 3. Anemia of chronic disease with drop in hemoglobin, maintained on Aranesp. No active bleeding noted. Iron saturation was 26% on 08/19/2021. PLAN: Continue with the Aranesp. Hemodialysis in a.m. MMODL / IJN: [id number] / DANI
--- NOTE | 2021-08-21 17:33 | P.PN ---
Subjective Progress Note Date: 08/21/21 Elza Avery is an 81-year-old female patient of Dr. Ward who presented with concerns of right lower extremity and inability to use. Patient underwent cardiac stent placement last week when she was temporarily maintained on impella. After cardiac catheterization patient did have fem-stop in place. Sebastian chávez was noted post catheterization to have some discoloration to right lower extremity and vascular surgery was consulted at that time. Overall improvement with this issue and patient was sent home on aspirin and was told to follow-up with vascular surgery. Patient was DC'd on Plavix eliquis and baby aspirin. Patient presents to ER with worsening discomfort to right lower extremity. Patient underwent CTA which revealed almost complete occlusion of the right femoral artery. Patient has a past medical history of end-stage renal disease maintained on hemodialysis Friday coronary artery disease status post recent to stop placement, diabetes mellitus, hypertension, hyperlip idemia and previous coronary artery bypass graft surgery. Patient also has a long-standing history of nicotine dependence. Patient was started on heparin drip. Vascular surgery and cardiology services have been consulted. At this time patient is resting comfortably in bed. Did discuss case with nursing staff. Patient will be maintained on heparin drip. Plans for surgical intervention on Friday due to finding donor veins per vascular surgery. Per vascular surgery continue heparin drip and hold Plavix and eliquis at this time. Patient is currently resting comfortably in bed still having discomfort to right lower extremity. Patient denies chest pain or shortness breath. Patient denies nausea vomiting or diarrhea patient denies any urinary burning or frequency. Nephrology services will also be consulted for hemodialysis. On 08/20/2021 patient was seen and examined on the medical floor she is alert and oriented 3 in no apparent distress she is complaining of foot pain othe rwise she denies any complaints there is no fever or chills no headache or dizziness no chest pain no shortness of breath no cough, no nausea or vomiting no abdominal pain no diarrhea no blood in the stools no burning with urination no frequency or urgency and no hematuria On 08/21/2021 patient was seen and examined on the medical floor, she is complaining of severe fatigue, she is complaining of foot pain otherwise she denies any complaints there is no chest pain or shortness of breath, no nausea or vomiting no abdominal pain no diarrhea and no urinary symptoms Objective - Vital Signs Vital signs: Vital Signs Temp 98.3 F 08/21/21 14:10 Pulse 74 08/21/21 14:10 Resp 18 08/21/21 14:10 BP 94/53 08/21/21 14:10 Pulse Ox 82 L 08/21/21 14:10 Intake & Output 08/20/21 08/21/21 08/21/21 18:59 06:59 18:59 Intake Total 501.167 242.5 Output Total 1400 Balance -898.833 242.5 Intake: Intake, IV Titration 21.167 242.5 Amount Heparin Sod,Pork in 0.45% .167 242.5 NaCl 25,000 unit In 0.45 % NaCl 1 250ml.bag @ 11. 191 UNITS/KG/HR 10 mls/hr IV .Q24H [facility] Rx#: [id number] Oral 480 Output: Hemodialysis 1400 Other: Voiding Method Diaper Diaper Diaper External Catheter External Catheter # Voids 0 3 3 # Bowel Movements 1 1 - Exam In general patient is alert and orientated to 3 Head normocephalic and atraumatic Neck supple, no JVD, no goiter Lungs clear to auscultation bilaterally no wheezing or crackles Heart regular rate and rhythm S1-S2, no rub or gallop Abdomen is soft nontender nondistended positive bowel sounds no hepatosplenomegaly Extremities no edema. Right foot is slightly cooler to touch no palpable pedal pulses bilaterally Neuro no gross focal neurological deficit - Labs CBC & Chem 7: 08/20/21 04:46 08/20/21 04:46 Labs: Abnormal Lab Results - Last 24 Hours (Table) 08/20/21 08/20/21 08/21/21 Range/Units 17:22 20:04 05:12 APTT 44.1 H (22.0-30.0) sec POC Glucose (mg/dL) 272 H 413 H (75-99) mg/dL 08/21/21 08/21/21 08/21/21 Range/Units 06:49 11:43 14:03 APTT (22.0-30.0) sec POC Glucose (mg/dL) 292 H 282 H 283 H (75-99) mg/dL Assessment and Plan Assessment: 1. Acute limb ischemia of the right foot plans for from bypass surgery on Friday per vascular surgery. Patient maintained on heparin drip 2. Known history of peripheral arterial disease 3. Known coronary artery disease with recent 2 stent placement 4. History of ischemic cardiomyopathy 5. End-stage renal disease maintained on hemodialysis Friday 6. Diabetes mellitus type 2 sliding scale coverage added 7. Long-standing history of nicotine dependence Vascular surgery, cardiology and nephrology service is consulted Patient maintained on heparin drip Plans for fem-bypass surgery on Friday Per cardiology restart dual antiplatelet therapy and anticoagulation as soon as possible after surgery
--- NOTE | 2021-08-21 17:37 | P.DS ---
Providers Date of admission: 08/18/21 19:37 Expected date of discharge: 08/21/21 Attending physician: Lona Arias Consults: 08/18/21 19:37 Consult Physician Stat Consulting Provider: Gertrude Esquivel Consult Reason/Comments: ischemic limb Do you want consulting provider notified?: Already Contacted 08/18/21 21:21 Consult Physician Urgent Consulting Provider: Desean Eckert Consult Reason/Comments: established dialysis pt MWF Do you want consulting provider notified?: Yes 08/18/21 21:24 Consult Physician Urgent Consulting Provider: Carmella Cooper Consult Reason/Comments: recent cardiac stent, need for OR Do you want consulting provider notified?: Yes 08/21/21 16:09 Consult Physician Stat Consulting Provider: Torsten Sage Consult Reason/Comments: CODE STROKE Do you want consulting provider notified?: Yes Primary care physician: Carissa Ward Hospital Course: Diagnosis on discharge: 1. Acute limb ischemia of the right foot plans for from bypass surgery on Friday per vascular surgery. Patient maintained on heparin drip 2. Known history of peripheral arterial disease 3. Known coronary artery disease with recent 2 stent placement 4. History of ischemic cardiomyopathy 5. End-stage renal disease maintained on hemodialysis Friday 6. Diabetes mellitus type 2 sliding scale coverage added 7. Long-standing history of nicotine dependence Hospital course: Elza Avery is an 81-year-old female patient of Dr. Ward who presented with concerns of right lower extremity and inability to use. Patient underwent cardiac stent placement last week when she was temporarily maintained on impella. After cardiac catheterization patient did have fem-stop in place. Patient was noted post catheterization to have some discoloration to right lower extremity and vascular surgery was consulted at that time. Overall improvement with this issue and patient was sent home on aspirin and was told to follow-up with vascular surgery. Patient was DC'd on Plavix eliquis and baby aspirin. Patient presents to ER with worsening discomfort to right lower extremity. Patient underwent CTA which revealed almost complete occlusion of the right femoral artery. Patient has a past medical history of end-stage renal disease maintained on hemodialysis Friday coronary artery disease status post recent to stop placement, diabetes mellitus, hypertension, hyperlipidemia and previous coronary artery bypass graft surgery. Patient also has a long-standing history of nicotine dependence. Patient was started on heparin drip. Vascular surgery and cardiology services have been consulted. At this time patient is resting comfortably in bed. Did discuss case with nursing staff. Patient will be maintained on heparin drip. Plans for surgical intervention on Friday due to finding donor veins per vascular surgery. Per vascular surgery continue heparin drip and hold Plavix and eliquis at this time. Patient is currently resting comfortably in bed still having discomfort to right lower extremity. Patient denies chest pain or shortness breath. Patient denies nausea vomiting or diarrhea patient denies any urinary burning or frequency. Nephrology services will also be consulted for hemodialysis. On 08/20/2021 patient was seen and examined on the medical floor she is alert and oriented 3 in no apparent distress she is complaining of foot pain otherwise she denies any complaints there is no fever or chills no headache or dizziness no chest pain no shortness of breath no cough, no nausea or vomiting no abdominal pain no diarrhea no blood in the stools no burning with urination no frequency or urgency and no hematuria On 08/21/2021 patient was seen and examined on the medical floor, she is complaining of severe fatigue, she is complaining of foot pain otherwise she denies any complaints there is no chest pain or shortness of breath, no nausea or vomiting no abdominal pain no diarrhea and no urinary symptoms. Patient had a code stroke on the medical floor, she was transferred to telemetry floor, she subsequently had a CODE BLUE with cardiac arrest on the telemetry floor, patient had cardiac resuscitation with CPR, this was not successful and patient was pronounced, family were contacted. Patient Condition at Discharge: Serious Plan - Discharge Summary Discharge Rx Participant: No New Discharge Prescriptions: No Action Mirtazapine 15 mg PO HS Insulin Detemir (Levemir) [Levemir] 25 unit SQ HS Torsemide [Demadex] 40 mg PO DAILY 30 Days #30 tablet Calcium Acetate [PhosLo] 1,334 mg PO QID Gabapentin [Neurontin] 300 mg PO BID #30 cap Aspirin EC [Ecotrin Low Dose] 81 mg PO DAILY Temazepam 30 mg PO HS PRN PRN Reason: Insomnia Allopurinol [Zyloprim] 100 mg PO DAILY Ergocalciferol [Vitamin D2 (1250 Mcg = 91862 Iu)] 1,250 mcg PO BONDS Insulin Lispro [humaLOG Kwikpen] See Protocol SQ AC-TID carvediloL [Coreg] 6.25 mg PO BID Apixaban [Eliquis] 2.5 mg PO BID Atorvastatin [Lipitor] 40 mg PO DAILY tab Clopidogrel [Plavix] 75 mg PO DAILY tab HYDROcodone/APAP 5-325MG [[place] 5-325] 1 tab PO Q6HR PRN 3 Days #12 tab PRN Reason: Pain Sertraline [Zoloft] 100 mg PO DAILY Discharge Medication List Mirtazapine 15 mg PO HS 11/17/20 [History] Temazepam 30 mg PO HS PRN 11/24/20 [History] Allopurinol [Zyloprim] 100 mg PO DAILY 05/01/21 [History] Ergocalciferol [Vitamin D2 (1250 Mcg = 08161 Iu)] 1,250 mcg PO BONDS 05/01/21 [History] Insulin Detemir (Levemir) [Levemir] 25 unit SQ HS 05/01/21 [History] Insulin Lispro [humaLOG Kwikpen] See Protocol SQ AC-TID 05/01/21 [History] carvediloL [Coreg] 6.25 mg PO BID 05/08/21 [History] Torsemide [Demadex] 40 mg PO DAILY 30 Days #30 tablet 05/23/21 [Rx] Apixaban [Eliquis] 2.5 mg PO BID 08/14/21 [History] Calcium Acetate [PhosLo] 1,334 mg PO QID 08/14/21 [History] Atorvastatin [Lipitor] 40 mg PO DAILY tab 08/15/21 [Rx] Clopidogrel [Plavix] 75 mg PO DAILY tab 08/15/21 [Rx] Gabapentin [Neurontin] 300 mg PO BID #30 cap 08/15/21 [Rx] HYDROcodone/APAP 5-325MG [[place] 5-325] 1 tab PO Q6HR PRN 3 Days #12 tab 08/15/21 [Rx] Aspirin EC [Ecotrin Low Dose] 81 mg PO DAILY 08/18/21 [History] Sertraline [Zoloft] 100 mg PO DAILY 08/18/21 [History] Follow up Appointment(s)/Referral(s): Carissa Ward MD [Primary Care Provider] - 1-2 days
--- NOTE | 2021-08-21 18:52 | P.CNNES ---
History of Present Illness Consult date: 08/21/21 Requesting physician: Lona Arias Reason for Consult: Code stroke History of Present Illness: Patient is a 81-year-old female with history of end-stage renal disease on hemodialysis, peripheral arterial disease came to the hospital on 08/18/2021 in a private vehicle for evaluation of cold painful leg. Patient has history of peripheral arterial disease. Patient had cardiac catheterization on 08/14/2021 and was found to have pulseless foot prior to the procedure. Patient underwent CT angiogram of abdominal aorta with runoff revealed atherosclerotic vascular disease. 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 There is stenosis in both renal arteries and variable multifocal decreased enhancement of the kidneys consistent with atherosclerotic hemodynamic stenosis and atrophy and ischemia. Extensive plaque formation in the iliac arteries. There is multifocal stenosis in the femoral arteries and complete occlusion of the distal femoral arteries bilaterally. There is apparently collateral flow reconstituting the tibial arteries bilaterally. There is bilateral posterior tibial artery flow at the feet and distal anterior tibial artery flow to the ankles. Patient was scheduled for bypass from right femoral to below knee in the morning. Patient has been on heparin drip with therapeutic PTT 44.1 as of 5:14 AM this morning. Patient was previously on Eliquis 2.5 mg twice a day, but was held in anticipation for upcoming surgery and started on heparin infusion since arrival to the hospital. Patient developed acute stroke symptoms noted by the nurse Enriqueta ARAUJO at around 2 PM. I spoke to her and gathered information as below. This morning, the nurse noted that she was alert, awake, but slightly confused. She knew who the president was, was following commands like sticking out the tongue, or holding the hands, and the panel beater was equal. She was mildly confused, as she thought it was October 2020. She was responding appropriately. She knew her name and where she was at. Patient was still fine during the cardiology rounds between 1:00 to 1:15 PM. An EKG was recommended by the brusher tender. At 2 PM the nurse aide informed the nurse after performing an EKG on the patient, stating that patient's eyes are rolling in the back of her head and looked like seizure-like activity, with twitching of the extremities. When the charge nurse came to see the patient, patient was not verbally or physically responding to any questions or commands. Patient had a blank stare and would not look at the nurse when asked questions. Patient's blood glucose was 283. Blood pressure was 94/53, heart rate 74, saturation 82%. Patient had taken her 3 L of oxygen off. Stroke code was initiated at 2:02 PM. Patient's NIH stroke scale was reported at 16. Stroke team contacted stroke neurologist Dr. Dangelo, who recommended CT head, and CTA of head and neck. Computed tomography scan of head showed mild degenerative change with nonspecific white matter change could be on the basis of remote ischemia. If concern for acute ischemia, correlate with an MRI. Assessment for hemorrhage is limited due to severe motion artifact on several images. No gross acute intracranial hemorrhage is visualized. CTA of head and neck showed findings suggest a 50% stenosis of the proximal right ICA and 66% stenosis of the proximal left ICA. No sizable aneurysm or vascular malformation. M1 segment of the left MCA is somewhat diminutive in caliber. There is enhancement distally of the trifurcation branches. Recommend follow-up MRI MRA for further evaluation. I was not involved in the initial stroke management. However it appears TPA was contraindicated initially because of patient being on heparin, with therapeutic PTT of 44.1 as of this morning. It also appears that a stat PT/PTT were ordered. Patient was transferred to telemetry floor. Patient was not a candidate for mechanical thrombectomy as there was no large vessel occlusion. I was consulted about this patient at 4:20 PM. After reviewing the chart as above, came in to see the patient at 4:35 PM in room 358. Patient at that time was appearing extremely pale, cyanotic. Patient was not responding to calling her name or to deep stimuli. Patient was noted apneic, not breathing. LEA HOPSON was immediately called. Patient's home medications include Plavix 75 mg, Eliquis 2.5 mg twice a day, gabapentin 300 mg twice a day, Lipitor 40 mg, aspirin 81 mg, Zoloft 100 mg and hydrocodone 5/325 when necessary, Remeron 15 mg and temazepam 30 mg when necessary at bedtime. Patient in the hospital has been receiving aspirin and heparin drip up to the point of stroke code. Her Plavix and Eliquis has been h eld. Patient is scheduled for loading dose of Plavix 300 mg tomorrow before the vascular procedure. Patient's blood test shows PTT 44.1, WBC 11.23, hemoglobin 7.2, platelets 117. Sodium 134 potassium 6.5, BUN 77, creatinine 3.9. Hepatic panel is normal. Patient's coronavirus PCR was negative on admission on 08/18/2021. Patient's last hemoglobin A1c 6.7 on 05/28/2021. Lipid panel with cholesterol 83, LDL 35, HDL 37 and triglycerides 53. Patient's last 2-D echo from 05/26/2021 showed normal left-ventricular size. Moderate concentric LVH, EF is moderate to sever jose impaired 30-35%. Apical anterior, apical anterior, apical septum left- ventricular wall motion are hypokinetic. Left atrium is severely dilated. Review of Systems ROS unobtainable: due to mental status Past Medical History Past Medical History: Heart Failure, COPD, Diabetes Mellitus, Hyperlipidemia, Hypertension, Myocardial Infarction (CA), Musculoskeletal Disorder, Renal Disease, Sleep Apnea/CPAP/BIPAP, Thyroid Disorder Additional Past Medical History / Comment(s): Hemodialysis MWF from 12:30 to 4:30, CHF with diastolic heart failure, hypertension, chronic kidney disease stage III, coronary artery disease with previous bypass surgery, history of pacemaker insertion 2014, obstructive sleep apnea, thyroid nodules, , history of smoking in the order of [id number],no cpap Last Myocardial Infarction Date:: 05/26/21 History of Any Multi-Drug Resistant Organisms: None Reported Date of last positivie culture/infection: 10/18/19 MDRO Source:: ESBL URINE Past Surgical History: Appendectomy, Back Surgery, Bariatric Surgery, Coronary Bypass/CABG, Heart Catheterization, Hysterectomy, Pacemaker Additional Past Surgical History / Comment(s): LAP BAND insertion and removal, CATARACT LEFT EYE, NEUROMA ON FOOT, KNEE ARTHROSCOPY, PACEMAKER ([employer] 04/18/2015) Partial thyroidectomy 1999 Past Anesthesia/Blood Transfusion Reactions: No Reported Reaction Type of Cardiac Device: Permanent Pacemaker Device Placement Date:: 04/18/2015 [employer] Past Psychological History: No Psychological Hx Reported Smoking Status: Former smoker Past Alcohol Use History: None Reported Additional Past Alcohol Use History / Comment(s): Started smoking at age 15 quit smoking Jul 2021 Past Drug Use History: None Reported - Past Family History Son(s) Family Medical History: Cancer Additional Family Medical History / Comment(s): MELANOMA- Brother(s) Family Medical History: Cancer Father History Unknown: Yes Family Medical History: Cancer Mother Family Medical History: CVA/TIA Medications and Allergies Home Medications Medication Instructions Recorded Confirmed Type Mirtazapine 15 mg PO HS 11/17/20 08/18/21 History Temazepam 30 mg PO HS PRN 11/24/20 08/18/21 History Allopurinol [Zyloprim] 100 mg PO DAILY 05/01/21 08/18/21 History Ergocalciferol [Vitamin D2 (1250 1,250 mcg PO BONDS 05/01/21 08/18/21 History Mcg = 49110 Iu)] Insulin Detemir (Levemir) [Levemir] 25 unit SQ HS 05/01/21 08/18/21 History Insulin Lispro [humaLOG Kwikpen] See Protocol SQ AC-TID 05/01/21 08/18/21 History carvediloL [Coreg] 6.25 mg PO BID 05/08/21 08/18/21 History Torsemide [Demadex] 40 mg PO DAILY 30 Days #30 tablet 05/23/21 08/18/21 Rx Apixaban [Eliquis] 2.5 mg PO BID 08/14/21 08/18/21 History Calcium Acetate [PhosLo] 1,334 mg PO QID 08/14/21 08/18/21 History Atorvastatin [Lipitor] 40 mg PO DAILY tab 08/15/21 08/18/21 Rx Clopidogrel [Plavix] 75 mg PO DAILY tab 08/15/21 08/18/21 Rx Gabapentin [Neurontin] 300 mg PO BID #30 cap 08/15/21 08/18/21 Rx HYDROcodone/APAP 5-325MG [[place] 1 tab PO Q6HR PRN 3 Days #12 tab 08/15/21 08/18/21 Rx 5-325] Aspirin EC [Ecotrin Low Dose] 81 mg PO DAILY 08/18/21 08/18/21 History Sertraline [Zoloft] 100 mg PO DAILY 08/18/21 08/18/21 History Allergies Allergy/AdvReac Type Severity Reaction Status Date / Time sulfamethoxazole Allergy Anaphylaxis Verified 08/18/21 18:30 [From Bactrim] trimethoprim [From Bactrim] Allergy Anaphylaxis Verified 08/18/21 18:30 Physical Examination - Vital Signs Vital Signs: Vital Signs Temp Pulse Resp BP Pulse Ox 08/21/21 14:10 98.3 F 74 18 94/53 82 L 08/21/21 08:00 71 18 08/21/21 07:00 99.1 F 71 18 107/61 100 08/21/21 02:00 98.9 F 70 16 117/64 92 L 08/20/21 20:00 98.2 F 60 16 102/60 100 Intake and Output 08/21/21 08/21/21 08/21/21 06:59 14:59 22:59 Intake Total 242.5 Balance 242.5 Intake: Intake, IV Titration 242.5 Amount Heparin Sod,Pork in 0.45% 242.5 NaCl 25,000 unit In 0.45 % NaCl 1 250ml.bag @ 11. 191 UNITS/KG/HR 10 mls/hr IV .Q24H [facility] Rx#: [id number] Other: Voiding Method Diaper External Catheter # Voids 3 3 # Bowel Movements 1 When I came to see the patient, patient appeared moribund, extremely pale, cyanotic with shallow respiration. Patient was not responding to calling her name, or with deep painful stimuli. Patient's extremities were pale. Some bruises were noted, mild peripheral edema. Patient's pupils were 3 mm, not reacting. I informed the nurse. Patient was noted to not breathing at that time. CODE BLUE was initiated. Results - Laboratory Findings CBC and BMP: 08/20/21 04:46 08/20/21 04:46 Abnormal Lab Findings: Abnormal Labs 08/18/21 08/18/21 08/18/21 16:08 16:08 22:54 WBC RBC 3.05 L Hgb 9.8 L Hct 30.2 L MCV MCHC RDW Plt Count 130 L MPV Immature Gran # Neutrophils # Lymphocytes # (Manual) Metamyelocytes # (Man) 0.15 H APTT 69.8 H Sodium 135 L Potassium Carbon Dioxide 32 H BUN 48 H Creatinine 2.82 H Est GFR (CKD-EPI)AfAm Est GFR (CKD-EPI)NonAf Glucose POC Glucose (mg/dL) Calcium Iron TIBC Transferrin Total Bilirubin Creatine Kinase 200 H Total Protein 5.8 L Albumin 3.1 L Albumin/Globulin Ratio 08/19/21 08/19/21 08/19/21 01:45 04:18 04:18 WBC RBC 2.66 L Hgb 8.5 L Hct 27.4 L MCV 103.0 H MCHC RDW Plt Count 114 L MPV Immature Gran # Neutrophils # Lymphocytes # (Manual) 0.93 L Metamyelocytes # (Man) APTT Sodium 133 L Potassium Carbon Dioxide BUN 58 H Creatinine 3.31 H Est GFR (CKD-EPI)AfAm Est GFR (CKD-EPI)NonAf Glucose 273 H POC Glucose (mg/dL) 297 H Calcium 7.9 L Iron TIBC Transferrin Total Bilirubin Creatine Kinase Total Protein Albumin Albumin/Globulin Ratio 08/19/21 08/19/21 08/19/21 07:28 12:19 17:14 WBC RBC Hgb Hct MCV MCHC RDW Plt Count MPV Immature Gran # Neutrophils # Lymphocytes # (Manual) Metamyelocytes # (Man) APTT 57.0 H Sodium Potassium Carbon Dioxide BUN Creatinine Est GFR (CKD-EPI)AfAm Est GFR (CKD-EPI)NonAf Glucose POC Glucose (mg/dL) 225 H 262 H Calcium Iron TIBC Transferrin Total Bilirubin Creatine Kinase Total Protein Albumin Albumin/Globulin Ratio 08/19/21 08/19/21 08/19/21 17:14 17:24 20:01 WBC RBC Hgb Hct MCV MCHC RDW Plt Count MPV Immature Gran # Neutrophils # Lymphocytes # (Manual) Metamyelocytes # (Man) APTT Sodium Potassium Carbon Dioxide BUN Creatinine Est GFR (CKD-EPI)AfAm Est GFR (CKD-EPI)NonAf Glucose POC Glucose (mg/dL) 279 H 268 H Calcium Iron 49 L TIBC 183 L Transferrin 131.0 L Total Bilirubin Creatine Kinase Total Protein Albumin Albumin/Globulin Ratio 08/20/21 08/20/21 08/20/21 04:46 04:46 04:46 WBC 11.23 H RBC 2.41 L Hgb 7.2 L Hct 25.0 L MCV 103.7 H MCHC 28.8 L RDW 14.7 H Plt Count 117 L MPV 12.3 H Immature Gran # 0.06 H Neutrophils # 8.57 H Lymphocytes # (Manual) Metamyelocytes # (Man) APTT 50.0 H Sodium 134 L Potassium 6.5 H* Carbon Dioxide BUN 77.2 H Creatinine 3.9 H Est GFR (CKD-EPI)AfAm 11.8 L Est GFR (CKD-EPI)NonAf 10.2 L Glucose 131 H POC Glucose (mg/dL) Calcium 8.3 L Iron TIBC Transferrin Total Bilirubin 0.20 L Creatine Kinase Total Protein 5.2 L Albumin 3.1 L Albumin/Globulin Ratio 1.48 L 08/20/21 08/20/21 08/20/21 06:52 12:08 17:22 WBC RBC Hgb Hct MCV MCHC RDW Plt Count MPV Immature Gran # Neutrophils # Lymphocytes # (Manual) Metamyelocytes # (Man) APTT Sodium Potassium Carbon Dioxide BUN Creatinine Est GFR (CKD-EPI)AfAm Est GFR (CKD-EPI)NonAf Glucose POC Glucose (mg/dL) 163 H 117 H 272 H Calcium Iron TIBC Transferrin Total Bilirubin Creatine Kinase Total Protein Albumin Albumin/Globulin Ratio 08/20/21 08/21/21 08/21/21 20:04 05:12 06:49 WBC RBC Hgb Hct MCV MCHC RDW Plt Count MPV Immature Gran # Neutrophils # Lymphocytes # (Manual) Metamyelocytes # (Man) APTT 44.1 H Sodium Potassium Carbon Dioxide BUN Creatinine Est GFR (CKD-EPI)AfAm Est GFR (CKD-EPI)NonAf Glucose POC Glucose (mg/dL) 413 H 292 H Calcium Iron TIBC Transferrin Total Bilirubin Creatine Kinase Total Protein Albumin Albumin/Globulin Ratio 08/21/21 08/21/21 11:43 14:03 WBC RBC Hgb Hct MCV MCHC RDW Plt Count MPV Immature Gran # Neutrophils # Lymphocytes # (Manual) Metamyelocytes # (Man) APTT Sodium Potassium Carbon Dioxide BUN Creatinine Est GFR (CKD-EPI)AfAm Est GFR (CKD-EPI)NonAf Glucose POC Glucose (mg/dL) 282 H 283 H Calcium Iron TIBC Transferrin Total Bilirubin Creatine Kinase Total Protein Albumin Albumin/Globulin Ratio Assessment and Plan Assessment: * Probable acute ischemic stroke, left MCA territory, patient was not a candidate for TPA because of being on heparin drip with elevated PTT 44.1. Patient not a candidate for mechanical thrombectomy because of no large vessel occlusion. * Acute cardiac arrest with PEA, most likely not related to CVA, perhaps related to cardiac cause or other cardio-vascular causes. * End-stage renal disease on hemodialysis * Acute limb ischemia of the right foot, planned for bypass surgery on 08/22/2021 for vascular surgery. Patient on heparin drip. * Peripheral arterial disease * Known coronary artery disease with recent two cardiac stent placement. * History of ischemic cardiomyopathy, with EF 30-35% * Diabetes type 2 * History of pacemaker placement * History of tobacco use Plan: * Patient could not receive TPA because of being on heparin drip. She was not a candidate for mechanical thrombectomy, as there was no large vessel occlusion noted on CTA. * Repeat PT/PTT post stroke still pending at the time of initial evaluation. Repeat PTT 23.8 arrived at 4:44 PM, after patient already had a cardiac arrest at 4:38 PM. * Patient had cardiac arrest, likely related to some cardiac etiology or some other vascular cause. Doubt related to CVA. * Patient did not survive the CPR. * Family was notified by primary physician. * Discussed with Dr. Dangelo in detail. Time with Patient: Greater than 30
[2021-08-22] MEDS ORDERED: HYDROmorphone 0.5 MG/0.5 ML SYRINGE IVP PRN (07:00)
--- NOTE | 2021-08-22 08:28 | P.ARTDOP ---
Arterial Doppler LOWER EXTREMITY ARTERIAL DOPPLER: DATE OF SERVICE: 08/18/2021 Reason for study: Diabetic smoker with diminished pulses. Doppler waveforms: Atypical throughout on the left with flat line digital. The right femoral is atypical and posterior tibial is monophasic with flat line digital.. Pulse volume recording: []. Pressure gradients: The left ankle cannot be occluded. Significant gradient to the right ankle. Ankle-brachial indices: 0.32 on the right. The left cannot be occluded. Toe brachial indices: [] on the right, [] on the left Impression: Severe right femoral popliteal disease with iliac component. Moderate left fem-pop disease with possible iliac component. Vascular specialty consultation should be considered if ulceration or pain is present
[2021-08-22] MEDS ORDERED: CLOPIDOGREL 75 MG TAB PO ONE (18:00)
[2021-08-23] MEDS ORDERED: CLOPIDOGREL 75 MG TAB PO SCH (09:00)
== END 2021-08-21 22:25 | disposition expired | DRG 299 ==
LOC: EC 14:15 → 5NMEDONC 19:37 → 6NMEDSUR 23:30 → 3SCARD 08-21 15:13
PROVIDERS: ADMIT Internal Medicine; ATTEND Internal Medicine
PROC: 5A1D70Z Performance of Urinary Filtration, Intermittent, Less than 6 Hours Per Day (ICD-10-PCS; principal; 2021-08-20)
PROC: 5A12012 Performance of Cardiac Output, Single, Manual (ICD-10-PCS; 2021-08-21)
DX: I70.221 Atherosclerosis of native arteries of extremities with rest pain, right leg (principal); N18.6 End stage renal disease; I63.513 Cerebral infarction due to unspecified occlusion or stenosis of bilateral middle cerebral arteries; I13.2 Hypertensive heart and chronic kidney disease with heart failure and with stage 5 chronic kidney disease, or end stage renal disease; I50.32 Chronic diastolic (congestive) heart failure; I48.21 Permanent atrial fibrillation; I77.4 Celiac artery compression syndrome; E11.51 Type 2 diabetes mellitus with diabetic peripheral angiopathy without gangrene; D63.1 Anemia in chronic kidney disease; E11.22 Type 2 diabetes mellitus with diabetic chronic kidney disease; E78.5 Hyperlipidemia, unspecified; E87.5 Hyperkalemia; G62.9 Polyneuropathy, unspecified; I25.10 Atherosclerotic heart disease of native coronary artery without angina pectoris; I25.2 Old myocardial infarction; I25.5 Ischemic cardiomyopathy; I46.9 Cardiac arrest, cause unspecified; G47.33 Obstructive sleep apnea (adult) (pediatric); M21.371 Foot drop, right foot; I77.89 Other specified disorders of arteries and arterioles; I70.1 Atherosclerosis of renal artery; R29.716 NIHSS score 16; Z99.2 Dependence on renal dialysis; Z95.5 Presence of coronary angioplasty implant and graft; Z95.1 Presence of aortocoronary bypass graft; Z95.0 Presence of cardiac pacemaker; Z90.710 Acquired absence of both cervix and uterus; Z87.891 Personal history of nicotine dependence; Z86.711 Personal history of pulmonary embolism; Z82.3 Family history of stroke; Z80.8 Family history of malignant neoplasm of other organs or systems; Z79.899 Other long term (current) drug therapy; Z79.82 Long term (current) use of aspirin; Z79.4 Long term (current) use of insulin; Z79.02 Long term (current) use of antithrombotics/antiplatelets; Z79.01 Long term (current) use of anticoagulants
CPT/HCPCS: 36415; 70450; 70496; 70498; 75635; 80048; 80053; 82550; 83540; 83550; 83605; 85025; 85610; 85730; 86850; 86900; 86901; 87635; 90935; 93922